=== PATIENT | female | born 1940 | race Caucasian/White ===

== ENCOUNTER 2019-03-07 11:24 | Emergency (ER) | payer MEDICARE ==
[~2019-03-07] VITALS: Ht 162.6 cm; Wt 93.4 kg
--- OUTSIDE RECORDS SUMMARY | ~2019-03-07 | XMS | Encounter Summary ---
Demographics + + + | Address | [address] | | | [place] [address] | + + + | Home Phone | | + + + | Preferred Language | Unknown | + + + | Marital Status | | + + + | Scientology Affiliation | Unknown | + + + | Race | White | + + + | Ethnic Group | Not or | + + + Author + + + | Author | [facility] | + + + | Organization | [facility] | + + + | Address | Unknown | + + + | Phone | Unavailable | + + + Support + + + + + | Name | Relationship | Address | Phone | + + + + + | Geoffrey Castillo | RENAE | [place] | | + + + + + Care Team Providers + +------+ + | Care Health Services Rn Name | Role | Phone | + +------+ + PCP | Unavailable | + +------+ + Encounter Details +--------+ + + + + | Date | Type | Department | Care Team | Description | +--------+ + + + + | 07/27/ | Office | [facility] | Note, Outpatient | Progress Note | | 1997 | Visit-Trans | MEDICINE | Clinic | | | | cribed | | | | +--------+ + + [...] documented as of this encounter Progress Notes Interface, Customer Service Security Officer In - 10/22/2006 1:06 AM PSTCLINIC DATE: 07/27/1998 PLASTIC SURGERY CLINIC SUBJECTIVE: Ms. Castillo returns today for follow-up of her left calf wound. Since her last visit, the wound has decreased in size substantially and appears to be healing very well. All of the areas of undermining have closed completely. The wound is now approximately 6 cm in length and 10-14 mm wide. There is no evidence of infection. She has fairly significant venous insufficiency of this leg with pitting edema. The patient will continue simple wound care of this wound and it may well heal on its own over the next several months. She is eager to try this rather than skin grafting. The patient will be changed to kerasol gel on the wound with overlying gauze and Kerlix wrap and to keep the bandage on her leg at all times. In addition, she will elevate her leg as much as possible. She will follow-up in two months time unless the wound has spontaneously healed, at which time she will cancel her further appointments. Kavon Melton M.D. Land Lease Information Clerk, Plastic and Reconstructive Surgery TOREY/nevin d ocumented in this encounter Plan of Treatment Not on filedocumented as of this encounter Visit Diagnoses Not on filedocumented in this encounter"
--- OUTSIDE RECORDS SUMMARY | ~2019-03-07 | XMS | Encounter Summary ---
Demographics + + + | Address | [address] | | | [place] [address] | + + + | Home Phone | | + + + | Preferred Language | Unknown | + + + | Marital Status | | + + + | Sabianism Affiliation | 1027 | + + + | Race | Unknown | + + + | Ethnic Group | Unknown | + + + Author + + + | Author | [facility] | | | and [place] | + + + | Organization | [facility] | | | [...] Team Providers + +------+ + | Care Leather Tooler Name | Role | Phone | + +------+ + | Jesus Mijares MD | PCP | Unavailable | + +------+ + Reason for Referral Diagnostic/Screening (Routine) +--------+--------+ + + + + | Status | Reason | Specialty | Diagnoses / | Referred By | Referred To | | | | | Procedures | Contact | Contact | +--------+--------+ + + + + | Closed | | Radiology | Diagnoses | | | | | | | | [place], | | | | | | Trochanteric | Nilson Jensen MD | | | | | | bursitis, | [address] | | | | | | right hip | [place] | | | | | | Procedures | [place] | | | | | | [place] | [address] | | | | | | and/or Inj | Phone: | | | | | | Major Joint | [phone] | | | | | | Right | Fax: | | | | | | | [phone] | | +--------+--------+ + + + + Encounter Details +--------+ + + + + | Date | Type | Department | Care Team | Description | +--------+ + + + + | 03/03/ | Orders Only | [facility] | Nilson Chaudhry | Trochanteric | | 2019 | | PHYSIATRY [address] Naida Jensen MD [address] | bursitis, right hip | | | | [place], | [place] | (Primary Dx) | | | | [place] [address] | [address] | | | | | [phone] | | | +--------+ + + + [...] + +---------+ + | Alcohol Use | Drinks/We | oz/Week | Comments | | | ek | | | + + +---------+ + | No [...] | +--------+ + + + + | 06/02/ | Office | Physical Medicine | Capo Bermudez, | | | 2018 | Visit | and Rehabilitation | [address] | | | | | | [address] [place] | | | | | | [place] [address] | | | | | | [phone] | | | | | | | | +--------+ + + + + | 06/02/ | Appointment | Radiology | Capo Bermudez, | | | 2018 | | | JOHN-C [address] | | | | | | [address] [place] | | | | | | [place] [address] | | | | | | [phone] | | | | | | | | | | | | [employer]creational Facilities Motel ManagerJaspal | | +--------+ + + + + documented as of this encounter Results FL Asp and/or Inj Major Joint Right (03/03/2019 14:50 PDT) + + | Specimen | + + | | + + + + -+ | Narrative | Performed At | + + -+ | | [facility] | | 03/03/2019 TROCHANTERIC BURSA INJECTION CLINICAL HISTORY: ICD-10 CODES | | | M70.61, RIGHT TROCHANTERIC BURSITIS Rebecca Castillo presents to the | | | fluoroscopy suite for a fluoroscopically-guided trochanteric bursa | | | injection as part of conservative management for chronic pain and | | | trochanteric bursitis. After informed consent was obtained, the | | | patient laid in the supine position on the fluoroscopy table. The | | | greater trochanter was located under fluoroscopic guidance. The area | | | was prepped and draped in a sterile fashion. Then a 25-gauge 1.5 inch | | | needle was inserted into the region and approximately 3 mL buffered 1% | | | lidocaine was infused. Next a 3.5 inch 22-gauge spinal needle was | | | inserted into the bursa under fluoroscopic guidance. Confirmation into | | | the bursa was obtained with infusion of approximately 1 mL Omnipaque | | | contrast. Then, a combination of 1 mL of 40 mg/mL Kenalog and 4 mL 1% | | | lidocaine was infused. The patient tolerated the procedure well | | | without complications. Pre- and post-procedure blood pressure was | | | stable. The patient was given verbal as well as written followup | | | instructions. The patient reported some improvement in pain symptoms | | | post-procedure. Prior to the start of the procedure, the following | | | were performed or verified, including correct patient identity, | | | correct site/side marked and verified, agreement of the procedure to | | | be done, correct patient positioning and an accurate procedure consent | | | form. Any safety precautions based on clinical history and/or | | | medication use have been addressed. I personally performed the | | | procedure above. Estimated blood loss: MinimalComplications: | | | NoneFindings: As expectedAnesthesia: Local 1% Lidocaine | | |verified, agreement of the procedure to be done, correct patient | | |positioning and an accurate procedure consent form. Any safety precautions | | | | | |based on clinical history and/or medication use have been addressed. | | | | | |I personally performed the procedure above. | | | [...] + | Diagnosis | + + | Trochanteric bursitis, right hip - Primary | + + documented in this encounter"
--- OUTSIDE RECORDS SUMMARY | ~2019-03-07 | XMS | Encounter Summary ---
Demographics + + + | Address | [address] | | | [place] [address] | + + + | Home Phone | | + + + | Preferred Language | Unknown | + + + | Marital Status | | + + + | Adventist Affiliation | Unknown | + + + | Race | White | + + + | Ethnic Group | Not or | + + + Author + + + | Author | [facility] | + + + | Organization | [facility] | + + + | Address [...] Team Providers + +------+ + | Care Senior Mechanical Development Engineer Name | Role | Phone | + +------+ + PCP | Unavailable | + +------+ + Encounter Details +--------+ + + + + | Date | Type | Department | Care Team | Description | +--------+ + + + + | 08/11/ | Office | [facility] | Note, Outpatient | Progress Note | | 2000 | Visit-Trans | MEDICINE | Clinic | [...] as of this encounter Progress Notes Interface, Sign Wirer In - 07/17/2006 3:06 AM PDTCLINIC DATE: 08/11/2001 OTOLARYNGOLOGY CLINIC Rebecca is a 61-year-old woman who is seen because of left-sided conductive hearing loss. She has an air-bone gap of about 30 or 40 dB on that side. She had a previous discussion about possibility of this representing otosclerosis and her fact that she was eligible for an exploration of the ear. We again reviewed all the PAR workup on her. She had no questions. We discussed the approach of the surgery at great length. She is to be done under general anesthesia in the morning. Jayson Mccoy M.D. SHAJI / CHARY [id number] / [id number] / [id number] / [id number] signed by Interface, Sign Wirer In at 07/17/2006 3:06 AM PDTdoc umented in this encounter Plan of Treatment Not on filedocumented as of this encounter Visit Diagnoses Not on filedocumented in this encounter"
--- OUTSIDE RECORDS SUMMARY | ~2019-03-07 | XMS | Clinical Summary ---
Demographics + + + | Address | [address] | | | [place] [address] | + + + | Home Phone | | + + + | Preferred Language | Unknown | + + + | Marital Status | | + + + | Mu-Ism Affiliation | Unknown | + + + | Race | White | + + + | Ethnic Group | Not or | + + + Author + + + | Author | [facility] | + + + | Organization | [facility] | + + + | Address | Unknown | + + + | Phone | Unavailable | + + + Support + + + + + | Name | Relationship | Address | Phone | + + + + + | Geoffrey Castillo | ECON | [place] | | + + + + + Care Team Providers + +------+ + | Care Brick And Block Mason Name | Role | Phone | + +------+ + PP | Unavailable | + +------+ + Source Comments CHAPITO is fully live on both [facility] and [facility] Allergies Not on File Medications Not on file Active Problems Not on file Social History + +-------+ +--------+------+ | Tobacco [...] recent travel history available. | + + Plan of Treatment + + + + + | Health Maintenance | Due Date | Last Done | Comments | + + + + + | Pneumococcal (Adult) | 02/25/ | | | | (1 of 2 - PCV13) | 7 | | | + + + + + | Influenza (Flu) | | | | | vaccination (Season | 9 | | | | Ended) | | | | + + + + + Results Not on filefrom Last 3 Months"
--- OUTSIDE RECORDS SUMMARY | ~2019-03-07 | XMS | Encounter Summary ---
Demographics + + + | Address | [address] | | | [place] [address] | + + + | Home Phone | | + + + | Preferred Language | Unknown | + + + | Marital Status | | + + + | Congregational Affiliation | 1027 | + + + [...] Team Providers + +------+ + | Care Rn Palliative Name | Role | Phone | + +------+ + | Jesus Mijares MD | PCP | Unavailable | + +------+ + Reason for Referral Evaluate & Treat (Routine) + + + + + + + | Status | Reason | Specialty | Diagnoses / | Referred By | Referred To | | | | | Procedures | Contact | Contact | + + + + + + + | Authorized | Specialty | Orthopedic | Diagnoses | [place], | [facility] | | | Services | Surgery | Rotator | GAMALIEL Scanlon | Orthopedic | | | Required | | cuff | [address] | | | | | syndrome of | [address] | [address] | | | | | both | [address] | [place], | | | | | shoulders | [place], | [place] | | | | | Chronic left | [place] [address] | [address] | | | | | shoulder | Phone: | Phone: | | | | | pain | [phone] | [phone] | | | | | | Fax: | Fax: | | | | | | [phone] | [phone] | + + + + + + + Reason for Visit + + + | Reason | Comments | + + + | Follow-up | Same Day Injection: BILATERAL L4/L5 TFESI | + + + Encounter Details +--------+---------+ + + + | Date | Type | Department | Care Team | Description | +--------+---------+ + + + | 03/03/ | Office | [facility] | Capo Bermudez, | Lumbar radiculopathy | | 2019 | Visit | PHYSIATRY [address] | PA-C [address] | (Primary Dx); | | | | [place], | [address] [place] | Rotator cuff | | | | [place] [address] | [place] [address] | syndrome of both | | | | [phone] | [phone] | shoulders; Chronic | | | | | | left shoulder pain; | | | | | | Elevated INR | +--------+---------+ + + + Social History [...] Filed Vital Signs + + + + | Vital Sign | Reading | Time Taken | + + + + | Blood Pressure | 120/79 | 03/03/20191304 PDT | + + + + | Pulse | 108 | 03/03/20191304 PDT | + + + + | Temperature | - | - | + + + + | Respiratory Rate | - | - | + + + + | Oxygen Saturation | - | - | + + + + | Inhaled Oxygen | - | - | | Concentration | | | + + + + | Weight | 72.6 kg (160 lb) | 03/03/20191304 PDT | + + + + | Height | 162.6 cm (5' 4") | 03/03/2019 1305 PDT | + + + + | Body Mass Index | 27.46 | 03/03/2019 1305 PDT | + + + + documented in this encounter Patient Instructions Patient Instructions Capo Bermudez PA-C - 03/03/2019 13:00 PDTReturn in 3 months for repea t injections. Referral to orthopedic surgeon placed today for left/right shoulder pain. Possible Causes of Low Back or Leg Pain BIG: The symptoms in your back or leg may be due to pressure on a nerve. This pressure may be caused by a damaged disk or by abnormal bone growth. Either way, you may feel pain, burni ng, tingling, or numbness. If you have pressure on a nerve that connects to the sciatic nerv e, pain may shoot down your leg. Pressure from the disk Constant wear and tear can weaken a disk over time and cause back pain. The disk can then b e damaged by a sudden movement or injury. If its soft center starts to bulge, the disk may p ress on a nerve. Or the outside of the disk may tear, and the soft center may squeeze throug h and pinch a nerve. Pressure from bone As a disk wears out, the vertebrae right above and below the disk start to touch. This can put pressure on a nerve. Often, abnormal bone (called bone spurs) grows where the vertebrae rub against each other. This can cause the foramen or the spinal canal to narrow (called andrzej nosis) and press against a nerve. Date Last Reviewed: 12/12/201719993171-7782 [employer]. [address] [place] [address], [place] [address]. All [facility] ts reserved. This information is not intended as a substitute for professional medical care. Always follow your healthcare professional's instructions. documented in this encounter Progress Notes Capo Bermudez PA-C - 03/03/2019 1300 PDTFormatting of this note might be different from [facility] original. CHIEF COMPLAINT: Chief Complaint Patient presents with Follow-up Same Day Injection: BILATERAL L4/L5 TFESI HISTORY OF PRESENT ILLNESS: The patient is a 79 y.o. female being seen today in follow-up for complaints of low back pa in, trochanteric bursa injection and right subacromial bursa injection, and same day bilater al L4/5 TFESI. Previously it was recommended that she receive bilateral L4/L5 epidural inje ction for spinal stenosis. She last received this last 11/2018. She reports excellent relief for 3 months. She also reports bilateral shoulder pain. She describes the pain as a constant dull with occasional sharpness depending on movement. Her symptoms worsen with standing and walking and lying on her sides at night. Her symptom s improve with rest, sitting down. She has a hard time standing for long periods in her ki tchen. The patient does describe numbness of the bilateral lower extremities, but reports to have diabetic neuropathy, and does report this improved after the surgery. She does report weakness of the bilateral legs, but reports again this did improve after [facility] surgery. The patient does not report recent falls or trauma. She does not have bowel and bladder dysfunction. She does not have saddle anesthesia. Treatments for these complaints have included 8 weeks of physical therapy after her lumbar fusion. Lumbar [place] L4/L5 [place] [address] Yong Pena in [place], use of hydrocodone 3 x/day and flexeril, [...] updated as appropriate. CURRENT MEDICATIONS: Current Outpatient Medications Medication Sig Dispense Refill acetaminophen (TYLENOL) 500 mg tablet Take 500 mg by mouth every 6 hours as needed for Pain. allopurinol (ZYLOPRIM) 100 mg tablet TAKE ONE TABLET BY MOUTH ONCE DAILY amitriptyline (ELAVIL) 25 mg tablet Take 25 [...] mg tablet Take 25 mg by mouth. magnesium chloride (MAG64) 64 mg EC tablet Take 128 mg by mouth. potassium chloride (KLOR-CON M20) 20 mEq ER tablet Take 20 mEq by mouth. sotalol (BETAPACE) 80 mg tablet Take 80 mg by mouth 2 times daily. torsemide (DEMADEX) 20 mg tablet Take 20 mg by mouth 3 times daily. traZODone (DESYREL) 50 mg tablet Take 100 mg by mouth nightly. warfarin (COUMADIN) 4 MG tablet Take 4 mg by mouth Daily. 4mg daily Saturday, 6 mg rest of the days No current facility-administered medications for this visit. ALLERGIES: Allergies Allergen Reactions Sitagliptin Rash Penicillin V Potassium Sulfa Antibiotics REVIEW OF [...] HEMATOLOGIC/LYMPHATIC: No abnormal bleeding PHYSICAL EXAMINATION: Vitals: 03/03/19 1305 BP: 120/79 Pulse: 108 PainSc: 8 PainLoc: Back INR level today : 1.0 GENERAL: The patient is well developed and [...] has no apparent deficits with short or nursing home memory. She has appropriate fund of [...] facet loading was positive. Strength testing showed 4/5 strength throughout the lower extremities. The patient was unable to heel and toe walk without difficulty. [...] multi-level facet arthritis. ASSESSMENT: 1. Lumbar radiculopathy PLAN: 1. Patient will undergo L4/L5 bilateral epidural injections today as this has worked in past. The patient has had significant conservative care including medications (NSAIDS and narcoti cs), PT (multiple sessions over the years) and respiratory care program director. Unfortunately she continue s to have significant discomfort. It appears to me that the pain is primarily coming from t he central spinal stenosis at L3/L4. I did feel that she would be a good candidate for inte rventional procedures as the last epidural injection greatly helped. 2. INR today was: 1.0 3. Patient will follow up in 3 months for repeat procedure. I encouraged her to complete DE XA scan prior to next appt. . Repeat bilateral L4-5 TFESI ordered to be done in May 2019. 4. Patient was referred to orthopedics for bilateral shoulder eval. Left shoulder xrays ord ered today. I spent 30 minutes in visit with Rebecca Castillo today with the majority of time spent coun selling the patient on her diagnosis, options for her care, and coordinating her care. ELECTRONICALLY SIGNED BY: Capo Bermudez PA-C, 03/03/2019 CC:Jesus Mijares MD 13 :40 PDTdocumented in this encounter Plan of Treatment +--------+ + + + + | Date | Type | Specialty | Care Team | Description | +--------+ + + + + | 06/02/ | Office | Physical Medicine | Capo Bermudez, | | | 2019 | Visit | and Rehabilitation | PA-C [address] | | | | | | [address] [place] | | | | | | [place] [address] | | | | | | [phone] | | | | | | | | +--------+ + + + + | 06/02/ | Appointment | Radiology | Capo Bermudez, | | | 2019 | | | PA-C [address] | | | | | | [address] [place] | | | | | | [place] [address] | | | | | | [phone] | | | | | | | | | | | | [employer], [facility] | | +--------+ + + + + + +--------+ + + | Name | Priori | Associated Diagnoses | Order Schedule | | | ty | | | + +--------+ + + | XR Shoulder Left 2 + Vw | Routin | Chronic left | Expected: | | | e | shoulder pain | 03/03/2019, Expires: | | | | | 03/03/2020 | + +--------+ + + | FL SRINIVAS Lumbar Transforaminal | Routin | Lumbar | Expected: | | | e | radiculopathy | 03/03/2019, Expires: | | | | | 03/03/2020 | + +--------+ + + | POC Fingerstick INR | Routin | Elevated INR | Ordered: 03/03/2019 | | | e | | | + +--------+ + + + +--------+ + + | Name | Priori | Associated Diagnoses | Order Schedule | | | ty | | | + +--------+ + + | * [facility] Orthopedic Surgery - | Routin | Rotator cuff | Ordered: 03/03/2019 | | AMB Referral | e | syndrome of both | | | | | shoulders Chronic | | | | | left shoulder pain | | + +--------+ + + documented as of this encounter Visit Diagnoses + + | Diagnosis | + + | Lumbar radiculopathy - Primary Thoracic or lumbosacral neuritis or radiculitis, | | unspecified | + + | Rotator cuff syndrome of both shoulders | + + | Chronic left shoulder pain Pain in joint, shoulder region | + + | Elevated INR Abnormal coagulation profile | + + documented in this encounter
--- OUTSIDE RECORDS SUMMARY | ~2019-03-07 | XMS | Encounter Summary ---
Demographics + + + | Address | [address] | | | [place] [address] | + + + | Home Phone | | + + + | Preferred Language | Unknown | + + + | Marital Status | | + + + | Jainism Affiliation | 1027 | + + + | Race | Unknown | + + + | Ethnic Group | Unknown | + + + Author + + + | Author | [facility] [employer] | + + + | Organization | [facility] | + + + | Address | [...] | | + + +---------+ + | David Mariano | ECON | Unknown | | + + +---------+ + Care Team Providers + +------+ + | Care Suit Maker Name | Role | Phone | + +------+ + | Jesus Mijares MD | PCP | Unavailable | + +------+ + Encounter Details +--------+ + + + + | Date | Type | Department | Care Team | Description | +--------+ + + + + | 12/08/ | Orders Only | [facility] | [place], | CKD (chronic kidney | | 2019 | | [address] | [place] | disease) stage 3, | | | | [address] | | GFR 30-59 ml/min; | | | | [place] [address] | | Essential | | | | [phone] | | hypertension, | | | | | | benign; | | | | | | Hypomagnesemia; | | | | | | Hypokalemia | +--------+ + + + + Social [...] + + +---------+ + | No | 0 | 0.0 | | | | Standard | | | | | drinks or | | | | | | | | | | equivalen | | | | | t | | | + + +---------+ + + + + | Sex Assigned at | Date Recorded | | | | + + + | Not on file | | + + + as of this encounter Plan of Treatment +--------+ + + + + | Date | Type | Specialty | Care Team | Description | +--------+ + + + + | 03/24/ | Office | Cardiology | Rajendra Fowler, | | | 2019 | Visit | | MD [address] | | | | | | [place], | | | | | | [place] [address] | | | | | | [phone] | | | | | | | | +--------+ + + + + | 06/11/ | Documentati | Cardiology | | | | 2018 | on Only | | | | +--------+ + + + + | 09/01/ | Office | Cardiology | Mary Moe NP | | | 2019 | Visit | | [address] | | | | | | [place] | | | | | | [address] | | | | | | | | +--------+ + + + + | 09/01/ | Documentati | Cardiology | | | | 2019 | on Only | | | | +--------+ + + + + | 09/10/ | Documentati | Cardiology | | | | 2019 | on Only | | | | +--------+ + + + + | 12/10/ | Documentati | Cardiology | | | | 2019 | on Only | | | | +--------+ + + + + as of this encounter Procedures + +--------+ + + + | Procedure Name | Priori | Date/Time | Associated Diagnosis | Comments | | | ty | | | | + +--------+ + + + | PROTEIN / CREATININE | Routin | 12/05/2018 | CKD (chronic | Results for this | | RATIO, URINE | e | 12:30 PM | kidney disease) | procedure are in the | | | | PST | stage 3, GFR 30-59 | results section. | | | | | ml/min Essential | | | | | | hypertension, benign | | | | | | Hypomagnesemia | | | | | | Hypokalemia | | + +--------+ + + + | CBC W/AUTO DIFF | Routin | 12/05/2018 | CKD (chronic | Results for this | | (REFLEX TO MANUAL) | e | 12:30 PM | kidney disease) | procedure are in the | | | | PST | stage 3, GFR 30-59 | results section. | | | | | ml/min Essential | | | | | | hypertension, benign | | | | | | Hypomagnesemia | | | | | | Hypokalemia | | + +--------+ + + + | PTH INTACT NO | Routin | 12/05/2018 | CKD (chronic | Results for this | | CALCIUM | e | 12:30 PM | kidney disease) | procedure are in the | | | | PST | stage 3, GFR 30-59 | results section. | | | | | ml/min Essential | | | | | | hypertension, benign | | | | | | Hypomagnesemia | | | | | | Hypokalemia | | + +--------+ + + + | MAGNESIUM | Routin | 12/05/2018 | CKD (chronic | Results for this | | | e | 12:30 PM | kidney disease) | procedure are in the | | | | PST | stage 3, GFR 30-59 | results section. | | | | | ml/min Essential | | | | | | hypertension, benign | | | | | | Hypomagnesemia | | | | | | Hypokalemia | | + +--------+ + + + | RENAL FUNCTION PANEL | Routin | 12/05/2018 | CKD (chronic | Results for this | | | e | 12:30 PM | kidney disease) | procedure are in the | | | | PST | stage 3, GFR 30-59 | results section. | | | | | ml/min Essential | | | | | | hypertension, benign | | | | | | Hypomagnesemia | | | | | | Hypokalemia | | + +--------+ + + + in this encounter Results Protein / creatinine ratio, urine (12/05/2018 12:30 PM) + +-------+ + + | Component | Value | Ref Range | Performed At | + +-------+ + + | UR | 141.7 | 0 - 150 | [facility] | | PROTEIN/CREATININE | | | LABORATORY | + +-------+ + + + + | Specimen | + + | Urine | + + + + + + + | Performing | Address | City/State/Zipcode | Phone Number | | Organization | | | | + + + + + | [facility] | [address] | [place] [address] | [phone] | | LABORATORY | [address] | | | + + + + + Renal function panel (12/05/2018 12:30 PM) + +---------+ + + | Component | Value | Ref Range | Performed At | + +---------+ + + | GLUCOSE | 117 (A) | 70 - 100 mg/dL | [facility] | | | | | LABORATORY | + +---------+ + + | BUN | 19 | 6 - 23 mg/dL | [facility] | | | | | LABORATORY | + +---------+ + + | CREATININE | 0.87 | 0.70 - 1.18 mg/dL | [facility] | | | | | LABORATORY | + +---------+ + + | PHOSPHORUS | 4.1 | 2.5 - 5.0 mg/dL | [facility] | | | | | LABORATORY | + +---------+ + + | Albumin | 4.0 | 3.5 - 5.0 | [facility] | | | | | LABORATORY | + +---------+ + + | SODIUM | 143 | 132 - 143 mmol/L | [facility] | | | | | LABORATORY | + +---------+ + + | POTASSIUM | 4.2 | 3.6 - 5.1 mmol/L | [facility] | | | | | LABORATORY | + +---------+ + + | CHLORIDE | 98 | 95 - 112 mmol/L | [facility] | | | | | LABORATORY | + +---------+ + + | CO2 | 30 | 19 - 31 mmol/L | [facility] | | | | | LABORATORY | + +---------+ + + | ANION GAP AGAP | 19.2 | 7 - 21 mmol/L | [facility] | | | | | LABORATORY | + +---------+ + + | GFR MDRD Non Af Amer | | | [facility] | | | | | LABORATORY | + +---------+ + + | Phosphorus,Inorganic | | | [facility] | | | | | LABORATORY | + +---------+ + + | BUN/CREAT | 21.8 | 6.0 - 28.6 | [facility] | | | | | LABORATORY | + +---------+ + + | CALCIUM | 9.9 | 8.5 - 10.3 mg/dL | [facility] | | | | | LABORATORY | + +---------+ + + | EGFR | 63 | 60 - 140 mg/dL | [facility] | | | | | LABORATORY | + +---------+ + + + + | Specimen | + + | Blood | + + + + + + + | Performing | Address | City/State/Zipcode | Phone Number | | Organization | | | | + + + + + | [facility] | [address] | [place] [address] | [phone] | | LABORATORY | [address] | | | + + + + + Magnesium (12/05/2018 12:30 PM) + +-------+ + + | Component | Value | Ref Range | Performed At | + +-------+ + + | MAGNESIUM | 1.7 | 1.7 - 2.5 mg/dL | [facility] | | | | | LABORATORY | + +-------+ + + + + | Specimen | + + | Blood | + + + + + + + | Performing | Address | City/State/Zipcode | Phone Number | | Organization | | | | + + + + + | [facility] | [address] | [place] [address] | [phone] | | LABORATORY | [address] | | | + + + + + CBC W/Auto Diff (Reflex to Manual) (12/05/2018 12:30 PM) + + + + + | Component | Value | Ref Range | Performed At | + + + + + | WBC | 8.6 | 4.5 - 11.0 10^3/mL | [facility] | | | | | LABORATORY | + + + + + | RBC | 4.47 | 3.8 - 5.1 10^6/ L | [facility] | | | | | LABORATORY | + + + + + | HGB | 14.2 | 12.0 - 16.0 g/dL | [facility] | | | | | LABORATORY | + + + + + | HCT | 41.8 | 35 - 45 % | [facility] | | | | | LABORATORY | + + + + + | MCV | 93.6 | 81 - 99 fL | [facility] | | | | | LABORATORY | + + + + + | MCH | 32 | 27 - 33 pg | [facility] | | | | | LABORATORY | + + + + + | MCHC | 34 | 30 - 36 g/dL | [facility] | | | | | LABORATORY | + + + + + | PLT | 271 | 140 - 440 K/ L | [facility] | | | | | LABORATORY | + + + + + | RDW SD | 13.2 | 10.5 - 15.0 % | [facility] | | | | | LABORATORY | + + + + + | MPV | | fL | [facility] | | | | | LABORATORY | + + + + + | DIFF TYPE | | | [facility] | | | | | LABORATORY | + + + + + | NEUTROPHILS | 69.3 | 39 - 80 % | [facility] | | | | | LABORATORY | + + + + + | LYMPHOCYTES | 21.0 (A) | 24 - 44 % | [facility] | | | | | LABORATORY | + + + + + | MONOCYTES | 7.7 | 0 - 12 % | [facility] | | | | | LABORATORY | + + + + + | EOSINOPHILS | 1.2 | 0 - 6 % | [facility] | | | | | LABORATORY | + + + + + | BASOPHILS | 0.8 | 0 - 2 % | [facility] | | | | | LABORATORY | + + + + + | NEUTROPHILS ABS | | / L | [facility] | | | | | LABORATORY | + + + + + | LYMPHOCYTES ABS | | / L | [facility] | | | | | LABORATORY | + + + + + | MONOCYTES ABS | | / L | [facility] | | | | | LABORATORY | + + + + + | EOSINOPHILS ABS | | / L | [facility] | | | | | LABORATORY | + + + + + | BASOPHILS ABS | | / L | [facility] | | | | | LABORATORY | + + + + + + + | Specimen | + + | Blood | + + + + + + + | Performing | Address | City/State/Zipcode | Phone Number | | Organization | | | | + + + + + | [facility] | [address] | [place] [address] | [phone] | | LABORATORY | [address] | | | + + + + + PTH intact no calcium (12/05/2018 12:30 PM) + +-------+ + + | Component | Value | Ref Range | Performed At | + +-------+ + + | PTH INTACT NO | 58.35 | 15 - 65 pg/mL | [facility] | | CALCIUM | | | LABORATORY | + +-------+ + + + + | Specimen | + + | Blood | + + + + + + + | Performing | Address | City/State/Zipcode | Phone Number | | Organization | | | | + + + + + | [facility] | [address] | [place] [address] | [phone] | | LABORATORY | [address] | | | + + + + + in this encounter Visit Diagnoses + + | Diagnosis | + + | CKD (chronic kidney disease) stage 3, GFR 30-59 ml/min | + + | Essential hypertension, benign | + + | Hypomagnesemia | + + | Disorders of magnesium metabolism | + + | Hypokalemia | + + | Hypopotassemia | + +"
--- OUTSIDE RECORDS SUMMARY | ~2019-03-07 | XMS | Encounter Summary ---
Demographics + + + | Address | [address] | | | [place] [address] | + + + | Home Phone | | + + + | Preferred Language | Unknown | + + + | Marital Status | | + + + | Zoroastrian Affiliation | Unknown | + + + | Race | White | + + + | Ethnic Group | Not or | + + + Author + + + | Author | [facility] | + + + | Organization | [facility] | + + + | Address | [...] Providers + +------+ + | Care Director Safety Council Name | Role | Phone | + +------+ + PCP | Unavailable | + +------+ + Encounter Details +--------+ + + + + | Date | Type | Department | Care Team | Description | +--------+ + + + + | 07/24/ | Office | [facility] | Note, [...] as of this encounter Progress Notes Interface, Multiskill Operator In - 07/17/2006 3:06 AM PDTCLINIC DATE: 07/24/2001 OTOLARYNGOLOGY CLINIC SUBJECTIVE: Mrs. Castillo is a 61-year-old woman who is being seen because of progressive hearing loss in the left ear. This has been going on for 15 plus years. She has had no hearing loss on the right. She has noted difficulty in groups and noisy situations, and she states that her hearing loss continues to increase. She denies history of any ear discharge. She has had no dizziness or unsteadiness. She did have frequent ear infections in her left ear as a child. She denies any head injury or noise exposure. Family history is negative for hearing loss. She has a low-grade tinnitus which is high frequency in that ear. REVIEW OF SYSTEMS: Relatively positive in that she has had cardiac problems including arrhythmia and a mild heart attack this March 2001. 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 She has had diabetes diagnosed over the last 3 to 4 months. She has had elevated blood pressure. She does have swelling in her legs and ankles as well. She denies any asthma or chest disease. She has had no renal pathology. She denies any neurologic stroke. She has never had hepatitis. MEDICATIONS: Acebutolol 200 mg once a day, spironolactone/hydrochlorothiazide 25/25 once a day, Atacand 32 mg a day, Actos for diabetes 30 mg once a day, Prevacid 30 mg daily, amitriptyline 25 mg daily, Premarin 1.2 mg daily, Lanoxin 0.25 mg Saturday, Saturday, and Saturday and 0.5 mg on Saturday, , Saturday, and Saturday. 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 ALLERGIES TO DRUGS AND MEDICINES: PENICILLIN/RASH. FOOD ALLERGIES: None. POLLEN ALLERGIES: None. HABITS: She takes 1 aspirin a day. Smoking: None. Alcohol: None. Caffeine: None. One-diet coke per day. PHYSICAL EXAMINATION: GENERAL: This is an alert 61-year-old woman in no acute distress. HEENT: Ears: External canals are intact and normal. Tympanic membranes appear intact with good motion. Nose is clear without obstruction. Mouth: She has full dentures. Mucosa appears to be normal. Palatal movement is clear. There is no evidence of any lesions. NECK: No unusual adenopathy. Thyroid is not enlarged. NEUROLOGIC: Cranial nerves 2 through 12 are intact and normal other than hearing on the left. DIAGNOSTIC DATA: Audiogram demonstrated a conductive hearing loss, left ear with an air-bone gap of 30 to 40 dB. Keita lateralizes to the left side, and the bone conduction is greater than air conduction on the left. 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 RECOMMENDATION: The patient is a candidate for exploration of the ear and probable stapedectomy. A PAR and discussion about otosclerosis was done at length. The patient seemed to have gathered good understanding about the procedure, and I had Naga Castro come and talk to her about scheduling surgery. Jayson Mccoy M.D. SHAJI / CHARY [id number] / [id number] / [id number] / [id number] signed by Interface, Multiskill Operator In at 07/17/2006 3:06 AM PDTdocume nted in this encounter Plan of Treatment Not on filedocumented as of this encounter Visit Diagnoses Not on filedocumented in this encounter"
--- OUTSIDE RECORDS SUMMARY | ~2019-03-07 | XMS | Encounter Summary ---
Demographics + + + | Address | [address] | | | [place] [address] | + + + | Home Phone | | + + + | Preferred Language | Unknown | + + + | Marital Status | | + + + | Sikh Affiliation | 1027 | + + + | Race | Unknown | + + + | Ethnic Group | Unknown | + + + Author + + + | Author | [facility] | + + + | Organization | [facility] [employer] | + + + | Address [...] Team Providers + +------+ + | Care Certified Activities Director Name | Role | Phone | [...] GFR 30-59 ml/min; | | | | [place] [address] | | Essential | | | | [phone] | | hypertension, | | | | [...] | | | | | | [place] [address] | | | | | | [phone] | | | | | | | [...] [place] | | | | | | [address] | | | | | | | [...] | + + + + + | [facility] | [address] | [place] [address] | [phone] | | LABORATORY | [address] | | [...] + + + | [facility] | [address] | [place] [address] | [phone] | | LABORATORY | [address] | | [...] + + + | [facility] | [address] | [place] [address] | [phone] | | LABORATORY | [address] | | [...] + + + | [facility] | [address] | [place] [address] | [phone] | | LABORATORY | [address] | | [...] + + + | [facility] | [address] | [place] [address] | [phone] | | LABORATORY | [address] | | [...]
--- OUTSIDE RECORDS SUMMARY | ~2019-03-07 | XMS | Encounter Summary ---
Demographics + + + | Address | [address] | | | [place] [address] | + + + | Home Phone | | + + + | Preferred Language | Unknown | + + + | Marital Status | | + + + | Mormon Affiliation | 1027 | + + + | Race | Unknown | + + + | Ethnic Group | Unknown | + + + Author + + + | Author | [facility] | | | and [place] | + + + | Organization | [facility] | | | [...] Providers + +------+ + | Care Senior Receptionist Name | Role | Phone | + +------+ + | Jesus Mijares MD | PCP | Unavailable | + +------+ + Reason for Visit + + + | Reason | Comments | + + + | Follow-up | Injections | + + + Encounter Details +--------+ + + + + | Date | Type | Department | Care Team | Description | +--------+ + + + + | 02/18/ | [facility] | [facility] [place] | Capo Bermudez, | Follow-up | | 2019 | | PHYSIATRY [address] | PA-C [address] | (Injections) | | | | [place], | [address] [place] | | | | | [place] [address] | [place] [address] | | | | | [phone] | [phone] | | | | | | | [...] 2019 | Visit | and Rehabilitation | [place] | | | | | | [place] | | | | | | [place] [address] | | | | | | [phone] | | | | | | | | +--------+ + + + + | 06/02/ | Appointment | Radiology | Capo Bermudez, | | | 2019 | | | [address] | | | | | | [address] [place] | | | | | | [place] [address] | | | | | | [phone] | | | | | | | | | | | | Occupational Therapy Co Director, [facility] | | +--------+ + + + + + +--------+ + + | Name | Priori | Associated Diagnoses | Order Schedule | | | ty | | | + +--------+ + + | DEXA Bone Density wo Vert Fx | Routin | residential current | Expected: | | Assmt | e | use of systemic | 02/18/2019, Expires: | | | | steroids Hx of | 02/19/2020 | | | | corticosteroid | | | | | therapy | | + +--------+ + + documented as of this encounter Visit Diagnoses + + | Diagnosis | + + | Hx of corticosteroid therapy Personal history of systemic steroid therapy | + + | 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
--- OUTSIDE RECORDS SUMMARY | ~2019-03-07 | XMS | Clinical Summary ---
Demographics + + + | Address | [address] | | | [place] [address] | + + + | Home Phone | | + + + | Preferred Language | Unknown | + + + | Marital Status | | + + + | Congregational Affiliation | Unknown | + + + | Race | White | + + + | Ethnic Group | Not or | + + + Author + + + | Author | [facility] | + + + | Organization | [facility] | + + + [...] Team Providers + +------+ + | Care Pony Ride Operator Name | Role | Phone | + +------+ + PP | Unavailable | + +------+ + Source Comments [facility] is fully live on both [facility] and [facility] Allergies Not on File Medications Not on [...]
--- OUTSIDE RECORDS SUMMARY | ~2019-03-07 | XMS | Encounter Summary ---
Demographics + + + | Address | [address] | | | [place] [address] | + + + | Home Phone | | + + + | Preferred Language | Unknown | + + + | Marital Status | | + + + | Temple Affiliation | 1027 | + + + | Race | Unknown | + + + | Ethnic Group | Unknown | + + + Author + + + | Author | [facility] | + + + | Organization | [facility] | + + + | Address [...] Team Providers + +------+ + | Care Workplace Relations Adviser Name | Role | Phone | + +------+ + | Jesus Mijares MD | PCP | Unavailable | + +------+ + Reason for Visit + + + | Reason | Comments | + + + | Medication Refill | | + + + Encounter Details +--------+--------+ + + + | Date | Type | Department | Care Team | Description | +--------+--------+ + + + | 01/04/ | Refill | [facility] [place] | Rajendra Fowler, | Medication Refill | | 2019 | | Cardiology [place] | [address] | | | | | [address] | [place], | | | | | [place] | [place] [address] | | | | | [address] | [phone] | | | | | [phone] | | | +--------+--------+ + + + Social History + +-------+ [...] Cardiology | Rajendra Fowler, | | | 2018 | Visit | | MD [address] | | | | | | [place] | | | | | | [place] [address] | | | | | | [phone] | | | | | | | | +--------+ + + + + | 06/11/ | Documentati | Cardiology | | | | 2018 | on Only | | | | +--------+ + + + + | 09/01/ | Office | Cardiology | Mary Moe NP | | | 2018 | Visit | | [address] | | | | | | [place] | | | | | | [address] | | | | | | | [...] + + + as of this encounter Visit Diagnoses Not on filein this encounter"
--- OUTSIDE RECORDS SUMMARY | ~2019-03-07 | XMS | Encounter Summary ---
Demographics + + + | Address | [address] | | | [place] [address] | + + + | Home Phone | | + + + | Preferred Language | Unknown | + + + | Marital Status | | + + + | Voodoo Affiliation | 1027 | + + + | Race | Unknown | + + + | Ethnic Group | Unknown | + + + Author + + + | Author | [facility] | | | and [place] | + + + | Organization | [facility] | | | [...] Team Providers + +------+ + | Care [employer] Name | Role | Phone | + [...] | | | | | | | [place], | | | | | | Trochanteric | Nilson Jensen MD | | | | | | bursitis, | [address] | | | | | | right hip | [address] [place] | | | | | | Procedures | [place], [place] | | | | | | [place] | [address] | | | | | | and/or Inj | Phone: | | | | | | Major Joint | [phone] | | | | | | Right | Fax: | | | | | | | [phone] | | +--------+--------+ + + + + [...] | | | | [place] | [address] | | | | | | and/or Inj | Phone: | | | | | | Major Joint | [phone] | | | | | | Right | Fax: | | | | | | | [phone] | | +--------+--------+ + + + + Reason for Visit Diagnostic/Screening (Routine) +--------+--------+ + + + + | Status | Reason | Specialty | Diagnoses / | Referred By | Referred To | | | | | Procedures | Contact | Contact | +--------+--------+ + + + + | Closed | | Radiology | Diagnoses | | | | | | | | [place], | | | | | | Trochanteric | Nilson Jensen MD | | | | | | bursitis, | [address] | | | | | | right hip | [place] | | | | | | Procedures | [place], [place] | | | | | | [place] | [address] | | | | | | and/or Inj | Phone: | | | | | | Major Joint | [phone] | | | | | | Right | Fax: | | | | | | | [phone] | | +--------+--------+ + + + + Encounter Details +--------+ + + + + | Date | Type | Department | Care Team | Description | +--------+ + + + + | 03/03/ | Hospital | [facility] | AidanTanyay, | Lumbar | | 2019 | Encounter | MED [facility] XRAY [address] | PA-C [address] | radiculopathy; | | | | [place] | [address] [place] | Trochanteric | | | | [place] [address] | [place] [address] | bursitis, right hip | | | | [phone] | [phone] | | | | | | | | | | | | Information Systems Coordinator, [facility] | | +--------+ + + + [...] | nightly. | | | 12 | | | tablet | | | [...] solution | mouth. | | | | | + + [...] mg tablet | | | | | | [...] mg | nightly. | | | | | | tablet | | | | | | + + + +---------+ + + | warfarin | Take 4 mg by mouth | | 0 | | | | (COUMADIN) 4 MG | Daily. 4mg daily | | | | | | tablet | Saturday, 6 mg [...] | | | | | [place] [address] | | | | | | [phone] | | | | | | | | +--------+ + + + + | 06/02/ | Appointment | Radiology | Capo Bermudez, | | | 2019 | | | PA-C [address] | | | | | | [address] [place] | | | | | | [place] [address] | | | | | | [phone] | | | | | | | | | | | | Information Systems Coordinator, [facility] | | +--------+ + + + [...] | | INJECTION MAJOR | e | 14:50 PDT | bursitis, right hip | procedure are in the | | JOINT RIGHT | | | | results section. | + +--------+ + + + | [place] EPIDURAL STEROID | Routin | 03/03/2019 | Lumbar | Results for this | | INJECTION LUMBAR | e | 14:50 PDT | radiculopathy | procedure are in the | | TRANSFORAMINAL | | | | results section. | + +--------+ [...] + + [place] SRINIVAS Lumbar Transforaminal (03/03/2019 14:50 PDT) + + | Specimen | + + | | + + + + -+ | Narrative | Performed At | + + -+ | 03/03/2019 | [facility] | | Bilateral Transforaminal Epidural Steroid Injections Diagnosis: Lumbar | | | radiculopathy ICD-10 Code M54.16 Rebecca Castillo presents to the | | [...] mg 10 mg, Other, | | 19 14:59 | | | | | ONCE, Sofie 03/03/19 at 1515, For 1 | | PDT | | | | | dose, [...] 4 mL 4 mL, | | 19 14:57 | | | | | INTRATHECAL, ONCE, 03/03/19 at | | PDT | | | | | 1515, For 1 dose | | | | | | + +-------+ +-------+---+---+ +---+---+ | | | +---+---+ + +-------+ +-------+---+---+ | lidocaine (PF) 1% injection 2 | Given | 03/03/20 | 2 mLs | | | | mL 2 mL, Other, ONCE, Tue | | 19 14:59 | | | | | 03/03/19 at 1515, For 1 dose | | PDT | | | | + +-------+ +-------+---+---+ +---+---+ | | | +---+---+ + +-------+ +-------+---+---+ | lidocaine (PF) 1% injection 2 | Given | 03/03/20 | 2 mLs | | | | mL 2 mL, Intra-articular, ONCE, | | 19 15:02 | | | | | 03/03/19 at 1515, For 1 dose | | PDT | | | | + +-------+ +-------+---+---+ +---+---+ | | | +---+---+ + +-------+ +-------+---+ + | lidocaine buffered 0.9% | Given | 03/03/20 | 6 mLs | | Other | | injection 6 mL 6 mL, | | 19 14:55 | | | (Comment | | Intradermal, ONCE, Sat03/03/19 at | | PDT | | | ) | | 1515, For 1 dose | | | | | | + +-------+ +-------+---+ + +---+---+ | | | +---+---+ + +-------+ +-------+---+---+ | triamcinolone acetonide | Given | 03/03/20 | 80 mg | | | | (KENALOG-40) 40 mg/mL injection | | 19 15:01 | | | | | 80 mg 80 mg, Intra-articular, | | PDT | | | | | ONCE, Sat03/03/19 at 1515, For 1 | | | | | | | dose, Shake well. Not for IV | | | | | | | use., | | | | | | + +-------+ +-------+---+---+ +---+---+ | | | +---+---+ documented in this encounter"
--- OUTSIDE RECORDS SUMMARY | ~2019-03-07 | XMS | Clinical Summary ---
Demographics + + + | Address | [address] | | | [place] [address] | + + + | Home Phone | | + + + | Preferred Language | Unknown | + + + | Marital Status | | + + + | [employer] Affiliation | 1027 | + + + | Race | Unknown | + + + | Ethnic Group | Unknown | + + + Author + + + | Author | [facility] | + + + | Organization | [facility] | + + + | Address [...] Team Providers + +------+ + | Care Veneer Clipper Name | Role | Phone | + +------+ + | Jesus Mijares MD | PP | Unavailable | + +------+ + Allergies + + + + + + | Active Allergy | Reactions | Severity | Noted | Comments | | | | | Date | | + + + + + + | Penicillins | Rash | Medium | 03/28/20 | | | | | | 15 | | + + + + + + | Sitagliptin | Rash | Medium | 10/21/19 | | | | | | 16 | | + + + + + + | Sulfa Antibiotics | Rash | Medium | 03/28/20 | | | | | | 15 | | + + + + + + Current Medications + + +--------+---------+------+------+-------+ | Prescription | Sig. | Disp. | Refills | Star | End | Statu | | | | | | t | Date | s | | | | | | Date | | | + + +--------+---------+------+------+-------+ | amitriptyline | Take 10 mg by mouth | | | | | Activ | | (ELAVIL) 10 MG | nightly. | | | | | e | | tablet | | | | | | | + + +--------+---------+------+------+-------+ | cyclobenzaprine | Take 10 mg by mouth | | | | | Activ | | (FLEXERIL) 10 MG | 3 (three) times | | | | | e | | tablet | daily as needed for | | | | | | | | Muscle spasms. | | | | | | + + +--------+---------+------+------+-------+ | | Take 1 tablet by | | | | | Activ | | HYDROcodone-acetamin | mouth every 4 (four) | | | | | e | | ophen (NORCO) 10-325 | hours as needed for | | | | | | | MG per tablet | Pain. | | | | | | + + +--------+---------+------+------+-------+ | acetaminophen | Take 500 mg by mouth | | | | | Activ | | (TYLENOL) 500 MG | as needed for Pain. | | | | | e | | tablet | | | | | | | + + +--------+---------+------+------+-------+ | baclofen | Take 20 mg by mouth | | | | | Activ | | (LIORESAL) 20 MG | nightly. | | | | | e | | tablet | | | | | | | + + +--------+---------+------+------+-------+ | losartan (COZAAR) | Take 25 mg by mouth | | | | | Activ | | 25 MG tablet | daily. | | | | | e | + + +--------+---------+------+------+-------+ | atorvastatin | Take 20 mg by mouth | | | | | Activ | | (LIPITOR) 20 MG | nightly. | | | | | e | | tablet | | | | | | | + + +--------+---------+------+------+-------+ | digoxin (LANOXIN) | Take 1 tablet by | 90 | 3 | 03/15 | 03/15 | Activ | | 0.125 MG tablet | mouth daily. At | tablet | | 11/02 | 11/02 | e | | | bedtime | | | 18 | 19 | | + + +--------+---------+------+------+-------+ | allopurinol | TAKE ONE TABLET BY | 90 | 3 | 04/13 | | Activ | | (ZYLOPRIM) 100 MG | MOUTH ONCE DAILY | tablet | | 8/20 | | e | | tablet | | | | 18 | | | + + +--------+---------+------+------+-------+ | sotalol (BETAPACE) | Take 1 tablet by | 180 | 3 | / | 04/13 | Activ | | 80 MG tablet | mouth every 12 | tablet | | 8/20 | 8/20 | e | | | (twelve) hours. | | | 18 | 19 | | + + +--------+---------+------+------+-------+ | magnesium chloride | Take 2 tablets by | 180 | 3 | /2 | 08 | Activ | | (MAG64) 64 mg EC | mouth daily. | tablet | | 2/20 | 2/20 | e | | tabletIndications: | | | | 18 | 19 | | | Hypomagnesemia | | | | | | | + + +--------+---------+------+------+-------+ | warfarin | Take 6 mg by mouth. | | | 10/0 | | Activ | | (COUMADIN) 6 MG | | | | 4/20 | | e | | tablet | | | | 18 | | | + + +--------+---------+------+------+-------+ | warfarin | Take 4 mg by mouth | | | | | Activ | | (COUMADIN) 4 MG | twice a week. | | | | | e | | tablet | | | | | | | + + +--------+---------+------+------+-------+ | traZODone | Take 1 tablet by | | | 11/1 | | Activ | | (DESYREL) 100 MG | mouth nightly. | | | 8/20 | | e | | tablet | | | | 18 | | | + + +--------+---------+------+------+-------+ | torsemide | Take 2 tablets by | 120 | 11 | 12/0 | | Activ | | (DEMADEX) 20 MG | mouth 2 (two) times | tablet | | 3/20 | | e | | tabletIndications: | daily. | | | 18 | | | | Edema | | | | | | | + + +--------+---------+------+------+-------+ | potassium chloride | Take 2 tablets by | 30 | 3 | 03/0 | 03/0 | Activ | | SA (K-DUR) 10 MEQ | mouth as needed. | tablet | | 6/20 | 5/20 | e | | tabletIndications: | | | | 19 | 20 | | | Hypokalemia | | | | | | | + + +--------+---------+------+------+-------+ | cloNIDine | Take 1 tablet by | 60 | 11 | 03/2 | | Activ | | (CATAPRES) 0.1 MG | mouth 2 (two) times | tablet | | 5/20 | | e | | tablet | daily. | | | 19 | | | + + +--------+---------+------+------+-------+ Active Problems + + + | Problem | Noted Date | + + + | Chronic diastolic heart failure (HCC) | 09/15/2018 | + + + | CAD (coronary artery disease) | 08/27/2018 | + + + | Hypomagnesemia | 06/04/2018 | + + + | Hypokalemia | 06/04/2018 | + + + | Cardiac pacemaker in situ | 09/03/2017 | + + + + ---------+ | Overview: Sylvia S-53 cm, model [id number], #[id number] lead was | | placed into the right ventricle and screwed intoposition on the | | septum, midway between the apex and outflow tract. Thefinal | | pacing threshold was 1 V at 0.5 msec, with R waves of 5.9 mV and | | theimpedance was 550 ohms. There was no diaphragmatic pacing at | | 10 V. LIAtronic model 5076-45 cm lead was placed into the high | | rightatrium and screwed into position anteriorly. The lead needed | | to berepositioned several times because of elevated thresholds | | in certainlocations. In the final location, the pacing threshold | | was 1.2 V at 0.5msec, and P waves were 1.9 mV with an impedance | | of 360 ohms. The leads were attached to a [employer] Etrinsa 8 | | , model 077062,serial #[id number] pacemaker. FINAL | | SETTINGS FOR THE DEVICEMode for pacing: DDD-CLS with a lower rate | | of 60 and an upper rate of 130beats per minute. Pacing and | | sensing will be bipolar in both chambers. I-OPT is turned on, | | tohopefully encourage intrinsic conduction through the AV node. | | The AV delayis intentionally programmed long for the same reason. | | The outputs will be 3V at 0.4 msec in both chambers. FINAL | | IMPRESSIONGood pacing and sensing thresholds. Appropriate device | | function seen.08/27/2018Normal lead thresholds and battery | | status. Device was adjusted to optimize battery length while | | maintaining adequate safety margins. Apacing 68%, RV pacing 55%. | | 8.4 years battery longevity. 2% burden of AF, fastest V-rate 112 | | bpm, longest episode 15 days. Extended AV delays today in IoPT | | mode to reduce RV pacing percentage | |Normal lead thresholds and battery status. Device was adjusted to optimize battery length w hile maintaining adequate safety margins. | |Apacing 68%, RV pacing 55%. 8.4 years battery longevity. 2% burden of AF, fastest V-rate 11 2 bpm, longest episode 15 days. Extended AV delays today in IoPT mode to reduce RV pacing pe rcentage | + ---------+ +---------+ + | Snoring | 03/20/2017 | +---------+ + + + | Overview: She snores and has daytime hypersomnolence. Feels | | fatigued a lot and takes naps most days. Probably has sleep | | apnea. Symptoms have worsened over the past 3 months, but have | | been present for the last 2 years. Needs a sleep study at some | | time. | + + + + + | Depression | 03/20/2017 | + + + + + | Overview: She has had no fun for quite a while. Does | | beadwork and watches TV.09/03/2017Enjoys making jewelry for her | | friends. | |Enjoys making jewelry for her friends. | + + + + + | Gastroesophageal reflux | 03/20/2017 | + + + + + | Overview: She has symptoms of gastroesophageal reflux. Takes | | Rolaids on a regular basis. | + + + + + | SSS (sick sinus syndrome) | 06/05/2016 | + + + + + | Overview: -- 2 Week Event Recorder (12/20/16): predominantly | | sinus bradycardia (78%), ave HR 52 bpm (max HR 78), with | | paroxysmal atrial fibrillation/flutter with RVR, (overall burden | | 1.93%), and episodes of PSVT, rare PVCs, PACs. The 2 pauses, 4.8 | | seconds duration, only occurred at the time of conversion from | | atrial flutter to sinus rhythm.-- 30 Day Event Recorder (starting | | 04/13/15): paroxysmal atrial fibrillation and atrial flutter, | | present for 76% of the time on with a rapid ventricular response, | | and an average VR of 105 bpm. The 7 reported symptoms did not | | clearly correspond to any notable occurrences in the setting of | | these atrial arrhythmias. NSR 24%.03/12/2017Recent event monitor | | shows evidence of chronotropic incompetence. She needs | | additional negative chronotropic agents to control her rhythm and | | that is impossible to safely prescribe, without a pacemaker.She | | reports symptoms consistent with symptomatic bradycardia | | secondary to sick sinus syndrome. The goals, risks and benefits | | of pacemaker implantation were discussed with the patient and she | | desires to proceed.03/04/2019status post permanent pacemaker | | implantation. Good heart rate histograms are documented given the | | CLS rate response algorithm on her Biotronik pacemaker. | + + + + + | Chronic idiopathic gout of foot | 01/16/2016 | + + + | Bilateral edema of lower extremity | 01/16/2016 | + + + | Chest pain, unspecified | 03/28/2015 | + + + | Bradycardia | 03/28/2015 | + + + | Essential hypertension, benign | 03/28/2015 | + + + | Other and unspecified hyperlipidemia | 03/28/2015 | + + + | Paroxysmal atrial fibrillation (HCC) | | + + + + + | Overview: Paroxysmal, "for most of my adult life", on Dig for | | > 40 years. Was dig toxic 3 years ago. Her INRs have been labile | | (3.2-1.6). The INR was 3.23 weeks ago, on 4 mg per day last | | week, it was 1.6, on 4 mg 6 days per week and 2 mg one day per | | weekRate is somewhat controlled on Acebutolol 200mg TID. | | Sometimes has heart rates of up to 160 bpm. Also has heart rates | | into the 40s and 50s associated with fatigue and decreased | | energy. CVASC- 6 (CHF, HTN, Age 77, DM2, Female). She had been on | | Eliquis, then Pradaxa for cost savings, but is now on warfarin | | due to the cost, followed at the [facility] | | clinic to monitor INR. No signs or symptoms of bleeding. Signs | | and symptoms of bleeding to report were discussed with the | | patient. LVEF is 65-70%. LA diam 4.3.cm. IVSd 1.22. Negative | | stress test in 03/29/15.EK01/08/17Heart rate 44 BPM, QRSD 92, | | QTC 437Marked sinus bradycardia with 1st degree A-V block | | Moderate voltage criteria for LVH, may be normal variant | | Nonspecific ST abnormality Abnormal ECG When compared with ECG of | | 29-MAR-2015 14:05, Criteria for Septal infarct are no longer | | Present Nonspecific T wave abnormality, improved in Lateral | | leads03/12/20171.9% burden on recent event monitor (both atrial | | flutter and atrial fibrillation were documented). After the | | pacemaker implantation, we will start Sotalol 80 mg BID and stop | | Acebutolol. In addition, we will increase her Losartan to 100mg | | nightly after pacemaker. Arrange sleep study to rule out DONAVON. | | Discontinue caffeine (loves hot chocolate). The risks, benefits, | | and rationale for pacemaker were discussed today.% | | burden of AF on her device (both atrial flutter and atrial | | fibrillation). On warfarin with a target INR of 2.0-3.0. No signs | | or symptoms of bleeding. Tolerating sotalol 80 mg twice daily. | | QTC Would not increase at this juncture given her chronic kidney | | disease. Continue digoxin. Her primary care provider and Dr. Fowler | | are closely monitoring her digoxin level. Signs and symptoms of | | digoxin toxicity to report were discussed with the patient today | | and she verbalized understanding.% burden of AF on her | | device (both atrial flutter and atrial fibrillation), rate | | controlled. On warfarin with a target INR of 2.0-3.0. No signs or | | symptoms of bleeding. Tolerating sotalol 80 mg twice daily. QTC | | 454, Would not increase at this juncture given her chronic kidney | | disease. Continue digoxin. Her primary care provider and | | Malcolm are closely monitoring her digoxin level. Signs and symptoms | | of digoxin toxicity to report were discussed with the patient | | today and she verbalized understanding. | + + + +---+ | Diabetes mellitus, type 2 | | + +---+ + + | Overview: was on insulin at one time, stopped after weight | | loss | + + + +---+ | Paroxysmal atrial flutter (HCC) | | + +---+ | Stage 2 chronic kidney disease | | + +---+ | CHF (congestive heart failure) | | + +---+ + + | Overview: Chronic Diastolic Heart Failure, predominantly | | right-sided sxs (edema)08/27/2018Euvolemic on examination today. | |Euvolemic on examination today. | + + Resolved Problems + + + + | Problem | Noted | Resolved | | | Date | Date | + + + + | DM (diabetes mellitus) | 03/28/20 | | | | 15 | 7 | + + + + | Hypertension | | | | | | 6 | + + + + + + | Overview: Essential | + + Encounters +--------+ + + + + | Date | Type | Specialty | Care Team | Description | +--------+ + + + + | 03/04/ | Documentati | | Marilin Garcia | Pacemaker Check (in | | 2019 | on Only | | | office) | +--------+ + + + + | 03/04/ | Office | | Mary Moe NP | Paroxysmal atrial | | 2018 | Visit | | | fibrillation (HCC) | | | | | | (Primary Dx); | | | | | | Encounter for | | | | | | monitoring digoxin | | | | | | therapy; Cardiac | | | | | | pacemaker in situ; | | | | | | SSS (sick sinus | | | | | | syndrome) | +--------+ + + + + | 01/05/ | Refill | | Suzanna De La O, | Medication Refill | | 2018 | | | MA | | +--------+ + + + + | 01/04/ | Refill | | Rajendra Fowler, | Medication Refill | | 2018 | | | MD | | +--------+ + + + + | 12/17/ | Office | | Veto Neri, | Stage 2 chronic | | 2019 | Visit | | WELLNESS SPECIALIST | kidney disease | | | | | | (Primary Dx); | | | | | | Bilateral edema of | | | | | | lower extremity; | | | | | | Essential | | | | | | hypertension, | | | | | | benign; Hypokalemia; | | | | | | Hypomagnesemia | +--------+ + + + + | 12/11/ | Documentati | | | Pacemaker Check | | 2019 | on Only | | | (remote ) | +--------+ + + + + | 12/08/ | Documentati | | Abraham | Carlos Only (12/05/18) | | 2019 | on Only | | ЕЛЕНА Jackson | | +--------+ + + + + | 12/08/ | Orders Only | | Abraham | CKD (chronic kidney | | 2018 | | | ЕЛЕНА Jackson | disease) stage 3, | | | | | | GFR 30-59 ml/min; | | | | | | Essential | | | | | | hypertension, | | | | | | benign; | | | | | | Hypomagnesemia; | | | | | | Hypokalemia | +--------+ + + + + from Last 3 Months Family History + + +------+ + | Medical History | Relation | Name | Comments | + + +------+ + | Hypertension | Brother | | | + + +------+ + | Stroke | Brother | | | + + +------+ + | Cancer | Brother | | | + + +------+ + | Hypertension | Mother | | | + + +------+ + | ADD / ADHD | Son | | | + + +------+ + | Hypertension | Son | | | + + +------+ + | Diabetes type II | Son | | | + + +------+ + | Hypertension | Son | | | + + +------+ + | ADD / ADHD | Son | | | + + +------+ + | Hypertension | Son | | | + + +------+ + + +------+ + + | Relation | Name | Status | Comments | + +------+ + + | Brother | | | | | | | (Age | | | | | 71) | | + +------+ + + | Brother | | | brain tumor | | | | (Age | | | | | 59) | | + +------+ + + | Father | | | Meningitis | | | | (Age | | | | | 28) | | + +------+ + + | Mother | | | "quit eating", failure to thrive | | | | (Age | | | | | 84) | | + +------+ + + | Son | | Alive | | + +------+ + + | Son | | Alive | | + +------+ + + | Son | | Alive | | + +------+ + + Social History + +-------+ +--------+------+ [...] on file | | + + + Last Filed Vital Signs + + + + | Vital Sign | Reading | Time Taken | + + + + | Blood Pressure | 132/70 | 03/04/2019 1:29 PM PDT | + + + + | Pulse | 60 | 03/04/2019 1:29 PM PDT | + + + + | Temperature | 36.2 C (97.1 F) | 06/04/2018 1:23 PM PDT | + + + + | Respiratory Rate | 20 | 09/23/2018 12:58 PM PST | + + + + | Oxygen Saturation | 96% | 03/04/2019 1:29 PM PDT | + + + + | Inhaled Oxygen | - | - | | Concentration | | | + + + + | Weight | 72.8 kg (160 lb 9.6 | 03/04/2019 1:29 PM PDT | | | oz) | | + + + + | Height | 162.6 cm (5' 4") | 03/04/2019 1:29 PM PDT | + + + + | Body Mass Index | 27.57 | 03/04/2019 1:29 PM PDT | + + + + Plan of Treatment +--------+ + + + + | Date | Type | Specialty | Care Team | Description | +--------+ + + + + | 03/24/ | Office | | Rajendra Fowler, | | | 2018 | Visit | | MD [address] | | | | | | [place] | | | | | | [place] [address] | | | | | | [phone] | | | | | | | | +--------+ + + + + | 06/11/ | Documentati | | | | | 2018 | on Only | | | | +--------+ + + + + | 09/01/ | Office | | Mary Moe NP | | | 2018 | Visit | | [address] | | | | | | [place] | | | | | | [address] | | | | | | | | +--------+ + + + + | 09/01/ | Documentati | | | | | 2018 | on Only | | | | +--------+ + + + + | 09/10/ | Documentati | | | | | 2018 | on Only | | | | +--------+ + + + + | 12/10/ | Documentati | | | | | 2019 | on Only | | | | +--------+ + + + + + + + + + | Health Maintenance | Due Date | Last Done | Comments | + + + + + | Diabetic Eye Exam | | | | | | 2 | | | + + + + + | Diabetic Foot Exam | | | | | | 2 | | | + + + + + | Microalbumin | | | | | Screening | 2 | | | + + + + + | Vaccine: | | | | | Dtap/Tdap/Td (1 - | 1 | | | | Tdap) | | | | + + + + + | Vaccine: Zoster (1 | | | | | of 2) | 2 | | | + + + + + | DEXA SCAN SCREENING | | | | | | 7 | | | + + + + + | Vaccine: | | | | | Pneumococcal 65+ | 7 | | | | Low/Medium Risk (1 | | | | | of 2 - PCV13) | | | | + + + + + | Hemoglobin A1c | | 03/12/2017, 11/01/2015, | | | | 7 | 03/29/2015 | | + + + + + | Vaccine: Influenza | | | | | (Season Ended) | 9 | | | + + + + + Implants + +--------+--------+ +--------+--------+--------+ | Implanted | Type | Area | Manufacture | Device | Expira | Model | | | | | r | | tion | / | | | | | | Identi | Date | Serial | | | | | | fier | | / Lot | + +--------+--------+ +--------+--------+--------+ | Rv Lead-03/20/2017Implanted: | Cardia | Heart | BIOTRONIK - | | | | | Qty: 1 on 03/20/2017 by | c | | BIOT | | | /[id number] | | Chuy Wills MD | Rhythm | | | | | 363 / | | | | | | | | | | | Manage | | | | | | | | ment | | | | | | + +--------+--------+ +--------+--------+--------+ | Ra Lead-03/20/2017Implanted: | Cardia | Heart | MEDTRONIC - | | | | | Qty: 1 on 03/20/2017 by | c | | MEDT | | | /[id number] | | Chuy Wills MD | Rhythm | | | | | [id number] | | | | | | | | / | | | Manage | | | | | | | | ment | | | | | | + +--------+--------+ +--------+--------+--------+ | Pacer-03/20/2017Implanted: Qty: | Cardia | Chest | BIOTRONIK - | | | | | 1 on 03/20/2017 by Johann, | jim | Wall | BIOT | | | /[id number] | | MD Chuy | Rhythm | | | | | 654 / | | | | | | | | | | | Manage | | | | | | | | ment | | | | | | + +--------+--------+ +--------+--------+--------+ Procedures + +--------+ + + + | Procedure Name | Priori | Date/Time | Associated Diagnosis | Comments | | | ty | | | | + +--------+ + + + | EKG STANDARD 12 LEAD | Routin | 03/04/2019 | Paroxysmal atrial | Results for this | | | e | 2:03 PM | fibrillation (HCC) | procedure are in the | | | | PDT | Encounter for | results section. | | | | | monitoring digoxin | | | | | | therapy | | + +--------+ + + + from Last 3 Months Results EK STANDARD 12 LEAD (03/04/2019 2:03 PM) + + + + + | Component | Value | Ref Range | Performed At | + + + + + | Ventricular Rate | 60 | BPM | [facility] | + + + + + | Atrial Rate | 357 | BPM | [facility] | + + + + + | P-R Interval | 270 | ms | [facility] | + + + + + | QRS Duration | 92 | ms | [facility] | + + + + + | Q-T Interval | 454 | ms | [facility] | + + + + + | QTC Calculation | 454 | ms | [facility] | | (Bezet) | | | | + + + + + | Calculated R Bonfield | 30 | degrees | [facility] | + + + + + | Calculated T Bonfield | 53 | degrees | [facility] | + + + + + | Diagnosis | Please refer to | | [facility] | | | Providers office visit | | | | | note for Providers | | | | | Interpretation.Confirmed | | | | | by [facility] Read Only, | | | | | [facility] ([id number]), | | | | | editorial assistant Kervin Coker | | | | | ([id number]) on 03/04/2019 | | | | | 2:26:07 PM | | | + + + + + + + + + + | Performing | Address | City/State/Zipcode | Phone Number | | Organization | | | | + + + + + | [facility] | [address] | [place] [address] | | + + + + + from Last 3 Months Insurance + +--------+ +------+-------+ + | Payer | Benefi | Subscriber | Type | Phone | Address | | | t Plan | ID | | | | | | / | | | | | | | Group | | | | | + +--------+ +------+-------+ + | MEDICARE | MEDICA | [id number] | | | [address] | | | RE | | | | [place] [address] | | | IP-OP | | | | | + +--------+ +------+-------+ + | UNITED HEALTHCARE | UNITED | [id number] | | | | | | | | | | | | | HEALTH | | | | | | | CARE - | | | | | | | AARP | | | | | + +--------+ +------+-------+ + + +--------+ +--------+ + + | Guarantor Name | Accoun | Relation to | Date | Phone | Billing Address | | | t Type | Patient | of | | | | | | | | | | + +--------+ +--------+ + + | SHAVONNE ESTEBAN | Person | Self [birth year] Home: | [address] | | | [place] | | 1940 | [phone] [place] | | | [place] | | | [phone] | [phone] | + +--------+ +--------+ + +
--- OUTSIDE RECORDS SUMMARY | ~2019-03-07 | XMS | Encounter Summary ---
Demographics + + + | Address | [address] | | | [place] [address] | + + + | Home Phone | | + + + | Preferred Language | Unknown | + + + | Marital Status | | + + + | Confucianism Affiliation | 1027 | + + + | Race | Unknown | + + + | Ethnic Group | Unknown | + + + Author + + + | Author | [facility] [employer] | + + + | Organization | [facility] | + + + | Address [...] Team Providers + +------+ + | Care Web Development Intern Name | Role | Phone | + [...] + | 01/04/ | Refill | [facility] | Rajendra Fowler, | Medication Refill | | 2019 | | [facility] | [address] | | | | | [address] | [place], | | | | | [place] | [place] [address] | | | | | [address] | [phone] | | | | | [phone] | | | +--------+--------+ + + + [...] | | | | | | [place] [address] | | | | | | [phone] | | | | | | | [...] [place] | | | | | | [address] | | | | | | | [...]
--- OUTSIDE RECORDS SUMMARY | ~2019-03-07 | XMS | Encounter Summary ---
Demographics + + + | Address | [address] | | | [place] [address] | + + + | Home Phone | | + + + | Preferred Language | Unknown | + + + | Marital Status | | + + + | Jew Affiliation | Unknown | + + + | Race | White | + + + | Ethnic Group | Not or | + + + Author + + + | Author | [facility] | + + + | Organization | [facility] | + + + | Address | Unknown | + + + | Phone | Unavailable | + + + Support + + + + + | Name | Relationship | Address | Phone | + + + + + | Geoffrey Castillo | RENAE | [place] | | + + + + + Care Team Providers + +------+ + | Care Engineering Project Manager Name | Role | Phone | + +------+ + PCP | Unavailable | + +------+ + Encounter Details +--------+ + + + + | Date | Type | Department | Care Team | Description | +--------+ + + + + | 06/29/ | Office | [facility] | Note, Outpatient | Progress Note | | 1998 | Visit-Trans | MEDICINE | Clinic | [...] as of this encounter Progress Notes Interface, Teacher Assistant In - 10/24/2006 3:06 AM PST [facility] Account No. PROGRESS RECORD Name Rebecca Castillo Birthdate 1940 Date Probl Time em FORMAT: PROBLEM NUMBER and TITLE: S=Subjective Number O=Objective A=Analysis P=Plans CLINIC DATE: 06/29/1998 PLASTIC SURGERY CLINIC SUBJECTIVE: Mrs. Castillo is a 58-year-old woman who sustained an injury to her left leg from a horse on 05/01/98. She sustained a distal fibular fracture that has been treated by Dr. Mena in [place], [place]. She also developed an 8 x 10 centimeter wound in the medial aspect of the middle third of the left lower leg. This wound has been treated with whirlpool and daily dressing changes consisting of damp gauze since the time of the injury. She reports that the wound has been getting substantially smaller over the last 3-4 weeks and that the skin has been pulling shut. She has had no fevers during this period of time. OBJECTIVE: On examination, she is a pleasant woman who has a 10 x 4 centimeter wound over the mid third of the medial aspect of the left lower leg. The wound is covered completely with healthy-appearing granulation tissue. There is a one-half centimeter tract extending approximately 1 centimeters inferiorly from the wound, another one-half centimeter tract extending approximately one centimeter superior to the wound, and a 1 centimeter wide tract extending two centimeters laterally on the lateral aspect of the wound. Probing of these wounds did not reveal any further extensions. There was no exposed bone within the wound. She has moderate edema of both legs. She has good dorsalis pedis and posterior tibial pulses. The feet are warm and pink and have good capillary refill. PLAN: 1. I had a discussion with Ms. Castillo regarding the various treatment options, including continued dressing care, skin graft, local fasciocutaneous flaps, or free tissue transfer. After our discussion, we came to a consensus that the best plan of action at this point would be continued wound care until the interstices of the wound filled with granulation tissue followed by subsequent skin grafting in a month or so. 2. I advised her that she should stop using hydrogen peroxide directly on the wound and that simple cleansing in the shower was more appropriate. 3. I also do not believe that she requires continued whirlpool therapy. 4. In addition, she stated that she felt quite comfortable doing her own dressing changes, and I think this would be quite reasonable. She will continue to use plain new gauze in the interstices of the wound and damp gauze on the remainder of the wound. 5. She will dress her leg with an MUNDO wrap anytime that she is up and she will attempt to elevate her left leg as much as is possible during the course of the days and evenings. 6. She will return in four weeks for a follow-up visit, or sooner if any problems develop. Kavon Melton M.D. Medicine Tech, Plastic and Reconstructive Surgery TOREY/michael d ocumented in this encounter Plan of Treatment Not on filedocumented as of this encounter Visit Diagnoses Not on filedocumented in this encounter"
--- OUTSIDE RECORDS SUMMARY | ~2019-03-07 | XMS | Encounter Summary ---
Demographics + + + | Address | [address] | | | [place] [address] | + + + | Home Phone | | + + + | Preferred Language | Unknown | + + + | Marital Status | | + + + | Spiritism Affiliation | 1027 | + + + | Race | Unknown | + + + | Ethnic Group | Unknown | + + + Author + + + | Author | [employer] | + + + | Organization | [facility] | + + + | Address | Unknown | + + + | Phone | Unavailable | + + + Support + + +---------+ + | Name | Relationship | Address | Phone | + + +---------+ + | Cruz Mariano | ECON | Unknown | | + + +---------+ + | Carmien Mariano | ECON | Unknown | | + + +---------+ + | David Mariano | ECON | Unknown | | + + +---------+ + Care Team Providers + +------+ + | Care Assurance Engineer Name | Role | Phone | + +------+ + | Jesus Eagle MD | PCP | Unavailable | + +------+ + Reason for Visit + + + | Reason | Comments | + + + | Follow-up | | + + + Encounter Details +--------+---------+ + + + | Date | Type | Department | Care Team | Description | +--------+---------+ + + + | 03/04/ | Office | [facility] | Mary Moe NP | Paroxysmal atrial | | 2019 | Visit | Card[facility] [place] | [address] | fibrillation (HCC) | | | | [address] | [place], [place] | (Primary Dx); | | | | [place], [place] | [address] | Encounter for | | | | [address] | | monitoring digoxin | | | | [phone] | | therapy; Cardiac | | | | | | pacemaker in situ; | | | | | | SSS (sick sinus | | | | | | syndrome) | +--------+---------+ + + + Social History [...] + + + as of this encounter Last Filed Vital [...] PM PDT | + + + + in this encounter Progress Notes Mary Moe NP - 03/04/2019 1:30 PM PDTFormatting of this note may be different from the original. ELECTROPHYSIOLOGY OUTPATIENT FOLLOW UP PATIENT NAME: Rebecca Castillo : 1940: AGE: 79 y.o. Phone- [phone] (home) Date of consultation: 03/04/2019 PRIMARY CARE: [facility] Requesting Physician: Jesus Eagle MD [address] [id number] SUMMARY OF EP RECOMMENDATIONS Continue Sotalol 80mg BID. QTC today 454 Appropriate Device Function- extension of AV delays to minimize RV pacing Follow up with EP in 6 months Patient Active Problem List Diagnosis Date Noted Chronic diastolic heart failure (HCC) 09/15/2018 CAD (coronary artery disease) 08/27/2018 Hypomagnesemia 06/04/2018 Hypokalemia 06/04/2018 Cardiac pacemaker in situ 09/03/2017 Setrox S-53 cm, model 126998, #[id number] lead was placed into the right ventricle and scre wed into position on the septum, midway between the apex and outflow tract. The final pacing threshold was 1 V at 0.5 msec, with R waves of 5.9 mV and the impedance was 550 ohms. There was no diaphragmatic pacing at 10 V. [employer] model 5076-45 cm lead was placed into the high right atrium and screwed into position anteriorly. The lead needed to be repositioned several times because of elevated thresholds in certain locations. In the final location, the pacing threshold was 1.2 V at 0.5 msec, and P waves were 1.9 mV with an impedance of 360 ohms. The leads were attached to a [employer] Etrinsa 8 DR.-T, model 347122, serial #[id number] pacemaker. FINAL SETTINGS FOR THE DEVICE Mode [...] and sensing thresholds. Appropriate device function seen. 08/27/2018 Normal lead thresholds and battery status. Device was adjusted to optimize battery length w hile maintaining adequate safety margins. Apacing 68%, RV pacing 55%. 8.4 years battery longevity. 2% burden of AF, fastest V-rate 11 2 bpm, longest episode 15 days. Extended AV delays today in IoPT mode to reduce RV pacing pe rcentage Snoring 03/20/2017 She snores and has daytime hypersomnolence. Feels fatigued a lot and takes naps most day s. Probably has sleep apnea. Symptoms have worsened over the past 3 months, but have been pr esent for the last 2 years. Needs a sleep study at some time. Depression 03/20/2017 She has had no fun for quite a while. Does beadwork and watches TV. 09/03/2017 Enjoys making jewelry for her friends. Gastroesophageal reflux 03/20/2017 She has symptoms of gastroesophageal reflux. Takes Rolaids on a regular basis. SSS (sick sinus syndrome) 06/05/2016 -- 2 Week Event Recorder (12/20/16): predominantly [...] the patient and she desires to proceed. 03/04/2019 status post permanent pacemaker implantation. Good heart rate histograms are documented giv en the CLS rate response algorithm on her Biotronik pacemaker. Chronic idiopathic gout of foot 01/16/2016 Bilateral edema of lower extremity 01/16/2016 CHF (congestive heart failure) Chronic Diastolic Heart Failure, predominantly right-sided sxs (edema) 08/27/2018 Euvolemic on examination today. Stage 2 chronic kidney disease Paroxysmal atrial flutter (HCC) Paroxysmal atrial fibrillation (HCC) Paroxysmal, "for most of my adult life", on Dig for > 40 years. Was dig toxic 3 years ago . Her INRs have been labile (3.2-1.6). The INR was 3.23 weeks ago, on 4 mg per day last week , it was 1.6, on 4 mg 6 days per week and 2 mg one day per week Rate is somewhat controlled on Acebutolol 200mg TID. Sometimes has heart rates of up to 1 60 bpm. Also has heart rates into the 40s and 50s associated with fatigue and decreased ener gy. CVASC- 6 (CHF, HTN, Age 77, DM2, Female). She had been on Eliquis, then Pradaxa for cost savings, but is now on warfarin due to the cost, followed at the [facility] to monitor INR. No signs or symptoms of bleeding. Signs and symptoms of bleeding to report were discussed with the patient. LVEF is 65-70%. LA diam 4.3.cm. IVSd 1.22. Negative stress test in 03/29/15. EK01/08/17 Heart rate 44 BPM, QRSD 92, QTC 437 Marked sinus bradycardia with 1st degree A-V block Moderate voltage criteria for LVH, may be normal variant Nonspecific ST abnormality Abnormal ECG When compared with ECG of 29-MAR-2015 14:05, Criteria for Septal infarct are no longer Present Nonspecific T wave abnormality, improved in Lateral leads 03/12/2017 1.9% burden on recent event monitor (both atrial flutter and atrial fibrillation were docum ented). After the pacemaker implantation, we will start Sotalol 80 mg BID and stop Acebutolo l. In addition, we will increase her Losartan to 100mg nightly after pacemaker. Arrange slee p study to rule out DONAVON. Discontinue caffeine (loves hot chocolate). The risks, benefits, a nd rationale for pacemaker were discussed today. 08/27/2018 3% burden of AF on her device (both atrial flutter and atrial fibrillation). On warfarin wi th a target INR of 2.0-3.0. No signs or symptoms of bleeding. Tolerating sotalol 80 mg twice daily. QTC Would not increase at this juncture given her chronic kidney disease. Continue d igoxin. Her primary care provider and Dr. Fowler are closely monitoring her digoxin level. Sig ns and symptoms of digoxin toxicity to report were discussed with the patient today and she verbalized understanding. 03/04/2019 2% burden of AF on her device (both atrial flutter and atrial fibrillation), rate controlle d. On warfarin with a target INR of 2.0-3.0. No signs or symptoms of bleeding. Tolerating so talol 80 mg twice daily. QTC 454, Would not increase at this juncture given her chronic kidn ey disease. Continue digoxin. Her primary care provider and Dr. Fowler are closely monitoring her digoxin level. Signs and symptoms of digoxin toxicity to report were discussed with the patient today and she verbalized understanding. Diabetes mellitus, type 2 was on insulin at one time, stopped after weight loss Chest pain, unspecified 03/28/2015 Bradycardia 03/28/2015 Essential hypertension, benign 03/28/2015 Other and unspecified hyperlipidemia 03/28/2015 HISTORY OF PRESENT ILLNESS: This patient presents 03/04/2019 reporting that she has been feeling okay. Making less jewe lry giving tremors in hands. She denies any severe palpitations. She notes that she has had tremendous improvement in her lower extremity edema since she started elevating her legs whe n she takes her water pill in the evenings. She denies any halos in her vision. Her coumadin was recently held as she had an epidural yesterdary. She denies any signs or symptoms of bl eeding. EK03/04/2019 personally reviewed and interpreted reveals AP-VS prolonged AV conduction VR 60, OR 270, QRSD 92, QTC 454 Allergies Allergen Reactions Penicillins Rash Sitagliptin Rash Sulfa Antibiotics Rash Current Medications Current Outpatient Prescriptions: acetaminophen (TYLENOL) 500 MG tablet, Take 500 mg by mouth as needed for Pain., Disp: , Rfl: allopurinol (ZYLOPRIM) 100 MG tablet, TAKE ONE TABLET BY MOUTH ONCE DAILY, Disp: 90 ta blet, Rfl: 3 amitriptyline (ELAVIL) 10 MG tablet, Take 10 mg by mouth nightly., Disp: , Rfl: atorvastatin (LIPITOR) 20 MG tablet, Take 20 mg by mouth nightly., Disp: , Rfl: baclofen (LIORESAL) 20 MG tablet, Take 20 mg by mouth nightly., Disp: , Rfl: cloNIDine (CATAPRES) 0.1 MG tablet, Take 1 tablet by mouth 2 (two) times daily., Disp: 60 tablet, Rfl: 11 cyclobenzaprine (FLEXERIL) 10 MG tablet, Take 10 mg by mouth 3 (three) times daily as needed for Muscle spasms., Disp: , Rfl: digoxin (LANOXIN) 0.125 MG tablet, Take 1 tablet by mouth daily. At bedtime, Disp: 90 tablet, Rfl: 3 HYDROcodone-acetaminophen (NORCO) 10-325 MG per tablet, Take 1 tablet by mouth every 4 (four) hours as needed for Pain., Disp: , Rfl: losartan (COZAAR) 25 MG tablet, Take 25 mg by mouth daily., Disp: , Rfl: magnesium chloride (MAG64) 64 mg EC tablet, Take 2 tablets by mouth daily., Disp: 180 tablet, Rfl: 3 potassium chloride SA (K-DUR) 10 MEQ tablet, Take 2 tablets by mouth as needed., Disp: 30 tablet, Rfl: 3 sotalol (BETAPACE) 80 MG tablet, Take 1 tablet by mouth every 12 (twelve) hours., Disp : 180 tablet, Rfl: 3 torsemide (DEMADEX) 20 MG tablet, Take 2 tablets by mouth 2 (two) times daily., Disp: 120 tablet, Rfl: 11 traZODone (DESYREL) 100 MG tablet, Take 1 tablet by mouth nightly., Disp: , Rfl: warfarin (COUMADIN) 4 MG tablet, Take 4 mg by mouth twice a week., Disp: , Rfl: warfarin (COUMADIN) 6 MG tablet, Take 6 mg by mouth., Disp: , Rfl: The past history, social history, and family history were reviewed and there are no change s of any significance. DATA: Laboratory values which I reviewed 03/04/2019 are as follows: Lab Results Component Value Date WBC 8.6 12/05/2018 RBC 4.47 12/05/2018 HGB 14.2 12/05/2018 HCT 41.8 12/05/2018 PLT 271 12/05/2018 Lab Results Component Value Date NA 143 12/05/2018 K 4.2 12/05/2018 CL 98 12/05/2018 CO2 30 12/05/2018 ANIONGAP 19.2 12/05/2018 GLUF 117 (A) 12/05/2018 BUN 19 12/05/2018 CREATININE 0.87 12/05/2018 BCR 21.8 12/05/2018 CA 9.9 12/05/2018 CA 9.7 03/14/2016 EGFR 63 12/05/2018 Lab Results Component Value Date CHOL 159 03/14/2016 TRIG 117 03/14/2016 LDL 73 03/14/2016 GLUF 117 (A) 12/05/2018 HGBA1C 7.3 (H) 03/12/2017 Lab Results Component Value Date CKTOTAL 48 03/29/2015 TSH 5.20 (H) 03/29/2015 ROS I have personally reviewed and agree with ROS listed by MA attached. All other systems are reviewed and negative except as above. PHYSICAL EXAM: BP 132/70 (BP Location: Left upper arm, Patient Position: Sitting) | Pulse 60 | Ht 1.626 m (5' 4") | Wt 72.8 kg (160 lb 9.6 oz) | SpO2 96% | BMI 27.57 kg/m Physical Exam Constitutional: She is oriented to person, place, and time. She appears well-developed and well-nourished. No distress. HENT: Head: Normocephalic and atraumatic. Eyes: Pupils are equal, round, and reactive to light. Conjunctivae are normal. Neck: Normal range of motion. No JVD present. No thyromegaly present. Cardiovascular: Normal rate, regular rhythm, normal heart sounds and intact distal pulses. Exam reveals no gallop and no friction rub. No murmur heard. Pulmonary/Chest: Effort normal and breath sounds normal. No respiratory distress. Abdominal: Soft. Bowel sounds are normal. She exhibits no distension. There is no tendernes s. Musculoskeletal: She exhibits edema. Neurological: She is alert and oriented to person, place, and time. Skin: Skin is warm and dry. No rash noted. No erythema. Left sided device is well healed. BLE edema 1+, chronic venous stasis changes of BLE Psychiatric: She has a normal mood and affect. Vitals reviewed. Mary Moe NP 03/04/2019 3:35 PM *This report has been prepared using a voice recognition system. The report was reviewed f or accuracy, however, sound-alike word errors, addition and/or deletions may occur. If there is any question about this report please contact me. Brittani Montana MA - 03/04/2019 1:30 PM PDTAncillary MA Note- Electrophysiology Patient ID: Rebecca Castillo is a 79 y.o. female. Review of Systems Constitutional: Negative for chills, fever, malaise/fatigue and weight loss. HENT: Negative for congestion and sore throat. Respiratory: Negative for cough and shortness of breath. Cardiovascular: Positive for leg swelling. Negative for chest pain and palpitations. Gastrointestinal: Negative for abdominal pain and blood [...] feel excessively tired during the day? (NO) in this encounter Plan of Treatment +--------+ + + + + | Date | Type | Specialty | Care Team | Description | +--------+ + + + + | 03/24/ | Office | Cardiology | Rajendra Fowler, | | | 2018 | Visit | | [address] | | | | | | [place], | | | | | | [place] [address] | | | | | | [phone] | | | | | | | [...] [place] | | | | | | [address] | | | | | | | [...] + + + in this encounter Results EKG STANDARD 12 LEAD (03/04/2019 2:03 PM) + [...] QTC Calculation | 454 | ms | [facility] EKG | | (Bezet) | | | | + + + + + | Calculated R [place] | 30 | degrees | [facility] EKG | + + + + + | Calculated T [place] | 53 | degrees | [facility] EKG | + + + + + | Diagnosis | Please refer to | | [facility] EKG | | | Providers office visit | | | | | note for Providers | | | | | Interpretation.Confirmed | | | | | by [facility] [place] Read Only, | | | | | [facility] [place] ([id number]), | | | | | deputy editor in chief Kervin Coker | | | | | ([id number]) on 03/04/2019 | | | | | 2:26:07 PM | | | + + + + + + + + + + | Performing | Address | City/State/Zipcode | Phone Number | | Organization | | | | + + + + + | [facility] | [address] | [place] [address] | | + + + + + in this encounter Visit Diagnoses + + | Diagnosis | + + | Paroxysmal atrial fibrillation (HCC) - Primary | + + | Atrial fibrillation | + + | Encounter for monitoring digoxin therapy | + + | Encounter for therapeutic drug monitoring | + + | Cardiac pacemaker in situ | + + | SSS (sick sinus syndrome) | + + | Sinoatrial node dysfunction | + +
--- OUTSIDE RECORDS SUMMARY | ~2019-03-07 | XMS | Encounter Summary ---
Demographics + + + | Address | [address] | | | [place] [address] | + + + | Home Phone | | + + + | Preferred Language | Unknown | + + + | Marital Status | | + + + | Rastafari Affiliation | 1027 | + + + | Race | Unknown | + + + | Ethnic Group | Unknown | + + + Author + + + | Author | [facility] | + + + | Organization | [facility] | + + + | Address [...] Providers + +------+ + | Care Medical Reception Specialist Name | Role | Phone | + +------+ + | Jesus Eagle MD | PCP | Unavailable | + +------+ + Reason for Visit + + + | Reason | Comments | + + + | Pacemaker Check | remote | + + + Encounter Details +--------+ + + + + | Date | Type | Department | Care Team | Description | +--------+ + + + + | 12/11/ | Documentati | [facility] | | Pacemaker Check | | 2019 | on Only | Card[facility] [place] | | (remote ) | | | | [address] | | | | | | [place], [place] | | | | | | [address] | | | | | | [phone] | | | +--------+ + + + [...] + + + as of this encounter Progress Notes Ignacio Benz - 12/11/2018 8:00 AM PSTFormatting of this note may be different from the o chineduinal. PACEMAKER REMOTE INTERROGATION REPORT Name: Rebecca Chanell Castillo PCP: [facility]LE : 1940 Primary cardiology provider: None Primary electrophysiology provider: Mary Moe Device project management it specialist: X5 [employer] Device type: Dual chamber Battery Longevity: ok 85% RA Pacin% RV Pacin% INTERROGATION RESULTS: Please see the full interrogation report attached Known history of atrial flutter or atrial fibrillation: Yes Current antithrombotic therapy including: warfarin Mode switches: ATAF 4% of day mean rate 76bpm. 19 mode switches a day. Two Atrail Arrhythmi a episodes per day. Since 08/28/2018 duration of longest atrial episode 15 hours 32 minutes no EGM. Longest available EGM is 3 minutes and 28 seconds on 09/03/[address] . . Ventricular high rate episodes: None. Lead function: Lead impedance and threshold value trends have been reviewed and are accepta ble based on most recent evaluation CHF: Congestive heart failure parameters and trends have been reviewed and are stable Follow up: The next scheduled interrogation will be in 90 day in office via remote transmi ssion. Additional comments: None. IMPRESSION: 1. Normal pacemaker function. 2. As noted above . 3. No ventricular high rate episodes were noted. Testing reviewed by: Ignacio Benz Associated attestation - Mary Moe NP - 12/25/2018 12:27 PM PDTAppropriate device funct ion NICOLLE Ceja in this encounter Plan of Treatment +--------+ [...] | | | | | | [place] [address] | | | | | | [phone] | | | | | | | [...] [place] | | | | | | [address] | | | | | | | [...]
--- OUTSIDE RECORDS SUMMARY | ~2019-03-07 | XMS | Encounter Summary ---
Demographics + + + | Address | [address] | | | [place] [address] | + + + | Home Phone [...] Team Providers + +------+ + | Care Traffic Assistant Name | Role | Phone | + +------+ + | Jesus Mijares MD | PCP | Unavailable | + +------+ + Encounter Details +--------+ + + + + | Date | Type | Department | Care Team | Description | +--------+ + + + + | 02/17/ | Orders Only | [facility] | AidanTanyay, | Lumbar radiculopathy | | 2019 | | PHYSIATRY [address] | PA-C [address] | (Primary Dx) | | | | [place], | [address] [place] | | | | | [place] [address] | [place] [address] | | | | | [phone] | [phone] | | | | | | | [...] | and Rehabilitation | [place] [address] | | | | | | [address] [place] | | | | | | [place] [address] | | | | | | [phone] | | | | | | | | +--------+ + + + + | 06/02/ | Appointment | Radiology | [place], | | | 2018 | | | [place] [address] | | | | | | [address] [place] | | | | | | [place] [address] | | | | | | [phone] | | | | | | | | | | | | Painter MaintenanceJaspal | | +--------+ + + + + documented as of this encounter Results FL SRINIVAS Lumbar Transforaminal (03/03/2019 14:50 PDT) [...]
--- OUTSIDE RECORDS SUMMARY | ~2019-03-07 | XMS | Encounter Summary ---
Demographics + + + | Address | [address] | | | [place] [address] | + + + | Home Phone | | + + + | Preferred Language | Unknown | + + + | Marital Status | | + + + | Zoroastrianism Affiliation | Unknown | + + + | Race | White | + + + | Ethnic Group | Not or | + + + Author + + + | Author | [facility] | + + + | Organization | [facility] | + + + | [...] Team Providers + +------+ + | Care Prosecuting Attorney Name | Role | Phone | [...] as of this encounter Progress Notes Interface, Bead Stringer In - 10/22/2006 1:06 AM PSTCLINIC DATE: [...] cancel her further appointments. Kavon Melton M.D. Investment Manager, Plastic and Reconstructive Surgery TOREY/nevin d ocumented in this encounter Plan of Treatment Not on filedocumented as of this encounter Visit Diagnoses Not on filedocumented in this encounter"
--- OUTSIDE RECORDS SUMMARY | ~2019-03-07 | XMS | Encounter Summary ---
Demographics + + + | Address | [address] | | | [place] [address] | + + + | Home Phone [...] Team Providers + +------+ + | Care Apricot Packer Name | Role | Phone | [...] + + | 02/18/ | [facility] | [facility] [place] [facility] Capo Bermudez, | Follow-up | | 2019 | | PHYSIATRY [address] | PA-C [address] | (Injections) | | | | [place], | [address] [place] | | | | | [place] [address] | [place] [address] | | | | | [phone] | [phone] | | | | | | | [...] | | | | | [place] [address] | | | | | | [phone] | | | | | | | | +--------+ + + + + | 06/02/ | Appointment | Radiology | Capo Bermudez, | | | 2019 | | | GAMALIEL [address] | | | | | | [address] [place] | | | | | | [place] [address] | | | | | | [phone] | | | | | | | | | | | | Outside Solar Sales Consultant, [facility] | | +--------+ + + + + + +--------+ + + | Name | Priori | Associated Diagnoses | Order Schedule | | | ty | | | + +--------+ + + | DEXA Bone Density wo Vert Fx | Routin | long-term current | Expected: | | Assmt | [...] systemic steroid therapy | + + | termination clerk current use of systemic steroids Encounter for long-term (current) use of | | steroids | + + documented in this encounter"
--- OUTSIDE RECORDS SUMMARY | ~2019-03-07 | XMS | Encounter Summary ---
Demographics + + + | Address | [address] | | | [place] [address] | + + + | Home Phone | | + + + | Preferred Language | Unknown | + + + | Marital Status | | + + + | Worship Affiliation | 1027 | + + + | Race | Unknown | + + + | Ethnic Group | Unknown | + + + Author + + + | Author | [employer] | + + + | Organization | [facility] | + + + | Address [...] Team Providers + +------+ + | Care Executive Search Consultant Name | Role | Phone | + +------+ + | Jesus Mijares MD | PCP | Unavailable | + +------+ + Reason for Visit + + + | Reason | Comments | + + + | Pacemaker Check | in office | + + + Encounter Details +--------+ + + + + | Date | Type | Department | Care Team | Description | +--------+ + + + + | 03/04/ | Documentati | [facility] | Marilin Garcia | Pacemaker Check (in | | 2019 | on Only | Cardiology [place] | | [facility]) | | | | [address] | | | | | | [facility] [place] | | | | | | [address] | | | | | | [phone] | | | +--------+ + + + [...] | 03/24/ | Office | Cardiology | MalcolmRajendra, | | | 2018 | Visit | | MD [address] | | | | | | [place] | | | | | | [place] [address] | | | | | | [phone] | | | | | | | [...] [place] | | | | | | [address] | | | | | | | [...] + as of this encounter Visit Diagnoses + + | Diagnosis | + + | Paroxysmal atrial fibrillation (HCC) - Primary | + + | Atrial fibrillation | + + | SSS (sick sinus syndrome) | + + | Sinoatrial node dysfunction | + +"
--- OUTSIDE RECORDS SUMMARY | ~2019-03-07 | XMS | Encounter Summary ---
Demographics + + + | Address | [address] | | | [place] [address] | + + + | Home Phone | | + + + | Preferred Language | Unknown | + + + | Marital Status | | + + + | Church Affiliation | 1027 | + + + [...] Team Providers + +------+ + | Care Catering Sales Manager Name | Role | Phone [...] | | | | [place] | [address] | | | | | | and/or Inj | Phone: | | | | | | Major Joint | [phone] | | | | | | Right | Fax: | | | | | | | [phone] | | +--------+--------+ + + + + [...] | | | | [place] | [address] | | | | | | and/or Inj | Phone: | | | | | | Major Joint | [phone] | | | | | | Right | Fax: | | | | | | | [phone] | | +--------+--------+ + + + + [...] | | | | [place] | [address] | | | | | | and/or Inj | Phone: | | | | | | Major Joint | [phone] | | | | | | Right | Fax: | | | | | | | [phone] | | +--------+--------+ + + + + Encounter Details +--------+ + + + + | Date | Type | Department | Care Team | Description | +--------+ + + + + | 03/03/ | Hospital | [facility] | AidanTanyay, | Lumbar | | 2019 | Encounter | MED CTR XRAY [address] | PA-C [address] | radiculopathy; | | | | [place] | [address] [place] | Trochanteric | | | | [place] [address] | [place] [address] | bursitis, right hip | | | | [phone] | [phone] | | | | | | | | | | | | Railroad Engineer, [facility] | | +--------+ + + + [...] | | | | | [place] [address] | | | | | | [phone] | | | | | | | | +--------+ + + + + | 06/02/ | Appointment | Radiology | Capo Bermudez, | | | 2019 | | | PA-C [address] | | | | | | [address] [place] | | | | | | [place] [address] | | | | | | [phone] | | | | | | | | | | | | Railroad Engineer, [facility] | | +--------+ + + + [...]
--- OUTSIDE RECORDS SUMMARY | ~2019-03-07 | XMS | Clinical Summary ---
Demographics + + + | Address | [address] | | | [place] [address] | + + + | Home Phone | | + + + | Preferred Language | Unknown | + + + | Marital Status | | + + + | Buddhism Affiliation | 1027 | + + + | Race | Unknown | + + + | Ethnic Group | Unknown | + + + Author + + + | Author | [employer] | + + + | Organization | [facility] [employer] [facility] | + + + | Address [...] Team Providers + +------+ + | Care Ship Loader Name | Role | Phone | + [...] ---------+ | Overview: Sylvia S-53 cm, model 865865, #[id number] lead was | | placed into the right ventricle and screwed intoposition on the | | septum, midway between the apex and outflow tract. Thefinal | | pacing threshold was 1 V at 0.5 msec, with R waves of 5.9 mV and | | theimpedance was 550 ohms. There was no diaphragmatic pacing at | | 10 V. Statuslytronic model 5076-45 cm lead was placed into [...] ohms. The leads were attached to a [employer] Etrinsa 8 | | , model 708824,serial #[id number] pacemaker. FINAL | | SETTINGS FOR THE [...] due to the cost, followed at the [facility] | | clinic to monitor [...] | | 2019 | Visit | | DIRECTOR OF CASINO | kidney disease | | | | [...] | | | | | | [place] [address] | | | | | | [phone] | | | | | | | [...] [place] | | | | | | [address] | | | | | | | [...] c | | BIOT | | | /[id number] | | Chuy Wills MD | Rhythm [...] | Rhythm | | | | | [address] | | | | | | | | / | | | Manage | | | | | | | | ment | | | | | | + +--------+--------+ +--------+--------+--------+ | Pacer-03/20/2017Implanted: Qty: | Cardia | Chest | BIOTRONIK - | | | | | 1 on 03/20/2017 by Johann, | jim | Wall | BIOT | | | /[id number] | | MD Chuy | Rhythm | [...] + + + + | Calculated R [place] | 30 | degrees | [facility] EKG | + + + + + | Calculated T [place] | 53 | degrees | [facility] EKG | + + + + + | Diagnosis | Please refer to | | [facility] E[facility] | | | Providers office visit | | | | | note for Providers | | | | | Interpretation.Confirmed | | | | | by [facility] [place] Read Only, | | | | | [facility] [place] ([id number]), | | | | | deputy editor in chief Kervin Coker | | | | | ([id number]) on 03/04/2019 | | | | | 2:26:07 PM | | | + + + + + + + + + + | Performing | Address | City/State/Zipcode | Phone Number | | Organization | | | | + + + + + | [facility] | [address] | [place] [address] | | + + + + + [...] +------+-------+ + | MEDICARE | MEDICA | [id number] | | | [address] | | | RE | | | | [place] [address] | | | IP-OP | | | | | + +--------+ +------+-------+ + | UNITED HEALTHCARE | UNITED | [id number] | | | | | | | [...] | Self | [birth year] Home: | [address] | | | [place] | | 1940 | [phone] | [place] | | | [place] | | | [phone] | [address] | + +--------+ +--------+ + +
--- OUTSIDE RECORDS SUMMARY | ~2019-03-07 | XMS | Encounter Summary ---
Demographics + + + | Address | [address] | | | [place] [address] | + + + | Home Phone | | + + + | Preferred Language | Unknown | + + + | Marital Status | | + + + | Samaritan Affiliation | Unknown | + + + | Race | White | + + + | Ethnic Group | Not or | + + + Author + + + | Author | [facility] | + + + | Organization | [facility] | + + + | Address [...] Team Providers + +------+ + | Care Tuberculosis Specialist Name | Role | Phone | [...] as of this encounter Progress Notes Interface, Field Artillery Officer In - 10/24/2006 3:06 AM PST [facility] Account No. PROGRESS RECORD Name Rebecca [...] has been treated by Dr. Mena in [place], [place]. She also developed an 8 x [...] if any problems develop. Kavon Melton M.D. [employer], Plastic and Reconstructive Surgery TOREY/michael d ocumented in this encounter Plan of Treatment Not on filedocumented as of this encounter Visit Diagnoses Not on filedocumented in this encounter"
--- OUTSIDE RECORDS SUMMARY | ~2019-03-07 | XMS | Encounter Summary ---
Demographics + + + | Address | [address] | | | [place] [address] | + + + | Home Phone | | + + + | Preferred Language | Unknown | + + + | Marital Status | | + + + | Nondenominational Affiliation | 1027 | + + + | Race | Unknown | + + + | Ethnic Group | Unknown | + + + Author + + + | Author | [employer] | + + + | Organization | [facility] [employer] | + + + | Address [...] Team Providers + +------+ + | Care Slurry Plant Operator Name | Role | Phone | + +------+ + | Jesus Mijares MD | PCP | Unavailable | + +------+ + Reason for Visit + + + | Reason | Comments | + + + | Labs Only | 12/05/18 | + + + Encounter Details +--------+ + + + + | Date | Type | Department | Care Team | Description | +--------+ + + + + | 12/08/ | Documentati | [facility] | Abraham | Labs Only (12/05/18) | | 2019 | on Only | [facility] [address] | [address] | | | | | [address] | | | | | | [place] [address] | | | | | | [phone] | | | +--------+ + + + [...] | 2018 | Visit | | MD [address] | | | | | | [place] | | | | | | [place] [address] | | | | | | [phone] | | | | | | | | +--------+ + + + + | 06/11/ | Documentati | Cardiology | | | | 2018 | on Only | | | | +--------+ + + + + | 09/01/ | Office | Cardiology | Mary Moe WOMENS HEALTH NURSE PRACTITIONER | | | 2018 | Visit | | [address] | | | | | | [place] | | | | | | [address] | | | | | | | [...] section. | + +--------+ + + + in this encounter Results Uric acid (12/05/2018 12:30 PM) + +-------+ + + | Component | Value | Ref Range | Performed At | + +-------+ + + | URIC ACID | 6.5 | 2.3 - 6.6 | | + +-------+ + + + + | Specimen | + + | Blood | + + in this encounter Visit Diagnoses Not on filein this encounter"
--- OUTSIDE RECORDS SUMMARY | ~2019-03-07 | XMS | Encounter Summary ---
Demographics + + + | Address | [address] | | | [place] [address] | + + + | Home Phone | | + + + | Preferred Language | Unknown | + + + | Marital Status | | + + + | Anabaptism Affiliation | 1027 | + + + | Race | Unknown | + + + | Ethnic Group | Unknown | + + + Author + + + | Author | [employer] | + + + | Organization | [facility] | + + + | Address [...] Team Providers + +------+ + | Care Humidifier Attendant Name | Role | Phone | [...] Description | +--------+--------+ + + + | 01/05/ | Refill | [facility] [place] | Suzanna De La O, | Medication Refill | | 2018 | | Cardiology [place] | [place] | | | | | [address] | | | | | | [place] | | | | | | [address] | | | | | | [phone] | | | +--------+--------+ + + + [...] | | | | | | [place] [address] | | | | | | [phone] | | | | | | | | +--------+ + + + + | 06/11/ | Documentati | Cardiology | | | | 2018 | on Only | | | | +--------+ + + + + | 09/01/ | Office | Cardiology | Mary Moe NP | | | 2018 | Visit | | [address] [place] | | | | | | [place] | | | | | | [address] | | | | | | | [...]
--- OUTSIDE RECORDS SUMMARY | ~2019-03-07 | XMS | Encounter Summary ---
Demographics + + + | Address | [address] | | | [place] [address] | + + + | Home Phone | | + + + | Preferred Language | Unknown | + + + | Marital Status | | + + + | Congregation Affiliation | Unknown | + + + | Race | White | + + + | Ethnic Group | Not or | + + + Author + + + | Author | [facility] | + + + | Organization | [facility] | + + + | Address | Unknown | + + + | Phone | Unavailable | + + + Support + + + + + | Name | Relationship | Address | Phone | + + + + + | Geoffrey Castillo | RENAE | [place] | | + + + + + Care Team Providers + +------+ + | Care Compliance Consultant Name | Role | Phone | [...] as of this encounter Progress Notes Interface, Repair Miller In - 07/17/2006 3:06 AM PDTCLINIC DATE: [...] morning. Jayson Mccoy M.D. SHAJI / CHARY [id number] / [id number] / [id number] / [id number] signed by Interface, Repair Miller In at 07/17/2006 3:06 AM PDTdoc umented in this encounter Plan of Treatment Not on filedocumented as of this encounter Visit Diagnoses Not on filedocumented in this encounter"
--- OUTSIDE RECORDS SUMMARY | ~2019-03-07 | XMS | Encounter Summary ---
Demographics + + + | Address | [address] | | | [place] [address] | + + + | Home Phone | | + + + | Preferred Language | Unknown | + + + | Marital Status | | + + + | Evangelical Affiliation | 1027 | + + + | Race | Unknown | + + + | Ethnic Group | Unknown | + + + Author + + + | Author | [employer] | + + + | Organization | [facility] [employer] [facility] | + + + | Address [...] Team Providers + +------+ + | Care Nurse Practitioner Manager Name | Role | Phone | [...] + | 03/04/ | Office | [facility] [place] | Mary Moe NP | Paroxysmal atrial | | 2019 | Visit | Cardiology [place] | [address] [place] | fibrillation (HCC) | | | | [address] | [place], [place] | (Primary Dx); | | | | [place], [place] | [address] | Encounter for | | | | [address] | | monitoring digoxin | | | | [phone] | | therapy; Cardiac | | | [...] Castillo : 1940: AGE: 79 y.o. Phone- [phone] (home) Date of consultation: 03/04/2019 PRIMARY CARE: JAKE EAGLE Requesting Physician: Jesus Eagle MD [address] [address] SUMMARY OF EP RECOMMENDATIONS Continue Sotalol 80mg BID. QTC today 454 Appropriate Device Function- extension of AV delays to minimize RV pacing Follow up with EP in 6 months Patient Active Problem List Diagnosis Date Noted Chronic diastolic heart failure (HCC) 09/15/2018 CAD (coronary artery disease) 08/27/2018 Hypomagnesemia 06/04/2018 Hypokalemia 06/04/2018 Cardiac pacemaker in situ 09/03/2017 Setrox S-53 cm, model 712456, #[id number] lead was placed into the right ventricle and scre wed into position on the septum, midway between the apex and outflow tract. The final pacing threshold was 1 V at 0.5 msec, with R waves of 5.9 mV and the impedance was 550 ohms. There was no diaphragmatic pacing at 10 V. Metasonic AGtronic model 5076-45 cm lead was placed into the high right atrium and screwed into position anteriorly. The lead needed to be repositioned several times because of elevated thresholds in certain locations. In the final location, the pacing threshold was 1.2 V at 0.5 msec, and P waves were 1.9 mV with an impedance of 360 ohms. The leads were attached to a [employer] Etrinsa 8 DR.-T, model 856616, serial #[id number] pacemaker. FINAL SETTINGS FOR THE DEVICE Mode [...] due to the cost, followed at [facility] clinic to monitor INR. [...] | | | | | | [place] [address] | | | | | | [phone] | | | | | | | [...] [place] | | | | | | [address] | | | | | | | [...] + + + + | Calculated R [place] | 30 | degrees | [facility] EKG | + + + + + | Calculated T [place] | 53 | degrees | [facility] EKG | + + + + + | Diagnosis | Please refer to | | [facility] EKG | | | Providers office visit | | | | | note for Providers | | | | | Interpretation.Confirmed | | | | | by [facility] [place] Read Only, | | | | | [facility] [place] ([id number]), | | | | | continuity editor Kervin Coker | | | | | ([id number]) on 03/04/2019 | | | | | 2:26:07 PM | | | + + + + + + + + + + | Performing | Address | City/State/Zipcode | Phone Number | | Organization | | | | + + + + + | [facility] | [address] | [place] [address] | | + + + + + [...]
--- OUTSIDE RECORDS SUMMARY | ~2019-03-07 | XMS | Encounter Summary ---
Demographics + + + | Address | [address] | | | [place] [address] | + + + | Home Phone | | + + + | Preferred Language | Unknown | + + + | Marital Status | | + + + | Denominational Affiliation | 1027 | + + + | Race | Unknown | + + + | Ethnic Group | Unknown | + + + Author + + + | Author | [employer] | + + + | Organization | [facility] [employer] [facility] | + + + | Address [...] Team Providers + +------+ + | Care Bath Mix Operator Name | Role | Phone | [...] [address] | | | | | | [place] [address] | | | | | | [phone] | | | +--------+ + + + [...] | | | | | | [place] [address] | | | | | | [phone] | | | | | | | | +--------+ + + + + | 06/11/ | Documentati | Cardiology | | | | 2018 | on Only | | | | +--------+ + + + + | 09/01/ | Office | Cardiology | Mary Moe PACKING LINE OPERATOR | | | 2018 | Visit | | [address] | | | | | | [place] | | | | | | [address] | | | | | | | [...]
--- OUTSIDE RECORDS SUMMARY | ~2019-03-07 | XMS | Encounter Summary ---
Demographics + + + | Address | [address] | | | [place] [address] | + + + | Home Phone | | + + + | Preferred Language | Unknown | + + + | Marital Status | | + + + | Faith Affiliation | Unknown | + + + [...] Team Providers + +------+ + | Care Mechanotherapist Name | Role | Phone | + [...] | Transcriptions | + + | Interface, County Ordinary In - 07/17/2006 3:06 AM PDT | | [place] [address] | | [place], [place] [address] | | [facility] RECORDMed Rec No.: | | [id number] Date: 08/12/2001Name: Guerrero Castillo SURGEON: | | Jayson Mccoy M.D.FASHION PHOTOGRAPHER SURGEON: Chrissie Koch | | ToriPREOPERATIVE DIAGNOSIS:Left-sided [...] M.D. Jayson Mccoy M.D.MM/x53D: | | 08/12/2001T: 08/13/[id number]: | |otosclerosis. | | | |SPECIMENS REMOVED: [...] | | | | | | | |[id number] | | | |CC: | + + documented in this encounter Visit Diagnoses Not on filedocumented in this encounter"
--- OUTSIDE RECORDS SUMMARY | ~2019-03-07 | XMS | Encounter Summary ---
Demographics + + + | Address | [address] | | | [place] [address] | + + + | Home Phone | | + + + | Preferred Language | Unknown | + + + | Marital Status | | + + + | Sabianist Affiliation | Unknown | + + + [...] Team Providers + +------+ + | Care Finishing Inspector Name | Role | Phone | [...] as of this encounter Progress Notes Interface, Leak Gang Supervisor In - 05/15/2006 1:04 AM PDTCLINIC DATE: [...] bypass. Indra Ramos M.D. CD / HS [id number] / [id number] / [id number] / cc: Jesus Mijares M.D. [address] [place] [address] Geoffrey Castro M.D. [address] [place], [place] [id number] signed by Interface, Leak Gang Supervisor In at 05/15/2006 1:0 4 AM PDTdocumented in this encounter Plan of Treatment Not on filedocumented as of this encounter Visit Diagnoses Not on filedocumented in this encounter"
--- OUTSIDE RECORDS SUMMARY | ~2019-03-07 | XMS | Clinical Summary ---
Demographics + + + | Address | [address] | | | [place] [address] | + + + | Home Phone [...] Team Providers + +------+ + | Care Automation Manager Name | Role | Phone | [...] + + +---------+------+------+-------+ | amitriptyline | Take 25 mg by mouth | | 0 | 06/14 | | Activ | | (ELAVIL) 25 mg | nightly. | | | 4/20 | | e | | tablet | | | | 12 | | | + + + +---------+------+------+-------+ [...] 0 | | | Activ | | (DESYREL) 50 mg | nightly. | | | | | e | | tablet | | | | | | | + + + +---------+------+------+-------+ | warfarin | Take 4 mg by mouth | | 0 | | | Activ | | (COUMADIN) 4 MG | Daily. 4mg daily | | | | | e | | tablet | Saturday, 6 mg rest | | | | | | | | of the days | | | | | | + [...] + +---------+------+------+-------+ | losartan (COZAAR) | Take 25 mg by mouth. | | 0 | | | Activ | | 25 mg tablet | | | | | | e | + + + +---------+------+------+-------+ | digoxin (LANOXIN) | Take 0.25 mg by | | 0 | | | Activ | | 50 mcg/mL solution | mouth. | | | | | e | + + + +---------+------+------+-------+ | potassium chloride | Take 20 mEq by | | 0 | 08/2 | 08/2 | Activ | | (KLOR-CON M20) 20 | mouth. | | | 2/20 | 2/20 | e | | mEq ER tablet | | | | 18 | 19 | | + + + +---------+------+------+-------+ | magnesium chloride | Take 128 mg by | | 0 | 08/2 | 08/2 | Activ | | (MAG64) 64 mg EC | mouth. | | | 2/20 | 2/20 | e | | tablet | | | | 18 | 19 | | + + + +---------+------+------+-------+ | allopurinol | TAKE ONE TABLET BY | | 0 | 04/13 | | Activ | | (ZYLOPRIM) 100 mg | MOUTH ONCE DAILY | | | 06/02 | | e | | tablet | | | | 18 | | | + + + +---------+------+------+-------+ Active Problems + + + | Problem | Noted Date | + + + | Hx of corticosteroid therapy | 02/18/2019 | + + + | Subacromial bursitis of right shoulder joint | 12/01/2018 | + + + | CHF (congestive heart failure) | 07/31/2018 | + + + + + | Overview: Overview: Chronic Diastolic Heart Failure, | | predominantly right-sided sxs (edema)09/03/2017Volume status | | improved. Euvolemic on examination today. | |09/03/2017 | |Volume status improved. Euvolemic on examination [...] | 09/03/2017 | + + + + + | Overview: Sylvia Rodriguez53 tamara, model 801217, #[id number] lead was | | placed into the right ventricle and screwed intoposition on the | | septum, midway between the apex and outflow tract. Thefinal | | pacing threshold was 1 V at 0.5 msec, with R waves of 5.9 mV and | | theimpedance was 550 ohms. There was no diaphragmatic pacing at | | 10 V. [employer] model 5076-45 cm lead was placed into [...] ohms. The leads were attached to a [employer] Etrinsa 8 | | , model 190933,serial #[id number] pacemaker. FINAL | | SETTINGS FOR THE [...] | | maintaining adequate safety margins. Apacing 78%, RV pacing 28%. | | 7.7 years battery longevity. 3% burden of AF, fastest V-rate 98 | | bpm, longest episode 11 hours and 40 minutes. | |08/27/2018 | |Normal lead thresholds and battery status. Device was adjusted to optimize battery length w hile maintaining adequate safety margins. | |Apacing 78%, RV pacing 28%. 7.7 years battery longevity. 3% burden of AF, fastest V-rate 98 bpm, longest episode 11 hours and 40 minutes. | + + + + + | [...] | 09/11/2016 | + + + | Trochanteric bursitis of right hip | 03/06/2016 | + + + | Chronic kidney disease, stage III (moderate) | 12/06/2015 | + + + | Paroxysmal atrial flutter | 12/06/2015 | + + + | Hypertension | 12/06/2015 | + + + + + | Overview: Overview: | | Essential | + + + + + | [...] | | on [employer] for > 40 years | + + + + + | [...] + + | 03/03/ | Hospital | | Aidan Capo, | Lumbar | | 2019 | Encounter | | PAGordy Catalyst Operator, | radiculopathy; | | | | | [facility] | Trochanteric | | | | | | bursitis, right hip | +--------+ + + + + | 03/03/ | Office | | Capo Bermudez, | Lumbar radiculopathy | | 2018 | Visit | | [place] | (Primary Dx); | | | | | | Rotator cuff | | | | | | syndrome of both | | | | | | shoulders; Chronic | | | | | | left shoulder pain; | | | | | | Elevated INR | +--------+ + + + + | 03/03/ | Orders Only | | Nilson Chaudhry | Trochanteric | | 2019 | | | MD Camila | bursitis, right hip | | | | | | (Primary Dx) | +--------+ + + + + | 02/18/ | Telephone | | Capo Bermudez, | Follow-up | | 2018 | | | PA-C | (Injections) | +--------+ + + + + | 02/17/ | Orders Only | | Capo Bermudez, | Lumbar radiculopathy | | 2018 | | | PA-C | (Primary Dx) | +--------+ + + + + from Last 3 Months Immunizations + + + + | Name | Dates Previously Given | Next Due | + + + + | INFLUENZA PF | 10/03/2013 | | | TRIVALENT(PED/ADOL/A | | | | ANUJA CORREA | | | + + + + | PNEUMOCOCCAL PCV7 | 08/02/2009 | | | (PED) | | | + + + + Family History + + + + + | Medical History | Relation | Name | Comments | + + + + + | High blood pressure | Brother | Kana | | | | | Rogers | | + + + + + | High cholesterol | Brother | Kana | from stroke age 73 | | | | Rogers | | + + + + + | Arthritis | Mother | Ada | Hands | | | | Sparkman | | + + + + + + + +--------+ + | Relation | Name | Status | Comments | + + +--------+ + | Brother | Kana | | | | | Rogers | | | + + +--------+ + | Mother | Ada | | | | | Sparkman | | | + + +--------+ + [...] | Blood Pressure | 120/79 | 03/03/2019 1305 PDT | + + + + | Pulse | 108 | 03/03/2019 1305 PDT | + + + + | Temperature | - | - | + + + + | Respiratory Rate | 18 | 07/31/2018955 PDT | + + + + | Oxygen Saturation | - | - | + + + + | Inhaled Oxygen | - | - | | Concentration | | | + + + + | Weight | 72.6 kg (160 lb) | 03/03/20191304 PDT | + + + + | Height | 162.6 cm (5' 4") | 03/03/20191304 PDT | + + + + | Body Mass Index | 27.46 | 03/03/20191304 PDT | + + + + Plan of Treatment +--------+ + + + + | Date | Type | Specialty | Care Team | Description | +--------+ + + + + | 06/02/ | Office | | Capo Bermudez, | | | 2018 | Visit | | JOHN-Bigg [address] | | | | | | [address] [place] | | | | | | [place] [address] | | | | | | [phone] | | | | | | | | +--------+ + + + + | 06/02/ | Appointment | | Capo Bermudez, | | | 2019 | | | PA-C [address] | | | | | | [address] [place] | | | | | | [place] [address] | | | | | | [phone] | | | | | | | | | | | | Catalyst Operator [facility] | | +--------+ + + + [...] + + | Hemoglobin A1c | | | | | Screening | 0 | | | + + [...] + + + + | Vaccine: Zoster (2 | | 07/07/2011 | | | of 3) | 1 | | | + + + + + | Adult Annual | | | | | Wellness Visit | 5 | | | + + + + + | Vaccine: Influenza | Completed | 07/18/2018, 08/16/2017, | | | | | 08/14/2017, Additional history | | | | | exists | | + + + + + Procedures + +--------+ + + + | [...] + + from Last 3 Months Results [place] Asp and/or Inj Major Joint [...] + + | Performing | Address | City/State[facility] | Phone Number | [...] | radiculopathy ICD-10 Code M54.16 Rebecca Chanell Rajputhn presents to the | | | fluoroscopy [...] +---------+ + + from Last 3 Months Insurance + +--------+ +--------+ +---------+--------+ | Payer | Benefi | Subscriber | Effect | Phone | Address | Type | | | t Plan | ID | kennedi | | | | | | / | | Dates | | | | | | Group | | | | | | + +--------+ +--------+ +---------+--------+ | MEDICARE | MEDICA | [id number] | 02/12/20 | [phone] | | Medica | | | RE | | 07-Pre | 5 | | re | | | PART A | | sent | | | | | | AND B | | | | | | + +--------+ +--------+ +---------+--------+ | AARP | AARP | [id number] | 02/12/20 | [phone] | | Indemn [...] Person | Self | [birth year] | [address] | | | al/Fam | | 1940 | [phone] | [place] | | | margarita | | | 5 (Home) | [address] | + +--------+ +--------+ + + Advance Directives Patient has advance care planning documents on file. For more information, please contact:[facility] [address]
--- OUTSIDE RECORDS SUMMARY | ~2019-03-07 | XMS | Encounter Summary ---
Demographics + + + | Address | [address] | | | [place] [address] | + + + | Home Phone [...] Team Providers + +------+ + | Care Refuse Collector Name | Role | Phone | [...] | | | | [place] Asp | [id number] | | | | | | and/or Inj | Phone: | | | | | | Major Joint | [phone] | | | | | | Right | Fax: | | | | | | | [phone] | | +--------+--------+ + + + + [...] bursitis, right hip | | | | [employer], | [address] [place], [place] | (Primary Dx) | | | | [place] [address] | [address] | | | | | [phone] | | | +--------+ + + + [...] | | | | | | [place] [address] | | | | | | [phone] | | | | | | | | +--------+ + + + + | 06/02/ | Appointment | Radiology | Capo Bermudez, | | | 2018 | | | JOHN-C [address] | | | | | | [address] [place] | | | | | | [place] [address] | | | | | | [phone] | | | | | | | | | | | | Scientist ElectronicsJaspal | | +--------+ + + + + [...]
--- OUTSIDE RECORDS SUMMARY | ~2019-03-07 | XMS | Encounter Summary ---
Demographics + + + | Address | [address] | | | [place] [address] | + + + | Home Phone | | + + + | Preferred Language | Unknown | + + + | Marital Status | | + + + | Episcopalian Affiliation | 1027 | + + + | Race | Unknown | + + + | Ethnic Group | Unknown | + + + Author + + + | Author | [facility] | + + + | Organization | [facility] | + + + | Address [...] Team Providers + +------+ + | Care Birdcage Assembler Name | Role | Phone | + +------+ + | Jesus Mijares MD | PCP | Unavailable | + +------+ + Encounter Details +--------+---------+ + + + | Date | Type | Department | Care Team | Description | +--------+---------+ + + + | 12/17/ | Office | [facility] | Veto Neri, | Stage 2 chronic | | 2019 | Visit | [place] [address] | NON LICENSED NUCLEAR EQUIPMENT OPERATOR [address] | kidney disease | | | | [address] | [address] | (Primary Dx); | | | | [place] [address] | [place] [address] | Bilateral edema of | | | | [phone] | [phone] | lower extremity; | | | | | | Essential | | | | | | hypertension, | | | | | | benign; Hypokalemia; | | | | | | Hypomagnesemia | +--------+---------+ + + + Social History [...] + + + | Blood Pressure | 118/76 | 12/17/2018 1:32 PM PST | + + + + | Pulse | 64 | 12/17/2018 1:32 PM PST | + + + + | Temperature | - | - | + + + + | Respiratory Rate | - | - | + + + + | Oxygen Saturation | - | - | + + + + | Inhaled Oxygen | - | - | | Concentration | | | + + + + | Weight | 73.5 kg (162 lb 1.6 | 12/17/2018 1:32 PM PST | | | oz) | | + + + + | Height | 162.6 cm (5' 4") | 12/17/2018 1:32 PM PST | + + + + | Body Mass Index | 27.82 | 12/17/2018 1:32 PM PST | + + + + in this encounter Instructions Patient Instructions - Veto Neri ARNP - 12/17/2018 1:20 PM PST Medication Changes made at today's visit: None Next LAB WORK should be done in about: 6 Months You do NOT need to fast for this lab work, keep hydrated. Next APPOINTMENT: in about 6 Months Other Instructions: Low Salt Diet Recommended Please have lab work done 1 weeks prior to your appointment. Make sure you are well hydrated prior to going to the lab and are able to give a urine s ample. Call the office with any questions or concerns. If you are taking a proton pump inhibitor, such as Protonix (omeprazole), talk to your [facility] care provider about if you need this medication fci. Call our office or your PCP if you have blood pressure over 150/90 on more than one occa everett, or low blood pressure that is concerning. If you experience diarrhea and /or vomiting for more than 24 hours with no relief please seek medical help immediately. The treatments that are recommended to slow the progression of Chronic Kidney Disease in clude blood sugar control, blood pressure control, healthy body weight (BMI less than 30 kg/ m2), avoid sedentary lifestyle, avoid smoking/ tobacco, avoid NSAIDs, early intervention of worsening nausea, vomiting, no or low appetite and/or frequent diarrhea and avoid IV contras t. I urge that you measure your BP at least daily, twice daily, record it and bring record to every appointment with every healthcare provider you see. Do not drink alcohol. Avoid caffeinated beverages such as soda pop, coffee, espresso drinks, energy drinks. Please bring all of your medications in the pharmacy bottles to every visit so a medicat ion review can be done. Make all healthcare providers aware of the presence of kidney disease and request to adj ust all medications according to level of kidney function and to avoid nephrotoxic medicatio ns if possible, including but not limited to antibiotics. Call us with any questions about m eds. DO NOT TAKE any anti-inflammatory drugs such Ibuprofen, Diclofenac, Motrin, Advil, Marrero xicam, naprosyn (Aleve), Celebrex, decongestants containing pseudoephedrine (such as some fo carolynn of Sudafed or Actifed) or herbal supplements (because of lack of FDA approval) Short term use of acetaminophen (Tylenol) for fever or pain is okay. If in doubt please call our office for verification. Avoid exposure to IV contrast agents (DYE) used in CT scans, MRI's, Fluoroscopy, or in h eart catheterization procedures unless necessary or for a life saving procedure. If you smoke, you must quit. Smoking worsens kidney disease. in this encounter Progress Notes Veto Neri ARNP - 12/17/2018 1:20 PM PSTFormatting of this note may be different f rom the original. Patient Active Problem List Diagnosis Chest pain, unspecified Bradycardia Essential hypertension, benign Other and unspecified hyperlipidemia Paroxysmal atrial fibrillation (HCC) Diabetes mellitus, type 2 Paroxysmal atrial flutter (HCC) CKD (chronic kidney disease) stage 3, GFR 30-59 ml/min CHF (congestive heart failure) Chronic idiopathic gout of foot Bilateral edema of lower extremity SSS (sick sinus syndrome) Snoring Depression Gastroesophageal reflux Cardiac pacemaker in situ Hypomagnesemia Hypokalemia CAD (coronary artery disease) Chronic diastolic heart failure (HCC) Dear Dr Mijares: I saw your patient Ms. Castillo in the office today. As you are familiar with her case, I wi ll not state her past history in detail. Briefly, she is a 78 y.o. female patient with past history as delineated above. she is here to F/U on her CKD & its associated complications. In 10/2015, her sCr & eGFR were 1.59, & 32. The patient has history of hypertension since the , Diabetes Mellitus since the mid . her BG and BP control has been reportedly adequate. she denies any history of prolong ed exposure to NSAIDs or recent exposure to known nephrotoxins. she denies any recurrent nep hrolithiasis or pyelonephritis. she tells me that she's had no history of urinary retention, gross hematuria or dysuria. she has continuous incontinence symptoms; she's had bladder yonathan pension surgeries x2. No symptoms of UTI. she has 1-2 nightly nocturia. No history of pass ing kidney stones. she has no foamy urine either. her baseline Creatinine is TBD. There is n o family history of renal genetic diseases such as PKD. she says that she feels 'good ' today, chronic low appetite and chronic back pains, she get s injections in her back every few months in [place]. Her chronic lower leg edema has im proved, she stopped taking torsemide and potassium supplement for the past couple of weeks. she denies any blurred vision tinnitus, headache, fever, chills, or cough. No nausea, vom iting, abdominal pain, diarrhea, melena, or hematochezia. No chest pain, palpitation, dizzi ness, loss of consciousness, orthopnea, paroxysmal nocturnal dyspnea. Occasionally eats crackers, portuguese food and other high sodium foods at times, she drinks a lot of herbal teas as well. She was on lisinopril 40mg daily in the past, she reports she was taken off that because it did not work. She was started on losartan in July 2016, she stopped this due to increased leg swelling , but restarted it in 2017. The following portions of the patient's history were reviewed and updated as appropriate: a llergies, current medications, past medical history, past social history, past surgical hist ory, family history and problem list. Renal ultrasound done June 07, 2016 showing significant post void bladder volume, 70 mL. Mild uniform increased echogenicity both kidneys consistent with medical renal disease. Othe rwise unremarkable. As in History of Present Illness & in Assessment. All the twelve systems were reviewed and were otherwise negative. Current Outpatient Prescriptions Medication Sig Dispense Refill acetaminophen (TYLENOL) 500 MG tablet Take 500 mg by mouth as needed for Pain. allopurinol (ZYLOPRIM) 100 MG tablet TAKE ONE TABLET BY MOUTH ONCE DAILY 90 tablet 3 amitriptyline (ELAVIL) 25 MG tablet Take 10 mg by mouth nightly. atorvastatin (LIPITOR) 20 MG tablet Take 20 mg by mouth nightly. baclofen (LIORESAL) 10 MG tablet Take 10 mg by mouth nightly. cloNIDine (CATAPRES) 0.1 MG tablet TAKE ONE TABLET BY MOUTH TWICE DAILY 60 tablet 11 cyclobenzaprine (FLEXERIL) 10 MG tablet Take 10 mg by mouth 3 (three) times daily as ne eded for Muscle spasms. digoxin (LANOXIN) 0.125 MG tablet Take 1 tablet by mouth daily. At bedtime 90 tablet 3 HYDROcodone-acetaminophen (NORCO) 10-325 MG per tablet Take 1 tablet by mouth every 4 ( four) hours as needed for Pain. losartan (COZAAR) 25 MG tablet Take 25 mg by mouth daily. magnesium chloride (MAG64) 64 mg EC tablet Take 2 tablets by mouth daily. 180 tablet 3 potassium chloride (K-DUR,KLOR-CON) 20 MEQ tablet Take 1 tablet by mouth daily. 90 tabl et 3 sotalol (BETAPACE) 80 MG tablet Take 1 tablet by mouth every 12 (twelve) hours. 180 tab let 3 torsemide (DEMADEX) 20 MG tablet Take 2 tablets by mouth 2 (two) times daily. 120 table t 11 traZODone (DESYREL) 100 MG tablet Take 1 tablet by mouth nightly. warfarin (COUMADIN) 4 MG tablet Take 4 mg by mouth twice a week. warfarin (COUMADIN) 6 MG tablet Take 6 mg by mouth. No current facility-administered medications for this visit. Physical Exam: BP 118/76 (BP Location: Left upper arm, Patient Position: Sitting) | Pulse 64 | Ht 1.626 m (5' 4") | Wt 73.5 kg (162 lb 1.6 oz) | BMI 27.82 kg/m General appearance: Pleasant, obese, not in acute distress. Uses 4ww. Neck: Supple without tracheal deviation or jugular venous distension. Head and ENT: Head is atraumatic. The oropharynx is without erythema or thrush. Eyes: Anicteric. The extraocular muscle movements are normal. Lungs: Clear to auscultation bilaterally. There are no wheezes. Heart: Regular rate and rhythm without any rub, gallop. Grade 2 systolic murmur all over p recordium, including rad to axilla. Abdominal exam: Soft and nontender with normal bowel sounds. Musculoskeletal: No costovertebral angle tenderness bilaterally. Extremities: Warm to touch with +1 bilat leg edema. There is no cyanosis. Stasis on both lower legs. Large scar on left lower leg. Skin: There are no rashes, petechiae. Neurological: Awake, alert, and oriented to time, place, and person. Normal gross motor po wer. There is no asterixis. Psychiatric: The patient s behavior is normal. Judgment and thought content are normal. Lab Results Component Value Date BUN 19 12/05/2018 CREATININE 0.87 12/05/2018 EGFR 63 12/05/2018 NA 143 12/05/2018 K 4.2 12/05/2018 CL 98 12/05/2018 CO2 30 12/05/2018 CA 9.9 12/05/2018 PHOS 4.1 12/05/2018 MG 1.7 12/05/2018 ALB 4.0 12/05/2018 HGB 14.2 12/05/2018 URICACID 6.5 12/05/2018 WBC 8.6 12/05/2018 HCT 41.8 12/05/2018 LABPROT 141.7 12/05/2018 Assessment: Ms. Castillo is a 78 y.o. female patient with stage IIIA CKD on a background of diabetes & hyp ertension. The most likely pathology here is that of diabetic nephropathy +/- hypertensive n ephrosclerosis/arteriolosclerosis. RENAL FUNCTION: Stable BLOOD PRESSURE: Reports controlled BLOOD SUGAR: Reports it controlled ELECTROLYTES: K and mag improved with supplement ANEMIA: None VITAMIN D: To be checked thru your office PARATHYROID HORMONE: Ok URIC ACID: Improved with Allopurinol PROTEINURIA: Trivial URINALYSIS: No UTI or hematuria VOLUME STATUS: Euvolumic. Discussions/Recommendations: I discussed today with Ms.. Castillo the meaning of her CKD and the interaction of that with h er diabetes & hypertension. I stressed the importance of keeping her BG & BP controlled and avoiding getting dehydrated if we are to have a chance at helping preserve her renal functi on. She showed good understanding. I gave her instructions on how to chart her blood press ure in the appropriate manner at home. She is to call us if they fall outside of the optima l provided range. She will bring her sphygmomanometer for validation once a year. She will strictly abide by a low salt & low purine diet and will avoid all kinds of NSAIDs for analg esia. Also: Continue torsemide 20mg PRN, she knows potassium 20mEq and Mag 64mg when she takes this. She will report back to me her home BP readings in 1 week. At that time, I will decide w hether any change to his vasoactive regimen is warranted. She will continue to F/U with your office regularly. She will have a RFP, Magnesium, CBC, uric acid, Urine total blzwdbd-gc-cyaltiifim ratio before she comes back in [address] Mijares for the opportunity to see this patient in F/U today. Please do not hesitate to call me at any time with questions or concerns. Truly yours, Veto VALVERDE [facility] Plan of Treatment +--------+ + + + + | Date | Type | Specialty | Care Team | Description | +--------+ + + + + | 03/24/ | Office | Cardiology | Rajendra Fowler, | | | 2018 | Visit | | MD [address] | | | | | | [place] | | | | | | [place] [address] | | | | | | [phone] | | | | | | | | +--------+ + + + + | 06/11/ | Documentati | Cardiology | | | | 2018 | on Only | | | | +--------+ + + + + | 09/01/ | Office | Cardiology | Mary Moe PHOTOGRAPHY PROFESSOR | | | 2018 | Visit | | [address] | | | | | | [place] | | | | | | [address] | | | | | | | [...] + | Diagnosis | + + | Stage 2 chronic kidney disease - Primary | + + | Bilateral edema of lower extremity | + + | Edema | + + | Essential hypertension, benign | + + | Hypokalemia | + + | Hypopotassemia | + + | Hypomagnesemia | + + | Disorders of magnesium metabolism | + +
--- OUTSIDE RECORDS SUMMARY | ~2019-03-07 | XMS | Encounter Summary ---
Demographics + + + | Address | [address] | | | [place] [address] | + + + | Home Phone [...] Team Providers + +------+ + | Care Removable Prosthodontist Name | Role | Phone | + [...] | (Primary Dx) | | | | [place], | [address] [place] | | | | | [place] [address] | [place] [address] | | | | | [phone] | [phone] | | | | | | | [...] | | | | | [place] [address] | | | | | | [phone] | | | | | | | | +--------+ + + + + | 06/02/ | Appointment | Radiology | Capo Bermudez, | | | 2018 | | | GAMALIEL [address] | | | | | | [address] [place] | | | | | | [place] [address] | | | | | | [phone] | | | | | | | | | | | | 4Th Grade TeacherJaspal | | +--------+ + + + + [...]
--- OUTSIDE RECORDS SUMMARY | ~2019-03-07 | XMS | Encounter Summary ---
Demographics + + + | Address | [address] | | | [place] [address] | + + + | Home Phone | | + + + | Preferred Language | Unknown | + + + | Marital Status | | + + + | Congregational Affiliation | 1027 | + + + | Race | Unknown | + + + | Ethnic Group | Unknown | + + + Author + + + | Author | [email or web address] | + + + | Organization | [facility] | + + + | Address [...] Team Providers + +------+ + | Care Sheep Clipper Name | Role | Phone | [...] + | 12/11/ | Documentati | [facility] | | Pacemaker Check | | 2019 | on Only | [facility] [place] | | (remote ) | | | | [address] | | | | | | [place], [place] | | | | | | [address] | | | | | | [phone] | | | +--------+ + + + [...] None Primary electrophysiology provider: Mary Moe Device slp teacher: [employer] Device type: Dual chamber Battery Longevity: ok [...] | | | | | | [place] [address] | | | | | | [phone] | | | | | | | [...] [place] | | | | | | [address] | | | | | | | [...]
--- OUTSIDE RECORDS SUMMARY | ~2019-03-07 | XMS | Encounter Summary ---
Demographics + + + | Address | [address] | | | [place] [address] | + + + | Home Phone [...] Team Providers + +------+ + | Care Morphology Teacher Name | Role | Phone | [...] | | both | [address] | [place], | | | | | shoulders | [place], | [place] | | | | | Chronic left | [place] [address] | [address] | | | | | shoulder | Phone: | Phone: | | | | | pain | [phone] | [phone] | | | | | | Fax: | Fax: | | | | | | [phone] | [phone] | + + + + + + + Reason for Visit + + + | Reason | Comments | + + + | Follow-up | Same Day Injection: BILATERAL L4/L5 TFESI | + + + Encounter Details +--------+---------+ + + + | Date | Type | Department | Care Team | Description | +--------+---------+ + + + | 03/03/ | Office | [facility] | Capo Bermudez, | Lumbar radiculopathy | | 2019 | Visit | PHYSIATRY [address] | PA-C [address] | (Primary Dx); | | | | [place], | [address] [place] | 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 Date Last Reviewed: 12/12/201719993669-3882 [employer] [place]. [address] [place] [address], [place] [address]. All [facility] ts reserved. This information is not intended as a substitute for professional medical care. Always follow your healthcare professional's instructions. documented in this encounter Progress Notes Capo Bermudez PA-C - 03/03/2019 1300 PDTFormatting of this note might be different from [facility] original. CHIEF COMPLAINT: Chief Complaint Patient [...] but reports again this did improve after [facility] surgery. The patient does not report recent falls or trauma. She does not have bowel and bladder dysfunction. She does not have saddle anesthesia. Treatments for these complaints have included 8 weeks of physical therapy after her lumbar fusion. Lumbar fusion of L4/L5 [place] [address] Yong Pena in [place], use of hydrocodone 3 x/day and flexeril, [...] (multiple sessions over the years) and care asst. Unfortunately she continue s to have significant [...] | | | | | | [place] [address] | | | | | | [phone] | | | | | | | | +--------+ + + + + | 06/02/ | Appointment | Radiology | Capo Bermudez, | | | 2019 | | | PA-C [address] | | | | | | [address] [place] | | | | | | [place] [address] | | | | | | [phone] | | | | | | | | | | | | [place], [place] | | +--------+ + + + [...] + +--------+ + + | * [facility] Orthopedic Surgery - | Routin | [...]
--- OUTSIDE RECORDS SUMMARY | ~2019-03-07 | XMS | Encounter Summary ---
Demographics + + + | Address | [address] | | | [place] [address] | + + + | Home Phone | | + + + | Preferred Language | Unknown | + + + | Marital Status | | + + + | Anabaptist Affiliation | 1027 | + + + | Race | Unknown | + + + | Ethnic Group | Unknown | + + + Author + + + | Author | [employer] | + + + | Organization | [facility] [employer] | + + + | Address [...] Team Providers + +------+ + | Care Marble Mason Name | Role | Phone | [...] + | 03/04/ | Documentati | [facility] [place] | Marilin Garcia | Pacemaker Check (in | | 2019 | on Only | Cardiology [place] | | [facility]) | | | | [address] | | | | | | [facility] [place] | | | | | | [address] | | | | | | [phone] | | | +--------+ + + + [...] | | | | | | [place] [address] | | | | | | [phone] | | | | | | | [...] [place] | | | | | | [address] | | | | | | | [...]
--- OUTSIDE RECORDS SUMMARY | ~2019-03-07 | XMS | Encounter Summary ---
Demographics + + + | Address | [address] | | | [place] [address] | + + + | Home Phone | | + + + | Preferred Language | Unknown | + + + | Marital Status | | + + + | Yazdanism Affiliation | 1027 | + + + | Race | Unknown | + + + | Ethnic Group | Unknown | + + + Author + + + | Author | [employer] | + + + | Organization | [facility] [employer] | + + + | Address [...] Team Providers + +------+ + | Care Biomedical Engineering Technologist Name | Role | Phone | [...] + | 01/05/ | Refill | [facility] [place] | Suzanna De La O, | Medication Refill | | 2018 | | Cardiology [place] | [place] | | | | | [address] | | | | | | [place] | | | | | | [address] | | | | | | [phone] | | | +--------+--------+ + + + [...] | | | | | | [place] [address] | | | | | | [phone] | | | | | | | [...] [place] | | | | | | [address] | | | | | | | [...]
--- OUTSIDE RECORDS SUMMARY | ~2019-03-07 | XMS | Encounter Summary ---
Demographics + + + | Address | [address] | | | [place] [address] | + + + | Home Phone | | + + + | Preferred Language | Unknown | + + + | Marital Status | | + + + | Amish Affiliation | 1027 | + + + | Race | Unknown | + + + | Ethnic Group | Unknown | + + + Author + + + | Author | [employer] | + + + | Organization | [facility] [employer] [facility] | + + + | Address [...] Providers + +------+ + | Care Steam Tunnel Feeder Name | Role | Phone | + +------+ + | Jesus Mijares MD | PCP | Unavailable | + +------+ + Encounter Details +--------+---------+ + + + | Date | Type | Department | Care Team | Description | +--------+---------+ + + + | 12/17/ | Office | [facility]ph[facility] | Veto Neri, | 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 Call our office or your PCP if [...] in her back every few months in [place]. Her chronic lower leg edema has im proved, she stopped taking torsemide and potassium supplement for the past couple of weeks. she denies any blurred vision tinnitus, headache, fever, chills, or cough. No nausea, vom iting, abdominal pain, diarrhea, melena, or hematochezia. No chest pain, palpitation, dizzi ness, loss of consciousness, orthopnea, paroxysmal nocturnal dyspnea. Occasionally eats crackers, mongolian food and other high sodium foods at [...] RFP, Magnesium, CBC, uric acid, Urine total axxpqfw-fz-orgbunwqhi ratio before she comes back in [address]. [address] Mijares for the opportunity to see this patient in F/U today. Please do not hesitate to call me at any time with questions or concerns. Truly yours, Veto VALVERDE [facility] Nephrologyin this encounter Plan of Treatment [...] | | | | | | [place] [address] | | | | | | [phone] | | | | | | | | +--------+ + + + + | 06/11/ | Documentati | Cardiology | | | | 2018 | on Only | | | | +--------+ + + + + | 09/01/ | Office | Cardiology | Mary Moe SURGERY TECHNICIAN | | | 2018 | Visit | | [address] | | | | | | [place] | | | | | | [address] | | | | | | | [...]
--- OUTSIDE RECORDS SUMMARY | ~2019-03-07 | XMS | Encounter Summary ---
Demographics + + + | Address | [address] | | | [place] [address] | + + + | Home Phone | | + + + | Preferred Language | Unknown | + + + | Marital Status | | + + + | Temple Affiliation | Unknown | + + + [...] Team Providers + +------+ + | Care Bonding Supervisor Name | Role | Phone | [...] | Transcriptions | + + | Interface, Grounds Maintenance Manager In - 07/17/2006 3:06 AM PDT | | [place] [address] | | [place], [place] [address] | | [facility] | | [id number] Date: 08/12/2001Name: Guerrero Castillo SURGEON: | | Jayson Mccoy M.D.GARDEN CENTER MANAGER SURGEON: Chrissie Koch | | ToriPREOPERATIVE DIAGNOSIS:Left-sided [...] regulations and other insuranceguidelines, I certify that aJyson Heath | | Tori Mccoy was present andparticipated throughout the entirety of the | | procedure.Chrissie Koch M.D. Jayson Mccoy M.D.MM/x53D: | | 08/12/2001T: 08/13/[id number]: | |otosclerosis. | | | |SPECIMENS REMOVED: [...] | | | | | | | |[phone] | | | |CC: | + + documented in this encounter Visit Diagnoses Not on filedocumented in this encounter"
--- OUTSIDE RECORDS SUMMARY | ~2019-03-07 | XMS | Encounter Summary ---
Demographics + + + | Address | [address] | | | [place] [address] | + + + | Home Phone | | + + + | Preferred Language | Unknown | + + + | Marital Status | | + + + | Yarsanism Affiliation | Unknown | + + + | Race | White | + + + | Ethnic Group | Not or | + + + Author + + + | Author | [facility] | + + + | Organization | [facility] | + + + | [...] Team Providers + +------+ + | Care Pattern Stamper Name | Role | Phone | + [...] as of this encounter Progress Notes Interface, Chemical Plant Worker In - 07/17/2006 3:06 AM PDTCLINIC DATE: [...] surgery. Jayson Mccoy M.D. SHAJI / CHARY [id number] / [id number] / [id number] / [id number] signed by Interface, Chemical Plant Worker In at 07/17/2006 3:06 AM PDTdocume nted in this encounter Plan of Treatment Not on filedocumented as of this encounter Visit Diagnoses Not on filedocumented in this encounter"
--- OUTSIDE RECORDS SUMMARY | ~2019-03-07 | XMS | Encounter Summary ---
Demographics + + + | Address | [address] | | | [place] [address] | + + + | Home Phone | | + + + | Preferred Language | Unknown | + + + | Marital Status | | + + + | Bahai Affiliation | Unknown | + + + [...] Providers + +------+ + | Care Coffee Machine Technician Name | Role | Phone | [...] as of this encounter Progress Notes Interface, Title Curative Specialist In - 05/15/2006 1:04 AM PDTCLINIC DATE: [...] bypass. Indra Ramos M.D. CD / HS [id number] / [id number] / [id number] / cc: Jesus Mijares M.D. [address] [place] [address] Geoffrey Castro M.D. [address] [place], [place] [id number] signed by Interface, Title Curative Specialist In at 05/15/2006 1:0 4 AM PDTdocumented in this encounter Plan of Treatment Not on filedocumented as of this encounter Visit Diagnoses Not on filedocumented in this encounter"
--- OUTSIDE RECORDS SUMMARY | ~2019-03-07 | XMS | Clinical Summary ---
Demographics + + + | Address | [address] | | | [place] [address] | + + + | Home Phone [...] Team Providers + +------+ + | Care Foam Rubber Molder Name | Role | Phone | [...] + | Overview: Sylvia Rodriguez53 tamara, model 691996, #[id number] lead was | | placed into the right ventricle and screwed intoposition on the | | septum, midway between the apex and outflow tract. Thefinal | | pacing threshold was 1 V at 0.5 msec, with R waves of 5.9 mV and | | theimpedance was 550 ohms. There was no diaphragmatic pacing at | | 10 V. Modavanti.comtronic model 5076-45 cm lead was placed into [...] ohms. The leads were attached to a Yotta280 Etrinsa 8 | | , model 971976,serial #[id number] pacemaker. FINAL | | SETTINGS FOR THE [...] | 2019 | Encounter | | PAGordy Stator Plate Washer, | radiculopathy; | | | | | [...] | Kana | | | | | [place] | | + + + + + | High cholesterol | Brother | Kana | from stroke age 73 | | | | [place] | | + + + + + | Arthritis | Mother | Ada | Hands | | | | [place] | | + + + + + + + +--------+ + | Relation | Name | Status | Comments | + + +--------+ + | Brother | Kana | | | | | [place] | | | + + +--------+ + | Mother | Ada | | | | | [place] | | | + + +--------+ + [...] | | | | | [place] [address] | | | | | | [phone] | | | | | | | | +--------+ + + + + | 06/02/ | Appointment | | Capo Bermudez, | | | 2019 | | | PA-C [address] | | | | | | [address] [place] | | | | | | [place] [address] | | | | | | [phone] | | | | | | | | | | | | Stator Plate Washer [place] | | +--------+ + + + [...] | | t Plan | ID | kenndei | | | | | | / | | Dates | | | | | | Group | | | | | | + +--------+ +--------+ +---------+--------+ | MEDICARE | MEDICA | [id number] | 02/12/20 | [phone] | | Medica | | | RE | | 07-Pre | 5 | | re | | | PART A | | sent | | | | | | AND B | | | | | | + +--------+ +--------+ +---------+--------+ | AARP | AARP | [id number] | 02/12/20 | [phone] | | Indemn [...] Person | Self | [birth year] | [address] | | | al/Fam | | 1940 | [phone] | [place] | | | [place] | | | 5 (Home) | [address] | + +--------+ +--------+ + + Advance Directives Patient has advance care planning documents on file. For more information, please contact:[facility] [place] [address]
[~2019-03-07 11:24] MED LIST: ACEBUTOLOL HCL200 MG; ALLOPURINOL100 MG PO; AMITRIPTYLINE H10 MG PO; AMITRIPTYLINE H25 MG; ATORVASTATIN CA20 MG PO; BACLOFEN10 MG PO; BACLOFEN20 MG PO; CLONIDINE HCL0.1 MG PO; CYCLOBENZAPRINE10 MG; DIGITEK250 MCG; DIGOXIN125 MCG PO; GLIPIZIDE XL5 MG; HYDROCHLOROTH12.5 MG; HYDROCODON-ACE1 EA14; HYDROCODON-ACE1 EAC8 PO; LISINOPRIL40 MG; LOSARTAN POTASS25 MG PO; METFORMIN HCL500 MG; SOTALOL AF80 MG PO; TORSEMIDE20 MG PO; TRAZODONE HCL100 MG PO; TRAZODONE HCL50 MG PO; VYTORIN 10-401 EACH PO; WARFARIN SODIUM4 MG PO
--- OUTSIDE RECORDS SUMMARY | 2019-03-07 11:26 | XMS ---
PreManage Notification: SHAVONNE ESTEBAN Security Software Engineer Events No recent Security Events currently on file CRITERIA MET - PDMP CARE PROVIDERS JONATHAN ROBLES Internal Medicine: Cardiovascular Disease Current GERI PHONE: Unknown Keith has no Care Guidelines for this patient. E.Liliana VISIT COUNT (12 MO.) 1 TOMMY Vigil TOTAL 1 NOTE: Visits indicate total known visits. ED/UCC VISIT TRACKING (12 MO.) 03/07/2019 11:24 TOMMY Velázquez OR TYPE: Emergency COMPLAINT: - BLOOD PRESSURE PROBLEM INPATIENT VISIT TRACKING (12 MO.) No inpatient visits to display in this time frame [id number]
[2019-03-07] MEDS ORDERED: DIGOX125 MCG PO (14:27)
--- NOTE | 2019-03-08 07:35 | EKG ---
[facility] [address] [facility] [place], [place] [address] Signed Atrial-paced rhythm with prolonged AV conduction Minimal voltage criteria for LVH, may be normal variant Possible Anteroseptal infarct , age undetermined Abnormal ECG No previous ECGs available Confirmed by STEPHANI ESPINOZA MD ([id number]) on 03/08/2019 7:35:38 AM Electronically Signed By: STEPHANI ESPINOZA MD 03/08/19 0735 PATIENT NAME: EULALIASHAVONNE [place] Electrocardiogram DATE OF : 44 PHYSICIAN: STEPHANI ESPINOZA MD REPORT #: [id number] REPORT IS CONFIDENTIAL AND NOT TO BE RELEASED WITHOUT AUTHORIZATION
== END 2019-03-07 14:45 | disposition home or self-care (01) ==
LOC: ED 11:24
DX: I48.0 Paroxysmal atrial fibrillation (principal); I10 Essential (primary) hypertension; I25.2 Old myocardial infarction; I11.0 Hypertensive heart disease with heart failure; I50.9 Heart failure, unspecified; Z90.49 Acquired absence of other specified parts of digestive tract; Z90.710 Acquired absence of both cervix and uterus; Z88.0 Allergy status to penicillin; Z88.2 Allergy status to sulfonamides; Z79.01 Long term (current) use of anticoagulants; Z79.899 Other long term (current) drug therapy
CPT/HCPCS: 71045; 80053; 80162; 83880; 84484; 85025; 93005; 93010; 99285-25

== ENCOUNTER 2019-06-23 14:17 | Emergency (ER) | payer MEDICARE ==
[~2019-06-23] VITALS: Ht 162.6 cm; Wt 72.6 kg
[~2019-06-23 14:17] MED LIST changes: +DIGOX125 MCG PO; +WARFARIN SODIUM6 MG PO
--- OUTSIDE RECORDS SUMMARY | 2019-06-23 14:20 | XMS ---
PreManage Notification: SHAVONNE ESTEBAN Security Ct Manager Events No recent Security Events currently on file CRITERIA MET - PDMP CARE PROVIDERS JONATHAN ROBLES Internal Medicine: Cardiovascular Disease Current GERI PHONE: Unknown Keith has no Care Guidelines for this patient. EYamilet VISIT COUNT (12 MO.) 2 TOMMY Vigil TOTAL 2 NOTE: Visits indicate total known visits. ED/UCC VISIT TRACKING (12 MO.) 06/23/2019 14:19 [facility] [place] TYPE: Emergency COMPLAINT: - RIB PAIN, INJ 03/07/2019 11:24 [facility] [place] TYPE: Emergency COMPLAINT: - BLOOD PRESSURE PROBLEM DIAGNOSES: - Chest pain, unspecified - Old myocardial infarction - Essential (primary) hypertension - Hypertensive heart disease with heart failure - Other residential (current) drug therapy - Allergy status to sulfonamides status - Acquired absence of other specified parts of digestive tract - Acquired absence of both cervix and uterus - Heart failure, unspecified - Paroxysmal atrial fibrillation - MCC (current) use of anticoagulants - Allergy status to penicillin INPATIENT VISIT TRACKING (12 MO.) No inpatient visits to display in this time frame [email or web address]
== END 2019-06-23 15:16 | disposition home or self-care (01) ==
LOC: ED 14:17
DX: S20.212A Contusion of left front wall of thorax, initial encounter (principal); I11.0 Hypertensive heart disease with heart failure; I50.9 Heart failure, unspecified; I25.2 Old myocardial infarction; I48.91 Unspecified atrial fibrillation; Z88.0 Allergy status to penicillin; Z88.2 Allergy status to sulfonamides; Z79.01 Long term (current) use of anticoagulants; Z79.899 Other long term (current) drug therapy; W01.198A Fall on same level from slipping, tripping and stumbling with subsequent striking against other object, initial encounter
CPT/HCPCS: 71101; 99283-25

== ENCOUNTER 2019-10-18 13:02 | Observation (INO) | payer MEDICARE ==
[~2019-10-18] VITALS: Ht 162.6 cm; Wt 70.3 kg
--- OUTSIDE RECORDS SUMMARY | ~2019-10-18 | XMS | Encounter Summary ---
Demographics + + + | Address | [address] | | | [place] [address] | + + + | Home Phone | | + + + | Preferred Language | Unknown | + + + | Marital Status | | + + + | Denominational Affiliation | 1027 | + + + | Race | Unknown | + + + | Ethnic Group | Unknown | + + + Author + + + | Author | [facility] | | | and [place] | + + + | Organization | [facility] | | | and [place] | + + + | Address | Unknown | + + + | Phone | Unavailable | + + + Support + + +---------+ + | Name | Relationship | Address | Phone | + + +---------+ + | Cruz Mariano | ECON | Unknown | | + + +---------+ + | Carmine Mariano | ECON | Unknown | | + + +---------+ + Care Team Providers + +------+ + | Care Harvest Worker Name | Role | Phone | + +------+ + | Jesus Mijares MD | PCP | | + +------+ + Reason for Visit + + + | Reason | Comments | + + + | Back Pain | | + + + Encounter Details +--------+---------+ + + + | Date | Type | Department | Care Team | Description | +--------+---------+ + + + | 05/01/ | Office | [facility] | [place], | Chronic bilateral | | 2018 | Visit | PHYSIATRY [address] | [address] | low back pain with | | | | [place], | [address] [place], | sciatica, sciatica | | | | [place] [address] | [place] [address] | laterality | | | | [phone] | [phone] | unspecified (Primary | | | | | | Dx); Adolescent | | | | | | idiopathic scoliosis | | | | | | of lumbar region; | | | | | | Spinal stenosis of | | | | | | lumbar region | | | | | | without neurogenic | | | | | | claudication; | | | | | | Sacroiliitis, not | | | | | | elsewhere classified | | | | | | ([facility]); Trochanteric | | | | | | bursitis of both | | | | | | hips; Complete tear | | | | | | of right rotator | | | | | | cuff | +--------+---------+ + + + Social History + +-------+ +--------+------+ | Tobacco Use | Types | Packs/Day | Years | Date | | | | | Used | | + +-------+ +--------+------+ | Never Smoker | | | | | + +-------+ +--------+------+ + +---+---+---+ | Smokeless Tobacco: | | | | | Never Used | | | | + +---+---+---+ + + +---------+ + | Alcohol Use | Drinks/Week | oz/Week | Comments | + + +---------+ + | No | | | | + + +---------+ + + + + | Sex Assigned at | Date Recorded | | | | + + + | Not on file | | + + + + + + + | Job Start Date | Occupation | Industry | + + + + | Not on file | Not on file | Not on file | + + + + + + + + | Travel History | Travel Start | Travel End | + + + + + + | No recent travel history available. | + + documented as of this encounter Last Filed Vital Signs + + + + + | Vital Sign | Reading | Time Taken | Comments | + + + + + | Blood Pressure | 113/67 | 05/01/2018 10:10 AM | | | | | PDT | | + + + + + | Pulse | 60 | 05/01/2018 10:10 AM | | | | | PDT | | + + + + + | Temperature | - | - | | + + + + + | Respiratory Rate | - | - | | + + + + + | Oxygen Saturation | - | - | | + + + + + | Inhaled Oxygen | - | - | | | Concentration | | | | + + + + + | Weight | 88.5 kg (195 lb) | 05/01/2018 10:10 AM | | | | | PDT | | + + + + + | Height | 162.6 cm (5' 4") | 05/01/2018 10:10 AM | | | | | PDT | | + + + + + | Body Mass Index | 33.47 | 05/01/2018 10:10 AM | | | | | PDT | | + + + + + documented in this encounter Progress Sheryl Lipscomb PA-C - 05/01/2018 10:00 AM PDTFormatting of this note might be differe nt from the original. CHIEF COMPLAINT: Chief Complaint Patient presents with Back Pain HISTORY OF PRESENT ILLNESS: The patient is a 78 y.o. female being seen today in follow-up for complaints of low back pa in. The patient has been seen for this complaint in the past, with initial visit started b tomi Chaudhry. Previously it was recommended that she receive bilateral L4/L5 epidural i njection for spinal stenosis along with a right greater trochanteric bursa injection. She l ast received this last 02/06/2018. She reports this was the worse injection she has received, it did not give her near the amount of relief or duration of relief all the other injection s have given her. She reports 50% relief for only 2 months. 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 This was last done 01/03/2018. She reports only 1 month of relief and is hoping for an other one. She describes the pain as constant dull with occasional sharpness depending on movement. H er symptoms worsen with standing and walking and lying on her sides at night. Her symptoms improve with rest, sitting down. She has a hard time standing for long periods in her kitc hen. The patient does describe numbness of the bilateral lower extremities, but reports to have diabetic neuropathy, and does report this improved after the surgery. She does report weakness of the bilateral legs, but reports again this did improve after th e surgery. The patient does not report recent falls or trauma. She does not have bowel and bladder dysfunction. She does not have saddle anesthesia. Treatments for these complaints have included 8 weeks of physical therapy after her lumbar fusion. Lumbar [place] L4/L5 [place] [address] Yong Pena in [place], use of hydrocodone 3 x/day and flexeril, prior L4/L5 epidural injections, prior SI injections. She has continued right shoulder pain and decreased ROM due to right supraspinatus rupture. She is right handed. She cannot raise her shoulder up to brush her hair, to reach for t hings or eat with a fork due to increased pain. She denied any numbness/tingling/radicular symptoms into the arm. The hydrocodone improved this pain. Patient's medications, allergies, past medical, surgical, social and family histories were reviewed and updated as appropriate. CURRENT MEDICATIONS: Current Outpatient Prescriptions Medication Sig Dispense Refill acetaminophen (TYLENOL) 500 mg tablet Take 500 mg by mouth every 6 hours as needed for Pain. amitriptyline (ELAVIL) 25 mg tablet Take 25 mg by mouth nightly. (Patient taking differ ently: Take by mouth. Patient taking 0.25 mg nightly) atorvaSTATin (LIPITOR) 20 mg tablet Take 20 mg by mouth. baclofen (LIORESAL) 20 mg tablet cloNIDine (CATAPRES) 0.1 mg tablet Take 0.1 mg by mouth 3 times daily. cyclobenzaprine (FLEXERIL) 10 mg tablet Take 10 mg by mouth 3 times daily as needed. digoxin (LANOXIN) 50 mcg/mL solution Take 0.25 mg by mouth. HYDROcodone-acetaminophen (NORCO) 10-325 mg per tablet Take 1 tablet by mouth every 4 h ours as needed. losartan (COZAAR) 25 mg tablet Take 25 mg by mouth. POTASSIUM PO Take 99 mg by mouth. sotalol (BETAPACE) 80 mg tablet Take 80 mg by mouth 2 times daily. torsemide (DEMADEX) 20 mg tablet Take 20 mg by mouth 3 times daily. traZODone (DESYREL) 50 mg tablet Take 100 mg by mouth nightly. warfarin (COUMADIN) 4 MG tablet Take 4 mg by mouth Daily. 4mg daily Saturday and Saturday, 6 mg rest of the days No current facility-administered medications for this visit. ALLERGIES: Allergies Allergen Reactions Penicillin V Potassium Sulfa Antibiotics REVIEW OF SYSTEMS: (in the last 24 hours) GENERALLY: No fever, chills, weight changes. EYES: No vision changes. EARS, NOSE, AND THROAT: No hearing loss or tinnitis,no difficulty swallowing, no hoarseness . NEUROMUSCULAR: Please see the review of systems discussed above in the history of present illness. In addition, the patient has no dizziness, no blackouts, no headaches. CARDIOVASCULAR: No chest pain, no palpitations PULMONARY: No shortness of breath, no cough. GASTROINTESTINAL: No nausea, vomiting or diarrhea GENITOURINARY: No dysuria or hematuria SKIN: No rashes. HEMATOLOGIC/LYMPHATIC: No abnormal bleeding PHYSICAL EXAMINATION: Vitals: 05/01/18 1010 BP: 113/67 Pulse: 60 PainSc: 9 PainLoc: Shoulder GENERAL: The patient is well developed and well nourished. She does not appear uncomfortab le when seated. HEENT: HEAD/FACE: EYES: EARS: NASOPHARNYX: OROPHARNYX: Normocephalic and atraumatic. There are no areas of recent trauma. Normal sclerae without icterus. No drainage or tenderness. Clear without drainage. Clear without erythema. SKIN Limited skin exam shows no significant rashes or lesions. There are scars in the lumb ar region. CHEST: The patient is in no acute respiratory distress with unlabored respirations. HEART: There is lower extremity edema 2+ pitting. ABDOMEN: The patient is obese. NEUROLOGIC: The patient is awake, alert, and oriented to time, place, person. She follows simple and complex commands. Her speech is fluent. She comprehends speech well. She has no apparent deficits with short or assisted memory. She has appropriate fund of knowledge Cranial nerves 2-12 appear grossly intact. Sensory exam does not show diminished sensation to light touch in the lower extremities. REFLEX: RIGHT LEFT PATELLAR 0 1 ACHILLES 0 0 MUSCULOSKELETAL There is no major palpable deformity of the spine. Straight leg raise and slump-sit are negative. Gutierrez's maneuver and impingement testing were negative for any groin pain. There was tenderness to palpation over the bilateral gre ater trochanters and more mild over the sacral sulci. The patient localized the majority of the pain to the L3/L4 region above the fusion with more pain to the bilateral SI joints. L umbar facet loading was positive. Strength testing showed 5/5 strength throughout the lower extremities. The patient was able to heel and toe walk without difficulty. There was no r edness, effusion, warmth or joint line tenderness in the knees or ankles. Range of motion testing of the cervical spine was unremarkable. Spurling sign was negative. RADIOGRAPHIC REVIEW: MRI was reviewed with the patient, the most recent MRI shows lumbar spinal stenosis at the L3/L4 level which is above the level of fusion, she has lumbar scoliosis, multi-level forami nal stenosis and multi-level facet arthritis. ASSESSMENT: 1. Chronic bilateral low back pain with sciatica, sciatica laterality unspecified 2. Adolescent idiopathic scoliosis of lumbar region 3. Spinal stenosis of lumbar region without neurogenic claudication 4. Sacroiliitis, not elsewhere classified (HCC) 5. Trochanteric bursitis of both hips 6. Complete tear of right rotator cuff PLAN: 1. Patient will undergo L4/L5 bilateral epidural injections today. We will call over to Dr Elva Chaudhry and ask if he can use the Celestone instead of the dexamethazone. I told her i f this next injections fails to give her significant relief it most likely is because she saul s worsening DDD of the lumbar spine and worsening spinal stenosis. 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 Unfortunately she continue s to have significant discomfort. It appears to me that the pain is primarily coming from t he central spinal stenosis at L3/L4. I did feel that she would be a good candidate for inte rventional procedures as the last epidural injection greatly helped. I offered bilateral L4 /L5 epidural injections with a bilateral trochanteric bursa injection to be done later. She is on Warfarin and will have to follow anti-coagulation protocol. We discussed with all fo ur locations, less steroid will be used among the four locations. 2. Medications have been reviewed at today's visit with no changes made at this time. 3. The patient will follow up in three months from today for another same day injection. 4. Right shoulder pain - Full thickness tear of right supraspinatus. Subacromial steroid i njection on 01/03/18 with moderate relief but pain has returned. We did perform a right subac romial steroid injection in office today. Description of procedure: After the patient gave consent for the procedure the area for in jection was located by palpation and was marked. The area was then prepped with Betadine sw abs and alcohol. A 25 gauge 1 1/2 inch needle was then inserted into the joint subacromial space. Attempted aspiration showed no fluid in the needle hub. A combination of 1 mL of 40 mg/mL Kenalog and 2 mL each of 0.5% Bupivicaine and 1% Lidocaine was injected. The patient tolerated the procedure well and was instructed to ice the area for 15-20 minut es several times over the next few days and to watch for any signs of infection. ELECTRONICALLY SIGNED BY: Sheryl Alvarado PA-C, 05/01/2018 documented in this encounter Plan of Treatment +--------+ + + + + | Date | Type | Specialty | Care Team | Description | +--------+ + + + + | 11/17/ | Office | Cardiology | Rajendra Fowler, | | | 2019 | Visit | | MD [address] | | | | | | [place], | | | | | | [place] [address] | | | | | | [phone] | | | | | | | | +--------+ + + + + | 12/23/ | Procedure | Cardiology | | | | 2019 | visit | | | | +--------+ + + + + | 03/24/ | Procedure | Cardiology | | | | 2019 | visit | | | | +--------+ + + + + | 06/23/ | Procedure | Cardiology | | | | 2019 | visit | | | | +--------+ + + + + documented as of this encounter Results FL SRINIVAS Lumbar Transforaminal (05/01/2018 12:01 PM PDT) + + | Specimen | + + | | + + + + | Addenda | + + | Addendum by Nilson Chaudhry MD on 06/09/2018 12:21 PM 05/01/2018 Bilateral | | Transforaminal Epidural Steroid Injections Diagnosis: Lumbar radiculopathy | | ICD-10 Code M54.16 Rebecca Castillo presents to the fluoroscopy suite for | | fluoroscopically-guided bilateral L4-L5 transforaminal epidural steroid injections as | | part of conservative management for chronic pain with lumbar radiculopathy and | | degenerative disc disease. After informed consent was obtained, the patient lay in the | | prone position on the fluoroscopy table. The areas were identified under fluoroscopic | | guidance. The areas were prepped and draped in sterile fashion. A 25-gauge, 1.5-inch | | needle was inserted into each region and approximately 3 mL of buffered 1% lidocaine | | was infused. Then, a 22-gauge spinal needle was inserted into the posterior superior | | transforaminal space bilaterally and advanced into the epidural space under | | fluoroscopic guidance. Confirmation into the epidural space was obtained with infusion | | of approximately 1 mL of Omnipaque contrast which showed epidural flow as well as | | nerve sheath flow. Then, a combination of 2 mL of 1% lidocaine and 1.5 mL of 6 mg/mL | | Celestone was infused, divided between the two sides. The patient tolerated the | | procedure well without complications. Pre- and post-procedure blood pressures were | | stable. The patient was given verbal as well as written follow-up instructions. | | Prior to the start of the procedure, the following were performed and/or verified, | | including correct patient identity, correct site/side marked and visible, agreement on | | the procedure to be done, correct patient positioning and an accurate procedure | | consent form. Any safety precautions based on clinical history and/or medication use | | have been addressed. I personally performed the procedure above. 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 (and kyphoscoliosis), | | idiopathic | + + | Spinal stenosis of lumbar region without neurogenic claudication Spinal stenosis, | | lumbar region, without neurogenic claudication | + + | Sacroiliitis, not elsewhere classified (HCC) Sacroiliitis, not elsewhere classified | + + | Trochanteric bursitis of both hips Enthesopathy of hip region | + + | Complete tear of right rotator cuff | + + documented in this encounter Additional Health Concerns + + + + | Infection | Noted Time | Resolved Time | + + + + | Methicillin-resistant Staphylococcus aureus | 03/20/2017 12:00 AM | | | | PDT | | + + + + documented as of this encounter
--- OUTSIDE RECORDS SUMMARY | ~2019-10-18 | XMS | Encounter Summary ---
Demographics + + + | Address | [address] | | | [place] [address] | + + + | Home Phone | | + + + | Preferred Language | Unknown | + + + | Marital Status | | + + + | Adventist Affiliation | 1027 | + + + | Race | Unknown | + + + | Ethnic Group | Unknown | + + + Author + + + | Author | [facility] | | | and [place] | + + + | Organization | [facility] | | | and [place] | + + + | Address | Unknown | + + + | Phone | Unavailable | + + + Support + + +---------+ + | Name | Relationship | Address | Phone | + + +---------+ + | Cruz Conwayins | ECON | Unknown | | + + +---------+ + | Carmine Conwayins | ECON | Unknown | | + + +---------+ + Care Team Providers + +------+ + | Care Cold Mill Inspector Name | Role | Phone | + +------+ + PCP | Unavailable | + +------+ + Encounter Details +--------+ + + + + | Date | Type | Department | Care Team | Description | +--------+ + + + + | 09/13/ | Abstract | [facility] | [facility] | | | 2011 | | Conversion Location | [facility] | | | | | [phone] | | | +--------+ + + + + Social History + +-------+ +--------+------+ | Tobacco Use | Types | Packs/Day | Years | Date | | | | | Used | | + +-------+ +--------+------+ | Never Assessed | | | | | + +-------+ +--------+------+ + + + | Sex Assigned at [...] + + + | Blood Pressure | - | - | | + + + + + | Pulse | - | - | | + [...] + + + + | Weight | 106.6 kg (235 lb) | 02/26/2012 12:00 AM | | | | | PDT | | + + + + + | Height | 142.2 cm (4' 8") | 02/26/2012 12:00 AM | | | | | PDT | | + + + + + | Body Mass Index | 52.69 | 02/26/2012 12:00 AM | | | | | PDT | | + + + + + documented in this encounter Plan of Treatment +--------+ + + + + | Date | Type | Specialty | Care Team | Description | +--------+ + + + + | 11/17/ | Office | Cardiology | Rajendra Fowler, | | | 2020 | Visit | | [address] | | | | | | [place], | | | | | | [place] [address] | | | | | | [phone] | | | | | | | [...] + + documented as of this encounter Visit Diagnoses Not on filedocumented in this encounter
--- OUTSIDE RECORDS SUMMARY | ~2019-10-18 | XMS | Encounter Summary ---
Demographics + + + | Address | [address] | | | [place] [address] | + + + | Home Phone | | + + + | Preferred Language | Unknown | + + + | Marital Status | | + + + | Jew Affiliation | 1027 | + + + | Race | Unknown | + + + | Ethnic Group | Unknown | + + + Author + + + | Author | [facility] | | | and [place] | + + + | Organization | [facility] | | | [...] Team Providers + +------+ + | Care Hooker Operator Name | Role | Phone | + +------+ + | Jesus Mijares MD | PCP | | + +------+ + Encounter Details +--------+ + + + + | Date | Type | Department | Care Team | Description | +--------+ + + + + | 05/05/ | Orders Only | [facility] | Provider, | Chronic diastolic | | 2019 | | SYSTEM GENERIC OP | MD [address] | heart failure (HCC); | | | | CONVERSION [address] | [address] | Essential (primary) | | | | [address] [place], [place] | [place] [address] | hypertension; | | | | [address] | | Localized edema; | | | | [phone] | | Mixed | | | | | | hyperlipidemia; | | | | | | Encounter for | | | | | | therapeutic drug | | | | | | level monitoring; | | | | | | Diastolic congestive | | | | | | heart failure (HCC) | +--------+ + + + + Social [...] + + documented as of this encounter Plan of Treatment +--------+ + + + + | Date | Type | Specialty | Care Team | Description | +--------+ + + + + | 11/17/ | Office | Cardiology | Rajendra Fowler, | | | 2019 | Visit | | MD [address] | | | | | | [place], | | | | | | [place] [address] | | | | | | [phone] | | | | | | | | +--------+ + + + + | 12/23/ | Procedure | Cardiology | | | | 2019 | visit | | | | +--------+ + + + + | 03/24/ | Procedure | Cardiology | | | | 2020 | visit | | | | +--------+ + + + + | 06/23/ | Procedure | Cardiology | | | | 2019 | visit | | | | +--------+ + + + + + +------+--------+ + + | Name | Type | Priori | Associated Diagnoses | Order Schedule | | | | ty | | | + +------+--------+ + + | Basic Metabolic | Lab | Routin | Diastolic | Expected: | | Panel | | e | congestive heart | 09/11/2018, Expires: | | | | | failure (HCC) | 09/11/2019 | + +------+--------+ + + | Comprehensive | Lab | Routin | Chronic diastolic | Expected: | | Metabolic Panel | | e | heart failure (HCC) | 09/15/2018, Expires: | | | | | Essential (primary) | 09/15/2019 | | | | | hypertension | | | | | | Localized edema | | | | | | Mixed hyperlipidemia | | + +------+--------+ + + | Lipid Panel | Lab | Routin | Mixed | Expected: | | | | e | hyperlipidemia | 09/15/2018, Expires: | | | | | | 09/15/2019 | + +------+--------+ + + | Digoxin Level | Lab | Routin | Encounter for | Expected: | | | | e | therapeutic drug | 09/15/2018, Expires: | | | | | level monitoring | 09/15/2019 | + +------+--------+ + + documented as of this encounter Visit Diagnoses + + | Diagnosis | + + | Chronic diastolic heart failure (HCC) Chronic diastolic heart failure | + + | Essential (primary) hypertension Unspecified essential hypertension | + + | Localized edema Edema | + + | Mixed hyperlipidemia | + + | Encounter for therapeutic drug level monitoring Encounter for therapeutic drug | | monitoring | + + | Diastolic congestive heart failure (HCC) Unspecified diastolic heart failure | + + documented in this encounter Additional Health Concerns + + + + | Infection | Noted Time | Resolved Time | + + + + | Methicillin-resistant Staphylococcus aureus | 03/20/2017 12:00 AM | | | | PDT | | + + + + documented as of this encounter"
--- OUTSIDE RECORDS SUMMARY | ~2019-10-18 | XMS | Encounter Summary ---
Demographics + + + | Address | [address] | | | [place] [address] | + + + | Home Phone | | + + + | Preferred Language | Unknown | + + + | Marital Status | | + + + | Hindu Affiliation | 1027 | + + + | Race | Unknown | + + + | Ethnic Group | Unknown | + + + Author + + + | Author | [facility] | | | and [place] | + + + | Organization | [facility] | | | and [place] | + [...] Team Providers + +------+ + | Care Program Strategist Name | Role | Phone | + +------+ + | Jesus Mijares MD | PCP | | + +------+ + Encounter Details +--------+ + + + + | Date | Type | Department | Care Team | Description | +--------+ + + + + | 11/06/ | Hospital | [facility] | Christiano, | Chronic right | | 2018 | Encounter | MED CTR XRAY [address] | [address] Saucedo [address] | shoulder pain | | | | [place] | [facility] [place], | | | | | [place] [address] | [place] [address] | | | | | [phone] | [phone] | | | | | | | [...] + + documented as of this encounter Medications at Time of Discharge + + + +---------+ + + | Medication | Sig | Dispensed | Refills | Start | End Date | | | | | | Date | | + + + +---------+ + + | acetaminophen | Take 500 mg by mouth | | 0 | | | | (TYLENOL) 500 mg | every 6 hours as | | | | | | tablet | needed for Pain. | | | | | + + + +---------+ + + | atorvaSTATin | Take 20 mg by mouth. | | 0 | | | | (LIPITOR) 20 mg | | | | | | | tablet | | | | | | + + + +---------+ + + | baclofen | | | 0 | 11/05/19 | | | (LIORESAL) 20 mg | | | | 18 | | | tablet | | | | | | + + + +---------+ + + | cloNIDine | Take 0.1 mg by mouth | | 0 | | | | (CATAPRES) 0.1 mg | 3 times daily. | | | | | | tablet | | | | | | + + + +---------+ + + | cyclobenzaprine | Take 10 mg by mouth | | 0 | | | | (FLEXERIL) 10 mg | 3 times daily as | | | | | | tablet | needed. | | | | | + + + +---------+ + + | | Take 1 tablet by | | 0 | | | | HYDROcodone-acetamin | mouth every 4 hours | | | | | | ophen (NORCO) 10-325 | as needed. | | | | | | mg per tablet | | | | | | + + + +---------+ + + | sotalol (BETAPACE) | Take 80 mg by mouth | | 0 | | | | 80 mg tablet | 2 times daily. | | | | | + + + +---------+ + + | torsemide | Take 20 mg by mouth | | 0 | | | | (DEMADEX) 20 mg | 3 times daily. | | | | | | tablet | | | | | | + + + +---------+ + + | amitriptyline | Take 25 mg by mouth | | 0 | 06/27/20 | | | (ELAVIL) 25 mg | nightly. | | | 12 | 9 | | tablet | | | | | | + + + +---------+ + + | digoxin (LANOXIN) | Take 0.25 mg by | | 0 | | | | 50 mcg/mL solution | mouth. | | | | 9 | + + + +---------+ + + | losartan (COZAAR) | Take 25 mg by mouth. | | 0 | | | | 25 mg tablet | | | | | 9 | + + + +---------+ + + | POTASSIUM PO | Take 99 mg by mouth. | | 0 | | | | | | | | | 9 | + + + +---------+ + + | traZODone | Take 100 mg by mouth | | 0 | | | | (DESYREL) 50 mg | nightly. | | | | 9 | | tablet | | | | | | + + + +---------+ + + | warfarin | Take 4 mg by mouth | | 0 | | | | (COUMADIN) 4 MG | Daily. 4mg daily | | | | 9 | | tablet | Saturday, 6 mg rest | | | | | | | of the days | | | | | + + + +---------+ + + documented as of this encounter Plan of Treatment +--------+ + + + + | Date | Type | Specialty | Care Team | Description | +--------+ + + + + | 11/17/ | Office | Cardiology | Rajendra Fowler, | | | 2019 | Visit | | MD [address] | | | | | | [place], | | | | | | [place] [address] | | | | | | [phone] | | | | | | | [...] + + documented as of this encounter Procedures + +--------+ + + + | Procedure Name | Priori | Date/Time | Associated Diagnosis | Comments | | | ty | | | | + +--------+ + + + | XR SHOULDER RIGHT 2 | Routin | 11/06/2017 | Chronic right | Results for this | | + VW | e | 12:35 PM | shoulder pain | procedure are in the | | | | PST | | results section. | + +--------+ + + + documented in this encounter Results XR Shoulder Right 2 + Vw (11/06/2017 12:35 PM PST) + + | Specimen | + + | | + + + + + | Narrative | Performed At | + + + | XR SHOULDER RIGHT 2 + VW 11/06/2017 12:35 PM HISTORY: right | [facility] | | shoulder pain, possible OA. COMPARISON: None. FINDINGS: There | | | are no acute osseous findings. Moderate degenerative changes are | | | present of the AC joint. The glenohumeral joint is intact. Bone | | | mineralization is normal. Visualized chest shows no acute findings. | | | Soft tissue structures are unremarkable. 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 Dictated and Signed by: Sj | | | MD Lopez Electronically signed: 11/06/2017 2:14 PM | | + + + + + | Procedure Note | + + | Jeanmarie, Rad Results In - 11/06/2017 2:17 PM PST XR SHOULDER RIGHT 2 + VW 11/06/2017 | | 12:35 PMHISTORY: right shoulder pain, possible OA.COMPARISON: None.FINDINGS:There are no | | acute osseous findings. Moderate degenerative changes are presentof the AC joint. The | | glenohumeral joint is intact. Bone mineralization isnormal. Visualized chest shows no | | acute findings. Soft tissue structures areunremarkable. IMPRESSION -Moderate | | degenerative changes of AC joint.Dictated and Signed by: Sj Marroquin MD Electronically | | signed: 11/06/2017 2:14 PM | |There are no acute osseous findings. Moderate degenerative changes are present | |of the AC joint. The glenohumeral joint is intact. Bone mineralization is | |normal. Visualized chest shows no acute findings. Soft tissue structures are | |unremarkable. | | | |IMPRESSION - | |Moderate degenerative changes of AC joint. | | | |Dictated and Signed by: Sj Marroquin MD | | Electronically signed: 11/06/2017 2:14 PM | + + + +---------+ + + | Performing | Address | City/State/Zipcode | Phone Number | | Organization | | | | + +---------+ + + | [facility] | | | | + +---------+ + + documented in this encounter Visit Diagnoses + + | Diagnosis | + + | Chronic right shoulder pain Pain in joint, shoulder region | + + documented in this encounter Additional Health Concerns + + + + | Infection | Noted Time | Resolved Time | + + + + | Methicillin-resistant Staphylococcus aureus | 03/20/2017 12:00 AM | | | | PDT | | + + + + documented as of this encounter"
--- OUTSIDE RECORDS SUMMARY | ~2019-10-18 | XMS | Encounter Summary ---
Demographics + + + | Address | [address] | | | [place] [address] | + + + | Home Phone | | + + + | Preferred Language | Unknown | + + + | Marital Status | | + + + | Restoration Affiliation | 1027 | + + + | Race | Unknown | + + + | Ethnic Group | Unknown | + + + Author + + + | Author | [facility] | | | and [place] | + + + | Organization | [facility] | | | and [...] Team Providers + +------+ + | Care Corporate Legal Assistant Name | Role | Phone | + +------+ + PCP | Unavailable | + +------+ + Encounter Details +--------+ + + + + | Date | Type | Department | Care Team | Description | +--------+ + + + + | 04/09/ | Hospital | [facility] | Fadi Awad | | | 2011 | Encounter | MED CTR XRAY [address] | [address] | | | | | [place] | [address] [place], [place] | | | | | [place] [address] | [address] | | | | | [phone] | | | | | | [...] | | | | | | [place] [address] | | | | | | [phone] | | | | | | | [...] + +--------+ + + + | XR LUMBAR SPINE 4 + | | 01/21/2012 | | Results for this | | VW | | 1:13 PM | | procedure are in the | | | | PDT | | results section. | + +--------+ + + + documented in this encounter Results XR Lumbar Spine 4 + Vw (01/21/2012 1:13 PM PDT) + + | Specimen | + + | | + + + + + | Narrative | Performed At | + + + | [facility] Diagnostic Imaging Department | [facility] | | [address] [facility] | [facility] | | LUMBAR SPINE CLINICAL | DIAG IMG | | HISTORY: BACK PAIN. FINDINGS: AP, lateral and lateral flexion | | | extension views of the lumbar spine are reviewed. There i s a | | | severe dextro rotatory scoliosis of the lumbar spine centered on L2. | | | There is lateral subluxatio n of L3 on L4 measuring approximately 1 | | | cm. The L1-2 and L2-3 disk interspaces are notably asymmetri c. | | | The scoliotic alignment makes assessment of vertebral alignment on | | | the lateral views more difficult, but there does appear to be | | | anterolisthesis of L4 on L5 measuring just under 1 cm. This does not | | | david nge in flexion or extension. Apparent retrolisthesis of L2 | | | with regard to L3 is thought to be second shelby only to rotation, and | | | it also does not change in flexion and extension. IMPRESSION: 1. | | | DEXTRO ROTATORY SCOLIOSIS CENTERED ON L2 DISCUSSED ABOVE. NO | | | RADIOGRAPHIC DEMONSTRATION OF IN STABILITY. Dictated Date/Time: | | | 01/21/2012 14:51 Transcribed Date/Time: 01/21/2012 15:06 | | | Mechanical Test Technician: SALO <Electronically Signed by Jarad Renae | | | MD Ji> 01/22/12 0713 | | + + + + + | Procedure Note | + + | Jeanmarie, Rad Conversion - 11/20/2013 5:04 PM [facility] | | Diagnostic Imaging Department [address] [place] [address] | | LUMBAR SPINE CLINICAL HISTORY: BACK PAIN. FINDINGS: | | AP, lateral and lateral flexion extension views of the lumbar spine are reviewed. There | | is a severe dextro rotatory scoliosis of the lumbar spine centered on L2. There is | | lateral subluxation of L3 on L4 measuring approximately 1 cm. The L1-2 and L2-3 disk | | interspaces are notably asymmetric. The scoliotic alignment makes assessment of | | vertebral alignment on the lateral views more difficult, but there does appear to be | | anterolisthesis of L4 on L5 measuring just under 1 cm. This does not change in flexion | | or extension. Apparent retrolisthesis of L2 with regard to L3 is thought to be | | secondary only to rotation, and it also does not change in flexion and extension. | | IMPRESSION: 1. 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 NO | | RADIOGRAPHIC DEMONSTRATION OF INSTABILITY. Dictated Date/Time: 01/21/2012 | | 14:51Transcribed Date/Time: 01/21/2012 15:06Transcriptionist: <Electronically | | Signed by Jarad Workman MD> 01/22/12712 | |The scoliotic alignment makes assessment of vertebral alignment on the lateral views more d ifficult, | |but there does appear to be anterolisthesis of L4 on L5 measuring just under 1 cm. This do es not david | |nge in flexion or extension. Apparent retrolisthesis of L2 with regard to L3 is thought to be second | |shelby only to rotation, and it also does not change in flexion and extension. | | | |IMPRESSION: | |1. 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 NO RADIOGRAPHIC DEMONSTRA TION OF IN | |STABILITY. | | | |Dictated Date/Time: 01/21/2012 14:51 | |Transcribed Date/Time: 01/21/2012 15:06 | |Mechanical Test Technician: | |<Electronically Signed by Jarad Workman MD> 01/22/12712 | + + + +---------+ + + | Performing | Address | City/State/Zipcode | Phone Number | | Organization | | | | + +---------+ + + | [facility] | | | | | [place] | | | | + +---------+ + + documented in this encounter Visit Diagnoses Not on filedocumented in this encounter"
--- OUTSIDE RECORDS SUMMARY | ~2019-10-18 | XMS | Encounter Summary ---
Demographics + + + | Address | [address] | | | [place] [address] | + + + | Home Phone | | + + + | Preferred Language | Unknown | + + + | Marital Status | | + + + | Mu-Ism Affiliation | 1027 | + + + | Race | Unknown | + + + | Ethnic Group | Unknown | + + + Author + + + | Author | [facility] | | | and [place] | + + + | Organization | [facility] | | | and [...] Team Providers + +------+ + | Care Director Of Student Life Name | Role | Phone | + +------+ + | Jesus Mijares MD | PCP | | + +------+ + Encounter Details +--------+ + + + + | Date | Type | Department | Care Team | Description | +--------+ + + + + | 03/14/ | Orders Only | [facility] | Conversion | | | 2016 | | NEPRHOLOGY [facility]ERS | Transaction, | | | | | [address] | Provider Unknown | | | | | [address] [place], [place] | [phone] | | | | | [address] | | | | | | [phone] | | | +--------+ + + + + Social History + +-------+ +--------+------+ | Tobacco Use | Types | Packs/Day | Years | Date | | | | | Used | | + +-------+ +--------+------+ | Never Smoker | | | | | + +-------+ +--------+------+ + + +---------+ + | Alcohol Use [...] | | | | | | [place] [address] | | | | | | [phone] | | | | | | | [...] | + +--------+ + + + | EXTERNAL LAB: CBC | Routin | 03/14/2016 | | Results for this | | | e | 9:05 AM | | procedure are in the | | | | PDT | | results section. | + +--------+ + + + | LIPID PANEL | Routin | 03/14/2016 | | Results for this | | | e | 9:05 AM | | procedure are in the | | | | PDT | | results section. | + +--------+ + + + | URINALYSIS, | Routin | 03/14/2016 | | Results for this | | MICROSCOPIC ONLY | e | 9:05 AM | | procedure are in the | | | | PDT | | results section. | + +--------+ + + + | PROTEIN/CREATININE | Routin | 03/14/2016 | | | | RATIO, URINE | e | 9:05 AM | | | | | | PDT | | | + +--------+ + + + | URIC ACID | Routin | 03/14/2016 | | Results for this | | | e | 9:05 AM | | procedure are in the | | | | PDT | | results section. | + +--------+ + + + | AST | Routin | 03/14/2016 | | Results for this | | | e | 9:05 AM | | procedure are in the | | | | PDT | | results section. | + +--------+ + + + | MAGNESIUM | Routin | 03/14/2016 | | Results for this | | | e | 9:05 AM | | procedure are in the | | | | PDT | | results section. | + +--------+ + + + | RENAL FUNCTION PANEL | Routin | 03/14/2016 | | Results for this | | | e | 9:05 AM | | procedure are in the | | | | PDT | | results section. | + +--------+ + + + documented in this encounter Results Protein/Creatinine Ratio, Urine (03/14/2016 9:05 AM PDT) + +-------+ + + + | Component | Value | Ref Range | Performed | Pathologist | | | | | At | Signature | + +-------+ + + + | Protein/Cre | | | EXTERNAL | | | at Ratio | | | LAB | | + +-------+ + + + + + | Specimen | + + | Urine specimen | | (specimen) | + + + +---------+ + + | Performing | Address | City/State/Zipcode | Phone Number | | Organization | | | | + +---------+ + + | EXTERNAL LAB | | | | + +---------+ + + Urinalysis, Microscopic Only (03/14/2016 9:05 AM PDT) + + + + + + | Component | Value | Ref Range | Performed | Pathologist | | | | | At | Signature | + + + + + + | Color | Yellow | | EXTERNAL | | | | | | LAB | | + + + + + + | Clarity | Clear | | EXTERNAL | | | | | | LAB | | + + + + + + | Specific | 1.007 | 1.005 - 1.030 | EXTERNAL | | | [place] | | | LAB | | + + + + + + | Leukocyte | Negative | | EXTERNAL | | | Esterase, | | | LAB | | | Urine | | | | | + + + + + + | Nitrite, | Negative | | EXTERNAL | | | Urine | | | LAB | | + + + + + + | Urobilinoge | Normal | | EXTERNAL | | | n, Urine | | | LAB | | + + + + + + | Protein, | Negative | | EXTERNAL | | | Urine | | | LAB | | + + + + + + | pH, Urine | 7 | 5 - 9 | EXTERNAL | | | | | | LAB | | + + + + + + | Blood, | Negative | | EXTERNAL | | | Urine | | | LAB | | + + + + + + | Ketones | Negative | | EXTERNAL | | | | | | LAB | | + + + + + + | Bilirubin, | Negative | | EXTERNAL | | | Urine | | | LAB | | + + + + + + | Glucose, | Negative | | EXTERNAL | | | Urine | | | LAB | | + + + + + + + + | Specimen | + + | Urine specimen | | (specimen) | + + + +---------+ + + | Performing | Address | City/State/Zipcode | Phone Number | | Organization | | | | + +---------+ + + | EXTERNAL LAB | | | | + +---------+ + + External Lab: CBC (03/14/2016 9:05 AM PDT) + +-------+ + + + | Component | Value | Ref Range | Performed | Pathologist | | | | | At | Signature | + +-------+ + + + | WBC | 10.7 | 4.5 - 11.0 10 | EXTERNAL | | | | | | LAB | | + +-------+ + + + | RED CELL | 5.02 | 3.8 - 5.1 10 | EXTERNAL | | | COUNT | | | LAB | | + +-------+ + + + | Hgb | 15.2 | 12.0 - 16.0 | EXTERNAL | | | | | g/dL | LAB | | + +-------+ + + + | Hematocrit, | 44.8 | 35 - 45 % | EXTERNAL | | | POC | | | LAB | | + +-------+ + + + | MCV | 89.4 | 81 - 99 fL | EXTERNAL | | | | | | LAB | | + +-------+ + + + | MCH | 30 | 27 - 33 pg | EXTERNAL | | | | | | LAB | | + +-------+ + + + | MCHC | 34 | 30 - 36 g/dL | EXTERNAL | | | | | | LAB | | + +-------+ + + + | Platelet | 305 | 140 - 440 K/ L | EXTERNAL | | | Count | | | LAB | | | Plasma | | | | | + +-------+ + + + | RDW-CV | | % | EXTERNAL | | | | | | LAB | | + +-------+ + + + | MPV | | fL | EXTERNAL | | | | | | LAB | | + +-------+ + + + | Differentia | | | EXTERNAL | | | l Type | | | LAB | | + +-------+ + + + | % Segmented | | % | EXTERNAL | | | | | | LAB | | | Neutrophils | | | | | + +-------+ + + + | % | | % | EXTERNAL | | | Lymphocytes | | | LAB | | + +-------+ + + + | % Monocytes | | % | EXTERNAL | | | | | | LAB | | + +-------+ + + + | % | | % | EXTERNAL | | | Eosinophils | | | LAB | | + +-------+ + + + | % Basophils | | % | EXTERNAL | | | | | | LAB | | + +-------+ + + + | Absolute | | / L | EXTERNAL | | | Segmented | | | LAB | | | Neutrophils | | | | | + +-------+ + + + | Absolute | | / L | EXTERNAL | | | Lymphocytes | | | LAB | | + +-------+ + + + | Absolute | | / L | EXTERNAL | | | Monocytes | | | LAB | | + +-------+ + + + | Absolute | | / L | EXTERNAL | | | Eosinophils | | | LAB | | + +-------+ + + + | Absolute | | / L | EXTERNAL | | | Basophils | | | LAB | | + +-------+ + + + + + | Specimen | + + | Blood specimen | | (specimen) | + + + +---------+ + + | Performing | Address | City/State/Zipcode | Phone Number | | Organization | | | | + +---------+ + + | EXTERNAL LAB | | | | + +---------+ + + Uric Acid (03/14/2016 9:05 AM PDT) + +---------+ + + + | Component | Value | Ref Range | Performed | Pathologist | | | | | At | Signature | + +---------+ + + + | Uric Acid | 7.9 (A) | 2.3 - 6.6 | EXTERNAL | | | | | | LAB | | + +---------+ + + + + + | Specimen | + + | Blood specimen | | (specimen) | + + + +---------+ + + | Performing | Address | City/State/Zipcode | Phone Number | | Organization | | | | + +---------+ + + | EXTERNAL LAB | | | | + +---------+ + + AST (03/14/2016 9:05 AM PDT) + +-------+ + + + | Component | Value | Ref Range | Performed | Pathologist | | | | | At | Signature | + +-------+ + + + | AST | 14 | 13 - 39 U/L | EXTERNAL | | | | | | LAB | | + +-------+ + + + + + | Specimen | + + | Blood specimen | | (specimen) | + + + +---------+ + + | Performing | Address | City/State/Zipcode | Phone Number | | Organization | | | | + +---------+ + + | EXTERNAL LAB | | | | + +---------+ + + Magnesium (03/14/2016 9:05 AM PDT) + +-------+ + + + | Component | Value | Ref Range | Performed | Pathologist | | | | | At | Signature | + +-------+ + + + | Magnesium | 1.8 | 1.7 - 2.5 mg/dL | EXTERNAL | | | | | | LAB | | + +-------+ + + + + + | Specimen | + + | Blood specimen | | (specimen) | + + + +---------+ + + | Performing | Address | City/State/Zipcode | Phone Number | | Organization | | | | + +---------+ + + | EXTERNAL LAB | | | | + +---------+ + + Renal Function Panel (03/14/2016 9:05 AM PDT) + +---------+ + + + | Component | Value | Ref Range | Performed | Pathologist | | | | | At | Signature | + +---------+ + + + | Glucose, | 167 (A) | 70 - 100 mg/dL | EXTERNAL | | | Fasting | | | LAB | | + +---------+ + + + | BUN | 31 (A) | 6 - 23 mg/dL | EXTERNAL | | | | | | LAB | | + +---------+ + + + | Creatinine | 1.13 | 0.70 - 1.18 | EXTERNAL | | | | | mg/dL | LAB | | + +---------+ + + + | PHOSPHORUS | 4.0 | 2.5 - 5.0 mg/dL | EXTERNAL | | | | | | LAB | | + +---------+ + + + | Albumin | 4.5 | 3.5 - 5.0 | EXTERNAL | | | | | | LAB | | + +---------+ + + + | Na | 136 | 132 - 143 | EXTERNAL | | | | | mmol/L | LAB | | + +---------+ + + + | K | 3.9 | 3.6 - 5.1 | EXTERNAL | | | | | mmol/L | LAB | | + +---------+ + + + | Cl | 92 (A) | 95 - 112 mmol/L | EXTERNAL | | | | | | LAB | | + +---------+ + + + | CO2 | 32 (A) | 19 - 31 mmol/L | EXTERNAL | | | | | | LAB | | + +---------+ + + + | Anion Gap | 15.9 | 7 - 21 mmol/L | EXTERNAL | | | | | | LAB | | + +---------+ + + + | eGFR if not | | | EXTERNAL | | | | | | LAB | | | [facility] | | | | | + +---------+ + + + | Phosphorus, | | | EXTERNAL | | | Inorganic | | | LAB | | + +---------+ + + + | BUN/Creatin | 27.4 | 6.0 - 28.6 | EXTERNAL | | | ine Ratio | | | LAB | | + +---------+ + + + | Calcium | 9.7 | 8.4 - 10.2 | EXTERNAL | | | | | mg/dL | LAB | | + +---------+ + + + | Estimated | 47 | mg/dL | EXTERNAL | | | GFR | | | LAB | | + +---------+ + + + + + | Specimen | + + | Blood specimen | | (specimen) | + + + +---------+ + + | Performing | Address | City/State/Zipcode | Phone Number | | Organization | | | | + +---------+ + + | EXTERNAL LAB | | | | + +---------+ + + Lipid Panel (03/14/2016 9:05 AM PDT) + +-------+ + + + | Component | Value | Ref Range | Performed | Pathologist | | | | | At | Signature | + +-------+ + + + | Cholesterol | 159 | mg/dL | EXTERNAL | | | | | | LAB | | + +-------+ + + + | Triglycerid | 117 | 30 - 150 mg/dL | EXTERNAL | | | es | | | LAB | | + +-------+ + + + | HDL | 62.2 | mg/dl | EXTERNAL | | | | | | LAB | | + +-------+ + + + | LDL | 73 | mg/dL | EXTERNAL | | | Cholesterol | | | LAB | | | , | | | | | | Calculated, | | | | | | External | | | | | + +-------+ + + + | LDl/HDL | | | EXTERNAL | | | Ratio | | | LAB | | + +-------+ + + + | Chol/HDL | 2.6 | | EXTERNAL | | | Ratio | | | LAB | | + +-------+ + + + | VLDL | 23 | 4 - 40 mg/dL | EXTERNAL | | | | | | LAB | | + +-------+ + + + | Non HDL | 97 | | EXTERNAL | | | Chol. | | | LAB | | | (LDL+VLDL) | | | | | + +-------+ + + + + + | Specimen | + + | Blood specimen | | (specimen) | + + + +---------+ + + | Performing | Address | City/State/Zipcode | Phone Number | | Organization | | | | + +---------+ + + | EXTERNAL LAB | | | | + +---------+ + + documented in this encounter Visit Diagnoses Not on filedocumented in this encounter Additional Health Concerns + + + + | Infection | Noted Time | Resolved Time | + + + + | Methicillin-resistant Staphylococcus aureus | 03/20/2017 12:00 AM | | | | PDT | | + + + + documented as of this encounter"
--- OUTSIDE RECORDS SUMMARY | ~2019-10-18 | XMS | Encounter Summary ---
Demographics + + + | Address | [address] | | | [place] [address] | + + + | Home Phone | | + + + | Preferred Language | Unknown | + + + | Marital Status | | + + + | Gnosticist Affiliation | [id number] | + + + | Race | Unknown | + + + | Ethnic Group | Unknown | + + + Author + + + | Author | [facility] | | | and [place] | + + + | Organization | [facility] | | | [...] Team Providers + +------+ + | Care Unleavened Dough Mixer Name | Role | Phone | + +------+ + | Jesus Mijares MD | PCP | | + +------+ + Encounter Details +--------+ + + + + | Date | Type | Department | Care Team | Description | +--------+ + + + + | 10/02/ | Hospital | [facility] | Yong Pena | S/P lumbar fusion | | 2013 - | Encounter | [facility] | MD [address] | | | | | [address] | [address] | | | 10/14/ | | [place], [place] | [place] [address] | | | 2013 | | [address] | [phone] | | | | | [phone] | | | +--------+ + + + [...] + + documented as of this encounter Discharge Summaries Manasa Ortega ARNP - 10/15/2013 6:48 AM PST Discharge Summaries by Manasa Ortega ARNP at 10/15/13 0648 Author: Manasa Ortega ARNP Service: (none) Author Type: Nurse Practitioner Filed: 10/15/13 0649 Date of Service: 10/15/13 0648 Status: Signed Window Shade Estimator: Manasa Ortega ARNP (Nurse Practitioner) Cosigner: Yong Pena MD at 1015 Neurosurgery Discharge Summary Note Patient: Rebecca Castillo Admission Date: 10/02/2013 1:57 PM Discharge Date: 10/14/2013 11:17 AM Significant Providers: Yong Pena Principal Diagnosis: 1. Draining wound Secondary Diagnoses: Active Ambulatory Problems Diagnosis Date Noted No Active Ambulatory Problems Atrial fibrillation Discharge Medications: Discharge Medication List as of 10/14/2013 10:10 AM START taking these medications Details docusate (AKA COLACE) 250 mg Oral Cap Take 1 Cap by mouth every twelve hours.Disp-80 Cap, R -0, Normal levofloxacin (AKA LEVAQUIN) 500 mg Oral Tab Take 1 Tab by mouth every day.Disp-7 Tab, R-0, Normal polyethylene glycol (AKA MIRALAX) 17 gram Oral PwPk Take 17 g by mouth once every day as ne eded.Disp-24 Packet, R-0, Normal Sennosides 17.2 mg Oral Tab Take 1 Tab by mouth daily at bedtime.Disp-80 Tab, R-0, Normal CONTINUE these medications which have CHANGED Details !! cyclobenzaprine (AKA FLEXERIL) 10 mg Oral Tab Take 1 Tab by mouth three times a day.Disp -80 Tab, R-0, Normal HYDROcodone-acetaminophen (AKA NORCO) 5-325 mg Oral Tab Take 2 Tabs by mouth every six hour s.Disp-90 Tab, R-0, VINCENT, Normal oxyCODONE, Immediate release, (AKA ROXICODONE) 5 mg Oral Tab Take 1-3 Tabs by mouth every t hree hours as needed for Pain (For breakthrough pain only).Disp-90 Tab, R-0, Normal !! - Potential duplicate medications found. Please discuss with provider. CONTINUE these medications which have NOT CHANGED Details !! cyclobenzaprine (AKA FLEXERIL) 10 mg Oral Tab Take 1 Tab by mouth three times a day.Disp -80 Tab, R-0, Normal DIGOXIN (DIGITEK ORAL) Take 0.25 mg by mouth every morning.Historical Med Acebutolol 200 mg Oral Cap Take 200 mg by mouth three times a day.200 mg, TID, Until Discon tinued, Oral, Historical Med amitriptyline (AKA ELAVIL) 25 mg Oral Tab Take 25 mg by mouth daily at bedtime.25 mg, HS, U ntil Discontinued, Oral, Historical Med glimepiride (AKA AMARYL) 4 mg Oral Tab Take 4 mg by mouth twice a day.4 mg, BID, Until Disc ontinued, Oral, Historical Med hydrochlorothiazide (AKA HYDRODIURIL) 12.5 mg Oral Cap Take 12.5 mg by mouth every morning. Historical Med lisinopril (AKA PRINIVIL) 40 mg Oral Tab Take 40 mg by mouth twice a day.Historical Med EZETIMIBE/SIMVASTATIN (VYTORIN 10-40 ORAL) Take by mouth every day in the evening.Historic al Med acetaminophen (AKA TYLENOL) 325 mg Oral Tab Take 650 mg by mouth three times a day as neede d. Pt states takes 3, waits 1 hour then might take 2 more if needed.Historical Med metFORMIN (AKA GLUCOPHAGE) 850 mg Oral Tab Take 850 mg by mouth twice a day.850 mg, BID, Un til Discontinued, Oral, Historical Med insulin glargine 100 unit/mL Soln 10 Units 40 Units by Subcutaneous route every morning.His torical Med Calcium-Cholecalciferol, D3, 250-125 mg-unit Oral Tab Take 2 Tabs by mouth daily at bedtime . Calcium 600mg, Vitamin D 800mgHistorical Med Methylsulfonylmethane (MSM) 1,000 mg Oral Tab Take by mouth every day.DAILY, Until Discont inued, Oral, Historical Med !! - Potential duplicate medications found. Please discuss with provider. Allergies: Allergies Allergen Reactions Penicillins Rash and Swelling This was many decades ago and pt tolerated zosyn w/out probs Morphine Other (Comment) bradycardia Sulfur Other (Comment) Water retention Procedures/Significant Test Results: 10/02/2013 1. Incision and drainage of wound with placement of a wound vacuum. 2. Reexploration of spinal fusion. 10/05/2013 I&D of wound, wound vac, muscles approximated primarily 10/08/2013 Wound vac change 10/13/2013 Wound reconstruction Consults: Plastic Surgery Hospital Course: Ms. Castillo is a 73 year old female who was admitted to [facility] from clinic on for a draining lumbar incision and taken to the OR that evening for lumbar L4-5 re- exploration of fusion with wound vacuum placement. She returned to the OR on 10/05/2013 for a reexploration of the wound and replacement of the wound vac, and underwent one wound vac changes at bedside with wound care. Ms. Castillo returned to the OR on 10/13/2013 for closure of the wound. Her hemovac drain was discontinued the day after wound closure without compli cation. Ms. Castillo worked with PT/OT while inpatient and was cleared for discharge home on . She was discharged with seven days worth of oral antibiotics. She was voiding wit hout difficulty, had several BMs while inpatient, and was tolerating her meals without nause a. Her incision was intact with no drainage or swelling noted. Discharge instructions were covered in detail including the importance of continuing the bowel medications while taking the pain medications, activity restrictions, weight restrictions (nothing greater than 5-10 pounds for one months), showering, but not submerging the incision, and follow-up recommend ations. She had no neurologic deficits at discharge and all questions were addressed prior to her leaving. Diet: Diabetic Activity: As tolerated Instructions/Follow-up: Discharge Instructions 1. Call [facility] office with any questions or concerns at [phone] (RN line ). 2. Sutures should come out post operative day [address] Pena's preference you re turn to his clinic for their removal. Please call [phone] to schedule appointment to amalia stanleye these removed. If your incision is closed with steri-strips, these will come off natura lltomi in 5-7 days. If they remain in place after that time, you may gently remove them. 3. Take medications as directed. See Discharge Medication list for all current medications as some of your medications may have changed while you were hospitalized. 4. If you have a dressing on when you leave the hospital, this can stay in place for 3-7 da ys, unless soiled. After the dressing is removed, you may leave the incision open to air. You may shower with the dressing in place (as the dressing is waterproof). Once the dressin g comes off, please keep the incision as dry as possible. This includes when you are shower ing. Do not submerge incision in water (such as with tub bathing, swimming, hot-tubs etc) f or 4 weeks. 5. Assess your incision daily for signs of infection. If you have any drainage, increasing redness or other signs of infection, call the Nurse line at [phone]. 6. Follow up with your primary care physician as needed or as per next scheduled appointmen t. 7. Follow up at Dr. Pena's office in 6 weeks. Call to schedule appointment at . Imaging studies will be obtained at follow up. 8. For after hours emergencies, contact: soni Wilkerson [phone] robert Daniels [phone] Activity & Medications 1. Your activity will be as tolerated. However, we do recommend you start walking daily to help regain and/or maintain your strength. If activity increases your pain, it is ok to ta ke pain medication 30-45 minutes. Take the pain medication with food if it upsets your stom ach. 2. Time spent sitting/laying down should be limited. While we want you to rest and recover , we do not recommend spending time in your bed beyond sleeping at night. 3. Please do not push, pull, lift, or carry anything more than 10-15 pounds for the first 2 -4 weeks after surgery. You can gradually increase after that time. 4. If you had surgery on your cervical spine, avoid excessive bending or hyperextension of your neck. If your surgery was on the lumbar spine, avoid excessive bending or twisting at the waist. 5. Narcotic pain medications can be constipating. Take the stool softeners as ordered and be sure to eat a high fiber diet and drink plenty of water. It is very important to not str ain while having a bowel movement. Questions and Concerns please call your Physicians Office at: [phone] Preventing Infection As you recover from surgery we want you to heal and recover without added worry or problems . You may have heard of, or know someone, who had surgery and later went back [facility] because of an infection. These infections can occur in your surgical incision (where the d octor cut through your skin). Even though most patients do quite well after surgery, approx imately 2 out 100 patients develop infections after surgery. To help prevent an infection h ere is what YOU need to do: General Hygiene and Care: Wash your hands every time after using the toilet, touching garbage, touching pets and p et supplies or equipment, dirty or soiled laundry, and anything that has been used outdoors. Wear clean loose fitting clothes. Stay away from family and friends who are, or have been, sick. Use fresh, clean towels and washcloths every time you shower or bathe. Use clean sheets. Change them every other day for the first couple of weeks. If you saul ve any drainage from your incision, change your sheets daily. Change your pillow case daily if you have had surgery on your head. Do not use hot-tubs, steam or sauna rooms, or go swimming until cleared by Dr. Pena. Hair dyes and treatments should not be done for 6 weeks after your surgery Care of your Incision: Do not touch, scrub, scratch or pick at your incision. If there is old dried blood or a scab, do not remove it. This will come off on its own. Do not let pets or animals near or touch your incision. Do not put anything on your incision unless your doctor told you to. This includes avoi ding creams, lotions, antibiotics, soap, salve, alcohol or hydrogen peroxide. Look at your incision daily. If you are unable to clearly see your incision have a famil y member or friend look at it. Check for any of the following signs of infection. If you hav e any signs call your doctor. Signs of infection include: Swelling or puffiness on or around the incision. Redness on or around the incision. Incision is coming open. Fluid is leaking from the incision. Any increase in pain from the incision. If you have a fever of 100. 5 degrees or greater. * Please be aware, the neurosurgery clinic will provide pain medications for our postoperat kennedi patients for up to 6 weeks after surgery. If pain medications are required after that t eddie, we will defer further pain management to your primary care provider or provide referral to a specialty pain clinic. We will not provide prescriptions for opioid pain medications prior to surgical intervention. Condition on Discharge: Stable Code Status this admission: FULL CODE Time Spent on Discharge Coordination: greater than 30 minutes: 55 total minutes NICOLLE Gamble 10/15/2013, 06:48 Administrative Data: CPT [id number] than 30 min (Time spent: 55) CC: Jesus Mijares documentpaola romero in this encounter Medications at Time of Discharge + + + +---------+ + + | Medication | Sig | Dispensed | Refills | Start | End Date | | | | | | Date | | + + + +---------+ + + | acebutolol | Take 200 mg by mouth | | 0 | 06/27/20 | | | (SECTRAL) 200 mg | 2 times daily. | | | 12 | 7 | | capsule | | | | | | + + + +---------+ + + | amitriptyline | Take 25 mg by mouth | | 0 | 06/27/20 | | | (ELAVIL) 25 mg | nightly. | | | 12 | 9 | | tablet | | | | | | + + + +---------+ + + | CALCIUM | TABS | | 0 | 06/27/20 | | | CARBONATE-VITAMIN D | | | | 12 | 5 | | PO | | | | | | + + + +---------+ + + | cyclobenzaprine | Take 10 mg by mouth | | 0 | 06/27/20 | | | (FLEXERIL) 10 mg | 3 times daily. | | | 12 | 5 | | tablet | | | | | | + + + +---------+ + + | digoxin (LANOXIN) | Take 250 mcg by | | 0 | 06/27/20 | | | 250 mcg tablet | mouth Daily. | | | 12 | 5 | + + + +---------+ + + | glimepiride | Take 4 mg by mouth 2 | | 0 | 06/27/20 | | | (AMARYL) 4 mg tablet | times daily. | | | 12 | 6 | + + + +---------+ + + | | Take 12.5 mg by | | 0 | 06/27/20 | | | hydrochlorothiazide | mouth Daily. | | | 12 | 6 | | (MICROZIDE) 12.5 MG | | | | | | | capsule | | | | | | + + + +---------+ + + | | Take 10-325 mg by | | 0 | 06/27/20 | | | HYDROcodone-acetamin | mouth 3 times daily | | | 12 | 6 | | ophen (NORCO) 10-325 | as needed. | | | | | | mg per tablet | | | | | | + + + +---------+ + + | Ibuprofen (ADVIL | CAPS as needed | | 0 | 06/27/20 | | | PO) | | | | 12 | 6 | + + + +---------+ + + | insulin glargine | 40 units daily | | 0 | 06/27/20 | | | (LANTUS) 100 | | | | 12 | 5 | | units/mL injection | | | | | | + + + +---------+ + + | lisinopril | Take 40 mg by mouth | | 0 | 06/27/20 | | | (PRINIVIL,ZESTRIL) | Daily. | | | 12 | 6 | | 40 MG tablet | | | | | | + + + +---------+ + + | metFORMIN | Take 850 mg by mouth | | 0 | 06/27/20 | | | (GLUCOPHAGE) 850 mg | 2 times daily. | | | 12 | 5 | | tablet | | | | | | + + + +---------+ + + | | 2 capsules daily | | 0 | 06/27/20 | | | Methylsulfonylmethan | | | | 12 | 5 | | e (MSM) 1000 MG CAPS | | | | | | + + + +---------+ + + documented as of this encounter Progress Notes Priya Minaya RN - 10/14/2013 11:01 AM PST Progress Notes by Priya Minaya RN at 10/14/13 110 Author: Priya Minaya RN Service: (none) Author Type: Registered Nurse Filed: 10/14/131102 Date of Service: 10/14/131100 Status: Signed Window Shade Estimator: Priya Minaya RN (Registered Nurse) [facility] Discharge Note Patient: Rebecca Castillo Date: 10/14/2013 Discharge instructions were given to patient. Learner indicates understanding. Discharge prescriptions were given to the patient. and faxed to [facility] [place] Belongings verified with the patient: Yes - see flowsheet Time of discharge: 1115 Discharge to: home Mode of Transport: wheelchair Accompanied by: Transporter Went over DC instructions including follow up appointments, medications, post op activity a nd precautions, and went over in great detail s/s of infection and hygiene. Priya Minaya RN, 10/14/2013 11:01 AM Paulette Jean RN - 10/14/2013 4:56 AM PST Progress Notes by Paulette Eastman RN at 10/14/13455 Author: Paulette Eastman RN Service: (none) Author Type: Registered Nurse Filed: 10/14/13458 Date of Service: 10/14/13455 Status: Signed Window Shade Estimator: Paulette Eastman RN (Registered Nurse) NSG Shift Summary Patient: Rebecca Castillo Alert and oriented when awake. Lungs clear, amb safely with FWW and SBA. States, "I am fee ling much stronger now." Pain RX effect. Denies neuropathy despite HX in chart. Drsg scant drng, Hemovac patent to compression SX draining 10 cc dark blood. Pt anticipate DC to home this day. Voids QS, last BM 10/14/12. Paulette Eastman RN, 10/14/2013 4:56 AM Priya Shearer RN - 10/13/2013 6:03 PM PST Progress Notes by Priya Minaya RN at 10/13/131802 Author: Priya Minaya RN Service: (none) Author Type: Registered Nurse Filed: 10/13/131805 Date of Service: 10/13/131802 Status: Addendum Window Shade Estimator: Priya Minaya RN (Registered Nurse) Related Notes: Original Note by Priya Minaya RN (Registered Nurse) filed at 10/13/13 18 03 NSG Arrival Note Patient: Rebecca Castillo Arrival time: 1705 From: PACU to room 525. Belongings verified with the patient: Yes - see flowsheet Last VS: Temp: 36.4 C (97.6 F), BP: 135/75 mmHg, Heart Rate: 66, Resp: 16, SpO2: 97 %, O2 Liter Flow (1L or More): 2L/min, Weight: 92.534 kg (204 lb). Admission Wt:92.534 kg (204 lb) Skin intact: No - Wound vac closure - acticote dressing PU Prevention Specialty Bed: In use Time of last pain med: In PACU Lines and drains: PIV, Hemovac drain, Current IV: none at 0 Current nursing problems: Post op observation, neuro checks, pain management Patient orientation: to call light to telephone and television to general hospital information to plan for the day Pt arrived A&Ox4, ABREU, 4/5 in all extremities, c/o 8-9/10 back pain, administered 2mg IV Di luadid and 2 tabs Boylston for longer acting coverage. Pt VSS, ambulating to bathroom with FWW, voided. Hemovac drain intact - gauze dressing around drain site CDI, acticote dressing inta ct with small drainage, blood sugar elevated 172 - did not cover as pt is not eating solid f oods yet, will pass on to night RN. Priya Minaya RN, 10/13/2013 6:03 PM Gerry Alcala - 10/13/2013 3:58 PM PST Progress Notes by Gerry Degroot MD at 10/13/131557 Author: Gerry Degroot MD Service: (none) Author Type: Physician Filed: 10/13/131557 Date of Service: 10/13/131557 Status: Signed Window Shade Estimator: Gerry Degroot MD (Physician) Brief op note Dx_dehiscence Op- Wound reconstruction C&S sent Drain in place Camryn SAVAGE Priya Shearer RN - 10/13/2013 2:17 PM PST Progress Notes by Priya Minaya RN at 10/13/131416 Author: Priya Minaya RN Service: (none) Author Type: Registered Nurse Filed: 10/13/131416 Date of Service: 10/13/131416 Status: Signed Window Shade Estimator: Priya Minaya RN (Registered Nurse) [facility] Progress Note Brief Patient: Rebecca Castillo Pre op check list complete, need consent. Pt down to OR. Priya Minaya RN, 10/13/2013 2:17 PM oTim chicas MD - 10/13/2013 9:29 AM PST Progress Notes by Tim Alvarez MD at 10/13/13928 Author: Tim Alvarez MD Service: (none) Author Type: Physician Filed: 10/13/13929 Date of Service: 10/13/13928 Status: Signed Window Shade Estimator: Tim Alvarez MD (Physician) Infectious Diseases Progress Note Rebecca Castillo 10/13/2013, Hospital Day # 11 Impression: stable from ID view 1. Lumbar wound infection 09/15 with E.coli and proteus after lumbar laminectomy with hardwa re 08-07-13. Wound was superficial at debridement 09/16. Treated with augmentin. F/u culture s neg. 2. Wound dehiscence on admit 10/02 after closure 09/16. Wound cultures neg. Vac on current ly and plans for closure soon 3. DM 4. Obesity 5. Hx afib Recommendations: 1. Unasyn today, then Levaquin tomorrow for 7 days 2. Surveillance culture of the wound at closure today 3. Anticipating surg today and likely home 10/14. 4. Dr. Phillips available prn only if called Oct 14. I will see Oct 15 if here. Current Antibiotics: augmentin Subjective: For closure today Objective: Temp: 36.8 C (98.3 F), BP: 122/54 mmHg, Heart Rate: 62, Resp: 16, SpO2: 96 %, O2 Liter Flow (1L or More): 3L/min, Weight: 92.534 kg (204 lb) General: In NAD Back wound with vac on. No surrounding cellulitis. NT. Skin: Without r satish IV: without inflammation ABD: Soft, Non-tender Ext: 1-2+ edema No tenderness. Mild stasis dermatitis, chronic. Labs: Lab results (within last 13 months/9479hours) 10/12/13 0735 10/02/13 1540 WBC 6.5 < > 6.6 RBC 3.15* < > 3.83 HGB 9.7* < > 12.0 HCT 29.3* < > 35.9 MCV 93 < > 94 MCH 30.8 < > 31.3 MCHC 33.1 < > 33.4 RDW 14.7 < > 14.7 PLT 321 < > 346 | 346 POLYAP -- -- 49 LYMP -- -- 41 MONOP -- -- 7 EOSP -- -- 3 BASP -- -- 1 < > = values in this interval not displayed. Lab results (within last 13 months/rs) 10/12/13 0735 10/06/13 1440 10/03/13 0700 NA 138 137 139 K 4.7 4.3 4.9 CL 103 101 102 TCO2 28 30* 26 BUN 26 24 27 CR 0.75 0.86 1.03* GLUC 106* 149* 151* Lab results (within last 13 months/80hours) 10/02/13 1540 ESR 49* Lab results (within last 13 months/9479hours) 10/02/13 1540 CRP 1.8* Cultures: 10/02 and 10/05 neg. Reviewed. Xray: None new Tim Alvarez MD [phone] anasa Ortega AR POWER PRESS TENDER - 10/13/2013 6:33 AM PST Progress Notes by Manasa Ortega ARNP at 10/13/13632 Author: Manasa Ortega ARNP Service: (none) Author Type: Nurse Practitioner Filed: 10/13/13829 Date of Service: 10/13/13632 Status: Signed Window Shade Estimator: Manasa Ortega ARNP (Nurse Practitioner) Neurosurgery Progress Note ID: Rebecca Castillo; 73 y.o. female Location: [id number]/525E1 Attending Yong Pena MD Hospital Day # 11 PCP Jesus Mijares Procedure: 10/02/2013 1. Incision and drainage of wound with placement of a wound vacuum. 2. Reexploration of spinal fusion. 10/05/2013 I&D of wound, wound vac, muscles approximated primarily 10/08/2013 Wound vac change Subjective Ms. Castillo reports she is feeling ok, disappointed wound vac change did not happen yesterday . Has been NPO since midnight for OR today. Objective VS: Blood pressure 131/66, temperature 36.3 C (97.3 F), resp. rate 16, height 163 cm ( 5' 4.17"), weight 92.534 kg (204 lb), SpO2 96.00%.Temp (24hrs), Av.4 C (97.6 F), Min :36.2 C (97.2 F), Max:36.8 C (98.2 F) Cardiac Rhythm (monitored Pts.): Normal sinus rhythm I/O: Intake/Output Summary (Last 24 hours) at 10/13/13 0633 Last data filed at 10/12/13 1800 Gross per 24 hour Intake 1160 ml Output 0 ml Net 1160 ml General: healthy, alert and in no distress Neuro: Awake, alert and oriented x 3; Cranial nerves II-XII grossly intact; Reflexes symmet rical; Motor intact with BUE and BLE 5/5; Sensation intact to soft touch. Wound: wound vac in place Labs: Lab results (within last 13 months/) 10/12/13 0735 WBC 6.5 HGB 9.7* HCT 29.3* PLT 321 NA 138 K 4.7 CL 103 BUN 26 CR 0.75 GLUC 106* Lab results (within last 13 months/) 10/12/13 1220 INR 1.0 PT 10.2 PTT 27.7 No results found for this basename: DPHTOTAL, in the last 9480 hours Assessment/Plan: 1. S/P incision and drainage of wound with placement of a wound vacuum and reexploration of spinal fusion on 10/02/2013 followed by I&D of wound with wound vac replacement on 10/05/20 13. - Continue wound vac @ 125 mm Hg continuous suction - OR today for wound reclosure with Dr. Degroot - OOB with meals & Ambulate TID - Continue bowel medications - change several to prn - Push IS - 10x hourly while awake - Benadryl prn for itching 2. Pain - Continue scheduled Boylston (2 tabs Q hours) with oxycodone 5-15 mg PO prn for breakthrou gh pain - Limit prn medication use - Muscle relaxors prn 3. DM - Continue home dose of amaryl - Continue SSI insulin with AC & HS coverage 4. Appreciate ID's recommendation for antibiotics - Cultures have no growth as of this am 5. History of a-fib - Please do not hold the digoxin without paging me to discuss. Thanks! 6. Discharge planning - OR closure today with Dr. Degroot; discharge dependent on his recommendations - Will need follow-up in our clinic for suture removal in two weeks NICOLLE Gamble 06:33; 10/13/2013 Alyssa Easton RN - 10/13/2013 4:20 AM PSTFormatting of this note might be different from e original. Progress Notes by Jana Saleh RN at 10/13/13419 Author: Jana Saleh RN Service: (none) Author Type: Registered Nurse Filed: 10/13/13424 Date of Service: 10/13/13419 Status: Signed Window Shade Estimator: Jana Saleh RN (Registered Nurse) NSG Progress Note Brief Patient: Rebecca Castillo Neuro status no change overnight , reports pain well controlled with schedule Boylston and Prn oxycodone . Ambulates to the bathroom voiding without difficulty . Wound vac intact with serosanguinous Drainage in the canister. Will be NPO after 6 am this morning . Will continue to monitor. Jana Saleh RN, 10/13/2013 4:20 AM Fabiana Granados RN - 10/12/2013 6:47 PM PSTFormatting of this note might be different from the origi nal. Progress Notes by Fabiana Cartwright RN at 10/12/137 Author: Fabiana Cartwright RN Service: (none) Author Type: Registered Nurse Filed: 10/12/131858 Date of Service: 10/12/131846 Status: Signed Window Shade Estimator: Fabiana Cartwright RN (Registered Nurse) NS Progress Note Brief Patient: Rebecca Castillo Patient reported feeling itchy all over with no rash noticed over her body except for a sli ght reddish raised area to her left wrist with Benadryl po x 1 given with fair to adequate r elief. Yoli RN (Wound care) from [facility] called back to speak to RN taking care of Patient(Jonathan)to inform RN that she wouldn't be able to change Wound Vac dressing this e vening. NICOLLE Almendarez notified of this situation and discussed with 5E RN that it w ould be okay to leave wound vac dressing as is and will change wound vac in OR tomorrow afte rnoon per . Stable. Continue to monitor and to assess closely. Fabiana Cartwright RN, 10/12/2013 6:48 PM Sebastian Alcala - 10/12/2013 4:36 PM PST Progress Notes by Gerry Degroot MD at 10/12/13 1636 Author: Gerry Degroot MD Service: (none) Author Type: Physician Filed: 10/12/13 1638 Date of Service: 10/12/13 1636 Status: Signed Window Shade Estimator: Gerry Degroot MD (Physician) Plastic Surgery OR tomorrow, 3 PM, Npo after 6 am. Wound looks good on most recent photo from VAC change. Camryn SAVAGE Rajendra Pulido [place] - 10/12/2013 3:22 PM PST . Progress Notes by Rajendra Mcnair at 10/12/13 1522 Author: Rajendra Mcnair Service: (none) Author Type: Filed: 10/12/13 1525 Date of Service: 10/12/13 152 Status: Signed Window Shade Estimator: Rajendra Mcnair () Nurse referral. Visited with the patient and her . She is walking well, and then res ting. They are waiting for an evaluation before going home to [place], [place]. Both is goo d spirits. They told me of their life in [place], her love of animals. They miss their home. I offered emotional support and empathic listening. Will follow if needed. Chaplain Rai Mcnair onversion Tr ansaction, Provider Unknown - 10/12/2013 3:06 PM PSTFormatting of this note might be differ ent from the original. Progress Notes by Jil Xavier RN at 10/12/13 1506 Author: Jil Xavier RN Service: (none) Author Type: Registered Nurse Filed: 10/12/13 1507 Date of Service: 10/12/13 1506 Status: Signed Window Shade Estimator: Jil Xavier RN (Registered Nurse) Message left at wound care office asking when dressing will be changed. Name and phone num sakina of resume writer of this note given on message. onver everett Transaction, Provider Unknown - 10/12/2013 10:45 AM PST Progress Notes by Jil Xavier RN at 10/12/13 1045 Author: Jil Xavier RN Service: (none) Author Type: Registered Nurse Filed: 10/12/13 1050 Date of Service: 10/12/13 1045 Status: Signed Window Shade Estimator: Jil Xavier RN (Registered Nurse) Patient notified RN that there were two areas of swelling and redness on her right wrist. She stated that her wrist band had been "tight" and this had caused itching under the area w here her wrist band had been. Upon assessment, it was noted that there is swelling and redn ess on both sides of the wrist, more so on the lateral side. Patient states there is "burni ng" and intermittent itching on these areas. Ivana Ortega notified. Verbal order to apply warm compresses to right wrist several times a day, and to keep her wrist elevated on pillows. P gloria: Continue to monitor swelling, redness on wrist area. onver everett Transaction, Provider Unknown - 10/12/2013 10:42 AM PST Progress Notes by Jil Xavier RN at 10/12/131041 Author: Jil Xavier RN Service: (none) Author Type: Registered Nurse Filed: 10/12/135 Date of Service: 10/12/131041 Status: Signed Window Shade Estimator: Jil Xavier RN (Registered Nurse) Patient's blood pressure and pulse prior to administration of blood pressure medications wa s 113/55, pulse 53. Ivana Ortega notified of vital signs. Verbal order given to hold blood pres sure medications for now (0900 dosing). Recheck vital signs later this morning and notify Ruben Ortega with results. Tim Mace MD - 10/12/2013 9:25 AM PSTFormatting of this note might be different from the o riginal. Progress Notes by Tim Alvarez MD at 10/12/13924 Author: Tim Alvarez MD Service: (none) Author Type: Physician Filed: 10/12/13925 Date of Service: 10/12/13924 Status: Signed Window Shade Estimator: Tim Alvarez MD (Physician) Infectious Diseases Progress Note Rebecca Lua Jonathan 10/12/2013, Hospital Day # 10 Impression: stable from ID view 1. Lumbar wound infection 09/15 with E.coli and proteus after lumbar laminectomy with hardwa re 08-07-13. Wound was superficial at debridement 09/16. Treated with augmentin. F/u culture s neg. 2. Wound dehiscence on admit 10/02 after closure 09/16. Wound cultures neg. Vac on current ly and plans for closure soon 3. DM 4. Obesity 5. Hx afib Recommendations: 1. continue augmentin today - will change to Unasyn in the am pre-op 2. Anticipating surg Saturday. Current Antibiotics: Subjective: Weekend reviewed. No new events Objective: Temp: 36.2 C (97.2 F), BP: 113/55 mmHg, Heart Rate: 53, Resp: 16, SpO2: 98 %, O2 Liter Flow (1L or More): 3L/min, Weight: 92.534 kg (204 lb) General: In NAD Back wound with vac on. No surrounding cellulitis. NT. Skin: Without r satish IV: without inflammation ABD: Soft, Non-tender Ext: 1-2+ edema No tenderness. Mild stasis dermatitis, chronic. Labs: Lab results (within last 13 months/) 10/12/13 0735 10/02/13 1540 WBC 6.5 < > 6.6 RBC 3.15* < > 3.83 HGB 9.7* < > 12.0 HCT 29.3* < > 35.9 MCV 93 < > 94 MCH 30.8 < > 31.3 MCHC 33.1 < > 33.4 RDW 14.7 < > 14.7 PLT 321 < > 346 | 346 POLYAP -- -- 49 LYMP -- -- 41 MONOP -- -- 7 EOSP -- -- 3 BASP -- -- 1 < > = values in this interval not displayed. Lab results (within last 13 months/) 10/12/13 0735 10/06/13 1440 10/03/13 0700 NA 138 137 139 K 4.7 4.3 4.9 CL 103 101 102 TCO2 28 30* 26 BUN 26 24 27 CR 0.75 0.86 1.03* GLUC 106* 149* 151* Lab results (within last 13 months/) 10/02/13 1540 ESR 49* Lab results (within last months/) 10/02/13 1540 CRP 1.8* Cultures: 10/02 and 10/05 neg. Reviewed. Xray: None new Tim Alvarez MD [phone] 35 min spent FTF, >50% time counseling and reviewing her hospitalization anasa Ortega AR POWER PRESS TENDER - 10/12/2013 6:28 AM PST Progress Notes by Manasa Ortega ARNP at 10/12/13627 Author: Manasa Ortega ARNP Service: (none) Author Type: Nurse Practitioner Filed: 10/12/13 0758 Date of Service: 10/12/13627 Status: Signed Window Shade Estimator: Manasa Ortega ARNP (Nurse Practitioner) Neurosurgery Progress Note ID: Rebecca Castillo; 73 y.o. female Location: 525E/525E1 Attending Yong Pena MD Hospital Day # 10 PCP Jesus Mijares Procedure: 10/02/2013 1. Incision and drainage of wound with placement of a wound vacuum. 2. Reexploration of spinal fusion. 10/05/2013 I&D of wound, wound vac, muscles approximated primarily 10/08/2013 Wound vac change Subjective Ms. Castillo reports she is feeling ok, with good pain control at this time. She is ambulatin g well and voiding without difficulty. Objective VS: Blood pressure 111/51, temperature 36.7 C (98.1 F), resp. rate 16, height 163 cm ( 5' 4.17"), weight 92.534 kg (204 lb), SpO2 97.00%.Temp (24hrs), Av.7 C (98 F), Min:3 6.3 C (97.3 F), Max:36.8 C (98.3 F) Cardiac Rhythm (monitored Pts.): Normal sinus rhythm I/O: Intake/Output Summary (Last 24 hours) at 10/12/13627 Last data filed at 10/11/13 1300 Gross per 24 hour Intake 540 ml Output 0 ml Net 540 ml General: healthy, alert and in no distress Neuro: Awake, alert and oriented x 3; Cranial nerves II-XII grossly intact; Reflexes symmet rical; Motor intact with BUE and BLE 5/5; Sensation intact to soft touch. Wound: wound vac in place Labs: Lab results (within last 13 months/9479hours) 10/06/13 1440 WBC 7.3 HGB 10.7* HCT 32.0* PLT 300 NA 137 K 4.3 CL 101 BUN 24 CR 0.86 GLUC 149* Lab results (within last 13 months/9479hours) 10/02/13 1540 INR 1.0 PT 10.4 PTT 28.2 No results found for this basename: DPHTOTAL, in the last 9480 hours Assessment/Plan: 1. S/P incision and drainage of wound with placement of a wound vacuum and reexploration of spinal fusion on 10/02/2013 followed by I&D of wound with wound vac replacement on 10/05/20 13. - Continue wound vac @ 125 mm Hg continuous suction * Wound vac change at bedside with wound care nurse today (10/12/2013) - incision quite olson perficial and will only need IV prn med for change. - OOB with meals & Ambulate TID - Continue bowel medications - change several to prn - Push IS - 10x hourly while awake - Benadryl prn for itching 2. Pain - Continue scheduled Boylston (2 tabs Q hours) with oxycodone 5-15 mg PO prn for breakthrou gh pain - Limit prn medication use - Muscle relaxors prn 3. DM - Continue home dose of amaryl - Continue SSI insulin with AC & HS coverage 4. Appreciate ID's recommendation for antibiotics - Cultures have no growth as of this am 5. History of a-fib - Please do not hold the digoxin without paging me to discuss. Thanks! 6. Discharge planning - Plan on wound vac change Saturday at bedside with closure next week, possibly Saturday. NICOLLE Gamble 06:28; 10/12/2013 ikerry, Nickolas Perez RN - 10/12/2013 6:19 AM PSTFormatting of this note might be different from the origi nal. Progress Notes by Christine Lyon RN at 10/12/13618 Author: Christine Lyon RN Service: (none) Author Type: Registered Nurse Filed: 10/12/13618 Date of Service: 10/12/13618 Status: Signed Window Shade Estimator: Christine Lyon RN (Registered Nurse) NSLissa Progress Note Brief Patient: Rebecca Castillo Pt neuro status stable overnight. Pain has been well controlled on current medications. W ound vac to continuous suction, very little serosanguinous drainage into canister. She is i ndependent in the room, voiding without difficulty, had a BM yesterday. Wound vac dressing change today and surgery tomorrow. VSS. Will continue to monitor. Christine Lyon RN, 10/12/2013 6:19 AM abiana Cartwright RN - 10/12/2013 12:47 AM PST Progress Notes by Fabiana Cartwright RN at 10/12/1346 Author: Fabiana Cartwright RN Service: (none) Author Type: Registered Nurse Filed: 10/12/13 005 Date of Service: 10/12/1346 Status: Signed Window Shade Estimator: Fabiana Cartwright RN (Registered Nurse) GLENIS Progress Note Brief Patient: Rebecca Castillo Patient reported to RN that her pain level was a 8/10 down to a 3-5/10 at intervals and was medicated for severe pain and discomfort with adequate relief. Wound vac patent with smal l to moderate amount of serous-sanquineous drainage in canister. Voiding qs with loose st ools this evening. Stable. Continue to monitor and to assess closely. Fabiana Cartwright RN, 10/12/2013 12:47 AM onversion Trans action, Provider Unknown - 10/11/2013 3:56 PM PST Progress Notes by Jil Xavier RN at 10/11/13 5184 Author: Jil Xavier RN Service: (none) Author Type: Registered Nurse Filed: 10/11/13 1328 Date of Service: 10/11/13 199 Status: Signed Window Shade Estimator: Jil Xavier RN (Registered Nurse) Patient ambulating in room and hallway independently, using walker. Wound vac patent and i ntact. Pain managed with routine Boylston. Apical pulse at 1400 was 64. Digoxin given per ve rbal order from neuro clinician (see nurse communication section of active orders). Plan: Continue plan of care. Brittani Escalante FNP - 10/11/2013 9:58 AM PST Progress Notes by Brittani Segura ARNP at 10/11/13957 Author: Brittani Segura ARNP Service: (none) Author Type: Nurse Practitioner Filed: 10/11/13 1006 Date of Service: 10/11/13957 Status: Signed Window Shade Estimator: Brittani Segura ARNP (Nurse Practitioner) NSR Progress Note ID: Rebecca Castillo; 73 y.o. female Location: [facility] Attending Yong Pena MD Hospital Day # 9 PCP Jesus Mijares Procedure: 10/02/2013 1. Incision and drainage of wound with placement of a wound vacuum. 2. Reexploration of spinal fusion. 10/05/2013 I&D of wound, wound vac, muscles approximated primarily 10/08/2013 Wound vac change Subjective Patient has no complaints and no overnight events. Pain is well Objective VS: Blood pressure 126/57, temperature 36.3 C (97.3 F), resp. rate 18, height 163 cm ( 5' 4.17"), weight 92.534 kg (204 lb), SpO2 97.00%.Temp (24hrs), Av.7 C (98 F), Min:3 6.3 C (97.3 F), Max:37.2 C (99 F) Cardiac Rhythm (monitored Pts.): Normal sinus rhythm I/O: Intake/Output Summary (Last 24 hours) at 10/11/13957 Last data filed at 10/11/13 0900 Gross per 24 hour Intake 1056 ml Output 0 ml Net 1056 ml General: Patient is awake and in NAD. Neuro: Patient is AO x3, CN II-XII are grossly intact, speech is clear and fluent, sensatio n is intact to light touch and the patient is moving all extremities well. MAE. GODINEZ/LE 5/5 Wound: The incision is clean, dry and intact. Wound vac in place. Labs: Lab results (within last 13 months/9479hours) 10/06/13 1440 WBC 7.3 HGB 10.7* HCT 32.0* PLT 300 NA 137 K 4.3 CL 101 BUN 24 CR 0.86 GLUC 149* Lab results (within last 13 months/9479hours) 10/02/13 1540 INR 1.0 PT 10.4 PTT 28.2 No results found for this basename: DPHTOTAL, in the last 9480 hours Assessment and Plan This is a 73 y.o.f. admitted with continuous drainage from lumbar incision site, now S/P in cisional drainage of wound with placement of a wound vac and reexploration of spinal fusion on 10/02/13, I and D of wound, wound vac and primary approximation of muscles on 10/05/13 an d 10/08/13 wound vac change. 1. S/P incisional drainage of wound with placement of a wound vac and reexploration of spin al fusion on 10/02/13, I and D of wound, wound vac and primary approximation of muscles on 1 12/06/12 and 10/08/13 wound vac change. -PT/OT -OOB TID and PRN -IS -Wound vac change on Saturday, or Saturday 2. Infection -Cultures currently without growth. -ID following and managing. Appreciate assistance! 3. HX of DM and A-fib -Currently controlled with home regimen. 4. Pain -Currently well controlled with current regimen 5. GI Prophylaxis -Continue pepcid 6. DVT Prophylaxis -SCDs and heparin as ordered 7. Bowel regimen 8. Discharge Planning -PT/OT recommendations currently for home. Pending wound vac change Saturday and OR ay -ELOS 3-5 days NICOLLE Sands 10/11/2013 09:58 7AM to 4PM reach me via [employer], 4PM to 7PM reach cross-cover via [employer] [facility] or page [phone] , 7PM to 7AM covered via [employer] Barker Operator/Nsg Fellow ickolas Lyon RN - 10/11/2013 5:45 AM PSTFormatting of this note might be different from the origi nal. Progress Notes by Christine Lyon RN at 10/11/1345 Author: Christine Lyon RN Service: (none) Author Type: Registered Nurse Filed: 10/11/13 0545 Date of Service: 10/11/13544 Status: Signed Window Shade Estimator: Christine Lyon RN (Registered Nurse) NS Progress Note Brief Patient: Rebecca Castillo No neuro changes overnight. Pain is well controlled with current medications. Benadryl gi alethea for itching with good results. She is ambulating independently. Voiding without diffic ulty, continues to have loose BMs, wants to continue to hold stool softeners. Wound vac david nge tomorrow and probable wound closure on Saturday. VSS. Will continue to monitor. Christine Lyon RN, 10/11/2013 5:45 AM abinaa Cartwright RN - 10/11/2013 12:18 AM PST Progress Notes by Fabiana Cartwright RN at 10/11/1317 Author: Fabiana Cartwright RN Service: (none) Author Type: Registered Nurse Filed: 10/11/13 0022 Date of Service: 10/11/1317 Status: Signed Window Shade Estimator: Fabiana Cartwright RN (Registered Nurse) NS Progress Note Brief Patient: Rebecca Castillo Patient reported to RN that her pain level was a 8/10 down to a 5-6/10 at intervals and was medicated for severe pain and discomfort with fair to adequate relief. Wound vac patent e xcept for dressing being reinforced x 2 for possible air leak per RN with good results. S table. Continue to monitor and to assess closely. Fabiana Cartwright RN, 10/11/2013 12:18 AM onversion Trans action, Provider Unknown - 10/10/2013 4:22 PM PST Progress Notes by Jil Xavier RN at 10/10/131621 Author: Jil Xavier RN Service: (none) Author Type: Registered Nurse Filed: 10/10/131623 Date of Service: 10/10/131621 Status: Signed Window Shade Estimator: Jil Xavier RN (Registered Nurse) Wound vac in place. Patient is up in room ambulating with a walker. Noon dose of Boylston he ld to due excess Tylenol administration. Abhishek Segura notified. Prn Tylenol discontinued. Pl an: Offer Oxycodone as ordered until Boylston can be safely administered. Continue plan of ca re. Brittani Escalante FNP - 10/10/2013 9:08 AM PST Progress Notes by Brittani Segura ARNP at 10/10/13907 Author: Brittani Segura ARNP Service: (none) Author Type: Nurse Practitioner Filed: 10/10/1314 Date of Service: 10/10/13907 Status: Signed Window Shade Estimator: Brittani Segura ARNP (Nurse Practitioner) NSR Progress Note ID: Rebecca Castillo; 73 y.o. female [facility] Attending Yong Pena MD Hospital Day # 8 PCP Jesus Mijares Procedure: 10/02/2013 1. Incision and drainage of wound with placement of a wound vacuum. 2. Reexploration of spinal fusion. 10/05/2013 I&D of wound, wound vac, muscles approximated primarily 10/08/2013 Wound vac change Subjective Patient has no complaints and no overnight events. Pain is well controlled with current reg imen. Ambulating with walker. Denies nausea, vomiting, weakness, numbness and tingling. Objective VS: Blood pressure 149/73, temperature 36.6 C (97.9 F), resp. rate 18, height 163 cm ( 5' 4.17"), weight 92.534 kg (204 lb), SpO2 98.00%.Temp (24hrs), Av.6 C (97.8 F), Min :36.4 C (97.5 F), Max:36.6 C (97.9 F) Cardiac Rhythm (monitored Pts.): Normal sinus rhythm I/O: Intake/Output Summary (Last 24 hours) at 10/10/13 0908 Last data filed at 10/09/13 2300 Gross per 24 hour Intake 1800 ml Output 0 ml Net 1800 ml General: Patient is awake and in NAD. Neuro: Patient is AO x3, CN II-XII are grossly intact, speech is clear and fluent, sensatio n is intact to light touch and the patient is moving all extremities well. ABREU. BU/LE 5/. Wound: The incision is clean, dry and intact. Wound vac intact with moderate amounts of ser osangenous drainage. Labs: Lab results (within last 13 months/9480hours) 10/06/13 1440 WBC 7.3 HGB 10.7* HCT 32.0* PLT 300 NA 137 K 4.3 CL 101 BUN 24 CR 0.86 GLUC 149* Lab results (within last 13 months/80hours) 10/02/13 1540 INR 1.0 PT 10.4 PTT 28.2 No results found for this basename: DPHTOTAL, in the last 9480 hours Assessment and Plan This is a 73 y.o.f. admitted with continuous drainage from lumbar incision site, now S/P in cisional drainage of wound with placement of a wound vac and reexploration of spinal fusion on 10/02/13, I and D of wound, wound vac and primary approximation of muscles on 10/05/13 an d 10/08/13 wound vac change. 1. S/P incisional drainage of wound with placement of a wound vac and reexploration of spin al fusion on 10/02/13, I and D of wound, wound vac and primary approximation of muscles on 1 12/06/12 and 10/08/13 wound vac change. -PT/OT -OOB TID and PRN -IS -Wound vac change on Saturday, or Saturday 2. Infection -Cultures currently without growth. -ID following and managing. Appreciate assistance! 3. HX of DM and A-fib -Currently controlled with home regimen. 4. Pain -Currently well controlled with current regimen 5. GI Prophylaxis -Continue pepcid 6. DVT Prophylaxis -SCDs and heparin as ordered 7. Bowel regimen 8. Discharge Planning -PT/OT recommendations currently for home. Pending wound vac change Saturday and OR ay -ELOS 3-5 days NICOLLE Sands 10/10/2013 09:08 7AM to 4PM reach me via [employer], 4PM to 7PM reach cross-cover via [employer] [facility] or page [phone] , 7PM to 7AM covered via [employer] Barker Operator/Nsg Fellow Nickolas Earl RN - 10/10/2013 5:46 AM PSTFormatting of this note might be different from the origi nal. Progress Notes by Christine Lyon RN at 10/10/13545 Author: Christine Lyon RN Service: (none) Author Type: Registered Nurse Filed: 10/10/13546 Date of Service: 10/10/13545 Status: Signed Window Shade Estimator: Christine Lyon RN (Registered Nurse) [place] Progress Note Brief Patient: Rebecca Rajputhn No change in neuro status overnight. Pain has been well controlled on current medications. She is ambulating independently in her room using front wheeled walker. Wound vac in plac e and set to continuous suction, no issues overnight, dressing intact. She continues to hav e loose stools, stool softeners held per pt's request. Plan for dressing change on Saturday a nd surgery to close wound on Saturday. VSS. Will continue to monitor. Christine Lyon RN, 10/10/2013 5:46 AM ary Lou Cherry RN - 7:47 PM PST Progress Notes by Mary Lou Cherry RN at 10/09/131946 Author: Mary Lou Cherry RN Service: (none) Author Type: Registered Nurse Filed: 10/09/13 1950 Date of Service: 10/09/131946 Status: Signed Window Shade Estimator: Mary Lou Cherry RN (Registered Nurse) NSG Progress Note Brief Patient: Rebecca Castillo [id number] Care of pain in the leg (due to struggle to put TEDs on earlier) with tylenol and Right JODI removed. Foot exercise encouraged and observed. Back pain controled with scheduled Boylston t o 12/21. Ambulating independently using a walker. VS stable. Mary Lou Cherry RN, 10/09/2013 7:47 PM Gerry Alcala - 1 12/10/2012 12:33 PM PST Progress Notes by Gerry Degroot MD at 10/09/13 1233 Author: Gerry Degroot MD Service: (none) Author Type: Physician Filed: 10/09/13 1234 Date of Service: 10/09/13 1233 Status: Signed Window Shade Estimator: Gerry Degroot MD (Physician) Plastic Surgery Deep closure looks intact on photo from yesterday's VAC change. Plan-VAC change Saturday, OR Saturday at about 3 pm Camryn SAVAGE Tete Sanchez RN - 10/09/2013 10:37 AM PST Progress Notes by Tete Moreno RN at 10/09/13 1037 Author: Tete Moreno RN Service: (none) Author Type: Registered Nurse Filed: 10/09/13 1510 Date of Service: 10/09/13 1037 Status: Addendum Window Shade Estimator: Tete Moreno, RN (Registered Nurse) Related Notes: Original Note by Tete Moreno, RN (Registered Nurse) filed at 10/09/13 1436 NSG Shift Summary Patient: Rebecca Castillo Pt w/ wound vac at 125mmhg, cdi; requiring s/s insulin @ each meal, edema juanjose LE's and decl raegan teds stating they hurt her legs (larger pair requested from cs & placed at 1500: pt leland l "try them out"), using scd's: foot of bed elevated this am . Digoxin held per protocol for HR this am (LIP(s) notified), HR taken q2h: held all shift; all bowel meds held this am 2nd loose stool yest. Cont to amb ind safely in room. Benadryl for intermittent itching dry sk inw/ relief. Tete Moreno RN, 10/09/2013 10:[address] A RNP - 10/09/2013 7:27 AM PST Progress Notes by Manasa Ortega ARNP at 10/09/13726 Author: Manasa Ortega ARNP Service: (none) Author Type: Nurse Practitioner Filed: 10/09/13 1017 Date of Service: 10/09/13726 Status: Signed Window Shade Estimator: Manasa Ortega ARNP (Nurse Practitioner) Neurosurgery Progress Note ID: Rebecca Castillo; 73 y.o. female Location: [id number] Attending Yong Pena MD Hospital Day # 7 PCP Jesus Mijares Procedure: 10/02/2013 1. Incision and drainage of wound with placement of a wound vacuum. 2. Reexploration of spinal fusion. 10/05/2013 I&D of wound, wound vac, muscles approximated primarily 10/08/2013 Wound vac change Post Operative Day # 7, 4, 1 Subjective Ms. Castillo reports she is feeling good at this point with no increased pain since the wound vac change. Does report some itching around the tape site. Objective VS: Blood pressure 124/49, temperature 36.4 C (97.5 F), resp. rate 18, height 163 cm ( 5' 4.17"), weight 92.534 kg (204 lb), SpO2 100.00%.Temp (24hrs), Av.4 C (97.5 F), Mi n:36.2 C (97.1 F), Max:36.8 C (98.2 F) Cardiac Rhythm (monitored Pts.): Normal sinus rhythm I/O: Intake/Output Summary (Last 24 hours) at 10/09/13726 Last data filed at 10/08/13 2300 Gross per 24 hour Intake 720 ml Output 0 ml Net 720 ml General: healthy, alert and in no distress Neuro: Awake, alert and oriented x 3; Cranial nerves II-XII grossly intact; Reflexes symmet rical; Motor intact with BUE and BLE 5/5; Sensation intact to soft touch. Wound: wound vac change Labs: Lab results (within last 13 months/rs) 10/06/13 1440 WBC 7.3 HGB 10.7* HCT 32.0* PLT 300 NA 137 K 4.3 CL 101 BUN 24 CR 0.86 GLUC 149* Lab results (within last 13 months/) 10/02/13 1540 INR 1.0 PT 10.4 PTT 28.2 No results found for this basename: DPHTOTAL, in the last 9480 hours Assessment/Plan: 1. S/P incision and drainage of wound with placement of a wound vacuum and reexploration of spinal fusion on 10/02/2013 followed by I&D of wound with wound vac replacement on 10/05/20 13. - Continue wound vac @ 125 mm Hg continuous suction * Wound vac change at bedside with wound care nurse Saturday (10/12/2013) - incision quite s uperficial and will only need IV prn med for change. - OOB with meals & Ambulate TID - Continue bowel medications - change several to prn - Push IS - 10x hourly while awake - Benadryl prn for itching 2. Pain - Continue scheduled [place] (2 tabs Q hours) with oxycodone 5-15 mg PO prn for breakthrou gh pain - Limit IV prn medication use - Muscle relaxors prn 3. DM - Continue home dose of amaryl - Continue SSI insulin with AC & HS coverage 4. Appreciate ID's recommendation for antibiotics - Cultures have no growth as of this am 5. History of a-fib - Please do not hold the digoxin without paging me to discuss. Thanks! 6. Discharge planning - Plan on wound vac change Saturday at bedside with closure next week, possibly Saturday. NICOLLE Gamble 07:27; 10/09/2013 ife, Nickolas Perez RN - 10/09/2013 6:06 AM PSTFormatting of this note might be different from the origi nal. Progress Notes by Christine Lyon RN at 10/09/13605 Author: Christine Lyon RN Service: (none) Author Type: Registered Nurse Filed: 10/09/13605 Date of Service: 10/09/13605 Status: Signed Window Shade Estimator: Christine Lyon RN (Registered Nurse) [facility] [place] Progress Note Brief Patient: Rebecca Castillo No change in neuro status overnight. She continues to have baseline chronic peripheral teo ropathy in both feet. Her pain has been well controlled with current medications. Wound va c in place, dressing intact. Stated the area around the dressing was itching this am, reque nitish stephens, paged [facility], awaiting orders. She is ambulating independently in the room usin g four wheeled walker. Voiding without difficulty. She had two loose BMs yesterday, she saul s requested to hold bowel medications for now. VSS. Will continue to monitor. Christine Lyon RN, 10/09/2013 6:06 AM onversion Transactio n, Provider Unknown - 10/08/2013 6:50 PM PST Progress Notes by Todd Vick RN at 10/08/131849 Author: Todd Vick RN Service: (none) Author Type: Registered Nurse Filed: 10/08/131901 Date of Service: 10/08/131849 Status: Addendum Window Shade Estimator: Todd Vick RN (Registered Nurse) Related Notes: Original Note by Todd Vick RN (Registered Nurse) filed at 10/08 [facility] [place] Progress Note Brief Patient: Rebecca Castillo No neuro changes this shift. Ambulating in room independently, tolerates well. Had large lo ose BM this evening, continuing to hold bowel care meds. 3+ edema in lower extremities, elev ated on pillows, SCDs on. Wound vac changed this AM by beef pluck trimmer. Pt tolerated well afte r 2mg IV dilaudid administered. Reports back pain improved afterwards. Pain well controlled on current regimen. Blood sugars range from 128-156, covered with SSI. HR and BP closely mon itored throughout day - Digoxin administered late this AM per verbal order from Erica BOYLE POWER PRESS TENDER d/t low HR - administered when HR over 60. Beta hussein held this AM. Plan for wound vac change again on 10/12. Will cont to monitor. Todd Vick RN, 10/08/2013 6:50 PM Shannon Monroe RN-CWOCN - 10/08/2013 1:26 PM PST Progress Notes by Shannon Escalante RN, CWCN at 10/08/13 1326 Author: Shannon Escalante RN, JORDAN Service: (none) Author Type: Wound/Ostomy Nurse Filed: 10/09/13 0842 Date of Service: 10/08/13 1326 Status: Addendum Window Shade Estimator: Shannon Escalante RN, JORDAN (Wound/Ostomy Nurse) Related Notes: Original Note by Shannon Escalante RN, JORDAN (Wound/Ostomy Nurse) filed at 1 12/09/12 1635 WOUND CARE VAC DRESSING CHANGE: "525E/525E1 Brief history: re admit for lumbar spine wound drainage. She is s/p Exploration of deep spi ne wound and inspection of fusion, deep reconstruction with right and left latissimus dorsi muscle flaps on 10/05/13. Wound care asked to assist changing the VAC sponge.patient is aler t, awake and has moderate pain. Past Medical History Diagnosis Date Coronary artery disease High blood pressure A-fib Type II or unspecified type diabetes mellitus without mention of complication, not stat ed as uncontrolled Generalized osteoarthrosis, unspecified site HTN (hypertension) ```````````` Pertinent labs: Lab results (within last 13 months/9480hours) 10/06/13 1440 HCT 32.0* WBC 7.3 Wound # site Type Wound size In (cm) lxwxd Stge Exudate Amount Color Odor Irina wound Tunnel Wound base Appearance Wound Present On Admit 1 Lumbar spine surgical 10x3x3 Full thick Mild serosang Drain in Canister Very light Rash ? Adhesive related none Red mostly Dull And anemic appearing has Some Black sutures noted And yellow fibrinous material n/a Goal: protect the wound and maintain closed suction. Plan / Treatment: wound was irrigated with saline, irina wound edges prepped. Wound base wa s protected with cuticern mesh non adhesive contact layer then one piece black sponge used t o dress the wound base. Drape applied and suction re turned to -125 mmhg at continuous rate. Wound Related Pain Issues: moderated pre and post VAC dressing change. She gets routine and prn pain med to control discomforts. Patient Education/Notes: above plan. Shannon Escalante RN, CWCN onversion Tra nsaction, Provider Unknown - 10/08/2013 1:19 PM PSTFormatting of this note might be differe nt from the original. Progress Notes by Lucy Ruiz RD at 10/08/13 3049 Author: Lucy Ruiz RD Service: (none) Author Type: Registered Dietitian Filed: 10/08/13 5444 Date of Service: 10/08/131318 Status: Signed Window Shade Estimator: Lucy Ruiz RD (Registered Dietitian) Medical Nutrition Therapy Nutrition Assessment Diet: General BMI: 34.8 PO: 100% GI: +BM 10/06 Labs: Glu 102-227mg/dL Drains: wound vac 300mL output See nutrition flowsheet for complete assessment parameters. 73 yo female continues to show excellent PO intake throughout the day. Has been consuming 1 00% of well balanced, high protein meals, met with patient and at bedside who states she has been eating very well. Continues to receive Boost supplement beverages between meal s which she has been additionally drinking. Offered to send protein powder packets on meal t rays for extra source of protein. Pt and agree. No current nutritional labs to asses s, will request prealbumin. Continue to encourage ongoing strong PO intake throughout the day of nutrient dense, high p rotein meals and snacks. Continue Boost supplements and add protein powder. Will continue to monitor pt with team. See nutrition flowsheet for complete assessment parameters. PLAN 1. Encourage ongoing strong PO intake throughout the day 2. Boost between meals, protein powder on meal trays 3. Order Prealbumin lab 4. Will continue to monitor pt with team Lucy Ruiz RD, 10/08/2013 1:23 PM Tim Mace MD - 10/08/2013 10:15 AM PSTFormatting of this note might be different from the o riginal. Progress Notes by Tim Alvarez MD at 10/08/13 1015 Author: Tim Alvarez MD Service: (none) Author Type: Physician Filed: 10/08/13 1017 Date of Service: 10/08/13 1015 Status: Signed Window Shade Estimator: Tim Alvarez MD (Physician) Infectious Diseases Progress Note Rebecca Castillo 10/08/2013, Hospital Day # 6 Impression: stable from ID view 1. Lumbar wound infection 09/15 with E.coli and proteus after lumbar laminectomy with hardwa re 08-07-13. Wound was superficial at debridement 09/16. Treated with augmentin. F/u culture s neg. 2. Wound dehiscence on admit 10/02 after closure 09/16. Wound cultures neg. Vac on current ly and plans for closure in [address] Degroot. 3. DM 4. Obesity 5. Hx afib Recommendations: 1. will change Unasyn to augmentin today 2. Anticipating surg next Saturday Current Antibiotics: Subjective: Admit/hospitalization reviewed. Came back for suture removal and the distal portion of the wound was open. Reviewed yesterday Objective: Temp: 36.4 C (97.5 F), BP: 116/51 mmHg, Heart Rate: 57, Resp: 16, SpO2: 97 %, O2 Liter Flow (1L or More): 3L/min, Weight: 92.534 kg (204 lb) General: In NAD Back wound with vac on. No surrounding cellulitis. NT. Skin: Without r satish IV: without inflammation ABD: Soft, Non-tender Ext: 1-2+ edema No tenderness. Mild stasis dermatitis, chronic. Labs: Lab results (within last 13 months/9480hours) 10/06/13 1440 10/02/13 1540 WBC 7.3 < > 6.6 RBC 3.44* < > 3.83 HGB 10.7* < > 12.0 HCT 32.0* < > 35.9 MCV 93 < > 94 MCH 31.1 < > 31.3 MCHC 33.4 < > 33.4 RDW 14.3 < > 14.7 PLT 300 < > 346 | 346 POLYAP -- -- 49 LYMP -- -- 41 MONOP -- -- 7 EOSP -- -- 3 BASP -- -- 1 < > = values in this interval not displayed. Lab results (within last 13 months/80hours) 10/06/13 1440 10/03/13 0700 10/02/13 1540 NA 137 139 139 K 4.3 4.9 4.6 CL 101 102 102 TCO2 30* 26 26 BUN 24 27 32* CR 0.86 1.03* 1.00 GLUC 149* 151* 105* Lab results (within last 13 months/80hours) 10/02/13 1540 ESR 49* Lab results (within last 13 months/9479hours) 10/02/13 1540 CRP 1.8* Cultures: 10/02 and 10/05 neg. Reviewed. Xray: None new Tim Alvarez MD [phone] 35 min spent FTF, >50% time counseling and reviewing her hospitalization Gerry Alcala - 10/08/2013 6:55 AM PST Progress Notes by Gerry Degroot MD at 10/08/1355 Author: Gerry Degroot MD Service: (none) Author Type: Physician Filed: 10/08/13 0656 Date of Service: 10/08/13654 Status: Signed Window Shade Estimator: Gerry Degroot MD (Physician) Plastic Surgery VAC change ordered for today. Will ask for 2nd change Saturday, plan surgery end of day Saturday. Camryn SAVAGE Jose Glass RN - 10/08/2013 6:30 AM PSTFormatting of this note might be different from the origi nal. Progress Notes by Jose Kahn RN at 10/08/13629 Author: Jose Kahn RN Service: (none) Author Type: Registered Nurse Filed: 10/08/1354 Date of Service: 10/08/13629 Status: Signed Window Shade Estimator: Jose Kahn RN (Registered Nurse) NS Progress Note Brief Patient: Rebecca Castillo Pt A&Ox4, ABREU, ambulates independently in room. C/o lower back pain that radiates bilateral ly to legs. Adequate relief with prn oxycodone and scheduled norco. Wound vac patent and suc tioning. Pt declined bowel meds as they cause "too many BM's." Pt to have wound vac change w [facility] wound care nurse in AM at bedside. No orders for NPO. Pt NPO since midnight except for P O meds as pt "wants to be safe" in regards to procedure tomorrow. Voids without difficulty. Will continue to monitor. Jose Kahn RN, 10/08/2013 6:[address] ARNP - 10/08/2013 5:22 AM PSTFormatting of this note might be different from the or iginal. Progress Notes by Manasa Ortega ARNP at 10/08/13521 Author: Manasa Ortega ARNP Service: (none) Author Type: Nurse Practitioner Filed: 10/08/1332 Date of Service: 10/08/13521 Status: Signed Window Shade Estimator: Manasa Ortega ARNP (Nurse Practitioner) Neurosurgery Progress Note ID: Rebecca Castillo; 73 y.o. female Location: [id number]/525E1 Attending Yong Pena MD Hospital Day # 6 PCP Jesus Mijares Procedure: 10/02/2013 1. Incision and drainage of wound with placement of a wound vacuum. 2. Reexploration of spinal fusion. 10/05/2013 I&D of wound, wound vac, muscles approximated primarily Post Operative Day # 6, 3 Subjective Ms. Castillo reports she is doing ok, denying any of the low back and leg pain at this time, s tating it resolved when she removed the compression stockings. Ambulating well independently . Understands wound vac will be changed today at bedside. Objective VS: Blood pressure 124/69, temperature 36.3 C (97.4 F), resp. rate 16, height 163 cm ( 5' 4.17"), weight 92.534 kg (204 lb), SpO2 98.00%.Temp (24hrs), Av.6 C (97.8 F), Min :36.1 C (97 F), Max:37 C (98.6 F) Cardiac Rhythm (monitored Pts.): Normal sinus rhythm I/O: Intake/Output Summary (Last 24 hours) at 10/08/13 0522 Last data filed at 10/08/13 0321 Gross per 24 hour Intake 1310 ml Output 300 ml Net 1010 ml General: healthy, alert and in no distress Neuro: Awake, alert and oriented x 3; Cranial nerves II-XII grossly intact; Reflexes symmet rical; Motor intact with BUE and BLE 5/5; Sensation intact to soft touch. Wound: wound vac in place Labs: Lab results (within last 13 months/9479hours) 10/06/13 1440 WBC 7.3 HGB 10.7* HCT 32.0* PLT 300 NA 137 K 4.3 CL 101 BUN 24 CR 0.86 GLUC 149* Lab results (within last 13 months/9479hours) 10/02/13 1540 INR 1.0 PT 10.4 PTT 28.2 No results found for this basename: DPHTOTAL, in the last 9480 hours Assessment/Plan: 1. S/P incision and drainage of wound with placement of a wound vacuum and reexploration of spinal fusion on 10/02/2013 followed by I&D of wound with wound vac replacement on 10/05/20 13. - Continue wound vac @ 125 mm Hg continuous suction * Wound vac change at bedside with wound care nurse today and Saturday (10/12/2013) - incisi on quite superficial and will only need IV prn med for change. - PT/OT while inpatient - OOB with meals & Ambulate TID - Continue bowel medications - Push IS - 10x hourly while awake 2. Pain - Continue scheduled [place] (2 tabs Q hours) with oxycodone 5-15 mg PO prn for breakthrou gh pain - Limit IV prn medication use - Muscle relaxors prn 3. DM - Continue home dose of amaryl - Continue SSI insulin with AC & HS coverage 4. Appreciate ID's recommendation for antibiotics - Cultures have no growth as of this am 5. History of a-fib - Please do not hold the digoxin without paging me to discuss. Thanks! 6. Discharge planning - Plan on wound vac change today and Saturday at bedside with closure next week, possibly Saturday. NICOLLE Gamble 05:22; 10/08/2013 onjaylon n Transaction, Provider Unknown - 10/07/2013 1:11 PM PSTFormatting of this note might be di fferent from the original. Progress Notes by Mario Granados RN at 10/07/13 1311 Author: Mario Granados RN Service: (none) Author Type: Registered Nurse Filed: 10/07/13 1316 Date of Service: 10/07/13 1311 Status: Signed Window Shade Estimator: Mario Granados RN (Registered Nurse) NSG Progress Note Brief Patient: Rebecca Castillo Pt. Called and C/O "Heart flutter". No definite pain per se. C/O light headedness. RAW MATERIAL HANDLER carlos led. EKG shows A-Fib. HR 110's. Wound vac shows occluded. Charge nurse aware. Will try to tr oubleshoot wound vac. Call light within reach, will continue to monitor. Mario Granados RN, 10/07/2013 1:11 PM Brittani Antunez PA - 10/07/2013 11:08 AM PSTFormatting of this note might be different from the o riginal. Progress Notes by Brittani Esparza PA-C at 10/07/13 1108 Author: Brittani Esparza PA-C Service: (none) Author Type: Physician Examination Supervisor Filed: 10/07/13 1110 Date of Service: 10/07/13 1108 Status: Signed Window Shade Estimator: Brittani Esparza PA-C (Physician Examination Supervisor) Neurosurgery Progress Note ID: Rebecca Castillo; 73 y.o. female Location: [id number]/[id number] Attending Yong Pena MD Hospital Day # 5 PCP Jesus Mijares Procedure: 10/02/2013 1. Incision and drainage of wound with placement of a wound vacuum. 2. Reexploration of spinal fusion. 10/05/2013 I&D of wound, wound vac, muscles approximated primarily Post Operative Day # 4, 1 Subjective Patient has no complaints and no overnight events. Objective VS: Blood pressure 106/56, temperature 37 C (98.6 F), resp. rate 16, height 163 cm (5' 4.17"), weight 92.534 kg (204 lb), SpO2 95.00%.Temp (24hrs), Av.7 C (98.1 F), Min:3 6.4 C (97.6 F), Max:37.3 C (99.2 F) Cardiac Rhythm (monitored Pts.): Normal sinus rhythm I/O: Intake/Output Summary (Last 24 hours) at 10/07/13 1108 Last data filed at 10/07/13 0900 Gross per 24 hour Intake 1310 ml Output 0 ml Net 1310 ml General: Patient is awake and in NAD. Neuro: Patient is AO x3, CN II-XII are grossly intact, speech is clear and fluent, sensatio n is intact to light touch and the patient is moving all extremities well. No pronator drif t. Wound: Wound vac intact. Labs: Lab results (within last 13 months/9479hours) 10/06/13 1440 WBC 7.3 HGB 10.7* HCT 32.0* PLT 300 NA 137 K 4.3 CL 101 BUN 24 CR 0.86 GLUC 149* Lab results (within last 13 months/9479hours) 10/02/13 1540 INR 1.0 PT 10.4 PTT 28.2 No results found for this basename: DPHTOTAL, in the last 9480 hours Assessment/Plan: 1. S/P incision and drainage of wound with placement of a wound vacuum and reexploration of spinal fusion on 10/02/2013 followed by I&D of wound with wound vac replacement on 10/05/20 13. - Continue wound vac @ 125 mm Hg continuous suction * Wound vac change at bedside with wound care nurse this 10/08/2013 - incision becky te superficial and will only need IV prn med for change. - PT/OT while inpatient - OOB with meals & Ambulate TID - Continue bowel medications - Push IS - 10x hourly while awake 2. Pain - Continue scheduled [place] (2 tabs Q hours) with oxycodone 5-15 mg PO prn for breakthrough pain - Limit IV prn medication use - Muscle relaxors prn 3. DM - Continue home dose of amaryl - Continue SSI insulin with AC & HS coverage 4. Appreciate ID's recommendation for antibiotics - Cultures have no growth as of this am 5. Discharge planning - Plan on wound vac change tomorrow at bedside with closure next week. Brittani Esparza PA-C 10/07/2013 11:08 7AM to 7PM reach me via [employer], 7PM to 7AM covered via [facility] Barker Operator/Nsg Fellow Lakesha Freeman RN - 10/07/2013 3:19 AM PST Progress Notes by Lakesha Melendez at 10/07/139 Author: Lakesha Melendez Service: (none) Author Type: Registered Nurse Filed: 10/07/13 0548 Date of Service: 10/07/13318 Status: Addendum Window Shade Estimator: Lakesha Melendez (Registered Nurse) Related Notes: Original Note by Lakesha Melendez (Registered Nurse) filed at 10/07/13 053 0 NSG Progress Note Brief Patient: Rebecca Castillo Pt alert and oriented overnight. Complaints of bilateral hip pain shooting into her legs. N o worsening changes to sensation (has chronic peripheral neuropathy) or changes in strength. States the pain started during the day. Relieved with PRN oxycodone, IV dilaudid and a hot pack to the right hip. Declined ice therapy as she states cold causes spasms and worse disco mfort. Wound vac patent and functioning. Bilateral lower extremity edema, 2+. Wearing JODI ho se, legs elevated throughout the night. Able to ambulate independently, at times needs one s taff assistance for help with equipment. Having loose stools, bowel meds held. Will continue to monitor. Lakesha Melendez, 10/07/2013 5:48 AM arish Shepard RN - 10/06/2013 6:36 PM PST Progress Notes by Harish Shepard RN at 10/06/131835 Author: Harish Shepard RN Service: (none) Author Type: Registered Nurse Filed: 10/06/13 184 Date of Service: 10/06/131835 Status: Signed Window Shade Estimator: Harish Shepard RN (Registered Nurse) NSG Shift Summary Patient: Rebecca Castillo Pt is AOx4, ABREU. Dressing is CDI. She is ambulating frequently in her room and the halls to day. Large BM today. She is eating well with no complaints of nausea. She reports being depr essed d/t her ongoing hospitalization: comfort measures provided. Her pain is well controlle d. HR and BP were low this morning, and her acebutolol held per provider. Glucose 228, 163 a nd 207 today. Harish Shepard RN, 10/06/2013 6:36 PM onversion Transacti on, Provider Unknown - 10/06/2013 12:46 PM PSTFormatting of this note might be different fro m the original. Progress Notes by Teddy Cruz at 10/06/13 1246 Author: Teddy Cruz Service: (none) Author Type: Cryptographer Filed: 10/06/13 7205 Date of Service: 10/06/131245 Status: Signed Window Shade Estimator: Teddy Cruz (Cryptographer) Routine Spiritual Care intro. Pt seated on edge of bed, alert and interactive. "I had to spend Thanksgiving in the hospital, now [place]. Maybe I'll be home for New Years," she s aid. She sounds like she is coping well considering. She lives with a daughter and has a s on "[place]," so has good family support. I provided supportive presence. No part icular requests of Spiritual Care. Teddy Cruz at 12:48 on 10/06/2013 oTim chicas MD - 10/06/2013 7:56 AM PSTFormatting of this note might be different from the o riginal. Progress Notes by Tim Alvarez MD at 10/06/13 9207 Author: Tim Alvarez MD Service: (none) Author Type: Physician Filed: 10/06/13 0803 Date of Service: 10/06/13 610 Status: Signed Window Shade Estimator: Tim Alvarez MD (Physician) Infectious Diseases Progress Note Rebecca Castillo 10/06/2013, Hospital Day # 4 Impression: 1. Lumbar wound infection 09/15 with E.coli and proteus after lumbar laminectomy with hardwa re 08-07-13. Wound was superficial at debridement 09/16. Treated with augmentin. F/u culture s neg. 2. Wound dehiscence on admit 10/02 after closure 09/16. Wound cultures neg. Vac on current ly and plans for closure in [address] Degroot. 3. DM 4. Obesity 5. Hx afib Recommendations: 1. Continue Unasyn for now although will change to augmentin soon, likely assuming cultures from 10/05 are neg. Current Antibiotics: Subjective: Admit/hospitalization reviewed. Came back for suture removal and the distal portion of the wound was open Objective: Temp: 36.9 C (98.4 F), BP: 124/69 mmHg, Heart Rate: 51, Resp: 18, SpO2: 97 %, O2 Liter Flow (1L or More): 3L/min, Weight: 92.534 kg (204 lb) General: In NAD Back wound with vac on. No surrounding cellulitis. NT. Skin: Without r satish IV: without inflammation ABD: Soft, Non-tender Ext: 1-2+ edema No tenderness. Mild stasis dermatitis, chronic. Labs: Lab results (within last 13 months/9480hours) 10/03/13 0700 10/02/13 1540 WBC 6.1 6.6 RBC 3.50* 3.83 HGB 10.9* 12.0 HCT 32.8* 35.9 MCV 94 94 MCH 31.1 31.3 MCHC 33.2 33.4 RDW 14.8 14.7 PLT 351 346 | 346 POLYAP -- 49 LYMP -- 41 MONOP -- 7 EOSP -- 3 BASP -- 1 Lab results (within last 13 months/rs) 10/03/13 0700 10/02/13 1540 09/19/13 0557 09/15/13 1559 NA 139 139 -- -- 132* K 4.9 4.6 -- -- 4.9 CL 102 102 -- -- 93* TCO2 26 26 -- -- 27 BUN 27 32* -- -- 48* CR 1.03* 1.00 0.61 < > 1.54* GLUC 151* 105* -- -- 155* < > = values in this interval not displayed. Lab results (within last 13 months/) 10/02/13 1540 ESR 49* Lab results (within last months/) 10/02/13 1540 CRP 1.8* Cultures: 10/02 and 10/05 neg. Reviewed. Xray: None new Tim Alvarez MD [phone] 35 min spent FTF, >50% time counseling and reviewing her hospitalization Gerry Alcala - 10/06/2013 6:34 AM PST Progress Notes by Gerry Degroot MD at 10/06/13 06 Author: Gerry Degroot MD Service: (none) Author Type: Physician Filed: 10/08/1335 Date of Service: 10/06/13633 Status: Signed Window Shade Estimator: Gerry Degroot MD (Physician) Plastic Surgery (delayed entry) Discussed findings and plan. Vac change this week, then Saturday, closure early next week--p robably Saturday. VAC is functioning properly, skin edges less red. Camryn SAVAGE onversion Transacti on, Provider Unknown - 10/06/2013 6:19 AM PSTFormatting of this note might be different fro m the original. Progress Notes by Jia Cortes RN at 10/06/13618 Author: Jia Cortes RN Service: (none) Author Type: Registered Nurse Filed: 10/06/13618 Date of Service: 10/06/13618 Status: Signed Window Shade Estimator: Jia Cortes RN (Registered Nurse) NSG Shift Summary Patient: Rebecca Castillo Alert and oriented x4. Painful, particularly with movement, but tolerable with current pain regimen of Boyl[place] and PRN oxycodone. Ambulating to BR every 2-3 hours with SBA. Minimal drai nage in wound vac overnight, good seal in dressing. Calls appropriately. Will cont to thelmao r. Jia Cortes RN, 10/06/2013 6:19 AM ageManasa ARNP - 10/06/2013 5:34 AM PSTFormatting of this note might be different from th e original. Progress Notes by Manasa Ortega ARNP at 10/06/13 0534 Author: Manasa Ortega ARNP Service: (none) Author Type: Nurse Practitioner Filed: 10/06/13 0739 Date of Service: 10/06/1334 Status: Signed Window Shade Estimator: Manasa Ortega ARNP (Nurse Practitioner) Neurosurgery Progress Note ID: Rebecca Castillo; 73 y.o. female Location: 525E/525E1 Attending Yong Pena MD Hospital Day # 4 PCP Jesus Mijares Procedure: 10/02/2013 1. Incision and drainage of wound with placement of a wound vacuum. 2. Reexploration of spinal fusion. 10/05/2013 I&D of wound, wound vac, muscles approximated primarily Post Operative Day # 4, 1 Subjective Ms. Castillo reports she is doing ok, stating good pain control at this point. Has a poor leann etite and states she is quite depressed with how this has turned out. Trying to remain opti mistic. Objective VS: Blood pressure 124/48, temperature 36.8 C (98.3 F), resp. rate 20, height 163 cm ( 5' 4.17"), weight 92.534 kg (204 lb), SpO2 97.00%.Temp (24hrs), Av.9 C (98.4 F), Min :36.3 C (97.3 F), Max:37.5 C (99.5 F) Cardiac Rhythm (monitored Pts.): Normal sinus rhythm I/O: Intake/Output Summary (Last 24 hours) at 10/06/13 0534 Last data filed at 10/06/13 0524 Gross per 24 hour Intake 2310 ml Output 1425 ml Net 885 ml General: healthy, alert and in no distress Neuro: Awake, alert and oriented x 3; Cranial nerves II-XII grossly intact; Reflexes symmet rical; Motor intact with BUE and BLE 5/5; Sensation intact to soft touch. Wound: wound vac in place Labs: Lab results (within last 13 months/) 10/03/13 0700 WBC 6.1 HGB 10.9* HCT 32.8* PLT 351 NA 139 K 4.9 CL 102 BUN 27 CR 1.03* GLUC 151* Lab results (within last 13 months/) 10/02/13 1540 INR 1.0 PT 10.4 PTT 28.2 No results found for this basename: DPHTOTAL, in the last 9480 hours Assessment/Plan: 1. S/P incision and drainage of wound with placement of a wound vacuum and reexploration of spinal fusion on 10/02/2013 followed by I&D of wound with wound vac replacement on 10/05/20 13. - Continue wound vac @ 125 mm Hg continuous suction * Wound vac change at bedside with wound care nurse this 10/08/2013 - incision qu ite superficial and will only need IV prn med for change. - PT/OT while inpatient - OOB with meals & Ambulate TID - Continue bowel medications - Push IS - 10x hourly while awake 2. Pain - Continue scheduled [place] (2 tabs Q hours) with oxycodone 5-15 mg PO prn for breakthrou gh pain - Limit IV prn medication use - Muscle relaxors prn 3. DM - Continue home dose of amaryl - Continue SSI insulin with AC & HS coverage 4. Appreciate ID's recommendation for antibiotics - Cultures have no growth as of this am 5. Discharge planning - Plan on wound vac change this at bedside with closure next week. Erica OrtegaNICOLLE 05:34; 10/06/2013 Kal Fofana OT - 10/05/2013 3:13 PM PSTFormatting of this note might be different from the andres giiliana. Progress Notes by Lubna Peck OT at 10/05/13 1513 Author: Lubna Peck OT Service: (none) Author Type: Occupational Therapist Filed: 10/05/131520 Date of Service: 10/05/131512 Status: Signed Window Shade Estimator: Lubna Peck OT (Occupational Therapist) OCCUPATIONAL THERAPY INTERVENTIONS/DAILY NOTE Duration of Session Time In: 1350 Time Out: 1420 Precautions: Cleared for OOB: Yes Spinal Surgery Precautions: General spine surgery Patient Comments: i want this to heal up FUNCTIONAL STATUS/INTERVENTIONS Upper Extremity Function: functional, slight tremors Cognitive/Perception: intact ACTIVITIES OF DAILY LIVING LEVEL OF ASSIST COMMENT/INTERVENTION Self Feeding Grooming Bathing Dressing-Upper SBA to don gown over back Dressing-Lower Toileting On/off mod indep indep manage clothing & wiping Functional Transfers Mobility with walker supervision BTB with supv Higher Living Skills ASSESSMENT Pain Assessment during therapy session Patient c/o pain 4/10 Location of pain: incision Progress/Response to Therapy: pt doing well ambulating around room with walker close superv ision, mod independent on/off toilet in room. Tolerated walk out of room into echeverria without r est break. No LOB, steady on feet, UE mild tremors. Returned BTB with supervision, pt has g ood adherence to spine precautions. No skilled OT needs will d/c from therapy, pt encouraged to walk with nursing staff. Barriers to Discharge: medical Discharge recommendations: Home, if possible with wound vac, OPPT PLAN Frequency: Goals met, will discharge from Occupational Therapy Services Plan for Next Visit: Lidia Jama RN - 10/05/2013 12:22 PM PSTFormatting of this note might be different from the andres ginal. Progress Notes by Lidia Campos RN at 10/05/13 1222 Author: Lidia Campos RN Service: (none) Author Type: Registered Nurse Filed: 10/05/13 1225 Date of Service: 10/05/13 1222 Status: Signed Window Shade Estimator: Lidia Campos RN (Registered Nurse) Back to room at 1030. Alert but still sleepy. Denies pain. Back dressing and wound vac inta ct at 125mmhg suction. Small drainage on the tubing only. Iv line needs restarted, iv nurse texted. Needs ivf to continue at 100 cc/hr report given to incoming nurse. Vital signs take n and recorded. Jacike Tran DO - 10/05/2013 9:36 AM PST Progress Notes by Jackie Skaggs DO at 10/05/13 0936 Author: Jackie Skaggs DO Service: (none) Author Type: Physician Filed: 10/05/13 0939 Date of Service: 10/05/1336 Status: Signed Window Shade Estimator: Jackie Skaggs DO (Physician) Neurosurgery Brief Note For: Rebecca Lua Jonathan; 73 y.o. female Location: [facility] PACU POOL ROOM/POOL Attending Yong Pena MD Hospital Day # 3 PCP Jesus Mijares Preop: wound dehiscence Postop: same Surgeon: Zane Assit: Giles Procedure: I&D of wound, wound vac, muscles approximated primarily Cultures from wound sent intra op EBL: minimal Complications : none Jackie Skaggs 09:36; 10/05/2013 Albina Mace MD - 10/05/2013 8:27 AM PSTFormatting of this note might be different from the orig inal. Progress Notes by Tim Alvarez MD at 10/05/13826 Author: Tim Alvarez MD Service: (none) Author Type: Physician Filed: 10/05/1332 Date of Service: 10/05/13826 Status: Signed Window Shade Estimator: Tim Alvarez MD (Physician) Infectious Diseases Progress Note Rebecca Castillo 10/05/2013, Hospital Day # 3 I'm aware she is in the hospital with a wound dehiscence and at exploration Saturday the woun d cultures are neg so far. Likely no superinfection. I read the wound edges are inflamed. I suspect this is contact dermatitis as there was no erythema noted on the admission H+P Discussed with Renetta Ortega on 10/02. Ms. Castillo is currently in the OR and I am unable to see her. Will try later or tomorrow. Please call me prn to discuss. I will change zosyn to Unasyn. Tim Alvarez MD [phone] anasa Ortega AR POWER PRESS TENDER - 10/05/2013 6:35 AM PST Progress Notes by Manasa Ortega ARNP at 10/05/13634 Author: Manasa Ortega ARNP Service: (none) Author Type: Nurse Practitioner Filed: 10/05/13850 Date of Service: 10/05/13634 Status: Signed Window Shade Estimator: Manasa Ortega ARNP (Nurse Practitioner) Neurosurgery Progress Note ID: Rebecca Castillo; 73 y.o. female Location: 525E/525E1 Attending Yong Pena MD Hospital Day # 3 PCP Jesus Mijares Procedure: 1. Incision and drainage of wound with placement of a wound vacuum. 2. Reexploration of spinal fusion. Post Operative Day # 3 Subjective Ms. Castillo reports she is feeling ok, noticing the wound vac more overnight because the syst em was beeping. Pain fairly well controlled at this point. Objective VS: Blood pressure 114/58, temperature 36.7 C (98.1 F), resp. rate 16, height 163 cm ( 5' 4.17"), weight 92.534 kg (204 lb), SpO2 96.00%.Temp (24hrs), Av.8 C (98.2 F), Min :36.7 C (98 F), Max:37 C (98.6 F) Cardiac Rhythm (monitored Pts.): Normal sinus rhythm I/O: Intake/Output Summary (Last 24 hours) at 10/05/13 0635 Last data filed at 10/05/13 0600 Gross per 24 hour Intake 1350 ml Output 0 ml Net 1350 ml General: healthy, alert and in no distress Neuro: Awake, alert and oriented x 3; Cranial nerves II-XII grossly intact; Reflexes symmet rical; Motor intact with BUE and BLE 5/5; Sensation intact to soft touch. Wound: wound vac in place Labs: Lab results (within last 13 months/80hours) 10/03/13 0700 WBC 6.1 HGB 10.9* HCT 32.8* PLT 351 NA 139 K 4.9 CL 102 BUN 27 CR 1.03* GLUC 151* Lab results (within last 13 months/9479hours) 10/02/13 1540 INR 1.0 PT 10.4 PTT 28.2 No results found for this basename: DPHTOTAL, in the last 9480 hours Assessment/Plan: 1. S/P incision and drainage of wound with placement of a wound vacuum and reexploration of spinal fusion. - OR today with Dr. Degroot * NPO since midnight * Chlorhexidine bath completed - PT/OT while inpatient - OOB with meals & Ambulate TID - Continue bowel medications - Push IS - 10x hourly while awake 2. Pain - Continue scheduled [place] (2 tabs Q hours) with oxycodone 5-15 mg PO prn for breakthro ugh pain - Limit IV prn medication use - Muscle relaxors prn 3. DM - Continue home dose of amaryl - Continue SSI insulin with AC & HS coverage 4. Appreciate ID's recommendation for antibiotics - Cultures have no growth as of this am 5. Discharge planning - Dependent on intra-op findings NICOLLE Gamble 06:35; 10/05/2013 Lakesha Shipman RN - 10/05/2013 4:17 AM PSTFormatting of this note might be different from the andres fortino. Progress Notes by Lakesha Melendez at 10/05/13416 Author: Lakesha Melendez Service: (none) Author Type: Registered Nurse Filed: 10/05/1347 Date of Service: 10/05/13416 Status: Signed Window Shade Estimator: Lakesha Melendez (Registered Nurse) NSLissa Progress Note Brief Patient: Rebecca Castillo Pt slept well overnight. Alert and oriented. Wound wac in place, closure vs replacement thi s AM. Canister changed without issue. NPO for procedure. Pain controlled with norco and one dose of IV dilaudid overnight. Able to ambulate with one staff assistance and her walker. Wi ll continue to monitor. Lakesha Melendez, 10/05/2013 6:47 AM onversion Transact ion, Provider Unknown - 10/04/2013 7:58 PM PSTFormatting of this note might be different fr om the original. Progress Notes by Todd Vick RN at 10/04/131957 Author: Todd Vick RN Service: (none) Author Type: Registered Nurse Filed: 10/04/131999 Date of Service: 10/04/131957 Status: Signed Window Shade Estimator: Todd Vick RN (Registered Nurse) [facility] [place] [facility] Progress Note Brief Patient: Rebecca Castillo No neuro changes. Wound vac remains at 125 continuous suction - no issues. Pain well manage d with 2tabs norco, oxycodone administered x1 for breakthrough. Plan to return to OR for wou nd closure tomorrow AM. CHG shower completed this evening. Will cont to monitor. Todd Vick RN, 10/04/2013 7:58 PM Brittani Antunez PA - 10/04/2013 12:12 PM PSTFormatting of this note might be different from the o riginal. Progress Notes by Brittani Esparza PA-C at 10/04/13 1212 Author: Esparza, Brittani D, PA-C Service: (none) Author Type: Physician Examination Supervisor Filed: 10/04/13 121 Date of Service: 10/04/131211 Status: Signed Window Shade Estimator: Brittani Esparza PA-C (Physician Examination Supervisor) Neurosurgery Progress Note ID: Rebecca Castillo; 73 y.o. female [facility] Hospital Day # 2 PCP Jesus Mijares Procedure: 1. Lumbar L4-5 re-exploration of fusion 2. Wound vacuum placement Post Operative Day # two Subjective Patient has no complaints and no overnight events. Objective VS: Blood pressure 103/40, temperature 36.8 C (98.2 F), resp. rate 16, height 163 cm ( 5' 4.17"), weight 92.534 kg (204 lb), SpO2 96.00%.Temp (24hrs), Av.6 C (97.8 F), Min :36.2 C (97.2 F), Max:36.8 C (98.2 F) Cardiac Rhythm (monitored Pts.): Normal sinus rhythm I/O: Intake/Output Summary (Last 24 hours) at 10/04/13 121 Last data filed at 10/04/13 0900 Gross per 24 hour Intake 1300 ml Output 0 ml Net 1300 ml General: Patient is awake and in NAD. Neuro: Patient is AO x3, speech is clear and fluent, sensation is intact to light touch and the patient is moving all extremities well. Wound: wound vac intact Labs: Lab results (within last 13 months/9479hours) 10/03/13 0700 WBC 6.1 HGB 10.9* HCT 32.8* PLT 351 NA 139 K 4.9 CL 102 BUN 27 CR 1.03* GLUC 151* Lab results (within last 13 months/80hours) 10/02/13 1540 INR 1.0 PT 10.4 PTT 28.2 No results found for this basename: DPHTOTAL, in the last 9480 hours Assessment This is a 73 y.o. female status post wound vacuum placement for draining wound, now postope rative day two. Plan 1. Mobilize with physical and occupational therapy. 2. Pain management as ordered 3. Dr. Alvarez of Infectious Disease consulted. Appreciate his recommendations 4. Wound vacuum per wound nurse specifications. 5. Bowel regimen as ordered 6. DVT prophylaxis with SCDs and subcutaneous heparin (held for surgery) 7. Plan for removal/change of wound vacuum and possible closure of wound on Saturday with Dr. Degroot. Brittani Esparza PA-C 10/04/2013 12:13 7AM to 7PM reach me via ePantry Messenger, 7PM to 7AM covered via [facility] Barker Operator/Nsg Fellow Gerry Alcala - 10/04/2013 8:52 AM PST Progress Notes by Gerry Degroot MD at 10/04/1352 Author: Gerry Degroot MD Service: (none) Author Type: Physician Filed: 10/04/13 0854 Date of Service: 10/04/13851 Status: Signed Window Shade Estimator: Gerry Degroot MD (Physician) Plastic Surgery Patient admitted Saturday for I&D of back incision, has VAC Discussed with Dr Young Exam_ skin around VAC looks quite uninflamed. Plan--OR tomorrow, explore wound, probably replace VAC for later closure Camryn SAVAGE Lakesha Freeman RN - 10/04/2013 3:32 AM PST Progress Notes by Lakesha Melendez at 10/04/13 033 Author: Lakesha Melendez Service: (none) Author Type: Registered Nurse Filed: 10/04/13 0617 Date of Service: 10/04/13331 Status: Signed Window Shade Estimator: Lakesha Melendez (Registered Nurse) [facility] Progress Note Brief Patient: Rebecca Castillo Alert and oriented overnight. Wound wac patent, draining without issue. Pain controlled wit h norco and one dose of IV dilaudid overnight. Able to ambulate with one staff assistance an d a walker. Will continue to monitor. Lakesha Melendez, 10/04/2013 6:17 AM onversion Transact ion, Provider Unknown - 10/03/2013 8:07 PM PSTFormatting of this note might be different fr om the original. Progress Notes by Todd Vick RN at 10/03/132006 Author: Todd Vick RN Service: (none) Author Type: Registered Nurse Filed: 10/03/132011 Date of Service: 10/03/132006 Status: Signed Window Shade Estimator: Todd Vick RN (Registered Nurse) NS Progress Note Brief Patient: Rebecca Castillo Pt's wound vac remains at 125 continuous suction with serosanguinous drainage. Ambulating w ith SBA and own 4WW. Pain well managed with current regimen. Spoke to Brittani Esparza PA-C re garding orders for wound vac - states to keep at current rate until wound RN to evaluate. Wi ll cont to monitor. Todd Vick RN, 10/03/2013 8:07 PM Rosie Santiago LICSW - 10/03/2013 5:00 PM PST Progress Notes by Rosie Terrazas LICSW at 10/03/131699 Author: Rosie Terrazas LICSW Service: (none) Author Type: Apartment Rental Clerk Filed: 10/03/131708 Date of Service: 10/03/131699 Status: Signed Window Shade Estimator: Rosie Terrazas LICSW (Apartment Rental Clerk) Case Management Discharge Planning Assessment 17:00; 10/03/2013 Patient Rebecca Castillo is a 73 y.o. female admitted for Post Op Seroma Discussion:DIGITAL MEDIA ANALYST review past and current charts and discussed with healthcare team. Patient engaged and alert. Patient report she and her spouse report they live in [place]. Patient re ports they live on [place] acres with many animals. Patient reports their son is helping w ith the "chores" while she is in the hospital. Patient reports her daughter Debbie has been s taying with them and will continue to do so to provide assistance at discharge. Patient rep orts she receives assistance from family with activities of daily living and uses a 4WW for assistance with ambulation. Patient reports her has been staying in a hotel near [facility] as they brought their cat to [place] with them. Patient is a re-admit, patient reports she was re-admitted due to her "incision draining." Patient reports she has a wound vac. Patient reports she has had [facility] in the past and is agreeable to such s ervices in there are recommended again. Patient reports [facility] requested an order for outpatient PT. Patient reports no other needs/concerns at this time, however remains avail able to provide assistance as needed. Discharge Planning Options Discharge Disposition Options: Home Discharge Support Options: HHC Plan: TBD Resources/Education provided: DIGITAL MEDIA ANALYST introduced role and how to access DIGITAL MEDIA ANALYST/CM during hospital visit. Interventions: Case Mgmt Team Interventions: Chart review/screening;Consult with healthcare team;D/C plann ing initial assessment;[place] of choice offered Diagnosis: Post Op Seroma Co-Morbidity/Complications: Past Medical History Diagnosis Date Coronary artery disease High blood pressure A-fib Type II or unspecified type diabetes mellitus without mention of complication, not stat ed as uncontrolled Generalized osteoarthrosis, unspecified site HTN (hypertension) ```````````` Surgery/Procedures: Procedure(s): I&D SPINE THORACIC/LUMBAR /SACRAL Past Surgical History Procedure Laterality Date Appendectomy Tonsillectomy Hysterectomy Ugi endoscopy stent placement Upper GI endoscopy for acid reflux Other gastroenterology esophageal "wrapping" for GERD Abdomen surgery rina Spine surgery procedure unlisted 07/2013, 09/2013 L4-5 exploration of fusion, wound vac placement 09/15/[address] Pena & L4-5 TLIF 08/[address] Pena Advance Directive Information Advance Directive?: None Advance Directive Offered: AD Booklet refused Is this a readmission?: Yes. Patient information related to previous admission: Why do you think you were readmitted?: "My incision was draining." Did you understand your discharge instructions?: Yes Pre-Admit Baseline : Lives with: spouse Receives help from: self and daughter Current Providers/Agencies: none Prior to admit, the patient was: Living at home with others PCP: Per chart review Jesus Mijares Principle Payors: Per chart review Payor: MEDICARE Plan: MEDICARE PART A AND B Product Type: *No Product type* Primary Contact Information: Extended Emergency Contact Information Primary Emergency Contact: Oniel Castillo Address: [address], [place] [address] [facility] [place] Relation: Spouse Secondary Emergency Contact: Debbie Selby [facility] Relation: Daughter Patient is being followed by Case Management Rosie Terrazas, APRIL, LSWAIC onversion Tra nsaction, Provider Unknown - 10/03/2013 2:25 PM PSTFormatting of this note might be differe nt from the original. Progress Notes by Arturo Roberto RD at 10/03/13 9912 Author: Arturo Roberto RD Service: (none) Author Type: Registered Dietitian Filed: 10/03/131426 Date of Service: 10/03/131424 Status: Signed Window Shade Estimator: Arturo Roberto RD (Registered Dietitian) Medical Nutrition Therapy Discussed case with Track Oiler. Boost oral supplement ordered to be sent daily be tween meals (TID). RD will continue to follow pt with team. Arturo Roberto RD, 10/03/2013 2:27 PM onver everett Transaction, Provider Unknown - 10/03/2013 1:57 PM PST Progress Notes by Juanjo Francisco at 10/03/13 8097 Author: Juanjo Francisco Service: (none) Author Type: Track Oiler Filed: 10/03/13 6902 Date of Service: 10/03/13 6147 Status: Addendum Window Shade Estimator: Juanjo Francisco (Track Oiler) Related Notes: Original Note by Juanjo Francisco (Track Oiler) filed at 3 1406 Medical Nutrition Therapy Admit nursing nutrition screen positive for eating poorly and weight loss prior to admissio n. Diet: general BMI: 34.74 (obese) Pt seen and reports poor appetite/po intake since surgery. Was drinking ensure clear. State s UBW 225 lbs, current weight 204 lbs. States she ate good breakfast today. Pt willing to drink s/b boost between meals . RD to order supplement. Encourage to eat good protein and frequent small meals daily. Monitor po trends for adequacy and weight. Juanjo Francisco at 14:05 on 10/03/2013 Brittani Antunez PA - 10/03/2013 1:42 PM PSTFormatting of this note might be different from the o riginal. Progress Notes by Brittani Esparza PA-C at 10/03/13 1342 Author: Brittani Esparza PA-C Service: (none) Author Type: Physician Examination Supervisor Filed: 10/03/13 1279 Date of Service: 10/03/13 1342 Status: Addendum Window Shade Estimator: Brittani Espraza PA-C (Physician Examination Supervisor) Related Notes: Original Note by Brittani Esparza PA-C (Physician Examination Supervisor) filed at 1352 Neurosurgery Progress Note ID: Rebecca Castillo; 73 y.o. female [facility] Attending Yong Pena MD Hospital Day # 1 PCP Jesus Miajres Procedure: 1. Lumbar L4-5 re-exploration of fusion 2. Wound vacuum placement Post Operative Day # one Subjective Patient has no complaints and no overnight events. Objective VS: Blood pressure 140/61, temperature 36.6 C (97.8 F), resp. rate 16, height 163 cm ( 5' 4.17"), weight 92.534 kg (204 lb), SpO2 97.00%.Temp (24hrs), Av.4 C (97.5 F), Min :35.8 C (96.5 F), Max:36.9 C (98.4 F) Cardiac Rhythm (monitored Pts.): Normal sinus rhythm I/O: Intake/Output Summary (Last 24 hours) at 10/03/13 1343 Last data filed at 10/03/13 0207 Gross per 24 hour Intake 740 ml Output 650 ml Net 90 ml General: Patient is awake and in NAD. Neuro: Patient is AO x3, speech is clear and fluent, sensation is intact to light touch and the patient is moving all extremities well. Wound: wound vac intact Labs: Lab results (within last 13 months/80hours) 10/03/13 0700 WBC 6.1 HGB 10.9* HCT 32.8* PLT 351 NA 139 K 4.9 CL 102 BUN 27 CR 1.03* GLUC 151* Lab results (within last 13 months/80hours) 10/02/13 1540 INR 1.0 PT 10.4 PTT 28.2 No results found for this basename: DPHTOTAL, in the last 9480 hours Assessment This is a 73 y.o. female status post wound vacuum placement for draining wound, now postope rative day one. Plan 1. Mobilize with physical and occupational therapy. 2. Pain management as ordered 3. Dr. Alvarez of Infectious Disease consulted. Appreciate his recommendations 4. Wound vacuum per wound nurse specifications. 5. Bowel regimen as ordered 6. DVT prophylaxis with SCDs and subcutaneous heparin 7. Plan for removal of wound vacuum and closure of wound on Saturday. Brittani Esparza PA-C 10/03/2013 13:43 7AM to 7PM reach me via ePantry Messenger, 7PM to 7AM covered via [facility] Barker Operator/[place] Fellow onversion Transacti on, Provider Unknown - 10/03/2013 1:08 PM PSTFormatting of this note might be different fro m the original. Progress Notes by Priscila Prado PT at 10/03/13 1308 Author: Priscila Prado, PT Service: (none) Author Type: Physical Therapist Filed: 10/03/13 5482 Date of Service: 10/03/13 1058 Status: Signed Window Shade Estimator: Priscila Prado PT (Physical Therapist) PHYSICAL THERAPY MED/SURG EVALUATION Duration of Session Time In: 1145 Time Out: 1215 PATIENT PROFILE Diagnosis: Post Op Seroma Surgery/Procedure: Procedure(s) with comments: I&D SPINE THORACIC/LUMBAR /SACRAL - Lumbar wound re-exploration and wash-out. Possible woun d vac placement (Prone on [place]rick, C-arm avail) Pt ate at 0930 Surgery Date: 10/02/13 Precautions: Cleared for OOB: Yes Spinal Surgery Precautions: General spine surgery SOCIAL HISTORY Living Environment: pt lives with in a one story mobile home with 6-8 steps to ente r, with railing available. will be available to assist if needed. Prior Level of Functioning: Pt was admitted to hospital for similar reason a few weeks ago. Pt was discharged from therapy at mod I level. Pt was able to perform BADL's without assist ance. Pt ambulated with 4WW, household ambulation and able to negotiate stairs with SPC. Current Adaptive Equipment: 4WW, SPC, shower chair Patient Comment: I just want to get this done right. I'm going to have my forth surgery in two months! Patient Goal: to get better EXAMINATION Range of Motion: BUE/BLE AROM grossly WFL Strength: all extremities WFL, move against gravity Sensation: intact to light touch in BLE Skin/Edema: hemosiderin noted distal lower legs, wound vac intact Coordination: NT Balance: static sitting = F Static standing = F Cognition: A and O x 4 FUNCTIONAL STATUS ACTIVITY LEVEL OF ASSIST COMMENT Bed Mobility Mod I Supine <> sit via log rolling Transfers Mod I Sit <> stand with 4WW Gait/Mobility Mod I With 4WW, x 100', gait appeared slow, reciprocal pattern, steady overal l with no LOB Stairs Mod I Ascended/descended 4 steps (limited by IV lines) with unilateral HR and SPC in contralateral UE, non reciprocal pattern, pt demo proper sequencing, no LOB noted Today's Treatment: EVAL + education. Pt able to recall spinal precautions. Pt is cleared to be mod I in room and in hallways (short distances) with 4WW once disconnec jodi from all IV lines (except for wound vac). PT instructing pt to continue with progressive walking program during LOS and instructing pt to stay near room for safety. Pt verbalized u nderstanding. ASSESSMENT Pain Assessment during therapy session No pain noted during the therapy session. Impairments/Functional Limitation: Pt is well known to PT as pt has recently been discharg ed from the hospital, and now readmitted for similar reason due to wound drainage. Functiona lly, pt is at baseline at this time. Main limitation is decreased activity tolerance and end urance. Pt will continue to benefit from progressive walking program during LOS to prevent d econditioning. Will defer nursing to supervise walking program. RN notified and verbalized u nderstanding. Discharge recommendation: anticipate home with PLAN OF CARE Frequency: No treatment indicated, Re-consult if indicated PHYSICAL THERAPY GOAL(S) Plan for next visit: No skilled needs at this time, PT to sign off. PT/HONING MACHINE OPERATOR SEMIAUTOMATIC order assistive devices prn Risks and benefits of treatment reviewed with patient/family and they agree with plan of ca re: Yes onver everett Transaction, Provider Unknown - 10/03/2013 8:48 AM PST Progress Notes by Nimisha Allen OT at 10/03/13847 Author: Nimisha Allen OT Service: (none) Author Type: Occupational Therapist Filed: 10/03/13900 Date of Service: 10/03/13847 Status: Signed Window Shade Estimator: Nimisha Allen OT (Occupational Therapist) OCCUPATIONAL THERAPY EVALUATION Duration of Session Time In: 8:20 Time Out: 8:40 PATIENT PROFILE Diagnosis: Post Op Seroma Surgery/Procedure: Procedure(s) with comments: I&D SPINE THORACIC/LUMBAR /SACRAL - Lumbar wound re-exploration and wash-out. Possible woun d vac placement (Prone on Kendrick, C-arm avail) Pt ate at 0930 Surgery Date: 10/02 Precautions: Cleared for OOB: Yes Spinal Surgery Precautions: General spine surgery SOCIAL HISTORY Living Environment: Patient lives with in home with handicap accessible bathroom. Trenton valentine has been staying with patient to assist since exploration of fusion 09/15/13. Prior Level of Functioning: Patient has had decreased activity tolerance since initial spin e surgery 07/2013. Patient reports being independent with BADLs. Patient is able to make a s imple meal, but assists with most IADLs. Current Adaptive Equipment: 4WW, shower chair, SPC Patient Comment: "I don't want to be here again." Patient Goal: home EXAMINATION Cognitive Function Alertness: alert Behavior: pleasant, cooperative, appropriate Orientation: ox4 Safety Awareness/Problem Solving: intact, aware of precautions Verbal/Motor Response to Commands: follows 1-2 step commands Visual/Perceptual: glasses Upper Extremity Function Range of Motion: WFL Motor Control/Tone: functional against gravity Coordination: BUE tremor, patient reports has been present for 3-4 years. Sensation: intact to LT Edema: surgical bandages, wound vac ACTIVITY RESPONSE Position or Activity Supine BP 119/50 HR 50 Sp02 95 FUNCTIONAL STATUS ACTIVITIES OF DAILY LIVING LEVEL OF ASSIST COMMENT Self Feeding Independent Grooming SBA Standing at sink Bathing SBA Dressing-Upper Mod I Dressing-Lower Mod I Toileting SBA Functional Transfers SBA: sit to stand Higher Living Skills Encouraged patient to perform OOB activity, functional mobility in ro om and halls with assist and BUE conditioning to increase activity tolerance with ADLs. Today's Treatment: Eval ASSESSMENT Pain Assessment during therapy session Patient c/o pain 04/22 Location of pain: surgical site Pain therapy interventions used: deep breathing and relaxation Impairments/Functional Limitation: Patient is currently impaired by pain, impaired activit y tolerance and spinal precautions. Patient is aware of spinal precautions from previous darnell jessika and demonstrates good carryover. Patient will benefit from 1 more OT session to issue a nd educate patient on HEP to increase activity tolerance with ADLs and IADLs. Discharge recommendations: Home With follow up out patient PT when medically appropriate. PLAN OF CARE Interventions: HEP for conditioning Frequency: 1 more treatment OCCUPATIONAL THERAPY GOAL(S) By discharge patient will perform the following: Patient to perform BUE AROM HEP for condi tioning safely and independently in sitting and standing Plan for next visit: BUE HEP in sitting and standing for increased activity tolerance with ADLs OT/POLITICAL CARTOONIST order assistive devices prn Risks and benefits of treatment reviewed with patient/family and they agree with plan of ca re: Yes Jana Easton RN - 10/02/2013 10:55 PM PST Progress Notes by Jana Saleh RN at 10/02/132254 Author: Jana Saleh RN Service: (none) Author Type: Registered Nurse Filed: 10/02/13 7016 Date of Service: 10/02/132254 Status: Signed Window Shade Estimator: Jana Saleh RN (Registered Nurse) NSG Arrival Note Patient: Rebecca Castillo Arrival time: 2240 From: PACU to room 525. Belongings verified with the patient: Yes - see flowsheet Last VS: Temp: 36.1 C (97 F), BP: 157/77 mmHg, Heart Rate: 55, Resp: 10, SpO2: 96 %, O 2 Liter Flow (1L or More): 10 L/min. Admission Wt:None Recorded Skin intact: No - wound vac intact PU Prevention Specialty Bed: In use Time of last pain med: In PACU Lines and drains: PIV, wound vac Current IV: normal saline at 100cc/hr Current nursing problems: Incisional pain Patient orientation: to call light to telephone and television to [facility] information to plan for the day Jana Saleh RN, 10/02/2013 10:55 PM Autumn La RN - 10/02/2013 8:08 PM PST Progress Notes by Autumn Croft RN at 10/02/132007 Author: Autumn Croft RN Service: (none) Author Type: Registered Nurse Filed: 10/02/132008 Date of Service: 10/02/132007 Status: Signed Window Shade Estimator: Autumn Croft RN (Registered Nurse) GLENIS Progress Note Brief Patient: Rebecca Castillo To OR at 1830 in satisfactory condition. IV team unable to start IV after 2 attempts. Consent signed. NPO for surgery. Autumn Croft RN, 10/02/2013 8:08 PM Autumn La RN - 10/02/2013 8:07 PM PST Progress Notes by Autumn Croft RN at 10/02/132006 Author: Autumn Croft RN Service: (none) Author Type: Registered Nurse Filed: 10/02/132007 Date of Service: 10/02/132006 Status: Signed Window Shade Estimator: Autumn Croft RN (Registered Nurse) NSG Admission Note Patient: Rebecca Castillo Admission Time and Date: 141 on 10/02/2013 Patient admitted from: Direct admit from Physician's office to room 525east. Patient orientation: to call light to telephone and television to general hospital information to plan for the day Belongings verified with the patient: Yes - see flowsheet Current nursing problems: Drainage from post surgical wound. Autumn Croft RN, 10/02/2013 8:[address] ARN P - 10/02/2013 5:48 PM PST Progress Notes by Manasa Ortega ARNP at 10/02/131747 Author: Manasa Ortega ARNP Service: (none) Author Type: Nurse Practitioner Filed: 10/02/131748 Date of Service: 10/02/131747 Status: Signed Window Shade Estimator: Manasa Ortega ARNP (Nurse Practitioner) NSG Progress Note Brief Patient: Rebecca Castillo Discussed with Dr. Alvarez and he would like patient started on zosyn. Orders written per ord er set. Erica VALVERDE, 10/02/2013 5:48 PM Yong Allred Jr., MD - 10/02/2013 11:32 AM PST Progress Notes by Yong Pena MD at 10/02/131131 Author: Yong Pena MD Service: (none) Author Type: Physician Filed: 10/02/132031 Date of Service: 10/02/131131 Status: Signed Window Shade Estimator: Yong Pena MD (Physician) Yong Pena Jr, MD| Co-Director of Spine Fellowship| [facility] I had an extensive discussion with the patient and family as well as counseling regarding t he risks, benefits and alternatives of surgical intervention and they understand the situati on and would like to proceed. They underwent informed consent about the procedure we are go ing to do and they understand what is involved. They understands that there are no guarantee s for a successful outcome and that there may complications as well as adverse events. The risks of surgery were mentioned along with the indications for surgery. The risks inclu de, but are not limited to bleeding, wound infection, cranial nerve damage, CSF leak, numbne ss weakness, blindness, stroke, coma, even as well as doing the wrong level. Risks of damage to neighboring structures were discussed. The recovery of this type of surgery was al so mentioned. The patient fully understands that there are inherent risks invovled with neurosurgical pro cedures and spine surgery that there are lots of risks involved with surgery including preo perative risk factors associated with their overall medical condition as well as perioperati ve as well as postoperative risks which include stroke, NC, bleeding, anaphylaxis, infection , misplacement of hardware, wrong level, swallowing difficulty, meningitis, seizure, epileps y, visual loss, stroke, laceration of head or other areas of the body, weakness, paralysis, sensory loss, hearing loss, burn [place], bruises, hoarsness, spinal cord injury, paralysis, d eath, hemopneumothorax, impotence, pneumothorax, retrograde ejaculation, vaginal dryness, he teropic bone formation, bowel injury, injury to the great vessels, heterotopic bone formatio n, hardware failure, device failure, retained surgical instruments or devices and the need f or further surgery. The patient understands we can change some portions of the procedure in order to ensure the best possible outcomes. They understand that there are no guarantees with complex neurosurg ical procedures and that there are risks inolved inherent in the procedure. I also went over the different off label uses of instrumentation (devices, implants and homer dware) as well as biological substances (bone morphogenic proteins, demineralized bone matri x) as well as using extra bone from allograft souces (i.e. cadaver bone) or autograft (iliac crest bone, ribs, or the spine itself). They know we can do more levels or less and change some portions of the procedure in order to ensure the best possible outcomes. They understand that there are no guarantees with the complex neurosurgical procedures that we perform and that there are risks inolved inherent in the procedure from positioning, anesthesia, intraoperative problems to postoperative comp lications. Yong Pena Jr, MD| Co-Director of Spine Fellowship| [facility] [address] [place] [address] [address]| [place] [address] pager [phone] | direct [phone]| fax [phone] | [email or web address] This message is confidential, intended only for the named recipient(s) and may contain info rmation that is privileged or exempt from disclosure under applicable law. If you are not t he intended recipient(s), you are notified that the dissemination, distribution or copying o f this information is strictly prohibited. If you received this message in error, please no tify the sender then delete this message. documented in th is encounter Plan of Treatment +--------+ + + + + | Date | Type | Specialty | Care Team | Description | +--------+ + + + + | 11/17/ | Office | Cardiology | Rajendra Fowler, | | | 2019 | Visit | | MD [address] | | | | | | [place], | | | | | | [place] [address] | | | | | | [phone] | | | | | | | [...] | + +--------+ + + + | CULTURE, AEROBIC + | Routin | 10/13/2013 | | Results for this | | ANAEROBIC | e | 2:30 PM | | procedure are in the | | | | PST | | results section. | + +--------+ + + + | CULTURE, AEROBIC + | ALFRED | 10/05/2013 | | Results for this | | ANAEROBIC | | 8:58 AM | | procedure are in the | | | | PST | | results section. | + +--------+ + + + | CULTURE, AEROBIC + | ALFRED | 10/05/2013 | | Results for this | | ANAEROBIC | | 8:58 AM | | procedure are in the | | | | PST | | results section. | + +--------+ + + + | CULTURE, AEROBIC + | Routin | 10/02/2013 | | Results for this | | GRAM STAIN | e | 8:54 PM | | procedure are in the | | | | PST | | results section. | + +--------+ + + + | CULTURE, AEROBIC + | Routin | 10/02/2013 | | Results for this | | GRAM STAIN | e | 8:54 PM | | procedure are in the | | | | PST | | results section. | + +--------+ + + + | CULTURE, MRSA AND | Routin | 10/02/2013 | | Results for this | | MSSA | e | 3:03 PM | | procedure are in the | | | | PST | | results section. | + +--------+ + + + documented in this encounter Results Culture, Aerobic + Anaerobic (10/13/2013 2:30 PM PST) + + | Specimen | + + | | + + + + + | Narrative | Performed At | + + + | [facility] Gram | EXTERNAL LAB | | Stain No polys, no organisms seen | | | Few cells Final | | | Report No growth in liquid media at | | | 5 days | | + + + + +---------+ + + | Performing | Address | City/State/Zipcode | Phone Number | | Organization | | | | + +---------+ + + | EXTERNAL LAB | | | | + +---------+ + + Culture, Aerobic + Anaerobic (10/05/2013 8:58 AM PST) + + | Specimen | + + | | + + + + + | Narrative | Performed At | + + + | [facility] DEEP BACK WOUND | EXTERNAL LAB | | Gram Stain Occ polys | | | No organisms seen Final | | | Report No growth in liquid media at 5 | | | days | | + + + + +---------+ + + | Performing | Address | City/State/Zipcode | Phone Number | | Organization | | | | + +---------+ + + | EXTERNAL LAB | | | | + +---------+ + + Culture, Aerobic + Anaerobic (10/05/2013 8:58 AM PST) + + | Specimen | + + | | + + + + + | Narrative | Performed At | + + + | [facility]OUND | EXTERNAL LAB | | Gram Stain Occ polys | | | No organisms seen Final | | | Report No growth in liquid media at 5 | | | days | | + + + + +---------+ + + | Performing | Address | City/State/Zipcode | Phone Number | | Organization | | | | + +---------+ + + | EXTERNAL LAB | | | | + +---------+ + + Culture, Aerobic + Gram Stain (10/02/2013 8:54 PM PST) + + | Specimen | + + | | + + + + + | Narrative | Performed At | + + + | [facility] LUM[facility] Gram | EXTERNAL LAB | | Stain No polys, no organisms seen | | | Final Report No growth in liquid | | | media at 5 days | | + + + + +---------+ + + | Performing | Address | City/State/Zipcode | Phone Number | | Organization | | | | + +---------+ + + | EXTERNAL LAB | | | | + +---------+ + + Culture, Aerobic + Gram Stain (10/02/2013 8:54 PM PST) + + | Specimen | + + | | + + + + + | Narrative | Performed At | + + + | [facility] Gram | EXTERNAL LAB | | Stain Rare polys | | | Occ squamous epith cells | | | No organisms seen Final | | | Report No growth in liquid media at 5 | | | days | | + + + + +---------+ + + | Performing | Address | City/State/Zipcode | Phone Number | | Organization | | | | + +---------+ + + | EXTERNAL LAB | | | | + +---------+ + + Culture, MRSA and MSSA (10/02/2013 3:03 PM PST) + + | Specimen | + + | | + + + + + | Narrative | Performed At | + + + | [facility] NASAL Final | EXTERNAL LAB | | Report No Magaly aureus isolated | | + + + + +---------+ + + | Performing | Address | City/State/Zipcode | Phone Number | | Organization | | | | + +---------+ + + | EXTERNAL LAB | | | | + +---------+ + + documented in this encounter Visit Diagnoses + + | Diagnosis | + + | S/P lumbar fusion Arthrodesis status | + + documented in this encounter
--- OUTSIDE RECORDS SUMMARY | ~2019-10-18 | XMS | Encounter Summary ---
Demographics + + + | Address | [address] | | | [place] [address] | + + + | Home Phone | | + + + | Preferred Language | Unknown | + + + | Marital Status | | + + + | Congregation Affiliation | 1027 | + + + | Race | Unknown | + + + | Ethnic Group | Unknown | + + + Author + + + | Author | [facility] | | | and [place] | + + + | Organization | [facility] | | | and [...] Team Providers + +------+ + | Care Swatch Paster Name | Role | Phone | + +------+ + | Jesus Mijares MD | PCP | | + +------+ + Encounter Details +--------+ + + + + | Date | Type | Department | Care Team | Description | +--------+ + + + + | 01/05/ | Hospital | [facility] | Conversion | Spinal stenosis, | | 2013 | Encounter | XRAY [address] | Transaction, | lumbar region, with | | | | [place] | Provider Unknown | neurogenic | | | | [address] | [phone] | claudication | | | | [phone] | | | +--------+ + + + [...] | | 2019 | Visit | | [address] | | | | | | [place], | | | | | | [place] [address] | | | | | | [phone] | | | | | | | [...] + + + | XR LUMBAR SPINE 2 OR | Routin | 01/05/2014 | | Results for this | | 3 VW | e | 10:32 AM | | procedure are in the | | | | PDT | | results section. | + +--------+ + + + documented in this encounter Results XR Lumbar Spine 2 or 3 Vw (01/05/2014 10:32 AM PDT) + + | Specimen | + + | | + + + + + | Impressions | Performed At | + + + | 1. No significant change in lumbar curvature convex right as well | | | as right lateral subluxations at L2-3 and L3-4. Thank you for | | | your referral. Please do not hesitate to contact me if you have | | | any questions regarding this study. Reza Zuniga MD | | | Dictated by: REZA ZUNIGA Dictated: 01/05/2014 11:55 AM Job: | | | [id number] | | + + + + + + | Narrative | Performed At | + + + | 125 EXAM: XR LUMBAR SPINE 2-3 VIEWS HISTORY: L4-5 fusion. | | | COMPARISON: 09/15/2013 FINDINGS: Prominent lumbar curvature | | | convex right with right lateral subluxation L3 on L4 and L2 on L3. | | | Posterior and interbody fusion at L4-5. | | + + + + + | Procedure Note | + + | Roberto Murry Conversion - 03/26/2019 9:15 AM PDT 125 | | | | EXAM: XR LUMBAR SPINE 2-3 VIEWS | | | | HISTORY: L4-5 fusion. | | | | COMPARISON: 09/15/2013 | | | | FINDINGS: Prominent lumbar curvature convex right with right lateral | | subluxation L3 on L4 and L2 on L3. Posterior and interbody fusion at | | L4-5. | | | | IMPRESSION: | | | | 1. No significant change in lumbar curvature convex right as well as | | right lateral subluxations at L2-3 and L3-4. | | | | | | Thank you for your referral. Please do not hesitate to contact me if | | you have any questions regarding this study. | | | | Reza Zuniga MD | | | | Dictated by: REZA ZUNIGA | | Dictated: 01/05/2014 11:55 AM | | Job: [id number] | + + documented in this encounter Visit Diagnoses + + | Diagnosis | + + | Spinal stenosis, lumbar region, with neurogenic claudication | + + documented in this encounter"
--- OUTSIDE RECORDS SUMMARY | ~2019-10-18 | XMS | Encounter Summary ---
Demographics + + + | Address | [address] | | | [place] [address] | + + + | Home Phone | | + + + | Preferred Language | Unknown | + + + | Marital Status | | + + + | Methodist Affiliation | 1027 | + + + | Race | Unknown | + + + | Ethnic Group | Unknown | + + + Author + + + | Author | [facility] | | | and [place] | + + + | Organization | [facility] | | [...] Team Providers + +------+ + | Care Spinner Operator Name | Role | Phone | + +------+ + | Jesus Mijares MD | PCP | | + +------+ + Reason for Visit Service/Procedure (Routine) +--------+--------+ + + + + | Status | Reason | Specialty | Diagnoses / | Referred By | Referred To | | | | | Procedures | Contact | Contact | +--------+--------+ + + + + | Closed | | Radiology | Diagnoses | | [facility] | | | | | | [place], | [address] | | | | | Sacroiliitis | Nilson Jensen MD | [place], | | | | | , not | [address] | [place] | | | | | elsewhere | [place] | [address] | | | | | classified | [place], [place] | Phone: | | | | | ([facility]) | [address] | [phone] | | | | | Procedures | Phone: | Fax: | | | | | [place] INJECT SI | [phone] | [phone] | | | | | JOINT | Fax: | | | | | | ARTHRGRPHY&/ | [phone] | | | | | | ANES/STEROID | | | | | | | W/IMAGE [place] | | | | | | | | | | | | | | TRIAMCINOLON | | | | | | | E ACET INJ | | | | | | | NOS, 10 MG | | | | | | | Bilateral SI | | | | | | | Joint appt | | | | | | | 10-6 | | | +--------+--------+ + + + + Encounter Details +--------+ + + + + | Date | Type | Department | Care Team | Description | +--------+ + + + + | 07/19/ | Hospital | [facility] | [place], | SACROILIITIS; | | 2013 | Encounter | MED CTR XRAY [address] | [place] [address] | SCOLIOSIS , | | | | [address] [place] | [facility], | IDIOPATHIC | | | | [place] [address] | [place] [address] | | | | | [phone] | [phone] | | | | | | | | | | | | Press Pipe InspectorJaspal | | +--------+ + + + + [...] this encounter Last Filed Vital Signs + +---------+ + + | Vital Sign | Reading | Time Taken | Comments | + +---------+ + + | Blood Pressure | 155/82 | 07/19/2014 1:28 PM | | | | | PDT | | + +---------+ + + | Pulse | 65 | 07/19/2014 1:28 PM | | | | | PDT | | + +---------+ + + | Temperature | - | - | | + +---------+ + + | Respiratory Rate | - | - | | + +---------+ + + | Oxygen Saturation | - | - | | + +---------+ + + | Inhaled Oxygen | - | - | | | Concentration | | | | + +---------+ + + | Weight | - | - | | + +---------+ + + | Height | - | - | | + +---------+ + + | Body Mass Index | - | - | | + +---------+ + + documented in this encounter Medications at Time of [...] | | | | | | [place] [address] | | | | | | [phone] | | | | | | | | +--------+ + + + + | 12/23/ | Procedure | Cardiology | | | | 2019 | visit | | | | +--------+ + + + + | 06/11/ | Procedure | Cardiology | | | [...] | + +--------+ + + + | FL SACROILIAC | Routin | 07/19/2014 | SACROILIITIS | Results for this | | INJECTION RIGHT | e | 1:13 PM | SCOLIOSIS , | procedure are in the | | | | PDT | IDIOPATHIC | results section. | + +--------+ + + + | FL SACROILIAC | Routin | 07/19/2014 | SACROILIITIS | Results for this | | INJECTION LEFT | e | 1:13 PM | SCOLIOSIS , | procedure are in the | | | | PDT | IDIOPATHIC | results section. | + +--------+ + + + documented in this encounter Results [place] Sacroiliac Injection Left (07/19/2014 1:13 PM PDT) + + | Specimen | + + | | + + + + + | Narrative | Performed At | + + + | 07/19/2014 Bilateral Sacroiliac Joint Injection Clinical History: | [facility] | | Sacroiliitis ICD-9 720.0 Rebecca Chanell Castillo presents to the | [facility] | | fluoroscopy suite for fluoroscopically guided bilateral sacroiliac [facility] | | joint steroid injections as part of conservative management for | - IMAGING | | chronic pain with sacroiliitis. After informed consent was obtained | | | the patient laid in the prone position on the fluoroscopy table. The | | | bilateral sacroiliac joints were identified under fluoroscopic | | | guidance. The areas were prepped and draped in sterile fashion. A 25 | | | gauge 1-1/2 inch needle was inserted into each region and | | | approximately 3 mL of buffered 1% lidocaine was infused. Then a 22 | | | gauge spinal needle was inserted into the inferior joint spaces | | | under fluoroscopic guidance. Confirmation into the sacroiliac joints | | | obtained with infusion of approximately 1 mL of Omnipaque contrast | | | which showed flow within the joint spaces. Then a combination of 2 | | | mL 1% lidocaine and 2 mL of 40 mg per milliliter Kenalog was | | | infused divided between the two sides. The patient tolerated the | | | procedure well without complications. Pre- and post procedure blood | | | pressures were stable. The patient was given verbal as well as | | | written followup instructions. Prior to the start of the | | | procedure the following were performed and verified including | | | correct patient identity, correct site/side marked and visible, | | | agreement of the procedure to be done, correct patient positioning | | | and an accurate procedure consent form. Any safety precautions based | | | on clinical history and/or medications have been addressed. I | | | personally performed the procedure above. Estimated blood loss: | | | Minimal Complications: None Findings: As expected Anesthesia: | | | Local 1% Lidocaine | | + + + + + | Procedure Note | + + | Nilson Chaudhry MD - 07/19/2014 5:29 PM PDT 07/19/2014ilateral Sacroiliac Joint | | InjectionClinical History: Sacroiliitis ICD-9 720.0Rebecca Castillo presents to the | | fluoroscopy suite for fluoroscopically guided bilateral sacroiliac joint steroid | | injections as part of conservative management for chronic pain with sacroiliitis. After | | informed consent was obtained the patient laid in the prone position on the fluoroscopy | | table. The bilateral sacroiliac joints were identified under fluoroscopic guidance. The | | areas were prepped and draped in sterile fashion. A 25 gauge 1-1/2 inch needle was | | inserted into each region and approximately 3 mL of buffered 1% lidocaine was infused. | | Then a 22 gauge spinal needle was inserted into the inferior joint spaces under | | fluoroscopic guidance. Confirmation into the sacroiliac joints obtained with infusion of | | approximately 1 mL of Omnipaque contrast which showed flow within the joint spaces. | | Then a combination of 2 mL 1% lidocaine and 2 mL of 40 mg per milliliter Kenalog was | | infused divided between the two sides. The patient tolerated the procedure well without | | complications. Pre- and post procedure blood pressures were stable. The patient was | | given verbal as well as written followup instructions. Prior to the start of the | | procedure the following were performed and verified including correct patient identity, | | correct site/side marked and visible, agreement of the procedure to be done, correct | | patient positioning and an accurate procedure consent form. Any safety precautions based | | on clinical history and/or medications have been addressed.I personally performed the | | procedure above.Estimated blood loss: MinimalComplications: NoneFindings: As | | expectedAnesthesia: Local 1% Lidocaine | + + + + + + + | Performing | Address | City/State/Zipcode | Phone Number | | Organization | | | | + + + + + | [facility] | [address] | [place] | [phone] | | [facility] | | [address] | | | - IMAGING | | | | + + + + + [place] Sacroiliac Injection Right (07/19/2014 1:13 PM PDT) + + | Specimen | + + | | + + + + + | Narrative | Performed At | + + + | 07/19/2014 Bilateral Sacroiliac Joint Injection Clinical History: | [facility] | | Sacroiliitis ICD-9 720.0 Rebecca Castillo presents to the | [facility] | | fluoroscopy suite for fluoroscopically guided bilateral sacroiliac [facility] | | joint steroid injections as part of conservative management for | - IMAGING | | chronic pain with sacroiliitis. After informed consent was obtained | | | the patient laid in the prone position on the fluoroscopy table. The | | | bilateral sacroiliac joints were identified under fluoroscopic | | | guidance. The areas were prepped and draped in sterile fashion. A 25 | | | gauge 1-1/2 inch needle was inserted into each region and | | | approximately 3 mL of buffered 1% lidocaine was infused. Then a 22 | | | gauge spinal needle was inserted into the inferior joint spaces | | | under fluoroscopic guidance. Confirmation into the sacroiliac joints | | | obtained with infusion of approximately 1 mL of Omnipaque contrast | | | which showed flow within the joint spaces. Then a combination of 2 | | | mL 1% lidocaine and 2 mL of 40 mg per milliliter Kenalog was | | | infused divided between the two sides. The patient tolerated the | | | procedure well without complications. Pre- and post procedure blood | | | pressures were stable. The patient was given verbal as well as | | | written followup instructions. Prior to the start of the | | | procedure the following were performed and verified including | | | correct patient identity, correct site/side marked and visible, | | | agreement of the procedure to be done, correct patient positioning | | | and an accurate procedure consent form. Any safety precautions based | | | on clinical history and/or medications have been addressed. I | | | personally performed the procedure above. Estimated blood loss: | | | Minimal Complications: None Findings: As expected Anesthesia: | | | Local 1% Lidocaine | | + + + + + | Procedure Note | + + | Nilson Chaudhry MD - 07/19/2014 5:30 PM PDT 07/19/2014ilateral Sacroiliac Joint | | InjectionClinical History: Sacroiliitis ICD-9 720.0Rebecca Castillo presents to the | | fluoroscopy suite for fluoroscopically guided bilateral sacroiliac joint steroid | | injections as part of conservative management for chronic pain with sacroiliitis. After | | informed consent was obtained the patient laid in the prone position on the fluoroscopy | | table. The bilateral sacroiliac joints were identified under fluoroscopic guidance. The | | areas were prepped and draped in sterile fashion. A 25 gauge 1-1/2 inch needle was | | inserted into each region and approximately 3 mL of buffered 1% lidocaine was infused. | | Then a 22 gauge spinal needle was inserted into the inferior joint spaces under | | fluoroscopic guidance. Confirmation into the sacroiliac joints obtained with infusion of | | approximately 1 mL of Omnipaque contrast which showed flow within the joint spaces. | | Then a combination of 2 mL 1% lidocaine and 2 mL of 40 mg per milliliter Kenalog was | | infused divided between the two sides. The patient tolerated the procedure well without | | complications. Pre- and post procedure blood pressures were stable. The patient was | | given verbal as well as written followup instructions. Prior to the start of the | | procedure the following were performed and verified including correct patient identity, | | correct site/side marked and visible, agreement of the procedure to be done, correct | | patient positioning and an accurate procedure consent form. Any safety precautions based | | on clinical history and/or medications have been addressed.I personally performed the | | procedure above.Estimated blood loss: MinimalComplications: NoneFindings: As | | expectedAnesthesia: Local 1% Lidocaine | + + + + + + + | Performing | Address | City/State[facility] | Phone Number | | Organization | | | | + + + + + | [facility] | [address] | [place] | [phone] | | [facility] | | [address] | | | - IMAGING | | | | + + + + + documented in this encounter Visit Diagnoses + + | Diagnosis | + + | SACROILIITIS Sacroiliitis, not elsewhere classified | + + | SCOLIOSIS , IDIOPATHIC Scoliosis (and kyphoscoliosis), idiopathic | + + documented in this encounter Administered Medications + +--------+ +-------+------+------+ | Medication Order | MAR | Action | Dose | Rate | Site | | | Action | Date | | | | + +--------+ +-------+------+------+ | iohexol (OMNIPAQUE 300) 300 | Given | 07/19/20 | 3 mLs | | | | mg/mL injection 3 mL 3 mL, | | 14 1:30 | | | | | INTRATHECAL, ONCE, 07/19/14 at | | PM PDT | | | | | 1330, For 1 dose | | | | | | + +--------+ +-------+------+------+ +---+---+ | | | +---+---+ + +-------+ +-------+---+ + | lidocaine 1% injection 5 mL 5 | Given | 07/19/20 | 5 mLs | | Other | | mL, Intradermal, ONCE, Mon | | 14 1:30 | | | (Comment | | 07/19/14 at 1330, For 1 dose | | PM PDT | | | ) | + +-------+ +-------+---+ + +---+---+ | | | +---+---+ + +-------+ +-------+---+---+ | sodium bicarbonate (NEUT) 4% | Given | 07/19/20 | 2 mLs | | | | injection 2 mL 2 mL, Topical, | | 14 1:30 | | | | | ONCE, 07/19/14 at 1330, For 1 | | PM PDT | | | | | dose | | | | | | + +-------+ +-------+---+---+ +---+---+ | | | +---+---+ + +-------+ +-------+---+---+ | triamcinolone acetonide | Given | 07/19/20 | 40 mg | | | | (KENALOG-40) 40 mg/mL injection | | 14 1:30 | | | | | 40 mg 40 mg, Intra-articular, | | PM PDT | | | | | ONCE, 07/19/14 at 1330, For 1 | | | | | | | dose, Shake well. Not for IV | | | | | | | use., | | | | | | + +-------+ +-------+---+---+ +---+---+ | | | +---+---+ documented in this encounter"
--- OUTSIDE RECORDS SUMMARY | ~2019-10-18 | XMS | Encounter Summary ---
Demographics + + + | Address | [address] | | | [place] [address] | + + + | Home Phone | | + + + | Preferred Language | Unknown | + + + | Marital Status | | + + + | Mu-Ism Affiliation | 1027 | + + + | Race | Unknown | + + + | Ethnic Group | Unknown | + + + Author + + + | Author | [facility] | | | and [place] | + + + | Organization | [facility] | | | and [...] Team Providers + +------+ + | Care Metal Gauge Maker Name | Role | Phone | + +------+ + | Jesus Mijares MD | PCP | | + +------+ + Encounter Details +--------+ + + + + | Date | Type | Department | Care Team | Description | +--------+ + + + + | 12/05/ | Orders Only | [facility] | Veto Neri, | | | 2018 | | NEPHROLOGY [place] | [facility] [address] | | | | [address] | [address] | | | | | [address] [place], [place] | [place], [place] | | | | | [address] | [address] | | | | | [phone] | | | | | | | [...] | | | | | | [place] [address] | | | | | | [phone] | | | | | | | [...] | EXTERNAL LAB: CBC | Routin | 12/05/2018 | | Results for this | | | e | 12:30 PM | | procedure are in the | | | | PST | | results section. | + +--------+ + + + | PROTEIN/CREATININE | Routin | 12/05/2018 | | Results for this | | RATIO, URINE | e | 12:30 PM | | procedure are in the | | | | PST | | results section. | + +--------+ + + + | PARATHYROID HORMONE, | Routin | 12/05/2018 | | Results for this | | INTACT | e | 12:30 PM | | procedure are in the | | | | PST | | results section. | + +--------+ + + + | MAGNESIUM | Routin | 12/05/2018 | | Results for this | | | e | 12:30 PM | | procedure are in the | | | | PST | | results section. | + +--------+ + + + | RENAL FUNCTION PANEL | Routin | 12/05/2018 | | Results for this | | | e | 12:30 PM | | procedure are in the | | | | PST | | results section. | + +--------+ + + + documented in this encounter Results Protein/Creatinine Ratio, Urine (12/05/2018 12:30 PM PST) + +-------+ + + + | Component | Value | Ref Range | Performed | Pathologist | | | | | At | Signature | + +-------+ + + + | Protein/Cre | 141.7 | 0 - 150 | EXTERNAL | | | at Ratio [...] + +---------+ + + External Lab: CBC (12/05/2018 12:30 PM PST) + + + + + + | Component | Value | Ref Range | Performed | Pathologist | | | | | At | Signature | + + + + + + | WBC | 8.6 | 4.5 - 11.0 10 | EXTERNAL | | | | | | LAB | | + + + + + + | RED CELL | 4.47 | 3.8 - 5.1 10 | EXTERNAL | | | COUNT | | | LAB | | + + + + + + | Hgb | 14.2 | 12.0 - 16.0 | EXTERNAL | | | | | g/dL | LAB | | + + + + + + | Hematocrit, | 41.8 | 35 - 45 % | EXTERNAL | | | POC | | | LAB | | + + + + + + | MCV | 93.6 | 81 - 99 fL | EXTERNAL | | | | | | LAB | | + + + + + + | MCH | 32 | 27 - 33 pg | EXTERNAL | | | | | | LAB | | + + + + + + | MCHC | 34 | 30 - 36 g/dL | EXTERNAL | | | | | | LAB | | + + + + + + | Platelet | 271 | 140 - 440 K/ L | EXTERNAL | | | Count | | | LAB | | | Plasma | | | | | + + + + + + | RDW-CV | 13.2 | 10.5 - 15.0 % | EXTERNAL | | | | | | LAB | | + + + + + + | MPV | | fL | EXTERNAL | | | | | | LAB | | + + + + + + | Differentia | | | EXTERNAL | | | l Type | | | LAB | | + + + + + + | % Segmented | 69.3 | 39 - 80 % | EXTERNAL | | | | | | LAB | | | Neutrophils | | | | | + + + + + + | % | 21.0 (A) | 24 - 44 % | EXTERNAL | | | Lymphocytes | | | LAB | | + + + + + + | % Monocytes | 7.7 | 0 - 12 % | EXTERNAL | | | | | | LAB | | + + + + + + | % | 1.2 | 0 - 6 % | EXTERNAL | | | Eosinophils | | | LAB | | + + + + + + | % Basophils | 0.8 | 0 - 2 % | EXTERNAL | | | | | | LAB | | + + + + + + | Absolute | | / L | EXTERNAL | | | Segmented | | | LAB | | | Neutrophils | | | | | + + + + + + | Absolute | | / L | EXTERNAL | | | Lymphocytes | | | LAB | | + + + + + + | Absolute | | / L | EXTERNAL | | | Monocytes | | | LAB | | + + + + + + | Absolute | | / L | EXTERNAL | | | Eosinophils | | | LAB | | + + + + + + | Absolute | | [...] | | | + +---------+ + + Parathyroid Hormone, Intact (12/05/2018 12:30 PM PST) + +-------+ + + + | Component | Value | Ref Range | Performed | Pathologist | | | | | At | Signature | + +-------+ + + + | PTH INTACT | 58.35 | 15 - 65 pg/mL | EXTERNAL | | | | | [...] | | + +---------+ + + Magnesium (12/05/2018 12:30 PM PST) + +-------+ + + + | Component | Value | Ref Range | Performed | Pathologist | | | | | At | Signature | + +-------+ + + + | Magnesium | 1.7 | 1.7 - 2.5 mg/dL | EXTERNAL [...] + +---------+ + + Renal Function Panel (12/05/2018 12:30 PM PST) + +---------+ + + + | Component | Value | Ref Range | Performed | Pathologist | | | | | At | Signature | + +---------+ + + + | Glucose, | 117 (A) | 70 - 100 mg/dL | EXTERNAL | | | Fasting | | | LAB | | + +---------+ + + + | BUN | 19 | 6 - 23 mg/dL | EXTERNAL | | | | | | LAB | | + +---------+ + + + | Creatinine | 0.87 | 0.70 - 1.18 | EXTERNAL | | | | | mg/dL | LAB | | + +---------+ + + + | PHOSPHORUS | 4.1 | 2.5 - 5.0 mg/dL | EXTERNAL | | | | | | LAB | | + +---------+ + + + | Albumin | 4.0 | 3.5 - 5.0 | EXTERNAL | | | | | | LAB | | + +---------+ + + + | Na | 143 | 132 - 143 | EXTERNAL | | | | | mmol/L | LAB | | + +---------+ + + + | K | 4.2 | 3.6 - 5.1 | EXTERNAL | | | | | mmol/L | LAB | | + +---------+ + + + | Cl | 98 | 95 - 112 mmol/L | EXTERNAL | | | | | | LAB | | + +---------+ + + + | CO2 | 30 | 19 - 31 mmol/L | EXTERNAL | | | | | | LAB | | + +---------+ + + + | Anion Gap | 19.2 | 7 - 21 mmol/L | EXTERNAL | | | | | | LAB | | + +---------+ + + + | eGFR if not | | | EXTERNAL | | | | | | LAB | | | [place]RA[place]I | | | | | + +---------+ + + + | Phosphorus, | | | EXTERNAL | | | Inorganic | | | LAB | | + +---------+ + + + | BUN/Creatin | 21.8 | 6.0 - 28.6 | EXTERNAL | | | ine Ratio | | | LAB | | + +---------+ + + + | Calcium | 9.9 | 8.5 - 10.3 | EXTERNAL | | | | | mg/dL | LAB | | + +---------+ + + + | Estimated | 63 | 60 - 140 mg/dL | EXTERNAL | | | GFR [...]
--- OUTSIDE RECORDS SUMMARY | ~2019-10-18 | XMS | Encounter Summary ---
Demographics + + + | Address | [address] | | | [place] [address] | + + + | Home Phone | | + + + | Preferred Language | Unknown | + + + | Marital Status | | + + + | Mormon Affiliation | 1027 | + + + | Race | Unknown | + + + | Ethnic Group | Unknown | + + + Author + + + | Author | [facility] | | | and [place] | + + + | Organization | [facility] | | [...] Team Providers + +------+ + | Care Store Operations Manager Name | Role | Phone | + +------+ + | Jesus Mijares MD | PCP | | + +------+ + Reason for Referral Diagnostic/Screening (Routine) +--------+--------+ + + + + | Status | Reason | Specialty | Diagnoses / | Referred By | Referred To | | | | | Procedures | Contact | Contact | +--------+--------+ + + + + | Closed | | Radiology | Diagnoses | | [facility] | | | | | | [place], | [address] | | | | | Trochanteric | Sheryl, | [place], | | | | | bursitis of | PA-C [address] | [place] | | | | | both hips | [address] | [address] | | | | | Procedures | [place] | Phone: | | | | | [place] Asp Inj | [address] | [phone] | | | | | Major Joint | Phone: | Fax: | | | | | Right CHG | [phone] | [phone] | | | | | FLUOROSCOPIC | Fax: | | | | | | GUIDANCE | [phone] | | | | | | NEEDLE | | | | | | | PLACEMENT | | | | | | | ADD ON AL | | | | | | | ARTHROCENTES | | | | | | | IS | | | | | | | ASPIR&/INJ | | | | | | | MAJOR | | | | | | | JT/MADI W/O | | | | | | | US | | | +--------+--------+ + + + + Reason for Visit + + + | Reason | Comments | + + + | Back Pain | low back pain radiating into bilateral legs | + + + Encounter Details +--------+---------+ + + + | Date | Type | Department | Care Team | Description | +--------+---------+ + + + | 11/06/ | Office | [facility] | [place], | Lumbar radiculopathy | | 2018 | Visit | PHYSIATRY [address] | [place] Saucedo [address] | (Primary Dx); | | | | [place], | [address] [place], | DEGENERATIVE DISC | | | | [place] [address] | [place] [address] | DISEASE, LUMBAR | | | | [phone] | [phone] | SPINE; Spinal | | | | | | stenosis of lumbar | | | | | | region without | | | | | | neurogenic | | | | | | claudication; | | | | | | Trochanteric | | | | | | bursitis of both | | | | | | hips; Sacroiliitis, | | | | | | not elsewhere | | | | | | classified (HCC); | | | | | | Chronic right | | | | | | shoulder pain | +--------+---------+ + + + Social History [...] + + + | Blood Pressure | 92/54 | 11/06/2017 11:27 AM | | | | | PST | | + + + + + | Pulse | 81 | 11/06/2017 11:27 AM | | | | | PST | | + + + + + [...] Weight | 88.5 kg (195 lb) | 11/06/2017 11:27 AM | | | | | PST | | + + + + + | Height | 162.6 cm (5' 4") | 11/06/2017 11:27 AM | | | | | PST | | + + + + + | Body Mass Index | 33.47 | 11/06/2017 11:27 AM | | | | | PST | | + + + + + documented in this encounter Patient Instructions Patient Instructions Sheryl Alvarado PA-C - 11/06/2017 11:20 AM PST1) Right shoulder p ain - get xray before you see Dr. Tejada for the shot 2) epidural injection with Dr. Tejada Follow-up at the hospital thirty minutes before your scheduled procedure to allow for time to check in. You may eat and drink as usual on the day of the procedure. If you are scheduled for an epidural injection do not take any blood thinning medications f or at least 5-7 days prior to your procedure unless you have been instructed by another phys ician not to discontinue blood thinning medications. If you are having a procedure other than an epidural injection (i.e. facet injection, media l branch block, SI joint injection or other joint injection) it is not absolutely necessary to discontinue blood thinning medications but doing so will decrease the risk of bruising or bleeding. If you have had a prior stroke, DVT or PE or if you are taking blood thinning medication be cause you have atrial fibrillation, a prosthetic cardiac valve replacement or heart stenting do not stop taking your blood thinning medications unless you have permission from your car diologist or primary care provider. All other medications should be taken as usual on the day of the procedure. Common blood thinning medications include: Aspirin (a baby aspirin is o.k.) Ibuprofen (Advil or Motrin) Naproxen (Aleve) Nabumetone (Relafen) Clopidogrel (Plavix) Dipyridamole/ASA (Aggrenox) Warfarin (Coumadin) Dabigatran (Pradaxa) Rivaroxaban (Xarelto) There are many others. If you have questions about your medications and whether or not you should stop any medications please contact our office. If you are having an epidural injection or if you take any medication for relaxation/sedati on on the day of the procedure you must provide a mechanic driver to take you home. For all procedur es it is recommended that someone else drive you home. documented in this encounter Progress Notes Sheryl Alvarado PA-C - 11/06/2017 11:20 AM PSTFormatting of this note might be differe nt from the original. CHIEF COMPLAINT: Chief Complaint Patient presents with Back Pain low back pain radiating into bilateral legs HISTORY OF PRESENT ILLNESS: The patient is a 77 y.o. female being seen today in follow-up for complaints of low back pa in. The patient has been seen for this complaint in the past, with initial visit started b y Dr. Chaudhry. Previously it was recommended that she receive bilateral L4/L5 epidural i njection for spinal stenosis along with a right greater trochanteric bursa injection. She l ast received this last 08/05/2017. She reports having had 60% relief for 3 months, her symp toms recently worsened. She describes the pain as constant dull with occasional sharpness depending on movement. H er symptoms worsen with standing and walking and laying on her sides at night. Her symptoms improve with rest, sitting down. She tried making soup and had a hard time standing for l kiera periods in her kitchen. The patient does describe numbness of the [...] in [address] Yong Pena in [place], use of hydrocodone 3 x/day and flexeril, prior L4/L5 epidural injections, prior SI injections. She has a new complaint of right shoulder pain and decreased ROM. She reports beginning of August receiving a flu shot from her PCP. She reports increased right shoulder pain and d ecreased ROM. She is right handed. She cannot raise her shoulder up to brush her hair, to reach for things or eat with a fork due to increased pain. She denied any numbness/tingling /radicular symptoms into the arm. The hydrocodone improved this pain. Patient's medications, allergies, past medical, surgical, social and family histories were reviewed and updated as appropriate. CURRENT MEDICATIONS: Current Outpatient Prescriptions Medication Sig Dispense Refill acetaminophen (TYLENOL) 500 mg tablet Take 500 mg by mouth every 6 hours as needed for Pain. allopurinol (ZYLOPRIM) 100 mg tablet Take 100 mg by mouth Daily. amitriptyline (ELAVIL) 25 mg tablet Take 25 mg by mouth nightly. (Patient taking differ ently: Take 10 mg by mouth nightly.) atorvaSTATin (LIPITOR) 20 mg tablet Take 20 mg by mouth. baclofen (LIORESAL) 20 mg tablet cloNIDine (CATAPRES) 0.1 mg tablet Take 0.1 mg by mouth 3 times daily. cyclobenzaprine (FLEXERIL) 10 mg tablet Take 10 mg by mouth. digoxin (LANOXIN) 50 mcg/mL solution Take 0.25 mg by mouth. HYDROcodone-acetaminophen (NORCO) 10-325 mg per tablet Take 1 tablet by mouth 5 times d aily. losartan (COZAAR) 25 mg tablet Take 25 mg by mouth. sotalol (BETAPACE) 80 mg tablet Take 80 mg by mouth 2 times daily. torsemide (DEMADEX) 20 mg tablet Take 20 mg by mouth 3 times daily. traZODone (DESYREL) 50 mg tablet Take 50 mg by mouth nightly. warfarin (COUMADIN) 4 MG tablet Take 4 mg by mouth Daily. 4mg daily No current facility-administered medications for this visit. [...] HEMATOLOGIC/LYMPHATIC: No abnormal bleeding PHYSICAL EXAMINATION: Vitals: 11/06/17 1127 BP: 92/54 Pulse: 81 PainSc: 7 PainLoc: Back GENERAL: The patient is well developed and [...] edema 2+ pitting. ABDOMEN: The patient is not obese. NEUROLOGIC: The patient is awake, alert, and oriented to time, place, person. She follows simple and complex commands. Her speech is fluent. She comprehends speech well. 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 She has appropriate fund of knowledge [...] spine was unremarkable. Spurling sign was negative. Shoulder examination shows limited ROM of the right shoulder with abduction, internal and e xternal rotation. Impingement testing was Positive. There was tenderness over the right bi cipital groove and right AC joint. Speed's test was Negative. Empty can test was Positive f or pain and weakness on the right. Strength testing, including strength testing of the in fraspinatus, supraspinatus and subscapularis, in bilateral upper extremities showed 5/5 on t he left and 3+/5 strength on the right with weakness to the supraspinatus and subscapularis. RADIOGRAPHIC REVIEW: MRI was reviewed with the patient, the most recent MRI shows lumbar spinal stenosis at the L3/L4 level which is above the level of fusion, she has lumbar scoliosis, multi-level forami nal stenosis and multi-level facet arthritis. ASSESSMENT: 1. Lumbar radiculopathy 2. DEGENERATIVE DISC DISEASE, LUMBAR SPINE 3. Spinal stenosis of lumbar region without neurogenic claudication 4. Trochanteric bursitis of both hips 5. Sacroiliitis, not elsewhere classified (HCC) PLAN: 1. 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 Unfortunately she cont inues to have significant discomfort. It appears to me that the pain is primarily coming fr om the central spinal stenosis at L3/L4. I did feel that she would be a good candidate for interventional procedures as the last epidural injection greatly helped. I offered bilatera l L4/L5 epidural injections with a bilateral trochanteric bursa injection to be done later. She is on Warfarin and will have to follow anti-coagulation protocol. We discussed with polina de la cruz four locations, less steroid will be used among the four locations. 2. Medications have been reviewed at today's visit with no changes made at this time. 3. The patient will follow up in three months from today for another same day injection. 4. Right shoulder pain - decreased ROM, start with plain xray, possible OA, might benefit from subacromial steroid injection or intra-articular steroid injection depending on what xr ay shows, or a right shoulder MRI. ELECTRONICALLY SIGNED BY: Sheryl Alvarado PA-C, 11/06/2017 documented in this encounter Plan of Treatment [...] | | | | | | [place] [id number] | | | | | | [phone] | | | | | | | [...] documented as of this encounter Results [place] Asp Inj Major Joint Right (11/06/2017 1:22 PM PST) + + | Specimen | + + | | + + + + -+ | Narrative | Performed At | + + -+ | 11/06/2017 | [facility] | | Bilateral Transforaminal Epidural Steroid Injections and Right | | | Trochanteric Bursa Injection Diagnosis: Lumbar radiculopathy and | | | Trochanteric Bursitis Rebecca Castillo presents to the fluoroscopy | | | suite for fluoroscopically-guided bilateral L4-L5 transforaminal | | | epidural steroid injections as part of conservative management for | | | chronic pain with lumbar radiculopathy and degenerative disk disease. | | | After informed consent was obtained, the patient lay in the prone | | | position on the fluoroscopy table. The areas were identified under | | | fluoroscopic guidance. The areas were prepped and draped in sterile | | | fashion. A 25-gauge, 1.5-inch needle was inserted into each region and | | | approximately 3 mL of buffered 1% lidocaine was infused. Then, a | | | 22-gauge spinal needle was inserted into the posterior superior | | | transforaminal space bilaterally and advanced into the epidural space | | | under fluoroscopic guidance. Confirmation into the epidural space was | | | obtained with infusion of approximately 1 mL of Omnipaque contrast | | | which showed epidural flow as well as nerve sheath flow. Then, a | | | combination of 2 mL of 1% lidocaine and 1.0 mL of 10 mg/mL | | | dexamethasone was infused, divided between the two sides. A right | | | trochanteric bursa injection was also performed with fluoroscopic | | | guidance. The area for the injection was located by palpation and | | | fluoroscopic guidance then marked over the lateral hip. The area was | | | then sterilized with chlorhexidine scrub before inserting a 1-1/2 | | | inch 27-gauge needle into the region to administer approximately 2 mL | | | of buffered 1% lidocaine for local anesthesia. Then a 22 gauge spinal | | | needle was advanced down to the greater trochanter under fluoroscopic | | | guidance. Next, a small amount of contrast was then infused to | | | insure that there was no vascular uptake. A total volume of 5 mL | | | including 1 mL of triamcinolone ( 40 milligrams per mL) and 4 mL of 1% | | | lidocaine was then infused. The needle was removed and the area was | | | cleaned and bandaged. The patient tolerated the procedures well | | | without complications. Pre- and post-procedure blood pressures were | | | stable. The patient was given verbal as well as written follow-up | | | instructions. Prior to the start of the procedure, the following were | | | performed and/or verified, including correct patient identity, | | | correct site/side marked and visible, agreement on the procedure to be | | | done, correct patient positioning and an accurate procedure consent | | | form. Any safety precautions based on clinical history and/or | | | medication use have been addressed. I personally performed the | | | procedure above. Estimated blood loss: MinimalComplications: | | | NoneFindings: As expectedAnesthesia: Local 1% Lidocaine | | |visible, agreement on the procedure to be done, correct patient | | |positioning and an accurate procedure consent form. Any safety precautions | | |based on clinical history and/or medication use have been addressed. I | | |personally performed the procedure above. | | | | | |Estimated blood loss: Minimal | | |Complications: None | | |Findings: As expected | | |Anesthesia: Local 1% Lidocaine | | + + -+ + +---------+ + + | Performing | Address | City/State/Zipcode | Phone Number | | Organization | | | | + +---------+ + + | [facility] | | | | + +---------+ + + [place] [facility] Lumbar Transforaminal (11/06/2017 1:22 PM PST) + + | Specimen | + + | | + + + + -+ | Narrative | Performed At | + + -+ | 11/06/2017 | [facility] | | Bilateral Transforaminal Epidural Steroid Injections and Right | | | Trochanteric Bursa Injection Diagnosis: Lumbar radiculopathy and | | | Trochanteric Bursitis Rebecca Castillo presents to the fluoroscopy | | | suite for fluoroscopically-guided bilateral L4-L5 transforaminal | | | epidural steroid injections as part of conservative management for | | | chronic pain with lumbar radiculopathy and degenerative disk disease. | | | After informed consent was obtained, the patient lay in the prone | | | position on the fluoroscopy table. The areas were identified under | | | fluoroscopic guidance. The areas were prepped and draped in sterile | | | fashion. A 25-gauge, 1.5-inch needle was inserted into each region and | | | approximately 3 mL of buffered 1% lidocaine was infused. Then, a | | | 22-gauge spinal needle was inserted into the posterior superior | | | transforaminal space bilaterally and advanced into the epidural space | | | under fluoroscopic guidance. Confirmation into the epidural space was | | | obtained with infusion of approximately 1 mL of Omnipaque contrast | | | which showed epidural flow as well as nerve sheath flow. Then, a | | | combination of 2 mL of 1% lidocaine and 1.0 mL of 10 mg/mL | | | dexamethasone was infused, divided between the two sides. A right | | | trochanteric bursa injection was also performed with fluoroscopic | | | guidance. The area for the injection was located by palpation and | | | fluoroscopic guidance then marked over the lateral hip. The area was | | | then sterilized with chlorhexidine scrub before inserting a 1-1/2 | | | inch 27-gauge needle into the region to administer approximately 2 mL | | | of buffered 1% lidocaine for local anesthesia. Then a 22 gauge spinal | | | needle was advanced down to the greater trochanter under fluoroscopic | | | guidance. Next, a small amount of contrast was then infused to | | | insure that there was no vascular uptake. A total volume of 5 mL | | | including 1 mL of triamcinolone ( 40 milligrams per mL) and 4 mL of 1% | | | lidocaine was then infused. The needle was removed and the area was | | | cleaned and bandaged. The patient tolerated the procedures well | | | without complications. Pre- and post-procedure blood pressures were | | | stable. The patient was given verbal as well as written follow-up | | | instructions. Prior to the start of the procedure, the following were | | | performed and/or verified, including correct patient identity, | | | correct site/side marked and visible, agreement on the procedure to be | | | done, correct patient positioning and an accurate procedure consent | | | form. Any safety precautions based on clinical history and/or | | | medication use have been addressed. I personally performed the | | | procedure above. Estimated blood loss: MinimalComplications: | | | NoneFindings: As expectedAnesthesia: Local 1% Lidocaine | | |visible, agreement on the procedure to be done, correct patient | | |positioning and an accurate procedure consent form. Any safety precautions | | |based on clinical history and/or medication use have been addressed. I | | |personally performed the procedure above. | | | | | |Estimated blood loss: Minimal | | |Complications: None | | |Findings: As expected | | |Anesthesia: Local 1% Lidocaine | | + + -+ + +---------+ + + | Performing | Address | City/State/Zipcode | Phone Number | | Organization | | | | + +---------+ + + | [facility] | | | | + +---------+ + + XR Shoulder Right 2 + Vw (11/06/2017 [...] + | Diagnosis | + + | Lumbar radiculopathy - Primary Thoracic or lumbosacral neuritis or radiculitis, | | unspecified | + + | DEGENERATIVE DISC DISEASE, LUMBAR SPINE Degeneration of lumbar or lumbosacral | | intervertebral disc | + + | Spinal stenosis of lumbar region without neurogenic claudication Spinal stenosis, | | lumbar region, without neurogenic claudication | + + | Trochanteric bursitis of both hips Enthesopathy of hip region | + + | Sacroiliitis, not elsewhere classified (HCC) Sacroiliitis, not elsewhere classified | + + | Chronic right shoulder [...]
--- OUTSIDE RECORDS SUMMARY | ~2019-10-18 | XMS | Encounter Summary ---
Demographics + + + | Address | [address] | | | [place] [address] | + + + | Home Phone | | + + + | Preferred Language | Unknown | + + + | Marital Status | | + + + | Sabianism Affiliation | 1027 | + + + | Race | Unknown | + + + | Ethnic Group | Unknown | + + + Author + + + | Author | [facility] | | | and [place] | + + + | Organization | [facility] | | | and [...] Team Providers + +------+ + | Care Site Safety Representative Name | Role | Phone | + [...] | Radiology | Diagnoses | | [address] | | | | | Acute pain | [place], | [address] | | | | | of right | Nilson Jensen MD | [place], | | | | | shoulder | [address] | [place] [address] | | | | | Procedures | [place] | Phone: | | | | | CT | [place], [place] | [phone] | | | | | Arthrogram | [address] | Fax: | | | | | Shoulder | Phone: | [phone] | | | | | Right | [phone] | | | | | | Called 1x | Fax: | | | | | | | [phone] | | +--------+--------+ + + + + Reason for Visit Diagnostic/Screening (Routine) +--------+--------+ + + + + | Status | Reason | Specialty | Diagnoses / | Referred By | Referred To | | | | | Procedures | Contact | Contact | +--------+--------+ + + + + | Closed | | Radiology | Diagnoses | | [address] | | | | | Acute pain | [place], | [place] | | | | | of right | Nilson Jensen MD | [place], | | | | | shoulder | [address] | [place] [address] | | | | | Procedures | [place] | Phone: | | | | | CT | [place], [place] | [phone] | | | | | Arthrogram | [address] | Fax: | | | | | Shoulder | Phone: | [phone] | | | | | Right | [phone] | | | | | | Called 1x | Fax: | | | | | | | [phone] | | +--------+--------+ + + + + Encounter Details +--------+ + + + + | Date | Type | Department | Care Team | Description | +--------+ + + + + | 12/03/ | Hospital | [facility] | Nilson Chaudhry | Acute pain of right | | 2018 | Encounter | [facility] [address] Naida Jensen MD [address] | shoulder | | | | [place], | [place], [place] | | | | | [place] [address] | [address] | | | | | [phone] | | | +--------+ + + + [...] | | | | | | [place], | | | | | | [place] [address] | | | | | | [phone] | | | | | | | [...] | + +--------+ + + + | CT ARTHROGRAM | Routin | 12/03/2017 | Acute pain of | Results for this | | SHOULDER RIGHT | e | 11:33 AM | right shoulder | procedure are in the | | | | PST | | results section. | + +--------+ + + + documented in this encounter Results CT Arthrogram Shoulder Right (12/03/2017 11:33 AM PST) + + | Specimen | + + | | + + + + + | Narrative | Performed At | + + + | TECHNIQUE: After administration of intra-articular contrast, | [facility] | | axial CT imaging was obtained through the right shoulder with coronal | | | and sagittal reformats. CLINICAL INFORMATION: Severe right | | | shoulder pain COMPARISON: Radiographs dated 11/06/2017. | | | FINDINGS: Rotator cuff: There is a full-thickness tear of the | | | supraspinatus tendon measuring 1.4 cm in anterior posterior dimension | | | and 1.2 cm in the transverse dimension with small amount of | | | contrast-enhanced fluid extending into the subacromial space. Mild | | | supraspinatus muscle atrophy. The subscapularis, long head biceps, | | | infraspinatus, and teres minor tendons appear intact. Labrum: No | | | labral tear identified. Bone and joint: No acute fracture, | | | Hill-Sachs, or Bankart lesion identified. Type II acromion is seen | | | with moderate to severe degeneration of the acromioclavicular joint. | | | Moderate inferior bony spurring at the distal clavicle with mass | | | effect on the underlying supraspinatus myotendinous junction. | | | Neurovascular structures:The neurovascular structures have normal | | | course and signal through the shoulder girdle. Other findings: No | | | soft tissue mass identified. Visualized right lung is clear. | | | IMPRESSION - Full-thickness supraspinous tear measuring 1.4 cm. | | | Mild supraspinatus muscle atrophy. 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 Dictated and Signed by: | | | Gutierrez Velásquez MD Electronically signed: 12/04/2017 2:01 PM | | + + + + + | Procedure Note | + + | Jeanmarie, Rad Results In - 12/04/2017 2:05 PM PST | | TECHNIQUE: After administration of intra-articular contrast, axial CT imaging | | was obtained through the right shoulder with coronal and sagittal reformats. | | | | CLINICAL INFORMATION: Severe right shoulder pain | | | | COMPARISON: Radiographs dated 11/06/2017. | | | | FINDINGS: | | Rotator cuff: There is a full-thickness tear of the supraspinatus tendon | | measuring 1.4 cm in anterior posterior dimension and 1.2 cm in the transverse | | dimension with small amount of contrast-enhanced fluid extending into the | | subacromial space. Mild supraspinatus muscle atrophy. The subscapularis, long | | head biceps, infraspinatus, and teres minor tendons appear intact. | | | | Labrum: No labral tear identified. | | | | Bone and joint: No acute fracture, Hill-Sachs, or Bankart lesion identified. | | Type II acromion is seen with moderate to severe degeneration of the | | acromioclavicular joint. Moderate inferior bony spurring at the distal clavicle | | with mass effect on the underlying supraspinatus myotendinous junction. | | | | Neurovascular structures:The neurovascular structures have normal course and | | signal through the shoulder girdle. | | | | Other findings: No soft tissue mass identified. Visualized right lung is clear. | | | | | | IMPRESSION - | | Full-thickness supraspinous tear measuring 1.4 cm. Mild supraspinatus muscle | | atrophy. 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 | | | | Dictated and Signed by: Gutierrez Velásquez MD | | Electronically signed: 12/04/2017 2:01 PM | + + + +---------+ + + | Performing | Address | City/State/Zipcode | Phone Number | | Organization | | | | + +---------+ + + | [facility] | | | | + +---------+ + + documented in this encounter Visit Diagnoses + + | Diagnosis | + + | Acute pain of right shoulder | + + documented in this encounter Additional Health Concerns + + + + | Infection | Noted Time | Resolved Time | + + + + | Methicillin-resistant Staphylococcus aureus | 03/20/2017 12:00 AM | | | | PDT | | + + + + documented as of this encounter"
--- OUTSIDE RECORDS SUMMARY | ~2019-10-18 | XMS | Encounter Summary ---
Demographics + + + | Address | [address] | | | [place] [address] | + + + | Home Phone | | + + + | Preferred Language | Unknown | + + + | Marital Status | | + + + | Synagogue Affiliation | 1027 | + + + | Race | Unknown | + + + | Ethnic Group | Unknown | + + + Author + + + | Author | [facility] | | | and [place] | + + + | Organization | [facility] | | | [...] Team Providers + +------+ + | Care Channel Rebuilder Name | Role | Phone | + +------+ + | Jesus Mijares MD | PCP | | + +------+ + Encounter Details +--------+ + + + + | Date | Type | Department | Care Team | Description | +--------+ + + + + | 01/05/ | Orders Only | [facility] | Ino Wilson MD | | | 2015 | | NEPHROLOGY [place] | [address] [place] | | | | | [address] [place] | [address] [place], [place] | | | | | [address] [place], [place] | [address] | | | | | [address] | | | | | | [phone] | | | +--------+ + + + [...] | | | | | | [place] [address] | | | | | | [phone] | | | | | | | [...] | EXTERNAL LAB: CBC | Routin | 01/06/2016 | | Results for this | | | e | 12:00 AM | | procedure are in the | | | | PDT | | results section. | + +--------+ + + + | URINALYSIS, REFLEX | Routin | 01/06/2016 | | Results for this | | MICROSCOPIC AND/OR | e | 12:00 AM | | procedure are in the | | CULTURE | | PDT | | results section. | + +--------+ + + + | PROTEIN/CREATININE | Routin | 01/06/2016 | | Results for this | | RATIO, URINE | e | 12:00 AM | | procedure are in the | | | | PDT | | results section. | + +--------+ + + + | URIC ACID | Routin | 01/06/2016 | | Results for this | | | e | 12:00 AM | | procedure are in the | | | | PDT | | results section. | + +--------+ + + + | MAGNESIUM | Routin | 01/06/2016 | | Results for this | | | e | 12:00 AM | | procedure are in the | | | | PDT | | results section. | + +--------+ + + + documented in this encounter Results Urinalysis, Reflex Microscopic and/or Culture (01/06/2016 12:00 AM PDT) + + + + + [...] + + + + + + | Spec Grav, | 1.007 | 1.005 - 1.030 | EXTERNAL | | | Fluid | | | LAB | | + [...] + + + + + + | Total | Negative | | EXTERNAL | | | Protein | | | LAB | | + + + + + + | Blood, | Negative | | EXTERNAL | | | Urine | | | LAB | | + + + + + + | Ketones | Negatove | | EXTERNAL | | | | [...] + + | | + + + +---------+ + + | Performing | Address | City/State/Zipcode | Phone Number | | Organization | | | | + +---------+ + + | EXTERNAL LAB | | | | + +---------+ + + Protein/Creatinine Ratio, Urine (01/06/2016 12:00 AM PDT) + +-------+ + + + | Component | Value | Ref Range | Performed | Pathologist | | | | | At | Signature | + +-------+ + + + | Protein/Cre | 100.0 | 0 - 150 | EXTERNAL | [...] + +---------+ + + External Lab: CBC (01/06/2016 12:00 AM PDT) + +-------+ + + + | Component | Value | Ref Range | Performed | Pathologist | | | | | At | Signature | + +-------+ + + + | WBC | 5.5 | 4.5 - 11.0 10 | EXTERNAL | | | | | | LAB | | + +-------+ + + + | RED CELL | 4.34 | 3.8 - 5.1 10 | EXTERNAL | | | COUNT | | | LAB | | + +-------+ + + + | Hgb | 12.8 | 12.0 - 16.0 | EXTERNAL | | | | | g/dL | LAB | | + +-------+ + + + | Hematocrit, | 39.1 | 35 - 45 % | EXTERNAL | | | POC | | | LAB | | + +-------+ + + + | MCV | 90.2 | 81 - 99 fL | EXTERNAL | | | | | | LAB | | + +-------+ + + + | MCH | 29 | 27 - 33 pg | EXTERNAL | | | | | | LAB | | + +-------+ + + + | MCHC | 33 | 30 - 33 g/dL | EXTERNAL | | | | | | LAB | | + +-------+ + + + | Platelet | 240 | 140 - 440 K/ L | EXTERNAL | | | Count | | | LAB | | | Plasma | | | | | + +-------+ + + + | RDW-CV | 13.7 | 10.5 - 15.0 % | EXTERNAL | | | | | | LAB | | + +-------+ + + + | MPV | | fL | EXTERNAL | | | | | | LAB | | + +-------+ + + + | Differentia | Auto | | EXTERNAL | | | l Type | | | LAB | | + +-------+ + + + | % Segmented | 52.7 | 39 - 80 % | EXTERNAL | | | | | | LAB | | | Neutrophils | | | | | + +-------+ + + + | % | 34.2 | 24 - 44 % | EXTERNAL | | | Lymphocytes | | | LAB | | + +-------+ + + + | % Monocytes | 8.4 | 0 - 12 % | EXTERNAL | | | | | | LAB | | + +-------+ + + + | % | 3.4 | 0 - 6 % | EXTERNAL | | | Eosinophils | | | LAB | | + +-------+ + + + | % Basophils | 1.3 | 0 - 2 % | EXTERNAL [...] | + +---------+ + + Uric Acid (01/06/2016 12:00 AM PDT) + + + + + + | Component | Value | Ref Range | Performed | Pathologist | | | | | At | Signature | + + + + + + | Uric Acid | 10.3 (A) | 2.3 - 6.6 | EXTERNAL [...] | | + +---------+ + + Magnesium (01/06/2016 12:00 AM PDT) + +-------+ + + + | Component | Value | Ref Range | Performed | Pathologist | | | | | At | Signature | + +-------+ + + + | Magnesium | 1.9 | 1.7 - 2.5 mg/dL | EXTERNAL [...]
--- OUTSIDE RECORDS SUMMARY | ~2019-10-18 | XMS | Encounter Summary ---
Demographics + + + | Address | [address] | | | [place] [address] | + + + | Home Phone | | + + + | Preferred Language | Unknown | + + + | Marital Status | | + + + | Protestant Affiliation | 1027 | + + + | Race | Unknown | + + + | Ethnic Group | Unknown | + + + Author + + + | Author | [facility] | | | and [place] | + + + | Organization | [facility] | | | and [...] Team Providers + +------+ + | Care Manager Order Name | Role | Phone | + +------+ + | Jesus Mijares MD | PCP | | + +------+ + Reason for Visit + + + | Reason | Comments | + + + | Device Check | Biotronik pacemaker remote device check | | (Remote) | | + + + Encounter Details +--------+ + + + + | Date | Type | Department | Care Team | Description | +--------+ + + + + | 06/11/ | Procedure | [facility] | Rajendra Fowler, | Cardiac pacemaker in | | 2019 | visit | CARDIOLOGY [place] | [address] | situ (Primary Dx); | | | | [address] | [place], | Sick sinus syndrome | | | | [place], [place] | [place] [address] | ([facility]); Chronic | | | | [address] | [phone] | diastolic heart | | | | [phone] | | failure ([facility]); | | | | | | Paroxysmal atrial | | | | | | fibrillation ([facility]) | +--------+ + + + + Social [...] documented as of this encounter Progress Notes Rajendra Fowler MD - 06/11/2019 8:00 AM PDTBattery capacity 80%, normal maker function, a trial and ventricular lead impedance, sensing and capture. Atrial arrhythmias noted with an overall 3% burden, the longest episode was 6.5 hours, average 2 episodes per day. No elect rograms were included to review. 4 :41 PM PDTdocumented in this encounter Plan of Treatment +--------+ [...] | | | | | | [place] [address] | | | | | | [phone] | | | | | | | [...] | + +--------+ + + + | DEVICE | Routin | 06/11/2019 | Cardiac pacemaker | Results for this | | INTERROGATION- | e | 8:00 AM | in situ Sick sinus | procedure are in the | | REMOTE | | PDT | syndrome (HCC) | results section. | | | | | Chronic diastolic | | | | | | heart failure (HCC) | | | | | | Paroxysmal atrial | | | | | | fibrillation (HCC) | | + +--------+ + + + documented in this encounter Results Device Interrogation - Remote (06/11/2019 8:00 AM PDT) + + + | Narrative | Performed At | + + + | Rajendra Perez | [facility] | | MD Malcolm 06/29/2019 16:41PACEMAKER REMOTE INTERROGATION REPORT | | | Name: Rebecca Lua Jonathan PCP: Jesus Mijares MD : | | | 1940MRN: [id number] Primary cardiology provider: Rai Fowler | | | Primary electrophysiology provider: Mary Moe Device supervisor leaf spring repair: | | | Biotronik Device type: Dual chamber Battery Longevity: OK/80% | | | capacity RA Pacin% (but total of AP/VS and AP/STRINGING MACHINE OPERATOR is 81%)RV | | | Pacin% INTERROGATION RESULTS:Please see the full interrogation | | | report attached Known history of atrial flutter or atrial | | | fibrillation: YesCurrent antithrombotic therapy including: warfarin | | | Mode switches: Atrial burden 3%, average of 2 atrial arrhythmia | | | episodes per day. 39 mode switches total. Longest AT episode on | | | 03/17/19 for 1:46:48. Avg V rate 99 bpm . Ventricular high rate | | | episodes: None. Lead function: Lead impedance and threshold value | | | trends have been reviewed and are acceptable based on most recent | | | evaluation CHF: Congestive heart failure parameters and trends have | | | been reviewed and are stable Follow up: The next scheduled | | | interrogation will be in 3 months via remote transmission. Additional | | | comments: None. IMPRESSION:1. Normal pacemaker function.2. See AT | | | events noted above.3. No ventricular high rate episodes were noted. | | | Testing reviewed by: Ingris Rosas RN Pacemaker interrogation reviewed, | | | I agree with the above (report edited). Electronically signed by: | | | Rajendra Fowler MD 06/29/2019 16:41 | | | | | |Mode switches: Atrial burden 3%, average of 2 atrial arrhythmia | | |episodes per day. 39 mode switches total. Longest AT episode on | | |03/17/19 for 1:46:48. Avg V rate 99 bpm . | | | | | |Ventricular high rate episodes: None. | | | | | |Lead function: Lead impedance and threshold value trends have | | |been reviewed and are acceptable based on most recent evaluation | | | | | |CHF: Congestive heart failure parameters and trends have been | | |reviewed and are stable | | | | | |Follow up: The next scheduled interrogation will be in 3 months | | |via remote transmission. | | | | | |Additional comments: None. | | | | | |IMPRESSION: | | |1. Normal pacemaker function. | | |2. See AT events noted above. | | |3. No ventricular high rate episodes were noted. | | | | | |Testing reviewed by: Ingris Rosas RN | | | | | |Pacemaker interrogation reviewed, I agree with the above (report | | |edited). | | | | | |Electronically signed by: Rajendra Fowler MD 06/29/2019 16:41 | | | | | | | | + + + + +---------+ + + | Performing | Address | City/State/Zipcode | Phone Number | | Organization | | | | + +---------+ + + | [facility] | | | | + +---------+ + + documented in this encounter Visit Diagnoses + + | Diagnosis | + + | Cardiac pacemaker in situ - Primary | + + | Sick sinus syndrome (HCC) Sinoatrial node dysfunction | + + | Chronic diastolic heart failure (HCC) Chronic diastolic heart failure | + + | Paroxysmal atrial fibrillation (HCC) Atrial fibrillation | + + documented in this encounter Additional Health Concerns + + + + | Infection | Noted Time | Resolved Time | + + + + | Methicillin-resistant Staphylococcus aureus | 03/20/2017 12:00 AM | | | | PDT | | + + + + documented as of this encounter"
--- OUTSIDE RECORDS SUMMARY | ~2019-10-18 | XMS | Encounter Summary ---
Demographics + + + | Address | [address] | | | [place] [address] | + + + | Home Phone | | + + + | Preferred Language | Unknown | + + + | Marital Status | | + + + | Pentecostal Affiliation | 1027 | + + + | Race | Unknown | + + + | Ethnic Group | Unknown | + + + Author + + + | Author | [facility] | | | and [place] | + + + | Organization | [facility] | | | [...] Team Providers + +------+ + | Care Treasury Associate Name | Role | Phone | + +------+ + | Jesus Mijares MD | PCP | | + +------+ + Encounter Details +--------+ + + + + | Date | Type | Department | Care Team | Description | +--------+ + + + + | 10/29/ | Orders Only | [facility] | Conversion | | | 2016 | | NEPHROLOGY [place] | Transaction, | | | | | [address] | Provider Unknown | | | | | [address] [facility], [place] | | | | | | [address] | (Fax) | | | | | [phone] | | | +--------+ + + + [...] | | | | | | [place] [address] | | | | | | [phone] | | | | | | | [...] | EXTERNAL LAB: CBC | Routin | 10/29/2016 | | Results for this | | | e | 12:30 PM | | procedure are in the | | | | PST | | results section. | + +--------+ + + + | URINALYSIS, | Routin | 10/29/2016 | | Results for this | | MICROSCOPIC ONLY | e | 12:30 PM | | procedure are in the | | | | PST | | results section. | + +--------+ + + + | PROTEIN/CREATININE | Routin | 10/29/2016 | | Results for this | | RATIO, URINE | e | 12:30 PM | | procedure are in the | | | | PST | | results section. | + +--------+ + + + | URIC ACID | Routin | 10/29/2016 | | Results for this | | | e | 12:30 PM | | procedure are in the | | | | PST | | results section. | + +--------+ + + + | PARATHYROID HORMONE, | Routin | 10/29/2016 | | Results for this | | INTACT | e | 12:30 PM | | procedure are in the | | | | PST | | results section. | + +--------+ + + + | RENAL FUNCTION PANEL | Routin | 10/29/2016 | | Results for this | | | e | 12:30 PM | | procedure are in the | | | | PST | | results section. | + +--------+ + + + documented in this encounter Results Protein/Creatinine Ratio, Urine (10/29/2016 12:30 PM PST) + +-------+ + + + | Component | Value | Ref Range | Performed | Pathologist | | | | | At | Signature | + +-------+ + + + | Protein/Cre | 117.6 | 0 - 150 | EXTERNAL | [...] + +---------+ + + Urinalysis, Microscopic Only (10/29/2016 12:30 PM PST) + + + + [...] - 1.030 | EXTERNAL | | | [place] | | | LAB | | + [...] + +---------+ + + External Lab: CBC (10/29/2016 12:30 PM PST) + +-------+ + + + | Component | Value | Ref Range | Performed | Pathologist | | | | | At | Signature | + +-------+ + + + | WBC | 5.3 | 4.5 - 11.0 10 | EXTERNAL | | | | | | LAB | | + +-------+ + + + | RED CELL | 4.53 | 3.8 - 5.1 10 | EXTERNAL | | | COUNT | | | LAB | | + +-------+ + + + | Hgb | 14.1 | 12.0 - 16.0 | EXTERNAL | | | | | g/dL | LAB | | + +-------+ + + + | Hematocrit, | 42.1 | 35 - 45 % | EXTERNAL | | | POC | | | LAB | | + +-------+ + + + | MCV | 92.9 | 81 - 99 fL | EXTERNAL | | | | | | LAB | | + +-------+ + + + | MCH | 31 | 27 - 33 pg | EXTERNAL | | | | | | LAB | | + +-------+ + + + | MCHC | 33 | 30 - 36 g/dL | EXTERNAL | | | | | | LAB | | + +-------+ + + + | Platelet | 292 | 140 - 440 K/ L | EXTERNAL | | | Count | | | LAB | | | Plasma | | | | | + +-------+ + + + | RDW-CV | 13.8 | 10.5 - 15.0 % | EXTERNAL [...] | + +---------+ + + Uric Acid (10/29/2016 12:30 PM PST) + +-------+ + + + | Component | Value | Ref Range | Performed | Pathologist | | | | | At | Signature | + +-------+ + + + | Uric Acid | 5.3 | 2.3 - 6.6 | EXTERNAL | [...] + +---------+ + + Parathyroid Hormone, Intact (10/29/2016 12:30 PM PST) + + + + + + | Component | Value | Ref Range | Performed | Pathologist | | | | | At | Signature | + + + + + + | PTH INTACT | 104.4 (A) | 15 - 65 pg/mL | EXTERNAL [...] + +---------+ + + Renal Function Panel (10/29/2016 12:30 PM PST) + +---------+ + + + | Component | Value | Ref Range | Performed | Pathologist | | | | | At | Signature | + +---------+ + + + | Glucose, | 123 (A) | 70 - 100 mg/dL | EXTERNAL | | | [place] | | | LAB | | + +---------+ + + + | BUN | 13 | 6 - 23 mg/dL | EXTERNAL | | | | | | LAB | | + +---------+ + + + | Creatinine | 0.95 | 0.70 - 1.18 | EXTERNAL | | | | | mg/dL | LAB | | + +---------+ + + + | PHOSPHORUS | | mg/dL | EXTERNAL | | | | | | LAB | | + +---------+ + + + | Albumin | 3.7 | 3.5 - 5.0 | EXTERNAL | | | | | | LAB | | + +---------+ + + + | Na | 140 | 132 - 143 | EXTERNAL | | | | | mmol/L | LAB | | + +---------+ + + + | K | 4.2 | 3.6 - 5.1 | EXTERNAL | | | | | mmol/L | LAB | | + +---------+ + + + | Cl | 99 | 95 - 112 mmol/L | EXTERNAL | | | | | | LAB | | + +---------+ + + + | CO2 | 29 | 19 - 31 mmol/L | EXTERNAL | | | | | | LAB | | + +---------+ + + + | Anion Gap | 16.2 | 7 - 21 mmol/L | EXTERNAL | | | | | | LAB | | + +---------+ + + + | eGFR if not | | | EXTERNAL | | | | | | LAB | | | [facility] | | | | | + +---------+ + + + | Phosphorus, | 3.4 | 2.5 - 5.0 | EXTERNAL | | | Inorganic | | | LAB | | + +---------+ + + + | BUN/Creatin | 13.7 | 6.0 - 28.6 | EXTERNAL | | | ine Ratio | | | LAB | | + +---------+ + + + | Calcium | 9.3 | 8.4 - 10.2 | EXTERNAL | | | | | mg/dL | LAB | | + +---------+ + + + | Estimated | 58 | mg/dL | EXTERNAL | | | [...]
--- OUTSIDE RECORDS SUMMARY | ~2019-10-18 | XMS | Encounter Summary ---
Demographics + + + | Address | [address] | | | [place] [address] | + + + | Home Phone | | + + + | Preferred Language | Unknown | + + + | Marital Status | | + + + | Oriental Orthodox Affiliation | 1027 | + + + | Race | Unknown | + + + | Ethnic Group | Unknown | + + + Author + + + | Author | [facility] | | | and [place] | + + + | Organization | [facility] | | | [...] Team Providers + +------+ + | Care Insulation Power Unit Tender Name | Role | Phone | + +------+ + | Jesus Mijares MD | PCP | | + +------+ + Reason for Visit + + + | Reason | Comments | + + + | Back Pain | low back radiating into right leg with swelling in bilateral feet | + + + Encounter Details +--------+---------+ + + + | Date | Type | Department | Care Team | Description | +--------+---------+ + + + | 09/11/ | Office | [facility] | Christiano, | Lumbar radiculopathy | | 2016 | Visit | PHYSIATRY [address] | [place]AL[place] Sau[address] | (Primary Dx); | | | | [place], | [address] [place], | Trochanteric | | | | [place] [address] | [place] [address] | bursitis of right | | | | [phone] | [phone] | hip; DEGENERATIVE | | | | | | DISC DISEASE, LUMBAR | | | | | | SPINE; Spinal | | | | | | stenosis of lumbar | | | | | | region - L3/L4, | | | | | | adjacent segment | | | | | | disease; | | | | | | Sacroiliitis, not | | | | | | elsewhere classified | | | | | | (HCC) | +--------+---------+ + + + Social History [...] + + + | Blood Pressure | 122/83 | 09/11/2016 11:33 AM | | | | | PST | | + + + + + | Pulse | 89 | 09/11/2016 11:33 AM | | | | | PST [...] Weight | 88.5 kg (195 lb) | 09/11/2016 11:33 AM | | | | | PST | | + + + + + | Height | 162.6 cm (5' 4") | 09/11/2016 11:33 AM | | | | | PST | | + + + + + | Body Mass Index | 33.47 | 09/11/2016 11:33 AM | | | | | PST | | + + + + + documented in this encounter Patient Instructions Patient Instructions Sheryl Alvarado PA-C - 09/11/2016 11:54 AM PST1) Bilateral epidur al injection with right SI joint injection with Dr. Tejada 2) Follow up in [address] Chaudhry for a same day injection documented in this encounter Progress Notes Sheryl Alvarado PA-C - 09/11/2016 11:41 AM PSTFormatting of this note might be differe nt from the original. CHIEF COMPLAINT: Chief Complaint Patient presents with Back Pain low back radiating into right leg with swelling in bilateral feet HISTORY OF PRESENT ILLNESS: The patient is a 76 y.o. female being seen today in follow-up for complaints of low back pa in. The patient has been seen for this complaint in the past, with initial visit started b y Dr. Chaudhry. Previously it was recommended that she receive bilateral L4/L5 epidural i njection for spinal stenosis. She last received this last 06/11/2016 along with a right troc hanteric bursa injection. She reports having had 60% relief for 3 months, her symptoms rece ntly worsened. She continue to have right SI pain/tightness even with the injections. She describes the pain as constant dull with occasional sharpness depending on movement. H er symptoms worsen with standing and walking and laying on the right side. Her symptoms imp rove with rest, sitting down. The patient does describe numbness of the [...] in [address] Yong Pena in [place], use of hydrocodone 3 x/day and flexeril, prior L4/L5 epidural injections, prior SI injections. Patient's medications, allergies, past medical, surgical, social and family histories were reviewed and updated as appropriate. CURRENT MEDICATIONS: Current Outpatient Prescriptions Medication Sig Dispense Refill acebutolol (SECTRAL) 200 mg capsule Take 200 mg by mouth 2 times daily. (Patient taking differently: Take 200 mg by mouth 3 times daily.) acetaminophen (TYLENOL) 500 mg tablet Take 500 mg by mouth every 6 hours as needed for Pain. allopurinol (ZYLOPRIM) 100 mg tablet Take 100 mg by mouth Daily. amitriptyline (ELAVIL) 25 mg tablet Take 25 mg by mouth nightly. (Patient taking differ ently: Take 10 mg by mouth nightly.) cloNIDine (CATAPRES) 0.1 mg tablet Take 0.1 mg by mouth 3 times daily. ezetimibe-simvastatin (VYTORIN) 10-40 MG per tablet Take 1 tablet by mouth nightly. HYDROcodone-acetaminophen (NORCO) 10-325 mg per tablet Take 1 tablet by mouth 5 times d aily. tiZANidine (ZANAFLEX) 4 mg tablet Take 4 mg by mouth every 6 hours as needed. torsemide (DEMADEX) 20 mg tablet Take 20 mg by mouth 3 times daily. traZODone (DESYREL) 50 mg tablet Take 50 mg by mouth nightly. warfarin (COUMADIN) 4 MG tablet Take 4 mg by mouth Daily. 4 mg then 2 mg on ay No current facility-administered medications for this visit. [...] rashes. HEMATOLOGIC/LYMPHATIC: No abnormal bleeding PHYSICAL EXAMINATION: Filed Vitals: 09/11/16 1133 BP: 122/83 Pulse: 89 PainSc: 7 PainLoc: Back GENERAL: The patient [...] has no apparent deficits with short or quality coordinator memory. She has appropriate fund of knowledge [...] negative for any groin pain. There was no tenderness to palpation over the greater tr ochanters or sacral sulci. The patient localized the majority of the pain to the L3/L4 prosper on above the fusion with more pain to the bilateral SI joints. Lumbar facet loading was pos itive. Strength testing showed 5/5 strength throughout the lower extremities. The patient was able to heel and toe walk without difficulty. There was no redness, effusion, warmth or joint line tenderness in the knees or ankles. RADIOGRAPHIC REVIEW: MRI was reviewed with the patient, the most recent MRI shows lumbar spinal stenosis at the L3/L4 level which is above the level of fusion, she has lumbar scoliosis, multi-level forami nal stenosis and multi-level facet arthritis. ASSESSMENT: 1. Lumbar radiculopathy 2. Trochanteric bursitis of right hip 3. DEGENERATIVE DISC DISEASE, LUMBAR SPINE 4. Spinal stenosis of lumbar region - L3/L4, adjacent segment disease 5. Sacroiliitis, not elsewhere classified (HCC) PLAN: 1. The patient has had significant conservative care including medications (NSAIDS and sam cotics), PT (multiple sessions over the years) and career development associate. Unfortunately she cont inues to have significant discomfort. It appears to me that the pain is primarily coming fr om the central spinal stenosis at L3/L4. I did feel that she would be a good candidate for interventional procedures as the last epidural injection greatly helped. I offered bilatera l L4/L5 epidural injections with a right SI joint injectoin to be done later today. She is on Warfarin and has been off for the last 5 days. 2. Medications have been reviewed at today's visit with no changes made at this time. 3. The patient will follow up in three months from today for another same day injection. ELECTRONICALLY SIGNED BY: Sheryl Alvarado PA-C, 09/11/2016 documented in this encounter Plan of Treatment [...] | | | | | | [place] [address] | | | | | | [phone] | | | | | | | | +--------+ + + + + | 12/23/ | Procedure | Cardiology | | | 2019 | visit | [...] this encounter Results FL SRINIVAS Lumbar Transforaminal (09/11/2016 2:08 PM PST) + + | Specimen | + + | | + + + + + | Narrative | Performed At | + + + | 09/11/2016 Bilateral Transforaminal Epidural Steroid Injections | [facility] | | Diagnosis: Lumbar radiculopathy ICD-10 Code M54.16 Rebecca | [facility] | | Chanell Castillo presents to the fluoroscopy suite for [facility] | | fluoroscopically-guided bilateral L4-L5 transforaminal epidural | - IMAGING | | steroid injections as part of conservative management for chronic | | | pain with lumbar radiculopathy and degenerative disk disease. After | | | informed consent was obtained, the patient lay in the prone position | | | on the fluoroscopy table. The areas were identified under | | | fluoroscopic guidance. The areas were prepped and draped in sterile | | | fashion. A 25-gauge, 1.5-inch needle was inserted into each region | | | and approximately 3 mL of buffered 1% lidocaine was infused. Then, a | | | 22-gauge spinal needle was inserted into the posterior superior | | | transforaminal space bilaterally and advanced into the epidural | | | space under fluoroscopic guidance. Confirmation into the epidural | | | space was obtained with infusion of approximately 1 mL of Omnipaque | | | contrast which showed epidural flow as well as nerve sheath flow. | | | Then, a combination of 2 mL of 1% lidocaine and 2 mL of 6 mg/mL | | | Celestone was infused, divided between the two sides. The patient | | | tolerated the procedure well without complications. Pre- and | | | post-procedure blood pressures were stable. The patient was given | | | verbal as well as written follow-up instructions. Prior to the | | | start of the procedure, the following were performed and/or | | | verified, including correct patient identity, correct site/side marked | | | and visible, agreement on the procedure to be done, correct patient | | | positioning and an accurate procedure consent form. Any safety | | | precautions based on clinical history and/or medication use have | | | been addressed. I personally performed the procedure above. | | | Estimated blood loss: Minimal Complications: None Findings: As | | | expected Anesthesia: Local 1% Lidocaine | | + + + + + + + + | Performing | Address | City/State/Zipcode | Phone Number | | Organization | | | | + + + + + | [facility] | [address] | [place], [place] | [phone] | | [facility] | | [address] | | | - IMAGING | | | | + + + + + FL Sacroiliac Injection Right (09/11/2016 2:08 PM PST) + + | Specimen | + + | | + + + + + | Narrative | Performed At | + + + | 09/11/2016 Sacroiliac Joint Injection Clinical History: | [facility] | | Sacroiliitis ICD-10 M46.1 Rebecca Castillo presents to the | [facility] | | fluoroscopy suite for a fluoroscopically guided right sacroiliac [facility] | | joint steroid injection as part of conservative management for | - IMAGING | | chronic pain with sacroiliitis. After informed consent was obtained | | | the patient laid in the prone position on the fluoroscopy table. The | | | right sacroiliac joint was identified under fluoroscopic guidance. | | | The area was prepped and draped in sterile fashion. A 25 gauge 1-1/2 | | | inch needle was inserted into this region and approximately 3 mL of | | | buffered 1% lidocaine was infused. Then a 22 gauge spinal needle | | | was inserted into the inferior joint space under fluoroscopic | | | guidance. Confirmation into the sacroiliac joint was obtained with | | | infusion of approximately 1 mL of Omnipaque contrast which showed | | | flow within the joint space. Then a combination of 1 mL 1% lidocaine | | | and 1 mL of 40 mg per milliliter Kenalog was infused. The patient | | | tolerated the procedure well without complications. Pre- and post | | | procedure blood pressures were stable. The patient was given verbal | | | as well as written followup instructions. Prior to the start of | | | the procedure the following were performed and verified [...] + + | [facility] | [address] | [place] | [phone] | | [facility] | | [address] | | | - IMAGING | | | | + + + + + documented in this encounter Visit Diagnoses + + | Diagnosis | + + | Lumbar radiculopathy - Primary Thoracic or lumbosacral neuritis or radiculitis, | | unspecified | + + | Trochanteric bursitis of right hip Enthesopathy of hip region | + + | DEGENERATIVE DISC DISEASE, LUMBAR SPINE Degeneration of lumbar or lumbosacral | | intervertebral disc | + + | Spinal stenosis of lumbar region - L3/L4, adjacent segment disease Spinal stenosis, | | lumbar region, without neurogenic claudication | + + | Sacroiliitis, not elsewhere classified (HCC) Sacroiliitis, not elsewhere classified | + + documented in this encounter
--- OUTSIDE RECORDS SUMMARY | ~2019-10-18 | XMS | Encounter Summary ---
Demographics + + + | Address | [address] | | | [place] [address] | + + + | Home Phone | | + + + | Preferred Language | Unknown | + + + | Marital Status | | + + + | Anglican Affiliation | 1027 | + + + | Race | Unknown | + + + | Ethnic Group | Unknown | + + + Author + + + | Author | [facility] | | | and [place] | + + + | Organization | [facility] | | | and [...] Team Providers + +------+ + | Care Chief Green Officer Name | Role | Phone | + [...] | | | [place], | [address] | | | | | Trochanteric | Sheryl, | [place], | | | | | bursitis of | PA-C [address] | [place] | | | | | both hips | [address] | [address] | | | | | Procedures | [place] | Phone: | | | | | [place] | [address] | [phone] | | | | | Joint | Phone: | Fax: | | | | | Injection | [phone] | [phone] | | | | | Left | Fax: | | | | | | | [phone] | | +--------+--------+ + + + + Reason for Visit + + + | Reason | Comments | + + + | Back Pain | low back pain radiating into bilateral hips | + + + Encounter Details +--------+---------+ + + + | Date | Type | Department | Care Team | Description | +--------+---------+ + + + | 04/29/ | Office | [facility] | Christiano, | Lumbar radiculopathy | | 2017 | Visit | PHYSIATRY [address] | [place] | (Primary Dx); | | | | [place], | [facility], | Spinal stenosis of | | | | [place] [address] | [place] [address] | lumbar region - | | | | [phone] | [phone] | L3/L4, 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; | | | | | | Spondylolisthesis, | | | | | | unspecified spinal | | | | | | region; Trochanteric | | | | | | bursitis of right | | | | | | hip; Adolescent | | | | | | idiopathic scoliosis | | | | | | of lumbar region; | | | | | | Trochanteric | | | | | | bursitis of both | | | | | | hips | +--------+---------+ + + + Social History [...] + + + | Blood Pressure | 99/65 | 04/29/2017 11:58 AM | | | | | PDT | | + + + + + | Pulse | 73 | 04/29/2017 11:58 AM | | | | | PDT [...] Weight | 88.5 kg (195 lb) | 04/29/2017 11:58 AM | | | | | PDT | | + + + + + | Height | 162.6 cm (5' 4") | 04/29/2017 11:58 AM | | | | | PDT | | + + + + + | Body Mass Index | 33.47 | 04/29/2017 11:58 AM | | | | | PDT | | + + + + + documented in this encounter Patient Instructions Patient Instructions Sheryl Alvarado PA-C - 04/29/2017 11:20 AM PDT1) Epidural steroid injection with bilateral hip injection Follow-up at the hospital thirty minutes before [...] of the procedure you must provide a taxi driver to take you home. For all procedur es it is recommended that someone else drive you home. documented in this encounter Progress Notes Sheryl Alvarado PA-C - 04/29/2017 11:20 AM PDTFormatting of this note might be differe nt from the original. CHIEF COMPLAINT: Chief Complaint Patient presents with Back Pain low back pain radiating into bilateral hips HISTORY OF PRESENT ILLNESS: The patient is [...] injection. She l ast received this last 12/24/2016. She reports having had 60% relief for 3 months, her sympt oms recently worsened. She describes the pain as [...] in [address] Yong [place] in [place], use of hydrocodone 3 x/day and flexeril, [...] 0.1 mg by mouth 3 times daily. digoxin (LANOXIN) 125 mcg tablet Take 125 mcg by mouth nightly. ezetimibe-simvastatin (VYTORIN) 10-40 MG per tablet Take 1 tablet by mouth nightly. HYDROcodone-acetaminophen (NORCO) 10-325 mg per tablet Take 1 tablet by mouth 5 times d aily. sotalol (BETAPACE) 80 mg tablet Take 80 [...] HEMATOLOGIC/LYMPHATIC: No abnormal bleeding PHYSICAL EXAMINATION: Vitals: 04/29/17 1158 BP: 99/65 Pulse: 73 PainSc: 8 PainLoc: Back GENERAL: The patient is well [...] has no apparent deficits with short or intermediate memory. She has appropriate fund of knowledge [...] facet arthritis. ASSESSMENT: 1. Lumbar radiculopathy 2. Spinal stenosis of lumbar region - L3/L4, adjacent segment disease 3. Spondylolisthesis, unspecified spinal region 4. Trochanteric bursitis of right hip 5. Adolescent idiopathic scoliosis of lumbar region 6. Trochanteric bursitis of both hips PLAN: 1. The patient has had significant conservative care including medications (NSAIDS and sam cotics), PT (multiple sessions over the years) and progressive care nurse. Unfortunately she cont inues to have significant [...] injection. ELECTRONICALLY SIGNED BY: Sheryl Alvarado PA-C, 04/29/2017 documented in this encounter Plan of Treatment [...] | | | | | | [place] [address] | | | | | | [phone] | | | | | | | [...] documented as of this encounter Results FL Major Joint Injection Left (04/29/2017 1:37 PM PDT) + + | Specimen | + + | | + + + + ---+ | Narrative | Performed At | + + ---+ | | [facility] | | 04/29/2017 Bilateral Transforaminal Epidural Steroid Injections and | [facility] | | Bilateral Trochanteric Bursa Injections Diagnosis: Lumbar | [facility] | | radiculopathy and Trochanteric Bursitis ICD-10 Codes M54.16 and M70.6 | - IMAGING | | Rebecca Castillo presents to the fluoroscopy suite for | | | fluoroscopically-guided bilateral L4-L5 transforaminal epidural | | | steroid injections as part of conservative management for chronic pain | | | with lumbar radiculopathy and degenerative disk disease. After | | | informed consent was obtained, the patient lay in the prone position | | | on the fluoroscopy table. The areas were identified under fluoroscopic | | | guidance. The areas were prepped and draped in sterile fashion. A | | | 25-gauge, 1.5-inch needle was inserted into each [...] lidocaine and 2 mL of 6 mg/mL Celestone was | | | infused, divided between the two sides. Bilateral trochanteric bursa | | | injections were also performed with fluoroscopic guidance. The area | | | for the left injection was located by palpation and fluoroscopic | | | guidance then marked over the lateral hip. The area was then | | | sterilized with chlorhexidine scrub before inserting a 1-1/2 inch | | | 27-gauge needle into the region to administer approximately 2 mL of | | | buffered 1% lidocaine for local anesthesia. Then a 22 gauge spinal | | | needle was advanced down to the greater trochanter under fluoroscopic | | | guidance. Next, a small amount of contrast was then infused to | | | insure that there was no vascular uptake. A total volume of 4.5 mL | | | including 0.5 mL of triamcinolone ( 40 milligrams per mL) and 4 mL of | | | 1% lidocaine was then infused. The needle was removed and the area was | | | cleaned and bandaged. The entire procedure was then repeated on the | | | right. The patient tolerated the procedures well without | | | complications. Pre- and post-procedure blood pressures were stable. | | | The patient was given verbal as well as written follow-up | | | instructions. Prior to the start of the procedures, the following | | | were performed and/or verified, including correct patient identity, [...] Local 1% Lidocaine | | + + ---+ + + + + + | Performing | Address | City/State/Zipcode | Phone Number | | Organization | | | | + + + + + | [facility] | [address] | [place], [place] | [phone] | | [facility] | | [address] | | | - IMAGING | | | | + + + + + [place] SRINIVAS Lumbar Transforaminal (04/29/2017 1:36 PM PDT) + + | Specimen | + + | | + + + + ---+ | Narrative | Performed At | + + ---+ | 04/29/2017 | [facility] | | Bilateral Transforaminal Epidural Steroid Injections and Bilateral | [facility] | | Trochanteric Bursa Injections Diagnosis: Lumbar radiculopathy and | [facility] | | Trochanteric Bursitis ICD-10 Codes M54.16 and M70.6 Rebecca Lua Jonathan | - IMAGING | | presents to the fluoroscopy suite for fluoroscopically-guided | | | bilateral L4-L5 transforaminal epidural steroid injections as part of | | | conservative management for chronic pain with lumbar radiculopathy and | | | degenerative disk disease. After informed consent was obtained, the | | | patient lay in the prone position on the fluoroscopy table. The areas | | | were identified under fluoroscopic guidance. The areas were prepped | | | and draped in sterile fashion. A 25-gauge, 1.5-inch needle was | | | inserted into each region and approximately 3 mL of buffered 1% | | | lidocaine was infused. Then, a 22-gauge spinal needle was inserted | | | into the posterior superior transforaminal space bilaterally and | | | advanced into the epidural space under fluoroscopic guidance. | | | Confirmation into the epidural space was obtained with infusion of | | | approximately 1 mL of Omnipaque contrast which showed epidural flow as | | | well as nerve sheath flow. Then, a combination of 2 mL of 1% | | | lidocaine and 2 mL of 6 mg/mL Celestone was infused, divided between | | | the two sides. Bilateral trochanteric bursa injections were also | | | performed with fluoroscopic guidance. The area for the left | | | injection was located by palpation and fluoroscopic guidance then | | | marked over the lateral hip. The area was then sterilized with | | | chlorhexidine scrub before inserting a 1-1/2 inch 27-gauge needle into | | | the region to administer approximately 2 mL of buffered 1% lidocaine | | | for local anesthesia. Then a 22 gauge spinal needle was advanced down | | | to the greater trochanter under fluoroscopic guidance. Next, a small | | | amount of contrast was then infused to insure that there was no | | | vascular uptake. A total volume of 4.5 mL including 0.5 mL of | | | triamcinolone ( 40 milligrams per mL) and 4 mL of 1% lidocaine was | | | then infused. The needle was removed and the area was cleaned and | | | bandaged. The entire procedure was then repeated on the right. The | | | patient tolerated the procedures well without complications. Pre- and | | | post-procedure blood pressures were stable. The patient was given | | | verbal as well as written follow-up instructions. Prior to the start | | | of the procedures, the following were performed and/or verified, | | | including correct patient identity, correct site/side marked and | | | visible, agreement on the procedure to be done, correct patient | | | positioning and an accurate procedure consent form. Any safety | | | precautions based on clinical history and/or medication use have been | | | addressed. I personally performed the procedure above. Estimated blood | | | loss: MinimalComplications: NoneFindings: As expectedAnesthesia: | | | Local 1% Lidocaine | | |verified, including correct patient identity, correct site/side marked and | | |visible, agreement on the procedure [...] | |Anesthesia: Local 1% Lidocaine | | | | | | | | + + ---+ + + + + + | Performing | Address | City/State/Zipcode | Phone Number | | Organization | | | | + + + + + | [facility] | [address] | [place] | [phone] | | [facility] | | [address] | | | - IMAGING | | | | + + + + + documented in this encounter Visit Diagnoses + + | Diagnosis | + + | Lumbar radiculopathy - Primary Thoracic or lumbosacral neuritis or radiculitis, | | unspecified | + + | Spinal stenosis of lumbar region - L3/L4, adjacent segment disease Spinal stenosis, | | lumbar region, without neurogenic claudication | + + | Spondylolisthesis, unspecified spinal region | + + | Trochanteric bursitis of right hip Enthesopathy of hip region | + + | Adolescent idiopathic scoliosis of lumbar region Scoliosis (and kyphoscoliosis), | | idiopathic | + + | Trochanteric bursitis of both hips Enthesopathy of hip region | + + documented in this encounter Additional Health Concerns + + + + | Infection | Noted Time | Resolved Time | + + + + | Methicillin-resistant Staphylococcus aureus | 03/20/2017 12:00 AM | | | | PDT | | + + + + documented as of this encounter
--- OUTSIDE RECORDS SUMMARY | ~2019-10-18 | XMS | Encounter Summary ---
Demographics + + + | Address | [address] | | | [place] [address] | + + + | Home Phone | | + + + | Preferred Language | Unknown | + + + | Marital Status | | + + + | Buddhism Affiliation | 1027 | + + + | Race | Unknown | + + + | Ethnic Group | Unknown | + + + Author + + + | Author | [facility] | | | and [place] | + + + | Organization | [facility] | | [...] Team Providers + +------+ + | Care Laborer Landscape Name | Role | Phone | + [...] | | | Christiano, | [address] | | | | | Trochanteric | Sheryl, | [place], | | | | | bursitis of | PA-C [address] | [place] | | | | | right hip | [address] | [address] | | | | | Procedures | [place] | Phone: | | | | | [place] Asp | [address] | [phone] | | | | | and/or Inj | Phone: | Fax: | | | | | Major Joint | [phone] | [phone] | | | | | Right | Fax: | | | | | | | [phone] | | +--------+--------+ + + + + [...] | | | Christiano, | [address] | | | | | Trochanteric | Sheryl, | [place], | | | | | bursitis of | PA-C [address] | [place] | | | | | right hip | [address] | [address] | | | | | Procedures | [place], [place] | Phone: | | | | | [place] Asp | [address] | [phone] | | | | | and/or Inj | Phone: | Fax: | | | | | Major Joint | [phone] | [phone] | | | | | Right | Fax: | | | | | | | [phone] | | +--------+--------+ + + + + Encounter Details +--------+ + + + + | Date | Type | Department | Care Team | Description | +--------+ + + + + | 02/06/ | Hospital | [facility] | Christiano, | Lumbar | | 2018 | Encounter | MED CTR XRAY [address] | GAMALIEL Saucedo [address] | radiculopathy; | | | | [address] [place] | [address] [place], | Spinal stenosis of | | | | [place] [address] | [place] [address] | lumbar region | | | | [phone] | [phone] | without neurogenic | | | | | | claudication; | | | | | 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, [facility] | DEGENERATIVE DISC | | | | | | DISEASE, LUMBAR | | | | | | SPINE; Trochanteric | | | | | | bursitis of right | | | | | | hip | +--------+ + + + + Social [...] +---------+ + + | Blood Pressure | 133/63 | 02/06/2018 1:45 PM | | | | | PDT | | + +---------+ + + | Pulse | - | [...] | | | | | | [place] [address] | | | | | | [phone] | | | | | | | [...] + +--------+ + + + | FL ASPIRATION | Routin | 02/06/2018 | Trochanteric | Results for this | | INJECTION MAJOR | e | 1:15 PM | bursitis of right | procedure are in the | | JOINT RIGHT | | PDT | hip | results section. | + +--------+ + + + | FL EPIDURAL STEROID | Routin | 02/06/2018 | Lumbar | Results for this | | INJECTION LUMBAR | e | 1:15 PM | radiculopathy | procedure are in the | | TRANSFORAMINAL | | PDT | Spinal stenosis of | results section. | | | | | lumbar region | | | | | | without neurogenic | | | | | | claudication | | | | | | DEGENERATIVE DISC | | | | | | DISEASE, LUMBAR | | | | | | SPINE | | + +--------+ + + + documented in this encounter Results FL Asp and/or Inj Major Joint Right (02/06/2018 1:15 PM PDT) + + | Specimen | + + | | + + + + -+ | Narrative | Performed At | + + -+ | | [facility] | | 02/06/2018 Bilateral Transforaminal Epidural Steroid Injections and | | | Right Trochanteric Bursa Injection Diagnosis: Lumbar radiculopathy and [...] | | including 1 mL of triamcinolone (40 milligrams per mL) and 4 mL of [...] + + | Performing | Address | City/State[facility] | Phone Number | | Organization | | | | + +---------+ + + | [facility] | | | | + +---------+ + + [place] SRINIVAS Lumbar Transforaminal (02/06/2018 1:15 PM PDT) + + | Specimen | + + | | + + + + -+ | Narrative | Performed At | + + -+ | | [facility] | | 02/06/2018 Bilateral Transforaminal Epidural Steroid Injections and | | | Right Trochanteric Bursa Injection Diagnosis: Lumbar radiculopathy and | | | Trochanteric Bursitis Rebecca Chanell Castillo presents to the fluoroscopy | | [...] | | including 1 mL of triamcinolone (40 milligrams per mL) and 4 mL of [...] Diagnosis | + + | Lumbar radiculopathy Thoracic or lumbosacral neuritis or radiculitis, unspecified | + + | Spinal stenosis of lumbar region without neurogenic claudication Spinal stenosis, | | lumbar region, without neurogenic claudication | + + | DEGENERATIVE DISC DISEASE, LUMBAR SPINE Degeneration of lumbar or lumbosacral | | intervertebral disc | + + | Trochanteric bursitis of right hip Enthesopathy of hip region | + + documented in this encounter Administered Medications + +--------+ +-------+------+------+ | Medication Order | MAR | Action | Dose | Rate | Site | | | Action | Date | | | | + +--------+ +-------+------+------+ | dexamethasone (PF) 10 mg/mL | Given | 02/07/20 | 10 mg | | | | injection 10 mg 10 mg, Other, | | 18 1:29 | | | | | ONCE, [facility] 02/06/18 at 1345, For 1 | | PM PDT | | | | | dose | | | | | | + +--------+ +-------+------+------+ +---+---+ | | | +---+---+ + +-------+ +-------+---+---+ | iohexol (OMNIPAQUE 300) 300 | Given | 02/07/20 | 4 mLs | | | | mg/mL injection 4 mL 4 mL, | | 18 1:26 | | | | | Other, ONCE, [facility] 02/06/18 at 1345, | | PM PDT | | | | | For 1 dose | | | | | | + +-------+ +-------+---+---+ +---+---+ | | | +---+---+ + +-------+ +-------+---+---+ | lidocaine (PF) 1% injection 2 | Given | 02/07/20 | 2 mLs | | | | mL 2 mL, Other, ONCE, [facility] | | 18 1:30 | | | | | 02/06/18 at 1345, For 1 dose | | PM PDT | | | | + +-------+ +-------+---+---+ +---+---+ | | | +---+---+ + +-------+ +-------+---+---+ | lidocaine (PF) 1% injection 2 | Given | 02/07/20 | 2 mLs | | | | mL 2 mL, Intra-articular, ONCE, | | 18 1:32 | | | | | [facility] 02/06/18 at 1345, For 1 dose | | PM PDT | | | | + +-------+ +-------+---+---+ +---+---+ | | | +---+---+ + +-------+ +-------+---+ + | lidocaine buffered 1.5% | Given | 02/07/20 | 6 mLs | | Other | | injection 6 mL 6 mL, | | 18 1:24 | | | (Comment | | Intradermal, ONCE, [facility] 02/06/18 at | | PM PDT | | | ) | | 1345, For 1 dose | | | | | | + +-------+ +-------+---+ + +---+---+ | | | +---+---+ + +-------+ +-------+---+---+ | triamcinolone acetonide | Given | 02/07/20 | 40 mg | | | | (KENALOG-40) 40 mg/mL injection | | 18 1:32 | | | | | 40 mg 40 mg, Intra-articular, | | PM PDT | | | | | ONCE, [facility] 02/06/18 at 1345, For 1 | | | | | | | dose, Shake well. Not for IV | | | | | | | use., | | | | | | + +-------+ +-------+---+---+ +---+---+ | | | +---+---+ documented in this encounter Additional Health Concerns + + + + | Infection | Noted Time | Resolved Time | + + + + | Methicillin-resistant Staphylococcus aureus | 03/20/2017 12:00 AM | | | | PDT | | + + + + documented as of this encounter"
--- OUTSIDE RECORDS SUMMARY | ~2019-10-18 | XMS | Encounter Summary ---
Demographics + + + | Address | [address] | | | [place] [address] | + + + | Home Phone | | + + + | Preferred Language | Unknown | + + + | Marital Status | | + + + | Uatsdin Affiliation | 1027 | + + + | Race | Unknown | + + + | Ethnic Group | Unknown | + + + Author + + + | Author | [facility] | | | and [place] | + + + | Organization | [facility] | | | and [...] Team Providers + +------+ + | Care Integrated Circuit Ic Layout Designer Name | Role | Phone | + +------+ + | Jesus Mijares MD | PCP | | + +------+ + Reason for Visit + + + | Reason | Comments | + + + | Results, Imaging | DEXA | + + + Encounter Details +--------+ + + + + | Date | Type | Department | Care Team | Description | +--------+ + + + + | 04/27/ | Telephone | [facility] | Capo Bermudez, | Results, Imaging | | 2019 | | PHYSIATRY [address] | PA-C [address] | (DEXA) | | | | [place], | [address] [place] | | | | | [place] [address] | [place] [address] | | | | | [phone] | [phone] | | | | | | | [...] | | 2020 | Visit | | MD [address] | | | | | | [place], | | | | | | [place] [address] | | | | | | [phone] | | | | | | | [...]
--- OUTSIDE RECORDS SUMMARY | ~2019-10-18 | XMS | Encounter Summary ---
Demographics + + + | Address | [address] | | | [place] [address] | + + + | Home Phone | | + + + | Preferred Language | Unknown | + + + | Marital Status | | + + + | Religion Affiliation | 1027 | + + + | Race | Unknown | + + + | Ethnic Group | Unknown | + + + Author + + + | Author | [facility] | | | and [place] | + + + | Organization | [facility] | | | and [...] Team Providers + +------+ + | Care Scientific Manager Name | Role | Phone | + +------+ + | Jesus Mijares MD | PCP | | + +------+ + Encounter Details +--------+ + + + + | Date | Type | Department | Care Team | Description | +--------+ + + + + | 12/02/ | Orders Only | [facility] [place] | Mariana Russo S, | Thoracic or | | 2015 | | PHYSIATRY [address] | [address] | lumbosacral neuritis | | | | [place], | | or radiculitis, | | | | [place] [address] | | unspecified (Primary | | | | [phone] | | Dx) | +--------+ + + + + Social [...] | | | | | | [place] [address] | | | | | | [phone] | | | | | | | [...] this encounter Results [place] SRINIVAS Lumbar Transforaminal (12/09/2014 4:26 PM PST) + + | Specimen | + + | | + + + + + | Narrative | Performed At | + + + | 12/09/2014 Bilateral Transforaminal Epidural Steroid Injections | [facility] | | Diagnosis: Lumbar radiculopathy ICD-9 Code 724.4 Rebecca Lua | [facility] | | Jonathan presents to the fluoroscopy suite for fluoroscopically-guided [facility] | | bilateral L4-L5 transforaminal epidural steroid injections as part | - IMAGING | | of conservative management for chronic pain with lumbar | | | radiculopathy and degenerative disk disease. After informed consent | | | was obtained, the patient lay in the prone position on the | | | fluoroscopy table. The areas were identified under [...] + | [address] | [address] | [place], [place] | [phone] | | [facility] | | [address] | | | - IMAGING | | | | + + + + + documented in this encounter Visit Diagnoses + + | Diagnosis | + + | Thoracic or lumbosacral neuritis or radiculitis, unspecified - Primary | + + documented in this encounter"
--- OUTSIDE RECORDS SUMMARY | ~2019-10-18 | XMS | Encounter Summary ---
Demographics + + + | Address | [address] | | | [place] [address] | + + + | Home Phone | | + + + | Preferred Language | Unknown | + + + | Marital Status | | + + + | Holiness Affiliation | 1027 | + + + | Race | Unknown | + + + | Ethnic Group | Unknown | + + + Author + + + | Author | [facility] | | | and [place] | + + + | Organization | [facility] | | | [...] Team Providers + +------+ + | Care Applications Manager Name | Role | Phone | [...] | Acute pain | [place], | [address] | | | | | of right | Nilson Jensen MD | [place], | | | | | shoulder | [address] | [place] [address] | | | | | Procedures | [address] [place] | Phone: | | | | | CT | [place], [place] | [phone] | | | | | Arthrogram | [address] | Fax: | | | | | Shoulder | Phone: | [phone] | | | | | Right | [phone] | | | | | | Called 1x | Fax: | | | | | | | [phone] | | +--------+--------+ + + + + Reason for Visit + + + | Reason | Comments | + + + | Results, Imaging | | + + + Encounter Details +--------+ + + + + | Date | Type | Department | Care Team | Description | +--------+ + + + + | 11/07/ | Telephone | [facility] | Christiano, | Results, Imaging | | 2017 | | PHYSIATRY [address] | GAMALIEL Saucedo [address] | | | | | [place], | [address] [facility], | | | | | [place] [address] | [place] [address] | | | | | [phone] | [phone] | | | | | | | [...] | | | | | | [place] [address] | | | | | | [phone] | | | | | | | [...] + documented as of this encounter Results CT Arthrogram Shoulder Right [...] + + | Performing | Address | City/State/[facility] | Phone Number | | Organization | | | | + +---------+ + + | [facility] | | | | + +---------+ + + FL Shoulder Inj Right for MRI or CT (12/03/2017 11:16 AM [facility]) + + | Specimen | + + | | + + + + + | Narrative | Performed At | + + + | CLINICAL INFORMATION: Severe right shoulder pain COMPARISON: | [facility] | | 11/06/2017 radiographs. PROCEDURE: Risks of the procedure | | | include pain, infection, bleeding, allergic reaction, and | | | nondiagnostic. An informed written consent was obtained. A final | | | time out was performed. The surface overlying the right | | | glenohumeral joint was sterilely prepped and draped. Under | | | fluoroscopic guidance, the entry site was selected. The area was | | | locally infiltrated with 2 ml of 1% lidocaine. A 22-gauge spinal | | | needle was advanced perpendicular to the fluoroscopic table and into | | | the right glenohumeral joint, confirmed with contrast injection under | | | fluoroscopy. Subsequently, 12 ml of a mixture of 10 mL Omnipaque | | | 240, 5 mL normal saline, and 5 mL 1% lidocaine was injected into the | | | joint. No immediate complication. IMPRESSION - | | | Technically successful right shoulder arthrogram. Refer to | | | subsequent CT arthrogram for detailed findings. Dictated and | | | Signed by: Gutierrez Velásquez MD Electronically signed: 12/03/2017 | | | 11:26 AM | | + + + + + | Procedure Note | + + | Jeanmarie, Rad Results In - 12/03/2017 11:30 AM PST CLINICAL INFORMATION: Severe right | | shoulder painCOMPARISON: 11/06/2017 radiographs.PROCEDURE: Risks of the procedure | | include pain, infection, bleeding, allergicreaction, and nondiagnostic. An informed | | written consent was obtained. A finaltime out was performed.The surface overlying the | | right glenohumeral joint was sterilely prepped anddraped. Under fluoroscopic guidance, | | the entry site was selected. The area waslocally infiltrated with 2 ml of 1% | | lidocaine. A 22-gauge spinal needle wasadvanced perpendicular to the fluoroscopic table | | and into the right glenohumeraljoint, confirmed with contrast injection under | | fluoroscopy. Subsequently, 12 mlof a mixture of 10 mL Omnipaque 240, 5 mL normal | | saline, and 5 mL 1% lidocainewas injected into the joint. No immediate complication. | | IMPRESSION - Technically successful right shoulder arthrogram. Refer tosubsequent CT | | arthrogram for detailed findings.Dictated and Signed by: Gutierrez Velásquez MD | | Electronically signed: 12/03/2017 11:26 AM | |of a mixture of 10 mL Omnipaque 240, 5 mL normal saline, and 5 mL 1% lidocaine | |was injected into the joint. | | | |No immediate complication. | | | | | |IMPRESSION - Technically successful right shoulder arthrogram. Refer to | |subsequent CT arthrogram for detailed findings. | | | |Dictated and Signed by: Gutierrez Velásquez MD | | Electronically signed: 12/03/2017 11:26 AM | + + + +---------+ + + [...]
--- OUTSIDE RECORDS SUMMARY | ~2019-10-18 | XMS | Encounter Summary ---
Demographics + + + | Address | [address] | | | [place] [address] | + + + | Home Phone | | + + + | Preferred Language | Unknown | + + + | Marital Status | | + + + | Tenriism Affiliation | 1027 | + + + | Race | Unknown | + + + | Ethnic Group | Unknown | + + + Author + + + | Author | [facility] | | | and [place] | + + + | Organization | [facility] | | [...] Team Providers + +------+ + | Care Welfare Specialist Name | Role | Phone | + [...] | | | | | | | Christiano, | | | | | | Trochanteric | Sheryl, | | | | | | bursitis of | PA-C [address] | | | | | | both hips | [address] | | | | | | Procedures | [place], [place] | | | | | | [place] Major | [address] | | | | | | Joint | Phone: | | | | | | Injection | [phone] | | | | | | Right | Fax: | | | | | | | [phone] | | +--------+--------+ + + + + Diagnostic/Screening (Routine) +--------+--------+ + + + + | Status | Reason | Specialty | Diagnoses / | Referred By | Referred To | | | | | Procedures | Contact | Contact | +--------+--------+ + + + + | Closed | | Radiology | Diagnoses | | [facility] | | | | | | Christiano, | [address] | | | | | Trochanteric | Sheryl, | [place], | | | | | bursitis of | PA-C [address] | [place] | | | | | both hips | [address] | [address] | | | | | Lumbar | [place], [place] | Phone: | | | | | radiculopath | [address] | [phone] | | | | | y | Phone: | Fax: | | | | | Procedures | [phone] | [phone] | | | | | [place] Major | Fax: | | | | | | Joint | [phone] | | | | | | Injection | | | | | | | Left MA | | | | | | | INJECT | | | | | | | ANES/STEROID | | | | | | | FORAMEN | | | | | | | LUMBAR/SACRA | | | | | | | L W IMG | | | | | | | GUIDE ,1 | | | | | | | LEVEL MA | | | | | | | ARTHROCENTES | | | | | | | IS | | | | | | | ASPIR&/INJ | | | | | | | MAJOR | | | | | | | JT/BURSA W/O | | | | | | | US CHG | | | | | | | FLUOROSCOPIC | | | | | | | GUIDANCE | | | | | | | NEEDLE | | | | | | | PLACEMENT | | | | | | | ADD ON MA | | | | | | | TRIAMCINOLON | | | | | | | E ACET INJ | | | | | | | NOS, 10 MG | | | | | | | appt 08/05- | | | | | | | Bilateral | | | | | | | bursa and | | | | | | | Bilat l4-5 | | | | | | | TFESI | | | +--------+--------+ + + + + Encounter Details +--------+ + + + + | Date | Type | Department | Care Team | Description | +--------+ + + + + | 05/15/ | Orders Only | [facility] [place] | Christiano, | Spinal stenosis of | | 2016 | | PHYSIATRY [address] | GAMALIEL Saucedo [address] | lumbar region - | | | | [place], | [address] [place], | L3/L4, adjacent | | | | [place] [address] | [place] [address] | segment disease | | | | [phone] | [phone] | (Primary Dx); Lumbar | | | | | | radiculopathy; | | | | | | Trochanteric | | | | | | bursitis of both | | | | | | hips | +--------+ + + + + Social [...] | | | | | | [place] [address] | | | | | | [phone] | | | | | | | [...] | +--------+ + + + + + +---------+--------+ + + | Name | Type | Priori | Associated Diagnoses | Order Schedule | | | | ty | | | + +---------+--------+ + + | FL Major Joint | Imaging | Routin | Trochanteric | Expected: | | Injection Left | | e | bursitis of both | 05/15/2017, Expires: | | | | | hips | 05/16/2018 | + +---------+--------+ + + documented as of this encounter Results [place] SRINIVAS Lumbar Transforaminal (08/05/2017 1:03 PM PDT) + + | Specimen | + + | | + + + + ---+ | Narrative | Performed At | + + ---+ | 08/05/2017 | [facility] | | Bilateral Transforaminal Epidural Steroid Injections and Right | [facility] | | Trochanteric Bursa Injection Diagnosis: Lumbar radiculopathy and | [facility] | | Trochanteric Bursitis Rebecca Castillo presents to the fluoroscopy | - IMAGING | | suite for fluoroscopically-guided bilateral L4-L5 [...] expectedAnesthesia: Local 1% Lidocaine | | |verified, including [...] + + | Performing | Address | City/State[facility] | Phone Number | | Organization | | | | + + + + + | [facility] | [address] | [place] | [phone] | | [facility] | | [address] | | | - IMAGING | | | | + + + + + FL Major Joint Injection Right (08/05/2017 1:03 PM PDT) + + | Specimen | + + | | + + + + ---+ | Narrative | Performed At | + + ---+ | | [facility] | | 08/05/2017 Bilateral Transforaminal Epidural Steroid Injections and | [facility] | | Right Trochanteric Bursa Injection Diagnosis: Lumbar radiculopathy and | [facility] | | Trochanteric Bursitis Rebecca Castillo presents to the fluoroscopy | - IMAGING | | suite for fluoroscopically-guided bilateral L4-L5 [...] + + + | [facility] | [address] | [place] | [phone] | | [facility] | | [address] | | | - IMAGING | | | | + + + + + documented in this encounter Visit Diagnoses + + | Diagnosis | + + | Spinal stenosis of lumbar region - L3/L4, adjacent segment disease - Primary Spinal | | stenosis, lumbar region, without neurogenic claudication | + + | Lumbar radiculopathy Thoracic or lumbosacral neuritis or radiculitis, unspecified | + + | Trochanteric bursitis [...]
--- OUTSIDE RECORDS SUMMARY | ~2019-10-18 | XMS | Encounter Summary ---
Demographics + + + | Address | [address] | | | [place] [address] | + + + | Home Phone | | + + + | Preferred Language | Unknown | + + + | Marital Status | | + + + | Muslim Affiliation | 1027 | + + + | Race | Unknown | + + + | Ethnic Group | Unknown | + + + Author + + + | Author | [facility] | | | and [place] | + + + | Organization | [facility] | | | [...] Team Providers + +------+ + | Care Order Booker Name | Role | Phone | + +------+ + | Jesus Mijares MD | PCP | | + +------+ + Encounter Details +--------+ + + + + | Date | Type | Department | Care Team | Description | +--------+ + + + + | 03/12/ | Orders Only | [facility] | Chuy Wills, | | | 2017 | | [address] | [address] | | | | | [facility] [place] | [place], [place] | | | | | [address] | [address] | | | | | [phone] | | | +--------+ + + + [...] DR | | | | | | [place], | | | | | | [place] [address] | | | | | | [phone] | | | | | | | [...] | + +--------+ + + + | PROTIME INR | Routin | 03/12/2017 | | Results for this | | | e | 3:32 PM | | procedure are in the | | | | PDT | | results section. | + +--------+ + + + | MAGNESIUM | Routin | 03/12/2017 | | Results for this | | | e | 3:32 PM | | procedure are in the | | | | PDT | | results section. | + +--------+ + + + | HEMOGLOBIN A1C | Routin | 03/12/2017 | | Results for this | | | e | 3:32 PM | | procedure are in the | | | | PDT | | results section. | + +--------+ + + + | BASIC METABOLIC | Routin | 03/12/2017 | | Results for this | | PANEL | e | 3:32 PM | | procedure are in the | | | | PDT | | results section. | + +--------+ + + + documented in this encounter Results Sandraime INR (03/12/2017 3:32 PM PDT) + + + + + + | Component | Value | Ref Range | Performed | Pathologist | | | | | At | Signature | + + + + + + | INR | 1.7Comment: REFERENCE | | EXTERNAL | | | | RANGE: 0.9 - 1.2 | | LAB | | | | NON-ANTICOAGULATED 2.0 - | | | | | | 3.0 ALL OTHER | | | | | | THERAPEUTIC INDICATIONS | | | | | | 2.5 - 3.5 MECHANICAL | | | | | | HEART VALVES, RECURRENT | | | | | | OR SYSTEMIC EMBOLISM | | | | + + + + + + + + | Specimen | + + | Blood specimen | | (specimen) | + + + +---------+ + + | Performing | Address | City/State/Zipcode | Phone Number | | Organization | | | | + +---------+ + + | EXTERNAL LAB | | | | + +---------+ + + Magnesium (03/12/2017 3:32 PM PDT) + +-------+ + + + | Component | Value | Ref Range | Performed | Pathologist | | | | | At | Signature | + +-------+ + + + | Magnesium | 2.2 | 1.7 - 2.4 mg/dL | EXTERNAL | | | | [...] | | | + +---------+ + + Hemoglobin A1C (03/12/2017 3:32 PM PDT) + + + + + + | Component | Value | Ref Range | Performed | Pathologist | | | | | At | Signature | + + + + + + | Hemoglobin | 7.3 (H)Comment: The | 4.0 - 6.0 % | EXTERNAL | | | A1c | [place] [facility] | | LAB | | | | Association considers a | | | | | | hemoglobin A1c result of | | | | | | <7.0% to be the goal of | | | | | | diabetic therapy. | | | | | | When results are | | | | | | consistently >8.0%, the | | | | | | ADA suggests | | | | | | reevaluation of the | | | | | | treatment regimen. The | | | | | | testing method used is | | | | | | certified traceable to | | | | | | the Diabetes Control and | | | | | | Complications Trial | | | | | | reference method. | | | | + + + + + + | Glycohemogl | 163Comment: The ADA | mg/dL | EXTERNAL | | | obin | considers an eAG result | | LAB | | | (GHb),Total | of LT 154 mg/dL to be | | | | | | the goal of diabetic | | | | | | therapy. Estimated | | | | | | Average Glucose | | | | | | calculated from | | | | | | hemoglobin A1c by use of | | | | | | the ADA recommended | | | | | | formula. | | | | + + + + + + + + | Specimen | + + | Blood specimen | | (specimen) | + + + +---------+ + + | Performing | Address | City/State/Zipcode | Phone Number | | Organization | | | | + +---------+ + + | EXTERNAL LAB | | | | + +---------+ + + Basic Metabolic Panel (03/12/2017 3:32 PM PDT) + + + + + + | Component | Value | Ref Range | Performed | Pathologist | | | | | At | Signature | + + + + + + | Na | 139 | 135 - 145 | EXTERNAL | | | | | mmol/L | LAB | | + + + + + + | K | 3.9 | 3.5 - 4.9 | EXTERNAL | | | | | mmol/L | LAB | | + + + + + + | Cl | 94 (L) | 99 - 109 mmol/L | EXTERNAL | | | | | | LAB | | + + + + + + | CO2 | 35 (H) | 23 - 32 mmol/L | EXTERNAL | | | | | | LAB | | + + + + + + | Anion Gap | 14 | 5 - 20 mmol/L | EXTERNAL | | | | | | LAB | | + + + + + + | Glucose, | 93 | 65 - 99 mg/dL | EXTERNAL | | | Fasting | | | LAB | | + + + + + + | BUN | 23 | 8 - 25 mg/dL | EXTERNAL | | | | | | LAB | | + + + + + + | Creatinine | 1.3 (H) | 0.50 - 1.00 | EXTERNAL | | | | | mg/dL | LAB | | + + + + + + | BUN/Creatin | 18 | | EXTERNAL | | | ine Ratio | | | LAB | | + + + + + + | Calcium | 9.7 | 8.5 - 10.5 | EXTERNAL | | | | | mg/dL | LAB | | + + + + + + | Estimated | 42 (L)Comment: GFR <60: | mL/min/1.73_m2 | EXTERNAL | | | GFR | CHRONIC KIDNEY DISEASE, | | LAB | | | | IF FOUND OVER A 3 MONTH | | | | | | PERIOD. GFR <15: KIDNEY | | | | | | FAILURE. FOR | | | | | | AMERICANS, MULTIPLY THE | | | | | | CALCULATED GFR BY 1.210. | | | | + + + [...]
--- OUTSIDE RECORDS SUMMARY | ~2019-10-18 | XMS | Encounter Summary ---
Demographics + + + | Address | [address] | | | [place] [address] | + + + | Home Phone | | + + + | Preferred Language | Unknown | + + + | Marital Status | | + + + | Gnosticism Affiliation | 1027 | + + + | Race | Unknown | + + + | Ethnic Group | Unknown | + + + Author + + + | Author | [facility] | | | and [place] | + + + | Organization | [facility] | | | and [...] Team Providers + +------+ + | Care Medical Sales Representative Name | Role | Phone | + +------+ + | Jesus Mijares MD | PCP | | + +------+ + Reason for Visit + + + | Reason | Comments | + + + | CHF Management | | + + + Encounter Details +--------+ + + + + | Date | Type | Department | Care Team | Description | +--------+ + + + + | 08/31/ | Telephone | [facility] | GoelJanuary, | CHF Management | | 2019 | | CARDIOLOGY [place] | [address] | | | | | [address] | [address] [place], | | | | | [place], [place] | [place] [address] | | | | | [address] | [phone] | | | | | [phone] | | | +--------+ + + + [...] | | | | | | [place] [address] | | | | | | [phone] | | | | | | | [...]
--- OUTSIDE RECORDS SUMMARY | ~2019-10-18 | XMS | Encounter Summary ---
Demographics + + + | Address | [address] | | | [place] [address] | + + + | Home Phone | | + + + | Preferred Language | Unknown | + + + | Marital Status | | + + + | Worship Affiliation | 1027 | + + + | Race | Unknown | + + + | Ethnic Group | Unknown | + + + Author + + + | Author | [facility] | | | and [place] | + + + | Organization | [facility] | | | [...] Team Providers + +------+ + | Care Amusement Park Worker Name | Role | Phone | + +------+ + | Jesus Mijares MD | PCP | | + +------+ + Encounter Details +--------+ + + + + | Date | Type | Department | Care Team | Description | +--------+ + + + + | 09/03/ | Orders Only | [facility] [place] | Bogdanomeghancz, | Coagulation defect | | 2016 | | PHYSIATRY [address] | [address] | ([facility]) (Primary Dx) | | | | [place], | [address] [place], | | | | | [place] [address] | [place] [address] | | | | | [phone] | [phone] | | | | | | | [...] | | | | | | [place] [address] | | | | | | [phone] | | | | | | | [...] | | + +------+--------+ + + | Protime INR | Lab | Routin | Coagulation defect | 1 Occurrences | | | | e | (HCC) | starting 09/03/2016 | | | | | | until 09/03/2017 | + +------+--------+ + + documented as of this encounter Visit Diagnoses + + | Diagnosis | + + | Coagulation defect (HCC) - Primary Other and unspecified coagulation defects | + + documented in this encounter"
--- OUTSIDE RECORDS SUMMARY | ~2019-10-18 | XMS | Encounter Summary ---
Demographics + + + | Address | [address] | | | [place] [address] | + + + | Home Phone | | + + + | Preferred Language | Unknown | + + + | Marital Status | | + + + | Pentecostalism Affiliation | 1027 | + + + | Race | Unknown | + + + | Ethnic Group | Unknown | + + + Author + + + | Author | [facility] | | | and [place] | + + + | Organization | [facility] | | [...] Team Providers + +------+ + | Care Patient Relations Manager Name | Role | Phone | + +------+ + | Jesus Mijares MD | PCP | | + +------+ + Encounter Details +--------+ + + + + | Date | Type | Department | Care Team | Description | +--------+ + + + + | 09/11/ | Hospital | [facility] | [place], | Sacroiliitis ([facility]) | | 2016 | Encounter | MED CTR XRAY [address] | [address] | (Primary Dx); | | | | [place] | [facility], | Sacroiliitis, not | | | | [place] [address] | [place] [address] | elsewhere classified | | | | [phone] | [phone] | ([facility]); Lumbar | | | | | | radiculopathy; | | | | | Lithographer Helper, [facility] | DEGENERATIVE DISC | | | | | | DISEASE, LUMBAR | | | | | | SPINE; Spinal | | | | | | stenosis of lumbar | | | | | | region - L3/L4, | | | | | | adjacent segment | | | | | | disease | +--------+ + + + + Social [...] +---------+ + + | Blood Pressure | 133/102 | 09/11/2016 2:00 PM | | | | | PST | | + +---------+ + + | Pulse | 140 | 09/11/2016 2:00 PM | | | | | PST | | + +---------+ + + | [...] + + + +---------+ + + | allopurinol | Take 100 mg by mouth | | 0 | | | | (ZYLOPRIM) 100 mg | Daily. | | | | 8 | | tablet | | | | [...] | | 0 | | | | ezetimibe-simvastati | mouth nightly. | | | | 8 | | n (VYTORIN) 10-40 MG | | | | | | | per tablet | | | | | | + + + +---------+ + + | tiZANidine | Take 4 mg by mouth | | 0 | | | | (ZANAFLEX) 4 mg | every 6 hours as | | | | 7 | | tablet | needed. | | [...] 11/17/ | Office | Cardiology | Rajendra Fwoler, | | | 2019 | Visit | | MD [address] | | | | | | [place], | | | | | | [place] [address] | | | | | | [phone] | | | | | | | [...] + | FL SACROILIAC | Routin | 09/11/2016 | Sacroiliitis, not | Results for this | | INJECTION RIGHT | e | 2:08 PM | elsewhere classified | procedure are in the | | | | PST | (HCC) | results section. | + +--------+ + + + | FL EPIDURAL STEROID | Routin | 09/11/2016 | Lumbar | Results for this | | INJECTION LUMBAR | e | 2:08 PM | radiculopathy | procedure are in the | | TRANSFORAMINAL | | PST | DEGENERATIVE DISC | results section. | | | | | DISEASE, LUMBAR | | | | | | SPINE Spinal | | | | | | stenosis of lumbar | | | | | | region - L3/L4, | | | | | | adjacent segment | | | | | | disease | | + +--------+ + + + documented in this encounter Results FL SRINIVAS Lumbar Transforaminal (09/11/2016 2:08 PM PST) + + | Specimen | + + | | + + + + + | Narrative | Performed At | + + + | 09/11/2016 Bilateral Transforaminal Epidural Steroid Injections | [facility] | | Diagnosis: Lumbar radiculopathy ICD-10 Code M54.16 Rebecca | [facility] | | Chanell Castillo presents to the fluoroscopy suite for | [facility] | | fluoroscopically-guided bilateral L4-L5 transforaminal [...] + + | Performing | Address | City/State/[facility] | Phone Number | | Organization | | | | + + + + + | [facility] | [address] | [place], [place] | [phone] | | [facility] | | [address] | | | - IMAGING | | | | + + + + + FL Sacroiliac Injection Right (09/11/2016 2:08 PM PST) + + | Specimen | + + | | + + + + + | Narrative | Performed At | + + + | 09/11/2016 Sacroiliac Joint Injection Clinical History: | [facility] | | Sacroiliitis ICD-10 M46.1 Rebecca Chanell Castillo presents to the | [facility] | | fluoroscopy suite for a fluoroscopically guided right sacroiliac [facility] | | joint steroid injection as [...] [address] | [place] | [phone] | | [facility] | | [address] | | | - IMAGING | | | | + + + + + documented in this encounter Visit Diagnoses + + | Diagnosis | + + | Sacroiliitis (HCC) - Primary Sacroiliitis, not elsewhere classified | + + | Sacroiliitis, not elsewhere classified (HCC) Sacroiliitis, not elsewhere classified | + + | Lumbar radiculopathy Thoracic or lumbosacral neuritis or radiculitis, unspecified | + + | DEGENERATIVE DISC DISEASE, LUMBAR SPINE Degeneration of lumbar or lumbosacral | | intervertebral disc | + + | Spinal stenosis of lumbar region - L3/L4, adjacent segment disease Spinal stenosis, | | lumbar region, without neurogenic claudication | + + documented in this encounter Administered Medications + +--------+ +-------+------+------+ | Medication Order | MAR | Action | Dose | Rate | Site | | | Action | Date | | | | + +--------+ +-------+------+------+ | betamethasone (CELESTONE | Given | 09/11/20 | 12 mg | | | | SOLUSPAN) injection 12 mg 12 mg, | | 16 2:16 | | | | | Other, ONCE, e 09/11/16 at | | PM PST | | | | | 1415, For 1 dose, Shake well. Not | | | | | | | for IV use., | | | | | | + +--------+ +-------+------+------+ +---+---+ | | | +---+---+ + +-------+ +-------+---+---+ | iohexol (OMNIPAQUE 300) 300 | Given | 09/11/20 | 4 mLs | | | | mg/mL injection 4 mL 4 mL, | | 16 2:14 | | | | | Other, ONCE, 09/11/16 at | | PM PST | | | | | 1415, For 1 dose | | | | | | + +-------+ +-------+---+---+ +---+---+ | | | +---+---+ + +-------+ +-------+---+---+ | lidocaine (PF) 1% injection 2 | Given | 09/11/20 | 2 mLs | | | | mL 2 mL, Other, ONCE, Tue | | 16 2:17 | | | | | 09/11/16 at 1415, For 1 dose | | PM PST | | | | + +-------+ +-------+---+---+ +---+---+ | | | +---+---+ + +-------+ +-------+---+---+ | lidocaine 1% injection 2 mL 2 | Given | 09/11/20 | 2 mLs | | | | mL, Other, ONCE, 09/11/16 at | | 16 2:20 | | | | | 1415, For 1 dose | | PM PST | | | | + +-------+ +-------+---+---+ +---+---+ | | | +---+---+ + +-------+ +--------+---+---+ | lidocaine buffered 1% injection | Given | 09/11/20 | 10 mLs | | | | 10 mL 10 mL, Other, ONCE, Tue | | 16 2:12 | | | | | 09/11/16 at 1415, For 1 dose | | PM PST | | | | + +-------+ +--------+---+---+ +---+---+ | | | +---+---+ + +-------+ +-------+---+---+ | triamcinolone acetonide | Given | 09/11/20 | 40 mg | | | | (KENALOG-40) 40 mg/mL injection | | 16 2:20 | | | | | 40 mg 40 mg, Other, ONCE, Tue | | PM PST | | | | | 09/11/16 at 1415, For 1 dose, | | | | | | | Shake well. Not for IV use., | | | | | | + +-------+ +-------+---+---+ +---+---+ | | | +---+---+ documented in this encounter"
--- OUTSIDE RECORDS SUMMARY | ~2019-10-18 | XMS | Encounter Summary ---
Demographics + + + | Address | [address] | | | [place] [address] | + + + | Home Phone | | + + + | Preferred Language | Unknown | + + + | Marital Status | | + + + | Christian Affiliation | 1027 | + + + [...] Team Providers + +------+ + | Care Steam Finisher Name | Role | Phone | + [...] Description | +--------+---------+ + + + | 08/11/ | Office | [facility] | [place], | Spinal stenosis of | | 2014 | Visit | PHYSIATRY [address] | [address] | lumbar region - | | | | [place], | [facility], | L3/L4, adjacent | | | | [place] [address] | [place] [address] | segment disease | | | | [phone] | [phone] | (Primary Dx); | | | | | | Spondylolisthesis; | | | | | | SACROILIITIS; | | | | | | Chronic back pain; | | | | | | DEGENERATIVE DISC | | | | | | DISEASE, LUMBAR | | | | | | SPINE | +--------+---------+ + + + Social History [...] + + + | Blood Pressure | 176/97 | 08/11/2015 10:29 AM | | | | | PDT | | + + + + + | Pulse | 52 | 08/11/2015 10:29 AM | | | | | PDT [...] + + + + | Weight | 94.8 kg (209 lb) | 08/11/2015 10:29 AM | | | | | PDT | | + + + + + | Height | 162.6 cm (5' 4") | 08/11/2015 10:29 AM | | | | | PDT | | + + + + + | Body Mass Index | 35.87 | 08/11/2015 10:29 AM | | | | | PDT | | + + + + + documented in this encounter Patient Instructions Patient Instructions Sheryl Alvarado PA-C - 08/11/2015 10:47 AM PDTForaminal Stenosis/ Radicular Pain: Foraminal stenosis is a narrowing of the spinal foramen, the hole through which passes a s katlin nerve as it exits the spine. It is usually a form of degenerative spine disease which occurs slowly over time with wear and tear of the spinal column. Arthritic changes of the s pine, a herniated discs, soft tissue swelling and bony growth can all impinge on the formal foramen and compress the nerve. Because the narrowing (stenosis) of the foramen pinches a nerve, the primary symptoms relat ed to this disorder is directly related to that nerve which is affected. This obviously vari es depending on which foramina are involved. The pinched nerve can lead to basically two cl asses of symptoms. Symptoms include pain in the distribution of that nerve as well as numbne ss, tingling and or weakness can occur. Steroids are a very strong anti-inflammatory, this helps reduce pain by reducing swelling. Complications of steroids are bleeding, infection, and an increase of blood sugars if you are diabetic. halfway risk can lead to osteoporosis which is why we limited the number of injections to 3 times per year. With an epidural injection, the nerve root that comes out of the spine and travels down your leg is targeted. The procedure is about 20 minutes long . You will lie on your back while x-rays are taken. Once the region is marked, it is numbe d and then injected with steroids. Follow-up at the hospital thirty minutes before [...] of the procedure you must provide a trash collector truck driver to take you home. For all procedur es it is recommended that someone else drive you home. documented in this encounter Progress Notes Sheryl Alvarado PA-C - 08/11/2015 11:11 AM PDTFormatting of this note might be differe nt from the original. CHIEF COMPLAINT: Chief Complaint Patient presents with Back Pain low back pain radiating into bilateral legs HISTORY OF PRESENT ILLNESS: The patient is a 75 y.o. female being seen today in follow-up for complaints of low back pa in. The patient has been seen for this complaint in the past, with initial visit started b tomi Chaudhry. Previously it was recommended that she receive bilateral L4/L5 epidural i njection for spinal stenosis. She last received this in 2014, she reports it helped greatly, unfortunately her pain has returned. She describes the pain as constant dull with occasional sharpness depending on movement. Her symptoms worsen with bending, twisting, sleeping. Her symptoms improve with rest. The patient does describe numbness of the bilateral lower extremities, but reports to have diabetic neuropathy, and does report this improve after the surgery. She does report weakness of the bilateral legs, but reports again this did improve after th e surgery. The patient does not report recent falls or trauma. She does not have bowel and bladder dysfunction. She does not have saddle anesthesia. Treatments for these complaints have included 8 weeks of physical therapy after her lumbar fusion. Lumbar fusion of L4/L5, use of hydrocodone 3x/day and flexeril, prior L4/L5 epidura l injections, prior SI injections. Patient's medications, allergies, past medical, surgical, social and family histories were reviewed and updated as appropriate. CURRENT MEDICATIONS: Current Outpatient Prescriptions Medication Sig Dispense Refill acebutolol (SECTRAL) 200 mg capsule Take 200 mg by mouth 2 times daily. acetaminophen (TYLENOL) 500 mg tablet Take 500 mg by mouth every 6 hours as needed for Pain. amitriptyline (ELAVIL) 25 mg tablet Take 25 mg by mouth nightly. glimepiride (AMARYL) 4 mg tablet Take 4 mg by mouth 2 times daily. hydrochlorothiazide (MICROZIDE) 12.5 MG capsule Take 12.5 mg by mouth Daily. HYDROcodone-acetaminophen (NORCO) 10-325 mg per tablet Take 10-325 mg by mouth 3 times daily as needed. Ibuprofen (ADVIL PO) CAPS as needed lisinopril (PRINIVIL,ZESTRIL) 40 MG tablet Take 40 mg by mouth Daily. tiZANidine (ZANAFLEX) 4 mg tablet Take 4 mg by mouth every 6 hours as needed. No current facility-administered medications for this visit. [...] No abnormal bleeding PHYSICAL EXAMINATION: Filed Vitals: 08/11/15 1029 BP: 176/97 Pulse: 52 PainSc: 9 PainLoc: Back Body mass index is 35.86 kg/(m^2). GENERAL: The patient is well developed and [...] unlabored respirations. HEART: There is lower extremity edema. ABDOMEN: Soft, non-tender, non-distended, and without palpable masses. The patient is not obese. NEUROLOGIC: The patient is awake, alert, and oriented to time, place, person. She follows simple and complex commands. Her speech is fluent. She comprehends speech well. She has no apparent deficits with short or care home memory. She has appropriate fund of knowledge Cranial nerves 2-12 appear grossly intact. Sensory exam does not show diminished sensation to light touch in the lower extremities. REFLEX: RIGHT LEFT PATELLAR 0 0 ACHILLES 0 0 MUSCULOSKELETAL There is no tenderness in the midline of the cervical or thoracic spine. T here is no major palpable deformity of the [...] nal stenosis and multi-level facet arthritis. ASSESSMENT: Encounter Diagnoses Name Primary? Spinal stenosis of lumbar region - L3/L4, adjacent segment disease Yes Spondylolisthesis SACROILIITIS Chronic back pain DEGENERATIVE DISC DISEASE, LUMBAR SPINE PLAN: 1. The patient has had significant conservative care including medications (NSAIDS and sam cotics), PT (multiple sessions over the years) and direct care professional. Unfortunately she cont inues to have significant discomfort. It appears to me that the pain is primarily coming fr om the central spinal stenosis at L3/L4. I did feel that she would be a good candidate for interventional procedures as the last epidural injection greatly helped. I offered bilatera l L4/L5 epidural injections to be done in the near future. 2. Medications have been reviewed at today's visit with no changes made at this time. 3. The patient will follow up 2 weeks after the injection. ELECTRONICALLY SIGNED BY: Sheryl Alvarado PA-C, 08/11/2015 documented in t his encounter Plan of Treatment +--------+ + + + + | Date | Type | Specialty | Care Team | Description | +--------+ + + + + | 11/17/ | Office | Cardiology | Rajendra Fowler, | | | 2019 | Visit | | MD [address] | | | | | | [place], | | | | | | [place] [address] | | | | | | [phone] | | | | | | | | +--------+ + + + + | 12/23/ | Procedure | Cardiology | | | | 2019 | visit | | | | +--------+ + + + + | 03/24/ | Procedure | Cardiology | | | | 2019 | visit | | | | +--------+ + + + + | 06/23/ Procedure | Cardiology | | | | 2020 | visit | | | | +--------+ + + + + documented as of this encounter Results FL SRINIVAS Lumbar Transforaminal (08/31/2015 3:30 PM PST) + + | Specimen | + + | | + + + + + | Narrative | Performed At | + + + | 08/31/2015 Bilateral Transforaminal Epidural Steroid Injections | [facility] | | Diagnosis: Lumbar radiculopathy ICD-10 Code M54.16 Rebecca | [facility] | | Chanell Jonathan presents to the fluoroscopy suite for | [facility] | | fluoroscopically-guided bilateral L4-L5 transforaminal [...] [address] | [place] | [phone] | | [facility] | | [address] | | | - IMAGING | | | | + + + + + documented in this encounter Visit Diagnoses + + | Diagnosis | + + | Spinal stenosis of lumbar region - L3/L4, adjacent segment disease - Primary Spinal | | stenosis, lumbar region, without neurogenic claudication | + + | Spondylolisthesis Congenital spondylolisthesis | + + | SACROILIITIS Sacroiliitis, not elsewhere classified | + + | Chronic back pain Backache, unspecified | + + | DEGENERATIVE DISC DISEASE, LUMBAR SPINE Degeneration of lumbar or lumbosacral | | intervertebral disc | + + documented in this encounter
--- OUTSIDE RECORDS SUMMARY | ~2019-10-18 | XMS | Encounter Summary ---
Demographics + + + | Address | [address] | | | [place] [address] | + + + | Home Phone | | + + + | Preferred Language | Unknown | + + + | Marital Status | | + + + | Druze Affiliation | 1027 | + + + | Race | Unknown | + + + | Ethnic Group | Unknown | + + + Author + + + | Author | [facility] | | | and [place] | + + + | Organization | [facility] | | | [...] Team Providers + +------+ + | Care Bleach Maker Name | Role | Phone | [...] | | | [place], | [address] | | | | | Trochanteric | Sheryl, | [place], | | | | | bursitis of | PA-C [address] | [place] | | | | | right hip | [address] | [address] | | | | | Procedures | [place] | Phone: | | | | | [place] | [address] | [phone] | | | | | and/or Inj | Phone: | Fax: | | | | | Major Joint | [phone] | [phone] | | | | | Right | Fax: | | | | | | | [phone] | | +--------+--------+ + + + + Reason for Visit + + + | Reason | Comments | + + + | Back Pain | low back pain radiating into right leg | + + + Encounter Details +--------+---------+ + + + | Date | Type | Department | Care Team | Description | +--------+---------+ + + + | 02/06/ | Office | [facility] | Christiano, | Lumbar radiculopathy | | 2017 | Visit | PHYSIATRY [address] | GAMALIEL Saucedo [address] | (Primary Dx); | | | | [place], | [facility], | Spinal stenosis of | | | | [place] [address] | [place] [address] | lumbar region | | | | [phone] | [phone] | without neurogenic | | | | | | claudication; | | | | | | DEGENERATIVE DISC | | | | | | DISEASE, LUMBAR | | | | | | SPINE; Trochanteric | | | | | | bursitis of right | | | | | | hip; Complete tear | | | | | [...] + + + | Blood Pressure | 106/67 | 02/06/2018 10:49 AM | | | | | PDT | | + + + + + | Pulse | 77 | 02/06/2018 10:49 AM | | | | | PDT [...] Weight | 88.5 kg (195 lb) | 02/06/2018 10:49 AM | | | | | PDT | | + + + + + | Height | 162.6 cm (5' 4") | 02/06/2018 10:49 AM | | | | | PDT | | + + + + + | Body Mass Index | 33.47 | 02/06/2018 10:49 AM | | | | | PDT | | + + + + + documented in this encounter Patient Instructions Patient Instructions Sheryl Alvarado PA-C - 02/06/2018 10:40 AM PDT Follow up in 4 months Remember to stop warfarin 3 days before procedure Follow-up at the hospital thirty minutes before [...] of the procedure you must provide a line haul truck driver to take you home. For all procedur es it is recommended that someone else drive you home. What is bursitis? A bursa is a fluid-filled sac that helps cushion the muscles, tendons, and bonesaround a joint. When a bursa becomes inflamed, it s called bursitis. Common symptoms of bursitis in clude pain, tenderness, and swelling that limits movement of the joint. What causes bursitis? Bursitis is most often caused by overuse of a joint. The repeated movements irritate the bu rsa and may cause it to swell. When that happens, other surrounding tissuesmay become infl owen orhave less space to move. Bursitis is most common in large joints such as the knee, shoulder, and hip. Nonsurgical treatment involves both rest and exercise. How is bursitis treated? To help reduce pain and swelling, your healthcare provider may recommend one or more of the following: Rest gives the bursa time to heal. This means limiting activities that put stress on the joint. Anti-inflammatory medications help reduce painful swelling. In some cases, this can incl ude injections of cortisone or other steroid medicines into the bursa. Splints and support bandages improve your comfort and allow the bursa to heal. Physical therapy may be used to increase flexibility and strengthen muscles that support the joint. Aspirationremoves extra fluid from the bursa using a needle. This can help your health care provider find out what is causing your bursitis. For example, it might be an infection or overuse. Surgery can be used to remove an inflamed or infectedbursa. This is rarely needed. Date Last Reviewed: 06/24/201519998632-2125 [employer]. [address] [place] [address], [place] [address]. All righ ts reserved. This information is not intended as a substitute for professional medical care. Always follow your healthcare professional's instructions. documented in this encounter Progress Notes Sheryl Alvarado PA-C - 02/06/2018 10:40 AM PDTFormatting of this note might be differe nt from the original. CHIEF COMPLAINT: Chief Complaint Patient presents with Back Pain low back pain radiating into right leg HISTORY OF PRESENT ILLNESS: The patient is [...] injection. She l ast received this last 11/06/2017 She reports having had 60% relief for 3 months, her symptom s recently worsened. She then had a right subacromial shoulder injection 01/03/2018 for a co mplete supraspinatus tear. She reports only 1 month of relief and is hoping for another one . She describes the pain as constant dull [...] in [address] Yong Pena in [place], use of hydrocodone 3 x/day and flexeril, [...] tablet Take 1 tablet by mouth every 6 h ours as needed. losartan (COZAAR) 25 [...] HEMATOLOGIC/LYMPHATIC: No abnormal bleeding PHYSICAL EXAMINATION: Vitals: 02/06/18 1049 BP: 106/67 Pulse: 77 PainSc: 8 PainLoc: Back GENERAL: The patient [...] has no apparent deficits with short or meterman memory. She has appropriate fund of knowledge [...] radiculopathy 2. Spinal stenosis of lumbar region without neurogenic claudication 3. DEGENERATIVE DISC DISEASE, LUMBAR SPINE 4. Trochanteric bursitis of right hip 5. Complete tear of right rotator cuff PLAN: 1. Patient will undergo L4/L5 bilateral epidural injections today. 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 Unfortunately she continue s to have significant [...] with moderate relief but pain has returned. Patient will return for righ t shoulder injection at her next same day injection appointment in approximately 3 months. Karla bustillo does not want surgery due to her comorbid conditions. She has noted mild increased RO M over recent weeks which she attributes to home exercises and stretches. ELECTRONICALLY SIGNED BY: Sheryl Alvarado PA-C, 02/06/2018 documented in this encounter Plan of Treatment [...] | | | | | | [place] [address] | | | | | | [phone] | | | | | | | [...] + | Performing | Address | City/State/[facility] | Phone Number | | [...]
--- OUTSIDE RECORDS SUMMARY | ~2019-10-18 | XMS | Encounter Summary ---
Demographics + + + | Address | [address] | | | [place] [address] | + + + | Home Phone | | + + + | Preferred Language | Unknown | + + + | Marital Status | | + + + | Christian Affiliation | 1027 | + + + | Race | Unknown | + + + | Ethnic Group | Unknown | + + + Author + + + | Author | [facility] | | | and [place] | + + + | Organization | [facility] | | [...] Team Providers + +------+ + | Care Framework Developer Name | Role | Phone | + +------+ + | Jesus Mijares MD | PCP | | + +------+ + Encounter Details +--------+ + + + + | Date | Type | Department | Care Team | Description | +--------+ + + + + | 06/11/ | Hospital | [facility] | [place]aid[place]o, | Bursitis, hip, right | | 2016 | Encounter | MED CTR XRAY [address] | [place]AMAL[address] Saucedo [address] | (Primary Dx); | | | | [place] | [facility], | Spinal stenosis of | | | | [place] [address] | [place] [address] | lumbar region - | | | | [phone] | [phone] | L3/L4, 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; | | | | | [facility], [facility] | Chronic bilateral | | | | | | low back pain with | | | | | | sciatica, sciatica | | | | | | laterality | | | | | | unspecified; | | | | | | Scoliosis of lumbar | | | | | | spine, unspecified | | | | | | scoliosis type; | | | | | | Lumbar | | | | | | [...] +---------+ + + | Blood Pressure | 192/84 | 06/11/2016 3:30 PM | | | | | PDT [...] + + + +---------+ + + | Dabigatran | Take by mouth 2 | | 0 | | | | Etexilate Mesylate | times daily. | | | | 6 | | (PRADAXA PO) | | | | | | + [...] | | | | | | [place] [address] | | | | | | [phone] | | | | | | | [...] + | FL ASPIRATION | Routin | 06/11/2016 | Spinal stenosis of | Results for this | | INJECTION MAJOR | e | 3:18 PM | lumbar region - | procedure are in the | | JOINT RIGHT | | PDT | L3/L4, adjacent | results section. | | | | | segment disease | | | | | | Chronic bilateral | | | | | | low back pain with | | | | | | sciatica, sciatica | | | | | | laterality | | | | | | unspecified | | | | | | Scoliosis of lumbar | | | | | | spine, unspecified | | | | | | scoliosis type | | | | | | Lumbar radiculopathy | | | | | | Trochanteric | | | | | | bursitis of right | | | | | | hip | | + +--------+ + + + | FL EPIDURAL STEROID | Routin | 06/11/2016 | Spinal stenosis of | Results for this | | INJECTION LUMBAR | e | 3:18 PM | lumbar region - | procedure are in the | | TRANSFORAMINAL | | PDT | L3/L4, adjacent | results section. | | | | | segment disease | | | | | | Chronic bilateral | | | | | | low back pain with | | | | | | sciatica, sciatica | | | | | | laterality | | | | | | unspecified | | | | | | Scoliosis of lumbar | | | | | | spine, unspecified | | | | | | scoliosis type | | | | | | Lumbar radiculopathy | | | | | | Trochanteric | | | | | | bursitis of right | | | | | | hip | | + +--------+ + + + documented in this encounter Results FL Major Joint Injection Right (06/11/2016 3:18 PM PDT) + + | Specimen | + + | | + + + + + | Narrative | Performed At | + + + | 06/11/2016 Bilateral Transforaminal Epidural Steroid Injections and | [facility] | | Trochanteric Bursa Injection on Right Diagnosis: Lumbar | [facility] | | radiculopathy and Trochanteric bursitis ICD-10 Codes M54.16 and | [facility] | | M70.61 Rebecca Castillo presents to the fluoroscopy suite for | - IMAGING | | fluoroscopically-guided bilateral L4-L5 transforaminal epidural [...] fluoroscopic guidance. Confirmation into the epidural space | | | was obtained with infusion of approximately 1 [...] also performed with fluoroscopic | | | guidance for chronic pain and trochanteric bursitis. The area for | | | the injection was located by palpation and fluoroscopic guidance then | | | marked over the lateral hip. The area was then sterilized with | | | chlorhexidine scrub before inserting a 1-1/2 inch 27-gauge needle | | | into the region to administer approximately 2 mL of buffered 1% | | | lidocaine for local anesthesia. Then a 22 gauge spinal needle was | | | advanced down to the greater trochanter under [...] The needle was removed and the area | | | was cleaned and bandaged. The patient tolerated the procedures | | | well without complications. Pre- and post-procedure blood pressures | | | were stable. The patient was given verbal as well as written | | | follow-up instructions. Prior to the start of the procedure, | | | the following were performed and/or verified, including correct | | | patient identity, correct site/side marked and visible, agreement on | | | the procedure to be done, correct patient positioning and an accurate | | | procedure consent form. Any safety precautions based on clinical | | | history and/or medication use have been addressed. I personally | | | performed the procedure above. Estimated blood loss: Minimal | | | Complications: None Findings: As expected Anesthesia: Local 1% | | | Lidocaine Reading Physician: Nilson Chaudhry MD | | + + + + + + + + | Performing | Address | City/State/Zipcode | Phone Number | | Organization | | | | + + + + + | [facility] | [address] | [place] | [phone] | | [facility] | | [address] | | | - IMAGING | | | | + + + + + FL SRINIVAS Lumbar Transforaminal (06/11/2016 3:18 PM PDT) + + | Specimen | + + | | + + + + + | Narrative | Performed At | + + + | 06/11/2016 Bilateral Transforaminal Epidural Steroid Injections and | [facility] | | Trochanteric Bursa Injection on Right Diagnosis: Lumbar | [facility] | | radiculopathy and Trochanteric bursitis ICD-10 Codes M54.16 and | [facility] | | M70.61 Rebecca Chanlel Castillo presents to the fluoroscopy suite for | - IMAGING | | fluoroscopically-guided bilateral L4-L5 transforaminal epidural [...] also performed with fluoroscopic | | | guidance for chronic pain and trochanteric bursitis. The area for | | | the injection was located by palpation and fluoroscopic guidance | | | then marked over the lateral hip. The area was then sterilized | | | with chlorhexidine scrub before inserting a 1-1/2 inch 27-gauge | | | needle into the region to administer approximately 2 mL of buffered | | | 1% lidocaine for local anesthesia. Then a 22 gauge spinal needle was | | | advanced down to the greater trochanter under [...] The needle was removed and the area | | | was cleaned and bandaged. The patient tolerated the procedures | | | well without complications. Pre- and post-procedure blood pressures | | | were stable. The patient was given verbal as well as written | | | follow-up instructions. Prior to the start of the procedure, | | | the following were performed and/or verified, including correct | | | patient identity, correct site/side marked and visible, agreement on | | | the procedure to be done, correct patient positioning and an | | | accurate procedure consent form. Any safety precautions based on | | | clinical history and/or medication use have been addressed. I | | | personally performed the procedure above. Estimated blood loss: | | | Minimal Complications: None Findings: As expected Anesthesia: Local | | | 1% Lidocaine | | + + + + + + + + | Performing | Address | City/State[facility] | Phone Number | | Organization | | | | + + + + + | [facility] | [address] | [place] | [phone] | | [facility] | | [address] | | | - IMAGING | | | | + + + + + documented in this encounter Visit Diagnoses + + | Diagnosis | + + | Bursitis, hip, right - Primary | + + | Spinal stenosis of lumbar region - L3/L4, adjacent segment disease Spinal stenosis, | | lumbar region, without neurogenic claudication | + + | Chronic bilateral low back pain with sciatica, sciatica laterality unspecified | + + | Scoliosis of lumbar spine, unspecified scoliosis type | + + | Lumbar radiculopathy Thoracic [...] +-------+------+------+ | betamethasone (CELESTONE | Given | 06/11/20 | 12 mg | | | | SOLUSPAN) injection 12 mg 12 mg, | | 16 3:19 | | | | | Other, ONCE, Sat06/11/16 at | | PM PDT | | | | | 1530, For 1 dose, Shake well. Not | | | | | | | for IV use., Radiology | | | | | | + +--------+ +-------+------+------+ +---+---+ | | | +---+---+ + +-------+ +-------+---+---+ | iohexol (OMNIPAQUE 300) 300 | Given | 06/11/20 | 3 mLs | | | | mg/mL injection 3 mL 3 mL, | | 16 3:17 | | | | | Other, ONCE, Sat06/11/16 at 1530, | | PM PDT | | | | | For 1 dose, Radiology | | | | | | + +-------+ +-------+---+---+ +---+---+ | | | +---+---+ + +-------+ +-------+---+---+ | lidocaine (PF) 1% injection 2 | Given | 06/11/20 | 2 mLs | | | | mL 2 mL, Other, ONCE, Mon | | 16 3:20 | | | | | 06/11/16 at 1530, For 1 dose, | | PM PDT | | | | | Radiology | | | | | | + +-------+ +-------+---+---+ +---+---+ | | | +---+---+ + +-------+ +-------+---+---+ | lidocaine 1% injection 2 mL 2 | Given | 06/11/20 | 2 mLs | | | | mL, Other, ONCE, 06/11/16 at | | 16 3:23 | | | | | 1530, For 1 dose, Radiology | | PM PDT | | | | + +-------+ +-------+---+---+ +---+---+ | | | +---+---+ + +-------+ +-------+---+---+ | lidocaine buffered 1% injection | Given | 06/11/20 | 5 mLs | | | | 5 mL 5 mL, Other, ONCE, Mon | | 16 3:14 | | | | | 06/11/16 at 1530, For 1 dose, | | PM PDT | | | | | Radiology | | | | | | + +-------+ +-------+---+---+ +---+---+ | | | +---+---+ + +-------+ +-------+---+---+ | triamcinolone acetonide | Given | 06/11/20 | 40 mg | | | | (KENALOG-40) 40 mg/mL injection | | 16 3:22 | | | | | 40 mg 40 mg, Other, ONCE, Mon | | PM PDT | | | | | 06/11/16 at 1530, For 1 dose, | | | | | | | Shake well. Not for IV use., | | | | | | | Radiology | | | | | | + +-------+ +-------+---+---+ +---+---+ | | | +---+---+ documented in this encounter"
--- OUTSIDE RECORDS SUMMARY | ~2019-10-18 | XMS | Encounter Summary ---
Demographics + + + | Address | [address] | | | [place] [address] | + + + | Home Phone | | + + + | Preferred Language | Unknown | + + + | Marital Status | | + + + | Confucianist Affiliation | 1027 | + + + [...] Team Providers + +------+ + | Care Carton Forming Machine Operator Name | Role | Phone | + +------+ + | Jesus Mijares MD | PCP | | + +------+ + Encounter Details +--------+ + + + + | Date | Type | Department | Care Team | Description | +--------+ + + + + | 11/20/ | Orders Only | [facility] | Veto Neri, | | | 2017 | | NEPHROLOGY [place] | [facility] [address] | | | | | [address] | [address] | | | | | [address] [place], [place] | [place], [place] | | | | | [address] | [address] | | | | | [phone] | [phone] | | | | | | | [...] | | | | | | [place] [address] | | | | | | [phone] | | | | | | | [...] | EXTERNAL LAB: CBC | Routin | 11/20/2017 | | Results for this | | | e | 12:50 PM | | procedure are in the | | | | PST | | results section. | + +--------+ + + + | URINALYSIS, REFLEX | Routin | 11/20/2017 | | Results for this | | MICROSCOPIC AND/OR | e | 12:50 PM | | procedure are in the | | CULTURE | | PST | | results section. | + +--------+ + + + | PROTEIN/CREATININE | Routin | 11/20/2017 | | Results for this | | RATIO, URINE | e | 12:50 PM | | procedure are in the | | | | PST | | results section. | + +--------+ + + + | URIC ACID | Routin | 11/20/2017 | | Results for this | | | e | 12:50 PM | | procedure are in the | | | | PST | | results section. | + +--------+ + + + | PARATHYROID HORMONE, | Routin | 11/20/2017 | | Results for this | | INTACT | e | 12:50 PM | | procedure are in the | | | | PST | | results section. | + +--------+ + + + | MAGNESIUM | Routin | 11/20/2017 | | Results for this | | | e | 12:50 PM | | procedure are in the | | | | PST | | results section. | + +--------+ + + + | RENAL FUNCTION PANEL | Routin | 11/20/2017 | | Results for this | | | e | 12:50 PM | | procedure are in the | | | | PST | | results section. | + +--------+ + + + documented in this encounter Results Urinalysis, Reflex Microscopic and/or Culture (11/20/2017 12:50 PM PST) + + + + + [...] + + + | Spec Grav, | 1.016 | 1.005 - 1.030 | EXTERNAL | | | Fluid | | | LAB | | + + + + + + | Leukocyte | Comment: 100 | | EXTERNAL | | | Esterase, [...] Performed At | + + + | Casts: Hyaline 2+ WBC's: 30 H Bacteria: 1+ | EXTERNAL LAB | + + + + +---------+ + + | Performing | Address | City/State/Zipcode | Phone Number | | Organization | | | | + +---------+ + + | EXTERNAL LAB | | | | + +---------+ + + Protein/Creatinine Ratio, Urine (11/20/2017 12:50 PM PST) + +-------+ + + + | Component | Value | Ref Range | Performed | Pathologist | | | | | At | Signature | + +-------+ + + + | Protein/Cre | 83.3 | 0 - 150 | EXTERNAL | [...] + +---------+ + + External Lab: CBC (11/20/2017 12:50 PM PST) + +-------+ + + + | Component | Value | Ref Range | Performed | Pathologist | | | | | At | Signature | + +-------+ + + + | WBC | 8.8 | 4.5 - 11.0 10 | EXTERNAL | | | | | | LAB | | + +-------+ + + + | RED CELL | 4.54 | 3.8 - 5.1 10 | EXTERNAL | | | COUNT | | | LAB | | + +-------+ + + + | Hgb | 14.4 | 12 - 16 g/dL | EXTERNAL | | | | | | LAB | | + +-------+ + + + | Hematocrit, | 43.1 | 35 - 45 % | EXTERNAL | | | POC | | | LAB | | + +-------+ + + + | MCV | 94.9 | 81 - 99 fL | EXTERNAL | | | | | | LAB | | + +-------+ + + + | MCH | 32 | 27 - 33 pg | EXTERNAL | | | | | | LAB | | + +-------+ + + + | MCHC | 33 | 30 - 36 g/dL | EXTERNAL | | | | | | LAB | | + +-------+ + + + | Platelet | 280 | 140 - 440 K/ L | EXTERNAL | | | Count | | | LAB | | | Plasma | | | | | + +-------+ + + + | RDW-CV | 13.3 | 10.5 - 15.0 % | EXTERNAL [...] | + +---------+ + + Uric Acid (11/20/2017 12:50 PM PST) + +-------+ + + + | Component | Value | Ref Range | Performed | Pathologist | | | | | At | Signature | + +-------+ + + + | Uric Acid | 6.1 | 2.3 - 6.6 | EXTERNAL | [...] + +---------+ + + Parathyroid Hormone, Intact (11/20/2017 12:50 PM PST) + +-------+ + + + | Component | Value | Ref Range | Performed | Pathologist | | | | | At | Signature | + +-------+ + + + | PTH INTACT | 62.06 | 15 - 65 pg/mL | EXTERNAL [...] | | + +---------+ + + Magnesium (11/20/2017 12:50 PM PST) + +-------+ + + + [...] + +---------+ + + Renal Function Panel (11/20/2017 12:50 PM PST) + +---------+ + + + | Component | Value | Ref Range | Performed | Pathologist | | | | | At | Signature | + +---------+ + + + | Glucose, | 254 (A) | 70 - 100 mg/dL | EXTERNAL | | | Fasting | | | LAB | | + +---------+ + + + | BUN | 21 | 6 - 23 mg/dL | EXTERNAL | | | | | | LAB | | + +---------+ + + + | Creatinine | 1.03 | 0.7 - 1.18 | EXTERNAL | | | [...] +---------+ + + + | Cl | 93 (A) | 95 - 112 mmol/L | EXTERNAL | | | | | | LAB | | + +---------+ + + + | CO2 | 34 (A) | 19 - 31 mmol/L | EXTERNAL | | | | | | LAB | | + +---------+ + + + | Anion Gap | 16.9 | 7 - 21 mmol/L | EXTERNAL | | | | | | LAB | | + +---------+ + + + | eGFR if not | | | EXTERNAL | | | | | | LAB | | | ICELANDIC | | | | | + +---------+ + + + | Phosphorus, | 3.8 | 2.5 - 5.0 | EXTERNAL | | | Inorganic | | | LAB | | + +---------+ + + + | BUN/Creatin | 20.4 | 6.0 - 28.6 | EXTERNAL | | | ine Ratio | | | LAB | | + +---------+ + + + | Calcium | 9.5 | 8.4 - 10.2 | EXTERNAL | | | | | mg/dL | LAB | | + +---------+ + + + | Estimated | 52 (A) | 60 mg/dL | EXTERNAL | | | GFR [...]
--- OUTSIDE RECORDS SUMMARY | ~2019-10-18 | XMS | Encounter Summary ---
Demographics + + + | Address | [address] | | | [place] [address] | + + + | Home Phone | | + + + | Preferred Language | Unknown | + + + | Marital Status | | + + + | Adventist Affiliation | 1027 | + + + | Race | Unknown | + + + | Ethnic Group | Unknown | + + + Author + + + | Author | [facility] | | | and [place] | + + + | Organization | [facility] | | | [...] Team Providers + +------+ + | Care Concrete Mixer Operator Name | Role | Phone | + +------+ + | Jesus Mijares MD | PCP | | + +------+ + Encounter Details +--------+ + + + + | Date | Type | Department | Care Team | Description | +--------+ + + + + | 11/01/ | Orders Only | [facility] | Maryana, | | | 2016 | | CARDIOLOGY [place] | Jesus Miranda MD | | | | | [address] | [address] | | | | | [facility], [place] | [address] [place], [place] | | | | | [address] | [address] | | | | | [phone] | [phone] | | | | | | | [...] | | | | | | [place] [address] | | | | | | [phone] | | | | | | | [...] | EXTERNAL LAB: CBC | Routin | 11/01/2015 | | Results for this | | | e | 11:18 AM | | procedure are in the | | | | PST | | results section. | + +--------+ + + + | LIPID PANEL | Routin | 11/01/2015 | | Results for this | | | e | 11:18 AM | | procedure are in the | | | | PST | | results section. | + +--------+ + + + | AST | Routin | 11/01/2015 | | Results for this | | | e | 11:18 AM | | procedure are in the | | | | PST | | results section. | + +--------+ + + + | HEMOGLOBIN A1C | Routin | 11/01/2015 | | Results for this | | | e | 11:18 AM | | procedure are in the | | | | PST | | results section. | + +--------+ + + + documented in this encounter Results External Lab: ANU (11/01/2015 11:18 AM PST) + +-------+ + + + | Component | Value | Ref Range | Performed | Pathologist | | | | | At | Signature | + +-------+ + + + | WBC | 6.6 | 4.5 - 11.0 10 | EXTERNAL | | | | | | LAB | | + +-------+ + + + | RED CELL | 4.73 | 3.8 - 5.1 10 | EXTERNAL | | | COUNT | | | LAB | | + +-------+ + + + | Hgb | 13.8 | 12.0 - 16.0 | EXTERNAL | | | | | g/dL | LAB | | + +-------+ + + + | Hematocrit, | 42.9 | 35 - 45 % | EXTERNAL | | | POC | | | LAB | | + +-------+ + + + | MCV | 90.7 | 81 - 99 fL | EXTERNAL | | | | | | LAB | | + +-------+ + + + | MCH | 29 | 27 - 33 pg | EXTERNAL | | | | | | LAB | | + +-------+ + + + | MCHC | 32 | 30 - 36 g/dL | EXTERNAL | | | | | | LAB | | + +-------+ + + + | Platelet | 174 | 140 - 440 K/ L | EXTERNAL | | | Count | | | LAB | | | Plasma | | | | | + +-------+ + + + | RDW-CV | 14.4 | 10.5 - 15.0 % | EXTERNAL [...] + + + | % Segmented | 64.9 | 39 - 80 % | EXTERNAL | | | | | | LAB | | | Neutrophils | | | | | + +-------+ + + + | % | 24.4 | 24 - 44 % | EXTERNAL | | | Lymphocytes | | | LAB | | + +-------+ + + + | % Monocytes | 7.9 | 0 - 12 % | EXTERNAL | | | | | | LAB | | + +-------+ + + + | % | 1.6 | 0 - 6 % | EXTERNAL | | | Eosinophils | | | LAB | | + +-------+ + + + | % Basophils | 1.2 | 0 - 2 % | EXTERNAL [...] | | + +---------+ + + AST (11/01/2015 11:18 AM PST) + +-------+ + + + | Component | Value | Ref Range | Performed | Pathologist | | | | | At | Signature | + +-------+ + + + | AST | 20 | 13 - 39 U/L | EXTERNAL [...] | + +---------+ + + Hemoglobin A1C (11/01/2015 11:18 AM PST) + + + + + + | Component | Value | Ref Range | Performed | Pathologist | | | | | At | Signature | + + + + + + | Hemoglobin | 5.9Comment: EST AVG | % | EXTERNAL | | | A1c | GLUCOSE 123 | | LAB | | + + [...] | + +---------+ + + Lipid Panel (11/01/2015 11:18 AM PST) + + + + + + | Component | Value | Ref Range | Performed | Pathologist | | | | | At | Signature | + + + + + + | Cholesterol | 88 | 200 mg/dL | EXTERNAL | | | | | | LAB | | + + + + + + | Triglycerid | 89 | 30 - 150 mg/dL | EXTERNAL | | | es | | | LAB | | + + + + + + | HDL | 36.5 (A) | 40 mg/dl | EXTERNAL | | | | | | LAB | | + + + + + + | LDL | 34 | 100 mg/dL | EXTERNAL | | | Cholesterol | | | LAB | | | , | | | | | | Calculated, | | | | | | External | | | | | + + + + + + | LDl/HDL | | | EXTERNAL | | | Ratio | | | LAB | | + + + + + + | Chol/HDL | 2.4 | 4.44 | EXTERNAL | | | Ratio | | | LAB | | + + + + + + | VLDL | 18 | 4 - 40 mg/dL | EXTERNAL | | | | | | LAB | | + + + + + + | Non HDL | 52 | 130 | EXTERNAL | | | Chol. | | | LAB | | | (LDL+VLDL) | | | | | + + [...]
--- OUTSIDE RECORDS SUMMARY | ~2019-10-18 | XMS | Encounter Summary ---
Demographics + + + | Address | [address] | | | [place] [address] | + + + | Home Phone | | + + + | Preferred Language | Unknown | + + + | Marital Status | | + + + | Sikhism Affiliation | 1027 | + + + | Race | Unknown | + + + | Ethnic Group | Unknown | + + + Author + + + | Author | [facility] | | | and [place] | + + + | Organization | [facility] | | | [...] Team Providers + +------+ + | Care Group Leader Name | Role | Phone | + +------+ + | Jesus Mijares MD | PCP | | + +------+ + Encounter Details +--------+ + + + + | Date | Type | Department | Care Team | Description | +--------+ + + + + | 05/05/ | Orders Only | [facility] | Provider, | Chronic diastolic | | 2019 | | SYSTEM GENERIC OP | MD [address] | heart failure (HCC); | | | | CONVERSION [address] | [address] | Essential (primary) | | | | [address] [place], [place] | [place] [address] | hypertension; | | | | [address] | | Localized edema; | | | | [phone] | | Mixed | | | | [...] | | | | | | [place] [address] | | | | | | [phone] | | | | | | | [...]
--- OUTSIDE RECORDS SUMMARY | ~2019-10-18 | XMS | Encounter Summary ---
Demographics + + + | Address | [address] | | | [place] [address] | + + + | Home Phone | | + + + | Preferred Language | Unknown | + + + | Marital Status | | + + + | Hinduism Affiliation | 1027 | + + + | Race | Unknown | + + + | Ethnic Group | Unknown | + + + Author + + + | Author | [facility] | | | and [place] | + + + | Organization | [facility] | | | and [place] | + + + | Address | Unknown | + + + | Phone | Unavailable | + + + Support + + +---------+ + | Name | Relationship | Address | Phone | + + +---------+ + | Cruz Mariano | ECON | Unknown | | + + +---------+ + | Camrine Mariano | ECON | Unknown | | + + +---------+ + Care Team Providers + +------+ + | Care Compound Finisher Name | Role | Phone | + +------+ + | Jesus Mijares MD | PCP | | + +------+ + Reason for Visit + + + | Reason | Comments | + + + | Back Pain | Low back pain that radiates into both hips and down both legs | + + + Encounter Details +--------+---------+ + + + | Date | Type | Department | Care Team | Description | +--------+---------+ + + + | 12/03/ | Office | [facility] | Nilson Chaudhry | DEGENERATIVE DISC | | 2012 | Visit | PHYSIATRY [address] | MD Camila [address] | DISEASE, LUMBAR | | | | [place], | [place] | SPINE (Primary Dx); | | | | [place] [id number] | [address] | Lumbar | | | | [phone] | | radiculopathy; | | | | | | Spondylolisthesis; | | | | | | Bursitis, hip; | | | | | | DIABETES WITH | | | | | | PERIPHERAL | | | | | | NEUROPATHY | +--------+---------+ + + + Social History [...] + + + | Blood Pressure | 138/80 | 12/03/2012 9:41 AM | | | | | PST | | + + + + + | Pulse | 57 | 12/03/2012 9:41 AM | | | | | PST [...] + + + + | Weight | 102.1 kg (225 lb) | 12/03/2012 9:41 AM | | | | | PST | | + + + + + | Height | 167.6 cm (5' 6") | 12/03/2012 9:41 AM | | | | | PST | | + + + + + | Body Mass Index | 36.32 | 12/03/2012 9:41 AM | | | | | PST | | + + + + + documented in this encounter Patient Instructions Patient Instructions Nilson Chaudhry MD - 12/03/2012 10:04 AM [facility] your scheduled [facility] to allow for time to check in. You may eat and drink as usual on the day of the procedure. Do not take any blood thinning medications for at least 5-7 days prior to your procedure. All other medications should be taken as usual. Common blood thinning medications include: Aspirin (a baby aspirin is o.k.) Ibuprofen (Advil or Motrin) Naproxen (Aleve) Nabumetone (Relafen) Clopidogrel (Plavix) Dipyridamole/ASA (Aggrenox) Warfarin (Coumadin) Dabigatran (Pradaxa) There are many others. If you have questions about your medications please contact our off ice. Please also provide a pickup driver to take you home on the day of the procedure. documented in this encounter Progress Notes Nilson Chaudhry MD - 12/03/2012 9:52 AM PST Subjective: Patient ID: Rebecca Castillo is a 72 y.o. female. Chief Complaint Patient presents with Back Pain Low back pain that radiates into both hips and down both legs HPI The patient is being seen today in follow-up for complaints of low back pain that radia nilda down into both hips and legs. The patient's symptoms began many years ago and has become a chronic issue. She describes her symptoms as intermittently aching, burning, sharp and du ll. Her symptoms have been intermittent/worsening/improving/constant. Her symptoms worsen wi th walking, standing and when doing the dishes. Her symptoms improve with injections. She de scribes numbness in both feet. She describes weakness in the legs. She denies bowel and blad pina dysfunction. She also denies having saddle anesthesia. Treatments for these complaints have included one prior epidural steroid injection, the use of Hydrocodone and Flexeril. Prior injections have included a Bilateral L4-L5 TFESI and Bilateral trochanteric bursa inj ections which were performed by me on 08/06/2012. The patient indicates a 100% pain relief u ntil 6 weeks ago when the pain suddenly returned. The patient's MRI was again reviewed today. Current Outpatient Prescriptions Medication Sig Dispense Refill glimepiride (AMARYL) 4 mg tablet Take 4 mg by mouth 2 times daily. ezetimibe-simvastatin (VYTORIN) 10-40 MG per tablet Take 10-40 mg by mouth Daily. cyclobenzaprine (FLEXERIL) 10 mg tablet Take 10 mg by mouth 3 times daily. digoxin (LANOXIN) 250 mcg tablet 1and 1/2 tablets daily metFORMIN (GLUCOPHAGE) 850 mg tablet Take 850 mg by mouth 2 times daily. acebutolol (SECTRAL) 200 mg capsule Take 200 mg by mouth 2 times daily. amitriptyline (ELAVIL) 25 mg tablet Take 25 mg by mouth nightly. hydrochlorothiazide (MICROZIDE) 12.5 MG capsule Take 12.5 mg by mouth Daily. lisinopril (PRINIVIL,ZESTRIL) 40 MG tablet Take 40 mg by mouth Daily. insulin glargine (LANTUS) 100 units/mL injection 40 units daily HYDROcodone-acetaminophen (NORCO) 10-325 mg per tablet Take 10-325 mg by mouth 3 times daily as needed. CALCIUM CARBONATE-VITAMIN D PO TABS Methylsulfonylmethane (MSM) 1000 MG CAPS 2 capsules daily Ibuprofen (ADVIL PO) CAPS as needed Patient's medications, allergies, past medical, surgical, social and family histories were reviewed and updated as appropriate. Review of Systems No complaints other than those listed above in HPI. Objective: Physical Exam Nursing note and vitals reviewed. Constitutional: She is oriented to person, place, and time. She appears well-developed and well-nourished. HENT: Head: Normocephalic and atraumatic. Neck: No tracheal deviation present. Cardiovascular: Normal rate and regular rhythm. Bilateral lower extremity edema. Pulmonary/Chest: Effort normal and breath sounds normal. No respiratory distress. Lymphadenopathy: She has no cervical adenopathy. Neurological: She is alert and oriented to person, place, and time. She has normal strength . No cranial nerve deficit or sensory deficit. She displays no Babinski's sign on the right side. She displays no Babinski's sign on the left side. Reflex Scores: Patellar reflexes are 1+ on the right side and 1+ on the left side. Achilles reflexes are 0 on the right side and 0 on the left side. Skin: Skin is warm, dry and intact. No abrasion, no bruising, no ecchymosis, no laceration and no rash noted. Psychiatric: She has a normal mood and affect. Her speech is normal and behavior is normal. Thought content normal. Cognition and memory are normal. Musculoskeletal: Straight leg raise and slump-sit are positive bilaterally. Gutierrez's man euver was negative and impingement testing were posotive for hip pain. There was tendernes s to palpation over the greater trochanters and to a lesser extent over the sacral sulci. T he patient localized the majority of the pain to the lower lumbar region and radiating into the lower extremities. Lumbar facet loading was negative. Strength testing showed 5/5 stre ngth throughout the lower extremities. The patient was not asked to heel and toe walk due t o generalized difficulty with walking. There was no redness, effusion, warmth or joint line tenderness in the knees or ankles. The patient stands with a forward flexed posture. Assessment: 1. DEGENERATIVE DISC DISEASE, LUMBAR SPINE 2. Lumbar radiculopathy 3. Spondylolisthesis 4. Bursitis, hip 5. Facet arthritis - lower lumbar facets. 6. DIABETES WITH PERIPHERAL NEUROPATHY Plan: 1. The patient has had good relief with the prior injections and is very interested in rep eating the injections if possible. I did offered to repeat the bilateral L4-L5 TFESI and bi lateral trochanteric bursa injections. 2. The patient does have significant facet arthritis and I considered offering lumbar face t injections, however, she reports that the leg pain is worse than the low back pain and the refore repeating the epidural injections is likely more appropriate. 3. The patient is on several medications for pain including cyclobenzaprine, hydrocodone/a cetaminophen and amitriptyline. She also takes ibuprofen on occasion but has discontinued f or the last 5 days. I did not make anychanges in her medications today. documented in this encounter Plan of Treatment [...] | | | | | | [place] [address] | | | | | | [phone] | | | | | | | [...] + | Diagnosis | + + | DEGENERATIVE DISC DISEASE, LUMBAR SPINE - Primary Degeneration of lumbar or | | lumbosacral intervertebral disc | + + | Lumbar radiculopathy Thoracic or lumbosacral neuritis or radiculitis, unspecified | + + | Spondylolisthesis Congenital spondylolisthesis | + + | Bursitis, hip Enthesopathy of hip region | + + | DIABETES WITH PERIPHERAL NEUROPATHY Type II or unspecified type diabetes mellitus | | with neurological manifestations, not stated as uncontrolled | + + documented in this encounter
--- OUTSIDE RECORDS SUMMARY | ~2019-10-18 | XMS | Encounter Summary ---
Demographics + + + | Address | [address] | | | [place] [address] | + + + | Home Phone | | + + + | Preferred Language | Unknown | + + + | Marital Status | | + + + | Orthodox Affiliation | 1027 | + + [...] Team Providers + +------+ + | Care Extrusion Die Template Maker Name | Role | Phone | [...] | +--------+ + + + + | 12/10/ | Telephone | [facility] [place] | [place], | Results, Imaging | | 2017 | | PHYSIATRY [address] | [address] | | | | | [place] [address], | [facility], | | | | | [place] [address] | [place] [address] | | | | | [phone] | [phone] | | | | | | | [...] [place], | | | | | | [place] [address] | | | | | | [phone] | | | | | | | [...]
--- OUTSIDE RECORDS SUMMARY | ~2019-10-18 | XMS | Encounter Summary ---
Demographics + + + | Address | [address] | | | [place] [address] | + + + | Home Phone | | + + + | Preferred Language | Unknown | + + + | Marital Status | | + + + | Uatsdin Affiliation | 1027 | + + + | Race | Unknown | + + + | Ethnic Group | Unknown | + + + Author + + + | Author | [facility] | | | and [place] | + + + | Organization | [facility] | | [...] Team Providers + +------+ + | Care Pad Extractor Tender Name | Role | Phone | + +------+ + | Jesus Mijares MD | PCP | | + +------+ + Encounter Details +--------+ + + + + | Date | Type | Department | Care Team | Description | +--------+ + + + + | 10/18/ | Orders Only | [facility] | Rajendra Fowler, | | | 2015 | | CARDIOLOGY [place] | [address] | | | | | [address] | [place], | | | | | [facility] [place] | [place] [address] | | | | | [address] | [phone] | | | | | [phone] | | | +--------+ + + + [...] | 11/17/ | Office | Cardiology | Rajendar Fowler, | | | 2019 | Visit | | MD [address] | | | | | | [place], | | | | | | [place] [address] | | | | | | [phone] | | | | | | | [...] + | BASIC METABOLIC | Routin | 10/18/2015 | | Results for this | | PANEL | e | 11:40 AM | | procedure are in the | | | | PST | | results section. | + +--------+ + + + documented in this encounter Results Basic Metabolic Panel (10/18/2015 11:40 AM PST) + + + + + + | Component | Value | Ref Range | Performed | Pathologist | | | | | At | Signature | + + + + + + | Glucose, | 131 (A) | 70 - 100 mg/dL | EXTERNAL | | | Fasting | | | LAB | | + + + + + + | BUN | 23 | 6 - 23 mg/dL | EXTERNAL | | | | | | LAB | | + + + + + + | Creatinine | 1.59 (A) | 0.70 - 1.18 | EXTERNAL | | | | | mg/dL | LAB | | + + + + + + | BUN/Creatin | 14.5 | 6.0 - 28.6 | EXTERNAL | | | ine Ratio | | | LAB | | + + + + + + | Calcium | 9.1 | 8.4 - 10.2 | EXTERNAL | | | | | mg/dL | LAB | | + + + + + + | Na | 137 | 132 - 143 | EXTERNAL | | | | | mmol/L | LAB | | + + + + + + | K | 4.8 | 3.6 - 5.1 | EXTERNAL | | | | | mmol/L | LAB | | + + + + + + | Cl | 98 | 95 - 112 mmol/L | EXTERNAL | | | | | | LAB | | + + + + + + | CO2 | 28 | 19 - 31 mmol/L | EXTERNAL | | | | | | LAB | | + + + + + + | Anion Gap | 15.8 | 7 - 21 mmol/L | EXTERNAL | | | | | | LAB | | + + + + + + | Estimated | 32 (A) | 60 mg/dL | EXTERNAL | [...]
--- OUTSIDE RECORDS SUMMARY | ~2019-10-18 | XMS | Encounter Summary ---
Demographics + + + | Address | [address] | | | [place] [address] | + + + | Home Phone | | + + + | Preferred Language | Unknown | + + + | Marital Status | | + + + | Hoahaoism Affiliation | 1027 | + + + | Race | Unknown | + + + | Ethnic Group | Unknown | + + + Author + + + | Author | [facility] | | | and [place] | + + + | Organization | [facility] | | | [...] Team Providers + +------+ + | Care Cluster Bore Operator Name | Role | Phone | + +------+ + | Jesus Mijares MD | PCP | | + +------+ + Encounter Details +--------+ + + + + | Date | Type | Department | Care Team | Description | +--------+ + + + + | 07/16/ | Orders Only | [facility] | Conversion | | | 2015 | | NEPRHOLOGY DISPUTANTA | Transaction, | | | | | [address] | Provider Unknown | | | | | [address] [place], [place] | [phone] | | | | | [address] | | | | | | [phone] | | | +--------+ + + + [...] | | | | | | [place] [address] | | | | | | [phone] | | | | | | | [...] | EXTERNAL LAB: CBC | Routin | 07/16/2016 | | Results for this | | | e | 10:33 AM | | procedure are in the | | | | PDT | | results section. | + +--------+ + + + | PARATHYROID HORMONE, | Routin | 07/16/2016 | | Results for this | | INTACT | e | 10:33 AM | | procedure are in the | | | | PDT | | results section. | + +--------+ + + + | MAGNESIUM | Routin | 07/16/2016 | | Results for this | | | e | 10:33 AM | | procedure are in the | | | | PDT | | results section. | + +--------+ + + + | RENAL FUNCTION PANEL | Routin | 07/16/2016 | | Results for this | | | e | 10:33 AM | | procedure are in the | | | | PDT | | results section. | + +--------+ + + + documented in this encounter Results External Lab: ANU (07/16/2016 10:33 AM PDT) + +-------+ + + + | Component | Value | Ref Range | Performed | Pathologist | | | | | At | Signature | + +-------+ + + + | WBC | 6.4 | 4.5 - 11.0 10 | EXTERNAL | | | | | | LAB | | + +-------+ + + + | RED CELL | 4.56 | 3.8 - 5.1 10 | EXTERNAL | | | COUNT | | | LAB | | + +-------+ + + + | Hgb | 14.3 | 12.0 - 16.0 | EXTERNAL | | | | | g/dL | LAB | | + +-------+ + + + | Hematocrit, | 41.9 | 35 - 45 % | EXTERNAL | | | POC | | | LAB | | + +-------+ + + + | MCV | 91.8 | 81 - 99 fL | EXTERNAL [...] +-------+ + + + | Platelet | 255 | 140 - 440 K/ L | [...] + +---------+ + + Parathyroid Hormone, Intact (07/16/2016 10:33 AM PDT) + +-------+ + + + | Component | Value | Ref Range | Performed | Pathologist | | | | | At | Signature | + +-------+ + + + | PTH INTACT | 63.24 | 15 - 65 pg/mL | EXTERNAL [...] | | + +---------+ + + Magnesium (07/16/2016 10:33 AM PDT) + +-------+ + + + | Component | Value | Ref Range | Performed | Pathologist | | | | | At | Signature | + +-------+ + + + | Magnesium | 2.2 | 1.7 - 2.5 mg/dL | EXTERNAL [...] + +---------+ + + Renal Function Panel (07/16/2016 10:33 AM PDT) + + + + + + | Component | Value | Ref Range | Performed | Pathologist | | | | | At | Signature | + + + + + + | Glucose, | 82 | 70 - 100 mg/dL | EXTERNAL | | | Fasting | | | LAB | | + + + + + + | BUN | 15 | 6 - 23 mg/dL | EXTERNAL | | | | | | LAB | | + + + + + + | Creatinine | 1.23 (A) | 0.70 - 1.18 | EXTERNAL | | | | | mg/dL | LAB | | + + + + + + | PHOSPHORUS | | mg/dL | EXTERNAL | | | | | | LAB | | + + + + + + | Albumin | 3.5 | 3.5 - 5.0 | EXTERNAL | | | | | | LAB | | + + + + + + | Na | 138 | 132 - 143 | EXTERNAL | | | | | mmol/L | LAB | | + + + + + + | K | 4.1 | 3.6 - 5.1 | EXTERNAL | | | | | mmol/L | LAB | | + + + + + + | Cl | 97 | 95 - 112 mmol/L | EXTERNAL | | | | | | LAB | | + + + + + + | CO2 | 29 | 19 - 31 mmol/L | EXTERNAL | | | | | | LAB | | + + + + + + | Anion Gap | 16.1 | 7 - 21 mmol/L | EXTERNAL | | | | | | LAB | | + + + + + + | eGFR if not | | | EXTERNAL | | | | | | LAB | | | AUSTRIAN | | | | | + + + + + + | Phosphorus, | 3.9 | 2.5 - 5.0 | EXTERNAL | | | Inorganic | | | LAB | | + + + + + + | BUN/Creatin | 12.2 | 6.0 - 28.6 | EXTERNAL | | | ine Ratio | | | LAB | | + + + + + + | Calcium | 9.7 | 8.4 - 10.2 | EXTERNAL | | | | | mg/dL | LAB | | + + + + + + | Estimated | 43 | mg/dL | EXTERNAL | | | [...]
--- OUTSIDE RECORDS SUMMARY | ~2019-10-18 | XMS | Encounter Summary ---
Demographics + + + | Address | [address] | | | [place] [address] | + + + | Home Phone | | + + + | Preferred Language | Unknown | + + + | Marital Status | | + + + | Jehovah'S Witness Affiliation | 1027 | + + + | Race | Unknown | + + + | Ethnic Group | Unknown | + + + Author + + + | Author | [facility] | | | and [place] | + + + | Organization | [facility] | | | [...] Providers + +------+ + | Care Site Promotion Agent Name | Role | Phone | + +------+ + | Jesus Mijares MD | PCP | | + +------+ + Encounter Details +--------+ + + + + | Date | Type | Department | Care Team | Description | +--------+ + + + + | 03/06/ | Hospital | [facility] | Anaidaroldo, | Lumbar radiculopathy | | 2016 | Encounter | MED CTR XRAY [address] | [address] | (Primary Dx); | | | | [place] | [facility], | Spinal stenosis of | | | | [place] [address] | [place] [address] | lumbar region - | | | | [phone] | [phone] | L3/L4, 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; | | | | | [facility] | Chronic bilateral | | | | | | low back pain with | | | | | | bilateral sciatica; | | | | | | Adolescent | | | | | | idiopathic scoliosis | | | | | | of lumbar region; | | | | | | Bursitis, hip, right | +--------+ + + + + Social [...] +---------+ + + | Blood Pressure | 140/75 | 03/06/2016 3:32 PM | | | | | PDT | | + +---------+ + + | Pulse | 86 | 03/06/2016 3:32 PM | | | | | PDT [...] | | | | | | [place] [address] | | | | | | [phone] | | | | | | | [...] + | FL ASPIRATION | Routin | 03/06/2016 | Spinal stenosis of | Results for this | | INJECTION MAJOR | e | 3:59 PM | lumbar region - | procedure are in the | | JOINT RIGHT | | PDT | L3/L4, adjacent | results section. | | | | | segment disease | | | | | | Chronic bilateral | | | | | | low back pain with | | | | | | bilateral sciatica | | | | | | Adolescent | | | | | | idiopathic scoliosis | | | | | | of lumbar region | | + +--------+ + + + | FL EPIDURAL STEROID | Routin | 03/06/2016 | Spinal stenosis of | Results for this | | INJECTION LUMBAR | e | 3:59 PM | lumbar region - | procedure are in the | | TRANSFORAMINAL | | PDT | L3/L4, adjacent | results section. | | | | | segment disease | | | | | | Chronic bilateral | | | | | | low back pain with | | | | | | bilateral sciatica | | | | | | Adolescent | | | | | | idiopathic scoliosis | | | | | | of lumbar region | | + +--------+ + + + documented in this encounter Results FL Major Joint Injection Right (03/06/2016 3:59 PM PDT) + + | Specimen | + + | | + + + + + | Narrative | Performed At | + + + | 03/06/2016 Bilateral Transforaminal Epidural Steroid Injections | [facility] | | and Trochanteric Bursa Injection on Right Diagnosis: Lumbar | [facility] | | radiculopathy and Trochanteric bursitis ICD-10 Codes M54.16 and | [facility] | | M70.61 Rebecca Chanell Castillo presents to the fluoroscopy suite [...] to the start of the procedure, the | | | following were performed and/or verified, including correct patient | | | identity, correct site/side marked and visible, agreement on the | | | procedure to be done, correct patient positioning and an accurate | | | procedure consent form. Any safety precautions based on clinical | | | history and/or medication use have been addressed. I personally | | | performed the procedure above. Estimated blood loss: Minimal | | | Complications: None Findings: As expected Anesthesia: Local 1% | | | Lidocaine | | + + + + + + + + | Performing | Address | City/State/Zipcode | Phone Number | | Organization | | | | + + + + + | [facility] | [address] | [place], [place] | [phone] | | [facility] | | [address] | | | - IMAGING | | | | + + + + + FL SRINIVAS Lumbar Transforaminal (03/06/2016 3:59 PM PDT) + + | Specimen | + + | | + + + + + | Narrative | Performed At | + + + | 03/06/2016 Bilateral Transforaminal Epidural Steroid Injections | [facility] | | and Trochanteric Bursa Injection on Right Diagnosis: Lumbar | [facility] | | radiculopathy and Trochanteric bursitis ICD-10 Codes M54.16 and | [facility] | | M70.61 Rebecca Castillo presents [...] to the start of the procedure, the | | | following were performed and/or verified, including correct patient | | | identity, correct site/side marked and visible, agreement on the | | | procedure to be done, correct patient positioning and an accurate | | | procedure consent form. Any safety precautions based on clinical | | | history and/or medication use have been addressed. I personally | | | performed the procedure above. Estimated blood loss: Minimal | | | Complications: None Findings: As expected Anesthesia: Local 1% | | | Lidocaine | | + + + + + + + + | Performing | Address | City/State/Zipcode | Phone Number | | Organization | | | | + + + + + | [facility] | [address] 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 | | | | | | | Not for IV use., Radiology | | | | | | + +--------+ +-------+------+------+ +---+---+ | | | +---+---+ + +-------+ +-------+---+---+ | iohexol (OMNIPAQUE 300) 300 | Given | 03/06/20 | 2 mLs | | | | mg/mL injection 2 mL 2 mL, | | 16 4:00 | | | | | Other, ONCE PRN, Other, Starting | | PM PDT | | | | | 03/06/16 at 1545, For 1 dose, | | | | | | | Radiology | | | | | | + +-------+ +-------+---+---+ +---+---+ | | | +---+---+ + +-------+ +-------+---+---+ | lidocaine (PF) 1% injection 2 | Given | 03/06/20 | 2 mLs | | | | mL 2 mL, Other, ONCE, Tue | | 16 4:02 | | | | | 03/06/16 at 1615, For 1 dose, | | PM PDT | | | | | Radiology | | | | | | + +-------+ +-------+---+---+ +---+---+ | | | +---+---+ + +-------+ +-------+---+---+ | lidocaine 1% injection 2 mL 2 | Given | 03/06/20 | 2 mLs | | | | mL, Other, ONCE, e 03/06/16 at | | 16 4:15 | | | | | 1615, For 1 dose, Radiology | | PM PDT | | | | + +-------+ +-------+---+---+ +---+---+ | | | +---+---+ + +-------+ +-------+---+ + | lidocaine buffered 1% injection | Given | 03/06/20 | 6 mLs | | Other | | 6 mL 6 mL, Intradermal, ONCE, | | 16 3:55 | | | (Comment | | e 03/06/16 at 1615, For 1 dose, | | PM PDT | | | ) | | Radiology | | | | | | + +-------+ +-------+---+ + +---+---+ | | | +---+---+ + +-------+ +-------+---+---+ | triamcinolone acetonide | Given | 03/06/20 | 40 mg | | | | (KENALOG-40) 40 mg/mL injection | | 16 4:15 | | | | | 40 mg 40 mg, Intra-articular, | | PM PDT | | | | | ONCE, 03/06/16 at 1615, For 1 | | | | | | | dose, Shake well. Not for IV | | | | | | | use., Radiology | | | | | | + +-------+ +-------+---+---+ +---+---+ | | | +---+---+ documented in this encounter"
--- OUTSIDE RECORDS SUMMARY | ~2019-10-18 | XMS | Encounter Summary ---
Demographics + + + | Address | [address] | | | [place] [address] | + + + | Home Phone | | + + + | Preferred Language | Unknown | + + + | Marital Status | | + + + | Judaism Affiliation | 1027 | + + + [...] Team Providers + +------+ + | Care Inhalation Therapy Aides Teacher Name | Role | Phone | + +------+ + | Jesus Mijares MD | PCP | | + +------+ + Encounter Details +--------+ + + + + | Date | Type | Department | Care Team | Description | +--------+ + + + + | 12/03/ | Hospital | [facility] | Nilson Chaudhry | Acute pain of right | | 2018 | Encounter | MED CTR XRAY [address] | [address] | shoulder | | | | [place] | [place], [place] | | | | | [place] [address] | [address] | | | | | [phone] | | | | | | | Rad, [facility] | | +--------+ + + + + [...] | | | | | | [place] [address] | | | | | | | | | | | | (Fax) | | +--------+ + + + + [...] + +--------+ + + + | FL SHOULDER | Routin | 12/03/2017 | Acute pain of | Results for this | | INJECTION RIGHT FOR | e | 11:16 AM | right shoulder | procedure are in the | | MRI OR CT | | PST | | results section. | + +--------+ + + + documented in this encounter Results FL Shoulder Inj Right for MRI or CT (12/03/2017 11:16 AM PST) + + | Specimen | [...] | + +--------+ +-------+------+------+ | iohexol (OMNIPAQUE 240) 240 | Given | 12/03/19 | 5 mLs | | | | mg/mL injection 5 mL 5 mL, | | 18 11:45 | | | | | Intra-articular, ONCE, Tue | | AM PST | | | | | 12/03/17 at 1145, For 1 dose, | | | | | | | Radiology | | | | | | + +--------+ +-------+------+------+ +---+---+ | | | +---+---+ + +-------+ +-------+---+ + | lidocaine 1% injection 5 mL 5 | Given | 12/03/19 | 5 mLs | | Other | | mL, Intradermal, ONCE, Tue | | 18 11:45 | | | (Comment | | 12/03/17 at 1145, For 1 dose | | AM PST | | | ) | + +-------+ +-------+---+ + +---+---+ | | | +---+---+ documented in this encounter Additional Health Concerns + + + + | Infection | Noted Time | Resolved Time | + + + + | Methicillin-resistant Staphylococcus aureus | 03/20/2017 12:00 AM | | | | PDT | | + + + + documented as of this encounter"
--- OUTSIDE RECORDS SUMMARY | ~2019-10-18 | XMS | Encounter Summary ---
Demographics + + + | Address | [address] | | | [place] [address] | + + + | Home Phone | | + + + | Preferred Language | Unknown | + + + | Marital Status | | + + + | Jehovah'S Witness Affiliation | 1027 | + + + | Race | Unknown | + + + | Ethnic Group | Unknown | + + + Author + + + | Author | [facility] | | | and [place] | + + + | Organization | [facility] | | | and [...] Team Providers + +------+ + | Care Road Driver Name | Role | Phone | + [...] W | [address] | ([facility]) (Primary Dx) | | | | [place], | [address] [place], | | | | | [place] [address] | [place] [address] | | | | | [phone] | [phone] | | | | | | | [...] | | | | | | [place] [address] | | | | | | [phone] | | | | | | | [...]
--- OUTSIDE RECORDS SUMMARY | ~2019-10-18 | XMS | Encounter Summary ---
Demographics + + + | Address | [address] | | | [place] [address] | + + + | Home Phone [...] Team Providers + +------+ + | Care Admissions Clerk Name | Role | Phone | + +------+ + | Jesus Mijares MD | PCP | | + +------+ + Encounter Details +--------+ + + + + | Date | Type | Department | Care Team | Description | +--------+ + + + + | 03/20/ | Hospital | [facility] | Conversion | Paroxysmal atrial | | 2017 | Encounter | [facility] | Transaction, | fibrillation ([facility]); | | | | CARE FLOOR [phone] | Provider Unknown | SSS (sick sinus | | | | [address] | [phone] | syndrome) ([facility]); | | | | [place], [place] | | Snoring; | | | | [address] | Chuy Valverde MD | Gastroesophageal | | | | [phone] | [address] | reflux disease, | | | | | [place], [place] | esophagitis presence | | | | | [address] | not specified; | | | | | | Bradycardia | +--------+ + + + + Social [...] + + + | Blood Pressure | 181/83 | 03/20/2017 1:45 PM | | | | | PDT | | + + + + + | Pulse | 69 | 03/20/2017 1:45 PM | | | | | PDT | | + + + + + | Temperature | 36.7 C (98 F) | 03/20/2017 1:45 PM | | | | | PDT | | + + + + + | Respiratory Rate | 16 | 03/20/2017 1:45 PM | | | | | PDT | | + + + + + | Oxygen Saturation | - | - | | + + + + + | Inhaled Oxygen | - | - | | | Concentration | | | | + + + + + | Weight | 89.4 kg (197 lb) | 03/20/2017 1:45 PM | | | | | PDT | | + + + + + | Height | 162.6 cm (5' 4") | 03/20/2017 1:45 PM | | | | | PDT | | + + + + + | Body Mass Index | 33.81 | 03/20/2017 1:45 PM | | | | | PDT | | + + + + + documented in this encounter Medications [...] documented as of this encounter Progress Notes Conversion Transaction, Provider Unknown - 03/20/2017 4:26 PM PDTFormatting of this note m ight be different from the original. Nurse Progress Note by Carley Lee RN at 03/20/171625 Author: Carley Lee RN Service: (none) Author Type: Registered Nurse Filed: 03/20/171626 Date of Service: 03/20/171625 Status: Signed Elastic Attacher Chainstitch: Carley Lee RN (Registered Nurse) Discharge instructions reviewed with pt and her son. All questions answered. IV removed. Pt will discharge home to self care via private vehicle. Carley Lee RN docume nted in this encounter Plan of Treatment +--------+ [...] | | | | | | [place] [id number] | | | | | | [phone] | | | | | | | [...] + +--------+ + + + | XR CHEST 2 VIEWS | Routin | 03/20/2017 | | Results for this | | | e | 2:36 PM | | procedure are in the | | | | PDT | | results section. | + +--------+ + + + | CV EP PROCEDURE | Routin | 03/20/2017 | | Results for this | | | e | 11:44 AM | | procedure are in the | | | | PDT | | results section. | + +--------+ + + + | MRSA NAAT | Timed | 03/20/2017 | | Results for this | | | | 9:16 AM | | procedure are in the | | | | PDT | | results section. | + +--------+ + + + documented in this encounter Results XR Chest 2 Vws (03/20/2017 2:36 PM PDT) + + | Specimen | + + | | + + + + + | Impressions | Performed At | + + + | 1. Satisfactory insertion of dual-lead right heart pacemaker via | | | the left subclavian vein. 2. No visible pneumothorax. 3. | | | Cardiomegaly. 4. Probable chronic bronchitis. Electronically | | | signed by Rojelio Lind MD on 03/20/2017 2:52 PM | | + + + + + + | Narrative | Performed At | + + + | [facility] XR CHEST 2 VIEW FRONTAL AND LATERAL 03/20/2017 2:36 PM | | | History: 77 years. Female. New pacemaker insertion. | | | Follow-up for possible complications. Technique: PA and lateral | | | views of the chest. Comparison: No prior chest radiography at this | | | facility.. Findings: There are dual right heart pacemaker leads, | | | in good position, via the left subclavian vein. Both leads appear | | | continuous. No visible left pneumothorax. There is mild to | | | moderate cardiomegaly. Mild bronchial wall thickening is visualized | | | in the lower lung dye. No lung consolidation or pleural effusion | | | visualized. Osteopenia is mild. No vertebral body compression | | | fracture visualized. | | + + + + --+ | Procedure Note | + --+ | Jeanmarie, Rad Conversion - 05/28/2019 3:27 AM GEN [place] SPOHNXR CHEST 2 VIEW FRONTAL | | AND LATERAL03/20/2017 2:36 PM History: 77 years. Female. New pacemaker insertion. | | Follow-up for possible complications. Technique: PA and lateral views of the | | chest.Comparison: No prior chest radiography at this facility.. Findings: There are | | dual right heart pacemaker leads, in good position, via the left subclavian vein. Both | | leads appear continuous. No visible left pneumothorax. There is mild to moderate | | cardiomegaly. Mild bronchial wall thickening is visualized in the lower lung dye. | | No lung consolidation or pleural effusion visualized. Osteopenia is mild. No vertebral | | body compression fracture visualized. IMPRESSION: 1. Satisfactory insertion of | | dual-lead right heart pacemaker via the left subclavian vein.2. No visible | | pneumothorax.3. Cardiomegaly.4. Probable chronic bronchitis. | | | |Osteopenia is mild. No vertebral body compression fracture visualized. | | | |IMPRESSION: | |1. Satisfactory insertion of dual-lead right heart pacemaker via the left subclavian vein . | |2. No visible pneumothorax. | |3. Cardiomegaly. | |4. Probable chronic bronchitis. | | | | | + --+ CV EP PROCEDURE (03/20/2017 11:44 AM PDT) + + | Specimen | + + | | + + + + + | Narrative | Performed At | + + + | | | | | | | DATE OF SERVICE March 20, 2017 SURGEON Chuy Valverde MD | | | HISTORY This 77-year-old female was referred for a permanent | | | pacemaker by Dr. Fowler because of sinus node dysfunction associated | | | with symptoms of fatigue and exertional dyspnea. She also has | | | paroxysmal atrial fibrillation, with occasional rapid ventricular | | | responses. Pauses of up to 4.8 seconds were seen on a recent event | | | recorder. She also had atrial fibrillation and flutter intermittently | | | with a burden of 2%. It was felt that she needs a permanent | | | pacemaker to enable treatment with antiarrhythmic therapy to | | | hopefully prevent and minimize the atrial fibrillation. She is | | | anticoagulated and her INR was 1.7 today after she held the warfarin | | | for a couple of days despite my instructions not to. DESCRIPTION | | | OF PROCEDURE The patient was brought to the electrophysiology | | | laboratory in the postabsorptive nonsedated state. Sedation was | | | accomplished with 100 mcg intravenous fentanyl. The chest was prepped | | | and draped in the usual sterile fashion and locally anesthetized | | | with 1% xylocaine. The left subclavian vein was accessed twice and 2 | | | guidewires were placed into the vessel. A pacemaker pocket was | | | fashioned using sharp and blunt dissection and electrocautery in the | | | usual manner. A 7-[place] Islander introducer was placed into the subclavian | | | vein and through that, a Setrox S-53 cm, model 100840, #[id number] lead | | | was placed into the right ventricle and screwed into position on the | | | septum, midway between the apex and outflow tract. The final pacing | | | threshold was 1 V at 0.5 msec, with R waves of 5.9 mV and the | | | impedance was 550 ohms. There was no diaphragmatic pacing at 10 V. The | | | lead was anchored with two #1 Ethibond sutures. Another 7-[place] Islander | | | introducer was placed into the subclavian vein and through that, a | | | [employer] model 5076-45 cm lead was placed into the high right atrium | | | and screwed into position anteriorly. The lead needed to be | | | repositioned several times because of elevated thresholds in certain | | | locations. In the final location, the pacing threshold was 1.2 V at | | | 0.5 msec, and P waves were 1.9 mV with an impedance of 360 ohms. The | | | lead was anchored with two #1 Ethibond sutures. There was no | | | diaphragmatic pacing at 10 V. The leads were attached to a [employer] | | | Etrinsa 8 , model 325259, serial #[id number] pacemaker. That | | | device was placed into the pocket and anchored with a #1 Ethibond | | | suture. The pocket was closed with 4 layers, using 2-0 Vicryl for the | | | deep 2 layers, 3-0 Vicryl for the next layer, and 4-0 Monocryl for | | | the superficial layer. A sterile dressing was applied (Dermabond). | | | There were no complications. ESTIMATED BLOOD LOSS 20 mL or less. | | | FINAL SETTINGS FOR THE DEVICE Mode for pacing: DDD-CLS with a | | | lower rate of 60 and an upper rate of 130 beats per minute. Pacing | | | and sensing will be bipolar in both chambers. I-OPT is turned on, to | | | hopefully encourage intrinsic conduction through the AV node. The AV | | | delay is intentionally programmed long for the same reason. The | | | outputs will be 3 V at 0.4 msec in both chambers. FINAL | | | IMPRESSION Good pacing and sensing thresholds. Appropriate device | | | function seen. RECOMMENDATIONS 1. Stop acebutolol and use sotalol | | | 80 mg b.i.d. to help maintain sinus rhythm. That dose may need to be | | | increased depending on her response. 2. Resume warfarin today. | | | Read by CHUY VALVERDE MD 03/20/2017 12:01 P | | + + + + + | Procedure Note | + + | Roberto Murry Conversion - 06/03/2019 3:25 PM PDT | | | | | | DATE OF SERVICE | | March 20, 2017 | | | | SURGEON | | Chuy Valverde MD | | | | HISTORY | | This 77-year-old female was referred for a permanent pacemaker by Dr. Fowler | | because of sinus node dysfunction associated with symptoms of fatigue and | | exertional dyspnea. She also has paroxysmal atrial fibrillation, with | | occasional rapid ventricular responses. Pauses of up to 4.8 seconds were | | seen on a recent event recorder. She also had atrial fibrillation and | | flutter intermittently with a burden of 2%. It was felt that she needs a | | permanent pacemaker to enable treatment with antiarrhythmic therapy to | | hopefully prevent and minimize the atrial fibrillation. She is | | anticoagulated and her INR was 1.7 today after she held the warfarin for a | | couple of days despite my instructions not to. | | | | DESCRIPTION OF PROCEDURE | | The patient was brought to the electrophysiology laboratory in the | | postabsorptive nonsedated state. Sedation was accomplished with 100 mcg | | intravenous fentanyl. The chest was prepped and draped in the usual sterile | | fashion and locally anesthetized with 1% xylocaine. The left subclavian | | vein was accessed twice and 2 guidewires were placed into the vessel. A | | pacemaker pocket was fashioned using sharp and blunt dissection and | | electrocautery in the usual manner. A 7-[place] Islander introducer was placed into | | the subclavian vein and through that, a [address] S-53 cm, model 912540, | | #[id number] lead was placed into the right ventricle and screwed into | | position on the septum, midway between the apex and outflow tract. The | | final pacing threshold was 1 V at 0.5 msec, with R waves of 5.9 mV and the | | impedance was 550 ohms. There was no diaphragmatic pacing at 10 V. The lead | | was anchored with two #1 Ethibond sutures. | | | | Another 7-[place] Islander introducer was placed into the subclavian vein and through | | that, a [employer] model 5076-45 cm lead was placed into the high right | | atrium and screwed into position anteriorly. The lead needed to be | | repositioned several times because of elevated thresholds in certain | | locations. In the final location, the pacing threshold was 1.2 V at 0.5 | | msec, and P waves were 1.9 mV with an impedance of 360 ohms. The lead was | | anchored with two #1 Ethibond sutures. There was no diaphragmatic pacing at | | 10 V. | | The leads were attached to a [employer] Etrinsa 8 , model 273823, | | serial #[id number] pacemaker. That device was placed into the pocket and | | anchored with a #1 Ethibond suture. The pocket was closed with 4 layers, | | using 2-0 Vicryl for the deep 2 layers, 3-0 Vicryl for the next layer, and | | 4-0 Monocryl for the superficial layer. A sterile dressing was applied | | (Dermabond). There were no complications. | | | | ESTIMATED BLOOD LOSS | | 20 mL or less. | | | | FINAL SETTINGS FOR THE DEVICE | | Mode for pacing: DDD-CLS with a lower rate of 60 and an upper rate of 130 | | beats per minute. | | Pacing and sensing will be bipolar in both chambers. I-OPT is turned on, to | | hopefully encourage intrinsic conduction through the AV node. The AV delay | | is intentionally programmed long for the same reason. The outputs will be 3 | | V at 0.4 msec in both chambers. | | | | FINAL IMPRESSION | | Good pacing and sensing thresholds. Appropriate device function seen. | | | | RECOMMENDATIONS | | 1. Stop acebutolol and use sotalol 80 mg b.i.d. to help maintain sinus | | rhythm. That dose may need to be increased depending on her response. | | 2. Resume warfarin today. | | | | Read by CHUY VALVERDE MD 03/20/2017 12:01 P | | | | | + + MRSA NAAT (03/20/2017 9:16 AM PDT) + + | Specimen | + + | | + + + + + | Narrative | Performed At | + + + | [facility](NOSE) MRSA | EXTERNAL LAB | | PCR POSITIVE for MRSA by | | | PCRAbnormal Testing performed at [facility] [place] [place] [address];[place] [address] | | + + + + +---------+ + + | Performing | Address | City/State/Zipcode | Phone Number | | Organization | | | | + +---------+ + + | EXTERNAL LAB | | | | + +---------+ + + documented in this encounter Visit Diagnoses + + | Diagnosis | + + | Paroxysmal atrial fibrillation (HCC) Atrial fibrillation | + + | SSS (sick sinus syndrome) (HCC) Sinoatrial node dysfunction | + + | Snoring Other dyspnea and respiratory abnormality | + + | Gastroesophageal reflux disease, esophagitis presence not specified | + + | Bradycardia Other specified cardiac dysrhythmias | + + documented in this encounter Additional Health Concerns + + + + | Infection | Noted Time | Resolved Time | + + + + | Methicillin-resistant Staphylococcus aureus | 03/20/2017 12:00 AM | | | | PDT | | + + + + documented as of this encounter
--- OUTSIDE RECORDS SUMMARY | ~2019-10-18 | XMS | Encounter Summary ---
Demographics + + + | Address | [address] | | | [place] [address] | + + + | Home Phone | | + + + | Preferred Language | Unknown | + + + | Marital Status | | + + + | Gnosticist Affiliation | 1027 | + + + | Race | Unknown | + + + | Ethnic Group | Unknown | + + + Author + + + | Author | [facility] | | | and [place] | + + + | Organization | [facility] | | | [...] Team Providers + +------+ + | Care Windows Server Architect Name | Role | Phone | + [...] | | | | | Procedures | [place], [place] | | | | | | [place] | [address] | | | | | | and/or Inj | Phone: | | | | | | Major Joint | [phone] | | | | | | Right | Fax: | | | | | | | [phone] | | +--------+--------+ + + + + [...] | | | | | Procedures | [place], [place] | | | | | | [place] | [address] | | | | | | and/or Inj | Phone: | | | | | | Major Joint | [phone] | | | | | | Right | Fax: | | | | | | | [phone] | | +--------+--------+ + + + + Encounter Details +--------+ + + + + | Date | Type | Department | Care Team | Description | +--------+ + + + + | 03/03/ | Hospital | [facility] | Capo Bermudez, | Lumbar | | 2019 | Encounter | MED CTR XRAY [address] | PA-C [address] | radiculopathy; | | | | [place] | [address] [place] | Trochanteric | | | | [place] [address] | [place] [address] | bursitis, right hip | | | | [phone] | [phone] | | | | | | | | | | | | [facility] [employer] | | +--------+ + + + [...] + +---------+ + + | allopurinol | TAKE ONE TABLET BY | | 0 | 04/30/20 | | | (ZYLOPRIM) 100 mg | MOUTH ONCE DAILY | | | 18 | | | [...] + + + +---------+ + + | magnesium chloride | Take 128 mg by | | 0 | 06/04/20 | | | (MAG64) 64 mg EC | mouth. | | | 18 | 9 | | tablet | | | | | | + + + +---------+ + + | potassium chloride | Take 20 mEq by | | 0 | 06/04/20 | | | (KLOR-CON M20) 20 | mouth. | | | 18 | 9 | | mEq ER tablet | | | | | | [...] | | | | | | [place] [address] | | | | | | [phone] | | | | | | | [...] + | FL ASPIRATION | Routin | 03/03/2019 | Trochanteric | Results for this | | INJECTION MAJOR | e | 2:50 PM | bursitis, right hip | procedure are in the | | JOINT RIGHT | | PDT | | results section. | + +--------+ + + + | FL EPIDURAL STEROID | Routin | 03/03/2019 | Lumbar | Results for this | | INJECTION LUMBAR | e | 2:50 PM | radiculopathy | procedure are in the | | TRANSFORAMINAL | | PDT | | results section. | + +--------+ + + + documented in this encounter Results FL Asp and/or Inj Major Joint Right (03/03/2019 2:50 PM PDT) + + | Specimen | [...] +---------+ + + FL SRINIVAS Lumbar Transforaminal (03/03/2019 2:50 PM PDT) + + | Specimen | + + | | + + + + -+ | Narrative | Performed At | + + -+ | 03/03/2019 | [facility] | | Bilateral Transforaminal Epidural Steroid Injections Diagnosis: Lumbar | | | radiculopathy ICD-10 Code M54.16 Rebeccapaola Castillo presents to the | | | fluoroscopy suite for fluoroscopically-guided bilateral L4-L5 | | | transforaminal epidural steroid injections as part of conservative | | | management for chronic pain with lumbar radiculopathy and degenerative | | | disc disease. After informed consent was obtained, the patient lay in | | | the prone position on the fluoroscopy table. The areas were | | | identified under fluoroscopic guidance. The areas were prepped and | | | draped in sterile fashion. A 25-gauge, 1.5-inch needle was inserted | | | into each region and approximately 3 mL of buffered 1% lidocaine was | | | infused. Then, a 22-gauge spinal needle was inserted into the | | | posterior superior transforaminal space bilaterally and advanced into | | | the epidural space under fluoroscopic guidance. Confirmation into the | | | epidural space was obtained with infusion of approximately 1 mL of | | | Omnipaque contrast which showed epidural flow as well as nerve sheath | | | flow. Then, a combination of 2 mL of 1% lidocaine and 1 mL of 10 mg/mL | | | dexamethasone was infused, divided between the two sides. The patient | | | tolerated the procedure well without complications. Pre- and | | | post-procedure blood pressures were stable. The patient was given | | | verbal as well as written follow-up instructions. Prior to the start | | | of the procedure, the following were performed [...] | | Local 1% Lidocaine | | |visible, agreement [...] | | | | | + + -+ + +---------+ [...] radiculitis, unspecified | + + | Trochanteric bursitis, right hip | + + documented in this encounter Administered Medications + +--------+ +-------+------+------+ | Medication Order | MAR | Action | Dose | Rate | Site | | | Action | Date | | | | + +--------+ +-------+------+------+ | dexamethasone (PF) 10 mg/mL | Given | 03/03/20 | 10 mg | | | | injection 10 mg 10 mg, Other, | | 19 2:59 | | | | | ONCE, Tupaola 03/03/19 at 1515, For 1 | | PM PDT | | | | | dose, When ordered IV push: | | | | | | | Dilute to 10-20 mL with NS and | | | | | | | give slowly over 1-2 minutes., | | | | | | + +--------+ +-------+------+------+ +---+---+ | | | +---+---+ + +-------+ +-------+---+---+ | iohexol (OMNIPAQUE 300) 300 | Given | 03/03/20 | 4 mLs | | | | mg/mL injection 4 mL 4 mL, | | 19 2:57 | | | | | INTRATHECAL, ONCE, Stewarte 03/03/19 at | | PM PDT | | | | | 1515, For 1 dose | | | | | | + +-------+ +-------+---+---+ +---+---+ | | | +---+---+ + +-------+ +-------+---+---+ | lidocaine (PF) 1% injection 2 | Given | 03/03/20 | 2 mLs | | | | mL 2 mL, Other, ONCE, Tue | | 19 2:59 | | | | | 03/03/19 at 1515, For 1 dose | | PM PDT | | | | + +-------+ +-------+---+---+ +---+---+ | | | +---+---+ + +-------+ +-------+---+---+ | lidocaine (PF) 1% injection 2 | Given | 03/03/20 | 2 mLs | | | | mL 2 mL, Intra-articular, ONCE, | | 19 3:02 | | | | | 03/03/19 at 1515, For 1 dose | | PM PDT | | | | + +-------+ +-------+---+---+ +---+---+ | | | +---+---+ + +-------+ +-------+---+ + | lidocaine buffered 0.9% | Given | 03/03/20 | 6 mLs | | Other | | injection 6 mL 6 mL, | | 19 2:55 | | | (Comment | | Intradermal, ONCE, 03/03/19 at | | PM PDT | | | ) | | 1515, For 1 dose | | | | | | + +-------+ +-------+---+ + +---+---+ | | | +---+---+ + +-------+ +-------+---+---+ | triamcinolone acetonide | Given | 03/03/20 | 80 mg | | | | (KENALOG-40) 40 mg/mL injection | | 19 3:01 | | | | | 80 mg 80 mg, Intra-articular, | | PM PDT | | | | | ONCE, 03/03/19 at 1515, For 1 | | | | | [...]
--- OUTSIDE RECORDS SUMMARY | ~2019-10-18 | XMS | Encounter Summary ---
Demographics + + + | Address | [address] | | | [place] [address] | + + + | Home Phone | | + + + | Preferred Language | Unknown | + + + | Marital Status | | + + + | Alevism Affiliation | 1027 | + + + | Race | Unknown | + + + | Ethnic Group | Unknown | + + + Author + + + | Author | [facility] | | | and [place] | + + + | Organization | [facility] | | [...] Providers + +------+ + | Care Chief Librarian Extension Department Name | Role | Phone | + +------+ + | Jesus Mijares MD | PCP | | + +------+ + Encounter Details +--------+ + + + + | Date | Type | Department | Care Team | Description | +--------+ + + + + | 05/14/ | Orders Only | [facility] | Veto Neri, | | | 2016 | | NEPHROLOGY [place] | DIRECTOR APPOINTMENT [address] | | | | [address] | [address] | | | | | [address] [place], [place] | [place], [place] | | | | | [address] | [address] | | | | | [phone] | [phone] | | | | | | | [...] | | | | | | [place] [address] | | | | | | [phone] | | | | | | | [...] +--------+ + + + | EXTERNAL LAB: ANU | Routin | 05/14/2017 | | Results for this | | | e | 1:05 PM | | procedure are in the | | | | PDT | | results section. | + +--------+ + + + | URINALYSIS, REFLEX | Routin | 05/14/2017 | | Results for this | | MICROSCOPIC AND/OR | e | 1:05 PM | | procedure are in the | | CULTURE | | PDT | | results section. | + +--------+ + + + | PROTEIN/CREATININE | Routin | 05/14/2017 | | Results for this | | RATIO, URINE | e | 1:05 PM | | procedure are in the | | | | PDT | | results section. | + +--------+ + + + | URIC ACID | Routin | 05/14/2017 | | Results for this | | | e | 1:05 PM | | procedure are in the | | | | PDT | | results section. | + +--------+ + + + | PARATHYROID HORMONE, | Routin | 05/14/2017 | | Results for this | | INTACT | e | 1:05 PM | | procedure are in the | | | | PDT | | results section. | + +--------+ + + + | MAGNESIUM | Routin | 05/14/2017 | | Results for this | | | e | 1:05 PM | | procedure are in the | | | | PDT | | results section. | + +--------+ + + + | RENAL FUNCTION PANEL | Routin | 05/14/2017 | | Results for this | | | e | 1:05 PM | | procedure are in the | | | | PDT | | results section. | + +--------+ + + + documented in this encounter Results Urinalysis, Reflex Microscopic and/or Culture (05/14/2017 1:05 PM PDT) + + + + + + | Component | Value | Ref Range | Performed | Pathologist | | | | | At | Signature | + + + + + + | Color | Anh | | EXTERNAL | | | | | | LAB | | + + + + + + | Clarity | Clear | | EXTERNAL | | | | | | LAB | | + + + + + + | Spec Grav, | 1.020 | 1.005 - 1.030 | EXTERNAL | [...] + + + + | Total | 25 | | EXTERNAL | | | Protein | | | LAB | | + + + + + + | Blood, | Negative | | EXTERNAL | | | Urine | | | LAB | | + + + + + + | Ketones | 5 | | EXTERNAL | | | | [...] + +---------+ + + Protein/Creatinine Ratio, Urine (05/14/2017 1:05 PM PDT) + +-------+ + + + | Component | Value | Ref Range | Performed | Pathologist | | | | | At | Signature | + +-------+ + + + | Protein/Cre | 60.2 | 0 - 150 | EXTERNAL | [...] + +---------+ + + External Lab: CBC (05/14/2017 1:05 PM PDT) + +-------+ + + + | Component | Value | Ref Range | Performed | Pathologist | | | | | At | Signature | + +-------+ + + + | WBC | 7.4 | 4.5 - 11.0 10 | EXTERNAL | | | | | | LAB | | + +-------+ + + + | RED CELL | 4.26 | 3.8 - 5.1 10 | EXTERNAL | | | COUNT | | | LAB | | + +-------+ + + + | Hgb | 13.5 | 12.0 - 16.0 | EXTERNAL | | | | | g/dL | LAB | | + +-------+ + + + | Hematocrit, | 39.0 | 35 - 45 % | EXTERNAL | | | POC | | | LAB | | + +-------+ + + + | MCV | 91.6 | 81 - 99 fL | EXTERNAL | | | | | | LAB | | + +-------+ + + + | MCH | 32 | 27 - 33 pg | EXTERNAL | | | | | | LAB | | + +-------+ + + + | MCHC | 35 | 30 - 36 g/dL | EXTERNAL | | | | | | LAB | | + +-------+ + + + | Platelet | 237 | 140 - 440 K/ L | EXTERNAL | | | Count | | | LAB | | | Plasma | | | | | + +-------+ + + + | RDW-CV | 14.2 | 10.5 - 15.0 % | EXTERNAL [...] | + +---------+ + + Uric Acid (05/14/2017 1:05 PM PDT) + +-------+ + + + | Component | Value | Ref Range | Performed | Pathologist | | | | | At | Signature | + +-------+ + + + | Uric Acid | 6.5 | 2.3 - 6.6 | EXTERNAL | [...] + +---------+ + + Parathyroid Hormone, Intact (05/14/2017 1:05 PM PDT) + + + + + + | Component | Value | Ref Range | Performed | Pathologist | | | | | At | Signature | + + + + + + | PTH INTACT | 102.1 (A) | 15 - 65 pg/mL | [...] | | + +---------+ + + Magnesium (05/14/2017 1:05 PM PDT) + +---------+ + + + | Component | Value | Ref Range | Performed | Pathologist | | | | | At | Signature | + +---------+ + + + | Magnesium | 1.6 (A) | 1.7 - 2.5 mg/dL | EXTERNAL [...] + +---------+ + + Renal Function Panel (05/14/2017 1:05 PM PDT) + + + + + + | Component | Value | Ref Range | Performed | Pathologist | | | | | At | Signature | + + + + + + | Glucose, | 254 (A) | 70 - 100 mg/dL | EXTERNAL | | | Fasting | | | LAB | | + + + + + + | BUN | 32 (A) | 6 - 23 mg/dL | [...] + + + + | Albumin | 3.7 | 3.5 - 5.0 | EXTERNAL | | | | | | LAB | | + + + + + + | Na | 136 | 132 - 143 | EXTERNAL | | | | | mmol/L | LAB | | + + + + + + | K | 4.0 | 3.6 - 5.1 | EXTERNAL | | | | | mmol/L | LAB | | + + + + + + | Cl | 93 (A) | 95 - 112 mmol/L | EXTERNAL | | | | | | LAB | | + + + + + + | CO2 | 30 | 19 - 31 mmol/L | EXTERNAL | | | | | | LAB | | + + + + + + | Anion Gap | 17.0 | 7 - 21 mmol/L | EXTERNAL | | | | | | LAB | | + + + + + + | eGFR if not | | | EXTERNAL | | | | | | LAB | | | BURMESE | | | | | + + + + + + | Phosphorus, | 3.0 | 2.5 - 5.0 | EXTERNAL | | | Inorganic | | | LAB | | + + + + + + | BUN/Creatin | 26.0 | 6.0 - 28.6 | EXTERNAL | | | ine Ratio | | | LAB | | + + + + + + | Calcium | 9.0 | 8.4 - 10.2 | EXTERNAL | | | | | mg/dL | LAB | | + + + + + + | Estimated | 43 (A) | 60 mg/dL | EXTERNAL | [...]
--- OUTSIDE RECORDS SUMMARY | ~2019-10-18 | XMS | Encounter Summary ---
Demographics + + + | Address | [address] | | | [place] [address] | + + + | Home Phone | | + + + | Preferred Language | Unknown | + + + | Marital Status | | + + + | Latter-Day Affiliation | 1027 | + + + [...] + | 12/05/ | Orders Only | [facility] | Conversion | | | 2019 | | NEPHROLOGY [place] | Transaction, | | | | | [address] | Provider Unknown | | | | | [address] [facility] [place] | | | | | | [address] | (Fax) | | | | | [phone] | | | +--------+ + + + [...] | | | | | | [place] [address] | | | | | | [phone] | | | | | | | [...] + | URIC ACID | Routin | 12/05/2018 | | Results for this | | | e | 12:30 PM | | procedure are in the | | | | PST | | results section. | + +--------+ + + + documented in this encounter Results Uric Acid (12/05/2018 12:30 PM PST) + +-------+ + [...]
--- OUTSIDE RECORDS SUMMARY | ~2019-10-18 | XMS | Encounter Summary ---
Demographics + + + | Address | [address] | | | [place] [address] | + + + | Home Phone | | + + + | Preferred Language | Unknown | + + + | Marital Status | | + + + | Methodist Affiliation | 1027 | + + + | Race | Unknown | + + + | Ethnic Group | Unknown | + + + Author + + + | Author | [facility] | | | and [place] | + + + | Organization | [facility] | | [...] Team Providers + +------+ + | Care Rubber Covering Machine Operator Name | Role | Phone | + +------+ + | Jesus Mijares MD | PCP | | + +------+ + Reason for Visit + + + | Reason | Comments | + + + | Shoulder Pain | right shoulder pain | + + + Service/Procedure (Routine) +--------+--------+ + + + + | Status | Reason | Specialty | Diagnoses / | Referred By | Referred To | | | | | Procedures | Contact | Contact | +--------+--------+ + + + + | Closed | | Physical | Diagnoses | | | | | | Medicine and | Shoulder | Christiano, | Christiano, | | | | Rehabilitatio | pain | Sheryl, | GAMALIEL Saucedo | | | | n | Procedures | [address] | | | | [place] [address] | [address] [place], | | | | | [address] | [place], [place] | [place] [address] | | | | | [place] | [address] | Phone: | | | | | ASPIR&/INJ | Phone: | [phone] | | | | | MAJOR | [phone] | Fax: | | | | | NAYE/MADI W/O | Fax: | [phone] | | | | | [place] | [phone] | | | | | | Shoulder | | | | | | | ameyaa | | | | | | | (in-office) | | | +--------+--------+ + + + + Encounter Details +--------+ + + + + | Date | Type | Department | Care Team | Description | +--------+ + + + + | 01/03/ | Procedure | [facility] [place] | Christiano, | Acute pain of right | | 2018 | visit | PHYSIATRY [address] | [place] [address] | shoulder (Primary | | | | [place], | [address] [place], | Dx); Nontraumatic | | | | [place] [address] | [place] [address] | tear of right | | | | [phone] | [phone] | supraspinatus tendon | | | | | | | [...] + + + | Blood Pressure | 92/61 | 01/03/2018 9:18 AM | | | | | PDT | | + + + + + | Pulse | 109 | 01/03/2018 9:18 AM | | | | | PDT [...] Weight | 88.5 kg (195 lb) | 01/03/2018 9:18 AM | | | | | PDT | | + + + + + | Height | 162.6 cm (5' 4") | 01/03/2018 9:18 AM | | | | | PDT | | + + + + + | Body Mass Index | 33.47 | 01/03/2018 9:18 AM | | | | | PDT | | + + + + + documented in this encounter Progress Notes Sheryl Alvarado PA-C - 01/03/2018 9:20 AM PDTPlease see office note from 11/06/2017, chloé iwona has new complaint of right shoulder pain, a shoulder CT scan was done which showed a full thickness supraspinatus tear. Patient is here today to get a subacromial steroid injec tion. Description of procedure: After the patient gave [...] to watch for any signs of infection. Sheryl Alvarado PA-C, 01/03/2018Electronically signed by Sheryl Alvarado PA-C at 12/13 9:57 AM PDTdocumented in this encounter Plan of Treatment [...] | | | | | | [place] [address] | | | | | | [phone] | | | | | | | [...] + | Acute pain of right shoulder - Primary | + + | Nontraumatic tear of right supraspinatus tendon | + + documented in this encounter Additional Health Concerns + + + + | Infection | Noted Time | Resolved Time | + + + + | Methicillin-resistant Staphylococcus aureus | 03/20/2017 12:00 AM | | | | PDT | | + + + + documented as of this encounter
--- OUTSIDE RECORDS SUMMARY | ~2019-10-18 | XMS | Encounter Summary ---
Demographics + + + | Address | [address] | | | [place] [address] | + + + | Home Phone | | + + + | Preferred Language | Unknown | + + + | Marital Status | | + + + | Temple Affiliation | 1027 | + + + | Race | Unknown | + + + | Ethnic Group | Unknown | + + + Author + + + | Author | [facility] | | | and [place] | + + + | Organization | [facility] | | | [...] Team Providers + +------+ + | Care Relief Driller Name | Role | Phone | + [...] [facility] | | | | | Lumbar | [place], | [address] | | | | | radiculopath | Nilson Jensen MD | [place], | | | | | y | [address] | [place] | | | | | Procedures | [place] | [address] | | | | | PA INJECT | [place], [place] | Phone: | | | | | ANES/STEROID | [address] | [phone] | | | | | FORAMEN | Phone: | Fax: | | | | | LUMBAR/SACRA | [phone] | [phone] | | | | | [address] IMG | Fax: | | | | | | GUIDE ,1 | [phone] | | | | | | LEVEL PA | | | | | | | TRIAMCINOLON | | | | | | | E ACET INJ | | | | | | | NOS, 10 MG | | | | | | | Bilat L4-5 | | | | | | | TFESI-appt | | | | | | | 08/31 | | | +--------+--------+ + + + + Encounter Details +--------+ + + + + | Date | Type | Department | Care Team | Description | +--------+ + + + + | 08/31/ | Hospital | [facility] | Christiano, | Lumbar radiculopathy | | 2015 | Encounter | MED CTR XRAY [address] | [address] Saucedo [address] | (Primary Dx); | | | | [address] [place] | [facility], | 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 - | | | | [phone] | [phone] | 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, 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; | | | | | [facility] | Spondylolisthesis; | | | | | | SACROILIITIS; | | | | | | Chronic back pain; | | | | | | DEGENERATIVE DISC | | | | | | DISEASE, LUMBAR | | | | | | SPINE | +--------+ + + + + Social [...] +---------+ + + | Blood Pressure | 145/98 | 08/31/2015 3:00 PM | | | | | PST | | + +---------+ + + | Pulse | 86 | 08/31/2015 3:00 PM | | | | | PST [...] | | | | | | [place] [address] | | | | | | [phone] | | | | | | | [...] | [place] EPIDURAL STEROID | Routin | 08/31/2015 | Spinal stenosis of | Results for this | | INJECTION LUMBAR | e | 3:30 PM | lumbar region - | procedure are in the | | TRANSFORAMINAL | | PST | L3/L4, adjacent | results section. | | | | | segment disease | | | | | | Spondylolisthesis | | | | | | SACROILIITIS | | | | | | Chronic back pain | | | | | | DEGENERATIVE [...] 08/31/2015 Bilateral Transforaminal Epidural Steroid Injections | [facility] | | Diagnosis: Lumbar radiculopathy ICD-10 Code M54.16 Rebecca | [facility] | | Chanell Jonathan presents to the fluoroscopy suite for [facility] | | fluoroscopically-guided bilateral L4-L5 transforaminal epidural [...] [address] | [place] | [phone] | | [facility] | | [address] | | | - IMAGING | | [...] in this encounter Administered Medications + +--------+ +-------+------+ + | Medication Order | MAR | Action | Dose | Rate | Site | | | Action | Date | | | | + +--------+ +-------+------+ + | betamethasone (CELESTONE | Given | 08/31/20 | 12 mg | | Other | | SOLUSPAN) injection 12 mg 12 mg, | | 15 3:32 | | | (Comment | | Intramuscular, ONCE, Wed | | PM PST | | | ) | | 08/31/15 at 1545, For 1 dose, | | | | | | | Shake well. Not for IV use., | | | | | | + +--------+ +-------+------+ + +---+---+ | | | +---+---+ + +-------+ +-------+---+---+ | iohexol (OMNIPAQUE 300) 300 | Given | 08/31/20 | 4 mLs | | | | mg/mL injection 4 mL 4 mL, | | 15 3:31 | | | | | INTRATHECAL, ONCE, 08/31/15 | | PM PST | | | | | at 1545, For 1 dose | | | | | | + +-------+ +-------+---+---+ +---+---+ | | | +---+---+ + +-------+ +------+---+---+ | lidocaine (PF) 1% injection 1 | Given | 08/31/20 | 1 mL | | | | mL 1 mL, EPIDURAL, ONCE, Wed | | 15 3:32 | | | | | 08/31/15 at 1545, For 1 dose | | PM PST | | | | + +-------+ +------+---+---+ +---+---+ | | | +---+---+ + +-------+ +-------+---+ + | lidocaine 1% injection 5 mL 5 | Given | 08/31/20 | 5 mLs | | Other | | mL, Intradermal, ONCE, Wed | | 15 3:45 | | | (Comment | | 08/31/15 at 1545, For 1 dose | | PM PST | | | ) | + +-------+ +-------+---+ + +---+---+ | | | +---+---+ + +-------+ +-------+---+---+ | sodium bicarbonate (NEUT) 4% | Given | 08/31/20 | 2 mLs | | | | injection 2 mL 2 mL, Topical, | | 15 3:26 | | | | | ONCE, 08/31/15 at 1545, For 1 | | PM PST | | | | | dose | | | | | | + +-------+ +-------+---+---+ +---+---+ | | | +---+---+ documented in this encounter"
--- OUTSIDE RECORDS SUMMARY | ~2019-10-18 | XMS | Encounter Summary ---
Demographics + + + | Address | [address] | | | [place] [address] | + + + | Home Phone | | + + + | Preferred Language | Unknown | + + + | Marital Status | | + + + | Confucianism Affiliation | 1027 | + + + | Race | Unknown | + + + | Ethnic Group | Unknown | + + + Author + + + | Author | [facility] | | | and [place] | + + + | Organization | [facility] | | | [...] Team Providers + +------+ + | Care Quarter Section Ironer Name | Role | Phone | + +------+ + | Jesus Mijares MD | PCP | | + +------+ + Encounter Details +--------+---------+ + + + | Date | Type | Department | Care Team | Description | +--------+---------+ + + + | 09/22/ | Office | [facility] | Mary Moe ANP | Paroxysmal atrial | | 2019 | Visit | [facility] | [address] | flutter (HCC) | | | | [address] | [place], [place] | (Primary Dx); PSVT | | | | [place], [place] | [address] | (paroxysmal | | | | [phone] | | supraventricular | | | | [phone] | | tachycardia) ([facility]); | | | | | | Paroxysmal atrial | | | | | | fibrillation (HCC); | | | | | | Hypertension, | | | | | | unspecified type; | | | | | | Congestive heart | | | | | | failure, unspecified | | | | | | HF chronicity, | | | | | | unspecified heart | | | | | | failure type ([facility]); | | | | | | Cardiac pacemaker in | | | | | | situ | +--------+---------+ + + + Social History [...] + + + | Blood Pressure | 130/72 | 09/22/2019 9:49 AM | | | | | PST | | + + + + + | Pulse | 61 | 09/22/2019 9:49 AM | | | | | PST | | + + + + + | Temperature | - | - | | + + + + + | Respiratory Rate | - | - | | + + + + + | Oxygen Saturation | 98% | 09/22/2019 9:49 AM | | | | | PST | | + + + + + | Inhaled Oxygen | - | - | | | Concentration | | | | + + + + + | Weight | 69.7 kg (153 lb 11.2 | 09/22/2019 9:49 AM | | | | oz) | PST | | + + + + + | Height | 162.6 cm (5' 4") | 09/22/2019 9:49 AM | | | | | PST | | + + + + + | Body Mass Index | 26.38 | 09/22/2019 9:49 AM | | | | | PST | | + + + + + documented in this encounter Progress Notes Mary Moe ANP - 09/22/2019 9:30 AM PST ELECTROPHYSIOLOGY OUTPATIENT FOLLOW UP PATIENT NAME: Rebecca Castillo : 1940: AGE: 79 y.o. (home) : PRIMARY CARE: Jesus Mijares MD Requesting Physician: No referring provider defined for this encounter. Plan SUMMARY OF EP RECOMMENDATIONS Continue current device settings, as appropriate device function Continue current medications Return to EP in 2 months or sooner PRN EK09/22/2019 personally reviewed and interpreted reveals AV pacing with prolonged AV con duction HR 60, WA 284, QRSD 96, QTC 440 EP PROBLEMS ADDRESSED AT TODAY'S VISIT Problem List Atrial fibrillation Overview Overview: Paroxysmal, "for most of my adult life", on Digitek for > 40 years 09/22/2019 AF burden has improved to 1%. She is not grossly symptomatic when she goes in to atrial fib rillation. Longest episode 28 minutes. She continues on Sotalol 80mg BID with significantly improved burden, down from 75%. This dosage of Sotalol cannot be increased due to her CKD. R equest labwork from [facility]. Check Digoxin level. Check TSH. Cardiac pacemaker in situ Overview Setrox S-53 cm, model 349572, #[id number] lead was placed into the right ventricle and scre wed into position on the septum, midway between the apex and outflow tract. The final pacing threshold was 1 V at 0.5 msec, with R waves of 5.9 mV and the impedance was 550 ohms. There was no diaphragmatic pacing at 10 V. Medtronic model 5076-45 cm lead was placed into the high right atrium and screwed into position anteriorly. The lead needed to be repositioned several times because of elevated thresholds in certain locations. In the final location, the pacing threshold was 1.2 V at 0.5 msec, and P waves were 1.9 mV with an impedance of 360 ohms. The leads were attached to a [employer] Etrinsa 8 , model 884361, serial #[id number] pacemaker. FINAL SETTINGS FOR THE DEVICE Mode for pacing: DDD-CLS with a lower rate of 60 and an upper rate of 130 beats per minute. Pacing and sensing will be bipolar in both chambers. I-OPT is turned on, to hopefully encourage intrinsic conduction through the AV node. The AV delay is intentionally programmed long for the same reason. The outputs will be 3 V at 0.4 msec in both chambers. FINAL IMPRESSION Good pacing and sensing thresholds. Appropriate device function seen. 09/22/2019 Normal lead thresholds and battery status. Device was adjusted to optimize battery length w hile maintaining adequate safety margins. Apacing 70%, RV pacing 66%. 7.9 years battery long evity. 1% burden of AF, 11 AT/AF events in last month, longest episode 28 minutes. Rate over all is well-controlled. CHF (congestive heart failure) Overview Overview: Chronic Diastolic Heart Failure, predominantly right-sided sxs (edema) 09/22/2019 Volume status improved. Euvolemic on examination today. Hypertension Overview 09/22/2019 SBP improved since increasing Losartan 3 weeks ago. She keeps BP log at home. Paroxysmal atrial flutter COMPREHENSIVE PROBLEM LIST Patient Active Problem List Diagnosis Date Noted Chronic diastolic heart failure (HCC) 06/16/2019 Hx of corticosteroid therapy 02/18/2019 Subacromial bursitis of right shoulder joint 12/01/2018 CHF (congestive heart failure) ([facility]) 07/31/2018 Note Last Updated: 09/22/2019 Overview: Chronic Diastolic Heart Failure, predominantly right-sided sxs (edema) 09/22/2019 Volume status improved. Euvolemic on examination today. Hypokalemia 06/04/2018 Hypomagnesemia 06/04/2018 Rotator cuff tear, right 02/06/2018 Nontraumatic tear of right supraspinatus tendon 01/03/2018 Acute pain of right shoulder 11/12/2017 Cardiac pacemaker in situ 09/03/2017 Note Last Updated: 09/22/2019 Setrox S-53 cm, model 998801, #[id number] lead was placed into the right ventricle and scre wed into position on the septum, midway between the apex and outflow tract. The final pacing threshold was 1 V at 0.5 msec, with R waves of 5.9 mV and the impedance was 550 ohms. There was no diaphragmatic pacing at 10 V. Medtronic model 5076-45 cm lead was placed into the high right atrium and screwed into position anteriorly. The lead needed to be repositioned several times because of elevated thresholds in certain locations. In the final location, the pacing threshold was 1.2 V at 0.5 msec, and P waves were 1.9 mV with an impedance of 360 ohms. The leads were attached to a [employer] Etrinsa 8 , model 022592, serial #[id number] pacemaker. FINAL SETTINGS FOR THE DEVICE Mode for pacing: DDD-CLS with a lower rate of 60 and an upper rate of 130 beats per minute. Pacing and sensing will be bipolar in both chambers. I-OPT is turned on, to hopefully encourage intrinsic conduction through the AV node. The AV delay is intentionally programmed long for the same reason. The outputs will be 3 V at 0.4 msec in both chambers. FINAL IMPRESSION Good pacing and sensing thresholds. Appropriate device function seen. 09/22/2019 Normal lead thresholds and battery status. Device was adjusted to optimize battery length w hile maintaining adequate safety margins. Apacing 70%, RV pacing 66%. 7.9 years battery long evity. 1% burden of AF, 11 AT/AF events in last month, longest episode 28 minutes. Rate over all is well-controlled. Depression 03/20/2017 Note Last Updated: 07/31/2018 Overview: She has had no fun for quite a while. Does beadwork and watches TV. 09/03/2017 Enjoys making jewelry for her friends. Gastroesophageal reflux 03/20/2017 Note Last Updated: 03/03/2019 She has symptoms of gastroesophageal reflux. Takes Rolaids on a regular basis. Sacroiliitis, not elsewhere classified (HCC) 09/11/2016 Sick sinus syndrome (HCC) 06/05/2016 Note Last Updated: 09/01/2019 -- 2 Week Event Recorder (12/20/16): predominantly sinus bradycardia (78%), ave HR 52 bpm ( max HR 78), with paroxysmal atrial fibrillation/flutter with RVR, (overall burden 1.93%), an d episodes of PSVT, rare PVCs, PACs. The 2 pauses, 4.8 seconds duration, only occurred at th e time of conversion from atrial flutter to sinus rhythm. -- 30 Day Event Recorder (starting 04/13/15): paroxysmal atrial fibrillation and atrial flutt er, present for 76% of the time on with a rapid ventricular response, and an average VR of 1 05 bpm. The 7 reported symptoms did not clearly correspond to any notable occurrences in the setting of these atrial arrhythmias. NSR 24%. 03/12/2017 Recent event monitor shows evidence of chronotropic incompetence. She needs additional neg ative chronotropic agents to control her rhythm and that is impossible to safely prescribe, without a pacemaker.She reports symptoms consistent with symptomatic bradycardia secondary t o sick sinus syndrome. The goals, risks and benefits of pacemaker implantation were discusse d with the patient and she desires to proceed. 09/01/2019 status post permanent pacemaker implantation. Good heart rate histograms are documented giv en the CLS rate response algorithm on her Biotronik pacemaker. Trochanteric bursitis of right hip 03/06/2016 Chronic kidney disease, stage III (moderate) ([facility]) 12/06/2015 Paroxysmal atrial flutter ([facility]) 12/06/2015 Hypertension 12/06/2015 Note Last Updated: 09/22/2019 09/22/2019 SBP improved since increasing Losartan 3 weeks ago. She keeps BP log at home. Type 2 diabetes mellitus ([facility]) 12/06/2015 Note Last Updated: 12/06/2015 Overview: was on insulin at one time, stopped after weight loss Atrial fibrillation ([facility]) 12/06/2015 Note Last Updated: 09/22/2019 Overview: Paroxysmal, "for most of my adult life", on Digitek for > 40 years 09/22/2019 AF burden has improved to 1%. She is not grossly symptomatic when she goes in to atrial fib rillation. Longest episode 28 minutes. She continues on Sotalol 80mg BID with significantly improved burden, down from 75%. This dosage of Sotalol cannot be increased due to her CKD. R equest labwork from [facility]. Check Digoxin level. Check TSH. Essential hypertension 03/28/2015 Hyperlipidemia 03/28/2015 Chest pain 03/28/2015 Bradycardia 03/28/2015 Spinal stenosis of lumbar region - L3/L4, adjacent segment disease 08/09/2014 Lumbar scoliosis 08/09/2014 Chronic back pain 06/24/2014 Facet arthritis of lumbar region 03/06/2013 Carpal tunnel syndrome, bilateral 01/26/2013 LUMBAR RADICULOPATHY CAD DEGENERATIVE DISC DISEASE, LUMBAR SPINE 02/26/2012 HISTORY OF PRESENT ILLNESS This patient presents 09/22/2019 Reporting doing well. No chest pain. No shortness of charlene th, PND or orthopnea. No signs or symptoms of bleeding. Compliant with medications. Her katie n issue continues to be issues with back pain. She is unable to get steroid injections any longer as she has been having decreased bone density. These were very helpful for her in th e past. She denies any sensation of sustained tachycardia. She does have palpitations whic h are not overly bothersome to her. She continues to enjoy making jewelry. She recently go t a new Halonate ring Allergies Allergen Reactions Sitagliptin Rash Penicillin V Potassium Sulfa Antibiotics Current Medications Current Outpatient Medications: acetaminophen (TYLENOL) 500 mg tablet, Take 500 mg by mouth every 6 hours as needed fo r Pain., Disp: , Rfl: allopurinol (ZYLOPRIM) 100 mg tablet, TAKE ONE TABLET BY MOUTH ONCE DAILY, Disp: , Rfl : amitriptyline (ELAVIL) 10 mg tablet, Take 10 mg by mouth nightly., Disp: , Rfl: atorvaSTATin (LIPITOR) 20 mg tablet, Take 20 mg by mouth., Disp: , Rfl: baclofen (LIORESAL) 20 mg tablet, , Disp: , Rfl: cephalexin (KEFLEX) 500 mg capsule, Take 500 mg by mouth 4 times daily., Disp: , Rfl: cholecalciferol (CHOLECALCIFEROL) 1,000 units capsule, Take 1,000 Units by mouth Daily ., Disp: , Rfl: cloNIDine (CATAPRES) 0.1 mg tablet, Take 0.1 mg by mouth 3 times daily., Disp: , Rfl: cyclobenzaprine (FLEXERIL) 10 mg tablet, Take 10 mg by mouth 3 times daily as needed., Disp: , Rfl: digoxin (LANOXIN) 125 mcg tablet, Take 125 mg by mouth nightly., Disp: , Rfl: 0 HYDROcodone-acetaminophen (NORCO) 10-325 mg per tablet, Take 1 tablet by mouth every 4 hours as needed., Disp: , Rfl: losartan (COZAAR) 50 mg tablet, Take 1 tablet by mouth Daily., Disp: 90 tablet, Rfl: 3 sotalol (BETAPACE) 80 mg tablet, Take 80 mg by mouth 2 times daily., Disp: , Rfl: torsemide (DEMADEX) 20 mg tablet, Take 20 mg by mouth 3 times daily., Disp: , Rfl: traZODone (DESYREL) 100 mg tablet, Take 100 mg by mouth nightly., Disp: , Rfl: 3 warfarin (COUMADIN) 4 MG tablet, Taking 4 mg tablet on Saturday and Saturday, Disp: , R fl: warfarin (COUMADIN) 6 MG tablet, Take 6 mg by mouth Daily. Patient taking 6 mg tablet on Saturday, Saturday, , and Saturday, Disp: , Rfl: 99 The past history, social history, family history and problem list were reviewed and update d with changes of any significance. DATA Laboratory values which I reviewed 09/22/2019 are as follows: Lab Results Component Value Date WBC 8.6 12/05/2018 RBC 4.47 12/05/2018 HGB 14.2 12/05/2018 Lab Results Component Value Date NA 143 12/05/2018 K 4.2 12/05/2018 CL 98 12/05/2018 CO2 30 12/05/2018 ANIONGAP 19.2 12/05/2018 GLUF 117 (A) 12/05/2018 BUN 19 12/05/2018 BCR 21.8 12/05/2018 EGFR 63 12/05/2018 Lab Results Component Value Date CHOL 159 03/14/2016 TRIG 117 03/14/2016 GLUF 117 (A) 12/05/2018 Lab Results Component Value Date TSH 5.20 (H) 03/29/2015 ROS I have personally reviewed and agree with ROS listed by ЕЛЕНА villarreal. All other systems are reviewed and negative. PHYSICAL EXAM BP 130/72 | Pulse 61 | Ht 1.626 m (5' 4") | Wt 69.7 kg (153 lb 11.2 oz) | SpO2 98% | B OK 26.38 kg/m Physical Exam Constitutional: She is oriented to person, place, and time. She appears well-developed and well-nourished. HENT: Head: Normocephalic and atraumatic. Eyes: Pupils are equal, round, and reactive to light. Neck: No JVD present. No thyromegaly present. Cardiovascular: Normal rate and regular rhythm. No murmur heard. Pulmonary/Chest: Effort normal and breath sounds normal. She has no rales. Abdominal: Soft. Bowel sounds are normal. There is no tenderness. Musculoskeletal: General: No edema. Neurological: She is alert and oriented to person, place, and time. Skin: Skin is warm and dry. Device incision line is well approximated with no e/o infection or complication. Psychiatric: She has a normal mood and affect. Vitals reviewed. SAI Freeman 09/22/2019 11:38 AM *This report has been prepared using a voice recognition system. The report was reviewed f or accuracy, however, sound-alike word errors, addition and/or deletions may occur. If there is any question about this report please contact me. Patient Instructions No notes on file Brittani Ga Medic al [employer] Dr[employer] Press Operator - 09/22/2019 9:30 AM Debbie CHRISTIANSEN Note- Electrophysiology Patient ID: Rebecca Castillo is a 79 y.o. female. Review of Systems Constitutional: Negative for chills, fever, malaise/fatigue and weight loss. HENT: Negative for congestion and sore throat. Respiratory: Negative for cough and shortness of breath. Cardiovascular: Positive for palpitations and leg swelling. Negative for chest pain. Gastrointestinal: Negative for abdominal pain and blood in stool. Genitourinary: Negative for hematuria. Musculoskeletal: Positive for myalgias. Neurological: Negative for dizziness, sensory change and loss of consciousness. Have you ever had a sleep study? (NO) Do you use oxygen? (NO) Do you use CPAP? (NO) Do you snore? (NO) Do you fall asleep for no reason during the day? (NO) Do you stop breathing at night? (NO) Do you feel excessively tired during the day? (NO) Samra browned in this encounter Plan of Treatment +--------+ + + + + | Date | Type | Specialty | Care Team | Description | +--------+ + + + + | 11/17/ | Office | Cardiology | Rajendra Fowler, | | | 2019 | Visit | | [address] | | | | | | [place], | | | | | | [place] [address] | | | | | | [phone] | | | | | | | [...] | + +--------+ + + + | ECG 12 LEAD | Routin | 09/22/2019 | Paroxysmal atrial | Results for this | | | e | 9:47 AM | flutter (HCC) PSVT | procedure are in the | | | | PST | (paroxysmal | results section. | | | | | supraventricular | | | | | | tachycardia) ([facility]) | | | | | | Paroxysmal atrial | | | | | | fibrillation (HCC) | | + +--------+ + + + documented in this encounter Results ECG 12 lead (09/22/2019 9:47 AM PST) + + + + + + | Component | Value | Ref Range | Performed | Pathologist | | | | | At | Signature | + + + + + + | VENTRICULAR | 60 | BPM | [facility] | | | RATE EKG | | | | | + + + + + + | ATRIAL RATE | 60 | BPM | [facility] | | + + + + + + | P-R | 284 | ms | [facility] | | | INTERVAL | | | | | + + + + + + | QRS | 96 | ms | [facility] | | | DURATION | | | | | + + + + + + | Q-T | 440 | ms | [facility] | | | INTERVAL | | | | | + + + + + + | Q-T | 440 | ms | [facility] | | | INTERVAL | | | | | | (CORRECTED) | | | | | + + + + + + | QRS AXIS | 42 | degrees | [facility] | | + + + + + + | T AXIS | 82 | degrees | [facility] | | + + + + + + | INTERPRETAT | Please refer to | | [facility] | | | ION TEXT | Providers office visit | | | | | | note for Providers | | | | | | Interpretation.Confirmed | | | | | | by [facility] [place] Read Only, | | | | | | [facility] Junie ([id number]), | | | | | | editor index Kervin Coker | | | | | | ([id number]) on 09/22/2019 | | | | | | 10:33:52 AM | | | | + + + [...] | | + +---------+ + + | [facility] | | | | + +---------+ + + documented in this encounter Visit Diagnoses + + | Diagnosis | + + | Paroxysmal atrial flutter (HCC) - Primary Atrial flutter | + + | PSVT (paroxysmal supraventricular tachycardia) ([facility]) Paroxysmal supraventricular | | tachycardia | + + | Paroxysmal atrial fibrillation (HCC) Atrial fibrillation | + + | Hypertension, unspecified type | + + | Congestive heart failure, unspecified HF chronicity, unspecified heart failure type | | (HCC) | + + | Cardiac pacemaker in situ | + + documented in this encounter Additional Health Concerns + + + + | Infection | Noted Time | Resolved Time | + + + + | Methicillin-resistant Staphylococcus aureus | 03/20/2017 12:00 AM | | | | PDT | | + + + + documented as of this encounter
--- OUTSIDE RECORDS SUMMARY | ~2019-10-18 | XMS | Encounter Summary ---
Demographics + + + | Address | [address] | | | [place] [address] | + + + | Home Phone | | + + + | Preferred Language | Unknown | + + + | Marital Status | | + + + | Buddhist Affiliation | 1027 | + + + [...] Team Providers + +------+ + | Care Chairman Emeritus Name | Role | Phone | + [...] | Radiology | Diagnoses | | [facility] | | | | | | Sabrinacz, | [address] | | | | | Degenerative | Sheryl, | [place], | | | | | disc | PA-C [address] | [place] | | | | | disease, | [address] | [address] | | | | | lumbar | [place], [place] | Phone: | | | | | Chronic back | [address] | [phone] | | | | | pain | Phone: | Fax: | | | | | Idiopathic | [phone] | [phone] | | | | | scoliosis | Fax: | | | | | | Procedures | [phone] | | | | | | MRI Lumbar | | | | | | | Spine w wo | | | | | | | Contrast | | | | | | | MRI | | | +--------+--------+ + + + + Reason for Visit + + + | Reason | Comments | + + + | Back Pain | mid to low back pain radiating to bilateral legs | + + + Encounter Details +--------+---------+ + + + | Date | Type | Department | Care Team | Description | +--------+---------+ + + + | 06/24/ | Office | [facility] | Sabrinacz, | SACROILIITIS | | 2013 | Visit | PHYSIATRY [address] | GAMALIEL Saucedo [address] | (Primary Dx); | | | | [address] [place], | [facility], | DEGENERATIVE DISC | | | | [place] [address] | [place] [address] | DISEASE, LUMBAR | | | | [phone] | [phone] | SPINE; Chronic back | | | | | | pain; SCOLIOSIS , | | | | | | IDIOPATHIC | +--------+---------+ + + + Social History [...] + + + | Blood Pressure | 134/94 | 06/24/2014 9:56 AM | | | | | PDT | | + + + + + | Pulse | 98 | 06/24/2014 9:56 AM | | | | | PDT [...] + + + + | Weight | 93 kg (205 lb) | 06/24/2014 9:56 AM | | | | | PDT | | + + + + + | Height | 167.6 cm (5' 6") | 06/24/2014 9:56 AM | | | | | PDT | | + + + + + | Body Mass Index | 33.09 | 06/24/2014 9:56 AM | | | | | PDT | | + + + + + documented in this encounter Patient Instructions Patient Instructions Sheryl Alvarado PA-C - 06/24/2014 10:18 AM PDT Follow-up at the hospital thirty minutes before [...] of the procedure you must provide a hole digger truck driver to take you home. For all procedur es it is recommended that someone else drive you home. documented in this encounter Progress Notes Sheryl Alvarado PA-C - 06/24/2014 10:26 AM PDTFormatting of this note might be differe nt from the original. CHIEF COMPLAINT: Chief Complaint Patient presents with Back Pain mid to low back pain radiating to bilateral legs HISTORY OF PRESENT ILLNESS: The patient is a 74 y.o. female being seen today in follow-up for complaints of low back pa in. The patient has been seen for this complaint in the past, with initial visit started b tomi Chaudhry. Previously it was recommended that she receive bilateral SI joint injecti on. She has also received bilateral L4-5 epidural injections and trochanteric bursa injecti on. Since she was last seen 1 year ago, she reports having lumbar fusion of the L4/L5 regio n. This was performed on 08/07/13 in [place] [address] a Dr[address] Yong Pena. She reports that the tr eatment was effective in reducing her symptoms by 50%. She rates her pain is now an 8/10, wh ere before surgery it is a 15/10. She describes the pain as constant dull with occasional sharpness depending on movement. Her symptoms worsen with bending, twisting. Her symptoms improve with rest. The patient [...] of L4/L5, use of hydrocodone 3x/day and flexeril. Patient's medications, allergies, past medical, surgical, social and family histories were reviewed and updated as appropriate. CURRENT MEDICATIONS: Current Outpatient Prescriptions Medication Sig Dispense Refill acebutolol (SECTRAL) 200 mg capsule Take 200 mg by mouth 2 times daily. amitriptyline (ELAVIL) 25 mg tablet Take 25 mg by mouth nightly. CALCIUM CARBONATE-VITAMIN D PO TABS cyclobenzaprine (FLEXERIL) 10 mg tablet Take 10 mg by mouth 3 times daily. digoxin (LANOXIN) 250 mcg tablet Take 250 mcg by mouth Daily. glimepiride (AMARYL) 4 mg tablet Take 4 mg by mouth 2 times daily. hydrochlorothiazide (MICROZIDE) 12.5 MG capsule Take 12.5 mg by mouth Daily. HYDROcodone-acetaminophen (NORCO) 10-325 mg per tablet Take 10-325 mg by mouth 3 times daily as needed. Ibuprofen (ADVIL PO) CAPS as needed insulin glargine (LANTUS) 100 units/mL injection 40 units daily lisinopril (PRINIVIL,ZESTRIL) 40 MG tablet Take 40 mg by mouth Daily. metFORMIN (GLUCOPHAGE) 850 mg tablet Take 850 mg by mouth 2 times daily. Methylsulfonylmethane (MSM) 1000 MG CAPS 2 capsules daily ALLERGIES: Allergies Allergen Reactions Penicillin V Potassium [...] rashes. HEMATOLOGIC/LYMPHATIC: No abnormal bleeding PHYSICAL EXAMINATION: Blood pressure 134/94, pulse 98, height 1.676 m (5' 6"), weight 92.987 kg (205 lb). Body ma ss index is 33.10 kg/(m^2). GENERAL: The patient is well developed and well nourished. She does appear uncomfortable w hen seated. HEENT: HEAD/FACE: EYES: EARS: NASOPHARNYX: OROPHARNYX: [...] has no apparent deficits with short or half-way memory. She has appropriate fund of knowledge [...] There was tenderness to palpation over the right greater trochanters and bilateral sacral sulci. The patient localized the majority of the pain to the L3/L4 region above the fusion with more pain to the bilateral SI joints. Lumbar facet l oading was positive. Strength testing showed 5/5 strength throughout the lower extremities. The patient was able to heel and toe walk without difficulty. There was no redness, effus ion, warmth or joint line tenderness in the knees or ankles. RADIOGRAPHIC REVIEW: There has been no new MRI since before the surgery 1 year ago. ASSESSMENT: Encounter Diagnoses Name Primary? SACROILIITIS Yes DEGENERATIVE DISC DISEASE, LUMBAR SPINE Chronic back pain SCOLIOSIS , IDIOPATHIC PLAN: 1. The patient's symptoms are multi-factorial in nature. She has not had any new imaging since her surgery 1 year ago. I do think we need to get new imaging to better determine our most effective strategy. Once we did new imaging we will determine which injection is best for her. At today's visit I would recommend bilateral SI joint injections as she is signif icantly tender to palpation over the bilateral SI joints. The patient will be put on the sc hedule for an injection and hopefully we'll get the MRI approved and read before this to det ermine the most appropriate level. 2. Medications have been reviewed at today's visit with no changes made at this time. 3. The patient will follow up 2 weeks after the injection. ELECTRONICALLY SIGNED BY: Sheryl Alvarado PA-C, 06/24/2014 SUPERVISING PHYSICIAN: Nilson Chaudhry MD, who was present in the clinic today during this visit. CC: Dr. Mijares documented in t his encounter Plan of [...] [place], | | | | | | [place] [address] | | | | | | [phone] | | | | | | | [...] documented as of this encounter Results [place] Sacroiliac Injection Left (07/19/2014 1:13 PM PDT) + + | Specimen | + + | | + + + + + | Narrative | Performed At | + + + | 07/19/2014 Bilateral Sacroiliac Joint Injection Clinical History: | [facility] | | Sacroiliitis ICD-9 720.0 Rebecca Castillo presents to the | [facility] | | fluoroscopy suite for fluoroscopically guided bilateral sacroiliac [facility] | | joint steroid injections as part [...] | + + + + + | [facility]. | [address] | [place] | [phone] | | [facility] | | [address] | | | - IMAGING | | | | + + + + + FL Sacroiliac Injection Right (07/19/2014 1:13 PM PDT) + + | Specimen | + + | | + + + + + | Narrative | Performed At | + + + | 07/19/2014 Bilateral Sacroiliac Joint Injection Clinical History: | [facility] | | Sacroiliitis ICD-9 720.0 Rebecca Castillo presents to the | [facility] | | fluoroscopy suite for fluoroscopically guided bilateral sacroiliac [facility] | | joint steroid injections as part [...] + | [facility] | [address] | [place] | [phone] | | [facility] | | [address] | | | - IMAGING | | | | + + + + + MRI Lumbar Spine w wo Contrast (07/15/2014 11:32 AM PDT) + + | Specimen | + + | | + + + + + | Narrative | Performed At | + + + | EXAM: MRI LUMBAR SPINE W WO CONTRAST dated 07/15/2014 10:39 AM | [facility] | | HISTORY:chronic low back pain, scoliosis, s/p lumbar fusion | LAB | | COMPARISON: Plain films dated January 21, 2012 and lumbar spine MRI | | | dated November 21, 2011. TECHNIQUE: Multiplanar multisequence MR | | | imaging of the lumbar spine performed prior to and following the | | | uneventful intravenous administration of 10 cc of gadolinium | | | contrast. This is performed on a 1.5Tesla MRI scanner. | | | FINDINGS:There are 5 lumbar-type vertebral bodies. This is either | | | assumed for counting purposes or documented on prior studies. | | | Interval placement of posterior transpedicular screws and vertical | | | rods at L4 and L5. Interbody graft at the intervening disc space. | | | Significant dextroconvex scoliosis. Right lateral listhesis of L2 | | | on L3 and L3 on L4. Left lateral listhesis of L1 on L2. | | | Anterolisthesis of L5 on S1. Stable anterolisthesis of L4 on L5. | | | There are some Modic type I endplate changes at L5-S1 on the right. | | | There are Modic type II endplate changes at L2-L3 and L4-L5. | | | There are several small hemangiomas. There are no compression | | | deformities. There is diffuse disc desiccation. There is diffuse | | | disc narrowing. The conus is seen terminating at the thoracolumbar | | | junction. The visible distal cord is unremarkable. Posterior disc | | | protrusions at T12 and L1 are unchanged and do not significantly | | | narrow the central spinal canal. The following levels are | | | evaluated in the axial plane: L2-3: Broad posterior disc | | | protrusion. Facet arthrosis. Asymmetric disc narrowing on the | | | left. Mild narrowing of the central spinal canal. Mild to | | | moderate encroachment on the left subarticular recess. Moderate left | | | neural foraminal narrowing. This level is mildly progressed. | | | L3-4: Circumferential disc bulge. This includes a broad posterior | | | disc protrusion which extends into the neural foramen. Facet | | | arthrosis bilaterally. Left facet effusion. There is significant | | | encroachment on the left subarticular recess. There is overall | | | moderate to severe narrowing of the central spinal canal. There is | | | moderate left neural foraminal narrowing. There is mild right | | | neural foraminal narrowing. All findings have progressed at this | | | level. L4-5: Postsurgical changes. Patent central spinal canal. | | | Mild residual foraminal narrowing. L5-S1: Anterolisthesis. | | | Uncovering of the disc and disc protrusion. Moderate facet | | | arthrosis bilaterally. The central spinal canal is patent. | | | Moderate to severe right neural foraminal narrowing. The left is | | | patent. The foraminal narrowing on the right has progressed. | | | The visible paravertebral soft tissues are unremarkable and unchanged. | | | Post gadolinium sagittal sequences are acquired. There is motion | | | degradation. No definite areas of abnormal enhancement in the | | | surgical bed. However, this is limited due to hardware artifact and | | | motion. The patient could not tolerate further imaging for the | | | axial sequence. IMPRESSION - Interval postsurgical change | | | with posterior and interbody fusion performed at L4-L5. The central | | | spinal canal and disc spacing at this level is improved. The | | | central spinal canal remains patent. The neural foramen also appear | | | to be patent. Progressive spondylosis above the operative level | | | with new significant central spinal canal, subarticular recess, | | | foraminal narrowing at L3-L4, as detailed above. Mildly | | | progressive spondylosis at L2-L3 and L5-S1, as above. Dictated and | | | Signed by: Mitch Villanueva MD Electronically signed: 07/15/2014 | | | 12:18 PM | | + + + + + | Procedure Note | + + | Roberto Murry Results In - 07/15/2014 12:21 PM PDT EXAM: MRI LUMBAR SPINE W WO CONTRAST | | dated 07/15/2014 10:39 AMHISTORY:chronic low back pain, scoliosis, s/p lumbar | | fusionCOMPARISON: Plain films dated January 21, 2012 and lumbar spine MRI dated , | | 2011.TECHNIQUE: Multiplanar multisequence MR imaging of the lumbar spine performedprior | | to and following the uneventful intravenous administration of 10 cc ofgadolinium | | contrast. This is performed on a 1.5Tesla MRI scanner. FINDINGS:There are 5 lumbar-type | | vertebral bodies. This is either assumed forcounting purposes or documented on prior | | studies. Interval placement of posterior transpedicular screws and vertical rods at | | L4and L5. Interbody graft at the intervening disc space. Significantdextroconvex | | scoliosis. Right lateral listhesis of L2 on L3 and L3 on L4. Leftlateral listhesis of | | L1 on L2. Anterolisthesis of L5 on S1. Stableanterolisthesis of L4 on L5. There are | | some Modic type I endplate changes atL5-S1 on the right. There are Modic type II | | endplate changes at L2-L3 andL4-L5. There are several small hemangiomas. There are no | | compressiondeformities. There is diffuse disc desiccation. There is diffuse | | discnarrowing. The conus is seen terminating at the thoracolumbar junction. Thevisible | | distal cord is unremarkable. Posterior disc protrusions at T12 and L1are unchanged and | | do not significantly narrow the central spinal canal.The following levels are evaluated | | in the axial plane:L2-3: Broad posterior disc protrusion. Facet arthrosis. Asymmetric | | discnarrowing on the left. Mild narrowing of the central spinal canal. Mild | | tomoderate encroachment on the left subarticular recess. Moderate left neuralforaminal | | narrowing. This level is mildly progressed.L3-4: Circumferential disc bulge. This | | includes a broad posterior discprotrusion which extends into the neural foramen. Facet | | arthrosis bilaterally. Left facet effusion. There is significant encroachment on the | | left subarticularrecess. There is overall moderate to severe narrowing of the central | | spinalcanal. There is moderate left neural foraminal narrowing. There is mild | | rightneural foraminal narrowing. All findings have progressed at this level.L4-5: | | Postsurgical changes. Patent central spinal canal. Mild residualforaminal | | narrowing.L5-S1: Anterolisthesis. Uncovering of the disc and disc protrusion. | | Moderatefacet arthrosis bilaterally. The central spinal canal is patent. Moderate | | tosevere right neural foraminal narrowing. The left is patent. The foraminalnarrowing | | on the right has progressed.The visible paravertebral soft tissues are unremarkable and | | unchanged. Postgadolinium sagittal sequences are acquired. There is motion | | degradation. Nodefinite areas of abnormal enhancement in the surgical bed. However, | | this islimited due to hardware artifact and motion. The patient could not | | toleratefurther imaging for the axial sequence.IMPRESSION - Interval postsurgical change | | with posterior and interbody fusion performed atL4-L5. The central spinal canal and | | disc spacing at this level is improved. The central spinal canal remains patent. The | | neural foramen also appear to bepatent.Progressive spondylosis above the operative level | | with new significant centralspinal canal, subarticular recess, foraminal narrowing at | | L3-L4, as detailedabove.Mildly progressive spondylosis at L2-L3 and L5-S1, as | | above.Dictated and Signed by: Mitch Villanueva MD Electronically signed: 07/15/2014 | | 12:18 PM | | | |L5-S1: Anterolisthesis. Uncovering of the disc and disc protrusion. Moderate | |facet arthrosis bilaterally. The central spinal canal is patent. Moderate to | |severe right neural foraminal narrowing. The left is patent. The foraminal | |narrowing on the right has progressed. | | | |The visible paravertebral soft tissues are unremarkable and unchanged. Post | |gadolinium sagittal sequences are acquired. There is motion degradation. No | |definite areas of abnormal enhancement in the surgical bed. However, this is | |limited due to hardware artifact and motion. The patient could not tolerate | |further imaging for the axial sequence. | | | |IMPRESSION - | | | |Interval postsurgical change with posterior and interbody fusion performed at | |L4-L5. The central spinal canal and disc spacing at this level is improved. | |The central spinal canal remains patent. The neural foramen also appear to be | |patent. | | | |Progressive spondylosis above the operative level with new significant central | |spinal canal, subarticular recess, foraminal narrowing at L3-L4, as detailed | |above. | | | |Mildly progressive spondylosis at L2-L3 and L5-S1, as above. | | | |Dictated and Signed by: Mitch Villanueva MD | | Electronically signed: 07/15/2014 12:18 PM | + + + +---------+ + + | Performing | Address | City/State/Zipcode | Phone Number | | Organization | | | | + +---------+ + + | [facility] | | | [phone] | + +---------+ + + | [facility] | | | [phone] | + +---------+ + + documented in this encounter Visit Diagnoses + + | Diagnosis | + + | SACROILIITIS - Primary Sacroiliitis, not elsewhere classified | + + | DEGENERATIVE DISC DISEASE, LUMBAR SPINE Degeneration of lumbar or lumbosacral | | intervertebral disc | + + | Chronic back pain Backache, unspecified | + + | SCOLIOSIS , IDIOPATHIC Scoliosis (and kyphoscoliosis), idiopathic | + + documented in this encounter
--- OUTSIDE RECORDS SUMMARY | ~2019-10-18 | XMS | Encounter Summary ---
Demographics + + + | Address | [address] | | | [place] [address] | + + + | Home Phone | | + + + | Preferred Language | Unknown | + + + | Marital Status | | + + + | Religion Affiliation | 1027 | + + + | Race | Unknown | + + + | Ethnic Group | Unknown | + + + Author + + + | Author | [facility] | | | and [place] | + + + | Organization | [facility] | | | [...] Team Providers + +------+ + | Care Folder Inspector Name | Role | Phone | + +------+ + | Jesus Mijares MD | PCP | | + +------+ + Reason for Visit + + + | Reason | Comments | + + + | Follow-up | Injections | + + + Encounter Details +--------+ + + + + | Date | Type | Department | Care Team | Description | +--------+ + + + + | 02/18/ | Telephone | [facility] | Capo [place]ermudez, | Follow-up | | 2019 | | PHYSIATRY [address] | PA-C [address] | (Injections) | | | | [place], | [address] [place] | | | | | [place] [address] | [place] [address] | | | | | [phone] | [phone] | | | | | | | [...] | | | | | | [place] [address] | | | | | | [phone] | | | | | | | [...] | | + +---------+--------+ + + | DEXA Bone Density wo | Imaging | Routin | alf current | Expected: | | Vert Fx Assmt | | e | use of systemic | 02/18/2019, Expires: | | | | | steroids Hx of | 02/19/2020 | | | | | corticosteroid | | | | | | therapy | | + +---------+--------+ + + documented as of this encounter Visit Diagnoses + + | Diagnosis | + + | Hx of corticosteroid therapy Personal history of systemic steroid therapy | + + | intermission coordinator current use of systemic steroids Encounter for long-term (current) use of | | steroids | + + documented in this encounter Additional Health Concerns + + + + | Infection | Noted Time | Resolved Time | + + + + | Methicillin-resistant Staphylococcus aureus | 03/20/2017 12:00 AM | | | | PDT | | + + + + documented as of this encounter"
--- OUTSIDE RECORDS SUMMARY | ~2019-10-18 | XMS | Encounter Summary ---
Demographics + + + | Address | [address] | | | [place] [address] | + + + | Home Phone | | + + + | Preferred Language | Unknown | + + + | Marital Status | | + + + | Uatsdin Affiliation | 1027 | + + + | Race | Unknown | + + + | Ethnic Group | Unknown | + + + Author + + + | Author | [facility] | | | and [place] | + + + | Organization | [facility] | | | [...] Team Providers + +------+ + | Care Education Managers Name | Role | Phone | + +------+ + | Jesus Mijares MD | PCP | | + +------+ + Encounter Details +--------+ + + + + | Date | Type | Department | Care Team | Description | +--------+ + + + + | 04/28/ | Imaging | [facility] | Provider, | | | 2019 | Exam | [facility] | [address] | | | | | IMAGING | [address] | | | | | [phone] | [place] [address] | | +--------+ + + + + [...] | | | | | | [place] [address] | | | | | | [phone] | | | | | | | [...] | + +--------+ + + + | DEXA BONE DENSITY | Routin | 04/09/2019 | | Results for this | | STUDY [facility]I [facility]ARC[facility] | e | 12:00 AM | | procedure are in the | | ASSESSMENT | | PDT | | results section. | + +--------+ + + + documented in this encounter Results DEXA Bone Density wo Ty Fx Assmt (04/09/2019 12:00 AM PDT) + + | Specimen | + + | | + + + + + | Narrative | Performed At | + + + | External films for comparison only | [facility] | | | | | No results will be in the chart. | | + + + + +---------+ [...]
--- OUTSIDE RECORDS SUMMARY | ~2019-10-18 | XMS | Encounter Summary ---
Demographics + + + | Address | [address] | | | [place] [address] | + + + | Home Phone | | + + + | Preferred Language | Unknown | + + + | Marital Status | | + + + | Spiritism Affiliation | 1027 | + + + [...] Team Providers + +------+ + | Care Public Works Commissioner Name | Role | Phone | + +------+ + | Jesus Mijares MD | PCP | | + +------+ + Reason for Visit + + + | Reason | Comments | + + + | Results, Imaging | Shoulder XR | + + + Encounter Details +--------+ + + + + | Date | Type | Department | Care Team | Description | +--------+ + + + + | 03/30/ | Telephone | [facility] | Capo Bermudez, | Results, Imaging | | 2019 | | PHYSIATRY [address] | PA-C [address] | (Shoulder XR) | | | | [place], | [address] [place] | | | | | [place] [address] | [place] [address] | | | | | [phone] | [phone] | | | | | | | [...] [place], | | | | | | [place] [address] | | | | | | [phone] | | | | | | | [...]
--- OUTSIDE RECORDS SUMMARY | ~2019-10-18 | XMS | Encounter Summary ---
Demographics + + + | Address | [address] | | | [place] [address] | + + + | Home Phone | | + + + | Preferred Language | Unknown | + + + | Marital Status | | + + + | Hindu Affiliation | 1027 | + + + | Race | Unknown | + + + | Ethnic Group | Unknown | + + + Author + + + | Author | [facility] | | | and [place] | + + + | Organization | [facility] | [...] Team Providers + +------+ + | Care Ed Special Education Teacher Name | Role | Phone | + +------+ + | Jesus Mijares MD | PCP | | + +------+ + Encounter Details +--------+---------+ + + + | Date | Type | Department | Care Team | Description | +--------+---------+ + + + | 09/22/ | Office | [facility] EP | Mary Moe ANP | Paroxysmal atrial | | 2019 | Visit | CARDIOLOGY [place] | [address] | flutter (HCC) | | | | [address] | [place], [place] | (Primary Dx); PSVT | | | | [place], [place] | [address] | (paroxysmal | | | | [address] | | supraventricular | | | | [phone] | | tachycardia) ([facility]); | | | | | | Paroxysmal [...] | | | | failure type ([facility]); | | | | | | Cardiac [...] with prolonged AV con duction HR 60, SC 284, QRSD 96, QTC 440 EP PROBLEMS [...] in situ Overview Setrox S-53 cm, model 989241, #[id number] lead was placed into the right ventricle [...] ohms. The leads were attached to a [employer] Etrinsa 8 , model 789863, serial #[id number] pacemaker. FINAL SETTINGS FOR THE DEVICE Mode [...] joint 12/01/2018 CHF (congestive heart failure) ([facility]) 07/31/2018 Note Last Updated: 09/22/2019 Overview: Chronic Diastolic Heart Failure, predominantly right-sided sxs (edema) 09/22/2019 Volume status improved. Euvolemic on examination today. Hypokalemia 06/04/2018 Hypomagnesemia 06/04/2018 Rotator cuff tear, right 02/06/2018 Nontraumatic tear of right supraspinatus tendon 01/03/2018 Acute pain of right shoulder 11/12/2017 Cardiac pacemaker in situ 09/03/2017 Note Last Updated: 09/22/2019 Setrox S-53 cm, model 070666, #[id number] lead was placed into the right ventricle [...] ohms. The leads were attached to a [employer] Etrinsa 8 , model 238986, serial #[id number] pacemaker. FINAL SETTINGS FOR THE DEVICE Mode [...] Chronic kidney disease, stage III (moderate) ([facility]) 12/06/2015 Paroxysmal atrial flutter ([facility]) 12/06/2015 Hypertension 12/06/2015 Note Last Updated: 09/22/2019 09/22/2019 SBP improved since increasing Losartan 3 weeks ago. She keeps BP log at home. Type 2 diabetes mellitus ([facility]) 12/06/2015 Note Last Updated: 12/06/2015 Overview: was on insulin at one time, stopped after weight loss Atrial fibrillation ([facility]) 12/06/2015 Note Last Updated: 09/22/2019 Overview: Paroxysmal, [...] 11.2 oz) | SpO2 98% | B SC 26.38 kg/m Physical Exam Constitutional: She is [...] notes on file Brittani Ga Medic al Crisis Clinician - 09/22/2019 9:30 AM Debbie CHRISTIANSEN Note- [...] | | | | | | [place] [address] | | | | | | [phone] | | | | | | | [...] | | | | | tachycardia) ([facility]) | | | | | | Paroxysmal [...] | | | | | by ICA Dickerson Read Only, | | | | | | ICA Junie ([id number]), | | | | | | editor sound Kervin Coker | | | | | | ([id number]) on 09/22/2019 | | | | | [...] + | PSVT (paroxysmal supraventricular tachycardia) ([facility]) Paroxysmal supraventricular | | tachycardia | + [...]
--- OUTSIDE RECORDS SUMMARY | ~2019-10-18 | XMS | Encounter Summary ---
Demographics + + + | Address | [address] | | | [place] [address] | + + + | Home Phone | | + + + | Preferred Language | Unknown | + + + | Marital Status | | + + + | Islam Affiliation | 1027 | + + + [...] Team Providers + +------+ + | Care Infrastructure Architect Name | Role | Phone | + +------+ + | Jesus Mijares MD | PCP | | + +------+ + Reason for Visit +--------+ + | Reason | Comments | +--------+ + | Other | To see if neurosurgery has been in contact with her and | | | injections while waiting | +--------+ + Encounter Details +--------+ + + + + | Date | Type | Department | Care Team | Description | +--------+ + + + + | 06/19/ | Telephone | [facility] | Nilson Chaudhry | Other (To see if | | 2012 | | PHYSIATRY [address] | [address] | neurosurgery has | | | | [place], | [address] [facility] [place] | been in contact with | | | | [place] [address] | [phone] | her and injections | | | | [phone] | | while waiting) | +--------+ + + + + Social [...] | | | | | | [place] [address] | | | | | | [phone] | | | | | | | [...]
--- OUTSIDE RECORDS SUMMARY | ~2019-10-18 | XMS | Encounter Summary ---
Demographics + + + | Address | [address] | | | [place] [address] | + + + | Home Phone | | + + + | Preferred Language | Unknown | + + + | Marital Status | | + + + | Amish Affiliation | 1027 | + + + | Race | Unknown | + + + | Ethnic Group | Unknown | + + + Author + + + | Author | [facility] | | | and [place] | + + + | Organization | [facility] | | | and [...] Team Providers + +------+ + | Care Features Editor Name | Role | Phone | + [...] | | | [place], | [address] | | | | | Trochanteric | [place], | [place], | | | | | bursitis of | PA-C [address] | [place] | | | | | both hips | [address] | [address] | | | | | Procedures | [place] | Phone: | | | | | [place] | [address] | [phone] | | | | | Major Joint | Phone: | Fax: | | | | | Right CHG | [phone] | [phone] | | | | | FLUOROSCOPIC | Fax: | | | | | | GUIDANCE | [phone] | | | | | | NEEDLE | | | | | | | PLACEMENT | | | | | | | ADD ON PA | | | | | | [...] + + | 11/06/ | Office | [facility] | Christian[place], | Lumbar radiculopathy | | 2018 | Visit | PHYSIATRY [address] | GAMALIEL Saucedo [address] | (Primary Dx); | | | | [place], | [address] [place], | DEGENERATIVE DISC | | | | [place] [address] | [place] [address] | DISEASE, LUMBAR | | | | [phone] | [phone] | SPINE; Spinal | | | | [...] of the procedure you must provide a tow truck driver to take you home. For [...] in [address] Yong Pena in [place], use of hydrocodone 3 x/day and flexeril, [...] has no apparent deficits with short or moth exterminator memory. 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 Unfortunately she cont inues to have significant [...] | | | | | | [place] [address] | | | | | | [phone] | | | | | | | [...]
--- OUTSIDE RECORDS SUMMARY | ~2019-10-18 | XMS | Encounter Summary ---
Demographics + + + | Address | [address] | | | [place] [address] | + + + | Home Phone [...] Team Providers + +------+ + | Care Salt Washer Name | Role | Phone | + +------+ + | Jesus Mijares MD | PCP | | + +------+ + Reason for Visit + + + | Reason | Comments | + + + | Device Check | Alert | | (Remote) | | + + + Encounter Details +--------+ + + + + | Date | Type | Department | Care Team | Description | +--------+ + + + + | 08/27/ | Procedure | [facility] | January, | Cardiac pacemaker in | | 2019 | visit | CARDIOLOGY [place] | NICOLLE [address] | situ (Primary Dx) | | | | [address] | [address] [place], | | | | | [place], [place] | [place] [address] | | | | | [address] | [phone] | | | | | [phone] | | | +--------+ + + + [...] + documented as of this encounter Progress Macey Solomon ARNP - 08/27/2019 9:55 AM PSTI have called the patient, awaiting return stan munoz voicemail asking her to call us to discuss, the number was provided. NICOLLE Acuna documented in this en counter Plan of Treatment +--------+ + + + + | Date | Type | Specialty | Care Team | Description | +--------+ + + + + | 11/17/ | Office | Cardiology | Rajendra Fowler, | | | 2019 | Visit | | MD [address] | | | | | | [place], | | | | | | [place] [address] | | | | | | [phone] | | | | | | | [...] + + | DEVICE | Routin | 08/27/2019 | Cardiac pacemaker | Results for this | | INTERROGATION- | e | 12:00 AM | in situ | procedure are in the | | REMOTE | | PST | | results section. | + +--------+ + + + documented in this encounter Results Device Interrogation - Remote (08/27/2019 12:00 AM PST) + + + | Narrative | Performed At | + + + | Ignacio Benz | [facility] | | Technologist 08/27/2019 9:56 AMAlert Pt had alert on | | | 08/27/19Thoracic impedance trending down. | | |Thoracic impedance trending down. | | + + + + + | Procedure Note | + + | Ignacio Benz, Technologist - 08/27/2019 9:55 AM PST Alert | | Pt had alert on 08/27/19 | | Thoracic impedance trending down. | + + + +---------+ + + | Performing | Address | City/State/Zipcode | Phone Number | | Organization | | | | + +---------+ + + | [facility] | | | | + +---------+ + + documented in this encounter Visit Diagnoses + + | Diagnosis | + + | Cardiac pacemaker in situ - Primary | + + documented in this encounter Additional Health Concerns + + + + | Infection | Noted Time | Resolved Time | + + + + | Methicillin-resistant Staphylococcus aureus | 03/20/2017 12:00 AM | | | | PDT | | + + + + documented as of this encounter"
--- OUTSIDE RECORDS SUMMARY | ~2019-10-18 | XMS | Encounter Summary ---
Demographics + + + | Address | [address] | | | [place] [address] | + + + | Home Phone | | + + + | Preferred Language | Unknown | + + + | Marital Status | | + + + | Mormon Affiliation | Unknown | + + + | Race | White | + + + | Ethnic Group | Not or | + + + Author + + + | Author | [facility] | + + + | Organization | [facility] | + + + | Address | Unknown | + + + | Phone | Unavailable | + + + Support + + + + + | Name | Relationship | Address | Phone | + + + + + | Geoffrey Castillo | RENAE | [place] | | + + + + + Care Team Providers + +------+ + | Care Seaport Planning Manager Name | Role | Phone | [...] as of this encounter Progress Notes Interface, Portrait Consultant In - 10/22/2006 1:06 AM PSTCLINIC DATE: [...] cancel her further appointments. Kavon Melton M.D. Utility Bill Complaints Investigator, Plastic and Reconstructive Surgery TOREY/nevin d ocumented in this encounter Plan of Treatment Not on filedocumented as of this encounter Visit Diagnoses Not on filedocumented in this encounter"
--- OUTSIDE RECORDS SUMMARY | ~2019-10-18 | XMS | Encounter Summary ---
Demographics + + + | Address | [address] | | | [place] [address] | + + + | Home Phone | | + + + | Preferred Language | Unknown | + + + | Marital Status | | + + + | Jain Affiliation | 1027 | + + + | Race | Unknown | + + + | Ethnic Group | Unknown | + + + Author + + + | Author | [facility] | | | and [place] | + + + | Organization | [facility] | | [...] Team Providers + +------+ + | Care Supervisor Grain And Yeast Plants Name | Role | Phone | + +------+ + | Jesus Mijares MD | PCP | | + +------+ + Reason for Visit + + + | Reason | Comments | + + + | Device Check | | | (In-office) | | + + + Encounter Details +--------+ + + + + | Date | Type | Department | Care Team | Description | +--------+ + + + + | 09/22/ | Procedure | [facility] | | Sick sinus syndrome | | 2019 | visit | CARDIOLOGY [place] | | ([facility]) (Primary Dx); | | | | [address] | | Chronic diastolic | | | | [place], [place] | | heart failure ([facility]); | | | | [address] | | Cardiac pacemaker | | | | [phone] | | in situ; Paroxysmal | | | | | | atrial fibrillation | | | | | | ([facility]) | +--------+ + + + [...] | | | | | | [place] [address] | | | | | | [phone] | | | | | | | [...] + +--------+ + + + | DEVICE INTERROGATION | Routin | 09/22/2019 | Chronic diastolic | Results for this | | | e | 9:30 AM | heart failure (HCC) | procedure are in the | | | | PST | Cardiac pacemaker | results section. | | | | | in situ Sick sinus | | | | | | syndrome (HCC) | | | | | | Paroxysmal atrial | | | | | | fibrillation (HCC) | | + +--------+ + + + documented in this encounter Results Device Interrogation (09/22/2019 9:30 AM PST) + + + | Narrative | Performed At | + + + | [facility] | | Technologist Jose 09/22/2019 10:18 AMDevice interrogation | | | done by Mary Moe Any events or changes listed in office note. See | | | device data attached to scheduled encounter for additional details. | | | soloist dancer: Benjamin Garcia, soloist dancer [facility] | | |See device data attached to scheduled encounter for additional | | |details. | | | | | |soloist dancer: Benjamin Garcia, soloist dancer [facility] | | | | | | | | + + + + +---------+ + + | Performing | Address | City/State/Zipcode | Phone Number | | Organization | | | | + +---------+ + + | [facility] | | | | + +---------+ + + documented in this encounter Visit Diagnoses + + | Diagnosis | + + | Sick sinus syndrome (HCC) - Primary Sinoatrial node dysfunction | + + | Chronic diastolic heart failure (HCC) Chronic diastolic heart failure | + + | Cardiac pacemaker in situ | + + | Paroxysmal atrial fibrillation [...]
--- OUTSIDE RECORDS SUMMARY | ~2019-10-18 | XMS | Encounter Summary ---
Demographics + + + | Address | [address] | | | [place] [address] | + + + | Home Phone | | + + + | Preferred Language | Unknown | + + + | Marital Status | | + + + | Baptist Affiliation | 1027 | + + + [...] Team Providers + +------+ + | Care Pilot Teacher Name | Role | Phone | + +------+ + | Jesus Mijares MD | PCP | | + +------+ + Encounter Details +--------+ + + + + | Date | Type | Department | Care Team | Description | +--------+ + + + + | 07/27/ | Hospital | [facility] | Conversion | | | 2013 | Encounter | [facility] | Transaction, | | | | | [address] | Provider Unknown | | | | | [place], [place] | [phone] | | | | | [address] | | | | | | [phone] | Yong Pena Jr., | | | | | | MD [address] | | | | | | [address] [place], [place] | | | | | | [address] | | | | | | | [...] | | | | | | [place] [address] | | | | | | [phone] | | | | | | | [...]
--- OUTSIDE RECORDS SUMMARY | ~2019-10-18 | XMS | Encounter Summary ---
Demographics + + + | Address | [address] | | | [place] [address] | + + + | Home Phone | | + + + | Preferred Language | Unknown | + + + | Marital Status | | + + + | Adventism Affiliation | 1027 | + + + | Race | Unknown | + + + | Ethnic Group | Unknown | + + + Author + + + | Author | [facility] | | | and [place] | + + + | Organization | [facility] | | | [...] Team Providers + +------+ + | Care Underwear Trimmer Name | Role | Phone | + +------+ + | Kishore Doctor | PCP | | + +------+ + Reason for Visit + + + | Reason | Comments | + + + | Back Pain | Low back pain that radiates down into right leg | + + + | Leg Pain | Mostly right leg occasionally left leg also | + + + Encounter Details +--------+---------+ + + + | Date | Type | Department | Care Team | Description | +--------+---------+ + + + | 07/31/ | Office | [facility] | Nilson Chaudhry | Lumbar | | 2011 | Visit | PHYSIATRY [address] | [address] | radiculopathy; | | | | [place], | [place], [place] | DEGENERATIVE DISC | | | | [place] [address] | [address] | DISEASE, LUMBAR | | | | [phone] | | SPINE; SCOLIOSIS , | | | | | | IDIOPATHIC; | | | | | | Spondylolisthesis; | | | | | | Sacroiliitis (HCC); | | | | | | Bursitis, hip; | | | | | | Obesity | +--------+---------+ + + + Social History [...] + + + | Blood Pressure | 158/78 | 07/31/2012 8:04 AM | | | | | PDT | | + + + + + | Pulse | 53 | 07/31/2012 8:04 AM | | | | | PDT [...] Weight | 102.1 kg (225 lb) | 07/31/2012 8:04 AM | | | | | PDT | | + + + + + | Height | 167.6 cm (5' 6") | 07/31/2012 8:04 AM | | | | | PDT | | + + + + + | Body Mass Index | 36.32 | 07/31/2012 8:04 AM | | | | | PDT | | + + + + + documented in this encounter Patient Instructions Patient Instructions Nilson Chaudhry MD - 07/31/2012 9:20 AM PDTFollow-up at the time of the injections. Do not take any blood thinning medications for at least 5 days prior to your procedure. Common blood thinning medications include: Aspirin (a baby aspirin is o.k.) Ibuprofen (Advil or Motrin) Naproxen (Aleve) Nabumetone (Relafen) Clopidogrel (Plavix) Dipyridamole/ASA (Aggrenox) Warfarin (Coumadin) Dabigatran (Pradaxa) There are many others. If you have questions about your medications please contact our off ice. Please also provide a water taxi driver to take you home on the day of the injection. documented in this encounter Progress Notes Nilson Chaudhry MD - 07/31/2012 8:21 AM PDT Subjective: Patient ID: Rebecca Castillo is a 72 y.o. female. HPI The patient is a pleasant female who is being seen today in follow-up for continu ed low back pain with radiating symptoms into the lower extremities, right greater than left . She also has significant pain over the lateral hips as well. She has been found to have lumbar radiculopathy, DDD lumbar spine, spondylolisthesis, trochanteric bursitis, sacroiliit his and severe facet arthritis. She has tried PT and she feels stronger but she still significant pain. She does take Ibup rofen and Hydrocodone/APAP for the pain. The medications do help. She does report numbness in the fingers of the right hand in the toes of both feet, right greater than left. She do es have a history of diabetes. She denies any loss of bowel control or saddle anesthesia. She does report occasional urinary incontinence which sounds more like urinary incontinence. Patient's medications, allergies, past medical, surgical, social and family histories were reviewed and updated as appropriate. Review of Systems Urinary incontinence, diaphoresis, chills, swelling in the legs and ankles and the pain com plaints as above. Objective: Physical Exam Nursing note and vitals reviewed. Constitutional: She is oriented to person, place, and time. She appears well-developed and well-nourished. HENT: Head: Normocephalic and atraumatic. Neck: No tracheal deviation present. Cardiovascular: Normal rate and regular rhythm. Pulmonary/Chest: Effort normal and breath sounds normal. No respiratory distress. Neurological: She is alert and oriented to person, place, and time. She has normal strength . A sensory deficit is present. No cranial nerve deficit. She displays no Babinski's sign on [...] ecchymosis, no laceration and no rash noted. Scars and discoloration consistent with prior cellulitis or venous stasis changes bila teral legs. Psychiatric: She has a normal mood and affect. Her speech is normal and behavior is normal. Thought content normal. Cognition and memory are normal. Musculoskeletal: Straight leg raise and slump-sit are negative. Gutierrez's maneuver and im pingement testing were negative for any groin pain. There was significant tenderness to pa lpation over the greater trochanters and right sacral sulcus. The patient localized the beryl ority of the pain to the low back/buttock region and down the legs. Also over bilateral gre ater trochanters. Lumbar facet loading was negative. She had difficult standing erect and w alked with a forward flexed posture and knees bent. She had a waddling gait. Strength testi showed 5/5 strength throughout the lower extremities with the exception of mild dorsiflex ion weakness and hip abductor weakness bilaterally. The patient was able to heel and toe wal k without difficulty. There was no redness, effusion, warmth or joint line tenderness in th e knees. She did have significant edema in bilateral lower legs.. Assessment: 1. Lumbar radiculopathy 2. DEGENERATIVE DISC DISEASE, LUMBAR SPINE 3. SCOLIOSIS , IDIOPATHIC 4. Spondylolisthesis 5. Sacroiliitis 6. Bursitis, hip 7. Obesity 8. Diabetes with peripheral neuropathy. 9. Parasthesias right upper extremity. Plan: 1. The patient has recently tried extensive physical therapy without much benefit. She is interested in trying interventional procedures and did feel that was appropriate. It is di fficult to the side which areas to target first as she has so many potential areas that coul d be responsible for pain complaints. She wished to target the lateral hip pain and bilater al leg pain and therefore I scheduled her for bilateral trochanteric bursa injections and bi lateral L4-5 transforaminal epidural steroid injections. 2. I did not make any changes in the patient's medications today. She has previously been prescribed hydrocodone and is also taking ibuprofen for her pain. At some points and may n eed to try a different medication options and I would consider a Butrans patch. documented in this encounter Plan of Treatment [...] [place], | | | | | | [place] [address] | | | | | | [phone] | | | | | | | [...] | intervertebral disc | + + | SCOLIOSIS , IDIOPATHIC Scoliosis (and kyphoscoliosis), idiopathic | + + | Spondylolisthesis Congenital spondylolisthesis | + + | Sacroiliitis (HCC) Sacroiliitis, not elsewhere classified | + + | Bursitis, hip Enthesopathy of hip region | + + | Obesity Obesity, unspecified | + + documented in this encounter
--- OUTSIDE RECORDS SUMMARY | ~2019-10-18 | XMS | Encounter Summary ---
Demographics + + + | Address | [address] | | | [place] [address] | + + + | Home Phone | | + + + | Preferred Language | Unknown | + + + | Marital Status | | + + + | Evangelical Affiliation | 1027 | + + + | Race | Unknown | + + + | Ethnic Group | Unknown | + + + Author + + + | Author | [facility] | | | and [place] | + + + | Organization | [facility] | | | [...] Team Providers + +------+ + | Care Starch Dumper Name | Role | Phone | + +------+ + PCP | Unavailable | + +------+ + Encounter Details +--------+ + + + + | Date | Type | Department | Care Team | Description | +--------+ + + + + | 08/ | Hospital | [facility] | Unknown, | | | 1991 | Encounter | MED CTR XRAY [address] | MD Tita | | | | | [place] | | | | | | [place] [address] | (Fax) | | | | | [phone] | | | +--------+ + + + [...] | +--------+ + + + + | 02/04/ | Office | Cardiology | Rajendra Fowler, | | | 2019 | Visit | | MD [address] | | | | | | [place], | | | | | | [place] [address] | | | | | | | [...]
--- OUTSIDE RECORDS SUMMARY | ~2019-10-18 | XMS | Encounter Summary ---
Demographics + + + | Address | [address] | | | [place] [address] | + + + | Home Phone | | + + + | Preferred Language | Unknown | + + + | Marital Status | | + + + | Voodoo Affiliation | 1027 | + + + | Race | Unknown | + + + | Ethnic Group | Unknown | + + + Author + + + | Author | [facility] | | | and [place] | + + + | Organization | [facility] | | [...] Team Providers + +------+ + | Care Graduate Internship Name | Role | Phone | + [...] | | | | [place] | [address] | | | | | | and/or Inj | Phone: | | | | | | Major Joint | [phone] | | | | | | Right | Fax: | | | | | | | [phone] | | +--------+--------+ + + + + Encounter Details +--------+ + + + + | Date | Type | Department | Care Team | Description | +--------+ + + + + | 03/03/ | Orders Only | [facility] | Nilson Chaudhry | Trochanteric | | 2019 | | PHYSIATRY [address] | [address] | bursitis, right hip | | | | [place], | [place] | (Primary Dx) | | | | [place] [address] | [address] | | | | | [phone] | | | +--------+ + + + [...] | | | | | | [place] [address] | | | | | | [phone] | | | | | | | [...]
--- OUTSIDE RECORDS SUMMARY | ~2019-10-18 | XMS | Encounter Summary ---
Demographics + + + | Address | [address] | | | [place] [address] | + + + | Home Phone | | + + + | Preferred Language | Unknown | + + + | Marital Status | | + + + | Adventism Affiliation | 1027 | + + + | Race | Unknown | + + + | Ethnic Group | Unknown | + + + Author + + + | Author | [facility] | | | and [place] | + + + | Organization | [facility] | | | [...] Team Providers + +------+ + | Care Acoustic Sensor Operator Name | Role | Phone | [...] | SR | | | | | [phone] | | | +--------+ + + + [...] | | | | | | [place] [address] | | | | | | [phone] | | | | | | | [...]
--- OUTSIDE RECORDS SUMMARY | ~2019-10-18 | XMS | Encounter Summary ---
Demographics + + + | Address | [address] | | | [place] [address] | + + + | Home Phone | | + + + | Preferred Language | Unknown | + + + | Marital Status | | + + + | Latter-Day Affiliation | 1027 | + + + | Race | Unknown | + + + | Ethnic Group | Unknown | + + + Author + + + | Author | [facility] | | | and [place] | + + + | Organization | [facility] | | [...] Providers + +------+ + | Care Manager Books Name | Role | Phone | + [...] | | | | | Lumbar | Bogdanowicz, | [address] | | | | | radiculopath | Sheryl, | [place], | | | | | y Right hip | PA-C [address] | [place] | | | | | pain | [address] | [address] | | | | | Procedures | [place], [place] | Phone: | | | | | [place] Major | [address] | [phone] | | | | | Joint | Phone: | Fax: | | | | | Injection | [phone] | [phone] | | | | | Right [place] | Fax: | | | | | | INJECT | [phone] | | | | | | ANES/STEROID | | | | | | | FORAMEN | | | | | | | LUMBAR/SACRA | | | | | | | L W IMG | | | | | | | GUIDE ,1 | | | | | | | LEVEL [place] | | | | | | | [...] | | | | | ADD ON [place] | | | | | | | TRIAMCINOLON | | | | | | | E ACET INJ | | | | | | | NOS, 10 MG | | | | | | | Appt 12/24- | | | | | | | Bilateral | | | | | | | L4-5 TFESI & | | | | | | | Rt bursa | | | +--------+--------+ + + + + Reason for Visit + + + | Reason | Comments | + + + | Back Pain | low back pain radiating into bilateral legs | + + + Encounter Details +--------+---------+ + + + | Date | Type | Department | Care Team | Description | +--------+---------+ + + + | 12/12/ | Office | [facility] | Christiano, | Lumbar radiculopathy | | 2016 | Visit | PHYSIATRY [address] | GAMALIEL Saucedo [address] | (Primary Dx); | | | | [address] [place], | CHRISTIAN PHAN, | Spinal stenosis of | | | | [place] [address] | [place] [address] | lumbar region - | | | | [phone] | [phone] | L3/L4, 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; | | | | | | Trochanteric | | | | | | bursitis of right | | | | | | hip | +--------+---------+ + + + Social History [...] + + + | Blood Pressure | 154/84 | 12/12/2016 12:44 PM | | | | | PST | | + + + + + | Pulse | 55 | 12/12/2016 12:44 PM | | | | | PST [...] Weight | 88.5 kg (195 lb) | 12/12/2016 12:44 PM | | | | | PST | | + + + + + | Height | 162.6 cm (5' 4") | 12/12/2016 12:44 PM | | | | | PST | | + + + + + | Body Mass Index | 33.47 | 12/12/2016 12:44 PM | | | | | PST | | + + + + + documented in this encounter Patient Instructions Patient Instructions Sheryl Alvarado PA-C - 12/12/2016 1:07 PM PST1) Bilateral epidur al steroid injection with a right bursa injection Follow-up at the hospital thirty minutes [...] of the procedure you must provide a canal driver to take you home. For all procedur es it is recommended that someone else drive you home. documented in this encounter Progress Notes Sheryl Alvarado PA-C - 12/12/2016 12:43 PM PSTFormatting of this note might be [...] with initial visit started b y Dr. hCaudhry. Previously it was recommended that she receive bilateral L4/L5 epidural i njection for spinal stenosis along with a right SI joint injection. She last received this last 09/11/2016.. She reports having had 60% relief for 3 months, her symptoms recently wor sened. She doesn't think the sacroiliac injection helped as well as the right trochanteric bursa injection she usually receives. She describes the pain as constant dull [...] in [address] Yong Pena in [place], use of hydrocodone 3 x/day and flexeril, [...] No abnormal bleeding PHYSICAL EXAMINATION: Filed Vitals: 12/12/16 1244 BP: 154/84 Pulse: 55 PainSc: 10 - Worst pain ever PainLoc: Back GENERAL: The patient is well [...] has no apparent deficits with short or fdc memory. She has appropriate fund of knowledge [...] region - L3/L4, adjacent segment disease 3. Trochanteric bursitis of right hip PLAN: 1. The patient has had significant conservative care including medications (NSAIDS and sam cotics), PT (multiple sessions over the years) and managed care nurse. Unfortunately she cont inues to have significant discomfort. It appears to me that the pain is primarily coming fr om the central spinal stenosis at L3/L4. I did feel that she would be a good candidate for interventional procedures as the last epidural injection greatly helped. I offered bilatera l L4/L5 epidural injections with a right trochanteric bursa injection to be done later. She is on Warfarin and will have to follow anti-coagulation protocol. 2. Medications have been reviewed at today's visit with no changes made at this time. 3. The patient will follow up in three months from today for another same day injection. ELECTRONICALLY SIGNED BY: Sheryl Alvarado PA-C, 12/12/2016 documented in this encounter Plan of Treatment [...] | | | | | | [place] [address] | | | | | | [phone] | | | | | | | [...] encounter Results [place] Major Joint Injection Right (12/24/2016 3:25 PM PDT) + + | Specimen | + + | | + + + + + | Narrative | Performed At | + + + | 12/24/2016 Bilateral Transforaminal Epidural Steroid Injections | [facility] | | and Right Trochanteric Bursa Injection Diagnosis: Lumbar | [facility] | | radiculopathy and Trochanteric Bursitis ICD-10 Code M54.16 and | [facility] | | M70.61 Rebeccapaola Castillo presents to the fluoroscopy suite for [...] verbal as well as written follow-up instructions. A right | | | trochanteric bursa [...] into the region to administer approximately 2 | | | mL of buffered 1% lidocaine for local anesthesia. Then a 22 gauge | | | spinal needle was advanced down to the greater trochanter under | | | fluoroscopic guidance. Next, a small amount of contrast was then | | | infused to insure that there was no vascular uptake. A total volume | | | of 5 mL including 1 mL of triamcinolone ( 40 milligrams per mL) and | | | 4 mL of 1% lidocaine was then infused. The needle was removed and | | | the area was cleaned and bandaged. Prior to the start of the | | | procedure, the following were performed and/or verified, including | | | correct patient identity, correct site/side marked and visible, | | | agreement on the procedure to be done, correct patient positioning | | | and an accurate procedure consent form. Any safety precautions based | | | on clinical history and/or medication use have been addressed. I | | | personally performed the procedure above. Estimated blood loss: | | | Minimal Complications: None Findings: As expected Anesthesia: Local | | | 1% Lidocaine | | + + + + + + + + | Performing | Address | City[facility]State[facility] | Phone Number | | Organization | | | | + + + + + | [address] | [address] | [place] | [phone] | | [facility] | | [address] | | | - IMAGING | | | | + + + + + FL SRINIVAS Lumbar Transforaminal (12/24/2016 3:25 PM PDT) + + | Specimen | + + | | + + + + + | Narrative | Performed At | + + + | 12/24/2016 Bilateral Transforaminal Epidural Steroid Injections | [facility] | | and Right Trochanteric Bursa Injection Diagnosis: Lumbar | [facility] | | radiculopathy and Trochanteric Bursitis ICD-10 Code M54.16 and | [facility] | | M70.61 Rebecca Castillo presents to [...] verbal as well as written follow-up instructions. A right | | | trochanteric bursa [...] into the region to administer approximately 2 | | | mL of buffered 1% lidocaine for local anesthesia. Then a 22 gauge | | | spinal needle was advanced down to the greater trochanter under | | | fluoroscopic guidance. Next, a small amount of contrast was then | | | infused to insure that there was no vascular uptake. A total volume | | | of 5 mL including 1 mL of triamcinolone ( 40 milligrams per mL) and | | | 4 mL of 1% lidocaine was then infused. The needle was removed and | | | the area was cleaned and bandaged. Prior to the start of the | | | procedure, the following were performed and/or verified, including | | | correct patient identity, correct site/side marked and visible, | | | agreement on the procedure to be done, correct patient positioning | | | and an accurate procedure consent form. Any safety precautions based | | | on clinical history and/or medication use have [...] + | [facility] | [address] | [place] | [phone] | | [facility] | | [address] | | | - IMAGING | | [...]
--- OUTSIDE RECORDS SUMMARY | ~2019-10-18 | XMS | Encounter Summary ---
Demographics + + + | Address | [address] | | | [place] [address] | + + + | Home Phone | | + + + | Preferred Language | Unknown | + + + | Marital Status | | + + + | Protestant Affiliation | 1027 | + + + | Race | Unknown | + + + | Ethnic Group | Unknown | + + + Author + + + | Author | [facility] | | | and [place] | + + + | Organization | [facility] | | | [...] Team Providers + +------+ + | Care Learning Design Specialist Name | Role | Phone | [...] | | | Christiano, | [address] | | | | | Trochanteric | Sheryl, | [place], | | | | | bursitis of | PA-C [address] | [place] | | | | | both hips | [address] | [address] | | | | | Procedures | [place] | Phone: | | | | | [place] Asp Inj | [address] | [phone] | | | | | Major Joint | Phone: | Fax: | | | | | Right CHG | [phone] | [phone] | | | | | FLUOROSCOPIC | Fax: | | | | | | GUIDANCE | [phone] | | | | | | NEEDLE | | | | | | | PLACEMENT | | | | | | | ADD ON MT | | | | | | | ARTHROCENTES | | | | | | | IS | | | | | | | ASPIR&/INJ | | | | | | | MAJOR | | | | | | | JT/FARHATA W/O | | | | | | | US | | | +--------+--------+ + + + + Reason for Visit Service/Procedure (Urgent) +--------+--------+ + + + + | Status | Reason | Specialty | Diagnoses / | Referred By | Referred To | | | | | Procedures | Contact | Contact | +--------+--------+ + + + + | Closed | | Radiology | Diagnoses | | [facility] | | | | | Lumbar | Zierenberg, | [address] | | | | | radiculopath | Nilson T, MD | [place], | | | | | y | [address] | [place] | | | | | Trochanteric | [place] | [address] | | | | | bursitis of | [place], [place] | Phone: | | | | | both hips | [address] | [phone] | | | | | Procedures | Phone: | Fax: | | | | | [place] | [phone] | [phone] | | | | | ARTHROCENTES | Fax: | | | | | | IS | [phone] | | | | | | ASPIR&/INJ [...] | | | | | ADD ON MT | | | | | | | TRIAMCINOLON | | | | | | | E ACET INJ | | | | | | | NOS, 10 MG | | | | | | | MT INJECT | | | | | | | ANES/STEROID | | | | | | | FORAMEN | | | | | | | LUMBAR/SACRA | | | | | | | L W IMG | | | | | | | GUIDE ,1 | | | | | | | LEVEL [place] | | | | | | | TRIAMCINOLON | | | | | | | E ACET INJ | | | | | | | NOS, 10 MG | | | | | | | Appt:TODAY | | | | | | | 11/06 Bilat | | | | | | | bursa and | | | | | | | Bilat L4/5 | | | | | | | TFESI | | | +--------+--------+ + + + + Encounter Details +--------+ + + + + | Date | Type | Department | Care Team | Description | +--------+ + + + + | 11/06/ | Hospital | [facility] | Annikadanowicz, | Lumbar | | 2018 | Encounter | MED CTR XRAY [address] | GAMALIEL Saucedo [address] | radiculopathy; | | | | [address] [place] | [facility], | DEGENERATIVE DISC | | | | [place] [address] | [place] [address] | DISEASE, LUMBAR | | | | [phone] | [phone] | SPINE; Spinal | | | | | | stenosis of lumbar | | | | | [place] | region without | | | | [...] +---------+ + + | Blood Pressure | 137/63 | 11/06/2017 1:53 PM | | | | | PST [...] | | | | | | [place] [address] | | | | | | [phone] | | | | | | | [...] + | FL ASPIRATION | Routin | 11/06/2017 | Trochanteric | Results for this | | INJECTION MAJOR | e | 1:22 PM | bursitis of both | procedure are in the | | JOINT RIGHT | | PST | hips | results section. | + +--------+ + + + | FL EPIDURAL STEROID | Routin | 11/06/2017 | Lumbar | Results for this | | INJECTION LUMBAR | e | 1:22 PM | radiculopathy | procedure are in [...] | | | | claudication | | + +--------+ + + + documented in this encounter Results FL Asp Inj Major [...] + + | Performing | Address | City/State/[facility] | Phone Number | | Organization | [...] dexamethasone (PF) 10 mg/mL | Given | 11/06/19 | 10 mg | | | | injection 10 mg 10 mg, Other, | | 18 1:30 | | | | | ONCE, 11/06/17 at 1345, For 1 | | PM PST | | | | | dose | | | | | | + +--------+ +-------+------+------+ +---+---+ | | | +---+---+ + +-------+ +-------+---+---+ | iohexol (OMNIPAQUE 300) 300 | Given | 11/06/19 | 4 mLs | | | | mg/mL injection 4 mL 4 mL, | | 18 1:25 | | | | | Other, ONCE, 11/06/17 at 1345, | | PM PST | | | | | For 1 dose | | | | | | + +-------+ +-------+---+---+ +---+---+ | | | +---+---+ + +-------+ +-------+---+---+ | lidocaine (PF) 1% injection 2 | Given | 11/06/19 | 2 mLs | | | | mL 2 mL, Other, ONCE, Wed | | 18 1:30 | | | | | 11/06/17 at 1345, For 1 dose | | PM PST | | | | + +-------+ +-------+---+---+ +---+---+ | | | +---+---+ + +-------+ +--------+---+ + | lidocaine buffered 1% injection | Given | 11/06/19 | 10 mLs | | Other | | 10 mL 10 mL, Intradermal, ONCE, | | 18 1:20 | | | (Comment | | 11/06/17 at 1345, For 1 dose | | PM PST | | | ) | + +-------+ +--------+---+ + +---+---+ | | | +---+---+ + +-------+ +-------+---+---+ | triamcinolone acetonide | Given | 11/06/19 | 40 mg | | | | (KENALOG-40) 40 mg/mL injection | | 18 1:35 | | | | | 40 mg 40 mg, Intra-articular, | | PM PST | | | | | ONCE, 11/06/17 at 1345, For 1 | | | [...]
--- OUTSIDE RECORDS SUMMARY | ~2019-10-18 | XMS | Encounter Summary ---
Demographics + + + | Address | [address] | | | [place] [address] | + + + | Home Phone | | + + + | Preferred Language | Unknown | + + + | Marital Status | | + + + | Protestant Affiliation | 1027 | + + + | Race | Unknown | + + + | Ethnic Group | Unknown | + + + Author + + + | Author | [facility] | | | and [place] | + + + | Organization | [facility] | | | [...] Team Providers + +------+ + | Care Television Repair Teacher Name | Role | Phone | [...] | | | Sabrinacz, | [address] | | | | | Degenerative | Sheryl, | [place], | | | | | disc | PA-C [address] | [place] | | | | | disease, | [address] | [address] | | | | | lumbar | [place], [place] | Phone: | | | | | Chronic back | [address] | [phone] | | | | | pain | Phone: | Fax: | | | | | Idiopathic | [phone] | [phone] | | | | | scoliosis | Fax: | | | | | | Procedures | [phone] | | | | | | MRI [...] Mri | | | | | | Anaidmeghancz, | [address] | | | | | Degenerative | Sheryl, | [place], | | | | | disc | PA-C [address] | [place] | | | | | disease, | [address] | [address] | | | | | lumbar | [place], [place] | Phone: | | | | | Chronic back | [address] | [phone] | | | | | pain | Phone: | Fax: | | | | | Idiopathic | [phone] | [phone] | | | | | scoliosis | Fax: | | | | | | Procedures | [phone] | | | | | | MRI [...] | +--------+ + + + + | 07/15/ | Hospital | [facility] | Christiano, | DEGENERATIVE DISC | | 2013 | Encounter | MED CTR MRI [address] | GAMALIEL Saucedo [address] | DISEASE, LUMBAR | | | | [address] [place], | [place], | SPINE; Chronic back | | | | [place] [address] | [place] [address] | pain; SCOLIOSIS , | | | | [phone] | [phone] | IDIOPATHIC | | | | | | | [...] | | | | | | [place] | | | | | | [place] [address] | | | | | | [phone] | | | | | | | [...] | + +--------+ + + + | MRI LUMBAR SPINE W | Routin | 07/15/2014 | DEGENERATIVE DISC | Results for this | | WO CONTRAST | e | 11:32 AM | DISEASE, LUMBAR | procedure are in the | | | | PDT | SPINE Chronic back | results section. | | | | | pain SCOLIOSIS , | | | | | | IDIOPATHIC | | + +--------+ + + + documented in this encounter Results MRI Lumbar Spine w wo Contrast (07/15/2014 [...] + | Jeanmarie, Rad Results In - 07/15/2014 12:21 PM PDT [...] + | MISCELLANEOUS LAB | | | [phone] | + +---------+ + + | MISCELANIOUS LAB | | | [phone] | + +---------+ + + documented in [...] in this encounter Administered Medications + +--------+ +--------+------+------+ | Medication Order | MAR | Action | Dose | Rate | Site | | | Action | Date | | | | + +--------+ +--------+------+------+ | gadobutrol (GADAVIST) injection | Given | 07/15/20 | 10 mLs | | | | 10 mL 10 mL, Intravenous, ONCE | | 14 11:33 | | | | | PRN, Other, Starting [facility] 07/15/14 | | AM PDT | | | | | at 1133, For 1 dose, MRI | | | | | | + +--------+ +--------+------+------+ +---+---+ | | | +---+---+ documented in this encounter"
--- OUTSIDE RECORDS SUMMARY | ~2019-10-18 | XMS | Encounter Summary ---
Demographics + + + | Address | [address] | | | [place] [address] | + + + | Home Phone [...] Providers + +------+ + | Care Patient Account Representative Name | Role | Phone | + +------+ + | Jesus Mijares MD | PCP | | + +------+ + Encounter Details +--------+ + + + + | Date | Type | Department | Care Team | Description | +--------+ + + + + | 02/26/ | Hospital | [facility] | Nilson Chaudhry | | | 2012 | Encounter | MED CTR XRAY [address] | T, [address] | | | | | [place] | [place], [place] | | | | | [place] [address] | [address] | | | | | [phone] | | | +--------+ + + + [...] | | | | | | [place] [address] | | | | | | [phone] | | | | | | | [...] + +--------+ + + + | FL SI JOINT | Routin | 02/26/2013 | | Results for this | | INJECTION | e | 6:18 PM | | procedure are in the | | | | PDT | | results section. | + +--------+ + + + documented in this encounter Results FL SI Joint Injection (02/26/2013 6:18 PM PDT) + + | Specimen | + + | | + + + + + | Narrative | Performed At | + + + | [facility] | [place] | | Department [address] [facility] | [facility] | | [ rep [phone]] [ rep [facility] | | st zip] Signed | - IMAGING | | | | | Patient Name: SHAVONNE CASTILLO Physician: | | | ANNALISA : 1940 Age: 73 Sex: F Unit #: [id number] | | | Exam Date: 02/26/13 Location: [facility] | | | Report #: [id number] Page: | | | %(RAD)RES..mtdd.print.filter("pg") of %(RAD) | | | RES..mtdd.print.filter("tpg") | | | | | | Accession Number: [id number] | | | SACROILIAC JOINT INJECTION, TROCHANTERIC BURSA INJECTION, 02/26/2013 | | | CLINICAL HISTORY: ICD-CODE 720.2 SACROILIITIS, 726.5 | | | TROCHANTERIC BURSITIS. Ms. Shavonne Castillo presents to the | | | fluoroscopy suite for fluoroscopically guided bilateral sacroiliac | | | joint steroid injections as part of conservative management for | | | chronic pain and sacroiliitis; also for bilateral trochanteric bursa | | | injections as part of conservative management for chronic pain and | | | trochanteric bursitis. After informed consent was obtained, the | | | patient lay in the prone position on the fluoroscopy table. The | | | sacroiliac joints are identified under fluoroscopic guidance. Areas | | | were prepped and draped in the usual sterile fashion. A 25-gauge 1.5 | | | inch needle was inserted and approximately 3 mL of buffered 1% | | | lidocaine was infused. Then, a 22-gauge spinal needle was inserted | | | into the joint spaces under fluoroscopic guidance. Confirmation | | | into the sacroiliac joints was obtained with infusion of | | | approximately 1 mL of Isovue contrast which showed flow within the | | | joint spaces. Then, a combination of 1 mL of 1% lidocaine and 1 mL | | | 40 mg/mL Kenalog was infused, divided between the 2 sides. Next, | | | a trochanteric bursa injection was performed. The areas were | | | localized under fluoroscopic guidance. The areas were prepped with | | | chlorhexidine then a 25-gauge 1.5 inch needle was used to | | | administer approximately 2 mL buffered 1% lidocaine for local | | | anesthesia. Then, a 22 -gauge spinal needle was advanced down the | | | periosteum on each side a small amount of Isovue contrast was | | | administered to ensure that there was no vascular uptake. Then, a | | | combination of 1 mL of 40 mg/mL Kenalog and 8 mL of 1% lidocaine was | | | infused, divided between the 2 sides. The patient tolerated to | | | procedures well without complications. Pre- and post-procedure blood | | | pressures were stable. The patient was given verbal as well as | | | written followup instructions. The patient reported some | | | improvement in pain symptoms post-procedure. Prior to the | | | start of the procedure, the following were performed and verified, | | | including correct patient identity, correct site/side marked and | | | visible, agreement of procedure to be done, correct patient | | | positioning and an accurate procedure consent form. Any safety | | | precautions based on clinical history and/or medication use have | | | been addressed. I personally performed the procedure | | | above. Dictated Date/Time: 02/26/2013 18:18 | | | Transcribed Date/Time: 02/26/2013 18:46 Jute Bag Sewer: | | | CARLA <<Signature on File>> | | | Nilson Jensen | | | MD Richa02/27/13 0856 <Electronically signed by Nilson Jensen | | | Richa SAVAGE> Nilson Chaudhry MD 02/26/13 1818 | | | Jute Bag Sewer: Boby Kim02/26/136 | | | | | + + + + + + + + | Performing | Address | City/State/Zipcode | Phone Number | | Organization | | | | + + + + + | [facility] | [address] | [place] | [phone] | | [facility] | | [address] | | | - IMAGING | | | | + + + + + documented in this encounter Visit Diagnoses Not on filedocumented in this encounter
--- OUTSIDE RECORDS SUMMARY | ~2019-10-18 | XMS | Encounter Summary ---
Demographics + + + | Address | [address] | | | [place] [address] | + + + | Home Phone | | + + + | Preferred Language | Unknown | + + + | Marital Status | | + + + | Faith Affiliation | 1027 | + + + | Race | Unknown | + + + | Ethnic Group | Unknown | + + + Author + + + | Author | [facility] | | | and [place] | + + + | Organization | [facility] | | | [...] Team Providers + +------+ + | Care Life Sciences Director Name | Role | Phone | + [...] | Lumbar | Bogdanowicz, | [address] | | | | | radiculopath | Sheryl, | [place], | | | | | y Right hip | PA-C [address] | [place] | | | | | pain | [address] | [address] | | | | | Procedures | [place], [place] | Phone: | | | | | [place] | [address] | [phone] | | | | | Joint | Phone: | Fax: | | | | | Injection | [phone] | [phone] | | | | | Right IN | Fax: | | | | | | INJECT | [phone] | | | | | | ANES/STEROID | | | | | | | FORAMEN | | | | | | | LUMBAR/SACRA | | | | | | | L W IMG | | | | | | | GUIDE ,1 | | | | | | | LEVEL IN | | | | | | | [...] | | | | | ADD ON IN | | | | | | | [...] | (Primary Dx); | | | | [address] [place], | [place], | Spinal stenosis of | | | | [place] [address] | [place] [address] | lumbar region - | | | | [phone] | [phone] | L3/L4, adjacent | | | | [...] of the procedure you must provide a sweeper driver to take you home. For all [...] in [address] Yong Pena in [place], use of hydrocodone 3 x/day and flexeril, [...] PT (multiple sessions over the years) and client care consultant. Unfortunately she cont inues to have significant [...] | | | | | | [place] [address] | | | | | | [phone] | | | | | | | [...] Trochanteric Bursitis ICD-10 Code M54.16 and | [facility] | | M70.61 Rebeccapaola Castillo presents to [...] | + + + + + | [address] | [address] | [place] | [phone] | | [facility] | | [address] | | | - IMAGING | | [...] Right Trochanteric Bursa Injection Diagnosis: Lumbar | [facility] | | radiculopathy and Trochanteric Bursitis ICD-10 Code M54.16 and | [facility] | | M70.61 Rebecca Castillo presents to [...] + | [address] | [address] | [place] | [phone] | | [facility] | | [address] | | | - IMAGING | | [...]
--- OUTSIDE RECORDS SUMMARY | ~2019-10-18 | XMS | Encounter Summary ---
Demographics + + + | Address | [address] | | | [place] [address] | + + + | Home Phone | | + + + | Preferred Language | Unknown | + + + | Marital Status | | + + + | Pentecostalism Affiliation | Unknown | + + + | Race | White | + + + | Ethnic Group | Not or | + + + Author + + + | Author | [facility] | + + + | Organization | [facility] | + + + | Address [...] Team Providers + +------+ + | Care Scoop Operator Name | Role | Phone | [...] as of this encounter Progress Notes Interface, Applications Engineer In - 10/22/2006 1:06 AM PSTCLINIC DATE: [...] cancel her further appointments. Kavon Melton M.D. Patent Paralegal, Plastic and Reconstructive Surgery TOREY/nevin d ocumented in this encounter Plan of Treatment Not on filedocumented as of this encounter Visit Diagnoses Not on filedocumented in this encounter"
--- OUTSIDE RECORDS SUMMARY | ~2019-10-18 | XMS | Encounter Summary ---
Demographics + + + | Address | [address] | | | [place] [address] | + + + | Home Phone [...] Providers + +------+ + | Care Welfare Officer Name | Role | Phone | [...] + + | 09/22/ | Procedure | [facility] | | Sick sinus syndrome | | 2019 | visit | [facility] | | ([facility]) (Primary Dx); | | | | [address] | | Chronic diastolic | | | | [place], [place] | | heart failure ([facility]); | | | | [address] | | Cardiac pacemaker | | | | [phone] | | in situ; Paroxysmal | | | | | | atrial fibrillation | | | | | | ([facility]) | +--------+ + + + [...] | | | | | | [place] [address] | | | | | | [phone] | | | | | | | [...] encounter for additional details. | | | desktop support manager: Benjamin Garcia, desktop support manager [facility] | | |See device data attached to scheduled encounter for additional | | |details. | | | | | |desktop support manager: Benjamin Garcia, desktop support manager [facility] | | | | | | [...]
--- OUTSIDE RECORDS SUMMARY | ~2019-10-18 | XMS | Encounter Summary ---
Demographics + + + | Address | [address] | | | [place] [address] | + + + | Home Phone [...] Team Providers + +------+ + | Care Polishing Machine Operator Name | Role | Phone [...] [facility] | | | | | Thoracic or | [place], | [address] | | | | | lumbosacral | Nilson Jensen MD | [place], | | | | | neuritis or | [address] | [place] | | | | | | ST [place] | [address] | | | | | radiculitis, | [place], [place] | Phone: | | | | | unspecified | [address] | [phone] | | | | | Procedures | Phone: | Fax: | | | | | [place] INJECT | [phone] | [phone] | | | | | ANES/STEROID | Fax: | | | | | | FORAMEN | [phone] | | | | | | LUMBAR/SACRA | | | | | | | L W IMG | | | | | | | GUIDE ,1 | | | | | | | LEVEL [place] | | | | | | | TRIAMCINOLON | | | | | | | E ACET INJ | | | | | | | NOS, 10 MG | | | | | | | Bilat L4-5 | | | | | | | TFESI-appt | | | | | | | 6/8 | | | +--------+--------+ + + + + Encounter Details +--------+ + + + + | Date | Type | Department | Care Team | Description | +--------+ + + + + | 04/28/ | Hospital | [facility] | Bogdanowicz, | Lumbar | | 2015 | Encounter | MED CTR XRAY [address] | [place] Saucedo [address] | radiculopathy; | | | | [place] | [facility], | Spinal stenosis of | | | | [place] [address] | [place] [address] | lumbar region - | | | | [phone] | L3/L4, 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; | | | | | Staple Side LasterJaspal | Chronic back pain; | | | | | | Lumbar scoliosis | +--------+ + + + + Social [...] +---------+ + + | Blood Pressure | 129/87 | 04/28/2015 2:12 PM | | | | | PDT | | + +---------+ + + | Pulse | 133 | 04/28/2015 2:12 PM | | | | | PDT [...] | | 2019 | Visit | | [address] | | | | | | [place] | | | | | | [place] [address] | | | | | | [phone] | | | | | | | [...] | [place] EPIDURAL STEROID | Routin | 04/28/2015 | Lumbar | Results for this | | INJECTION LUMBAR | e | 2:00 PM | radiculopathy | procedure are in the | | TRANSFORAMINAL | | PDT | Spinal stenosis of | results section. | | | | | lumbar region - | | | | | | L3/L4, 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 | | | | | | Chronic back pain | | | | | | Lumbar scoliosis | | + +--------+ + + + documented in this encounter Results FL SRINIVAS Lumbar Transforaminal (04/28/2015 2:00 PM PDT) + + | Specimen | + + | | + + + + + | Narrative | Performed At | + + + | 04/28/2015 Bilateral Transforaminal Epidural Steroid Injections | [facility] | | Diagnosis: Lumbar radiculopathy ICD-9 Code 724.4 Rebecca Lua | [facility] | | Jonathan presents to the fluoroscopy suite for fluoroscopically-guided | [facility]ICAL CENTER | | bilateral L4-L5 transforaminal epidural steroid [...] ST. | [address] | [place], [place] | [phone] | | [facility] | | [address] | | | - IMAGING | | [...] neurogenic claudication | + + | Chronic back pain Backache, unspecified | + + | Lumbar scoliosis Scoliosis (and kyphoscoliosis), idiopathic | + + documented in this encounter Administered Medications + +--------+ +-------+------+------+ | Medication Order | MAR | Action | Dose | Rate | Site | | | Action | Date | | | | + +--------+ +-------+------+------+ | betamethasone (CELESTONE | Given | 04/28/20 | 12 mg | | | | SOLUSPAN) injection 12 mg 12 mg, | | 15 2:05 | | | | | Other, ONCE, Sharon 04/28/15 at | | PM PDT | | | | | 1415, For 1 dose, Shake well. Not | | | | | | | for IV use., | | | | | | + +--------+ +-------+------+------+ +---+---+ | | | +---+---+ + +-------+ +-------+---+---+ | iohexol (OMNIPAQUE 300) 300 | Given | 04/28/20 | 4 mLs | | | | mg/mL injection 4 mL 4 mL, | | 15 2:02 | | | | | INTRATHECAL, ONCE, Sharon 04/28/15 at | | PM PDT | | | | | 1415, For 1 dose | | | | | | + +-------+ +-------+---+---+ +---+---+ | | | +---+---+ + +-------+ +------+---+ + | lidocaine 1% injection 1 mL 1 | Given | 04/28/20 | 1 mL | | Other | | mL, Intradermal, ONCE, Sharon | | 15 1:58 | | | (Comment | | 04/28/15 at 1415, For 1 dose | | PM PDT | | | ) | + +-------+ +------+---+ + +---+---+ | | | +---+---+ + +-------+ +------+---+---+ | sodium bicarbonate (NEUT) 4% | Given | 04/28/20 | 1 mL | | | | injection 1 mL 1 mL, | | 15 1:58 | | | | | Intravenous, ONCE, Sharon 04/28/15 at | | PM PDT | | | | | 1415, For 1 dose, Use for | | | | | | | addition to other parenteral | | | | | | | solutions., | | | | | | + +-------+ +------+---+---+ +---+---+ | | | +---+---+ documented in this encounter"
--- OUTSIDE RECORDS SUMMARY | ~2019-10-18 | XMS | Encounter Summary ---
Demographics + + + | Address | [address] | | | [place] [address] | + + + | Home Phone | | + + + | Preferred Language | Unknown | + + + | Marital Status | | + + + | Sabianist Affiliation | 1027 | + + + [...] Providers + +------+ + | Care Public Finance Specialist Name | Role | Phone | + +------+ + | Jesus Mijares MD | PCP | | + +------+ + Encounter Details +--------+---------+ + + + | Date | Type | Department | Care Team | Description | +--------+---------+ + + + | 09/22/ | Office | [facility] | Mary Moe ANP | Paroxysmal atrial | | 2019 | Visit | CARDIOLOGY [facility] | [address] | flutter (HCC) | | | | [address] | [place], [place] | (Primary Dx); PSVT | | | | [place], [place] | [address] | (paroxysmal | | | | [address] | | supraventricular | | | | [phone] | | tachycardia) ([facility]); | | | | | [...] | | | | failure type ([facility]); | | | | | | Cardiac [...] with prolonged AV con duction HR 60, TX 284, QRSD 96, QTC 440 EP PROBLEMS [...] in situ Overview Setrox S-53 cm, model 782506, #[id number] lead was placed into the right ventricle [...] ohms. The leads were attached to a [employer] [employer] [address] , model 186471, serial #[id number] pacemaker. FINAL SETTINGS FOR THE DEVICE Mode [...] joint 12/01/2018 CHF (congestive heart failure) ([facility]) 07/31/2018 Note Last Updated: 09/22/2019 Overview: Chronic Diastolic Heart Failure, predominantly right-sided sxs (edema) 09/22/2019 Volume status improved. Euvolemic on examination today. Hypokalemia 06/04/2018 Hypomagnesemia 06/04/2018 Rotator cuff tear, right 02/06/2018 Nontraumatic tear of right supraspinatus tendon 01/03/2018 Acute pain of right shoulder 11/12/2017 Cardiac pacemaker in situ 09/03/2017 Note Last Updated: 09/22/2019 Setrox S-53 cm, model 906936, #[id number] lead was placed into the right ventricle [...] ohms. The leads were attached to a [employer] Etrinsa 8 , model 792436, serial #[id number] pacemaker. FINAL SETTINGS FOR THE DEVICE Mode [...] Chronic kidney disease, stage III (moderate) ([facility]) 12/06/2015 Paroxysmal atrial flutter ([facility]) 12/06/2015 Hypertension 12/06/2015 Note Last Updated: 09/22/2019 09/22/2019 SBP improved since increasing Losartan 3 weeks ago. She keeps BP log at home. Type 2 diabetes mellitus ([facility]) 12/06/2015 Note Last Updated: 12/06/2015 Overview: was on insulin at one time, stopped after weight loss Atrial fibrillation ([facility]) 12/06/2015 Note Last Updated: 09/22/2019 Overview: Paroxysmal, [...] 11.2 oz) | SpO2 98% | B TX 26.38 kg/m Physical Exam Constitutional: She is [...] notes on file Brittani Ga Medic al Pipe Organ Technician - 09/22/2019 9:30 AM Debbie CHRISTIANSEN Note- [...] 11/17/ | Office | Cardiology | Rajendra Fowelr, | | | 2019 | Visit | | [address] | | | | | | [place], | | | | | | [place] [address] | | | | | | [phone] | | | | | | | [...] | | | | | tachycardia) ([facility]) | | | | | | Paroxysmal [...] | | | | | by [employer] [place] Read Only, | | | | | | [employer] Junie ([id number]), | | | | | | state editor Kervin Coker | | | | | | ([phone]) on 09/22/2019 | | | | | [...] + | PSVT (paroxysmal supraventricular tachycardia) ([facility]) Paroxysmal supraventricular | | tachycardia | + [...]
--- OUTSIDE RECORDS SUMMARY | ~2019-10-18 | XMS | Encounter Summary ---
Demographics + + + | Address | [address] | | | [place] [address] | + + + | Home Phone | | + + + | Preferred Language | Unknown | + + + | Marital Status | | + + + | Oriental Orthodox Affiliation | 1027 | + + + | Race | Unknown | + + + | Ethnic Group | Unknown | + + + Author + + + | Author | [facility] | | | and [place] | + + + | Organization | [facility] | | | and [...] Team Providers + +------+ + | Care Oyster Culler Name | Role | Phone | + +------+ + | Jesus Mijares MD | PCP | | + +------+ + Reason for Visit Diagnostic/Screening (Routine) +--------+--------+ + + + + | Status | Reason | Specialty | Diagnoses / | Referred By | Referred To | | | | | Procedures | Contact | Contact | +--------+--------+ + + + + | Closed | | Radiology | Diagnoses | | [facility] | | | | | | [place], | [address] | | | | | Trochanteric | Nilson Jensen MD | [place], | | | | | bursitis of | [address] | [place] | | | | | right hip | [place] | [address] | | | | | Procedures | [place], [place] | Phone: | | | | | [place] | [address] | [phone] | | | | | Joint | Phone: | Fax: | | | | | Injection | [phone] | [phone] | | | | | Right | Fax: | | | | | | | [phone] | | +--------+--------+ + + + + Encounter Details +--------+ + + + + | Date | Type | Department | Care Team | Description | +--------+ + + + + | 04/29/ | Hospital | [facility] | Nildanowicz, | Lumbar | | 2017 | Encounter | MED CTR XRAY [address] | [place]AL[place] Saucedo [address] | radiculopathy; | | | | [place] | [address] [place], | Spinal stenosis of | | | | [place] [address] | [place] [address] | lumbar region - | | | | [phone] | [phone] | L3/L4, 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; | | | | | [place] | Spondylolisthesis, | | | | | | unspecified spinal | | | | | | region; Adolescent | | | | | | [...] +---------+ + + | Blood Pressure | 122/57 | 04/29/2017 1:00 PM | | | | | PDT | | + +---------+ + + | Pulse | 79 | 04/29/2017 1:00 PM | | | | | PDT [...] + + | digoxin (LANOXIN) | Take 125 mcg by | | 0 | | | | 125 mcg tablet | mouth nightly. | | | | 8 | + + + +---------+ + + [...] | | | | | | [place] [address] | | | | | | [phone] | | | | | | | [...] | [place] EPIDURAL STEROID | Routin | 04/29/2017 | Lumbar | Results for this | | INJECTION LUMBAR | e | 1:36 PM | radiculopathy | procedure are in the | | TRANSFORAMINAL | | PDT | Spinal stenosis of | results section. | | | | | lumbar region - | | | | | | L3/L4, 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 | | | | | | Spondylolisthesis, | | | | | | unspecified spinal | | | | | | region Adolescent | | | | | | idiopathic scoliosis | | | | | | of lumbar region | | + +--------+ + + + documented in this encounter Results FL SRINIVAS Lumbar Transforaminal (04/29/2017 1:36 PM PDT) + + | Specimen | + + | | + + + + ---+ | Narrative | Performed At | + + ---+ | 04/29/2017 | [facility] | | Bilateral Transforaminal Epidural Steroid Injections and Bilateral | [facility] | | Trochanteric Bursa Injections Diagnosis: Lumbar radiculopathy and | [facility] | | Trochanteric Bursitis ICD-10 Codes M54.16 and M70.6 Rebecca Castillo | - IMAGING | | presents to [...] + + | [facility] | [address] | [place] | [phone] | | [facility] | | [address] | | | - IMAGING | | [...] unspecified spinal region | + + | Adolescent idiopathic [...] +-------+------+------+ | betamethasone (CELESTONE | Given | 04/29/20 | 12 mg | | | | SOLUSPAN) injection 12 mg 12 mg, | | 17 1:50 | | | | | Other, ONCE, 04/29/17 at | | PM PDT | | | | | 1345, For 1 dose, Shake well. Not | | | | | | | for IV use., | | | | | | + +--------+ +-------+------+------+ +---+---+ | | | +---+---+ + +-------+ +-------+---+---+ | iohexol (OMNIPAQUE 300) 300 | Given | 04/29/20 | 4 mLs | | | | mg/mL injection 4 mL 4 mL, | | 17 1:45 | | | | | Other, ONCE, 04/29/17 at 1345, | | PM PDT | | | | | For 1 dose | | | | | | + +-------+ +-------+---+---+ +---+---+ | | | +---+---+ + +-------+ +-------+---+---+ | lidocaine (PF) 1% injection 2 | Given | 04/29/20 | 2 mLs | | | | mL 2 mL, Other, ONCE, Sat | | 17 1:50 | | | | | 04/29/17 at 1345, For 1 dose | | PM PDT | | | | + +-------+ +-------+---+---+ +---+---+ | | | +---+---+ + +-------+ +--------+---+---+ | lidocaine buffered 1% injection | Given | 04/29/20 | 10 mLs | | | | 10 mL 10 mL, Other, ONCE, Mon | | 17 1:38 | | | | | 04/29/17 at 1345, For 1 dose | | PM PDT | | | | + +-------+ +--------+---+---+ +---+---+ | | | +---+---+ documented in this encounter Additional Health Concerns + + + + | Infection | Noted Time | Resolved Time | + + + + | Methicillin-resistant Staphylococcus aureus | 03/20/2017 12:00 AM | | | | PDT | | + + + + documented as of this encounter"
--- OUTSIDE RECORDS SUMMARY | ~2019-10-18 | XMS | Encounter Summary ---
Demographics + + + | Address | [address] | | | [place] [address] | + + + | Home Phone [...] Team Providers + +------+ + | Care Information Strategist Name | Role | Phone | + +------+ + | Jesus Mijares MD | PCP | | + +------+ + Reason for Visit +--------+ + | Reason | Comments | +--------+ + | Other | Neurosurgeon referral and possible injection | +--------+ + Encounter Details +--------+ + + + + | Date | Type | Department | Care Team | Description | +--------+ + + + + | 05/12/ | Telephone | [facility] | Nilson Chaudhry | Other (Neurosurgeon | | 2012 | | ORTHOPEDIC SURGERY | MD Camila [address] | referral and | | | | [address] [place] [address] | [place], [place] | possible injection) | | | | [place], [place] | [address] | | | | | [address] | | | | | | [phone] | | | +--------+ + + + [...] | | | | | | [place] [address] | | | | | | [phone] | | | | | | | [...]
--- OUTSIDE RECORDS SUMMARY | ~2019-10-18 | XMS | Encounter Summary ---
Demographics + + + | Address | [address] | | | [place] [address] | + + + | Home Phone [...] Team Providers + +------+ + | Care Meat Market Manager Name | Role | Phone | + +------+ + | Jesus Mijares MD | PCP | | + +------+ + Encounter Details +--------+ + + + + | Date | Type | Department | Care Team | Description | +--------+ + + + + | 11/20/ | Orders Only | [facility] | Veto Neri, | | | 2017 | | NEPHROLOGY [place] | PARATRANSIT OPERATOR [address] | | | | [address] [place] | [place] [address] | | | | | [address] [place], [place] | [place], [place] | | | | | [address] | [address] | | | | | [phone] | [phone] | | | | | | | [...] | | | | | | [place] [address] | | | | | | [phone] | | | | | | | [...] | | | LAB | | | [facility] | | | | | + +---------+ [...]
--- OUTSIDE RECORDS SUMMARY | ~2019-10-18 | XMS | Encounter Summary ---
Demographics + + + | Address | [address] | | | [place] [address] | + + + | Home Phone [...] Team Providers + +------+ + | Care Log Turner Name | Role | Phone | + +------+ + | Jesus Mijares MD | PCP | | + +------+ + Reason for Visit + + + | Reason | Comments | + + + | Wrist Pain | Right wrist pain | + + + Encounter Details +--------+ + + + + | Date | Type | Department | Care Team | Description | +--------+ + + + + | 01/26/ | Procedure | [facility] [place] | Nilson Chuadhry | Carpal tunnel | | 2012 | visit | PHYSIATRY [address] | TMD [address] | syndrome, bilateral | | | | [place], | [place], [place] | (Primary Dx) | | | | [place] [address] | [address] | | | | | [phone] | | | +--------+ + + + [...] +---------+ + + | Blood Pressure | 101/43 | 01/26/2013 8:17 AM | | | | | PDT | | + +---------+ + + | Pulse | 64 | 01/26/2013 8:17 AM | | | | | PDT [...] +---------+ + + documented in this encounter Progress Notes Nilson Chaudhry MD - 01/26/2013 10:27 AM PDT [facility], Physiatry [address] [place] [address] Test Date: 01/26/2013 Patient Name: Rebecca Castillo : 1940 Physician: Nilson Chaudhry MD MR #: [id number] Sex: Female Referring Physician: Jarad Mitchell MD HISTORY: The patient is a pleasant 72 year-old right-handed female who is being seen today at the request of Dr. Jarad Mitchell for complaints of right hand numbness and tingling. Th e numbness mostly involves the 1st-3rd digits. She notices the numbness most when doing nee dlework. She has noticed the numbness for approximately 1 year. The patient does have a history of diabetes and has some numbness in the feet as well. She denies any history of al cohol abuse or hypothyoidism. She has never been diagnosed with cancer. PHYSICAL EXAM: The patient is alert and appropriate. She is in no apparent discomfort. She localizes the numbness to the 1st-3rd digits bilaterally, right greater than left. She has positive Jana l s sign on the right at the wrist and bilaterally positive Phalen s sign. Reflexes wer e within normal limits in the upper extremities. Strength testing showed no significant foc al weakness. Nerve Conduction Studies Anti Sensory Summary Table Site NR Peak (ms) Norm Peak (ms) P-T Amp (V) Norm P-T Amp Site1 Site2 Delta-P (ms) Dist (cm) Rubin (m/s) Norm Rubin (m/s) Left Radial Anti Sensory (Base 1st Digit) Wrist 2.3 <3.1 28.5 Wrist Base 1st Digit 2.3 0.0 Right Radial Anti Sensory (Base 1st Digit) Wrist 2.5 <3.1 25.4 Wrist Base 1st Digit 2.5 0.0 Motor Summary Table Site NR Onset (ms) Norm Onset (ms) O-P Amp (mV) Norm O-P Amp Site1 Site2 Delta-0 (ms) Dist (cm) Rubin (m/s) Norm Rubin (m/s) Left Median Motor (Abd Poll Brev) Wrist *4.5 <4.2 *1.6 >5 Elbow Wrist 4.1 0.0 >50 Elbow 8.6 0.8 Right Median Motor (Abd Poll Brev) Wrist *5.9 <4.2 *0.5 >5 Elbow Wrist 5.2 0.0 >50 Elbow 11.1 0.7 Left Ulnar Motor (Abd Dig Minimi) Wrist 3.1 <4.2 8.6 >3 B Elbow Wrist 3.0 0.0 >53 B Elbow 6.1 7.7 A Elbow B Elbow 2.3 0.0 >53 A Elbow 8.4 8.6 Right Ulnar Motor (Abd Dig Minimi) Wrist 3.0 <4.2 9.7 >3 B Elbow Wrist 3.7 22.0 59 >53 B Elbow 6.7 9.2 A Elbow B Elbow 1.7 11.0 65 >53 A Elbow 8.4 9.4 Comparison Summary Table Site NR Peak (ms) Norm Peak (ms) P-T Amp (V) Site1 Site2 Delta-P (ms) Norm Delta (ms) Left Median/Ulnar Palm Comparison (Wrist - 8cm) Median Palm *2.5 <2.2 31.6 Median Palm Ulnar Palm *0.7 <0.3 Ulnar Palm 1.8 <2.2 22.2 Right Median/Ulnar Palm Comparison (Wrist - 8cm) Median Palm *3.6 <2.2 11.8 Median Palm Ulnar Palm *1.8 <0.3 Ulnar Palm 1.8 <2.2 27.5 EMG Side Muscle Nerve Root Ins Act Fibs Psw Amp Dur Poly Recrt Int Pat Comment Right Deltoid Axillary C5-6 Nml Nml Nml Nml Nml 0 Nml Nml Right Biceps Musculocut C5-6 Nml Nml Nml Nml Nml 0 Nml Nml Right Triceps Radial C6-7-8 Nml Nml Nml Nml Nml 0 Nml Nml Right PronatorTeres Median C6-7 Nml Nml Nml Nml Nml 0 Nml Nml Right 1stDorInt Ulnar C8-T1 Nml Nml Nml Nml Nml 0 Nml Nml Nerve Conduction Studies Motor Left/Right Comparison Site L Lat (ms) R Lat (ms) L-R Lat (ms) L Amp (mV) R Amp (mV) L-R Amp (%) Site1 Site2 L Ve l (m/s) R Rubin (m/s) L-R Rubin (m/s) Median Motor (Abd Poll Brev) Wrist *4.5 *5.9 *1.4 *1.6 *0.5 *68.8 Elbow Wrist Elbow 8.6 11.1 2.5 0.8 0.7 12.5 Ulnar Motor (Abd Dig Minimi) Wrist 3.1 3.0 0.1 8.6 9.7 11.3 B Elbow Wrist 59 B Elbow 6.1 6.7 0.6 7.7 9.2 16.3 A Elbow B Elbow 65 A Elbow 8.4 8.4 0.0 8.6 9.4 8.5 Anti Sensory Left/Right Comparison Site L Lat (ms) R Lat (ms) L-R Lat (ms) L Amp (V) R Amp (V) L-R Amp (%) Site1 Site2 L Rubin (m/s) R Rubin (m/s) L-R Rubin (m/s) Radial Anti Sensory (Base 1st Digit) Wrist 2.3 2.5 0.2 28.5 25.4 10.9 Wrist Base 1st Digit Comparison Left/Right Comparison Site L Lat (ms) R Lat (ms) L-R Lat (ms) L Amp (V) R Amp (V) L-R Amp (%) Median/Ulnar Palm Comparison (Wrist - 8cm) Median Palm *2.5 *3.6 1.1 31.6 11.8 62.7 Ulnar Palm 1.8 1.8 0.0 22.2 27.5 19.3 NCV FINDINGS: Evaluation of the Left median motor and the Right median motor nerves showed prolonged dist al onset latency and reduced amplitude. The Left median/ulnar (palm) comparison and the Rig ht median/ulnar (palm) comparison nerves showed prolonged distal peak latency (Median Palm) and abnormal peak latency difference (Median Palm-Ulnar Palm). All remaining nerves (as ind icated in the following tables) were within normal limits. EMG FINDINGS: All examined muscles (as indicated in the following table) showed no evidence of electrical instability. 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 This is consistent with a clinical diagnosis of carpal tunnel syndrome. This would be graded as sev ere on the right and moderate to moderately severe on the left. There was no electrodiagnostic evidence of cervical radiculopathy, ulnar neuropathy, brachi al plexopathy or peripheral neuropathy. The patient will follow-up with Dr. Jarad Mitchell to discuss the results of this study and further plan of care. Thank you for allowing me to perform neurodiagnostic testing on your patient. If you have a ny further questions or comments, please do not hesitate to call. Nilson Chaudhry MD Diplomate, [place] [employer] and Rehabilitation. documented in this encounter Plan of Treatment [...] | | | | | | [place] [address] | | | | | | [phone] | | | | | | | [...] + | Diagnosis | + + | Carpal tunnel syndrome, bilateral - Primary Carpal tunnel syndrome | + + documented in this encounter"
--- OUTSIDE RECORDS SUMMARY | ~2019-10-18 | XMS | Encounter Summary ---
Demographics + + + | Address | [address] | | | [place] [address] | + + + | Home Phone | | + + + | Preferred Language | Unknown | + + + | Marital Status | | + + + | Mandaen Affiliation | [id number] | + + + [...] Team Providers + +------+ + | Care Playback Operator Name | Role | Phone | + +------+ + PCP | Unavailable | + +------+ + Encounter Details +--------+ + + + + | Date | Type | Department | Care Team | Description | +--------+ + + + + | 11/21/ | Hospital | [facility] | | | | 2011 | Encounter | MED CTR XRAY [address] | | | | | | [address] | | | | | | [place] [address] | | | | | | [phone] | | | +--------+ + + + [...] [place], | | | | | | [place] [address] | | | | | | [phone] | | | | | | | [...] + + + | MRI LUMBAR SPINE WO | | 11/21/2011 | | Results for this | | CONTRAST | | 7:49 AM | | procedure are in the | | | | PST | | results section. | + +--------+ + + + documented in this encounter Results MRI Lumbar Spine wo Contrast (11/21/2011 7:49 AM PST) + + | Specimen | + + | | + + + + + | Narrative | Performed At | + + + | [facility] | [facility] | | [address], [facility] | [facility] | | MRI LUMBAR SPINE WITHOUT | DIAG IMG | | CONTRAST: 11/21/2011 CLINICAL HISTORY: INCREASING LOW BACK | | | PAIN. COMPARISON: None. TECHNIQUE: Multiplanar, | | | multisequence MR imaging of the lumbar spine without contrast. | | | FINDINGS: There is a dextroconvex scoliotic curvature. Assuming | | | five nonrib bearing lumbar-type tracy tebral bodies, this apex is at | | | L2. There is some lateralization of L3 in relation to L4. | | | Sagittally , there is some very minimal anterolisthesis of L5 on | | | S1. Vertebral bodies are of normal height. Th ere is diffuse disk | | | desiccation. Some asymmetric disk narrowing is present at L1-2 and | | | L2-3. Simila rly there is disk narrowing at L3-4. Relative | | | sparing of L4-5. There is lateral disk narrowing of L 5-S1. | | | Chronic endplate degenerative changes are present at L5-S1. | | | Vertebral bodies are all somewhat patchy in their marrow signal. | | | Most of the patchiness is attributable to endplate changes or focal | | | areas of T1 and T2 hyperintensity which are of low signal on STIR | | | suggesting focal fat or small heman giomas. The conus is | | | terminating at the thoracolumbar junction. The following levels are | | | evaluated in the axial plane: L1-2: Right eccentric disk | | | protrusion mildly narrowing the central canal. Bilateral small facet | | | ef fusions. Mild narrowing of the right. There is moderate to | | | severe narrowing on the left involving t he neural foramen. L2-3: | | | Left eccentric focal disk protrusion. Bilateral facet arthrosis | | | and facet effusions. Modera te left sided neural foraminal | | | narrowing. The right is mildly narrowed. L3-4: | | | Circumferential disk bulge. Moderate facet arthrosis and facet | | | effusions. Ligamentum flavum redundancy. These contribute to | | | mild to moderate central spinal canal narrowing and some encroachme | | | nt on the subarticular recesses. There is mild bilateral neural | | | foraminal narrowing. L4-5: Circumferential disk bulge. | | | Moderate facet arthrosis and facet effusions. Some narrowing of | | | the central spinal canal and subarticular recesses. Mild to moderate | | | right neural foraminal narrowi ng. Mild left. L5-S1: Mild | | | uncovering of the disk. There is a focal right foraminal protrusion | | | which does appear t o contact and somewhat deflect the exiting L5 | | | nerve root. Moderate to severe bilateral facet arthros is. Mild | | | right neural foraminal narrowing. IMPRESSION: 1. 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 CENTRAL SPINAL CANAL IS MOST SIGNIFICANTLY AFFECTED AT | | | THE L3-4 LEVEL, WHERE THERE IS NARROWING DUE TO MULTIPLE FACTORS INCL | | | UDING FACET ARTHROSIS, LIGAMENTUM FLAVUM REDUNDANCY AND DISK DISEASE. | | | 2. FORAMINAL NARROWING APPEARS TO BE MOST SIGNIFICANT ON THE | | | LEFT AT L1-2 AND L2-3. IT IS MOST AFFE CTED ON THE RIGHT AT L4-5. | | | 3. CONTACT AND LIKELY DEFLECTION OF THE EXITING RIGHT L5 NERVE | | | ROOT DUE TO A FOCAL FORAMINAL DISK AK OTRUSION AT L5-S1. Dictated | | | Date/Time: 11/21/2011 11:02 Transcribed Date/Time: 11/21/2011 | | | 11:20 Reviewer Sales: <Electronically Signed by Mitch Jensen | | | MD Kay> 11/21/11 2206 | | + + + + + | Procedure Note | + + | Jeanmarie, Rad Conversion - 11/20/2013 4:42 PM [facility] | | Diagnostic Imaging Department [address] [place] [address] | | MRI LUMBAR SPINE WITHOUT CONTRAST: 11/21/2011 CLINICAL | | HISTORY: INCREASING LOW BACK PAIN. COMPARISON: None. TECHNIQUE: Multiplanar, | | multisequence MR imaging of the lumbar spine without contrast. FINDINGS: There is a | | dextroconvex scoliotic curvature. Assuming five nonrib bearing lumbar-type vertebral | | bodies, this apex is at L2. There is some lateralization of L3 in relation to L4. | | Sagittally, there is some very minimal anterolisthesis of L5 on S1. Vertebral bodies | | are of normal height. There is diffuse disk desiccation. Some asymmetric disk | | narrowing is present at L1-2 and L2-3. Similarly there is disk narrowing at L3-4. | | Relative sparing of L4-5. There is lateral disk narrowing of L5-S1. Chronic endplate | | degenerative changes are present at L5-S1. Vertebral bodies are all somewhat patchy in | | their marrow signal. Most of the patchiness is attributable to endplate changes or | | focal areas of T1 and T2 hyperintensity which are of low signal on STIR suggesting focal | | fat or small hemangiomas. The conus is terminating at the thoracolumbar junction. The | | following levels are evaluated in the axial plane: L1-2: Right eccentric disk | | protrusion mildly narrowing the central canal. Bilateral small facet effusions. Mild | | narrowing of the right. There is moderate to severe narrowing on the left involving the | | neural foramen. L2-3: Left eccentric focal disk protrusion. Bilateral facet | | arthrosis and facet effusions. Moderate left sided neural foraminal narrowing. The | | right is mildly narrowed. L3-4: Circumferential disk bulge. Moderate facet | | arthrosis and facet effusions. Ligamentum flavum redundancy. These contribute to mild | | to moderate central spinal canal narrowing and some encroachment on the subarticular | | recesses. There is mild bilateral neural foraminal narrowing. L4-5: Circumferential | | disk bulge. Moderate facet arthrosis and facet effusions. Some narrowing of the | | central spinal canal and subarticular recesses. Mild to moderate right neural foraminal | | narrowing. Mild left. L5-S1: Mild uncovering of the disk. There is a focal right | | foraminal protrusion which does appear to contact and somewhat deflect the exiting L5 | | nerve root. Moderate to severe bilateral facet arthrosis. Mild right neural foraminal | | narrowing. IMPRESSION: 1. 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 CENTRAL SPINAL CANAL IS MOST SIGNIFICANTLY AFFECTED AT THE L3-4 | | LEVEL, WHERE THERE IS NARROWING DUE TO MULTIPLE FACTORS INCLUDING FACET ARTHROSIS, | | LIGAMENTUM FLAVUM REDUNDANCY AND DISK DISEASE. 2. FORAMINAL NARROWING APPEARS TO BE | | MOST SIGNIFICANT ON THE LEFT AT L1-2 AND L2-3. IT IS MOST AFFECTED ON THE RIGHT AT | | L4-5. 3. CONTACT AND LIKELY DEFLECTION OF THE EXITING RIGHT L5 NERVE ROOT DUE TO A | | FOCAL FORAMINAL DISK PROTRUSION AT L5-S1. Dictated Date/Time: 11/21/2011 | | 11:02Transcribed Date/Time: 11/21/2011 11:20Transcriptionist: <Electronically | | Signed by Mitch Villanueva MD> 11/21/11 2206 | |ng. Mild left. | | | |L5-S1: Mild uncovering of the disk. There is a focal right foraminal protrusion which davis s appear t | |o contact and somewhat deflect the exiting L5 nerve root. Moderate to severe bilateral fac et arthros | |is. Mild right neural foraminal narrowing. | | | |IMPRESSION: | |1. 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 CENTRAL SPINA L CANAL IS | | MOST SIGNIFICANTLY AFFECTED AT THE L3-4 LEVEL, WHERE THERE IS NARROWING DUE TO MULTIPLE FA CTORS INCL | |UDING FACET ARTHROSIS, LIGAMENTUM FLAVUM REDUNDANCY AND DISK DISEASE. | | | |2. FORAMINAL NARROWING APPEARS TO BE MOST SIGNIFICANT ON THE LEFT AT L1-2 AND L2-3. IT IS MOST AFFE | |CTED ON THE RIGHT AT L4-5. | | | |3. CONTACT AND LIKELY DEFLECTION OF THE EXITING RIGHT L5 NERVE ROOT DUE TO A FOCAL FORAMIN AL DISK AK | |OTRUSION AT L5-S1. | | | |Dictated Date/Time: 11/21/2011 11:02 | |Transcribed Date/Time: 11/21/2011 11:20 | |Reviewer Sales: | |<Electronically Signed by Mitch Villanueva MD> 11/21/116 | + + + +---------+ + + | Performing | Address | City/State[facility] | Phone Number | | Organization | | | | + +---------+ + + | [facility] | | | | | [place] | | | | + +---------+ + + documented in this encounter Visit Diagnoses Not on filedocumented in this encounter"
--- OUTSIDE RECORDS SUMMARY | ~2019-10-18 | XMS | Encounter Summary ---
Demographics + + + | Address | [address] | | | [place] [address] | + + + | Home Phone [...] Team Providers + +------+ + | Care Display Fabricator Name | Role | Phone | + [...] | syndrome of | [address] | [facility] | | | | | both | [address] | [place], | | | | | shoulders | [place], | [place] | | | | | Chronic left | [place] [address] | [address] | | | | | shoulder | Phone: | Phone: | | | | | pain | [phone] | [phone] | | | | | | Fax: | Fax: | | | | | | [phone] | [phone] | + + + + + + + Reason for Visit + + + | Reason | Comments | + + + | Follow-up | Same Day Injection: BILATERAL L4/L5 TFESI | + + + Encounter Details +--------+---------+ + + + | Date | Type | Department | Care Team | Description | +--------+---------+ + + + | 03/03/ | Office | 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 Referral to orthopedic surgeon placed today [...] press against a nerve. Date Last Reviewed: 12/12/201719998740-8467 [employer]. [address] [place] [address]. All righ ts reserved. This information is not intended as a substitute for professional medical care. Always follow your healthcare professional's instructions. documented in this encounter Progress Notes Capo Bermudez PA-C - 03/03/2019 1:00 PM PDTFormatting of this note might be different fro m the original. CHIEF COMPLAINT: Chief Complaint Patient [...] standing for long periods in her ki hen. The patient does describe numbness of [...] in [address] Yong Pena in [place], use of hydrocodone 3 x/day and flexeril, [...] has no apparent deficits with short or remote computer terminal operator memory. She has appropriate fund of knowledge [...] injections today as this has worked in e past. The patient has had significant conservative care including medications (NSAIDS and narcoti cs), PT (multiple sessions over the years) and resident care assistant. Unfortunately she continue s to have significant [...] Capo Bermudez PA-C, 03/03/2019 CC:Jesus Mijares MD 1 :40 PM PDTdocumented in this encounter Plan of Treatment +--------+ + + + + | Date | Type | Specialty | Care Team | Description | +--------+ + + + + | 11/17/ | Office | Cardiology | Rajendra Fowler, | | | 2019 | Visit | | MD [address] | | | | | | [place], | | | | | | [place] [address] | | | | | | [phone] | | | | | | | [...] | +--------+ + + + + + + +--------+ + + | Name | Type | Priori | Associated Diagnoses | Order Schedule | | | | ty | | | + + +--------+ + + | FL SRIINVAS Lumbar | Imaging | Routin | Lumbar | Expected: | | Transforaminal | | e | radiculopathy | 03/03/2019, Expires: | | | | | | 03/03/2020 | + + +--------+ + + | POC Fingerstick INR | Point of | Routin | Elevated INR | Ordered: 03/03/2019 | | | Care | e | | | | | Testing | | | | + + +--------+ + + + + +--------+ + + | Name | Type | Priori | Associated Diagnoses | Order Schedule | | | | ty | | | + + +--------+ + + | * [facility] [place] | Outpatient | Routin | Rotator cuff | Ordered: 03/03/2019 | | Orthopedic Surgery - | Referral | e | syndrome of both | | | AMB Referral | | | shoulders Chronic | | | | | | left shoulder pain | | + + +--------+ + + documented as of this encounter Results XR Shoulder Left 2 + Vw (03/30/2019 10:37 AM PDT) + + | Specimen | + + | | + + + + + | Narrative | Performed At | + + + | XR SHOULDER LEFT 2 + VW 03/30/2019 10:37 AM HISTORY: left | [facility] | | shoulder pain. COMPARISON: None. FINDINGS: There are no acute | | | osseous findings. The AC joint demonstrates mild degenerative | | | changes. The glenohumeral joint there is mild degenerative changes. | | | Bone mineralization is normal. Visualized chest shows no acute | | | findings. Soft tissue structures are unremarkable. IMPRESSION - | | | No acute osseous findings. Mild degenerative changes of the | | | acromioclavicular and glenohumeral joints. Dictated and Signed by: | | | Eloy Mack MD Electronically signed: 03/30/2019 12:04 PM | | + + + + + | Procedure Note | + + | Jeanmarie, Rad Results In - 03/30/2019 12:07 PM PDT XR SHOULDER LEFT 2 + VW 03/30/2019 10:37 | | AMHISTORY: left shoulder pain.COMPARISON: None.FINDINGS:There are no acute osseous | | findings. The AC joint demonstrates mild degenerativechanges. The glenohumeral joint | | there is mild degenerative changes. Bonemineralization is normal. Visualized chest shows | | no acute findings. Soft tissuestructures are unremarkable. IMPRESSION -No acute osseous | | findings.Mild degenerative changes of the acromioclavicular and glenohumeral | | joints.Dictated and Signed by: Eloy Mack MD Electronically signed: 03/30/2019 12:04 | | PM | |changes. The glenohumeral joint there is mild degenerative changes. Bone | |mineralization is normal. Visualized chest shows no acute findings. Soft tissue | |structures are unremarkable. | | | |IMPRESSION - | |No acute osseous findings. | | | |Mild degenerative changes of the acromioclavicular and glenohumeral joints. | | | |Dictated and Signed by: Eloy Mack MD | | Electronically signed: 03/30/2019 12:04 PM | + + + +---------+ + [...]
--- OUTSIDE RECORDS SUMMARY | ~2019-10-18 | XMS | Encounter Summary ---
Demographics + + + | Address | [address] | | | [place] [address] | + + + | Home Phone | | + + + | Preferred Language | Unknown | + + + | Marital Status | | + + + | Yazdanism Affiliation | 1027 | + + + [...] Team Providers + +------+ + | Care Hand Almond Blancher Name | Role | Phone | + +------+ + | Jesus Mijares MD | PCP | | + +------+ + Encounter Details +--------+ + + + + | Date | Type | Department | Care Team | Description | +--------+ + + + + | 09/12/ | Orders Only | [facility] | GoelJanuary, | | | 2017 | | CARDIOLOGY MIKEL | [address] | | | | | [address] | [address] [place], | | | | | [place], [place] | [place] [address] | | | | | [address] | [phone] | | | | | [phone] | | | +--------+ + + + [...] | | | | | | [place] [address] | | | | | | [phone] | | | | | | | [...] + | BASIC METABOLIC | Routin | 09/12/2018 | | Results for this | | PANEL | e | 2:30 PM | | procedure are in the | | | | PST | | results section. | + +--------+ + + + documented in this encounter Results Basic Metabolic Panel (09/12/2018 2:30 PM PST) + +---------+ + + + | Component | Value | Ref Range | Performed | Pathologist | | | | | At | Signature | + +---------+ + + + | Glucose, | 126 (A) | 70 - 100 mg/dL | EXTERNAL | | | Fasting | | | LAB | | + +---------+ + + + | BUN | 22 | 6 - 23 mg/dL | EXTERNAL | | | | | | LAB | | + +---------+ + + + | Creatinine | 0.83 | 0.70 - 1.18 | EXTERNAL | | | | | mg/dL | LAB | | + +---------+ + + + | BUN/Creatin | 26.6 | 6.0 - 28.6 | EXTERNAL | | | ine Ratio | | | LAB | | + +---------+ + + + | Calcium | 9.2 | 8.5 - 10.3 | EXTERNAL | | | | | mg/dL | LAB | | + +---------+ + + + | Na | 140 | 132 - 143 | EXTERNAL | | | | | mmol/L | LAB | | + +---------+ + + + | K | 4.0 | 3.6 - 5.1 | EXTERNAL | | | | | mmol/L | LAB | | + +---------+ + + + | Cl | 97 | 95 - 112 mmol/L | EXTERNAL | | | | | | LAB | | + +---------+ + + + | CO2 | 33 (A) | 19 - 31 mmol/L | EXTERNAL | | | | | | LAB | | + +---------+ + + + | Anion Gap | 14.0 | 7 - 21 mmol/L | EXTERNAL | | | | | | LAB | | + +---------+ + + + | Estimated | 67 | mg/dL | EXTERNAL | | | [...]
--- OUTSIDE RECORDS SUMMARY | ~2019-10-18 | XMS | Encounter Summary ---
Demographics + + + | Address | [address] | | | [place] [address] | + + + | Home Phone | | + + + | Preferred Language | Unknown | + + + | Marital Status | | + + + | Mu-Ism Affiliation | 1027 | + + + | Race | Unknown | + + + | Ethnic Group | Unknown | + + + Author + + + | Author | [facility] | | | and [place] | + + + | Organization | [facility] | | | [...] Team Providers + +------+ + | Care Auto Parts Counter Person Name | Role | Phone | + +------+ + PCP | Unavailable | + +------+ + Encounter Details +--------+ + + + + | Date | Type | Department | Care Team | Description | +--------+ + + + + | 08/ | Hospital | [facility] | Unknown, | | | 1991 | Encounter | MED CTR XRAY [address] | MD Tita | | | | | [place] | | | | | | [place] [address] | (Fax) | | | | | [phone] | | | +--------+ + + + [...] | | | | | | [place] [address] | | | | | | | [...]
--- OUTSIDE RECORDS SUMMARY | ~2019-10-18 | XMS | Encounter Summary ---
Demographics + + + | Address | [address] | | | [place] [address] | + + + | Home Phone [...] Team Providers + +------+ + | Care Professor Of Spanish Name | Role | Phone | + +------+ + | Jesus Mijares MD | PCP | | + +------+ + Encounter Details +--------+ + + + + | Date | Type | Department | Care Team | Description | +--------+ + + + + | 10/18/ | Orders Only | [facility] | Rajendra Fowler, | | | 2015 | | CARDIOLOGY [place] | [address] | | | | | [address] | [place], | | | | | [facility] [place] | [place] [address] | | | | | [address] | [phone] | | | | | [phone] | | | +--------+ + + + [...] | 11/17/ | Office | Cardiology | Rajnedra Fowler, | | | 2019 | Visit | | MD [address] | | | | | | [place], | | | | | | [place] [address] | | | | | | [phone] | | | | | | | [...]
--- OUTSIDE RECORDS SUMMARY | ~2019-10-18 | XMS | Encounter Summary ---
Demographics + + + | Address | [address] | | | [place] [address] | + + + | Home Phone [...] Team Providers + +------+ + | Care Pca Name | Role | Phone | + [...] [address] | | | | | [place] | [address] | [address], | | | | | [address] | [place], [place] | [place] [address] | | | | | [place] | [address] | Phone: | | | | | ASPIR&/INJ | Phone: | [phone] | | | | | MAJOR | [phone] | Fax: | | | | | NAYE/MADI W/O | Fax: | [phone] | | | | | [place] | [phone] | | | | | | Shoulder [...] | shoulder (Primary | | | | [place], | [address], | Dx); Nontraumatic | | | | [place] [address] | [place] [address] | tear of right | | | | [phone] | [phone] | supraspinatus tendon | | | | [...] | | | | | | [place] [address] | | | | | | [phone] | | | | | | | [...]
--- OUTSIDE RECORDS SUMMARY | ~2019-10-18 | XMS | Encounter Summary ---
Demographics + + + | Address | [address] | | | [place] [address] | + + + | Home Phone [...] Team Providers + +------+ + | Care Piping Drafter Name | Role | Phone | + +------+ + PCP | Unavailable | + +------+ + Encounter Details +--------+ + + + + | Date | Type | Department | Care Team | Description | +--------+ + + + + | 04/09/ | Hospital | [facility] | Fadi Awad | | | 2011 | Encounter | MED CTR XRAY [address] | F, [address] | | | | | [address] [place] | [address] [place], [place] | | | | | [place] [address] | [address] | | | | | [phone] | [phone] | | | | | | [...] | | | | | | [place] [address] | | | | | | [phone] | | | | | | | [...] Performed At | + + + | [facility] Diagnostic Imaging Department | [facility] | | [address] [facility] | [facility] | | LUMBAR SPINE CLINICAL | DIAG [...] Transcribed Date/Time: 01/21/2012 15:06 | | | Global Security Architect: SALO <Electronically Signed by Jarad Renae | | | MD Ji> 01/22/12 0713 | | + + + + + | Procedure Note | + + | Jeanmarie, Rad Conversion - 11/20/2013 5:04 PM [facility] | | Diagnostic Imaging Department [address] [place] [address] | | LUMBAR SPINE CLINICAL HISTORY: BACK [...] 14:51 | |Transcribed Date/Time: 01/21/2012 15:06 | |Global Security Architect: | |<Electronically Signed by Jarad Workman MD> [...]
--- OUTSIDE RECORDS SUMMARY | ~2019-10-18 | XMS | Encounter Summary ---
Demographics + + + | Address | [address] | | | [place] [address] | + + + | Home Phone | | + + + | Preferred Language | Unknown | + + + | Marital Status | | + + + | Mormon Affiliation | 1027 | + + + | Race | Unknown | + + + | Ethnic Group | Unknown | + + + Author + + + | Author | [facility] | | | and [place] | + + + | Organization | [facility] | | [...] Team Providers + +------+ + | Care Drivers License Examiner Name | Role | Phone | + [...] + + | 05/01/ | Office | [facility] | Christiano, | 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 Yong Pena in [place], use of hydrocodone 3 x/day and flexeril, [...] has no apparent deficits with short or prison memory. She has appropriate fund of knowledge [...] PT (multiple sessions over the years) and primary care provider. Unfortunately she continue s to have significant [...] | | | | | | [place] [address] | | | | | | [phone] | | | | | | | [...]
--- OUTSIDE RECORDS SUMMARY | ~2019-10-18 | XMS | Encounter Summary ---
Demographics + + + | Address | [address] | | | [place] [address] | + + + | Home Phone | | + + + | Preferred Language | Unknown | + + + | Marital Status | | + + + | Scientology Affiliation | 1027 | + + + [...] Providers + +------+ + | Care Rn Labor Delivery Name | Role | Phone | + [...] | Acute pain | [place], | [address] | | | | | of right | Nilson Jensen MD | [place], | | | | | shoulder | [address] | [place] [address] | | | | | Procedures | [place] | Phone: | | | | | CT | [place], [place] | [phone] | | | | | Arthrogram | [address] | Fax: | | | | | Shoulder | Phone: | [phone] | | | | | Right | [phone] | | | | | | Called 1x | Fax: | | | | | | | [phone] | | +--------+--------+ + + + + Reason for Visit + + + | Reason | Comments | + + + | Results, Imaging | | + + + Encounter Details +--------+ + + + + | Date | Type | Department | Care Team | Description | +--------+ + + + + | 11/07/ | Telephone | [facility] | Christiano, | Results, Imaging | | 2017 | | PHYSIATRY [address] | [place]AMALIEL Saucedo [address] | | | | | [place], | [facility] [facility], | | | | | [place] [address] | [place] [address] | | | | | [phone] | [phone] | | | | | | | [...] | | | | | | [place] [address] | | | | | | [phone] | | | | | | | [...] + | Performing | Address | City/State[facility] | Phone Number | | Organization | | | | + +---------+ + + | [facility] | | | | + +---------+ + + [place] Shoulder Inj Right for MRI or CT (12/03/2017 11:16 AM [facility]) + + | Specimen | + + [...]
--- OUTSIDE RECORDS SUMMARY | ~2019-10-18 | XMS | Encounter Summary ---
Demographics + + + | Address | [address] | | | [place] [address] | + + + | Home Phone [...] Team Providers + +------+ + | Care Blood Collector Name | Role | Phone | + [...] Oziel [place] | | | | | [phone] | [place] [address] | | +--------+ + + + + [...] | | | | | | [place] [address] | | | | | | [phone] | | | | | | | [...]
--- OUTSIDE RECORDS SUMMARY | ~2019-10-18 | XMS | Encounter Summary ---
Demographics + + + | Address | [address] | | | [place] [address] | + + + | Home Phone [...] Team Providers + +------+ + | Care Car Worker Helper Name | Role | Phone | + [...] | | | [place], | [address] | | | | | Trochanteric | [place], | [place], | | | | | bursitis of | PA-C [address] | [place] | | | | | both hips | [address] | [address] | | | | | Procedures | [place] | Phone: | | | | | [place] | [address] | [phone] | | | | | Joint | Phone: | Fax: | | | | | Injection | [phone] | [phone] | | | | | Left | Fax: | | | | | | | [phone] | | +--------+--------+ + + + + Reason for Visit + + + | Reason | Comments | + + + | Back Pain | low back pain radiating into bilateral hips | + + + Encounter Details +--------+---------+ + + + | Date | Type | Department | Care Team | Description | +--------+---------+ + + + | 04/29/ | Office | [facility] | Christiano, | Lumbar radiculopathy | | 2017 | Visit | PHYSIATRY [address] | [address]AL[address] Saucedo [address] | (Primary Dx); | | | | [address] [place], | [facility], | Spinal stenosis of | | | | [place] [address] | [place] [address] | lumbar region - | | | | [phone] | [phone] | L3/L4, adjacent | | | | [...] of the procedure you must provide a driver guide to take you home. For all procedur [...] in [address] Yong Pena in [place], use of hydrocodone 3 x/day and [...] has no apparent deficits with short or fci memory. 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 Unfortunately she cont inues to have significant [...] | | | | | | [place] [address] | | | | | | [phone] | | | | | | | [...] At | + + ---+ | | [place] | | 04/29/2017 Bilateral Transforaminal Epidural Steroid Injections and | [facility] | | Bilateral Trochanteric Bursa Injections [...] + | [facility] | [address] | [place], [place] | [phone] | | [facility] | | [address] | | | - IMAGING | | [...] + | [address] | [address] | [place] | [phone] | | [facility] | | [address] | | | - IMAGING | | [...]
--- OUTSIDE RECORDS SUMMARY | ~2019-10-18 | XMS | Encounter Summary ---
Demographics + + + | Address | [address] | | | [place] [address] | + + + | Home Phone | | + + + | Preferred Language | Unknown | + + + | Marital Status | | + + + | Cheondoism Affiliation | 1027 | + + + [...] Team Providers + +------+ + | Care Deputy Director Of Public Works Name | Role | Phone | + +------+ + PCP | Unavailable | + +------+ + Encounter Details +--------+ + + + + | Date | Type | Department | Care Team | Description | +--------+ + + + + | 04/21/ | Hospital | [facility] | | | | 2001 | Encounter | MED CTR XRAY [address] | | | | | | [address] | | | | | | [place] [address] | | | | | | [phone] | | | +--------+ + + + [...] | | | | | | [place] [address] | | | | | | [phone] | | | | | | | [...]
--- OUTSIDE RECORDS SUMMARY | ~2019-10-18 | XMS | Encounter Summary ---
Demographics + + + | Address | [address] | | | [place] [address] | + + + | Home Phone | | + + + | Preferred Language | Unknown | + + + | Marital Status | | + + + | Shinto Affiliation | 1027 | + + + [...] Team Providers + +------+ + | Care Discharge Planner Name | Role | Phone | + [...] Thoracic or | [place], | [address] | | | | | lumbosacral | Nilson Jensen MD | [place], | | | | | neuritis or | [address] | [place] | | | | | | [place] | [address] | | | | | radiculitis, | [place], [place] | Phone: | | | | | unspecified | [address] | [phone] | | | | | Procedures | Phone: | Fax: | | | | | NE INJECT | [phone] | [phone] | | | | | ANES/STEROID | Fax: | | | | | | FORAMEN | [phone] | | | | | | LUMBAR/SACRA | | | | | | | L W IMG | | | | | | | GUIDE ,1 | | | | | | | LEVEL NE | | | | | | | TRIAMCINOLON | | | | | | | E ACET INJ | | | | | | | NOS, 10 MG | | | | | | | Bilateral | | | | | | | L4-L5 | | | | | | | TFESI-APPT | | | | | | | 2/26 | | | +--------+--------+ + + + + Encounter Details +--------+ + + + + | Date | Type | Department | Care Team | Description | +--------+ + + + + | 12/09/ | Hospital | [facility] | Nilson Chaudhry | Bilateral lumbar | | 2014 | Encounter | MED CTR XRAY [address] | TMD [address] | radiculopathy | | | | [place] | [facility] [place], [place] | (Primary Dx); | | | | [place] [address] | [address] | Thoracic or | | | | [phone] | | lumbosacral neuritis | | | | | [employer] | or radiculitis, | | | | | | unspecified | +--------+ + + + + Social [...] +---------+ + + | Blood Pressure | 170/75 | 12/09/2014 4:42 PM | | | | | PST | | + +---------+ + + | Pulse | 55 | 12/09/2014 4:42 PM | | | | | PST [...] + + + +---------+ + + | gabapentin | Take 1 pill at night | 120 | 0 | 08/09/20 | | | (NEURONTIN) 300 mg | x 4 days, then | capsule | | 14 | 5 | | capsule | increase to 2 pills | | | | | | | at night x 4 days, | | | | | | | then increase to 3 | | | | | | | pills at night | | | | | | | thereafter. If you | | | | | | | are tolerating well, | | | | | | | start morning dose: | | | | | | | 1 pill in AM, 3 | | | | | | | pills at night, | | | | | | | after 4 days | | | | | | | increase to 2 pills | | | | | | | in AM, 3 pills at | | | | | | | night x 4 days, then | | | | | | | 3 pills in AM and 3 | | | | | | | pills in PM. Goal | | | | | | | is to get to 300mg | | | | | | | BID. | | | | | + + [...] | | | | | | [place] [address] | | | | | | [phone] | | | | | | | [...] | [place] EPIDURAL STEROID | Routin | 12/09/2014 | Thoracic or | Results for this | | INJECTION LUMBAR | e | 4:26 PM | lumbosacral neuritis | procedure are in the | | TRANSFORAMINAL | | PST | or radiculitis, | results section. | | | | | unspecified | | + +--------+ + + + documented in this encounter Results [place] SRINIVAS Lumbar Transforaminal (12/09/2014 4:26 PM PST) + + | Specimen | + + | | + + + + + | Narrative | Performed At | + + + | 12/09/2014 Bilateral Transforaminal Epidural Steroid Injections | [facility] | | Diagnosis: Lumbar radiculopathy ICD-9 Code 724.4 Rebecca Lua | [facility] | | Jonathan presents to the fluoroscopy suite for fluoroscopically-guided | [facility] | | bilateral L4-L5 transforaminal epidural steroid [...] + + | Performing | Address | City/State/[facility] | Phone Number | | Organization | | | | + + + + + | [facility] | [address] | [place], [place] | [phone] | | [facility] | | [address] | | | - IMAGING | | | | + + + + + documented in this encounter Visit Diagnoses + + | Diagnosis | + + | Bilateral lumbar radiculopathy - Primary | + + | Thoracic or lumbosacral neuritis or radiculitis, unspecified | + + documented in this encounter Administered Medications + +--------+ +-------+------+------+ | Medication Order | MAR | Action | Dose | Rate | Site | | | Action | Date | | | | + +--------+ +-------+------+------+ | betamethasone (CELESTONE | Given | 12/09/19 | 12 mg | | | | SOLUSPAN) injection 12 mg 12 mg, | | 15 4:39 | | | | | Other, ONCE, Sharon 12/09/14 at | | PM PST | | | | | 1645, For 1 dose, Shake well. Not | | | | | | | for IV use., | | | | | | + +--------+ +-------+------+------+ +---+---+ | | | +---+---+ + +-------+ +-------+---+---+ | iohexol (OMNIPAQUE 300) 300 | Given | 12/09/19 | 4 mLs | | | | mg/mL injection 4 mL 4 mL, | | 15 4:36 | | | | | INTRATHECAL, ONCE, Sharon 12/09/14 at | | PM PST | | | | | 1645, For 1 dose | | | | | | + +-------+ +-------+---+---+ +---+---+ | | | +---+---+ + +-------+ +------+---+ + | lidocaine 1% injection 1 mL 1 | Given | 12/09/19 | 1 mL | | Other | | mL, Intradermal, ONCE, Sharon | | 15 4:32 | | | (Comment | | 12/09/14 at 1645, For 1 dose | | PM PST | | | ) | + +-------+ +------+---+ + +---+---+ | | | +---+---+ + +-------+ +------+---+---+ | sodium bicarbonate (NEUT) 4% | Given | 12/09/19 | 1 mL | | | | injection 1 mL 1 mL, | | 15 4:30 | | | | | Intravenous, ONCE, Sharon 12/09/14 at | | PM PST | | | | | 1645, For 1 dose, Use for | | | | | | | addition to other parenteral | | | | | | | solutions., | | | | | | + +-------+ +------+---+---+ +---+---+ | | | +---+---+ documented in this encounter"
--- OUTSIDE RECORDS SUMMARY | ~2019-10-18 | XMS | Encounter Summary ---
Demographics + + + | Address | [address] | | | [place] [address] | + + + | Home Phone | | + + + | Preferred Language | Unknown | + + + | Marital Status | | + + + | Jewish Affiliation | 1027 | + + + [...] Team Providers + +------+ + | Care Lime Kiln Tender Name | Role | Phone | + +------+ + PCP | Unavailable | + +------+ + Encounter Details +--------+ + + + + | Date | Type | Department | Care Team | Description | +--------+ + + + + | 09/07/ | Hospital | [facility] | Unknown, | | | 1991 | Encounter | MED CTR XRAY [address] | MD Tita | | | | | [address] | | | | | | [place] [address] | (Fax) | | | | | [phone] | | | +--------+ + + + [...] | | | | | | [place] [address] | | | | | | | [...]
--- OUTSIDE RECORDS SUMMARY | ~2019-10-18 | XMS | Encounter Summary ---
Demographics + + + | Address | [address] | | | [place] [address] | + + + | Home Phone [...] Team Providers + +------+ + | Care Analog Ic Design Engineer Name | Role | Phone | + +------+ + | Jesus Mijares MD | PCP | | + +------+ + Reason for Visit + + + | Reason | Comments | + + + | Back Pain | Low back pain that radiates down the left leg | + + + Encounter Details +--------+---------+ + + + | Date | Type | Department | Care Team | Description | +--------+---------+ + + + | 02/26/ | Office | [facility] | Nilson Chaudhry | Sacroiliitis (HCC) | | 2012 | Visit | [address]SIATRY [address] | MD Camila [address] | (Primary Dx); Lumbar | | | | [place], | [place], [place] | radiculopathy; | | | | [place] [address] | [address] | Bursitis, hip; | | | | [phone] | | DEGENERATIVE DISC | | | | | | DISEASE, LUMBAR | | | | | | SPINE; | | | | | | Spondylolisthesis; | | | | | | SCOLIOSIS , | | | | | | IDIOPATHIC; DIABETES | | | | | | WITH PERIPHERAL | | | | | | NEUROPATHY; Obesity; | | | | | | Facet arthritis of | | | | | | lumbar region | +--------+---------+ + + + Social History [...] + + + | Blood Pressure | 119/83 | 02/26/2013 11:14 AM | | | | | PDT | | + + + + + | Pulse | 108 | 02/26/2013 11:14 AM | | | | | PDT [...] Weight | 102.1 kg (225 lb) | 02/26/2013 11:14 AM | | | | | PDT | | + + + + + | Height | 167.6 cm (5' 6") | 02/26/2013 11:14 AM | | | | | PDT | | + + + + + | Body Mass Index | 36.32 | 02/26/2013 11:14 AM | | | | | PDT | | + + + + + documented in this encounter Progress Nilson Montanez MD - 02/26/2013 11:22 AM PDT Subjective: Patient ID: Rebecca Castillo is a 73 y.o. female. Chief Complaint Patient presents with Back Pain Low back pain that radiates down the left leg HPI The patient is being seen today in follow-up for complaints of low back pain. She also has bilateral, lateral hip pain and some pain that radiates down the left leg. The worst p ain is described as in the hips and sacroiliac region. The patient has been seen in the [facility] on several occasions for these issues. She has been diagnosed with DDD lumbar, facet arth ritis, lumbar radiculopathy, scoliosis, spondylolisthesis, trochanteric bursitis and sacroil iitis. She has benefited from interventional procedures. The patient's symptoms began wor sening again last Saturday when the "injections wore off". She describes her symptoms as achin g. Her symptoms have been worsening. Her symptoms worsen with walking and standing. Her symptoms improve with injections and medications. She also reports that sitting usually helps. She does report numbness in the feet bilaterally. She has been diagnosed with perip heral neuropathy. She reports generalized weakness in the legs and difficulty with ambulation. She denies bow el and bladder dysfunction. She also denies saddle anesthesia. Treatments for these complaints have included physical therapy, prior injections, the use o f Hydrocodone, Flexeril and Tylenol. Prior injections have included bilateral L4-L5 epidural steroid injections along with bilat eral trochanteric bursa injection which were performed by me on 12/03/2012. She indicates rc ost 3 months relief on the left side, shortly less on the right. Current Outpatient Prescriptions Medication Sig Dispense Refill digoxin (LANOXIN) 250 mcg tablet Take 250 mcg by mouth Daily. glimepiride (AMARYL) 4 mg tablet Take 4 mg by mouth 2 times daily. cyclobenzaprine (FLEXERIL) 10 mg tablet Take 10 mg by mouth 3 times daily. metFORMIN (GLUCOPHAGE) 850 mg tablet Take 850 [...] and updated as appropriate. Review of Systems Objective: Physical Exam Nursing note and vitals [...] has normal strength . A sensory deficit (numbness both feet) is present. No cranial nerve deficit. She displays no Babinski's sign on the right side. She displays no Babinski's sign on the left side. Reflex Scores: Patellar reflexes are 0 on the right side and 0 on the left side. Achilles reflexes are [...] groin pain. There was tenderness to palpation ove r the greater trochanters and sacral sulci bilaterally. The patient localized the majority of the pain to the sacroiliac region and greater trochanters bilaterally. Lumbar facet load ing was difficult to perform as she was unable to get her lumbar spine to neutral. Strength testing showed 5/5 strength throughout the lower extremities. The patient had difficulty w ith heel and toe walking due to strength and balance deficits, also due to pain. There was no redness, effusion, warmth or joint line tenderness in the knees or ankles. Assessment: 1. Sacroiliitis 2. Lumbar radiculopathy 3. Bursitis, hip 4. DEGENERATIVE DISC DISEASE, LUMBAR SPINE 5. Spondylolisthesis 6. Facet arthritis lumbar 7. SCOLIOSIS , IDIOPATHIC 8. DIABETES WITH PERIPHERAL NEUROPATHY 9. Obesity Plan: 1. The patient does have significant degenerative changes in the lumbar spine and has seen Dr. Awad in the past. Reportedly it was felt that she would not survive an extensive becca mbar surgery. 2. The patient has benefited from interventional procedures in the past. Unfortunately gaby guevara has multiple likely pain generators and it will be difficult to treat them all with interv entional procedures. It appears to me that the greatest pain currently is coming from the S I joints and greater trochanteric region. She is interested in receiving injections in thes e areas. I offered bilateral SI joint injections along with bilateral trochanteric bursa i njections which will be performed today. 3. The patient has multiple medications for pain. I did not make any changes in her medic ations today. documented in this encounter Plan of [...] | | | | | | [place] [address] | | | | | | [phone] | | | | | | | [...] or radiculitis, unspecified | + + | Bursitis, hip Enthesopathy of hip region | + + | DEGENERATIVE DISC DISEASE, LUMBAR SPINE Degeneration of lumbar or lumbosacral | | intervertebral disc | + + | Spondylolisthesis Congenital spondylolisthesis | + + | SCOLIOSIS , IDIOPATHIC Scoliosis (and kyphoscoliosis), idiopathic | + + | DIABETES WITH PERIPHERAL NEUROPATHY Type II or unspecified type diabetes mellitus | | with neurological manifestations, not stated as uncontrolled | + + | Obesity Obesity, unspecified | + + | Facet arthritis of lumbar region Lumbosacral spondylosis without myelopathy | + + documented in this encounter
--- OUTSIDE RECORDS SUMMARY | ~2019-10-18 | XMS | Encounter Summary ---
Demographics + + + | Address | [address] | | | [place] [address] | + + + | Home Phone [...] Providers + +------+ + | Care Health Care Administrator Name | Role | Phone | + [...] | | | | | Lumbar | Bhupindererenberg, | [address] | | | | | radiculopath | Nilson Jensen MD | [place], | | | | | y | [address] | [place] | | | | | Procedures | [place] | [address] | | | | | AL INJECT | [place], [place] | Phone: | | | | | ANES/STEROID | [id number] | [phone] | | | | | FORAMEN | Phone: | Fax: | | | | | LUMBAR/SACRA | [phone] | [phone] | | | | | L W IMG | Fax: | | | | | | GUIDE ,1 | [phone] | | | | | | LEVEL [facility] AL | | | | | | | | | | | | | | TRIAMCINOLON | | | | | | | E ACET INJ | | | | | | | NOS APPT | | | | | | | TODAY- Bilat | | | | | | | L4-5 TFESI | | | +--------+--------+ + + + + Encounter Details +--------+ + + + + | Date | Type | Department | Care Team | Description | +--------+ + + + + | 12/06/ | Hospital | [facility] | [place], | Spinal stenosis of | | 2016 | Encounter | MED [facility] XRAY [address] | GAMALIEL Saucedo [address] | lumbar region - | | | | [address] | [facility], | L3/L4, adjacent | | | | [place] [address] | [place] [address] | segment disease; | | | | [phone] | [phone] | Lumbar | | | | | | radiculopathy; | | | | | [facility] | DEGENERATIVE DISC | | | | | | DISEASE, LUMBAR | | | | | | SPINE; Chronic back | | | | | | pain | +--------+ + + + + Social [...] +---------+ + + | Blood Pressure | 137/76 | 12/06/2015 2:57 PM | | | | | PST | | + +---------+ + + | Pulse | 123 | 12/06/2015 2:02 PM | | | | | PST [...] | | | | | | [place] [id number] | | | | | | [phone] | | | | | | | [...] | [place] EPIDURAL STEROID | Routin | 12/06/2015 | Spinal stenosis of | Results for this | | INJECTION LUMBAR | e | 2:50 PM | lumbar region - | procedure are in the | | TRANSFORAMINAL | | PST | L3/L4, adjacent | results section. | | | | | segment disease | | | | | | Lumbar radiculopathy | | | | | | DEGENERATIVE DISC | | | | | | DISEASE, LUMBAR | | | | | | SPINE Chronic back | | | | | | pain | | + +--------+ + + + documented in this encounter Results FL SRINIVAS Lumbar Transforaminal (12/06/2015 2:50 PM PST) + + | Specimen | + + | | + + + + + | Narrative | Performed At | + + + | 12/06/2015 Bilateral Transforaminal Epidural Steroid Injections | [facility] | | Diagnosis: Lumbar radiculopathy ICD-10 Code [...] + + | Performing | Address | City/State[facility] | Phone Number | | Organization | | | | + + + + + | [facility] | [address] | [place] | [phone] | | [facility] | | [address] | | | - IMAGING | | [...] back pain Backache, unspecified | + + documented in this encounter Administered Medications + +--------+ +-------+------+------+ | Medication Order | MAR | Action | Dose | Rate | Site | | | Action | Date | | | | + +--------+ +-------+------+------+ | betamethasone (CELESTONE | Given | 12/06/19 | 12 mg | | | | SOLUSPAN) injection 12 mg 12 mg, | | 16 2:57 | | | | | Other, EVERY 24 HOURS INTERVAL, | | PM PST | | | | | First dose on Sat12/06/15 at | | | | | | | 1500, For 2 doses, Shake well. | | | | | | | Not for IV use., | | | | | | + +--------+ +-------+------+------+ +---+---+ | | | +---+---+ + +-------+ +-------+---+---+ | iohexol (OMNIPAQUE 300) 300 | Given | 12/06/19 | 4 mLs | | | | mg/mL injection 4 mL 4 mL, | | 16 2:55 | | | | | Other, ONCE, 12/06/15 at 1500, | | PM PST | | | | | For 1 dose | | | | | | + +-------+ +-------+---+---+ +---+---+ | | | +---+---+ + +-------+ +-------+---+---+ | lidocaine (PF) 1% injection 2 | Given | 12/06/19 | 2 mLs | | | | mL 2 mL, Other, ONCE, Tue | | 16 2:56 | | | | | 12/06/15 at 1500, For 1 dose | | PM PST | | | | + +-------+ +-------+---+---+ +---+---+ | | | +---+---+ + +-------+ +--------+---+---+ | lidocaine buffered 1% injection | Given | 12/06/19 | 10 mLs | | | | 10 mL 10 mL, Other, ONCE, Tue | | 16 2:51 | | | | | 12/06/15 at 1500, For 1 dose | | PM PST | | | | + +-------+ +--------+---+---+ +---+---+ | | | +---+---+ documented in this encounter"
--- OUTSIDE RECORDS SUMMARY | ~2019-10-18 | XMS | Encounter Summary ---
Demographics + + + | Address | [address] | | | [place] [address] | + + + | Home Phone [...] Team Providers + +------+ + | Care Environmental Technical Officer Name | Role | Phone | + +------+ + | Jesus Eagle MD | PCP | | + +------+ + Encounter Details +--------+ + + + + | Date | Type | Department | Care Team | Description | +--------+ + + + + | 03/28/ | Hospital | [facility] | Deidra, | Acute chest pain; | | 2015 - | Encounter | [facility] | MD [address] | Secondary | | | | CLINICAL DECISION | [address] | hypertension, | | 03/29/ | | [address] | [place] [address] | unspecified; Digoxin | | 2014 | | [place], [place] | [phone] | toxicity, | | | | [address] | | undetermined intent, | | | | [phone] | | subsequent | | | | | | encounter; Chest | | | | | | pain, unspecified | +--------+ + + + + [...] documented as of this encounter Discharge Summaries Anne-Marie Bello MD - 03/29/2015 4:43 PM PDT Discharge Summaries by Anne-Marie Bello MD at 03/29/15 1184 Author: Anne-Marie Bello MD Service: (none) Author Type: Physician Filed: 03/30/15 1422 Date of Service: 03/29/151642 Status: Signed Environmental Health Specialist: Anne-Marie Bello MD (Physician) Related Notes: Original Note by Anne-Marie Bello MD (Physician) filed at 03/29/15 1650 [facility] Service: Hospitalist Physician Discharge Summary Patient ID: Shavonne Esteban 1940 75 y.o. Admit date: 03/28/2015 Discharge date: 03/29/2015 Admitting Physician: Yosef Gay MD Discharge Physician: Anne-Marie Bello MD Consultants: Treatment Team: Admitting Provider: Yosef Gay MD Primary Discharge Diagnoses: Chest pain, unspecified Secondary Discharge Diagnoses: Bradycardia DM (diabetes mellitus) (HCC) Unspecified essential hypertension Other and unspecified hyperlipidemia HPI and Hospital Course: 75-year-old female with history of diabetes, atrial fibrillation, hypertension, hyperlipide katelin, was transferred from [facility] with chest pain. The patient has chest pressu re and her symptoms have been going on for about 5 days. Heart rate is in the 50s and 60s an d she was seen at [facility]. Digoxin level was 3.7 and the patient wa s transferred to [facility]. Her digoxin level was low at [facility] and she had serial cardiac enzymes, which were negative. The patient was in sinus bradycardia and she had elevated blood pressure. Her acebutolol was held and then the patient underwent nuclear stress test, which showed no signs of ischemia. She also had a 2- D echocardiogram, the results of which are pending. The patient also had elevated TSH. I hav e discussed this with the patient. The patient will require outpatient followup. The patient is to follow up echocardiogram results as an outpatient. I have discussed with the patient that she needs outpatient followup with cardiology. When I was discussing this with her, she was noted to be tachycardiac with heart rate less than 120 and she complained of palpitatio ns, so she will be restarted on the acebutolol. Blood sugars have been well-controlled. The patient also had a lipid panel done, which showed normal cholesterol. HDL was low at 27. The patient also had accelerated hypertension, which has resolved. At present, she is hemodynam ically stable and will be discharged home with outpatient followup. The plan has been discus sed in detail with the patient. All questions were answered. All data was reviewed with her. Past Medical History: Past Medical History Diagnosis Date Atrial fibrillation (HCC) Other chronic pain Diabetes mellitus, type 2 (HCC) Hyperlipidemia Hypertension Old myocardial infarction Past Surgical History Procedure Laterality Date Tonsillectomy Cholecystectomy Tumor excision stomach Hiatal hernia repair Discharged Condition: Stable for discharge as stated above. Significant Diagnostic Studies: Nm Myocardial Perfusion Spect (stress And Rest) 03/29/2015 1. Normal Myocardial perfusion no evidence of ischemia or infarction. 2. Left ventricular ejection fraction is calculated at 63%. Discharge Vitals: Filed Vitals: 03/29/15 0701 03/29/15 1118 03/29/15 1529 03/29/15 1634 BP: 161/70 191/81 200/86 154/70 Pulse: 52 55 59 113 Temp: 98.2 F (36.8 C) 98.3 F (36.8 C) 97.9 F (36.6 C) TempSrc: Oral Oral Oral Resp: 18 16 16 Height: Weight: SpO2: 99% 95% 100% Discharge Exam: General: Well nourished. Psych: Alert and oriented x 3. Calm, cooperative. Cardiovascular: Regular rate and rhythm, no murmurs, no thrills. Normal PMI. Respiratory: Clear to auscultation, no wheezing or crackles, breathing non labored. Gastrointestinal: Soft, non-tender, non-distended, positive bowel sounds. No HSM. Musculoskeletal: Bilateral 1+ pedal edema present. No joint swelling. Skin: Warm and dry, no rashes. Neck: No JVD, Trachea midline. Neurological: Non focal. Motor grossly intact. LABS: Recent Labs Lab 03/29/15 0550 03/28/15 2204 WBC 8.18 8.90 RBC 3.90 4.12 HGB 12.2 13.1 HCT 36.7 38.6 MCV 94.1 93.7 MCH 31.3 31.9 MCHC 33.3 34.0 RDW 41.1 41.6 PLT 276 264 MPV 8.1 7.5 DIFFTYPE AUTOMATED AUTOMATED Recent Labs Lab 03/29/15 0550 03/28/15 2204 NA 140 140 K 3.7 3.8 CL 103 103 CO2 32 30 BUN 15 16 CREATININE 0.99 1.10* PROT 6.0* | 6.0* 6.9 BILITOT 1.0 | 1.0 0.9 ALT 11 | 9* 16 AST 13 | 16 16 GLUF 123* 197* Recent Labs Lab 03/29/15 0550 03/29/15 0156 03/28/15 2204 CKTOTAL 48 54 -- TROPONINI <0.020 <0.020 <0.020 CKMBINDEX 1.0 UNABLE TO CALCULATE -- Recent Labs Lab 03/29/15 0550 PHOS 3.4 Recent Labs Lab 03/29/15 0550 MG 1.7 Invalid input(s): ABG Disposition: Home Follow up: Emory Eagle MD [address] [place] [address] [address] [facility] [id number] Schedule an appointment as soon as possible for a visit in 3 days Follow up echocardiogram results outpatient follow-up with cardiology, [facility] [place] [address] [facility] [address] [facility] [address] Schedule an appointment as soon as possible for a visit in 1 week Medication List CHANGE how you take these medications acebutolol 200 MG capsule QTY: 60 capsule Refills: 0 Commonly known as: SECTRAL Take 1 capsule by mouth 2 (two) times daily. What changed: - how much to take - when to take this CONTINUE taking these medications amitriptyline 25 MG tablet Refills: 0 Commonly known as: ELAVIL cyclobenzaprine 10 MG tablet Refills: 0 Commonly known as: FLEXERIL ezetimibe-simvastatin 10-40 MG per tablet Refills: 0 Commonly known as: VYTORIN glimepiride 4 MG tablet Refills: 0 Commonly known as: AMARYL glipiZIDE 5 MG 24 hr tablet Refills: 0 Commonly known as: GLUCOTROL hydrochlorothiazide 12.5 MG tablet Refills: 0 Commonly known as: HYDRODIURIL * HYDROcodone-acetaminophen 7.5-325 MG per tablet Refills: 0 Commonly known as: NORCO * HYDROcodone-acetaminophen 10-325 MG per tablet Refills: 0 Commonly known as: NORCO lisdexamfetamine 40 MG capsule Refills: 0 Commonly known as: VYVANSE lisinopril 40 MG tablet Refills: 0 Commonly known as: ZESTRIL metFORMIN 500 MG tablet Refills: 0 Commonly known as: GLUCOPHAGE * Notice: This list has 2 medication(s) that are the same as other medications prescribed for you. Read the directions carefully, and ask your doctor or other care provider to revie w them with you. STOP taking these medications digoxin 0.125 MG tablet Commonly known as: LANOXIN digoxin 0.25 MG tablet Commonly known as: LANOXIN Where to Get Your Medications Information on where to get these meds is not yet available. Ask your nurse or doctor. - acebutolol 200 MG capsule Anne-Marie Bello MD 03/29/2015 4:43 PM Discharge took minutes, to include final examination, discussion of admission, and prepar ation of prescriptions, instructions for ongoing care, follow up and dictation of summary. This entry has been created using [employer] Speech Recognition software and [employer]. The entry has been reviewed and there may still exist sound alike word errors. documented in th is encounter Medications at Time of Discharge + [...] Progress Notes Conversion Transaction, Provider Unknown - 03/29/2015 5:17 PM PDTFormatting of this note m ight be different from the original. Nurse Progress Note by Kayley Mccarthy RN at 03/29/151716 Author: Kayley Mccarthy RN Service: (none) Author Type: Registered Nurse Filed: 03/29/151717 Date of Service: 03/29/151716 Status: Signed Environmental Health Specialist: Kayley Mccarthy RN (Registered Nurse) Pt discharge instructions given. Opportunity given to ask questions, no questions at this t eddie. Pt denies pain. Pt discharge home/self care; spouse to transport home. Kayley Mccarthy RN onver [place]rett Transaction, Provider Unknown - 03/29/2015 12:57 PM PDT Case Management by Jhoana Campbell RN at 03/29/15 1257 Author: Jhoana Campbell RN Service: (none) Author Type: Registered Nurse Filed: 03/29/15 1259 Date of Service: 03/29/15 1257 Status: Signed Environmental Health Specialist: Jhoana Campbell RN (Registered Nurse) 03/29/15 1251 Discharge Planning Evaluation Admitting Diagnosis Chest Pain Readmission No Living Arrangements Spouse/significant other;Children Support Systems Spouse/significant other;Family members Type of Residence Private residence House type House-1 story Steps to enter 1 Bathrooms on 1st Floor 1-Full Independent with ADL's Yes Independent with Mobility Other (comment) (uses cane in home, has walker and Rascal motorized scooter when out in community.) Home Care Services No Caregiver after Discharge No Mental Status Oriented Power of Stitch Burnisher No;Other (comment) (provided POA and AD forms to patient) Anticipated Discharge Plan Post Acute Care Needs None at this time Plan communicated to patient/family Yes Resources Financial concerns No Transportation issues No Patient/Family concerns No Prescription Plan Yes Name of Pharmacy [place] [place] [facility] Previous home health equipment Yes Equipment Vendor see above Vascular access device No Ostomy/Drains/Appliances No Anticipated Disposition Facility Type Home Medicare Important Message (TANIA) Not applicable Met with: Pt and discussed discharge planning, Pt is a 75 y.o., female who lives with her amalia toddband and children in a private residence in [facility]. At this time she denies any tatiana ncial, safety, DME, support, or transportation needs. Patient's PCP is: EMORY EAGLE Patient's insurance: Medicare, [employer] Care Coverage concerns: no Medication coverage/concerns: no [facility] Bedside Delivery: no Community resources utilized / needed: no Assistance in transportation: no Identification of any specific education / training: no Barriers to Discharge / Alternative housing needed: no Anticipated DCP: home with providing transportation Jhoana Batool Campbell onver [place] Transaction, Provider Unknown - 03/29/2015 2:19 AM PDT Progress Notes by Dora Dotson RPH at 03/29/15218 Author: Dora Dotson RPH Service: (none) Author Type: Pharmacist Filed: 03/29/15218 Date of Service: 03/29/15218 Status: Signed Environmental Health Specialist: Dora Dotson RPH (Pharmacist) Clinical Pharmacy Note: Renal Monitoring Shavonne Esteban 75 y.o. female Height: 162.6 cm Weight: 95.4 kg CREATININE: 1.1 mg/dL ABNORMAL (03/28/152203) Estimated creatinine clearance - 51.1 mL/min Pharmacy dosing for renal function per Dr. Leslie. Currently there are no medications needing to be adjusted. Pharmacy will continue to monito r for changes in medication orders and in renal function and adjust accordingly per protocol . Dora Dotson PharmD 03/29/2015 2:19 AM Skye reyes in this encounter Plan of Treatment +--------+ + + + + | Date | Type | Specialty | Care Team | Description | +--------+ + + + + | 11/17/ | Office | Cardiology | Jonathan Fowler, | | | 2019 | Visit | | MD [address] | | | | | | [place], | | | | | | [place] [address] | | | | | | [phone] | | | | | | | [...] | + +--------+ + + + | POC GLUCOSE | Routin | 03/29/2015 | | Results for this | | | e | 4:18 PM | | procedure are in the | | | | PDT | | results section. | + +--------+ + + + | NM MYOCARDIAL | Routin | 03/29/2015 | | Results for this | | PERFUSION MULT SPECT | e | 3:31 PM | | procedure are in the | | | | PDT | | results section. | + +--------+ + + + | POC GLUCOSE | Routin | 03/29/2015 | | Results for this | | | e | 11:16 AM | | procedure are in the | | | | PDT | | results section. | + +--------+ + + + | POC GLUCOSE | Routin | 03/29/2015 | | Results for this | | | e | 9:37 AM | | procedure are in the | | | | PDT | | results section. | + +--------+ + + + | ECHO COMPLETE | Routin | 03/29/2015 | | Results for this | | | e | 8:10 AM | | procedure are in the | | | | PDT | | results section. | + +--------+ + + + | POC GLUCOSE | Routin | 03/29/2015 | | Results for this | | | e | 6:18 AM | | procedure are in the | | | | PDT | | results section. | + +--------+ + + + | EXTERNAL LAB: CBC | Routin | 03/29/2015 | | Results for this | | | e | 5:50 AM | | procedure are in the | | | | PDT | | results section. | + +--------+ + + + | LIPID PANEL | Routin | 03/29/2015 | | Results for this | | | e | 5:50 AM | | procedure are in the | | | | PDT | | results section. | + +--------+ + + + | TROPONIN I | Routin | 03/29/2015 | | Results for this | | | e | 5:50 AM | | procedure are in the | | | | PDT | | results section. | + +--------+ + + + | CK-MB | Routin | 03/29/2015 | | Results for this | | | e | 5:50 AM | | procedure are in the | | | | PDT | | results section. | + +--------+ + + + | TSH | Routin | 03/29/2015 | | Results for this | | | e | 5:50 AM | | procedure are in the | | | | PDT | | results section. | + +--------+ + + + | PHOSPHORUS | Routin | 03/29/2015 | | Results for this | | | e | 5:50 AM | | procedure are in the | | | | PDT | | results section. | + +--------+ + + + | MAGNESIUM | Routin | 03/29/2015 | | Results for this | | | e | 5:50 AM | | procedure are in the | | | | PDT | | results section. | + +--------+ + + + | HEMOGLOBIN A1C | Routin | 03/29/2015 | | Results for this | | | e | 5:50 AM | | procedure are in the | | | | PDT | | results section. | + +--------+ + + + | CK TOTAL | Routin | 03/29/2015 | | Results for this | | | e | 5:50 AM | | procedure are in the | | | | PDT | | results section. | + +--------+ + + + | HEPATIC FUNCTION | Routin | 03/29/2015 | | Results for this | | PANEL | e | 5:50 AM | | procedure are in the | | | | PDT | | results section. | + +--------+ + + + | COMPREHENSIVE | Routin | 03/29/2015 | | Results for this | | METABOLIC PANEL | e | 5:50 AM | | procedure are in the | | | | PDT | | results section. | + +--------+ + + + | ECG 12 LEAD | Routin | 03/29/2015 | | Results for this | | | e | 5:09 AM | | procedure are in the | | | | PDT | | results section. | + +--------+ + + + | TROPONIN I | Routin | 03/29/2015 | | Results for this | | | e | 1:56 AM | | procedure are in the | | | | PDT | | results section. | + +--------+ + + + | CK-MB | Routin | 03/29/2015 | | Results for this | | | e | 1:56 AM | | procedure are in the | | | | PDT | | results section. | + +--------+ + + + | CK TOTAL | Routin | 03/29/2015 | | Results for this | | | e | 1:56 AM | | procedure are in the | | | | PDT | | results section. | + +--------+ + + + | POC GLUCOSE | Routin | 03/29/2015 | | Results for this | | | e | 1:29 AM | | procedure are in the | | | | PDT | | results section. | + +--------+ + + + | EXTERNAL LAB: CBC | Routin | 03/28/2015 | | Results for this | | | e | 10:04 PM | | procedure are in the | | | | PDT | | results section. | + +--------+ + + + | TROPONIN I | Routin | 03/28/2015 | | Results for this | | | e | 10:04 PM | | procedure are in the | | | | PDT | | results section. | + +--------+ + + + | DIGOXIN LEVEL | Routin | 03/28/2015 | | Results for this | | | e | 10:04 PM | | procedure are in the | | | | PDT | | results section. | + +--------+ + + + | COMPREHENSIVE | Routin | 03/28/2015 | | Results for this | | METABOLIC PANEL | e | 10:04 PM | | procedure are in the | | | | PDT | | results section. | + +--------+ + + + | ECG 12 LEAD | Routin | 03/28/2015 | | Results for this | | | e | 9:51 PM | | procedure are in the | | | | PDT | | results section. | + +--------+ + + + documented in this encounter Results POC Glucose (03/29/2015 4:18 PM PDT) + + + + + + | Component | Value | Ref Range | Performed | Pathologist | | | | | At | Signature | + + + + + + | Glucose, | 173 (H)Comment: Testing | 65 - 99 mg/dL | EXTERNAL | | | Fingerstick | performed at [facility];[address] | | LAB | | | [address];[place], [place] | | | | | | [address] | | | | + + + + + + + + | Specimen | + + | | + + + +---------+ + + | Performing | Address | City/State/Zipcode | Phone Number | | Organization | | | | + +---------+ + + | EXTERNAL LAB | | | | + +---------+ + + NM Myocardial Perfusion Mult SPECT (03/29/2015 3:31 PM PDT) + + | Specimen | + + | | + + + + + | Impressions | Performed At | + + + | 1. Normal Myocardial perfusion no evidence of ischemia or | | | infarction. 2. Left ventricular ejection fraction is calculated at | | | 63%. | | | 3:41 PM | | + + + + + + | Narrative | Performed At | + + + | HISTORY: 75-year-old hypertensive diabetic female with | | | hypercholesterolemia presents with a episode of chest pain shortness | | | of breath and abnormal EKG. TECHNIQUE: A same day, single | | | -isotope protocol was used. Resting protocol: The patient was | | | injected intravenously with 11 mCi of technetium 99M Myoview. Gated | | | SPECT images were acquired in the supine. The patient | | | pharmacologically stressed using a regadenoson protocol. The patient | | | received 0.4 mg of regadenoson intravenously. Stress protocol: | | | The patient was injected intravenously with 41.4 mCi of technetium 99M | | | Myoview. Gated SPECT images were acquired in the prone and supine | | | positions. Resting heart rate perico from 54 beats/min to 60 | | | beats/min which was 40% of the maximum age-predicted heart rate. | | | Chest pain: none Arrhythmias: none ST segment changes: none | | | COMPARISON: None. FINDINGS: All segments of the ventricular | | | myocardium demonstrate normal perfusion. Wall motion is normal in | | | all segments. The following functional data was obtained: | | | End-diastolic volume: 120 mL End-systolic volume: 45 mL Ejection | | | fraction: 63% | | + + + + + | Procedure Note | + + | Roberto Murry Conversion - 05/29/2019 9:09 AM PDT HISTORY:75-year-old hypertensive | | diabetic female with hypercholesterolemia presents with a episode of chest pain | | shortness of breath and abnormal EKG. TECHNIQUE:A same day, single -isotope protocol was | | used.Resting protocol:The patient was injected intravenously with 11 mCi of technetium | | 99M Myoview. Gated SPECT images were acquired in the supine. The patient | | pharmacologically stressed using a regadenoson protocol. The patient received 0.4 mg of | | regadenoson intravenously. Stress protocol:The patient was injected intravenously with | | 41.4 mCi of technetium 99M Myoview. Gated SPECT images were acquired in the prone and | | supine positions. Resting heart rate perico from 54 beats/min to 60 beats/min which was | | 40% of the maximum age-predicted heart rate.Chest pain: noneArrhythmias: noneST segment | | changes: none COMPARISON:None. FINDINGS:All segments of the ventricular myocardium | | demonstrate normal perfusion. Wall motion is normal in all segments. The following | | functional data was obtained:End-diastolic volume: 120 mLEnd-systolic volume: 45 | | mLEjection fraction: 63% IMPRESSION: 1. Normal Myocardial perfusion no evidence of | | ischemia or infarction.2. Left ventricular ejection fraction is calculated at 63%. | | | |ST segment changes: none | | | |COMPARISON: | |None. | | | |FINDINGS: | |All segments of the ventricular myocardium demonstrate normal perfusion. Wall motion is normal in all segments. | | | |The following functional data was obtained: | |End-diastolic volume: 120 mL | |End-systolic volume: 45 mL | |Ejection fraction: 63% | | | |IMPRESSION: | |1. Normal Myocardial perfusion no evidence of ischemia or infarction. | |2. Left ventricular ejection fraction is calculated at 63%. | | | | | + + POC Glucose (03/29/2015 11:16 AM PDT) + + + + + + | Component | Value | Ref Range | Performed | Pathologist | | | | | At | Signature | + + + + + + | Glucose, | 116 (H)Comment: Testing | 65 - 99 mg/dL | EXTERNAL | | | Fingerstick | performed at [facility];[address] | | LAB | | | [address];[place], [place] | | | | | | [address] | | | | + + + + + + + + | Specimen | + + | | + + + +---------+ + + | Performing | Address | City/State/Zipcode | Phone Number | | Organization | | | | + +---------+ + + | EXTERNAL LAB | | | | + +---------+ + + POC Glucose (03/29/2015 9:37 AM PDT) + + + + + + | Component | Value | Ref Range | Performed | Pathologist | | | | | At | Signature | + + + + + + | Glucose, | 113 (H)Comment: Testing | 65 - 99 mg/dL | EXTERNAL | | | Fingerstick | performed at [facility];[address] | | LAB | | | | [address];[place] | | | | | | [address] | | | | + + + + + + + + | Specimen | + + | | + + + +---------+ + + | Performing | Address | City/State/Zipcode | Phone Number | | Organization | | | | + +---------+ + + | EXTERNAL LAB | | | | + +---------+ + + ECHO Complete (03/29/2015 8:10 AM PDT) + + | Specimen | + + | | + + + + + | Impressions | Performed At | + + + | 1. Overall left ventricular systolic function is normal with, an EF | | | between 65 - 70 %. 2. There is mild concentric left ventricular | | | hypertrophy. 3. Restrictive LV diastolic filling pattern, consistent | | | with elevated LA pressure and severe dysfunction (grade III). 4. The | | | right ventricle is moderately enlarged measuring between 3.8 - 4.1 cm, | | | but has normal systolic function. 5. The left atrium is mildly | | | dilated. 6. The right atrium is moderately enlarged. 7. | | | Oqqz-ai-ivdqpvzd mitral regurgitation is present. 8. Moderate | | | tricuspid regurgitation present. 9. There is borderline pulmonary | | | hypertension. The right ventricular systolic pressure (pulmonary | | | artery systolic pressure), as measured by Doppler, is 36.8 mm Hg. | | + + + + + + | Narrative | Performed At | + + + | Patient Name: SHAVONNE ESTEBAN Date of : 1940 | | | Performing Physician: JONATHAN FOWLER MD | | | | | | INDICATIONS Shortness of breath, chest pain | | | CONCLUSIONS 1. Overall left ventricular systolic | | | function is normal with, an EF between 65 - 70 %. 2. There is mild | | | concentric left ventricular hypertrophy. 3. Restrictive LV diastolic | | | filling pattern, consistent with elevated LA pressure and severe | | | dysfunction (grade III). 4. The right ventricle is moderately | | | enlarged measuring between 3.8 - 4.1 cm, but has normal systolic | | | function. 5. The left atrium is mildly dilated. 6. The right atrium | | | is moderately enlarged. 7. Pfui-bk-hvemxrhj mitral regurgitation is | | | present. 8. Moderate tricuspid regurgitation present. 9. There is | | | borderline pulmonary hypertension. The right ventricular systolic | | | pressure (pulmonary artery systolic pressure), as measured by Doppler, | | | is 36.8 mm Hg. FINDINGS -------- ECG rhythm: Resting | | | bradycardia (HR<60bpm). Study: A 2-dimensional transthoracic | | | echocardiogram with m-mode, spectral and color flow Doppler was | | | perfomed. Study: This was a technically adequate study. Left | | | Ventricle: Overall left ventricular systolic function is normal with, | | | an EF between 65 - 70 %. Left Ventricle: The left ventricle cavity | | | size is normal. Left Ventricle: There is mild concentric left | | | ventricular hypertrophy. Left Ventricle: Restrictive LV diastolic | | | filling pattern, consistent with elevated LA pressure and severe | | | dysfunction (grade III). Right Ventricle: The right ventricle is | | | moderately enlarged measuring between 3.8 - 4.1 cm. Right Ventricle: | | | The right ventricular systolic function is normal. Left Atrium: The | | | left atrium is mildly dilated. Right Atrium: The right atrium is | | | moderately enlarged. Aortic Valve: The aortic valve is trileaflet and | | | appears structurally normal. Aortic Valve: Trace amount of aortic | | | regurgitation. Mitral Valve: Normal appearing mitral valve. Mitral | | | Valve: Yjow-bo-cjtjrihm mitral regurgitation is present. Mitral | | | Valve: Mild thickening of the anterior mitral valve leaflet. | | | Tricuspid Valve: The tricuspid valve appears structurally normal. | | | Tricuspid Valve: Moderate tricuspid regurgitation present. Tricuspid | | | Valve: There is borderline pulmonary hypertension. Tricuspid Valve: | | | The right ventricular systolic pressure (pulmonary artery systolic | | | pressure), as measured by Doppler, is 36.8 mm Hg. Pulmonic Valve: The | | | pulmonic valve was not well visualized. Pulmonic Valve: | | | Mild-moderate pulmonic regurgitation. Pericardium: There is a trivial | | | pericardial effusion present. IVC/Hepatic Veins: The inferior vena | | | cava is normal in size and collapses > 50 % with sniff, indicating | | | normal central venous pressures. Mass: No mass visualized Thrombus: | | | No clot visualized Thrombus: No vegetation visualized. Septum: No | | | ASD observed. Septum: No VSD observed. MEASUREMENTS | | | LA Major: 6.03 cm EDV(Teich): 101.95 ml IVSd: | | | 1.22 cm LVIDd: 4.69 cm LVPWd: 1.19 cm LVOT Diam: 2.21 | | | cm %FS: 35.32 % EF(Teich): 64.69 % ESV(Teich): 36.00 ml | | | IVSs: 1.77 cm LVIDs: 3.03 cm LVPWs: 2.07 cm SV(Teich): | | | 65.95 ml RA Major: 6.21 cm RVIDd: 4.08 cm LVEF MOD A2C: | | | 65.87 % SV MOD A2C: 49.06 ml LVEF MOD A4C: 71.79 % SV MOD | | | A4C: 62.40 ml EF Biplane: 69.77 % LVEDV MOD BP: 82.37 ml | | | LVESV MOD BP: 24.89 ml LVEDV MOD A2C: 74.47 ml LVLd A2C: | | | 7.96 cm LVEDV MOD A4C: 86.92 ml LVLd A4C: 7.58 cm LVESV MOD | | | A2C: 25.41 ml LVLs A2C: 6.25 cm LVESV MOD A4C: 24.51 ml | | | LVLs A4C: 6.29 cm LAESV(A-L): 62.51 ml LAESV Index (A-L): | | | 31.25 ml/m2 LAAs A2C: 18.38 cm2 LAESV A-L A2C: 52.98 ml LALs | | | A2C: 5.41 cm LAAs A4C: 21.69 cm2 LAESV A-L A4C: 64.70 ml | | | LALs A4C: 6.17 cm Ao Diam: 3.26 cm AV Cusp: 2.25 cm LA | | | Diam: 4.30 cm LA/Ao: 1.31 %FS: 44.17 % EDV(Teich): | | | 135.56 ml EF(Teich): 74.99 % ESV(Teich): 33.89 ml IVSd: | | | 1.17 cm IVSs: 1.74 cm LVIDd: 5.30 cm LVIDs: 2.96 cm | | | LVPWd: 1.25 cm LVPWs: 2.09 cm SV(Teich): 101.66 ml D-E | | | Excursion: 2.04 cm E-F Blanco: 0.12 m/s IVC diameter: 2.34 | | | cm IVC collapse: 0.39 cm IVC % collapse: 80.99 % AR Dec | | | Blanco: 1.14 m/s2 AR Dec Time: 1303.55 ms AR maxP.90 | | | mmHg AR PHT: 378.03 ms AR Vmax: 1.49 m/s HR: 54.35 BPM AV | | | maxP.35 mmHg AV meanP.15 mmHg AV Vmax: 2.25 m/s | | | AV Vmean: 1.30 m/s AV VTI: 45.07 cm WILLIAM Vmax: 2.30 cm2 WILLIAM | | | (VTI): 2.44 cm2 LVCI Dopp: 2.96 l/minm2 LVCO Dopp: 5.93 | | | l/min HR: 53.85 BPM LVOT maxP.23 mmHg LVOT meanPG: | | | 3.39 mmHg LVSI Dopp: 55.10 ml/m2 LVSV Dopp: 110.20 ml LVOT | | | Vmax: 1.34 m/s LVOT Vmean: 0.84 m/s LVOT VTI: 28.49 cm MR | | | maxP.78 mmHg MR Vmax: 5.23 m/s MV A Rubin: 0.29 m/s MV | | | DecT: 229.92 ms MV E Rubin: 1.17 m/s MV E/A Ratio: 3.95 MV | | | PHT: 69.29 ms MVA By PHT: 3.17 cm2 Septal e': 0.05 m/s | | | Septal E/e': 21.58 Lateral e': 0.08 m/s Lateral E/e': 13.55 | | | P Vein D: 0.83 m/s P Vein S/D Ratio: 0.62 P Vein S: 0.51 | | | m/s PAEDP: 14.68 mmHg PRend P.68 mmHg PRend Vmax: 1.55 | | | m/s HR: 53.02 BPM PV maxP.92 mmHg PV meanP.14 | | | mmHg PV Vmax: 1.10 m/s PV Vmean: 0.67 m/s PV VTI: 28.10 cm | | | RAP: 5 mmHg RVSP: 36.83 mmHg TR maxP.83 mmHg TR | | | Vmax: 2.82 m/s TV A Rubin: 0.47 m/s TV Dec Blanco: 2.03 m/s2 | | | TV Dec Time: 324.24 ms TV E Rubin: 0.66 m/s TV E/A Ratio: | | | 1.38 Court Administrator: Authenticated by: JONATHAN FOWLER MD Report | | | Date/Time: -- [id number] | | + + + + + | Procedure Note | + + | Roberto Murry Conversion - 05/29/2019 9:09 AM PDT Patient Name: Sugey ESTEBAN | | : 1940 Performing Physician: JONATHAN FOWLER, | | MD INDICATIONS S | | hortness of breath, chest pain CONCLUSIONS 1. Overall left ventricular | | systolic function is normal with, an EF between 65 - 70 %.2. There is mild concentric | | left ventricular hypertrophy.3. Restrictive LV diastolic filling pattern, consistent | | with elevated LA pressure and severe dysfunction (grade III).4. The right ventricle is | | moderately enlarged measuring between 3.8 - 4.1 cm, but has normal systolic function.5. | | The left atrium is mildly dilated.6. The right atrium is moderately enlarged.7. | | Wzzr-dn-etprtxwa mitral regurgitation is present.8. Moderate tricuspid regurgitation | | present.9. There is borderline pulmonary hypertension. The right ventricular systolic | | pressure (pulmonary artery systolic pressure), as measured by Doppler, is 36.8 mm Hg. | | FINDINGS--------ECG rhythm: Resting bradycardia (HR<60bpm).Study: A 2-dimensional | | transthoracic echocardiogram with m-mode, spectral and color flow Doppler was | | perfomed.Study: This was a technically adequate study.Left Ventricle: Overall left | | ventricular systolic function is normal with, an EF between 65 - 70 %.Left Ventricle: | | The left ventricle cavity size is normal.Left Ventricle: There is mild concentric left | | ventricular hypertrophy.Left Ventricle: Restrictive LV diastolic filling pattern, | | consistent with elevated LA pressure and severe dysfunction (grade III).Right Ventricle: | | The right ventricle is moderately enlarged measuring between 3.8 - 4.1 cm.Right | | Ventricle: The right ventricular systolic function is normal.Left Atrium: The left | | atrium is mildly dilated.Right Atrium: The right atrium is moderately enlarged.Aortic | | Valve: The aortic valve is trileaflet and appears structurally normal.Aortic Valve: | | Trace amount of aortic regurgitation.Mitral Valve: Normal appearing mitral valve.Mitral | | Valve: Ospw-pm-sicwlbqr mitral regurgitation is present.Mitral Valve: Mild thickening of | | the anterior mitral valve leaflet.Tricuspid Valve: The tricuspid valve appears | | structurally normal.Tricuspid Valve: Moderate tricuspid regurgitation present.Tricuspid | | Valve: There is borderline pulmonary hypertension.Tricuspid Valve: The right ventricular | | systolic pressure (pulmonary artery systolic pressure), as measured by Doppler, is 36.8 | | mm Hg.Pulmonic Valve: The pulmonic valve was not well visualized.Pulmonic Valve: | | Mild-moderate pulmonic regurgitation.Pericardium: There is a trivial pericardial | | effusion present.IVC/Hepatic Veins: The inferior vena cava is normal in size and | | collapses > 50 % with sniff, indicating normal central venous pressures.Mass: No mass | | visualizedThrombus: No clot visualizedThrombus: No vegetation visualized.Septum: No ASD | | observed.Septum: No VSD observed. MEASUREMENTS LA Major: 6.03 | | cmEDV(Teich): 101.95 mlIVSd: 1.22 cmLVIDd: 4.69 cmLVPWd: 1.19 cmLVOT Diam: | | 2.21 cm%FS: 35.32 %EF(Teich): 64.69 %ESV(Teich): 36.00 mlIVSs: 1.77 cmLVIDs: | | 3.03 cmLVPWs: 2.07 cmSV(Teich): 65.95 mlRA Major: 6.21 cmRVIDd: 4.08 cmLVEF MOD | | A2C: 65.87 %SV MOD A2C: 49.06 mlLVEF MOD A4C: 71.79 %SV MOD A4C: 62.40 mlEF | | Biplane: 69.77 %LVEDV MOD BP: 82.37 mlLVESV MOD BP: 24.89 mlLVEDV MOD A2C: 74.47 | | mlLVLd A2C: 7.96 cmLVEDV MOD A4C: 86.92 mlLVLd A4C: 7.58 cmLVESV MOD A2C: 25.41 | | mlLVLs A2C: 6.25 cmLVESV MOD A4C: 24.51 mlLVLs A4C: 6.29 cmLAESV(A-L): 62.51 | | mlLAESV Index (A-L): 31.25 ml/m2LAAs A2C: 18.38 [id number] A-L A2C: 52.98 mlLALs | | A2C: 5.41 cmLAAs A4C: 21.69 [id number] A-L A4C: 64.70 mlLALs A4C: 6.17 cmAo Diam: | | 3.26 cmAV Cusp: 2.25 cmLA Diam: 4.30 cmLA/Ao: 1.31%FS: 44.17 %EDV(Teich): | | 135.56 mlEF(Teich): 74.99 %ESV(Teich): 33.89 mlIVSd: 1.17 cmIVSs: 1.74 cmLVIDd: | | 5.30 cmLVIDs: 2.96 cmLVPWd: 1.25 cmLVPWs: 2.09 cmSV(Teich): 101.66 mlD-E | | Excursion: 2.04 cmE-F Blanco: 0.12 m/sIVC diameter: 2.34 cmIVC collapse: 0.39 | | cmIVC % collapse: 80.99 %AR Dec Blanco: 1.14 m/s2AR Dec Time: 1303.55 msAR maxPG: | | 8.90 mmHgAR PHT: 378.03 msAR Vmax: 1.49 m/sHR: 54.35 BPMAV maxP.35 mmHgAV | | meanP.15 mmHgAV Vmax: 2.25 m/Vikas Vmean: 1.30 m/Vikas VTI: 45.07 cmAVA Vmax: | | 2.30 cm2AVA (VTI): 2.44 [id number] Dopp: 2.96 l/uhop2FMYM Dopp: 5.93 l/minHR: 53.85 | | BPMLVOT maxP.23 mmHgLVOT meanP.39 mmHgLVSI Dopp: 55.10 ml/m2LVSV Dopp: | | 110.20 mlLVOT Vmax: 1.34 m/sLVOT Vmean: 0.84 m/sLVOT VTI: 28.49 cmMR maxPG: | | 109.78 mmHgMR Vmax: 5.23 m/sMV A Rubin: 0.29 m/sMV DecT: 229.92 msMV E Rubin: 1.17 | | m/sMV E/A Ratio: 3.95MV PHT: 69.29 msMVA By PHT: 3.17 mq6Ckdemz e': 0.05 | | m/sSeptal E/e': 21.58Lateral e': 0.08 m/sLateral E/e': 13.55P Vein D: 0.83 m/sP | | Vein S/D Ratio: 0.62P Vein S: 0.51 m/sPAEDP: 14.68 mmHgPRend P.68 mmHgPRend | | Vmax: 1.55 m/sHR: 53.02 BPMPV maxP.92 mmHgPV meanP.14 mmHgPV Vmax: | | 1.10 m/sPV Vmean: 0.67 m/sPV VTI: 28.10 cmRAP: 5 mmHgRVSP: 36.83 mmHgTR maxPG: | | 31.83 mmHgTR Vmax: 2.82 m/sTV A Rubin: 0.47 m/sTV Dec Blanco: 2.03 m/s2TV Dec Time: | | 324.24 msTV E Rubin: 0.66 m/sTV E/A Ratio: 1.38 Court Administrator: ASAuthenticated by: | | JONATHAN FOWLER [facility]PITALeport Date/Time: -- [id number] IMPRESSION: 1. Overall left | | ventricular systolic function is normal with, an EF between 65 - 70 %.2. There is mild | | concentric left ventricular hypertrophy.3. Restrictive LV diastolic filling pattern, | | consistent with elevated LA pressure and severe dysfunction (grade III).4. The right | | ventricle is moderately enlarged measuring between 3.8 - 4.1 cm, but has normal systolic | | function.5. The left atrium is mildly dilated.6. The right atrium is moderately | | enlarged.7. Epym-tu-xtjxlhaf mitral regurgitation is present.8. Moderate tricuspid | | regurgitation present.9. There is borderline pulmonary hypertension. The right | | ventricular systolic pressure (pulmonary artery systolic pressure), as measured by | | Doppler, is 36.8 mm Hg. | |RVIDd: 4.08 cm | |LVEF MOD A2C: 65.87 % | |SV MOD A2C: 49.06 ml | |LVEF MOD A4C: 71.79 % | |SV MOD A4C: 62.40 ml | |EF Biplane: 69.77 % | |LVEDV MOD BP: 82.37 ml | |LVESV MOD BP: 24.89 ml | |LVEDV MOD A2C: 74.47 ml | |LVLd A2C: 7.96 cm | |LVEDV MOD A4C: 86.92 ml | |LVLd A4C: 7.58 cm | |LVESV MOD A2C: 25.41 ml | |LVLs A2C: 6.25 cm | |LVESV MOD A4C: 24.51 ml | |LVLs A4C: 6.29 cm | |LAESV(A-L): 62.51 ml | |LAESV Index (A-L): 31.25 ml/m2 | |LAAs A2C: 18.38 cm2 | |LAESV A-L A2C: 52.98 ml | |LALs A2C: 5.41 cm | |LAAs A4C: 21.69 cm2 | |LAESV A-L A4C: 64.70 ml | |LALs A4C: 6.17 cm | |Ao Diam: 3.26 cm | |AV Cusp: 2.25 cm | |LA Diam: 4.30 cm | |LA/Ao: 1.31 | |%FS: 44.17 % | |EDV(Teich): 135.56 ml | |EF(Teich): 74.99 % | |ESV(Teich): 33.89 ml | |IVSd: 1.17 cm | |IVSs: 1.74 cm | |LVIDd: 5.30 cm | |LVIDs: 2.96 cm | |LVPWd: 1.25 cm | |LVPWs: 2.09 cm | |SV(Teich): 101.66 ml | |D-E Excursion: 2.04 cm | |E-F Blanco: 0.12 m/s | |IVC diameter: 2.34 cm | |IVC collapse: 0.39 cm | |IVC % collapse: 80.99 % | |AR Dec Blanco: 1.14 m/s2 | |AR Dec Time: 1303.55 ms | |AR maxP.90 mmHg | |AR PHT: 378.03 ms | |AR Vmax: 1.49 m/s | |HR: 54.35 BPM | |AV maxP.35 mmHg | |AV meanP.15 mmHg | |AV Vmax: 2.25 m/s | |AV Vmean: 1.30 m/s | |AV VTI: 45.07 cm | |WILLIAM Vmax: 2.30 cm2 | |WILLIAM (VTI): 2.44 cm2 | |LVCI Dopp: 2.96 l/minm2 | |LVCO Dopp: 5.93 l/min | |HR: 53.85 BPM | |LVOT maxP.23 mmHg | |LVOT meanP.39 mmHg | |LVSI Dopp: 55.10 ml/m2 | |LVSV Dopp: 110.20 ml | |LVOT Vmax: 1.34 m/s | |LVOT Vmean: 0.84 m/s | |LVOT VTI: 28.49 cm | |MR maxP.78 mmHg | |MR Vmax: 5.23 m/s | |MV A Rubin: 0.29 m/s | |MV DecT: 229.92 ms | |MV E Rubin: 1.17 m/s | |MV E/A Ratio: 3.95 | |MV PHT: 69.29 ms | |MVA By PHT: 3.17 cm2 | |Septal e': 0.05 m/s | |Septal E/e': 21.58 | |Lateral e': 0.08 m/s | |Lateral E/e': 13.55 | |P Vein D: 0.83 m/s | |P Vein S/D Ratio: 0.62 | |P Vein S: 0.51 m/s | |PAEDP: 14.68 mmHg | |PRend P.68 mmHg | |PRend Vmax: 1.55 m/s | |HR: 53.02 BPM | |PV maxP.92 mmHg | |PV meanP.14 mmHg | |PV Vmax: 1.10 m/s | |PV Vmean: 0.67 m/s | |PV VTI: 28.10 cm | |RAP: 5 mmHg | |RVSP: 36.83 mmHg | |TR maxP.83 mmHg | |TR Vmax: 2.82 m/s | |TV A Rubin: 0.47 m/s | |TV Dec Blanco: 2.03 m/s2 | |TV Dec Time: 324.24 ms | |TV E Rubin: 0.66 m/s | |TV E/A Ratio: 1.38 | | | |Court Administrator: | |Authenticated by: JONATHAN FOWLER MD | |Report Date/Time: -[id number] | | | |IMPRESSION: | |1. Overall left ventricular systolic function is normal with, an EF between 65 - 70 %. | |2. There is mild concentric left ventricular hypertrophy. | |3. Restrictive LV diastolic filling pattern, consistent with elevated LA pressure and sever e dysfunction (grade III). | |4. The right ventricle is moderately enlarged measuring between 3.8 - 4.1 cm, but has manuelito l systolic function. | |5. The left atrium is mildly dilated. | |6. The right atrium is moderately enlarged. | |7. Qkhq-gv-isrpppfu mitral regurgitation is present. | |8. Moderate tricuspid regurgitation present. | |9. There is borderline pulmonary hypertension. The right ventricular systolic pressure (pul monary artery systolic pressure), as measured by Doppler, is 36.8 mm Hg. | + + POC Glucose (03/29/2015 6:18 AM PDT) + + + + + + | Component | Value | Ref Range | Performed | Pathologist | | | | | At | Signature | + + + + + + | Glucose, | 107 (H)Comment: Testing | 65 - 99 mg/dL | EXTERNAL | | | Fingerstick | performed at [facility];[address] | | LAB | | | | [address];[place], [place] | | | | | | [address] | | | | + + + + + + + + | Specimen | + + | | + + + +---------+ + + | Performing | Address | City/State/Zipcode | Phone Number | | Organization | | | | + +---------+ + + | EXTERNAL LAB | | | | + +---------+ + + CK-MB (03/29/2015 5:50 AM PDT) + + + + + -+ | Component | Value | Ref Range | Performed | Pathologist | | | | | At | Signature | + + + + + -+ | CK-MB | 0.5Comment: Testing | 0.5 - 3.6 ng/mL | EXTERNAL | | | | performed at [facility];[address] | | LAB | | | | [address];[place], [place] | | | | | | [address] | | | | + + + + + -+ | CK-MB Index | 1.0Comment: CK INDEX | | EXTERNAL | | | | INTERPRETATION: | | LAB | | | | MMB ng/mL | | | | | | | | | | | |CK INDEX INTERPRETATION: | | | | | | MMB ng/mL | | | | | | | | | | + + + + + -+ + + | Specimen | + + | | + + + +---------+ + + | Performing | Address | City/State/Zipcode | Phone Number | | Organization | | | | + +---------+ + + | EXTERNAL LAB | | | | + +---------+ + + Troponin I (03/29/2015 5:50 AM PDT) + + + + + + | Component | Value | Ref Range | Performed | Pathologist | | | | | At | Signature | + + + + + + | Troponin I, | <0.020Comment: 0.00 to | 0.00 - 0.10 | EXTERNAL | | | Qual | 0.10 CONSISTENT WITH | ng/mL | LAB | | | | NORMAL POPULATION0.11 | | | | | | to 0.60 CONSISTENT | | | | | | WITH INCREASED RISK FOR | | | | | | ADVERSE OUTCOMES> 0.60 | | | | | | CONSISTENT | | | | | | WITH WHO CRITERIA FOR | | | | | | ACUTE VT Testing | | | | | | performed at [facility];[address] | | | | | | [address];[place], [place] | | | | | | [address] | | | | + + + [...] + +---------+ + + External Lab: CBC (03/29/2015 5:50 AM PDT) + + + + + + | Component | Value | Ref Range | Performed | Pathologist | | | | | At | Signature | + + + + + + | WBC | 8.18Comment: Testing | 3.80 - 11.00 | EXTERNAL | | | | performed at [facility], [address] | K/uL | LAB | | | | [address], | | | | | | [place] [address] | | | | + + + + + + | RED CELL | 3.90Comment: Testing | 3.70 - 5.10 | EXTERNAL | | | COUNT | performed at [facility], [address] | M/uL | LAB | | | | [address], | | | | | | [place] [address] | | | | + + + + + + | Hgb | 12.2Comment: Testing | 11.3 - 15.5 | EXTERNAL | | | | performed at [facility], [address] | g/dL | LAB | | | | [address], | | | | | | [place] [address] | | | | + + + + + + | Hematocrit, | 36.7Comment: Testing | 34.0 - 46.0 % | EXTERNAL | | | POC | performed at [facility], [address] | | LAB | | | | [address], | | | | | | [place] [address] | | | | + + + + + + | MCV | 94.1Comment: Testing | 80.0 - 100.0 fl | EXTERNAL | | | | performed at [facility], [address] | | LAB | | | | [address], | | | | | | [place] [address] | | | | + + + + + + | MCH | 31.3Comment: Testing | 27.0 - 34.0 pg | EXTERNAL | | | | performed at [facility], [address] | | LAB | | | | [address], | | | | | | [place] [address] | | | | + + + + + + | MCHC | 33.3Comment: Testing | 32.0 - 35.5 | EXTERNAL | | | | performed at [facility], [address] | g/dL | LAB | | | | [address], | | | | | | [place] [address] | | | | + + + + + + | RDW-CV | 41.1Comment: Testing | 37 - 53 fl | EXTERNAL | | | | performed at [facility], [address] | | LAB | | | | [address], | | | | | | [place] [address] | | | | + + + + + + | Platelet | 276Comment: Testing | 150 - 400 K/uL | EXTERNAL | | | Count | performed at [facility], [address] | | LAB | | | Plasma | [address], | | | | | | [place] [address] | | | | + + + + + + | MPV | 8.1Comment: Testing | fl | EXTERNAL | | | | performed at [facility], [address] | | LAB | | | | [address], | | | | | | [place] [address] | | | | + + + + + + | Differentia | AUTOMATEDComment: | | EXTERNAL | | | l Type | Testing performed at | | LAB | | | | [facility], [address] | | | | | | [place] | | | | | | [address] | | | | + + + + + + | % Segmented | 64.20Comment: Testing | % | EXTERNAL | | | | performed at [facility], [address] | | LAB | | | Neutrophils | [address], | | | | | | [place] [address] | | | | + + + + + + | % | 24.61Comment: Testing | % | EXTERNAL | | | Lymphocytes | performed at [facility], [address] | | LAB | | | | [address], | | | | | | [place] [address] | | | | + + + + + + | % Monocytes | 8.05Comment: Testing | % | EXTERNAL | | | | performed at [facility], [address] | | LAB | | | | [address], | | | | | | [place] [address] | | | | + + + + + + | % | 2.30Comment: Testing | % | EXTERNAL | | | Eosinophils | performed at [facility], [address] | | LAB | | | | [address], | | | | | | [place] [address] | | | | + + + + + + | % Basophils | 0.84Comment: Testing | % | EXTERNAL | | | | performed at [facility], [address] | | LAB | | | | [address], | | | | | | [place] [address] | | | | + + + + + + | Absolute | 5.25Comment: Testing | 1.90 - 7.40 | EXTERNAL | | | Segmented | performed at [facility], [address] | K/uL | LAB | | | Neutrophils | [address], | | | | | | [place] [address] | | | | + + + + + + | Absolute | 2.01Comment: Testing | 1.00 - 3.90 | EXTERNAL | | | Lymphocytes | performed at [facility], [address] | K/uL | LAB | | | | [address], | | | | | | [place] [address] | | | | + + + + + + | Absolute | 0.66Comment: Testing | 0.00 - 0.80 | EXTERNAL | | | Monocytes | performed at [facility], [address] | K/uL | LAB | | | | [address], | | | | | | [place] [address] | | | | + + + + + + | Absolute | 0.19Comment: Testing | 0.00 - 0.50 | EXTERNAL | | | Eosinophils | performed at [facility], [address] | K/uL | LAB | | | | [address], | | | | | | [place] [address] | | | | + + + + + + | Absolute | 0.07Comment: Testing | 0.00 - 0.10 | EXTERNAL | | | Basophils | performed at [facility], [address] | K/uL | LAB | | | | [address], | | | | | | [place] [address] | | | | + + + + + + + + | Specimen | + + | Blood specimen | | (specimen) | + + + +---------+ + + | Performing | Address | City/State/Zipcode | Phone Number | | Organization | | | | + +---------+ + + | EXTERNAL LAB | | | | + +---------+ + + TSH (03/29/2015 5:50 AM PDT) + + + + + + | Component | Value | Ref Range | Performed | Pathologist | | | | | At | Signature | + + + + + + | TSH | 5.20 (H)Comment: Testing | 0.45 - 5.10 | EXTERNAL | | | | performed at [facility], [address] | uIU/mL | LAB | | | | [address], | | | | | | [place] [address] | | | | + + + + + + + + | Specimen | + + | Blood specimen | | (specimen) | + + + +---------+ + + | Performing | Address | City/State/Zipcode | Phone Number | | Organization | | | | + +---------+ + + | EXTERNAL LAB | | | | + +---------+ + + Phosphorus (03/29/2015 5:50 AM PDT) + + + + + + | Component | Value | Ref Range | Performed | Pathologist | | | | | At | Signature | + + + + + + | PHOSPHORUS | 3.4Comment: Testing | 2.3 - 4.8 mg/dL | EXTERNAL | | | | performed at [facility], [address] | | LAB | | | | [address], | | | | | | [place] [address] | | | | + + + + + + + + | Specimen | + + | Blood specimen | | (specimen) | + + + +---------+ + + | Performing | Address | City/State/Zipcode | Phone Number | | Organization | | | | + +---------+ + + | EXTERNAL LAB | | | | + +---------+ + + Magnesium (03/29/2015 5:50 AM PDT) + + + + + + | Component | Value | Ref Range | Performed | Pathologist | | | | | At | Signature | + + + + + + | Magnesium | 1.7Comment: Testing | 1.7 - 2.4 mg/dL | EXTERNAL | | | | performed at [facility], [address] | | LAB | | | | [address], | | | | | | [place] [address] | | | | + + + + + + + + | Specimen | + + | Blood specimen | | (specimen) | + + + +---------+ + + | Performing | Address | City/State/Zipcode | Phone Number | | Organization | | | | + +---------+ + + | EXTERNAL LAB | | | | + +---------+ + + Hemoglobin A1C (03/29/2015 5:50 AM PDT) + + + + + + | Component | Value | Ref Range | Performed | Pathologist | | | | | At | Signature | + + + + + + | Hemoglobin | 6.2 (H)Comment: The | 4.0 - 6.0 % | EXTERNAL | | | A1c | [facility] | | LAB | | | [...] | | | | | | reference method.Testing | | | | | | performed at [facility], [address] | | [address] | | [address], | | | | | | [place] [address] | | | | + + + + + + | Glycohemogl | 131Comment: The ADA | mg/dL | EXTERNAL | [...] recommended | | | | | | formula.Testing | | | | | | performed at [facility], [address] | | | | | | [facility], | | | | | | [place] [address] | | | | + + + + + + + + | Specimen | + + | Blood specimen | | (specimen) | + + + +---------+ + + | Performing | Address | City/State/Zipcode | Phone Number | | Organization | | | | + +---------+ + + | EXTERNAL LAB | | | | + +---------+ + + CK Total (03/29/2015 5:50 AM PDT) + + + + + + | Component | Value | Ref Range | Performed | Pathologist | | | | | At | Signature | + + + + + + | CK, Total | 48Comment: Testing | 30 - 240 U/L | EXTERNAL | | | | performed at [facility];[address] | LAB | | | [address];[place], [place] | | | | | | [address] | | | | + + + + + + + + | Specimen | + + | Blood specimen | | (specimen) | + + + +---------+ + + | Performing | Address | City/State/Zipcode | Phone Number | | Organization | | | | + +---------+ + + | EXTERNAL LAB | | | | + +---------+ + + Hepatic Function Panel (03/29/2015 5:50 AM PDT) + + + + + + | Component | Value | Ref Range | Performed | Pathologist | | | | | At | Signature | + + + + + + | Protein, | 6.0 (L)Comment: Testing | 6.3 - 8.2 g/dL | EXTERNAL | | | Total | performed at [facility], [address] | | LAB | | | | [address], | | | | | | [place] [address] | | | | + + + + + + | Albumin | 3.7Comment: Testing | 3.3 - 4.8 g/dL | EXTERNAL | | | | performed at [facility], [address] | | LAB | | | | [address], | | | | | | [place] [address] | | | | + + + + + + | Bilirubin | 1.0Comment: Testing | 0.1 - 1.5 mg/dL | EXTERNAL | | | Total | performed at [facility], [address] | | LAB | | | | [address], | | | | | | [place] [address] | | | | + + + + + + | Bilirubin | 0.2Comment: Testing | 0.0 - 0.3 mg/dL | EXTERNAL | | | Direct | performed at [facility], [address] | | LAB | | | | [address], | | | | | | [place] [address] | | | | + + + + + + | ALP, | 66Comment: Testing | 35 - 115 U/L | EXTERNAL | | | External | performed at [facility], [address] | | LAB | | | | [address], | | | | | | [place] [address] | | | | + + + + + + | AST | 16Comment: Testing | 10 - 45 U/L | EXTERNAL | | | | performed at [facility], [address] | | LAB | | | | [address], | | | | | | [place] [address] | | | | + + + + + + | ALT | 9 (L)Comment: Testing | 10 - 65 U/L | EXTERNAL | | | | performed at [facility], [address] | | LAB | | | | [address], | | | | | | [place] [address] | | | | + + + + + + + + | Specimen | + + | Blood specimen | | (specimen) | + + + +---------+ + + | Performing | Address | City/State/Zipcode | Phone Number | | Organization | | | | + +---------+ + + | EXTERNAL LAB | | | | + +---------+ + + Lipid Panel (03/29/2015 5:50 AM PDT) + + + + + + | Component | Value | Ref Range | Performed | Pathologist | | | | | At | Signature | + + + + + + | Cholesterol | 88Comment: Testing | mg/dL | EXTERNAL | | | | performed at [facility], [address] | | LAB | | | | [address], | | | | | | [place] [address] | | | | + + + + + + | Triglycerid | 142Comment: Testing | mg/dL | EXTERNAL | | | es | performed at [facility], [address] | | LAB | | | | [address], | | | | | | [place] [address] | | | | + + + + + + | HDL | 27 (L)Comment: Testing | mg/dL | EXTERNAL | | | | performed at [facility], [address] | | LAB | | | | [address], | | | | | | [place] [address] | | | | + + + + + + | LDL | 33Comment: Testing | mg/dL | EXTERNAL | | | Cholesterol | performed at [facility], [address] | | LAB | | | , | [address], | | | | | Calculated, | [place] [address] | | | | | External | [...] | | | + +---------+ + + Comprehensive Metabolic Panel (03/29/2015 5:50 AM PDT) + + + + + + | Component | Value | Ref Range | Performed | Pathologist | | | | | At | Signature | + + + + + + | Na | 140Comment: Testing | 135 - 143 | EXTERNAL | | | | performed at [facility], [address] | mmol/L | LAB | | | | [address], | | | | | | [place] [address] | | | | + + + + + + | K | 3.7Comment: Testing | 3.5 - 4.9 | EXTERNAL | | | | performed at [facility], [address] | mmol/L | LAB | | | | [address], | | | | | | [place] [address] | | | | + + + + + + | Cl | 103Comment: Testing | 99 - 109 mmol/L | EXTERNAL | | | | performed at [facility], [address] | | LAB | | | | [address], | | | | | | [place] [address] | | | | + + + + + + | CO2 | 32Comment: Testing | 23 - 32 mmol/L | EXTERNAL | | | | performed at [facility], [address] | | LAB | | | | [address], | | | | | | [place] [address] | | | | + + + + + + | Anion Gap | 9Comment: Testing | 5 - 20 mmol/L | EXTERNAL | | | | performed at [facility], [address] | | LAB | | | | [address], | | | | | | [place] [address] | | | | + + + + + + | Glucose, | 123 (H)Comment: Testing | 65 - 99 mg/dL | EXTERNAL | | | Fasting | performed at [facility], [address] | | LAB | | | | [address], | | | | | | [place] [address] | | | | + + + + + + | BUN | 15Comment: Testing | 8 - 25 mg/dL | EXTERNAL | | | | performed at [facility], [address] | | LAB | | | | [address], | | | | | | [place] [address] | | | | + + + + + + | Creatinine | 0.99Comment: Testing | 0.50 - 1.00 | EXTERNAL | | | | performed at [facility], [address] | mg/dL | LAB | | | | [address], | | | | | | [place] [address] | | | | + + + + + + | BUN/Creatin | 15Comment: Testing | | EXTERNAL | | | ine Ratio | performed at [facility], [address] | | LAB | | | | [address], | | | | | | [place] [address] | | | | + + + + + + | Calcium | 9.4Comment: Testing | 8.5 - 10.5 | EXTERNAL | | | | performed at [facility], [address] | mg/dL | LAB | | | | [address], | | | | | | [place] [address] | | | | + + + + + + | Protein, | 6.0 (L)Comment: Testing | 6.3 - 8.2 g/dL | EXTERNAL | | | Total | performed at [facility], [address] | | LAB | | | | [address], | | | | | | [place] [address] | | | | + + + + + + | Albumin | 3.7Comment: Testing | 3.3 - 4.8 g/dL | EXTERNAL | | | | performed at [facility], [address] | | LAB | | | | [address], | | | | | | [place] [address] | | | | + + + + + + | Globulin | 2.3Comment: Testing | 1.3 - 4.9 g/dL | EXTERNAL | | | | performed at [facility], [address] | | LAB | | | [address], | | | | | | [place] [address] | | | | + + + + + + | A/G Ratio | 1.6Comment: Testing | 1.0 - 2.4 | EXTERNAL | | | | performed at [facility], [address] | | LAB | | | | [address], | | | | | | [place] [address] | | | | + + + + + + | Bilirubin | 1.0Comment: Testing | 0.1 - 1.5 mg/dL | EXTERNAL | | | Total | performed at [facility], [address] | | LAB | | | | [address], | | | | | | [place] [address] | | | | + + + + + + | ALP, | 66Comment: Testing | 35 - 115 U/L | EXTERNAL | | | External | performed at [facility], [address] | | LAB | | | | [address], | | | | | | [place] [address] | | | | + + + + + + | AST | 13Comment: Testing | 10 - 45 U/L | EXTERNAL | | | | performed at [facility], [address] | | LAB | | | | [address], | | | | | | [place] [address] | | | | + + + + + + | ALT | 11Comment: Testing | 10 - 65 U/L | EXTERNAL | | | | performed at [facility], [address] | | LAB | | | | [facility], | | | | | | [place] [address] | | | | + + + + + + | Estimated | 58 (L)Comment: GFR <60: | mL/min/1.73m2 | EXTERNAL | | | GFR | CHRONIC KIDNEY DISEASE, | | LAB | | | | IF FOUND OVER A 3 MONTH | | | | | | PERIOD.GFR <15: KIDNEY | | | | | | FAILURE.FOR | | | | | | AMERICANS, MULTIPLY THE | | | | | | CALCULATED GFR BY | | | | | | 1.210.Testing performed | | | | | | at [facility], [address] | | | | | | [facility], | | | | | | [place] [address] | | | | + + + + + + + + | Specimen | + + | Blood specimen | | (specimen) | + + + +---------+ + + | Performing | Address | City/State/Zipcode | Phone Number | | Organization | | | | + +---------+ + + | EXTERNAL LAB | | | | + +---------+ + + ECG 12 lead (03/29/2015 5:09 AM PDT) + + + + + + | Component | Value | Ref Range | Performed | Pathologist | | | | | At | Signature | + + + + + + | DIAGNOSIS: | Sinus bradycardia with | | EXTERNAL | | | | 1st degree A-V | | LAB | | | | blockProminent U | | | | | | wavesOtherwise normal | | | | | | ECGWhen compared with | | | | | | ECG of 28-MAR-2015 | | | | | | 21:51,No significant | | | | | | change was | | | | | | foundConfirmed by Malcolm, | | | | | | Jonathan ([id number]) on | | | | | | 03/29/2015 8:46:09 PM | | | | + + + + + + + + | Specimen | + + | | + + + + + | Narrative | Performed At | + + + | Historically converted procedure from [facility] | EXTERNAL LAB | + + + + +---------+ + + | Performing | Address | City/State/Zipcode | Phone Number | | Organization | | | | + +---------+ + + | EXTERNAL LAB | | | | + +---------+ + + CK-MB (03/29/2015 1:56 AM PDT) + + + + + + | Component | Value | Ref Range | Performed | Pathologist | | | | | At | Signature | + + + + + + | CK-MB | <0.5 (L)Comment: Testing | 0.5 - 3.6 ng/mL | EXTERNAL | | | | performed at [facility] | | LAB | | | | [address];[place], [place] | | | | | | [address] | | | | + + + + + + | CK-MB Index | UNABLE TO | | EXTERNAL | | | | CALCULATEComment: | | LAB | | | | Testing performed at | | | | | | [facility];[address] [facility] | | | | | | [address];[place] [address] | | | | + + + + + + + + | Specimen | + + | | + + + +---------+ + + | Performing | Address | City/State/Zipcode | Phone Number | | Organization | | | | + +---------+ + + | EXTERNAL LAB | | | | + +---------+ + + Troponin I (03/29/2015 1:56 AM PDT) + + + + + + | Component | Value | Ref Range | Performed | Pathologist | | | | | At | Signature | + + + + + + | Troponin I, | <0.020Comment: 0.00 to | 0.00 - 0.10 | EXTERNAL | | | Qual | 0.10 CONSISTENT WITH | ng/mL | LAB | | | | NORMAL POPULATION0.11 | | | | | | to 0.60 CONSISTENT | | | | | | WITH INCREASED RISK FOR | | | | | | ADVERSE OUTCOMES> 0.60 | | | | | | CONSISTENT | | | | | | WITH WHO CRITERIA FOR | | | | | | ACUTE VT Testing | | | | | | performed at [facility] | | | | | | [facility];[place], [place] | | | | | | [address] | | | | + + + + + + + + | Specimen | + + | Blood specimen | | (specimen) | + + + +---------+ + + | Performing | Address | City/State/Zipcode | Phone Number | | Organization | | | | + +---------+ + + | EXTERNAL LAB | | | | + +---------+ + + CK Total (03/29/2015 1:56 AM PDT) + + + + + + | Component | Value | Ref Range | Performed | Pathologist | | | | | At | Signature | + + + + + + | CK, Total | 54Comment: Testing | 30 - 240 U/L | EXTERNAL | | | | performed at [facility];[address] | | LAB | | | | [address];[place] | | | | | | [address] | | | | + + + + + + + + | Specimen | + + | Blood specimen | | (specimen) | + + + +---------+ + + | Performing | Address | City/State/Zipcode | Phone Number | | Organization | | | | + +---------+ + + | EXTERNAL LAB | | | | + +---------+ + + POC Glucose (03/29/2015 1:29 AM PDT) + + + + + + | Component | Value | Ref Range | Performed | Pathologist | | | | | At | Signature | + + + + + + | Glucose, | 191 (H)Comment: Testing | 65 - 99 mg/dL | EXTERNAL | | | Fingerstick | performed at [facility];[address] | | LAB | | | | [address];[place], [place] | | | | | | [address] | | | | + + + + + + + + | Specimen | + + | | + + + +---------+ + + | Performing | Address | City/State/Zipcode | Phone Number | | Organization | | | | + +---------+ + + | EXTERNAL LAB | | | | + +---------+ + + Troponin I (03/28/2015 10:04 PM PDT) + + + + + + | Component | Value | Ref Range | Performed | Pathologist | | | | | At | Signature | + + + + + + | Troponin I, | <0.020Comment: 0.00 to | 0.00 - 0.10 | EXTERNAL | | | Qual | 0.10 CONSISTENT WITH | ng/mL | LAB | | | | NORMAL POPULATION0.11 | | | | | | to 0.60 CONSISTENT | | | | | | WITH INCREASED RISK FOR | | | | | | ADVERSE OUTCOMES> 0.60 | | | | | | CONSISTENT | | | | | | WITH WHO CRITERIA FOR | | | | | | ACUTE [place] Testing | | | | | | performed at [facility];[address] | | | | | | [facility];[place], [place] | | | | | | [address] | | | | + + + + + + + + | Specimen | + + | | + + + +---------+ + + | Performing | Address | City/State/Zipcode | Phone Number | | Organization | | | | + +---------+ + + | EXTERNAL LAB | | | | + +---------+ + + External Lab: CBC (03/28/2015 10:04 PM PDT) + + + + + + | Component | Value | Ref Range | Performed | Pathologist | | | | | At | Signature | + + + + + + | WBC | 8.90Comment: Testing | 3.80 - 11.00 | EXTERNAL | | | | performed at [facility];[address] | K/uL | LAB | | | | [address];[place] | | | | | | [address] | | | | + + + + + + | RED CELL | 4.12Comment: Testing | 3.70 - 5.10 | EXTERNAL | | | COUNT | performed at [facility];[address] | M/uL | LAB | | | | [address];[place] | | | | | | [address] | | | | + + + + + + | Hgb | 13.1Comment: Testing | 11.3 - 15.5 | EXTERNAL | | | | performed at [facility];[address] | g/dL | LAB | | | | [address];[place] | | | | | | [address] | | | | + + + + + + | Hematocrit, | 38.6Comment: Testing | 34.0 - 46.0 % | EXTERNAL | | | POC | performed at [facility];[address] | | LAB | | | | [address];[place] | | | | | | [address] | | | | + + + + + + | MCV | 93.7Comment: Testing | 80.0 - 100.0 fl | EXTERNAL | | | | performed at [facility];[address] | | LAB | | | | [address];[place] | | | | | | [address] | | | | + + + + + + | MCH | 31.9Comment: Testing | 27.0 - 34.0 pg | EXTERNAL | | | | performed at [facility];[address] | | LAB | | | | [address];[place] | | | | | | [address] | | | | + + + + + + | MCHC | 34.0Comment: Testing | 32.0 - 35.5 | EXTERNAL | | | | performed at [facility];[address] | g/dL | LAB | | | | [address];[place] | | | | | | [address] | | | | + + + + + + | RDW-CV | 41.6Comment: Testing | 37 - 53 fl | EXTERNAL | | | | performed at [facility];[address] | | LAB | | | | [address];[place] | | | | | | [address] | | | | + + + + + + | Platelet | 264Comment: Testing | 150 - 400 K/uL | EXTERNAL | | | Count | performed at [facility];[address] | | LAB | | | Plasma | [address];[place] | | | | | | [address] | | | | + + + + + + | MPV | 7.5Comment: Testing | fl | EXTERNAL | | | | performed at [facility];[address] | | LAB | | | | [address];[place] | | | | | | [address] | | | | + + + + + + | Differentia | AUTOMATEDComment: | | EXTERNAL | | | l Type | Testing performed at | | LAB | | | | [facility];[address];[place] [address] | | | | + + + + + + | % Segmented | 64.94Comment: Testing | % | EXTERNAL | | | | performed at [facility];[address] | | LAB | | | Neutrophils | [address];[place] | | | | | | [address] | | | | + + + + + + | % | 24.79Comment: Testing | % | EXTERNAL | | | Lymphocytes | performed at [facility];[address] | | LAB | | | | [address];[place] | | | | | | [address] | | | | + + + + + + | % Monocytes | 7.10Comment: Testing | % | EXTERNAL | | | | performed at [facility];[address] | | LAB | | | | [address];[place] | | | | | | [address] | | | | + + + + + + | % | 2.09Comment: Testing | % | EXTERNAL | | | Eosinophils | performed at [facility];[address] | | LAB | | | | [address];[place] | | | | | | [address] | | | | + + + + + + | % Basophils | 1.08Comment: Testing | % | EXTERNAL | | | | performed at [facility];[address] | | LAB | | | | [address];[place] | | | | | | [address] | | | | + + + + + + | Absolute | 5.78Comment: Testing | 1.90 - 7.40 | EXTERNAL | | | Segmented | performed at [facility];[address] | K/uL | LAB | | | Neutrophils | [address];[place] | | | | | | [address] | | | | + + + + + + | Absolute | 2.21Comment: Testing | 1.00 - 3.90 | EXTERNAL | | | Lymphocytes | performed at [facility];[address] | K/uL | LAB | | | | [address];[place] | | | | | | [address] | | | | + + + + + + | Absolute | 0.63Comment: Testing | 0.00 - 0.80 | EXTERNAL | | | Monocytes | performed at [facility];[address] | K/uL | LAB | | | | [address];[place] | | | | | | [address] | | | | + + + + + + | Absolute | 0.19Comment: Testing | 0.00 - 0.50 | EXTERNAL | | | Eosinophils | performed at [facility];[address] | K/uL | LAB | | | | [address];[place] | | | | | | [address] | | | | + + + + + + | Absolute | 0.10Comment: Testing | 0.00 - 0.10 | EXTERNAL | | | Basophils | performed at [facility];[address] | K/uL | LAB | | | | [address];[place] | | | | | | [address] | | | | + + + + + + + + | Specimen | + + | Blood specimen | | (specimen) | + + + +---------+ + + | Performing | Address | City/State/Zipcode | Phone Number | | Organization | | | | + +---------+ + + | EXTERNAL LAB | | | | + +---------+ + + Digoxin Level (03/28/2015 10:04 PM PDT) + + + + + + | Component | Value | Ref Range | Performed | Pathologist | | | | | At | Signature | + + + + + + | Date of | UNKNOWNComment: Testing | | EXTERNAL | | | Last Dose | performed at [facility];[address] | | LAB | | | [address];[place] | | | | | | [address] | | | | + + + + + + | Time of | UNKNOWNComment: Testing | | EXTERNAL | | | Last Dose | performed at [facility];[address] | | LAB | | | | [address];[place] | | | | | | [address] | | | | + + + + + + | Digoxin | 0.3 (L)Comment: Testing | 0.90 - 2.00 | EXTERNAL | | | level | performed at [facility];[address] | ng/mL | LAB | | | | [address];[place] | | | | | | [address] | | | | + + + + + + + + | Specimen | + + | Blood specimen | | (specimen) | + + + +---------+ + + | Performing | Address | City/State/Zipcode | Phone Number | | Organization | | | | + +---------+ + + | EXTERNAL LAB | | | | + +---------+ + + Comprehensive Metabolic Panel (03/28/2015 10:04 PM PDT) + + + + + + | Component | Value | Ref Range | Performed | Pathologist | | | | | At | Signature | + + + + + + | Na | 140Comment: Testing | 135 - 143 | EXTERNAL | | | | performed at [facility];[address] | mmol/L | LAB | | | | [address];[place], [place] | | | | | | [address] | | | | + + + + + + | K | 3.8Comment: Testing | 3.5 - 4.9 | EXTERNAL | | | | performed at [facility];[address] | mmol/L | LAB | | | | [address];[place] | | | | | | [address] | | | | + + + + + + | Cl | 103Comment: Testing | 99 - 109 mmol/L | EXTERNAL | | | | performed at [facility];[address] | | LAB | | | | [address];[place] | | | | | | [address] | | | | + + + + + + | CO2 | 30Comment: Testing | 23 - 32 mmol/L | EXTERNAL | | | | performed at [facility];[address] | | LAB | | | | [address];[place] | | | | | | [address] | | | | + + + + + + | Anion Gap | 11Comment: Testing | 5 - 20 mmol/L | EXTERNAL | | | | performed at [facility];[address] | | LAB | | | | [address];[place] | | | | | | [address] | | | | + + + + + + | Glucose, | 197 (H)Comment: Testing | 65 - 99 mg/dL | EXTERNAL | | | Fasting | performed at [facility];[address] | | LAB | | | | [address];[place] | | | | | | [address] | | | | + + + + + + | BUN | 16Comment: Testing | 8 - 25 mg/dL | EXTERNAL | | | | performed at [facility];[address] | | LAB | | | | [address];[place] | | | | | | [address] | | | | + + + + + + | Creatinine | 1.10 (H)Comment: Testing | 0.50 - 1.00 | EXTERNAL | | | | performed at [facility];[address] | mg/dL | LAB | | | | [address];[place] | | | | | | [address] | | | | + + + + + + | BUN/Creatin | 14Comment: Testing | | EXTERNAL | | | ine Ratio | performed at [facility];[address] | | LAB | | | | [address];[place] | | | | | | [address] | | | | + + + + + + | Calcium | 9.1Comment: Testing | 8.5 - 10.5 | EXTERNAL | | | | performed at [facility];[address] | mg/dL | LAB | | | | [address];[place] | | | | | | [address] | | | | + + + + + + | Protein, | 6.9Comment: Testing | 6.3 - 8.2 g/dL | EXTERNAL | | | Total | performed at [facility];[address] | | LAB | | | | [address];[place] | | | | | | [address] | | | | + + + + + + | Albumin | 3.7Comment: Testing | 3.3 - 4.8 g/dL | EXTERNAL | | | | performed at [facility];[address] | | LAB | | | | [address];[place] | | | | | | [address] | | | | + + + + + + | Globulin | 3.1Comment: Testing | 1.3 - 4.9 g/dL | EXTERNAL | | | | performed at [facility];[address] | | LAB | | | | [address];[place] | | | | | | [address] | | | | + + + + + + | A/G Ratio | 1.2Comment: Testing | 1.0 - 2.4 | EXTERNAL | | | | performed at [facility];[address] | | LAB | | | | [address];[place] | | | | | | [address] | | | | + + + + + + | Bilirubin | 0.9Comment: Testing | 0.1 - 1.5 mg/dL | EXTERNAL | | | Total | performed at [facility];[address] | | LAB | | | | [address];[place] | | | | | | [address] | | | | + + + + + + | ALP, | 88Comment: Testing | 35 - 115 U/L | EXTERNAL | | | External | performed at [facility];[address] | | LAB | | | | [address];[place] | | | | | | [address] | | | | + + + + + + | AST | 16Comment: Testing | 10 - 45 U/L | EXTERNAL | | | | performed at [facility];[address] | | LAB | | | | [address];[place] | | | | | | [address] | | | | + + + + + + | ALT | 16Comment: Testing | 10 - 65 U/L | EXTERNAL | | | | performed at [facility];[address] | | LAB | | | | [address];[place] | | | | | | [address] | | | | + + + + + + | Estimated | 52 (L)Comment: GFR <60: | mL/min/1.73m2 | EXTERNAL | | | GFR | CHRONIC KIDNEY DISEASE, | | LAB | | | | IF FOUND OVER A 3 MONTH | | | | | | PERIOD.GFR <15: KIDNEY | | | | | | FAILURE.FOR | | | | | | AMERICANS, MULTIPLY THE | | | | | | CALCULATED GFR BY | | | | | | 1.210.Testing performed | | | | | | at [facility];[address] [place] [address] | | | | | | [facility];[place] [address] | | | | + + + + + + + + | Specimen | + + | Blood specimen | | (specimen) | + + + +---------+ + + | Performing | Address | City/State/Zipcode | Phone Number | | Organization | | | | + +---------+ + + | EXTERNAL LAB | | | | + +---------+ + + ECG 12 lead (03/28/2015 9:51 PM PDT) + + + + + + | Component | Value | Ref Range | Performed | Pathologist | | | | | At | Signature | + + + + + + | DIAGNOSIS: | Sinus bradycardia with | | EXTERNAL | | | | 1st degree A-V | | LAB | | | | blockOtherwise normal | | | | | | ECGNo previous ECGs | | | | | | availableThis ECG | | | | | | contains Unconfirmed | | | | | | Interpretation | | | | | | Statements. See ED | | | | | | Record for Physician | | | | | | Interpretation. | | | | | | Confirmed by MUSE READ | | | | | | ONLY, -COMPUTER ([id number]), | | | | | | school photograph editor Flora Francisco | | | | | | (25) on 03/29/2015 | | | | | | 1:03:13 AM | | | | + + + + + + + + | Specimen | + + | | + + + + + | Narrative | Performed At | + + + | Historically converted procedure from [facility] | EXTERNAL LAB | + + + + +---------+ + + | Performing | Address | City/State/Zipcode | Phone Number | | Organization | | | | + +---------+ + + | EXTERNAL LAB | | | | + +---------+ + + documented in this encounter Visit Diagnoses + + | Diagnosis | + + | Acute chest pain Chest pain, unspecified | + + | Secondary hypertension, unspecified | + + | Digoxin toxicity, undetermined intent, subsequent encounter | + + | Chest pain, unspecified | + + documented in this encounter"
--- OUTSIDE RECORDS SUMMARY | ~2019-10-18 | XMS | Encounter Summary ---
Demographics + + + | Address | [address] | | | [place] [address] | + + + | Home Phone [...] Team Providers + +------+ + | Care Denture Model Maker Name | Role | Phone | + +------+ + | Jesus Mijares MD | PCP | | + +------+ + Reason for Visit + + + | Reason | Comments | + + + | Appointment | | + + + Encounter Details +--------+ + + + + | Date | Type | Department | Care Team | Description | +--------+ + + + + | 02/03/ | Telephone | [facility] | Nilson Chaudhry | Appointment | | 2012 | | [address]RY [address] | | | | | [place], | [address] [place], [place] | | | | | [place] [address] | [address] | | | | | [phone] | | | +--------+ + + + [...] | | | | | | [place] [address] | | | | | | [phone] | | | | | | | [...]
--- OUTSIDE RECORDS SUMMARY | ~2019-10-18 | XMS | Encounter Summary ---
Demographics + + + | Address | [address] | | | [place] [address] | + + + | Home Phone | | + + + | Preferred Language | Unknown | + + + | Marital Status | | + + + | Rastafarian Affiliation | 1027 | + + + [...] Providers + +------+ + | Care Information Technology Specialist Name | Role | Phone | + +------+ + | Jesus Mijares MD | PCP | | + +------+ + Encounter Details +--------+ + + + + | Date | Type | Department | Care Team | Description | +--------+ + + + + | 04/27/ | Documentati | [facility] | Capo Bermudez, | | | 2019 | on | PHYSIATRY [address] | PA-C [address] | | | | | [place], | [address] [place] | | | | | [place] [address] | [place] [address] | | | | | [phone] | [phone] | | | | | | | [...] documented as of this encounter Progress Notes Capo Bermudez PA-C - 04/27/2019 9:30 AM PDTAfter reviewing DEXA scan from 04/09/19 it appe ars the patient has severe osteoporosis with a T score of -3.9 in the lumbar spine and -3.2 in right femoral neck. This puts her at major fracture risk of 27.8% and hip fx risk of 12.8%. Patient has had 5 major steroid injections in the past 12 months. Looking forward, she may have 1 injection every 6 months. Capo Bermudez PA-C, 04/27/19 documented in this en counter Plan of [...] | | | | | | [place] [id number] | | | | | | [phone] | | | | | | | [...]
--- OUTSIDE RECORDS SUMMARY | ~2019-10-18 | XMS | Encounter Summary ---
Demographics + + + | Address | [address] | | | [place] [address] | + + + | Home Phone | | + + + | Preferred Language | Unknown | + + + | Marital Status | | + + + | Restorationism Affiliation | 1027 | + + + | Race | Unknown | + + + | Ethnic Group | Unknown | + + + Author + + + | Author | [facility] | | | and [place] | + + + | Organization | [facility] | | [...] Team Providers + +------+ + | Care Trade Manager Name | Role | Phone | + +------+ + | Jesus Mijares MD | PCP | | + +------+ + Encounter Details +--------+ + + + + | Date | Type | Department | Care Team | Description | +--------+ + + + + | 05/14/ | Orders Only | [facility] | Veto Neri, | | | 2016 | | NEPHROLOGY [place] | PRACTICING MD ANESTHESIOLOGIST [address] | | | | [address] | [address] | | | | | [address] [place], [place] | [place], [place] | | | | | [address] | [address] | | | | | [phone] | [phone] | | | | | | | [...] | | | | | | [place] [address] | | | | | | [phone] | | | | | | | [...] | | | LAB | | | [place] | | | | | + + [...]
--- OUTSIDE RECORDS SUMMARY | ~2019-10-18 | XMS | Encounter Summary ---
Demographics + + + | Address | [address] | | | [place] [address] | + + + | Home Phone [...] Team Providers + +------+ + | Care Cnc Set Up Operator Name | Role | Phone | [...] | Lumbar | Bogdanowicz, | [address] | | | | | radiculopath | Sheryl, | [place], | | | | | y Right hip | PA-C [address] | [place] | | | | | pain | [address] | [address] | | | | | Procedures | [place], [place] | Phone: | | | | | [place] | [address] | [phone] | | | | | Joint | Phone: | Fax: | | | | | Injection | [phone] | [phone] | | | | | Right SC | Fax: | | | | | | INJECT | [phone] | | | | | | ANES/STEROID | | | | | | | FORAMEN | | | | | | | LUMBAR/SACRA | | | | | | | L W IMG | | | | | | | GUIDE ,1 | | | | | | | LEVEL SC | | | | | | | [...] | | | | | ADD ON SC | | | | | | | [...] | | | | | Lumbar | Christiano, | [address] | | | | | radiculopath | Sheryl, | [place], | | | | | y Right hip | PA-C [address] | [place] | | | | | pain | [address] | [address] | | | | | Procedures | [place] | Phone: | | | | | [place] | [address] | [phone] | | | | | Joint | Phone: | Fax: | | | | | Injection | [phone] | [phone] | | | | | Right SC | Fax: | | | | | | INJECT | [phone] | | | | | | ANES/STEROID | | | | | | | FORAMEN | | | | | | | LUMBAR/SACRA | | | | | | | L W IMG | | | | | | | GUIDE ,1 | | | | | | | LEVEL SC | | | | | | | [...] | | | | | ADD ON SC | | | | | | | [...] | +--------+ + + + + | 12/24/ | Hospital | [facility] | Christiano, | Bursitis, hip, right | | 2017 | Encounter | MED CTR XRAY [address] | GAMALIEL Saucedo [address] | (Primary Dx); | | | | [address] [place] | [address] [place], | Lumbar | | | | [place] [address] | [place] [address] | radiculopathy; | | | | [phone] | [phone] | Spinal stenosis of | | | | | | lumbar region - | | | | | [employer], [facility] | L3/L4, adjacent | | | | [...] +---------+ + + | Blood Pressure | 173/74 | 12/24/2016 3:51 PM | | | | | PDT | | + +---------+ + + | Pulse | 55 | 12/24/2016 3:51 PM | | | | | PDT [...] | | | | | | [place] [address] | | | | | | [phone] | | | | | | | [...] + | [place] ASPIRATION | Routin | 12/24/2016 | Trochanteric | Results for this | | INJECTION MAJOR | e | 3:25 PM | bursitis of right | procedure are in the | | JOINT RIGHT | | PDT | hip | results section. | + +--------+ + + + | [place] EPIDURAL STEROID | Routin | 12/24/2016 | Lumbar | Results for this | | INJECTION LUMBAR | e | 3:25 PM | radiculopathy | procedure are in the | | TRANSFORAMINAL | | PDT | Spinal stenosis of | results section. | | | | | lumbar region - | | | | | | L3/L4, 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 | | + +--------+ + + + documented in this encounter Results [place] Joint Injection Right (12/24/2016 3:25 PM PDT) + + | Specimen | + + | | + + + + + | Narrative | Performed At | + + + | 12/24/2016 B[facility] Ster[facility] In[facility] | [facility] | | and Right Trochanteric Bursa Injection Diagnosis: Lumbar | [facility] | | radiculopathy and Trochanteric Bursitis ICD-10 Code M54.16 and | [facility] | | M70.61 Rebecca Castillo presents [...] + + | Performing | Address | City[facility] | Phone Number | | Organization | | | | + + + + + | [facility] | [address] | [place] | [phone] | | [facility] | | [address] | | | - IMAGING | | [...] Trochanteric Bursa Injection Diagnosis: Lumbar | [facility] | | radiculopathy and Trochanteric Bursitis ICD-10 Code M54.16 and [facility] | | M70.61 Rebecca Castillo presents [...] | + + + + + | [facility] | [address] | [place], [place] | [phone] | | [facility] | | [address] | | | - IMAGING | | | | + + + + + documented in this encounter Visit Diagnoses + + | Diagnosis | + + | Bursitis, hip, right - Primary | + + | Lumbar radiculopathy Thoracic [...] +-------+------+------+ | betamethasone (CELESTONE | Given | 12/25/19 | 12 mg | | | | SOLUSPAN) injection 12 mg 12 mg, | | 17 3:40 | | | | | Other, ONCE, 12/24/16 at | | PM PDT | | | | | 1545, For 1 dose, Shake well. Not | | | | | | | for IV use., | | | | | | + +--------+ +-------+------+------+ +---+---+ | | | +---+---+ + +-------+ +-------+---+---+ | iohexol (OMNIPAQUE 300) 300 | Given | 12/25/19 | 4 mLs | | | | mg/mL injection 4 mL 4 mL, | | 17 3:35 | | | | | Other, ONCE, 12/24/16 at 1545, | | PM PDT | | | | | For 1 dose | | | | | | + +-------+ +-------+---+---+ +---+---+ | | | +---+---+ + +-------+ +-------+---+---+ | lidocaine (PF) 1% injection 2 | Given | 12/25/19 | 2 mLs | | | | mL 2 mL, Other, ONCE, Mon | | 17 3:40 | | | | | 12/24/16 at 1545, For 1 dose | | PM PDT | | | | + +-------+ +-------+---+---+ +---+---+ | | | +---+---+ + +-------+ +-------+---+---+ | lidocaine 1% injection 2 mL 2 | Given | 12/25/19 | 2 mLs | | | | mL, Other, ONCE, 12/24/16 at | | 17 3:50 | | | | | 1545, For 1 dose | | PM PDT | | | | + +-------+ +-------+---+---+ +---+---+ | | | +---+---+ + +-------+ +--------+---+---+ | lidocaine buffered 1% injection | Given | 12/25/19 | 10 mLs | | | | 10 mL 10 mL, Other, ONCE, Mon | | 17 3:30 | | | | | 12/24/16 at 1545, For 1 dose | | PM PDT | | | | + +-------+ +--------+---+---+ +---+---+ | | | +---+---+ + +-------+ +-------+---+---+ | lidocaine buffered 1% injection | Given | 12/25/19 | 5 mLs | | | | 5 mL 5 mL, Other, ONCE, Mon | | 17 3:45 | | | | | 12/24/16 at 1545, For 1 dose | | PM PDT | | | | + +-------+ +-------+---+---+ +---+---+ | | | +---+---+ + +-------+ +-------+---+---+ | triamcinolone acetonide | Given | 12/25/19 | 40 mg | | | | (KENALOG-40) 40 mg/mL injection | | 17 3:50 | | | | | 40 mg 40 mg, Intra-articular, | | PM PDT | | | | | ONCE, 12/24/16 at 1545, For 1 | | | | | | | dose, Shake well. Not for IV | | | | | | | use., | | | | | | + +-------+ +-------+---+---+ +---+---+ | | | +---+---+ documented in this encounter"
--- OUTSIDE RECORDS SUMMARY | ~2019-10-18 | XMS | Encounter Summary ---
Demographics + + + | Address | [address] | | | [place] [address] | + + + | Home Phone | | + + + | Preferred Language | Unknown | + + + | Marital Status | | + + + | Restorationist Affiliation | 1027 | + + + [...] Team Providers + +------+ + | Care Buffing Machine Operator Semiautomatic Name | Role | Phone | + [...] | | | [place], | [address] | | | | | Trochanteric | Nilson Jensen MD | [place], | | | | | bursitis of | [address] | [place] | | | | | right hip | [place] | [address] | | | | | Procedures | [place], [place] | Phone: | | | | | [place] | [address] | [phone] | | | | | Joint | Phone: | Fax: | | | | | Injection | [phone] | [phone] | | | | | Right | Fax: | | | | | | | [phone] | | +--------+--------+ + + + + Encounter Details +--------+ + + + + | Date | Type | Department | Care Team | Description | +--------+ + + + + | 04/29/ | Orders Only | [facility] [place] | Nilson Chaudhry | Trochanteric | | 2017 | | PHYSIATRY [address] | TMD [address] | bursitis of right | | | | [place], | [place], [place] | hip (Primary Dx) | | | | [place] [address] | [address] | | | | | [phone] | | | +--------+ + + + [...] | | | | | | [place] [address] | | | | | | [phone] | | | | | | | [...] encounter Results [place] Joint Injection Right (04/29/2017 1:37 PM PDT) + + | Specimen | + + | | + + + + ---+ | Narrative | Performed At | + + ---+ | | [facility] | | 04/29/2017 Bilateral Transforaminal Epidural Steroid Injections and | [facility] | | Bilateral Trochanteric Bursa Injections Diagnosis: Lumbar | [facility] | | radiculopathy and Trochanteric Bursitis ICD-10 [...] + | [facility] | [address] | [place] | [phone] | | [facility] | | [address] | | | - IMAGING | | | | + + + + + documented in this encounter Visit Diagnoses + + | Diagnosis | + + | Trochanteric bursitis of right hip - Primary Enthesopathy of hip region | + + documented in this encounter Additional Health Concerns + + + + | Infection | Noted Time | Resolved Time | + + + + | Methicillin-resistant Staphylococcus aureus | 03/20/2017 12:00 AM | | | | PDT | | + + + + documented as of this encounter"
--- OUTSIDE RECORDS SUMMARY | ~2019-10-18 | XMS | Encounter Summary ---
Demographics + + + | Address | [address] | | | [place] [address] | + + + | Home Phone [...] Team Providers + +------+ + | Care Development Executive Name | Role | Phone | + [...] + + | 08/27/ | Procedure | [facility] | January, | Cardiac pacemaker in | | 2019 | visit | [facility] [place] | [address] | situ (Primary Dx) | | | | [address] | [address] [place], | | | | | [place], [place] | [place] [address] | | | | | [address] | [phone] | | | | | [phone] | | | +--------+ + + + [...] | | | | | | [place] [address] | | | | | | [phone] | | | | | | | [...]
--- OUTSIDE RECORDS SUMMARY | ~2019-10-18 | XMS | Encounter Summary ---
Demographics + + + | Address | [address] | | | [place] [address] | + + + | Home Phone | | + + + | Preferred Language | Unknown | + + + | Marital Status | | + + + | Evangelical Affiliation | 1027 | + + + | Race | Unknown | + + + | Ethnic Group | Unknown | + + + Author + + + | Author | [facility] | | | and [place] | + + + | Organization | [facility] | | | and [...] Team Providers + +------+ + | Care Chemist Name | Role | Phone | + [...] Procedure | [facility] [place] | Nilson Chaudhry | Carpal tunnel | | 2012 | visit | PHYSIATRY [address] | TMD [address] | syndrome, bilateral | | | | [place], | [place], [place] | (Primary Dx) | | | | [place] [address] | [address] | | | | | [phone] | | | +--------+ + + + [...] Chaudhry MD - 01/26/2013 10:27 AM PDT [facility] Mus[facility], Sports [facility] Spine, Physiatry [address] [place] [address] Test Date: 01/26/2013 Patient Name: Rebecca Castillo : 1940 Physician: Nilson Chaudhry MD MR #: [id number] Sex: Female Referring Physician: Jarad Mitchell MD [...] hesitate to call. Nilson Chaudhry MD Diplomate, [place] [employer] and Rehabilitation. documented [...] | | | | | | [place] [address] | | | | | | [phone] | | | | | | | [...]
--- OUTSIDE RECORDS SUMMARY | ~2019-10-18 | XMS | Encounter Summary ---
Demographics + + + | Address | [address] | | | [place] [address] | + + + | Home Phone [...] + + | Author | [facility] | | | and [place] | + + + | Organization | [facility] | | | [...] Team Providers + +------+ + | Care Fisher Name | Role | Phone | + +------+ + | Jesus Mijares MD | PCP | | + +------+ + Reason for Visit + + + | Reason | Comments | + + + | Follow-up | 3 months | + + + Encounter Details +--------+---------+ + + + | Date | Type | Department | Care Team | Description | +--------+---------+ + + + | 07/14/ | Office | [facility] | Rajendra Fowler, | Sick sinus syndrome | | 2019 | Visit | CARDIOLOGY [place] | MD Neal [address] | ([facility]) (Primary Dx); | | | | [address] | [place], | Cardiac pacemaker in | | | | [address] | [place] [address] | situ; Chronic | | | | [place], [place] | [phone] | diastolic heart | | | | [address] | | failure ([facility]); | | | | [phone] | | Paroxysmal atrial | | | | | | fibrillation ([facility]); | | | | | | Paroxysmal atrial | | | | | | flutter ([facility]); PSVT | | | | | | (paroxysmal | | | | | | supraventricular | | | | | | tachycardia) ([facility]); | | | | | | Mixed | | | | | | hyperlipidemia; | | | | | | Essential | | | | | | hypertension; Pedal | | | | | | edema | +--------+---------+ + + + Social History [...] + + + | Blood Pressure | 122/74 | 07/14/2019 2:45 PM | | | | | PDT | | + + + + + | Pulse | 78 | 07/14/2019 2:45 PM | | | | | PDT | | + + + + + | Temperature | - | - | | + + + + + | Respiratory Rate | - | - | | + + + + + | Oxygen Saturation | 94% | 07/14/2019 2:45 PM | | | | | PDT | | + + + + + | Inhaled Oxygen | - | - | | | Concentration | | | | + + + + + | Weight | 69.9 kg (154 lb 3.2 | 07/14/2019 2:45 PM | | | | oz) | PDT | | + + + + + | Height | 162.6 cm (5' 4") | 07/14/2019 2:45 PM | | | | | PDT | | + + + + + | Body Mass Index | 26.47 | 07/14/2019 2:45 PM | | | | | PDT | | + + + + + documented in this encounter Progress Notes Rajendra Fowler MD - 07/14/2019 2:30 PM PDTFormatting of this note might be different fro m the original. Subjective: Patient ID: Rebecca Castillo is a 79 y.o. female. Patient's medications, allergies, past medical, surgical, social and family histories were obtained and reviewed as appropriate. HPI Mrs. Castillo returned to the office for a follow-up visit for her paroxysmal atrial fibrillat ion/flutter, SSS, pedal edema due to chronic diastolic dysfunction and labile hypertension. Her home BP readings range from 121/72 to 190/105, with several DBP readings > 100 mm Hg, a nd most readings are elevated, with HR 59 - 115. I increased her Losartan dose to 50 mg yadi ly. She is on warfarin due to the cost of the newer oral anticoagulants, followed at the [facility] to monitor her INR for paroxysmal atrial fibrillation and atrial flutter, which she noted today, but it seems to have settled down and she appears to be in sinus rhythm or paced on examination at this time. She was seen in the [facility] ER 06/23/19 after an accidental trip and fall in her garden, due to uneven ground, which showed fractures of the ninth and 10th left ribs. The pain has almost completely subsided now. Her (Biotronik) pacemaker check 06/11/19 showed battery capacity 80%, 81% atrial pacing, 51% ventricular pacing, with an atrial fibrillation burden of 3%, which is not unusual for her. Her rate control appears to be adequate. Her BP is very labile, as noted above. She will continue to be followed in our pacemaker clinic, which will allow me to track her atrial arr hythmias. ROS CONSTITUTIONAL: History of morbid obesity. She has lost 10 lbs in the last year, nearly 110 lb weight loss since 2003, denies recent fever, chills, night sweats NEUROLOGIC: No history of CVA, TIA, has a remote h/o migraines, denies seizures, 1 episode of Syncope around 09/27, cause unknown, did not seek medical attention. No numbness, tinglin g, paresthesias, c/o dizziness, lightheadedness when she bends over. She notes her "balance is off", needs a cane or walker to ambulate. EYES: No amaurosis, diplopia, recent visual changes, had surgery for a right cataract, no h /o glaucoma ENT: bilateral hearing loss, left ear complete, right "75%" loss, tinnitus, epistaxis, occa sional dysphagia (meat especially) since hiatal hernia surgery ENDOCRINE: Type II Diabetes mellitus. Hyperuricemia. No history of thyroid disorders or oth er endocrine problems. No excessive hunger, thirst. PULMONARY: No dyspnea, orthopnea, Paroxysmal Nocturnal Dyspnea. No history of asthma, emphy sema. Denies significant snoring, daytime somnolence. Sleep is refreshing. CARDIOVASCULAR: --- Spuriously history of an old MT diagnosed by EKG in 2002, with a subseq uent normal coronary angiogram, and no evidence of myocardial infarction on her nuclear stre ss test 03/29/15. History of Paroxysmal Atrial fibrillation. Digoxin toxicity 03/29/15. Essent ial hypertension. Hyperlipidemia. Intermittent episodes of noncardiac "stabbing" chest pain. She has occasional palpitations. No history of heart murmur, rheumatic fever. She has sever e Pedal edema due to chronic Diastolic Heart Failure, no claudication symptoms. -- Pacemaker Implantation (03/20/17): Biotronik Etrinsa 8 , model 170713,[id number]; RV Lead - Setrox S-53 cm, model 436845, s#[id number] (in the RV septum, fpc between the ape x and RVOT); RA Lead - Medtronic model 5076-45 -- 2 Week Event Recorder (12/20/16): predominantly sinus bradycardia, ave HR 52 bpm,, with pa roxysmal atrial fibrillation/flutter with RVR, (overall burden 1.93%), and episodes of PSVT, rare PVCs, PACs. The 2 pauses, 4.8 seconds duration, only occurred at the time of conversio n from atrial flutter to sinus rhythm. -- 30 Day Event Recorder (starting 04/13/15): paroxysmal atrial fibrillation and atrial flutt er, present for 76% of the time on with a rapid ventricular response, and an average VR of 1 05 bpm. The 7 reported symptoms did not clearly correspond to any notable occurrences in the setting of these atrial arrhythmias. NSR 24%. -- Echo (03/29/15): EF 65-70%, mild concentric LVH, grade 3 diastolic dysfunction. The right ventricle is mildly enlarged, with normal function. Mild LAE, moderate DEVANTE. Mild-moderate M R, moderate TR. Borderline pulmonary hypertension, RVSP = 36.8 -- Lexiscan Myoview stress test (03/29/15): Normal perfusion, EF 63% -- Lipid panel (09/19/18 - on atorvastatin 20 mg): TC-132, LDL-61, HDL-31, TG-203, normal LF Ts // (09/11/17 - on atorvastatin 20 mg): TC-130, LDL-53, HDL-39, TG-139 // (11/01/15 ): TC-88, LDL-34, HDL-36.5, TG-89 GASTROINTESTINAL: No recent abdominal pain, nausea, vomiting or diarrhea. Denies PUD, melen a, hematochezia, hepatitis. GENITOURINARY: Stage III chronic kidney disease. No dysuria, hematuria, urinary urgency, he sitancy. HEMATOLOGY/ONCOLOGY: No blood dyscrasias, no h/o DVT, PE. Mild easy bruisability, without b leeding. No history of anemia, transfusions. No history of cancer. MUSCULOSKELETAL: No myalgias, complains of right shoulder pain, worse with elevation, no ot her significant arthralgias. Degenerative lumbar disc disease. Right knee has torn ligaments . She has Osteoporosis. No history of rheumatologic or autoimmune diseases. CUTANEOUS: No rashes, pruritus, lesions. PSYCHIATRIC: Reactive depression from her 's , no anxiety or other psychiatric problems. Past Medical History: Diagnosis Date Carpal tunnel syndrome, bilateral 01/26/2013 CHF (congestive heart failure) ([facility]) 07/31/2018 Chronic back pain 06/24/2014 Chronic kidney disease 11/2015 Stage 3 Depression 03/20/2017 Diabetes mellitus ([facility]) Facet arthritis of lumbar region 03/06/2013 GERD (gastroesophageal reflux disease) Hyperlipidemia 03/28/2015 Hypertension Irregular heartbeat Lumbar scoliosis 08/09/2014 Migraine headache Myocardial infarction ([facility]) Neuropathy Nontraumatic tear of right supraspinatus tendon 01/03/2018 Sacroiliitis, not elsewhere classified ([facility]) 09/11/2016 Trochanteric bursitis of right hip 03/06/2016 Ulcer Past Surgical History: Procedure Laterality Date APPENDECTOMY BREAST SURGERY 1961 Benign tumor CHOLECYSTECTOMY COLONOSCOPY 2001 ? EAR SURGERY 2001 EYE SURGERY 2013 Cateract removed HYSTERECTOMY 1996 SPINE SURGERY 2013 fusion TONSILLECTOMY TUMOR REMOVAL stomach tumor removed Family History Problem Relation Age of Onset Arthritis Mother Hands High blood pressure Brother High cholesterol Brother from stroke age 73 Social History Socioeconomic History Marital status: Spouse name: Not on file Number of children: Not on file Years of education: Not on file Highest education level: Not on file Social Needs Financial resource strain: Not on file Food insecurity - worry: Not on file Food insecurity - inability: Not on file Transportation needs - medical: Not on file Transportation needs - non-medical: Not on file Occupational History Not on file Tobacco Use Smoking status: Never Smoker Smokeless tobacco: Never Used Substance and Sexual Activity Alcohol use: No Drug use: No Sexual activity: Never Other Topics Concern Not on file Social History Narrative Not on file Allergies Allergen Reactions Sitagliptin Rash Penicillin V Potassium Not Noted Sulfa Antibiotics Not Noted Intolerance No active intolerances/contraindications Current Outpatient Medications Medication Sig Dispense Refill acetaminophen (TYLENOL) 500 mg tablet Take 500 mg by mouth every 6 hours as needed for Pain. allopurinol (ZYLOPRIM) 100 mg tablet TAKE ONE TABLET BY MOUTH ONCE DAILY amitriptyline (ELAVIL) 10 mg tablet Take 10 mg by mouth nightly. atorvaSTATin (LIPITOR) 20 mg tablet Take 20 mg by mouth. baclofen (LIORESAL) 20 mg tablet cephalexin (KEFLEX) 500 mg capsule Take 500 mg by mouth 4 times daily. cholecalciferol (CHOLECALCIFEROL) 1,000 units capsule Take 1,000 Units by mouth Daily. cloNIDine (CATAPRES) 0.1 mg tablet Take 0.1 mg by mouth 3 times daily. cyclobenzaprine (FLEXERIL) 10 mg tablet Take 10 mg by mouth 3 times daily as needed. digoxin (LANOXIN) 125 mcg tablet Take 125 mg by mouth nightly. 0 digoxin (LANOXIN) 50 mcg/mL solution Take 0.25 [...] by mouth 3 times daily. traZODone (DESYREL) 100 mg tablet Take 100 mg by mouth nightly. 3 warfarin (COUMADIN) 4 MG tablet TAKE 1 TABLET BY MOUTH ONCE DAILY OR DIRECTED BY [facility] warfarin (COUMADIN) 6 MG tablet Take 6 mg by mouth Daily. 99 No current facility-administered medications for this visit. Objective: BP 122/74 | Pulse 78 | Ht 1.626 m (5' 4") | Wt 69.9 kg (154 lb 3.2 oz) | SpO2 94% | BM I 26.47 kg/m PHYSICAL EXAM GENERAL: Moderately obese elderly woman. Well developed, well nourished, in no distress. Ap pears approximately stated age. HEENT: Normocephalic, atraumatic. EYES: Well-healed right iridectomy. PERRL, sclerae anicteric, no xanthelsasmas MOUTH: Oral mucosae moist, dentition adequate, no lesions noted NECK: No JVD, lymphadenopathy, thyromegaly, bruits. Carotid pulses are 2+ bilaterally LUNGS: Clear bilaterally, with no rales, rhonchi or wheezing noted, respirations unlabored HEART: Left-sided pacemaker incision is healing, within normal pocket. Nondisplaced PMI, m ildly bradycardic rate, regular rhythm, S1, S2 normal. No murmurs, rubs or gallops noted. ABDOMEN: Soft, nontender, no organomegaly, masses or bruits. Bowel sounds are normal in all 4 quadrants. The abdominal aortic pulsation is not palpable. EXTREMITIES: 2+ pitting edema to just below the knees bilaterally, left > right. A large li near scar is present in the left lower leg, medial area from prior injury. Radial pulses 2+ bilaterally. Femoral pulses are 2+ bilaterally without bruits. DP and PT pulses are 2+ bilat erally. SKIN: Warm and dry, capillary refill is normal, no lesions. There is marked pretibial venou s stasis pigmentation. MUSCULOSKELETAL: kyphosis, dextroscoliosis, walks with difficulty, hunched over her rolling walker, due to back pain. NEUROLOGIC: Awake, alert and oriented x 3. No focal motor deficits. Head and jaw, bilateral arm tremors. PSYCHIATRIC: Appropriate, affect appears flat Assessment: Rebecca was seen today for follow-up. Diagnoses and all orders for this visit: Sick sinus syndrome (HCC) Cardiac pacemaker in situ Chronic diastolic heart failure (HCC) Paroxysmal atrial fibrillation (HCC) Paroxysmal atrial flutter (HCC) PSVT (paroxysmal supraventricular tachycardia) (HCC) Mixed hyperlipidemia Essential hypertension Pedal edema Plan: Increase losartan to 50 mg daily, follow-up in approximately 3 months documented in this encounter Plan of Treatment +--------+ + + + + | Date | Type | Specialty | Care Team | Description | +--------+ + + + + | 11/17/ | Office | Cardiology | Rajendra Fowler, | | | 2019 | Visit | | MD [address] | | | | | | [place], | | | | | | [place] [address] | | | | | | [phone] | | | | | | | [...] Sinoatrial node dysfunction | + + | Cardiac pacemaker in situ | + + | Chronic diastolic heart failure (HCC) Chronic diastolic heart failure | + + | Paroxysmal atrial fibrillation ([facility]) Atrial fibrillation | + + | Paroxysmal atrial flutter ([facility]) Atrial flutter | + + | PSVT (paroxysmal supraventricular tachycardia) ([facility]) Paroxysmal supraventricular | | tachycardia | + + | Mixed hyperlipidemia | + + | Essential hypertension Unspecified essential hypertension | + + | Pedal edema Edema | + + documented in this encounter Additional Health Concerns + + + + | Infection | Noted Time | Resolved Time | + + + + | Methicillin-resistant Staphylococcus aureus | 03/20/2017 12:00 AM | | | | PDT | | + + + + documented as of this encounter
--- OUTSIDE RECORDS SUMMARY | ~2019-10-18 | XMS | Encounter Summary ---
Demographics + + + | Address | [address] | | | [place] [address] | + + + | Home Phone [...] Providers + +------+ + | Care Road Oiling Truck Driver Name | Role | Phone | + +------+ + | Jesus Mijares MD | PCP | | + +------+ + Encounter Details +--------+ + + + + | Date | Type | Department | Care Team | Description | +--------+ + + + + | 09/12/ | Orders Only | [facility] | Goel[place], | | | 2017 | | CARDIOLOGY [place] | [address] | | | | | [address] | [address] [place], | | | | | [place], [place] | [place] [address] | | | | | [address] | [phone] | | | | | [phone] | | | +--------+ + + + [...] | | | | | | [place] [address] | | | | | | [phone] | | | | | | | [...]
--- OUTSIDE RECORDS SUMMARY | ~2019-10-18 | XMS | Encounter Summary ---
Demographics + + + | Address | [address] | | | [place] [address] | + + + | Home Phone | | + + + | Preferred Language | Unknown | + + + | Marital Status | | + + + | Rastafari Affiliation | 1027 | + + + | Race | Unknown | + + + | Ethnic Group | Unknown | + + + Author + + + | Author | [facility] | | | and [place] | + + + | Organization | [facility] | | | and [...] Team Providers + +------+ + | Care Rv Repair Technician Name | Role | Phone | + [...] 2015 | | PHYSIATRY [address] | [employer] [address] | lumbosacral neuritis | | | | [place], | | or radiculitis, | | | | [place] [address] | | unspecified (Primary | | | | [phone] | | Dx) | +--------+ + + [...] | | | | | | [place] [address] | | | | | | [phone] | | | | | | | [...] presents to the fluoroscopy suite for fluoroscopically-guided [facility] | | bilateral L4-L5 transforaminal [...] + | [address] | [address] | [place], [place] | [phone] | | [facility] | | [address] | | | - IMAGING | | | | + + + + + documented in this encounter Visit Diagnoses + + | Diagnosis | + + | Thoracic or lumbosacral neuritis or radiculitis, unspecified - Primary | + + documented in this encounter"
--- OUTSIDE RECORDS SUMMARY | ~2019-10-18 | XMS | Encounter Summary ---
Demographics + + + | Address | [address] | | | [place] [address] | + + + | Home Phone [...] Team Providers + +------+ + | Care Track Grinder Operator Name | Role | Phone | [...] + + | 09/11/ | Office | [facility] | [place], | Lumbar radiculopathy | | 2016 | Visit | PHYSIATRY [address] | [place] [address] | (Primary Dx); | | | | [place], | [address] [place], | Trochanteric | | | | [place] [address] | [place] [address] | bursitis of right | | | | [phone] | [phone] | hip; DEGENERATIVE | | | | [...] in [address] Yong Pena in [place], use of hydrocodone 3 x/day and flexeril, [...] has no apparent deficits with short or terminal operator memory. 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 Unfortunately she cont inues to have significant [...] | | | | | | [place] [address] | | | | | | [phone] | | | | | | | [...] Castillo presents to the fluoroscopy suite for [facility] | | fluoroscopically-guided bilateral L4-L5 transforaminal epidural [...] ST. | [address] | [place], [place] | [phone] | | [facility] | | [address] | | | - IMAGING | | [...] M46.1 Rebecca Castillo presents to the | [facility] | | fluoroscopy suite for a fluoroscopically guided right sacroiliac [facility] | | joint steroid injection as part [...] [address] | [place] | [phone] | | [facility] | | [address] | | | - IMAGING | | [...]
--- OUTSIDE RECORDS SUMMARY | ~2019-10-18 | XMS | Encounter Summary ---
Demographics + + + | Address | [address] | | | [place] [address] | + + + | Home Phone | | + + + | Preferred Language | Unknown | + + + | Marital Status | | + + + | Jew Affiliation | 1027 | + + + | Race | Unknown | + + + | Ethnic Group | Unknown | + + + Author + + + | Author | [facility] | | | and [place] | + + + | Organization | [facility] | | [...] Team Providers + +------+ + | Care Plating Machine Operator Name | Role | Phone | + +------+ + | Jesus Mijares MD | PCP | | + +------+ + Encounter Details +--------+ + + + + | Date | Type | Department | Care Team | Description | +--------+ + + + + | 01/05/ | Orders Only | [facility] | Ino Wilson MD | | | 2015 | | NEPHROLOGY [place] | [address] [place] | | | | | [address] [place] | [address] [place], [place] | | | | | [address] [place], [place] | [address] | | | | | [address] | | | | | | [phone] | | | +--------+ + + + [...] | | | | | | [place] [address] | | | | | | [phone] | | | | | | | [...]
--- OUTSIDE RECORDS SUMMARY | ~2019-10-18 | XMS | Encounter Summary ---
Demographics + + + | Address | [address] | | | [place] [address] | + + + | Home Phone | | + + + | Preferred Language | Unknown | + + + | Marital Status | | + + + | Anabaptism Affiliation | 1027 | + + + [...] Team Providers + +------+ + | Care Cheese Packer Name | Role | Phone | + +------+ + | Jesus Mijaers MD | PCP | | + +------+ [...] | Lumbar | Bogdan[place], | [address] | | | | | radiculopath | [place], | [place], | | | | | y Right hip | PA-C [address] | [place] | | | | | pain | [address] | [address] | | | | | Procedures | [place], [place] | Phone: | | | | | [place] | [address] | [phone] | | | | | Joint | Phone: | Fax: | | | | | Injection | [phone] | [phone] | | | | | Right LA | Fax: | | | | | | INJECT | [phone] | | | | | | ANES/STEROID | | | | | | | FORAMEN | | | | | | | LUMBAR/SACRA | | | | | | | L W IMG | | | | | | | GUIDE ,1 | | | | | | | LEVEL LA | | | | | | | [...] | | | | | ADD ON LA | | | | | | | [...] | Lumbar | [place], | [address] | | | | | radiculopath | [place], | [place], | | | | | y Right hip | PA-C [address] | [place] | | | | | pain | [address] | [address] | | | | | Procedures | [place] | Phone: | | | | | [place] | [address] | [phone] | | | | | Joint | Phone: | Fax: | | | | | Injection | [phone] | [phone] | | | | | Right LA | Fax: | | | | | | INJECT | [phone] | | | | | | ANES/STEROID | | | | | | | FORAMEN | | | | | | | LUMBAR/SACRA | | | | | | | L W IMG | | | | | | | GUIDE ,1 | | | | | | | LEVEL LA | | | | | | | [...] | | | | | ADD ON LA | | | | | | | [...] + + | 12/24/ | Hospital | [facility] | [place], | Bursitis, hip, right | | 2017 | Encounter | MED CTR XRAY [address] | [place] [address] | (Primary Dx); | | | | [address] [place] | [address] [place], | Lumbar | | | | [place] [address] | [place] [address] | radiculopathy; | | | | [phone] | [phone] | Spinal stenosis of | | | | | | lumbar region - | | | | | [employer] Making [employer] [facility] | L3/L4, adjacent | | | [...] | | | | | | [place] [address] | | | | | | [phone] | | | | | | | [...] 12/24/2016 Bilateral Transfor[facility]inal Epidural Ster[facility] Injections | [facility] | | and Right Trochanteric Bursa Injection Diagnosis: Lumbar | [facility] | | radiculopathy and Trochanteric Bursitis ICD-10 Code M54.16 and | [facility] | | M70.61 Rebecca Castillo presents [...] + + | Performing | Address | City/State[facility] | Phone Number | | Organization | | | | + + + + + | [address] | [address] | [place] | [phone] | | [facility] | | [address] | | | - IMAGING | | [...] and Trochanteric Bursitis ICD-10 Code M54.16 and [facility] | | M70.61 Rebecca Castillo presents to [...] ST. | [address] | [place], [place] | [phone] | | [facility] | | [address] | | | - IMAGING | | [...]
--- OUTSIDE RECORDS SUMMARY | ~2019-10-18 | XMS | Encounter Summary ---
Demographics + + + | Address | [address] | | | [place] [address] | + + + | Home Phone [...] Providers + +------+ + | Care Manager Icu Name | Role | Phone | + +------+ + | Jesus Mijares MD | PCP | | + +------+ + Reason for Visit + + + | Reason | Comments | + + + | New Patient | | + + + | Shoulder Pain | Bilateral | + + + Evaluate & Treat (Routine) + + + [...] | | | | | both | [address] | [place], | | | | | shoulders | [place], | [place] | | | | | Chronic left | [place] [address] | [address] | | | | | shoulder | Phone: | Phone: | | | | | pain | [phone] | [phone] | | | | | | Fax: | Fax: | | | | | | [phone] | [phone] | + + + + + + + Encounter Details +--------+---------+ + + + | Date | Type | Department | Care Team | Description | +--------+---------+ + + + | 03/30/ | Office | [facility] | Capo Bermudez, | Impingement syndrome | | 2019 | Visit | ORTHOPEDIC SURGERY | PA-Bigg [address] | of left shoulder | | | | [address] [facility] | [address] | (Primary Dx) | | | | [place], [place] | [place] [address] | | | | | [address] | [phone] | | | | | [phone] | | | | | | | Rancho Aldrich | | | | | | MD [address] | | | | | | [facility] | | | | | | [place] [address] | | | | | | [phone] | | | | | | | | +--------+---------+ + + + Social History [...] Weight | 72.6 kg (160 lb) | 03/30/2019 10:17 AM | | | | | PDT | | + + + + + | Height | 162.6 cm (5' 4") | 03/30/2019 10:17 AM | | | | | PDT | | + + + + + | Body Mass Index | 27.46 | 03/30/2019 10:17 AM | | | | | PDT | | + + + + + documented in this encounter Patient Instructions Patient Instructions Rancho Aldrihc MD - 03/30/2019 10:00 AM PDT Nonsurgical Treatment Options for Shoulder Impingement Rest is logan to healing your shoulder. If an activity hurts, don t do it. Otherwise, you m ay prevent healing and increase pain. Your shoulder needs active rest. This means avoiding o verhead movements and activities that cause pain. But don't stop using your shoulder complet daxa. This can cause it to stiffen or freeze. In addition to rest, impingement can be t reated a number of ways. Your healthcare provider can help you find which of these is best f or you. A physical therapist can also help you with exercises specific for your condition. Listed below are several treatment options that may be considered: Ice Ice reduces inflammation and relieves pain. Apply an ice pack for about 15 minutes, 3 times a day. A pillow placed under your arm may help make you more comfortable. To make an ice pa ck, put ice cubes in a plastic bag that seals at the top. Wrap the bag in a clean, thin towe l or cloth. Never put ice or an ice pack directly on the skin. Heat Heat may soothe aching muscles, but it won t reduce inflammation. Use a heating pad or ta ke a warm shower or bath. Do this for 15 minutes at a time. Don't use heat when pain is constant. Heat is best when used for warming up before an activ ity. You can also switch between ice and heat. Medicine To relieve pain and inflammation, try lliu-qzu-xdbshan pain relievers, such as acetaminophe n or ibuprofen.Or, your healthcare provider may prescribe medicines. Ask how and when to t travis your medicine. Be sure to follow all instructions you re given. Electrical stimulation Electrical stimulation can help reduce pain and swelling. Your healthcare provider attaches small pads to your shoulder. A mild electric current then flows into your shoulder. You may feel tingling. Butyou should not feelpain. Ultrasound Ultrasound can help reduce pain. First a slick gel or medicated cream is applied to your sh oulder. Then your healthcare provider places a small device over the area. The device uses s ound waves to loosen shoulder tightness. This treatmentshould bepain-free. Injection therapy Injection therapy may be used to help diagnose your problem. It may also be used to reduce pain and inflammation.The injection typically includes 2 medicines. One is an anesthetic t o numb the shoulder. The other negin steroid, such as cortisone,to help reduce painful swe lling. It can take from a few hours to a couple of days before the injection helps. Talk wit h yourhealthcare providerabout the possible risks and benefits of this therapy. Date Last Reviewed: 02/11/201819999959-8342 [employer]. [address] [place] [address], [place] [address]. All righ ts reserved. This information is not intended as a substitute for professional medical care. Always follow your healthcare professional's instructions. documented in this encounter Progress Notes Rancho Aldrich MD - 03/30/2019 10:00 AM PDTFormatting of this note might be dif ferent from the original. [facility] HISTORY AND PHYSICAL EXAMINATION Pt. Name/Age/: Rebecca Castillo 79 y.o. 1940 Primary Care Physician: Jesus Mijares Chief Complaint/Reason for Visit: New Patient and Shoulder Pain (Bilateral) History of Present Illness: The patient is a pleasant 79 y.o. female who presents with bilateral shoulder pain. She ac tually states that her right shoulder is doing pretty well and she just had an injection on March 032018. Her left shoulder is bothering her quite a bit at this time. Her left shou lder is been hurting for the last 3 months. She localizes the pain to the lateral side of h er shoulder and states that goes down her arm but not to the level of the elbow. Lifting we ights and reaching and raising her arm above her head makes her pain worse. Anti-inflammato long, laying down, and relaxing make her pain better. She has had good luck with steroid in jections on the right shoulder and has had about 4 of them over time. Her pain is a 3 out o f 10 right now and an 8 out of 10 at its worst on the left shoulder. Her pain has been the same. She is unable to do her normal daily activities due to this pain. She does not use t obacco products.. Past Medical History: Past Medical History: Diagnosis Date Carpal tunnel syndrome, bilateral 01/26/2013 CHF (congestive heart failure) ([facility]) 07/31/2018 Chronic back pain 06/24/2014 Chronic kidney disease 11/2015 Stage 3 Depression 03/20/2017 Diabetes mellitus ([facility]) Facet arthritis of lumbar region 03/06/2013 GERD (gastroesophageal reflux disease) Hyperlipidemia 03/28/2015 Hypertension Irregular heartbeat Lumbar scoliosis 08/09/2014 Migraine headache Myocardial infarction ([facility]) Neuropathy Nontraumatic tear of right supraspinatus tendon 01/03/2018 Sacroiliitis, not elsewhere classified ([facility]) 09/11/2016 Trochanteric bursitis of right hip 03/06/2016 Ulcer Past Surgical History: Procedure Laterality Date APPENDECTOMY BREAST SURGERY 1961 Benign tumor CHOLECYSTECTOMY COLONOSCOPY 2001 ? EAR SURGERY 2001 EYE SURGERY 2014 Cateract removed HYSTERECTOMY 1996 SPINE SURGERY 2013 fusion TONSILLECTOMY TUMOR REMOVAL stomach tumor removed Allergies: Allergies Allergen Reactions Sitagliptin Rash Penicillin V Potassium Sulfa Antibiotics Current Medications: Current Outpatient Medications Medication Sig Dispense Refill [...] mg by mouth nightly. 3 warfarin (COUMADIN) 6 MG tablet Take 6 mg by mouth Daily. 99 No current facility-administered medications for this visit. Family History: Family History Problem Relation Age of Onset Arthritis Mother Hands High blood pressure Brother High cholesterol Brother from stroke age 73 Social History: Social History Socioeconomic History Marital status: Spouse [...] file Social History Narrative Not on file Review of Systems All of these are negative unless otherwise marked Eyes: [] Double vision [x] Glasses/contacts [] Failing vision Respiratory: [] Asthma/Wheezing [] Pneumonia [] Night sweats [] Shortness of breath [] Chronic cough [] Coughing up blood [] Exposure to tuberculosis Cardiovascular: [x] Heart Problems [x] Hypertension [x] Heart murmur [x] Palpitations [] Rheumatic fever [] Phlebitis [] Chest pain [x] Ankle swelling [x] Leg cramps [x] Ra cing heart [x] Skipping beats [] Blood clots Urinary Tract: [] Painful urination [] Kidney Stones [x] Any urine leakage [] Weak urine stream [x] Night urination [] Urine infections [] Bedwetting [] Blood in urine Ear/Nose/Throat: [] Frequent Colds [] Sinus Disease [] Nose obstruction [] Sneezing Spells [] Change in taste [x] Artificial teeth [x] Ears ringing [] Ear pain [x] Hearing lo ss [x] Teeth problems [] Hoarseness [] Neck swelling [x] Sore throat [x] Congestion [] Nosebleeds [] Nasal allergies Gastrointestinal: [] Abdominal pain [] Heartburn [] Blood from rectum [] Colitis [] Gallbladder problems [x] Troub le swallowing [] Bloated stomach [] Change in stools [] Vomiting blood [] Nausea [x] Hemorrhoids [] Jaundice [] Hepatitis [] Diarrhea [x] Constipation [] Diverticulitis Musculoskeletal: [x] Physical handicaps [x] Back or shoulder pain []Rheumatoid disease [x] Osteoarthritis [x] Joint pain [x] Joint swelling [x]Gout [x] Leg cramps at night Skin: [] Skin rashes [] Itching/Burning [x] Skin bruises easi ly [] Artificial tanning [] Skin cancer [x] Hair loss [x] Changes in moles Psychiatric: [] Depression [] Suicidal thoughts [x] Sleep pattern changes [x] Appetite changes [] Recent counseling [] Nervousness/anxiety [] Physical violence [] Marital problems Neurological: [] Headaches [] Seizures [] Stroke/TIA [] Faintness [x] Tremors [] Numbness [] Dizziness [x] Changes in handwriting [] Memory loss [x] Shooting pains Endocrine: [] Thyroid [] Diabetes Systemic: [x]Weight loss/gain (over 10 lbs) []Fever/chills [x]Fatigue [x] Sleeping Difficulties [] Speech change [] Voice change Admission Weight: Weight: 72.6 kg (160 lb) BMI: Body mass index is 27.46 kg/m. Physical Examination: Ht 1.626 m (5' 4") | Wt 72.6 kg (160 lb) | BMI 27.46 kg/m General: Alert, oriented, no acute distress HEENT: Normocephalic, atraumatic Cardiovascular: Regular rate and rhythm Respiratory: Breathing normally at a regular rate Ortho Exam Left Shoulder Exam Right Left Forward Flexion 140 140 Abduction 110 110 External Rotation 30 30 Internal rotation T10 T8 Tender to Palpation: subacromial joint, biceps tendon External Rotation Strength 5/5 Internal Rotation Strength 5/5 Hawkin's Negative Neer's Positive Dillon's Positive Radial pulse 2+. Sensation intact to light touch in the first dorsal webspace, and the pads of the small and index fingers. Able to flex and extend the thumb at the interphalangeal glenn int, make an "ok" sign, adduct and abduct the fingers, and oppose the thumb to the small fin erick. Diagnostic Studies: Imaging 4 views of the left shoulder obtained today demonstrate no fractures or dislocations. Ther e is mild glenohumeral osteoarthrosis with an inferior humeral head osteophyte. The humeral head is centered on the glenoid. There is no os acromiale Labs- No results found for: NA, K, CL, CO2, ANIONGAP, GLU, BUN, CREA, GFRNONAA, CALCIUM, ALBUMIN, BILITOT, TOTALPROTEIN, AST, ALT, ALKPHOS, WBC, HGB, HCT, MCV, LABPLAT, PLT, ESR, CRP, LIPAS E, AMYLASE, PT, INR Assessment and Plan: 1. Impingement syndrome of left shoulder triamcinolone acetonide (KENALOG-40) 40 mg/mL inj ection 40 mg The patient is a pleasant 79 y.o. female who presents with left shoulder impingement and bi ceps tendinitis. Treatment options were discussed with the patient including non-operative t reatment modalities. Considering the nature of the patient's condition, decision was made to proceed with a left subacromial injection. She has had good responses from these the right side in the past. I do not think that most of her pain is coming from the arthritis she saul s inside her joint. She appears to localize it further laterally and her symptoms seem more consistent with impingement. She does have a known rotator cuff tear on the right which wa s diagnosed using a CT arthrogram. I see no strong evidence for rotator cuff today on exami nation or on imaging but it is certainly possible that she has one. I would still start con servatively and go from there.. Risks, benefits and alternatives to injection were discussed with the patient. All of the p atient's questions were answered regarding the procedure. Consent was obtained. The patient agreed to undergo an injection of the Left subacromial space. The area was prepared sterilel y using Betadine. A cold spray was used to numb the skin. 5 mLs of 1% lidocaine and 40 mg of kenalog were injected in the standard fashion. This was well tolerated by the patient. Follow-up: Return if symptoms worsen or fail to improve. with no x-ray Portions of this report were transcribed using voice recognition software. Every effort wa s made to ensure accuracy; however, inadvertent computerized automotive finance manager errors may be pre sent. I appreciate the opportunity to help with the management of this patient. Rancho Aldrich MD documented in this encounter Plan of Treatment [...] | | | | | | [place] [address] | | | | | | [phone] | | | | | | | [...] + | Diagnosis | + + | Impingement syndrome of left shoulder - Primary Other affections of shoulder region, | | not elsewhere classified | + + documented in this encounter Administered Medications + +--------+ +-------+------+ + | Medication Order | MAR | Action | Dose | Rate | Site | | | Action | Date | | | | + +--------+ +-------+------+ + | triamcinolone acetonide | Given | 03/30/20 | 40 mg | | Shoulder | | (KENALOG-40) 40 mg/mL injection | | 19 11:01 | | | -Left | | 40 mg 40 mg, Intra-articular, | | AM PDT | | | | | ONCE, 03/30/19 at 1245, For 1 | | | | | | | dose, Shake well. Not for IV | | | | | | | use., | | | | | | + +--------+ +-------+------+ + +---+---+ | | | +---+---+ documented in this encounter Additional Health Concerns + + + + | Infection | Noted Time | Resolved Time | + + + + | Methicillin-resistant Staphylococcus aureus | 03/20/2017 12:00 AM | | | | PDT | | + + + + documented as of this encounter
--- OUTSIDE RECORDS SUMMARY | ~2019-10-18 | XMS | Encounter Summary ---
Demographics + + + | Address | [address] | | | [place] [address] | + + + | Home Phone | | + + + | Preferred Language | Unknown | + + + | Marital Status | | + + + | Tenriism Affiliation | 1027 | + + + | Race | Unknown | + + + | Ethnic Group | Unknown | + + + Author + + + | Author | [facility] | | | and [place] | + + + | Organization | [facility] | | | [...] Team Providers + +------+ + | Care Middle Stitcher Name | Role | Phone | + [...] Unknown | neurogenic | | | | [address] | [phone] | claudication | | | | [phone] | | | +--------+ + + + [...] | | | | | | [place] [address] | | | | | | [phone] | | | | | | | [...] 01/05/2014 11:55 AM Job: | | | [id number] | | + + + + + [...] Dictated: 01/05/2014 11:55 AM | | Job: [id number] | + + documented in this encounter Visit Diagnoses + + | Diagnosis | + + | Spinal stenosis, lumbar region, with neurogenic claudication | + + documented in this encounter"
--- OUTSIDE RECORDS SUMMARY | ~2019-10-18 | XMS | Encounter Summary ---
Demographics + + + | Address | [address] | | | [place] [address] | + + + | Home Phone [...] Providers + +------+ + | Care Manager Pharmaceutical Name | Role | Phone | + +------+ + | Jesus Mijares MD | PCP | | + +------+ + Encounter Details +--------+ + + + + | Date | Type | Department | Care Team | Description | +--------+ + + + + | 07/27/ | Hospital | [facility] | Conversion | | | 2013 | Encounter | [facility] | Transaction, | | | | | [address] | Provider Unknown | | | | | [place], [place] | [phone] | | | | | [address] | | | | | | [phone] | Yong Pena Jr., | | | | | | MD [address] | | | | | | [address] [place], [place] | | | | | | [address] | | | | | | | [...] | | | | | | [place] [address] | | | | | | [phone] | | | | | | | [...]
--- OUTSIDE RECORDS SUMMARY | ~2019-10-18 | XMS | Encounter Summary ---
Demographics + + + | Address | [address] | | | [place] [address] | + + + | Home Phone | | + + + | Preferred Language | Unknown | + + + | Marital Status | | + + + | Confucianist Affiliation | 1027 | + + + | Race | Unknown | + + + | Ethnic Group | Unknown | + + + Author + + + | Author | [facility] | | | and [place] | + + + | Organization | [facility] | | | and [...] Team Providers + +------+ + | Care Help Desk Consultant Name | Role | Phone | + [...] Thoracic or | [place], | [address] | | | | | lumbosacral | Nilson Jensen MD | [place], | | | | | neuritis or | [address] | [place] | | | | | | [address] [place] | [address] | | | | | radiculitis, | [place], [place] | Phone: | | | | | unspecified | [address] | [phone] | | | | | Procedures | Phone: | Fax: | | | | | HI INJECT | [phone] | [phone] | | | | | ANES/STEROID | Fax: | | | | | | FORAMEN | [phone] | | | | | | LUMBAR/SACRA | | | | | | | L W IMG | | | | | | | GUIDE ,1 | | | | | | | LEVEL HI | | | | | | | [...] + + | 04/28/ | Hospital | [facility] | Bogdanowicz, | Lumbar | | 2015 | Encounter | MED CTR XRAY [address] | [address] | radiculopathy; | | | | [address] [place] | [facility], | Spinal stenosis of | | | | [place] [address] | [place] [address] | lumbar region - | | | | [phone] | L3/L4, 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; | | | | | 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 | [address] | [place], [place] | [phone] | | [facility] | | [address] | | | - IMAGING | | [...]
--- OUTSIDE RECORDS SUMMARY | ~2019-10-18 | XMS | Encounter Summary ---
Demographics + + + | Address | [address] | | | [place] [address] | + + + | Home Phone [...] Providers + +------+ + | Care Store Sales Manager Name | Role | Phone | + +------+ + | Jesus Mijares MD | PCP | | + +------+ + Encounter Details +--------+ + + + + | Date | Type | Department | Care Team | Description | +--------+ + + + + | 01/05/ | Orders Only | [facility] | Ino Wilson MD | | | 2015 | | NEPHROLOGY [place] | [address] [place] | | | | | [address] [place] | [address] [place], [place] | | | | | [address] [place], [place] | [address] | | | | | [address] | | | | | | [phone] | | | +--------+ + + + [...] | | | | | | [place] [address] | | | | | | [phone] | | | | | | | [...] + | BASIC METABOLIC | Routin | 01/06/2016 | | Results for this | | PANEL | e | 12:00 AM | | procedure are in the | | | | PDT | | results section. | + +--------+ + + + documented in this encounter Results Basic Metabolic Panel (01/06/2016 12:00 AM PDT) + + + + + + | Component | Value | Ref Range | Performed | Pathologist | | | | | At | Signature | + + + + + + | Glucose, | 84 | 70 - 100 mg/dL | EXTERNAL | | | Fasting | | | LAB | | + + + + + + | BUN | 26 (A) | 6 - 23 mg/dL | EXTERNAL | | | | | | LAB | | + + + + + + | Creatinine | 1.29 (A) | 0.70 - 1.18 | EXTERNAL | | | | | mg/dL | LAB | | + + + + + + | BUN/Creatin | 20.2 | 6.0 - 28.6 | EXTERNAL | [...] + + + + | K | 4.2 | 3.6 - 5.1 | EXTERNAL | | | | | mmol/L | LAB | | + + + + + + | Cl | 97 | 95 - 112 mmol/L | EXTERNAL | | | | | | LAB | | + + + + + + | CO2 | 32 (A) | 19 - 31 mmol/L | EXTERNAL | | | | | | LAB | | + + + + + + | Anion Gap | 13.2 | 7 - 21 mmol/L | EXTERNAL | | | | | | LAB | | + + + + + + | Estimated | 41 (A) | 60 - 140 mg/dL | EXTERNAL [...]
--- OUTSIDE RECORDS SUMMARY | ~2019-10-18 | XMS | Encounter Summary ---
Demographics + + + | Address | [address] | | | [place] [address] | + + + | Home Phone [...] Team Providers + +------+ + | Care Wrister Name | Role | Phone | + +------+ + | Jesus Mijares MD | PCP | | + +------+ + Encounter Details +--------+ + + + + | Date | Type | Department | Care Team | Description | +--------+ + + + + | 11/06/ | Hospital | [facility] | Christian[place], | Chronic right | | 2018 | Encounter | MED CTR XRAY [address] | [address] | shoulder pain | | | | [place] | [place], | | | | | [place] [address] | [place] [address] | | | | | [phone] | [phone] | | | | | | | [...] [place], | | | | | | [place] [address] | | | | | | [phone] | | | | | | | [...]
--- OUTSIDE RECORDS SUMMARY | ~2019-10-18 | XMS | Encounter Summary ---
Demographics + + + | Address | [address] | | | [place] [address] | + + + | Home Phone [...] Team Providers + +------+ + | Care Basin Operator Name | Role | Phone | + +------+ + | Jesus Mijares MD | PCP | | + +------+ + Encounter Details +--------+ + + + + | Date | Type | Department | Care Team | Description | +--------+ + + + + | 11/01/ | Orders Only | [facility] | [place], | | | 2016 | | CARDIOLOGY [place] | Jesus Miranda MD | | | | | [address] | [address] | | | | | [facility] [place] | [address] [place], [place] | | | | | [address] | [address] | | | | | [phone] | [phone] | | | | | | | [...] | | | | | | [place] [address] | | | | | | [phone] | | | | | | | [...]
--- OUTSIDE RECORDS SUMMARY | ~2019-10-18 | XMS | Encounter Summary ---
Demographics + + + | Address | [address] | | | [place] [address] | + + + | Home Phone | | + + + | Preferred Language | Unknown | + + + | Marital Status | | + + + | Christianity Affiliation | 1027 | + + + | Race | Unknown | + + + | Ethnic Group | Unknown | + + + Author + + + | Author | [facility] | | | and [place] | + + + | Organization | [facility] | | | [...] Team Providers + +------+ + | Care Last Greaser Name | Role | Phone | + +------+ + | Jesus Mijares MD | PCP | | + +------+ + Reason for Visit + + + | Reason | Comments | + + + | Back Pain | low back into bilateral legs | + + + Encounter Details +--------+---------+ + + + | Date | Type | Department | Care Team | Description | +--------+---------+ + + + | 06/11/ | Office | [facility] | [place], | Spinal stenosis of | | 2015 | Visit | PHYSIATRY [address] | GAMALIEL Saucedo [address] | lumbar region - | | | | [place], | [address] [place], | L3/L4, adjacent | | | | [place] [address] | [place] [address] | segment disease | | | | [phone] | [phone] | (Primary Dx); | | | | | | Chronic [...] + + + | Blood Pressure | 148/87 | 06/11/2016 1:37 PM | | | | | PDT | | + + + + + | Pulse | 57 | 06/11/2016 1:37 PM | | | | | PDT [...] Weight | 88.5 kg (195 lb) | 06/11/2016 1:37 PM | | | | | PDT | | + + + + + | Height | 162.6 cm (5' 4") | 06/11/2016 1:37 PM | | | | | PDT | | + + + + + | Body Mass Index | 33.47 | 06/11/2016 1:37 PM | | | | | PDT | | + + + + + documented in this encounter Patient Instructions Patient Instructions Sheryl Alvarado PA-C - 06/11/2016 1:35 PM PDT1) Epidural injecti on with Dr. Tejada along with a right bursa injection Follow-up at [...] of the procedure you must provide a residential recycle driver to take you home. For all procedur es it is recommended that someone else drive you home. documented in this encounter Progress Notes Sheryl Alvarado PA-C - 06/11/2016 1:39 PM PDTFormatting of this note might be differe nt from the original. CHIEF COMPLAINT: Chief Complaint Patient presents with Back Pain low back into bilateral legs HISTORY OF PRESENT ILLNESS: [...] spinal stenosis. She last received this last 03/06/2016 along with a right troc hanteric bursa injection. She reports having had 100% relief for 3 months, her symptoms rec ently worsened in the last 5 days. She describes the pain as constant dull [...] in [address] Yong Pena in [place], use of hydrocodone 3 x/day and flexeril, [...] tablet Take 25 mg by mouth nightly. cloNIDine (CATAPRES) 0.1 mg tablet Take 0.1 mg by mouth 2 times daily. Dabigatran Etexilate Mesylate (PRADAXA PO) Take by mouth 2 times daily. ezetimibe-simvastatin (VYTORIN) 10-40 MG per tablet Take 1 tablet by mouth nightly. HYDROcodone-acetaminophen (NORCO) 10-325 mg per tablet Take 10-325 mg by mouth 3 times daily as needed. (Patient taking differently: Take 10-325 mg by mouth every 4 hours as neede d.) tiZANidine (ZANAFLEX) 4 mg tablet Take 4 mg by mouth every 6 hours as needed. torsemide (DEMADEX) 20 mg tablet Take 20 mg by mouth 3 times daily. traZODone (DESYREL) 50 mg tablet Take 50 mg by mouth nightly. No current facility-administered medications for this visit. [...] No abnormal bleeding PHYSICAL EXAMINATION: Filed Vitals: 06/11/16 1337 BP: 148/87 Pulse: 57 PainSc: 7 PainLoc: Back GENERAL: The patient [...] has no apparent deficits with short or skilled nursing memory. She has appropriate fund of knowledge [...] stenosis and multi-level facet arthritis. ASSESSMENT: 1. Spinal stenosis of lumbar region - L3/L4, adjacent segment disease 2. Chronic bilateral low back pain with sciatica, sciatica laterality unspecified 3. Scoliosis of lumbar spine, unspecified scoliosis type 4. Lumbar radiculopathy 5. Trochanteric bursitis of right hip PLAN: 1. The patient has had significant conservative care including medications (NSAIDS and sam cotics), PT (multiple sessions over the years) and auto care center manager. Unfortunately she cont inues to have significant discomfort. It appears to me that the pain is primarily coming fr om the central spinal stenosis at L3/L4. I did feel that she would be a good candidate for interventional procedures as the last epidural injection greatly helped. I offered bilatera l L4/L5 epidural injections to be done later today. She is on Pradaxa and has been off for 4 days now. 2. Medications have been reviewed at today's visit with no changes made at this time. 3. The patient will follow up in three months from today for another same day injection. ELECTRONICALLY SIGNED BY: Sheryl Alvarado PA-C, 06/11/2016 documented in this encounter Plan of Treatment [...] [place], | | | | | | [place] [address] | | | | | | [phone] | | | | | | | [...] Bursa Injection on Right Diagnosis: Lumbar | [facility] | | radiculopathy and Trochanteric bursitis ICD-10 Codes M54.16 and | [facility] | | M70.61 Rebecca Castillo [...] [address] | [address] | [place] | [phone] | | [facility] | | [address] | | | - IMAGING | | [...] Injection on Right Diagnosis: Lumbar | [facility] | | radiculopathy and Trochanteric bursitis ICD-10 Codes M54.16 and | [facility] | | M70.61 Rebecca Castillo [...] [address] | [place] | [phone] | | [facility] | | [address] | | | - IMAGING | | [...]
--- OUTSIDE RECORDS SUMMARY | ~2019-10-18 | XMS | Encounter Summary ---
Demographics + + + | Address | [address] | | | [place] [address] | + + + | Home Phone | | + + + | Preferred Language | Unknown | + + + | Marital Status | | + + + | Baptism Affiliation | 1027 | + + + [...] Team Providers + +------+ + | Care Negotiator Sales Name | Role | Phone | + [...] + | 02/18/ | Telephone | [facility] | Capo Bermudez, | Follow-up | | 2019 | | PHYSIATRY [address] | PA-C [address] | (Injections) | | | | Ericson Sc[place], | [address] [place] | | | | | [place] [address] | [place] [address] | | | | | [phone] | [phone] | | | | | | | [...] | | | | | | [place] [address] | | | | | | [phone] | | | | | | | [...] Density wo | Imaging | Routin | assisted current | Expected: | | Vert Fx [...] systemic steroid therapy | + + | 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
--- OUTSIDE RECORDS SUMMARY | ~2019-10-18 | XMS | Encounter Summary ---
Demographics + + + | Address | [address] | | | [place] [address] | + + + | Home Phone | | + + + | Preferred Language | Unknown | + + + | Marital Status | | + + + | Anabaptist Affiliation | 1027 | + + + [...] Team Providers + +------+ + | Care Recreation Therapy Aide Name | Role | Phone | + +------+ + | Jesus Mijares MD | PCP | | + +------+ + Encounter Details +--------+ + + + + | Date | Type | Department | Care Team | Description | +--------+ + + + + | 02/17/ | Orders Only | [facility] | Capo Bermudez, | Lumbar radiculopathy | | 2019 | | PHYSIATRY [address] | PA-C [address] | (Primary Dx) | | | | [place], | [address] [place] | | | | | [place] [address] | [place] [address] | | | | | [phone] | [phone] | | | | | | | [...] | | | | | | [place] [address] | | | | | | [phone] | | | | | | | [...] this encounter Results [place] SRINIVAS Lumbar Transforaminal (03/03/2019 2:50 PM [...] radiculitis, | | unspecified | + + documented in this encounter Additional Health Concerns + + + + | Infection | Noted Time | Resolved Time | + + + + | Methicillin-resistant Staphylococcus aureus | 03/20/2017 12:00 AM | | | | PDT | | + + + + documented as of this encounter"
--- OUTSIDE RECORDS SUMMARY | ~2019-10-18 | XMS | Encounter Summary ---
Demographics + + + | Address | [address] | | | [place] [address] | + + + | Home Phone [...] Team Providers + +------+ + | Care Planning Analyst Name | Role | Phone | + [...] | Lumbar | [place], | [address] | | | | | radiculopath | Nilson Jensen MD | [place], | | | | | y | [address] | [place] | | | | | Procedures | [place] | [address] | | | | | [place] INJECT | [place], [place] | Phone: | | | | | ANES/STEROID | [address] | [phone] | | | | | FORAMEN | Phone: | Fax: | | | | | LUMBAR/SACRA | [phone] | [phone] | | | | | L [address] IMG | Fax: | | | | | | GUIDE ,1 | [phone] | | | | | | LEVEL SC | | | | | | | TRIAMCINOLON | | | | | | | E ACET INJ | | | | | | | NOS, 10 MG | | | | | | | Bilateral | | | | | | | L4-L5 TFESI | | | +--------+--------+ + + + + Encounter Details +--------+ + + + + | Date | Type | Department | Care Team | Description | +--------+ + + + + | 12/01/ | Hospital | [facility] | Bogdanowicz, | Lumbar | | 2019 | Encounter | MED CTR XRAY [address] | GAMALIEL Saucedo [address] | radiculopathy; | | | | [place] | [facility], | Spinal stenosis of | | | | [place] [address] | [place] [address] | lumbar region | | | | [phone] | [phone] | without neurogenic | | | | | | claudication; | | | | | [facility] | DEGENERATIVE DISC | | | | | | DISEASE, LUMBAR | | | | | | SPINE; Chronic | | | | | | bilateral low back | | | | | | pain with sciatica, | | | | | | sciatica laterality | | | | | | [...] +---------+ + + | Blood Pressure | 136/68 | 12/01/2018 4:07 PM | | | | | PST | | + +---------+ + + | Pulse | 86 | 12/01/2018 4:07 PM | | | | | PST [...] | | | | | | [place] [address] | | | | | | [phone] | | | | | | | [...] | [place] EPIDURAL STEROID | Routin | 12/01/2018 | Lumbar | Results for this | | INJECTION LUMBAR | e | 4:06 PM | radiculopathy | procedure are in the | | TRANSFORAMINAL | | PST | Spinal stenosis of | results section. | | | | | lumbar region | | | | | | without neurogenic | | | | | | claudication | | | | | | DEGENERATIVE DISC | | | | | | DISEASE, LUMBAR | | | | | | SPINE Chronic | | | | | | bilateral low back | | | | | | pain with sciatica, | | | | | | sciatica laterality | | | | | | unspecified | | + +--------+ + + + documented in this encounter Results [place] SRINIVAS Lumbar Transforaminal (12/01/2018 4:06 PM PST) + + | Specimen | + + | | + + + + -+ | Narrative | Performed At | + + -+ | 12/01/2018 | [facility] | | Bilateral Transforaminal Epidural Steroid Injections Diagnosis: Lumbar | | | radiculopathy ICD-10 Code M54.16 Rebecca Chanell Castillo presents to the | | | [...] of 1% lidocaine and 1.5 mL of 10 | | | mg/mL dexamethasone was infused, divided between the two sides. The | | | patient tolerated the procedure well without complications. Pre- [...] intervertebral disc | + + | Chronic bilateral low back pain with sciatica, sciatica laterality unspecified | + + documented in this encounter Administered Medications + +--------+ +-------+------+------+ | Medication Order | MAR | Action | Dose | Rate | Site | | | Action | Date | | | | + +--------+ +-------+------+------+ | dexamethasone (PF) 10 mg/mL | Given | 12/01/19 | 15 mg | | | | injection 15 mg 15 mg, Other, | | 19 4:20 | | | | | ONCE, 12/01/18 at 1615, For 1 | | PM PST | | | | | dose, When ordered IV push: | | | | | | | Dilute to 10-20 mL with NS and | | | | | | | give slowly over 1-2 minutes., | | | | | | + +--------+ +-------+------+------+ +---+---+ | | | +---+---+ + +-------+ +-------+---+---+ | iohexol (OMNIPAQUE 300) 300 | Given | 12/01/19 | 4 mLs | | | | mg/mL injection 4 mL 4 mL, | | 19 4:15 | | | | | Other, ONCE, 12/01/18 at 1615, | | PM PST | | | | | For 1 dose | | | | | | + +-------+ +-------+---+---+ +---+---+ | | | +---+---+ + +-------+ +-------+---+---+ | lidocaine (PF) 1% injection 2 | Given | 12/01/19 | 2 mLs | | | | mL 2 mL, Other, ONCE, Mon | | 19 4:20 | | | | | 12/01/18 at 1615, For 1 dose, | | PM PST | | | | | EPIDURAL, | | | | | | + +-------+ +-------+---+---+ +---+---+ | | | +---+---+ + +-------+ +-------+---+ + | lidocaine buffered 0.9% | Given | 12/01/19 | 6 mLs | | Other | | injection 6 mL 6 mL, | | 19 4:10 | | | (Comment | | Intradermal, ONCE, 12/01/18 at | | PM PST | | | ) | | 1615, For 1 dose | | | | [...]
--- OUTSIDE RECORDS SUMMARY | ~2019-10-18 | XMS | Encounter Summary ---
Demographics + + + | Address | [address] | | | [place] [address] | + + + | Home Phone | | + + + | Preferred Language | Unknown | + + + | Marital Status | | + + + | Mormon Affiliation | 1027 | + + + | Race | Unknown | + + + | Ethnic Group | Unknown | + + + Author + + + | Author | [facility] | | | and [place] | + + + | Organization | [facility] | | | [...] Providers + +------+ + | Care Manager Of Operations Name | Role | Phone | + [...] | | | [place], | [address] | | | | | Trochanteric | Nilson Jensen MD | [place], | | | | | bursitis of | [address] | [place] | | | | | right hip | [place] | [address] | | | | | Procedures | [place], [place] | Phone: | | | | | [place] | [address] | [phone] | | | | | Joint | Phone: | Fax: | | | | | Injection | [phone] | [phone] | | | | | Right | Fax: | | | | | | | [phone] | | +--------+--------+ + + + + Encounter Details +--------+ + + + + | Date | Type | Department | Care Team | Description | +--------+ + + + + | 04/29/ | Hospital | [facility] | Nildanowicz, | Lumbar | | 2017 | Encounter | MED CTR XRAY [address] | GAMALIEL Saucedo [address] | radiculopathy; | | | | [place] | [address] [place], | Spinal stenosis of | | | | [place] [address] | [place] [address] | lumbar region - | | | | [phone] | [phone] | L3/L4, 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; | | | | | [place], [place] | Spondylolisthesis, | | | | [...] | | | | | | [place] [address] | | | | | | [phone] | | | | | | | [...] [address] | [place] | [phone] | | [facility] | | [address] | | | - IMAGING | | [...]
--- OUTSIDE RECORDS SUMMARY | ~2019-10-18 | XMS | Encounter Summary ---
Demographics + + + | Address | [address] | | | [place] [address] | + + + | Home Phone [...] Team Providers + +------+ + | Care Sales And Service Consultant Name | Role | Phone | + +------+ + | Jesus Mijares MD | PCP | | + +------+ + Reason for Visit + + + | Reason | Comments | + + + | Back Pain | | + + + | Shoulder Pain | Right shoulder | + + + | Hip Pain | Right hip | + + + Encounter Details +--------+---------+ + + + | Date | Type | Department | Care Team | Description | +--------+---------+ + + + | 12/01/ | Office | [facility] | Capo Bermudez, | Lumbar radiculopathy | | 2019 | Visit | PHYSIATRY [address] | PA-C [address] | (Primary Dx); | | | | [place], | [address] [place] | Trochanteric | | | | [place] [address] | [place] [address] | bursitis of right | | | | [phone] | [phone] | hip; Subacromial | | | | | | bursitis of right | | | | | | shoulder joint | +--------+---------+ + + + Social History [...] + + + | Blood Pressure | 117/70 | 12/01/2018 2:08 PM | | | | | PST | | + + + + + | Pulse | 71 | 12/01/2018 2:08 PM | | | | | PST [...] Weight | 72.6 kg (160 lb) | 12/01/2018 2:08 PM | | | | | PST | | + + + + + | Height | 162.6 cm (5' 4") | 12/01/2018 2:08 PM | | | | | PST | | + + + + + | Body Mass Index | 27.46 | 12/01/2018 2:08 PM | | | | | PST | | + + + + + documented in this encounter Patient Instructions Patient Instructions Capo Bermudez PA-C - 12/01/2018 2:10 PM PST- Ice the area as needed 20 minutes per hour. Multiple times as needed over the next few days. - Watch for signs of infection (redness around injection site, swelling, fever) - No strenuous activity for 24-48 hours after the procedure. - Please call the office with questions or concerns. Possible Causes of Low Back or Leg Pain The symptoms in your back or leg may be due to pressure on a nerve. This pressure may be ca used by a damaged disk or by abnormal bone growth. Either way, you may feel pain, burning, t ingling, or numbness. If you have pressure on a nerve that connects to the sciatic nerve, pa in may shoot down your leg. Pressure from [...] press against a nerve. Date Last Reviewed: 12/12/201719990888-7151 [employer]. [address] [place] [address]. All righ ts reserved. This information is not intended as a substitute for professional medical care. Always follow your healthcare professional's instructions. documented in this encounter Progress Notes Capo Bermudez PA-C - 12/01/2018 2:20 PM PSTFormatting of this note might be different fro m the original. CHIEF COMPLAINT: Chief Complaint Patient presents with Back Pain Shoulder Pain Right shoulder Hip Pain Right hip HISTORY OF PRESENT ILLNESS: The patient is a 78 y.o. female being seen today in follow-up for complaints of low back pa in, trochanteric bursa injection and right subacromial bursa injection, and same day bilater al L4/5 TFESI. The patient has been seen for this complaint in the past, with initial visi t started by Dr. Chaudhry. Previously it was recommended that she receive bilateral L4/L5 epidural injection for spinal stenosis along with in office right greater trochanteric burs a injection and right subacromial bursa injections (1/2 doses). She last received this last 07/31/2018. She reports excellent relief for 3 months. She describes the pain as constant dull [...] in [address] Yong Pena in [place], use of hydrocodone 3 x/day and flexeril, [...] ER tablet Take 20 mEq by mouth. POTASSIUM PO Take 99 mg [...] Saturday, 6 mg rest of the days warfarin (COUMADIN) 6 MG tablet No current facility-administered medications for this visit. [...] rashes. HEMATOLOGIC/LYMPHATIC: No abnormal bleeding PHYSICAL EXAMINATION: There were no vitals filed for this visit. GENERAL: The patient is well developed and [...] no apparent deficits with short or intermediate accountant memory. She has appropriate fund of knowledge [...] 2. Trochanteric bursitis of right hip 3. Subacromial bursitis of right shoulder joint PLAN: 1. Patient will undergo L4/L5 bilateral epidural injections today as this has worked in e past. The patient has had significant conservative care including medications (NSAIDS and narcoti cs), PT (multiple sessions over the years) and career professional. Unfortunately she continue s to have significant discomfort. It appears to me that the pain is primarily coming from t he central spinal stenosis at L3/L4. I did feel that she would be a good candidate for inte rventional procedures as the last epidural injection greatly helped. 2. Medications have been reviewed at today's visit with no changes made at this time. 3. The patient will follow up in three months from today for another same day injection. 4. Right shoulder pain - subacromial steroid injection with 1/2 steroid - Full thickness t ear of right supraspinatus. We did perform a right subacromial steroid injection in office t josseline. Description of procedure: After the patient gave [...] hub. A combination of 1 mL of 20 mg/mL Kenalog (1/2 steroid) and 2 mL each of 0.5% Bupivicaine and 1% Lidocaine was injected. 5. Right trochanteric bursa injection with 1/2 steroid Description of procedure: After reviewing the relative risks and benefits the patient conse nted to the procedure. The patient was laid in a lateral decubitus position. The most tender area was palpated th en marked over the lateral hip. The area was then sterilized with Betadine swabs and alcoho l and cooled with an ethyl chloride spray before inserting a 1-1/2 inch 27-gauge needle into the region to administer approximately 2 mL of 1% lidocaine for local anesthesia. Then a 22 gauge spinal needle was advanced down to the greater trochanter. Once bone was encountered the needle was slightly retracted before injecting a total volume of 5 mL including 1/2 mL o f triamcinolone ( 20 milligrams per mL) and 2 mL each of 1% lidocaine and 0.5% bupivicaine. The needle was then removed and the area was cleaned and bandaged. The patient tolerated the procedure well. There were no complications. The patient was instructed to ice the area fo r 15-20 minutes several times over the next few days and to watch for any signs of infection . The patient tolerated the procedure well and was instructed to ice the area for 15-20 minut es several times over the next few days and to watch for any signs of infection. ELECTRONICALLY SIGNED BY: Capo Bermudez PA-C, 12/01/2018 documented in this encounter Plan of Treatment [...] | | | | | | [place] [address] | | | | | | [phone] | | | | | | | [...] of hip region | + + | Subacromial bursitis of right shoulder joint | + + documented in this encounter Administered Medications + + + +-------+------+ + | Medication Order | MAR | Action | Dose | Rate | Site | | | Action | Date | | | | + + + +-------+------+ + | lidocaine 1% injection 2 mL 2 | Given by | 12/01/19 | 2 mLs | | Other | | mL, Other, ONCE, 12/01/18 at | Other | 19 2:18 | | | (Comment | | 1445, For 1 dose | | PM PST | | | ) | + + + +-------+------+ + +---+---+ | | | +---+---+ + +-------+ +-------+---+ + | ropivacaine (NAROPIN) 5 mg/mL | Given | 12/01/19 | 2 mLs | | Other | | (0.5%) injection 2 mL 2 mL, | | 19 2:36 | | | (Comment | | Other, ONCE, 12/01/18 at 1445, | | PM PST | | | ) | | For 1 dose | | | | | | + +-------+ +-------+---+ + +---+---+ | | | +---+---+ + + + +-------+---+ + | triamcinolone acetonide | Given by | 12/01/19 | 40 mg | | Other | | (KENALOG-40) 40 mg/mL injection | Other | 19 2:36 | | | (Comment | | 40 mg 40 mg, Other, ONCE, Mon | | PM PST | | | ) | | 12/01/18 at 1445, For 1 dose, | | | | | | | Shake well. Not for IV use., | | | | | | + + + +-------+---+ + +---+---+ | | | +---+---+ documented in this encounter Additional Health Concerns + + + + | Infection | Noted Time | Resolved Time | + + + + | Methicillin-resistant Staphylococcus aureus | 03/20/2017 12:00 AM | | | | PDT | | + + + + documented as of this encounter
--- OUTSIDE RECORDS SUMMARY | ~2019-10-18 | XMS | Encounter Summary ---
Demographics + + + | Address | [address] | | | [place] [address] | + + + | Home Phone | | + + + | Preferred Language | Unknown | + + + | Marital Status | | + + + | Samaritan Affiliation | Unknown | + + + | Race | White | + + + | Ethnic Group | Not or | + + + Author + + + | Organization | Unknown | + + + | Address | Unknown | + + + | Phone | Unavailable | + + + Support + + + + + | Name | Relationship | Address | Phone | + + + + + | Geoffrey Castillo | RENAE | [place] | | + + + + + Care Team Providers + +------+ + | Care Employment And Claims Aide Name | Role | Phone | + +------+ + PCP | Unavailable | + +------+ + Encounter Details +--------+ + + + + | Date | Type | Department | Care Team | Description | +--------+ + + + + | 08/12/ | Procedure - | | Record, Operation | Operative Report | | 2000 | | | | | | | Transcribed | | | | +--------+ + + [...] as of this encounter Plan of Treatment Not on filedocumented as of this encounter Procedures + +--------+ + + + | Procedure Name | Priori | Date/Time | Associated Diagnosis | Comments | | | ty | | | | + +--------+ + + + | OPERATION RECORD | | 08/12/2001 | | Results for this | | | | | | procedure are in the | | | | | | results section. | + +--------+ + + + documented in this encounter Results OPERATION RECORD (08/12/2001) + + | Transcriptions | + + | Interface, Public Relations Assistant In - 07/17/2006 3:06 AM PDT | | [place] [address] | | [place], [place] [address] | | [facility]ORDMed Rec No.: | | [id number] Date: 08/12/2001Name: Guerrero Castillo SURGEON: | | Jayson Mccoy M.D.SAMPLE MOUNTER SURGEON: Chrissie Koch | | ToriPREOPERATIVE DIAGNOSIS:Left-sided otosclerosis.POSTOPERATIVE DIAGNOSIS:Left-sided | | otosclerosis.OPERATIONS PERFORMED:Left stapedotomy.ANESTHESIA:General.FINDINGS:1. Fixed | | stapes footplate, otherwise normal ossicular chain.2. Healthy middle ear space.3. 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 | | She wasbrought to the operating room. After the induction of general anesthesiaby | | the anesthesia service, the left ear was squared off and injected withapproximately | | 4.5 cc of 1% lidocaine with 1:1000 epinephrine. The patientwas then prepped and draped | | in sterile fashion. The operating microscopewas then brought into the field, and a | | stapedotomy short tympanomeatal flapwas elevated. With the middle ear exposed, | | the chorda tympani wasidentified and preserved. A House curet was used to take down | | enough boneto visualize the stapedius tendon, the posterior and anterior nona of | | thestapes. The middle ear was suctioned free of blood and debris. The argonlaser was | | placed at a setting of 1.25. The stapedius was taken down withthe laser at a setting | | of 1.25 without difficulty. The laser setting wasthen changed to 1.0, and the | | posterior nona of the stapes was taken down.A short right-angle needle was used to | | fracture the stapes over onto thepromontory without difficulty. Stapes footplate was | | easily visualized, andthe waqar was made with the argon laser at a setting of 1.0. | | Of note,while making the waqar, there was fracture line vertically through | | thestapes footplate, and the posterior aspect of it was noted to be mobile.The | | waqar was made, and the trephine was opened. The #4.5 Huston wasplaced without | | difficulty. The stapes footplate was sitting in the ovalwindow, and the piston was | | crimped onto the long process of the incus. Thetympanomeatal flap was then redraped | | with good approximation. Gelfoam wasplaced over the incision line, and the distal | | canal and external auditorycanal was filled with Bactroban ointment. A cotton ball and | | Band-Aid wereplaced, and the patient was turned over to anesthesia to be awakened | | fromanesthesia. She was taken to the postanesthesia care unit for recovery.There | | were no complications.ATTENDING PHYSICIAN ATTESTATION:Pursuant to federal Medicare | | billing regulations and other insuranceguidelines, I certify that Jayson Heath | | Tori Mccoy was present andparticipated throughout the entirety of the | | procedure.Chrissie Koch M.D. Jayson Mccoy M.D.MM/x53D: | | 08/12/2001T: 08/13/[id number]: | |otosclerosis. | | | |SPECIMENS REMOVED: | |Not dictated. | | | |PROCEDURE: | |The patient was identified in the preoperative holding area. She was | |brought to the operating room. After the induction of general anesthesia | |by the anesthesia service, the left ear was squared off and injected with | |approximately 4.5 cc of 1% lidocaine with 1:1000 epinephrine. The patient | |was then prepped and draped in sterile fashion. The operating microscope | |was then brought into the field, and a stapedotomy short tympanomeatal flap | |was elevated. With the middle ear exposed, the chorda tympani was | |identified and preserved. A House curet was used to take down enough bone | |to visualize the stapedius tendon, the posterior and anterior nona of the | |stapes. The middle ear was suctioned free of blood and debris. The argon | |laser was placed at a setting of 1.25. The stapedius was taken down with | |the laser at a setting of 1.25 without difficulty. The laser setting was | |then changed to 1.0, and the posterior nona of the stapes was taken down. | |A short right-angle needle was used to fracture the stapes over onto the | |promontory without difficulty. Stapes footplate was easily visualized, and | |the waqar was made with the argon laser at a setting of 1.0. Of note, | |while making the waqar, there was fracture line vertically through the | |stapes footplate, and the posterior aspect of it was noted to be mobile. | |The waqar was made, and the trephine was opened. The #4.5 Huston was | |placed without difficulty. The stapes footplate was sitting in the oval | |window, and the piston was crimped onto the long process of the incus. The | |tympanomeatal flap was then redraped with good approximation. Gelfoam was | |placed over the incision line, and the distal canal and external auditory | |canal was filled with Bactroban ointment. A cotton ball and Band-Aid were | |placed, and the patient was turned over to anesthesia to be awakened from | |anesthesia. She was taken to the postanesthesia care unit for recovery. | |There were no complications. | | | |ATTENDING PHYSICIAN ATTESTATION: | |Pursuant to federal Medicare billing regulations and other insurance | |guidelines, I certify that Jayson Mccoy M.D. was present and | |participated throughout the entirety of the procedure. | | | | | | | |Chrissie Koch M.D. Jayson Mccoy M.D. | | | |MM/x53 | | | | | | | | | |[id number] | | | |CC: | + + documented in this encounter Visit Diagnoses Not on filedocumented in this encounter"
--- OUTSIDE RECORDS SUMMARY | ~2019-10-18 | XMS | Encounter Summary ---
Demographics + + + | Address | [address] | | | [place] [address] | + + + | Home Phone | | + + + | Preferred Language | Unknown | + + + | Marital Status | | + + + | Nondenominational Affiliation | 1027 | + + + | Race | Unknown | + + + | Ethnic Group | Unknown | + + + Author + + + | Author | [facility] | | | and [place] | + + + | Organization | [facility] | | | [...] Team Providers + +------+ + | Care Hog Counter Name | Role | Phone | + [...] + + | 09/22/ | Procedure | [facility] | | Sick sinus syndrome | | 2019 | visit | [facility] [place] | | ([facility]) (Primary Dx); | | | | [address] | | Chronic diastolic | | | | [place], [place] | | heart failure ([facility]); | | | | [address] | | Cardiac pacemaker | | | | [phone] | | in situ; Paroxysmal | | | | | | atrial fibrillation | | | | | | ([facility]) | +--------+ + + + + Social [...] | | | | | | [place] [address] | | | | | | [phone] | | | | | | | [...] encounter for additional details. | | | central supply nurse: Benjamin Garcia, central supply nurse [facility] | | |See device data attached to scheduled encounter for additional | | |details. | | | | | |central supply nurse: Benjamin Garcia, central supply nurse [facility] | | | | | | [...]
--- OUTSIDE RECORDS SUMMARY | ~2019-10-18 | XMS | Encounter Summary ---
Demographics + + + | Address | [address] | | | [place] [address] | + + + | Home Phone | | + + + | Preferred Language | Unknown | + + + | Marital Status | | + + + | Orthodoxy Affiliation | 1027 | + + + [...] Team Providers + +------+ + | Care Production Checker Name | Role | Phone | + +------+ + | Jesus Mijares MD | PCP | | + +------+ + Encounter Details +--------+---------+ + + + | Date | Type | Department | Care Team | Description | +--------+---------+ + + + | 06/21/ | E-Visit | [facility] | [place], | RE: Non-Urgent | | 2017 | | PHYSIATRY [address] | [place] [address] | Medical Question | | | | [place], | [address] [place], | | | | | [place] [address] | [place] [address] | | | | | [phone] | [phone] | | | | | | | [...] | | | | | | [place] [address] | | | | | | [phone] | | | | | | | [...] this encounter Results [place] SRINIVAS Lumbar Transforaminal (07/31/2018 11:16 AM PDT) + + | Specimen | + + | | + + + + -+ | Narrative | Performed At | + + -+ | 07/31/2018 | [facility] | | Bilateral Transforaminal Epidural Steroid Injections Diagnosis: Lumbar | | | radiculopathy ICD-10 Code M54.16 Rebecca Castillo presents to the | | | fluoroscopy suite for fluoroscopically-guided bilateral L5-S1 | | | transforaminal epidural steroid injections [...] mL of 6 mg/mL | | | betamethasone was infused, divided between the two sides. [...]
--- OUTSIDE RECORDS SUMMARY | ~2019-10-18 | XMS | Encounter Summary ---
Demographics + + + | Address | [address] | | | [place] [address] | + + + | Home Phone [...] Team Providers + +------+ + | Care Cloth Worker Name | Role | Phone | + +------+ + PCP | Unavailable | + +------+ + Encounter Details +--------+ + + + + | Date | Type | Department | Care Team | Description | +--------+ + + + + | 11/21/ | Hospital | [facility] | | | | 2011 | Encounter | MED CTR XRAY [address] | | | | | | [address] | | | | | | [place] [address] | | | | | | [phone] | | | +--------+ + + + [...] [place], | | | | | | [place] [address] | | | | | | [phone] | | | | | | | [...] Performed At | + + + | [facility] Diagnostic Imaging Department | [facility] | | [address], [facility] | [facility] | | MRI LUMBAR SPINE WITHOUT [...] ROOT DUE TO A FOCAL FORAMINAL DISK OR OTRUSION AT L5-S1. Dictated | | | Date/Time: 11/21/2011 11:02 Transcribed Date/Time: 11/21/2011 | | | 11:20 Center Manager: <Electronically Signed by Mitch Jensen | | | MD Kay> 11/21/11 2206 | | + + + + + | Procedure Note | + + | Jeanmarie, Rad Conversion - 11/20/2013 4:42 PM [facility] | | Diagnostic Imaging Department [address] [place] [address] | | MRI LUMBAR SPINE WITHOUT CONTRAST: [...] DUE TO A FOCAL FORAMIN AL DISK OR | |OTRUSION AT L5-S1. | | | |Dictated Date/Time: 11/21/2011 11:02 | |Transcribed Date/Time: 11/21/2011 11:20 | |Center Manager: | |<Electronically Signed by Mitch Villanueva MD> 11/21/116 | + + + +---------+ + + | Performing | Address | City/State[facility] | Phone Number | | Organization | | | | + +---------+ + + | [facility] | | | | | [place] | | | | + +---------+ + + documented in this encounter Visit Diagnoses Not on filedocumented in this encounter"
--- OUTSIDE RECORDS SUMMARY | ~2019-10-18 | XMS | Encounter Summary ---
Demographics + + + | Address | [address] | | | [place] [address] | + + + | Home Phone | | + + + | Preferred Language | Unknown | + + + | Marital Status | | + + + | Presybeterian Affiliation | 1027 | + + + [...] Team Providers + +------+ + | Care Core Filer Name | Role | Phone | + +------+ + | Jesus Mijares MD | PCP | | + +------+ + Encounter Details +--------+ + + + + | Date | Type | Department | Care Team | Description | +--------+ + + + + | 09/15/ | Hospital | [facility] | Conversion | S/P lumbar fusion | | 2012 | Encounter | XRAY [address] | Transaction, | | | | | [place] | Provider Unknown | | | | | [address] | [phone] | | | | | [phone] | | | +--------+ + + + [...] | | | | | | [place] [address] | | | | | | [phone] | | | | | | | [...] LUMBAR SPINE 2 OR | Routin | 09/15/2013 | | Results for this | | 3 VW | e | 10:40 AM | | procedure are in the | | | | PST | | results section. 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 [facility] Dictated by: ALOK PENN | | | Dictated: 09/15/2013 10:44 AM Job: [id number] | | + + + + + + | Narrative | Performed At | + + + | LUMBAR SPINE RADIOGRAPHY XR LUMBAR SPINE 2-3 VIEWS DATE: | | | 09/15/2013. HISTORY: Status post lumbar fusion. COMPARISONS: | | | None. FINDINGS: Alignment: Rightward curvature of the lumbar | | | spine of 34 degrees, apex at L2. Bones: Status post posterior ricardo | | | and pedicle screw fixation at the L4-5 level. Disks/Facets: Disc | | | space narrowing at L1-2, L2-3, L3-4 and L4-5. Facet hypertrophy at | | | L5-S1. Status post laminectomy at L4. Surgical clips within the L4-5 | | | disc space. Other: The sacrum and visualized pelvis are | | | unremarkable. | | + + + + + | Procedure Note | + + | Jeanmarie, Roberto Conversion - 03/27/2019 1:28 PM PDT LUMBAR SPINE RADIOGRAPHY | | XR LUMBAR SPINE 2-3 VIEWS | | | | DATE: 09/15/2013. | | | | HISTORY: Status post lumbar fusion. | | | | COMPARISONS: None. | | | | FINDINGS: | | Alignment: Rightward curvature of the lumbar spine of 34 degrees, | | apex at L2. | | | | Bones: Status post posterior ricardo and pedicle screw fixation at the | | L4-5 level. | | | | Disks/Facets: Disc space narrowing at L1-2, L2-3, L3-4 and L4-5. | | Facet hypertrophy at L5-S1. Status post laminectomy at L4. Surgical | | clips within the L4-5 disc space. | | | | Other: The sacrum and visualized pelvis are unremarkable. 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 | | | | [facility] | | | | Dictated by: ALOK PENN | | Dictated: 09/15/2013 10:44 AM | | Job: [id number] | + + documented in this encounter Visit Diagnoses + + | Diagnosis | + + | S/P lumbar fusion Arthrodesis status | + + documented in this encounter"
--- OUTSIDE RECORDS SUMMARY | ~2019-10-18 | XMS | Encounter Summary ---
Demographics + + + | Address | [address] | | | [place] [address] | + + + | Home Phone | | + + + | Preferred Language | Unknown | + + + | Marital Status | | + + + | Islam Affiliation | 1027 | + + + | Race | Unknown | + + + | Ethnic Group | Unknown | + + + Author + + + | Author | [facility] | | | and [place] | + + + | Organization | [facility] | | | [...] Team Providers + +------+ + | Care Boomboat Operator Name | Role | Phone | [...] | | | [place], | [address] | | | | | Trochanteric | Nilson Jensen MD | [place], | | | | | bursitis of | [address] | [place] | | | | | right hip | [place] | [address] | | | | | Procedures | [place], [place] | Phone: | | | | | [place] | [address] | [phone] | | | | | Joint | Phone: | Fax: | | | | | Injection | [phone] | [phone] | | | | | Right | Fax: | | | | | | | [phone] | | +--------+--------+ + + + + Encounter Details +--------+ + + + + | Date | Type | Department | Care Team | Description | +--------+ + + + + | 04/29/ | Hospital | [facility] | Nildanowicz, | Lumbar | | 2017 | Encounter | MED CTR XRAY [address] | [address] | radiculopathy; | | | | [address] [place] | [address] [place], | Spinal stenosis of | | | | [place] [address] | [place] [address] | lumbar region - | | | | [phone] | [phone] | 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 | [place] | [phone] | | [facility] | | [address] | | | - IMAGING | | [...]
--- OUTSIDE RECORDS SUMMARY | ~2019-10-18 | XMS | Encounter Summary ---
Demographics + + + | Address | [address] | | | [place] [address] | + + + | Home Phone [...] Team Providers + +------+ + | Care Surface Mount Technology Operator Name | Role | Phone | [...] Xray | | | | | | [place], | [address] | | | | | Trochanteric | Nilson Jensen MD | [place], | | | | | bursitis of | [address] | [place] | | | | | right hip | [place] | [address] | | | | | Procedures | [place], [place] | Phone: | | | | | [place] | [address] | [phone] | | | | | Joint | Phone: | Fax: | | | | | Injection | [phone] | [phone] | | | | | Right | Fax: | | | | | | | [phone] | | +--------+--------+ + + + + Diagnostic/Screening (Routine) +--------+--------+ + + + + | Status | Reason | Specialty | Diagnoses / | Referred By | Referred To | | | | | Procedures | Contact | Contact | +--------+--------+ + + + + | Closed | | Radiology | Diagnoses | | [facility] | | | | | | Bogdanowicz, | [address] | | | | | Trochanteric | Sheryl, | [place], | | | | | bursitis of | PA-C [address] | [place] | | | | | both hips | [address] | [address] | | | | | Procedures | [place], [place] | Phone: | | | | | [place] | [address] | [phone] | | | | | Joint | Phone: | Fax: | | | | | Injection | [phone] | [phone] | | | | | Left | Fax: | | | | | | | [phone] | | +--------+--------+ + + + + [...] Xray | | | | | | Bogdanowicz, | [address] | | | | | Trochanteric | [place]yl, | [place], | | | | | bursitis of | PA-C [address] | [place] | | | | | both hips | [address] | [address] | | | | | Procedures | [place], [place] | Phone: | | | | | [place] | [address] | [phone] | | | | | Joint | Phone: | Fax: | | | | | Injection | [phone] | [phone] | | | | | Left | Fax: | | | | | | | [phone] | | +--------+--------+ + + + + Encounter Details +--------+ + + + + | Date | Type | Department | Care Team | Description | +--------+ + + + + | 04/29/ | Hospital | [facility] | Sabrinacz, | Trochanteric | | 2017 | Encounter | MED CTR XRAY [address] | [address] | bursitis of both | | | | [address] [place] | [address] [place], | hips; Trochanteric | | | | [place] [address] | [place] [address] | bursitis of right | | | | [phone] | [phone] | hip | | | | | | | | | | | [address] | | +--------+ + + + + [...] +---------+ + + | Blood Pressure | 133/62 | 04/29/2017 2:03 PM | | | | | PDT | | + +---------+ + + | Pulse | 80 | 04/29/2017 2:03 PM | | | | | PDT [...] mcg by | | 0 | | 01/24/201 | | 125 mcg tablet | mouth [...] | | | | | | [place] [address] | | | | | | [phone] | | | | | | | [...] + | [place] ASPIRATION | Routin | 04/29/2017 | Trochanteric | Results for this | | INJECTION MAJOR | e | 1:37 PM | bursitis of right | procedure are in the | | JOINT RIGHT | | PDT | hip | results section. | + +--------+ + + + | [place] ASPIRATION | Routin | 04/29/2017 | Trochanteric | Results for this | | INJECTION MAJOR | e | 1:37 PM | bursitis of both | procedure are in the | | JOINT LEFT | | PDT | hips | results section. | + [...] Injections and | [facility] | | Bilateral Trochanteric Bursa Injections Diagnosis: [...] + | [facility] | [address] | [place] | [phone] | | [facility] | | [address] | | | - IMAGING | | | | + + + + + [place] Major Joint Injection Left (04/29/2017 1:37 PM PDT) + + | Specimen | + + | | + + + + ---+ | Narrative | Performed At | + + ---+ | | [facility] | | 04/29/2017 Bilateral Transforaminal Epidural Steroid Injections and | [facility] | | Bilateral Trochanteric Bursa Injections Diagnosis: Lumbar | RENATA Thomas | | radiculopathy and Trochanteric Bursitis [...] + | [facility] | [address] | [place] | [phone] | | [facility] | | [address] | | | - IMAGING | | | | + + + + + documented in this encounter Visit Diagnoses + + | Diagnosis | + + | Trochanteric bursitis of both hips Enthesopathy of hip region | + + | Trochanteric bursitis [...] 4 mL 4 mL, | | 17 1:58 | | | | | Other, ONCE, 04/29/17 at 1400, | | PM PDT | | | | | For 1 dose | | | | | | + +--------+ +-------+------+------+ +---+---+ | | | +---+---+ + +-------+ +-------+---+---+ | lidocaine (PF) 1% injection 2 | Given | 04/29/20 | 2 mLs | | | | mL 2 mL, Other, ONCE, Sat | | 17 2:00 | | | | | 04/29/17 at 1400, For 1 dose | | PM PDT | | | | + +-------+ +-------+---+---+ +---+---+ | | | +---+---+ + +-------+ +--------+---+---+ | lidocaine buffered 1% injection | Given | 04/29/20 | 10 mLs | | | | 10 mL 10 mL, Other, ONCE, Mon | | 17 1:55 | | | | | 04/29/17 at 1400, For 1 dose | | PM PDT | | | | + +-------+ +--------+---+---+ +---+---+ | | | +---+---+ + +-------+ +-------+---+---+ | triamcinolone acetonide | Given | 04/29/20 | 40 mg | | | | (KENALOG-40) 40 mg/mL injection | | 17 2:00 | | | | | 80 mg 80 mg, Other, ONCE, Mon | | PM PDT | | | | | 04/29/17 at 1400, For 1 dose | | | | [...]
--- OUTSIDE RECORDS SUMMARY | ~2019-10-18 | XMS | Encounter Summary ---
Demographics + + + | Address | [address] | | | [place] [address] | + + + | Home Phone [...] Team Providers + +------+ + | Care Technical Sales Support Specialist Name | Role | Phone | [...] | Lumbar | [place], | [address] | | | | | radiculopath | Nilson Jensen MD | [place], | | | | | y | [address] | [place] | | | | | Procedures | [place] | [address] | | | | | [place] INJECT | [place], [place] | Phone: | | | | | ANES/STEROID | [address] | [phone] | | | | | FORAMEN | Phone: | Fax: | | | | | LUMBAR/SACRA | [phone] | [phone] | | | | | L W IMG | Fax: | | | | | | GUIDE ,1 | [phone] | | | | | | LEVEL ND | | | | | | | TRIAMCINOLON | | | | | | | E ACET INJ | | | | | | | NOS, 10 MG | | | | | | | Same day | | | | | | | 07/31/2018 | | | | | | | Bilateral | | | | | | | L5-L5 TFESI | | | +--------+--------+ + + + + Encounter Details +--------+ + + + + | Date | Type | Department | Care Team | Description | +--------+ + + + + | 07/31/ | Hospital | [facility] | [place], | Lumbar radiculopathy | | 2018 | Encounter | [facility] [address] | GAMALIEL Saucedo [address] | | | | | [address] [place] | [facility], | | | | | [place] [address] | [place] [address] | | | | | [phone] | [phone] | | | | | | | | | | | | Visual Manager, [facility] | | +--------+ + + + [...] +---------+ + + | Blood Pressure | 131/73 | 07/31/2018 11:00 AM | | | | | PDT | | + +---------+ + + | Pulse | 69 | 07/31/2018 11:00 AM | | | | | PDT [...] ONE TABLET BY | | 0 | 07/18/20 | | | (ZYLOPRIM) 100 mg | [...] | 0 | 06/04/20 | | | (RADHA-PAYAM M20) 20 | mouth. | | | [...] + +---------+ + + | warfarin | | | 0 | 07/17/20 | | | (COUMADIN) 6 MG | | | | 18 | 9 | [...] | | | | | | [place] [id number] | | | | | | [phone] | | | | | | | [...] | [place] EPIDURAL STEROID | Routin | 07/31/2018 | Lumbar | Results for this | | INJECTION LUMBAR | e | 11:16 AM | radiculopathy | procedure are in the [...] in this encounter Administered Medications + +--------+ +------+------+------+ | Medication Order | MAR | Action | Dose | Rate | Site | | | Action | Date | | | | + +--------+ +------+------+------+ | betamethasone (CELESTONE | Given | 07/31/20 | 9 mg | | | | SOLUSPAN) injection 9 mg 9 mg, | | 18 11:32 | | | | | Intra-articular, ONCE, Sharon | | AM PDT | | | | | 07/31/18 at 1130, For 1 dose, | | | | | | | Shake well. Not for IV use., | | | | | | + +--------+ +------+------+------+ +---+---+ | | | +---+---+ + +-------+ +-------+---+---+ | iohexol (OMNIPAQUE 300) 300 | Given | 07/31/20 | 4 mLs | | | | mg/mL injection 4 mL 4 mL, | | 18 11:29 | | | | | Other, ONCE, Sharon 07/31/18 at | | AM PDT | | | | | 1130, For 1 dose | | | | | | + +-------+ +-------+---+---+ +---+---+ | | | +---+---+ + +-------+ +-------+---+---+ | lidocaine (PF) 1% injection 2 | Given | 20 | 2 mLs | | | | mL 2 mL, Other, ONCE, Sharon | | 18 11:32 | | | | | 18 at 1130, For 1 dose | | AM PDT | | | | + +-------+ +-------+---+---+ +---+---+ | | | +---+---+ + +-------+ +-------+---+ + | lidocaine buffered 1.3% | Given | 07/31/20 | 6 mLs | | Other | | injection 6 mL 6 mL, | | 18 11:27 | | | (Comment | | Intradermal, ONCE, Sharon 07/31/18 | | AM PDT | | | ) | | at 1130, For 1 dose | | | | [...]
--- OUTSIDE RECORDS SUMMARY | ~2019-10-18 | XMS | Encounter Summary ---
Demographics + + + | Address | [address] | | | [place] [address] | + + + | Home Phone [...] Team Providers + +------+ + | Care Agent Telegrapher Name | Role | Phone | + [...] Provider Unknown | | | | | [address] | [phone] | | | | | [phone] | | | +--------+ + + + [...] | | | | | | [place] [address] | | | | | | [phone] | | | | | | | [...] | | Dictated: 09/15/2013 10:44 AM Job: [id number] | | + + + + + [...] Dictated: 09/15/2013 10:44 AM | | Job: [id number] | + + documented in this encounter Visit Diagnoses + + | Diagnosis | + + | S/P lumbar fusion Arthrodesis status | + + documented in this encounter"
--- OUTSIDE RECORDS SUMMARY | ~2019-10-18 | XMS | Encounter Summary ---
Demographics + + + | Address | [address] | | | [place] [address] | + + + | Home Phone | | + + + | Preferred Language | Unknown | + + + | Marital Status | | + + + | Moravian Affiliation | [id number] | + + + [...] Team Providers + +------+ + | Care Neon Light Installer Name | Role | Phone | + +------+ + | Jesus Eagle MD | PCP | | + +------+ + Encounter Details +--------+ + + + + | Date | Type | Department | Care Team | Description | +--------+ + + + + | 03/28/ | Hospital | [facility] | Deidra, | Acute chest pain; | | 2015 - | Encounter | [facility] | MD [address] | Secondary | | | | CLINICAL DECISION | [address] | hypertension, | | 03/29/ | | [address] | [place] [address] | unspecified; Digoxin | | 2014 | | [place], [place] | [phone] | toxicity, | | | | [id number] | | undetermined intent, | | | | [phone] | | subsequent | | | | [...] Summaries by Anne-Marie Bello MD at 03/29/15 4987 Author: Anne-Marie Bello MD Service: (none) Author Type: Physician Filed: 03/30/15 1422 Date of Service: 03/29/151642 Status: Signed Stage Settings Painter: Anne-Marie Bello MD (Physician) Related Notes: Original Note by Anne-Marie Bello MD (Physician) filed at 03/29/15 1650 [facility] Service: Hospitalist Physician Discharge Summary Patient ID: [...] fibrillation, hypertension, hyperlipide katelin, was transferred from [facility] with chest pain. The patient has chest pressu re and her symptoms have been going on for about 5 days. Heart rate is in the 50s and 60s an d she was seen at [facility]. Digoxin level was 3.7 and the patient wa s transferred to [facility]. Her digoxin level was low at [facility] and she had serial cardiac enzymes, [...] Disposition: Home Follow up: Emory Eagle MD [address] [place] [address] [address] [facility] [address] Schedule an appointment as soon as possible for a visit in 3 days Follow up echocardiogram results outpatient follow-up with cardiology, [facility] [place] [address] [facility] 115 [facility] [address] Schedule an appointment as soon as possible [...] summary. This entry has been created using [employer] Speech Recognition software and REach. The entry has been reviewed and there [...] 03/29/151717 Date of Service: 03/29/151716 Status: Signed Stage Settings Painter: Kayley Mccarthy RN (Registered Nurse) Pt discharge [...] Date of Service: 03/29/15 1257 Status: Signed Stage Settings Painter: Jhoana Campbell RN (Registered Nurse) 03/29/15 1258 Discharge Planning Evaluation Admitting Diagnosis Chest Pain [...] Discharge No Mental Status Oriented Power of Charger Operator No;Other (comment) (provided POA and AD forms to patient) Anticipated Discharge Plan Post Acute Care Needs None at this time Plan communicated to patient/family Yes Resources Financial concerns No Transportation issues No Patient/Family concerns No Prescription Plan Yes Name of Pharmacy [place], [place] and [facility] Previous home health equipment Yes Equipment Vendor see above Vascular access device No Ostomy/Drains/Appliances No Anticipated Disposition Facility Type Home Medicare Important Message (TANIA) Not applicable Met with: Pt and discussed discharge planning, Pt is a 75 y.o., female who lives with her amalia toddband and children in a private residence in [facility]. At this time she denies any tatiana ncial, safety, DME, support, or transportation needs. Patient's PCP is: EMORY EAGLE Patient's insurance: Medicare, [employer] Coverage concerns: no Medication coverage/concerns: no [...] 03/29/15218 Date of Service: 03/29/15218 Status: Signed Stage Settings Painter: Dora Dotson RPH (Pharmacist) Clinical Pharmacy Note: [...] | | | | | | [place] [address] | | | | | | [phone] | | | | | | | [...] | | | Fingerstick | performed at [facility];[address] | | LAB | | | [address];[place], [place] | | | | | | [address] | | | | + + + [...] | | | Fingerstick | performed at [facility];[address] | | LAB | | | [address];[place], [place] | | | | | | [address] | | | | + + + [...] | | | Fingerstick | performed at [facility];[address] | | LAB | | | | [address];[place] | | | | | | [address] | | | | + + + [...] is moderately enlarged. 7. | | | Ympc-ew-jwqwquml mitral regurgitation is present. 8. Moderate | [...] | | | is moderately enlarged. 7. Czai-ih-gtbairdd mitral regurgitation is | | | present. [...] mitral valve. Mitral | | | Valve: Gzsl-ya-qdijezpq mitral regurgitation is present. Mitral | | [...] | | | Excursion: 2.04 cm E-F Hampton: 0.12 m/s IVC diameter: 2.34 | | | cm IVC collapse: 0.39 cm IVC % collapse: 80.99 % AR Dec | | | Hampton: 1.14 m/s2 AR Dec Time: 1303.55 ms [...] TV A Rubin: 0.47 m/s TV Dec [place]: 2.03 m/s2 | | | TV Dec Time: 324.24 ms TV E Rubin: 0.66 m/s TV E/A Ratio: | | | 1.38 Sausage Tier: Authenticated by: JONATHAN FOWLER MD Report | | | Date/Time: -- [id number] | | + + + + + [...] right atrium is moderately enlarged.7. | | Etpo-hy-zjndfagt mitral regurgitation is present.8. Moderate tricuspid regurgitation [...] Normal appearing mitral valve.Mitral | | Valve: Ovgz-ts-dqzqjjkh mitral regurgitation is present.Mitral Valve: Mild thickening [...] mlLAESV Index (A-L): 31.25 ml/m2LAAs A2C: 18.38 [id number] A-L A2C: 52.98 mlLALs | | A2C: 5.41 cmLAAs A4C: 21.69 [id number] A-L A4C: 64.70 mlLALs A4C: 6.17 cmAo Diam: | | 3.26 cmAV Cusp: 2.25 cmLA Diam: 4.30 cmLA/Ao: 1.31%FS: 44.17 %EDV(Teich): | | 135.56 mlEF(Teich): 74.99 %ESV(Teich): 33.89 mlIVSd: 1.17 cmIVSs: 1.74 cmLVIDd: | | 5.30 cmLVIDs: 2.96 cmLVPWd: 1.25 cmLVPWs: 2.09 cmSV(Teich): 101.66 mlD-E | | Excursion: 2.04 cmE-F Hampton: 0.12 m/sIVC diameter: 2.34 cmIVC collapse: 0.39 | | cmIVC % collapse: 80.99 %AR Dec Hampton: 1.14 m/s2AR Dec Time: 1303.55 msAR maxPG: | | 8.90 mmHgAR PHT: 378.03 msAR Vmax: 1.49 m/sHR: 54.35 BPMAV maxP.35 mmHgAV | | meanP.15 mmHgAV Vmax: 2.25 m/Vikas Vmean: 1.30 m/Vikas VTI: 45.07 cmAVA Vmax: | | 2.30 cm2AVA (VTI): 2.44 hb5WZXR Dopp: 2.96 l/cfnt5UTZO Dopp: 5.93 l/minHR: 53.85 | | BPMLVOT maxP.23 mmHgLVOT meanP.39 mmHgLVSI Dopp: 55.10 ml/m2LVSV Dopp: | | 110.20 mlLVOT Vmax: 1.34 m/sLVOT Vmean: 0.84 m/sLVOT VTI: 28.49 cmMR maxPG: | | 109.78 mmHgMR Vmax: 5.23 m/sMV A Rubin: 0.29 m/sMV DecT: 229.92 msMV E Rubin: 1.17 | | m/sMV E/A Ratio: 3.95MV PHT: 69.29 msMVA By PHT: 3.17 mv9Couetl e': 0.05 | | m/sSeptal E/e': 21.58Lateral [...] 2.82 m/sTV A Rubin: 0.47 m/sTV Dec Hampton: 2.03 m/s2TV Dec Time: | | 324.24 msTV E Rubin: 0.66 m/sTV E/A Ratio: 1.38 Sausage Tier: ASAuthenticated by: | | JONATHAN FOWLER [facility] MEDICAL CENTEReport Date/Time: -- [id number] IMPRESSION: 1. Overall left | | ventricular [...] right atrium is moderately | | enlarged.7. Uvju-zo-nwurbxdc mitral regurgitation is present.8. Moderate tricuspid | [...] | |D-E Excursion: 2.04 cm | |E-F Hampton: 0.12 m/s | |IVC diameter: 2.34 cm | |IVC collapse: 0.39 cm | |IVC % collapse: 80.99 % | |AR Dec Hampton: 1.14 m/s2 | |AR Dec Time: 1303.55 [...] A Rubin: 0.47 m/s | |TV Dec Hampton: 2.03 m/s2 | |TV Dec Time: 324.24 ms | |TV E Rubin: 0.66 m/s | |TV E/A Ratio: 1.38 | | | |Sausage Tier: | |Authenticated by: JONATHAN FOWLER MD | |Report Date/Time: -[id number] | | | |IMPRESSION: | |1. Overall [...] right atrium is moderately enlarged. | |7. Pplt-ud-aryqonaj mitral regurgitation is present. | |8. Moderate [...] | | | Fingerstick | performed at [facility];[address] | | LAB | | | | [address];[place], [place] | | | | | | [address] | | | | + + + [...] EXTERNAL | | | | performed at [facility];[address] | | LAB | | | | [address];[place], [place] | | | | | | [address] | | | | + + + [...] | | | | | | ACUTE AR Testing | | | | | | performed at [facility];[address] | | | | | | [address];[place], [place] | | | | | | [address] | | | | + + + [...] | | | | | [place] [address] | | | | + + + + + + | RED CELL | 3.90Comment: Testing | 3.70 - 5.10 | EXTERNAL | | | COUNT | performed at [facility], [address] | M/uL | LAB | | | | [address], | | | | | | [place] [address] | | | | + + + + + + | Hgb | 12.2Comment: Testing | 11.3 - 15.5 | EXTERNAL | | | | performed at [facility], [address] | g/dL | LAB | | | | [address], | | | | | | [place] [address] | | | | + + + + + + | Hematocrit, | 36.7Comment: Testing | 34.0 - 46.0 % | EXTERNAL | | | POC | performed at [facility], [address] | | LAB | | | | [address], | | | | | | [place] [address] | | | | + + + + + + | MCV | 94.1Comment: Testing | 80.0 - 100.0 fl | EXTERNAL | | | | performed at [facility], [address] | | LAB | | | | [address], | | | | | | [place] [address] | | | | + + + + + + | MCH | 31.3Comment: Testing | 27.0 - 34.0 pg | EXTERNAL | | | | performed at [facility], [address] | | LAB | | | | [address], | | | | | | [place] [address] | | | | + + + + + + | MCHC | 33.3Comment: Testing | 32.0 - 35.5 | EXTERNAL | | | | performed at [facility], [address] | g/dL | LAB | | | | [address], | | | | | | [place] [address] | | | | + + + + + + | RDW-CV | 41.1Comment: Testing | 37 - 53 fl | EXTERNAL | | | | performed at [facility], [address] | | LAB | | | | [address], | | | | | | [place] [address] | | | | + + + + + + | Platelet | 276Comment: Testing | 150 - 400 K/uL | EXTERNAL | | | Count | performed at [facility], [address] | | LAB | | | Plasma | [address], | | | | | | [place] [address] | | | | + + + + + + | MPV | 8.1Comment: Testing | fl | EXTERNAL | | | | performed at [facility], [address] | | LAB | | | | [address], | | | | | | [place] [address] | | | | + + + + + + | Differentia | AUTOMATEDComment: | | EXTERNAL | | | l Type | Testing performed at | | LAB | | | | [facility], [address] | | | | | | [place] | | | | | | [address] | | | | + + + + + + | % Segmented | 64.20Comment: Testing | % | EXTERNAL | | | | performed at [facility], [address] | | LAB | | | Neutrophils | [address], | | | | | | [place] [address] | | | | + + + + + + | % | 24.61Comment: Testing | % | EXTERNAL | | | Lymphocytes | performed at [facility], [address] | | LAB | | | | [address], | | | | | | [place] [address] | | | | + + + + + + | % Monocytes | 8.05Comment: Testing | % | EXTERNAL | | | | performed at [facility], [address] | | LAB | | | | [address], | | | | | | [place] [address] | | | | + + + + + + | % | 2.30Comment: Testing | % | EXTERNAL | | | Eosinophils | performed at [facility], [address] | | LAB | | | | [address], | | | | | | [place] [address] | | | | + + + + + + | % Basophils | 0.84Comment: Testing | % | EXTERNAL | | | | performed at [facility], [address] | | LAB | | | | [address], | | | | | | [place] [address] | | | | + + + + + + | Absolute | 5.25Comment: Testing | 1.90 - 7.40 | EXTERNAL | | | Segmented | performed at [facility], [address] | K/uL | LAB | | | Neutrophils | [address], | | | | | | [place] [address] | | | | + + + + + + | Absolute | 2.01Comment: Testing | 1.00 - 3.90 | EXTERNAL | | | Lymphocytes | performed at [facility], [address] | K/uL | LAB | | | | [address], | | | | | | [place] [address] | | | | + + + + + + | Absolute | 0.66Comment: Testing | 0.00 - 0.80 | EXTERNAL | | | Monocytes | performed at [facility], [address] | K/uL | LAB | | | | [address], | | | | | | [place] [address] | | | | + + + + + + | Absolute | 0.19Comment: Testing | 0.00 - 0.50 | EXTERNAL | | | Eosinophils | performed at [facility], [address] | K/uL | LAB | | | | [address], | | | | | | [place] [address] | | | | + + + + + + | Absolute | 0.07Comment: Testing | 0.00 - 0.10 | EXTERNAL | | | Basophils | performed at [facility], [address] | K/uL | LAB | | | | [address], | | | | | | [place] [address] | | | | + + [...] EXTERNAL | | | | performed at [facility], [address] | uIU/mL | LAB | | | | [address], | | | | | | [place] [address] | | | | + + + [...] | | | | | [place] [address] | | | | + + + [...] EXTERNAL | | | | performed at [facility], [address] | | LAB | | | | [address], | | | | | | [place] [address] | | | | + + + [...] | EXTERNAL | | | A1c | [facility] | | LAB | | | [...] | | | | | performed at [facility], [address] | | | | | [address], | | | | | | [place] [address] | | | | + + + [...] | | | | | performed at [facility], [address] | | | | | | [facility], | | | | | | [place] [address] | | | | + + + [...] EXTERNAL | | | | performed at [facility];[address] | | LAB | | | [address];[place], [place] | | | | | | [address] | | | | + + + [...] | | | Total | performed at [facility], [address] | | LAB | | | | [address], | | | | | | [place] [address] | | | | + + + + + + | Albumin | 3.7Comment: Testing | 3.3 - 4.8 g/dL | EXTERNAL | | | | performed at [facility], [address] | | LAB | | | | [address], | | | | | | [place] [address] | | | | + + + + + + | Bilirubin | 1.0Comment: Testing | 0.1 - 1.5 mg/dL | EXTERNAL | | | Total | performed at [facility], [address] | | LAB | | | | [address], | | | | | | [place] [address] | | | | + + + + + + | Bilirubin | 0.2Comment: Testing | 0.0 - 0.3 mg/dL | EXTERNAL | | | Direct | performed at [facility], [address] | | LAB | | | | [address], | | | | | | [place] [address] | | | | + + + + + + | ALP, | 66Comment: Testing | 35 - 115 U/L | EXTERNAL | | | External | performed at [facility], [address] | | LAB | | | | [address], | | | | | | [place] [address] | | | | + + + + + + | AST | 16Comment: Testing | 10 - 45 U/L | EXTERNAL | | | | performed at [facility], [address] | | LAB | | | | [address], | | | | | | [place] [address] | | | | + + + + + + | ALT | 9 (L)Comment: Testing | 10 - 65 U/L | EXTERNAL | | | | performed at [facility], [address] | | LAB | | | | [address], | | | | | | [place] [address] | | | | + + + [...] EXTERNAL | | | | performed at [facility], [address] | | LAB | | | | [address], | | | | | | [place] [address] | | | | + + + + + + | Triglycerid | 142Comment: Testing | mg/dL | EXTERNAL | | | es | performed at [facility], [address] | | LAB | | | | [address], | | | | | | [place] [address] | | | | + + + + + + | HDL | 27 (L)Comment: Testing | mg/dL | EXTERNAL | | | | performed at [facility], [address] | | LAB | | | | [address], | | | | | | [place] [address] | | | | + + + + + + | LDL | 33Comment: Testing | mg/dL | EXTERNAL | | | Cholesterol | performed at [facility], [address] | | LAB | | | , | [address], | | | | | Calculated, | [place] [address] | | | | | External | [...] | | | | | [place] [address] | | | | + + + + + + | K | 3.7Comment: Testing | 3.5 - 4.9 | EXTERNAL | | | | performed at [facility], [address] | mmol/L | LAB | | | | [address], | | | | | | [place] [address] | | | | + + + + + + | Cl | 103Comment: Testing | 99 - 109 mmol/L | EXTERNAL | | | | performed at [facility], [address] | | LAB | | | | [address], | | | | | | [place] [address] | | | | + + + + + + | CO2 | 32Comment: Testing | 23 - 32 mmol/L | EXTERNAL | | | | performed at [facility], [address] | | LAB | | | | [address], | | | | | | [place] [address] | | | | + + + + + + | Anion Gap | 9Comment: Testing | 5 - 20 mmol/L | EXTERNAL | | | | performed at [facility], [address] | | LAB | | | | [address], | | | | | | [place] [address] | | | | + + + + + + | Glucose, | 123 (H)Comment: Testing | 65 - 99 mg/dL | EXTERNAL | | | Fasting | performed at [facility], [address] | | LAB | | | | [address], | | | | | | [place] [address] | | | | + + + + + + | BUN | 15Comment: Testing | 8 - 25 mg/dL | EXTERNAL | | | | performed at [facility], [address] | | LAB | | | | [address], | | | | | | [place] [address] | | | | + + + + + + | Creatinine | 0.99Comment: Testing | 0.50 - 1.00 | EXTERNAL | | | | performed at [facility], [address] | mg/dL | LAB | | | | [address], | | | | | | [place] [address] | | | | + + + + + + | BUN/Creatin | 15Comment: Testing | | EXTERNAL | | | ine Ratio | performed at [facility], [address] | | LAB | | | | [address], | | | | | | [place] [address] | | | | + + + + + + | Calcium | 9.4Comment: Testing | 8.5 - 10.5 | EXTERNAL | | | | performed at [facility], [address] | mg/dL | LAB | | | | [address], | | | | | | [place] [address] | | | | + + + + + + | Protein, | 6.0 (L)Comment: Testing | 6.3 - 8.2 g/dL | EXTERNAL | | | Total | performed at [facility], [address] | | LAB | | | | [address], | | | | | | [place] [address] | | | | + + + + + + | Albumin | 3.7Comment: Testing | 3.3 - 4.8 g/dL | EXTERNAL | | | | performed at [facility], [address] | | LAB | | | | [address], | | | | | | [place] [address] | | | | + + + + + + | Globulin | 2.3Comment: Testing | 1.3 - 4.9 g/dL | EXTERNAL | | | | performed at [facility], [address] | | LAB | | | | [address], | | | | | | [place] [address] | | | | + + + + + + | A/G Ratio | 1.6Comment: Testing | 1.0 - 2.4 | EXTERNAL | | | | performed at [facility], [address] | | LAB | | | | [address], | | | | | | [place] [address] | | | | + + + + + + | Bilirubin | 1.0Comment: Testing | 0.1 - 1.5 mg/dL | EXTERNAL | | | Total | performed at [facility], [address] | | LAB | | | | [address], | | | | | | [place] [address] | | | | + + + + + + | ALP, | 66Comment: Testing | 35 - 115 U/L | EXTERNAL | | | External | performed at [facility], [address] | | LAB | | | | [address], | | | | | | [place] [address] | | | | + + + + + + | AST | 13Comment: Testing | 10 - 45 U/L | EXTERNAL | | | | performed at [facility], [address] | | LAB | | | | [address], | | | | | | [place] [address] | | | | + + + + + + | ALT | 11Comment: Testing | 10 - 65 U/L | EXTERNAL | | | | performed at [facility], [address] | | LAB | | | | [facility], | | | | | | [place] [address] | | | | + + + [...] | | | | | | at [facility], [address] | | | | | | [facility], | | | | | | [place] [address] | | | | + + + [...] + + | Historically converted procedure from [facility] | EXTERNAL LAB | + + + [...] EXTERNAL | | | | performed at [facility] | | LAB | | | | [address];[place], [place] | | | | | | [address] | | | | + + + + + + | CK-MB Index | UNABLE TO | | EXTERNAL | | | | CALCULATEComment: | | LAB | | | | Testing performed at | | | | | | [facility];[address] | | | | | | [address];[place] [address] | | | | + + + [...] | | | | | | ACUTE AR Testing | | | | | | performed at [facility] | | | | | | [facility];[place], [place] | | | | | | [address] | | | | + + + [...] EXTERNAL | | | | performed at [facility];[address] | | LAB | | | | [address];[place] | | | | | | [address] | | | | + + + [...] | | | Fingerstick | performed at [facility];[address] | | LAB | | | | [address];[place], [place] | | | | | | [address] | | | | + + + [...] | | | | | | ACUTE AR Testing | | | | | | performed at [facility];[address] | | | | | | [facility];[place], [place] | | | | | | [address] | | | | + + + [...] EXTERNAL | | | | performed at [facility];[address] | K/uL | LAB | | | | [address];[place] | | | | | | [address] | | | | + + + + + + | RED CELL | 4.12Comment: Testing | 3.70 - 5.10 | EXTERNAL | | | COUNT | performed at [facility];[address] | M/uL | LAB | | | | [address];[place] | | | | | | [address] | | | | + + + + + + | Hgb | 13.1Comment: Testing | 11.3 - 15.5 | EXTERNAL | | | | performed at [facility];[address] | g/dL | LAB | | | | [address];[place] | | | | | | [address] | | | | + + + + + + | Hematocrit, | 38.6Comment: Testing | 34.0 - 46.0 % | EXTERNAL | | | POC | performed at [facility];[address] | | LAB | | | | [address];[place] | | | | | | [address] | | | | + + + + + + | MCV | 93.7Comment: Testing | 80.0 - 100.0 fl | EXTERNAL | | | | performed at [facility];[address] | | LAB | | | | [address];[place] | | | | | | [address] | | | | + + + + + + | MCH | 31.9Comment: Testing | 27.0 - 34.0 pg | EXTERNAL | | | | performed at [facility];[address] | | LAB | | | | [address];[place] | | | | | | [address] | | | | + + + + + + | MCHC | 34.0Comment: Testing | 32.0 - 35.5 | EXTERNAL | | | | performed at [facility];[address] | g/dL | LAB | | | | [address];[place] | | | | | | [address] | | | | + + + + + + | RDW-CV | 41.6Comment: Testing | 37 - 53 fl | EXTERNAL | | | | performed at [facility];[address] | | LAB | | | | [address];[place] | | | | | | [address] | | | | + + + + + + | Platelet | 264Comment: Testing | 150 - 400 K/uL | EXTERNAL | | | Count | performed at [facility];[address] | | LAB | | | Plasma | [address];[place] | | | | | | [address] | | | | + + + + + + | MPV | 7.5Comment: Testing | fl | EXTERNAL | | | | performed at [facility];[address] | | LAB | | | | [address];[place] | | | | | | [address] | | | | + + + + + + | Differentia | AUTOMATEDComment: | | EXTERNAL | | | l Type | Testing performed at | | LAB | | | | [facility];[address];[place] [address] | | | | + + + + + + | % Segmented | 64.94Comment: Testing | % | EXTERNAL | | | | performed at [facility];[address] | | LAB | | | Neutrophils | [address];[place] | | | | | | [address] | | | | + + + + + + | % | 24.79Comment: Testing | % | EXTERNAL | | | Lymphocytes | performed at [facility];[address] | | LAB | | | | [address];[place] | | | | | | [address] | | | | + + + + + + | % Monocytes | 7.10Comment: Testing | % | EXTERNAL | | | | performed at [facility];[address] | | LAB | | | | [address];[place] | | | | | | [address] | | | | + + + + + + | % | 2.09Comment: Testing | % | EXTERNAL | | | Eosinophils | performed at [facility];[address] | | LAB | | | | [address];[place] | | | | | | [address] | | | | + + + + + + | % Basophils | 1.08Comment: Testing | % | EXTERNAL | | | | performed at [facility];[address] | | LAB | | | | [address];[place] | | | | | | [address] | | | | + + + + + + | Absolute | 5.78Comment: Testing | 1.90 - 7.40 | EXTERNAL | | | Segmented | performed at [facility];[address] | K/uL | LAB | | | Neutrophils | [address];[place] | | | | | | [address] | | | | + + + + + + | Absolute | 2.21Comment: Testing | 1.00 - 3.90 | EXTERNAL | | | Lymphocytes | performed at [facility];[address] | K[address]uL | LAB | | | | [address];[place] | | | | | | [address] | | | | + + + + + + | Absolute | 0.63Comment: Testing | 0.00 - 0.80 | EXTERNAL | | | Monocytes | performed at [facility] [place];888 | K/uL | LAB | | | | [address];[place] | | | | | | [address] | | | | + + + + + + | Absolute | 0.19Comment: Testing | 0.00 - 0.50 | EXTERNAL | | | Eosinophils | performed at [facility] [place];888 | K/uL | LAB | | | | [address];[place] | | | | | | [address] | | | | + + + + + + | Absolute | 0.10Comment: Testing | 0.00 - 0.10 | EXTERNAL | | | Basophils | performed at [facility] [place];888 | K/uL | LAB | | | | [address];[place] | | | | | | [address] | | | | + + + [...] | | Last Dose | performed at [facility] [place];[address] | | LAB | | | | [address];[place] | | | | | | [address] | | | | + + + + + + | Time of | UNKNOWNComment: Testing | | EXTERNAL | | | Last Dose | performed at [facility] [place];[address] | | LAB | | | | [address];[place] | | | | | | [address] | | | | + + + + + + | Digoxin | 0.3 (L)Comment: Testing | 0.90 - 2.00 | EXTERNAL | | | level | performed at [facility] [place];888 | ng/mL | LAB | | | | [address];[place] | | | | | | [address] | | | | + + + [...] EXTERNAL | | | | performed at [facility] [place];888 | mmol/L | LAB | | | | [address];[place], [place] | | | | | | [address] | | | | + + + + + + | K | 3.8Comment: Testing | 3.5 - 4.9 | EXTERNAL | | | | performed at [facility] [place];888 | mmol/L | LAB | | | | [address];[place] | | | | | | [address] | | | | + + + + + + | Cl | 103Comment: Testing | 99 - 109 mmol/L | EXTERNAL | | | | performed at [facility] [place];[address] | | LAB | | | | [address];[place] | | | | | | [address] | | | | + + + + + + | CO2 | 30Comment: Testing | 23 - 32 mmol/L | EXTERNAL | | | | performed at [facility] [place];[address] | | LAB | | | | [address];[place] | | | | | | [address] | | | | + + + + + + | Anion Gap | 11Comment: Testing | 5 - 20 mmol/L | EXTERNAL | | | | performed at [facility];[address] | | LAB | | | | [address];[place] | | | | | | [address] | | | | + + + + + + | Glucose, | 197 (H)Comment: Testing | 65 - 99 mg/dL | EXTERNAL | | | Fasting | performed at [facility];[address] | | LAB | | | | [address];[place] | | | | | | [address] | | | | + + + + + + | BUN | 16Comment: Testing | 8 - 25 mg/dL | EXTERNAL | | | | performed at [facility];[address] | | LAB | | | | [address];[place] | | | | | | [address] | | | | + + + + + + | Creatinine | 1.10 (H)Comment: Testing | 0.50 - 1.00 | EXTERNAL | | | | performed at [facility];888 | mg/dL | LAB | | | | [address];[place] | | | | | | [address] | | | | + + + + + + | BUN/Creatin | 14Comment: Testing | | EXTERNAL | | | ine Ratio | performed at [facility];888 | | LAB | | | | [address];[place] | | | | | | [address] | | | | + + + + + + | Calcium | 9.1Comment: Testing | 8.5 - 10.5 | EXTERNAL | | | | performed at [facility];888 | mg/dL | LAB | | | | [address];[place] | | | | | | [address] | | | | + + + + + + | Protein, | 6.9Comment: Testing | 6.3 - 8.2 g/dL | EXTERNAL | | | Total | performed at [facility];888 | | LAB | | | | [address];[place] | | | | | | [address] | | | | + + + + + + | Albumin | 3.7Comment: Testing | 3.3 - 4.8 g/dL | EXTERNAL | | | | performed at [facility];[address] | | LAB | | | | [address];[place] | | | | | | [address] | | | | + + + + + + | Globulin | 3.1Comment: Testing | 1.3 - 4.9 g/dL | EXTERNAL | | | | performed at [facility];[address] | | LAB | | | | [address];[place] | | | | | | [address] | | | | + + + + + + | A/G Ratio | 1.2Comment: Testing | 1.0 - 2.4 | EXTERNAL | | | | performed at [facility];[address] | | LAB | | | | [address];[place] | | | | | | [address] | | | | + + + + + + | Bilirubin | 0.9Comment: Testing | 0.1 - 1.5 mg/dL | EXTERNAL | | | Total | performed at [facility];[address] | | LAB | | | | [address];[place] | | | | | | [address] | | | | + + + + + + | ALP, | 88Comment: Testing | 35 - 115 U/L | EXTERNAL | | | External | performed at [facility];[address] | | LAB | | | | [address];[place] | | | | | | [address] | | | | + + + + + + | AST | 16Comment: Testing | 10 - 45 U/L | EXTERNAL | | | | performed at [facility];[address] | | LAB | | | | [address];[place] | | | | | | [address] | | | | + + + + + + | ALT | 16Comment: Testing | 10 - 65 U/L | EXTERNAL | | | | performed at [facility];[address] | | LAB | | | | [address];[place] | | | | | | [address] | | | | + + + [...] | | | | | | at [facility];[address] [place] [address] | | | | | | [facility];[place] [address] | | | | + + + [...] (500), | | | | | | editor managing newspaper Flora Francisco | | | | | | (25) on 03/29/2015 | | | | | | 1:03:13 AM | | | | + + + + + + + + | Specimen | + + | | + + + + + | Narrative | Performed At | + + + | Historically converted procedure from [facility] Epic environment | EXTERNAL LAB | + [...]
--- OUTSIDE RECORDS SUMMARY | ~2019-10-18 | XMS | Encounter Summary ---
Demographics + + + | Address | [address] | | | [place] [address] | + + + | Home Phone [...] Team Providers + +------+ + | Care Theoretical Physics Teacher Name | Role | Phone | + +------+ + PCP | Unavailable | + +------+ + Encounter Details +--------+ + + + + | Date | Type | Department | Care Team | Description | +--------+ + + + + | 09/07/ | Hospital | [facility] | Unknown, | | | 1991 | Encounter | MED CTR XRAY [address] | MD Tita | | | | | [place] [address] | | | | | | [place] [address] | (Fax) | | | | | [phone] | | | +--------+ + + + [...] | | | | | | [place] [address] | | | | | | | [...]
--- OUTSIDE RECORDS SUMMARY | ~2019-10-18 | XMS | Encounter Summary ---
Demographics + + + | Address | [address] | | | [place] [address] | + + + | Home Phone [...] Team Providers + +------+ + | Care Mobile Battery Technician Name | Role | Phone | + +------+ + | Jesus Mijares MD | PCP | | + +------+ + Encounter Details +--------+ + + + + | Date | Type | Department | Care Team | Description | +--------+ + + + + | 03/06/ | Hospital | [facility] | Anaidaroldo, | Lumbar radiculopathy | | 2016 | Encounter | MED CTR XRAY [address] | [address] | (Primary Dx); | | | | [place] | [facility], | Spinal stenosis of | | | | [place] [address] | [place] [address] | lumbar region - | | | | [phone] | [phone] | 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 | [address] | [place], [place] | [phone] | | [facility] | | [address] | | | - IMAGING | | | | + + + + + [place] SRINIVAS Lumbar Transforaminal (03/06/2016 3:59 PM PDT) + + | Specimen | + + | | + + + + + | Narrative | Performed At | + + + | 03/06/2016 Bilateral Transforaminal Epidural Steroid Injections | [facility] | | and Trochanteric Bursa Injection on Right Diagnosis: Lumbar | [facility] | | radiculopathy and Trochanteric bursitis ICD-10 Codes M54.16 and | [facility] | | M70.61 Rebecca Castillo presents to [...] ST. | [address] | [place], [place] | [phone] | | [facility] | | [address] | | | - IMAGING | | [...]
--- OUTSIDE RECORDS SUMMARY | ~2019-10-18 | XMS | Encounter Summary ---
Demographics + + + | Address | [address] | | | [place] [address] | + + + | Home Phone | | + + + | Preferred Language | Unknown | + + + | Marital Status | | + + + | Mormonism Affiliation | Unknown | + + + | Race | White | + + + | Ethnic Group | Not or | + + + Author + + + | Author | [facility] | + + + | Organization | [facility] | + + + | Address [...] Team Providers + +------+ + | Care Vice President Of Finance Name | Role | Phone | + [...] as of this encounter Progress Notes Interface, Finished Cigar Maker In - 10/24/2006 3:06 AM PST [facility] Account No. PROGRESS RECORD Name Rebecca aCstillo Birthdate 1940 Date Probl Time em FORMAT: PROBLEM NUMBER and TITLE: S=Subjective Number O=Objective A=Analysis P=Plans CLINIC DATE: 06/29/1998 PLASTIC SURGERY CLINIC SUBJECTIVE: Mrs. Castillo is a 58-year-old woman who sustained an injury to her left leg from a horse on 05/01/98. She sustained a distal fibular fracture that has been treated by Dr. Mena in [place], [place]. She also developed an 8 x [...] if any problems develop. Kavon Melton M.D. [facility] Plastic [facility] Reconstructive Surgery TOREY/michael d ocumented in this encounter Plan of Treatment Not on filedocumented as of this encounter Visit Diagnoses Not on filedocumented in this encounter"
--- OUTSIDE RECORDS SUMMARY | ~2019-10-18 | XMS | Encounter Summary ---
Demographics + + + | Address | [address] | | | [place] [address] | + + + | Home Phone [...] Team Providers + +------+ + | Care General Manager Food Name | Role | Phone | + +------+ + | Jesus Mijares MD | PCP | | + +------+ + Encounter Details +--------+ + + + + | Date | Type | Department | Care Team | Description | +--------+ + + + + | 12/05/ | Orders Only | [facility] | Conversion | | | 2019 | | NEPHROLOGY ELEAZAR | Transaction, | | | | | [address] | Provider Unknown | | | | | [address] [facility] [place] | | | | | | [address] | (Fax) | | | | | [phone] | | | +--------+ + + + [...] | | | | | | [place] [address] | | | | | | [phone] | | | | | | | [...]
--- OUTSIDE RECORDS SUMMARY | ~2019-10-18 | XMS | Encounter Summary ---
Demographics + + + | Address | [address] | | | [place] [address] | + + + | Home Phone [...] Team Providers + +------+ + | Care Technology Auditor Name | Role | Phone | + [...] Thoracic or | [place], | [address] | | | | | lumbosacral | Nilson Jensen MD | [place], | | | | | neuritis or | [address] | [place] | | | | | | ST [place] | [address] | | | | | radiculitis, | [place], [place] | Phone: | | | | | unspecified | [address] | [phone] | | | | | Procedures | Phone: | Fax: | | | | | [place] INJECT | [phone] | [phone] | | | | | ANES/STEROID | Fax: | | | | | | FORAMEN | [phone] | | | | | | LUMBAR/SACRA | | | | | | | L W IMG | | | | | | | GUIDE ,1 | | | | | | | [place]EL [place] | | | | | | | [...] + + | 04/28/ | Hospital | [facility] | Bogdanowicz, | Lumbar | | 2015 | Encounter | MED CTR XRAY [address] | [address] | radiculopathy; | | | | [address] [place] | [facility], | Spinal stenosis of | | | | [place] [address] | [place] [address] | lumbar region - | | | | [phone] | [phone] | 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 | [address] | [place], [place] | [phone] | | [facility] | | [address] | | | - IMAGING | | [...]
--- OUTSIDE RECORDS SUMMARY | ~2019-10-18 | XMS | Encounter Summary ---
Demographics + + + | Address | [address] | | | [place] [address] | + + + | Home Phone [...] Team Providers + +------+ + | Care Community Pharmacist Name | Role | Phone | + +------+ + | Jesus Mijares MD | PCP | | + +------+ + Reason for Visit + + + | Reason | Comments | + + + | Follow-up | post bilateral L4-L5 TFESI on 04/29/17 | + + + Encounter Details +--------+ + + + + | Date | Type | Department | Care Team | Description | +--------+ + + + + | 07/09/ | Telephone | [facility] | Christiano, | Follow-up (post | | 2017 | | PHYSIATRY [address] | [address] | bilateral L4-L5 | | | | [place], | [facility] [place], | TFESI on 04/29/17) | | | | [place] [address] | [place] [address] | | | | | [phone] | | | | | | | [...] [place], | | | | | | [place] [address] | | | | | | [phone] | | | | | | | [...]
--- OUTSIDE RECORDS SUMMARY | ~2019-10-18 | XMS | Encounter Summary ---
Demographics + + + | Address | [address] | | | [place] [address] | + + + | Home Phone | | + + + | Preferred Language | Unknown | + + + | Marital Status | | + + + | Sabianism Affiliation | 1027 | + + + | Race | Unknown | + + + | Ethnic Group | Unknown | + + + Author + + + | Author | [facility] | | | and [place] | + + + | Organization | [facility] | | [...] Team Providers + +------+ + | Care Human Geography Instructor Name | Role | Phone | + [...] + + | 07/09/ | Telephone | [facility] | Christiano, | Follow-up (post | | 2017 | | PHYSIATRY [address] | [address] | bilateral L4-L5 | | | | [place], | [place], | TFESI on 04/29/17) | | | | [place] [address] | [place] [address] | | | | | [phone] | [phone] | | | | | | | [...] [place], | | | | | | [place] [address] | | | | | | [phone] | | | | | | | [...]
--- OUTSIDE RECORDS SUMMARY | ~2019-10-18 | XMS | Encounter Summary ---
Demographics + + + | Address | [address] | | | [place] [address] | + + + | Home Phone | | + + + | Preferred Language | Unknown | + + + | Marital Status | | + + + | Cheondoism Affiliation | 1027 | + + + | Race | Unknown | + + + | Ethnic Group | Unknown | + + + Author + + + | Author | [facility] | | | and [place] | + + + | Organization | [facility] | | | and [place] | + + + | Address | Unknown | + + + | Phone | Unavailable | + + + Support + + +---------+ + | Name | Relationship | Address | Phone | + + +---------+ + | Cruz Mariano | ECON | Unknown | | + + +---------+ + | Carmine Mraiano | ECON | Unknown | | + + +---------+ + Care Team Providers + +------+ + | Care Community Outreach Manager Name | Role | Phone | + +------+ + | Jesus Mijares MD | PCP | | + +------+ + Encounter Details +--------+ + + + + | Date | Type | Department | Care Team | Description | +--------+ + + + + | 05/30/ | Orders Only | [facility] | Conversion | | | 2018 | | NEPHROLOGY ELEAZAR | Transaction, | | | | | [address] | Provider Unknown | | | | | [address] [place], [place] | | | | | | [address] | (Fax) | | | | | [phone] | | | +--------+ + + + [...] | | | | | | [place] [address] | | | | | | [phone] | | | | | | | [...] | EXTERNAL LAB: CBC | Routin | 06/03/2018 | | Results for this | | | e | 2:45 PM | | procedure are in the | | | | PDT | | results section. | + +--------+ + + + | PROTEIN/CREATININE | Routin | 05/30/2018 | | Results for this | | RATIO, URINE | e | 12:15 PM | | procedure are in the | | | | PDT | | results section. | + +--------+ + + + | URIC ACID | Routin | 05/30/2018 | | Results for this | | | e | 12:15 PM | | procedure are in the | | | | PDT | | results section. | + +--------+ + + + | PARATHYROID HORMONE, | Routin | 05/30/2018 | | Results for this | | INTACT | e | 12:15 PM | | procedure are in the | | | | PDT | | results section. | + +--------+ + + + | MAGNESIUM | Routin | 05/30/2018 | | Results for this | | | e | 12:15 PM | | procedure are in the | | | | PDT | | results section. | + +--------+ + + + | RENAL FUNCTION PANEL | Routin | 05/30/2018 | | Results for this | | | e | 12:15 PM | | procedure are in the | | | | PDT | | results section. | + +--------+ + + + documented in this encounter Results External Lab: CBC (06/03/2018 2:45 PM PDT) + +-------+ + + + | Component | Value | Ref Range | Performed | Pathologist | | | | | At | Signature | + +-------+ + + + | WBC | 6.8 | 4.5 - 11.0 10 | EXTERNAL | | | | | | LAB | | + +-------+ + + + | RED CELL | 4.23 | 3.8 - 5.1 10 | EXTERNAL | | | COUNT | | | LAB | | + +-------+ + + + | Hgb | 13.6 | 12 - 16 g/dL | EXTERNAL | | | | | | LAB | | + +-------+ + + + | Hematocrit, | 39.4 | 35 - 45 % | EXTERNAL | | | POC | | | LAB | | + +-------+ + + + | MCV | 93.2 | 81 - 99 fL | EXTERNAL [...] +-------+ + + + | Platelet | 254 | 140 - 440 K/ L | EXTERNAL | | | Count | | | LAB | | | Plasma | | | | | + +-------+ + + + | RDW-CV | 13.5 | 10.5 - 15.0 % | EXTERNAL [...] + +---------+ + + Protein/Creatinine Ratio, Urine (05/30/2018 12:15 PM PDT) + +-------+ + + + | Component | Value | Ref Range | Performed | Pathologist | | | | | At | Signature | + +-------+ + + + | Protein/Cre | 87 | 0 - 150 | EXTERNAL | [...] | + +---------+ + + Uric Acid (05/30/2018 12:15 PM PDT) + +-------+ + + + | Component | Value | Ref Range | Performed | Pathologist | | | | | At | Signature | + +-------+ + + + | Uric Acid | 5.9 | 2.3 - 6.6 | EXTERNAL | [...] + +---------+ + + Parathyroid Hormone, Intact (05/30/2018 12:15 PM PDT) + + + + + + | Component | Value | Ref Range | Performed | Pathologist | | | | | At | Signature | + + + + + + | PTH INTACT | 84.72 (A) | 15 - 65 pg/mL | [...] | | + +---------+ + + Magnesium (05/30/2018 12:15 PM PDT) + +---------+ + + + | Component | Value | Ref Range | Performed | Pathologist | | | | | At | Signature | + +---------+ + + + | Magnesium | 1.5 (A) | 1.7 - 2.5 mg/dL | [...] + +---------+ + + Renal Function Panel (05/30/2018 12:15 PM PDT) + +---------+ + + + | Component | Value | Ref Range | Performed | Pathologist | | | | | At | Signature | + +---------+ + + + | Glucose, | 155 (A) | 70 - 100 mg/dL | EXTERNAL | | | Fasting | | | LAB | | + +---------+ + + + | BUN | 17 | 6 - 23 mg/dL | EXTERNAL | | | | | | LAB | | + +---------+ + + + | Creatinine | 0.9 | 0.7 - 1.18 | EXTERNAL | | | | | mg/dL | LAB | | + +---------+ + + + | PHOSPHORUS | 2.8 | 2.5 - 5.0 mg/dL | EXTERNAL [...] +---------+ + + + | K | 3.5 (A) | 3.6 - 5.1 | EXTERNAL | | | | | mmol/L | LAB | | + +---------+ + + + | Cl | 96 | 95 - 112 mmol/L | EXTERNAL | | | | | | LAB | | + +---------+ + + + | CO2 | 35 (A) | 19 - 31 mmol/L | EXTERNAL | | | | | | LAB | | + +---------+ + + + | Anion Gap | 12.5 | 7 - 21 mmol/L | EXTERNAL | | | | | | LAB | | + +---------+ + + + | eGFR if not | | | EXTERNAL | | | | | | LAB | | | SWISS | | | | | + +---------+ + + + | Phosphorus, | | | EXTERNAL | | | Inorganic | | | LAB | | + +---------+ + + + | BUN/Creatin | 18.9 | 6.0 - 28.6 | EXTERNAL | | | ine Ratio | | | LAB | | + +---------+ + + + | Calcium | 9.0 | 8.5 - 10.3 | EXTERNAL | | | | | mg/dL | LAB | | + +---------+ + + + | Estimated | 61 | mg/dL | EXTERNAL | | | [...]
--- OUTSIDE RECORDS SUMMARY | ~2019-10-18 | XMS | Clinical Summary ---
Demographics + + + | Address | [address] | | | [place] [address] | + + + | Home Phone | | + + + | Preferred Language | Unknown | + + + | Marital Status | | + + + | Yarsani Affiliation | [phone] | + + + [...] Providers + +------+ + | Care Hand Bander Name | Role | Phone | + +------+ + | Jesus Mijares MD | PCP | | + +------+ + Allergies + + + + + + | Active Allergy | Reactions | Severity | Noted | Comments | | | | | Date | | + + + + + + | Penicillin V | | | | | | Potassium | | | | | + + + + + + | Sitagliptin | Rash | Medium | 10/21/19 | | | | | | 16 | | + + + + + + | Sulfa Antibiotics | | | | | + + + + + + Medications + + + +---------+------+------+-------+ | Medication | Sig | Dispensed | Refills | Star | End | Statu | | | | | | t | Date | s | | | | | | Date | | | + + + +---------+------+------+-------+ | acetaminophen | Take 500 mg by mouth | | 0 | | | Activ | | (TYLENOL) 500 mg | every 6 hours as | | | | | e | | tablet | needed for Pain. | | | | | | + + + +---------+------+------+-------+ | cloNIDine | Take 0.1 mg by mouth | | 0 | | | Activ | | (CATAPRES) 0.1 mg | 3 times daily. | | | | | e | | tablet | | | | | | | + + + +---------+------+------+-------+ | torsemide | Take 20 mg by mouth | | 0 | | | Activ | | (DEMADEX) 20 mg | 3 times daily. | | | | | e | | tablet | | | | | | | + + + +---------+------+------+-------+ | | Take 1 tablet by | | 0 | | | Activ | | HYDROcodone-acetamin | mouth every 4 hours | | | | | e | | ophen (NORCO) 10-325 | as needed. | | | | | | | mg per tablet | | | | | | | + + + +---------+------+------+-------+ | sotalol (BETAPACE) | Take 80 mg by mouth | | 0 | | | Activ | | 80 mg tablet | 2 times daily. | | | | | e | + + + +---------+------+------+-------+ | atorvaSTATin | Take 20 mg by mouth. | | 0 | | | Activ | | (LIPITOR) 20 mg | | | | | | e | | tablet | | | | | | | + + + +---------+------+------+-------+ | cyclobenzaprine | Take 10 mg by mouth | | 0 | | | Activ | | (FLEXERIL) 10 mg | 3 times daily as | | | | | e | | tablet | needed. | | | | | | + + + +---------+------+------+-------+ | baclofen | | | 0 | 01/2 | | Activ | | (LIORESAL) 20 mg | | | | 3/20 | | e | | tablet | | | | 18 | | | + + + +---------+------+------+-------+ | allopurinol | TAKE ONE TABLET BY | | 0 | 07/1 | | Activ | | (ZYLOPRIM) 100 mg | MOUTH ONCE DAILY | | | 820 | | e | | tablet | | | | 18 | | | + + + +---------+------+------+-------+ | cephalexin | Take 500 mg by mouth | | 0 | 06/1 | | Activ | | (KEFLEX) 500 mg | 4 times daily. | | | 1/20 | | e | | capsule | | | | 19 | | | + + + +---------+------+------+-------+ | cholecalciferol | Take 1,000 Units by | | 0 | | | Activ | | (CHOLECALCIFEROL) | mouth Daily. | | | | | e | | 1,000 units capsule | | | | | | | + + + +---------+------+------+-------+ | digoxin (LANOXIN) | Take 125 mg by mouth | | 0 | 05/2 | | Activ | | 125 mcg tablet | nightly. | | | 20 | | e | | | | | | 19 | | | + + + +---------+------+------+-------+ | amitriptyline | Take 10 mg by mouth | | 0 | | | Activ | | (ELAVIL) 10 mg | nightly. | | | | | e | | tablet | | | | | | | + + + +---------+------+------+-------+ | traZODone | Take 100 mg by mouth | | 3 | 06 | | Activ | | (DESYREL) 100 mg | nightly. | | | 20 | | e | | tablet | | | | 19 | | | + + + +---------+------+------+-------+ | warfarin | Take 6 mg by mouth | | 99 | 06/0 | | Activ | | (COUMADIN) 6 MG | Daily. Patient | | | 20 | | e | | tablet | taking 6 mg tablet | | | 19 | | | | | on Saturday, | | | | | | | | Saturday, , | | | | | | | | and Saturday | | | | | | + + + +---------+------+------+-------+ | warfarin | Taking 4 mg tablet | | 0 | 03/15 | | Activ | | (COUMADIN) 4 MG | on Saturday and | | | 0/ | | e | | tablet | Saturday | | | 19 | | | + + + +---------+------+------+-------+ | losartan (COZAAR) | Take 1 tablet by | 90 | 3 | 10/0 | | Activ | | 50 mg tablet | mouth Daily. | tablet | | 11/02 | | e | | | | | | 19 | | | + + + +---------+------+------+-------+ | digoxin (LANOXIN) | Take 0.25 mg by | | 0 | | 12/1 | Disco | | 50 mcg/mL solution | mouth. | | | | 0/20 | ntinu | | | | | | | 19 | ed | | | | | | | | (Ana Luisa | | | | | | | | ent | | | | | | | | Not | | | | | | | | Takin | | | | | | | | g) | + + + +---------+------+------+-------+ Active Problems + + + | Problem | Noted Date | + + + | Chronic diastolic heart failure | 06/16/2019 | + + + | Hx of corticosteroid therapy | 02/18/2019 | + + + | Subacromial bursitis of right shoulder joint | 12/01/2018 | + + + | CHF (congestive heart failure) | 07/31/2018 | + + + + + | Overview: Overview: Chronic Diastolic Heart Failure, | | predominantly right-sided sxs (edema)09/22/2019Volume status | | improved. Euvolemic on examination today. | |Volume status improved. Euvolemic on examination today. | + + + + + | Hypokalemia | 06/04/2018 | + + + | Hypomagnesemia | 06/04/2018 | + + + | Rotator cuff tear, right | 02/06/2018 | + + + | Nontraumatic tear of right supraspinatus tendon | 01/03/2018 | + + + | Acute pain of right shoulder | 11/12/2017 | + + + | Cardiac pacemaker in situ | 09/03/2017 | + + + + ---------+ | Overview: Sylvia S-53 cm, model 153110, #[id number] lead was | | placed into the right ventricle and screwed intoposition on the | | septum, midway between the apex and outflow tract. Thefinal | | pacing threshold was 1 V at 0.5 msec, with R waves of 5.9 mV and | | theimpedance was 550 ohms. There was no diaphragmatic pacing at | | 10 V. Moximed model 5076-45 cm lead was placed into [...] ohms. The leads were attached to a [employer] Etrinsa 8 | | , model 511086,serial #[id number] pacemaker. FINAL | | SETTINGS FOR THE [...] sensing thresholds. Appropriate device | | function seen.09/22/2019Normal lead thresholds and battery | | status. Device was adjusted to optimize battery length while | | maintaining adequate safety margins. Apacing 70%, RV pacing 66%. | | 7.9 years battery longevity. 1% burden of AF, 11 AT/AF events in | | last month, longest episode 28 minutes. Rate overall is | | well-controlled. | |of AF, 11 AT/AF events in last month, longest episode 28 minutes. Rate overall is well-cont rolled. | + ---------+ + + + | Depression | 03/20/2017 | + + + + + | Overview: Overview: She has had no fun for quite a while. | | Does beadwork and watches TV.09/03/2017Enjoys making jewelry for | | her friends. | |09/03/2017 | |Enjoys making jewelry for her friends. | + + + + + | Gastroesophageal reflux | 03/20/2017 | + + + + + | Overview: She has symptoms of gastroesophageal reflux. Takes | | Rolaids on a regular basis. | + + + + + | Sacroiliitis, not elsewhere classified | 09/11/2016 | + + + | Sick sinus syndrome | 06/05/2016 | + + + + [...] patient and she | | desires to proceed.09/01/2019status post permanent pacemaker | | implantation. Good heart rate histograms are documented given the | | CLS rate response algorithm on her Biotronik pacemaker. | + + + + + | Trochanteric bursitis of right hip | 03/06/2016 | + + + | Chronic kidney disease, stage III (moderate) | 12/06/2015 | + + + | Paroxysmal atrial flutter | 12/06/2015 | + + + | Hypertension | 12/06/2015 | + + + + + | Overview: 09/22/2019SBP improved since increasing Losartan 3 | | weeks ago. She keeps BP log at home. | + + + + + | Type 2 diabetes mellitus | 12/06/2015 | + + + + + | Overview: Overview: | | was on insulin at one time, stopped after weight loss | + + + + + | Atrial fibrillation | 12/06/2015 | + + + + + | Overview: Overview: Paroxysmal, "for most of my adult life", | | on Digitek for > 40 years09/22/2019AF burden has improved to 1%. | | She is not grossly symptomatic when she goes in to atrial | | fibrillation. Longest episode 28 minutes. She continues on | | Sotalol 80mg BID with significantly improved burden, down from | | 75%. This dosage of Sotalol cannot be increased due to her CKD. | | Request labwork from [facility]. Check Digoxin level. Check TSH. | + + + + + | Essential hypertension | 03/28/2015 | + + + | Hyperlipidemia | 03/28/2015 | + + + | Chest pain | 03/28/2015 | + + + | Bradycardia | 03/28/2015 | + + + | Spinal stenosis of lumbar region - L3/L4, adjacent segment | 08/09/2014 | | disease | | + + + | Lumbar scoliosis | 08/09/2014 | + + + | Chronic back pain | 06/24/2014 | + + + | Facet arthritis of lumbar region | 03/06/2013 | + + + | Carpal tunnel syndrome, bilateral | 01/26/2013 | + + + | DEGENERATIVE DISC DISEASE, LUMBAR SPINE | 02/26/2012 | + + + | LUMBAR RADICULOPATHY | | + + + | CAD | | + + + Resolved Problems + + + + | Problem | Noted | Resolved | | | Date | Date | + + + + | Diabetes mellitus | 03/28/20 | | | | 15 | 8 | + + + + | SACROILIITIS | | | | | | 8 | + + + + | Bursitis, hip | | | | | | 8 | + + + + | Obesity | | | | | | 8 | + + + + | BACK PAIN, LUMBAR | | | | | | 8 | + + + + | SCOLIOSIS , IDIOPATHIC | | | | | | 8 | + + + + | DIABETES WITH PERIPHERAL NEUROPATHY | | | | | | 8 | + + + + | Spondylolisthesis | | | | | | 8 | + + + + Encounters +--------+ + + + + | Date | Type | Specialty | Care Team | Description | +--------+ + + + + | 09/22/ | Office | Cardiology | Mary Moe, SAI | Paroxysmal atrial | | 2019 | Visit | | | flutter ([facility]) | | | | | | (Primary Dx); PSVT | | | | | | (paroxysmal | | | | | | supraventricular | | | | | | tachycardia) ([facility]); | | | | | | Paroxysmal atrial | | | | | | fibrillation ([facility]); | | | | | | Hypertension, | | | | | | unspecified type; | | | | | | Congestive heart | | | | | | failure, unspecified | | | | | | HF chronicity, | | | | | | unspecified heart | | | | | | failure type ([facility]); | | | | | | Cardiac pacemaker in | | | | | | situ | +--------+ + + + + | 09/22/ | Procedure | Cardiology | | Sick sinus syndrome | | 2019 | visit | | | ([facility]) (Primary Dx); | | | | | | Chronic diastolic | | | | | | heart failure ([facility]); | | | | | | Cardiac pacemaker | | | | | | in situ; Paroxysmal | | | | | | atrial fibrillation | | | | | | ([facility]) | +--------+ + + + + | 09/02/ | Office | Physical Medicine | Balbir Beckford PA-C | Chronic bilateral | | 2019 | Visit | and Rehabilitation | | low back pain with | | | | | | sciatica, sciatica | | | | | | laterality | | | | | | unspecified (Primary | | | | | | Dx); Current use of | | | | | | snf | | | | | | anticoagulation; | | | | | | Adolescent | | | | | | idiopathic scoliosis | | | | | | of lumbar region; | | | | | | Lumbar | | | | | | radiculopathy; Right | | | | | | knee pain, | | | | | | unspecified | | | | | | chronicity; | | | | | | Paroxysmal atrial | | | | | | fibrillation ([facility]); | | | | | | Age-related | | | | | | osteoporosis without | | | | | | current | | | | | | pathological | | | | | | fracture | +--------+ + + + + | 09/01/ | Procedure | Cardiology | | Cardiac pacemaker in | | 2019 | visit | | | situ (Primary Dx) | +--------+ + + + + | 09/01/ | Office | Cardiology | Mary Moe ANP | Paroxysmal atrial | | 2018 | Visit | | | flutter ([facility]) | | | | | | (Primary Dx); PSVT | | | | | | (paroxysmal | | | | | | supraventricular | | | | | | tachycardia) ([facility]); | | | | | | Cardiac pacemaker in | | | | | | situ; Congestive | | | | | | heart failure, | | | | | | unspecified HF | | | | | | chronicity, | | | | | | unspecified heart | | | | | | failure type ([facility]); | | | | | | Paroxysmal atrial | | | | | | fibrillation ([facility]); | | | | | | Hypertension, | | | | | | unspecified type; | | | | | | Sick sinus syndrome | | | | | | ([facility]) | +--------+ + + + + | 08/31/ | Telephone | Cardiology | Macey Goel | CHF Management | | 2018 | | | TETRYL BLENDER OPERATOR | | +--------+ + + + + | 08/27/ | Procedure | Cardiology | Goeljanuary, | Cardiac pacemaker in | | 2019 | visit | | TETRYL BLENDER OPERATOR | situ (Primary Dx) | +--------+ + + + + from Last 3 Months Immunizations + + + + | Name | Administration Dates | Next Due | + + + + | INFLUENZA PF | 10/03/2013 | | | TRIVALENT(PED/ADOL/A | | | | DULT), PSKT | | | + + + + | PNEUMOCOCCAL PCV7 | 08/02/2009 | | | (PED) | | | + + + + Family History + + + + + | Medical History | Relation | Name | Comments | + + + + + | High blood pressure | Brother | Kana | | | | | [place] | | + + + + + | High cholesterol | Brotheddie | Kana | from stroke age 73 | | | | [place] | | + + + + + | Arthritis | Mother | Ada | Hands | | | | [place] | | + + + + + + + +--------+ + | Relation | Name | Status | Comments | + + +--------+ + | Brother | Kana | | | | | [place] | | | + + +--------+ + | Mother | Ada | | | | | [place] | | | + + +--------+ + Social History + +-------+ +--------+------+ | [...] recent travel history available. | + + Last Filed Vital Signs + [...] | 36.2 C (97.1 F) | 06/04/2018 1:31 PM | | | | | PDT | | + + + + + | Respiratory Rate | 20 | 09/23/2018 1:01 PM | | | | | PST [...] | | + + + + + Plan of Treatment [...] | | | | | | [place] [address] | | | | | | [phone] | | | | | | | [...] | | | Dtap/Tdap/Td (1 - | 3 | | | | Tdap) | | | | + + + + + | Diabetic Eye Exam | 05/15/196 | | | | | 0 | | | + + + + + | Diabetic Foot Exam | | | | | | 0 | | | + + + + + | Vaccine: Zoster (1 | | | | | of 2) | 2 | | | + + + + + | Breast Cancer | | | | | Screening | 7 | | | + + + + + | Vaccine: | | | | | Pneumococcal 65+ (1 | 7 | | | | of 2 - PCV13) | | | | + + + + + | Adult Annual | | | | | Wellness Visit | 5 | | | + + + + + | Hemoglobin A1c | | 03/12/2017, 11/01/2015, | | | Screening | 7 | 03/29/2015 | | + + + + + | Vaccine: Influenza | Completed | 07/17/2019, 10/03/2013 | | + + + + + Implants + +--------+------+ +--------+--------+--------+ | Implanted | Type | Area | Manufacture | Device | Shelf | Model | | | | | r | | Expira | / | | | | | | Identi | tion | Serial | | | | | | fier | Date | / Lot | + +--------+------+ +--------+--------+--------+ | Hemostat Floseal Needle Free | Generi | | MCGRATH | | | [id number] | | 10ml - [id number]: | c | | BIOSCIENCE | | | 2 / | | Qty: 1 on 08/07/2013 | | | - BAXB | | | /[id number] | | | | | | | | 630 | + +--------+------+ +--------+--------+--------+ | Screw Edda Polyaxial 6.5x40mm | Implan | | JENNIFER | | | [id number] | | - [id number]: Qty: 3 | t | | MEDICAL - | | | 40 / / | | on 08/07/2013 | Ortho | | STRY | | | | + +--------+------+ +--------+--------+--------+ | Screw Edda Polyaxial 7.5x40mm | Implan | | JENNIFER | | | [id number] | | - [id number]: Qty: 1 | t | | MEDICAL - | | | 40 / / | | on 08/07/2013 | Ortho | | STRY | | | | + +--------+------+ +--------+--------+--------+ | Alia Nut Edda 04.5mm - | Implan | | JENNIFER | | | [id number] | | [id number]: Qty: 4 on | t | | MEDICAL - | | | 00 / / | | 08/07/2013 | Ortho | | STRY | | | | + +--------+------+ +--------+--------+--------+ | Yvonne Pritchett 0d 11mm | Implan | | JENNIFER | | | [id number] | | 10x33 - [id number]: | t | | MEDICAL - | | | 00 / / | | Qty: 1 on 08/07/2013 | Ortho | | STRY | | | | + +--------+------+ +--------+--------+--------+ | Yong Edda 3 Prebent Ti 4.5x40mm | Implan | | JENNIFER | | | [id number] | | - [id number]: Qty: 1 | t | | MEDICAL - | | | 040 / | | on 08/07/2013 | Ortho | | STRY | | | / | + +--------+------+ +--------+--------+--------+ | Yong Edda 3 Precut Ti 4.5x45mm | Implan | | JENNIFER | | | [id number] | | - [id number]: Qty: 1 | t | | MEDICAL - | | | 045 / | | on 08/07/2013 | Ortho | | STRY | | | / | + +--------+------+ +--------+--------+--------+ Procedures + +--------+ + + + | Procedure Name | Priori | Date/Time | Associated Diagnosis | Comments | | | ty | | | | + +--------+ + + + | ECG 12 LEAD | Routin | 09/22/2019 | Paroxysmal atrial | Results for this | | | e | 9:47 AM | flutter ([facility]) PSVT | procedure are in the | | | | PST | (paroxysmal | results section. | | | | | supraventricular | | | | | | tachycardia) ([facility]) | | | | | | Paroxysmal atrial | | | | | | fibrillation ([facility]) | | + +--------+ + + + [...] | + +--------+ + + + | POCT FINGERSTICK INR | Routin | 09/02/2019 | Current use of | Results for this | | | e | 2:35 PM | medical terminologist | procedure are in the | | | | PST | anticoagulation | results section. | + +--------+ + + + | DEVICE INTERROGATION | Routin | 09/01/2019 | Cardiac pacemaker | Results for this | | | e | 1:45 PM | in situ | procedure are in the | | | | PST | | results section. | + +--------+ + + + | ECG 12 LEAD | Routin | 09/01/2019 | Paroxysmal atrial | Results for this | | | e | 1:40 PM | flutter ([facility]) PSVT | procedure are in the | | | | PST | (paroxysmal | results section. | | | | | supraventricular | | | | | | tachycardia) ([facility]) | | + +--------+ + + + | DEVICE | Routin | 08/27/2019 | Cardiac pacemaker | Results for this | | INTERROGATION- | e | 12:00 AM | in situ | procedure are in the | | REMOTE | | PST | | results section. | + +--------+ + + + from Last 3 Months Results ECG 12 lead (09/22/2019 9:47 AM PST)Only the most recent of 2 results within the time luís od is included. + + + + + + | [...] INTERPRETAT | Please refer to | | REGMT MUSE | | | ION TEXT | Providers office visit | | | | | | note for Providers | | | | | | Interpretation.Confirmed | | | | | | by [facility] Read Only, | | | | | | [facility] ([id number]), | | | | | | assistant family teacher Kervin Coker | | | | | | ([id number]) on 09/22/2019 | | | | | [...] | | | + +---------+ + + Device Interrogation (09/22/2019 9:30 AM PST)Only the most recent of 2 results within the time period is included. + + + | Narrative | Performed At | + + + | Lambert Renae | [facility] | | Jose Technologist 09/22/2019 10:18 AMDevice interrogation | | | done by Mary Moe Any events or changes listed in office note. See | | | device data attached to scheduled encounter for additional details. | | | compliance engineer products: Benjamin Garcia, compliance engineer products [facility] | | |See device data attached to scheduled encounter for additional | | |details. | | | | | |compliance engineer products: Benjamin Garcia, compliance engineer products [facility] | | | | | | | | + + + + +---------+ + + | Performing | Address | City/State/Zipcode | Phone Number | | Organization | | | | + +---------+ + + | [facility] | | | | + +---------+ + + POC Fingerstick INR (09/02/2019 2:35 PM PST) + +---------+ + + + | Component | Value | Ref Range | Performed | Pathologist | | | | | At | Signature | + +---------+ + + + | INR, POC | 3.9 (A) | 0.9 - 1.2 | [facility] | | | | | [facility] | | | | | | [facility] | | | | | | [facility] | | + +---------+ + + + | Instrument | | | [facility] | | | ID | | | [facility] | | | | | | [facility] | | | | | | LAB[facility]ATORY | | + +---------+ + + + + + | Specimen | + + | Blood | + + + + + + + | Performing | Address | City/State/Zipcode | Phone Number | | Organization | | | | + + + + + | [facility] | [address] | [place] [address] | [phone] | | [facility] | | | | | LABORATORY | | | | + + + + + Device Interrogation - Remote (08/27/2019 12:00 AM PST) + + + | Narrative | Performed At | + + + | Ignacio Benz | [facility] | | Technologist 08/27/2019 9:56 AMAlert Pt had alert on | | | 08/27/19Thoracic impedance trending down. | | |Thoracic impedance trending down. | | + + + + + | Procedure Note | + + | Ignacio Benz Technologist - 08/27/2019 9:55 AM PST Alert | | Pt had alert on 08/27/19 | | Thoracic impedance trending down. | + + + +---------+ + + | Performing | Address | City/State/Zipcode | Phone Number | | Organization | | | | + +---------+ + + | [facility] | | | | + +---------+ + + from Last 3 Months Additional Health Concerns + + + + | Infection | Noted Time | Resolved Time | + + + + | Methicillin-resistant Staphylococcus aureus | 03/20/2017 12:00 AM | | | | PDT | | + + + + Insurance + +--------+ +--------+ +---------+--------+ | Payer | Benefi | Subscriber | Effect | Phone | Address | Type | | | t Plan | ID | kennedi | | | | | | / | | Dates | | | | | | Group | | | | | | + +--------+ +--------+ +---------+--------+ | MEDICARE | MEDICA | [id number] | 02/12/20 | [phone] | | Medica | | | RE | | 07-Pre | 5 | | re | | | PART A | | sent | | | | | | AND B | | | | | | + +--------+ +--------+ +---------+--------+ | AARP | AARP | [id number] | 02/12/20 | [phone] | | Indemn | | | MDCR | | 07-Pre | 0 | | ity | | | SUPPL | | sent | | | | + +--------+ +--------+ +---------+--------+ | MEDICARE | MEDICA | [id number] | 02/12/20 | [phone] | | Medica | | | RE | | 07-Pre | 5 | | re | | | PART A | | sent | | | | | | AND B | | | | | | + +--------+ +--------+ +---------+--------+ | AARP | AARP | [id number] | 10/14/19 | [phone] | | Indemn | | | MDCR | | 19-Pre | 0 | | ity | | | SUPPL | | sent | | | | + +--------+ +--------+ +---------+--------+ + +--------+ +--------+ + + | Guarantor Name | Accoun | Relation to | Date | Phone | Billing Address | | | t Type | Patient | of | | | | | | | | | | + +--------+ +--------+ + + | Rebecca Castillo | Person | Self [birth year] | [address] | | | al/Fam | | 1940 | [phone] | [place], [place] | | | margarita | | | 5 (Home) | [phone] | + +--------+ +--------+ + + | Rebecca Castillo Ada | Person | Self [birth year] | [address] | | | al/Fam | | 1940 | [phone] | [place], [place] | | | margarita | | | 5 (Home) | [address] | + +--------+ +--------+ + + Advance Directives + + + + + | Type | Date Recorded | Patient | Explanation | | | | Histotechnician | | + + + + + | Power of | | | | | Heater Operator Helper | | | | + + + + + | Advance | 12/01/2018 3:06 | | | | Directive | PM | | | + + + + +
--- OUTSIDE RECORDS SUMMARY | ~2019-10-18 | XMS | Encounter Summary ---
Demographics + + + | Address | [address] | | | [place] [address] | + + + | Home Phone | | + + + | Preferred Language | Unknown | + + + | Marital Status | | + + + | Mosque Affiliation | [phone] | + + + [...] Team Providers + +------+ + | Care Founder President And Ceo Name | Role | Phone | + +------+ + | Jesus Mijares MD | PCP | | + +------+ + Reason for Visit + + + | Reason | Comments | + + + | Follow-up | | + + + Encounter Details +--------+---------+ + + + | Date | Type | Department | Care Team | Description | +--------+---------+ + + + | 09/01/ | Office | [facility] EP | Mary Moe ANP | Paroxysmal atrial | | 2019 | Visit | CARDIOLOGY IMLER | [address] | flutter ([facility]) | | | | [address] | [place], [place] | (Primary Dx); PSVT | | | | [place], [place] | [address] | (paroxysmal | | | | [address] | | supraventricular | | | | [phone] | | tachycardia) ([facility]); | | | | | | Cardiac pacemaker in | | | | | | situ; Congestive | | | | | | heart failure, | | | | | | unspecified HF | | | | | | chronicity, | | | | | | unspecified heart | | | | | | failure type ([facility]); | | | | | | Paroxysmal atrial | | | | | | fibrillation ([facility]); | | | | | | Hypertension, | | | | | | unspecified type; | | | | | | Sick sinus syndrome | | | | | | (HCC) [...] + + + | Blood Pressure | 128/60 | 09/01/2019 1:42 PM | | | | | PST | | + + + + + | Pulse | 62 | 09/01/2019 1:42 PM | | | | | PST | | + + + + + | Temperature | - | - | | + + + + + | Respiratory Rate | - | - | | + + + + + | Oxygen Saturation | 98% | 09/01/2019 1:42 PM | | | | | PST | | + + + + + | Inhaled Oxygen | - | - | | | Concentration | | | | + + + + + | Weight | 69.3 kg (152 lb 12.8 | 09/01/2019 1:42 PM | | | | oz) | PST | | + + + + + | Height | 162.6 cm (5' 4") | 09/01/2019 1:42 PM | | | | | PST | | + + + + + | Body Mass Index | 26.23 | 09/01/2019 1:42 PM | | | | | PST | | + + + + + documented in this encounter Progress Notes Mary Moe ANP - 09/01/2019 1:45 PM PST ELECTROPHYSIOLOGY OUTPATIENT FOLLOW UP PATIENT NAME: Rebecca Castillo : 1940: AGE: 79 y.o. (home) : PRIMARY CARE: Jesus Mijares MD Requesting Physician: No referring provider defined for this encounter. Plan SUMMARY OF EP RECOMMENDATIONS Continue current device settings, as appropriate device function. Atrial autocapture disabl ed and set to manual output today. Atrial sensitivity lowered to 0.5 to prevent atrial under sensing. Due for labs and ordered today Return to EP in 2 weeks or sooner PRN EK09/01/2019 personally reviewed and interpreted reveals AV Pacing with prolonged AV con duction HR 60, IL 288, QRSD 96, QTC 432 EP PROBLEMS ADDRESSED AT TODAY'S VISIT Problem List Atrial fibrillation Overview Overview: Paroxysmal, "for most of my adult life", on Digitek for > 40 years 09/01/2019 AF burden has improved to 4%. She is not grossly symptomatic when she goes in to atrial fib rillation. She continues on Sotalol 80mg BID with significantly improved burden, down from 7 5%. This dosage os Sotalol probably cannot be increased due to her CKD. Check labwork. Check Digoxin level. Check TSH. Cardiac pacemaker in situ Overview Setrox S-53 cm, model 262708, #[id number] lead was placed into the right ventricle [...] ohms. The leads were attached to a [employer] Etrinsa 8 , model 004345, serial #[id number] pacemaker. FINAL SETTINGS FOR THE DEVICE Mode [...] and sensing thresholds. Appropriate device function seen. 09/01/2019 Normal lead thresholds and battery status. Device was adjusted to optimize battery length w hile maintaining adequate safety margins. Apacing 73%, RV pacing 49%. 7.9 years battery long evity. 4% burden of AF, longest episode 11 hours and 59 minutes. Rate overall is well-contro lled. CHF (congestive heart failure) Overview Overview: Chronic Diastolic Heart Failure, predominantly right-sided sxs (edema) 09/01/2019 Volume status improved. Euvolemic on examination today. Hypertension Overview 09/01/2019 SBP improved since increasing Losartan one week ago. She keeps BP log at home. Paroxysmal atrial flutter Sick sinus syndrome Overview -- 2 Week Event Recorder (12/20/16): predominantly [...] rate response algorithm on her Biotronik pacemaker. COMPREHENSIVE PROBLEM LIST Patient Active Problem List Diagnosis Date Noted Chronic diastolic heart failure (HCC) 06/16/2019 Hx of corticosteroid therapy 02/18/2019 Subacromial bursitis of right shoulder joint 12/01/2018 CHF (congestive heart failure) (HCC) 07/31/2018 Note Last Updated: 09/01/2019 Overview: Chronic Diastolic Heart Failure, predominantly right-sided sxs (edema) 09/01/2019 Volume status improved. Euvolemic on examination today. Hypokalemia 06/04/2018 Hypomagnesemia 06/04/2018 Rotator cuff tear, right 02/06/2018 Nontraumatic tear of right supraspinatus tendon 01/03/2018 Acute pain of right shoulder 11/12/2017 Cardiac pacemaker in situ 09/03/2017 Note Last Updated: 09/01/2019 Setrox S-53 cm, model 831567, #[id number] lead was placed into the right ventricle [...] ohms. The leads were attached to a [employer] Etrinsa 8 , model 170080, serial #[id number] pacemaker. FINAL SETTINGS FOR THE DEVICE Mode [...] and sensing thresholds. Appropriate device function seen. 09/01/2019 Normal lead thresholds and battery status. Device was adjusted to optimize battery length w hile maintaining adequate safety margins. Apacing 73%, RV pacing 49%. 7.9 years battery long evity. 4% burden of AF, longest episode 11 hours and 59 minutes. Rate overall is well-contro lled. Depression 03/20/2017 Note Last Updated: 07/31/2018 Overview: She has had no fun for quite a while. Does beadwork and watches TV. 09/03/2017 Enjoys making jewelry for her friends. Gastroesophageal reflux 03/20/2017 Note Last Updated: 03/03/2019 She has symptoms of gastroesophageal reflux. Takes Rolaids on a regular basis. Sacroiliitis, not elsewhere classified (HCC) 09/11/2016 Sick sinus syndrome ([facility]) 06/05/2016 Note Last Updated: 09/01/2019 -- 2 [...] rate histograms are documented giv en the [facility] rate response algorithm on her Biotronik pacemaker. Trochanteric bursitis of right hip 03/06/2016 Chronic kidney disease, stage III (moderate) ([facility]) 12/06/2015 Paroxysmal atrial flutter ([facility]) 12/06/2015 Hypertension 12/06/2015 Note Last Updated: 09/01/2019 09/01/2019 SBP improved since increasing Losartan one week ago. She keeps BP log at home. Type 2 diabetes mellitus (HCC) 12/06/2015 Note Last Updated: 12/06/2015 Overview: was on insulin at one time, stopped after weight loss Atrial fibrillation (HCC) 12/06/2015 Note Last Updated: 09/01/2019 Overview: Paroxysmal, "for most of my adult life", on Digitek for > 40 years 09/01/2019 AF burden has improved to 4%. She is not grossly symptomatic when she goes in to atrial fib rillation. She continues on Sotalol 80mg BID with significantly improved burden, down from 7 5%. This dosage os Sotalol probably cannot be increased due to her CKD. Check labwork. Check Digoxin level. Check TSH. Essential hypertension 03/28/2015 Hyperlipidemia 03/28/2015 Chest pain 03/28/2015 Bradycardia 03/28/2015 Spinal stenosis of lumbar region - L3/L4, adjacent segment disease 08/09/2014 Lumbar scoliosis 08/09/2014 Chronic back pain 06/24/2014 Facet arthritis of lumbar region 03/06/2013 Carpal tunnel syndrome, bilateral 01/26/2013 LUMBAR RADICULOPATHY CAD DEGENERATIVE DISC DISEASE, LUMBAR SPINE 02/26/2012 HISTORY OF PRESENT ILLNESS This patient presents 09/01/2019 Reporting doing well. No chest pain. No shortness of charlene th, PND or orthopnea. No signs or symptoms of bleeding. Compliant with medications. Rare pal pitations, self-terminated, not bothersome to her. INR is managed by CC at [facility] and most recently was 2.1 on 07/29/2019 Allergies Allergen Reactions Sitagliptin Rash Penicillin V [...] by mouth nightly., Disp: , Rfl: 0 digoxin (LANOXIN) 50 mcg/mL solution, Take 0.25 mg by mouth., Disp: , Rfl: HYDROcodone-acetaminophen (NORCO) 10-325 mg per tablet, Take [...] Rfl: 3 warfarin (COUMADIN) 4 MG tablet, TAKE 1 TABLET BY MOUTH ONCE DAILY OR DIRECTED BY [facility], Disp: , Rfl: warfarin (COUMADIN) 6 MG tablet, Take 6 mg by mouth Daily., Disp: , Rfl: 99 The past history, social history, family history and problem list were reviewed and update d with changes of any significance. DATA Laboratory values which I reviewed 09/01/2019 are as follows: Lab Results Component Value [...] TRIG 117 03/14/2016 GLUF 117 (A) 12/05/2018 No results found for: BNP, TSH, CRP ROS I have personally reviewed and agree with ROS listed by ЕЛЕНА attached. All other systems are reviewed and negative. PHYSICAL EXAM BP 128/60 | Pulse 62 | Ht 1.626 m (5' 4") | Wt 69.3 kg (152 lb 12.8 oz) | SpO2 98% | B AR 26.23 kg/m Physical Exam Constitutional: She is oriented [...] normal. There is no tenderness. Musculoskeletal: General: Edema (1+ ankle edema BLE) present. Neurological: She is alert and oriented to person, place, and time. Skin: Skin is warm and dry. Device incision line is well approximated with no e/o infection or complication. Psychiatric: She has a normal mood and affect. Vitals reviewed. SAI Freeman 09/01/2019 2:38 PM *This report has been prepared using a voice recognition system. The report was reviewed f or accuracy, however, sound-alike word errors, addition and/or deletions may occur. If there is any question about this report please contact me. Patient Instructions No notes on file Brittani Ga Medic al Health Technician Hearing - 09/01/2019 1:45 PM Debbie CHRISTIANSEN Note- Electrophysiology Patient ID: Rebecca Castillo is a 79 y.o. female. Review of Systems Constitutional: Negative for chills, fever, malaise/fatigue and weight loss. HENT: Negative for congestion and sore throat. Respiratory: Negative for cough and shortness of breath. Cardiovascular: Positive for palpitations. Negative for chest pain and leg swelling. Gastrointestinal: Negative for abdominal pain and blood in stool. Genitourinary: Negative for hematuria. Musculoskeletal: Negative for myalgias. Neurological: Negative for dizziness, sensory change and loss of consciousness. Have you ever had a sleep study? (NO) Do you use oxygen? (NO) Do you use CPAP? (NO) Do you snore? (NO) Do you fall asleep for no reason during the day? (NO) Do you stop breathing at night? (NO) Do you feel excessively tired during the day? (NO) Samra cheatham in this encounter Plan of Treatment +--------+ [...] | | | | | | [place] [address] | | | | | | [phone] | | | | | | | [...] | | | | | | tachycardia) ([facility]) | | + +--------+ + + + documented in this encounter Results ECG 12 lead (09/01/2019 1:40 PM PST) + + + + + [...] + + + + | P-R | 288 | ms | [facility] | | | INTERVAL | | | | | + + + + + + | QRS | 96 | ms | [facility] | | | DURATION | | | | | + + + + + + | Q-T | 432 | ms | [facility] | | | INTERVAL | | | | | + + + + + + | Q-T | 432 | ms | [facility] | | | INTERVAL | | | | | | (CORRECTED) | | | | | + + + + + + | QRS AXIS | 12 | degrees | [facility] | | + + + + + + | T AXIS | 79 | degrees | [facility] | | + + + + + + | INTERPRETAT | Please refer to | | [facility] | | | ION TEXT | Providers office visit | | | | | | note for Providers | | | | | | Interpretation.Confirmed | | | | | | by [facility] [place] Read Only, | | | | | | [facility] Junie ([id number]), | | | | | | continuity editor Kervin Coker | | | | | | ([id number]) on 09/01/2019 | | | | | | 1:55:41 PM | | | | + + [...] + + | PSVT (paroxysmal supraventricular tachycardia) ([facility]) Paroxysmal supraventricular | | tachycardia | + + | Cardiac pacemaker in situ | + + | Congestive heart failure, unspecified HF chronicity, unspecified heart failure type | | (HCC) | + + | Paroxysmal atrial fibrillation ([facility]) Atrial fibrillation | + + | Hypertension, unspecified type | + + | Sick sinus syndrome (HCC) Sinoatrial node dysfunction | + + documented in this encounter Additional Health Concerns + + + + | Infection | Noted Time | Resolved Time | + + + + | Methicillin-resistant Staphylococcus aureus | 03/20/2017 12:00 AM | | | | PDT | | + + + + documented as of this encounter
--- OUTSIDE RECORDS SUMMARY | ~2019-10-18 | XMS | Encounter Summary ---
Demographics + + + | Address | [address] | | | [place] [address] | + + + | Home Phone [...] | Author | [facility] | [...] Team Providers + +------+ + | Care Chart Collector Name | Role | Phone | [...] + + | 12/03/ | Office | [facility] | Nilson Chaudhry | DEGENERATIVE DISC | | 2012 | Visit | PHYSIATRY [address] | MD Camila [address] | DISEASE, LUMBAR | | | | [place], | [place], [place] | SPINE (Primary Dx); | | | | [place] [address] | [address] | Lumbar | | | | [phone] | | radiculopathy; | | | | [...] - 12/03/2012 10:04 AM PST[facility] your scheduled [facility] to [...] our off ice. Please also provide a regional owner operator truck driver to take you home on the [...] | | | | | | [place] [address] | | | | | | [phone] | | | | | | | [...]
--- OUTSIDE RECORDS SUMMARY | ~2019-10-18 | XMS | Encounter Summary ---
Demographics + + + | Address | [address] | | | [place] [address] | + + + | Home Phone [...] + | Author | [facility] | | | and [place] | + + + | Organization | [facility] | | | [...] Providers + +------+ + | Care Supervisor Filter Assembly Name | Role | Phone | + +------+ + | Jesus Mijares MD | PCP | | + +------+ + Encounter Details +--------+ + + + + | Date | Type | Department | Care Team | Description | +--------+ + + + + | 09/12/ | Orders Only | [facility] | GoelJanuary, | | | 2017 | | CARDIOLOGY MIKEL | [address] | | | | | [address] | [address], | | | | | [place], [place] | [place] [address] | | | | | [address] | [phone] | | | | | [phone] | | | +--------+ + + + [...] | | | | | | [place] [address] | | | | | | [phone] | | | | | | | [...]
--- OUTSIDE RECORDS SUMMARY | ~2019-10-18 | XMS | Encounter Summary ---
Demographics + + + | Address | [address] | | | [place] [address] | + + + | Home Phone | | + + + | Preferred Language | Unknown | + + + | Marital Status | | + + + | Yazidism Affiliation | [id number] | + + + [...] Team Providers + +------+ + | Care First Assistant Name | Role | Phone | + +------+ + | Jesus Mijares MD | PCP | | + +------+ + Encounter Details +--------+ + + + + | Date | Type | Department | Care Team | Description | +--------+ + + + + | 10/02/ | Hospital | [facility] | Yong Pena | S/P lumbar fusion | | 2013 - | Encounter | [facility] | MD [address] | | | | | [address] | [address] | | | 10/14/ | | [place], [place] | [place] [address] | | | 2013 | | [address] | [phone] | | | | | [phone] | | | +--------+ + + + [...] Date of Service: 10/15/13 0648 Status: Signed Sealing Machine Operator: Manasa Ortega ARNP (Nurse Practitioner) Cosigner: Yong [...] year old female who was admitted to [facility] from clinic on for a draining [...] As tolerated Instructions/Follow-up: Discharge Instructions 1. Call [facility] office with any questions or concerns at [phone] (RN line ). 2. Sutures should come out post operative day [address] Pena's preference you re turn to his clinic for their removal. Please call [phone] to schedule appointment to amalia stanleye these [...] of infection, call the Nurse line at [phone]. 6. Follow up with your primary care physician as needed or as per next scheduled appointmen t. 7. Follow up at Dr. Pena's office in 6 weeks. Call to schedule appointment at [phone]. Imaging studies will be obtained at follow up. 8. For after hours emergencies, contact: soni Wilkerson [phone] robert Daniels [phone] Activity & Medications 1. Your activity will [...] Concerns please call your Physicians Office at: [phone] Preventing Infection As you recover from surgery we want you to heal and recover without added worry or problems . You may have heard of, or know someone, who had surgery and later went back to the [facility] because of an infection. These infections can [...] NICOLLE Gamble 10/15/2013, 06:48 Administrative Data: CPT [id number] than 30 min (Time spent: 55) CC: [...] 10/14/131102 Date of Service: 10/14/131100 Status: Signed Sealing Machine Operator: Priya Minaya RN (Registered Nurse) [facility] [place] Patient: Rebecca Castillo Date: 10/14/2013 Discharge instructions were given to patient. Learner indicates understanding. Discharge prescriptions were given to the patient. and faxed to [facility] in [place] Belongings verified with the patient: Yes [...] 10/14/13458 Date of Service: 10/14/13455 Status: Signed Sealing Machine Operator: Paulette Eastman RN (Registered Nurse) NSG Shift [...] 10/13/131805 Date of Service: 10/13/131802 Status: Addendum Sealing Machine Operator: Priya Minaya RN (Registered Nurse) Related Notes: [...] 2mg IV Di luadid and 2 tabs [place] for longer acting coverage. Pt VSS, ambulating [...] 10/13/131557 Date of Service: 10/13/131557 Status: Signed Sealing Machine Operator: Gerry Degroot MD (Physician) Brief op note Dx_dehiscence Op- Wound reconstruction C&S sent Drain in place Camryn SAVAGE Priya Shearer RN - 10/13/2013 2:17 PM PST Progress Notes by Priya Minaya RN at 10/13/131416 Author: Priya Minaya RN Service: (none) Author Type: Registered Nurse Filed: 10/13/131416 Date of Service: 10/13/131416 Status: Signed Sealing Machine Operator: Priya Minaya RN (Registered Nurse) [facility] [place] Note Brief Patient: Rebecca Castillo Pre op check list complete, need consent. Pt down to OR. Priya Minaya RN, 10/13/2013 2:17 PM oTim chicas MD - 10/13/2013 9:29 AM PST Progress Notes by iTm Alvarez MD at 10/13/13928 Author: Tim Alvarez MD Service: (none) Author Type: Physician Filed: 10/13/13929 Date of Service: 10/13/13928 Status: Signed Sealing Machine Operator: Tim Alvarez MD (Physician) Infectious Diseases Progress [...] Reviewed. Xray: None new Tim Alvarez MD [phone] anasa Ortega AR POWER BARKER OPERATOR - 10/13/2013 6:33 AM PST Progress Notes by Manasa Ortega ARNP at 10/13/13632 Author: Manasa Ortega ARNP Service: (none) Author Type: Nurse Practitioner Filed: 10/13/13829 Date of Service: 10/13/13632 Status: Signed Sealing Machine Operator: Manasa Ortega ARNP (Nurse Practitioner) Neurosurgery Progress [...] for itching 2. Pain - Continue scheduled [place] (2 tabs Q hours) with oxycodone 5-15 [...] 10/13/13424 Date of Service: 10/13/13419 Status: Signed Sealing Machine Operator: Jana Saleh RN (Registered Nurse) NSG Progress Note Brief Patient: Rebecca Castillo Neuro status no change overnight , reports pain well controlled with schedule [place] and Prn oxycodone . Ambulates to the [...] 10/12/131858 Date of Service: 10/12/131846 Status: Signed Sealing Machine Operator: Fabiana Cartwright RN (Registered Nurse) NS Progress Note Brief Patient: Rebecca Castillo Patient reported feeling itchy all over with no rash noticed over her body except for a sli ght reddish raised area to her left wrist with Benadryl po x 1 given with fair to adequate r elief. Yoli RN (Wound care) from [facility] called back to speak to RN taking [...] Date of Service: 10/12/13 1636 Status: Signed Sealing Machine Operator: Gerry Degroot MD (Physician) Plastic Surgery OR tomorrow, 3 PM, Npo after 6 am. Wound looks good on most recent photo from [facility] change. Camryn SAVAGE Rajendra Pulido [place] - 10/12/2013 3:22 PM PST . Progress Notes by Rajendra Mcnair at 10/12/13 1522 Author: Rajendra Mcnair Service: (none) Author Type: Filed: 10/12/13 1525 Date of Service: 10/12/13 152 Status: Signed Sealing Machine Operator: Rajendra Mcnair () Nurse referral. Visited with the patient and her . She is walking well, and then res ting. They are waiting for an evaluation before going home to [place], [place]. Both is goo d spirits. They told me of their life in [place], her love of animals. They miss their [...] Date of Service: 10/12/13 1506 Status: Signed Sealing Machine Operator: Jil Xavier RN (Registered Nurse) Message left at wound care office asking when dressing will be changed. Name and phone num sakina of freelance copywriter of this note given on message. onver everett Transaction, Provider Unknown - 10/12/2013 10:45 AM PST Progress Notes by Jil Xavier RN at 10/12/13 1045 Author: Jil Xavier RN Service: (none) Author Type: Registered Nurse Filed: 10/12/13 1050 Date of Service: 10/12/13 1045 Status: Signed Sealing Machine Operator: Jil Xavier RN (Registered Nurse) Patient notified [...] 10/12/135 Date of Service: 10/12/131041 Status: Signed Sealing Machine Operator: Jil Xavier RN (Registered Nurse) Patient's blood [...] Tim Alvarez MD at 10/12/13924 Author: Tim Alvaerz MD Service: (none) Author Type: Physician Filed: 10/12/13925 Date of Service: 10/12/13924 Status: Signed Sealing Machine Operator: Tim Alvarez MD (Physician) Infectious Diseases Progress [...] Reviewed. Xray: None new Tim Alvarez MD [phone] 35 min spent FTF, >50% time counseling and reviewing her hospitalization anasa Ortega AR POWER BARKER OPERATOR - 10/12/2013 6:28 AM PST Progress Notes by Manasa Ortega ARNP at 10/12/13627 Author: Manasa Ortega ARNP Service: (none) Author Type: Nurse Practitioner Filed: 10/12/13 0758 Date of Service: 10/12/13627 Status: Signed Sealing Machine Operator: Manasa Ortega ARNP (Nurse Practitioner) Neurosurgery Progress [...] for itching 2. Pain - Continue scheduled [place] (2 tabs Q hours) with oxycodone 5-15 [...] 10/12/13618 Date of Service: 10/12/13618 Status: Signed Sealing Machine Operator: Christine Lyon RN (Registered Nurse) NSLissa Progress [...] 005 Date of Service: 10/12/1346 Status: Signed Sealing Machine Operator: Fabiana Cartwright RN (Registered Nurse) [facility] Progress [...] Notes by Jil Xavier RN at 10/11/13 7597 Author: Jil Xavier RN Service: (none) Author Type: Registered Nurse Filed: 10/11/13 0051 Date of Service: 10/11/13 498 Status: Signed Sealing Machine Operator: Jil Xavier RN (Registered Nurse) Patient ambulating in room and hallway independently, using walker. Wound vac patent and i ntact. Pain managed with routine Pitts[place]. Apical pulse at 1400 was 64. Digoxin given per ve rbal order from neuro clinician (see nurse communication section of active orders). Plan: Continue plan of care. Brittani Escalante FNP - 10/11/2013 9:58 AM PST Progress Notes by Brittani Segura ARNP at 10/11/13957 Author: Brittani Segura ARNP Service: (none) Author Type: Nurse Practitioner Filed: 10/11/13 1006 Date of Service: 10/11/13957 Status: Signed Sealing Machine Operator: Brittani Segura ARNP (Nurse Practitioner) NSR Progress Note ID: Rebecca Castillo; 73 y.o. female Location: [facility] Attending Yong Pena MD Hospital [...] 09:58 7AM to 4PM reach me via [email or web address], 4PM to 7PM reach cross-cover via [email or web address] [facility] or page [phone] , 7PM to 7AM covered via [facility] Cloth Spreader Screen Printing/Nsg Fellow ickolas Lyon RN - 10/11/2013 5:45 AM PSTFormatting of this note might be different from the origi nal. Progress Notes by Christine Lyon RN at 10/11/1345 Author: Christine Lyon RN Service: (none) Author Type: Registered Nurse Filed: 10/11/13 0545 Date of Service: 10/11/13544 Status: Signed Sealing Machine Operator: Christine Lyon RN (Registered Nurse) NS Progress [...] monitor. Christine Lyon RN, 10/11/2013 5:45 AM abiana Cartwright RN - 10/11/2013 12:18 AM PST Progress Notes by Fabiana Cartwright RN at 10/11/1317 Author: Fabiana Cartwright RN Service: (none) Author Type: Registered Nurse Filed: 10/11/13 0022 Date of Service: 10/11/1317 Status: Signed Sealing Machine Operator: Fabiana Cartwright RN (Registered Nurse) NS Progress [...] 10/10/131623 Date of Service: 10/10/131621 Status: Signed Sealing Machine Operator: Jil Xavier RN (Registered Nurse) Wound vac in place. Patient is up in room ambulating with a walker. Noon dose of Pittsboro he ld to due excess Tylenol administration. Abhishek Segura notified. Prn Tylenol discontinued. Pl an: Offer Oxycodone as ordered until Pittsboro can be safely administered. Continue plan of ca re. Brittani Escalante FNP - 10/10/2013 9:08 AM PST Progress Notes by Brittani Segura ARNP at 10/10/13907 Author: Brittani Segura ARNP Service: (none) Author Type: Nurse Practitioner Filed: 10/10/1314 Date of Service: 10/10/13907 Status: Signed Sealing Machine Operator: Brittani Segura ARNP (Nurse Practitioner) NSR Progress Note ID: Rebecca Castillo; 73 y.o. female [facility] Attending Yong Pena MD Hospital [...] 09:08 7AM to 4PM reach me via [email or web address], 4PM to 7PM reach cross-cover via [email or web address] [facility] or page [phone] , 7PM to 7AM covered via [employer] Spreader Screen Printing/Nsg Fellow Nickolas Earl RN - 10/10/2013 5:46 AM PSTFormatting of this note might be different from the origi nal. Progress Notes by Christine Lyon RN at 10/10/13545 Author: Christine Lyon RN Service: (none) Author Type: Registered Nurse Filed: 10/10/13546 Date of Service: 10/10/13545 Status: Signed Sealing Machine Operator: Christine Lyon RN (Registered Nurse) [place] Progress [...] 1950 Date of Service: 10/09/131946 Status: Signed Sealing Machine Operator: Mary Lou Cherry RN (Registered Nurse) NSG Progress Note Brief Patient: Rebecca Castillo [phone] Care of pain in the leg (due to struggle to put TEDs on earlier) with tylenol and Right JODI removed. Foot exercise encouraged and observed. Back pain controled with scheduled Pittsboro t o 12/21. Ambulating independently using a walker. VS stable. Mary Lou Cherry RN, 10/09/2013 7:47 PM Gerry Alcala - 1 12/10/2012 12:33 PM PST Progress Notes by Gerry Degroot MD at 10/09/13 1233 Author: Gerry Degroot MD Service: (none) Author Type: Physician Filed: 10/09/13 1234 Date of Service: 10/09/13 1233 Status: Signed Sealing Machine Operator: Gerry Degroot MD (Physician) Plastic Surgery Deep [...] Date of Service: 10/09/13 1037 Status: Addendum Sealing Machine Operator: Tete Moreno, RN (Registered Nurse) Related Notes: [...] 1017 Date of Service: 10/09/13726 Status: Signed Sealing Machine Operator: Manasa Ortega ARNP (Nurse Practitioner) Neurosurgery Progress [...] for itching 2. Pain - Continue scheduled [place] (2 tabs Q hours) with oxycodone 5-15 [...] 10/09/13605 Date of Service: 10/09/13605 Status: Signed Sealing Machine Operator: Christine Lyon RN (Registered Nurse) [facility] [place] Note Brief Patient: [...] 10/08/131901 Date of Service: 10/08/131849 Status: Addendum Sealing Machine Operator: Todd Vick RN (Registered Nurse) Related Notes: Original Note by Todd Vick RN (Registered Nurse) filed at 10/08 [facility] [place] Note Brief Patient: Rebecca Castillo No neuro changes this shift. Ambulating in room independently, tolerates well. Had large lo ose BM this evening, continuing to hold bowel care meds. 3+ edema in lower extremities, elev ated on pillows, SCDs on. Wound vac changed this AM by media director. Pt tolerated well afte r 2mg IV dilaudid administered. Reports back pain improved afterwards. Pain well controlled on current regimen. Blood sugars range from 128-156, covered with SSI. HR and BP closely mon itored throughout day - Digoxin administered late this AM per verbal order from Erica BOYLE POWER BARKER OPERATOR d/t low HR - administered when HR [...] Date of Service: 10/08/13 1326 Status: Addendum Sealing Machine Operator: Shannon Escalante RN, JORDAN (Wound/Ostomy Nurse) Related Notes: Original Note by Shannon Escalante RN, OJRDAN (Wound/Ostomy Nurse) filed at 1 12/09/12 1635 [...] Notes by Lucy Ruiz RD at 10/08/13 0933 Author: Lucy Ruiz RD Service: (none) Author Type: Registered Dietitian Filed: 10/08/13 5363 Date of Service: 10/08/131318 Status: Signed Sealing Machine Operator: Lucy Ruiz RD (Registered Dietitian) Medical Nutrition [...] Date of Service: 10/08/13 1015 Status: Signed Sealing Machine Operator: Tim Alvarez MD (Physician) Infectious Diseases Progress [...] Reviewed. Xray: None new Tim Alvarez MD [phone] 35 min spent FTF, >50% time counseling and reviewing her hospitalization Gerry Alcala - 10/08/2013 6:55 AM PST Progress Notes by Gerry Degroot MD at 10/08/1355 Author: Gerry Degroot MD Service: (none) Author Type: Physician Filed: 10/08/13 0656 Date of Service: 10/08/13654 Status: Signed Sealing Machine Operator: Gerry Degroot MD (Physician) Plastic Surgery VAC [...] 10/08/1354 Date of Service: 10/08/13629 Status: Signed Sealing Machine Operator: Jose Kahn RN (Registered Nurse) NS Progress Note Brief Patient: Rebecca Castillo Pt A&Ox4, ABREU, ambulates independently in room. C/o lower back pain that radiates bilateral ly to legs. Adequate relief with prn oxycodone and scheduled norco. Wound vac patent and suc tioning. Pt declined bowel meds as they cause "too many BM's." Pt to have wound vac change w [facility] wound care nurse in AM at bedside. [...] 10/08/1332 Date of Service: 10/08/13521 Status: Signed Sealing Machine Operator: Manasa Ortega ARNP (Nurse Practitioner) Neurosurgery Progress [...] while awake 2. Pain - Continue scheduled [place] (2 tabs Q hours) with oxycodone 5-15 [...] Date of Service: 10/07/13 1311 Status: Signed Sealing Machine Operator: Mario Granados RN (Registered Nurse) NSG Progress Note Brief Patient: Rebecca Castillo Pt. Called and C/O "Heart flutter". No definite pain per se. C/O light headedness. JET WIPER carlos led. EKG shows A-Fib. HR 110's. [...] Esparza PA-C Service: (none) Author Type: Physician Buckle Inspector Filed: 10/07/13 1110 Date of Service: 10/07/13 1108 Status: Signed Sealing Machine Operator: Brittani Esparza PA-C (Physician Buckle Inspector) Neurosurgery Progress Note ID: Rebecca Castillo; 73 [...] while awake 2. Pain - Continue scheduled [place] (2 tabs Q hours) with oxycodone 5-15 [...] 11:08 7AM to 7PM reach me via [email or web address], 7PM to 7AM covered via [facility] Cloth Spreader Screen Printing/Nsg Fellow Lakesha Freeman RN - 10/07/2013 3:19 AM PST Progress Notes by Lakesha Melendez at 10/07/139 Author: Lakesha Melendez Service: (none) Author Type: Registered Nurse Filed: 10/07/13 0548 Date of Service: 10/07/13318 Status: Addendum Sealing Machine Operator: Lakesha Melendez (Registered Nurse) Related Notes: Original [...] 184 Date of Service: 10/06/131835 Status: Signed Sealing Machine Operator: Harish Shepard RN (Registered Nurse) NSG Shift [...] Author: Teddy Cruz Service: (none) Author Type: Manager Federal Filed: 10/06/13 6910 Date of Service: 10/06/131245 Status: Signed Sealing Machine Operator: Teddy Cruz (Manager Federal) Routine Spiritual Care intro. Pt seated on [...] Notes by Tim Alvarez MD at 10/06/13 0923 Author: Tim Alvarez MD Service: (none) Author Type: Physician Filed: 10/06/13 0803 Date of Service: 10/06/13 208 Status: Signed Sealing Machine Operator: Tim Alvarez MD (Physician) Infectious Diseases Progress [...] Reviewed. Xray: None new Tim Alvarez MD [phone] 35 min spent FTF, >50% time counseling and reviewing her hospitalization Gerry Alcala - 10/06/2013 6:34 AM PST Progress Notes by Gerry Degroot MD at 10/06/13 06 Author: Gerry Degroot MD Service: (none) Author Type: Physician Filed: 10/08/1335 Date of Service: 10/06/13633 Status: Signed Sealing Machine Operator: Gerry Degroot MD (Physician) Plastic Surgery (delayed [...] 10/06/13618 Date of Service: 10/06/13618 Status: Signed Sealing Machine Operator: Jia Cortes RN (Registered Nurse) NSG Shift Summary Patient: Rebecca Castillo Alert and oriented x4. Painful, particularly with movement, but tolerable with current pain regimen of [place] and PRN oxycodone. Ambulating to BR every [...] 0739 Date of Service: 10/06/1334 Status: Signed Sealing Machine Operator: Manasa Ortega ARNP (Nurse Practitioner) Neurosurgery Progress [...] while awake 2. Pain - Continue scheduled [place] (2 tabs Q hours) with oxycodone 5-15 [...] 10/05/131520 Date of Service: 10/05/131512 Status: Signed Sealing Machine Operator: Lubna Peck OT (Occupational Therapist) OCCUPATIONAL THERAPY [...] Date of Service: 10/05/13 1222 Status: Signed Sealing Machine Operator: Lidia Campos RN (Registered Nurse) Back to room at 1030. Alert but still sleepy. Denies pain. Back dressing and wound vac inta ct at 125mmhg suction. Small drainage on the tubing only. Iv line needs restarted, iv nurse texted. Needs ivf to continue at 100 cc/hr report given to incoming nurse. Vital signs take n and recorded. Jackie Tran DO - 10/05/2013 9:36 AM PST Progress Notes by Jackie Skaggs DO at 10/05/13 0936 Author: Jackie Skaggs DO Service: (none) Author Type: Physician Filed: 10/05/13 0939 Date of Service: 10/05/1336 Status: Signed Sealing Machine Operator: Jackie Skaggs DO (Physician) Neurosurgery Brief Note For: Rebecca Lua Jonathan; 73 y.o. female Location: [facility] PACU POOL ROOM/POOL Attending Yong Pena [...] 10/05/1332 Date of Service: 10/05/13826 Status: Signed Sealing Machine Operator: Tim Alvarez MD (Physician) Infectious Diseases Progress [...] change zosyn to Unasyn. Tim Alvarez MD [phone] anasa Ortega AR POWER BARKER OPERATOR - 10/05/2013 6:35 AM PST Progress Notes by Manasa Ortega ARNP at 10/05/13634 Author: Manasa Ortega ARNP Service: (none) Author Type: Nurse Practitioner Filed: 10/05/13850 Date of Service: 10/05/13634 Status: Signed Sealing Machine Operator: Manasa Ortega ARNP (Nurse Practitioner) Neurosurgery Progress [...] while awake 2. Pain - Continue scheduled [place] (2 tabs Q hours) with oxycodone 5-15 [...] 10/05/1347 Date of Service: 10/05/13416 Status: Signed Sealing Machine Operator: Lakesha Melendez (Registered Nurse) NSLissa Progress Note [...] 10/04/131999 Date of Service: 10/04/131957 Status: Signed Sealing Machine Operator: Todd Vick RN (Registered Nurse) [facility] [place] Note Brief Patient: [...] D, PA-C Service: (none) Author Type: Physician Buckle Inspector Filed: 10/04/13 121 Date of Service: 10/04/131211 Status: Signed Sealing Machine Operator: Brittani Esparza PA-C (Physician Buckle Inspector) Neurosurgery Progress Note ID: Rebecca Castillo; 73 y.o. female [facility] Hospital [...] 12:13 7AM to 7PM reach me via [employer], 7PM to 7AM covered via [facility] Cloth Spreader Screen Printing/Nsg Fellow Gerry Alcala - 10/04/2013 8:52 AM PST Progress Notes by Gerry Degroot MD at 10/04/1352 Author: Gerry Degroot MD Service: (none) Author Type: Physician Filed: 10/04/13 0854 Date of Service: 10/04/13851 Status: Signed Sealing Machine Operator: Gerry Degroot MD (Physician) Plastic Surgery Patient [...] 0617 Date of Service: 10/04/13331 Status: Signed Sealing Machine Operator: Lakesha Melendez (Registered Nurse) [place] Progress Note [...] 10/03/132011 Date of Service: 10/03/132006 Status: Signed Sealing Machine Operator: Todd Vick RN (Registered Nurse) NS Progress [...] Rosie Terrazas LICSW Service: (none) Author Type: Plant Reliability Engineer Filed: 10/03/131708 Date of Service: 10/03/131699 Status: Signed Sealing Machine Operator: Rosie Terrazas LICSW (Plant Reliability Engineer) Case Management Discharge Planning Assessment 17:00; 10/03/2013 Patient Rebecca Castillo is a 73 y.o. female admitted for Post Op Seroma Discussion:NEWSPAPER CARRIERS SUPERVISOR review past and current charts and discussed with healthcare team. Patient engaged and alert. Patient report she and her spouse report they live in [place]. Patient re ports they live on multiple [...] has been staying in a hotel near [facility] as they brought their cat to [place] with them. Patient is a re-admit, patient [...] Support Options: HHC Plan: TBD Resources/Education provided: NEWSPAPER CARRIERS SUPERVISOR introduced role and how to access NEWSPAPER CARRIERS SUPERVISOR/CM during hospital visit. Interventions: Case Mgmt Team Interventions: Chart review/screening;Consult with healthcare team;D/C plann ing initial assessment;Chelsea of choice offered Diagnosis: Post Op Seroma [...] Information Primary Emergency Contact: Oniel Castillo Address: [address] [place], [place] [address] [facility] [place] Relation: Spouse Secondary Emergency Contact: Debbie Selby [facility] [place] Relation: Daughter Patient is being followed by Case Management Rosie Terrazas, APRIL, LSWAIC onversion Tra nsaction, Provider Unknown - 10/03/2013 2:25 PM PSTFormatting of this note might be differe nt from the original. Progress Notes by Arturo Roberto RD at 10/03/13 7709 Author: Arturo Roberto RD Service: (none) Author Type: Registered Dietitian Filed: 10/03/131426 Date of Service: 10/03/131424 Status: Signed Sealing Machine Operator: Arturo Roberto RD (Registered Dietitian) Medical Nutrition Therapy Discussed case with [employer]. Boost oral supplement ordered to be sent daily be tween meals (TID). RD will continue to follow pt with team. Arturo Roberto RD, 10/03/2013 2:27 PM onver everett Transaction, Provider Unknown - 10/03/2013 1:57 PM PST Progress Notes by Juanjo Francisco at 10/03/13 2137 Author: Juanjo Francisco Service: (none) Author Type: [employer] Filed: 10/03/13 4237 Date of Service: 10/03/13 6687 Status: Addendum Sealing Machine Operator: Juanjo Francisco ([employer]) Related Notes: Original Note by Juanjo Francisco ([employer]) filed at 3 1406 Medical Nutrition Therapy [...] Esparza PA-C Service: (none) Author Type: Physician Buckle Inspector Filed: 10/03/13 5069 Date of Service: 10/03/13 1342 Status: Addendum Sealing Machine Operator: Brittani Esparza PA-C (Physician Buckle Inspector) Related Notes: Original Note by Brittani Esparza PA-C (Physician Buckle Inspector) filed at 1352 Neurosurgery Progress Note ID: Rebecca Castillo; 73 y.o. female [facility] Attending Yong Pena MD Hospital Day # 1 PCP Jesus Mijares Procedure: 1. Lumbar L4-5 [...] 13:43 7AM to 7PM reach me via [employer], 7PM to 7AM covered via [facility] Cloth Spreader Screen Printing/[place] Fellow onversion Transacti on, Provider Unknown - 10/03/2013 1:08 PM PSTFormatting of this note might be different fro m the original. Progress Notes by Priscila Prado PT at 10/03/13 1308 Author: Priscila Prado, PT Service: (none) Author Type: Physical Therapist Filed: 10/03/13 5751 Date of Service: 10/03/13 5908 Status: Signed Sealing Machine Operator: Priscila Prado PT (Physical Therapist) PHYSICAL THERAPY [...] at this time, PT to sign off. PT/PLANER TAILER order assistive devices prn Risks and benefits of treatment reviewed with patient/family and they agree with plan of ca re: Yes onver everett Transaction, Provider Unknown - 10/03/2013 8:48 AM PST Progress Notes by Nimisha Allen OT at 10/03/13847 Author: Nimisha Allen OT Service: (none) Author Type: Occupational Therapist Filed: 10/03/13900 Date of Service: 10/03/13847 Status: Signed Sealing Machine Operator: Nimisha Allen OT (Occupational Therapist) OCCUPATIONAL THERAPY [...] standing for increased activity tolerance with ADLs OT/LITHOPLATE MAKER order assistive devices prn Risks and benefits of treatment reviewed with patient/family and they agree with plan of ca re: Yes Jana Easton RN - 10/02/2013 10:55 PM PST Progress Notes by Jana Saleh RN at 10/02/132254 Author: Jana Saleh RN Service: (none) Author Type: Registered Nurse Filed: 10/02/13 7013 Date of Service: 10/02/132254 Status: Signed Sealing Machine Operator: Jana Saleh RN (Registered Nurse) NSG Arrival [...] call light to telephone and television to [facility] information to plan for the day Jnaa Saleh RN, 10/02/2013 10:55 PM Autumn La RN - 10/02/2013 8:08 PM PST Progress Notes by Autumn Croft RN at 10/02/132007 Author: Autumn Croft RN Service: (none) Author Type: Registered Nurse Filed: 10/02/132008 Date of Service: 10/02/132007 Status: Signed Sealing Machine Operator: Autumn Croft RN (Registered Nurse) GLENIS Progress [...] 10/02/132007 Date of Service: 10/02/132006 Status: Signed Sealing Machine Operator: Autumn Croft RN (Registered Nurse) NSG Admission [...] 10/02/131748 Date of Service: 10/02/131747 Status: Signed Sealing Machine Operator: Manasa Ortega ARNP (Nurse Practitioner) NSG Progress [...] 10/02/132031 Date of Service: 10/02/131131 Status: Signed Sealing Machine Operator: Yong Pena MD (Physician) Yong Pena Jr, MD| Co-Director of Spine Fellowship| [facility] I had an extensive discussion [...] well as postoperative risks which include stroke, PR, bleeding, anaphylaxis, infection , misplacement of hardware, [...] Pena Jr, MD| Co-Director of Spine Fellowship| [facility] [address] [place] [address] [address]| Jose Alberto Daniels [address] pager | direct [phone]| fax [phone] | [email or web address] This message is confidential, intended only for [...] | | | | | | [place] [address] | | | | | | [phone] | | | | | | | [...]
--- OUTSIDE RECORDS SUMMARY | ~2019-10-18 | XMS | Encounter Summary ---
Demographics + + + | Address | [address] | | | [place] [address] | + + + | Home Phone [...] Team Providers + +------+ + | Care President College [employer] Name | Role | Phone | + [...] + + | 07/31/ | Office | [facility] | Nilson Chaudhry | Lumbar | | 2011 | Visit | PHYSIATRY [address] | [address], [address] | radiculopathy; | | | | [place], | [place], [place] | DEGENERATIVE DISC | | | | [place] [address] | [address] | DISEASE, LUMBAR | | | | [phone] | | SPINE; SCOLIOSIS , | | [...] our off ice. Please also provide a wheelchair van driver to take you home on the [...] [place], | | | | | | [place] [address] | | | | | | [phone] | | | | | | | [...]
--- OUTSIDE RECORDS SUMMARY | ~2019-10-18 | XMS | Encounter Summary ---
Demographics + + + | Address | [address] | | | [place] [address] | + + + | Home Phone | | + + + | Preferred Language | Unknown | + + + | Marital Status | | + + + | Episcopal Affiliation | 1027 | + + + [...] Team Providers + +------+ + | Care Furnace Helper Name | Role | Phone | [...] | Lumbar | Bogdanowicz, | [address] | | | | | radiculopath | Sheryl, | [place], | | | | | y Right hip | PA-C [address] | [place] | | | | | pain | [address] | [address] | | | | | Procedures | [place], [place] | Phone: | | | | | [place] | [address] | [phone] | | | | | Joint | Phone: | Fax: | | | | | Injection | [phone] | [phone] | | | | | Right [place] | Fax: | | | | | | INJECT | [phone] | | | | | | ANES/STEROID [...] | Lumbar | Christiano, | [address] | | | | | radiculopath | Sheryl, | [place], | | | | | y Right hip | PA-C [address] | [place] | | | | | pain | [address] | [address] | | | | | Procedures | [place] | Phone: | | | | | [place] | [address] | [phone] | | | | | Joint | Phone: | Fax: | | | | | Injection | [phone] | [phone] | | | | | Right [place] | Fax: | | | | | | INJECT | [phone] | | | | | | ANES/STEROID [...] + + | 12/24/ | Hospital | [facility] | Christiano, | Bursitis, hip, right | | 2017 | Encounter | MED CTR XRAY [address] | GAMALIEL Saucedo [address] | (Primary Dx); | | | | [place] | [address] [place], | Lumbar | | | | [place] [address] | [place] [address] | radiculopathy; | | | | [phone] | [phone] | Spinal stenosis of | | | | | | lumbar region - | | | | | [employer] | L3/L4, adjacent | | | [...] | | | | | | [place] [address] | | | | | | [phone] | | | | | | | [...] 12/24/2016 Bilateral Transforaminal Epidural Steroid Injections | [facility] | | and Right Trochanteric Bursa Injection Diagnosis: Lumbar | [facility] | | radiculopathy and Trochanteric Bursitis ICD-10 Code M54.16 and | [facility] | | M70.61 Rebecca Castillo presents [...] + + | Performing | Address | City/State[facility] | Phone Number | | Organization | | | | + + + + + | [address] | [address] | [place] | [phone] | | [facility] | | [address] | | | - IMAGING | | [...] and Trochanteric Bursitis ICD-10 Code M54.16 and [facility] | | M70.61 Rebecca Castillo presents to [...] ST. | [address] | [place], [place] | [phone] | | [facility] | | [address] | | | - IMAGING | | [...]
--- OUTSIDE RECORDS SUMMARY | ~2019-10-18 | XMS | Encounter Summary ---
Demographics + + + | Address | [address] | | | [place] [address] | + + + | Home Phone | | + + + | Preferred Language | Unknown | + + + | Marital Status | | + + + | Amish Affiliation | Unknown | + + + | Race | White | + + + | Ethnic Group | Not or | + + + Author + + + | Author | [facility] | + + + | Organization | [facility] | + + + | Address | Unknown | + + + | Phone | Unavailable | + + + Support + + + + + | Name | Relationship | Address | Phone | + + + + + | Geoffrey Castillo | RENAE | [place] | | + + + + + Care Team Providers + +------+ + | Care Chute Puller Name | Role | Phone | + [...] as of this encounter Progress Notes Interface, National Sales In - 10/24/2006 3:06 AM PST [facility] Account No. PROGRESS RECORD Name Rebecca Castillo Birthdate 1940 Date Probl Time em FORMAT: PROBLEM NUMBER and TITLE: S=Subjective Number O=Objective A=Analysis P=Plans CLINIC DATE: 06/29/1998 PLASTIC SURGERY CLINIC SUBJECTIVE: Mrs. Castillo is a 58-year-old woman who sustained an injury to her left leg from a horse on 05/01/98. She sustained a distal fibular fracture that has been treated by Dr. Mena in [place], [place]. She also developed an 8 x [...] if any problems develop. Kavon Melton M.D. Aviation Safety Inspector, Plastic and Reconstructive Surgery TOREY/michael d ocumented in this encounter Plan of Treatment Not on filedocumented as of this encounter Visit Diagnoses Not on filedocumented in this encounter"
--- OUTSIDE RECORDS SUMMARY | ~2019-10-18 | XMS | Clinical Summary ---
Demographics + + + | Address | [address] | | | [place] [address] | + + + | Home Phone | | + + + | Preferred Language | Unknown | + + + | Marital Status | | + + + | Confucianism Affiliation | 1027 | + + + | Race | Unknown | + + + | Ethnic Group | Unknown | + + + Author + + + | Author | [employer] (Historical as of | | | 05-30-19) | + + + | Organization | [facility] [employer] (Historical as of | | | 05-30-19) | + + + | Address | [...] Team Providers + +------+ + | Care Men'S Furnishings Salesperson Name | Role | Phone | + [...] 19 | | | + + +--------+---------+------+------+-------+ | digoxin (LANOXIN) | TAKE 1 TABLET BY | 90 | 3 | 07/0 | | Activ | | 0.125 MG tablet | MOUTH ONCE DAILY AT | tablet | | 7/20 | | e | | | BEDTIME | | | 19 | | | + + +--------+---------+------+------+-------+ | allopurinol | TAKE 1 TABLET BY | 90 | 3 | 07/2 | | Activ | | (ZYLOPRIM) 100 MG | MOUTH ONCE DAILY | tablet | | 5/20 | | e | | tablet | | | | 19 | | | + + +--------+---------+------+------+-------+ | sotalol (BETAPACE) | TAKE 1 TABLET BY | 180 | 3 | 07/3 | | Activ | | 80 MG tablet | MOUTH EVERY 12 HOURS | tablet | | 0/20 | | e | | | | [...] ---------+ | Overview: Sylvia S-53 cm, model 269511, #[id number] lead was | | placed into the right ventricle and screwed intoposition on the | | septum, midway between the apex and outflow tract. Thefinal | | pacing threshold was 1 V at 0.5 msec, with R waves of 5.9 mV and | | theimpedance was 550 ohms. There was no diaphragmatic pacing at | | 10 V. [employer] model 5076-45 cm lead was placed into [...] ohms. The leads were attached to a [employer] 8 | | , model 264730,serial #[id number] pacemaker. FINAL | | SETTINGS FOR THE [...] due to the cost, followed at the [facility] | | clinic to monitor [...] | and rationale for pacemaker were discussed today.08/27/20183% | | burden of AF on her [...] patient today | | and she verbalized understanding.03/04/20192% burden of AF on her | | [...] + | Overview: Essential | + + Family History + + +------+ + | [...] + + + | Blood Pressure | 90/68 | 03/24/2019 2:29 PM PDT | + + + + | Pulse | 112 | 03/24/2019 2:29 PM PDT | + + + + | Temperature | 36.2 C (97.1 F) | 06/04/2018 1:23 PM PDT | + + + + | Respiratory Rate | 20 | 09/23/2018 12:58 PM PST | + + + + | Oxygen Saturation | 91% | 03/24/2019 2:29 PM PDT | + + + + | Inhaled Oxygen | - | - | | Concentration | | | + + + + | Weight | 69.7 kg (153 lb 9.6 | 03/24/2019 2:29 PM PDT | | | oz) | | + + + + | Height | 162.6 cm (5' 4") | 03/24/2019 2:29 PM PDT | + + + + | Body Mass Index | 26.37 | 03/24/2019 2:29 PM PDT | + + + + Plan of Treatment +--------+ + + + + | Date | Type | Specialty | Care Team | Description | +--------+ + + + + | 12/10/ | Documentati | | | | | 2020 | on Only | | | | [...] Vaccine: Influenza | | | | | (#1) | 9 | | | + + [...] c | | BIOT | | | /[id number] | | Chuy Wills MD | Rhythm [...] | Rhythm | | | | | [address] | | | | | | | | / | | | Manage | | | | | | | | ment | | | | | | + +--------+--------+ +--------+--------+--------+ | Pacer-03/20/2017Implanted: Qty: | Cardia | Chest | BIOTRONIK - | | | | | 1 on 03/20/2017 by Johann, | c | Wall | BIOT | | | /[id number] | | MD Chuy | Rhythm | | | | | 654 / | | | | | | | | | | | Manage | | | | | | | | ment | | | | | | + +--------+--------+ +--------+--------+--------+ Results Not on filefrom Last 3 Months Insurance + +--------+ +------+-------+ + | Payer | Benefi | Subscriber | Type | Phone | Address | | | t Plan | ID | | | | | | / | | | | | | | Group | | | | | + +--------+ +------+-------+ + | MEDICARE | MEDICA | [id number] | | | [address] | | | RE | | | | [place] [address] | | | IP-OP | | | | | + +--------+ +------+-------+ + | [facility] | [place] | [id number] | | | | | | | [...] | + +--------+ +--------+ + + | REBECCA CASTILLO | Person | Self [birth year] | Home: | [address] | | | al/[place]us | | 1940 | [phone] [place] | | | margarita | | | [phone] | [address] | + +--------+ +--------+ + +
--- OUTSIDE RECORDS SUMMARY | ~2019-10-18 | XMS | Encounter Summary ---
Demographics + + + | Address | [address] | | | [place] [address] | + + + | Home Phone [...] Team Providers + +------+ + | Care Forge Operator Name | Role | Phone | [...] | Lumbar | Tavonberg, | [address] | | | | | radiculopath | Nilson Jensen MD | [place], | | | | | y | [address] | [place] | | | | | Procedures | [place] | [address] | | | | | [place] INJECT | [place], [place] | Phone: | | | | | ANES/STEROID | [address] | [phone] | | | | | FORAMEN | Phone: | Fax: | | | | | LUMBAR/SACRA | [phone] | [phone] | | | | | [address] IM[address] | Fax: | | | | | | GUIDE ,1 | [phone] | | | | | | [place]EVEL [place] | | | | | | | [...] + + | 12/01/ | Hospital | [facility] | Bogdanowicz, | Lumbar | | 2019 | Encounter | MED CTR XRAY [address] | GAMALIEL Saucedo [address] | radiculopathy; | | | | [place] | [facility], | Spinal stenosis of | | | | [place] [address] | [place] [address] | lumbar region | | | | [phone] | without neurogenic | | | | | | claudication; | | | | | Redevelopment [facility] | DEGENERATIVE DISC | | | | [...] | | | | | | [place] [address] | | | | | | [phone] | | | | | | | [...]
--- OUTSIDE RECORDS SUMMARY | ~2019-10-18 | XMS | Encounter Summary ---
Demographics + + + | Address | [address] | | | [place] [address] | + + + | Home Phone | | + + + | Preferred Language | Unknown | + + + | Marital Status | | + + + | Christianity Affiliation | 1027 | + + + | Race | Unknown | + + + | Ethnic Group | Unknown | + + + Author + + + | Author | [facility] | | | and [place] | + + + | Organization | [facility] | | [...] Team Providers + +------+ + | Care Adjunct Faculty For Medical Terminology Name | Role | Phone | + +------+ + | Jesus Mijares MD | PCP | | + +------+ + Reason for Visit + + + | Reason | Comments | + + + | Device Check | Routine | | (In-office) | | + + + Encounter Details +--------+ + + + + | Date | Type | Department | Care Team | Description | +--------+ + + + + | 09/01/ | Procedure | [facility] | | Cardiac pacemaker in | | 2019 | visit | [facility] [place] | | situ (Primary Dx) | | | | [address] | | | | | | [place], [place] | | | | | | [address] | | | | | | [phone] | | | +--------+ + + + [...] | | | | | | [place] [address] | | | | | | [phone] | | | | | | | [...] documented in this encounter Results Device Interrogation (09/01/2019 1:45 PM PST) + + + | Narrative | Performed At | + + + | Ignacio Benz, | [facility] | | Technologist 09/01/2019 2:29 PMDevice interrogation done by | | | Mary Moe Any events or changes listed in office note. See device data | | | attached to scheduled encounter for additional details. biblical studies professor: | | | Ignacio R | | |See device data attached to scheduled encounter for additional | | |details. | | | | | |biblical studies professor: Ignacio R | | | | | + + [...]
--- OUTSIDE RECORDS SUMMARY | ~2019-10-18 | XMS | Encounter Summary ---
Demographics + + + | Address | [address] | | | [place] [address] | + + + | Home Phone | | + + + | Preferred Language | Unknown | + + + | Marital Status | | + + + | Protestant Affiliation | 1027 | + + + | Race | Unknown | + + + | Ethnic Group | Unknown | + + + Author + + + | Author | [facility] | | | and [place] | + + + | Organization | [facility] | | [...] Providers + +------+ + | Care Medical Technician Name | Role | Phone | + +------+ + | Jesus Mijares MD | PCP | | + +------+ + Encounter Details +--------+ + + + + | Date | Type | Department | Care Team | Description | +--------+ + + + + | 03/11/ | Orders Only | [facility] | Rajendra Fowler, | | | 2017 | | CARDIOLOGY [place] | [address] | | | | | [address] | [place], | | | | | [place] | [place] [address] | | | | | [address] | [phone] | | | | | [phone] | | | +--------+ + + + [...] | | | | | | [place] [address] | | | | | | [phone] | | | | | | | [...] + | DIGOXIN LEVEL | Routin | 03/11/2018 | | Results for this | | | e | 1:21 PM | | procedure are in the | | | | PDT | | results section. | + +--------+ + + + documented in this encounter Results Digoxin Level (03/11/2018 1:21 PM PDT) + + + + + + | Component | Value | Ref Range | Performed | Pathologist | | | | | At | Signature | + + + + + + | Digoxin | 0.93Comment: Last Dose | 0.8 - 2.0 | EXTERNAL | | | level | 15 Hrs | | LAB | | + + [...]
--- OUTSIDE RECORDS SUMMARY | ~2019-10-18 | XMS | Encounter Summary ---
Demographics + + + | Address | [address] | | | [place] [address] | + + + | Home Phone | | + + + | Preferred Language | Unknown | + + + | Marital Status | | + + + | Roman Catholic Affiliation | 1027 | + + + [...] Providers + +------+ + | Care Medical Imaging Technologist Name | Role | Phone | + +------+ + | Jesus Mijares MD | PCP | | + +------+ + Encounter Details +--------+ + + + + | Date | Type | Department | Care Team | Description | +--------+ + + + + | 06/12/ | Orders Only | [facility] | Veto Neri, | | | 2017 | | NEPRHOLOGY [place] | [employer]ER [address] | | | | | [address] | [facility] | | | | | [address] [place], [place] | [place] | | | | | [address] | [address] | | | | | [phone] | [phone] | | | | | | | [...] | | | | | | [place] [address] | | | | | | [phone] | | | | | | | [...] + | BASIC METABOLIC | Routin | 06/12/2018 | | Results for this | | PANEL | e | 12:00 AM | | procedure are in the | | | | PDT | | results section. | + +--------+ + + + documented in this encounter Results Basic Metabolic Panel (06/12/2018 12:00 AM PDT) + +---------+ + + + | Component | Value | Ref Range | Performed | Pathologist | | | | | At | Signature | + +---------+ + + + | Glucose, | 137 (A) | 70 - 100 mg/dL | EXTERNAL | | | Fasting | | | LAB | | + +---------+ + + + | BUN | 23 | 6 - 23 mg/dL | EXTERNAL | | | | | | LAB | | + +---------+ + + + | Creatinine | 0.97 | 0.70 - 1.18 | EXTERNAL | | | | | mg/dL | LAB | | + +---------+ + + + | BUN/Creatin | 23.7 | 6.0 - 28.6 | EXTERNAL | | | ine Ratio | | | LAB | | + +---------+ + + + | Calcium | 9.7 | 8.5 - 10.3 | EXTERNAL | | | | | mg/dL | LAB | | + +---------+ + + + | Na | 140 | 132 - 143 | EXTERNAL | | | | | mmol/L | LAB | | + +---------+ + + + | K | 4.5 | 3.6 - 5.1 | EXTERNAL | | | | | mmol/L | LAB | | + +---------+ + + + | Cl | 93 (A) | 95 - 112 mmol/L | EXTERNAL | | | | | | LAB | | + +---------+ + + + | CO2 | 36 (A) | 19 - 31 mmol/L | EXTERNAL | | | | | | LAB | | + +---------+ + + + | Anion Gap | 15.5 | 7 - 21 mmol/L | EXTERNAL | | | | | | LAB | | + +---------+ + + + | Estimated | 56 | mg/dL | EXTERNAL | | | [...]
--- OUTSIDE RECORDS SUMMARY | ~2019-10-18 | XMS | Encounter Summary ---
Demographics + + + | Address | [address] | | | [place] [address] | + + + | Home Phone | | + + + | Preferred Language | Unknown | + + + | Marital Status | | + + + | Hinduism Affiliation | Unknown | + + + | Race | White | + + + | Ethnic Group | Not or | + + + Author + + + | Author | [facility] | + + + | Organization | [facility] | + + + | Address [...] Team Providers + +------+ + | Care Time Recorder Name | Role | Phone | + [...] as of this encounter Progress Notes Interface, Pediatric Dental Hygienist In - 10/22/2006 1:06 AM PSTCLINIC DATE: [...] cancel her further appointments. Kavon Melton M.D. Air Brake Rigger, Plastic and Reconstructive Surgery TOREY/nevin d ocumented in this encounter Plan of Treatment Not on filedocumented as of this encounter Visit Diagnoses Not on filedocumented in this encounter"
--- OUTSIDE RECORDS SUMMARY | ~2019-10-18 | XMS | Encounter Summary ---
Demographics + + + | Address | [address] | | | [place] [address] | + + + | Home Phone | | + + + | Preferred Language | Unknown | + + + | Marital Status | | + + + | Anglican Affiliation | 1027 | + + + | Race | Unknown | + + + | Ethnic Group | Unknown | + + + Author + + + | Author | [facility] | | | and [place] | + + + | Organization | [facility] | | | [...] Team Providers + +------+ + | Care Finance Attorney Name | Role | Phone | + +------+ + PCP | Unavailable | + +------+ + Encounter Details +--------+ + + + + | Date | Type | Department | Care Team | Description | +--------+ + + + + | 11/05/ | Hospital | [facility] | | | | 2002 | Encounter | MED CTR GENERIC OP | | | | | | CONV DEPT [address] | | | | | | [place], | | | | | | [place] [address] | | | | | | [phone] | | | +--------+ + + + [...] | | | | | | [place] [address] | | | | | | [phone] | | | | | | | [...]
--- OUTSIDE RECORDS SUMMARY | ~2019-10-18 | XMS | Encounter Summary ---
Demographics + + + | Address | [address] | | | [place] [address] | + + + | Home Phone | | + + + | Preferred Language | Unknown | + + + | Marital Status | | + + + | Scientology Affiliation | 1027 | + + + | Race | Unknown | + + + | Ethnic Group | Unknown | + + + Author + + + | Author | [facility] | | | and [place] | + + + | Organization | [facility] | | [...] Team Providers + +------+ + | Care Visual Educator Name | Role | Phone | + +------+ + PCP | Unavailable | + +------+ + Encounter Details +--------+ + + + + | Date | Type | Department | Care Team | Description | +--------+ + + + + | 09/07/ | Hospital | [facility] | Unknown, | | | 1991 | Encounter | MED CTR XRAY [address] | MD Tita | | | | | [place] | | | | | | [place] [address] | (Fax) | | | | | [phone] | | | +--------+ + + + [...] | | | | | | [place] [address] | | | | | | | [...]
--- OUTSIDE RECORDS SUMMARY | ~2019-10-18 | XMS | Encounter Summary ---
Demographics + + + | Address | [address] | | | [place] [address] | + + + | Home Phone | | + + + | Preferred Language | Unknown | + + + | Marital Status | | + + + | Catholic Affiliation | 1027 | + + [...] Team Providers + +------+ + | Care Sports Physiotherapist Name | Role | Phone | + [...] + + | 02/26/ | Office | [facility] | Nilson Chaudhry | Sacroiliitis (HCC) | | 2012 | Visit | PHYSIATRY [address] | MD Camila [address] | (Primary Dx); Lumbar | | | | [place], | [place], [place] | radiculopathy; | | | | [place] [address] | [address] | Bursitis, hip; | | | | [phone] | | DEGENERATIVE DISC | | | [...] The patient has been seen in the [facility] on several occasions for these issues. She [...] | | | | | | [place] [address] | | | | | | [phone] | | | | | | | [...]
--- OUTSIDE RECORDS SUMMARY | ~2019-10-18 | XMS | Encounter Summary ---
Demographics + + + | Address | [address] | | | [place] [address] | + + + | Home Phone [...] Providers + +------+ + | Care Manager Ui Name | Role | Phone | + [...] + + | 09/01/ | Procedure | [facility] | | Cardiac pacemaker in | | 2019 | visit | [facility] [place] | | situ (Primary Dx) | | | | [address] | | | | | | [place], [place] | | | | | | [address] | | | | | | [phone] | | | +--------+ + + + [...] | | | | | | [place] [address] | | | | | | [phone] | | | | | | | [...] attached to scheduled encounter for additional details. follow up manager: | | | Ignacio R | | |See device data attached to scheduled encounter for additional | | |details. | | | | | |follow up manager: Ignacio R | | | | | [...]
--- OUTSIDE RECORDS SUMMARY | ~2019-10-18 | XMS | Encounter Summary ---
Demographics + + + | Address | [address] | | | [place] [address] | + + + | Home Phone [...] Providers + +------+ + | Care Senior Environmental Technician Name | Role | Phone | [...] | neurosurgery has | | | | [place], | [facility] | been in contact with | | | | [place] [address] | [phone] | her and injections | | | | [phone] | | while waiting) | +--------+ + [...] | | | | | | [place] [address] | | | | | | [phone] | | | | | | | [...]
--- OUTSIDE RECORDS SUMMARY | ~2019-10-18 | XMS | Encounter Summary ---
Demographics + + + | Address | [address] | | | [place] [address] | + + + | Home Phone [...] Team Providers + +------+ + | Care Coffee Grower Name | Role | Phone | + +------+ + PCP | Unavailable | + +------+ + Encounter Details +--------+ + + + + | Date | Type | Department | Care Team | Description | +--------+ + + + + | 11/21/ | Hospital | [facility] | | | | 2011 | Encounter | MED CTR XRAY [address] | | | | | | [address] | | | | | | [place] [address] | | | | | | [phone] | | | +--------+ + + + [...] [place], | | | | | | [place] [address] | | | | | | [phone] | | | | | | | [...] Performed At | + + + | [facility] | [facility] | | [address], 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 Dictated | | | Date/Time: 11/21/2011 11:02 Transcribed Date/Time: 11/21/2011 | | | 11:20 Oracle Specialist: <Electronically Signed by Mitch Jensen | | | MD Kay> 11/21/11 2206 | | + + + + + | Procedure Note | + + | Jeanmarie, Rad Conversion - 11/20/2013 4:42 PM [facility] | | Diagnostic Imaging Department [address] [place] [address] | | MRI LUMBAR SPINE WITHOUT CONTRAST: [...] DUE TO A FOCAL FORAMIN AL DISK MI | |OTRUSION AT L5-S1. | | | |Dictated Date/Time: 11/21/2011 11:02 | |Transcribed Date/Time: 11/21/2011 11:20 | |Oracle Specialist: | |<Electronically Signed by Mitch Villanueva MD> 11/21/116 | + + + +---------+ + + | Performing | Address | City/State[facility] | Phone Number | | Organization | | | | + +---------+ + + | [facility] | | | | | EMILEE STEWART | | | | + +---------+ + + documented in this encounter Visit Diagnoses Not on filedocumented in this encounter"
--- OUTSIDE RECORDS SUMMARY | ~2019-10-18 | XMS | Encounter Summary ---
Demographics + + + | Address | [address] | | | [place] [address] | + + + | Home Phone | | + + + | Preferred Language | Unknown | + + + | Marital Status | | + + + | Lutheran Affiliation | 1027 | + + + [...] Team Providers + +------+ + | Care Fire Loss Prevention Engineer Name | Role | Phone | [...] + + | 12/10/ | Telephone | [facility] [place] | Christiano, | Results, Imaging | | 2017 | | [address]RY [address] | [address]AL[address]EL Saucedo [address] | | | | | [place], | [facility], | | | | | [place] [address] | [place] [address] | | | | | [phone] | | | | | | | [...] [place], | | | | | | [place] [address] | | | | | | [phone] | | | | | | | [...]
--- OUTSIDE RECORDS SUMMARY | ~2019-10-18 | XMS | Encounter Summary ---
Demographics + + + | Address | [address] | | | [place] [address] | + + + | Home Phone | | + + + | Preferred Language | Unknown | + + + | Marital Status | | + + + | Taoist Affiliation | 1027 | + + + [...] Team Providers + +------+ + | Care Train Brake Operator Name | Role | Phone | + +------+ + | Jesus Mijares MD | PCP | | + +------+ + Encounter Details +--------+ + + + + | Date | Type | Department | Care Team | Description | +--------+ + + + + | 03/30/ | Hospital | [facility] | Capo Bermudez, | Chronic left | | 2019 | Encounter | MED CTR SUE XRAY | PA-C [address] | shoulder pain | | | | [address] [place] | [address] [place] | | | | | [place], [place] | [place] [address] | | | | | [address] | [phone] | | | | | [phone] | | | +--------+ + + + [...] +---------+ + + | amitriptyline | Take 10 mg by mouth | | 0 | | | | (ELAVIL) 10 mg | nightly. [...] + + + +---------+ + + | cephalexin | Take 500 mg by mouth | | 0 | 03/24/20 | | | (KEFLEX) 500 mg | 4 times daily. | | | 19 | | | capsule | | | | | | + + + +---------+ + + | cholecalciferol | Take 1,000 Units by | | 0 | | | | (CHOLECALCIFEROL) | mouth Daily. | | | | | | 1,000 units capsule | | [...] + | digoxin (LANOXIN) | Take 125 mg by mouth | | 0 | 03/07/20 | | | 125 mcg tablet | nightly. | | | 19 | | + + + +---------+ + [...] mg by mouth | | 3 | 03/24/20 | | | (DESYREL) 100 mg | nightly. | | | 19 | | | tablet | | | | | | + + + +---------+ + + | warfarin | Take 6 mg by mouth | | 99 | 03/18/20 | | | (COUMADIN) 6 MG | Daily. Patient | | | 19 | | | tablet | taking 6 mg tablet | | | | | | | on Saturday, | | | | | | | Saturday, , | | | | | | | and Saturday | | | | | + + [...] | 0 | 06/04/20 | | | (ELVIAOR-CON M20) 20 | mouth. | | | [...] | | | | | | [place] [address] | | | | | | [phone] | | | | | | | [...] | + +--------+ + + + | IMAGING REPORT - | | 04/09/2019 | | Results for this | | EXTERNAL SCAN | | 12:00 AM | | procedure are in the | | | | PDT | | results section. | + +--------+ + + + | IMAGING REPORT - | | 04/09/2019 | | Results for this | | EXTERNAL SCAN | | 12:00 AM | | procedure are in the | | | | PDT | | results section. | + +--------+ + + + | XR SHOULDER LEFT 2 + | Routin | 03/30/2019 | Chronic left | Results for this | | VW | e | 10:37 AM | shoulder pain | procedure are in the | | | | PDT | | results section. | + +--------+ + + + documented in this encounter Results IMAGING REPORT - EXTERNAL SCAN (04/09/2019 12:00 AM PDT) + + + | Narrative | Performed At | + + + | Ordered by an | | | unspecified provider. | | + + + IMAGING REPORT - EXTERNAL SCAN (04/09/2019 12:00 AM PDT) + + + | Narrative | Performed At | + + + | Ordered by an | | | unspecified provider. | | + + + XR Shoulder Left 2 + Vw (03/30/2019 [...] | Diagnosis | + + | Chronic left shoulder [...]
--- OUTSIDE RECORDS SUMMARY | ~2019-10-18 | XMS | Encounter Summary ---
Demographics + + + | Address | [address] | | | [place] [address] | + + + | Home Phone [...] Team Providers + +------+ + | Care Sox Analyst Name | Role | Phone | [...] + | 02/03/ | Telephone | [facility] | Nilson Chaudhry | Appointment | | 2012 | | [address] | [address] | | | | | [place], | [place], [place] | | | | | [place] [address] | [address] | | | | | [phone] | | | +--------+ + + + [...] | | | | | | [place] [address] | | | | | | [phone] | | | | | | | [...]
--- OUTSIDE RECORDS SUMMARY | ~2019-10-18 | XMS | Encounter Summary ---
Demographics + + + | Address | [address] | | | [place] [address] | + + + | Home Phone | | + + + | Preferred Language | Unknown | + + + | Marital Status | | + + + | Adventist Affiliation | 1027 | + + + | Race | Unknown | + + + | Ethnic Group | Unknown | + + + Author + + + | Author | [facility] | | | and [place] | + + + | Organization | [facility] | | [...] Team Providers + +------+ + | Care Shipping Hand Name | Role | Phone | + +------+ + | Jesus Mijares MD | PCP | | + +------+ + Encounter Details +--------+ + + + + | Date | Type | Department | Care Team | Description | +--------+ + + + + | 11/01/ | Orders Only | [facility] | Maryana, | | | 2016 | | CARDIOLOGY [place] | Jesus Miranda MD | | | | | [address] | [address] | | | | | [facility] [place] | [address] [place], [place] | | | | | [address] | [address] | | | | | [phone] | [phone] | | | | | | | [...] | | | | | | [place] [address] | | | | | | [phone] | | | | | | | [...]
--- OUTSIDE RECORDS SUMMARY | ~2019-10-18 | XMS | Encounter Summary ---
Demographics + + + | Address | [address] | | | [place] [address] | + + + | Home Phone [...] Team Providers + +------+ + | Care Immigration Specialist Name | Role | Phone | + +------+ + | Jesus Mijares MD | PCP | | + +------+ + Encounter Details +--------+ + + + + | Date | Type | Department | Care Team | Description | +--------+ + + + + | 07/17/ | Orders Only | [facility] | Conversion | | | 2015 | | NEPHROLOGY [place] | Transaction, | | | | | [address] | Provider Unknown | | | | | [address] [facility] [place] | | | | | | [address] | (Fax) | | | | | [phone] | | | +--------+ + + + [...] | | | | | | [place] [address] | | | | | | [phone] | | | | | | | [...] + + | URINALYSIS, | Routin | 07/17/2016 | | Results for this | | MICROSCOPIC ONLY | e | 2:20 PM | | procedure are in the | | | | PDT | | results section. | + +--------+ + + + documented in this encounter Results Urinalysis, Microscopic Only (07/17/2016 2:20 PM PDT) + + + + + [...] + + + + | Specific | 1.006 | 1.005 - 1.030 | EXTERNAL | | | [place] | | | LAB | | + + + + + + | Leukocyte | Comment: 25 | | EXTERNAL | | | Esterase, [...]
--- OUTSIDE RECORDS SUMMARY | ~2019-10-18 | XMS | Encounter Summary ---
Demographics + + + | Address | [address] | | | [place] [address] | + + + | Home Phone | | + + + | Preferred Language | Unknown | + + + | Marital Status | | + + + | Christian Affiliation | 1027 | + + + | Race | Unknown | + + + | Ethnic Group | Unknown | + + + Author + + + | Author | [facility] | | | and [place] | + + + | Organization | [facility] | | [...] Team Providers + +------+ + | Care Dielectric Testing Machine Operator Name | Role | Phone | + +------+ + | Jesus Mijares MD | PCP | | + +------+ + Reason for Visit + + + | Reason | Comments | + + + | Back Pain | low back pain radiating down bilateral hips and legs | + + + Encounter Details +--------+---------+ + + + | Date | Type | Department | Care Team | Description | +--------+---------+ + + + | 02/24/ | Office | [facility] | Christiano, | Lumbar radiculopathy | | 2015 | Visit | [address] | [address] | (Primary Dx); | | | | [place], | [place], | Spinal stenosis of | | | | [place] [address] | [place] [address] | lumbar region - | | | | [phone] | [phone] | L3/L4, 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; | | | | | | Chronic back pain; | | | | | | Lumbar scoliosis | +--------+---------+ + + + Social History [...] + + + | Blood Pressure | 138/68 | 02/24/2015 11:05 AM | | | | | PDT | | + + + + + | Pulse | 50 | 02/24/2015 11:05 AM | | | | | PDT [...] Weight | 93 kg (205 lb) | 02/24/2015 11:05 AM | | | | | PDT | | + + + + + | Height | 162.6 cm (5' 4") | 02/24/2015 11:05 AM | | | | | PDT | | + + + + + | Body Mass Index | 35.19 | 02/24/2015 11:05 AM | | | | | PDT | | + + + + + documented in this encounter Patient Instructions Patient Instructions Sheryl Alvarado PA-C - 02/24/2015 11:26 AM PDT Follow-up at the hospital thirty [...] of the procedure you must provide a driver's license reviewing officer to take you home. For all procedur es it is recommended that someone else drive you home. documented in this encounter Progress Notes Sheryl Alvarado PA-C - 02/24/2015 11:50 AM PDTFormatting of this note might be differe nt from the original. CHIEF COMPLAINT: Chief Complaint Patient presents with Back Pain low back pain radiating down bilateral hips and legs HISTORY OF PRESENT ILLNESS: The patient is a 74 y.o. female being seen today in follow-up for complaints of low back pa in. The patient has been seen for this complaint in the past, with initial visit started b tomi Chaudhry. Previously it was recommended that she receive bilateral L4/L5 epidural i njection for spinal stenosis. She last received this in November of 2014, she reports it he lped greatly, unfortunately her pain has returned. She [...] (MSM) 1000 MG CAPS 2 capsules daily No current facility-administered medications for this [...] No abnormal bleeding PHYSICAL EXAMINATION: Filed Vitals: 02/24/15 1105 BP: 138/68 Pulse: 50 PainSc: 10 - Worst pain ever PainLoc: Back Body mass index is 35.17 kg/(m^2). GENERAL: The patient is well developed [...] has no apparent deficits with short or penitentiary memory. She has appropriate fund of knowledge [...] facet arthritis. ASSESSMENT: Encounter Diagnoses Name Primary? Lumbar radiculopathy Yes Spinal stenosis of lumbar region - L3/L4, adjacent segment disease Chronic back pain Lumbar scoliosis PLAN: 1. The patient has had significant conservative care including medications (NSAIDS and sam cotics), PT (multiple sessions over the years) and patient care representative. Unfortunately she cont inues to have significant [...] injection. ELECTRONICALLY SIGNED BY: Sheryl Alvarado PA-C, 02/24/2015 SUPERVISING PHYSICIAN: Nilson Chaudhry MD, who was [...] [place], | | | | | | [place] [address] | | | | | | [phone] | | | | | | | [...] ICD-9 Code 724.4 Rebecca Lua | [facility] | | Jonathan presents to the fluoroscopy suite for fluoroscopically-guided [facility] | | bilateral L4-L5 transforaminal epidural steroid [...] | + + + + + | [facility] | [address] | [place], [place] | [phone] | | [facility] | | [address] | | | - IMAGING | | [...]
--- OUTSIDE RECORDS SUMMARY | ~2019-10-18 | XMS | Encounter Summary ---
Demographics + + + | Address | [address] | | | [place] [address] | + + + | Home Phone [...] Team Providers + +------+ + | Care Project Executive Name | Role | Phone | [...] Provider Unknown | | | | | [address] | [phone] | | | | | [phone] | | | +--------+ + + + [...] | | | | | | [place] [address] | | | | | | [phone] | | | | | | | [...] | | Dictated: 09/15/2013 10:44 AM Job: [id number] | | + + + + + [...] Dictated: 09/15/2013 10:44 AM | | Job: [id number] | + + documented in this encounter Visit Diagnoses + + | Diagnosis | + + | S/P lumbar fusion Arthrodesis status | + + documented in this encounter"
--- OUTSIDE RECORDS SUMMARY | ~2019-10-18 | XMS | Encounter Summary ---
Demographics + + + | Address | [address] | | | [place] [address] | + + + | Home Phone | | + + + | Preferred Language | Unknown | + + + | Marital Status | | + + + | Mandaeism Affiliation | 1027 | + + + [...] Team Providers + +------+ + | Care Die Maker Name | Role | Phone | [...] + + | 07/31/ | Office | [facility] | Christiano, | Lumbar radiculopathy | | 2018 | Visit | [address] | [address] | (Primary Dx); | | | | [place], | [facility], | Spinal stenosis of | | | | [place] [address] | [place] [address] | lumbar region | | | | [phone] | [phone] | without neurogenic | | | | | | claudication; | | | | | | Trochanteric | | | | | | bursitis of right | | | | | | hip; Acute pain of | | | | | | right shoulder; | | | | | | DEGENERATIVE DISC | | | | | | DISEASE, LUMBAR | | | | | | SPINE; Chronic | | | | | | bilateral low back | | | | | | pain with sciatica, | | | | | | sciatica laterality | | | | | | unspecified | +--------+---------+ + + + Social History [...] + + + | Blood Pressure | 121/75 | 07/31/2018 9:56 AM | | | | | PDT | | + + + + + | Pulse | 83 | 07/31/2018 9:56 AM | | | | | PDT | | + + + + + | Temperature | - | - | | + + + + + | Respiratory Rate | 18 | 07/31/2018 9:56 AM | | | | | PDT | | + + + + + | Oxygen Saturation | - | - | | + + + + + | Inhaled Oxygen | - | - | | | Concentration | | | | + + + + + | Weight | 88.5 kg (195 lb) | 07/31/2018 9:56 AM | | | | | PDT | | + + + + + | Height | 162.6 cm (5' 4") | 07/31/2018 9:56 AM | | | | | PDT | | + + + + + | Body Mass Index | 33.47 | 07/31/2018 9:56 AM | | | | | PDT | | + + + + + documented in this encounter Patient Instructions Patient Instructions Sheryl Alvarado PA-C - 07/31/2018 10:00 AM PDT1) Back injection w meena Chaudhry 2) Right shoulder and right hip injection with 1/2 steroid in each Follow-up at the hospital thirty minutes before [...] of the procedure you must provide a fence post driver to take you home. For all procedur es it is recommended that someone else drive you home. documented in this encounter Progress Notes Sheryl Alvarado PA-C - 07/31/2018 10:00 AM PDTFormatting of this note might be differe nt from the original. CHIEF COMPLAINT: Chief Complaint Patient presents with Follow-up HISTORY OF PRESENT ILLNESS: The patient is [...] injection. She l ast received this last 05/01/2018. She reports excellent relief for 1 months. Unfortunately she did not receive the right trochanteric bursa injection, and she is hoping for this. 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 This was last done 05/01/2018. She reports only 1 month of relief [...] in [address] Yong Pena in [place], use of hydrocodone 3 x/day and flexeril, [...] HEMATOLOGIC/LYMPHATIC: No abnormal bleeding PHYSICAL EXAMINATION: Vitals: 07/31/18 0956 BP: 121/75 Pulse: 83 Resp: 18 PainSc: 8 PainLoc: Back GENERAL: The patient [...] has no apparent deficits with short or correction memory. She has appropriate fund of knowledge [...] of lumbar region without neurogenic claudication 3. Trochanteric bursitis of right hip 4. Acute pain of right shoulder 5. DEGENERATIVE DISC DISEASE, LUMBAR SPINE 6. Chronic bilateral low back pain with sciatica, sciatica laterality unspecified PLAN: 1. Patient will undergo L4/L5 bilateral epidural injections today as this has worked in e past. The patient has had significant conservative care including medications (NSAIDS and narcoti cs), PT (multiple sessions over the years) and housekeeper child care. Unfortunately she continue s to have significant [...] infection. ELECTRONICALLY SIGNED BY: Sheryl Alvarado PA-C, 07/31/2018 documented in this encounter Plan of Treatment [...] | | | | | | [place] [address] | | | | | | [phone] | | | | | | | [...] of hip region | + + | Acute pain of right shoulder | + + | DEGENERATIVE DISC DISEASE, [...]
--- OUTSIDE RECORDS SUMMARY | ~2019-10-18 | XMS | Encounter Summary ---
Demographics + + + | Address | [address] | | | [place] [address] | + + + | Home Phone | | + + + | Preferred Language | Unknown | + + + | Marital Status | | + + + | Baptism Affiliation | 1027 | + + + | Race | Unknown | + + + | Ethnic Group | Unknown | + + + Author + + + | Author | [facility] | | | and [place] | + + + | Organization | [facility] | | | [...] Team Providers + +------+ + | Care Search Marketing Coordinator Name | Role | Phone | + [...] | | | [place], | [address] | | | | | Degenerative | Sheryl, | [place], | | | | | disc | PA-C [address] | [place] | | | | | disease, | [address] | [address] | | | | | lumbar | [place], [place] | Phone: | | | | | Chronic back | [address] | [phone] | | | | | pain | Phone: | Fax: | | | | | Idiopathic | [phone] | [phone] | | | | | scoliosis | Fax: | | | | | | Procedures | [phone] | | | | | | MRI [...] | | | Anaidmeghancz, | [address] | | | | | Degenerative | Sheryl, | [place], | | | | | disc | PA-C [address] | [place] | | | | | disease, | [address] | [address] | | | | | lumbar | [place], [place] | Phone: | | | | | Chronic back | [address] | [phone] | | | | | pain | Phone: | Fax: | | | | | Idiopathic | [phone] | [phone] | | | | | scoliosis | Fax: | | | | | | Procedures | [phone] | | | | | | MRI [...] + + | 07/15/ | Hospital | [facility] | Christiano, | DEGENERATIVE DISC | | 2013 | Encounter | MED CTR MRI [address] | GAMLA[address] Saucedo [address] | DISEASE, LUMBAR | | | | [address] [place], | [place], | SPINE; Chronic back | | | | [place] [address] | [place] [address] | pain; SCOLIOSIS , | | | | [phone] | [phone] | IDIOPATHIC | | | | | [...] | | | | | | [place] [address] | | | | | | [phone] | | | | | | | [...] + | MISCELLANEOUS LAB | | | [phone] | + +---------+ + + | MISCELANIOUS LAB | | | [phone] | + +---------+ + + documented in [...] | | | | PRN, Other, Starting [facility] 07/15/14 | | AM PDT | | | | | at 1133, For 1 dose, MRI | | | | | | + +--------+ +--------+------+------+ +---+---+ | | | +---+---+ documented in this encounter"
--- OUTSIDE RECORDS SUMMARY | ~2019-10-18 | XMS | Encounter Summary ---
Demographics + + + | Address | [address] | | | [place] [address] | + + + | Home Phone | | + + + | Preferred Language | Unknown | + + + | Marital Status | | + + + | Jainism Affiliation | 1027 | + + + | Race | Unknown | + + + | Ethnic Group | Unknown | + + + Author + + + | Author | [facility] | | | and [place] | + + + | Organization | [facility] | [...] Team Providers + +------+ + | Care After School Tutor Name | Role | Phone | + +------+ + | Jesus Mijares MD | PCP | | + +------+ + Reason for Visit + + + | Reason | Comments | + + + | Follow-up | post injection | + + + Encounter Details +--------+---------+ + + + | Date | Type | Department | Care Team | Description | +--------+---------+ + + + | 08/09/ | Office | [facility] | [place], | Lumbar radiculopathy | | 2013 | Visit | PHYSIATRY [address] | [address] Saucedo [address] | (Primary Dx); | | | | [place], | [facility], | Spinal stenosis of | | | | [place] [address] | [place] [address] | lumbar region - | | | | [phone] | [phone] | L3/L4, 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; | | | | | | DEGENERATIVE DISC | | | | | | DISEASE, LUMBAR | | | | | | SPINE; SCOLIOSIS , | | | | | | IDIOPATHIC; BACK | | | | | | PAIN, LUMBAR; | | | | | | Chronic back pain; | | | | | | Facet arthritis of | | | | | | lumbar region; | | | | | [...] + + + | Blood Pressure | 123/83 | 08/09/2014 10:29 AM | | | | | PDT | | + + + + + | Pulse | 96 | 08/09/2014 10:29 AM | | | | | PDT | | + + + + + | Temperature | - | - | | + + + + + | Respiratory Rate | 18 | 08/09/2014 10:29 AM | | | | | PDT | | + + + + + | Oxygen Saturation | - | - | | + + + + + | Inhaled Oxygen | - | - | | | Concentration | | | | + + + + + | Weight | 93 kg (205 lb) | 08/09/2014 10:29 AM | | | | | PDT | | + + + + + | Height | 162.6 cm (5' 4") | 08/09/2014 10:29 AM | | | | | PDT | | + + + + + | Body Mass Index | 35.19 | 08/09/2014 10:29 AM | | | | | PDT | | + + + + + documented in this encounter Patient Instructions Patient Instructions Sheryl Alvarado PA-C - 08/09/2014 10:55 AM PDT Follow-up at the hospital thirty [...] the procedure you must provide a trash truck driver to take you home. For all procedur es it is recommended that someone else drive you home. documented in this encounter Progress Notes Sheryl Alvarado PA-C - 08/09/2014 10:30 AM PDTFormatting of this note might be differe nt from the original. CHIEF COMPLAINT: Chief Complaint Patient presents with Follow-up post injection HISTORY OF PRESENT ILLNESS: The patient is a 74 y.o. female being seen today in follow-up for complaints of low back pa in. The patient has been seen for this complaint in the past, with initial visit started b tomi Chaudhry. Previously it was recommended that she receive bilateral SI joint injecti on. This was performed 07/19/2014. She reports no improvement with this injection. He is al so here to review lumbar MRI results. She had a lumbar fusion performed 1 year ago and repo rts 50% improvement with this injection. She reports constant dull aching and occasional sh quang pains to the low back depending on movement. Her symptoms worsen with bending, twisting. Her symptoms improve with rest. The patient does describe numbness of the bilateral lower extremities, but reports to have diabetic neuropathy, and does report this improve after the surgery. She also reports occa sional radiation of pain down the right greater than left leg following the L5 dermatome. She does report weakness of the bilateral legs, but reports again this did improve after th e surgery. The patient does not report recent falls or trauma. She does not have bowel and bladder dysfunction. She does not have saddle anesthesia. Treatments for these complaints have included 8 weeks of physical therapy after her lumbar fusion. Lumbar fusion of L4/L5 performed by Dr. Yong Pena in [place], use of hydrocodone 3x/day and flexeril. Patient's [...] No abnormal bleeding PHYSICAL EXAMINATION: Filed Vitals: 08/09/14 1029 BP: 123/83 Pulse: 96 Resp: 18 PainSc: 7 PainLoc: Back Body mass index is 35.17 kg/(m^2). GENERAL: The patient is well developed and well nourished. She does appear uncomfortable w hen seated, she is leaning forward in the chair. HEENT: HEAD/FACE: EYES: EARS: NASOPHARNYX: OROPHARNYX: Normocephalic and atraumatic. There are no areas of recent trauma. Normal sclerae without icterus. No drainage or tenderness. Clear without drainage. Clear without erythema. SKIN Limited skin exam shows no significant rashes or lesions. There are scars in the lumb ar region, well healed vertical incision. CHEST: The patient is in no acute [...] has no apparent deficits with short or long-term memory. She has appropriate fund of knowledge [...] spine. Straight leg raise and slump-sit are slightly positive on the right. Gutierrez's maneuver an d impingement testing were negative for any groin pain. There was tenderness to palpation over the bilateral greater trochanters and bilateral sacral sulci. The patient localized th e majority of the pain to the L3/L4 region above the fusion with more pain to the bilateral SI joints. Lumbar facet loading was hard to access as the patient could barely stand up str aight. Strength testing showed 5/5 strength throughout the [...] forami nal stenosis and multi-level facet arthritis. L2-3: Broad posterior disc protrusion. Facet arthrosis. Asymmetric disc narrowing on the left. Mild narrowing of the central spinal canal. Mild to moderate encroachment on the left subarticular recess. Moderate left neural foraminal narrowing. This level is mildly progressed. L3-4: Circumferential disc bulge. This includes a broad posterior disc protrusion which extends into the neural foramen. Facet arthrosis bilaterally. Left facet effusion. There is significant encroachment on the left subarticular recess. There is overall moderate to severe narrowing of the central spinal canal. There is moderate left neural foraminal narrowing. There is mild right neural foraminal narrowing. All findings have progressed at this level. L4-5: Postsurgical changes. Patent central spinal canal. Mild residual foraminal narrowing. L5-S1: Anterolisthesis. Uncovering of the disc and disc protrusion. Moderate facet arthrosis bilaterally. The central spinal canal is patent. Moderate to severe right neural foraminal narrowing. The left is patent. The foraminal narrowing on the right has progressed. ASSESSMENT: 1. Lumbar radiculopathy 2. Spinal stenosis of lumbar region - L3/L4, adjacent segment disease 3. DEGENERATIVE DISC DISEASE, LUMBAR SPINE 4. SCOLIOSIS , IDIOPATHIC 5. BACK PAIN, LUMBAR 6. Spondylolisthesis 7. Chronic back pain 8. Facet arthritis of lumbar region PLAN: 1. The patient's symptoms are multi-factorial in nature. After reviewing the MRI with the patient and her we discussed treatment options. The spinal stenosis at the level a erma the fusion is severe. The patient doesn't want surgery as last year she had a hard joy e recovering from it. She would like to try epidural injection targeting the spinal stenosi s. She continues to be tender over the bilateral SI joints, but the SI joint injection did not improve her symptoms. I agree with her, that we should try targeting the spinal stenosi s as it is severe. I have ordered a bilateral L4/L5 TFESI to be performed in the near futur e. She will follow up 2 weeks after the injection with Dr. Chaudhry. She does have sympt oms consistent with a right L5 radiculopathy, however she states this is intermittent, this may be something to address later on as her MRI does show significant foraminal stenosis and an epidural injection may be of benefit later on. However, we will have to be wary of the number of steroid injections to give her. 2. Medications have been reviewed at today's visit. She denies trying a neuropathic pain medicine and after discussion she would like to try Gabapentin. I have ordered it to be sta rted on a low dose and gradually increase to 300mg BID. If it's working, we can always incr ease as tolerated. ELECTRONICALLY SIGNED BY: Sheryl Alvarado PA-C 08/09/2014 SUPERVISING PHYSICIAN: Nilson Chaudhry MD, who was present in the clinic today during this visit. CC: Dr. Mijares documented in t his encounter Plan of Treatment +--------+ + + + + | Date | Type | Specialty | Care Team | Description | +--------+ + + + + | 11/17/ | Office | Cardiology | Raejndra Fowler, | | | 2019 | Visit | | MD [address] | | | | | | [place], | | | | | | [place] [address] | | | | | | [phone] | | | | | | | [...] this encounter Results FL SRINIVAS Lumbar Transforaminal (08/19/2014 2:37 PM PST) + + | Specimen | + + | | + + + + + | Narrative | Performed At | + + + | 08/19/2014 Bilateral Transforaminal Epidural Steroid Injections | [facility] | | Diagnosis: Lumbar radiculopathy ICD-9 Code 724.4 Rebecca Lua | [facility] | | Jonathan presents to the fluoroscopy suite for fluoroscopically-guided [facility] | | bilateral L4-L5 transforaminal [...] + + | Nilson Chaudhry MD - 08/20/2014 12:09 PM PST 08/19/2014ilateral Transforaminal | | Epidural Steroid InjectionsDiagnosis: Lumbar radiculopathyICD-9 Code 724.4Marie [facility] | | Jonathan presents to the fluoroscopy suite for fluoroscopically-guided bilateral L4-L5 | | transforaminal epidural steroid injections as part of conservative management for | | chronic pain with lumbar radiculopathy and degenerative disk disease. After informed | | consent was obtained, the patient lay in the prone position on the fluoroscopy table. | | The areas were identified under fluoroscopic guidance. The areas were prepped and draped | | in sterile fashion. A 25-gauge, 1.5-inch needle was inserted into each region and | | approximately 3 mL of buffered 1% lidocaine was infused. Then, a 22-gauge spinal needle | | was inserted into the posterior superior transforaminal space bilaterally and advanced | | into the epidural space under fluoroscopic guidance. Confirmation into the epidural | | space was obtained with infusion of approximately 1 mL of Omnipaque contrast which | | showed epidural flow as well as nerve sheath flow. Then, a combination of 2 mL of 1% | | lidocaine and 2 mL of 6 mg/mL Celestone was infused, divided between the two sides. The | | patient tolerated the procedure well without complications. Pre- and post-procedure | | blood pressures were stable. The patient was given verbal as well as written follow-up | | instructions. Prior to the start of the procedure, the following were performed and/or | | verified, including correct patient identity, correct site/side marked and visible, | | agreement on the procedure to be done, correct patient positioning and an accurate | | procedure consent form. Any safety precautions based on clinical history and/or | | medication use have been addressed. I personally performed the procedure above.Estimated | | blood loss: MinimalComplications: NoneFindings: As expectedAnesthesia: Local 1% | | Lidocaine | + + + + + + + | Performing | Address | City/State/Zipcode | Phone Number | | Organization | | | | + + + + + | [facility] | [address] | [place] | [phone] | | [facility] | | [address] | | | - IMAGING | | [...] (and kyphoscoliosis), idiopathic | + + | BACK PAIN, LUMBAR Lumbago | + + | Chronic back pain Backache, unspecified | + + | Facet arthritis of lumbar region Lumbosacral spondylosis without myelopathy | + + | Lumbar scoliosis Scoliosis (and kyphoscoliosis), idiopathic | + + documented in this encounter
--- OUTSIDE RECORDS SUMMARY | ~2019-10-18 | XMS | Encounter Summary ---
Demographics + + + | Address | [address] | | | [place] [address] | + + + | Home Phone | | + + + | Preferred Language | Unknown | + + + | Marital Status | | + + + | Buddhism Affiliation | 1027 | + + + | Race | Unknown | + + + | Ethnic Group | Unknown | + + + Author + + + | Author | [facility] | | | and [place] | + + + | Organization | [facility] | | [...] Team Providers + +------+ + | Care Safety Associate Name | Role | Phone | + +------+ + | Jesus Mijares MD | PCP | | + +------+ + Encounter Details +--------+ + + + + | Date | Type | Department | Care Team | Description | +--------+ + + + + | 03/14/ | Orders Only | [facility] | Conversion | | | 2016 | | NEPRHOLOGY [place] | Transaction, | | | | | [address] | Provider Unknown | | | | | [address] [place], [place] | [phone] | | | | | [address] | | | | | | [phone] | | | +--------+ + + + [...] | | | | | | [place] [address] | | | | | | [phone] | | | | | | | [...] + | PARATHYROID HORMONE, | Routin | 03/14/2016 | | Results for this | | INTACT AND CALCIUM | e | 12:00 AM | | procedure are in the | | | | PDT | | results section. | + +--------+ + + + documented in this encounter Results Parathyroid Hormone, Intact and Calcium (03/14/2016 12:00 AM PDT) + + + + + + | Component | Value | Ref Range | Performed | Pathologist | | | | | At | Signature | + + + + + + | PTH Intact | 76.40 (A) | 15 - 65 | EXTERNAL | | | | | [...]
--- OUTSIDE RECORDS SUMMARY | ~2019-10-18 | XMS | Encounter Summary ---
Demographics + + + | Address | [address] | | | [place] [address] | + + + | Home Phone [...] Providers + +------+ + | Care Senior Support Analyst Name | Role | Phone | [...] + | 02/03/ | Telephone | [facility] | Nilson Chaudhry | Appointment | | 2012 | | PHYSIATRY [address] | [address] | | | | | [place], | [place], [place] | | | | | [place] [address] | [address] | | | | | [phone] | | | +--------+ + + + [...] | | | | | | [place] [address] | | | | | | [phone] | | | | | | | [...]
--- OUTSIDE RECORDS SUMMARY | ~2019-10-18 | XMS | Encounter Summary ---
Demographics + + + | Address | [address] | | | [place] [address] | + + + | Home Phone | | + + + | Preferred Language | Unknown | + + + | Marital Status | | + + + | Advent Affiliation | 1027 | + + + | Race | Unknown | + + + | Ethnic Group | Unknown | + + + Author + + + | Author | [facility] | | | and [place] | + + + | Organization | [facility] | | | and [place] | + [...] Team Providers + +------+ + | Care Juice Packaging Machines Setter Name | Role | Phone | + +------+ + | Jesus Mijares MD | PCP | | + +------+ + Reason for Visit +--------+ + | Reason | Comments | +--------+ + | Other | Referral to Dr. mouna moore | +--------+ + Encounter Details +--------+ + + + + | Date | Type | Department | Care Team | Description | +--------+ + + + + | 06/09/ | Telephone | [facility] | Nilson Chaudhry | Other (Referral to | | 2012 | | PHYSIATRY [address] | [address] | Dr. mouna moore) | | | | [place], | [place], [place] | | | | | [place] [address] | [address] | | | | | [phone] | | | +--------+ + + + [...] | | | | | | [place] [address] | | | | | | [phone] | | | | | | | [...]
--- OUTSIDE RECORDS SUMMARY | ~2019-10-18 | XMS | Encounter Summary ---
Demographics + + + | Address | [address] | | | [place] [address] | + + + | Home Phone [...] Team Providers + +------+ + | Care College Director Name | Role | Phone | + +------+ + | Jesus Mijares MD | PCP | | + +------+ + Encounter Details +--------+ + + + + | Date | Type | Department | Care Team | Description | +--------+ + + + + | 10/29/ | Orders Only | [facility] | Conversion | | | 2016 | | NEPHROLOGY [place] | Transaction, | | | | | [address] | Provider Unknown | | | | | [address] [facility] [place] | | | | | | [address] | (Fax) | | | | | [phone] | | | +--------+ + + + [...] | | | | | | [place] [address] | | | | | | [phone] | | | | | | | [...] - 1.030 | EXTERNAL | | | [place] | | | LAB | | + [...] | | | LAB | | | [place] | | | | | + +---------+ [...]
--- OUTSIDE RECORDS SUMMARY | ~2019-10-18 | XMS | Encounter Summary ---
Demographics + + + | Address | [address] | | | [place] [address] | + + + | Home Phone | | + + + | Preferred Language | Unknown | + + + | Marital Status | | + + + | Oriental Orthodox Affiliation | Unknown | + + + [...] Team Providers + +------+ + | Care Appeals Writer Name | Role | Phone | + +------+ + PCP | Unavailable | + +------+ + Encounter Details +--------+ + + + + | Date | Type | Department | Care Team | Description | +--------+ + + + + | 08/24/ | Office | | Note, Outpatient | Progress Note | | 2002 | Visit-Trans | | Clinic | | | | cribed [...] as of this encounter Progress Notes Interface, Gripper Machine Operator In - 05/15/2006 1:04 AM PDTCLINIC DATE: 08/24/2002 SUBJECTIVE: Ms. Jonathan is a 62-year-old lady who is 5 feet 6 inches tall and weighs 280 pounds with a BMI of 45.2. She is inquiring about bariatric procedure. She has the comorbidities of hypertension, diabetes, and gastroesophageal reflux disease. She has tried numerous diets including Weight Watchers and Thin Thin. She was able to loose about 50 pounds on each of these diets but gained her weight back. She has a family history of obesity. Her mother and her brother as well as her 3 sons are all obese. PAST MEDICAL HISTORY: See HIP. Her gastroesophageal reflux is severe with her waking up and coughing at night. As I mentioned, she does have hypertension and type 2 diabetes. PREVIOUS OPERATIONS: Appendectomy in 1951, tonsils in 1961, hysterectomy in 1983, gallbladder removed in 2001, and a hernia repair in 2000. MEDICATIONS: Spironolactone, hydrochlorothiazide 25/25, albuterol 200 mg a day, Actos 30 mg per day, Premarin 1.25 mg, amitriptyline 25 mg, and Lanoxin 0.25 mg 4 days a week and 0.5 mg 3 days a week. She also takes Prevacid and metoclopramide. She takes the digoxin for supraventricular tachycardia. REVIEW OF SYSTEMS: Noncontributory. Specifically, she has no change of bowel habits and no bloody stool. She does have some nausea and vomiting probably related to the GERD that occurs nightly. She has no complications with diabetes. She has no change in cough or breathing. PHYSICAL EXAMINATION GENERAL: An obese woman, pleasant and in no acute distress. VITAL SIGNS: Blood pressure today 136/84, pulse 80 and regular, and respirations 16. HEENT: Normal. NECK: Supple. LUNGS: Clear to auscultation and percussion. HEART: Regular rhythm. No murmurs, and no gallops. ABDOMEN: Midline incision. Truncal obesity. Bowel sounds normal. Liver palpable at 5 cm below the subcostal margin. EXTREMITIES: She has 2+ pitting bilateral edema. She has a hematoma over right anterior tibia and a healed skin ulcer anterior tibia. Peripheral pulses are good. IMPRESSION AND PLAN: This woman is morbidly obese with a BMI of 45.2 and many of the morbidities are comorbidities of her obesity such as type 2 diabetes; gastroesophageal reflux disease, pretty severe; and hypertension. I think she is a good candidate although a moderate risk for surgery. I will attempt to get authorization from her insurance company and plan to do a laparoscopic gastric bypass. Indra Ramos M.D. CD / HS [id number] / [id number] / [id number] / cc: Jesus Mijares M.D. [address] [place] [address] Geoffrey Castro M.D. [address] [place], [place] [address]Kiltolhzewddcs signed by Interface, Gripper Machine Operator In at 05/15/2006 1:0 4 AM PDTdocumented in this encounter Plan of Treatment Not on filedocumented as of this encounter Visit Diagnoses Not on filedocumented in this encounter"
--- OUTSIDE RECORDS SUMMARY | ~2019-10-18 | XMS | Encounter Summary ---
Demographics + + + | Address | [address] | | | [place] [address] | + + + | Home Phone [...] Providers + +------+ + | Care Car Shagger Name | Role | Phone | + +------+ + | Jesus Mijares MD | PCP | | + +------+ + Encounter Details +--------+ + + + + | Date | Type | Department | Care Team | Description | +--------+ + + + + | 10/18/ | Orders Only | [facility] | Rajendra Fowler, | | | 2015 | | CARDIOLOGY [place] | [address] | | | | | [address] | [place], | | | | | [facility] | [place] [address] | | | | | [address] | [phone] | | | | | [phone] | | | +--------+ + + + [...] | | | | | | [place] [address] | | | | | | [phone] | | | | | | | [...]
--- OUTSIDE RECORDS SUMMARY | ~2019-10-18 | XMS | Encounter Summary ---
Demographics + + + | Address | [address] | | | [place] [address] | + + + | Home Phone [...] Team Providers + +------+ + | Care Heavy Rail Train Operator Name | Role | Phone | + +------+ + | Jesus Mijares MD | PCP | | + +------+ + Encounter Details +--------+ + + + + | Date | Type | Department | Care Team | Description | +--------+ + + + + | 03/14/ | Orders Only | [facility] | Conversion | | | 2016 | | NEPRHOLOGY [place] | Transaction, | | | | | [address] | Provider Unknown | | | | | [address] [place], [place] | [phone] | | | | | [address] | | | | | | [phone] | | | +--------+ + + + [...] | | | | | | [place] [address] | | | | | | [phone] | | | | | | | [...]
--- OUTSIDE RECORDS SUMMARY | ~2019-10-18 | XMS | Encounter Summary ---
Demographics + + + | Address | [address] | | | [place] [address] | + + + | Home Phone [...] Providers + +------+ + | Care Hand Pattern Marker Name | Role | Phone | + [...] + + | 05/12/ | Telephone | [facility] | Nilson Chaudhry | Other (Neurosurgeon | | 2012 | | ORTHOPEDIC SURGERY | MD Camila [address] | referral and | | | | [address] [place] [address] | [place], [place] | possible injection) | | | | [place], [place] | [address] | | | | | [address] | | | | | | [phone] | | | +--------+ + + + [...] | | | | | | [place] [address] | | | | | | [phone] | | | | | | | [...]
--- OUTSIDE RECORDS SUMMARY | ~2019-10-18 | XMS | Encounter Summary ---
Demographics + + + | Address | [address] | | | [place] [address] | + + + | Home Phone [...] Team Providers + +------+ + | Care Android Framework Developer Name | Role | Phone [...] | Lumbar | [place], | [address] | | | | | radiculopath | Nilson Jensen MD | [place], | | | | | y | [address] | [place] | | | | | Procedures | [place] | [address] | | | | | [place] INJECT | [place], [place] | Phone: | | | | | ANES/STEROID | [address] | [phone] | | | | | FORAMEN | Phone: | Fax: | | | | | LUMBAR/SACRA | [phone] | [phone] | | | | | [address] | Fax: | | | | | | GUIDE ,[address] | [phone] | | | | | | [place] | | | | | | | [...] + | 12/01/ | Hospital | [facility] | Bogdanowicz, | Lumbar | | 2019 | Encounter | MED CTR XRAY [address] | [address] | radiculopathy; | | | | [address] [place] | [facility], | Spinal stenosis of | | | | [place] [address] | [place] [address] | lumbar region | | | | [phone] | [phone] | without neurogenic | | | | | | claudication; | | | | | [address] [facility] | DEGENERATIVE DISC | | [...] | | | | | | [place] [address] | | | | | | [phone] | | | | | | | [...]
--- OUTSIDE RECORDS SUMMARY | ~2019-10-18 | XMS | Encounter Summary ---
Demographics + + + | Address | [address] | | | [place] [address] | + + + | Home Phone | | + + + | Preferred Language | Unknown | + + + | Marital Status | | + + + | Taoism Affiliation | 1027 | + + + [...] Team Providers + +------+ + | Care Bathing Suit Maker Name | Role | Phone [...] Unknown | | | | | [address] [facility] [place] | | | | | | [address] | (Fax) | | | | | [phone] | | | +--------+ + + + [...] | | | | | | [place] [address] | | | | | | [phone] | | | | | | | [...] - 1.030 | EXTERNAL | | | [place] | | | LAB | | + [...]
--- OUTSIDE RECORDS SUMMARY | ~2019-10-18 | XMS | Encounter Summary ---
Demographics + + + | Address | [address] | | | [place] [address] | + + + | Home Phone | | + + + | Preferred Language | Unknown | + + + | Marital Status | | + + + | Buddhism Affiliation | 1027 | + + + | Race | Unknown | + + + | Ethnic Group | Unknown | + + + Author + + + | Author | [facility] | | | and [place] | + + + | Organization | [facility] | | [...] Team Providers + +------+ + | Care Door Assembler Name | Role | Phone | + [...] | | | Christiano, | [address] | | | | | Trochanteric | [place], | [place], | | | | | bursitis of | PA-C [address] | [place] | | | | | both hips | [address] | [address] | | | | | Procedures | [place] | Phone: | | | | | [place] | [address] | [phone] | | | | | Joint | Phone: | Fax: | | | | | Injection | [phone] | [phone] | | | | | Left | Fax: | | | | | | | [phone] | | +--------+--------+ + + + + Reason for Visit + + + | Reason | Comments | + + + | Back Pain | low back pain radiating into bilateral hips | + + + Encounter Details +--------+---------+ + + + | Date | Type | Department | Care Team | Description | +--------+---------+ + + + | 04/29/ | Office | [facility] | Christiano, | Lumbar radiculopathy | | 2017 | Visit | PHYSIATRY [address] | GAMALIEL Saucedo [address] | (Primary Dx); | | | | [place], | [facility], | Spinal stenosis [place] | | | | [place] [address] | [place] [address] | lumbar region - | | | | [phone] | [phone] | L3/L4, adjacent | | | | [...] of the procedure you must provide a fire truck driver to take you home. For [...] in [address] 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 Unfortunately she cont inues to have [...] | | | | | | [place] [address] | | | | | | [phone] | | | | | | | [...] At | + + ---+ | | [facility] | | 04/29/2017 Bilateral Transforaminal Epidural Steroid Injections and | [facility] | | Bilateral Trochanteric Bursa [...] + | [facility] | [address] | [place], [place] | [phone] | | [facility] | | [address] | | | - IMAGING | | [...] + | [address] | [address] | [place] | [phone] | | [facility] | | [address] | | | - IMAGING | | [...]
--- OUTSIDE RECORDS SUMMARY | ~2019-10-18 | XMS | Encounter Summary ---
Demographics + + + | Address | [address] | | | [place] [address] | + + + | Home Phone | | + + + | Preferred Language | Unknown | + + + | Marital Status | | + + + | Zoroastrian Affiliation | 1027 | + + + [...] Team Providers + +------+ + | Care Calciminer Name | Role | Phone | + +------+ + | Jesus Mijares MD | PCP | | + +------+ + Encounter Details +--------+ + + + + | Date | Type | Department | Care Team | Description | +--------+ + + + + | 01/05/ | Orders Only | [facility] | Ino Wilson MD | | | 2015 | | NEPHROLOGY [place] | [address] [place] | | | | | [address] [place] | [address] [place], [place] | | | | | [address] [place], [place] | [address] | | | | | [address] | | | | | | [phone] | | | +--------+ + + + [...] | | | | | | [place] [address] | | | | | | [phone] | | | | | | | [...]
--- OUTSIDE RECORDS SUMMARY | ~2019-10-18 | XMS | Encounter Summary ---
Demographics + + + | Address | [address] | | | [place] [address] | + + + | Home Phone [...] Team Providers + +------+ + | Care Edi Programmer Name | Role | Phone | + [...] | Lumbar | Bogdanowicz, | [address] | | | | | radiculopath | [place], | [place], | | | | | y Right hip | PA-C [address] | [place] | | | | | pain | [address] | [address] | | | | | Procedures | [place], [place] | Phone: | | | | | [place] | [address] | [phone] | | | | | Joint | Phone: | Fax: | | | | | Injection | [phone] | [phone] | | | | | Right [place] | Fax: | | | | | | INJECT | [phone] | | | | | | ANES/STEROID | | | | | | | FORAMEN | | | | | | | LUMBAR/SACRA | | | | | | | L W IMG | | | | | | | GUIDE ,1 | | | | | | | LEVEL NM | | | | | | | [...] | | | | | ADD ON NM | | | | | | | [...] | (Primary Dx); | | | | [address] [place], | [facility], | Spinal stenosis [place] | | | | [place] [address] | [place] [address] | lumbar region - | | | | [phone] | [phone] | L3/L4, adjacent | | | | [...] of the procedure you must provide a refrigerated company driver to take you home. For all [...] in [address] 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 Unfortunately she cont inues to have significant [...] | | | | | | [place] [address] | | | | | | [phone] | | | | | | | [...] Trochanteric Bursitis ICD-10 Code M54.16 and | [facility] | | M70.61 Rebeccapaola Castillo presents to [...] | + + + + + | [facility] | [address] | [place] | [phone] | | [facility] | | [address] | | | - IMAGING | | [...] Trochanteric Bursa Injection Diagnosis: Lumbar | [facility] | | radiculopathy and Trochanteric Bursitis ICD-10 Code M54.16 and | [facility] | | M70.61 Rebecca Castillo presents [...] + | [address] [facility] | [address] | [place] | [phone] | | [facility] | | [address] | | | - IMAGING | | [...]
--- OUTSIDE RECORDS SUMMARY | ~2019-10-18 | XMS | Encounter Summary ---
Demographics + + + | Address | [address] | | | [place] [address] | + + + | Home Phone | | + + + | Preferred Language | Unknown | + + + | Marital Status | | + + + | Scientologist Affiliation | 1027 | + + + [...] Team Providers + +------+ + | Care Zinc Miner Name | Role | Phone | + [...] | | both | [address] | [place], | | | | | shoulders | [place], | [place] | | | | | Chronic left | [place] [address] | [address] | | | | | shoulder | Phone: | Phone: | | | | | pain | [phone] | [phone] | | | | | | Fax: | Fax: | | | | | | [phone] | [phone] | + + + + + + + Encounter Details +--------+---------+ + + + | Date | Type | Department | Care Team | Description | +--------+---------+ + + + | 03/30/ | Office | [facility] | Capo Bermudez, | Impingement syndrome | | 2019 | Visit | ORTHOPEDIC SURGERY | PA-Bigg [address] | of left shoulder | | | | [address] [facility] | [address] | (Primary Dx) | | | | [place], [place] | [place] [address] | | | | | [address] | [phone] | | | | | [phone] | | | | | | | Rancho Aldrich | | | | | | MD [address] | | | | | | [facility] | | | | | | [place] [address] | | | | | | [phone] | | | | | | | [...] this encounter Patient Instructions Patient Instructions Rancho Aldrich MD - 03/30/2019 10:00 AM PDT Nonsurgical [...] Medicine To relieve pain and inflammation, try dqup-xzn-tptqsjd pain relievers, such as acetaminophe n or [...] benefits of this therapy. Date Last Reviewed: 02/11/201819994642-4198 [employer]. [address] [place] [address], [place] [address]. All righ ts reserved. This information is not intended as a substitute for professional medical care. Always follow your healthcare professional's instructions. documented in this encounter Progress Notes Rancho Aldrich MD - 03/30/2019 10:00 AM PDTFormatting of this note might be dif ferent from the original. [facility] HISTORY AND PHYSICAL EXAMINATION Pt. 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 CHF (congestive heart failure) ([facility]) 07/31/2018 Chronic back pain 06/24/2014 Chronic kidney disease 11/2015 Stage 3 Depression 03/20/2017 Diabetes mellitus ([facility]) Facet arthritis of lumbar region 03/06/2013 GERD (gastroesophageal reflux disease) Hyperlipidemia 03/28/2015 Hypertension Irregular heartbeat Lumbar scoliosis 08/09/2014 Migraine headache Myocardial infarction ([facility]) Neuropathy Nontraumatic tear of right supraspinatus tendon 01/03/2018 Sacroiliitis, not elsewhere classified ([facility]) 09/11/2016 Trochanteric bursitis of right hip 03/06/2016 [...] made to ensure accuracy; however, inadvertent computerized terminal make up operator errors may be pre sent. I appreciate [...] | | | | | | [place] [address] | | | | | | [phone] | | | | | | | [...]
--- OUTSIDE RECORDS SUMMARY | ~2019-10-18 | XMS | Encounter Summary ---
Demographics + + + | Address | [address] | | | [place] [address] | + + + | Home Phone | | + + + | Preferred Language | Unknown | + + + | Marital Status | | + + + | Shinto Affiliation | 1027 | + + + | Race | Unknown | + + + | Ethnic Group | Unknown | + + + Author + + + | Author | [facility] | | | and [place] | + + + | Organization | [facility] | | | [...] Team Providers + +------+ + | Care Asset Protection Professional Name | Role | Phone | + [...] + + | 06/11/ | Procedure | [facility] | Rajendra Fowler, | Cardiac pacemaker in | | 2019 | visit | CARDIOLOGY [place] | [address] | situ (Primary Dx); | | | | [address] | [place], | Sick sinus syndrome | | | | [place], [place] | [place] [address] | ([facility]); Chronic | | | | [address] | [phone] | diastolic heart | | | | [phone] | | failure ([facility]); | | | | | | Paroxysmal atrial | | | | | | fibrillation ([facility]) | +--------+ + + + [...] | | | | | | [place] [address] | | | | | | [phone] | | | | | | | [...] Mijares MD : | | | 1940MRN: [id number] Primary cardiology provider: Rai Fowler | | | Primary electrophysiology provider: Mary Moe Device drying oven tender: | | | Biotronik Device type: Dual chamber Battery Longevity: OK/80% | | | capacity RA Pacin% (but total of AP/VS and AP/SOCIOLOGY INSTRUCTOR is 81%)RV | | | Pacin% INTERROGATION [...]
--- OUTSIDE RECORDS SUMMARY | ~2019-10-18 | XMS | Encounter Summary ---
Demographics + + + | Address | [address] | | | [place] [address] | + + + | Home Phone | | + + + | Preferred Language | Unknown | + + + | Marital Status | | + + + | Pentecostalism Affiliation | 1027 | + + + | Race | Unknown | + + + | Ethnic Group | Unknown | + + + Author + + + | Author | [facility] | | | and [place] | + + + | Organization | [facility] | | [...] Team Providers + +------+ + | Care Byproducts Supervisor Name | Role | Phone | + +------+ + | Jesus Mijares MD | PCP | | + +------+ + Encounter Details +--------+ + + + + | Date | Type | Department | Care Team | Description | +--------+ + + + + | 12/05/ | Orders Only | [facility] | Veto Neri, | | | 2018 | | NEPHROLOGY [place] | TRIMMER OPERATOR THREE KNIFE [address] | | | | | [address] [place] | [address] | | | | | [address] [place], [place] | [place], [place] | | | | | [address] | [address] | | | | | [phone] | [phone] | | | | | | | [...] | | | | | | [place] [address] | | | | | | [phone] | | | | | | | [...] | | | LAB | | | [facility]O [facility] | | | | | + +---------+ [...]
--- OUTSIDE RECORDS SUMMARY | ~2019-10-18 | XMS | Encounter Summary ---
Demographics + + + | Address | [address] | | | [place] [address] | + + + | Home Phone [...] | + + +---------+ + | Cruz Marinao | ECON | Unknown | | + + +---------+ + | Carmine Mariano | ECON | Unknown | | + + +---------+ + Care Team Providers + +------+ + | Care Learning Coach Name | Role | Phone | + +------+ + PCP | Unavailable | + +------+ + Encounter Details +--------+ + + + + | Date | Type | Department | Care Team | Description | +--------+ + + + + | 04/21/ | Hospital | [facility] | | | | 2001 | Encounter | MED CTR XRAY [address] | | | | | | [address] | | | | | | [place] [address] | | | | | | [phone] | | | +--------+ + + + [...] [place], | | | | | | [place] [address] | | | | | | [phone] | | | | | | | [...]
--- OUTSIDE RECORDS SUMMARY | ~2019-10-18 | XMS | Clinical Summary ---
Demographics + + + | Address | [address] | | | [place] [address] | + + + | Home Phone | | + + + | Preferred Language | Unknown | + + + | Marital Status | | + + + | Protestant Affiliation | 1027 | + + + | Race | Unknown | + + + | Ethnic Group | Unknown | + + + Author + + + | Author | [employer] [facility] (Historical as of | | | 05-30-19) | + + + | Organization | [facility] (Historical as of | | | 05-30-19) [...] Team Providers + +------+ + | Care Rehabilitation Liaison Name | Role | Phone | + [...] ---------+ | Overview: Sylvia S-53 cm, model 699364, #[id number] lead was | | placed into the right ventricle and screwed intoposition on the | | septum, midway between the apex and outflow tract. Thefinal | | pacing threshold was 1 V at 0.5 msec, with R waves of 5.9 mV and | | theimpedance was 550 ohms. There was no diaphragmatic pacing at | | 10 V. Nautilus Solar Energytronic model 5076-45 cm lead was placed into [...] ohms. The leads were attached to a Sidelines EtrinKentaura 8 | | , model 922436,serial #[id number] pacemaker. FINAL | | SETTINGS FOR THE [...] due to the cost, followed at the [facility] | | clinic to monitor INR. [...] c | | BIOT | | | /16982 | | Chuy Wills MD | Rhythm [...] | Rhythm | | | | | [address] | | | | | | | | / | | | Manage | | | | | | | | ment | | | | | | + +--------+--------+ +--------+--------+--------+ | Pacer-03/20/2017Implanted: Qty: | Cardia | Chest | BIOTRONIK - | | | | | 1 on 03/20/2017 by Johann, | c | Wall | BIOT | | | /[id number] | | MD Chuy | Rhythm | [...] +------+-------+ + | MEDICARE | MEDICA | [id number] | | | [address] | | | RE | | | | [place] [address] | | | IP-OP | | | | | + +--------+ +------+-------+ + | [facility] | [place] | [id number] | | | | | | | [...] | Self | [birth year] | Home: | [address] | | | al/Gus | | 1940 | [phone] [place] | | | margarita | | | [address] | [address] | + +--------+ +--------+ + +
--- OUTSIDE RECORDS SUMMARY | ~2019-10-18 | XMS | Encounter Summary ---
Demographics + + + | Address | [address] | | | [place] [address] | + + + | Home Phone [...] Providers + +------+ + | Care Executive Sous Chef Name | Role | Phone | + [...] | SR | | | | | [phone] | | | +--------+ + + + [...] | | | | | | [place] [address] | | | | | | [phone] | | | | | | | [...]
--- OUTSIDE RECORDS SUMMARY | ~2019-10-18 | XMS | Encounter Summary ---
Demographics + + + | Address | [address] | | | [place] [address] | + + + | Home Phone | | + + + | Preferred Language | Unknown | + + + | Marital Status | | + + + | Bahai Affiliation | 1027 | + + + | Race | Unknown | + + + | Ethnic Group | Unknown | + + + Author + + + | Author | [facility] | | | and [place] | + + + | Organization | [facility] | | | [...] Team Providers + +------+ + | Care Recruitment Intern Name | Role | Phone | [...] | Lumbar | T[place], | [address] | | | | | radiculopath | Nilson Jensen MD | [place], | | | | | y | [address] | [place] | | | | | Procedures | [place] | [address] | | | | | [place] INJECT | [place], [place] | Phone: | | | | | ANES/STEROID | [address] | [phone] | | | | | FORAMEN | Phone: | Fax: | | | | | LUMBAR/SACRA | [phone] | [phone] | | | | | L W IMG | Fax: | | | | | | GUIDE ,1 | [phone] | | | | | | LEVEL [...] + + | 08/31/ | Hospital | [facility] | Christiano, | Lumbar radiculopathy | | 2015 | Encounter | MED CTR XRAY [address] | [address]ALI[address] Sauced[address] | (Primary Dx); | | | | [place] | [facility], | Spinal stenosis of | | | | [place] [address] | [place] [address] | lumbar region - | | | | [phone] | [phone] | L3/L4, 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; | | | | | Tech Intern [facility] | Spondylolisthesis; | | | | [...] | | | | | | [place] [address] | | | | | | [phone] | | | | | | | [...] Jonathan presents to the fluoroscopy suite for [facility] | | fluoroscopically-guided bilateral L4-L5 [...] [address] | [place] | [phone] | | [facility] | | [address] | | | - IMAGING | | [...]
--- OUTSIDE RECORDS SUMMARY | ~2019-10-18 | XMS | Encounter Summary ---
Demographics + + + | Address | [address] | | | [place] [address] | + + + | Home Phone [...] [facility] | | | and [place] | + [...] Team Providers + +------+ + | Care Operator Assistant I Cementing Name | Role | Phone | + [...] + + | 08/11/ | Office | [facility] | [place], | Spinal stenosis of | | 2014 | Visit | PHYSIATRY [address] | [address] Sauced[address] | lumbar region - | | | | [place], | [facility], | L3/L4, adjacent | | | | [place] [address] | [place] [address] | segment disease | | | | [phone] | [phone] | (Primary Dx); | | | | [...] of blood sugars if you are diabetic. snf risk can lead to osteoporosis which is [...] of the procedure you must provide a auto driver to take you home. For all [...] has no apparent deficits with short or senior care memory. 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 Unfortunately she cont inues to have [...] | | | | | | [place] [address] | | | | | | [phone] | | | | | | | [...] presents to the fluoroscopy suite for | [facility] | | fluoroscopically-guided bilateral L4-L5 transforaminal [...] [address] | [place] | [phone] | | [facility] | | [address] | | | - IMAGING | | [...]
--- OUTSIDE RECORDS SUMMARY | ~2019-10-18 | XMS | Encounter Summary ---
Demographics + + + | Address | [address] | | | [place] [address] | + + + | Home Phone | | + + + | Preferred Language | Unknown | + + + | Marital Status | | + + + | Jain Affiliation | 1027 | + + + | Race | Unknown | + + + | Ethnic Group | Unknown | + + + Author + + + | Author | [facility] | | | and [place] | + + + | Organization | [facility] | | | [...] + +------+ + | Care Professor Of Oceanography Name | Role | Phone | + +------+ + | Jesus Mijares MD | PCP | | + +------+ + Encounter Details +--------+ + + + + | Date | Type | Department | Care Team | Description | +--------+ + + + + | 05/30/ | Orders Only | [facility] | Conversion | | | 2018 | | NEPHROLOGY [place] | Transaction, | | | | | [address] | Provider Unknown | | | | | [address] [place], [place] | | | | | | [address] | (Fax) | | | | | [phone] | | | +--------+ + + + [...] | | | | | | [place] [address] | | | | | | [phone] | | | | | | | [...] | | | LAB | | | [place] | | | | | + +---------+ [...]
--- OUTSIDE RECORDS SUMMARY | ~2019-10-18 | XMS | Encounter Summary ---
Demographics + + + | Address | [address] | | | [place] [address] | + + + | Home Phone [...] Team Providers + +------+ + | Care Shot Hole Shooter Name | Role | Phone | + +------+ + | Jesus Mijares MD | PCP | | + +------+ + Encounter Details +--------+ + + + + | Date | Type | Department | Care Team | Description | +--------+ + + + + | 03/20/ | Hospital | [facility] | Conversion | Paroxysmal atrial | | 2017 | Encounter | [facility] | Transaction, | fibrillation ([facility]); | | | | CARE FLOOR [address] | Provider Unknown | SSS (sick sinus | | | | [address] | [phone] | syndrome) ([facility]); | | | | [place], [place] | | Snoring; | | | | [address] | Chuy Valverde MD | Gastroesophageal | | | | [phone] | [address] | reflux disease, | | | | | [place], [place] | esophagitis presence | | | | | [address] | not specified; | | | | [...] 03/20/171626 Date of Service: 03/20/171625 Status: Signed Mechanical Maintenance Foreman: Carley Lee RN (Registered Nurse) Discharge instructions [...] | | | | | | [place] [address] | | | | | | [phone] | | | | | | | [...] the | | | usual manner. A 7-Ukrainian introducer was placed into the subclavian | | | vein and through that, a Setrox S-53 cm, model 978134, #[id number] lead | | | was placed into [...] anchored with two #1 Ethibond sutures. Another 7-Ukrainian | | | introducer was placed into the subclavian vein and through that, a | | | TVA Medicaltronic model 5076-45 cm lead was placed into [...] | | | Etrinsa 8 , model 330621, serial #[id number] pacemaker. That | | | device was [...] | electrocautery in the usual manner. A 7-Ukrainian introducer was placed into | | the subclavian vein and through that, a Loom S-53 cm, model 202595, | | #[id number] lead was placed into the right ventricle [...] Ethibond sutures. | | | | Another 7-Ukrainian introducer was placed into the subclavian vein and through | | that, a BizArk model 5076-45 cm lead was placed into [...] | The leads were attached to a Cadence BancorproniSmalldeals Etrinsa 8 , model 490554, | | serial #[id number] pacemaker. That device was placed into the [...] | | | PCRAbnormal Testing performed at [facility] [place];[address] [place] [address];[place] [address] | | + + + + +---------+ [...]
--- OUTSIDE RECORDS SUMMARY | ~2019-10-18 | XMS | Encounter Summary ---
Demographics + + + | Address | [address] | | | [place] [address] | + + + | Home Phone | | + + + | Preferred Language | Unknown | + + + | Marital Status | | + + + | Gnosticist Affiliation | 1027 | + + + | Race | Unknown | + + + | Ethnic Group | Unknown | + + + Author + + + | Author | [facility] | | | and [place] | + + + | Organization | [facility] | | [...] Team Providers + +------+ + | Care Oil Pipeline Dispatcher Name | Role | Phone | + [...] + + | 06/11/ | Office | [facility] | [place], | Spinal stenosis of | | 2015 | Visit | PHYSIATRY [address] | [address] Sauced[address] | lumbar region - | | | | [place], | [address] [place], | L3/L4, adjacent | | | | [place] [address] | [place] [address] | segment disease | | | | [phone] | [phone] | (Primary Dx); | | | | [...] of the procedure you must provide a electric train driver to take you home. For all [...] [place] [address] Yong Pena in [place], use of hydrocodone 3 x/day and flexeril, [...] has no apparent deficits with short or custodial memory. 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 Unfortunately she cont inues to have significant [...] [place], | | | | | | [place] [address] | | | | | | [phone] | | | | | | | [...] Bursa Injection on Right Diagnosis: Lumbar | [facility] | | radiculopathy and Trochanteric bursitis ICD-10 Codes M54.16 and | [facility] | | M70.61 Rebecca Castillo presents [...] [address] | [place] | [phone] | | [facility] | | [address] | | | - IMAGING | | [...] Bursa Injection on Right Diagnosis: Lumbar | [facility] | | radiculopathy and Trochanteric bursitis ICD-10 Codes M54.16 and | [facility] | | M70.61 Rebecca Castillo presents [...] [address] | [place] | [phone] | | [facility] | | [address] | | | - IMAGING | | [...]
--- OUTSIDE RECORDS SUMMARY | ~2019-10-18 | XMS | Encounter Summary ---
Demographics + + + | Address | [address] | | | [place] [address] | + + + | Home Phone | | + + + | Preferred Language | Unknown | + + + | Marital Status | | + + + | Caodaism Affiliation | [id number] | + + + [...] Team Providers + +------+ + | Care Licensed Physical Therapist Name | Role | Phone | + +------+ + | Jesus Mijares MD | PCP | | + +------+ + Reason for Visit + + + | Reason | Comments | + + + | Medication Question | | + + + Encounter Details +--------+ + + + + | Date | Type | Department | Care Team | Description | +--------+ + + + + | 12/24/ | Telephone | [facility] | [place], | Medication Question | | 2017 | | PHYSIATRY [address] | [address] | | | | | [place], | [facility], | | | | | [place] [address] | [place] [address] | | | | | [phone] | [phone] | | | | | | | [...] [place], | | | | | | [place] [address] | | | | | | [phone] | | | | | | | [...]
--- OUTSIDE RECORDS SUMMARY | ~2019-10-18 | XMS | Encounter Summary ---
Demographics + + + | Address | [address] | | | [place] [address] | + + + | Home Phone [...] Team Providers + +------+ + | Care Landscape Gardener Name | Role | Phone | + +------+ + | Jesus Mijares MD | PCP | | + +------+ + Encounter Details +--------+ + + + + | Date | Type | Department | Care Team | Description | +--------+ + + + + | 06/11/ | Hospital | [facility] | [place], | Bursitis, hip, right | | 2016 | Encounter | [facility] [address] | [address] | (Primary Dx); | | | | [place] | [facility], | Spinal stenosis of | | | | [place] [address] | [place] [address] | lumbar region - | | | | [phone] | [phone] | 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 | [address] | [address] | [phone] | | [facility] | | [address] | | | - IMAGING | | [...] Injection on Right Diagnosis: Lumbar | [facility] | | radiculopathy and Trochanteric bursitis ICD-10 Codes M54.16 and | [facility] | | M70.61 Rebecca Chanell Castillo [...] + + | Performing | Address | City/State[facility] | Phone Number | | Organization | | | | + + + + + | [facility] | [address] | [place] | [phone] | | [facility] | | [address] | | | - IMAGING | | [...]
--- OUTSIDE RECORDS SUMMARY | ~2019-10-18 | XMS | Encounter Summary ---
Demographics + + + | Address | [address] | | | [place] [address] | + + + | Home Phone [...] Team Providers + +------+ + | Care Jira Developer Name | Role | Phone | + +------+ + | Jesus Mijares MD | PCP | | + +------+ + Encounter Details +--------+ + + + + | Date | Type | Department | Care Team | Description | +--------+ + + + + | 08/07/ | Hospital | [facility] | Yong Pena | | | 2012 - | Encounter | [facility] | MD [address] | | | | | [address] | [address] | | | 08/10/ | | [place], [place] | [place] [address] | | | 2012 | | [address] | [phone] | | | | | [phone] | | | +--------+ + + + [...] documented as of this encounter Discharge Summaries Renetta Ortega NP - 08/10/2013 12:53 PM PDT Discharge Summaries by Manasa Ortega ARNP at 08/10/13 9771 Author: Manasa Ortega ARNP Service: (none) Author Type: Nurse Practitioner Filed: 08/10/13 2714 Date of Service: 08/10/131252 Status: Signed Hand Endband Cutter: Manasa Ortega ARNP (Nurse Practitioner) Cosigner: Yong Pena MD at 0842 Neurosurgery Discharge Summary Note Patient: Rebecca Castillo Admission Date: 08/07/2013 5:10 AM Discharge Date: 08/10/2013 10:05 AM Significant Providers: Yong Pena Principal Diagnosis: 1. L4-5 stenosis 2. L4-5 spondylolisthesis Secondary Diagnoses: Active Ambulatory Problems Diagnosis Date Noted No Active Ambulatory Problems Discharge Medications: Discharge Medication List as of 08/10/2013 6:37 AM START taking these medications Details docusate (AKA COLACE) 250 mg Oral Cap Take 1 Cap by mouth twice a day.Disp-80 Cap, R-0, No rmal HYDROcodone-acetaminophen (AKA NORCO) 5-325 mg Oral Tab Take 2 Tabs by mouth every six shiavm rs.Disp-90 Tab, R-0, Normal oxyCODONE, Immediate release, (AKA ROXICODONE) 5 mg Oral Tab Take 1-3 Tabs by mouth every three hours as needed for Pain (For breakthrough pain only).Disp-90 Tab, R-0, Normal polyethylene glycol (AKA MIRALAX) 17 gram Oral PwPk Take 17 g by mouth every day.Disp-24 P acket, R-0, Normal Sennosides 17.2 mg Oral Tab Take 1 Tab by mouth daily at bedtime.Disp-80 Tab, R-0, Normal CONTINUE these medications which have CHANGED Details !! cyclobenzaprine (AKA FLEXERIL) 10 mg Oral Tab Take 1 Tab by mouth three times a day.Dis p-80 Tab, R-0, Normal !! - Potential duplicate medications found. Please discuss with provider. CONTINUE these medications which have NOT CHANGED Details DIGOXIN (DIGITEK ORAL) Take 0.25 mg by mouth every morning.Historical Med metFORMIN (AKA GLUCOPHAGE) 850 mg Oral Tab Take 850 mg by mouth twice a day.850 mg, BID, U ntil Discontinued, Oral, Historical Med Acebutolol 200 mg Oral Cap Take 200 mg by mouth three times a day.200 mg, TID, Until Disco ntinued, Oral, Historical Med amitriptyline (AKA ELAVIL) 25 mg Oral Tab Take 25 mg by mouth daily at bedtime.25 mg, HS, Until Discontinued, Oral, Historical Med glimepiride (AKA AMARYL) 4 mg Oral Tab Take 4 mg by mouth twice a day.4 mg, BID, Until Dis continued, Oral, Historical Med hydrochlorothiazide (AKA HYDRODIURIL) 12.5 mg Oral Cap Take 12.5 mg by mouth every morning .Historical Med !! cyclobenzaprine (AKA FLEXERIL) 10 mg Oral Tab Take 20 mg by mouth daily at bedtime.Hist orical Med lisinopril (AKA PRINIVIL) 40 mg Oral Tab Take 40 mg by mouth twice a day.Historical Med insulin glargine 100 unit/mL Soln 10 Units 40 Units by Subcutaneous route every morning.Hi storical Med EZETIMIBE/SIMVASTATIN (VYTORIN 10-40 ORAL) Take by mouth every day in the evening.Histori carlos Med Calcium-Cholecalciferol, D3, 250-125 mg-unit Oral Tab Take 2 Tabs by mouth daily at bedtim e. Calcium 600mg, Vitamin D 800mgHistorical Med acetaminophen (AKA TYLENOL) 325 mg Oral Tab Take 325 mg by mouth as needed.325 mg, PRN, Un til Discontinued, Oral, Historical Med Methylsulfonylmethane (MSM) 1,000 mg Oral Tab Take by mouth every day.DAILY, Until Discon tinued, Oral, Historical Med !! - Potential duplicate medications found. Please discuss with provider. STOP taking these medications HYDROcodone-acetaminophen (AKA NORCO) 10-325 mg Oral Tab Comments: Reason for Stopping: Allergies: Allergies Allergen Reactions Penicillins Rash and Swelling Sulfur Other (Comment) Water retention Procedures/Significant Test Results: 08/07/2013 1. L4-5 fusion 2. L4-5 posterior segmental instrumentation 3. L4, L5 laminectomy with lateral recess decompression 4. L4-5 interbody fusion 5. L4-5 interbody cage Consults: none Hospital Course: Ms. Castillo is a 73 year old female who presented to [facility] on 08/07/2013 for a L4-5 interbody fusion with cage placement, L4-5 posterior fusion with segmental instrumentat ion, and L4, L5 laminectomy with lateral recess decompression. Post-operatively, the patien conchis was transferred to for continued monitoring. She did well overnight with pain initiall y managed with a SURVEYOR CHAIN HELPER, but was weaned to an oral pain regimen with good control by discharge. Her hemovac drain was discontinued on POD 1 without complication. Ms. Castillo worked with P T/OT while inpatient and was cleared for discharge home on POD 3. She was voiding without d ifficulty, had a BM while inpatient, and was tolerating her meals without nausea. Her incis ion was intact with no drainage or swelling noted. Discharge instructions were covered in d etail including the importance of continuing the bowel medications while taking the pain med ications, activity restrictions, weight restrictions (nothing greater than 5-10 pounds for o ne months), showering, but not submerging the incision, and follow-up recommendations. She had no neurologic deficits at discharge and all questions were addressed prior to her leavin g. Diet: Regular Activity: As tolerated Instructions/Follow-up: Discharge Instructions 1. Call [facility] office with any questions or concerns at [phone] (RN line ). 2. Sutures should come out post operative day [address] Pena's preference you re turn to his clinic for their removal. Please call [phone] to schedule appointment to h ave these removed. If your incision is closed with steri-strips, [facility]. If they remain in [...] of infection, call the Nurse line at [phone]. 6. Follow up with your primary care physician as needed or as per next scheduled appointmen t. 7. Follow up at Dr. Pena's office in 6 weeks. Call to schedule appointment at [phone]. Imaging studies will be obtained at follow up. 8. For after hours emergencies, contact: soni Wilkerson [phone] robert Daniels [phone] Activity & Medications 1. Your activity will [...] Concerns please call your Physicians Office at: [phone] Preventing Infection As you recover from surgery we want you to heal and recover without added worry or problems . You may have heard of, or know someone, who had surgery and later went back to the [facility] because of an infection. These infections can [...] greater than 30 minutes: 55 total minutes Erica OrtegaNICOLLE 08/10/2013, 12:53 Administrative Data: CPT [id number]-avtszle than 30 min (Time spent: 55) CC: Jesus Mijares documente heather in this encounter Medications at Time of [...] Progress Notes Conversion Transaction, Provider Unknown - 08/10/2013 8:54 AM PDTFormatting of this note m ight be different from the original. Progress Notes by Priscila Prado PT at 08/10/13853 Author: Priscila Prado PT Service: (none) Author Type: Physical Therapist Filed: 08/10/1358 Date of Service: 08/10/13853 Status: Signed Hand Endband Cutter: Priscila Prado PT (Physical Therapist) PHYSICAL THERAPY INTERVENTION/DAILY NOTE: MED/SURG Duration of Session Time In: 824 Time Out: 0850 Precautions: Cleared for OOB: Yes Fall Spinal Surgery Precautions: General spine surgery Patient Comments: Yes, we will take rest breaks on the way home. FUNCTIONAL STATUS/INTERVENTIONS ACTIVITY LEVEL OF ASSIST COMMENT/INTERVENTION Bed Mobility Min A Mod A Supine --> sit Sit --> supine, assistance with elevating BLE Transfers SBA Sit <> stand, extra time needed Gait/Mobility SBA With FWW, x 60', slow zhou, extra time needed Stairs ROM/Therapeutic Exercise: PT provided spinal education handout, reviewed precautions and sa fety at home; provided instructions for managing car ride home. Pt and verbalized un derstanding. ASSESSMENT Pain Assessment during therapy session Location of pain: 10 pre activity, 10 post ambulation, Progress/Response to Therapy: Pt requiring extra time to complete functional tasks 2' to pa in. Poor strength in LE, currently relies heavily on BUE for assistance. Pt would continue t o benefit from use of FWW for postural support, balance and pain management when performing standing tasks to ensure safety. Barriers to Discharge: impaired strength, impaired endurance, pain Discharge recommendations: Home with , HHPT PLAN Frequency: Treat 5 times per week Plan for Next Visit: progressive gait, TE's, TA's, stairs Lakesha Melvin RN - 08/10/2013 6:49 AM PDT Progress Notes by Lakesha Melendez at 08/10/13648 Author: Lakesha Melendez Service: (none) Author Type: Registered Nurse Filed: 08/10/1351 Date of Service: 08/10/13648 Status: Signed Hand Endband Cutter: Lakesha Melendez (Registered Nurse) NSG Progress Note Brief Patient: Rebecca Castillo Discharge orders received. Scripts faxed to outpatient [facility] pharmacy to be p icked up after pharmacy opens at 0900. Hard copies given to pt's . Discharge instruct ions given and reviewed with pt and her . No questions at this time. Lakesha Melendez, 08/10/2013 6:49 AM Renetta Marks NP - 08/10/2013 4:50 AM PDT Progress Notes by Manasa Ortega ARNP at 08/10/13449 Author: Manasa Ortega ARNP Service: (none) Author Type: Nurse Practitioner Filed: 08/10/13 0816 Date of Service: 08/10/13449 Status: Signed Hand Endband Cutter: Manasa Ortega ARNP (Nurse Practitioner) Neurosurgery Progress Note ID: Rebecca Castillo; 73 y.o. female Location: [id number] Attending Yong Pena MD Hospital Day # 3 PCP Jesus Mijares Procedure: 1. L4-5 posterolateral fusion. 2. L4-5 posterior segmental instrumentation with the Jennifer Edda instrumentation system. 3. L4-5 laminectomy with lateral recess decompression. 4. L4-5 interbody fusion. 5. L4-5 interbody cage. Post Operative Day # 3 Subjective Ms. Castillo reports good pain control, stating she is feeling quite good at this time. Denie s any difficulty with voiding or ambulation. Eating well without nausea/vomiting. Objective VS: Blood pressure 119/52, temperature 37.6 C (99.6 F), resp. rate 18, height 162.6 cm (5' 4"), weight 104.327 kg (230 lb), SpO2 95.00%.Temp (24hrs), Av.1 C (98.7 F), Min :36.4 C (97.5 F), Max:37.7 C (99.8 F) I/O: Intake/Output Summary (Last 24 hours) at 08/10/13 0450 Last data filed at 08/10/13 0000 Gross per 24 hour Intake 1070 ml Output 30 ml Net 1040 ml General: healthy, alert and in no distress Neuro: Awake, alert and oriented x 3; Cranial nerves II-XII grossly intact; Reflexes symmet rical; Motor intact with BUE and BLE 5/5; Sensation intact to soft touch. Wound: clean and dry, sutures / scotty in place, dressing in place Labs: Lab results (within last 13 months/9480 hours) Basename 08/08/13 1220 WBC 10.9* HGB 11.8 HGBPOC -- HCT 34.0 HCTPOC -- PLT 251 NA 135 NAPOC -- K 4.4 KPOC -- CL 99 CLPOC -- HCO3 -- [id number] -- BUN 16 BUNPOC -- CR 0.97 GLUC 227* GLUCPOC -- No results found for this basename: INR,PT,PTT in the last 9480 hoursNo results found for t his basename: DPHTOTAL in the last 9480 hours Assessment/Plan: 1. S/P L4-5 posterolateral fusion, L4-5 posterior segmental instrumentation with the [employer] Edda instrumentation system, L4-5 laminectomy with lateral recess decompression, L4-5 inter body fusion, and L4-5 interbody cage. - Dressing changed - PT/OT while inpatient - OOB with meals & Ambulate TID - Continue bowel medications - Push IS - 10x hourly while awake 2. Pain - Continue current oral regimen with scheduled [place] and oxycodone for breakthrough 3. DVT prophylaxis - Continue SQ heparin while inpatient 4. Discharge planning - DC home this am - Ok for sutures to be removed by PCP - Follow-up in six weeks NICOLLE Gamble 04:50; 08/10/2013 Lakesha Shipman RN - 08/10/2013 3:38 AM PDTFormatting of this note might be different from the andres fortino. Progress Notes by Lakesha Melendez at 08/10/13337 Author: Lakesha Melendez Service: (none) Author Type: Registered Nurse Filed: 08/10/13 0537 Date of Service: 08/10/13337 Status: Signed Hand Endband Cutter: Lakesha Melendez (Registered Nurse) [facility] Progress Note Brief Patient: Rebecca Castillo Alert and oriented overnight. Continues to have baseline upper extremity tremor and chronic peripheral neuropathy to bilateral lower extremities. Per pt the tremor began 6 months ago spontaneously, her PCP is aware. Tremor is worse during stressful times or times of pain. Am bulating with one staff assistance and her four wheel walker from home. Pain controlled with scheduled norco and intermittent oxycodone in between doses. Will continue to monitor. Pt's last home dose of acebutolol was administered at HS. Pt has a refill at her home in [place]. After discharge (plan to be discharged today) she is not sure if she will be driving h ome or staying somewhere closer in the area. Either way she will need at least one dose to f juanjod at the [facility] if possible. Will endorse to day shift RN. Lakesha Melendez, 08/10/2013 5:37 AM Mary Gambino RN - 08/09/2013 6:07 PM PDT Progress Notes by Mary Stiles RN at 08/09/131806 Author: Mary Stiles RN Service: (none) Author Type: Registered Nurse Filed: 08/09/13 1950 Date of Service: 08/09/131806 Status: Signed Hand Endband Cutter: Mary Stiles RN (Registered Nurse) [facility] Progress Note Brief Patient: Rebecca Castillo Pt got OOB without calling for assistance; reinforced importance of calling, pt has poor sa fety awareness about this, bed alarm placed. Hemovac drain came apart when pt ambulated to B R without assistance; provider aware, betadine swabbed line, wrapped in gauze, removed by pr ovider. Pain 4-6/10, oxycodone given for breakthrough pain, up to 8/10 with mobility - needs reinforcement of spinal precautions. Pt up in chair for meals and ambulated in hallway with 1PA and FWW. Will continue to monitor. Mary Stiles RN, 08/09/2013 6:07 PM cRosie Isaac LICSW - 08/09/2013 12:32 PM PDT Progress Notes by Rosie Terrazas LICSW at 08/09/13 1232 Author: Rosie Terrazas LICSW Service: (none) Author Type: Convertible Power Shovel Operator Filed: 08/09/13 1320 Date of Service: 08/09/13 1232 Status: Signed Hand Endband Cutter: Rosie Terrazas LICSW (Convertible Power Shovel Operator) Case Management Discharge Planning Assessment 12:32; 08/09/2013 Patient Rebecca Castillo is a 73 y.o. female admitted for Acquired spondylolisthesis [738.4] (Acquired spondylolisthesis ) Discussion: SPECIAL EDUCATION PARAPROFESSIONAL reviewed current and historical charts. SPECIAL EDUCATION PARAPROFESSIONAL met with patient and patient's spouse Bill at bedside. Patient alert and engaged, sitting up in bedside chair. Patient r eports she and her spouse reside in [place], reports daughter and grandchild also live in the home. Patient reports at discharge the plan is to return to [place]. Patient reports prior to admission received assistance from family with activities of daily living. Patient repor ts she uses a 4WW. Patient's reports he has been staying at the [facility] and is waiting to hear if there will be room for him to continue to stay. Discussed option of staying in patient's room. Patient reports the RN has discussed this with them. Patient's spouse reports he would prefer his own room has he uses a CPAP at night and does several neb ulizer treatments throughout the day. Patient reports no other needs/concerns at this time however understands SPECIAL EDUCATION PARAPROFESSIONAL remains available as needed. Discharge Planning Options Home Plan: TBD: Likely Home Resources/Education provided: SPECIAL EDUCATION PARAPROFESSIONAL introduced role and how to access SPECIAL EDUCATION PARAPROFESSIONAL/CM during hospital visit. Interventions: Case Mgmt Team Interventions: Care coordination;Chart review/screening;[facility]ult [facility] are team;D/C planning initial assessment Diagnosis: Acquired spondylolisthesis [738.4] (Acquired spondylolisthesis ) Co-Morbidity/Complications: Past Medical History Diagnosis Date Coronary artery disease High blood pressure A-fib Type II or unspecified type diabetes mellitus without mention of complication, not stat ed as uncontrolled Generalized osteoarthrosis, unspecified site Surgery/Procedures: Procedure(s): FUSION SPINE LUMBAR POSTERIOR Past Surgical History Procedure Date Appendectomy Tonsillectomy Hysterectomy Ugi endoscopy stent placement Upper GI endoscopy for acid reflux Other gastroenterology esophageal "wrapping" for GERD Abdomen surgery rina Advance Directive Information Advance Directive?: None Advance Directive Offered: AD Booklet refused Is this a readmission?: No Pre-Admit Baseline : Lives with: spouse, daughter and grandchild Receives help from: family Current Providers/Agencies: none Vision Impairment: Corrects with Glasses or Contacts Hearing Impairment: Moderate but no adjunct used Prior to admit, the patient was: Living at home with others Mobility prior to admit: Modified Independent DME and/or supplies at residence BIOINFORMATICIST: Cane or walker (comment) (4WW) PCP: Confirmed with patient/manufacturer's representative Jesus Mijares Principle Payors: Confirmed with patient/manufacturer's representative Payor: MEDICARE Plan: MEDICARE PART A AND B Product Type: *No Product type* Primary Contact Information: Extended Emergency Contact Information Primary Emergency Contact: Oniel Castillo Address: [address] [place] [address] [place] Relation: Spouse Secondary Emergency Contact: Selby,[facility] [place] Relation: Daughter Patient is being followed by Case Management APRIL Edouard, LSWAIC de Nya Kwan ARNP - 08/09/2013 11:05 AM PDTFormatting of this note might be different from th e original. Progress Notes by Nya Gauthier ARNP at 08/09/131104 Author: Nya Gauthier ARNP Service: (none) Author Type: Nurse Practitioner Filed: 08/09/13 1112 Date of Service: 08/09/131104 Status: Signed Hand Endband Cutter: Nya Gauthier ARNP (Nurse Practitioner) NSR Progress Note ID: Rebecca Castillo; 73 y.o. female [facility] Attending Yong Pena MD Hospital Day # 2 PCP Jesus Mijares Procedure: 1. L4-5 fusion 2. L4-5 posterior segmental instrumentation 3. L4, L5 laminectomy with lateral recess decompression 4. L4-5 interbody fusion 5. L4-5 interbody cage Post Operative Day # 2 Subjective Ms. Castillo has no complaints and no overnight events. Bilateral lower extremity pain improve d post operatively. Adequate pain control. Voiding well. BM today. Eating 3 meals. Spec ifically denies shortness of breath, chest pain, abdominal pain, pain or weakness in extremi ties. Drain tubing broke apart this am. Objective VS: Blood pressure 126/59, temperature 36.4 C (97.5 F), resp. rate 18, height 162.6 cm (5' 4"), weight 104.327 kg (230 lb), SpO2 97.00%.Temp (24hrs), Av.1 C (98.8 F), Min :36.4 C (97.5 F), Max:37.9 C (100.2 F) I/O: Intake/Output Summary (Last 24 hours) at 08/09/13 110 Last data filed at 08/09/13 1041 Gross per 24 hour Intake 1380 ml Output 65 ml Net 1315 ml General/Constitutional: Patient is awake and in NAD. Tremors at baseline. Neuro: Patient is AO x3. CN II-XI are grossly intact. Sensation is intact to light touch in BLE. Strength is 5/5 in all 4 extremities throughout. Skin/Wound: Skin is without erythema and is intact. The incision is clean, dry and intact. Acticoat CDI, drain tubing broken. Labs: Lab results (within last 13 months/9480 hours) Basename 08/08/13 1220 WBC 10.9* HGB 11.8 HGBPOC -- HCT 34.0 HCTPOC -- PLT 251 NA 135 NAPOC -- K 4.4 KPOC -- CL 99 CLPOC -- HCO3 -- [id number] -- BUN 16 BUNPOC -- CR 0.97 GLUC 227* GLUCPOC -- No results found for this basename: INR,PT,PTT in the last 9480 hoursNo results found for t his basename: DPHTOTAL in the last 9480 hours Studies: Assessment/Plan 1. The patient is status post L4-L5 fusion and decompression, now postop day 2. They are st able and progressing. PT/OT, OOB with meals, ambulate TID DVT Prophylaxis: heparin sq, SCDs Bowel care: docusate and senna, suppository prn Pain management: weaned off SURVEYOR CHAIN HELPER. Scheduled [place]. Oxycodone and Flexeril PRN 2. Drain with 35/24hours. Removed without complication. 3. Labs stable. 4. DM: Diabetic diet Resume 1/2 dose of glargine today and full dose tomorrow. Resume glimepiride today and metformin as an outpatient. Cont SSI. 5. Disposition: home tomorrow after further progress with therapies. NICOLLE Hernandez 08/09/2013 11:05 7AM to 7PM reach me via [employer] 7PM to 7AM covered via [facility] Gasket Inspector/Nsg Fellow Lakesha Shipman RN - 08/09/2013 4:01 AM PDTFormatting of this note might be different from the andres ginal. Progress Notes by Lakesha Melendez at 08/09/13400 Author: Lakesha Melendez Service: (none) Author Type: Registered Nurse Filed: 08/09/13 0551 Date of Service: 08/09/13400 Status: Signed Hand Endband Cutter: Lakesha Melendez (Registered Nurse) [facility] Progress Note Brief Patient: Rebecca Castillo Pt alert and oriented overnight. Continues to have baseline tremor, most noticeably to bila teral upper extremities. Also continues to have chronic peripheral neuropathy in bilateral l ower extremities r/t diabetes. Pain controlled with scheduled norco and intermittent PRN oxy codone. Ambulating with one staff assistance and her walker from home. Will continue to [facility]. Lakesha Melendez, 08/09/2013 5:51 AM Mary Gambino RN - 08/08/2013 4:48 PM PDT Progress Notes by Mary Stiles RN at 08/08/131647 Author: Mary Stiles RN Service: (none) Author Type: Registered Nurse Filed: 08/08/131928 Date of Service: 08/08/131647 Status: Signed Hand Endband Cutter: Mary Stiles RN (Registered Nurse) [facility] Progress Note Brief Patient: Rebecca Castillo Pt neuro stable this shift; continued baseline tremors in hands and transient numbness/ting ling in BLE. IV infiltration of vanco, infusion stopped, LINE PRODUCER notified, wydase administered , ice packs every six hours. Site red, swelling improved, no pain per pt. Pt c/o 8/10 pain w ith movement; controlled with available pain medications, 2-6/10 upon reassessment. Tmax 100 .2F this shift, encouraged deep breathing and use of IS. Ambulating to BRP and in room with 1PA and FWW. Elevated blood sugars, lantus added, pt waiting for dinner. Reinforced necessit y to call for assistance due to safety precautions with pt and at bedside. Will cont inue to monitor. Mary Stiles RN, 08/08/2013 4:48 PM de Batool Villanueva ARNP - 08/08/2013 11:37 AM PDTFormatting of this note might be different from the orig inal. Progress Notes by Nya Gauthier ARNP at 08/08/13 113 Author: Nya Gauthier ARNP Service: (none) Author Type: Nurse Practitioner Filed: 08/08/13 5557 Date of Service: 08/08/131136 Status: Addendum Hand Endband Cutter: Nya Gauthier ARNP (Nurse Practitioner) Related Notes: Original Note by Nya Gauthier ARNP (Nurse Practitioner) filed at 08/08 1504 NSR Progress Note ID: Rebecca Castillo; 73 y.o. female [facility] Attending Yong Pena MD Hospital Day # 1 PCP Jesus Mijares Procedure: 1. L4-5 fusion 2. L4-5 posterior segmental instrumentation 3. L4, L5 laminectomy with lateral recess decompression 4. L4-5 interbody fusion 5. L4-5 interbody cage Post Operative Day # 1 Subjective Ms. Castillo reports bilateral lower extremity pain improved post operatively. Up in chair an d working with therapies this morning. Moderate pain control - weaned off SURVEYOR CHAIN HELPER. Specificall y denies shortness of breath, chest pain, some abdominal pain because she "needs to have a b owel movement". Objective VS: Blood pressure 137/67, temperature 37.2 C (98.9 F), resp. rate 18, height 162.6 cm (5' 4"), weight 104.327 kg (230 lb), SpO2 96.00%.Temp (24hrs), Av.7 C (98.1 F), Min :36.4 C (97.5 F), Max:37.2 C (98.9 F) I/O: Intake/Output Summary (Last 24 hours) at 08/08/13 113 Last data filed at 08/08/13 0916 Gross per 24 hour Intake 2240 ml Output 1600 ml Net 640 ml General/Constitutional: Patient is awake and in NAD. Tremors at baseline. Neuro: Patient is AO x3. CN II-XI are grossly intact. Sensation is intact to light touch in BLE. Strength is 5/5 in all 4 extremities throughout. Skin/Wound: Skin is without erythema and is intact. The incision is clean, dry and intact. Acticoat and hemovac drain in place. Labs: Lab results (within last 13 months/9480 hours) Basename 08/07/13 1935 WBC -- HGB -- HGBPOC -- HCT -- HCTPOC -- PLT -- NA -- NAPOC -- K -- KPOC -- CL -- CLPOC -- HCO3 -- XUT3OEW -- BUN -- BUNPOC -- CR 1.07* GLUC -- GLUCPOC -- No results found for this basename: INR,PT,PTT in the last 9480 hoursNo results found for t his basename: DPHTOTAL in the last 9480 hours Studies: Assessment/Plan 1. The patient is status post L4-L5 fusion and decompression, now postop day 1. They are st able and progressing. PT/OT, OOB with meals, ambulate TID DVT Prophylaxis: heparin sq to start at 1400, SCDs Bowel care: docusate and senna Yung out, monitor PVRs Pain management: weaned off SURVEYOR CHAIN HELPER. Scheduled [place]. Oxycodone and Flexeril PRN 2. Drain with 150cc overnight. Remove tomorrow. 3. Check labs: BMP, CBC 4. DM: Diabetic diet Hold glargine and oral hypoglycemics. Well controlled on SSI 5. Disposition: ELOS 2-3d NICOLLE Hernandez 08/08/2013 11:37 7AM to 7PM reach me via [employer] 7PM to 7AM covered via [facility] Gasket Inspector/Nsg Fellow Patient (Rebecca Castillo) meets inpatient level of care because I expect the patient to be in the hospital, including time spent in outpatient setting, for 2-3 midnights. I certify an order Admit to Inpatient has been entered. Patient will be treated for the diagnosis of Acquired spondylolisthesis [738.4] (Acquired s pondylolisthesis ). Patient will need IV fluids, IV antibiotics, IV pain medications and lumbar fusion surgery. I anticipate the patient to be discharged to home. Services provided in accordance of section 42 [place]R. 412.3. onversio n Transaction, Provider Unknown - 08/08/2013 10:17 AM PDTFormatting of this note might be di fferent from the original. Progress Notes by Alyson Coto OT at 08/08/13 1017 Author: Alyson Coto OT Service: (none) Author Type: Occupational Therapist Filed: 08/08/13 1032 Date of Service: 08/08/13 1017 Status: Signed Hand Endband Cutter: Alyson Coto OT (Occupational Therapist) OCCUPATIONAL THERAPY EVALUATION Duration of Session Time In:944 Time Out: 102 PATIENT PROFILE Diagnosis: Acquired spondylolisthesis [738.4] (Acquired spondylolisthesis ) Surgery/Procedure: Procedure(s) with comments: FUSION SPINE LUMBAR POSTERIOR - 28338/[id number]/[id number]/81634 L4-5 POSTERIOR FUSION W/ JENNIFER XI A 4.5mm & AVS Unilif PEEK Cage, (Prone on WENDY, SSEP/MEP/EMG MONITORING, C-ARM) Surgery Date: 08/07 Precautions: Cleared for OOB: Yes Spinal Surgery Precautions: General spine surgery SOCIAL HISTORY Living Environment: Lives in [facility] in house [place] with 2 steps to enter with h usband , daughter and grandson who are all available to assist as needed Prior Level of Functioning: pt with Modified [place] in own self care but unable to do do housework, furniture walked in house used 4WW outside and in community Current Adaptive Equipment: cane, 4WW, shower chair , handicap toilet Patient Comment:I always have a tremor but I am more shaky after the surgery Patient Goal: go home EXAMINATION Cognitive Function Alertness: awake Behavior: pleasant and cooperative,painful Orientation: intact Safety Awareness/Problem Solving: appears adequate Verbal/Motor Response to Commands: appears adequate Visual/Perceptual: glasses Upper Extremity Function Range of Motion: functional Motor Control/Tone: functional Coordination: impaired due to increased tremor in UE Sensation: intact Edema: ACTIVITY RESPONSE Position or Activity following toielting BP HR Sp02 RA 95% FUNCTIONAL STATUS ACTIVITIES OF DAILY LIVING LEVEL OF ASSIST COMMENT Self Feeding Minimal Assist For set up and tremor able to feed self but poor quality Grooming Minimal Assist Standing at sink to wash dentures, tremor in hands needing assist with details, limited standing tolerance at sink Bathing Has walk in shower with shower chair Dressing Bed mobility Minimal Assist Moderate Assist Supine to sit takes cue and time for log rolling Sit to supine assist with positioning and assist with LE back on to bed Toileting Minimal Assist Ambulated bed to toilet with FWW and CGA and assist with IV lines , BSC over toilet sit to stand with SBA able to complete pericare ,has high toilet at home Functional Transfers Minimal Assist Moves slow Higher Living Skills Reviewed all precautions, positioning and better breathing Today's Treatment: Evaluation, toileting and grooming at sink ASSESSMENT Pain Assessment during therapy session Patient c/o pain initially 4 following activity 6 Location of pain: incisional Pain therapy interventions used: Nursing staff notified, deep breathing and relaxation and repositioning and elevation Impairments/Functional Limitation: Patient presents with decreased ADL and functional mobi lity skills due to sternal precautions and post-op deconditioning. Pt has history of UE trem or reports it has increased following surgery. It is difficulty to perform fine motor task a s brushing teeth and self feeding. Pt moving slow. Patient will benefit from 1:1 skilled OT to maximize functional independence. Discharge recommendations:home with family support once able to tolerate more activity, has a long ride home PLAN OF CARE Interventions: ADL's, precautions Frequency: Treat 5 times per week OCCUPATIONAL THERAPY GOAL(S) By discharge patient will perform the following: SELF-FEEDING: Complete independence GROOMING: Modified independence UPPER BODY DRESSING: Modified independence LOWER BODY DRESSING: Minimal assistance BATHING: Supervision TOILETING: Modified independence Plan for next visit: OOB self care and precautions instructions OT/CHASE order assistive devices prn Risks and benefits of treatment reviewed with patient/family and they agree with plan of ca re: Yes Natacha Dexter RN - 08/08/2013 7:56 AM PDT Progress Notes by Natacha Bob RN at 08/08/13755 Author: Natacha Bob RN Service: (none) Author Type: Registered Nurse Filed: 08/08/13 9403 Date of Service: 10/26/13 0756 Status: Signed Hand Endband Cutter: Natacha Bob RN (Registered Nurse) Problem: PAIN - ADULT Goal: Verbalizes/displays adequate comfort level or baseline comfort level Outcome: PROGRESSING EXPECTED Off SURVEYOR CHAIN HELPER Dilaudidn, used total of 1.4 mg. Adequate pain relief with scheduled [place] and PRN oxycodone. Problem: NEUROSENSORY - ADULT Goal: Achieves stable or improved neurological status Outcome: PROGRESSING EXPECTED No neuro changes noted. With baseline tremors to both hands Problem: SKIN/TISSUE INTEGRITY - ADULT Goal: Incision(s), wounds(s) or drain site(s) healing without S/S of infection Outcome: PROGRESSING EXPECTED Acticoat dressing to back intact. Hemovac with 60 cc bloody drainage,Afebrile. onversion Transac tion, Provider Unknown - 08/07/2013 7:38 PM PDTFormatting of this note might be different f rom the original. Progress Notes by Parviz Plata RN at 08/07/131937 Author: Parviz Plata RN Service: (none) Author Type: Registered Nurse Filed: 08/07/131950 Date of Service: 08/07/131937 Status: Signed Hand Endband Cutter: Parviz Plata RN (Registered Nurse) NSG Arrival Note Patient: Rebecca Castillo Arrival time: 1350 From: PACU to room 505E. Belongings verified with the patient: Last VS: Temp: 36.5 C (97.7 F), BP: 139/81 mmHg, Heart Rate: 56 , Resp: 16 , SpO2: 97 %, O2 Liter Flow (1L or More): 2L/min, Weight: 104.327 kg (230 lb). Admission Wt:104.327 kg (230 lb) Skin intact: No - lumbar surgical incision with silver impregnated dressing PU Prevention Specialty Bed: In use Time of last pain med: Lines and drains: pivx2-right and left hand, hemovac drain, yung catheter Current IV: normal saline at tko Current nursing problems: Post op(L4-5 fusion, laminectomy) Patient orientation: to call light to telephone and television to general hospital information to plan for the day -"Bill" at bedside. A/OX4. Moving all extremities well, denies any sensory deficits. Rates back pain at 3/10 a t this time- instructed on use of SURVEYOR CHAIN HELPER(Dilaudid). Taking sips and chips. Denies nausea. Parviz Plata RN, 08/07/2013 7:38 PM onver [place] Transaction, Provider Unknown - 08/07/2013 5:35 PM PDT Progress Notes by Priscila Prado PT at 08/07/131734 Author: Priscila Prado PT Service: (none) Author Type: Physical Therapist Filed: 08/07/131742 Date of Service: 08/07/131734 Status: Signed Hand Endband Cutter: Priscila Prado PT (Physical Therapist) PHYSICAL THERAPY MED/SURG EVALUATION Duration of Session Time In: 1700 Time Out: 1730 PATIENT PROFILE Diagnosis: Acquired spondylolisthesis [738.4] (Acquired spondylolisthesis ) Surgery/Procedure: Procedure(s) with comments: FUSION SPINE LUMBAR POSTERIOR - [id number]/[id number]/41728 L4-5 POSTERIOR FUSION W/ JENNIFER XI A 4.5mm & AVS Unilif PEEK Cage, (Prone on WENDY, SSEP/MEP/EMG MONITORING, C-ARM) Surgery Date: 08/07/13 Precautions: Cleared for OOB: Yes Fall Spinal Surgery Precautions: General spine surgery SOCIAL HISTORY Living Environment: pt lives with , daughter and grandson in a one story house with 2 steps to enter, railing available. will be available to assist if needed. Prior Level of Functioning: pt was mod I with all BADL's, was using SPC for ambulation shor t distance, and FWW for long distances. Pt utilizes a shopping cart for support when grocery shopping. Current Adaptive Equipment: SPC, FWW Patient Comment: I don't know if I want to do this right now. Patient Goal: to eat and rest EXAMINATION Range of Motion: BUE/BLE AROM grossly WFL Strength: B hip flexion/knee extension at least 3/5, no resistance applied 2' to pain; DF/P F 3+/5 Sensation: intact to light touch in BLE Skin/Edema: incision covered by bandage, hemovac intact Coordination: NT Balance: static sitting = F Cognition: A and O x 4 ACTIVITY RESPONSE Position or Activity Supine sitting BP 147/73 129/83 HR 56 60 Sp02 Pt reporting "wooziness" upon sitting FUNCTIONAL STATUS ACTIVITY LEVEL OF ASSIST COMMENT Bed Mobility Max A Supine --> sit, pt asking for assistance to pull self up, unable to perf orm log rolling Transfers Dangled at bedside x 5 minutes, pt then requesting to lie back down 2' to pain a nd fatigue Gait/Mobility Did not perform Stairs Today's Treatment: EVAL, PT provided education on spinal precautions, Pt verbalized unders tanding. ASSESSMENT Pain Assessment during therapy session Location of pain: 02/20 - pt indep with use of SURVEYOR CHAIN HELPER. Impairments/Functional Limitation: Post op day #0. Pt with poor tolerance to upright, limi jodi mobility at this time 2' to pain and fatigue. Will continue to assess. Discharge recommendation: anticipate home with family, may need HHPT - will continue to ass ess PLAN OF CARE Intervention: Assistive Device, Balance Re-education, Bed Mobility, Energy Conservation/Pac ing, Gait, Home Exercise Program, Neuromuscular Re-education, Patient/Caregiver Training, Tr brittanie, Therapeutic Exercise Frequency: Treat 5 times per week PHYSICAL THERAPY GOAL(S) By discharge patient will perform the following: BED MOBILITY: Supervision FUNCTIONAL TRANSFERS: Supervision using front wheel walker GAIT: 300 feet with Supervision using front wheel walker STAIRS: 4, using 1 railing(s) with Minimal assistance without assistive device Plan for next visit: Assess gait, standing balance PT/BIOINFORMATICIST order assistive devices prn Risks and benefits of treatment reviewed with patient/family and they agree with plan of ca re: Yes docume nted in this encounter Plan of [...] | | | | | | [place] [address] | | | | | | [phone] | | | | | | | [...] | + +--------+ + + + | ARIA Pride ARM | Routin | 08/07/2013 | | Results for this | | | e | 11:54 AM | | procedure are in the | | | | PDT | | results section. | + +--------+ + + + documented in this encounter Results ARIA Brownlee (08/07/2013 11:54 AM PDT) + + | Specimen | + + | | + + + + + | Narrative | Performed At | + + + | Fluoroscopy guidance was provided as requested by the physician and | | | any images obtained were for reference only. | | + + + + + | Procedure Note | + + | Roberto Murry - 03/27/2019 1:28 PM PDT Fluoroscopy guidance was provided as | | requested by the physician and anyimages obtained were for reference only. | | | + + documented in this encounter Visit Diagnoses Not on filedocumented in this encounter
--- OUTSIDE RECORDS SUMMARY | ~2019-10-18 | XMS | Encounter Summary ---
Demographics + + + | Address | [address] | | | [place] [address] | + + + | Home Phone [...] Providers + +------+ + | Care Manager Cost Name | Role | Phone | + [...] + | 02/18/ | Telephone | [facility] | Capo Bermudez, | Follow-up | | 2019 | | PHYSIATRY [address] | PA-C [address] | (Injections) | | | | [place], | [address] [place] | | | | | [place] [address] | [place] [address] | | | | | [phone] | [phone] | | | | | | | [...] | | | | | | [place] [address] | | | | | | [phone] | | | | | | | [...] Density wo | Imaging | Routin | [facility] current | Expected: | | Vert Fx [...] systemic steroid therapy | + + | 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
--- OUTSIDE RECORDS SUMMARY | ~2019-10-18 | XMS | Encounter Summary ---
Demographics + + + | Address | [address] | | | [place] [address] | + + + | Home Phone [...] Providers + +------+ + | Care Rubber Gasket Inspector Trimmer Name | Role | Phone | + +------+ + | Jesus Mijares MD | PCP | | + +------+ + Encounter Details +--------+ + + + + | Date | Type | Department | Care Team | Description | +--------+ + + + + | 12/05/ | Orders Only | [facility] | Conversion | | | 2019 | | NEPHROLOGY ELEAZAR | Transaction, | | | | | [address] | Provider Unknown | | | | | [address] [facility] [place] | | | | | | [address] | (Fax) | | | | | [phone] | | | +--------+ + + + [...] | | | | | | [place] [address] | | | | | | [phone] | | | | | | | [...]
--- OUTSIDE RECORDS SUMMARY | ~2019-10-18 | XMS | Encounter Summary ---
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 For all [...] in [address] Yong Pena in [place], use of hydrocodone 3 x/day and flexeril, [...] has no apparent deficits with short or fpc memory. 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 Unfortunately she continue s to have significant [...] [place], | | | | | | [place] [address] | | | | | | [phone] | | | | | | | [...]
--- OUTSIDE RECORDS SUMMARY | ~2019-10-18 | XMS | Encounter Summary ---
Demographics + + + | Address | [address] | | | [place] [address] | + + + | Home Phone [...] Team Providers + +------+ + | Care Video System Repairer Name | Role | Phone | + +------+ + | Jesus Mijares MD | PCP | | + +------+ + Encounter Details +--------+ + + + + | Date | Type | Department | Care Team | Description | +--------+ + + + + | 02/26/ | Hospital | [facility] | Nilson Chaudhry | | | 2012 | Encounter | MED CTR XRAY [address] | T, [address] | | | | | [place] | [place], [place] | | | | | [place] [address] | [address] | | | | | [phone] | | | +--------+ + + + [...] | | | | | | [place] [address] | | | | | | [phone] | | | | | | | [...] Performed At | + + + | [facility] | [place] | | Department [address] [facility] | [facility] | | [ rep [address]] [ rep [facility] | | st zip] Signed | - IMAGING | | | | | Patient Name: SHAVONNE CASTILLO Physician: | | | ANNALISA : 1940 Age: 73 Sex: F Unit #: [id number] | | | Exam Date: 02/26/13 Location: [facility] | | | Report #: [id number] Page: | | | %(RAD)RES..mtdd.print.filter("pg") of %(RAD) | | | RES..mtdd.print.filter("tpg") | | | | | | Accession Number: [id number] | | | SACROILIAC JOINT INJECTION, TROCHANTERIC [...] | | | Transcribed Date/Time: 02/26/2013 18:46 Fusion Analyst: | | | CARLA <<Signature on File>> | | | Nilson Jensen | | | MD Richa02/27/13 0856 <Electronically signed by Nilson Jensen | | | [place]AGE> Nilson Chaudhry MD 02/26/13 1818 | | | Fusion Analyst: Boby Kim02/26/136 | | | | | + + + + + + + + | Performing | Address | City/State/Zipcode | Phone Number | | Organization | | | | + + + + + | [facility] | [address] | [place] | [phone] | | [facility] | | [address] | | | - IMAGING | | | | + + + + + documented in this encounter Visit Diagnoses Not on filedocumented in this encounter
--- OUTSIDE RECORDS SUMMARY | ~2019-10-18 | XMS | Encounter Summary ---
Demographics + + + | Address | [address] | | | [place] [address] | + + + | Home Phone | | + + + | Preferred Language | Unknown | + + + | Marital Status | | + + + | Pentecostal Affiliation | 1027 | + + + | Race | Unknown | + + + | Ethnic Group | Unknown | + + + Author + + + | Author | [facility] | | | and [place] | + + + | Organization | [facility] | | | [...] Providers + +------+ + | Care Rn Telehealth Name | Role | Phone | + [...] | neurosurgery has | | | | [place], | [address] | been in contact with | | | | [place] [address] | [phone] | her and injections | | | | [phone] | | while waiting) | +--------+ + [...] | | | | | | [place] [address] | | | | | | [phone] | | | | | | | [...]
--- OUTSIDE RECORDS SUMMARY | ~2019-10-18 | XMS | Encounter Summary ---
Demographics + + + | Address | [address] | | | [place] [address] | + + + | Home Phone | | + + + | Preferred Language | Unknown | + + + | Marital Status | | + + + | Synagogue Affiliation | 1027 | + + + | Race | Unknown | + + + | Ethnic Group | Unknown | + + + Author + + + | Author | [facility] | | | and [place] | + + + | Organization | [facility] | | | [...] Providers + +------+ + | Care Environmental Educator Name | Role | Phone | [...] | | | | [place] | [address] | | | | | | and/or Inj | Phone: | | | | | | Major Joint | [phone] | | | | | | Right | Fax: | | | | | | | [phone] | | +--------+--------+ + + + + [...] | | | | [place] | [address] | | | | | | and/or Inj | Phone: | | | | | | Major Joint | [phone] | | | | | | Right | Fax: | | | | | | | [phone] | | +--------+--------+ + + + + Encounter Details +--------+ + + + + | Date | Type | Department | Care Team | Description | +--------+ + + + + | 03/03/ | Hospital | [facility] | Capo Bermudez, | Lumbar | | 2019 | Encounter | MED CTR XRAY [address] | PA-C [address] | radiculopathy; | | | | [place] | [address] [place] | Trochanteric | | | | [place] [address] | [place] [address] | bursitis, right hip | | | | [phone] | [phone] | | | | | | | | | | | | Chief Dispatcher Service, [facility] | | +--------+ + + + [...] DR | | | | | | [place], | | | | | | [place] [address] | | | | | | [phone] | | | | | | | [...]
--- OUTSIDE RECORDS SUMMARY | ~2019-10-18 | XMS | Encounter Summary ---
Demographics + + + | Address | [address] | | | [place] [address] | + + + | Home Phone | | + + + | Preferred Language | Unknown | + + + | Marital Status | | + + + | Christian Affiliation | 1027 | + + + | Race | Unknown | + + + | Ethnic Group | Unknown | + + + Author + + + | Author | [facility] | | | and [place] | + + + | Organization | [facility] | | | [...] Team Providers + +------+ + | Care Liquified Natural Gas Specialist Name | Role | Phone | + +------+ + | Jesus Mijares MD | PCP | | + +------+ + Encounter Details +--------+ + + + + | Date | Type | Department | Care Team | Description | +--------+ + + + + | 03/30/ | Hospital | [facility] | Capo Bermudez, | Chronic left | | 2019 | Encounter | MED CTR SUE XRAY | PA-C [address] | shoulder pain | | | | [address] [place] | [address] [place] | | | | | [place], [place] | [place] [address] | | | | | [address] | [phone] | | | | | [phone] | | | +--------+ + + + [...] | | | | | | [place] [address] | | | | | | [phone] | | | | | | | [...]
--- OUTSIDE RECORDS SUMMARY | ~2019-10-18 | XMS | Encounter Summary ---
Demographics + + + | Address | [address] | | | [place] [address] | + + + | Home Phone [...] | Author | [facility] | | | and [place] | + + + | Organization | [facility] | | [...] Providers + +------+ + | Care Cloth Printing Inspector Name | Role | Phone | [...] | Acute pain | [place], | [address] | | | | | of right | Nilson Jensen MD | [place], | | | | | shoulder | [address] | [place] [address] | | | | | Procedures | [address] [place] | Phone: | | | | | CT | [place] | [phone] | | | | | Arthrogram | [address] | Fax: | | | | | Shoulder | Phone: | [phone] | | | | | Right | [phone] | | | | | | Called 1x | Fax: | | | | | | | [phone] | | +--------+--------+ + + + + [...] | Acute pain | [place], | [address] | | | | | of right | Nilson Jensen MD | [place], | | | | | shoulder | [address] | [place] [address] | | | | | Procedures | [address] [place] | Phone: | | | | | CT | [place] | [phone] | | | | | Arthrogram | [address] | Fax: | | | | | Shoulder | Phone: | [phone] | | | | | Right | [phone] | | | | | | Called 1x | Fax: | | | | | | | [phone] | | +--------+--------+ + + + + Encounter Details +--------+ + + + + | Date | Type | Department | Care Team | Description | +--------+ + + + + | 12/03/ | Hospital | [facility] | Nilson Chaudhry | Acute pain of right | | 2018 | Encounter | MED CTR [address] Naida Jensen MD [address] | shoulder | | | | [place], | [place] | | | | | [place] [address] | [address] | | | | | [phone] | | | +--------+ + + + [...] | | | | | | [place] [address] | | | | | | [phone] | | | | | | | [...]
--- OUTSIDE RECORDS SUMMARY | ~2019-10-18 | XMS | Encounter Summary ---
Demographics + + + | Address | [address] | | | [place] [address] | + + + | Home Phone | | + + + | Preferred Language | Unknown | + + + | Marital Status | | + + + | Jain Affiliation | 1027 | + + + | Race | Unknown | + + + | Ethnic Group | Unknown | + + + Author + + + | Author | [facility] | | | and [place] | + + + | Organization | [facility] | | [...] Team Providers + +------+ + | Care Call Center Operator Name | Role | Phone | + +------+ + | Jesus Mijares MD | PCP | | + +------+ + Reason for Visit + + + | Reason | Comments | + + + | Follow-up, Office | Same Day Injection | | Visit | | + + + Follow Up (Routine) + +--------+ + + + + | Status | Reason | Specialty | Diagnoses / | Referred By | Referred To | | | | | Procedures | Contact | Contact | + +--------+ + + + + | Authorized | | Physical | Diagnoses | Maryana, | Richa, | | | | Medicine and | Lumbar | Jesus | Nilson Jensen MD | | | | Rehabilitatio | radiculopath | MD [address] | [address] | | | | n | y Z Same | [address] | [facility] | | | | | Day | [address] | [place], [place] | | | | | Injection/Po | [place], | [address] Phone: | | | | | ssible INR | [place] | [phone] | | | | | Check | [phone] | Fax: | | | | | Procedures | Phone: | [phone] | | | | | Follow up | [phone] | | | | | | DOS 11/ | Fax: | | | | | | / | [phone] | | + +--------+ + + + + Encounter Details +--------+---------+ + + + | Date | Type | Department | Care Team | Description | +--------+---------+ + + + | 09/02/ | Office | [facility] | Balbir Beckford PA-C | Chronic bilateral | | 2019 | Visit | PHYSIATRY [address] | [address] | low back pain with | | | | [place], | [place] | sciatica, sciatica | | | | [place] [address] | [address] | laterality | | | | [phone] | | unspecified (Primary | | | | | | Dx); Current use of | | | | | | exterminator | | | | | | anticoagulation; [...] (HCC); | | | | | | Age-related | | | | | | osteoporosis without | | | | | | current | | | | | | pathological | | | | | | fracture | +--------+---------+ + + + Social History [...] + + + | Blood Pressure | 117/74 | 09/02/2019 12:54 PM | | | | | PST | | + + + + + | Pulse | 60 | 09/02/2019 12:54 PM | | | | | PST [...] + + + + | Weight | 68.9 kg (152 lb) | 09/02/2019 12:54 PM | | | | | PST | | + + + + + | Height | 162.6 cm (5' 4") | 09/02/2019 12:54 PM | | | | | PST | | + + + + + | Body Mass Index | 26.09 | 09/02/2019 12:54 PM | | | | | PST | | + + + + + documented in this encounter Patient Instructions Patient Instructions Balbir Beckford PA-C - 09/02/2019 1:00 PM PST1)Patient will reschedule in the future after she has been released by student life coordinator (from anticoagulation and A. Fib) and PCP (for osteoporosis) documented in this encounter Progress Notes Balbir Beckford PA-C - 09/02/2019 1:00 PM PST Balbir Beckford PA-C [address] [facility] [address] [place], [place] [id number] FAX: CHIEF COMPLAINT: Chief Complaint Patient presents with Follow-up, Office Visit Same Day Injection HISTORY OF PRESENT ILLNESS: Rebecca Castillo is a 79 y.o. female being seen today for follow up for same day appointment for Chronic low back pain. Previously patient had Bilateral L4-L5 Transforaminal Epidural s teroid injectios performed by Dr. Chaudhry on 03/03/2019. The patient reports over excelle nt relief for a 3 months. Patient reports symptoms of low back pain returned and have worse patel over the past few months. She describes the pain as a constant [...] dysfunction. She does not have saddle anesthesia. Patient is currently on Warfarin treatment for Atrial Fibrillation. Patient's medications, allergies, past medical, surgical, social [...] 4 h ours as needed. losartan (COZAAR) 50 mg tablet Take 1 tablet by mouth Daily. 90 tablet 3 sotalol (BETAPACE) 80 mg tablet Take 80 mg by mouth 2 times daily. torsemide (DEMADEX) 20 mg tablet Take 20 mg by mouth 3 times daily. traZODone (DESYREL) 100 mg tablet Take 100 mg by mouth nightly. 3 warfarin (COUMADIN) 4 MG tablet Taking 4 mg tablet on Saturday and Saturday warfarin (COUMADIN) 6 MG tablet Take 6 mg by mouth Daily. Patient taking 6 mg tablet on Saturday, Saturday, , and Saturday 99 No current facility-administered medications for this visit. ALLERGIES: Allergies Allergen Reactions Sitagliptin Rash Penicillin V Potassium Sulfa Antibiotics REVIEW OF SYSTEMS: GENERALLY: No fever, chills, no night sweats, no fatigue, no weight loss, no weight gain. EYES: No vision changes. EARS, NOSE, AND THROAT: No hearing loss, no ear pain, no nosebleeds, no toothache, no gum p roblems, no significant snoring or sleep apnea, no seasonal allergies, no difficulty swallow ing, no hoarseness. NEUROMUSCULAR: Please see the review of systems discussed above in the history of present illness. In addition, the patient has no dizziness, no blackouts, no headaches. PSYCHIATRIC: No depression, no difficulty sleeping, no anxiety, no memory loss. CARDIOVASCULAR: No chest pain, no palpitations, no swollen ankles. PULMONARY: No shortness of breath, no cough. GASTROINTESTINAL: No poor appetite, no diarrhea, no nausea or vomiting, no bowel incontine nce, no hemorrhoids, no constipation, no abdominal pain. GENITOURINARY: No urinary difficulty and no incontinence. SKIN: No rashes. HEMATOLOGIC/LYMPHATIC: No enlarged lymph nodes or swollen glands. ENDOCRINE: No diabetes, no thyroid disease, no osteopenia or osteoporosis, no breast drain age. RHEUMATOLOGIC: No osteoarthritis, no rheumatoid arthritis. PHYSICAL EXAMINATION: Blood pressure 117/74, pulse 60, height 1.626 m (5' 4"), weight 68.9 kg (152 lb). Body mass index is 26.09 kg/m. GENERAL: The patient is well developed and well nourished. She does appear uncomfortable w hen seated. HEENT: Normocephalic and atraumatic. Normal sclerae without icterus. NECK (ANTERIOR): There is no apparent cervical lymphadenopathy or thyromegaly. PULMONARY: The patient is in no acute respiratory distress with unlabored respirations. CARDIOVASCULAR: Regular rate and rhythm. There is lower extremity edema. POCT: INR: 3.9 today. ABDOMEN: Non-distended. SKIN: Limited skin exam shows no significant rashes or lesions. NEUROLOGIC: The patient is awake, alert, and oriented. She follows simple and complex commands. Her speech is fluent. She comprehends speech well. She has no apparent deficits with short or exterminator memory. The cranial nerves appear grossly intact. MUSCULOSKELETAL : Patient complains of Right knee pain during visit. Right knee has noticea ble swelling compared to Left knee. patient complained of pain on posterior gastrocnemius ar eas. Skin temperature of bilateral legs is equal on exam. No masses or cords palpated, but it was difficult to determine with edema of bilateral lower extremities. RADIOGRAPHIC REVIEW: The patient's imaging was reviewed in detail with the patient today during the visit. Dexa Scan results from 04/09/2019: Osteoporosis: AP Spine T-Score: -3.9 and DualFemur T-Score: -3.3 ASSESSMENT: 1. Chronic bilateral low back pain with sciatica, sciatica laterality unspecified 2. Current use of exterminator anticoagulation POC Fingerstick INR 3. Adolescent idiopathic scoliosis of lumbar region 4. Lumbar radiculopathy 5. Right knee pain, unspecified chronicity 6. Paroxysmal atrial fibrillation (HCC) PLAN: 1)Today I have discussed my clinical impression with Rebecca Lua Jonathan. Shared decision richelle ayala between Rebecca Castillo and I was used during today's encounter. We discussed the patient 's differential diagnosis, description of symptoms, physical exam, imaging and treatment lilly n that suggest diagnosis at this time. 2) I counseled patient on treatment options which included conservative self management tory ayala OTC NSAIDs/Ice and heat packs, physical therapy, prescription medications, epidural stero id injection, as well as possible surgical intervention. 3) Imaging: As descibed above in radiology review. 4) The patient has had significant conservative care including medications (NSAIDS and narc otics), PT (multiple sessions over the years) and care transport nurse. Unfortunately Rebecca Castillo continues to have significant discomfort. It appears to me that the pain is primaril y coming from Lumbar spine and Right knee region. 5) Patient will follow up student life coordinator and PCP for A.Fib and Osteoporosis. 6) Patient will return to our clinic once she has been released to do so by PCP and Cardiol ogist. I spent 20 minutes in visit with Rebecca Chanell Castillo today with the majority of time spent coun selling the patient on her diagnosis, options for her care, and coordinating her care. ELECTRONICALLY SIGNED BY: Balbir Beckford PA-C, 09/02/2019 2:47 PM documented in this enc ounter Plan of Treatment +--------+ + + + + | Date | Type | Specialty | Care Team | Description | +--------+ + + + + | 11/17/ | Office | Cardiology | Rajendra Fowler, | | | 2019 | Visit | | MD [address] | | | | | | [place], | | | | | | [place] [address] | | | | | | [phone] | | | | | | | [...] | | e | 2:35 PM | exterminator | procedure are in the | | | | PST | anticoagulation | results section. | + +--------+ + + + documented in this encounter Results POC Fingerstick INR (09/02/2019 2:35 PM PST) + +---------+ + + + | Component | Value | Ref Range | Performed | Pathologist | | | | | At | Signature | + +---------+ + + + | INR, POC | 3.9 (A) | 0.9 - 1.2 | [facility] | | | | | | [facility] | | | | | | [facility] | | | | | | LABORATORY | | + +---------+ + + + | Instrument | | | [facility] | | | ID | | | [facility] | | | | | | [facility] | | | | | | LABORATORY | | + +---------+ + + + + + | Specimen | + + | Blood | + + + + + + + | Performing | Address | City/State/Zipcode | Phone Number | | Organization | | | | + + + + + | [facility] [address] | [address] | [place] [address] | [phone] | | [facility] | | | | | LABORATORY | | | | + + + + + documented in this encounter Visit Diagnoses + + | Diagnosis | + + | Chronic bilateral low back pain with sciatica, sciatica laterality unspecified - | | Primary | + + | Current use of exterminator anticoagulation Encounter for long-term (current) use of | | anticoagulants | + + | 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
--- OUTSIDE RECORDS SUMMARY | ~2019-10-18 | XMS | Encounter Summary ---
Demographics + + + | Address | [address] | | | [place] [address] | + + + | Home Phone [...] Team Providers + +------+ + | Care Transcriptionist Name | Role | Phone | + [...] | | | [place], | [address] | | | | | Trochanteric | Nilson Jensen MD | [place], | | | | | bursitis of | [address] | [place] | | | | | right hip | [place] | [address] | | | | | Procedures | [place], [place] | Phone: | | | | | [place] | [address] | [phone] | | | | | Joint | Phone: | Fax: | | | | | Injection | [phone] | [phone] | | | | | Right | Fax: | | | | | | | [phone] | | +--------+--------+ + + + + [...] bursitis of right | | | | [address] [place], | [place], [place] | hip (Primary Dx) | | | | [place] [address] | [address] | | | | | [phone] | | | +--------+ + + + [...] | | | | | | [place] [address] | | | | | | [phone] | | | | | | | [...] [address] | [place] | [phone] | | [facility] | | [address] | | | - IMAGING | | [...]
--- OUTSIDE RECORDS SUMMARY | ~2019-10-18 | XMS | Encounter Summary ---
Demographics + + + | Address | [address] | | | [place] [address] | + + + | Home Phone | | + + + | Preferred Language | Unknown | + + + | Marital Status | | + + + | Episcopalian Affiliation | 1027 | + + + | Race | Unknown | + + + | Ethnic Group | Unknown | + + + Author + + + | Author | [facility] | | | and [place] | + + + | Organization | [facility] | | | [...] Team Providers + +------+ + | Care Breakfast Attendant Name | Role | Phone | + [...] [address] | | | | | [place], | [place] [facility], | | | | | [place] [address] | [place] [address] | | | | | [phone] | [phone] | | | | | | | [...] [place], | | | | | | [place] [address] | | | | | | [phone] | | | | | | | [...]
--- OUTSIDE RECORDS SUMMARY | ~2019-10-18 | XMS | Encounter Summary ---
Demographics + + + | Address | [address] | | | [place] [address] | + + + | Home Phone | | + + + | Preferred Language | Unknown | + + + | Marital Status | | + + + | Orthodoxy Affiliation | 1027 | + + + | Race | Unknown | + + + | Ethnic Group | Unknown | + + + Author + + + | Author | [facility] | | | and [place] | + + + | Organization | [facility] | | [...] Team Providers + +------+ + | Care Dental Assistant Medical Assistant Name | Role | Phone | [...] + + | 03/30/ | Telephone | [facility] | Capo Bermudez, | Results, Imaging | | 2019 | | PHYSIATRY [address] | PA-C [address] | (Shoulder XR) | | | | [place], | [address] [place] | | | | | [place] [address] | [place] [address] | | | | | [phone] | [phone] | | | | | | | [...] [place], | | | | | | [place] [address] | | | | | | [phone] | | | | | | | [...]
--- OUTSIDE RECORDS SUMMARY | ~2019-10-18 | XMS | Encounter Summary ---
Demographics + + + | Address | [address] | | | [place] [address] | + + + | Home Phone [...] Team Providers + +------+ + | Care Outbound Sales Professional Name | Role | Phone | [...] Thoracic or | [place], | [address] | | | | | lumbosacral | Nilson Jensen MD | [place], | | | | | neuritis or | [address] | [place] | | | | | | [place] | [address] | | | | | radiculitis, | [place], [place] | Phone: | | | | | unspecified | [address] | [phone] | | | | | Procedures | Phone: | Fax: | | | | | [place] INJECT | [phone] | [phone] | | | | | ANES/STEROID | Fax: | | | | | | FORAM[place] | [phone] | | | | | | LUMBAR/SACRA | | | | | | | L W IMG | | | | | | | GUIDE ,1 | | | | | | | LEVEL [place] | | | | | | | TRIAMCINOLON | | | | | | | E ACET INJ | | | | | | | NOS, 10 MG | | | | | | | Bilateral | | | | | | | L4/L5 TFESI | | | +--------+--------+ + + + + Encounter Details +--------+ + + + + | Date | Type | Department | Care Team | Description | +--------+ + + + + | 08/19/ | Hospital | [facility] | Christiano, | Lumbar | | 2013 | Encounter | MED CTR XRAY [address] | [place] [address] | radiculopathy; | | | | [place] | [facility], | Spinal stenosis of | | | | [place] [address] | [place] [address] | lumbar region - | | | | [phone] | 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, 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 | | | | | Voice InstructorJaspal | | +--------+ + + + + [...] +---------+ + + | Blood Pressure | 135/80 | 08/19/2014 2:57 PM | | | | | PST | | + +---------+ + + | Pulse | 95 | 08/19/2014 2:57 PM | | | | | [...] | | | | | | [place] [address] | | | | | | [phone] | | | | | | | [...] | [place] EPIDURAL STEROID | Routin | 08/19/2014 | Lumbar | Results for this | | INJECTION LUMBAR | e | 2:37 PM | radiculopathy | procedure are in [...] Diagnosis: Lumbar radiculopathy ICD-9 Code 724.4 Rebecca Chanell | [facility] | | Jonathan presents to the fluoroscopy suite for fluoroscopically-guided [facility] | | bilateral L4-L5 transforaminal epidural [...] | Epidural Steroid InjectionsDiagnosis: Lumbar radiculopathyICD-9 Code 724.Lori Lua | | Jonathan presents to the fluoroscopy [...] ST. | [address] | [place], [place] | [phone] | | [facility] | | [address] | | | - IMAGING | | [...] + | betamethasone (CELESTONE | Given | 08/19/20 | 12 mg | | Other | | SOLUSPAN) injection 12 mg 12 mg, | | 14 3:00 | | | (Comment | | Intramuscular, EVERY 24 HOURS | | PM PST | | | ) | | INTERVAL, First dose on Sat | | | | | | | 08/19/14 at 1500, For 2 doses, | | | | | | | Shake well. Not for IV use., | | | | | | + +--------+ +-------+------+ + +---+---+ | | | +---+---+ + +-------+ +-------+---+---+ | iohexol (OMNIPAQUE 300) 300 | Given | 08/19/20 | 4 mLs | | | | mg/mL injection 4 mL 4 mL, | | 14 3:00 | | | | | INTRATHECAL, ONCE, Sharon 08/19/14 at | | PM PST | | | | | 1500, For 1 dose | | | | | | + +-------+ +-------+---+---+ +---+---+ | | | +---+---+ + +-------+ +-------+---+ + | lidocaine 1% injection 5 mL 5 | Given | 08/19/20 | 5 mLs | | Other | | mL, Intradermal, ONCE, Sharon | | 14 3:00 | | | (Comment | | 08/19/14 at 1500, For 1 dose | | PM PST | | | ) | + +-------+ +-------+---+ + +---+---+ | | | +---+---+ + +-------+ +-------+---+---+ | sodium bicarbonate (NEUT) 4% | Given | 08/19/20 | 2 mLs | | | | injection 2 mL 2 mL, Topical, | | 14 3:00 | | | | | ONCE, [facility] 08/19/14 at 1500, For 1 | | PM PST | | | | | dose | | | | | | + +-------+ +-------+---+---+ +---+---+ | | | +---+---+ documented in this encounter"
--- OUTSIDE RECORDS SUMMARY | ~2019-10-18 | XMS | Encounter Summary ---
Demographics + + + | Address | [address] | | | [place] [address] | + + + | Home Phone [...] Team Providers + +------+ + | Care Wine Master Name | Role | Phone | + +------+ + | Jesus Mijares MD | PCP | | + +------+ + Encounter Details +--------+ + + + + | Date | Type | Department | Care Team | Description | +--------+ + + + + | 04/25/ | Orders Only | [facility] | Rajendra Fowler, | | | 2016 | | CARDIOLOGY [place] | [address] | | | | | [address] | [place], | | | | | [facility] [place] | [place] [address] | | | | | [address] | [phone] | | | | | [phone] | | | +--------+ + + + [...] | | | | | | [place] [address] | | | | | | [phone] | | | | | | | [...] + | DIGOXIN LEVEL | Routin | 04/25/2017 | | Results for this | | | e | 12:50 PM | | procedure are in the | | | | PDT | | results section. | + +--------+ + + + documented in this encounter Results Digoxin Level (04/25/2017 12:50 PM PDT) + + + + + + | Component | Value | Ref Range | Performed | Pathologist | | | | | At | Signature | + + + + + + | Digoxin | 0.74 (A)Comment: Last | 0.8 - 2.0 ng/mL | EXTERNAL | | | level | dose 16 hours | | LAB | | + + [...]
--- OUTSIDE RECORDS SUMMARY | ~2019-10-18 | XMS | Encounter Summary ---
Demographics + + + | Address | [address] | | | [place] [address] | + + + | Home Phone | | + + + | Preferred Language | Unknown | + + + | Marital Status | | + + + | Church Affiliation | 1027 | + + + | Race | Unknown | + + + | Ethnic Group | Unknown | + + + Author + + + | Author | [facility] | | | and [place] | + + + | Organization | [facility] | | | [...] Team Providers + +------+ + | Care Conveyor Tender Name | Role | Phone | + +------+ + | Jesus Mijares MD | PCP | | + +------+ + Encounter Details +--------+ + + + + | Date | Type | Department | Care Team | Description | +--------+ + + + + | 01/05/ | Orders Only | [facility] | Ino Wilson MD | | | 2015 | | NEPHROLOGY [place] | [address] [place] | | | | | [address] [place] | [address] [place], [place] | | | | | [address] [place], [place] | [address] | | | | | [address] | | | | | | [phone] | | | +--------+ + + + [...] | | | | | | [place] [address] | | | | | | [phone] | | | | | | | [...]
--- OUTSIDE RECORDS SUMMARY | ~2019-10-18 | XMS | Encounter Summary ---
Demographics + + + | Address | [address] | | | [place] [address] | + + + | Home Phone [...] Team Providers + +------+ + | Care Realtime Court Reporter Name | Role | Phone | + +------+ + | Jesus Mijares MD | PCP | | + +------+ + Encounter Details +--------+ + + + + | Date | Type | Department | Care Team | Description | +--------+ + + + + | 09/15/ | Hospital | [facility] | Yong Pena | S/P lumbar fusion | | 2012 - | Encounter | SOFIA CASTROLSY | MD [address] | | | | | [address] | [address] | | | 09/22/ | | [place], [place] | [place] [address] | | | 2012 | | [address] | [phone] | | | | | [phone] | | | +--------+ + + + [...] encounter Discharge Summaries Manasa Ortega ARNP - 09/22/2013 1:20 PM PST Discharge Summaries by Manasa Ortega ARNP at 09/22/13 1320 Author: Manasa Ortega ARNP Service: (none) Author Type: Nurse Practitioner Filed: 09/22/13 2542 Date of Service: 09/22/13 1320 Status: Signed Treating Plant Supervisor: Manasa Ortega ARNP (Nurse Practitioner) Cosigner: Yong Pena MD at 0228 Neurosurgery Discharge Summary Note Patient: Rebecca Castillo Admission Date: 09/15/2013 4:19 PM Discharge Date: 09/22/2013 2:00 PM Significant Providers: Yong Pena Principal Diagnosis: 1. Superficial wound infection. 2. Draining wound. Secondary Diagnoses: Active Ambulatory Problems Diagnosis Date Noted No Active Ambulatory Problems Hypoglycemia Discharge Medications: Discharge Medication List as of 09/22/2013 12:41 PM START taking these medications Details !! docusate (AKA COLACE) 250 mg Oral Cap Take 1 Cap by mouth twice a day.Disp-80 Cap, R-0, Normal !! Sennosides 17.2 mg Oral Tab Take 1 Tab by mouth daily at bedtime.Disp-80 Tab, R-0, Arelis l amoxicillin-pot clavulanate (AKA AUGMENTIN) 875-125 mg Oral Tab Take 1 Tab by mouth every t welve hours.Disp-14 Tab, R-0, Normal !! oxyCODONE, Immediate release, (AKA ROXICODONE) 5 mg Oral Tab Take 1-3 Tabs by mouth ever y three hours as needed for Pain (For breakthrough pain only).Disp-90 Tab, R-0, Normal !! - Potential duplicate medications found. Please discuss with provider. CONTINUE these medications which have CHANGED Details HYDROcodone-acetaminophen (AKA NORCO) 5-325 mg Oral Tab Take 1-2 Tabs by mouth every six ho urs as needed for Pain.Disp-90 Tab, R-0, VINCENT, Normal CONTINUE these medications which have NOT CHANGED Details !! oxyCODONE, Immediate release, (AKA ROXICODONE) 5 mg Oral Tab Take 1-3 Tabs by mouth ever y three hours as needed for Pain (For breakthrough pain only).Disp-120 Tab, R-0, Normal !! Sennosides 17.2 mg Oral Tab Take 1 Tab by mouth daily at bedtime.Disp-80 Tab, R-0, Arelis l cyclobenzaprine (AKA FLEXERIL) 10 mg Oral Tab Take 1 Tab by mouth three times a day.Disp-80 Tab, R-0, Normal DIGOXIN (DIGITEK ORAL) Take 0.25 mg by mouth every morning.Historical Med metFORMIN (AKA GLUCOPHAGE) 850 mg Oral Tab Take 850 mg by mouth twice a day.850 mg, BID, Un til Discontinued, Oral, Historical Med Acebutolol 200 mg [...] by Subcutaneous route every morning.His torical Med EZETIMIBE/SIMVASTATIN (VYTORIN 10-40 ORAL) Take by mouth every day in the evening.Historic al Med acetaminophen (AKA TYLENOL) 325 mg Oral Tab Take 650 mg by mouth three times a day as neede d. Pt states takes 3, waits 1 hour then might take 2 more if needed.Historical Med !! docusate (AKA COLACE) 250 mg Oral Cap Take 1 Cap by mouth twice a day.Disp-80 Cap, R-0, Normal polyethylene glycol (AKA MIRALAX) 17 gram Oral PwPk Take 17 g by mouth every day.Disp-24 Pa cket, R-0, Normal Calcium-Cholecalciferol, D3, 250-125 mg-unit Oral Tab Take [...] Other (Comment) Water retention Procedures/Significant Test Results: 09/16/2013 1. Exploration of spinal fusion. 2. Placement of a wound vacuum. Consults: Infectious Disease Plastic Surgery Hospital Course: Ms. Castillo is a 73 year old female who presented to [facility] on 09/15/2013 from [facility] for a superficial wound infection S/P lumbar fusion six weeks prior. She was taken to the OR on 09/16/2013 for exploration of the spinal fusion and placement of a wound vacuum. P ost-operatively, the patient was transferred to for continued monitoring. She did well o vernight with pain initially managed with a GROUP PROGRAM MANAGER, but was weaned to an oral pain regimen with good control by discharge. Her wound vacuum was managed at 125 mm Hg continuous suction ch anged on 09/18/2013 at bedside and closed in the OR by Dr. Degroot on 09/21/2013. Ms. Castillo worked with PT/OT while inpatient and was cleared for discharge home on POD 6. She was disc harged on oral antibiotics antibiotics for one additional week. She was voiding without dif ficulty, had several BMs while inpatient, and was tolerating her meals without nausea. Her incision was intact with no drainage or swelling noted. Discharge instructions were covered in detail including the importance of continuing the bowel medications while taking the mauri n medications, activity restrictions, weight restrictions (nothing greater than 5-10 pounds for one months), showering, but not submerging the incision, and follow-up recommendations. She had no neurologic deficits at discharge and all questions were addressed prior to her l eaving. Diet: Diabetic Activity: As tolerated Instructions/Follow-up: Discharge Instructions 1. Call [facility] Neuroscience office with any questions or concerns at [phone] (RN line ). 2. Sutures should come out post operative day [address] Pena's preference you re turn to his clinic for their removal. Please call [phone] to schedule appointment to h ave these removed. If your incision is closed with steri-strips, these will come off natura ll in 5-7 days. If they remain in [...] of infection, call the Nurse line at [phone]. 6. Follow up with your primary care physician as needed or as per next scheduled appointmen t. 7. Follow up at Dr. Pena's office in 6 weeks. Call to schedule appointment at . Imaging studies will be obtained at follow up. 8. For after hours emergencies, contact: soni Wilkerson [phone] robert Daniels [phone] Activity & Medications 1. Your activity will [...] Concerns please call your Physicians Office at: [phone] Preventing Infection As you recover from surgery we want you to heal and recover without added worry or problems . You may have heard of, or know someone, who had surgery and later went back to the [facility] because of an infection. These [...] on Discharge Coordination: greater than 30 minutes: 50 total minutes NICOLLE Gamble 09/22/2013, 13:20 Administrative Data: CPT [id number] than 30 min (Time spent: 50) CC: Jesus Mijares documentpaola romero in this [...] documented as of this encounter Progress Notes Patrica Amado RN - 09/22/2013 11:28 AM PST Progress Notes by Patrica Amado RN at 09/22/131127 Author: Patrica Amado RN Service: (none) Author Type: Registered Nurse Filed: 09/22/13 9327 Date of Service: 09/22/131127 Status: Signed Treating Plant Supervisor: Patrica Amado RN (Registered Nurse) NSG Shift Summary Patient: Rebecca Castillo Pt alert and oriented x 4. Drain DC'd this am. Moderate serosanguineous drainage to dressin g, not at drain site, dressing reinforced. Pain managed with either 15mg oxycodone (break th rough) or 2 tab norco. PICC line DC'd following am abx dosing. Baseline tremors to bilateral UE and head. Digoxin held this am. Apical pulse = 50 bpm. Working toward DC Patrica Amado RN, 09/22/2013 11:28 AM Mary Burden RN - 09/22/2013 6:41 AM PST Progress Notes by Mary Stiles RN at 09/22/13640 Author: Mary Stiles RN Service: (none) Author Type: Registered Nurse Filed: 09/22/13641 Date of Service: 09/22/13640 Status: Signed Treating Plant Supervisor: Mary Stiles RN (Registered Nurse) NS Progress Note Brief Patient: Rebecca Castillo Assumed care at 2300. No neuro changes this shift. Pt c/o 8/10 back pain with movement; con trolled with available pain meds, tolerable to pt upon reassessment. Pt taking adequate flui ds, but reported "not feeling hungry" upon returning from surgery, HS chemstick 91. No measu rable output in hemovac this AM. Ambulating in room with FWW and SBA. Voiding adequate amoun ts. Pt calls appropriately for assistance. Will continue to monitor. Mary Stiles RN, 09/22/2013 6:[address] AR ELECTRIC LOCOMOTIVE FIRER/FIREMAN - 09/22/2013 6:32 AM PST Progress Notes by Manasa Ortega ARNP at 09/22/1332 Author: Manasa Ortega ARNP Service: (none) Author Type: Nurse Practitioner Filed: 09/22/13 0824 Date of Service: 09/22/13 0632 Status: Signed Treating Plant Supervisor: Manasa Ortega ARNP (Nurse Practitioner) Neurosurgery Progress Note ID: Rebecca Castillo; 73 y.o. female Location: [id number]/545E1 Attending Yong Pena MD Hospital Day # 7 PCP Jesus Mijares Procedure: 09/16/2013 1. Exploration of spinal fusion. 2. Placement of a wound vacuum. 09/18/2013 1. Wound vacuum change. 09/21/2013 1. Wound reconstruction Post Operative Day # 6, 4, 1 Subjective Ms. Castillo reports feeling good, thankful to get rid of the wound vac. Denies any nausea/vo miting, and ambulating well since surgery. Objective VS: Blood pressure 118/54, temperature 36.4 C (97.5 F), resp. rate 16, height 163.2 cm (5' 4.25"), weight 92.534 kg (204 lb), SpO2 93.00%.Temp (24hrs), Av.5 C (97.7 F), M in:36 C (96.8 F), Max:37.4 C (99.4 F) Cardiac Rhythm (monitored Pts.): Sinus bradycardia I/O: Intake/Output Summary (Last 24 hours) at 09/22/13 0632 Last data filed at 09/22/13 0558 Gross per 24 hour Intake 2340 ml Output 720 ml Net 1620 ml General: healthy, alert and in no distress Neuro: Awake, alert and oriented x 3; Cranial nerves II-XII grossly intact; Reflexes symmet rical; Motor intact with BUE and BLE 5/5; Sensation intact to soft touch. Wound: dressing saturated at low border and rolled up, sutures in place, hemovac in place w ith no output Labs: Lab results (within last 13 months/9480hours) 09/19/13 0557 09/15/13 1559 WBC -- -- 9.0 HGB -- -- 13.4 HCT 32.9* < > 40.0 PLT -- -- 415* | 415* NA -- -- 132* K -- -- 4.9 CL -- -- 93* BUN -- -- 48* CR 0.61 < > 1.54* GLUC -- -- 155* < > = values in this interval not displayed. Lab results (within last 13 months/9480hours) 09/15/13 1559 INR 1.0 PT 10.9 PTT 29.6 No results found for this basename: DPHTOTAL, in the last 9480 hours Assessment/Plan: 1. S/P exploration of spinal fusion, placement of a wound vacuum on 09/16/2013, wound vacuum change on 09/18/2013, followed by wound reconstruction on 09/21/2013 - No output in hemovac drain; discontinued without complication; dressing changed * Would like Dr. Degroot to look at incision and clear patient for discharge prior to her leaving - PT/OT - OOB with meals & Ambulate TID - Continue bowel medications - Push IS - 10x hourly while awake 2. Pain - Minimal at this point; oral pain regimen only 3. Diabetes - Continue home dose of metformin and home dose of lantus - Continue SSI with tight management 4. DVT prophylaxis - Hold heparin - SCDs while in bed 5. GI prophylaxis - Continue protonix 40 mg PO daily 6. Discharge planning - DC home with home health RN if incision is seen and cleared by Dr. Degroot - Antibiotics written per Dr. Alvarez's specification - DC PICC line after morning antibiotic prior to patient leaving NICOLLE Gamble 06:32; 09/22/2013 Lavinia Duffy RN - 09/21/2013 11:13 PM PST Progress Notes by Fabiana Cartwright RN at 09/21/132312 Author: Fabiana Cartwright RN Service: (none) Author Type: Registered Nurse Filed: 09/21/132315 Date of Service: 09/21/132312 Status: Signed Treating Plant Supervisor: Fabiana Cartwright RN (Registered Nurse) NS Arrival Note Patient: Rebecca Castillo Arrival time: 2300. From: PACU to room 545. Belongings verified with the patient: Yes - see flowsheet Last VS: Temp: 36.2 C (97.2 F), BP: 162/82 mmHg, Heart Rate: 57, Resp: 15, SpO2: 98 %, O2 Liter Flow (1L or More): 4 L/min, Weight: 92.534 kg (204 lb). Admission Wt:92.534 kg (20 4 lb) Skin intact: Yes PU Prevention Specialty Bed: In use Time of last pain med: In Pacu. Lines and drains: CRYSTAL Picc line(2)Lume No IVF infusing. Current nursing problems: Post-op Issues. Patient orientation: to call light to telephone and television to [facility] information to plan for the day Fabiana Cartwright RN, 09/21/2013 11:13 PM Fabiana Granados RN - 09/21/2013 7:58 PM PSTFormatting of this note might be different from the origina l. Progress Notes by Fabiana Cartwright RN at 09/21/131957 Author: Fabiana Cartwright RN Service: (none) Author Type: Registered Nurse Filed: 09/21/132003 Date of Service: 09/21/131957 Status: Signed Treating Plant Supervisor: Fabiana Cartwright RN (Registered Nurse) NS Progress Note Brief Patient: Rebecca Castillo Patient to OR via her bed at approximately 1950 and denies any severe pain or discomfort. Stable. No complaints or special problems noticed. Fabiana Cartwright RN, 09/21/2013 7:58 PM Fabiana Granados RN - 09/21/2013 6:44 PM PSTFormatting of this note might be different from the origina l. Progress Notes by Fabiana Cartwright RN at 09/21/131843 Author: Fabiana Cartwright RN Service: (none) Author Type: Registered Nurse Filed: 09/21/131854 Date of Service: 09/21/131843 Status: Addendum Treating Plant Supervisor: Fabiana Cartwright RN (Registered Nurse) Related Notes: Original Note by Fabiana Cartwright RN (Registered Nurse) filed at 09/21 [facility] Progress Note Brief Patient: Rebecca Castillo Patient remains NPO for surgical procedure this evening for Dr. Degroot for wound vac elisa rossana/closure when Patient reported to RN that she felt quite shaky and didn't feel well and a sked to have her blood sugar checked and it was at 56 with NICOLLE Almendarez notified and she received Dextrose 25 ml (12.5 gm) x 1 and had her blood sugar checked again approximatel y 30 minutes after Dextrose given with Chemstick was 175 with ANGEL AlmendarezP notified a gain. Medicated for incisional pain and discomfort x 1 with adequate relief. Stable. Aw aiting to go to OR this evening. Continue to monitor and to assess closely. Fabiana Cartwright RN, 09/21/2013 6:44 PM oTim MD - 09/21/2013 6:08 PM PST Progress Notes by Tim Alvarez MD at 09/21/131807 Author: Tim Alvarez MD Service: (none) Author Type: Physician Filed: 09/21/131812 Date of Service: 09/21/131807 Status: Signed Treating Plant Supervisor: Tim Alvarez MD (Physician) Infectious Diseases Progress Note Rebecca Castillo 09/21/2013, Hospital Day # 6 Impression: 1. 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 Not toxic. Does not probe deeply and was superficial at debridement 09/16. Tolerating antibiotics. Has pro teus and E.coli. Ceftriaxone should be adequate 2. DM 3. Obesity 4. Hx afib Recommendations: 1. Ceftriaxone alone through discharge then Augmentin 875mg po bid for 7 more days beginnin g the evening of discharge . 2. Contact isolation discontinued by me remotely over the weekend Current Antibiotics: vanco and ceftriaxone Subjective: Stable Vac on. Feels good. For wound closure this evening. Possible home tomorrow. soft stool Objective: Temp: 36.2 C (97.2 F), BP: 151/82 mmHg, Heart Rate: 63, Resp: 16, SpO2: 99 %, O2 Liter Flow (1L or More): 2L/min, Weight: 92.534 kg (204 lb) General: In NAD Skin: Without rash IV: right PICC without inflammation Ext: No edema or tenderness VAC on the back wound. Lungs clear. CVS RRR abd NT Labs: Lab results (within last /) 09/19/13 0557 09/15/13 1559 WBC -- -- 9.0 RBC -- -- 4.33 HGB -- -- 13.4 HCT 32.9* < > 40.0 MCV -- -- 92 MCH -- -- 30.9 MCHC -- -- 33.5 RDW -- -- 13.2 PLT -- -- 415* | 415* POLYAP -- -- 63 LYMP -- -- 29 MONOP -- -- 6 EOSP -- -- 2 BASP -- -- 0 < > = values in this interval not displayed. Lab results (within last ) 09/19/13 0557 09/18/13 0700 09/17/13 0700 09/15/13 1559 08/08/13 1220 08/07/13 1935 NA -- -- -- -- 132* 135 -- K -- -- -- -- 4.9 4.4 -- CL -- -- -- -- 93* 99 -- TCO2 -- -- -- -- 27 28 -- BUN -- -- -- -- 48* 16 -- CR 0.61 0.66 0.77 < > 1.54* 0.97 1.07* GLUC -- -- -- -- 155* 227* -- < > = values in this interval not displayed. Lab results (within last ) 09/15/13 1559 ESR 39 Lab results (within last ) 09/15/13 1559 CRP 2.9* Cultures: 09/15 wound: enterococcus and GNR growth as of this am. GPC and GNR on the stain. Operative cultures with E.coli and proteus - both pansensitive Xray: None new Tim Alvarez MD [phone] onversion Transacti on, Provider Unknown - 09/21/2013 5:02 PM PSTFormatting of this note might be different fro m the original. Progress Notes by Mario Granados, RN at 09/21/13 170 Author: Mario Granados RN Service: (none) Author Type: Registered Nurse Filed: 09/21/13 171 Date of Service: 09/21/13 170 Status: Signed Treating Plant Supervisor: Mario Granados RN (Registered Nurse) NS Progress Note Brief Patient: Rebecca Castillo Pt has been NPO since after breakfast for a scheduled surgery this afternoon. A&Ox4, moves all extremities. No infection noted. Ambulating using a FWW. Pain controlled with Camilla. Wo und Vac incact, Dressing CDI. BM this morning. Call light within reach, will continue to mon itor. Mario Granados RN, 09/21/2013 5:03 PM acobs on, APRIL Mclain - 09/21/2013 3:12 PM PSTFormatting of this note might be different from th e original. Progress Notes by Erica Abdul MSW at 09/21/13 1512 Author: Erica Abdul MSW Service: (none) Author Type: Net Programmer Filed: 09/21/13 1521 Date of Service: 09/21/13 1512 Status: Signed Treating Plant Supervisor: Erica Abdul MSW (Net Programmer) Case Management Progress Note 09/21/2013 15:13 Patient Rebecca Castillo is a 73 y.o. female s/p exploration of spinal fusion and placement of wound vacuum. Anticipated D/C Plan: Home with HH Current Clinical Needs: Wound vac (@ 125 mm Hg) closure scheduled for today, diabetes stacy blanco, PT/OT, discharge planning Discussion: Per SENIOR SQL SERVER DATABASE DEVELOPER, pt will be ready to discharge home tomorrow 09/22/13. JD EDWARDS CONSULTANT met with p t and at bedside to discuss HH RN. Pt and verbalize agreement. HOT METAL MIXER OPERATOR HELPER sent refe rral, [facility] accepted pt for admission. JD EDWARDS CONSULTANT provided information to pt, who verbalizes appreciation. Case Management Interventions: Case Mgmt Team Interventions: Chart review/screening;Consul t with healthcare team;D/C planning [place] of Choice: [facility] [place] of Choice offered: Yes Medicare Important Message given: Date Medicare IM provided: 09/21/13 Time Medicare IM provided: 1506 APRIL Peterson onversio n Transaction, Provider Unknown - 09/21/2013 11:15 AM PSTFormatting of this note might be di fferent from the original. Progress Notes by Reymundo Pagan at 09/21/131114 Author: Reymundo Pagan Service: (none) Author Type: Svp Research And Strategic Analysis Filed: 09/21/13 1453 Date of Service: 09/21/131114 Status: Addendum Treating Plant Supervisor: Reymundo Pagan (Svp Research And Strategic Analysis) Related Notes: Original Note by Reymundo Pagan (Svp Research And Strategic Analysis) filed at 06/26 1447 Case Management Referral Note 09/21/2013 11:16 Patient Rebecca Castillo is a 73 y.o. female Type of Referral: Home Health Date referral sent: 09/21/2013 Estimated DC Date: TBD Patient's preferences: TBD Number of referrals sent: 1 Accepting Referral Responses as of 09/21/2013 Agency/Facility Name & Contact information: [facility] [phone], fax [phone] ----- Willing to ac cept patient Reymundo Joneseye Manasa Marks ARNP - 09/21/2013 6:34 AM PSTFormatting of this note might be different from th e original. Progress Notes by Manasa Ortega ARNP at 09/21/1334 Author: Manasa Ortega ARNP Service: (none) Author Type: Nurse Practitioner Filed: 09/21/13 0741 Date of Service: 09/21/13633 Status: Addendum Treating Plant Supervisor: Manasa Ortega ARNP (Nurse Practitioner) Related Notes: Original Note by Manasa Ortega ARNP (Nurse Practitioner) filed at 06/26 0740 Neurosurgery Progress Note ID: Rebecca Castillo; 73 y.o. female Location: 545E/545E1 Attending oYng Pena MD Hospital Day # 6 PCP Jesus Mijares Procedure: 09/16/2013 1. Exploration of spinal fusion. 2. Placement of a wound vacuum. 09/18/2013 1. Wound vacuum change. Post Operative Day # 5 Subjective Ms. Castillo reports she is feeling quite well with no pain at this point. Eager to get rid o f the wound vac and understands she will not go to the OR until this evening. Breakfast ord ered and NPO after 9 am. Objective VS: Blood pressure 128/60, temperature 36.6 C (97.9 F), resp. rate 18, height 163.2 cm (5' 4.25"), weight 92.534 kg (204 lb), SpO2 97.00%.Temp (24hrs), Av.4 C (97.6 F), M in:36.1 C (97 F), Max:36.7 C (98.1 F) Cardiac Rhythm (monitored Pts.): Normal sinus rhythm I/O: Intake/Output Summary (Last 24 hours) at 09/21/13 0634 Last data filed at 09/21/13 0600 Gross per 24 hour Intake 600 ml Output 775 ml Net -175 ml General: healthy, alert and in no distress Neuro: Awake, alert and oriented x 3; Cranial nerves II-XII grossly intact; Reflexes symmet rical; Motor intact with BUE and BLE 5/5; Sensation intact to soft touch. Wound: wound vac in place Labs: Lab results (within last 13 months/9480hours) 09/19/13 0557 09/15/13 1559 WBC -- -- 9.0 HGB -- -- 13.4 HCT 32.9* < > 40.0 PLT -- -- 415* | 415* NA -- -- 132* K -- -- 4.9 CL -- -- 93* BUN -- -- 48* CR 0.61 < > 1.54* GLUC -- -- 155* < > = values in this interval not displayed. Lab results (within last 13 months/9480hours) 09/15/13 1559 INR 1.0 PT 10.9 PTT 29.6 No results found for this basename: DPHTOTAL, in the last 9480 hours Assessment/Plan: 1. S/P exploration of spinal fusion and placement of a wound vacuum. - Continue wound vac @ 125 mm Hg * Closure by Dr. Degroot today - evening surgery - ok to eat breakfast * * NPO after 0900 am - IV fluids after that time for hydration - Appreciate Dr. Alvarez following with ID recommendations - PT/OT while inpatient - OOB with meals & Ambulate TID - Continue bowel medications - Push IS - 10x hourly while awake 2. Pain - Minimal at this point; oral pain regimen only 3. Diabetes - Continue home dose of metformin and home dose of lantus (ok to give 1/2 dose lantus th is am (eating breakfast) but hold metformin) - Continue SSI with tight management 4. DVT prophylaxis - Hold heparin - SCDs while in bed 5. GI prophylaxis - Continue protonix 40 mg PO daily 6. Discharge planning - Likely DC home Saturday with home health nursing to assist with wound management marlon patel good wound closure. NICOLLE Gamble 06:34; 09/21/2013 Catrachito Nichols RN - 09/20/2013 10:39 PM PSTFormatting of this note might be different from the apolinar roy Progress Notes by Mary Lou Cherry RN at 09/20/132238 Author: Mary Lou Cherry RN Service: (none) Author Type: Registered Nurse Filed: 09/20/13 7909 Date of Service: 09/20/132238 Status: Addendum Treating Plant Supervisor: Mary Lou Cherry RN (Registered Nurse) Related Notes: Original Note by Mary Lou Cherry RN (Registered Nurse) filed at 09/20/13 224 0 Problem: SKIN/TISSUE INTEGRITY - ADULT Goal: Incision(s), wounds(s) or drain site(s) healing without S/S of infection Outcome: PROGRESSING EXPECTED Wound vac site dressing CDI. Minimal serosanguinous drainage in tubing. Problem: PAIN - ADULT Goal: Verbalizes/displays adequate comfort level or baseline comfort level Outcome: PROGRESSING EXPECTED Took Oxycodone, tylenol and Camilla during this shift for back pain. Pain 1-2 and pt ambulat ing without difficulty in [address] way and in the room. Problem: INFECTION - ADULT Goal: Absence of infection during hospitalization Outcome: PROGRESSING EXPECTED Isolation dc'd by Dr.Jin rich. Problem: SAFETY ADULT - FALL Goal: Free from fall injury Outcome: PROGRESSING EXPECTED Ambulating using a walker+SBA, gait steady. BM x2 today. Stool loose according to pt. Bowel meds held. Chx wipes given tonight for a wound closure tomorrow afternoon. No schedule yet at this time. NPO Saturday as ordered. onversion Transaction, Provider Unknown - 09/20/2013 3:26 PM PSTFormatting of this note might be different from t he original. Progress Notes by Nimisha Allen OT at 09/20/13 1526 Author: Nimisha Allen OT Service: (none) Author Type: Occupational Therapist Filed: 09/20/13 1534 Date of Service: 09/20/13 1526 Status: Signed Treating Plant Supervisor: Nimisha Allen OT (Occupational Therapist) OCCUPATIONAL THERAPY INTERVENTIONS/DAILY NOTE Duration of Session Time In: 13:40 Time Out: 14:10 Precautions: Cleared for OOB: Yes Spinal Surgery Precautions: General spine surgery Patient Comments: "I'm feeling pretty good." FUNCTIONAL STATUS/INTERVENTIONS Upper Extremity Function: WFL Cognitive/Perception: alert, oriented, pleasant, ACTIVITIES OF DAILY LIVING LEVEL OF ASSIST COMMENT/INTERVENTION Self Feeding Independent Grooming Mod I Tends to use BUEs for support on sink or SBOS. Patient given verbal reminde rs to not bend with grooming. Bathing NT Dressing-Upper Mod I Robe Dressing-Lower Mod I Socks Toileting Mod I Able to perform hygiene, utilizes grab bar Functional Transfers Mod I Patient moves cautiously and aware of spinal precautions Higher Living Skills Reviewed BUE conditioning to increase activity tolerance and encourag ed continued OOB activity and mobility to increase strength and activity tolerance with ADLs . ASSESSMENT Pain Assessment during therapy session Patient c/o pain didn't rate, minimal Location of pain: surgical site Pain therapy interventions used: pain well controlled at this time Progress/Response to Therapy: Patient demonstrates good safety awareness and carryover of s katlin precautions with ADLs and functional transfers. Patient/spouse report no concerns for home as they have appropriate AE and support available from daughter. Patient encouraged to continue OOB activity with BUE conditioning and functional mobility with 4WW to increase str ength and activity tolerance with ADLs and transfers. No further skilled occupational therap y needs at this time. Barriers to Discharge: medical Discharge recommendations: Home with assist from family PLAN Frequency: Goals met, will d/c from occupational therapy, re-consult if indicated onver everett Transaction, Provider Unknown - 09/20/2013 11:19 AM PST Progress Notes by Priscila Prado PT at 09/20/13 1119 Author: Priscila Prado PT Service: (none) Author Type: Physical Therapist Filed: 09/20/13 1152 Date of Service: 09/20/13 111 Status: Signed Treating Plant Supervisor: Priscila Prado PT (Physical Therapist) PHYSICAL THERAPY INTERVENTION/DAILY NOTE: MED/SURG Duration of Session Time In: 1005 Time Out: 1030 Precautions: Cleared for OOB: Yes Spinal Surgery Precautions: General spine surgery wound vac Patient Comments: I don't have a problem going to the bathroom myself, I've been doing it. FUNCTIONAL STATUS/INTERVENTIONS ACTIVITY LEVEL OF ASSIST COMMENT/INTERVENTION Bed Mobility Transfers Mod I Sit <> stand with 4WW, extra time needed PT observed toilet transfer with 4WW, mod I Gait/Mobility Mod I With 4WW, x 150', gait appeared slow, though steady, no LOB noted, dist ance limited 2' to pain Stairs supervision Ascended/descended 6 steps with unilateral HR and SPC in contralateral U E, pt able to demo proper technique, non reciprocal pattern. Pt verbalized no questions/conc erns re: stair negotiation. ROM/Therapeutic Exercise: PT instructing pt to continue with progressive walking program du ring LOS. Pt verbalized understanding. Pt indep with wound vac management, knows to call for assistance with IV line. ASSESSMENT Pain Assessment during therapy session Location of pain: pt reporting minimal pain during session. Progress/Response to Therapy: progressing well, demo fair mobility, no physical support nee ded. Attentive . Both pt and verbalizing no questions/concerns re: mobility a nd discharge planning. Will sign off at this time and defer to nursing staff to supervise pr ogressive walking program. RN aware. Barriers to Discharge: medical Discharge recommendations: Home with PLAN Frequency: Goals met, will discharge from Physical Therapy Services, Re-consult if indicat ed Plan for Next Visit: PT to sign off, no skilled needs. onver everett Transaction, Provider Unknown - 09/20/2013 11:06 AM PST Progress Notes by Nimisha Allen OT at 09/20/131105 Author: Nimisha Allen OT Service: (none) Author Type: Occupational Therapist Filed: 09/20/131106 Date of Service: 09/20/131105 Status: Signed Treating Plant Supervisor: Nimisha Allen OT (Occupational Therapist) Attempted to see patient for OT intervention. Patient declines at this time reporting that she just returned to bed and is having slightly increased pain. Will follow up later today. Gerry Craig R - 09/20/2013 9:49 AM PSTFormatting of this note might be different from the o riginal. Progress Notes by Gerry Degroot MD at 09/20/1349 Author: Gerry Degroot MD Service: (none) Author Type: Physician Filed: 09/20/1351 Date of Service: 09/20/13948 Status: Signed Treating Plant Supervisor: Gerry Degroot MD (Physician) Plastic Surgery Continues to do well, awaiting wound reconstruction. OR tomorrow, about 5 pm pending progress of schedule. HCT is 33, NPO orders written. Wound progressing well on VAC Camryn SAVAGE onversion Transacti on, Provider Unknown - 09/20/2013 6:11 AM PSTFormatting of this note might be different fro m the original. Progress Notes by Brittney Richardson RN at 09/20/13610 Author: Brittney Richardson RN Service: (none) Author Type: Registered Nurse Filed: 09/20/13612 Date of Service: 09/20/13610 Status: Signed Treating Plant Supervisor: Brittney Richardson RN (Registered Nurse) Rebecca Castillo Post-traumatic seroma [729.91] Seroma complicating a procedure [998.13] Disruption of external operation (surgical) wound [998.32]I&D and wound vac placement Shift events: Assumed care of patient at midnoc-uneventful night Vital Signs: Blood pressure 152/70, temperature 36.6 C (97.9 F), resp. rate 16, height 163.2 cm (5' 4.25"), weight 92.534 kg (204 lb), SpO2 96.00%. Neuro: Alert and oriented. Cardiac: Denies chest pain. S1S2. No edema Resp: Denies SOB. LCTA GI: General diet. No nausea/vomiting : VODING Skin: WOUND vac TO LOWER back IV access: PICC salin locked Mobility: SBA-to bathroom Plan: Pain management, IV ABO, mobilization Brittney Richardson at 06:11 on 09/20/2013 anasa Ortega ARNP - 09/20/2013 6:04 AM PSTFormatting of this note might be different from th e original. Progress Notes by Manasa Ortega ARNP at 09/20/13603 Author: Manasa Ortega ARNP Service: (none) Author Type: Nurse Practitioner Filed: 09/20/13 1040 Date of Service: 09/20/13603 Status: Signed Treating Plant Supervisor: Manasa Ortega ARNP (Nurse Practitioner) Neurosurgery Progress Note ID: Rebecca Castillo; 73 y.[facility]. [facility] Attending Yong Pena MD Hospital Day # 5 PCP Jesus Mijares Procedure: 09/16/2013 1. Exploration of spinal fusion. 2. Placement of a wound vacuum. 09/18/2013 1. Wound vacuum change. Post Operative Day # 4 Subjective Ms. Castillo reports excellent pain control stating she feels better and better each day. Den ies any nausea/vomiting, difficulty voiding, or with ambulation. Understands she can eat br eakfast in the am and NPO after 9 am for wound closure with Dr. Degroot tomorrow evening. Objective VS: Blood pressure 152/70, temperature 36.6 C (97.9 F), resp. rate 16, height 163.2 cm (5' 4.25"), weight 92.534 kg (204 lb), SpO2 96.00%.Temp (24hrs), Av.7 C (98.1 F), M in:36.6 C (97.8 F), Max:36.9 C (98.5 F) Cardiac Rhythm (monitored Pts.): Normal sinus rhythm I/O: Intake/Output Summary (Last 24 hours) at 09/20/13 0604 Last data filed at 09/19/13 2300 Gross per 24 hour Intake 550 ml Output 300 ml Net 250 ml General: healthy, alert and in no distress Neuro: Awake, alert and oriented x 3; Cranial nerves II-XII grossly intact; Reflexes symmet rical; Motor intact with BUE and BLE 5/5; Sensation intact to soft touch. Wound: wound vacuum in place Labs: Lab results (within last 13 months/) 09/19/13 0557 09/15/13 1559 WBC -- -- 9.0 HGB -- -- 13.4 HCT 32.9* < > 40.0 PLT -- -- 415* | 415* NA -- -- 132* K -- -- 4.9 CL -- -- 93* BUN -- -- 48* CR 0.61 < > 1.54* GLUC -- -- 155* < > = values in this interval not displayed. Lab results (within last 13 months/) 09/15/13 1559 INR 1.0 PT 10.9 PTT 29.6 No results found for this basename: DPHTOTAL, in the last 9480 hours Assessment/Plan: 1. S/P exploration of spinal fusion and placement of a wound vacuum. - Continue wound vac @ 125 mm Hg * Closure by Dr. Degroot on Saturday - evening surgery - ok to eat breakfast * * NPO after 0900 am tomorrow - IV fluids after that time for isolation - Appreciate Dr. lAvarez following with ID recommendations - isolation likely to be discont inued per Dr. Alvarez's note - PT/OT - OOB with meals & Ambulate TID - Continue bowel medications - Push IS - 10x hourly while awake 2. Pain - Minimal at this point; oral pain regimen only 3. Diabetes - Continue home dose of metformin and home dose of lantus (ok to give lantus in the am ( eating) but hold metformin) - Continue SSI with tight management 4. DVT prophylaxis - Continue SQ heparin this am - hold after this evening dose for tomorrow's wound closur e - SCDs while in bed 5. GI prophylaxis - Continue protonix 40 mg PO daily 6. Discharge planning - Likely DC home Saturday with home health nursing to assist with wound management mireya ayala good wound closure. NICOLLE Gamble 06:04; 09/20/2013 onversio n Transaction, Provider Unknown - 09/19/2013 3:00 PM PSTFormatting of this note might be di fferent from the original. Progress Notes by Andres Sarabia, RN at 09/19/13 1500 Author: Andres Sarabia, RN Service: (none) Author Type: Registered Nurse Filed: 09/19/13 5579 Date of Service: 09/19/13 1500 Status: Signed Treating Plant Supervisor: Andres Sarabia, RN (Registered Nurse) Pain control with norco and oxycodone for breakthru pain. Two loose stools. Monitor. Awaiting ok for Isolation to be discontinued. Vanco discontinued per Dr. Alvarez. Calls for assist to BRP with vacutainer on battery. Gerry Craig - 09/19/2013 10:15 AM PSTFormatting of this note might be different from the o riginal. Progress Notes by Gerry Degroot MD at 09/19/13 1015 Author: Gerry Degroot MD Service: (none) Author Type: Physician Filed: 09/19/13 1018 Date of Service: 09/19/131014 Status: Signed Treating Plant Supervisor: Gerry Degroot MD (Physician) Plastic Surgery Skin edges around the VAC uninflamed Reviewed photos from VAC change yesterday--looks clean, ready for closure Saturday late after noon. May have early breakfast, then NPO after 9 am Antibiotics being changed per Dr Alvarez, isolation to cease. HCT is 33. Camryn SAVAGE onversion Transacti on, Provider Unknown - 09/19/2013 9:57 AM PSTFormatting of this note might be different fro m the original. Progress Notes by Nimisha Allen OT at 09/19/13 09 Author: Nimisha Allen OT Service: (none) Author Type: Occupational Therapist Filed: 09/19/13 1004 Date of Service: 09/19/13956 Status: Signed Treating Plant Supervisor: Nimisha Allen OT (Occupational Therapist) OCCUPATIONAL THERAPY INTERVENTIONS/DAILY NOTE Duration of Session Time In: 8:10 Time Out: 8:50 Precautions: Cleared for OOB: Yes Spinal Surgery Precautions: General spine surgery Patient Comments: "I'm doing pretty good today." FUNCTIONAL STATUS/INTERVENTIONS Upper Extremity Function: WFL, BUE AROM conditioning in standing to increase activity nigel ance with ADLs. Cognitive/Perception: alert, oriented, pleasant ACTIVITIES OF DAILY LIVING LEVEL OF ASSIST COMMENT/INTERVENTION Self Feeding Independent Grooming Stand by assist Standing at sink for hand hygiene Bathing NT Dressing-Upper Nt Dressing-Lower Mod I For socks seated at EOB Toileting Stand by assist Utilizes grab bar for transfer, verbal cues required to carryove r spinal precautions with hygiene Functional Transfers Stand by assist: sit to stand Higher Living Skills Patient guided through BUE conditioning to increase activity toleranc e with ADLs. ASSESSMENT Pain Assessment during therapy session Patient c/o pain 5/10 Location of pain: surgical site Pain therapy interventions used: Repositioning, deep breathing, RN aware Progress/Response to Therapy: Patient tolerated standing for 5 min x2 with BUE conditioning . Patient reported feeling dizzy and returned to sitting EOB. BP was 152/70. Patient require s minimal verbal cues with toileting for carryover of spinal precautions, otherwise good car ryover and able to verbalize 3/3 precautions. Patient continues to have impaired activity to lerance, but is motivated to participate in therapy. Barriers to Discharge: pain, spinal precautions, impaired activity tolerance Discharge recommendations: Anticipate home with assist from family PLAN Frequency: Treat 5 times per week Plan for Next Visit: progress OOB activity, carryover of spinal precautions, pacing Manasa Marks ARNP - 09/19/2013 6:26 AM PSTFormatting of this note might be different from th e original. Progress Notes by Manasa Ortega ARNP at 09/19/13625 Author: Manasa Ortega ARNP Service: (none) Author Type: Nurse Practitioner Filed: 09/19/13816 Date of Service: 09/19/13625 Status: Signed Treating Plant Supervisor: Manasa Ortega ARNP (Nurse Practitioner) Neurosurgery Progress Note ID: Rebecca Castillo; 73 y.o. female [facility] Attending Yong Pena MD Hospital Day # 4 PCP Jesus Mijares Procedure: 09/16/2013 1. Exploration of spinal fusion. 2. Placement of a wound vacuum. 09/18/2013 1. Wound vacuum change. Post Operative Day # 3 Subjective Ms. Castillo reports she is feeling ok, denying any significant pain. Does state she needs to go to the bathroom. Tolerated the wound vacuum change and PICC line placement yesterday wi thout difficulty. Objective VS: Blood pressure 133/60, temperature 36.7 C (98 F), resp. rate 18, height 163.2 cm ( 5' 4.25"), weight 92.534 kg (204 lb), SpO2 96.00%.Temp (24hrs), Av.3 C (97.3 F), Min :36.1 C (96.9 F), Max:36.7 C (98 F) Cardiac Rhythm (monitored Pts.): Normal sinus rhythm I/O: Intake/Output Summary (Last 24 hours) at 09/19/13 0626 Last data filed at 09/19/13 0000 Gross per 24 hour Intake 1220 ml Output 10 ml Net 1210 ml General: healthy, alert and in no distress Neuro: Awake, alert and oriented x 3; Cranial nerves II-XII grossly intact; Reflexes symmet rical; Motor intact with BUE and BLE 5/5; Sensation intact to soft touch. Wound: clean and dry, wound vacuum in place Labs: Lab results (within last 13 months/9480 hours) Basename 09/18/13 0700 09/15/13 1559 WBC -- 9.0 HGB -- 13.4 HGBPOC -- -- HCT 32.2* -- HCTPOC -- -- PLT -- 415*|415* NA -- 132* NAPOC -- -- K -- 4.9 KPOC -- -- CL -- 93* CLPOC -- -- HCO3 -- -- NLT9FUO -- -- BUN -- 48* BUNPOC -- -- CR 0.66 -- GLUC -- 155* GLUCPOC -- -- Lab results (within last 13 months/9480 hours) Basename 09/15/13 1559 INR 1.0 PT 10.9 PTT 29.6 No results found for this basename: DPHTOTAL in the last 9480 hours Assessment/Plan: 1. S/P exploration of spinal fusion and placement of a wound vacuum. - Continue wound vac @ 125 mm Hg * Closure by Dr. Degroot on Saturday - evening surgery - ok to eat breakfast * - Appreciate Dr. Alvarez following with ID recommendations - PT/OT - OOB with meals & Ambulate TID - Continue bowel medications - Push IS - 10x hourly while awake 2. Pain - Minimal at this point; oral pain regimen only 3. Diabetes - Continue home dose of metformin and home dose of lantus - Continue SSI with tight management 4. DVT prophylaxis - Continue SQ heparin this am - SCDs while in bed 5. GI prophylaxis - Continue protonix 40 mg PO daily 6. Discharge planning - Likely DC home the day after closure next week - Continue antibiotics per NICOLLE Huang 06:26; 09/19/2013 onversio n Transaction, Provider Unknown - 09/19/2013 4:43 AM PSTFormatting of this note might be di fferent from the original. Progress Notes by Ana Cardozo RN at 09/19/13442 Author: Ana Cardozo RN Service: (none) Author Type: Registered Nurse Filed: 09/19/13513 Date of Service: 09/19/13442 Status: Signed Treating Plant Supervisor: Ana Cardozo RN (Registered Nurse) NS Progress Note Brief Patient: Rebecca Castillo VSS, neuro unchanged this shift. Mild weakness of BLE, chronic peripheral neuropathy. Incis ional pain well controlled with Camilla. Wound vac with bloody-serosang drainage, dressing C/D /I. Ambulating in room with 1PA and FWW, gait steady. Voiding without difficulty. Calling ap propriately for assistance. Will continue to monitor. Ana Cardozo RN, 09/19/2013 5:14 AM Tavon Posada RN - 09/18/2013 9:07 PM PSTFormatting of this note might be different from t amy original. Progress Notes by Lion Rizzo RN at 09/18/132106 Author: Lion Rizzo RN Service: (none) Author Type: Registered Nurse Filed: 09/18/132106 Date of Service: 09/18/132106 Status: Signed Treating Plant Supervisor: Lion Rizzo RN (Registered Nurse) Problem: CARDIOVASCULAR - ADULT Goal: Absence of cardiac dysrhythmias or at baseline Outcome: PROGRESSING EXPECTED Heart rate up to 140-150, cardiac medications where held due to low heart rate, given digox in and acebutolol, HR down to 70-80, regular rhythm, vitals are stable, updated incoming RN. Sondra Durán RN - 09/18/2013 9:05 PM PSTFormatting of this note might be different from the origina l. Progress Notes by Lion Rizzo RN at 09/18/132104 Author: Lion Rizzo RN Service: (none) Author Type: Registered Nurse Filed: 09/18/132104 Date of Service: 09/18/132104 Status: Signed Treating Plant Supervisor: Lion Rizzo RN (Registered Nurse) Problem: PAIN - ADULT Goal: Verbalizes/displays adequate comfort level or baseline comfort level Outcome: PROGRESSING EXPECTED Pain adequately controlled with oxycodone and norco, lowest pain level at 3/10, patient up to bathroom, able to reposition self or dangle at bedside, ambulate with four wheeled walker . Problem: DISCHARGE PLANNING Goal: Discharge to home or other facility with appropriate resources Outcome: PROGRESSING EXPECTED PICC placed and verified, planned surgical closure next week. ntonio, Tim Heredia MD - 09/18/2013 6:17 PM PST Progress Notes by Tim Alvarez MD at 09/18/131816 Author: Tim Alvarez MD Service: (none) Author Type: Physician Filed: 09/18/131821 Date of Service: 09/18/131816 Status: Signed Treating Plant Supervisor: Tim Alvarez MD (Physician) Infectious Diseases Progress Note Rebecca Lua Jonathan 09/18/2013, Hospital Day # 3 Impression: 1. 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 Not toxic. Does not probe deeply and was superficial at debridement 09/16. Tolerating antibiotics. Has GPC and GNR. Antibiotics should be adequate 2. DM 3. Obesity 4. Hx afib Recommendations: 1. Ceftriaxone and vanco pending cultures - I will change antibiotics in the am based on e culture results. It will likely not be required to treat the enterococcus as it was in e superficial culture only and in small amount. 2. Will likely stop Contact isolation tomorrow 3. PICC for iv access in the hospital, not halfway iv antibiotics. Wound closure on Sat day 4. Dr. Solano is available to cover prn Sat and Sun only if called. Please call if new ID issues arise. I will see Saturday. Current Antibiotics: vanco and ceftriaxone Subjective: Stable Got PICC Vac on. Feels good. Objective: Temp: 36.2 C (97.2 F), BP: 130/80 mmHg, Heart Rate: 71 , Resp: 18 , SpO2: 9 8 %, O2 Liter Flow (1L or More): 2L/min, Weight: 92.534 kg (204 lb) General: In NAD Skin: Without rash IV: right PICC without inflammation Ext: No edema or tenderness VAC on the back wound. Lungs clear. CVS RRR abd NT Labs: Lab results (within last 13 months/9480 hours) Basename 09/18/13 0700 09/15/13 1559 WBC -- 9.0 RBC -- 4.33 HGB -- 13.4 HCT 32.2* -- MCV -- 92 MCH -- 30.9 MCHC -- 33.5 RDW -- 13.2 PLT -- 415*|415* POLYAP -- 63 POLYMP -- -- BNDSP -- -- LYMP -- 29 MONOP -- 6 EOSP -- 2 BASP -- 0 METAP -- -- MYELP -- -- PROMP -- -- BLASP -- -- NRBC -- -- OTH -- -- OTHP -- -- TXG -- -- BSTIP -- -- SPHR -- -- TRGC -- -- POIK -- -- POLY -- -- RMKD -- -- Lab results (within last 13 months/9480 hours) Basename 09/18/13 0700 09/17/13 0700 09/16/13 0925 09/15/13 1559 08/08/13 1220 NA -- -- -- 132* 135 K -- -- -- 4.9 4.4 CL -- -- -- 93* 99 TCO2 -- -- -- 27 28 BUN -- -- -- 48* 16 CR 0.66 0.77 0.92 -- -- GLUC -- -- -- 155* 227* Lab results (within last 13 months/9480 hours) Basename 09/15/13 1559 ESR 39 Lab results (within last 13 months/9480 hours) Basename 09/15/13 1559 CRP 2.9* Cultures: 12/3 wound: enterococcus and GNR growth as of this am. GPC and GNR on the stain. Operative cultures with GNR only. sensi pending Xray: None new Tim Alvarez MD [phone] onversion Transacti on, Provider Unknown - 09/18/2013 2:49 PM PSTFormatting of this note might be different fro m the original. Progress Notes by Nimisha Allen OT at 09/18/13 1449 Author: Nimisha Allen OT Service: (none) Author Type: Occupational Therapist Filed: 09/18/13 2034 Date of Service: 09/18/131448 Status: Signed Treating Plant Supervisor: Nimisha Allen OT (Occupational Therapist) Attempted to see patient for occupational therapy on this date. Patient refused 2/2 eating lunch and plans to have PICC line placed soon after. Will follow up tomorrow. onver evertet Transaction, Provider Unknown - 09/18/2013 2:27 PM PST Progress Notes by Arturo Roberto RD at 09/18/13 1427 Author: Arturo Roberto RD Service: (none) Author Type: Registered Dietitian Filed: 09/18/13 1526 Date of Service: 09/18/131426 Status: Signed Treating Plant Supervisor: Arturo Roberto RD (Registered Dietitian) Medical Nutrition Therapy 73 year old female with hx of lumbar surgery in July, now admitted with lumbar wound inf ection, POD #1 exploration and debridement, +wound vac. Nutrition consult received for asse ssment d/t wound infection. Visited pt at bedside this afternoon while pt was eating lunch. 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 Reviewed high protein foods (pt was knowledgeable about and able to l ist off recommended foods) and discussed increased needs r/t wound healing. Pt had been dri nking both Ensure and Boost at home and was agreeable receiving Boost Glucose Control BID to help increase protein intake for wound healing. Diet Order: Diabetic PO intake: 100% of meals GI: last BM 08/16 BMI: 34.7 indicating obesity See nutrition flowsheet for complete assessment parameters. Nutrition Diagnosis: Increased protein needs related to recent surgery as evidenced by woun d infection. Nutrition Intervention: 1. Reviewed high protein foods and increased needs d/t wound infection. 2. Sending Boost Glucose Control oral supplement BID as agreed upon with pt. Nutrition Monitoring & Evaluation: adequacy of PO intake, weight. RD to continue to follow with team. Arturo Roberto, RD, 09/18/2013 3:24 PM Phone [phone] Pager [phone] for weekdays (7:30 am - 4:00 pm) Pager [phone] for weekends (7:00 am - 3:30 pm) hannon Escalante RN-CWOCN - 09/18/2013 1:57 PM PST Progress Notes by Shannon Escalante RN, JORDAN at 09/18/13 5440 Author: Shannon Escalante RN, CWCN Service: (none) Author Type: Wound/Ostomy Nurse Filed: 09/18/13 1408 Date of Service: 09/18/13 7849 Status: Signed Treating Plant Supervisor: Shannon Escalante RN, CWCN (Wound/Ostomy Nurse) WOUND CARE EVAL "[id number] Brief history: patient's is s/p exploration and debridement of lumbar spine fusion on . Wound care was asked to assist in changing the VAC dressing. Patient is not acute distress is waiting to have a clean dressing put in her wound. Past Medical History Diagnosis Date Coronary artery disease High blood pressure A-fib Type II or unspecified type diabetes mellitus without mention of complication, not stat ed as uncontrolled Generalized osteoarthrosis, unspecified site HTN (hypertension) ```````````` Pertinent labs: Lab results (within last 13 months/9480 hours) Basename 09/18/13 0700 09/15/13 1559 ALB -- -- PREAL -- -- TPROT -- -- ALB -- -- HCT 32.2* -- WBC -- 9.0 Wound # site Type Wound size In (cm) lxwxd Stge Exudate Amount Color Odor Irina wound Tunnel Wound base Appearance Wound Present On Admit 1 Lumbar spine Superficial Wound infection 11x2x2 Full thick Small serosang No odor Attached clean none Red tissue With some white Pale fibrinous slough material noted n/a Goal: continue to keep the closed circuit NPWT system to help remove debris and help granul ate the wound. Plan / Treatment: She had her PRN pain med around the VAC change time. Wound was irrigated with saline then irina wound edges were Prepped for better suction seal, one piece granufoam used to address the wound base then olson ction re started at - 125 mmhg at continuous rate after the transparent drape applied. Pleas e continue to encourage protein intake for tissue repair. Base line nutritional lab value no t in chart, may need to establish a base line profile. Wound Related Pain Issues: she tolerated the VAC sponge change. Pain prn per JORDI smith Patient Education/Notes: need to keep wound protected explained. Shannon Escalante RN, CWCN Manasa Lane ARNP - 09/18/2013 6:34 AM PSTFormatting of this note might be different from the origin al. Progress Notes by Manasa Ortega ARNP at 09/18/13633 Author: Manasa Ortega ARNP Service: (none) Author Type: Nurse Practitioner Filed: 09/18/13 0816 Date of Service: 09/18/13633 Status: Signed Treating Plant Supervisor: Manasa Ortega ARNP (Nurse Practitioner) Neurosurgery Progress Note ID: Rebecca Castillo; 73 y.o. female Location: [id number]/[id number] Attending Yong Pena MD Hospital Day # 3 PCP Jesus Mijares Procedure: 1. Exploration of spinal fusion. 2. Placement of a wound vacuum. Post Operative Day # 2 Subjective Ms. Castillo reports she is doing better with improving pain control. She does feel like a pi n cushion from the IV sticks but notes the PICC line will help with that. Wound vac to be c hanged today at bedside and understands the procedure. Objective VS: Blood pressure 153/70, temperature 36.6 C (97.8 F), resp. rate 18, height 163.2 cm (5' 4.25"), weight 92.534 kg (204 lb), SpO2 95.00%.Temp (24hrs), Av.6 C (97.9 F), M in:36.3 C (97.3 F), Max:36.9 C (98.4 F) Cardiac Rhythm (monitored Pts.): Normal sinus rhythm I/O: Intake/Output Summary (Last 24 hours) at 09/18/13 0634 Last data filed at 09/17/13 1500 Gross per 24 hour Intake 860 ml Output 0 ml Net 860 ml General: healthy, alert and in no distress Neuro: Awake, alert and oriented x 3; Cranial nerves II-XII grossly intact; Reflexes symmet rical; Motor intact with BUE and BLE 5/5; Sensation intact to soft touch. Wound: wound vacuum in place Labs: Lab results (within last 13 months/9480 hours) Basename 09/17/13 0700 09/15/13 1559 WBC -- 9.0 HGB -- 13.4 HGBPOC -- -- HCT 32.6* -- HCTPOC -- -- PLT -- 415*|415* NA -- 132* NAPOC -- -- K -- 4.9 KPOC -- -- CL -- 93* CLPOC -- -- HCO3 -- -- [id number] -- -- BUN -- 48* BUNPOC -- -- CR 0.77 -- GLUC -- 155* GLUCPOC -- -- Lab results (within last 13 months/9480 hours) Basename 09/15/13 1559 INR 1.0 PT 10.9 PTT 29.6 No results found for this basename: DPHTOTAL in the last 9480 hours Assessment/Plan: 1. S/P exploration of spinal fusion and placement of a wound vacuum. - Continue wound vac @ [address] on changing todayat bedside by wound care nurse - superficial and should only need m inimal IV sedation - IV morphine is ordered for a prn basis. * Closure by Dr. Degroot on Saturday * - Appreciate Dr. Alvarez following with ID recommendations - PT/OT - OOB with meals & Ambulate TID - Continue bowel medications - Push IS - 10x hourly while awake 2. Pain - Minimal at this point; oral pain regimen only 3. Diabetes - Restart home dose of metformin today - Continue home dose of lantus - Continue SSI with tight management 4. DVT prophylaxis - Hold SQ heparin this am - SCDs while in bed 5. GI prophylaxis - Continue protonix 40 mg PO daily 6. Discharge planning - Likely DC home the day after closure next week - Continue antibiotics per Dr. Antonio Ortega SENIOR SQL SERVER DATABASE DEVELOPER 06:34; 09/18/2013 onversio n Transaction, Provider Unknown - 09/17/2013 5:12 PM PSTFormatting of this note might be di fferent from the original. Progress Notes by Priscila Prado PT at 09/17/131711 Author: Priscila Prado PT Service: (none) Author Type: Physical Therapist Filed: 09/17/131718 Date of Service: 09/17/131711 Status: Signed Treating Plant Supervisor: Priscila Prado PT (Physical Therapist) PHYSICAL THERAPY MED/SURG RE-EVALUATION Duration of Session Time In: 1600 Time Out: 1630 PATIENT PROFILE Diagnosis: Post-traumatic seroma [729.91] (Post-traumatic seroma ) Seroma complicating a procedure [998.13] Surgery/Procedure: Procedure(s) with comments: I&D SPINE THORACIC/LUMBAR /SACRAL - 36659 L4-5 SPINAL FUSION EXPLORATION; No Removal of Taye dware (C-ARM Avail, PRONE on WENDY, WOUND VAC, ORTHOPEDIC PLUSE LAVAGE, 3 - 3 LITER BAGS) Surgery Date: 09/16/13 Precautions: Cleared for OOB: Yes Spinal Surgery Precautions: General spine surgery wound vac SOCIAL HISTORY Living Environment: Patient lives with in [place], [place] ([facility] available to provid e assistance 06/05) in single level home with 6-8 stairs to enter with single raling to enter . Walk in shower with shower chair. Prior Level of Functioning: Modified independent ambulating with 4WW. Current Adaptive Equipment: 4WW, shower chair. Patient Comment: Oh, I feel much better after they get all that infection out. Patient Goal: to get better and go home EXAMINATION Range of Motion: BUE/BLE AROM grossly WFL Strength: all extremities WFL, move against gravity Sensation: intact to light touch in BLE Skin/Edema: wound vac intact6 Coordination: NT Balance: static sitting = F Static standing = F Cognition: A and O x 4 Tremors noted, pt reporting this is her baseline. FUNCTIONAL STATUS ACTIVITY LEVEL OF ASSIST COMMENT Bed Mobility SBA Supine <> sit via log rolling, extra time needed Transfers SBA Sit <> stand with 4WW Gait/Mobility CGA - SBA With FWW, x 100', gait appear slow, however, overall steady, with n o LOB Stairs Pt declining with stair training, feels that she is not ready. Deferred to next ses [place]. Today's Treatment: RE-eval post wound debridement. PT reviewed spinal precautions, pt able to verbalize 3/3 precautions. ASSESSMENT Pain Assessment during therapy session Location of pain: pt reporting mininal pain. Impairments/Functional Limitation: Mobility appeared to be similar to baseline, prior to wo und debridement, and pt does demo improved activity tolerance and less painful. Extra time n eeded with all tasks as this time, likely 2' to fear of onset of pain. Anticipate pt will co ntinue to progress with recovery and frequent mobilization. Discharge recommendation: anticipate home with PLAN OF CARE Intervention: Balance Re-education, Bed Mobility, Gait, Home Exercise Program, Patient/tire groover Training, Transfers, Therapeutic Exercise Frequency: treat 1-2 more times to ensure safety PHYSICAL THERAPY GOAL(S) By discharge patient will perform the following: BED MOBILITY: Modified independence FUNCTIONAL TRANSFERS: Modified independence using 4 wheel walker GAIT: 150 feet with Supervision using 4 wheel walker STAIRS: 8, using 1 railing(s) with CGA using single point cane and unilateral HR Plan for next visit: Progressive gait, stairs and family training PT/FINANCIAL ANALYSIS ADVISOR order assistive devices prn Risks and benefits of treatment reviewed with patient/family and they agree with plan of ca re: Yes Nya Salter [facility] - 09/17/2013 4:14 PM PSTFormatting of this note might be different from the or iginal. Progress Notes by Nya Bean RPh at 09/17/13 1614 Author: Nya Bean RPh Service: (none) Author Type: Pharmacist Filed: 09/17/13 1616 Date of Service: 09/17/13 1614 Status: Signed Treating Plant Supervisor: Nya Bean RPh (Pharmacist) Vancomycin dosing per Pharmacy: Trough level today before 4th dose=21.9. Held 1300 dose. Vancomcyin decreased to 1.25Gm iv q12h to start at 2100. Next level to be drawn 09/19 0800. Nya Bean RPH, 09/17/2013 4:16 PM Shannon Lew RN-C WOCN - 09/17/2013 1:15 PM PST Progress Notes by Shannon Escalante RN, JORDAN at 09/17/13 1315 Author: Shannon Escalante RN, CWCN Service: (none) Author Type: Wound/Ostomy Nurse Filed: 09/17/13 1316 Date of Service: 09/17/13 1315 Status: Signed Treating Plant Supervisor: Shannon Escalante RN, CWCN (Wound/Ostomy Nurse) Wound Care - request to see patient for VAC dressing change noted. Her wound VAC is functio cady well with out leaks at present time. onversion Tra nsaction, Provider Unknown - 09/17/2013 11:52 AM PSTFormatting of this note might be differe nt from the original. Progress Notes by Nimisha Allen OT at 09/17/13 1152 Author: Nimisha Allen OT Service: (none) Author Type: Occupational Therapist Filed: 09/17/13 1204 Date of Service: 09/17/13 1152 Status: Signed Treating Plant Supervisor: Nimisha Allen OT (Occupational Therapist) OCCUPATIONAL THERAPY RE-EVALUATION Duration of Session Time In: 11:25 Time Out: 11:50 PATIENT PROFILE Diagnosis: Post-traumatic seroma [729.91] (Post-traumatic seroma ) Seroma complicating a procedure [998.13] Surgery/Procedure: Procedure(s) with comments: I&D SPINE THORACIC/LUMBAR /SACRAL - 12234 L4-5 SPINAL FUSION EXPLORATION; No Removal of Taye dware (C-ARM Avail, PRONE on WENDY, WOUND VAC, ORTHOPEDIC PLUSE LAVAGE, 3 - 3 LITER BAGS) Surgery Date: 09/16/13 Precautions: Cleared for OOB: Yes Contact Spinal Surgery Precautions: General spine surgery Patient Comment: "I'm a little shaky, but I just had surgery yesterday." Patient Goal: home when medically stable EXAMINATION Cognitive Function: Alert, oriented, pleasant, appropriate, follows multi step commands Upper Extremity Function WFL for strength and ROM, continues to have tremors in BUEs L more than R. ACTIVITY RESPONSE Position or Activity Supine after activity BP 154/70 HR Sp02 FUNCTIONAL STATUS ACTIVITIES OF DAILY LIVING LEVEL OF ASSIST COMMENT Self Feeding Independent Cup to mouth Grooming CGA Standing at sink for hand hygiene Bathing NT Dressing-Upper Minimal assist To Don robe Dressing-Lower Stand by assist Seated with LE on bed with good carryover of spinal precaut ions for socks Toileting CGA Utilizes grab bar Functional Transfers CGA: sit to stand Stand by assist: supine to sit Increased time Higher Living Skills Educated patient on pacing and building activity tolerance for OOB ac tivity, ADLs, and home mobility. Patient CGA with RW for mobility in room and echeverria with limi jodi activity tolerance 2/2 pain and fatigue Today's Treatment: Eval, Therapeutic Activities: Patient tolerated about 7-[address] anding and with mobility using 4WW and CGA to build activity tolerance with standing ADLs an d home mobility. Discussed LB dressing techniques with carryover of spinal precautions. ASSESSMENT Pain Assessment during therapy session Patient c/o pain 2/10 Location of pain: surgical site Pain therapy interventions used: deep breathing and relaxation and repositioning and elevat ion Impairments/Functional Limitation: Patient is currently limited by pain, spinal precaution s, impaired activity tolerance, BUE tremors, and overall decreased functional independence w ith ADLs and transfers. Patient will benefit from skilled occupational therapy to increase f unctional independence and safety. Discharge recommendations: Home with HHOT/PT PLAN OF CARE Interventions: ADL's, Energy Conservation/Pacing, Home Safety Assessment, Functional Transf ers, Patient/Caregiver Training Frequency: Treat 5 times per week OCCUPATIONAL THERAPY GOAL(S) By discharge patient will perform the following: GROOMING: Modified independence DRESSING: Modified independence BATHING: Supervision TOILETING: Modified independence TRANSFERS: -- Toilet: Modified independence Plan for next visit: Progress OOB activity tolerance with grooming and ADLs OT/CHASE order assistive devices prn Risks and benefits of treatment reviewed with patient/family and they agree with plan of ca re: Yes Tavon Posada RN - 09/17/2013 11:26 AM PSTFormatting of this note might be different from t he original. Progress Notes by Lion Rizzo RN at 09/17/131125 Author: Lion Rizzo RN Service: (none) Author Type: Registered Nurse Filed: 09/17/131125 Date of Service: 09/17/131125 Status: Signed Treating Plant Supervisor: Lion Rizzo RN (Registered Nurse) Problem: SKIN/TISSUE INTEGRITY - ADULT Goal: Incision(s), wounds(s) or drain site(s) healing without S/S of infection Outcome: PROGRESSING EXPECTED Wound vac functioning, green light on, continuous suction at 125 mmhg. Problem: PAIN - ADULT Goal: Verbalizes/displays adequate comfort level or baseline comfort level Outcome: PROGRESSING EXPECTED Pain adequately controlled with oral analgesics. Problem: INFECTION - ADULT Goal: Absence of infection during hospitalization Outcome: PROGRESSING EXPECTED Deep wound culture shows no growth to date, FIRST ASSISTANT recommends PICC while on vancomycin IV, w ill inform ID physician tomorrow, new IV placed. onversion Trans action, Provider Unknown - 09/17/2013 11:18 AM PST Progress Notes by Zoë Valencia at 09/17/131117 Author: Zoë Valencia Service: (none) Author Type: International Affairs Vice President Filed: 09/17/13 1129 Date of Service: 09/17/131117 Status: Signed Treating Plant Supervisor: Zoë Valencia (International Affairs Vice President) Medical Nutrition Therapy BMI: 34.74, obese Positive nutrition admit screen for eating poorly and weight loss prior to admission. Fine appetite per patient. Patient's eating 100% of food served. Has had weight loss of 1 5-20 lbs over last month due to lumbar surgery last Jul 2013. Offered oral nutrition supple ments to increase nutrition and she wants to order her own supplements as needed. Encourage and monitor PO intake. Encourage small frequent meals and snacks. Continue to monitor progress and follow per protocol. See nutrition flowsheet for complete assessment parameters. Zoë Valencia at 11:29 on 09/17/2013 onver [place] Transaction, Provider Unknown - 09/17/2013 10:49 AM PST Progress Notes by Kelly Hanson RN at 09/17/13 1040 Author: Kelly Hanson RN Service: (none) Author Type: Staple Processing Machine Operator Filed: 09/17/13 1104 Date of Service: 09/17/13 1043 Status: Signed Treating Plant Supervisor: Kelly Hanson RN (Staple Processing Machine Operator) Case Management Discharge Planning Assessment 10:50; 09/17/2013 Patient Rebecca Castillo is a 73 y.o. female Discussion: Reviewed chart and discussed patient in multidisciplinary rounds. I met with Mr radha Castillo to introduce myself and the role of case management. Mrs Castillo lives in [facility] with her and adult daughter who are both helpful and supportiv. Her home is on e level and has [address]. She is 6 weeks out from a spinal fusion and presents here for an infection in the surgical site. Prior to her July surgery, she was independent in her ADL's but she was not doing her own driving, relying instead on her family for transpor tation. She has a cane and a walker at home which she uses mostly when she is out of the [facility]. She has safety accommodations in the bathroom, including a handicap toilet and a shower seat. She also uses a Rascal power chair which she has had for the past year. Presently, she is on IV antibiotics and has a wound vac. She is anticipating a PICC to be placed today, th e wound vac removed on Saturday, and a tentative DC date of Sep 23. Her is staying here in the [facility] [place]. Her will be her transportation upon discharge. Discharge Planning Options Discharge Disposition Options: Home;SNF;To be determined Discharge Support Options: HHC;To be determined Plan: Home with family Resources/Education provided: None at this time Interventions: Case Mgmt Team Interventions: Care coordination;Chart review/screening;D/C planning initial assessment Diagnosis: Post-traumatic seroma [729.91] (Post-traumatic seroma ) Seroma complicating a procedure [998.13] Co-Morbidity/Complications: Past Medical History Diagnosis Date Coronary artery disease High blood pressure A-fib Type II or unspecified type diabetes mellitus without mention of complication, not stat ed as uncontrolled Generalized osteoarthrosis, unspecified site HTN (hypertension) ```````````` Surgery/Procedures: Procedure(s): I&D SPINE THORACIC/LUMBAR /SACRAL Past Surgical History Procedure Date Appendectomy Tonsillectomy Hysterectomy Ugi endoscopy stent placement Upper GI endoscopy for acid reflux Other gastroenterology esophageal "wrapping" for GERD Abdomen surgery rina Advance Directive Information Advance Directive?: None Advance Directive Offered: AD Booklet refused Is this a readmission?: No Pre-Admit Baseline : Lives with: family Receives help from: family and friends Current Providers/Agencies: not at this time Prior to admit, the patient was: Living at home with others Mobility prior to admit: Modified Independent DME and/or supplies at residence FINANCIAL ANALYSIS ADVISOR: Cane or walker (comment);Bedside commode/shower chair (comment) PCP: Per chart review Jesus Mijares Principle Payors: Per chart review Payor: MEDICARE Plan: MEDICARE PART A AND B Product Type: *No Product type* Primary Contact Information: Extended Emergency Contact Information Primary Emergency Contact: Oniel Castillo Address: [address] [address] [facility] [place] Relation: Spouse Secondary Emergency Contact: Debbie Selby [facility] [place] Relation: Daughter Chart reviewed and Case Management to follow and assist with discharge planning and inpatie nt management as needed Nazia Hanson, RN, BSN Nurse Film Numberer [facility] Pager [phone] oTim chicas MD - 09/17/2013 10:05 AM PSTFormatting of this note might be different from the o riginal. Progress Notes by Tim Alvarez MD at 09/17/13 1005 Author: Tim Alvarez MD Service: (none) Author Type: Physician Filed: 09/17/13 2933 Date of Service: 09/17/13 1005 Status: Signed Treating Plant Supervisor: Tim Alvarez MD (Physician) Infectious Diseases Progress Note Rebecca Castillo 09/17/2013, Hospital Day # 2 Impression: 1. 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 Not toxic. Does not probe deeply and was superficial at debridement 09/16. Tolerating antibiotics. Has GPC and GNR. Antibiotics should be adequate 2. DM 3. Obesity 4. Hx afib Recommendations: 1. Ceftriaxone and vanco pending cultures 2. Contact isolation until cultures back (Hospital policy) 3. she will need a PICC for iv access in the hospital, not termite control servicer iv antibiotics. Wound closure on Saturday 4. If loses iv access overnight, will hold on more vanco until a PICC in and give 1gm ceftr iaxone in the am instead of 2gm iv Current Antibiotics: vanco and ceftriaxone Subjective: Stable after surg yesterday. Vac on. Feels good. Objective: Temp: 36.3 C (97.3 F), BP: 128/52 mmHg, Heart Rate: 60 , Resp: 18 , SpO2: 9 3 %, O2 Liter Flow (1L or More): 2L/min, Weight: 92.534 kg (204 lb) General: In NAD Skin: Without rash IV: without inflammation Ext: No edema or tendern ess VAC on the back wound. Lungs clear. CVS RRR abd NT Labs: Lab results (within last 13 months/9480 hours) Basename 09/17/13 0700 09/15/13 1559 WBC -- 9.0 RBC -- 4.33 HGB -- 13.4 HCT 32.6* -- MCV -- 92 MCH -- 30.9 MCHC -- 33.5 RDW -- 13.2 PLT -- 415*|415* POLYAP -- 63 POLYMP -- -- BNDSP -- -- LYMP -- 29 MONOP -- 6 EOSP -- 2 BASP -- 0 METAP -- -- MYELP -- -- PROMP -- -- BLASP -- -- NRBC -- -- OTH -- -- OTHP -- -- TXG -- -- BSTIP -- -- SPHR -- -- TRGC -- -- POIK -- -- POLY -- -- RMKD -- -- Lab results (within last 13 months/9480 hours) Basename 09/17/13 0700 09/16/13 0925 09/15/13 1559 08/08/13 1220 NA -- -- 132* 135 K -- -- 4.9 4.4 CL -- -- 93* 99 TCO2 -- -- 27 28 BUN -- -- 48* 16 CR 0.77 0.92 1.54* -- GLUC -- -- 155* 227* Lab results (within last 13 months/9480 hours) Basename 09/15/13 1559 ESR 39 Lab results (within last 13 months/9480 hours) Basename 09/15/13 1559 CRP 2.9* Cultures: 09/15 wound: Coliform and GNR growth as of this am. GPC and GNR on the stain Xray: None new Tim Alvarez MD [phone] age, TAMAR Berry ELECTRIC LOCOMOTIVE FIRER/FIREMAN - 09/17/2013 6:45 AM PST Progress Notes by Manasa Ortega ARNP at 09/17/1362 Author: Manasa Ortega ARNP Service: (none) Author Type: Nurse Practitioner Filed: 09/17/13 1102 Date of Service: 09/17/13644 Status: Addendum Treating Plant Supervisor: Manasa Ortega ARNP (Nurse Practitioner) Related Notes: Original Note by Manasa Ortega ARNP (Nurse Practitioner) filed at 02/23 1100 Neurosurgery Progress Note ID: Rebecca Castillo; 73 y.o. female Location: [id number] Attending Yong Pena MD Hospital Day # 2 PCP Jesus Mijares Procedure: 1. Exploration of spinal fusion. 2. Placement of a wound vacuum. Post Operative Day # 2 Subjective Ms. Castillo reports she is feeling much better since the surgery noting the hip and back pain are both improved. She has been up walking and denies any difficulty with ambulation. Objective VS: Blood pressure 140/72, temperature 36.6 C (97.8 F), resp. rate 18, height 163.2 cm (5' 4.25"), weight 92.534 kg (204 lb), SpO2 97.00%.Temp (24hrs), Av.4 C (97.6 F), M in:36.1 C (96.9 F), Max:36.8 C (98.2 F) Cardiac Rhythm (monitored Pts.): Normal sinus rhythm I/O: Intake/Output Summary (Last 24 hours) at 09/17/13 0645 Last data filed at 09/17/13 0600 Gross per 24 hour Intake 3300 ml Output 1100 ml Net 2200 ml General: healthy, alert and in no distress Neuro: Awake, alert and oriented x 3; Cranial nerves II-XII grossly intact; Reflexes symmet rical; Motor intact with BUE and BLE 5/5; Sensation intact to soft touch. Wound: wound vac in place Labs: Lab results (within last 13 months/9480 hours) Basename 09/16/13 0925 09/15/13 1559 WBC -- 9.0 HGB -- 13.4 HGBPOC -- -- HCT -- 40.0 HCTPOC -- -- PLT -- 415*|415* NA -- 132* NAPOC -- -- K -- 4.9 KPOC -- -- CL -- 93* CLPOC -- -- HCO3 -- -- [id number] -- -- BUN -- 48* BUNPOC -- -- CR 0.92 -- GLUC -- 155* GLUCPOC -- -- Lab results (within last 13 months/9480 hours) Basename 09/15/13 1559 INR 1.0 PT 10.9 PTT 29.6 No results found for this basename: DPHTOTAL in the last 9480 hours Assessment/Plan: 1. S/P exploration of spinal fusion and placement of a wound vacuum. - Continue wound vac @ [address] on changing tomorrow at bedside by wound care nurse - superficial and should only ne ed minimal IV sedation * Change Saturday and closure by Dr. Degroot on Saturday * - Appreciate Dr. Alvarez following with ID recommendations - PT/OT - OOB with meals & Ambulate TID - Continue bowel medications - Push IS - 10x hourly while awake 2. Pain - DC GROUP PROGRAM MANAGER - Oral pain regimen only 3. MARTIN (resolved) - Likely related to dehydration and significantly improved with gentle fluids 4. Diabetes - Hold metformin today - resume tomorrow - Restart lantus - Continue SSI with tight management 5. DVT prophylaxis - Start SQ heparin today at 1400 - SCDs while in bed 6. GI prophylaxis - Continue protonix 40 mg PO daily 7. Discharge planning - Likely DC home the day after closure next week - Continue antibiotics per Dr. Antonio Ortega [facility] 06:45; 09/17/2013 Brittani Harp RN - 09/17/2013 4:23 AM PSTFormatting of this note might be different from the or iginal. Progress Notes by Brittani Mckeon RN at 09/17/13422 Author: Brittani Mckeon RN Service: (none) Author Type: Registered Nurse Filed: 09/17/13 0529 Date of Service: 09/17/13422 Status: Signed Treating Plant Supervisor: Brittani Mckeon RN (Registered Nurse) [facility] Progress Note Brief Patient: Rebecca Lua Jonathan BLE 5/5. Wound vac continuous suction at 125 mmhg, bloody drainage. Output 50 ml over NOC shift. OOB with 1 PA and 4 wheeled walker. Incisional pain 6/10 when ambulating. Transit ioned to oral pain meds. Dilaudid GROUP PROGRAM MANAGER weaned at 0500. Used 5.6 mg overnight. Voiding witho ut difficulty, PVR 89 and 44. Brittani Mckeon RN, 09/17/2013 5:27 AM Tim Fernandez M D - 09/16/2013 9:13 PM PST Progress Notes by Tim Alvarez MD at 09/16/132112 Author: Tim Alvarez MD Service: (none) Author Type: Physician Filed: 09/16/132115 Date of Service: 09/16/132112 Status: Signed Treating Plant Supervisor: Tim Alvarez MD (Physician) Infectious Diseases Progress Note Rebecca Lua Jonathan 09/16/2013, Hospital Day # 1 Patient seen at about 10:30 this am Impression: 1. 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 Not toxic. Does not probe deeply. Might not involve hardware. Tolerating antibiotics 2. DM 3. Obesity 4. Hx afib Recommendations: 1. Ceftriaxone and vanco pending cultures 2. Contact isolation until cultures back (Hospital policy) 3. If this goes to bone or hardware, she will likely need a PICC and iv antibiotics. Surg today Current Antibiotics: vanco and ceftriaxone Subjective: Stable overnight. For afternoon surgery Objective: Temp: 36.8 C (98.2 F), BP: 137/68 mmHg, Heart Rate: 60 , Resp: 16 , SpO2: 1 00 %, O2 Liter Flow (1L or More): 3L/min, Weight: 92.534 kg (204 lb) General: In NAD Skin: Without rash IV: without inflammation Ext: No edema or tendern ess Labs: Lab results (within last 13 months/9480 hours) Basename 09/15/13 1559 WBC 9.0 RBC 4.33 HGB 13.4 HCT 40.0 MCV 92 MCH 30.9 MCHC 33.5 RDW 13.2 PLT 415*|415* POLYAP 63 POLYMP -- BNDSP -- LYMP 29 MONOP 6 EOSP 2 BASP 0 METAP -- MYELP -- PROMP -- BLASP -- NRBC -- OTH -- OTHP -- TXG -- BSTIP -- SPHR -- TRGC -- POIK -- POLY -- RMKD -- Lab results (within last 13 months/9480 hours) Basename 09/16/13 0925 09/15/13 1559 08/08/13 1220 NA -- 132* 135 K -- 4.9 4.4 CL -- 93* 99 TCO2 -- 27 28 BUN -- 48* 16 CR 0.92 1.54* 0.97 GLUC -- 155* 227* Lab results (within last 13 months/9480 hours) Basename 09/15/13 1559 ESR 39 Lab results (within last 13 months/9480 hours) Basename 09/15/13 1559 CRP 2.9* Cultures: PP growth as of this am. GPC and GNR on the stain Xray: None new Tim Alvarez MD [phone] hMarizol martinez RN - 09/16/2013 5:15 PM PST Progress Notes by Marizol Munson RN at 09/16/131714 Author: Marizol Munson RN Service: (none) Author Type: Registered Nurse Filed: 09/16/131956 Date of Service: 09/16/131714 Status: Signed Treating Plant Supervisor: Marizol Munson RN (Registered Nurse) [facility] Arrival Note Patient: Rebecca Castillo Arrival time: 1714 From: PACU to room 545. Belongings verified with the patient: Yes - see flowsheet Last VS: Temp: 36.8 C (98.2 F), BP: 137/68 mmHg, Heart Rate: 60 , Resp: 16 , SpO2: 100 %, O2 Liter Flow (1L or More): 3L/min, Weight: 92.534 kg (204 lb). Admission Wt:92.534 kg ( 204 lb) Skin intact: Yes PU Prevention Specialty Bed: In use Time of last pain med: PACU. Started on GROUP PROGRAM MANAGER Lines and drains: Wound vac Current IV: normal saline at 100cc/hr Current nursing problems: Mobility, pain control, postop care Patient orientation: to call light to telephone and television to general hospital information to plan for the day [facility] centralized monitoring initiated Marizol Munson RN, 09/16/2013 7:55 PM Kathleen Jean MS W - 09/16/2013 3:56 PM PST Progress Notes by Kathleen Eastman MSW at 09/16/13 6246 Author: Kathleen Eastman MSW Service: (none) Author Type: Net Programmer Filed: 09/16/13 5732 Date of Service: 09/16/13 1556 Status: Signed Treating Plant Supervisor: Kathleen Eastman MSW (Net Programmer) Case Management Discharge Planning Assessment 15:56; 09/16/2013 Patient Rebecca Castillo is a 73 y.o. female who lives in [facility], [place] who is admitted for spinal fusion exploration. Discussion: APRIL consulted with multidisciplinary team during patient rounds and conducted a chart review to complete this initial discharge planning assessment. Discharge Planning Options Discharge Disposition Options: Home;SNF;To be determined Discharge Support Options: HHC;To be determined Plan: Pt to discharge home with HHC and spouse to assist versus SNF versus to be determined after post-operative evaluation Resources/Education provided: N/A Interventions: Case Mgmt Team Interventions: Care coordination;Chart review/screening;Consult with [facility] are team;D/C planning initial assessment Diagnosis: Post-traumatic seroma [729.91] (Post-traumatic seroma ) Seroma complicating a procedure [998.13] Co-Morbidity/Complications: Past Medical History Diagnosis Date Coronary artery disease High blood pressure A-fib Type II or unspecified type diabetes mellitus without mention of complication, not stat ed as uncontrolled Generalized osteoarthrosis, unspecified site Surgery/Procedures: Procedure(s): I&D SPINE THORACIC/LUMBAR /SACRAL Past Surgical History Procedure Date Appendectomy Tonsillectomy Hysterectomy Ugi endoscopy stent placement Upper GI endoscopy for acid reflux Other gastroenterology esophageal "wrapping" for GERD Abdomen surgery rina Advance Directive Information Advance Directive?: None Advance Directive Offered: AD Booklet refused Is this a readmission?: No Pre-Admit Baseline : Lives with: spouse Receives help from: spouse Current Providers/Agencies: Medicare A & B, [facility] Prior to admit, the patient was: Living at home with others Mobility prior to admit: Modified Independent DME and/or supplies at residence FINANCIAL ANALYSIS ADVISOR: Cane or walker (comment);Bedside commode/shower chair (comment) PCP: Per chart review Jesus Mijares Principle Payors: Per chart review Payor: MEDICARE Plan: MEDICARE PART A AND B Product Type: *No Product type* Primary Contact Information: Extended Emergency Contact Information Primary Emergency Contact: Oniel Castillo Address: [address] [place] [address] [facility] Relation: Spouse Secondary Emergency Contact: Debbie Selby [facility] Relation: Daughter Patient is being followed by Case Management APRIL Arias onversion Transa ction, Provider Unknown - 09/16/2013 10:42 AM PST Progress Notes by Nimisha Allen OT at 09/16/13 1042 Author: Nimisha Allen OT Service: (none) Author Type: Occupational Therapist Filed: 09/16/13 1147 Date of Service: 09/16/13 104 Status: Signed Treating Plant Supervisor: Nimisha Allen OT (Occupational Therapist) OCCUPATIONAL THERAPY EVALUATION Duration of Session Time In: 10:05 Time Out: 10:30 PATIENT PROFILE Diagnosis: Post-traumatic seroma [729.91] (Post-traumatic seroma ) Seroma complicating a procedure [998.13] Surgery/Procedure: Procedure(s) with comments: I&D SPINE THORACIC/LUMBAR /SACRAL - 44837 L4-5 SPINAL FUSION EXPLORATION; No Removal of Taye dware (C-ARM Avail, PRONE on WENDY, WOUND VAC, ORTHOPEDIC PLUSE LAVAGE, 3 - 3 LITER BAGS) Surgery Date: 08/07/13, surgery scheduled for later today for debridement and exploration Precautions: Cleared for OOB: Yes Contact Spinal Surgery Precautions: General spine surgery SOCIAL HISTORY Living Environment: Patient lives with in [place], [place] in single level home with 6 -8 stairs to enter. Patient reports that she has a walk in shower and will be availa ble for assistance with d/c home. Prior Level of Functioning: Mod I-utilized 4WW for mobility. Patient reports she was I with ADLs, used shower chair with bathing. Current Adaptive Equipment: 4WW, shower chair Patient Comment: "I just hope I don't have to go through this again." Patient Goal: home EXAMINATION Cognitive Function Alertness: alert Behavior: pleasant, appropriate, cooperative Orientation: ox 4 Safety Awareness/Problem Solving: intact, aware of precautions and functional carryover Verbal/Motor Response to Commands: follows 1-2 step commands Visual/Perceptual: glasses Upper Extremity Function Range of Motion: WFL Motor Control/Tone: WFL Coordination: FMC impaired 2/2 intention tremor greater in L than R Sensation: intact to LT Edema: incision covered FUNCTIONAL STATUS ACTIVITIES OF DAILY LIVING LEVEL OF ASSIST COMMENT Self Feeding Independent Grooming SBA Standing at sink for hand hygiene Bathing NT Dressing-Upper NT Dressing-Lower SBA Increased time and effort, jonah sitting, socks Toileting NT Functional Transfers SBA: sit to stand Higher Living Skills Reviewed spinal precautions and energy conservation with patient and spouse. Patient verbalizes good carryover. Educated patient on energy conservation and build ing activity tolerance with OOB activity and mobility post op. Today's Treatment: Eval ASSESSMENT Pain Assessment during therapy session Patient c/o pain 4/10 Location of pain: low back Pain therapy interventions used: deep breathing and relaxation and repositioning and elevat ion Impairments/Functional Limitation: Patient evaluated for independence with ADLs and functi onal transfers pre surgery. Patient demonstrates good understanding of spinal precautions wi th ADLs and is SBA with standing ADLs and functional transfers. Patient will re-evaluation f unctional independence post op. Discharge recommendations: Will need to re-evaluation post op PLAN OF CARE Interventions: ADL's, Energy Conservation/Pacing, Home Safety Assessment, Functional Transf ers, Patient/Caregiver Training Frequency: Treat 5 times per week OCCUPATIONAL THERAPY GOAL(S) By discharge patient will perform the following: GROOMING: Modified independence DRESSING: Modified independence BATHING: Supervision TOILETING: Supervision TRANSFERS: -- Toilet: Modified independence Plan for next visit: Re-evaluate function, progress self care for OT POC OT/CHASE order assistive devices prn Risks and benefits of treatment reviewed with patient/family and they agree with plan of ca re: Yes ya Bean RP - 09/16/2013 8:32 AM PSTFormatting of this note might be different from the or iginal. Progress Notes by Nya Bean RPh at 09/16/13831 Author: Nya Bean RPh Service: (none) Author Type: Pharmacist Filed: 09/16/13 1152 Date of Service: 09/16/13831 Status: Addendum Treating Plant Supervisor: Nya Bean RPh (Pharmacist) Related Notes: Original Note by Nya Bean RPh (Pharmacist) filed at 09/16/13840 Vancomycin dosing per Pharmacy: 73yo pt with post-op lumbar wound infection. Vancomycin trough goal=15-20. Wt=93 kg, SCr=1.54, CrCl=approximately 38ml/min Vancomycin 1750mg x 1 loading dose given 1900 09/15, then 1.5Gm iv q24h ordered (16mg/kg) Will check level before 3rd dose. Nya Bean RPH, 09/16/2013 8:37 AM Renal function has improved. SCr this am=0.92, CrCl=62ml/min Will increase vancomycin to 1.5Gm iv q12h. Will check level before 4th dose. Nya Bean RPH, 09/16/2013 11:52 AM anasa Ortega ARN P - 09/16/2013 6:42 AM PST Progress Notes by Manasa Ortega ARNP at 09/16/13641 Author: Manasa Ortega ARNP Service: (none) Author Type: Nurse Practitioner Filed: 09/16/13813 Date of Service: 09/16/13641 Status: Signed Treating Plant Supervisor: Manasa Ortega ARNP (Nurse Practitioner) Neurosurgery Progress Note ID: Rebecca Castillo; 73 y.[facility]. female [facility] Attending Yong Pena MD Hospital Day # 1 PCP Jesus Mijares Ms. Castillo reports she is quite tired, but otherwise feels ok. Denies significant pain but has not been very mobile. Confirms NPO since midnight. Objective VS: Blood pressure 122/55, temperature 36.1 C (97 F), resp. rate 18, height 163.2 cm ( 5' 4.25"), weight 92.534 kg (204 lb), SpO2 96.00%.Temp (24hrs), Av.3 C (97.3 F), Min :36.1 C (97 F), Max:36.4 C (97.6 F) I/O: Intake/Output Summary (Last 24 hours) at 09/16/13 0642 Last data filed at 09/16/13 0117 Gross per 24 hour Intake 750 ml Output 750 ml Net 0 ml General: healthy, alert and in no distress Neuro: Awake, alert and oriented x 3; Cranial nerves II-XII grossly intact; Reflexes symmet rical; Motor intact with BUE and BLE 5/5; Sensation intact to soft touch. Wound: incision with acticoat in place Labs: Lab results (within last 13 months/9480 hours) Basename 09/15/13 1559 WBC 9.0 HGB 13.4 HGBPOC -- HCT 40.0 HCTPOC -- PLT 415*|415* NA 132* NAPOC -- K 4.9 KPOC -- CL 93* CLPOC -- HCO3 -- PJY2WGY -- BUN 48* BUNPOC -- CR 1.54* GLUC 155* GLUCPOC -- Lab results (within last 13 months/9480 hours) Basename 09/15/13 1559 INR 1.0 PT 10.9 PTT 29.6 No results found for this basename: DPHTOTAL in the last 9480 hours Assessment/Plan: Ms. Castillo is a 73 year old female S/P L4-5 posterolateral fusion, L4-5 posterior segmental instrumentation with the [place] instrumentation system, L4-5 laminectomy with lateral r ecess decompression, L4-5 interbody fusion, and L4-5 interbody cage on 08/07/2013 presenting with one week of drainage from the incision. 1. Post-operative wound dehiscence/drainage - OR today for reexploration of lumbar fusion - NPO since midnight - Appreciate Dr. Alvarez following for ID; recommendations noted 2. Pain - Continue IV pain medications at this time while NPO 3. Diabetes - Hold lantus this am - Continues SSI 4. Discharge planning - Dependent on intra-operative findings and post-operative course NICOLLE Gamble 06:42; 09/16/2013 Patient (Rebecca Castillo) meets inpatient level of care because I expect the patient to be in the hospital, including time spent in outpatient setting, for 2 midnights. I certify an order Admit to Inpatient has been entered. Patient will be treated for the diagnosis of Post-traumatic seroma [729.91] (Post-traumatic seroma ) Seroma complicating a procedure [998.13]. Patient will need IV fluids, IV antibiotics and IV pain medications. I anticipate the patient to be discharged to home. Services provided in accordance of section 42 [place] 412.3. onversio n Transaction, Provider Unknown - 09/16/2013 6:05 AM PSTFormatting of this note might be di fferent from the original. Progress Notes by Jia Cortes RN at 09/16/13 06 Author: Jia Cortes RN Service: (none) Author Type: Registered Nurse Filed: 09/16/13604 Date of Service: 09/16/13604 Status: Signed Treating Plant Supervisor: Jia Cortes RN (Registered Nurse) NSG Shift Summary Patient: Rebecca Castillo Back incision is covered with acticoat, drainage noted on lower portion. Ambulated to [facility] th SBA. Adequate pain control with 2tabs Camilla. NPO since MN. Supportive at bedside. Will cont to monitor. Jia Cortes RN, 09/16/2013 6:05 AM onver [place] Transaction, Provider Unknown - 09/15/2013 11:36 PM PST Progress Notes by Parviz Plata RN at 09/15/13 1893 Author: Parviz Plata RN Service: (none) Author Type: Registered Nurse Filed: 09/15/13 2343 Date of Service: 09/15/13 2336 Status: Signed Treating Plant Supervisor: Parviz Plata RN (Registered Nurse) [facility] Admission Note Patient: Rebecca Castillo Admission Time and Date: 1700 on 09/15/2013 Patient admitted from: clinic to room 545E. Patient orientation: to call light to telephone and television to general hospital information to plan for the day -"Bill" at bedside Belongings verified with the patient: Current nursing problems: Pain, red and swollen lumbar surgical incision--s/p lumbar surge ry 08/07/2013. ID consult-Dr. Alvarez in to see patient. Plan: surgery tomorrow- for debribm ent and exploration . Instructed to be NPO past midnight. Parviz Plata RN, 09/15/2013 11:36 PM oTim chicas MD - 09/15/2013 5:18 PM PSTFormatting of this note might be different from the o riginal. Progress Notes by Tim Alvarez MD at 09/15/13 1718 Author: Tim Alvarez MD Service: (none) Author Type: Physician Filed: 09/15/13 172 Date of Service: 09/15/131717 Status: Signed Treating Plant Supervisor: Tim Alvarez MD (Physician) Infectious Diseases Consultation - Rebecca Lua [facility] day #1 see full dictated note Impression: 1. 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 Not toxic. 2. DM 3. Obesity 4. Hx afib Recommendations: 1. Baseline ESR/CRP 2. Add ceftriaxone pending culture 3. I took a wound culture from the lower wound that would admit the head of a sterile swab 4. Contact isolation until cultures back (Hospital policy) 5. Continue iv vanco - goal trough 15-20 6. Agree with plans for surgical debridement and exploration tomorrow. 7. If this goes to bone or hardware, she will likely need a PICC and iv antibiotics Thank you, will follow. Tim Alvarez MD [phone] documented in this e ncounter Plan of Treatment +--------+ + + + + | Date | Type | Specialty | Care Team | Description | +--------+ + + + + | 11/17/ | Office | Cardiology | Rajendra Fowler, | | | 2019 | Visit | | MD [address] | | | | | | [place], | | | | | | [place] [address] | | | | | | [phone] | | | | | | | [...] | CULTURE, AEROBIC + | Routin | 09/21/2013 | | Results for this | | GRAM STAIN | e | 9:23 PM | | procedure are in the | | | | PST | | results section. | + +--------+ + + + | CULTURE, AEROBIC + | Routin | 09/21/2013 | | Results for this | | GRAM STAIN | e | 9:13 PM | | procedure are in the | | | | PST | | results section. | + +--------+ + + + | XR CHEST 1 VIEW | Routin | 09/18/2013 | | Results for this | | | e | 5:36 PM | | procedure are in the | | | | PST | | results section. | + +--------+ + + + | CULTURE, AEROBIC + | Routin | 09/16/2013 | | Results for this | | GRAM STAIN | e | 3:15 PM | | procedure are in the | | | | PST | | results section. | + +--------+ + + + | CULTURE, AEROBIC + | Routin | 09/16/2013 | | Results for this | | GRAM STAIN | e | 3:15 PM | | procedure are in the | | | | PST | | results section. | + +--------+ + + + | CULTURE, AEROBIC + | Routin | 09/16/2013 | | Results for this | | GRAM STAIN | e | 3:02 PM | | procedure are in the | | | | PST | | results section. | + +--------+ + + + | CULTURE, AEROBIC + | Routin | 09/16/2013 | | Results for this | | GRAM STAIN | e | 3:02 PM | | procedure are in the | | | | PST | | results section. | + +--------+ + + + | XR CHEST 1 VIEW | Routin | 09/15/2013 | | Results for this | | | e | 5:46 PM | | procedure are in the | | | | PST | | results section. | + +--------+ + + + | CULTURE, MRSA AND | Routin | 09/15/2013 | | Results for this | | MSSA | e | 5:00 PM | | procedure are in the | | | | PST | | results section. | + +--------+ + + + | CULTURE, AEROBIC + | Routin | 09/15/2013 | | Results for this | | GRAM STAIN | e | 5:00 PM | | procedure are in the | | | | PST | | results section. | + +--------+ + + + documented in this encounter Results Culture, Aerobic + Gram Stain (09/21/2013 9:23 PM PST) + + | Specimen | + + | | + + + + + | Narrative | Performed At | + + + | [facility] BACK WOUND BONE | EXTERNAL LAB | | Gram Stain [...] + + Culture, Aerobic + Gram Stain (09/21/2013 9:13 PM PST) + + | Specimen | + + | | + + + + + | Narrative | Performed At | + + + | [facility] BACK WOUND SURGICAL | EXTERNAL LAB | | INCISION Gram Stain Few cells | | | Few polys | | | No organisms seen [...] | | + +---------+ + + XR Chest 1 Vw (09/18/2013 5:36 PM PST) + + | Specimen | + + | | + + + + + | Impressions | Performed At | + + + | Normal chest radiography. [facility] Dictated by: ESTRELLA Miranda | | | SALUD Dictated: 09/18/2013 6:38 PM Job: [id number] | | + + + + + + | Narrative | Performed At | + + + | CHEST RADIOGRAPHY XR CHEST 1 VIEW DATE: 09/18/2013. HISTORY: | | | PICC line placement COMPARISONS: 09/15/2013. FINDINGS: | | | Volume: Normal. Lungs/Pleura: No nodules, consolidation, or edema. | | | No effusion or pneumothorax. Normal pulmonary vasculature. | | | Mediastinum: No adenopathy or cardiac enlargement. Bones: | | | Unremarkable. Other: Interval placement of a right PICC line with | | | the tip at the cavoatrial junction. | | + + + + + | Procedure Note | + + | Jeanmarie, Rad Conversion - 03/27/2019 1:28 PM PDT CHEST RADIOGRAPHY | | XR CHEST 1 VIEW | | | | DATE: 09/18/2013. | | | | HISTORY: PICC line placement | | | | COMPARISONS: 09/15/2013. | | | | FINDINGS: | | Volume: Normal. | | | | Lungs/Pleura: No nodules, consolidation, or edema. No effusion or | | pneumothorax. Normal pulmonary vasculature. | | | | Mediastinum: No adenopathy or cardiac enlargement. | | | | Bones: Unremarkable. | | | | Other: Interval placement of a right PICC line with the tip at the | | cavoatrial junction. | | | | IMPRESSION: | | Normal chest radiography. | | | | [facility] | | | | Dictated by: ESTRELLA BRANNON | | Dictated: 09/18/2013 6:38 PM | | Job: [id number] | + + Culture, Aerobic + Gram Stain (09/16/2013 3:15 PM PST) + + | Specimen | + + | | + + + + + | Narrative | Performed At | + + + | S[facility] DEEP WOUND Gram | EXTERNAL LAB | | Stain Occ cells | | | Rare polys | | | No organisms seen Quantity | | | Rare Culture | | | Escherichia coliGrowth Organism Remark | | | For sensitivities see [id number] Quantity | | | Rare Culture | | | Proteus mirabilisGrowth Organism Remark | | | For sensitivities see [id number] | | + + + + +---------+ + + | Performing | Address | City/State/Zipcode | Phone Number | | Organization | | | | + +---------+ + + | EXTERNAL LAB | | | | + +---------+ + + Culture, Aerobic + Gram Stain (09/16/2013 3:15 PM PST) + + | Specimen | + + | | + + + + + | Narrative | Performed At | + + + | S[facility] DEEP WOUND Gram | EXTERNAL LAB | | Stain Few cells | | | Occ polys | | | No organisms seen Quantity | | | Rare Culture | | | Escherichia coliGrowth Organism Remark | | | For sensitivities see [id number] Quantity | | | Rare Culture | | | Proteus mirabilisGrowth Organism Remark | | | For sensitivities see [id number] | | + + + + +---------+ + + | Performing | Address | City/State/Zipcode | Phone Number | | Organization | | | | + +---------+ + + | EXTERNAL LAB | | | | + +---------+ + + Culture, Aerobic + Gram Stain (09/16/2013 3:02 PM PST) + + | Specimen | + + | | + + + + + | Narrative | Performed At | + + + | S[facility] SUPERFICIL WOUND | EXTERNAL LAB | | Gram Stain Few polys | | | No organisms seen Quantity | | | Rare Final | | | Identification Escherichia coliGrowth Organism | | | Remark Levofloxacin susceptibility may be | | | predicted from | | | Ciprofloxacin, based on local resistance | | | patterns. For confirmation of Levofloxacin | | | susceptibility, | | | please contact Microbiology at | | | . Suscepibility for - ESCHERICHIA | | | COLI amikacin <=2 Sensitive | | | ampicillin <=2 Sensitive | | | ampicillin-sulbactam <=2 Sensitive cefazolin | | | Sensitive cefepime | | | <=1 Sensitive ceftazidime | | | <=1 Sensitive ceftriaxone | | | <=1 Sensitive ciprofloxacin | | | <=0.25 Sensitive gentamicin | | | <=1 Sensitive meropenem | | | <=0.25 Sensitive piperacillin-tazobactam <=4 | | | Sensitive tobramycin <=1 | | | Sensitive trimethoprim-sulfamethoxazole <=20 Sensitive PARKER | | | values are in ug/mL R=Resistant, I=Intermediate, S=Sensitive | | + + + + +---------+ + + | Performing | Address | City/State/Zipcode | Phone Number | | Organization | | | | + +---------+ + + | EXTERNAL LAB | | | | + +---------+ + + Culture, Aerobic + Gram Stain (09/16/2013 3:02 PM PST) + + | Specimen | + + | | + + + + + | Narrative | Performed At | + + + | SOURCE SUPERFICIAL WOUND | EXTERNAL LAB | | Gram Stain Few cells | | | Few polys | | | No organisms seen Quantity | | | Few Final Identification | | | Escherichia coliGrowth Organism Remark | | | Levofloxacin susceptibility may be predicted from | | | Ciprofloxacin, | | | based on local resistance | | | patterns. For confirmation of Levofloxacin | | | susceptibility, please contact | | | Microbiology at | | | . Quantity Few | | | Final Identification Proteus | | | mirabilisGrowth Organism Remark | | | Levofloxacin susceptibility may be predicted from | | | Ciprofloxacin, based on local | | | resistance | | | patterns. For confirmation of Levofloxacin | | | susceptibility, please contact | | | Microbiology at | | | . Suscepibility for - ESCHERICHIA COLI amikacin | | | <=2 Sensitive ampicillin | | | <=2 Sensitive ampicillin-sulbactam | | | <=2 Sensitive cefepime | | | <=1 Sensitive ceftazidime | | | <=1 Sensitive ceftriaxone <=1 | | | Sensitive ciprofloxacin <=0.25 | | | Sensitive gentamicin <=1 | | | Sensitive meropenem <=0.25 | | | Sensitive piperacillin-tazobactam <=4 Sensitive | | | tobramycin <=1 Sensitive | | | trimethoprim-sulfamethoxazole <=20 Sensitive PARKER values are | | | in ug/mL R=Resistant, I=Intermediate, S=Sensitive Suscepibility | | | for - PROTEUS MIRABILIS amikacin <=2 | | | Sensitive ampicillin <=2 | | | Sensitive ampicillin-sulbactam <=2 | | | Sensitive cefepime <=1 | | | Sensitive ceftazidime <=1 | | | Sensitive ceftriaxone <=1 | | | Sensitive ciprofloxacin <=0.25 Sensitive | | | gentamicin <=1 Sensitive | | | meropenem 0.5 Sensitive | | | piperacillin-tazobactam <=4 Sensitive tobramycin | | | <=1 Sensitive | | | trimethoprim-sulfamethoxazole <=20 Sensitive PARKER values are | | | in ug/mL R=Resistant, I=Intermediate, S=Sensitive | | + + + + +---------+ + + | Performing | Address | City/State/Zipcode | Phone Number | | Organization | | | | + +---------+ + + | EXTERNAL LAB | | | | + +---------+ + + XR Chest 1 Vw (09/15/2013 5:46 PM PST) + + | Specimen | + + | | + + + + + | Impressions | Performed At | + + + | Normal chest radiography. [facility] Dictated by: DANYELLE Montenegro | Naida MAGANA Dictated: 09/15/2013 7:04 PM Job: [id number] | | + + + + + + | Narrative | Performed At | + + + | CHEST RADIOGRAPHY XR CHEST 1 VIEW DATE: 09/15/2013. HISTORY: | | | Preop for neurosurgery. COMPARISONS: None. FINDINGS: Volume: | | | Normal. Lungs/Pleura: No nodules, consolidation, or edema. No | | | effusion or pneumothorax. Normal pulmonary vasculature. | | | Mediastinum: No adenopathy or cardiac enlargement. Bones: | | | Unremarkable. Other: None. | | + + + + + | Procedure Note | + + | Roberto Murry Conversion - 03/27/2019 1:28 PM PDT CHEST RADIOGRAPHY | | XR CHEST 1 VIEW | | | | DATE: 09/15/2013. | | | | HISTORY: Preop for neurosurgery. | | | | COMPARISONS: None. | | | | FINDINGS: | | Volume: Normal. | | | | Lungs/Pleura: No nodules, consolidation, or edema. No effusion or | | pneumothorax. Normal pulmonary vasculature. | | | | Mediastinum: No adenopathy or cardiac enlargement. | | | | Bones: Unremarkable. | | | | Other: None. | | | | IMPRESSION: | | Normal chest radiography. | | | | [facility] | | | | Dictated by: DANYELLE MAGANA | | Dictated: 09/15/2013 7:04 PM | | Job: [id number] | + + Culture, MRSA and MSSA (09/15/2013 5:00 PM PST) + + | Specimen | + + | | + + + + + | Narrative | Performed At | + + + | SOURCE NASAL Final | EXTERNAL LAB | | Report No Staph aureus isolated | | | No MRSA isolated | | + + + + +---------+ + + | Performing | Address | City/State/Zipcode | Phone Number | | Organization | | | | + +---------+ + + | EXTERNAL LAB | | | | + +---------+ + + Culture, Aerobic + Gram Stain (09/15/2013 5:00 PM PST) + + | Specimen | + + | | + + + + + | Narrative | Performed At | + + + | SOURCE INCISION,LUMBAR | EXTERNAL LAB | | Gram Stain Many cells | | | Mod polys | | | Few neg rods | | | Few pos cocci Quantity | | | Few Final Identification | | | Proteus mirabilisGrowth Organism Remark | | | Levofloxacin susceptibility may be predicted from | | | Ciprofloxacin, based | | | on local resistance | | | patterns. For confirmation of Levofloxacin | | | susceptibility, please contact | | | Microbiology at | | | . Quantity Few | | | Final Identification Escherichia | | | coliGrowth Organism Remark Levofloxacin | | | susceptibility may be predicted from | | | Ciprofloxacin, based on local resistance | | | patterns. For | | | confirmation of Levofloxacin | | | susceptibility, please contact Microbiology at | | | . Quantity | | | Rare Final | | | Identification Enterococcus faecalisGrowth | | | Comment | | | Results of (S) or (R) to | | | the reported | | | aminoglycoside (*) indicates the synergistic | | | activity of that aminoglycoside when used | | | with | | | penicillin/ampicillin. | | | | | | This is a mixed culture of potential pathogens. | | | Review of the organisms isolated | | | does not help | | | identify any specific isolate as more | | | significant. Complete workup has not been | | | performed. The value of | | | such information for | | | directing therapy against mixed infections | | | containing this many potential pathogens | | | is questionable. | | | If superficial contamination is | | | suspected, then recollection is recommended. | | | Please consult | | | Microbiology if clinical | | | considerations warrant further processing of this | | | | | | Specimen will be held five | | | days. Suscepibility for - PROTEUS MIRABILIS amikacin | | | <=2 Sensitive ampicillin | | | 4 Sensitive ampicillin-sulbactam | | | <=2 Sensitive cefepime | | | <=1 Sensitive ceftazidime 2 | | | Sensitive ceftriaxone <=1 | | | Sensitive ciprofloxacin <=0.25 | | | Sensitive gentamicin <=1 | | | Sensitive meropenem 1 | | | Sensitive piperacillin-tazobactam <=4 Sensitive | | | tobramycin <=1 Sensitive | | | trimethoprim-sulfamethoxazole <=20 Sensitive PARKER values are | | | in ug/mL R=Resistant, I=Intermediate, S=Sensitive Suscepibility | | | for - ESCHERICHIA COLI amikacin <=2 | | | Sensitive ampicillin <=2 | | | Sensitive ampicillin-sulbactam <=2 | | | Sensitive cefepime <=1 | | | Sensitive ceftazidime <=1 | | | Sensitive ceftriaxone <=1 | | | Sensitive ciprofloxacin <=0.25 Sensitive | | | gentamicin <=1 Sensitive | | | meropenem <=0.25 Sensitive | | | piperacillin-tazobactam <=4 Sensitive tobramycin | | | <=1 Sensitive | | | trimethoprim-sulfamethoxazole <=20 Sensitive PARKER values are | | | in ug/mL R=Resistant, I=Intermediate, S=Sensitive Suscepibility | | | for - ENTEROCOCCUS FAECALIS penicillin 4 | | | Sensitive vancomycin 2 | | | Sensitive Genta* | | | Sensitive Strep* | | | Sensitive PARKER values are in ug/mL R=Resistant, I=Intermediate, | | | S=Sensitive | | + + + + +---------+ [...]
--- OUTSIDE RECORDS SUMMARY | ~2019-10-18 | XMS | Encounter Summary ---
Demographics + + + | Address | [address] | | | [place] [address] | + + + | Home Phone [...] Team Providers + +------+ + | Care Plant General Manager Name | Role | Phone | + +------+ + | Jesus Mijares MD | PCP | | + +------+ + Encounter Details +--------+ + + + + | Date | Type | Department | Care Team | Description | +--------+ + + + + | 03/06/ | Hospital | [facility] | Anaidaroldo, | Lumbar radiculopathy | | 2016 | Encounter | MED CTR XRAY [address] | [address]AL[address] | (Primary Dx); | | | | [place] | [facility], | 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 | [address] | [place], [place] | [phone] | | [facility] | | [address] | | | - IMAGING | | | | + + + + + [place] SRINIVAS Lumbar Transforaminal (03/06/2016 3:59 PM PDT) + + | Specimen | + + | | + + + + + | Narrative | Performed At | + + + | 03/06/2016 Bilateral Transforaminal Epidural Steroid Injections | [facility] | | and Trochanteric Bursa Injection on Right Diagnosis: Lumbar | [facility] | | radiculopathy and Trochanteric bursitis ICD-10 Codes M54.16 and | [facility] | | M70.61 Rebecca Castillo presents [...] + + | [facility] | [address] | [place], [place] | [phone] | | [facility] | | [address] | | | - IMAGING | | [...]
--- OUTSIDE RECORDS SUMMARY | ~2019-10-18 | XMS | Encounter Summary ---
Demographics + + + | Address | [address] | | | [place] [address] | + + + | Home Phone [...] Team Providers + +------+ + | Care Shoe Designer Name | Role | Phone | [...] | Medical Question | | | | [place], | [address] [place], | | | | | [place] [address] | [place] [address] | | | | | [phone] | [phone] | | | | | | | [...] | | | | | | [place] [address] | | | | | | [phone] | | | | | | | [...]
--- OUTSIDE RECORDS SUMMARY | ~2019-10-18 | XMS | Encounter Summary ---
Demographics + + + | Address | [address] | | | [place] [address] | + + + | Home Phone [...] Team Providers + +------+ + | Care Mortgage Counselor Name | Role | Phone | + +------+ + | Jesus Mijares MD | PCP | | + +------+ + Encounter Details +--------+ + + + + | Date | Type | Department | Care Team | Description | +--------+ + + + + | 01/05/ | Orders Only | [facility] | Ino Wilson MD | | | 2015 | | NEPHROLOGY [place] | [address] [place] | | | | | [address] [place] | [address] [place], [place] | | | | | [address] [place], [place] | [address] | | | | | [address] | | | | | | [phone] | | | +--------+ + + + [...] | | | | | | [place] [address] | | | | | | [phone] | | | | | | | [...]
--- OUTSIDE RECORDS SUMMARY | ~2019-10-18 | XMS | Encounter Summary ---
Demographics + + + | Address | [address] | | | [place] [address] | + + + | Home Phone | | + + + | Preferred Language | Unknown | + + + | Marital Status | | + + + | Quaker Affiliation | 1027 | + + + [...] Team Providers + +------+ + | Care Ruffling Machine Operator Name | Role | Phone [...] | | | [place], | [address] | | | | | Trochanteric | [place], | [place], | | | | | bursitis of | PA-C [address] | [place] | | | | | both hips | [address] | [address] | | | | | Procedures | [place] | Phone: | | | | | [place] | [address] | [phone] | | | | | Major Joint | Phone: | Fax: | | | | | Right CHG | [phone] | [phone] | | | | | FLUOROSCOPIC | Fax: | | | | | | GUIDANCE | [phone] | | | | | | NEEDLE | | | | | | | PLACEMENT | | | | | | | ADD ON RI | | | | | | | [...] + + | 11/06/ | Office | [facility] | Christiano, | Lumbar radiculopathy | | 2018 | Visit | PHYSIATRY [address] | [address] | (Primary Dx); | | | | [place], | [address] [place], | 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 For all [...] in [address] Yong Pena in [place], use of hydrocodone 3 x/day and flexeril, [...] has no apparent deficits with short or termite control servicer memory. 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 Unfortunately she cont inues to have significant [...] | | | | | | [place] [address] | | | | | | [phone] | | | | | | | [...]
--- OUTSIDE RECORDS SUMMARY | ~2019-10-18 | XMS | Encounter Summary ---
Demographics + + + | Address | [address] | | | [place] [address] | + + + | Home Phone [...] Team Providers + +------+ + | Care Associate Pathologist Name | Role | Phone | + [...] + + | 05/12/ | Telephone | [facility] | Nilson Chaudhry | Other (Neurosurgeon | | 2012 | | ORTHOPEDIC SURGERY | MD Camila [address] | referral and | | | | [address] [place] [address] | [place], [place] | possible injection) | | | | [place], [place] | [address] | | | | | [address] | | | | | | [phone] | | | +--------+ + + + [...] | | | | | | [place] [address] | | | | | | [phone] | | | | | | | [...]
--- OUTSIDE RECORDS SUMMARY | ~2019-10-18 | XMS | Encounter Summary ---
Demographics + + + | Address | [address] | | | [place] [address] | + + + | Home Phone | | + + + | Preferred Language | Unknown | + + + | Marital Status | | + + + | Religion Affiliation | 1027 | + + + | Race | Unknown | + + + | Ethnic Group | Unknown | + + + Author + + + | Author | [facility] | | | and [place] | + + + | Organization | [facility] | | [...] Team Providers + +------+ + | Care Counselor Dormitory Name | Role | Phone | + +------+ + | Jesus Mijares MD | PCP | | + +------+ + Encounter Details +--------+ + + + + | Date | Type | Department | Care Team | Description | +--------+ + + + + | 09/11/ | Hospital | [facility] | Christiano, | Sacroiliitis ([facility]) | | 2016 | Encounter | MED CTR XRAY [address] | [address] | (Primary Dx); | | | | [place] | [facility], | Sacroiliitis, not | | | | [place] [address] | [place] [address] | elsewhere classified | | | | [phone] | [phone] | ([facility]); Lumbar | | | | | | radiculopathy; | | | | | Perpetual Inventory Clerk, [facility] | DEGENERATIVE DISC | | | [...] | | | | | | [place] [address] | | | | | | [phone] | | | | | | | [...] Lumbar radiculopathy ICD-10 Code M54.16 Rebecca | [facility] | | Chanell Castillo presents to the fluoroscopy suite for | [facility] | | fluoroscopically-guided bilateral L4-L5 transforaminal [...] + + | Performing | Address | City/State[facility] | Phone Number | | Organization | | | | + + + + + | [facility] | [address] | [place], [place] | [phone] | | [facility] | | [address] | | | - IMAGING | | [...] Rebecca Chanell Castillo presents to the | [facility] | | fluoroscopy suite for a fluoroscopically guided right sacroiliac [facility] | | joint steroid injection as [...] [address] | [place] | [phone] | | [facility] | | [address] | | | - IMAGING | | [...]
--- OUTSIDE RECORDS SUMMARY | ~2019-10-18 | XMS | Encounter Summary ---
Demographics + + + | Address | [address] | | | [place] [address] | + + + | Home Phone [...] Team Providers + +------+ + | Care Finish Sander Name | Role | Phone | + [...] | | | [place], | [address] | | | | | Sacroiliitis | Nilson Jensen MD | [place], | | | | | , not | [address] | [place] | | | | | elsewhere | [place] | [address] | | | | | classified | [place], [place] | Phone: | | | | | ([facility]) | [address] | [phone] | | | | | Procedures | Phone: | Fax: | | | | | [place] INJECT SI | [phone] | [phone] | | | | | JOINT | Fax: | | | | | | ARTHRGRPHY&/ | [phone] | | | | | | ANES/STEROID | | | | | | | W/IMAGE [place] | | | | | | [...] + + | 07/19/ | Hospital | [facility] | Christiano, | SACROILIITIS; | | 2013 | Encounter | MED CTR XRAY [address] | [address] | SCOLIOSIS , | | | | [place] | [facility], | IDIOPATHIC | | | | [place] [address] | [place] [address] | | | | | [phone] | [phone] | | | | | | | | | | | | Refrigeration InsulatorJaspal | | +--------+ + + + + [...] | | | | | | [place] [address] | | | | | | [phone] | | | | | | | [...] Rebecca Chanell Castillo presents to the | [facility] | | fluoroscopy suite for fluoroscopically guided bilateral sacroiliac [facility] | | joint steroid injections [...] [address] | [place] | [phone] | | [facility] | | [address] | | | - IMAGING | | [...] 720.0 Rebecca Castillo presents to the | [facility] | | fluoroscopy suite for fluoroscopically guided bilateral sacroiliac [facility] | | joint steroid injections [...] + + | Performing | Address | City/State/[facility] | Phone Number | | Organization | | | | + + + + + | [facility] | [address] | [place] | [phone] | | [facility] | | [address] | | | - IMAGING | | [...]
--- OUTSIDE RECORDS SUMMARY | ~2019-10-18 | XMS | Encounter Summary ---
Demographics + + + | Address | [address] | | | [place] [address] | + + + | Home Phone [...] Team Providers + +------+ + | Care Lag Screwer Name | Role | Phone | + +------+ + | Jesus Mijares MD | PCP | | + +------+ + Encounter Details +--------+ + + + + | Date | Type | Department | Care Team | Description | +--------+ + + + + | 10/02/ | Hospital | [facility] | Yong Pena | S/P lumbar fusion | | 2013 - | Encounter | SOFIA TEMPLETON EPLSY | MD [address] | | | | | [address] | [address] | | | 10/14/ | | [place], [place] | [place] [address] | | | 2013 | | [address] | [phone] | | | | | [phone] | | | +--------+ + + + [...] Date of Service: 10/15/13 0648 Status: Signed Cleaner: Manasa Ortega ARNP (Nurse Practitioner) Cosigner: Yong [...] year old female who was admitted to [facility] from clinic on for a draining [...] As tolerated Instructions/Follow-up: Discharge Instructions 1. Call [facility] office with any questions or concerns at [phone] (RN line ). 2. Sutures should come out post operative day [address] Pena's preference you re turn to his clinic for their removal. Please call [phone] to schedule appointment to amalia stanleye these [...] of infection, call the Nurse line at [phone]. 6. Follow up with your primary care physician as needed or as per next scheduled appointmen t. 7. Follow up at Dr. Pena's office in 6 weeks. Call to schedule appointment at [phone]. Imaging studies will be obtained at follow up. 8. For after hours emergencies, contact: soni Wilkerson [phone] robert Daniels [phone] Activity & Medications 1. Your activity will [...] Concerns please call your Physicians Office at: [phone] Preventing Infection As you recover from surgery we want you to heal and recover without added worry or problems . You may have heard of, or know someone, who had surgery and later went back to [facility] because of an infection. These infections [...] NICOLLE Gamble 10/15/2013, 06:48 Administrative Data: CPT [id number] than 30 min (Time spent: 55) CC: [...] 10/14/131102 Date of Service: 10/14/131100 Status: Signed Cleaner: Priya Minaya RN (Registered Nurse) [facility] Discharge Note Patient: Rebecca Castillo Date: 10/14/2013 Discharge instructions were given to patient. Learner indicates understanding. Discharge prescriptions were given to the patient. and faxed to [facility] in [place] Belongings verified with the patient: Yes [...] 10/14/13458 Date of Service: 10/14/13455 Status: Signed Cleaner: Paulette Eastman RN (Registered Nurse) NSG Shift [...] 10/13/131805 Date of Service: 10/13/131802 Status: Addendum Cleaner: Priya Minaya RN (Registered Nurse) Related Notes: [...] 2mg IV Di luadid and 2 tabs Fairbank for longer acting coverage. Pt VSS, ambulating [...] 10/13/131557 Date of Service: 10/13/131557 Status: Signed Cleaner: Gerry Degroot MD (Physician) Brief op note Dx_dehiscence Op- Wound reconstruction C&S sent Drain in place Camryn SAVAGE Priya Shearer RN - 10/13/2013 2:17 PM PST Progress Notes by Priya Minaya RN at 10/13/131416 Author: Priya Minaya RN Service: (none) Author Type: Registered Nurse Filed: 10/13/131416 Date of Service: 10/13/131416 Status: Signed Cleaner: Priya Minaya RN (Registered Nurse) [facility] Progress Note Brief Patient: Rebecca Castillo Pre op check list complete, need consent. Pt down to OR. Priya Minaya RN, 10/13/2013 2:17 PM oTim chicas MD - 10/13/2013 9:29 AM PST Progress Notes by Tim Alvarez MD at 10/13/13928 Author: Tim Alvarez MD Service: (none) Author Type: Physician Filed: 10/13/13929 Date of Service: 10/13/13928 Status: Signed Cleaner: Tim Alvarez MD (Physician) Infectious Diseases Progress [...] Reviewed. Xray: None new Tim Alvarez MD [phone] anasa Ortega AR AUTOMATIC SILK SCREEN PRINTER - 10/13/2013 6:33 AM PST Progress Notes by Manasa Ortega ARNP at 10/13/13632 Author: Manasa Ortega ARNP Service: (none) Author Type: Nurse Practitioner Filed: 10/13/13829 Date of Service: 10/13/13632 Status: Signed Cleaner: Manasa Ortega ARNP (Nurse Practitioner) Neurosurgery Progress Note ID: Rebecca Castillo; 73 y.o. female Location: 525E/525E1 Attending Yong Pena MD Hospital Day # 11 PCP Jesus Mjiares Procedure: 10/02/2013 1. Incision and drainage of [...] for itching 2. Pain - Continue scheduled Fairbank (2 tabs Q hours) with oxycodone 5-15 [...] 10/13/13424 Date of Service: 10/13/13419 Status: Signed Cleaner: Jana Saleh RN (Registered Nurse) NSG Progress Note Brief Patient: Rebecca Castillo Neuro status no change overnight , reports pain well controlled with schedule Fairbank and Prn oxycodone . Ambulates to the [...] 10/12/131858 Date of Service: 10/12/131846 Status: Signed Cleaner: Fabiana Cartwright RN (Registered Nurse) NS Progress Note Brief Patient: Rebecca Castillo Patient reported feeling itchy all over with no rash noticed over her body except for a sli ght reddish raised area to her left wrist with Benadryl po x 1 given with fair to adequate r elief. Yoli RN (Wound care) from [facility] called back to speak to RN taking [...] Date of Service: 10/12/13 1636 Status: Signed Cleaner: Gerry Degroot MD (Physician) Plastic Surgery OR tomorrow, 3 PM, Npo after 6 am. Wound looks good on most recent photo from VAC change. Camryn SAVAGE Rajendra Pulido [place] - 10/12/2013 3:22 PM PST . Progress Notes by Rajendra Mcnair at 10/12/13 1522 Author: Rajendra Mcnair Service: (none) Author Type: Filed: 10/12/13 1525 Date of Service: 10/12/13 152 Status: Signed Cleaner: Rajendra Mcnair () Nurse referral. Visited with the patient and her . She is walking well, and then res ting. They are waiting for an evaluation before going home to [place], [place]. Both is goo d spirits. They told me of their life in [place], her love of animals. They miss their [...] Date of Service: 10/12/13 1506 Status: Signed Cleaner: Jil Xavier RN (Registered Nurse) Message left at wound care office asking when dressing will be changed. Name and phone num sakina of check writer of this note given on message. onver everett Transaction, Provider Unknown - 10/12/2013 10:45 AM PST Progress Notes by Jil Xavier RN at 10/12/13 1045 Author: Jil Xavier RN Service: (none) Author Type: Registered Nurse Filed: 10/12/13 1050 Date of Service: 10/12/13 1045 Status: Signed Cleaner: Jil Xavier RN (Registered Nurse) Patient notified [...] 10/12/135 Date of Service: 10/12/131041 Status: Signed Cleaner: Jil Xavier RN (Registered Nurse) Patient's blood [...] 10/12/13925 Date of Service: 10/12/13924 Status: Signed Cleaner: Tim Alvarez MD (Physician) Infectious Diseases Progress [...] Reviewed. Xray: None new Tim Alvarez MD [phone] 35 min spent FTF, >50% time counseling and reviewing her hospitalization anasa Ortega AR AUTOMATIC SILK SCREEN PRINTER - 10/12/2013 6:28 AM PST Progress Notes by Manasa Ortega ARNP at 10/12/13627 Author: Manasa Ortega ARNP Service: (none) Author Type: Nurse Practitioner Filed: 10/12/13 0758 Date of Service: 10/12/13627 Status: Signed Cleaner: Manasa Ortega ARNP (Nurse Practitioner) Neurosurgery Progress [...] for itching 2. Pain - Continue scheduled Fairbank (2 tabs Q hours) with oxycodone 5-15 [...] 10/12/13618 Date of Service: 10/12/13618 Status: Signed Cleaner: Christine Lyon RN (Registered Nurse) NSLissa Progress [...] 005 Date of Service: 10/12/1346 Status: Signed Cleaner: Fabiana Cartwright RN (Registered Nurse) GLENIS Progress [...] Notes by Jil Xavier RN at 10/11/13 6752 Author: Jil Xavier RN Service: (none) Author Type: Registered Nurse Filed: 10/11/13 8275 Date of Service: 10/11/13 583 Status: Signed Cleaner: Jil Xavier RN (Registered Nurse) Patient ambulating in room and hallway independently, using walker. Wound vac patent and i ntact. Pain managed with routine Fairbank. Apical pulse at 1400 was 64. Digoxin given per ve rbal order from neuro clinician (see nurse communication section of active orders). Plan: Continue plan of care. Brittani Escalante FNP - 10/11/2013 9:58 AM PST Progress Notes by Brittani Segura ARNP at 10/11/13957 Author: Brittani Segura ARNP Service: (none) Author Type: Nurse Practitioner Filed: 10/11/13 1006 Date of Service: 10/11/13957 Status: Signed Cleaner: Brittani Segura ARNP (Nurse Practitioner) NSR Progress Note ID: Rebecca Castillo; 73 y.o. female Location: [facility] Attending Yong Pena MD Hospital [...] 09:58 7AM to 4PM reach me via [employer], 4PM to 7PM reach cross-cover via [employer] [facility] or page [phone] , 7PM to 7AM covered via [employer] Instructor/Nsg Fellow ickolas Lyon RN - 10/11/2013 5:45 AM PSTFormatting of this note might be different from the origi nal. Progress Notes by Christine Lyon RN at 10/11/1345 Author: Christine Lyon RN Service: (none) Author Type: Registered Nurse Filed: 10/11/13 0545 Date of Service: 10/11/13544 Status: Signed Cleaner: Christine Lyon RN (Registered Nurse) NS Progress [...] 0022 Date of Service: 10/11/1317 Status: Signed Cleaner: Fabiana Cartwright RN (Registered Nurse) NS Progress [...] 10/10/131623 Date of Service: 10/10/131621 Status: Signed Cleaner: Jil Xavier RN (Registered Nurse) Wound vac in place. Patient is up in room ambulating with a walker. Noon dose of Fairbank he ld to due excess Tylenol administration. Abhishek Segura notified. Prn Tylenol discontinued. Pl an: Offer Oxycodone as ordered until Fairbank can be safely administered. Continue plan of ca re. Brittani Escalante FNP - 10/10/2013 9:08 AM PST Progress Notes by Brittani Segura ARNP at 10/10/13907 Author: Brittani Segura ARNP Service: (none) Author Type: Nurse Practitioner Filed: 10/10/1314 Date of Service: 10/10/13907 Status: Signed Cleaner: Brittani Segura ARNP (Nurse Practitioner) NSR Progress Note ID: Rebecca Castillo; 73 y.o. female [facility] Attending Yong Pena MD Hospital [...] 09:08 7AM to 4PM reach me via [employer], 4PM to 7PM reach cross-cover via [employer] [facility] or page [phone] , 7PM to 7AM covered via [employer] Instructor/Nsg Fellow Nickolas Earl RN - 10/10/2013 5:46 AM PSTFormatting of this note might be different from the origi nal. Progress Notes by Christine Lyon RN at 10/10/13545 Author: Christine Lyon RN Service: (none) Author Type: Registered Nurse Filed: 10/10/13546 Date of Service: 10/10/13545 Status: Signed Cleaner: Christine Lyon RN (Registered Nurse) [facility]UM[facility] Progress [...] Saturday. VSS. Will continue to monitor. Christine Loyn RN, 10/10/2013 5:46 AM ary Lou Cherry RN - 7:47 PM PST Progress Notes by Mary Lou Cherry RN at 10/09/131946 Author: Mary Lou Cherry RN Service: (none) Author Type: Registered Nurse Filed: 10/09/13 1950 Date of Service: 10/09/131946 Status: Signed Cleaner: Mary Lou Cherry RN (Registered Nurse) NSG Progress Note Brief Patient: Rebecca Castillo [phone] Care of pain in the leg (due to struggle to put TEDs on earlier) with tylenol and Right JODI removed. Foot exercise encouraged and observed. Back pain controled with scheduled Fairbank t o 12/21. Ambulating independently using a walker. VS stable. Mary Lou Cherry RN, 10/09/2013 7:47 PM Gerry Alcala - 1 12/10/2012 12:33 PM PST Progress Notes by Gerry Degroot MD at 10/09/13 1233 Author: Gerry Degroot MD Service: (none) Author Type: Physician Filed: 10/09/13 1234 Date of Service: 10/09/13 1233 Status: Signed Cleaner: eGrry Degroot MD (Physician) Plastic Surgery Deep closure looks intact on photo from yesterday's VAC change. Plan-VAC change Saturday, OR Saturday at about 3 pm Camryn SAVAGE Tete Sanchez RN - 10/09/2013 10:37 AM PST Progress Notes by Tete Moreno RN at 10/09/13 1037 Author: Tete Moreno RN Service: (none) Author Type: Registered Nurse Filed: 10/09/13 1510 Date of Service: 10/09/13 1037 Status: Addendum Cleaner: Tete Moreno, RN (Registered Nurse) Related Notes: [...] 1017 Date of Service: 10/09/13726 Status: Signed Cleaner: Manasa Ortega ARNP (Nurse Practitioner) Neurosurgery Progress [...] for itching 2. Pain - Continue scheduled Fairbank (2 tabs Q hours) with oxycodone 5-15 [...] 10/09/13605 Date of Service: 10/09/13605 Status: Signed Cleaner: Christine Lyon RN (Registered Nurse) [facility] Progress Note Brief Patient: Rebecca Castillo No [...] 10/08/131901 Date of Service: 10/08/131849 Status: Addendum Cleaner: Todd Vick RN (Registered Nurse) Related Notes: Original Note by Todd Vick RN (Registered Nurse) filed at 10/08 [facility] Progress Note Brief Patient: Rebecca Castillo No neuro changes this shift. Ambulating in room independently, tolerates well. Had large lo ose BM this evening, continuing to hold bowel care meds. 3+ edema in lower extremities, elev ated on pillows, SCDs on. Wound vac changed this AM by squad boss. Pt tolerated well afte r 2mg IV dilaudid administered. Reports back pain improved afterwards. Pain well controlled on current regimen. Blood sugars range from 128-156, covered with SSI. HR and BP closely mon itored throughout day - Digoxin administered late this AM per verbal order from Erica BOYLE AUTOMATIC SILK SCREEN PRINTER d/t low HR - administered when HR [...] Date of Service: 10/08/13 1326 Status: Addendum Cleaner: Shannon Escalante RN, JORDAN (Wound/Ostomy Nurse) Related [...] Notes by Lucy Ruiz RD at 10/08/13 7756 Author: Lucy Ruiz RD Service: (none) Author Type: Registered Dietitian Filed: 10/08/13 6442 Date of Service: 10/08/131318 Status: Signed Cleaner: Lucy Ruiz RD (Registered Dietitian) Medical Nutrition [...] Date of Service: 10/08/13 1015 Status: Signed Cleaner: Tim Alvarez MD (Physician) Infectious Diseases Progress [...] Reviewed. Xray: None new Tim Alvarez MD [phone] 35 min spent FTF, >50% time counseling and reviewing her hospitalization Gerry Alcala - 10/08/2013 6:55 AM PST Progress Notes by Gerry Degroot MD at 10/08/1355 Author: Gerry Degroot MD Service: (none) Author Type: Physician Filed: 10/08/13 0656 Date of Service: 10/08/13654 Status: Signed Cleaner: Gerry Degroot MD (Physician) Plastic Surgery VAC [...] 10/08/1354 Date of Service: 10/08/13629 Status: Signed Cleaner: Jose Kahn RN (Registered Nurse) NS Progress Note Brief Patient: Rebecca Castilol Pt A&Ox4, ABREU, ambulates independently in room. C/o lower back pain that radiates bilateral ly to legs. Adequate relief with prn oxycodone and scheduled norco. Wound vac patent and suc tioning. Pt declined bowel meds as they cause "too many BM's." Pt to have wound vac change w [facility] wound care nurse in AM at bedside. [...] 10/08/1332 Date of Service: 10/08/13521 Status: Signed Cleaner: Manasa Ortega ARNP (Nurse Practitioner) Neurosurgery Progress [...] while awake 2. Pain - Continue scheduled Fairbank (2 tabs Q hours) with oxycodone 5-15 [...] Date of Service: 10/07/13 1311 Status: Signed Cleaner: Mario Granados RN (Registered Nurse) NSG Progress Note Brief Patient: Rebecca Castillo Pt. Called and C/O "Heart flutter". No definite pain per se. C/O light headedness. EYEDOTTER carlos led. EKG shows A-Fib. HR 110's. [...] Esparza PA-C Service: (none) Author Type: Physician First Cook Filed: 10/07/13 1110 Date of Service: 10/07/13 1108 Status: Signed Cleaner: Brittani Esparza PA-C (Physician First Cook) Neurosurgery Progress Note ID: Rebecca Castillo; 73 [...] while awake 2. Pain - Continue scheduled Fairbank (2 tabs Q hours) with oxycodone 5-15 [...] 11:08 7AM to 7PM reach me via [employer], 7PM to 7AM covered via [facility] Ceramics Instructor/Nsg Fellow Lakesha Freeman RN - 10/07/2013 3:19 AM PST Progress Notes by Lakesha Melendez at 10/07/139 Author: Lakesha Melendez Service: (none) Author Type: Registered Nurse Filed: 10/07/13 0548 Date of Service: 10/07/13318 Status: Addendum Cleaner: Lakesha Melendez (Registered Nurse) Related Notes: Original [...] 184 Date of Service: 10/06/131835 Status: Signed Cleaner: Harish Shepard RN (Registered Nurse) NSG Shift [...] Author: Teddy Cruz Service: (none) Author Type: Attorney Recruiter Filed: 10/06/13 7439 Date of Service: 10/06/131245 Status: Signed Cleaner: Teddy Cruz (Attorney Recruiter) Routine Spiritual Care intro. Pt seated on [...] Notes by Tim Alvarez MD at 10/06/13 3968 Author: Tim Alvarez MD Service: (none) Author Type: Physician Filed: 10/06/13 0803 Date of Service: 10/06/13 261 Status: Signed Cleaner: Tim Alvarez MD (Physician) Infectious Diseases Progress [...] Reviewed. Xray: None new Tim Alvarez MD [phone] 35 min spent FTF, >50% time counseling and reviewing her hospitalization Gerry Alcala - 10/06/2013 6:34 AM PST Progress Notes by Gerry Degroot MD at 10/06/13 06 Author: Gerry Degroot MD Service: (none) Author Type: Physician Filed: 10/08/1335 Date of Service: 10/06/13633 Status: Signed Cleaner: Gerry Degroot MD (Physician) Plastic Surgery (delayed [...] 10/06/13618 Date of Service: 10/06/13618 Status: Signed Cleaner: Jia Cortes RN (Registered Nurse) NSG Shift Summary Patient: Rebecca Castillo Alert and oriented x4. Painful, particularly with movement, but tolerable with current pain regimen of Fairbank and PRN oxycodone. Ambulating to BR every [...] 0739 Date of Service: 10/06/1334 Status: Signed Cleaner: Manasa Ortega ARNP (Nurse Practitioner) Neurosurgery Progress [...] while awake 2. Pain - Continue scheduled Fairbank (2 tabs Q hours) with oxycodone 5-15 [...] 10/05/131520 Date of Service: 10/05/131512 Status: Signed Cleaner: Lubna Peck OT (Occupational Therapist) OCCUPATIONAL THERAPY [...] Date of Service: 10/05/13 1222 Status: Signed Cleaner: Lidia Campos RN (Registered Nurse) Back to [...] 0939 Date of Service: 10/05/1336 Status: Signed Cleaner: Jackie Skaggs DO (Physician) Neurosurgery Brief Note For: Rebecca Lua Jonathan; 73 y.o. female Location: [facility] PACU POOL ROOM/POOL Attending Yong Pena [...] 10/05/1332 Date of Service: 10/05/13826 Status: Signed Cleaner: Tim Alvarez MD (Physician) Infectious Diseases Progress [...] change zosyn to Unasyn. Tim Alvarez MD [phone] anasa Ortega AR AUTOMATIC SILK SCREEN PRINTER - 10/05/2013 6:35 AM PST Progress Notes by Manasa Ortega ARNP at 10/05/13634 Author: Manasa Ortega ARNP Service: (none) Author Type: Nurse Practitioner Filed: 10/05/13850 Date of Service: 10/05/13634 Status: Signed Cleaner: Manasa Ortega ARNP (Nurse Practitioner) Neurosurgery Progress Note ID: Rebecca Castillo; 73 y.o. female Location: 525E/525E1 Attending Yong Pena MD Hospital Day # 3 PCP Jesus Mijarse Procedure: 1. Incision and drainage of wound [...] while awake 2. Pain - Continue scheduled Fairbank (2 tabs Q hours) with oxycodone 5-15 [...] 10/05/1347 Date of Service: 10/05/13416 Status: Signed Cleaner: Lakesha Melendez (Registered Nurse) NSLissa Progress Note [...] 10/04/131999 Date of Service: 10/04/131957 Status: Signed Cleaner: Todd Vick RN (Registered Nurse) [facility] Progress Note Brief Patient: Rebecca Castillo No [...] D, PA-C Service: (none) Author Type: Physician First Cook Filed: 10/04/13 121 Date of Service: 10/04/131211 Status: Signed Cleaner: Brittani Esparza PA-C (Physician First Cook) Neurosurgery Progress Note ID: Rebecca Castillo; 73 y.o. female [facility] Hospital Day [...] 12:13 7AM to 7PM reach me via [employer] Messenger, 7PM to 7AM covered via [facility] Ceramics Instructor/Nsg Fellow Gerry Alcala - 10/04/2013 8:52 AM PST Progress Notes by Gerry Degroot MD at 10/04/1352 Author: Gerry Degroot MD Service: (none) Author Type: Physician Filed: 10/04/13 0854 Date of Service: 10/04/13851 Status: Signed Cleaner: Gerry Degroot MD (Physician) Plastic Surgery Patient [...] 0617 Date of Service: 10/04/13331 Status: Signed Cleaner: Lakesha Melendez (Registered Nurse) [facility] Progress Note [...] 10/03/132011 Date of Service: 10/03/132006 Status: Signed Cleaner: Todd Vick RN (Registered Nurse) NS Progress [...] Rosie Terrazas LICSW Service: (none) Author Type: Technical Sales Manager Filed: 10/03/131708 Date of Service: 10/03/131699 Status: Signed Cleaner: Rosie Terrazas LICSW (Technical Sales Manager) Case Management Discharge Planning Assessment 17:00; 10/03/2013 Patient Rebecca Castillo is a 73 y.o. female admitted for Post Op Seroma Discussion:MACHINE LACER review past and current charts and discussed with healthcare team. Patient engaged and alert. Patient report she and her spouse report they live in [place]. Patient re ports they live on [place] acres with many animals. Patient reports their son is helping w ith the "chores" while she is in the hospital. Patient reports her daughter Debibe has been s taying with them and will continue to do so to provide assistance at discharge. Patient rep orts she receives assistance from family with activities of daily living and uses a 4WW for assistance with ambulation. Patient reports her has been staying in a hotel near [facility] as they brought their cat to [place] with them. Patient is a re-admit, patient [...] Support Options: HHC Plan: TBD Resources/Education provided: MACHINE LACER introduced role and how to access MACHINE LACER/CM during hospital visit. Interventions: Case Mgmt Team Interventions: Chart review/screening;Consult with healthcare team;D/C plann ing initial assessment;[place] of choice offered Diagnosis: Post Op Seroma [...] Information Primary Emergency Contact: Oniel Castillo Address: [address] [place], [place] [address] [facility] Mobile Relation: Spouse Secondary Emergency Contact: Debbie Selby [facility] Mobile Relation: Daughter Patient is being followed by Case Management Rosie Terrazas, APRIL, LSWAIC onversion Tra nsaction, Provider Unknown - 10/03/2013 2:25 PM PSTFormatting of this note might be differe nt from the original. Progress Notes by Arturo Roberto RD at 10/03/13 7759 Author: Arturo Roberto RD Service: (none) Author Type: Registered Dietitian Filed: 10/03/131426 Date of Service: 10/03/131424 Status: Signed Cleaner: Arturo Roberto RD (Registered Dietitian) Medical Nutrition Therapy Discussed case with Salvage Laborer. Boost oral supplement ordered to be sent daily be tween meals (TID). RD will continue to follow pt with team. Arturo Roberto RD, 10/03/2013 2:27 PM onver everett Transaction, Provider Unknown - 10/03/2013 1:57 PM PST Progress Notes by Juanjo Francisco at 10/03/13 8545 Author: Juanjo Francisco Service: (none) Author Type: Salvage Laborer Filed: 10/03/13 3698 Date of Service: 10/03/13 3857 Status: Addendum Cleaner: Juanjo Francisco (Salvage Laborer) Related Notes: Original Note by Juanjo Francisco (Salvage Laborer) filed at 3 1406 Medical Nutrition Therapy [...] Esparza PA-C Service: (none) Author Type: Physician First Cook Filed: 10/03/13 2873 Date of Service: 10/03/13 1342 Status: Addendum Cleaner: Brittani Esparza PA-C (Physician First Cook) Related Notes: Original Note by Brittani Esparza PA-C (Physician First Cook) filed at 1352 Neurosurgery Progress Note ID: Rebecca Castillo; 73 y.o. female [facility] Attending Yong Pena MD Hospital [...] 13:43 7AM to 7PM reach me via [employer] Messenger, 7PM to 7AM covered via [facility] Ceramics Instructor/[place] Fellow onversion Transacti on, Provider Unknown - 10/03/2013 1:08 PM PSTFormatting of this note might be different fro m the original. Progress Notes by Priscila Prado PT at 10/03/13 1308 Author: Priscila Prado, PT Service: (none) Author Type: Physical Therapist Filed: 10/03/13 9655 Date of Service: 10/03/13 8648 Status: Signed Cleaner: Priscila Prado PT (Physical Therapist) PHYSICAL THERAPY [...] at this time, PT to sign off. PT/SOIL TECHNOLOGIST order assistive devices prn Risks and benefits of treatment reviewed with patient/family and they agree with plan of ca re: Yes onver everett Transaction, Provider Unknown - 10/03/2013 8:48 AM PST Progress Notes by Nimisha Allen OT at 10/03/13847 Author: Nimisha Allen OT Service: (none) Author Type: Occupational Therapist Filed: 10/03/13900 Date of Service: 10/03/13847 Status: Signed Cleaner: Nimisha Allen OT (Occupational Therapist) OCCUPATIONAL THERAPY [...] standing for increased activity tolerance with ADLs OT/ASPHALT ROLLER OPERATOR order assistive devices prn Risks and benefits of treatment reviewed with patient/family and they agree with plan of ca re: Yes Jana Easton RN - 10/02/2013 10:55 PM PST Progress Notes by Jana Saleh RN at 10/02/132254 Author: Jana Saleh RN Service: (none) Author Type: Registered Nurse Filed: 10/02/13 1303 Date of Service: 10/02/132254 Status: Signed Cleaner: Jana Saleh RN (Registered Nurse) NSG Arrival [...] call light to telephone and television to [facility] information to plan for the day Jana Saleh RN, 10/02/2013 10:55 PM Autumn La RN - 10/02/2013 8:08 PM PST Progress Notes by Autumn Croft RN at 10/02/132007 Author: Autumn Croft RN Service: (none) Author Type: Registered Nurse Filed: 10/02/132008 Date of Service: 10/02/132007 Status: Signed Cleaner: Autumn Croft RN (Registered Nurse) GLENIS Progress [...] 10/02/132007 Date of Service: 10/02/132006 Status: Signed Cleaner: Autumn Croft RN (Registered Nurse) NSG Admission [...] 10/02/131748 Date of Service: 10/02/131747 Status: Signed Cleaner: Manasa Ortega ARNP (Nurse Practitioner) NSG Progress [...] 10/02/132031 Date of Service: 10/02/131131 Status: Signed Cleaner: Yong Pena MD (Physician) Yong Pena Jr, MD| Co-Director of Spine Fellowship| [facility] I had an extensive discussion [...] well as postoperative risks which include stroke, OH, bleeding, anaphylaxis, infection , misplacement of hardware, [...] Pena Jr, MD| Co-Director of Spine Fellowship| [facility] [address] [place] [address] [address]| Jose Alberto Daniels [address] pager | direct [phone]| fax [phone] | [email or web address] This message is confidential, intended only for [...] | | | | | | [place] [address] | | | | | | [phone] | | | | | | | [...]
--- OUTSIDE RECORDS SUMMARY | ~2019-10-18 | XMS | Encounter Summary ---
Demographics + + + | Address | [address] | | | [place] [address] | + + + | Home Phone [...] Team Providers + +------+ + | Care Street Light Servicer Name | Role | Phone | + +------+ + | Jesus Mijares MD | PCP | | + +------+ + Encounter Details +--------+ + + + + | Date | Type | Department | Care Team | Description | +--------+ + + + + | 07/27/ | Hospital | [facility] | Conversion | | | 2013 | Encounter | [facility] | Transaction, | | | | | [address] | Provider Unknown | | | | | [place], [place] | [phone] | | | | | [address] | | | | | | [phone] | Yong Pena Jr., | | | | | | MD [address] | | | | | | [address] [place], [place] | | | | | | [address] | | | | | | | [...] | | | | | | [place] [address] | | | | | | [phone] | | | | | | | [...]
--- OUTSIDE RECORDS SUMMARY | ~2019-10-18 | XMS | Encounter Summary ---
Demographics + + + | Address | [address] | | | [place] [address] | + + + | Home Phone [...] | Author | [facility] | | | and [place] | + + + | Organization | [facility] [...] Team Providers + +------+ + | Care Electrode Cleaning Machine Operator Name | Role | Phone [...] | Acute pain | [place], | [address] | | | | | of right | Nilson Jensen MD | [place], | | | | | shoulder | [address] | [place] [address] | | | | | Procedures | [address] [place] | Phone: | | | | | CT | [place], [place] | [phone] | | | | | Arthrogram | [address] | Fax: | | | | | Shoulder | Phone: | [phone] | | | | | Right | [phone] | | | | | | Called 1x | Fax: | | | | | | | [phone] | | +--------+--------+ + + + + Reason for Visit + + + | Reason | Comments | + + + | Results, Imaging | | + + + Encounter Details +--------+ + + + + | Date | Type | Department | Care Team | Description | +--------+ + + + + | 11/07/ | Telephone | [facility] | Christian[place], | Results, Imaging | | 2017 | | PHYSIATRY [address] | [address] | | | | | [place], | [facility], | | | | | [place] [address] | [place] [address] | | | | | [phone] | [phone] | | | | | | | [...] | | | | | | [place] [address] | | | | | | [phone] | | | | | | | [...] + + | Performing | Address | City/State[facility] | Phone Number | | Organization | | | | + +---------+ + + | [facility] | | | | + +---------+ + + [place] Shoulder Inj Right for MRI or CT (12/03/2017 11:16 AM [facility]) + + | Specimen | + + [...]
--- OUTSIDE RECORDS SUMMARY | ~2019-10-18 | XMS | Encounter Summary ---
Demographics + + + | Address | [address] | | | [place] [address] | + + + | Home Phone | | + + + | Preferred Language | Unknown | + + + | Marital Status | | + + + | Islam Affiliation | 1027 | + + + | Race | Unknown | + + + | Ethnic Group | Unknown | + + + Author + + + | Author | [facility] | | | and [place] | + + + | Organization | [facility] | | | [...] Team Providers + +------+ + | Care Tarp Repairer Name | Role | Phone | [...] + + | 08/09/ | Office | [facility] | Christiano, | Lumbar radiculopathy | | 2013 | Visit | PHYSIATRY [address] | [address] | (Primary Dx); | | | | [place], | [facility], | Spinal stenosis of | | | | [place] [address] | [place] [address] | lumbar region - | | | | [phone] | [phone] | L3/L4, adjacent | | | | [...] L4/L5 performed by Dr. Yong Pena in [place], use of hydrocodone 3x/day and flexeril. Patient's [...] has no apparent deficits with short or group home memory. She has appropriate fund of [...] | | | | | | [place] [address] | | | | | | [phone] | | | | | | | [...] ICD-9 Code 724.4 Rebecca Lua | [facility] | | Jonathan presents to the fluoroscopy suite for fluoroscopically-guided [facility] | | bilateral L4-L5 transforaminal epidural [...] [address] | [place] | [phone] | | [facility] | | [address] | | | - IMAGING | | [...]
--- OUTSIDE RECORDS SUMMARY | ~2019-10-18 | XMS | Encounter Summary ---
Demographics + + + | Address | [address] | | | [place] [address] | + + + | Home Phone | | + + + | Preferred Language | Unknown | + + + | Marital Status | | + + + | Presybeterian Affiliation | 1027 | + + + | Race | Unknown | + + + | Ethnic Group | Unknown | + + + Author + + + | Author | [facility] | | | and [place] | + + + | Organization | [facility] | | | [...] Team Providers + +------+ + | Care Feltmaker Name | Role | Phone | + [...] | | | [place], | [address] | | | | | Trochanteric | [place]yl, | [place], | | | | | bursitis of | PA-C [address] | [place] | | | | | right hip | [address] | [address] | | | | | Procedures | [place] | Phone: | | | | | [place] | [address] | [phone] | | | | | and/or Inj | Phone: | Fax: | | | | | Major Joint | [phone] | [phone] | | | | | Right | Fax: | | | | | | | [phone] | | +--------+--------+ + + + + Reason for Visit + + + | Reason | Comments | + + + | Back Pain | low back pain radiating into right leg | + + + Encounter Details +--------+---------+ + + + | Date | Type | Department | Care Team | Description | +--------+---------+ + + + | 02/06/ | Office | [facility] | Christiano, | Lumbar radiculopathy | | 2017 | Visit | PHYSIATRY [address] | [address] | (Primary Dx); | | | | [place], | [place] [facility], | Spinal stenosis [place] | | | | [place] [address] | [place] [address] | lumbar region | | | | [phone] | [phone] | without neurogenic | | | | [...] of the procedure you must provide a water taxi driver to take you home. For [...] This is rarely needed. Date Last Reviewed: 06/24/201519991292-2554 [employer] [place] [address], [place] [address]. All righ ts reserved. This information is [...] in [address] Yong Pena in [place], use of hydrocodone 3 x/day and flexeril, [...] has no apparent deficits with short or intermodal owner operator truck driver memory. She has appropriate fund of knowledge [...] PT (multiple sessions over the years) and medical care manager. Unfortunately she continue s to have significant [...] | | | | | | [place] [address] | | | | | | [phone] | | | | | | | [...] + + | Performing | Address | City/State/[facility] | Phone Number | | Organization [...]
--- OUTSIDE RECORDS SUMMARY | ~2019-10-18 | XMS | Encounter Summary ---
Demographics + + + | Address | [address] | | | [place] [address] | + + + | Home Phone [...] Team Providers + +------+ + | Care Optometrist Name | Role | Phone | + +------+ + | Jesus Mijares MD | PCP | | + +------+ + Encounter Details +--------+ + + + + | Date | Type | Department | Care Team | Description | +--------+ + + + + | 10/29/ | Orders Only | [facility] | Conversion | | | 2016 | | NEPHROLOGY ELEAZAR | Transaction, | | | | | [address] | Provider Unknown | | | | | [address] [facility] [place] | | | | | | [address] | (Fax) | | | | | [phone] | | | +--------+ + + + [...] | | | | | | [place] [address] | | | | | | [phone] | | | | | | | [...] - 1.030 | EXTERNAL | | | [place] | | | LAB | | + [...] | | | LAB | | | [facility] | | | | | + +---------+ [...]
--- OUTSIDE RECORDS SUMMARY | ~2019-10-18 | XMS | Encounter Summary ---
Demographics + + + | Address | [address] | | | [place] [address] | + + + | Home Phone [...] Providers + +------+ + | Care Mobile Disc Jockey Name | Role | Phone | + +------+ + | Jesus Mijares MD | PCP | | + +------+ + Encounter Details +--------+ + + + + | Date | Type | Department | Care Team | Description | +--------+ + + + + | 08/07/ | Hospital | [facility] | Yong Pena | | | 2012 - | Encounter | [facility] | MD [address] | | | | | [address] | [address] | | | 08/10/ | | [place], [place] | [place] [address] | | | 2012 | | [address] | [phone] | | | | | [phone] | | | +--------+ + + + [...] Summaries by Manasa Ortega ARNP at 08/10/13 6772 Author: Manasa Ortega ARNP Service: (none) Author Type: Nurse Practitioner Filed: 08/10/13 9166 Date of Service: 08/10/131252 Status: Signed Electroplater Automatic: Manasa Ortega ARNP (Nurse Practitioner) Cosigner: Yong [...] Take 2 Tabs by mouth every six shivam rs.Disp-90 Tab, R-0, Normal oxyCODONE, Immediate release, [...] 73 year old female who presented to [facility] on 08/07/2013 for a L4-5 interbody fusion with cage placement, L4-5 posterior fusion with segmental instrumentat ion, and L4, L5 laminectomy with lateral recess decompression. Post-operatively, the patien conchis was transferred to for continued monitoring. She did well overnight with pain initiall y managed with a EXPEDITIONARY FIGHTING VEHICLE CREWMAN, but was weaned to an oral pain [...] As tolerated Instructions/Follow-up: Discharge Instructions 1. Call [facility] office with any questions or concerns at [phone] (RN line ). 2. Sutures should come out post operative day [address] Pena's preference you re turn to his clinic for their removal. Please call [phone] to schedule appointment to h ave these removed. If your incision is closed with steri-strips, these [facility] in 5-7 days. If they remain in [...] of infection, call the Nurse line at [phone]. 6. Follow up with your primary care physician as needed or as per next scheduled appointmen t. 7. Follow up at Dr. Pena's office in 6 weeks. Call to schedule appointment at . Imaging studies will be obtained at follow up. 8. For after hours emergencies, contact: soni Wilkerson [phone] robert Daniels [phone] Activity & Medications 1. Your activity will [...] Concerns please call your Physicians Office at: [phone] Preventing Infection As you recover from surgery we want you to heal and recover without added worry or problems . You may have heard of, or know someone, who had surgery and later went back to the [facility] because of an infection. These infections can [...] Erica OrtegaNICOLLE 08/10/2013, 12:53 Administrative Data: CPT [id number] than 30 min (Time spent: 55) CC: [...] 08/10/1358 Date of Service: 08/10/13853 Status: Signed Electroplater Automatic: Priscila Prado PT (Physical Therapist) PHYSICAL THERAPY [...] 08/10/1351 Date of Service: 08/10/13648 Status: Signed Electroplater Automatic: Lakesha Melendez (Registered Nurse) NSG Progress Note Brief Patient: Rebecca Castillo Discharge orders received. Scripts faxed to outpatient [facility] pharmacy to be p icked up after [...] 0816 Date of Service: 08/10/13449 Status: Signed Electroplater Automatic: Manasa Ortega ARNP (Nurse Practitioner) Neurosurgery Progress [...] -- CL 99 CLPOC -- HCO3 -- NIJ3UKY -- BUN 16 BUNPOC -- CR 0.97 GLUC 227* GLUCPOC -- No results found for this basename: INR,PT,PTT in the last 9480 hoursNo results found for t his basename: DPHTOTAL in the last 9480 hours Assessment/Plan: 1. S/P L4-5 posterolateral fusion, L4-5 posterior segmental instrumentation with the [employer] r Edda instrumentation system, L4-5 laminectomy with lateral recess decompression, L4-5 inter body fusion, and L4-5 interbody cage. - Dressing changed - PT/OT while inpatient - OOB with meals & Ambulate TID - Continue bowel medications - Push IS - 10x hourly while awake 2. Pain - Continue current oral regimen with scheduled [place] and oxycodone for breakthrough 3. DVT prophylaxis [...] 0537 Date of Service: 08/10/13337 Status: Signed Electroplater Automatic: Lakesha Melendez (Registered Nurse) [facility] Progress Note Brief Patient: Rebecca Castillo Alert [...] one dose to f juanjod at the [facility] if possible. Will endorse to day shift RN. Lakesha Melendez, 08/10/2013 5:37 AM Mary Gambino RN - 08/09/2013 6:07 PM PDT Progress Notes by Mary Stiles RN at 08/09/131806 Author: Mary Stiles RN Service: (none) Author Type: Registered Nurse Filed: 08/09/13 1950 Date of Service: 08/09/131806 Status: Signed Electroplater Automatic: Mary Stiles RN (Registered Nurse) [facility] Progress Note Brief Patient: Rebecca Castillo Pt [...] Rosie Terrazas LICSW Service: (none) Author Type: Police Pilot Filed: 08/09/13 1320 Date of Service: 08/09/13 1232 Status: Signed Electroplater Automatic: Rosie Terrazas LICSW (Police Pilot) Case Management Discharge Planning Assessment 12:32; 08/09/2013 Patient Rebecca Castillo is a 73 y.o. female admitted for Acquired spondylolisthesis [738.4] (Acquired spondylolisthesis ) Discussion: IMPROVEMENT NURSE reviewed current and historical charts. IMPROVEMENT NURSE met with patient and patient's spouse Bill at bedside. Patient alert and engaged, sitting up in bedside chair. Patient r eports she and her spouse reside in [place], reports daughter and grandchild also live in the home. Patient reports at discharge the plan is to return to [place]. Patient reports prior to admission received assistance from family with activities of daily living. Patient repor ts she uses a 4WW. Patient's reports he has been staying at the [facility] and is waiting to hear if [...] other needs/concerns at this time however understands IMPROVEMENT NURSE remains available as needed. Discharge Planning Options Home Plan: TBD: Likely Home Resources/Education provided: IMPROVEMENT NURSE introduced role and how to access IMPROVEMENT NURSE/CM during hospital visit. Interventions: Case Mgmt Team Interventions: Care coordination;Chart review/screening;Consult with [facility] are team;D/C planning initial assessment Diagnosis: Acquired [...] Modified Independent DME and/or supplies at residence LINING CLOSER: Cane or walker (comment) (4WW) PCP: Confirmed with patient/communications representative Jesus Mijares Principle Payors: Confirmed with patient/communications representative Payor: MEDICARE Plan: MEDICARE PART A AND B Product Type: *No Product type* Primary Contact Information: Extended Emergency Contact Information Primary Emergency Contact: Oniel Castillo Address: [address] [place] [address] [place] Relation: Spouse Secondary Emergency Contact: Selby,[facility] Mobile Relation: Daughter Patient is being followed by Case Management APRIL Edouard, LSWAIC de Nya Kwan ARNP - 08/09/2013 11:05 AM PDTFormatting of this note might be different from th e original. Progress Notes by Nya Gauthier ARNP at 08/09/131104 Author: Nya Gauthier ARNP Service: (none) Author Type: Nurse Practitioner Filed: 08/09/13 1112 Date of Service: 08/09/131104 Status: Signed Electroplater Automatic: Nya Gauthier ARNP (Nurse Practitioner) NSR Progress Note ID: Rebecca Castillo; 73 y.o. female [facility] Yong Pena MD Hospital Day # [...] -- CL 99 CLPOC -- HCO3 -- [id number] -- BUN 16 BUNPOC -- CR 0.97 [...] senna, suppository prn Pain management: weaned off EXPEDITIONARY FIGHTING VEHICLE CREWMAN. Scheduled [place]. Oxycodone and Flexeril PRN 2. Drain with 35/24hours. Removed without complication. 3. Labs stable. 4. DM: Diabetic diet Resume 1/2 dose of glargine today and full dose tomorrow. Resume glimepiride today and metformin as an outpatient. Cont SSI. 5. Disposition: home tomorrow after further progress with therapies. NICOLLE Hernandez 08/09/2013 11:05 7AM to 7PM reach me via [employer] Messenger 7PM to 7AM covered via [facility] Credit And Collections Analyst/Nsg Fellow Lakesha Shipman RN - 08/09/2013 4:01 AM PDTFormatting of this note might be different from the andres ginal. Progress Notes by Lakesha Melendez at 08/09/13400 Author: Lakesha Melendez Service: (none) Author Type: Registered Nurse Filed: 08/09/13 0551 Date of Service: 08/09/13400 Status: Signed Electroplater Automatic: Lakesha Melendez (Registered Nurse) [place] Progress Note [...] her walker from home. Will continue to [facility]. Lakesha Melendez, 08/09/2013 5:51 AM Mary Gambino RN - 08/08/2013 4:48 PM PDT Progress Notes by Mary Stiles RN at 08/08/131647 Author: Mary Stiles RN Service: (none) Author Type: Registered Nurse Filed: 08/08/131928 Date of Service: 08/08/131647 Status: Signed Electroplater Automatic: Mary Stiles RN (Registered Nurse) [facility] Progress Note Brief Patient: Rebecca Castillo Pt neuro stable this shift; continued baseline tremors in hands and transient numbness/ting ling in BLE. IV infiltration of vanco, infusion stopped, COMPUTER REPAIR TECHNICIAN notified, wydase administered , ice packs every [...] (none) Author Type: Nurse Practitioner Filed: 08/08/13 9957 Date of Service: 08/08/131136 Status: Addendum Electroplater Automatic: Nya Gauthier ARNP (Nurse Practitioner) Related Notes: Original Note by Nya Gauthier ARNP (Nurse Practitioner) filed at 08/08 1504 NSR Progress Note ID: Rebecca Castillo; 73 y.o. female [facility] Attending Yong Pena MD Hospital Day # [...] morning. Moderate pain control - weaned off EXPEDITIONARY FIGHTING VEHICLE CREWMAN. Specificall y denies shortness of breath, chest [...] -- CL -- CLPOC -- HCO3 -- FEL9YEP -- BUN -- BUNPOC -- CR 1.07* [...] out, monitor PVRs Pain management: weaned off EXPEDITIONARY FIGHTING VEHICLE CREWMAN. Scheduled [place]. Oxycodone and Flexeril PRN 2. Drain with 150cc overnight. Remove tomorrow. 3. Check labs: BMP, CBC 4. DM: Diabetic diet Hold glargine and oral hypoglycemics. Well controlled on SSI 5. Disposition: ELOS 2-3d NICOLLE Hernandez 08/08/2013 11:37 7AM to 7PM reach me via [employer] 7PM to 7AM covered via [facility] Credit And Collections Analyst/Nsg Fellow Patient (Rebecca Castillo) meets inpatient level [...] Date of Service: 08/08/13 1017 Status: Signed Electroplater Automatic: Alyson Coto OT (Occupational Therapist) OCCUPATIONAL THERAPY EVALUATION Duration of Session Time In:944 Time Out: 102 PATIENT PROFILE Diagnosis: Acquired spondylolisthesis [738.4] (Acquired spondylolisthesis ) Surgery/Procedure: Procedure(s) with comments: FUSION SPINE LUMBAR POSTERIOR - 70192/16098/83994/86466 L4-5 POSTERIOR FUSION W/ JENNIFER XI A 4.5mm & AVS Unilif PEEK Cage, (Prone on WENDY, SSEP/MEP/EMG MONITORING, C-ARM) Surgery Date: 08/07 Precautions: Cleared for OOB: Yes Spinal Surgery Precautions: General spine surgery SOCIAL HISTORY Living Environment: Lives in [facility] in house [place] with 2 steps to enter with h usband , daughter and grandson who are all available to assist as needed Prior Level of Functioning: pt with Modified Cooper in own self care but unable to [...] (none) Author Type: Registered Nurse Filed: 08/08/13 6628 Date of Service: 10/26/13 0756 Status: Signed Electroplater Automatic: Natacha Bob RN (Registered Nurse) Problem: PAIN - ADULT Goal: Verbalizes/displays adequate comfort level or baseline comfort level Outcome: PROGRESSING EXPECTED Off EXPEDITIONARY FIGHTING VEHICLE CREWMAN Dilaudidn, used total of 1.4 mg. Adequate pain relief with scheduled [place] and PRN oxycodone. Problem: NEUROSENSORY - ADULT [...] 08/07/131950 Date of Service: 08/07/131937 Status: Signed Electroplater Automatic: Parviz Plata RN (Registered Nurse) NSG Arrival [...] t this time- instructed on use of EXPEDITIONARY FIGHTING VEHICLE CREWMAN(Dilaudid). Taking sips and chips. Denies nausea. Parviz Plata RN, 08/07/2013 7:38 PM [facility] Transaction, Provider Unknown - 08/07/2013 5:35 PM PDT Progress Notes by Priscila Prado PT at 08/07/131734 Author: Priscila Prado PT Service: (none) Author Type: Physical Therapist Filed: 08/07/131742 Date of Service: 08/07/131734 Status: Signed Electroplater Automatic: Priscila rPado PT (Physical Therapist) PHYSICAL THERAPY MED/SURG EVALUATION Duration of Session Time In: 1700 Time Out: 1730 PATIENT PROFILE Diagnosis: Acquired spondylolisthesis [738.4] (Acquired spondylolisthesis ) Surgery/Procedure: Procedure(s) with comments: FUSION SPINE LUMBAR POSTERIOR - 24936/93683/13614/12644 L4-5 POSTERIOR FUSION W/ JENNIFER XI A [...] 02/20 - pt indep with use of EXPEDITIONARY FIGHTING VEHICLE CREWMAN. Impairments/Functional Limitation: Post op day #0. Pt [...] for next visit: Assess gait, standing balance PT/LINING CLOSER order assistive devices prn Risks and benefits [...] | | | | | | [place] [address] | | | | | | [phone] | | | | | | | [...]
--- OUTSIDE RECORDS SUMMARY | ~2019-10-18 | XMS | Encounter Summary ---
Demographics + + + | Address | [address] | | | [place] [address] | + + + | Home Phone | | + + + | Preferred Language | Unknown | + + + | Marital Status | | + + + | Rastafari Affiliation | 1027 | + + + | Race | Unknown | + + + | Ethnic Group | Unknown | + + + Author + + + | Author | [facility] | | | and [place] | + + + | Organization | [facility] | [...] Team Providers + +------+ + | Care Box Toe Maker Name | Role | Phone | + +------+ + | Jesus Mijares MD | PCP | | + +------+ + Encounter Details +--------+ + + + + | Date | Type | Department | Care Team | Description | +--------+ + + + + | 05/30/ | Orders Only | [facility] | Conversion | | | 2018 | | NEPHROLOGY ELEAZAR | Transaction, | | | | | [address] | Provider Unknown | | | | | [address] [place], [place] | | | | | | [address] | (Fax) | | | | | [phone] | | | +--------+ + + + [...] | | | | | | [place] [address] | | | | | | [phone] | | | | | | | [...] | | | LAB | | | [facility] | | | | | + +---------+ [...]
--- OUTSIDE RECORDS SUMMARY | ~2019-10-18 | XMS | Encounter Summary ---
Demographics + + + | Address | [address] | | | [place] [address] | + + + | Home Phone | | + + + | Preferred Language | Unknown | + + + | Marital Status | | + + + | Samaritan Affiliation | 1027 | + + + [...] Team Providers + +------+ + | Care Undercollar Maker Name | Role | Phone | [...] | | | Christiano, | [address] | | | | | Trochanteric | Sheryl, | [place], | | | | | bursitis of | PA-C [address] | [place] | | | | | right hip | [address] | [address] | | | | | Procedures | [place] | Phone: | | | | | [place] | [address] | [phone] | | | | | and/or Inj | Phone: | Fax: | | | | | Major Joint | [phone] | [phone] | | | | | Right | Fax: | | | | | | | [phone] | | +--------+--------+ + + + + [...] | | | Christiano, | [address] | | | | | Trochanteric | Sheryl, | [place], | | | | | bursitis of | PA-C [address] | [place] | | | | | right hip | [address] | [address] | | | | | Procedures | [place], [place] | Phone: | | | | | [place] | [address] | [phone] | | | | | and/or Inj | Phone: | Fax: | | | | | Major Joint | [phone] | [phone] | | | | | Right | Fax: | | | | | | | [phone] | | +--------+--------+ + + + + Encounter Details +--------+ + + + + | Date | Type | Department | Care Team | Description | +--------+ + + + + | 02/06/ | Hospital | [facility] | Christiano, | Lumbar | | 2018 | Encounter | MED CTR XRAY [address] | GAMALIEL Saucedo [address] | radiculopathy; | | | | [place] | [address], | 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 | | | | [phone] | [phone] | without neurogenic | | | | | | claudication; | | | | | Classifier Tender, [facility] | DEGENERATIVE DISC | | | [...] | | | | | | [place] [address] | | | | | | [phone] | | | | | | | [...] 1:29 | | | | | ONCE, [facility] 02/06/18 at 1345, For 1 | [...] | | | | | Other, ONCE, [facility] 02/06/18 at 1345, | | PM PDT | | | | | For 1 dose | | | | | | + +-------+ +-------+---+---+ +---+---+ | | | +---+---+ + +-------+ +-------+---+---+ | lidocaine (PF) 1% injection 2 | Given | 02/07/20 | 2 mLs | | | | mL 2 mL, Other, ONCE, [facility] | | 18 1:30 | | [...] 18 1:32 | | | | | [facility] 02/06/18 at 1345, For 1 dose | | PM PDT | | | | + +-------+ +-------+---+---+ +---+---+ | | | +---+---+ + +-------+ +-------+---+ + | lidocaine buffered 1.5% | Given | 02/07/20 | 6 mLs | | Other | | injection 6 mL 6 mL, | | 18 1:24 | | | (Comment | | Intradermal, ONCE, [facility] 02/06/18 at | | PM PDT [...] PDT | | | | | ONCE, [facility] 02/06/18 at 1345, For 1 | [...]
--- OUTSIDE RECORDS SUMMARY | ~2019-10-18 | XMS | Encounter Summary ---
Demographics + + + | Address | [address] | | | [place] [address] | + + + | Home Phone [...] Team Providers + +------+ + | Care Developer Programmer Analyst Name | Role | Phone | [...] + + | 04/27/ | Telephone | [facility] | Capo Bermudez, | Results, Imaging | | 2019 | | PHYSIATRY [address] | PA-C [address] | (DEXA) | | | | [facility], | [address] [place] | | | | | [place] [address] | [place] [address] | | | | | [phone] | [phone] | | | | | | | [...] | | | | | | [place] [address] | | | | | | [phone] | | | | | | | [...]
--- OUTSIDE RECORDS SUMMARY | ~2019-10-18 | XMS | Encounter Summary ---
Demographics + + + | Address | [address] | | | [place] [address] | + + + | Home Phone | | + + + | Preferred Language | Unknown | + + + | Marital Status | | + + + | Spiritism Affiliation | 1027 | + + + | Race | Unknown | + + + | Ethnic Group | Unknown | + + + Author + + + | Author | [facility] | | | and [place] | + + + | Organization | [facility] | | [...] Providers + +------+ + | Care Associate [employer] Name | Role | Phone | + [...] | | | | | Procedures | [place], [place] | | | | | | [place] | [address] | | | | | | Joint | Phone: | | | | | | Injection | [phone] | | | | | | Right | Fax: | | | | | | | [phone] | | +--------+--------+ + + + + [...] | | | Christiano, | [address] | | | | | Trochanteric | Sheryl, | [place], | | | | | bursitis of | PA-C [address] | [place] | | | | | both hips | [address] | [address] | | | | | Lumbar | [place], [place] | Phone: | | | | | radiculopath | [address] | [phone] | | | | | y | Phone: | Fax: | | | | | Procedures | [phone] | [phone] | | | | | [place] Major | Fax: | | | | | | Joint | [phone] | | | | | | Injection | | | | | | | Left [place] | | | | | | [...] | | | | | ADD ON [place] | | | | | | [...] lumbar region - | | | | [place], | [address] [place], | L3/L4, 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 | [address] | [phone] | | [facility] | | [address] | | | - IMAGING | | [...] [address] | [address] Cam | [phone] | | [facility] | | [address] | | | - IMAGING | | [...]
--- OUTSIDE RECORDS SUMMARY | ~2019-10-18 | XMS | Encounter Summary ---
Demographics + + + | Address | [address] | | | [place] [address] | + + + | Home Phone | | + + + | Preferred Language | Unknown | + + + | Marital Status | | + + + | Mandaeism Affiliation | 1027 | + + + | Race | Unknown | + + + | Ethnic Group | Unknown | + + + Author + + + | Author | [facility] | | | and [place] | + + + | Organization | [facility] | [...] Team Providers + +------+ + | Care Marketing Effectiveness Manager Name | Role | Phone | [...] + + | 09/01/ | Procedure | [facility] | | Cardiac pacemaker in | | 2019 | visit | [facility] | | situ (Primary Dx) | | | | [address] | | | | | | [place], [place] | | | | | | [address] | | | | | | [phone] | | | +--------+ + + + [...] | | | | | | [place] [address] | | | | | | [phone] | | | | | | | [...] attached to scheduled encounter for additional details. lands resource manager: | | | Ignacio R | | |See device data attached to scheduled encounter for additional | | |details. | | | | | |lands resource manager: Ignacio R | | | | [...]
--- OUTSIDE RECORDS SUMMARY | ~2019-10-18 | XMS | Encounter Summary ---
Demographics + + + | Address | [address] | | | [place] [address] | + + + | Home Phone | | + + + | Preferred Language | Unknown | + + + | Marital Status | | + + + | Zoroastrianism Affiliation | 1027 | + + + [...] Team Providers + +------+ + | Care Air Compressor Engineer Name | Role | Phone | [...] | | | | | Procedures | [place], [place] | | | | | | [place] | [address] | | | | | | Joint | Phone: | | | | | | Injection | [phone] | | | | | | Right | Fax: | | | | | | | [phone] | | +--------+--------+ + + + + [...] | | | Christiano, | [address] | | | | | Trochanteric | [place]yl, | [place], | | | | | bursitis of | PA-C [address] | [place] | | | | | both hips | [address] | [address] | | | | | Lumbar | [place], [place] | Phone: | | | | | radiculopath | [address] | [phone] | | | | | y | Phone: | Fax: | | | | | Procedures | [phone] | [phone] | | | | | [place] Major | Fax: | | | | | | Joint | [phone] | | | | | | Injection | | | | | | | Left [place] | | | | | | [...] | | | | | ADD ON [place] | | | | | | [...] lumbar region - | | | | [address], | [address] [place], | L3/L4, adjacent | | | | [place] [address] | [place] [address] | segment disease | | | | [phone] | [phone] | (Primary Dx); Lumbar | | | [...] | | | | | | [place] [address] | | | | | | [phone] | | | | | | | [...] Transforaminal Epidural Steroid Injections and Right | [facility] | | Trochanteric Bursa Injection Diagnosis: [...] + + | Performing | Address | City/State[facility] | Phone Number | | Organization | | | | + + + + + | [facility] | [address] | [address] | [phone] | | [facility] | | [address] | | | - IMAGING | | [...] [address] | [address] | [phone] | | [facility] | | [address] | | | - IMAGING | | [...]
--- OUTSIDE RECORDS SUMMARY | ~2019-10-18 | XMS | Encounter Summary ---
Demographics + + + | Address | [address] | | | [place] [address] | + + + | Home Phone [...] + | Author | [facility] | | | and [place] | + + + | Organization | [facility] | | | and [...] Team Providers + +------+ + | Care Floor Worker Transfer [place] Name | Role | Phone | + +------+ + | Jesus Eagle MD | PCP | | + +------+ + Encounter Details +--------+ + + + + | Date | Type | Department | Care Team | Description | +--------+ + + + + | 03/28/ | Hospital | [facility] | Deidra, | Acute chest pain; | | 2015 - | Encounter | MEDICAL CENTER | MD [address] | Secondary | | | | CLINICAL DECISION | [address] | hypertension, | | 03/29/ | | [address] | [place] [address] | unspecified; Digoxin | | 2014 | | [place], [place] | [phone] | toxicity, | | | | [id number] | | undetermined intent, | | | | [phone] | | subsequent | | | | [...] as of this encounter Discharge Summaries Anne-Marie eBllo MD - 03/29/2015 4:43 PM PDT Discharge Summaries by Anne-Marie Bello MD at 03/29/15 2705 Author: Anne-Marie Bello MD Service: (none) Author Type: Physician Filed: 03/30/15 1422 Date of Service: 03/29/151642 Status: Signed Veterinary Poultry Inspector: Anne-Marie Bello MD (Physician) Related Notes: Original Note by Anne-Marie Bello MD (Physician) filed at 03/29/15 1650 [facility] Service: Hospitalist Physician Discharge Summary Patient [...] fibrillation, hypertension, hyperlipide katelin, was transferred from [facility] with chest pain. The patient has chest pressu re and her symptoms have been going on for about 5 days. Heart rate is in the 50s and 60s an d she was seen at [facility]. Digoxin level was 3.7 and the patient wa s transferred to [facility]. Her digoxin level was low at [facility] and she had serial cardiac enzymes, which [...] Disposition: Home Follow up: Emory Eagle MD [address] [place] [address] [address] [facility] [address] Schedule an appointment as soon as possible for a visit in 3 days Follow up echocardiogram results outpatient follow-up with cardiology, [facility] [place] [address] [facility] [address] [facility] [address] Schedule an appointment as soon as possible [...] summary. This entry has been created using ViewRay Speech Recognition software and [employer]. The entry has been reviewed and there [...] 03/29/151717 Date of Service: 03/29/151716 Status: Signed Veterinary Poultry Inspector: Kayley Mccarthy RN (Registered Nurse) Pt discharge [...] Date of Service: 03/29/15 1257 Status: Signed Veterinary Poultry Inspector: Jhoana Campbell RN (Registered Nurse) 03/29/15 1259 Discharge Planning Evaluation Admitting Diagnosis Chest Pain [...] Discharge No Mental Status Oriented Power of Clin Tech No;Other (comment) (provided POA and AD forms to patient) Anticipated Discharge Plan Post Acute Care Needs None at this time Plan communicated to patient/family Yes Resources Financial concerns No Transportation issues No Patient/Family concerns No Prescription Plan Yes Name of Pharmacy [place] [place] [facility] Previous home health equipment Yes Equipment Vendor see above Vascular access device No Ostomy/Drains/Appliances No Anticipated Disposition Facility Type Home Medicare Important Message (TANIA) Not applicable Met with: Pt and discussed discharge planning, Pt is a 75 y.o., female who lives with her amalia toddband and children in a private residence in [facility]. At this time she denies any tatiana ncial, safety, DME, support, or transportation needs. Patient's PCP is: EMORY EAGLE Patient's insurance: Medicare, [employer] Care Coverage concerns: no Medication coverage/concerns: no [...] 03/29/15218 Date of Service: 03/29/15218 Status: Signed Veterinary Poultry Inspector: Dora Dotson RPH (Pharmacist) Clinical Pharmacy Note: [...] | | | | | | [place] [address] | | | | | | [phone] | | | | | | | [...] | | | Fingerstick | performed at [facility];[address] | | LAB | | | [address];[place], [place] | | | | | | [address] | | | | + + + [...] | | | Fingerstick | performed at [facility];[address] | | LAB | | | [address];[place], [place] | | | | | | [address] | | | | + + + [...] | | | Fingerstick | performed at [facility];[address] | | LAB | | | | [address];[place] | | | | | | [address] | | | | + + + [...] is moderately enlarged. 7. | | | Rlzl-ou-hgrhbpdw mitral regurgitation is present. 8. Moderate | [...] | | | is moderately enlarged. 7. Voij-nb-fpboeffk mitral regurgitation is | | | present. [...] mitral valve. Mitral | | | Valve: Xmqd-cd-yhdrcsgi mitral regurgitation is present. Mitral | | [...] | | | Excursion: 2.04 cm E-F Fergus: 0.12 m/s IVC diameter: 2.34 | | | cm IVC collapse: 0.39 cm IVC % collapse: 80.99 % AR Dec | | | Fergus: 1.14 m/s2 AR Dec Time: 1303.55 ms [...] TV A Rubin: 0.47 m/s TV Dec Fergus: 2.03 m/s2 | | | TV Dec Time: 324.24 ms TV E Rubin: 0.66 m/s TV E/A Ratio: | | | 1.38 Commodity Industry Analyst: Authenticated by: JONATHAN FOWLER MD Report | | | Date/Time: -- [id number]:34:23 | | + + + + + [...] right atrium is moderately enlarged.7. | | Qkxh-us-mbbxvhzj mitral regurgitation is present.8. Moderate tricuspid regurgitation [...] Normal appearing mitral valve.Mitral | | Valve: Cgqq-xc-pnqmegyr mitral regurgitation is present.Mitral Valve: Mild thickening [...] mlLAESV Index (A-L): 31.25 ml/m2LAAs A2C: 18.38 [id number] A-L A2C: 52.98 mlLALs | | A2C: 5.41 cmLAAs A4C: 21.69 [id number] A-L A4C: 64.70 mlLALs A4C: 6.17 cmAo Diam: | | 3.26 cmAV Cusp: 2.25 cmLA Diam: 4.30 cmLA/Ao: 1.31%FS: 44.17 %EDV(Teich): | | 135.56 mlEF(Teich): 74.99 %ESV(Teich): 33.89 mlIVSd: 1.17 cmIVSs: 1.74 cmLVIDd: | | 5.30 cmLVIDs: 2.96 cmLVPWd: 1.25 cmLVPWs: 2.09 cmSV(Teich): 101.66 mlD-E | | Excursion: 2.04 cmE-F Fergus: 0.12 m/sIVC diameter: 2.34 cmIVC collapse: 0.39 | | cmIVC % collapse: 80.99 %AR Dec Fergus: 1.14 m/s2AR Dec Time: 1303.55 msAR maxPG: | | 8.90 mmHgAR PHT: 378.03 msAR Vmax: 1.49 m/sHR: 54.35 BPMAV maxP.35 mmHgAV | | meanP.15 mmHgAV Vmax: 2.25 m/Vikas Vmean: 1.30 m/Vikas VTI: 45.07 cmAVA Vmax: | | 2.30 cm2AVA (VTI): 2.44 mb6KOHL Dopp: 2.96 l/ccdc6JFLC Dopp: 5.93 l/minHR: 53.85 | | BPMLVOT maxP.23 mmHgLVOT meanP.39 mmHgLVSI Dopp: 55.10 ml/m2LVSV Dopp: | | 110.20 mlLVOT Vmax: 1.34 m/sLVOT Vmean: 0.84 m/sLVOT VTI: 28.49 cmMR maxPG: | | 109.78 mmHgMR Vmax: 5.23 m/sMV A Rubin: 0.29 m/sMV DecT: 229.92 msMV E Rubin: 1.17 | | m/sMV E/A Ratio: 3.95MV PHT: 69.29 msMVA By PHT: 3.17 pb7Bttedd e': 0.05 | | m/sSeptal E/e': 21.58Lateral [...] 2.82 m/sTV A Rubin: 0.47 m/sTV Dec Fergus: 2.03 m/s2TV Dec Time: | | 324.24 msTV E Rubin: 0.66 m/sTV E/A Ratio: 1.38 Commodity Industry Analyst: ASAuthenticated by: | | JONATHAN FOWLER [facility]OSPITALeport Date/Time: -- [id number]:34:23 IMPRESSION: 1. Overall left | | ventricular [...] right atrium is moderately | | enlarged.7. Odwa-zv-csxbovdr mitral regurgitation is present.8. Moderate tricuspid | [...] | |D-E Excursion: 2.04 cm | |E-F Fergus: 0.12 m/s | |IVC diameter: 2.34 cm | |IVC collapse: 0.39 cm | |IVC % collapse: 80.99 % | |AR Dec Fergus: 1.14 m/s2 | |AR Dec Time: 1303.55 [...] A Rubin: 0.47 m/s | |TV Dec Fergus: 2.03 m/s2 | |TV Dec Time: 324.24 ms | |TV E Rubin: 0.66 m/s | |TV E/A Ratio: 1.38 | | | |Commodity Industry Analyst: | |Authenticated by: JONATHAN FOWLER MD | |Report Date/Time: -[id number]:34:23 | | | |IMPRESSION: | |1. Overall [...] right atrium is moderately enlarged. | |7. Dmug-vj-lrvmdrme mitral regurgitation is present. | |8. Moderate [...] | | | Fingerstick | performed at [facility];[address] | | LAB | | | | [address];[place], [place] | | | | | | [address] | | | | + + + [...] EXTERNAL | | | | performed at [facility];[address] | | LAB | | | | [address];[place], [place] | | | | | | [address] | | | | + + + [...] | | | | | | ACUTE [place] Testing | | | | | | performed at [facility];[address] | | | | | | [address];[place], [place] | | | | | | [address] | | | | + + + [...] | | | | | [place] [address] | | | | + + + + + + | RED CELL | 3.90Comment: Testing | 3.70 - 5.10 | EXTERNAL | | | COUNT | performed at [facility], [address] | M/uL | LAB | | | | [address], | | | | | | [place] [address] | | | | + + + + + + | Hgb | 12.2Comment: Testing | 11.3 - 15.5 | EXTERNAL | | | | performed at [facility], [address] | g/dL | LAB | | | | [address], | | | | | | [place] [address] | | | | + + + + + + | Hematocrit, | 36.7Comment: Testing | 34.0 - 46.0 % | EXTERNAL | | | POC | performed at [facility], [address] | | LAB | | | | [address], | | | | | | [place] [address] | | | | + + + + + + | MCV | 94.1Comment: Testing | 80.0 - 100.0 fl | EXTERNAL | | | | performed at [facility], [address] | | LAB | | | | [address], | | | | | | [place] [address] | | | | + + + + + + | MCH | 31.3Comment: Testing | 27.0 - 34.0 pg | EXTERNAL | | | | performed at [facility], [address] | | LAB | | | | [address], | | | | | | [place] [address] | | | | + + + + + + | MCHC | 33.3Comment: Testing | 32.0 - 35.5 | EXTERNAL | | | | performed at [facility], [address] | g/dL | LAB | | | | [address], | | | | | | [place] [address] | | | | + + + + + + | RDW-CV | 41.1Comment: Testing | 37 - 53 fl | EXTERNAL | | | | performed at [facility], [address] | | LAB | | | | [address], | | | | | | [place] [address] | | | | + + + + + + | Platelet | 276Comment: Testing | 150 - 400 K/uL | EXTERNAL | | | Count | performed at [facility], [address] | | LAB | | | Plasma | [address], | | | | | | [place] [address] | | | | + + + + + + | MPV | 8.1Comment: Testing | fl | EXTERNAL | | | | performed at [facility], [address] | | LAB | | | | [address], | | | | | | [place] [address] | | | | + + + + + + | Differentia | AUTOMATEDComment: | | EXTERNAL | | | l Type | Testing performed at | | LAB | | | | [facility], [address] | | | | | | [place] | | | | | | [address] | | | | + + + + + + | % Segmented | 64.20Comment: Testing | % | EXTERNAL | | | | performed at [facility], [address] | | LAB | | | Neutrophils | [address], | | | | | | [place] [address] | | | | + + + + + + | % | 24.61Comment: Testing | % | EXTERNAL | | | Lymphocytes | performed at [facility], [address] | | LAB | | | | [address], | | | | | | [place] [address] | | | | + + + + + + | % Monocytes | 8.05Comment: Testing | % | EXTERNAL | | | | performed at [facility], [address] | | LAB | | | | [address], | | | | | | [place] [address] | | | | + + + + + + | % | 2.30Comment: Testing | % | EXTERNAL | | | Eosinophils | performed at [facility], [address] | | LAB | | | | [address], | | | | | | [place] [address] | | | | + + + + + + | % Basophils | 0.84Comment: Testing | % | EXTERNAL | | | | performed at [facility], [address] | | LAB | | | | [address], | | | | | | [place] [address] | | | | + + + + + + | Absolute | 5.25Comment: Testing | 1.90 - 7.40 | EXTERNAL | | | Segmented | performed at [facility], [address] | K/uL | LAB | | | Neutrophils | [address], | | | | | | [place] [address] | | | | + + + + + + | Absolute | 2.01Comment: Testing | 1.00 - 3.90 | EXTERNAL | | | Lymphocytes | performed at [facility], [address] | K/uL | LAB | | | | [address], | | | | | | [place] [address] | | | | + + + + + + | Absolute | 0.66Comment: Testing | 0.00 - 0.80 | EXTERNAL | | | Monocytes | performed at [facility], [address] | K/uL | LAB | | | | [address], | | | | | | [place] [address] | | | | + + + + + + | Absolute | 0.19Comment: Testing | 0.00 - 0.50 | EXTERNAL | | | Eosinophils | performed at [facility], [address] | K/uL | LAB | | | | [address], | | | | | | [place] [address] | | | | + + + + + + | Absolute | 0.07Comment: Testing | 0.00 - 0.10 | EXTERNAL | | | Basophils | performed at [facility], [address] | K/uL | LAB | | | | [address], | | | | | | [place] [address] | | | | + + + [...] EXTERNAL | | | | performed at [facility], [address] | uIU/mL | LAB | | | | [address], | | | | | | [place] [address] | | | | + + + [...] | | | | | [place] [address] | | | | + + + [...] EXTERNAL | | | | performed at [facility], [address] | | LAB | | | | [address], | | | | | | [place] [address] | | | | + + + [...] | EXTERNAL | | | A1c | [place] [facility] | | LAB | | | [...] | | | | | performed at [facility], [address] | | | | | | [address], | | | | | | [place] [address] | | | | + + + [...] | | | | | performed at [facility], [address] | | | | | | [facility], | | | | | | [place] [address] | | | | + + + [...] EXTERNAL | | | | performed at [facility];[address] | | LAB | | | [address];[place], [place] | | | | | | [address] | | | | + + + [...] | | | Total | performed at [facility], [address] | | LAB | | | | [address], | | | | | | [place] [address] | | | | + + + + + + | Albumin | 3.7Comment: Testing | 3.3 - 4.8 g/dL | EXTERNAL | | | | performed at [facility], [address] | | LAB | | | | [address], | | | | | | [place] [address] | | | | + + + + + + | Bilirubin | 1.0Comment: Testing | 0.1 - 1.5 mg/dL | EXTERNAL | | | Total | performed at [facility], [address] | | LAB | | | | [address], | | | | | | [place] [address] | | | | + + + + + + | Bilirubin | 0.2Comment: Testing | 0.0 - 0.3 mg/dL | EXTERNAL | | | Direct | performed at [facility], [address] | | LAB | | | | [address], | | | | | | [place] [address] | | | | + + + + + + | ALP, | 66Comment: Testing | 35 - 115 U/L | EXTERNAL | | | External | performed at [facility], [address] | | LAB | | | | [address], | | | | | | [place] [address] | | | | + + + + + + | AST | 16Comment: Testing | 10 - 45 U/L | EXTERNAL | | | | performed at [facility], [address] | | LAB | | | | [address], | | | | | | [place] [address] | | | | + + + + + + | ALT | 9 (L)Comment: Testing | 10 - 65 U/L | EXTERNAL | | | | performed at [facility], [address] | | LAB | | | | [address], | | | | | | [place] [address] | | | | + + + [...] EXTERNAL | | | | performed at [facility], [address] | | LAB | | | | [address], | | | | | | [place] [address] | | | | + + + + + + | Triglycerid | 142Comment: Testing | mg/dL | EXTERNAL | | | es | performed at [facility], [address] | | LAB | | | | [address], | | | | | | [place] [address] | | | | + + + + + + | HDL | 27 (L)Comment: Testing | mg/dL | EXTERNAL | | | | performed at [facility], [address] | | LAB | | | | [address], | | | | | | [place] [address] | | | | + + + + + + | LDL | 33Comment: Testing | mg/dL | EXTERNAL | | | Cholesterol | performed at [facility], [address] | | LAB | | | , | [address], | | | | | Calculated, | [place] [address] | | | | | External | [...] | | | | | [place] [address] | | | | + + + + + + | K | 3.7Comment: Testing | 3.5 - 4.9 | EXTERNAL | | | | performed at [facility], [address] | mmol/L | LAB | | | | [address], | | | | | | [place] [address] | | | | + + + + + + | Cl | 103Comment: Testing | 99 - 109 mmol/L | EXTERNAL | | | | performed at [facility], [address] | | LAB | | | | [address], | | | | | | [place] [address] | | | | + + + + + + | CO2 | 32Comment: Testing | 23 - 32 mmol/L | EXTERNAL | | | | performed at [facility], [address] | | LAB | | | | [address], | | | | | | [place] [address] | | | | + + + + + + | Anion Gap | 9Comment: Testing | 5 - 20 mmol/L | EXTERNAL | | | | performed at [facility], [address] | | LAB | | | | [address], | | | | | | [place] [address] | | | | + + + + + + | Glucose, | 123 (H)Comment: Testing | 65 - 99 mg/dL | EXTERNAL | | | Fasting | performed at [facility], [address] | | LAB | | | | [address], | | | | | | [place] [address] | | | | + + + + + + | BUN | 15Comment: Testing | 8 - 25 mg/dL | EXTERNAL | | | | performed at [facility], [address] | | LAB | | | | [address], | | | | | | [place] [address] | | | | + + + + + + | Creatinine | 0.99Comment: Testing | 0.50 - 1.00 | EXTERNAL | | | | performed at [facility], [address] | mg/dL | LAB | | | | [address], | | | | | | [place] [address] | | | | + + + + + + | BUN/Creatin | 15Comment: Testing | | EXTERNAL | | | ine Ratio | performed at [facility], [address] | | LAB | | | | [address], | | | | | | [place] [address] | | | | + + + + + + | Calcium | 9.4Comment: Testing | 8.5 - 10.5 | EXTERNAL | | | | performed at [facility], [address] | mg/dL | LAB | | | | [address], | | | | | | [place] [address] | | | | + + + + + + | Protein, | 6.0 (L)Comment: Testing | 6.3 - 8.2 g/dL | EXTERNAL | | | Total | performed at [facility], [address] | | LAB | | | | [address], | | | | | | [place] [address] | | | | + + + + + + | Albumin | 3.7Comment: Testing | 3.3 - 4.8 g/dL | EXTERNAL | | | | performed at [facility], [address] | | LAB | | | | [address], | | | | | | [place] [address] | | | | + + + + + + | Globulin | 2.3Comment: Testing | 1.3 - 4.9 g/dL | EXTERNAL | | | | performed at [facility], [address] | | LAB | | | | [address], | | | | | | [place] [address] | | | | + + + + + + | A/G Ratio | 1.6Comment: Testing | 1.0 - 2.4 | EXTERNAL | | | | performed at [facility], [address] | | LAB | | | | [address], | | | | | | [place] [address] | | | | + + + + + + | Bilirubin | 1.0Comment: Testing | 0.1 - 1.5 mg/dL | EXTERNAL | | | Total | performed at [facility], [address] | | LAB | | | | [address], | | | | | | [place] [address] | | | | + + + + + + | ALP, | 66Comment: Testing | 35 - 115 U/L | EXTERNAL | | | External | performed at [facility], [address] | | LAB | | | | [address], | | | | | | [place] [address] | | | | + + + + + + | AST | 13Comment: Testing | 10 - 45 U/L | EXTERNAL | | | | performed at [facility], [address] | | LAB | | | | [address], | | | | | | [place] [address] | | | | + + + + + + | ALT | 11Comment: Testing | 10 - 65 U/L | EXTERNAL | | | | performed at [facility], [address] | | LAB | | | | [facility], | | | | | | [place] [address] | | | | + + + [...] | | | | | | at [facility], [address] | | | | | | [facility], | | | | | | [place] [address] | | | | + + + [...] + + | Historically converted procedure from [facility] | EXTERNAL LAB | + + + [...] EXTERNAL | | | | performed at [facility] | | LAB | | | | [address];[place], [place] | | | | | | [address] | | | | + + + + + + | CK-MB Index | UNABLE TO | | EXTERNAL | | | | CALCULATEComment: | | LAB | | | | Testing performed at | | | | | | [facility];[address] [facility] | | | | | | [address]vd;[place] [address] | | | | + + + [...] | | | | | | ACUTE [place] Testing | | | | | | performed at [facility] | | | | | | [facility];[place], [place] | | | | | | [address] | | | | + + + [...] EXTERNAL | | | | performed at [facility];[address] | | LAB | | | | [address];[place] | | | | | | [address] | | | | + + + [...] | | | Fingerstick | performed at [facility];[address] | | LAB | | | | [address];[place], [place] | | | | | | [address] | | | | + + + [...] | | | | | | ACUTE [place] Testing | | | | | | performed at [facility];[address] | | | | | | [facility];[place], [place] | | | | | | [address] | | | | + + + [...] EXTERNAL | | | | performed at [facility];[address] | K[address]uL | LAB | | | | [address];[place] | | | | | | [address] | | | | + + + + + + | RED CELL | 4.12Comment: Testing | 3.70 - 5.10 | EXTERNAL | | | COUNT | performed at [facility];[address] | M/uL | LAB | | | | [address];[place] | | | | | | [address] | | | | + + + + + + | Hgb | 13.1Comment: Testing | 11.3 - 15.5 | EXTERNAL | | | | performed at [facility];[address] | g/dL | LAB | | | | [address];[place] | | | | | | [address] | | | | + + + + + + | Hematocrit, | 38.6Comment: Testing | 34.0 - 46.0 % | EXTERNAL | | | POC | performed at [facility];[address] | | LAB | | | | [address];[place] | | | | | | [address] | | | | + + + + + + | MCV | 93.7Comment: Testing | 80.0 - 100.0 fl | EXTERNAL | | | | performed at [facility];[address] | | LAB | | | | [address];[place] | | | | | | [address] | | | | + + + + + + | MCH | 31.9Comment: Testing | 27.0 - 34.0 pg | EXTERNAL | | | | performed at [facility];[address] | | LAB | | | | [address];[place] | | | | | | [address] | | | | + + + + + + | MCHC | 34.0Comment: Testing | 32.0 - 35.5 | EXTERNAL | | | | performed at [facility];[address] | g/dL | LAB | | | | [address];[place] | | | | | | [address] | | | | + + + + + + | RDW-CV | 41.6Comment: Testing | 37 - 53 fl | EXTERNAL | | | | performed at [facility];[address] | | LAB | | | | [address];[place] | | | | | | [address] | | | | + + + + + + | Platelet | 264Comment: Testing | 150 - 400 K/uL | EXTERNAL | | | Count | performed at [facility];[address] | | LAB | | | Plasma | [address];[place] | | | | | | [address] | | | | + + + + + + | MPV | 7.5Comment: Testing | fl | EXTERNAL | | | | performed at [facility];[address] | | LAB | | | | [address];[place] | | | | | | [address] | | | | + + + + + + | Differentia | AUTOMATEDComment: | | EXTERNAL | | | l Type | Testing performed at | | LAB | | | | [place];[address];[place] [address] | | | | + + + + + + | % Segmented | 64.94Comment: Testing | % | EXTERNAL | | | | performed at [facility];[address] | | LAB | | | Neutrophils | [address];[place] | | | | | | [address] | | | | + + + + + + | % | 24.79Comment: Testing | % | EXTERNAL | | | Lymphocytes | performed at [facility];[address] | | LAB | | | | [address];[place] | | | | | | [address] | | | | + + + + + + | % Monocytes | 7.10Comment: Testing | % | EXTERNAL | | | | performed at [facility];[address] | | LAB | | | | [address];[place] | | | | | | [address] | | | | + + + + + + | % | 2.09Comment: Testing | % | EXTERNAL | | | Eosinophils | performed at [facility] [place];[address] | | LAB | | | | [address];[place] | | | | | | [address] | | | | + + + + + + | % Basophils | 1.08Comment: Testing | % | EXTERNAL | | | | performed at [facility] [place];[address] | | LAB | | | | [address];[place] | | | | | | [address] | | | | + + + + + + | Absolute | 5.78Comment: Testing | 1.90 - 7.40 | EXTERNAL | | | Segmented | performed at [facility] [place];[address] | K/uL | LAB | | | Neutrophils | [address];[place] | | | | | | [address] | | | | + + + + + + | Absolute | 2.21Comment: Testing | 1.00 - 3.90 | EXTERNAL | | | Lymphocytes | performed at [facility] [place];[address] | K[address] | LAB | | | | [address];[place] | | | | | | [address] | | | | + + + + + + | Absolute | 0.63Comment: Testing | 0.00 - 0.80 | EXTERNAL | | | Monocytes | performed at [facility] [place];[address] | K/uL | LAB | | | | [address];[place] | | | | | | [address] | | | | + + + + + + | Absolute | 0.19Comment: Testing | 0.00 - 0.50 | EXTERNAL | | | Eosinophils | performed at [facility] [place];[address] | K/uL | LAB | | | | [address];[place] | | | | | | [address] | | | | + + + + + + | Absolute | 0.10Comment: Testing | 0.00 - 0.10 | EXTERNAL | | | Basophils | performed at [facility] [place];[address] | K/uL | LAB | | | | [address];[place] | | | | | | [address] | | | | + + + [...] | | Last Dose | performed at [facility] [place];[address] | | LAB | | | | [address];[place] | | | | | | [address] | | | | + + + + + + | Time of | UNKNOWNComment: Testing | | EXTERNAL | | | Last Dose | performed at [facility];888 | | LAB | | | | [address];[place] | | | | | | [address] | | | | + + + + + + | Digoxin | 0.3 (L)Comment: Testing | 0.90 - 2.00 | EXTERNAL | | | level | performed at [facility];888 | ng/mL | LAB | | | | [address];[place] | | | | | | [address] | | | | + + + [...] EXTERNAL | | | | performed at [facility];888 | mmol/L | LAB | | | | [address];[place], [place] | | | | | | [address] | | | | + + + + + + | K | 3.8Comment: Testing | 3.5 - 4.9 | EXTERNAL | | | | performed at [facility];888 | mmol/L | LAB | | | | [address];[place] | | | | | | [address] | | | | + + + + + + | Cl | 103Comment: Testing | 99 - 109 mmol/L | EXTERNAL | | | | performed at [facility];888 | | LAB | | | | [address];[place] | | | | | | [address] | | | | + + + + + + | CO2 | 30Comment: Testing | 23 - 32 mmol/L | EXTERNAL | | | | performed at [facility];888 | | LAB | | | | [address];[place] | | | | | | [address] | | | | + + + + + + | Anion Gap | 11Comment: Testing | 5 - 20 mmol/L | EXTERNAL | | | | performed at [facility];888 | | LAB | | | | [address];[place] | | | | | | [address] | | | | + + + + + + | Glucose, | 197 (H)Comment: Testing | 65 - 99 mg/dL | EXTERNAL | | | Fasting | performed at [facility];888 | | LAB | | | | [address];[place] | | | | | | [address] | | | | + + + + + + | BUN | 16Comment: Testing | 8 - 25 mg/dL | EXTERNAL | | | | performed at [facility];888 | | LAB | | | | [address];[place] | | | | | | [address] | | | | + + + + + + | Creatinine | 1.10 (H)Comment: Testing | 0.50 - 1.00 | EXTERNAL | | | | performed at [facility];888 | mg/dL | LAB | | | | [address];[place] | | | | | | [address] | | | | + + + + + + | BUN/Creatin | 14Comment: Testing | | EXTERNAL | | | ine Ratio | performed at [facility];888 | | LAB | | | | [address];[place] | | | | | | [address] | | | | + + + + + + | Calcium | 9.1Comment: Testing | 8.5 - 10.5 | EXTERNAL | | | | performed at [facility];888 | mg/dL | LAB | | | | [address];[place] | | | | | | [address] | | | | + + + + + + | Protein, | 6.9Comment: Testing | 6.3 - 8.2 g/dL | EXTERNAL | | | Total | performed at [facility];888 | | LAB | | | | [address];[place] | | | | | | [address] | | | | + + + + + + | Albumin | 3.7Comment: Testing | 3.3 - 4.8 g/dL | EXTERNAL | | | | performed at [facility];888 | | LAB | | | | [address];[place] | | | | | | [address] | | | | + + + + + + | Globulin | 3.1Comment: Testing | 1.3 - 4.9 g/dL | EXTERNAL | | | | performed at [facility];888 | | LAB | | | | [address];[place] | | | | | | [address] | | | | + + + + + + | A/G Ratio | 1.2Comment: Testing | 1.0 - 2.4 | EXTERNAL | | | | performed at [facility];888 | | LAB | | | | [address];[place] | | | | | | [address] | | | | + + + + + + | Bilirubin | 0.9Comment: Testing | 0.1 - 1.5 mg/dL | EXTERNAL | | | Total | performed at [facility];888 | | LAB | | | | [address];[place] | | | | | | [address] | | | | + + + + + + | ALP, | 88Comment: Testing | 35 - 115 U/L | EXTERNAL | | | External | performed at [facility];888 | | LAB | | | | [address];[place] | | | | | | [address] | | | | + + + + + + | AST | 16Comment: Testing | 10 - 45 U/L | EXTERNAL | | | | performed at [facility];888 | | LAB | | | | [address];[place] | | | | | | [address] | | | | + + + + + + | ALT | 16Comment: Testing | 10 - 65 U/L | EXTERNAL | | | | performed at [facility];888 | | LAB | | | | [address];[place] | | | | | | [address] | | | | + + + [...] | | | | | | at [facility];[address] [place] [address] | | | | | | [facility];[place] [address] | | | | + + + [...] (500), | | | | | | senior technical editor Flora Francisco | | | | | | (25) on 03/29/2015 | | | | | | 1:03:13 AM | | | | + + + + + + + + | Specimen | + + | | + + + + + | Narrative | Performed At | + + + | Historically converted procedure from [facility] Epic environment | EXTERNAL LAB | + [...]
--- OUTSIDE RECORDS SUMMARY | ~2019-10-18 | XMS | Encounter Summary ---
Demographics + + + | Address | [address] | | | [place] [address] | + + + | Home Phone [...] Team Providers + +------+ + | Care Dragline Operator Name | Role | Phone | [...] + + | 07/31/ | Office | [facility] | [place], | Lumbar radiculopathy | | 2018 | Visit | [address]SIATRY [address] | [address] | (Primary Dx); | | | | [place], | [place] [facility], | Spinal stenosis [place] | | | | [place] [address] | [place] [address] | lumbar region | | | | [phone] | [phone] | without neurogenic | | | | [...] of the procedure you must provide a waste collection driver to take you home. For all [...] in [address] 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 Unfortunately she continue s to have significant [...] | | | | | | [place] [address] | | | | | | [phone] | | | | | | | [...]
--- OUTSIDE RECORDS SUMMARY | ~2019-10-18 | XMS | Clinical Summary ---
Demographics + + + | Address | [address] | | | [place] [address] | + + + | Home Phone | | + + + | Preferred Language | Unknown | + + + | Marital Status | | + + + | Yazidi Affiliation | 1027 | + + + [...] Team Providers + +------+ + | Care Greeting Card Writer Name | Role | Phone | [...] ---------+ | Overview: Sylvia S-53 cm, model 674786, #[id number] lead was | | placed into the right ventricle and screwed intoposition on the | | septum, midway between the apex and outflow tract. Thefinal | | pacing threshold was 1 V at 0.5 msec, with R waves of 5.9 mV and | | theimpedance was 550 ohms. There was no diaphragmatic pacing at | | 10 V. [employer] model 5076-45 cm lead was placed into [...] ohms. The leads were attached to a [employer] Etrinsa 8 | | , model 168366,serial #[id number] pacemaker. FINAL | | SETTINGS FOR THE [...] 2019 | Visit | | | flutter ([facility]) | | | | | | (Primary Dx); PSVT | | | | | | (paroxysmal | | | | | | supraventricular | | | | | | tachycardia) ([facility]); | | | | | | Paroxysmal atrial | | | | | | fibrillation ([facility]); | | | | | | Hypertension, | | | | | | unspecified type; | | | | | | Congestive heart | | | | | | failure, unspecified | | | | | | HF chronicity, | | | | | | unspecified heart | | | | | | failure type ([facility]); | | | | | | Cardiac pacemaker in | | | | | | situ | +--------+ + + + + | 09/22/ | Procedure | Cardiology | | Sick sinus syndrome | | 2019 | visit | | | ([facility]) (Primary Dx); | | | | | | Chronic diastolic | | | | | | heart failure ([facility]); | | | | | | Cardiac pacemaker | | | | | | in situ; Paroxysmal | | | | | | atrial fibrillation | | | | | | ([facility]) | +--------+ + + + + | [...] of | | | | | | senior living | | | | | | anticoagulation; [...] | | | | fibrillation ([facility]); | | | | | | Age-related [...] 2018 | Visit | | | flutter ([facility]) | | | | | | (Primary Dx); PSVT | | | | | | (paroxysmal | | | | | | supraventricular | | | | | | tachycardia) ([facility]); | | | | | | Cardiac pacemaker in | | | | | | situ; Congestive | | | | | | heart failure, | | | | | | unspecified HF | | | | | | chronicity, | | | | | | unspecified heart | | | | | | failure type ([facility]); | | | | | | Paroxysmal atrial | | | | | | fibrillation ([facility]); | | | | | | Hypertension, | | | | | | unspecified type; | | | | | | Sick sinus syndrome | | | | | | ([facility]) | +--------+ + + + + | 08/31/ | Telephone | Cardiology | Macey Goel | CHF Management | | 2018 | | | NITROGLYCERIN NITRATOR OPERATOR BATCH | | +--------+ + + + + | 08/27/ | Procedure | Cardiology | Goeljanuary, | Cardiac pacemaker in | | 2019 | visit | | NITROGLYCERIN NITRATOR OPERATOR BATCH | situ (Primary Dx) | +--------+ + [...] | Kana | | | | | [place] | | + + + + + | High cholesterol | Brotheddie | Kana | from stroke age 75 | | | | [place] | | + + + + + | Arthritis | Mother | Ada | Hands | | | | [place] | | + + + + + + + +--------+ + | Relation | Name | Status | Comments | + + +--------+ + | Brother | Kana | | | | | [place] | | | + + +--------+ + | Mother | Ada | | | | | [place] | | | + + +--------+ + [...] | | | | | | [place] [address] | | | | | | [phone] | | | | | | | [...] Generi | | MCGRATH | | | [id number] | | 10ml - [id number]: | c | | BIOSCIENCE | | | 2 / | | Qty: 1 on 08/07/2013 | | | - BAXB | | | /[id number] | | | | | | | | 630 | + +--------+------+ +--------+--------+--------+ | Screw Edda Polyaxial 6.5x40mm | Implan | | JENNIFER | | | [id number] | | - [id number]: Qty: 3 | t | | MEDICAL - | | | 40 / / | | on 08/07/2013 | Ortho | | STRY | | | | + +--------+------+ +--------+--------+--------+ | Screw Edda Polyaxial 7.5x40mm | Implan | | JENNIFER | | | [id number] | | - [id number]: Qty: 1 | t | | MEDICAL - | | | 40 / / | | on 08/07/2013 | Ortho | | STRY | | | | + +--------+------+ +--------+--------+--------+ | Alia Nut Edda 04.5mm - | Implan | | JENNIFER | | | [id number] | | [id number]: Qty: 4 on | t | | MEDICAL - | | | 00 / / | | 08/07/2013 | Ortho | | STRY | | | | + +--------+------+ +--------+--------+--------+ | Yvonne Pritchett 0d 11mm | Implan | | JENNIFER | | | [id number] | | 10x33 - [id number]: | t | | MEDICAL - | | | 00 / / | | Qty: 1 on 08/07/2013 | Ortho | | STRY | | | | + +--------+------+ +--------+--------+--------+ | Yong Edda 3 Prebent Ti 4.5x40mm | Implan | | JENNIFER | | | [id number] | | - [id number]: Qty: 1 | t | | MEDICAL - | | | 040 / | | on 08/07/2013 | Ortho | | STRY | | | / | + +--------+------+ +--------+--------+--------+ | Yong Edda 3 Precut Ti 4.5x45mm | Implan | | JENNIFER | | | [id number] | | - [id number]: Qty: 1 | t | | MEDICAL [...] | e | 9:47 AM | flutter ([facility]) PSVT | procedure are in the | | | | PST | (paroxysmal | results section. | | | | | supraventricular | | | | | | tachycardia) ([facility]) | | | | | | Paroxysmal atrial | | | | | | fibrillation ([facility]) | | + +--------+ + + + [...] | e | 2:35 PM | exterminator helper termite | procedure are in the | | [...] | | | | | | tachycardia) ([facility]) | | + +--------+ + + + [...] | | | | | by [facility] [place] Read Only, | | | | | | [employer] Leonard (483), | | | | | | purchasing expeditor Kervin Coker | | | | | | (502) on 09/22/2019 | | | | | [...] + + + | Lambert Renae | RIGOBRETO | | Jose Technologist 09/22/2019 10:18 AMDevice interrogation | | | done by Mary Moe Any events or changes listed in office note. See | | | device data attached to scheduled encounter for additional details. | | | brim pouncer: Benjamin Garcia, brim pouncer [facility] | | |See device data attached to scheduled encounter for additional | | |details. | | | | | |brim pouncer: Benjamin Garcia, brim pouncer [facility] | | | | | | [...] | + + + + + | [facility] | [address] | [place] [address] | [phone] | | GELY MACE | | | [...] Procedure Note | + + | Ignacio Bnez Technologist - 08/27/2019 9:55 AM PST Alert [...] +--------+ +---------+--------+ | MEDICARE | MEDICA | [id number] | 02/12/20 | [phone] | | Medica | | | RE | | 07-Pre | 5 | | re | | | PART A | | sent | | | | | | AND B | | | | | | + +--------+ +--------+ +---------+--------+ | AARP | AARP | [id number] | 02/12/20 | [phone] | | Indemn | | | MDCR | | 07-Pre | 0 | | ity | | | SUPPL | | sent | | | | + +--------+ +--------+ +---------+--------+ | MEDICARE | MEDICA | [id number] | 02/12/20 | [phone] | | Medica | | | RE | | 07-Pre | 5 | | re | | | PART A | | sent | | | | | | AND B | | | | | | + +--------+ +--------+ +---------+--------+ | AARP | AARP | [id number] | 10/14/19 | [phone] | | Indemn [...] Person | Self | [birth year] | [address] | | | al/Fam | | 1940 | [phone] | [place], [place] | | | marg[place]ita | | | 5 (Home) | [address] | + +--------+ +--------+ + + | Rebecca Castillo Ada | Person | Self | [birth year] | | [address] | | | al/Fam | | 1940 | [phone] | [place], [place] | | | marg[place]ita | | | 5 (Home) | [address] | + +--------+ +--------+ + + Advance Directives + + + + + | Type | Date Recorded | Patient | Explanation | | | | Extension Associate | | + + + + + | Power of | | | | | Boat Pilot | | | | + + + + + | Advance | 12/01/2018 3:06 | | | | Directive | PM | | | + + + + +
--- OUTSIDE RECORDS SUMMARY | ~2019-10-18 | XMS | Encounter Summary ---
Demographics + + + | Address | [address] | | | [place] [address] | + + + | Home Phone [...] Team Providers + +------+ + | Care Hospice Art Therapist Name | Role | Phone | + +------+ + | Jesus iMjares MD | PCP | | + +------+ [...] | (Primary Dx) | | | | [place], | [address] [place] | | | | | [place] [address] | [place] [address] | | | | | [phone] | [phone] | | | | | | | [...] | | | | | | [place] [address] | | | | | | [phone] | | | | | | | [...]
--- OUTSIDE RECORDS SUMMARY | ~2019-10-18 | XMS | Encounter Summary ---
Demographics + + + | Address | [address] | | | [place] [address] | + + + | Home Phone [...] Team Providers + +------+ + | Care Analyst Food And Beverage Name | Role | Phone | + +------+ + | Jesus Mijares MD | PCP | | + +------+ + Encounter Details +--------+ + + + + | Date | Type | Department | Care Team | Description | +--------+ + + + + | 05/05/ | Orders Only | [facility] | Provider, | Chronic diastolic | | 2019 | | SYSTEM GENERIC OP | MD [address] | heart failure (HCC); | | | | CONVERSION [address] | [address] | Essential (primary) | | | | [address] [place], [place] | [place] [address] | hypertension; | | | | [address] | | Localized edema; | | | | [phone] | | Mixed | | | | [...] | | | | | | [place] [address] | | | | | | [phone] | | | | | | | [...]
--- OUTSIDE RECORDS SUMMARY | ~2019-10-18 | XMS | Encounter Summary ---
Demographics + + + | Address | [address] | | | [place] [address] | + + + | Home Phone [...] Team Providers + +------+ + | Care Cardiac Nurse Specialist Name | Role | Phone | [...] Thoracic or | [place], | [address] | | | | | lumbosacral | Nilson Jensen MD | [place], | | | | | neuritis or | [address] | [place] | | | | | | ST [place] | [address] | | | | | radiculitis, | [place], [place] | Phone: | | | | | unspecified | [address] | [phone] | | | | | Procedures | Phone: | Fax: | | | | | [place] INJECT | [phone] | [phone] | | | | | ANES/STEROID | Fax: | | | | | | FORAMEN | [phone] | | | | | | LUMBAR/SACRA | | | | | | | L W IMG | | | | | | | GUIDE ,1 | | | | | | | LEVEL DE | | | | | | | [...] + + | 08/19/ | Hospital | [facility] | [place], | Lumbar | | 2013 | Encounter | MED CTR XRAY [address] | [address]o [address] | radiculopathy; | | | | [place] | [facility], | Spinal stenosis of | | | | [place] [address] | [place] [address] | lumbar region - | | | | [phone] | [phone] | 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 | [address] | [place], [place] | [phone] | | [facility] | | [address] | | | - IMAGING | | [...] 3:00 | | | | | ONCE, [facility] 08/19/14 at 1500, For 1 | | PM PST | | | | | dose | | | | | | + +-------+ +-------+---+---+ +---+---+ | | | +---+---+ documented in this encounter"
--- OUTSIDE RECORDS SUMMARY | ~2019-10-18 | XMS | Encounter Summary ---
Demographics + + + | Address | [address] | | | [place] [address] | + + + | Home Phone [...] Providers + +------+ + | Care Leather Splitter Name | Role | Phone | + [...] + + | 12/10/ | Telephone | [facility] [place] | [place], | Results, Imaging | | 2017 | | PHYSIATRY [address] | [address] | | | | | [place], | [facility], | | | | | [place] [address] | [place] [address] | | | | | [phone] | [phone] | | | | | | | [...] 11/17/ | Office | Cardiology | Rajendra oFwler, | | | 2020 | Visit | | MD [address] | | | | | | [place], | | | | | | [place] [address] | | | | | | [phone] | | | | | | | [...]
--- OUTSIDE RECORDS SUMMARY | ~2019-10-18 | XMS | Encounter Summary ---
Demographics + + + | Address | [address] | | | [place] [address] | + + + | Home Phone [...] Team Providers + +------+ + | Care Toppiece Chopper Name | Role | Phone | + [...] + + | 07/14/ | Office | [facility] | Rajendra Fowler, | Sick sinus syndrome | | 2019 | Visit | CARDIOLOGY [place] | MD [address] | ([facility]) (Primary Dx); | | | | [address] | [place], | Cardiac pacemaker in | | | | [address] | [place] [address] | situ; Chronic | | | | [place], [place] | [phone] | diastolic heart | | | | [address] | | failure ([facility]); | | | | [phone] | | Paroxysmal atrial | | | | | | fibrillation ([facility]); | | | | | | Paroxysmal atrial | | | | | | flutter ([facility]); PSVT | | | | | | (paroxysmal | | | | | | supraventricular | | | | | | tachycardia) ([facility]); | | | | | [...] the newer oral anticoagulants, followed at the [facility] to monitor her INR for paroxysmal atrial fibrillation and atrial flutter, which she noted today, but it seems to have settled down and she appears to be in sinus rhythm or paced on examination at this time. She was seen in the [facility] ER 06/23/19 after an accidental [...] CARDIOVASCULAR: --- Spuriously history of an old AR diagnosed by EKG in 2002, with a [...] Implantation (03/20/17): [employer] Etrinsa 8 , model 989159,s#[id number]; RV Lead - Setrox S-53 cm, model 708835, s#[id number] (in the RV septum, long term between the ape x and RVOT); RA [...] syndrome, bilateral 01/26/2013 CHF (congestive heart failure) ([facility]) 07/31/2018 Chronic back pain 06/24/2014 Chronic kidney disease 11/2015 Stage 3 Depression 03/20/2017 Diabetes mellitus ([facility]) Facet arthritis of lumbar region 03/06/2013 GERD (gastroesophageal reflux disease) Hyperlipidemia 03/28/2015 Hypertension Irregular heartbeat Lumbar scoliosis 08/09/2014 Migraine headache Myocardial infarction ([facility]) Neuropathy Nontraumatic tear of right supraspinatus tendon 01/03/2018 Sacroiliitis, not elsewhere classified ([facility]) 09/11/2016 Trochanteric bursitis of right [...] BY MOUTH ONCE DAILY OR DIRECTED BY [facility] warfarin (COUMADIN) 6 MG tablet Take 6 [...] | | | | | | [place] [address] | | | | | | [phone] | | | | | | | [...] | + + | Paroxysmal atrial fibrillation ([facility]) Atrial fibrillation | + + | Paroxysmal atrial flutter ([facility]) Atrial flutter | + + | PSVT (paroxysmal supraventricular tachycardia) ([facility]) Paroxysmal supraventricular | | tachycardia [...]
--- OUTSIDE RECORDS SUMMARY | ~2019-10-18 | XMS | Encounter Summary ---
Demographics + + + | Address | [address] | | | [place] [address] | + + + | Home Phone [...] Team Providers + +------+ + | Care Quill Buncher And Sorter Name | Role | Phone | + +------+ + | Jesus Mijares MD | PCP | | + +------+ + Encounter Details +--------+ + + + + | Date | Type | Department | Care Team | Description | +--------+ + + + + | 09/11/ | Hospital | [facility] | [place], | Sacroiliitis ([facility]) | | 2016 | Encounter | MED CTR XRAY [address] | [address] | (Primary Dx); | | | | [place] | [facility], | Sacroiliitis, not | | | | [place] [address] | [place] [address] | elsewhere classified | | | | [phone] | [phone] | ([facility]); Lumbar | | | | | | radiculopathy; | | | | | Food General Manager, [facility] | DEGENERATIVE DISC | | | [...] | | | | | | [place] [address] | | | | | | [phone] | | | | | | | [...] Lumbar radiculopathy ICD-10 Code M54.16 Rebecca | [facility] | | Chanell Castillo presents to the fluoroscopy suite for | [facility] | | fluoroscopically-guided bilateral L4-L5 transforaminal epidural [...] + + | Performing | Address | City/State[facility] | Phone Number | | Organization | | | | + + + + + | [address] | [address] | [place], [place] | [phone] | | [facility] | | [address] | | | - IMAGING | | [...] Rebecca Chanell Castillo presents to the | [facility] | | fluoroscopy suite for a fluoroscopically guided right sacroiliac [facility] | | joint steroid injection as [...] [address] | [place] | [phone] | | [facility] | | [address] | | | - IMAGING | | [...]
--- OUTSIDE RECORDS SUMMARY | ~2019-10-18 | XMS | Encounter Summary ---
Demographics + + + | Address | [address] | | | [place] [address] | + + + | Home Phone [...] Team Providers + +------+ + | Care Hub Cutter Name | Role | Phone | + [...] | Lumbar | [place], | [address] | | | | | radiculopath | Nilson Jensen MD | [place], | | | | | y | [address] | [place] | | | | | Procedures | ST [place] | [address] | | | | | [place] INJECT | [place], [place] | Phone: | | | | | ANES/STEROID | [address] | [phone] | | | | | FORAMEN | Phone: | Fax: | | | | | LUMBAR/SACRA | [phone] | [phone] | | | | | L W IMG | Fax: | | | | | | GUIDE ,1 | [phone] | | | | | | LEVEL [place] | | | | | | | [...] + + | 07/31/ | Hospital | [facility] | [place], | Lumbar radiculopathy | | 2018 | Encounter | MED [facility] XRAY [address] | GAMALIEL Saucedo [address] | | | | | Supply [place] | [facility], | | | | | [place] [address] | [place] [address] | | | | | [phone] | [phone] | | | | | | | | | | | | [employer] | | +--------+ + + + [...] [place] | | | | | | [place], | | | | | | [place] [address] | | | | | | [phone] | | | | | | | [...]
--- OUTSIDE RECORDS SUMMARY | ~2019-10-18 | XMS | Encounter Summary ---
Demographics + + + | Address | [address] | | | [place] [address] | + + + | Home Phone [...] Providers + +------+ + | Care Community Support Specialist Name | Role | Phone [...] | syndrome of | [address] | [facility] | | | | | both | [address] | [place], | | | | | shoulders | [place], | [place] | | | | | Chronic left | [place] [address] | [address] | | | | | shoulder | Phone: | Phone: | | | | | pain | [phone] | [phone] | | | | | | Fax: | Fax: | | | | | | [phone] | [phone] | + + + + + + + Reason for Visit + + + | Reason | Comments | + + + | Follow-up | Same Day Injection: BILATERAL L4/L5 TFESI | + + + Encounter Details +--------+---------+ + + + | Date | Type | Department | Care Team | Description | +--------+---------+ + + + | 03/03/ | Office | [facility] | Capo Bermudez, | Lumbar radiculopathy | | 2019 | Visit | PHYSIATRY [address] | PA-C [address] | (Primary Dx); | | | | [place], | [address] [place] | Rotator cuff | | | | [place] [address] | [place]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 Date Last Reviewed: 12/12/201719994077-5437 The [employer]. [address] [place] [address]. All righ ts reserved. This information is [...] in [address] Yong Pena in [place], use of hydrocodone 3 x/day and flexeril, [...] no apparent deficits with short or termite helper memory. She has appropriate fund of knowledge [...] sessions over the years) and direct care specialist. Unfortunately she continue s to have significant [...] | | | | | | [place] [address] | | | | | | [phone] | | | | | | | [...] + + +--------+ + + | [place] SRINIVAS Lumbar | Imaging | Routin | Lumbar [...]
--- OUTSIDE RECORDS SUMMARY | ~2019-10-18 | XMS | Encounter Summary ---
Demographics + + + | Address | [address] | | | [place] [address] | + + + | Home Phone [...] Team Providers + +------+ + | Care Jewelry Dipper Name | Role | Phone | + [...] + + | 09/01/ | Office | [facility] | Mary Moe ANP | Paroxysmal atrial | | 2019 | Visit | CARDIOLOGY [place] | [address] | flutter ([facility]) | | | | [address] | [place], [place] | (Primary Dx); PSVT | | | | [place], [place] | [address] | (paroxysmal | | | | [address] | | supraventricular | | | | [phone] | | tachycardia) ([facility]); | | | | | | Cardiac pacemaker in | | | | | | situ; Congestive | | | | | | heart failure, | | | | | | unspecified HF | | | | | | chronicity, | | | | | | unspecified heart | | | | | | failure type ([facility]); | | | | [...] with prolonged AV con duction HR 60, LA 288, QRSD 96, QTC 432 EP PROBLEMS [...] in situ Overview Setrox S-53 cm, model 203170, #[id number] lead was placed into the right ventricle [...] ohms. The leads were attached to a [employer] Etrinsa 8 , model 136815, serial #[id number] pacemaker. FINAL SETTINGS FOR THE DEVICE Mode [...] Last Updated: 09/01/2019 Setrox S-53 cm, model 389475, #[id number] lead was placed into the right ventricle [...] ohms. The leads were attached to a [employer] Etrinsa 8 , model 586558, serial #[id number] pacemaker. FINAL SETTINGS FOR THE DEVICE Mode [...] elsewhere classified (HCC) 09/11/2016 Sick sinus syndrome ([facility]) 06/05/2016 Note Last Updated: 09/01/2019 -- 2 [...] rate histograms are documented giv en the [facility] rate response algorithm on her Biotronik pacemaker. Trochanteric bursitis of right hip 03/06/2016 Chronic kidney disease, stage III (moderate) ([facility]) 12/06/2015 Paroxysmal atrial flutter ([facility]) 12/06/2015 Hypertension 12/06/2015 Note Last Updated: 09/01/2019 [...] her. INR is managed by [facility] at [facility] and most recently was 2.1 on [...] ONCE DAILY OR DIRECTED BY Bigg [facility], Disp: , Rfl: warfarin (COUMADIN) 6 MG [...] 12.8 oz) | SpO2 98% | B MS 26.23 kg/m Physical Exam Constitutional: She is [...] notes on file Brittani [facility] Medic al Hosiery Bagger - 09/01/2019 1:45 PM Debbie CHRISTIANSEN Note- [...] | | | | | | [place] [address] | | | | | | [phone] | | | | | | | [...] | | | | tachycardia) ([facility]) | | + +--------+ + [...] | | | | | by [facility] [place] Read Only, | | | | | | [facility] Junie ([id number]), | | | | | | art editor Kervin Coker | | | | | | ([id number]) on 09/01/2019 | | | | | [...] CENTER) Atrial fibrillation | + + | Hypertension, [...]
--- OUTSIDE RECORDS SUMMARY | ~2019-10-18 | XMS | Encounter Summary ---
Demographics + + + | Address | [address] | | | [place] [address] | + + + | Home Phone [...] | | both | [address] | [place], | | | | | shoulders | [place], | [place] | | | | | Chronic left | [place] [address] | [address] | | | | | shoulder | Phone: | Phone: | | | | | pain | [phone] | [phone] | | | | | | Fax: | Fax: | | | | | | [phone] | [phone] | + + + + + + + Encounter Details +--------+---------+ + + + | Date | Type | Department | Care Team | Description | +--------+---------+ + + + | 03/30/ | Office | [facility] | Capo Bermudez, | Impingement syndrome | | 2019 | Visit | ORTHOPEDIC SURGERY | PA-Bigg [address] | of left shoulder | | | | [address] [facility] | [address] | (Primary Dx) | | | | [place], [place] | [place] [address] | | | | | [address] | [phone] | | | | | [phone] | | | | | | | Rancho Aldrich | | | | | | MD [address] | | | | | | [facility] | | | | | | [place] [address] | | | | | | [phone] | | | | | | | [...] Medicine To relieve pain and inflammation, try [id number] pain relievers, such as acetaminophe n or [...] benefits of this therapy. Date Last Reviewed: 02/11/201819993931-1610 [employer]. [address] [place] [address], [place] [address]. All righ ts reserved. This information is not intended as a substitute for professional medical care. Always follow your healthcare professional's instructions. documented in this encounter Progress Notes Rancho Aldrich MD - 03/30/2019 10:00 AM PDTFormatting of this note might be dif ferent from the original. [facility] HISTORY AND PHYSICAL EXAMINATION Pt. 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 CHF (congestive heart failure) ([facility]) 07/31/2018 Chronic back pain 06/24/2014 Chronic kidney disease 11/2015 Stage 3 Depression 03/20/2017 Diabetes mellitus ([facility]) Facet arthritis of lumbar region 03/06/2013 GERD (gastroesophageal reflux disease) Hyperlipidemia 03/28/2015 Hypertension Irregular heartbeat Lumbar scoliosis 08/09/2014 Migraine headache Myocardial infarction ([facility]) Neuropathy Nontraumatic tear of right supraspinatus tendon 01/03/2018 Sacroiliitis, not elsewhere classified ([facility]) 09/11/2016 Trochanteric bursitis of right [...] made to ensure accuracy; however, inadvertent computerized diamond wheel molder errors may be pre sent. I appreciate [...] | | | | | | [place] [address] | | | | | | [phone] | | | | | | | [...]
--- OUTSIDE RECORDS SUMMARY | ~2019-10-18 | XMS | Encounter Summary ---
Demographics + + + | Address | [address] | | | [place] [address] | + + + | Home Phone [...] Team Providers + +------+ + | Care Excelsior Cutter Name | Role | Phone | [...] | | | Sabrinacz, | [address] | | | | | Degenerative | Sheryl, | [place], | | | | | disc | PA-C [address] | [place] | | | | | disease, | [address] | [address] | | | | | lumbar | [place], [place] | Phone: | | | | | Chronic back | [address] | [phone] | | | | | pain | Phone: | Fax: | | | | | Idiopathic | [phone] | [phone] | | | | | scoliosis | Fax: | | | | | | Procedures | [phone] | | | | | | MRI [...] | | | Anaidmeghancz, | [address] | | | | | Degenerative | Sheryl, | [place], | | | | | disc | PA-C [address] | [place] | | | | | disease, | [address] | [address] | | | | | lumbar | [place], [place] | Phone: | | | | | Chronic back | [address] | [phone] | | | | | pain | Phone: | Fax: | | | | | Idiopathic | [phone] | [phone] | | | | | scoliosis | Fax: | | | | | | Procedures | [phone] | | | | | | MRI [...] + + | 07/15/ | Hospital | [facility] | Christiano, | DEGENERATIVE DISC | | 2013 | Encounter | MED CTR MRI [address] | GAMALIEL Saucedo [address] | DISEASE, LUMBAR | | | | [address] [place], | [place]RI[place], | SPINE; Chronic back | | | | [place] [address] | [place] [address] | pain; SCOLIOSIS , | | | | [phone] | [phone] | IDIOPATHIC | | | | | [...] | | | | | | [place] [address] | | | | | | [phone] | | | | | | | [...] + | MISCELLANEOUS LAB | | | [phone] | + +---------+ + + | MISCELANIOUS LAB | | | [phone] | + +---------+ + + documented in [...] | | | | PRN, Other, Starting [facility] 07/15/14 | | AM PDT | | | | | at 1133, For 1 dose, MRI | | | | | | + +--------+ +--------+------+------+ +---+---+ | | | +---+---+ documented in this encounter"
--- OUTSIDE RECORDS SUMMARY | ~2019-10-18 | XMS | Encounter Summary ---
Demographics + + + | Address | [address] | | | [place] [address] | + + + | Home Phone [...] Providers + +------+ + | Care Compliance Testing Analyst Name | Role | Phone | [...] + + | 09/11/ | Office | [facility] | Christiano, | Lumbar radiculopathy | | 2016 | Visit | PHYSIATRY [address] | GAMALIEL Saucedo [address] | (Primary Dx); | | | | [place], | [address] [place], | Trochanteric | | | | [place] [address] | [place] [address] | bursitis of right | | | | [phone] | [phone] | hip; DEGENERATIVE | | | | [...] in [address] Yong Pena in [place], use of hydrocodone 3 x/day and flexeril, [...] has no apparent deficits with short or superintendent terminal memory. She has appropriate fund of knowledge [...] PT (multiple sessions over the years) and home care manager rn. Unfortunately she cont inues to have significant [...] [place], | | | | | | [place]G [address] | | | | | | [phone] | | | | | | | [...] Castillo presents to the fluoroscopy suite for [facility] | | fluoroscopically-guided bilateral [...] ST. | [address] | [place], [place] | [phone] | | [facility] | | [address] | | | - IMAGING | | [...] M46.1 Rebecca Castillo presents to the | [facility] | | fluoroscopy suite for a fluoroscopically guided right sacroiliac [facility] | | joint steroid injection as [...] [address] | [place] | [phone] | | [facility] | | [address] | | | - IMAGING | | [...]
--- OUTSIDE RECORDS SUMMARY | ~2019-10-18 | XMS | Encounter Summary ---
Demographics + + + | Address | [address] | | | [place] [address] | + + + | Home Phone | | + + + | Preferred Language | Unknown | + + + | Marital Status | | + + + | Jewish Affiliation | 1027 | + + + | Race | Unknown | + + + | Ethnic Group | Unknown | + + + Author + + + | Author | [facility] | | | and [place] | + + + | Organization | [facility] | | | [...] Team Providers + +------+ + | Care Blindstitch Lapel Padder Name | Role | Phone | + [...] Oziel DILLARD | | | | | [phone] | [place] [address] | | +--------+ + + + + [...] | | | | | | [place] [address] | | | | | | [phone] | | | | | | | [...]
--- OUTSIDE RECORDS SUMMARY | ~2019-10-18 | XMS | Clinical Summary ---
Demographics + + + | Address | [address] | | | [place] [address] | + + + | Home Phone [...] Team Providers + +------+ + | Care Customer Service Specialist Name | Role | Phone | [...] ---------+ | Overview: Sylvia S-53 cm, model 116620, #[id number] lead was | | placed into the right ventricle and screwed intoposition on the | | septum, midway between the apex and outflow tract. Thefinal | | pacing threshold was 1 V at 0.5 msec, with R waves of 5.9 mV and | | theimpedance was 550 ohms. There was no diaphragmatic pacing at | | 10 V. Pricefalls model 5076-45 cm lead was placed into [...] ohms. The leads were attached to a [employer] Etrinsa 8 | | , model 564786,serial #[id number] pacemaker. FINAL | | SETTINGS FOR THE [...] 2019 | Visit | | | flutter ([facility]) | | | | | | (Primary Dx); PSVT | | | | | | (paroxysmal | | | | | | supraventricular | | | | | | tachycardia) ([facility]); | | | | | | Paroxysmal atrial | | | | | | fibrillation ([facility]); | | | | | | Hypertension, | | | | | | unspecified type; | | | | | | Congestive heart | | | | | | failure, unspecified | | | | | | HF chronicity, | | | | | | unspecified heart | | | | | | failure type ([facility]); | | | | | | Cardiac pacemaker in | | | | | | situ | +--------+ + + + + | 09/22/ | Procedure | Cardiology | | Sick sinus syndrome | | 2019 | visit | | | ([facility]) (Primary Dx); | | | | | | Chronic diastolic | | | | | | heart failure ([facility]); | | | | | | Cardiac pacemaker | | | | | | in situ; Paroxysmal | | | | | | atrial fibrillation | | | | | | ([facility]) | +--------+ + + + + [...] of | | | | | | [facility] | | | | | | anticoagulation; [...] | | | | | | fibrillation ([facility]); | | | | | | [...] 2018 | Visit | | | flutter ([facility]) | | | | | | (Primary Dx); PSVT | | | | | | (paroxysmal | | | | | | supraventricular | | | | | | tachycardia) ([facility]); | | | | | | Cardiac pacemaker in | | | | | | situ; Congestive | | | | | | heart failure, | | | | | | unspecified HF | | | | | | chronicity, | | | | | | unspecified heart | | | | | | failure type ([facility]); | | | | | | Paroxysmal atrial | | | | | | fibrillation ([facility]); | | | | | | Hypertension, | | | | | | unspecified type; | | | | | | Sick sinus syndrome | | | | | | ([facility]) | +--------+ + + + + | 08/31/ | Telephone | Cardiology | Macey Goel | CHF Management | | 2018 | | | LINE SERVER | | +--------+ + + + + | 08/27/ | Procedure | Cardiology | Goeljanuary, | Cardiac pacemaker in | | 2019 | visit | | LINE SERVER | situ (Primary Dx) | +--------+ + [...] | [place]ana | | | | | [place] | | + + + + + | High cholesterol | Brotheddie | Kana | from stroke age 75 | | | | [place] | | + + + + + | Arthritis | Mother | Ada | Hands | | | | [place] | | + + + + + + + +--------+ + | Relation | Name | Status | Comments | + + +--------+ + | Brother | Kana | | | | | [place] | | | + + +--------+ + | Mother | Ada | | | | | [place] | | | + + +--------+ + [...] | | | | | | [place] [address] | | | | | | [phone] | | | | | | | [...] Generi | | MCGRATH | | | [id number] | | 10ml - [id number]: | c | | BIOSCIENCE | | | 2 / | | Qty: 1 on 08/07/2013 | | | - BAXB | | | /[id number] | | | | | | | | 630 | + +--------+------+ +--------+--------+--------+ | Screw Edda Polyaxial 6.5x40mm | Implan | | JENNIFER | | | [id number] | | - [id number]: Qty: 3 | t | | MEDICAL - | | | 40 / / | | on 08/07/2013 | Ortho | | STRY | | | | + +--------+------+ +--------+--------+--------+ | Screw Edda Polyaxial 7.5x40mm | Implan | | JENNIFER | | | [id number] | | - [id number]: Qty: 1 | t | | MEDICAL - | | | 40 / / | | on 08/07/2013 | Ortho | | STRY | | | | + +--------+------+ +--------+--------+--------+ | Alia Nut Edda 04.5mm - | Implan | | JENNIFER | | | [id number] | | [id number]: Qty: 4 on | t | | MEDICAL - | | | 00 / / | | 08/07/2013 | Ortho | | STRY | | | | + +--------+------+ +--------+--------+--------+ | Yvonne Pritchett 0d 11mm | Implan | | JENNIFER | | | [id number] | | 10x33 - [id number]: | t | | MEDICAL - | | | 00 / / | | Qty: 1 on 08/07/2013 | Ortho | | STRY | | | | + +--------+------+ +--------+--------+--------+ | Yong Edda 3 Prebent Ti 4.5x40mm | Implan | | JENNIFER | | | [id number] | | - [id number]: Qty: 1 | t | | MEDICAL - | | | 040 / | | on 08/07/2013 | Ortho | | STRY | | | / | + +--------+------+ +--------+--------+--------+ | Yong Edda 3 Precut Ti 4.5x45mm | Implan | | JENNIFER | | | [id number] | | - [id number]: Qty: 1 | t | | MEDICAL [...] | e | 9:47 AM | flutter ([facility]) PSVT | procedure are in the | | | | PST | (paroxysmal | results section. | | | | | supraventricular | | | | | | tachycardia) ([facility]) | | | | | | Paroxysmal atrial | | | | | | fibrillation ([facility]) | | + +--------+ + + [...] | | e | 2:35 PM | terminal computer operator | procedure are in the | | [...] | | | | | tachycardia) ([facility]) | | + +--------+ + + [...] | | | | | by [facility] [place] Read Only, | | | | | | [facility] Leonard (478), | | | | | | newspaper managing editor Kervin Coker | | | | | | (778) on 09/22/2019 | | | | | [...] encounter for additional details. | | | filer finish: Benjamin Garcia, filer finish [facility] | | |See device data attached to scheduled encounter for additional | | |details. | | | | | |filer finish: Benjamin Garcia, filer finish [facility] | | | | | | [...] | + + + + + | [facility] | [address] | [place] [address] | [phone] | | GELY MACE | | | [...] +--------+ +---------+--------+ | MEDICARE | MEDICA | [id number] | 02/12/20 | [phone] | | Medica | | | RE | | 07-Pre | 5 | | re | | | PART A | | sent | | | | | | AND B | | | | | | + +--------+ +--------+ +---------+--------+ | AARP | AARP | [id number] | 02/12/20 | [phone] | | Indemn | | | MDCR | | 07-Pre | 0 | | ity | | | SUPPL | | sent | | | | + +--------+ +--------+ +---------+--------+ | MEDICARE | MEDICA | [id number] | 02/12/20 | [phone] | | Medica | | | RE | | 07-Pre | 5 | | re | | | PART A | | sent | | | | | | AND B | | | | | | + +--------+ +--------+ +---------+--------+ | AARP | AARP | [id number] | 10/14/19 | [phone] | | Indemn [...] Person | Self [birth year] | [address] | | | al/Fam | | 1940 | [phone] | [place], [place] | | | margarita | | | 5 (Home) | [address] | + +--------+ +--------+ + + | Rebecca Castillo Ada | Person | Self | [birth year] | | [address] | | | al/Fam | | 1940 | [phone] | [place], [place] | | | marg[place]ita | | | 5 (Home) | [address] | + +--------+ +--------+ + + Advance Directives + + + + + | Type | Date Recorded | Patient | Explanation | | | | Manager Of Case Management | | + + + + + | Power of | | | | | Rn Transfer | | | | + + + + + | Advance | 12/01/2018 3:06 | | | | Directive | PM | | | + + + + +
--- OUTSIDE RECORDS SUMMARY | ~2019-10-18 | XMS | Encounter Summary ---
Demographics + + + | Address | [address] | | | [place] [address] | + + + | Home Phone | | + + + | Preferred Language | Unknown | + + + | Marital Status | | + + + | Yarsanism Affiliation | 1027 | + + + [...] Team Providers + +------+ + | Care Sheltered Workshop Executive Director Name | Role | Phone | + +------+ + | Jesus Mijares MD | PCP | | + +------+ + Encounter Details +--------+ + + + + | Date | Type | Department | Care Team | Description | +--------+ + + + + | 12/03/ | Hospital | [facility] | Nilson Chaudhry | Acute pain of right | | 2018 | Encounter | MED CTR XRAY [address] | [address] | shoulder | | | | [place] | [address] [place], [place] | | | | | [place] [address] | [address] | | | | | [phone] | | | | | | | [...] | | | | | | [place] [address] | | | | | | | [...]
--- OUTSIDE RECORDS SUMMARY | ~2019-10-18 | XMS | Encounter Summary ---
Demographics + + + | Address | [address] | | | [place] [address] | + + + | Home Phone [...] Team Providers + +------+ + | Care Building Stonecutter Name | Role | Phone | + +------+ + | Jesus Mijares MD | PCP | | + +------+ + Encounter Details +--------+ + + + + | Date | Type | Department | Care Team | Description | +--------+ + + + + | 12/03/ | Hospital | [facility] | Nilson Chaudhry | Acute pain of right | | 2018 | Encounter | MED CTR XRAY [address] | [address] | shoulder | | | | [place] | [address] [place], [place] | | | | | [place] [address] | [address] | | | | | [phone] | | | | | | | [...] | | | | | | [place] [address] | | | | | | | [...]
--- OUTSIDE RECORDS SUMMARY | ~2019-10-18 | XMS | Encounter Summary ---
Demographics + + + | Address | [address] | | | [place] [address] | + + + | Home Phone [...] Team Providers + +------+ + | Care Motorcycle Builder Name | Role | Phone | + [...] Unknown | neurogenic | | | | [address] | [phone] | claudication | | | | [phone] | | | +--------+ + + + [...] | | | | | | [place] [address] | | | | | | [phone] | | | | | | | [...] 01/05/2014 11:55 AM Job: | | | [id number] | | + + + + + [...] Dictated: 01/05/2014 11:55 AM | | Job: [id number] | + + documented in this encounter Visit Diagnoses + + | Diagnosis | + + | Spinal stenosis, lumbar region, with neurogenic claudication | + + documented in this encounter"
--- OUTSIDE RECORDS SUMMARY | ~2019-10-18 | XMS | Encounter Summary ---
Demographics + + + | Address | [address] | | | [place] [address] | + + + | Home Phone [...] Team Providers + +------+ + | Care Validation Scientist Name | Role | Phone | + [...] Leonard Nice | | | | | [facility] | [place], [place] | | | | | [address] | [address] | | | | | [phone] | | | +--------+ + + + [...] | | | | | | [place] [address] | | | | | | [phone] | | | | | | | [...] | EXTERNAL | | | A1c | [facility] | | LAB | | | [...]
--- OUTSIDE RECORDS SUMMARY | ~2019-10-18 | XMS | Encounter Summary ---
Demographics + + + | Address | [address] | | | [place] [address] | + + + | Home Phone | | + + + | Preferred Language | Unknown | + + + | Marital Status | | + + + | Synagogue Affiliation | Unknown | + + + | Race | White | + + + | Ethnic Group | Not or | + + + Author + + + | Author | [facility] | + + + | Organization | [facility] | + + + | Address | Unknown | + + + | Phone | Unavailable | + + + Support + + + + + | Name | Relationship | Address | Phone | + + + + + | Geoffrey Castillo | RENAE | [place] | | + + + + + Care Team Providers + +------+ + | Care Elementary School Tutor Name | Role | Phone [...] as of this encounter Progress Notes Interface, Licensed Veterinary Technician In - 07/17/2006 3:06 AM PDTCLINIC DATE: [...] surgery. Jayson Mccoy M.D. SHAJI / CHARY [id number] / [id number] / [id number] / [id number] signed by Interface, Licensed Veterinary Technician In at 07/17/2006 3:06 AM PDTdocume nted in this encounter Plan of Treatment Not on filedocumented as of this encounter Visit Diagnoses Not on filedocumented in this encounter"
--- OUTSIDE RECORDS SUMMARY | ~2019-10-18 | XMS | Encounter Summary ---
Demographics + + + | Address | [address] | | | [place] [address] | + + + | Home Phone | | + + + | Preferred Language | Unknown | + + + | Marital Status | | + + + | Caodaism Affiliation | 1027 | + + + | Race | Unknown | + + + | Ethnic Group | Unknown | + + + Author + + + | Author | [facility] | | | and [place] | + + + | Organization | [facility] | | | and [place] | + + + | Address | Unknown | + + + | Phone | Unavailable | + + + Support + + +---------+ + | Name | Relationship | Address | Phone | + + +---------+ + | Cruz Mariano | ECON | Unknown | | + + +---------+ + | Carmine Marinao | ECON | Unknown | | + + +---------+ + Care Team Providers + +------+ + | Care Nursing Services Manager Name | Role | Phone | [...] + + | 07/31/ | Office | [facility] | Nilson Chaudhry | Lumbar | | 2011 | Visit | [address]SIATRY [address] | T, [address] | radiculopathy; | | | | [place], | [place], [place] | DEGENERATIVE DISC | | | | [place] [address] | [address] | DISEASE, LUMBAR | | | | [phone] | | SPINE; SCOLIOSIS , | | [...] our off ice. Please also provide a funeral limousine driver to take you home on the [...] | | | | | | [place] [address] | | | | | | [phone] | | | | | | | [...]
--- OUTSIDE RECORDS SUMMARY | ~2019-10-18 | XMS | Encounter Summary ---
Demographics + + + | Address | [address] | | | [place] [address] | + + + | Home Phone [...] Team Providers + +------+ + | Care Electrostatic Powder Coating Technician Name | Role | Phone | [...] Thoracic or | [place], | [address] | | | | | lumbosacral | Nilson Jensen MD | [place], | | | | | neuritis or | [address] | [place] | | | | | | [place] | [address] | | | | | radiculitis, | [place], [place] | Phone: | | | | | unspecified | [address] | [phone] | | | | | Procedures | Phone: | Fax: | | | | | [place] INJECT | [phone] | [phone] | | | | | ANES/STEROID | Fax: | | | | | | [place] | [phone] | | | | | | LUMBAR/SACRA [...] + + | 12/09/ | Hospital | [facility] | Nilson Chaudhry | Bilateral lumbar | | 2014 | Encounter | MED CTR XRAY [address] | TMD [address] | radiculopathy | | | | [place] | [facility] [place], [place] | (Primary Dx); | | | | [place] [address] | [address] | Thoracic or | | | | [phone] | | lumbosacral neuritis | | | | | [employer], [facility] | or radiculitis, | | | [...] | | | | | | [place] [address] | | | | | | [phone] | | | | | | | [...] radiculopathy ICD-9 Code 724.4 Rebecca Lua | [facility] | | Jonathan presents to the fluoroscopy suite for fluoroscopically-guided | [facility] | | bilateral L4-L5 transforaminal epidural steroid [...] | + + + + + | [facility] | [address] | [place], [place] | [phone] | | [facility] | | [address] | | | - IMAGING | | [...]
--- OUTSIDE RECORDS SUMMARY | ~2019-10-18 | XMS | Encounter Summary ---
Demographics + + + | Address | [address] | | | [place] [address] | + + + | Home Phone [...] Team Providers + +------+ + | Care Planner Internship Name | Role | Phone | [...] + + | 02/24/ | Office | [facility] | Christiano, | Lumbar radiculopathy | | 2015 | Visit | [address]YSIATRY [address] | [address] | (Primary Dx); | | | | [place], | [facility], | Spinal stenosis of | | | | [place] [address] | [place] [address] | lumbar region - | | | | [phone] | [phone] | L3/L4, adjacent | | | | [...] of the procedure you must provide a warehouse delivery driver to take you home. For all [...] PT (multiple sessions over the years) and ocular care aide. Unfortunately she cont inues to have significant [...] Sheryl Alvarado PA-C, 02/24/2015 SUPERVISING PHYSICIAN: Nilson hCaudhry MD, who was present in the clinic [...] | | | | | | [place] [address] | | | | | | [phone] | | | | | | | [...] radiculopathy ICD-9 Code 724.4 Rebecca Lua | [facility] | | Jonathan presents to the fluoroscopy suite for fluoroscopically-guided [facility] | | bilateral L4-L5 transforaminal epidural [...] | + + + + + | [facility] | [address] | [place], [place] | [phone] | | [facility] | | [address] | | | - IMAGING | | [...]
--- OUTSIDE RECORDS SUMMARY | ~2019-10-18 | XMS | Clinical Summary ---
Demographics + + + | Address | [address] | | | [place] [address] | + + + | Home Phone | | + + + | Preferred Language | Unknown | + + + | Marital Status | | + + + | Sabianist Affiliation | Unknown | + + + | Race | White | + + + | Ethnic Group | Not or | + + + Author + + + | Author | [facility] | + + + | Organization | [facility] | + + + [...] Team Providers + +------+ + | Care Lumber Press Operator Name | Role | Phone | + +------+ + PCP | Unavailable | + +------+ + Source Comments [facility] is fully live on both [facility] and [facility] Allergies Not on File Medications [...] | + + Last Filed Vital Signs Not on file Plan of Treatment + + + + + | Health Maintenance | Due Date | Last Done | Comments | + + + + + | Pneumococcal | /15/200 | | | | vaccination (1 of 2 | 7 | | | | - PCV13) | | | | + + + + + | Influenza (Flu) | | | | | vaccination (#1) | 9 | | | + + + + + Results Not on filefrom Last 3 Months"
--- OUTSIDE RECORDS SUMMARY | ~2019-10-18 | XMS | Encounter Summary ---
Demographics + + + | Address | [address] | | | [place] [address] | + + + | Home Phone [...] Team Providers + +------+ + | Care Plan Examiner Name | Role | Phone | [...] + + | 08/31/ | Telephone | [facility] | GoelJanuary, | CHF Management | | 2019 | | [facility] [place] | [place] [address] | | | | | [address] | [address] [place], | | | | | [place], [place] | [place] [address] | | | | | [address] | [phone] | | | | | [phone] | | | +--------+ + + + [...] | | | | | | [place] [address] | | | | | | [phone] | | | | | | | [...]
--- OUTSIDE RECORDS SUMMARY | ~2019-10-18 | XMS | Encounter Summary ---
Demographics + + + | Address | [address] | | | [place] [address] | + + + | Home Phone [...] Team Providers + +------+ + | Care Film Technician Name | Role | Phone | [...] | | | [place], | [address] | | | | | Trochanteric | Nilson Jensen MD | [place], | | | | | bursitis of | [address] | [place] | | | | | right hip | [place] | [address] | | | | | Procedures | [place], [place] | Phone: | | | | | [place] | [address] | [phone] | | | | | Joint | Phone: | Fax: | | | | | Injection | [phone] | [phone] | | | | | Right | Fax: | | | | | | | [phone] | | +--------+--------+ + + + + [...] bursitis of right | | | | [place], | [place] | hip (Primary Dx) | | | | [place] [address] | [address] | | | | | [phone] | | | +--------+ + + + [...] | | | | | | [place] [address] | | | | | | [phone] | | | | | | | [...] [address] | [place] | [phone] | | [facility] | | [address] | | | - IMAGING | | [...]
--- OUTSIDE RECORDS SUMMARY | ~2019-10-18 | XMS | Encounter Summary ---
Demographics + + + | Address | [address] | | | [place] [address] | + + + | Home Phone [...] Team Providers + +------+ + | Care Patent Searcher Name | Role | Phone | + [...] + + | 08/11/ | Office | [facility] | [place], | Spinal stenosis of | | 2014 | Visit | PHYSIATRY [address] | [address] | lumbar region - | | | | [place], | [facility], | L3/L4, adjacent | | | | [place] [address] | [place] [address] | segment disease | | | | [phone] | [phone] | (Primary Dx); | | | | [...] of blood sugars if you are diabetic. intermediate risk can lead to osteoporosis which is [...] of the procedure you must provide a special needs bus driver to take you home. 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 Unfortunately she cont inues to have significant [...] | | | | | | [place] [address] | | | | | | [phone] | | | | | | | [...] presents to the fluoroscopy suite for | [facility] | | fluoroscopically-guided bilateral L4-L5 [...] [address] | [place] | [phone] | | [facility] | | [address] | | | - IMAGING | | [...]
--- OUTSIDE RECORDS SUMMARY | ~2019-10-18 | XMS | Encounter Summary ---
Demographics + + + | Address | [address] | | | [place] [address] | + + + | Home Phone [...] Team Providers + +------+ + | Care Branch Specialist Name | Role | Phone | [...] | Lumbar | [place], | [address] | | | | | radiculopath | Nilson Jensen MD | [place], | | | | | y | [address] | [place] | | | | | Procedures | [place] | [address] | | | | | [place] INJECT | [place], [place] | Phone: | | | | | ANES/STEROID | [address] | [phone] | | | | | [place]AM[place] | Phone: | Fax: | | | | | LUMBAR/SACRA | [phone] | [phone] | | | | | L W IMG | Fax: | | | | | | GUIDE ,1 | [phone] | | | | | | LEVEL [place] | | | | | | | [...] + + | 08/31/ | Hospital | [facility] | Christiano, | Lumbar radiculopathy | | 2015 | Encounter | MED CTR XRAY [address] | [address] | (Primary Dx); | | | | [place] | [facility], | Spinal stenosis of | | | | [place] [address] | [place] [address] | lumbar region - | | | | [phone] | [phone] | L3/L4, 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; | | | | | Clinical Exercise Physiologist [facility] | Spondylolisthesis; | | | | | [...] | | | | | | [place] [address] | | | | | | [phone] | | | | | | | [...] Jonathan presents to the fluoroscopy suite for [facility] | | fluoroscopically-guided bilateral L4-L5 transforaminal [...] [address] | [place] | [phone] | | [facility] | | [address] | | | - IMAGING | | [...]
--- OUTSIDE RECORDS SUMMARY | ~2019-10-18 | XMS | Encounter Summary ---
Demographics + + + | Address | [address] | | | [place] [address] | + + + | Home Phone [...] Team Providers + +------+ + | Care Tray Checker Name | Role | Phone | [...] | (Primary Dx) | | | | [place], | [address] [place] | | | | | [place] [address] | [place] [address] | | | | | [phone] | | | | | | | [...] | | | | | | [place] [address] | | | | | | [phone] | | | | | | | [...]
--- OUTSIDE RECORDS SUMMARY | ~2019-10-18 | XMS | Encounter Summary ---
Demographics + + + | Address | [address] | | | [place] [address] | + + + | Home Phone | | + + + | Preferred Language | Unknown | + + + | Marital Status | | + + + | Mormonism Affiliation | 1027 | + + + [...] Team Providers + +------+ + | Care Strategy Intern Name | Role | Phone | + +------+ + | Jesus Mijares MD | PCP | | + +------+ + Reason for Visit + + + | Reason | Comments | + + + | Back Pain | low right sided back pain radiating into right leg | + + + Encounter Details +--------+---------+ + + + | Date | Type | Department | Care Team | Description | +--------+---------+ + + + | 12/06/ | Office | [facility] | Christiano, | Spinal stenosis of | | 2016 | Visit | PHYSIATRY [address] | [address] | lumbar region - | | | | [place], | [facility], | L3/L4, adjacent | | | | [place] [address] | [place] [address] | segment disease | | | | [phone] | [phone] | (Primary Dx); Lumbar | | | | | | radiculopathy; | | | | | | DEGENERATIVE DISC | | | | | | DISEASE, LUMBAR | | | | | | SPINE; Chronic back | | | | | | pain | +--------+---------+ + + + Social [...] + + + | Blood Pressure | 142/92 | 12/06/2015 1:11 PM | | | | | PST | | + + + + + | Pulse | 94 | 12/06/2015 1:11 PM | | | | | PST [...] + + + + | Weight | 98.9 kg (218 lb) | 12/06/2015 1:11 PM | | | | | PST | | + + + + + | Height | 162.6 cm (5' 4") | 12/06/2015 1:11 PM | | | | | PST | | + + + + + | Body Mass Index | 37.42 | 12/06/2015 1:11 PM | | | | | PST | | + + + + + documented in this encounter Patient Instructions Patient Instructions Sheryl Alvarado PA-C - 12/06/2015 1:12 PM PST Follow-up at the hospital thirty minutes before [...] of the procedure you must provide a p d driver to take you home. For all procedur es it is recommended that someone else drive you home. documented in this encounter Progress Notes Sheryl Alvarado PA-C - 12/06/2015 1:12 PM PSTFormatting of this note might be differe nt from the original. CHIEF COMPLAINT: Chief Complaint Patient presents with Back Pain low right sided back pain radiating into right leg HISTORY [...] spinal stenosis. She last received this last 08/31/2015, she reports having saul d 100% relief for the first months, 75% relief for the second month and now her pain has com pletely returned after three months. She is hoping for another steroid injection. She describes the pain as constant dull [...] lumbar fusion. Lumbar fusion of L4/L5 [place] [address] Yong Pena in [place], use of hydrocodone 3 x/day and flexeril, [...] No abnormal bleeding PHYSICAL EXAMINATION: Filed Vitals: 12/06/15 1311 PainSc: 7 PainLoc: Back GENERAL: The patient [...] no apparent deficits with short or termite inspector memory. She has appropriate fund of knowledge [...] region - L3/L4, adjacent segment disease 2. Lumbar radiculopathy 3. DEGENERATIVE DISC DISEASE, LUMBAR SPINE 4. Chronic back pain PLAN: 1. The patient has had significant conservative care including medications (NSAIDS and sam cotics), PT (multiple sessions over the years) and care management associate. Unfortunately she cont inues to have [...] will follow up in three months from today. ELECTRONICALLY SIGNED BY: Sheryl Alvarado PA-C, 12/06/2015 documented in t his encounter Plan of [...] | | | | | | [place] [address] | | | | | | [phone] | | | | | | | [...] 12/06/2015 Bilateral Transforaminal Epidural Steroid Injections | [facility] | | Diagnosis: Lumbar radiculopathy ICD-10 Code M54.16 Rebecca | [facility] | | Chanell Castillo presents to the fluoroscopy suite for [facility] | | fluoroscopically-guided bilateral L4-L5 transforaminal [...] | + + + + + | [facility] | [address] | [place] | [phone] | | [facility] | | [address] | | | - IMAGING | | [...]
--- OUTSIDE RECORDS SUMMARY | ~2019-10-18 | XMS | Encounter Summary ---
Demographics + + + | Address | [address] | | | [place] [address] | + + + | Home Phone [...] Team Providers + +------+ + | Care Exchange Clerk Name | Role | Phone | + +------+ + | Jesus Mijares MD | PCP | | + +------+ + Reason for Visit Service/Procedure (Urgent) +--------+--------+ [...] | Lumbar | [place], | [address] | | | | | radiculopath | Nilson Jensen MD | [place], | | | | | y | [address] | [place] | | | | | Procedures | [place] | [address] | | | | | [place] INJECT | [place], [place] | Phone: | | | | | ANES/STEROID | [address] | [phone] | | | | | [place] | Phone: | Fax: | | | | | LUMBAR/SACRA | [phone] | [phone] | | | | | [address] IMG | Fax: | | | | | | GUIDE ,1 | [phone] | | | | | | LEVEL [place] | | | | | | | TRIAMCINOLON | | | | | | | E ACET INJ | | | | | | | NOS, 10 MG | | | | | | | Same day | | | | | | | 05/01/2018 | | | | | | | Bilateral | | | | | | | L5-L5 TFESI | | | +--------+--------+ + + + + Encounter Details +--------+ + + + + | Date | Type | Department | Care Team | Description | +--------+ + + + + | 05/01/ | Hospital | [facility] | Annikalisaluis, | Chronic bilateral | | 2018 | Encounter | MED CTR XRAY [address] | [address] | low back pain with | | | | [place] | [facility], | sciatica, sciatica | | | | [place] [address] | [place] [address] | laterality | | | | [phone] | [phone] | unspecified; | | | | | | Adolescent | | | | | Order Processing Manager, [facility] | idiopathic scoliosis | | | | [...] classified | | | | | | ([facility]); Trochanteric | | | | [...] +---------+ + + | Blood Pressure | 137/64 | 05/01/2018 12:03 PM | | | | | PDT [...] | | | | | | [place] [address] | | | | | | [phone] | | | | | | | [...] | [place] EPIDURAL STEROID | Routin | 05/01/2018 | Chronic bilateral | Results for this | | INJECTION LUMBAR | e | 12:01 PM | low back pain with | procedure are in the | | TRANSFORAMINAL | | PDT | sciatica, sciatica | results section. | | | | | laterality | | | | | | unspecified | | | | | | Adolescent | | | | | | idiopathic scoliosis | | | | | | of lumbar region | | | | | | Spinal stenosis of | | | | | | lumbar region | | | | | | without neurogenic | | | | | | claudication | | | | | | Sacroiliitis, not | | | | | | elsewhere classified | | | | | | ([facility]) Trochanteric | | | | | | bursitis of both | | | | | | hips | | + +--------+ + + + [...] sciatica laterality unspecified | + + | Adolescent idiopathic scoliosis [...] +-------+------+------+ | betamethasone (CELESTONE | Given | 05/01/20 | 12 mg | | | | SOLUSPAN) injection 12 mg 12 mg, | | 18 11:44 | | | | | Intra-articular, EVERY 24 HOURS | | AM PDT | | | | | INTERVAL, First dose on Sharon | | | | | | | 05/01/18 at 1145, For 2 doses, | | | | | | | Shake well. Not for IV use., | | | | | | + +--------+ +-------+------+------+ +---+---+ | | | +---+---+ + +-------+ +-------+---+---+ | iohexol (OMNIPAQUE 300) 300 | Given | 05/01/20 | 4 mLs | | | | mg/mL injection 4 mL 4 mL, | | 18 11:42 | | | | | Other, ONCE, Sharon 05/01/18 at 1145, | | AM PDT | | | | | For 1 dose | | | | | | + +-------+ +-------+---+---+ +---+---+ | | | +---+---+ + +-------+ +-------+---+---+ | lidocaine (PF) 1% injection 2 | Given | 05/01/20 | 2 mLs | | | | mL 2 mL, Other, ONCE, Sharon | | 18 11:44 | | | | | 05/01/18 at 1145, For 1 dose, | | AM PDT | | | | | EPIDURAL, | | | | | | + +-------+ +-------+---+---+ +---+---+ | | | +---+---+ + +-------+ +-------+---+---+ | lidocaine buffered 1.3% | Given | 05/01/20 | 6 mLs | | | | injection 6 mL 6 mL, Other, | | 18 11:40 | | | | | ONCE, [facility] 05/01/18 at 1145, For 1 | | AM PDT | | | | | dose, INTRADERMAL, | | | | | | + [...]
--- OUTSIDE RECORDS SUMMARY | ~2019-10-18 | XMS | Encounter Summary ---
Demographics + + + | Address | [address] | | | [place] [address] | + + + | Home Phone [...] Team Providers + +------+ + | Care Managed Care Specialist Name | Role | Phone | [...] | Lumbar | [place], | [address] | | | | | radiculopath | Nilson Jensen MD | [place], | | | | | y | [address] | [place] | | | | | Procedures | [place] | [address] | | | | | [place] INJECT | [place], [place] | Phone: | | | | | ANES/STEROID | [address] | [phone] | | | | | FORAMEN | Phone: | Fax: | | | | | LUMBAR/SACRA | [phone] | [phone] | | | | | [address] IMG | Fax: | | | | | | GUIDE ,1 | [phone] | | | | | | LEVEL [place] | | | | | | | [...] + + | 07/31/ | Hospital | [facility] | Christiano, | Lumbar radiculopathy | | 2018 | Encounter | MED CTR XRAY [address] | [address] | | | | | [place] | [facility], | | | | | [place] [address] | [place] [address] | | | | | [phone] | | | | | | | | | | | | Regulatory Affairs Portfolio Leader, [facility] | | +--------+ + + + [...] | | | | | | [place] [address] | | | | | | [phone] | | | | | | | [...]
--- OUTSIDE RECORDS SUMMARY | ~2019-10-18 | XMS | Encounter Summary ---
Demographics + + + | Address | [address] | | | [place] [address] | + + + | Home Phone [...] Team Providers + +------+ + | Care Scutcher Tender Name | Role | Phone | [...] | syndrome, bilateral | | | | [place], | [place], [place] | (Primary Dx) | | | | [place] [address] | [address] | | | | | [phone] | | | +--------+ + + + [...] Chaudhry MD - 01/26/2013 10:27 AM PDT [facility] Mus[facility], Sports and Spine, Physiatry [address] [place] [address] Test Date: 01/26/2013 Patient Name: Rebecca Castillo : 1940 Physician: Nilson Chaudhry MD MR #: [id number] Sex: Female Referring Physician: Jarad Mitchell MD [...] hesitate to call. Nilson Chaudhry MD Diplomate, [place] [employer] of Physical Medicine and Rehabilitation. documented [...] | | | | | | [place] [address] | | | | | | [phone] | | | | | | | [...]
--- OUTSIDE RECORDS SUMMARY | ~2019-10-18 | XMS | Encounter Summary ---
Demographics + + + | Address | [address] | | | [place] [address] | + + + | Home Phone | | + + + | Preferred Language | Unknown | + + + | Marital Status | | + + + | Scientologist Affiliation | 1027 | + + + | Race | Unknown | + + + | Ethnic Group | Unknown | + + + Author + + + | Author | [facility] | | | and [place] | + + + | Organization | [facility] | | [...] Providers + +------+ + | Care Meat Boner Name | Role | Phone | + +------+ + | Jesus Mijares MD | PCP | | + +------+ + Encounter Details +--------+ + + + + | Date | Type | Department | Care Team | Description | +--------+ + + + + | 02/26/ | Hospital | [facility] | Nilson Chaudhry | | | 2012 | Encounter | MED CTR XRAY [address] | T, [address] | | | | | [place] | [place], [place] | | | | | [place] [address] | [address] | | | | | [phone] | | | +--------+ + + + [...] | | | | | | [place] [address] | | | | | | [phone] | | | | | | | [...] Performed At | + + + | [facility] | [place] | | Department [address] [facility] | [facility] | | [ rep [address]] [ rep [facility] | | st zip] Signed | - IMAGING | | | | | Patient Name: SHAVONNE CASTILLO Physician: | | | ANNALISA : 1940 Age: 73 Sex: F Unit #: [id number] | | | Exam Date: 02/26/13 Location: [facility] | | | Report #: [id number] Page: | | | %(RAD)RES..mtdd.print.filter("pg") of %(RAD) | | | RES..mtdd.print.filter("tpg") | | | | | | Accession Number: [id number] | | | SACROILIAC JOINT INJECTION, TROCHANTERIC [...] | | | Transcribed Date/Time: 02/26/2013 18:46 Seat Cover Installer: | | | CARLA <<Signature on File>> | | | Nilson Jensen | | | MD Richa02/27/13 0856 <Electronically signed by Nilson Jensen | | | [place]> Nilson Chaudhry MD 02/26/13 1818 | | | Seat Cover Installer: Boby Kim02/26/136 | | | | | + + + + + + + + | Performing | Address | City/State/Zipcode | Phone Number | | Organization | | | | + + + + + | [facility] [address] | [address] | [place] | [phone] | | [facility] | | [address] | | | - IMAGING | | | | + + + + + documented in this encounter Visit Diagnoses Not on filedocumented in this encounter
--- OUTSIDE RECORDS SUMMARY | ~2019-10-18 | XMS | Encounter Summary ---
Demographics + + + | Address | [address] | | | [place] [address] | + + + | Home Phone [...] Team Providers + +------+ + | Care Body And Fender Mechanic Name | Role | Phone | + [...] + + | 08/31/ | Telephone | [facility] | GoelJanuary, | CHF Management | | 2019 | | [facility] [place] | [address] | | | | | [address] | [address] [place], | | | | | [place], [place] | [place] [address] | | | | | [address] | [phone] | | | | | [phone] | | | +--------+ + + + [...] | | | | | | [place] [address] | | | | | | [phone] | | | | | | | [...]
--- OUTSIDE RECORDS SUMMARY | ~2019-10-18 | XMS | Encounter Summary ---
Demographics + + + | Address | [address] | | | [place] [address] | + + + | Home Phone [...] Team Providers + +------+ + | Care Computer Numerical Control Machinist Name | Role | Phone | + [...] Leonard Nice | | | | | [facility] | [place], [place] | | | | | [address] | [address] | | | | | [phone] | | | +--------+ + + + [...] | | | | | | [place] [id number] | | | | | | [phone] | | | | | | | [...] | EXTERNAL | | | A1c | [facility] | | LAB | | | [...]
--- OUTSIDE RECORDS SUMMARY | ~2019-10-18 | XMS | Encounter Summary ---
Demographics + + + | Address | [address] | | | [place] [address] | + + + | Home Phone [...] Team Providers + +------+ + | Care Hot Box Operator Name | Role | Phone | [...] [address] | | | | | [place], | [address] [place] | | | | | [place] [address] | [place] [address] | | | | | [phone] | [phone] | | | | | | | [...] | | | | | | [place] [address] | | | | | | [phone] | | | | | | | [...]
--- OUTSIDE RECORDS SUMMARY | ~2019-10-18 | XMS | Encounter Summary ---
Demographics + + + | Address | [address] | | | [place] [address] | + + + | Home Phone [...] Team Providers + +------+ + | Care Customs Collector Name | Role | Phone | [...] + + | 06/09/ | Telephone | [facility] | Nilson Chaudhry | Other (Referral to | | 2012 | | PHYSIATRY [address] | T, [address] | Dr. mouna moore) | | | | [place], | [place], [place] | | | | | [place] [address] | [address] | | | | | [phone] | | | +--------+ + + + [...] | | | | | | [place] [address] | | | | | | [phone] | | | | | | | [...]
--- OUTSIDE RECORDS SUMMARY | ~2019-10-18 | XMS | Encounter Summary ---
Demographics + + + | Address | [address] | | | [place] [address] | + + + | Home Phone [...] Team Providers + +------+ + | Care Electronic News Gathering Camera Person Name | Role | Phone | [...] W | GAMALIEL Saucedo [address] | ([facility]) (Primary Dx) | | | | [place], | [address] [place], | | | | | [place] [address] | [place] [address] | | | | | [phone] | [phone] | | | | | | | [...] | | | | | | [place] [address] | | | | | | [phone] | | | | | | | [...]
--- OUTSIDE RECORDS SUMMARY | ~2019-10-18 | XMS | Encounter Summary ---
Demographics + + + | Address | [address] | | | [place] [address] | + + + | Home Phone [...] Team Providers + +------+ + | Care Content Producer Name | Role | Phone | + [...] | | | [place], | [address] | | | | | Trochanteric | Nilson Jensen MD | [place], | | | | | bursitis of | [address] | [place] | | | | | right hip | [place] | [address] | | | | | Procedures | [place], [place] | Phone: | | | | | [place] | [address] | [phone] | | | | | Joint | Phone: | Fax: | | | | | Injection | [phone] | [phone] | | | | | Right | Fax: | | | | | | | [phone] | | +--------+--------+ + + + + [...] | | | Bogdanowicz, | [address] | | | | | Trochanteric | Sheryl, | [place], | | | | | bursitis of | PA-C [address] | [place] | | | | | both hips | [address] | [address] | | | | | Procedures | [place], [place] | Phone: | | | | | [place] | [address] | [phone] | | | | | Joint | Phone: | Fax: | | | | | Injection | [phone] | [phone] | | | | | Left | Fax: | | | | | | | [phone] | | +--------+--------+ + + + + [...] | | | Bogdanowicz, | [address] | | | | | Trochanteric | Sheryl, | [place], | | | | | bursitis of | PA-C [address] | [place] | | | | | both hips | [address] | [address] | | | | | Procedures | [place], [place] | Phone: | | | | | [place] | [address] | [phone] | | | | | Joint | Phone: | Fax: | | | | | Injection | [phone] | [phone] | | | | | Left | Fax: | | | | | | | [phone] | | +--------+--------+ + + + + Encounter Details +--------+ + + + + | Date | Type | Department | Care Team | Description | +--------+ + + + + | 04/29/ | Hospital | [facility] | Sabrinacz, | Trochanteric | | 2017 | Encounter | MED CTR XRAY [address] | GAMALIEL Saucedo [address] | bursitis of both | | | | [address] [place] | [address] [place], | hips; Trochanteric | | | | [place] [address] | [place] [address] | bursitis of right | | | | [phone] | [phone] | hip | | | | | [...] | | | | | | [place] [address] | | | | | | [phone] | | | | | | | [...] | [address] | [place] | [phone] | | [facility] | | [address] | | | - IMAGING | | | | + + + + + [place] Major Joint Injection Left (04/29/2017 1:37 PM PDT) + + | Specimen | + + | | + + + + ---+ | Narrative | Performed At | + + ---+ | | [facility] | | 04/29/2017 Bilateral Transforaminal Epidural Steroid Injections and | [facility] | | Bilateral Trochanteric [...] [address] | [place] | [phone] | | [facility] | | [address] | | | - IMAGING | | [...]
--- OUTSIDE RECORDS SUMMARY | ~2019-10-18 | XMS | Encounter Summary ---
Demographics + + + | Address | [address] | | | [place] [address] | + + + | Home Phone [...] Team Providers + +------+ + | Care Board Certified Behavioral Analyst Name | Role | Phone | + +------+ + PCP | Unavailable | + +------+ + Encounter Details +--------+ + + + + | Date | Type | Department | Care Team | Description | +--------+ + + + + | 04/21/ | Hospital | [facility] | | | | 2001 | Encounter | MED CTR XRAY [address] | | | | | | [address] | | | | | | [place] [address] | | | | | | [phone] | | | +--------+ + + + [...] [place], | | | | | | [place] [address] | | | | | | [phone] | | | | | | | [...]
--- OUTSIDE RECORDS SUMMARY | ~2019-10-18 | XMS | Encounter Summary ---
Demographics + + + | Address | [address] | | | [place] [address] | + + + | Home Phone [...] Providers + +------+ + | Care Plant Operator Helper Name | Role | Phone | [...] [address] | | | | | [place], | [address] [facility], | | | | | [place] [address] | [place] [address] | | | | | [phone] | [phone] | | | | | | | [...] [place], | | | | | | [place] [address] | | | | | | [phone] | | | | | | | [...]
--- OUTSIDE RECORDS SUMMARY | ~2019-10-18 | XMS | Encounter Summary ---
Demographics + + + | Address | [address] | | | [place] [address] | + + + | Home Phone [...] + + | Author | [facility] | | | and [place] | + + + | Organization | [facility] [...] Providers + +------+ + | Care Licensed Surveyor Name | Role | Phone | + +------+ + | Jesus Mijares MD | PCP | | + +------+ + Encounter Details +--------+ + + + + | Date | Type | Department | Care Team | Description | +--------+ + + + + | 06/12/ | Orders Only | [facility] | Veto Neri, | | | 2017 | | NEPRHOLOGY [place] | SUPERVISOR TOY PARTS FORMER [address] | | | | | [address] | [facility] | | | | | [address] [place], [place] | [place] | | | | | [address] | [address] | | | | | [phone] | [phone] | | | | | | | [...] | | | | | | [place] [address] | | | | | | [phone] | | | | | | | [...]
--- OUTSIDE RECORDS SUMMARY | ~2019-10-18 | XMS | Encounter Summary ---
Demographics + + + | Address | [address] | | | [place] [address] | + + + | Home Phone [...] Team Providers + +------+ + | Care Radio Board Operator Name | Role | Phone | + +------+ + | Jesus Mijares MD | PCP | | + +------+ + Encounter Details +--------+ + + + + | Date | Type | Department | Care Team | Description | +--------+ + + + + | 07/16/ | Orders Only | [facility] | Conversion | | | 2015 | | NEPRHOLOGY [place] | Transaction, | | | | | [address] | Provider Unknown | | | | | [address] [place], [place] | [phone] | | | | | [address] | | | | | | [phone] | | | +--------+ + + + [...] | | | | | | [place] [address] | | | | | | [phone] | | | | | | | [...] | | | LAB | | | [facility] | | | | | + + [...]
--- OUTSIDE RECORDS SUMMARY | ~2019-10-18 | XMS | Encounter Summary ---
Demographics + + + | Address | [address] | | | [place] [address] | + + + | Home Phone | | + + + | Preferred Language | Unknown | + + + | Marital Status | | + + + | Latter-Day Affiliation | 1027 | + + + | Race | Unknown | + + + | Ethnic Group | Unknown | + + + Author + + + | Author | [facility] | | | and [place] | + + + | Organization | [facility] | | | [...] Team Providers + +------+ + | Care Bottom Saw Operator Name | Role | Phone | + +------+ + | Jesus Mijares MD | PCP | | + +------+ + Reason for Visit + + + | Reason | Comments | + + + | Back Pain | low back pain with cramping in R>L legs | + + + Encounter Details +--------+---------+ + + + | Date | Type | Department | Care Team | Description | +--------+---------+ + + + | 03/06/ | Office | [facility] | Christiano, | Spinal stenosis of | | 2015 | Visit | PHYSIATRY [address] | GAMALIEL Saucedo [address] | lumbar region - | | | | [place], | [address] [facility], | L3/L4, adjacent | | | | [place] [address] | [place] [address] | segment disease | | | | [phone] | [phone] | (Primary Dx); | | | | [...] + + + | Blood Pressure | 116/76 | 03/06/2016 1:38 PM | | | | | PDT | | + + + + + | Pulse | 88 | 03/06/2016 1:38 PM | | | | | PDT [...] Weight | 88.5 kg (195 lb) | 03/06/2016 1:38 PM | | | | | PDT | | + + + + + | Height | 162.6 cm (5' 4") | 03/06/2016 1:38 PM | | | | | PDT | | + + + + + | Body Mass Index | 33.47 | 03/06/2016 1:38 PM | | | | | PDT | | + + + + + documented in this encounter Patient Instructions Patient Instructions Sheryl Alvarado PA-C - 03/06/2016 2:02 PM PDT Follow-up at the hospital thirty minutes [...] the procedure you must provide a driver supervisor to take you home. For all procedur es it is recommended that someone else drive you home. documented in this encounter Progress Notes Sheryl Alvarado PA-C - 03/06/2016 1:40 PM PDTFormatting of this note might be differe nt from the original. CHIEF COMPLAINT: Chief Complaint Patient presents with Back Pain low back pain with cramping in R>L legs HISTORY OF PRESENT ILLNESS: The patient is a 76 y.o. female being seen today in follow-up for complaints of low back pa in. The patient has been seen for this complaint in the past, with initial visit started b tomi Chaudhry. Previously it was recommended that she receive bilateral L4/L5 epidural i njection for spinal stenosis. She last received this last 12/06/2015, she reports having had 100% relief for the first months, 75% relief for the second month and now her pain has comp letely returned after three months. She is hoping [...] in [address] Yong Pena in [place], use of hydrocodone 3 x/day and flexeril, [...] 0.1 mg by mouth 2 times daily. glimepiride (AMARYL) 4 mg tablet Take 4 [...] mg tablet Take 20 mg by mouth Daily. No current facility-administered medications for this visit. [...] No abnormal bleeding PHYSICAL EXAMINATION: Filed Vitals: 03/06/16 1338 PainSc: 8 PainLoc: Back GENERAL: The patient [...] 2. Chronic bilateral low back pain with bilateral sciatica 3. Adolescent idiopathic scoliosis of lumbar region PLAN: 1. The patient has had significant conservative care including medications (NSAIDS and sam cotics), PT (multiple sessions over the years) and healthcare customer service. Unfortunately she cont inues to have significant [...] today. ELECTRONICALLY SIGNED BY: Sheryl Alvarado PA-C, 03/06/2016 documented in this encounter Plan of Treatment +--------+ + + + + | Date | Type | Specialty | Care Team | Description | +--------+ + + + + | 11/17/ | Office | Cardiology | Rajendra Fowler, | | | 2019 | Visit | | MD [address] | | | | | | [place], | | | | | | [place] [address] | | | | | | [phone] | | | | | | | [...] Injection on Right Diagnosis: Lumbar | [facility] | | radiculopathy and Trochanteric bursitis ICD-10 Codes M54.16 and | [facility] | | M70.61 Rebecca Castillo presents to [...] + + | Performing | Address | City/State/[facility] | Phone Number | | Organization | | | | + + + + + | [address] | [address] | [place] | [phone] | | [facility] | | [address] | | | - IMAGING | | | | + + + + + [place] SRINIV[place] Lumbar Transforaminal (03/06/2016 3:59 PM PDT) + + | Specimen | + + | | + + + + + | Narrative | Performed At | + + + | 03/06/2016 Bilateral Transforaminal Epidural Steroid Injections | [facility] | | and Trochanteric Bursa Injection on Right Diagnosis: Lumbar | [facility] | | radiculopathy and Trochanteric bursitis ICD-10 Codes M54.16 and | [facility] | | M70.61 Rebecca Castillo presents to [...] + | [facility] | [address] | [place], [place] | [phone] | | [facility] | | [address] | | | - IMAGING | | [...]
--- OUTSIDE RECORDS SUMMARY | ~2019-10-18 | XMS | Encounter Summary ---
Demographics + + + | Address | [address] | | | [place] [address] | + + + | Home Phone [...] | + + +---------+ + | Cruz Mraiano | ECON | Unknown | | + + +---------+ + | Carmine Mariano | ECON | Unknown | | + + +---------+ + Care Team Providers + +------+ + | Care Stacker Driver Name | Role | Phone | [...] Z Same | [address] | [facility] | | | | | Day | [address] | [place], [place] | | | | | Injection/Po | [place], | [address] Phone: | | | | | ssible INR | [place] | [phone] | | | | | Check | [address] | Fax: | | | | | Procedures | Phone: | [phone] | | | | | Follow up | [phone] | | | | | | DOS 11/ | Fax: | | | | | | / | [phone] | | + +--------+ + + + + Encounter Details +--------+---------+ + + + | Date | Type | Department | Care Team | Description | +--------+---------+ + + + | 09/02/ | Office | [facility] | Balbir Beckford PA-C | Chronic bilateral | | 2019 | Visit | PHYSIATRY [address] | [address] | low back pain with | | | | [place], | [place] | sciatica, sciatica | | | | [place] [address] | [address] | laterality | | | | [phone] | | unspecified (Primary | | | | | | Dx); Current use of | | | | | | local company intermodal truck driver | | | | | | anticoagulation; [...] future after she has been released by tank setter helper (from anticoagulation and A. Fib) and PCP (for osteoporosis) documented in this encounter Progress Notes Balbir Beckford PA-C - 09/02/2019 1:00 PM PST Balbir Beckford PA-C [address] [facility], [address] [place], [place] [address] FAX: CHIEF COMPLAINT: Chief Complaint Patient presents [...] has no apparent deficits with short or local company intermodal truck driver memory. The cranial nerves appear grossly intact. [...] sciatica laterality unspecified 2. Current use of local company intermodal truck driver anticoagulation POC Fingerstick INR 3. Adolescent idiopathic [...] sessions over the years) and resident care supervisor. Unfortunately Rebecca Castillo continues to have significant discomfort. It appears to me that the pain is primaril y coming from Lumbar spine and Right knee region. 5) Patient will follow up tank setter helper and PCP for A.Fib and Osteoporosis. 6) [...] | | | | | | [place] [address] | | | | | | [phone] | | | | | | | [...] | | e | 2:35 PM | local company intermodal truck driver | procedure are in the | | [...] | | | | | | [facility] | | [...] + + | [facility] [address] | [address] [facility] [address] | [place] [address] | [phone] | | [facility] | | | | | LABORATORY | | | | + + + + + documented in this encounter Visit Diagnoses + + | Diagnosis | + + | Chronic bilateral low back pain with sciatica, sciatica laterality unspecified - | | Primary | + + | Current use of local company intermodal truck driver anticoagulation Encounter for long-term (current) use of [...]
--- OUTSIDE RECORDS SUMMARY | ~2019-10-18 | XMS | Encounter Summary ---
Demographics + + + | Address | [address] | | | [place] [address] | + + + | Home Phone [...] Team Providers + +------+ + | Care Territory Representative Name | Role | Phone | [...] + | 12/03/ | Office | [facility] | Nilson Chaudhry | DEGENERATIVE DISC | | 2012 | Visit | PHYSIATRY [address] | MD Camila [address] | DISEASE, LUMBAR | | | | [place], | ST [place], [place] | SPINE (Primary Dx); | | | | [place] [address] | [address] | Lumbar | | | | [phone] | | radiculopathy; | | | | [...] - 12/03/2012 10:04 AM [facility] your scheduled procedure to [...] our off ice. Please also provide a catering truck driver to take you home on [...] | | | | | | [place] [address] | | | | | | [phone] | | | | | | | [...]
--- OUTSIDE RECORDS SUMMARY | ~2019-10-18 | XMS | Encounter Summary ---
Demographics + + + | Address | [address] | | | [place] [address] | + + + | Home Phone | | + + + | Preferred Language | Unknown | + + + | Marital Status | | + + + | Baptism Affiliation | 1027 | + + + | Race | Unknown | + + + | Ethnic Group | Unknown | + + + Author + + + | Author | [facility] | | | and [place] | + + + | Organization | [facility] | | | [...] Team Providers + +------+ + | Care Trailer Body Assembler Name | Role | Phone | [...] + + | 02/24/ | Office | [facility] | Christiano, | Lumbar radiculopathy | | 2015 | Visit | PHYSIATRY [address] | GAMALIEL Saucedo [address] | (Primary Dx); | | | | [place], | [place] [facility], | Spinal stenosis of | | | | [place] [address] | [place] [address] | lumbar region - | | | | [phone] | [phone] | L3/L4, adjacent | | | | [...] of the procedure you must provide a pile driver to take you home. For all [...] sessions over the years) and home care aide. Unfortunately she cont inues to [...] [place], | | | | | | [place] [address] | | | | | | [phone] | | | | | | | [...] radiculopathy ICD-9 Code 724.4 Rebecca Lua | [facility] | | Jonathan presents to the fluoroscopy suite for fluoroscopically-guided [facility] | | bilateral L4-L5 transforaminal epidural steroid [...] | + + + + + | [facility] | [address] | [place], [place] | [phone] | | [facility] | | [address] | | | - IMAGING | | [...]
--- OUTSIDE RECORDS SUMMARY | ~2019-10-18 | XMS | Encounter Summary ---
Demographics + + + | Address | [address] | | | [place] [address] | + + + | Home Phone | | + + + | Preferred Language | Unknown | + + + | Marital Status | | + + + | Latter Day Affiliation | 1027 | + + + | Race | Unknown | + + + | Ethnic Group | Unknown | + + + Author + + + | Author | [facility] | | | and [place] | + + + | Organization | [facility] | | [...] Team Providers + +------+ + | Care Wheat And Oats Flake Miller Name | Role | Phone | + [...] | | | [place], | [address] | | | | | Degenerative | Sheryl, | [place], | | | | | disc | PA-C [address] | [place] | | | | | disease, | [address] | [address] | | | | | lumbar | [place], [place] | Phone: | | | | | Chronic back | [address] | [phone] | | | | | pain | Phone: | Fax: | | | | | Idiopathic | [phone] | [phone] | | | | | scoliosis | Fax: | | | | | | Procedures | [phone] | | | | | | MRI [...] + + | 06/24/ | Office | [facility] | Sabrinacz, | SACROILIITIS | | 2013 | Visit | PHYSIATRY [address] | GAMALIEL Saucedo [address] | (Primary Dx); | | | | [address] [place], | [facility], | DEGENERATIVE DISC | | | | [place] [address] | [place] [address] | DISEASE, LUMBAR | | | | [phone] | [phone] | SPINE; Chronic back | | | [...] of the procedure you must provide a cmv driver to take you home. For all [...] n. This was performed on 08/07/13 in [place] by a Dr. Yong Pena. She reports [...] has no apparent deficits with short or longterm memory. She has appropriate fund of knowledge [...] [place], | | | | | | [place] [address] | | | | | | [phone] | | | | | | | [...] 720.0 Rebecca Castillo presents to the | [facility] | | fluoroscopy suite for fluoroscopically guided bilateral sacroiliac [facility] | | joint steroid injections as [...] | + + + + + | [facility]. | [address] | [place] | [phone] | | [facility] | | [address] | | | - IMAGING | | [...] 720.0 Rebecca Castillo presents to the | [facility] | | fluoroscopy suite for fluoroscopically guided bilateral sacroiliac [facility] | | joint steroid injections as [...] + | [facility] | [address] | [place] | [phone] | | [facility] | | [address] | | | - IMAGING | | [...] + | MISCELLANEOUS LAB | | | [phone] | + +---------+ + + | MISCELANIOUS LAB | | | [phone] | + +---------+ + + documented in [...]
--- OUTSIDE RECORDS SUMMARY | ~2019-10-18 | XMS | Encounter Summary ---
Demographics + + + | Address | [address] | | | [place] [address] | + + + | Home Phone [...] Team Providers + +------+ + | Care Solder Technician Name | Role | Phone | [...] | | | | [place] | [address] | | | | | | and/or Inj | Phone: | | | | | | Major Joint | [phone] | | | | | | Right | Fax: | | | | | | | [phone] | | +--------+--------+ + + + + [...] bursitis, right hip | | | | [facility], | [place], [place] | (Primary Dx) | | | | [place] [address] | [address] | | | | | [phone] | | | +--------+ + + + [...] | | | | | | [place] [address] | | | | | | [phone] | | | | | | | [...]
--- OUTSIDE RECORDS SUMMARY | ~2019-10-18 | XMS | Encounter Summary ---
Demographics + + + | Address | [address] | | | [place] [address] | + + + | Home Phone [...] Team Providers + +------+ + | Care Manufacturing Quality Inspector Name | Role | Phone | + +------+ + PCP | Unavailable | + +------+ + Encounter Details +--------+ + + + + | Date | Type | Department | Care Team | Description | +--------+ + + + + | 11/05/ | Hospital | [facility] | | | | 2002 | Encounter | MED CTR GENERIC OP | | | | | | CONV DEPT [address] | | | | | | [place], | | | | | | [place] [address] | | | | | | [phone] | | | +--------+ + + + [...] | | | | | | [place] [address] | | | | | | [phone] | | | | | | | [...]
--- OUTSIDE RECORDS SUMMARY | ~2019-10-18 | XMS | Encounter Summary ---
Demographics + + + | Address | [address] | | | [place] [address] | + + + | Home Phone [...] Providers + +------+ + | Care Senior Datastage Developer Name | Role | Phone | + +------+ + PCP | Unavailable | + +------+ + Encounter Details +--------+ + + + + | Date | Type | Department | Care Team | Description | +--------+ + + + + | 11/05/ | Hospital | [facility] | | | | 2002 | Encounter | MED CTR GENERIC OP | | | | | | CONV DEPT [address] | | | | | | [place], | | | | | | [place] [address] | | | | | | [phone] | | | +--------+ + + + [...] | | | | | | [place] [address] | | | | | | [phone] | | | | | | | [...]
--- OUTSIDE RECORDS SUMMARY | ~2019-10-18 | XMS | Encounter Summary ---
Demographics + + + | Address | [address] | | | [place] [address] | + + + | Home Phone [...] Team Providers + +------+ + | Care Government Relations Manager Name | Role | Phone | + +------+ + PCP | Unavailable | + +------+ + Encounter Details +--------+ + + + + | Date | Type | Department | Care Team | Description | +--------+ + + + + | 04/09/ | Hospital | [facility] | Fadi Awad | | | 2011 | Encounter | MED CTR XRAY [address] | F, [address] | | | | | [place] | [place], [place] | | | | | [place] [address] | [address] | | | | | [phone] | [phone] | | | | | | | [...] | | | | | | [place] [address] | | | | | | [phone] | | | | | | | [...] Performed At | + + + | [facility] | [facility] | | [address] [facility] | [facility] | | LUMBAR SPINE CLINICAL | DIAG [...] Transcribed Date/Time: 01/21/2012 15:06 | | | Network Control Supervisor: SALO <Electronically Signed by Jarad Renae | | | MD Ji> 01/22/12 0713 | | + + + + + | Procedure Note | + + | Jeanmarie, Rad Conversion - 11/20/2013 5:04 PM [facility] | | Diagnostic Imaging Department [address] [place] [address] | | LUMBAR SPINE CLINICAL HISTORY: BACK [...] 14:51 | |Transcribed Date/Time: 01/21/2012 15:06 | |Network Control Supervisor: | |<Electronically Signed by Jarad Workman MD> [...]
--- OUTSIDE RECORDS SUMMARY | ~2019-10-18 | XMS | Encounter Summary ---
Demographics + + + | Address | [address] | | | [place] [address] | + + + | Home Phone [...] Organization | [facility] [place] [...] Team Providers + +------+ + | Care Advertising Assistant Name | Role | Phone | [...] Z Same | [address] | [facility] | | | | | Day | [address] | [place], [place] | | | | | Injection/Po | [place], | [address] Phone: | | | | | ssible INR | [place] | [phone] | | | | | Check | [phone] | Fax: | | | | | Procedures | Phone: | [phone] | | | | | Follow up | [phone] | | | | | | DOS 11/ | Fax: | | | | | | / | [phone] | | + +--------+ + + + + Encounter Details +--------+---------+ + + + | Date | Type | Department | Care Team | Description | +--------+---------+ + + + | 09/02/ | Office | [facility] | Balbir Beckford PA-C | Chronic bilateral | | 2019 | Visit | PHYSIATRY [address] | [address] | low back pain with | | | | [place], | [place] | sciatica, sciatica | | | | [place] [address] | [address] | laterality | | | | [phone] | | unspecified (Primary | | | | | | Dx); Current use of | | | | | | terminal operations manager | | | | | | anticoagulation; [...] future after she has been released by reel blade bender furnace tender (from anticoagulation and A. Fib) and PCP (for osteoporosis) documented in this encounter Progress Notes Balbir Beckford PA-C - 09/02/2019 1:00 PM PST Balbir Beckford PA-C [address] [facility], [address] [place], [place] [address] FAX: CHIEF COMPLAINT: Chief Complaint Patient presents [...] no apparent deficits with short or terminal operations manager memory. The cranial nerves appear grossly intact. [...] sciatica laterality unspecified 2. Current use of terminal operations manager anticoagulation POC Fingerstick INR 3. Adolescent idiopathic [...] PT (multiple sessions over the years) and medicare nurse. Unfortunately Rebecca Castillo continues to have significant discomfort. It appears to me that the pain is primaril y coming from Lumbar spine and Right knee region. 5) Patient will follow up reel blade bender furnace tender and PCP for A.Fib and Osteoporosis. 6) Patient will return to our clinic once she has been released to do so by PCP and Cardiol ogist. I spent 20 minutes in visit with Rebecca Chanell Castillo today with the majority of time spent coun selling the patient on her diagnosis, options for her care, and coordinating her care. ELECTRONICALLY SIGNED BY: aBlbir Beckford PA-C, 09/02/2019 2:47 PM documented in [...] | | | | | | [place] [address] | | | | | | [phone] | | | | | | | [...] | e | 2:35 PM | terminal operations manager | procedure are in the | | [...] + + | [address] | [address] [facility] [address] | [place] [address] | [phone] | | [facility] | | | | | LABORATORY | | | | + + + + + documented in this encounter Visit Diagnoses + + | Diagnosis | + + | Chronic bilateral low back pain with sciatica, sciatica laterality unspecified - | | Primary | + + | Current use of terminal operations manager anticoagulation Encounter for long-term (current) use of [...]
--- OUTSIDE RECORDS SUMMARY | ~2019-10-18 | XMS | Encounter Summary ---
Demographics + + + | Address | [address] | | | [place] [address] | + + + | Home Phone [...] Team Providers + +------+ + | Care Marine Electronics Technician Name | Role | Phone | [...] + + | 06/11/ | Office | [facility] | [place], | Spinal stenosis of | | 2015 | Visit | PHYSIATRY [address] | [address] | lumbar region - | | | | [place], | [address] [facility], | L3/L4, adjacent | | | | [place] [address] | [place] [address] | segment disease | | | | [phone] | [phone] | (Primary Dx); | | | | [...] of the procedure you must provide a locomotive driver to take you home. For all [...] in [address] [place]ong [place] in [place], use of hydrocodone 3 x/day and flexeril, [...] has no apparent deficits with short or mcc memory. She has appropriate fund of knowledge [...] PT (multiple sessions over the years) and assisted living care manager. Unfortunately she cont inues to have [...] | | | | | | [place] [address] | | | | | | [phone] | | | | | | | [...] Bursa Injection on Right Diagnosis: Lumbar | [facility] | | radiculopathy and Trochanteric bursitis ICD-10 Codes M54.16 and | [facility] | | M70.61 Rebecca Castillo presents [...] [address] | [place] | [phone] | | [facility] | | [address] | | | - IMAGING | | [...] Bursa Injection on Right Diagnosis: Lumbar | [facility] | | radiculopathy and Trochanteric bursitis ICD-10 Codes M54.16 and | [facility] | | M70.61 Rebecca Castillo presents [...] [address] | [place] | [phone] | | [facility] | | [address] | | | - IMAGING | | [...]
--- OUTSIDE RECORDS SUMMARY | ~2019-10-18 | XMS | Encounter Summary ---
Demographics + + + | Address | [address] | | | [place] [address] | + + + | Home Phone | | + + + | Preferred Language | Unknown | + + + | Marital Status | | + + + | Yazidi Affiliation | 1027 | + + + | Race | Unknown | + + + | Ethnic Group | Unknown | + + + Author + + + | Author | [facility] | | | and [place] | + + + | Organization | [facility] | | [...] Team Providers + +------+ + | Care Bicycle Ii Assembler Name | Role | Phone | [...] [address] | | | | | [place], | [address] [place] | | | | | [place] [address] | [place] [address] | | | | | [phone] | [phone] | | | | | | | [...] | | | | | | [place] [address] | | | | | | [phone] | | | | | | | [...]
--- OUTSIDE RECORDS SUMMARY | ~2019-10-18 | XMS | Encounter Summary ---
Demographics + + + | Address | [address] | | | [place] [address] | + + + | Home Phone [...] Team Providers + +------+ + | Care Shore Hand Dredge Or Barge Name | Role | Phone | + [...] | Lumbar | Bhupindererenberg, | [address] | | | | | radiculopath | Nilson Jensen MD | [place], | | | | | y | [address] | [place] | | | | | Procedures | [place] | [address] | | | | | AR INJECT | [place], [place] | Phone: | | | | | ANES/STEROID | [address] | [phone] | | | | | FORAMEN | Phone: | Fax: | | | | | LUMBAR/SACRA | [phone] | [phone] | | | | | L W IMG | Fax: | | | | | | GUIDE ,1 | [phone] | | | | | | LEVEL HC AR | | | | | | | [...] + + | 12/06/ | Hospital | [facility] | [place], | Spinal stenosis of | | 2016 | Encounter | MED CTR XRAY [address] | [address] | lumbar region - | | | | [place] | [facility], | L3/L4, adjacent | | | | [place] [address] | [place] [address] | segment disease; | | | | [phone] | [phone] | Lumbar | | | | | | radiculopathy; | | | | | Ghost WriterJaspal | DEGENERATIVE DISC | | | | [...] | | | | | | [place] [address] | | | | | | [phone] | | | | | | | [...] 12/06/2015 Bilateral Transforaminal Epidural Steroid Injections | [facility] | | Diagnosis: Lumbar radiculopathy ICD-10 Code M54.16 Rebecca | [facility] | | Chanell Castillo presents to the fluoroscopy suite for [facility] | | fluoroscopically-guided bilateral L4-L5 transforaminal [...] | + + + + + | [address] | [address] | [place] | [phone] | | [facility] | | [address] | | | - IMAGING | | [...]
--- OUTSIDE RECORDS SUMMARY | ~2019-10-18 | XMS | Encounter Summary ---
Demographics + + + | Address | [address] | | | [place] [address] | + + + | Home Phone [...] Team Providers + +------+ + | Care Pmo Consultant Name | Role | Phone | + +------+ + | Jesus Mijares MD | PCP | | + +------+ + Encounter Details +--------+ + + + + | Date | Type | Department | Care Team | Description | +--------+ + + + + | 05/14/ | Orders Only | [facility] | Conversion | | | 2017 | | NEPHROLOGY ELEAZAR | Transaction, | | | | | [address] | Provider Unknown | | | | | [address] [facility] [place] | | | | | | [address] | (Fax) | | | | | [phone] | | | +--------+ + + + [...] | | | | | | [place] [address] | | | | | | [phone] | | | | | | | [...] + +--------+ + + + | CULTURE, URINE | Routin | 05/14/2017 | | Results for this | | | e | 1:05 PM | | procedure are in the | | | | PDT | | results section. | + +--------+ + + + documented in this encounter Results Culture, Urine (05/14/2017 1:05 PM PDT) + + | Specimen | + + | Urine specimen | | (specimen) | + + + + + | Narrative | Performed At | + + + | Specimen Description Urine CULTURE | EXTERNAL LAB | | Probable Contaminants, suggest | | | recollection. REPORT STATUS Final | | | | | + + [...]
--- OUTSIDE RECORDS SUMMARY | ~2019-10-18 | XMS | Encounter Summary ---
Demographics + + + | Address | [address] | | | [place] [address] | + + + | Home Phone | | + + + | Preferred Language | Unknown | + + + | Marital Status | | + + + | Protestant Affiliation | 1027 | + + + | Race | Unknown | + + + | Ethnic Group | Unknown | + + + Author + + + | Author | [facility] | | | and [place] | + + + | Organization | [facility] | | | [...] Team Providers + +------+ + | Care Aquatics Specialist Name | Role | Phone | [...] + + | 12/06/ | Office | [facility] | [place], | Spinal stenosis of | | 2016 | Visit | PHYSIATRY [address] | [address] | lumbar region - | | | | [place], | [facility], | L3/L4, adjacent | | | | [place] [address] | [place] [address] | segment disease | | | | [phone] | [phone] | (Primary Dx); Lumbar | | | [...] of the procedure you must provide a river driver to take you home. For all [...] in [address] 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 She has appropriate fund of knowledge [...] PT (multiple sessions over the years) and health care marketing manager. Unfortunately she cont inues to have [...] | | | | | | [place] [address] | | | | | | [phone] | | | | | | | [...] Castillo presents to the fluoroscopy suite for [facility] | | fluoroscopically-guided bilateral L4-L5 [...] | + + + + + | [address] | [address] | [place] | [phone] | | [facility] | | [address] | | | - IMAGING | | [...]
--- OUTSIDE RECORDS SUMMARY | ~2019-10-18 | XMS | Encounter Summary ---
Demographics + + + | Address | [address] | | | [place] [address] | + + + | Home Phone [...] Team Providers + +------+ + | Care Maple Sugar Maker Name | Role | Phone | [...] | Lumbar | Bhupindererenberg, | [address] | | | | | radiculopath | Nilson Jensen MD | [place], | | | | | y | [address] | [place] | | | | | Procedures | [place] | [address] | | | | | IN INJECT | [place], [place] | Phone: | | | | | ANES/STEROID | [address] | [phone] | | | | | FORAMEN | Phone: | Fax: | | | | | LUMBAR/SACRA | [phone] | [phone] | | | | | L W IMG | Fax: | | | | | | GUIDE ,1 | [phone] | | | | | | LEVEL HC IN | | | | | | [...] + + | 12/06/ | Hospital | [facility] | [place], | Spinal stenosis of | | 2016 | Encounter | MED CTR XRAY [address] | [address] | lumbar region - | | | | [place] | [facility], | L3/L4, adjacent | | | | [place] [address] | [place] [address] | segment disease; | | | | [phone] | [phone] | Lumbar | | | | | | radiculopathy; | | | | | Desk AttendantJaspal | DEGENERATIVE DISC | | | | [...] | | | | | | [place] [address] | | | | | | [phone] | | | | | | | [...] 12/06/2015 Bilateral Transforaminal Epidural Steroid Injections | [facility] | | Diagnosis: Lumbar radiculopathy ICD-10 Code M54.16 Rebecca | [facility] | | Chanell Castillo presents to the fluoroscopy suite for [facility] | | fluoroscopically-guided bilateral L4-L5 transforaminal epidural [...] + + | Performing | Address | City[facility] | Phone Number | | Organization | | | | + + + + + | [address] | [address] | [place] | [phone] | | [facility] | | [address] | | | - IMAGING | | [...]
--- OUTSIDE RECORDS SUMMARY | ~2019-10-18 | XMS | Encounter Summary ---
Demographics + + + | Address | [address] | | | [place] [address] | + + + | Home Phone [...] Team Providers + +------+ + | Care Healthcare Facility Administrator Name | Role | Phone | [...] + + | 06/11/ | Procedure | [facility] | Rajendra Fowler, | Cardiac pacemaker in | | 2019 | visit | [facility] [place] | [address] | situ (Primary Dx); | | | | [address] | [place], | Sick sinus syndrome | | | | [place], [place] | [place] [address] | ([facility]); Chronic | | | | [address] | [phone] | diastolic heart | | | | [phone] | | failure ([facility]); | | | | | | Paroxysmal atrial | | | | | | fibrillation ([facility]) | +--------+ + + + [...] | | | | | | [place] [address] | | | | | | [phone] | | | | | | | [...] Mijares MD : | | | 1940MRN: [id number] Primary cardiology provider: Rai Fowler | | | Primary electrophysiology provider: Mary Moe Device consumer insights specialist: | | | Biotronik Device type: Dual chamber Battery Longevity: OK/80% | | | capacity RA Pacin% (but total of AP/VS and AP/NEURODIAGNOSTIC TECHNOLOGIST is 81%)RV | | | Pacin% INTERROGATION [...]
--- OUTSIDE RECORDS SUMMARY | ~2019-10-18 | XMS | Encounter Summary ---
Demographics + + + | Address | [address] | | | [place] [address] | + + + | Home Phone | | + + + | Preferred Language | Unknown | + + + | Marital Status | | + + + | Evangelical Affiliation | Unknown | + + + [...] Team Providers + +------+ + | Care Quantitative Developer Name | Role | Phone | [...] as of this encounter Progress Notes Interface, Crown Pouncer In - 05/15/2006 1:04 AM PDTCLINIC DATE: [...] bypass. Indra Ramos M.D. CD / HS [id number] / [id number] / [id number] / cc: Jesus Mijares M.D. [address] [place] [address] Geoffrey Castro M.D. [address] [place], [place] [id number] signed by Interface, Crown Pouncer In at 05/15/2006 1:0 4 AM PDTdocumented in this encounter Plan of Treatment Not on filedocumented as of this encounter Visit Diagnoses Not on filedocumented in this encounter"
--- OUTSIDE RECORDS SUMMARY | ~2019-10-18 | XMS | Encounter Summary ---
Demographics + + + | Address | [address] | | | [place] [address] | + + + | Home Phone | | + + + | Preferred Language | Unknown | + + + | Marital Status | | + + + | Mandaeism Affiliation | 1027 | + + + | Race | Unknown | + + + | Ethnic Group | Unknown | + + + Author + + + | Author | [facility] | | | and [place] | + + + | Organization | [facility] | | [...] Team Providers + +------+ + | Care Material Flow Analyst Name | Role | Phone | [...] | | | | | Procedures | [place], [place] | | | | | | [place] | [address] | | | | | | Joint | Phone: | | | | | | Injection | [phone] | | | | | | Right | Fax: | | | | | | | [phone] | | +--------+--------+ + + + + [...] | | | [place], | [address] | | | | | Trochanteric | [place], | [place], | | | | | bursitis of | PA-C [address] | [place] | | | | | both hips | [address] | [address] | | | | | Lumbar | [place], [place] | Phone: | | | | | radiculopath | [address] | [phone] | | | | | y | Phone: | Fax: | | | | | Procedures | [phone] | [phone] | | | | | [place] | Fax: | | | | | | Joint | [phone] | | | | | | Injection | | | | | | | Left HI | | | | | | [...] | | | | | ADD ON HI | | | | | | [...] | | | | both hips | [address] | | | | | | Procedures | [place] | | | | | | [place] | [address] | | | | | | Joint | Phone: | | | | | | Injection | [phone] | | | | | | Right | Fax: | | | | | | | [phone] | | +--------+--------+ + + + + Encounter Details +--------+ + + + + | Date | Type | Department | Care Team | Description | +--------+ + + + + | 08/05/ | Hospital | [facility] | Christiano, | Trochanteric | | 2017 | Encounter | MED CTR XRAY [address] | [address] | bursitis of both | | | | [address] | [facility], | hips; Spinal | | | | [place] [address] | [place] [address] | stenosis of lumbar | | | | [phone] | [phone] | region - L3/L4, | | | | | | adjacent segment | | | | | Fingernail FormerJaspal | disease; Lumbar | | | | | | radiculopathy | +--------+ + + + + Social [...] +---------+ + + | Blood Pressure | 123/69 | 08/05/2017 1:00 PM | | | | | [...] | | | | | | [place] [address] | | | | | | [phone] | | | | | | | [...] | Imaging | Routin | Trochanteric | 1 Occurrences | | Injection Left | | e | bursitis of both | starting 08/05/2017 | | | | | hips | until 08/05/2017 | + +---------+--------+ + + documented as of this encounter Procedures + +--------+ + + + | Procedure Name | Priori | Date/Time | Associated Diagnosis | Comments | | | ty | | | | + +--------+ + + + | [place] ASPIRATION | Routin | 08/05/2017 | Trochanteric | Results for this | | INJECTION MAJOR | e | 1:03 PM | bursitis of both | procedure are in the | | JOINT RIGHT | | PDT | hips | results section. | + +--------+ + + + | [place] EPIDURAL STEROID | Routin | 08/05/2017 | Spinal stenosis of | Results for this | | INJECTION LUMBAR | e | 1:03 PM | lumbar region - | procedure are in the | | TRANSFORAMINAL | | PDT | L3/L4, adjacent | results section. | | | | | segment disease | | | | | | Lumbar radiculopathy | | + +--------+ + + + documented in this encounter Results [place] SRINIVAS Lumbar Transforaminal (08/05/2017 1:03 PM PDT) + + | Specimen | + + | | + + + + ---+ | Narrative | Performed At | + + ---+ | 08/05/2017 | [facility] | | Bilateral Transforaminal Epidural Steroid Injections and Right | [facility] | | Trochanteric Bursa Injection Diagnosis: Lumbar [...] [facility] | [address] | [place] | [phone] | | [facility] | | [address] | | | - IMAGING | | [...] [address] | [place] | [phone] | | [facility] | | [address] | | | - IMAGING | | | | + + + + + documented in this encounter Visit Diagnoses + + | Diagnosis | + + | Trochanteric bursitis of both hips Enthesopathy of hip region | + + | Spinal stenosis of [...] dexamethasone (PF) 10 mg/mL | Given | 08/05/20 | 15 mg | | | | injection 15 mg 15 mg, Other, | | 17 1:15 | | | | | ONCE, 08/05/17 at 1330, For 1 | | PM PDT | | | | | dose | | | | | | + +--------+ +-------+------+------+ +---+---+ | | | +---+---+ + +-------+ +-------+---+---+ | iohexol (OMNIPAQUE 300) 300 | Given | 08/05/20 | 4 mLs | | | | mg/mL injection 4 mL 4 mL, | | 17 1:10 | | | | | Other, ONCE, 08/05/17 at | | PM PDT | | | | | 1330, For 1 dose | | | | | | + +-------+ +-------+---+---+ +---+---+ | | | +---+---+ + +-------+ +-------+---+---+ | lidocaine (PF) 1% injection 2 | Given | 08/05/20 | 2 mLs | | | | mL 2 mL, Other, ONCE, Mon | | 17 1:15 | | | | | 08/05/17 at 1330, For 1 dose | | PM PDT | | | | + +-------+ +-------+---+---+ +---+---+ | | | +---+---+ + +-------+ +-------+---+---+ | lidocaine (PF) 1% injection 2 | Given | 08/05/20 | 2 mLs | | | | mL 2 mL, Other, ONCE, Mon | | 17 1:25 | | | | | 08/05/17 at 1330, For 1 dose | | PM PDT | | | | + +-------+ +-------+---+---+ +---+---+ | | | +---+---+ + +-------+ +--------+---+---+ | lidocaine buffered 1% injection | Given | 08/05/20 | 10 mLs | | | | 10 mL 10 mL, Other, ONCE, Mon | | 17 1:05 | | | | | 08/05/17 at 1330, For 1 dose | | PM PDT | | | | + +-------+ +--------+---+---+ +---+---+ | | | +---+---+ + +-------+ +-------+---+---+ | lidocaine buffered 1% injection | Given | 08/05/20 | 5 mLs | | | | 5 mL 5 mL, Other, ONCE, Mon | | 17 1:20 | | | | | 08/05/17 at 1330, For 1 dose | | PM PDT | | | | + +-------+ +-------+---+---+ +---+---+ | | | +---+---+ + +-------+ +-------+---+---+ | triamcinolone acetonide | Given | 08/05/20 | 40 mg | | | | (KENALOG-40) 40 mg/mL injection | | 17 1:25 | | | | | 40 mg 40 mg, Other, ONCE, Mon | | PM PDT | | | | | 08/05/17 at 1330, For 1 dose, | | | | [...]
--- OUTSIDE RECORDS SUMMARY | ~2019-10-18 | XMS | Encounter Summary ---
Demographics + + + | Address | [address] | | | [place] [address] | + + + | Home Phone | | + + + | Preferred Language | Unknown | + + + | Marital Status | | + + + | Cheondoism Affiliation | 1027 | + + + | Race | Unknown | + + + | Ethnic Group | Unknown | + + + Author + + + | Author | [facility] | | | and [place] | + + + | Organization | [facility] | | | [...] Providers + +------+ + | Care Web Specialist Name | Role | Phone | [...] + + | 04/27/ | Telephone | [facility] | Capo Bermudez, | Results, Imaging | | 2019 | | PHYSIATRY [address] | PA-C [address] | (DEXA) | | | | [place], | [address] [place] | | | | | [place] [address] | [place] [address] | | | | | [phone] | [phone] | | | | | | | [...] | | | | | | [place] [address] | | | | | | [phone] | | | | | | | [...]
--- OUTSIDE RECORDS SUMMARY | ~2019-10-18 | XMS | Encounter Summary ---
Demographics + + + | Address | [address] | | | [place] [address] | + + + | Home Phone [...] + +------+ + | Care Director Of Product Marketing Name | Role | Phone | + [...] + + | 03/30/ | Telephone | [facility] | Capo Bermudez, | Results, Imaging | | 2019 | | PHYSIATRY [address] | PA-C [address] | (Shoulder XR) | | | | [place], | [address] [place] | | | | | [place] [address] | [place] [address] | | | | | [phone] | [phone] | | | | | | | [...] | | | | | | [place] [address] | | | | | | [phone] | | | | | | | [...]
--- OUTSIDE RECORDS SUMMARY | ~2019-10-18 | XMS | Encounter Summary ---
Demographics + + + | Address | [address] | | | [place] [address] | + + + | Home Phone | | + + + | Preferred Language | Unknown | + + + | Marital Status | | + + + | Hinduism Affiliation | Unknown | + + + | Race | White | + + + | Ethnic Group | Not or | + + + Author + + + | Author | [facility] | + + + | Organization | [facility] | + + + | Address [...] Team Providers + +------+ + | Care Shear Tender Name | Role | Phone | [...] as of this encounter Progress Notes Interface, Security And Compliance Analyst In - 10/24/2006 3:06 AM PST [facility] Account No. PROGRESS RECORD Name Rebecca [...] has been treated by Dr. Mena in [place], [place]. She also developed an 8 x [...] if any problems develop. Kavon Melton M.D. Landscaping Manager, Plastic and Reconstructive Surgery TOREY/michael d ocumented in this encounter Plan of Treatment Not on filedocumented as of this encounter Visit Diagnoses Not on filedocumented in this encounter"
--- OUTSIDE RECORDS SUMMARY | ~2019-10-18 | XMS | Encounter Summary ---
Demographics + + + | Address | [address] | | | [place] [address] | + + + | Home Phone [...] Providers + +------+ + | Care Supervisor Rolling Room Name | Role | Phone | + +------+ + | Jesus Mijares MD | PCP | | + +------+ + Encounter Details +--------+ + + + + | Date | Type | Department | Care Team | Description | +--------+ + + + + | 03/14/ | Orders Only | [facility] | Conversion | | | 2016 | | NEPRHOLOGY [place] | Transaction, | | | | | [address] | Provider Unknown | | | | | [address] [place], [place] | [phone] | | | | | [address] | | | | | | [phone] | | | +--------+ + + + [...] | | | | | | [place] [address] | | | | | | [phone] | | | | | | | [...] - 1.030 | EXTERNAL | | | May | | | LAB | | + [...] | | | LAB | | | [place] | | | | | + +---------+ [...]
--- OUTSIDE RECORDS SUMMARY | ~2019-10-18 | XMS | Encounter Summary ---
Demographics + + + | Address | [address] | | | [place] [address] | + + + | Home Phone [...] Team Providers + +------+ + | Care Data Technician Name | Role | Phone | + +------+ + | Jesus Mijares MD | PCP | | + +------+ + Encounter Details +--------+ + + + + | Date | Type | Department | Care Team | Description | +--------+ + + + + | 05/14/ | Orders Only | [facility] | Veto Neri, | | | 2016 | | NEPHROLOGY [place] | SKIVER BLOCKERS [address] | | | | | [address] | [address] | | | | | [address] [place], [place] | [place], [place] | | | | | [address] | [address] | | | | | [phone] | [phone] | | | | | | | [...] | | | | | | [place] [address] | | | | | | [phone] | | | | | | | [...] | | | LAB | | | [place] | | | | | + + [...]
--- OUTSIDE RECORDS SUMMARY | ~2019-10-18 | XMS | Encounter Summary ---
Demographics + + + | Address | [address] | | | [place] [address] | + + + | Home Phone | | + + + | Preferred Language | Unknown | + + + | Marital Status | | + + + | Temple Affiliation | 1027 | + + + | Race | Unknown | + + + | Ethnic Group | Unknown | + + + Author + + + | Author | [facility] | | | and [place] | + + + | Organization | [facility] | | [...] Providers + +------+ + | Care Associate Justice Name | Role | Phone | + [...] | | | Christiano, | [address] | | | | | Trochanteric | Sheryl, | [place], | | | | | bursitis of | PA-C [address] | [place] | | | | | right hip | [address] | [address] | | | | | Procedures | [place] | Phone: | | | | | [place] | [address] | [phone] | | | | | and/or Inj | Phone: | Fax: | | | | | Major Joint | [phone] | [phone] | | | | | Right | Fax: | | | | | | | [phone] | | +--------+--------+ + + + + [...] | | | Christiano, | [address] | | | | | Trochanteric | Sheryl, | [place], | | | | | bursitis of | PA-C [address] | [place] | | | | | right hip | [address] | [address] | | | | | Procedures | [place], [place] | Phone: | | | | | [place] | [address] | [phone] | | | | | and/or Inj | Phone: | Fax: | | | | | Major Joint | [phone] | [phone] | | | | | Right | Fax: | | | | | | | [phone] | | +--------+--------+ + + + + Encounter Details +--------+ + + + + | Date | Type | Department | Care Team | Description | +--------+ + + + + | 02/06/ | Hospital | [facility] | Christiano, | Lumbar | | 2018 | Encounter | MED CTR XRAY [address] | GAMALIEL Saucedo [address] | radiculopathy; | | | | [address] [place] | [address] [place], | Spinal stenosis of | | | | [place] [address] | [place] [address] | lumbar region | | | | [phone] | [phone] | without neurogenic | | | | | | claudication; | | | | | Inspectors And Regulatory Officers, [facility] | DEGENERATIVE DISC | | [...] | | | | | | [place] [address] | | | | | | [phone] | | | | | | | [...] + + | Performing | Address | City/State[facility] | Phone Number | | [...] 1:29 | | | | | ONCE, [facility] 02/06/18 at 1345, For 1 | [...] | | | | | Other, ONCE, [facility] 02/06/18 at 1345, | | PM PDT | | | | | For 1 dose | | | | | | + +-------+ +-------+---+---+ +---+---+ | | | +---+---+ + +-------+ +-------+---+---+ | lidocaine (PF) 1% injection 2 | Given | 02/07/20 | 2 mLs | | | | mL 2 mL, Other, ONCE, [facility] | | 18 1:30 | | [...] 18 1:32 | | | | | [facility] 02/06/18 at 1345, For 1 dose | | PM PDT | | | | + +-------+ +-------+---+---+ +---+---+ | | | +---+---+ + +-------+ +-------+---+ + | lidocaine buffered 1.5% | Given | 02/07/20 | 6 mLs | | Other | | injection 6 mL 6 mL, | | 18 1:24 | | | (Comment | | Intradermal, ONCE, [facility] 02/06/18 at | | PM PDT [...] PDT | | | | | ONCE, [facility] 02/06/18 at 1345, For 1 | [...]
--- OUTSIDE RECORDS SUMMARY | ~2019-10-18 | XMS | Encounter Summary ---
Demographics + + + | Address | [address] | | | [place] [address] | + + + | Home Phone [...] Team Providers + +------+ + | Care Gunstock Repairer Name | Role | Phone | + +------+ + | Jesus Mijares MD | PCP | | + +------+ + Encounter Details +--------+ + + + + | Date | Type | Department | Care Team | Description | +--------+ + + + + | 06/11/ | Hospital | [facility] | Anaidaroldo, | Bursitis, hip, right | | 2016 | Encounter | MED CTR XRAY [address] | [address]ALI[address] Saucedo [address] | (Primary Dx); | | | | [place] | [facility], | Spinal stenosis of | | | | [place] [address] | [place] [address] | lumbar region - | | | | [phone] | [phone] | L3/L4, 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; | | | | | Stock Receiver, [facility] | Chronic bilateral | | | [...] | | | | | | [place] [address] | | | | | | [phone] | | | | | | | [...] Trochanteric bursitis ICD-10 Codes M54.16 and | [facility] | | M70.61 Rebecca Castillo [...] | + + + + + | [address] | [address] | [place] | [phone] | | [facility] | | [address] | | | - IMAGING | | [...] Bursa Injection on Right Diagnosis: Lumbar | [facility] | | radiculopathy and Trochanteric bursitis ICD-10 Codes M54.16 and | [facility] | | M70.61 Rebecca Chanell Castillo presents [...] + + | Performing | Address | City/State/[facility] | Phone Number | | Organization | | | | + + + + + | [facility] | [address] | [place] | [phone] | | [facility] | | [address] | | | - IMAGING | | [...]
--- OUTSIDE RECORDS SUMMARY | ~2019-10-18 | XMS | Encounter Summary ---
Demographics + + + | Address | [address] | | | [place] [address] | + + + | Home Phone | | + + + | Preferred Language | Unknown | + + + | Marital Status | | + + + | Restoration Affiliation | Unknown | + + + | Race | White | + + + | Ethnic Group | Not or | + + + Author + + + | Author | [facility] | + + + | Organization | [facility] | + + + | Address | Unknown | + + + | Phone | Unavailable | + + + Support + + + + + | Name | Relationship | Address | Phone | + + + + + | Geoffrey Castillo | RENAE | [place] | | + + + + + Care Team Providers + +------+ + | Care Meter/Relay Craftsman Name | Role | Phone | + [...] as of this encounter Progress Notes Interface, Buying Agent In - 07/17/2006 3:06 AM PDTCLINIC DATE: [...] surgery. Jayson Mccoy M.D. SHAJI / CHARY [id number] / [id number] / [id number] / [id number] signed by Interface, Buying Agent In at 07/17/2006 3:06 AM PDTdocume nted in this encounter Plan of Treatment Not on filedocumented as of this encounter Visit Diagnoses Not on filedocumented in this encounter"
--- OUTSIDE RECORDS SUMMARY | ~2019-10-18 | XMS | Encounter Summary ---
Demographics + + + | Address | [address] | | | [place] [address] | + + + | Home Phone | | + + + | Preferred Language | Unknown | + + + | Marital Status | | + + + | Latter Day Affiliation | Unknown | + + + [...] Team Providers + +------+ + | Care Burn Center Nurse Name | Role | Phone | + [...] as of this encounter Progress Notes Interface, Retail Interior Designer In - 05/15/2006 1:04 AM PDTCLINIC DATE: [...] bypass. Indra Ramos M.D. CD / HS [id number] / [id number] / [id number] / cc: Jesus Mijares M.D. [address] [place] [address] Geoffrey Castro M.D. [address] [place], [place] [id number] signed by Interface, Retail Interior Designer In at 05/15/2006 1:0 4 AM PDTdocumented in this encounter Plan of Treatment Not on filedocumented as of this encounter Visit Diagnoses Not on filedocumented in this encounter"
--- OUTSIDE RECORDS SUMMARY | ~2019-10-18 | XMS | Encounter Summary ---
Demographics + + + | Address | [address] | | | [place] [address] | + + + | Home Phone [...] Team Providers + +------+ + | Care Electron Beam Welder Setter Name | Role | Phone | [...] + + | 08/27/ | Procedure | [facility] | January, | Cardiac pacemaker in | | 2019 | visit | CARDIOLOGY [place] | [address] | situ (Primary Dx) | | | | [address] | [address] [place], | | | | | [place], [place] | [place] [address] | | | | | [address] | [phone] | | | | | [phone] | | | +--------+ + + + [...] | | | | | | [place] [address] | | | | | | [phone] | | | | | | | [...]
--- OUTSIDE RECORDS SUMMARY | ~2019-10-18 | XMS | Encounter Summary ---
Demographics + + + | Address | [address] | | | [place] [address] | + + + | Home Phone [...] Providers + +------+ + | Care Hot Plate Press Operator Name | Role | Phone | + +------+ + | Jesus Mijares MD | PCP | | + +------+ + Encounter Details +--------+ + + + + | Date | Type | Department | Care Team | Description | +--------+ + + + + | 06/12/ | Orders Only | [facility] | Veto Neri, | | | 2017 | | NEPRHOLOGY [place] | JAVA SQL DEVELOPER [address] | | | | | [address] | [facility] | | | | | [address] [place], [place] | [place] | | | | | [address] | [address] | | | | | [phone] | [phone] | | | | | | | [...] | | | | | | [place] [address] | | | | | | [phone] | | | | | | | [...]
--- OUTSIDE RECORDS SUMMARY | ~2019-10-18 | XMS | Encounter Summary ---
Demographics + + + | Address | [address] | | | [place] [address] | + + + | Home Phone [...] Providers + +------+ + | Care Search Advertising Strategist Name | Role | Phone | [...] | | | Christiano, | [address] | | | | | Trochanteric | Sheryl, | [place], | | | | | bursitis of | PA-C [address] | [place] | | | | | right hip | [address] | [address] | | | | | Procedures | [place] | Phone: | | | | | [place] | [address] | [phone] | | | | | and/or Inj | Phone: | Fax: | | | | | Major Joint | [phone] | [phone] | | | | | Right | Fax: | | | | | | | [phone] | | +--------+--------+ + + + + Reason for Visit + + + | Reason | Comments | + + + | Back Pain | low back pain radiating into right leg | + + + Encounter Details +--------+---------+ + + + | Date | Type | Department | Care Team | Description | +--------+---------+ + + + | 02/06/ | Office | [facility] | Christiano, | Lumbar radiculopathy | | 2017 | Visit | PHYSIATRY [address] | [address]AL[address] Saucedo [address] | (Primary Dx); | | | | [place], | [facility], | Spinal stenosis [place] | | | | [place] [address] | [place] [address] | lumbar region | | | | [phone] | without neurogenic | | | | [...] of the procedure you must provide a hi lo driver to take you home. For all [...] This is rarely needed. Date Last Reviewed: 06/24/201519995981-0811 [employer]. [address] [place] [address], [place] [address]. All righ ts reserved. This information is [...] in [address] Yong Pena in [place], use of hydrocodone 3 x/day and flexeril, [...] no apparent deficits with short or intermodal dispatcher memory. 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 Unfortunately she continue s to have [...] | | | | | | [place] [address] | | | | | | [phone] | | | | | | | [...] + + | Performing | Address | City/State/[facility] | Phone Number | | [...] and | | | Trochanteric Bursitis Rebecca Castlilo presents to the fluoroscopy | | | [...]
--- OUTSIDE RECORDS SUMMARY | ~2019-10-18 | XMS | Encounter Summary ---
Demographics + + + | Address | [address] | | | [place] [address] | + + + | Home Phone [...] Team Providers + +------+ + | Care Rheologist Name | Role | Phone | + [...] | Lumbar | [place], | [address] | | | | | radiculopath | Nilson Jensen MD | [place], | | | | | y | [address] | [place] | | | | | Procedures | [place] | [address] | | | | | [place] INJECT | [place], [place] | Phone: | | | | | ANES/STEROID | [address] | [phone] | | | | | FORAMEN | Phone: | Fax: | | | | | LUMBAR/SACRA | [phone] | [phone] | | | | | [address] IMG | Fax: | | | | | | GUIDE ,1 | [phone] | | | | | | LEVEL CA | | | | | | | [...] + + | 05/01/ | Hospital | [facility] | Annikalisaluis, | Chronic bilateral | | 2018 | Encounter | MED CTR XRAY [address] | G[address]AL[address] Saucedo [address] | low back pain with | | | | [place] | [facility], | sciatica, sciatica | | | | [place] [address] | [place] [address] | laterality | | | | [phone] | unspecified; | | | | | | 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
--- OUTSIDE RECORDS SUMMARY | ~2019-10-18 | XMS | Encounter Summary ---
Demographics + + + | Address | [address] | | | [place] [address] | + + + | Home Phone [...] Team Providers + +------+ + | Care Concession Cashier Name | Role | Phone | + +------+ + | Jesus Mijares MD | PCP | | + +------+ + Encounter Details +--------+ + + + + | Date | Type | Department | Care Team | Description | +--------+ + + + + | 12/05/ | Orders Only | [facility] | Veto Neri, | | | 2018 | | NEPHROLOGY [place] | GILL BOX FIXER [address] | | | | | [address] | [address] | | | | | [address] [place], [place] | [place], [place] | | | | | [address] | [address] | | | | | [phone] | [phone] | | | | | | | [...] | | | | | | [place] [address] | | | | | | [phone] | | | | | | | [...] | | | LAB | | | [facility] | | | | | + +---------+ [...]
--- OUTSIDE RECORDS SUMMARY | ~2019-10-18 | XMS | Encounter Summary ---
Demographics + + + | Address | [address] | | | [place] [address] | + + + | Home Phone [...] Providers + +------+ + | Care Medical Records Supervisor Name | Role | Phone | [...] + + | 06/09/ | Telephone | [facility] | Nilson Chaudhry | Other (Referral to | | 2012 | | PHYSIATRY [address] | T, [address] | Dr. mouna moore) | | | | [place], | [place], [place] | | | | | [place] [address] | [address] | | | | | [phone] | | | +--------+ + + + [...] | | | | | | [place] [address] | | | | | | [phone] | | | | | | | [...]
--- OUTSIDE RECORDS SUMMARY | ~2019-10-18 | XMS | Encounter Summary ---
Demographics + + + | Address | [address] | | | [place] [address] | + + + | Home Phone [...] Providers + +------+ + | Care Supervisor Component Assembler Name | Role | Phone | + +------+ + | Jesus Mijares MD | PCP | | + +------+ + Reason for Visit + + + | Reason | Comments | + + + | Back Pain | Post injection follow up | + + + Encounter Details +--------+---------+ + + + | Date | Type | Department | Care Team | Description | +--------+---------+ + + + | 09/07/ | Office | [facility] | Nilson Chaudhry | Chronic back pain | | 2013 | Visit | PHYSIATRY [address] | [address] | (Primary Dx); | | | | [place], | [place], [place] | DEGENERATIVE DISC | | | | [place] [address] | [address] | DISEASE, LUMBAR | | | | [phone] | | SPINE; Spinal | | | | | | stenosis of lumbar | | | | | | region - L3/L4, | | | | | | adjacent segment | | | | | | disease; Lumbar | | | | | | radiculopathy; | | | | | | Lumbar scoliosis; | | | | | | Facet arthritis of | | | | | | lumbar region; | | | | | | DIABETES WITH | | | | | | PERIPHERAL | | | | | | NEUROPATHY; Obesity; | | | | | | SACROILIITIS | +--------+---------+ + + + Social History [...] + + + | Blood Pressure | 134/74 | 09/07/2014 11:08 AM | | | | | PST | | + + + + + | Pulse | 62 | 09/07/2014 11:08 AM | | | | | PST [...] Weight | 93 kg (205 lb) | 09/07/2014 11:08 AM | | | | | PST | | + + + + + | Height | 162.6 cm (5' 4") | 09/07/2014 11:08 AM | | | | | PST | | + + + + + | Body Mass Index | 35.19 | 09/07/2014 11:08 AM | | | | | PST | | + + + + + documented in this encounter Progress Nilson Montanez MD - 09/07/2014 11:08 AM PST CHIEF COMPLAINT: Chief Complaint Patient presents with Back Pain Post injection follow up HISTORY OF PRESENT ILLNESS: The patient is a 74 y.o. female being seen today in follow-up for complaints of low back pa in. The patient has been seen for this complaint in the past. The patient had a recent bi lateral L4-L5 epidural steroid injection which was performed by me on 08/19/2014. The patient notes a lot of improvement from this injection until just a few nights ago when she had a f all. The patient still notes at least 50% improvement today. She previously received bilater al SI joint injections. This was performed by me on 07/19/2014. She reports no improvement with the SI joint injections. He is also here to review lumbar MRI results. She had a lumba r fusion performed 1 year ago and reports 50% improvement with this injection. She reports constant dull aching and occasional sharp pains to the low back depending on [...] L4/L5 performed by Dr. Yong Pena in [place], use of hydrocodone 3x/day and flexeril. Patient's [...] tablet Take 250 mcg by mouth Daily. gabapentin (NEURONTIN) 300 mg capsule Take 1 pill at night x 4 days, then increase to 2 pills at night x 4 days, then increase to 3 pills at night thereafter. If you are tolerati ng well, start morning dose: 1 pill in AM, 3 pills at night, after 4 days increase to 2 pill s in AM, 3 pills at night x 4 days, then 3 pills in AM and 3 pills in PM. Goal is to get to 300mg BID. 120 capsule 0 glimepiride (AMARYL) 4 mg tablet Take 4 [...] No abnormal bleeding PHYSICAL EXAMINATION: Filed Vitals: 09/07/14 1108 BP: 134/74 Pulse: 62 PainSc: 6 Body mass index is 35.17 kg/(m^2). GENERAL: [...] and without palpable masses. The patient is obes e. NEUROLOGIC: The patient is awake, alert, and oriented to time, place, person. She follows simple and complex commands. Her speech is fluent. She comprehends speech well. She has no apparent deficits with short or exterminator termite memory. She has appropriate fund of knowledge Cranial nerves 2-12 appear grossly intact. Sensory exam does not show diminished sensation to light touch in the lower extremities. REFLEX: RIGHT LEFT PATELLAR 0 trace ACHILLES 0 0 MUSCULOSKELETAL There is no [...] e majority of the pain to the posterior pelvis near the SI joints on the right. Lumbar face t loading was hard to access as the patient could barely stand up straight. Strength testin g showed 5/5 strength throughout the lower extremities. The patient was able to heel and to e walk without difficulty. There was no redness, effusion, warmth or joint line tenderness in the knees or ankles. RADIOGRAPHIC REVIEW: MRI was reviewed with the patient, the most recent MRI shows lumbar spinal stenosis at the L3/L4 level which is above the level of fusion, she has lumbar scoliosis, multi-level forami nal stenosis and multi-level facet arthritis. ASSESSMENT: 1. Chronic back pain 2. DEGENERATIVE DISC DISEASE, LUMBAR SPINE 3. Spinal stenosis of lumbar region - L3/L4, adjacent segment disease 4. Lumbar radiculopathy 5. Lumbar scoliosis 6. Facet arthritis of lumbar region 7. DIABETES WITH PERIPHERAL NEUROPATHY 8. Obesity 9. SACROILIITIS PLAN: 1. The patient is doing well as of now. I would not offer any additional injections at thi s time. She was advised to call our office when the pain flares back up at which time we ca n discuss potentially repeat the epidural injections. 2. I did not make any changes in her medications today. She has medications available fo r pain already. 3. The patient does understand the potential side effects of chronic corticosteroids and w e will try to keep the injections to a minimum. ELECTRONICALLY EDITED AND SIGNED BY: Nilson Chaudhry MD Scribed by: Mariana Russo MA for Dr. Nilson Chaudhry on 09/07/2014 documented in this encounter Plan of Treatment [...] | | | | | | [place] [address] | | | | | | [phone] | | | | | | | | +--------+ + + + + | 12/23/ | Procedure | Cardiology | | | | 2019 | visit | | | | +--------+ + + + + | 03/24/ | Procedure | Cardiology | | | | 2019 | visit | | | | +--------+ + + + + | /10/ | Procedure | Cardiology | | | | 2020 | visit | | | | +--------+ + + + + documented as of this encounter Visit Diagnoses + + | Diagnosis | + + | Chronic back pain - Primary Backache, unspecified | + + | DEGENERATIVE DISC DISEASE, LUMBAR SPINE Degeneration of lumbar or lumbosacral | | intervertebral disc | + + | Spinal stenosis of lumbar region - L3/L4, adjacent segment disease Spinal stenosis, | | lumbar region, without neurogenic claudication | + + | Lumbar radiculopathy Thoracic or lumbosacral neuritis or radiculitis, unspecified | + + | Lumbar scoliosis Scoliosis (and kyphoscoliosis), idiopathic | + + | Facet arthritis of lumbar region Lumbosacral spondylosis without myelopathy | + + | DIABETES WITH PERIPHERAL NEUROPATHY Type II or unspecified type diabetes mellitus | | with neurological manifestations, not stated as uncontrolled | + + | Obesity Obesity, unspecified | + + | SACROILIITIS Sacroiliitis, not elsewhere classified | + + documented in this encounter
--- OUTSIDE RECORDS SUMMARY | ~2019-10-18 | XMS | Encounter Summary ---
Demographics + + + | Address | [address] | | | [place] [address] | + + + | Home Phone [...] Team Providers + +------+ + | Care Tank Setter Helper Name | Role | Phone | [...] | | | [place], | [address] | | | | | Trochanteric | Nilson Jensen MD | [place], | | | | | bursitis of | [address] | [place] | | | | | right hip | [place] | [address] | | | | | Procedures | [place], [place] | Phone: | | | | | [place] | [address] | [phone] | | | | | Joint | Phone: | Fax: | | | | | Injection | [phone] | [phone] | | | | | Right | Fax: | | | | | | | [phone] | | +--------+--------+ + + + + [...] | | | Bogdanowicz, | [address] | | | | | Trochanteric | Sheryl, | [place], | | | | | bursitis of | PA-C [address] | [place] | | | | | both hips | [address] | [address] | | | | | Procedures | [place], [place] | Phone: | | | | | [place] | [address] | [phone] | | | | | Joint | Phone: | Fax: | | | | | Injection | [phone] | [phone] | | | | | Left | Fax: | | | | | | | [phone] | | +--------+--------+ + + + + [...] | | | Bogdanowicz, | [address] | | | | | Trochanteric | Sheryl, | [place], | | | | | bursitis of | PA-C [address] | [place] | | | | | both hips | [address] | [address] | | | | | Procedures | [place], [place] | Phone: | | | | | [place] | [address] | [phone] | | | | | Joint | Phone: | Fax: | | | | | Injection | [phone] | [phone] | | | | | Left | Fax: | | | | | | | [phone] | | +--------+--------+ + + + + Encounter Details +--------+ + + + + | Date | Type | Department | Care Team | Description | +--------+ + + + + | 04/29/ | Hospital | [facility] | Sabrinacz, | Trochanteric | | 2017 | Encounter | MED CTR XRAY [address] | GAMAL[address]EL Saucedo [address] | bursitis of both | | | | [place] | [address] [place], | hips; Trochanteric | | | | [place] [address] | [place] [address] | bursitis of right | | | | [phone] | [phone] | hip | | | | | [...] | | | | | | [place] [address] | | | | | | [phone] | | | | | | | [...] | [address] | [place] | [phone] | | [facility] | | [address] | | | - IMAGING | | | | + + + + + [place] Major Joint Injection Left (04/29/2017 1:37 PM PDT) + + | Specimen | + + | | + + + + ---+ | Narrative | Performed At | + + ---+ | | [facility] | | 04/29/2017 Bilateral Transforaminal Epidural Steroid Injections and | [facility] | | Bilateral Trochanteric Bursa Injections Diagnosis: [...] [address] | [address] | [phone] | | [facility] | | [address] | | | - IMAGING | | [...]
--- OUTSIDE RECORDS SUMMARY | ~2019-10-18 | XMS | Encounter Summary ---
Demographics + + + | Address | [address] | | | [place] [address] | + + + | Home Phone [...] Team Providers + +------+ + | Care Internal Sales Name | Role | Phone | [...] Thoracic or | [place], | [address] | | | | | lumbosacral | Nilson Jensen MD | [place], | | | | | neuritis or | [address] | [place] | | | | | | [address] [place] | [address] | | | | | radiculitis, | [place], [place] | Phone: | | | | | unspecified | [address] | [phone] | | | | | Procedures | Phone: | Fax: | | | | | [place] INJECT | [phone] | [phone] | | | | | ANES/STEROID | Fax: | | | | | | FORAMEN | [phone] | | | | | | LUMBAR/SACRA [...] + + | 08/19/ | Hospital | [facility] | [place], | Lumbar | | 2013 | Encounter | MED CTR XRAY [address] | GAMALIEL Saucedo [address] | radiculopathy; | | | | [address] [place] | [facility], | Spinal stenosis of | | | | [place] [address] | [place] [address] | lumbar region - | | | | [phone] | [phone] | L3/L4, 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 | | | | | [employer] 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 | [address] | [place], [place] | [phone] | | [facility] | | [address] | | | - IMAGING | | [...] 3:00 | | | | | ONCE, [facility] 08/19/14 at 1500, For 1 | | PM PST | | | | | dose | | | | | | + +-------+ +-------+---+---+ +---+---+ | | | +---+---+ documented in this encounter"
--- OUTSIDE RECORDS SUMMARY | ~2019-10-18 | XMS | Encounter Summary ---
Demographics + + + | Address | [address] | | | [place] [address] | + + + | Home Phone | | + + + | Preferred Language | Unknown | + + + | Marital Status | | + + + | Scientologist Affiliation | 1027 | + + + | Race | Unknown | + + + | Ethnic Group | Unknown | + + + Author + + + | Author | [facility] | | | and [place] | + + + | Organization | [facility] | | [...] Providers + +------+ + | Care Furnace Keeper Name | Role | Phone | + +------+ + | Jesus Mijares MD | PCP | | + +------+ + Encounter Details +--------+ + + + + | Date | Type | Department | Care Team | Description | +--------+ + + + + | 03/14/ | Orders Only | [facility] | Conversion | | | 2016 | | NEPRHOLOGY [place] | Transaction, | | | | | [address] | Provider Unknown | | | | | [address] [place], [place] | [phone] | | | | | [address] | | | | | | [phone] | | | +--------+ + + + [...] | | | | | | [place] [address] | | | | | | [phone] | | | | | | | [...] - 1.030 | EXTERNAL | | | [place] | | | LAB | | + [...] | | | LAB | | | [facility] | | | | | + +---------+ [...]
--- OUTSIDE RECORDS SUMMARY | ~2019-10-18 | XMS | Encounter Summary ---
Demographics + + + | Address | [address] | | | [place] [address] | + + + | Home Phone [...] Team Providers + +------+ + | Care Comparator Operator Name | Role | Phone | [...] | Medical Question | | | | [place], | [address] [place], | | | | | [place] [address] | [place] [address] | | | | | [phone] | [phone] | | | | | | | [...] | | | | | | [place] [address] | | | | | | [phone] | | | | | | | [...]
--- OUTSIDE RECORDS SUMMARY | ~2019-10-18 | XMS | Encounter Summary ---
Demographics + + + | Address | [address] | | | [place] [address] | + + + | Home Phone [...] Team Providers + +------+ + | Care Bailer Tenders Supervisor Name | Role | Phone | + +------+ + | Jesus Mijares MD | PCP | | + +------+ + Encounter Details +--------+ + + + + | Date | Type | Department | Care Team | Description | +--------+ + + + + | 08/07/ | Hospital | [facility] | Yong Pena | | | 2012 - | Encounter | SOFIA [place]STROLSY | MD [address] | | | | | [address] | [address] | | | 08/10/ | | [place], [place] | [place] [address] | | | 2012 | | [address] | [phone] | | | | | [phone] | | | +--------+ + + + [...] Summaries by Manasa Ortega ARNP at 08/10/13 8899 Author: Manasa Ortega ARNP Service: (none) Author Type: Nurse Practitioner Filed: 08/10/13 7541 Date of Service: 08/10/131252 Status: Signed Reports Analysis Manager: Manasa Ortega ARNP (Nurse Practitioner) Cosigner: Yong [...] 73 year old female who presented to [facility] on 08/07/2013 for a L4-5 interbody fusion with cage placement, L4-5 posterior fusion with segmental instrumentat ion, and L4, L5 laminectomy with lateral recess decompression. Post-operatively, the patien conchis was transferred to for continued monitoring. She did well overnight with pain initiall y managed with a CONSULTING NURSE, but was weaned to an oral pain [...] As tolerated Instructions/Follow-up: Discharge Instructions 1. Call [facility] office with any questions or concerns at [phone] (RN line ). 2. Sutures should come out post operative day [address] Pena's preference you re turn to his clinic for their removal. Please call [phone] to schedule appointment to h ave these removed. If your incision is closed with steri-strips, [facility]. If they remain [...] of infection, call the Nurse line at [phone]. 6. Follow up with your primary care physician as needed or as per next scheduled appointmen t. 7. Follow up at Dr. Pena's office in 6 weeks. Call to schedule appointment at . Imaging studies will be obtained at follow up. 8. For after hours emergencies, contact: soni Wilkerson [phone] robert Daniels [phone] Activity & Medications 1. Your activity will [...] Concerns please call your Physicians Office at: [phone] Preventing Infection As you recover from surgery we want you to heal and recover without added worry or problems . You may have heard of, or know someone, who had [facility] and [facility]. These infections [...] Erica OrtegaNICOLLE 08/10/2013, 12:53 Administrative Data: CPT [id number]-vijsbft than 30 min (Time spent: 55) CC: [...] 08/10/1358 Date of Service: 08/10/13853 Status: Signed Reports Analysis Manager: Priscila Praod PT (Physical Therapist) PHYSICAL THERAPY INTERVENTION/DAILY NOTE: [...] 08/10/1351 Date of Service: 08/10/13648 Status: Signed Reports Analysis Manager: Lakesha Melendez (Registered Nurse) NSG Progress Note Brief Patient: Rebecca Castillo Discharge orders received. Scripts faxed to outpatient [facility] pharmacy to be p icked [...] 0816 Date of Service: 08/10/13449 Status: Signed Reports Analysis Manager: Manasa Ortega ARNP (Nurse Practitioner) Neurosurgery Progress [...] -- CL 99 CLPOC -- HCO3 -- [id number] -- BUN 16 BUNPOC -- CR 0.97 GLUC 227* GLUCPOC -- No results found for this basename: INR,PT,PTT in the last 9480 hoursNo results found for t his basename: DPHTOTAL in the last 9480 hours Assessment/Plan: 1. S/P L4-5 posterolateral fusion, L4-5 posterior segmental instrumentation with the [employer] r Edda instrumentation system, L4-5 laminectomy with lateral recess decompression, L4-5 inter body fusion, and L4-5 interbody cage. - Dressing changed - PT/OT while inpatient - OOB with meals & Ambulate TID - Continue bowel medications - Push IS - 10x hourly while awake 2. Pain - Continue current oral regimen with scheduled Leigh and oxycodone for breakthrough 3. DVT prophylaxis [...] 0537 Date of Service: 08/10/13337 Status: Signed Reports Analysis Manager: Lakesha Melendez (Registered Nurse) [facility] Progress Note Brief Patient: Rebecca Castillo Alert [...] one dose to f juanjod at the [facility] if possible. Will endorse to day shift RN. Lakesha Melendez, 08/10/2013 5:37 AM Mary Gambino RN - 08/09/2013 6:07 PM PDT Progress Notes by Mary Stiles RN at 08/09/131806 Author: Mary Stiles RN Service: (none) Author Type: Registered Nurse Filed: 08/09/13 1950 Date of Service: 08/09/131806 Status: Signed Reports Analysis Manager: Mary Stiles RN (Registered Nurse) [facility] Progress Note Brief Patient: Rebecca Castillo Pt [...] Rosie Terrazas LICSW Service: (none) Author Type: Acquisition Manager Filed: 08/09/13 1320 Date of Service: 08/09/13 1232 Status: Signed Reports Analysis Manager: Rosie Terrazas LICSW (Acquisition Manager) Case Management Discharge Planning Assessment 12:32; 08/09/2013 Patient Rebecca Castillo is a 73 y.o. female admitted for Acquired spondylolisthesis [738.4] (Acquired spondylolisthesis ) Discussion: DESIGN INTERN reviewed current and historical charts. DESIGN INTERN met with patient and patient's spouse Bill at bedside. Patient alert and engaged, sitting up in bedside chair. Patient r eports she and her spouse reside in [place], reports daughter and grandchild also live in the home. Patient reports at discharge the plan is to return to [place]. Patient reports prior to admission received assistance from family with activities of daily living. Patient repor ts she uses a 4WW. Patient's reports he has been staying at the [facility] and is waiting to hear if [...] other needs/concerns at this time however understands DESIGN INTERN remains available as needed. Discharge Planning Options Home Plan: TBD: Likely Home Resources/Education provided: DESIGN INTERN introduced role and how to access DESIGN INTERN/CM during hospital visit. Interventions: Case Mgmt Team Interventions: Care coordination;Chart review/screening;Consult with [facility] are team;D/C planning initial assessment Diagnosis: [...] Modified Independent DME and/or supplies at residence COSTUME TECHNICIAN: Cane or walker (comment) (4WW) PCP: Confirmed with patient/commissary representative Jesus Mijares Principle Payors: Confirmed with patient/commissary representative Payor: MEDICARE Plan: MEDICARE PART A AND B Product Type: *No Product type* Primary Contact Information: Extended Emergency Contact Information Primary Emergency Contact: Oniel Castillo Address: [address] [place] [address] [place] Relation: Spouse Secondary Emergency Contact: Selby,[facility] Mobile Relation: Daughter Patient is being followed by Case Management APRIL Edouard, LSWAIC de Nya Kwan ARNP - 08/09/2013 11:05 AM PDTFormatting of this note might be different from th e original. Progress Notes by Nya Gauthier ARNP at 08/09/131104 Author: Nya Gauthier ARNP Service: (none) Author Type: Nurse Practitioner Filed: 08/09/13 1112 Date of Service: 08/09/131104 Status: Signed Reports Analysis Manager: Nya Gauthier ARNP (Nurse Practitioner) NSR Progress Note ID: Rebecca Castillo; 73 y.o. female [facility] Yong Pena MD Hospital Day # [...] -- CL 99 CLPOC -- HCO3 -- [id number] -- BUN 16 BUNPOC -- CR 0.97 [...] senna, suppository prn Pain management: weaned off CONSULTING NURSE. Scheduled Leigh. Oxycodone and Flexeril PRN 2. Drain with 35/24hours. Removed without complication. 3. Labs stable. 4. DM: Diabetic diet Resume 1/2 dose of glargine today and full dose tomorrow. Resume glimepiride today and metformin as an outpatient. Cont SSI. 5. Disposition: home tomorrow after further progress with therapies. NICOLLE Hernandez 08/09/2013 11:05 7AM to 7PM reach me via [employer] 7PM to 7AM covered via [facility] Textile Cutting Machine Operator/Nsg Fellow Lakesha Shipman RN - 08/09/2013 4:01 AM PDTFormatting of this note might be different from the andres ginal. Progress Notes by Lakesha Melendez at 08/09/13400 Author: Lakesha Melendez Service: (none) Author Type: Registered Nurse Filed: 08/09/13 0551 Date of Service: 08/09/13400 Status: Signed Reports Analysis Manager: Lakesha Melendez (Registered Nurse) [facility] Progress Note [...] her walker from home. Will continue to [facility]. Lakesha Melendez, 08/09/2013 5:51 AM Mary Gambino RN - 08/08/2013 4:48 PM PDT Progress Notes by Mary Stiles RN at 08/08/131647 Author: Mary Stiles RN Service: (none) Author Type: Registered Nurse Filed: 08/08/131928 Date of Service: 08/08/131647 Status: Signed Reports Analysis Manager: Mary Stiles RN (Registered Nurse) [facility] Progress Note Brief Patient: Rebecca Castillo Pt neuro stable this shift; continued baseline tremors in hands and transient numbness/ting ling in BLE. IV infiltration of vanco, infusion stopped, ASPHALT DISTRIBUTOR TENDER notified, wydase administered , ice packs every [...] the orig inal. Progress Notes by Nya Gauhtier ARNP at 08/08/13 113 Author: Nya Gauthier ARNP Service: (none) Author Type: Nurse Practitioner Filed: 08/08/13 2148 Date of Service: 08/08/131136 Status: Addendum Reports Analysis Manager: Nya Gauthier ARNP (Nurse Practitioner) Related Notes: Original Note by Nya Gauthier ARNP (Nurse Practitioner) filed at 08/08 1504 NSR Progress Note ID: Rebecca Castillo; 73 y.o. female [facility]ending Yong Pena MD Hospital Day # [...] morning. Moderate pain control - weaned off CONSULTING NURSE. Specificall y denies shortness of breath, chest [...] -- CL -- CLPOC -- HCO3 -- [id number] -- BUN -- BUNPOC -- CR 1.07* [...] out, monitor PVRs Pain management: weaned off CONSULTING NURSE. Scheduled Leigh. Oxycodone and Flexeril PRN 2. Drain with 150cc overnight. Remove tomorrow. 3. Check labs: BMP, CBC 4. DM: Diabetic diet Hold glargine and oral hypoglycemics. Well controlled on SSI 5. Disposition: ELOS 2-3d NICOLLE Hernandez 08/08/2013 11:37 7AM to 7PM reach me via [employer] 7PM to 7AM covered via [facility] Textile Cutting Machine Operator/Nsg Fellow Patient (Rebecca Castillo) meets inpatient level [...] Date of Service: 08/08/13 1017 Status: Signed Reports Analysis Manager: Alyson Coto OT (Occupational Therapist) OCCUPATIONAL THERAPY EVALUATION Duration of Session Time In:944 Time Out: 102 PATIENT PROFILE Diagnosis: Acquired spondylolisthesis [738.4] (Acquired spondylolisthesis ) Surgery/Procedure: Procedure(s) with comments: FUSION SPINE LUMBAR POSTERIOR - 47153/66555/61030/81545 L4-5 POSTERIOR FUSION W/ JENNIFER XI A 4.5mm & AVS Unilif PEEK Cage, (Prone on WENDY, SSEP/MEP/EMG MONITORING, C-ARM) Surgery Date: 08/07 Precautions: Cleared for OOB: Yes Spinal Surgery Precautions: General spine surgery SOCIAL HISTORY Living Environment: Lives in [facility] in [place] with 2 steps to enter with h usband , daughter and grandson who are all available to assist as needed Prior Level of Functioning: pt with Modified [place] in own self care but unable to [...] (none) Author Type: Registered Nurse Filed: 08/08/13 6440 Date of Service: 10/26/13 0756 Status: Signed Reports Analysis Manager: Natacha Bob RN (Registered Nurse) Problem: PAIN - ADULT Goal: Verbalizes/displays adequate comfort level or baseline comfort level Outcome: PROGRESSING EXPECTED Off CONSULTING NURSE Dilaudidn, used total of 1.4 mg. Adequate pain relief with scheduled Leigh and PRN oxycodone. Problem: NEUROSENSORY - ADULT [...] 08/07/131950 Date of Service: 08/07/131937 Status: Signed Reports Analysis Manager: Parviz Plata RN (Registered Nurse) NSG Arrival [...] t this time- instructed on use of CONSULTING NURSE(Dilaudid). Taking sips and chips. Denies nausea. Parviz Plata RN, 08/07/2013 7:38 PM [facility]ver [place] Transaction, Provider Unknown - 08/07/2013 5:35 PM PDT Progress Notes by Priscila Prado PT at 08/07/131734 Author: Priscila Prado PT Service: (none) Author Type: Physical Therapist Filed: 08/07/131742 Date of Service: 08/07/131734 Status: Signed Reports Analysis Manager: Priscila Prado PT (Physical Therapist) PHYSICAL THERAPY MED/SURG EVALUATION Duration of Session Time In: 1700 Time Out: 1730 PATIENT PROFILE Diagnosis: Acquired spondylolisthesis [738.4] (Acquired spondylolisthesis ) Surgery/Procedure: Procedure(s) with comments: FUSION SPINE LUMBAR POSTERIOR - 59979/64065/16815/90168 L4-5 POSTERIOR FUSION W/ JENNIFER XI A [...] 02/20 - pt indep with use of CONSULTING NURSE. Impairments/Functional Limitation: Post op day #0. Pt [...] for next visit: Assess gait, standing balance PT/COSTUME TECHNICIAN order assistive devices prn Risks and benefits [...] | | | | | | [place] [address] | | | | | | [phone] | | | | | | | [...]
--- OUTSIDE RECORDS SUMMARY | ~2019-10-18 | XMS | Encounter Summary ---
Demographics + + + | Address | [address] | | | [place] [address] | + + + | Home Phone [...] Team Providers + +------+ + | Care Locator Specialist Name | Role | Phone | + +------+ + | Jesus Mijares MD | PCP | | + +------+ + Encounter Details +--------+ + + + + | Date | Type | Department | Care Team | Description | +--------+ + + + + | 09/15/ | Hospital | [facility] | Yong Pena | S/P lumbar fusion | | 2012 - | Encounter | SOFIA CASTROLSY | MD [address] | | | | | [address] | [address] | | | 09/22/ | | [place], [place] | [place] [address] | | | 2012 | | [address] | [phone] | | | | | [phone] | | | +--------+ + + + [...] (none) Author Type: Nurse Practitioner Filed: 09/22/13 3213 Date of Service: 09/22/13 1320 Status: Signed Brim Cutter: Manasa Ortega ARNP (Nurse Practitioner) Cosigner: Yong Pena MD at 8018 Neurosurgery Discharge Summary Note Patient: Rebecca Castillo [...] 73 year old female who presented to [facility] on 09/15/2013 from [facility] for a superficial wound infection S/P lumbar fusion six weeks prior. She was taken to the OR on 09/16/2013 for exploration of the spinal fusion and placement of a wound vacuum. P ost-operatively, the patient was transferred to for continued monitoring. She did well o vernight with pain initially managed with a CLEAT BLANKER, but was weaned to an oral pain [...] As tolerated Instructions/Follow-up: Discharge Instructions 1. Call [facility] Neuroscience office with any questions or concerns at [phone] (RN line ). 2. Sutures should come out post operative day [address] Pena's preference you re turn to his clinic for their removal. Please call [phone] to schedule appointment to h ave these [...] of infection, call the Nurse line at [phone]. 6. Follow up with your primary care physician as needed or as per next scheduled appointmen t. 7. Follow up at Dr. Pena's office in 6 weeks. Call to schedule appointment at . Imaging studies will be obtained at follow up. 8. For after hours emergencies, contact: soni Wilkerson [phone] robert Daniels [phone] Activity & Medications 1. Your activity will [...] Concerns please call your Physicians Office at: [phone] Preventing Infection As you recover from surgery we want you to heal and recover without added worry or problems . You may have heard of, or know someone, who had surgery and later went back to the [facility] because of an infection. These infections [...] NICOLLE Gamble 09/22/2013, 13:20 Administrative Data: CPT [id number] than 30 min (Time spent: 50) CC: Jesus Mijares Electronically signed by Jeanmarie, Water Resources Business Segment Leader Conversion at 04/12/2019 9:59 PM PDTdocumentpaola romero in this encounter Medications at Time [...] (none) Author Type: Registered Nurse Filed: 09/22/13 1105 Date of Service: 09/22/131127 Status: Signed Brim Cutter: Patrica Amado RN (Registered Nurse) NSG Shift [...] 09/22/13641 Date of Service: 09/22/13640 Status: Signed Brim Cutter: Mary Stiles RN (Registered Nurse) NS Progress [...] RN, 09/22/2013 6:[address] AR ROLL BUCKER - 09/22/2013 6:32 AM PST Progress Notes by Manasa Ortega ARNP at 09/22/1332 Author: Manasa Ortega ARNP Service: (none) Author Type: Nurse Practitioner Filed: 09/22/13 0824 Date of Service: 09/22/13 0632 Status: Signed Brim Cutter: Manasa Ortega ARNP (Nurse Practitioner) Neurosurgery [...] 09/21/132315 Date of Service: 09/21/132312 Status: Signed Brim Cutter: Fabiana Cartwright RN (Registered Nurse) NS Arrival [...] call light to telephone and television to [facility] information to plan for the day Fabiana Cartwright RN, 09/21/2013 11:13 PM Fabiana Granados RN - 09/21/2013 7:58 PM PSTFormatting of this note might be different from the origina l. Progress Notes by Fabiana Cartwright RN at 09/21/131957 Author: Fabiana Cartwright RN Service: (none) Author Type: Registered Nurse Filed: 09/21/132003 Date of Service: 09/21/131957 Status: Signed Brim Cutter: Fabiana Cartwright RN (Registered Nurse) NS Progress [...] 09/21/131854 Date of Service: 09/21/131843 Status: Addendum Brim Cutter: Fabiana Cartwright RN (Registered Nurse) Related Notes: Original Note by Fabiana Cartwright RN (Registered Nurse) filed at 09/21 [facility] Progress Note Brief Patient: Rebecca Castillo Patient [...] 09/21/131812 Date of Service: 09/21/131807 Status: Signed Brim Cutter: Tim Alvarez MD (Physician) Infectious Diseases Progress [...] pansensitive Xray: None new Tim Alvarez MD [phone] onversion Transacti on, Provider Unknown - 09/21/2013 5:02 PM PSTFormatting of this note might be different fro m the original. Progress Notes by Mario Granados, RN at 09/21/13 170 Author: Mario Granados RN Service: (none) Author Type: Registered Nurse Filed: 09/21/13 171 Date of Service: 09/21/13 170 Status: Signed Brim Cutter: Mario Granados RN (Registered Nurse) NS Progress Note Brief Patient: Rebecca Castillo Pt has been NPO since after breakfast for a scheduled surgery this afternoon. A&Ox4, moves all extremities. No infection noted. Ambulating using a FWW. Pain controlled with [place]. Wo und Vac incact, Dressing CDI. BM this morning. Call light within reach, will continue to mon itor. Mario Granados RN, 09/21/2013 5:03 PM acobs on, APRIL Mclain - 09/21/2013 3:12 PM PSTFormatting of this note might be different from th e original. Progress Notes by Erica Abdul MSW at 09/21/13 1512 Author: Erica Abdul MSW Service: (none) Author Type: Raw Finish Mill Operator Filed: 09/21/13 1521 Date of Service: 09/21/13 1512 Status: Signed Brim Cutter: Erica Abdul MSW (Raw Finish Mill Operator) Case Management Progress Note 09/21/2013 15:13 Patient Rebecca Castillo is a 73 y.o. female s/p exploration of spinal fusion and placement of wound vacuum. Anticipated D/C Plan: Home with HH Current Clinical Needs: Wound vac (@ 125 mm Hg) closure scheduled for today, diabetes stacy blanco, PT/OT, discharge planning Discussion: Per VENEER PRESS OPERATOR, pt will be ready to discharge home tomorrow 09/22/13. CONSTRUCTION TRENCH DIGGER met with p t and at bedside to discuss HH RN. Pt and verbalize agreement. KITCHEN WORKER sent refe rral, [facility] accepted pt for admission. CONSTRUCTION TRENCH DIGGER provided information to pt, who verbalizes appreciation. Case Management Interventions: Case Mgmt Team Interventions: Chart review/screening;Consul t with healthcare team;D/C planning [facility] Turner of Choice offered: Yes Medicare Important Message given: Date Medicare IM provided: 09/21/13 Time Medicare IM provided: 1506 APRIL Peterson Electronically signed by Jeanmarie, Water Resources Business Segment Leader Conversion at 04/12/2019 9:42 PM PDTConversio n Transaction, Provider Unknown - 09/21/2013 11:15 AM PSTFormatting of this note might be di fferent from the original. Progress Notes by Reymundo Pagan at 09/21/131114 Author: Reymundo Pagan Service: (none) Author Type: Precision Assembly Inspector Filed: 09/21/13 1453 Date of Service: 09/21/131114 Status: Addendum Brim Cutter: Reymundo Pagan (Precision Assembly Inspector) Related Notes: Original Note by Reymundo Pagan (Precision Assembly Inspector) filed at 06/26 1447 Case Management Referral Note 09/21/2013 11:16 Patient Rebecca Castillo is a 73 y.o. female Type of Referral: Home Health Date referral sent: 09/21/2013 Estimated DC Date: TBD Patient's preferences: TBD Number of referrals sent: 1 Accepting Referral Responses as of 09/21/2013 Agency/Facility Name & Contact information: [facility] [phone], fax [phone] ----- Willing to ac cept patient Reymundo Joneseye Manasa Marks ARNP - 09/21/2013 6:34 AM PSTFormatting of this note might be different from th e original. Progress Notes by Manasa Ortega ARNP at 09/21/1334 Author: Manasa Ortega ARNP Service: (none) Author Type: Nurse Practitioner Filed: 09/21/13 0741 Date of Service: 09/21/13633 Status: Addendum Brim Cutter: Manasa Ortega ARNP (Nurse Practitioner) Related Notes: [...] (none) Author Type: Registered Nurse Filed: 09/20/13 2073 Date of Service: 09/20/132238 Status: Addendum Brim Cutter: Mary Lou Cherry RN (Registered Nurse) Related [...] Outcome: PROGRESSING EXPECTED Took Oxycodone, tylenol and Maple [place] during this shift for back pain. Pain [...] Date of Service: 09/20/13 1526 Status: Signed Brim Cutter: Nimisha Allen OT (Occupational Therapist) OCCUPATIONAL THERAPY [...] Date of Service: 09/20/13 111 Status: Signed Brim Cutter: Priscila Prado PT (Physical Therapist) PHYSICAL [...] 09/20/131106 Date of Service: 09/20/131105 Status: Signed Brim Cutter: Nimisha Allen OT (Occupational Therapist) Attempted to [...] 09/20/1351 Date of Service: 09/20/13948 Status: Signed Brim Cutter: Gerry Degroot MD (Physician) Plastic Surgery Continues [...] 09/20/13612 Date of Service: 09/20/13610 Status: Signed Brim Cutter: Brittney Richardson RN (Registered Nurse) Rebecca Castillo [...] 1040 Date of Service: 09/20/13603 Status: Signed Brim Cutter: Manasa Ortega ARNP (Nurse Practitioner) Neurosurgery Progress Note ID: Rebecca Castillo; 73 y.o. female [facility] Attending Yong Pena MD [...] that time for isolation - Appreciate Dr. Alvarez following with ID recommendations - isolation likely [...] (none) Author Type: Registered Nurse Filed: 09/19/13 6039 Date of Service: 09/19/13 1500 Status: Signed Brim Cutter: Andres Sarabia, RN (Registered Nurse) Pain control [...] 1018 Date of Service: 09/19/131014 Status: Signed Brim Cutter: Gerry Degroot MD (Physician) Plastic Surgery Skin [...] 1004 Date of Service: 09/19/13956 Status: Signed Brim Cutter: Nimisha Allen OT (Occupational Therapist) OCCUPATIONAL THERAPY [...] 09/19/13816 Date of Service: 09/19/13625 Status: Signed Brim Cutter: Manasa Ortega ARNP (Nurse Practitioner) Neurosurgery Progress Note ID: Rebecca Castillo; 73 y.o. female [facility] Attending Yong Pena MD [...] 93* CLPOC -- -- HCO3 -- -- [id number] -- -- BUN -- 48* BUNPOC -- [...] Continue antibiotics per NICOLLE Huang 06:26; 09/19/2013 Electronically signed by Jeanmarie, Water Resources Business Segment Leader Conversion at 04/12/2019 9:05 PM PDTConversio n Transaction, Provider Unknown - 09/19/2013 4:43 AM PSTFormatting of this note might be di fferent from the original. Progress Notes by Ana Cardozo RN at 09/19/13442 Author: Ana Cardozo RN Service: (none) Author Type: Registered Nurse Filed: 09/19/13513 Date of Service: 09/19/13442 Status: Signed Brim Cutter: Ana Cardozo RN (Registered Nurse) NS Progress Note Brief Patient: Rebecca Castillo VSS, neuro unchanged this shift. Mild weakness of BLE, chronic peripheral neuropathy. Incis ional pain well controlled with [place]. Wound vac with bloody-serosang drainage, dressing C/D [...] 09/18/132106 Date of Service: 09/18/132106 Status: Signed Brim Cutter: Lion Rizzo RN (Registered Nurse) Problem: CARDIOVASCULAR [...] 09/18/132104 Date of Service: 09/18/132104 Status: Signed Brim Cutter: Loin Rizzo RN (Registered Nurse) Problem: PAIN - [...] 09/18/131821 Date of Service: 09/18/131816 Status: Signed Brim Cutter: Tim Alvarez MD (Physician) Infectious Diseases Progress [...] for iv access in the hospital, not fdc iv antibiotics. Wound closure on Sat day [...] pending Xray: None new Tim Alvarez MD [phone] onversion Transacti on, Provider Unknown - 09/18/2013 2:49 PM PSTFormatting of this note might be different fro m the original. Progress Notes by Nimisha Allen OT at 09/18/13 1449 Author: Nimisha Allen OT Service: (none) Author Type: Occupational Therapist Filed: 09/18/13 2156 Date of Service: 09/18/131448 Status: Signed Brim Cutter: Nimisha Allen OT (Occupational Therapist) Attempted to see patient for occupational therapy on this date. Patient refused 2/2 eating lunch and plans to have PICC line placed soon after. Will follow up tomorrow. onver everett Transaction, Provider Unknown - 09/18/2013 2:27 PM PST Progress Notes by Arturo Roberto RD at 09/18/13 1427 Author: Arturo Roberto RD Service: (none) Author Type: Registered Dietitian Filed: 09/18/13 1526 Date of Service: 09/18/131426 Status: Signed Brim Cutter: Arturo Roberto RD (Registered Dietitian) Medical Nutrition [...] weig ht loss over last 2 weeks ore puncher d/t decreased appetite that pt associated with [...] Arturo Roberto, RD, 09/18/2013 3:24 PM Phone [phone] Pager [phone] for weekdays (7:30 am - 4:00 pm) Pager [phone] for weekends (7:00 am - 3:30 pm) hannon Escalante RN-CWOCN - 09/18/2013 1:57 PM PST Progress Notes by Shannon Escalante RN, JORDAN at 09/18/13 9469 Author: Shannon Escalante RN, CWCN Service: (none) Author Type: Wound/Ostomy Nurse Filed: 09/18/13 1408 Date of Service: 09/18/13 3051 Status: Signed Brim Cutter: Shannon Escalante RN, CWCN (Wound/Ostomy Nurse) WOUND [...] 0816 Date of Service: 09/18/13633 Status: Signed Brim Cutter: Manasa Ortega ARNP (Nurse Practitioner) Neurosurgery [...] 93* CLPOC -- -- HCO3 -- -- [id number] -- -- BUN -- 48* BUNPOC -- [...] - Continue antibiotics per Dr. Antonio Ortega VENEER PRESS OPERATOR 06:34; 09/18/2013 Electronically signed by Jeanmarie, Water Resources Business Segment Leader Conversion at 04/12/2019 8:31 PM PDTConversio n Transaction, Provider Unknown - 09/17/2013 5:12 PM PSTFormatting of this note might be di fferent from the original. Progress Notes by Prisclia Prado PT at 09/17/131711 Author: Priscila Prado PT Service: (none) Author Type: Physical Therapist Filed: 09/17/131718 Date of Service: 09/17/131711 Status: Signed Brim Cutter: Priscila Prado PT (Physical Therapist) PHYSICAL THERAPY MED/SURG RE-EVALUATION Duration of Session Time In: 1600 Time Out: 1630 PATIENT PROFILE Diagnosis: Post-traumatic seroma [729.91] (Post-traumatic seroma ) Seroma complicating a procedure [998.13] Surgery/Procedure: Procedure(s) with comments: I&D SPINE THORACIC/LUMBAR /SACRAL - 85703 L4-5 SPINAL FUSION EXPLORATION; No Removal of Taye dware (C-ARM Avail, PRONE on WENDY, WOUND VAC, ORTHOPEDIC PLUSE LAVAGE, 3 - 3 LITER BAGS) Surgery Date: 09/16/13 Precautions: Cleared for OOB: Yes Spinal Surgery Precautions: General spine surgery wound vac SOCIAL HISTORY Living Environment: Patient lives with in [place], [place] ([facility] available to provid e [...] Re-education, Bed Mobility, Gait, Home Exercise Program, Patient/outsole flexer Training, Transfers, Therapeutic Exercise Frequency: treat 1-2 [...] visit: Progressive gait, stairs and family training PT/RACKING MACHINE OPERATOR order assistive devices prn Risks and benefits of treatment reviewed with patient/family and they agree with plan of ca re: Yes Nya Salter [facility] - 09/17/2013 4:14 PM PSTFormatting of this note might be different from the or iginal. Progress Notes by Nya Bean RPh at 09/17/13 1614 Author: Nya Bean RPh Service: (none) Author Type: Pharmacist Filed: 09/17/13 1616 Date of Service: 09/17/13 1614 Status: Signed Brim Cutter: Nya Bean RPh (Pharmacist) Vancomycin dosing per [...] Date of Service: 09/17/13 1315 Status: Signed Brim Cutter: Shannon Escalante RN, CWCN (Wound/Ostomy Nurse) Wound [...] Date of Service: 09/17/13 1152 Status: Signed Brim Cutter: Nimisha Allen OT (Occupational Therapist) OCCUPATIONAL THERAPY RE-EVALUATION Duration of Session Time In: 11:25 Time Out: 11:50 PATIENT PROFILE Diagnosis: Post-traumatic seroma [729.91] (Post-traumatic seroma ) Seroma complicating a procedure [998.13] Surgery/Procedure: Procedure(s) with comments: I&D SPINE THORACIC/LUMBAR /SACRAL - 15712 L4-5 SPINAL FUSION EXPLORATION; No Removal of [...] 09/17/131125 Date of Service: 09/17/131125 Status: Signed Brim Cutter: Lion Rizzo RN (Registered Nurse) Problem: SKIN/TISSUE [...] wound culture shows no growth to date, CHIP MACHINE OPERATOR recommends PICC while on vancomycin IV, w ill inform ID physician tomorrow, new IV placed. onversion Trans action, Provider Unknown - 09/17/2013 11:18 AM PST Progress Notes by Zoë Valencia at 09/17/131117 Author: Zoë Valencia Service: (none) Author Type: Student Outreach Coordinator Filed: 09/17/13 1129 Date of Service: 09/17/131117 Status: Signed Brim Cutter: Zoë Valencia (Student Outreach Coordinator) Medical Nutrition Therapy BMI: 34.74, obese Positive [...] Notes by Kelly Hanson RN at 09/17/13 1041 Author: Kelly Hanson RN Service: (none) Author Type: Quarryman Filed: 09/17/13 1103 Date of Service: 09/17/13 1047 Status: Signed Brim Cutter: Kelly Hanson RN (Quarryman) Case Management Discharge Planning Assessment 10:50; 09/17/2013 Patient Rebecca Castillo is a 73 y.o. female Discussion: Reviewed chart and discussed patient in multidisciplinary rounds. I met with Mr radha Castillo to introduce myself and the role of case management. Mrs Castillo lives in [facility] with her and adult daughter who [...] mostly when she is out of the [facility] [place] [place]. She has safety accommodations in the bathroom, [...] 23. Her is staying here in the [facility]. Her will be her transportation upon discharge. [...] Modified Independent DME and/or supplies at residence RACKING MACHINE OPERATOR: Cane or walker (comment);Bedside commode/shower chair (comment) PCP: Per chart review Jesus Mijares Principle Payors: Per chart review Payor: MEDICARE Plan: MEDICARE PART A AND B Product Type: *No Product type* Primary Contact Information: Extended Emergency Contact Information Primary Emergency Contact: Oniel Castillo Address: [address] [address] [facility] [place] Relation: Spouse Secondary Emergency Contact: Debbie Selby [facility] [employer] Relation: Daughter Chart reviewed and Case Management to follow and assist with discharge planning and inpatie nt management as needed Nazia Hanson, RN, BSN Nurse Land Appraiser [facility] Pager [phone] oTim chicas MD - 09/17/2013 10:05 AM PSTFormatting of this note might be different from the o riginal. Progress Notes by Tim Alvarez MD at 09/17/13 1005 Author: Tim Alvarez MD Service: (none) Author Type: Physician Filed: 09/17/13 3491 Date of Service: 09/17/13 1005 Status: Signed Brim Cutter: Tim Alvarez MD (Physician) Infectious Diseases Progress [...] for iv access in the hospital, not meterman iv antibiotics. Wound closure on Saturday 4. [...] stain Xray: None new Tim Alvarez MD [phone] age, TAMAR Berry ROLL BUCKER - 09/17/2013 6:45 AM PST Progress Notes by Manasa Ortega ARNP at 09/17/1375 Author: Manasa Ortega ARNP Service: (none) Author Type: Nurse Practitioner Filed: 09/17/13 1100 Date of Service: 09/17/13644 Status: Addendum Brim Cutter: Manasa Ortega ARNP (Nurse Practitioner) Related Notes: [...] 93* CLPOC -- -- HCO3 -- -- AXO0FUL -- -- BUN -- 48* BUNPOC -- [...] hourly while awake 2. Pain - DC CLEAT BLANKER - Oral pain regimen only 3. MARTIN [...] - Continue antibiotics per Dr. Antonio Ortega [facility] 06:45; 09/17/2013 Brittani Harp RN - 09/17/2013 4:23 AM PSTFormatting of this note might be different from the or iginal. Progress Notes by Brittani Mckeon RN at 09/17/13422 Author: Brittani Mckeon RN Service: (none) Author Type: Registered Nurse Filed: 09/17/13 0529 Date of Service: 09/17/13422 Status: Signed Brim Cutter: Brittani Mckeon RN (Registered Nurse) [facility] Progress Note Brief Patient: Rebecca Lua Jonathan BLE 5/5. Wound vac continuous suction at 125 mmhg, bloody drainage. Output 50 ml over NOC shift. OOB with 1 PA and 4 wheeled walker. Incisional pain 6/10 when ambulating. Transit ioned to oral pain meds. Dilaudid CLEAT BLANKER weaned at 0500. Used 5.6 mg overnight. Voiding witho ut difficulty, PVR 89 and 44. Brittani Mckeon RN, 09/17/2013 5:27 AM Tim Fernandez M D - 09/16/2013 9:13 PM PST Progress Notes by Tim Alvarez MD at 09/16/132112 Author: Tim Alvarez MD Service: (none) Author Type: Physician Filed: 09/16/132115 Date of Service: 09/16/132112 Status: Signed Brim Cutter: Tim Alvarez MD (Physician) Infectious Diseases Progress Note Rebecca uLa Jonathan 09/16/2013, Hospital Day # 1 Patient [...] stain Xray: None new Tim Alvarez MD [phone] hMarizol martinez RN - 09/16/2013 5:15 PM PST Progress Notes by Marizol Munson RN at 09/16/131714 Author: Marizol Munson RN Service: (none) Author Type: Registered Nurse Filed: 09/16/131956 Date of Service: 09/16/131714 Status: Signed Brim Cutter: Marizol Munson RN (Registered Nurse) [facility] Arrival Note Patient: Rebecca Castillo Arrival time: [...] of last pain med: PACU. Started on CLEAT BLANKER Lines and drains: Wound vac Current IV: normal saline at 100cc/hr Current nursing problems: Mobility, pain control, postop care Patient orientation: to call light to telephone and television to general hospital information to plan for the day [facility] centralized monitoring initiated Marizol Munson RN, 09/16/2013 7:55 PM Kathleen Jean MS W - 09/16/2013 3:56 PM PST Progress Notes by Kathleen Eastman MSW at 09/16/13 3766 Author: Kathleen Eastman MSW Service: (none) Author Type: Raw Finish Mill Operator Filed: 09/16/13 7433 Date of Service: 09/16/13 1556 Status: Signed Brim Cutter: Kathleen Eastman MSW (Raw Finish Mill Operator) Case Management Discharge Planning Assessment 15:56; 09/16/2013 Patient Rebecca Castillo is a 73 y.o. female who lives in [facility] who is admitted for spinal fusion [...] Mgmt Team Interventions: Care coordination;Chart review/screening;Consult with [facility] are team;D/C planning initial assessment Diagnosis: Post-traumatic [...] spouse Current Providers/Agencies: Medicare A & B, [facility] Prior to admit, the patient was: Living at home with others Mobility prior to admit: Modified Independent DME and/or supplies at residence RACKING MACHINE OPERATOR: Cane or walker (comment);Bedside commode/shower chair (comment) PCP: Per chart review Jesus Mijares Principle Payors: Per chart review Payor: MEDICARE Plan: MEDICARE PART A AND B Product Type: *No Product type* Primary Contact Information: Extended Emergency Contact Information Primary Emergency Contact: Oniel Castillo Address: [address] [place] [address] [facility] [employer] Relation: Spouse Secondary Emergency Contact: Debbie Selby [facility] [employer] Relation: Daughter Patient is being followed by Case Management APRIL Arias onversion Transa ction, Provider Unknown - 09/16/2013 10:42 AM PST Progress Notes by Nimisha Allen OT at 09/16/13 1042 Author: Nimisha Allen OT Service: (none) Author Type: Occupational Therapist Filed: 09/16/13 1147 Date of Service: 09/16/13 104 Status: Signed Brim Cutter: Nimisha Allen OT (Occupational Therapist) OCCUPATIONAL THERAPY EVALUATION Duration of Session Time In: 10:05 Time Out: 10:30 PATIENT PROFILE Diagnosis: Post-traumatic seroma [729.91] (Post-traumatic seroma ) Seroma complicating a procedure [998.13] Surgery/Procedure: Procedure(s) with comments: I&D SPINE THORACIC/LUMBAR /SACRAL - 14230 L4-5 SPINAL FUSION EXPLORATION; No Removal of Taye dware (C-ARM Avail, PRONE on WENDY, WOUND VAC, ORTHOPEDIC PLUSE LAVAGE, 3 - 3 LITER BAGS) Surgery Date: 08/07/13, surgery scheduled for later today for debridement and exploration Precautions: Cleared for OOB: Yes Contact Spinal Surgery Precautions: General spine surgery SOCIAL HISTORY Living Environment: Patient lives with in [place], [place] in single level home with 6 [...] 1152 Date of Service: 09/16/13831 Status: Addendum Brim Cutter: Nya Bean RPh (Pharmacist) Related Notes: Original [...] 09/16/13813 Date of Service: 09/16/13641 Status: Signed Brim Cutter: Manasa Ortega ARNP (Nurse Practitioner) Neurosurgery Progress Note ID: Rebecca Castillo; 73 y.o. female [place] [facility] Att[facility] Yong Pena MD [...] -- CL 93* CLPOC -- HCO3 -- [id number] -- BUN 48* BUNPOC -- CR 1.54* GLUC 155* GLUCPOC -- Lab results (within last 13 months/9480 hours) Basename 09/15/13 1559 INR 1.0 PT 10.9 PTT 29.6 No results found for this basename: DPHTOTAL in the last 9480 hours Assessment/Plan: Ms. Castillo is a 73 year old female S/P L4-5 posterolateral fusion, L4-5 posterior segmental instrumentation with the NextFit instrumentation system, L4-5 laminectomy with lateral r [...] 09/16/13604 Date of Service: 09/16/13604 Status: Signed Brim Cutter: Jia Cortes RN (Registered Nurse) NSG Shift Summary Patient: Rebecca Castillo Back incision is covered with acticoat, drainage noted on lower portion. Ambulated to [facility] th SBA. Adequate pain control with 2tabs [place]. NPO since MN. Supportive at bedside. Will cont to monitor. Jia Cortes RN, 09/16/2013 6:05 AM onver [place] Transaction, Provider Unknown - 09/15/2013 11:36 PM PST Progress Notes by Parviz Plata RN at 09/15/13 5415 Author: Parviz Plata RN Service: (none) Author Type: Registered Nurse Filed: 09/15/13 2343 Date of Service: 09/15/13 2336 Status: Signed Brim Cutter: Parviz Plata RN (Registered Nurse) [facility] Admission Note Patient: Rebecca Castillo Admission Time [...] 172 Date of Service: 09/15/131717 Status: Signed Brim Cutter: Tim Alvarez MD (Physician) Infectious Diseases Consultation - Rebecca Lua [facility] day #1 see full dictated note Impression: [...] Thank you, will follow. Tim Alvarez MD [phone] documented in this e ncounter Plan of [...] | | | | | | [place] [address] | | | | | | [phone] | | | | | | | [...] | SALUD Dictated: 09/18/2013 6:38 PM Job: [id number] | | + + + + + [...] Dictated: 09/18/2013 6:38 PM | | Job: [id number] | + + Culture, Aerobic + Gram [...] Remark | | | For sensitivities see [id number] Quantity | | | Rare Culture | | | Proteus mirabilisGrowth Organism Remark | | | For sensitivities see [id number] | | + + + + +---------+ [...] Remark | | | For sensitivities see [id number] Quantity | | | Rare Culture | | | Proteus mirabilisGrowth Organism Remark | | | For sensitivities see [id number] | | + + + + +---------+ [...] Naida MAGANA Dictated: 09/15/2013 7:04 PM Job: [id number] | | + + + + + [...] Dictated: 09/15/2013 7:04 PM | | Job: [id number] | + + Culture, MRSA and MSSA [...]
--- OUTSIDE RECORDS SUMMARY | ~2019-10-18 | XMS | Encounter Summary ---
Demographics + + + | Address | [address] | | | [place] [address] | + + + | Home Phone [...] Team Providers + +------+ + | Care Principal Consultant Name | Role | Phone | [...] | | | | [place] | [address] | | | | | | and/or Inj | Phone: | | | | | | Major Joint | [phone] | | | | | | Right | Fax: | | | | | | | [phone] | | +--------+--------+ + + + + [...] | | | | [place] | [address] | | | | | | and/or Inj | Phone: | | | | | | Major Joint | [phone] | | | | | | Right | Fax: | | | | | | | [phone] | | +--------+--------+ + + + + Encounter Details +--------+ + + + + | Date | Type | Department | Care Team | Description | +--------+ + + + + | 03/03/ | Hospital | [facility] | Capo Bermudez, | Lumbar | | 2019 | Encounter | MED CTR XRAY [address] | PA-C [address] | radiculopathy; | | | | [place] | [address] [place] | Trochanteric | | | | [place] [address] | [place] [address] | bursitis, right hip | | | | [phone] | [phone] | | | | | | | | | | | | [place], [facility] | | +--------+ + + + [...] | | | | | | [place] [address] | | | | | | [phone] | | | | | | | [...]
--- OUTSIDE RECORDS SUMMARY | ~2019-10-18 | XMS | Clinical Summary ---
Demographics + + + | Address | [address] | | | [place] [address] | + + + | Home Phone | | + + + | Preferred Language | Unknown | + + + | Marital Status | | + + + | Anglican Affiliation | Unknown | + + + | Race | White | + + + | Ethnic Group | Not or | + + + Author + + + | Author | [facility] | + + + | Organization | [facility] | + + + [...] Providers + +------+ + | Care Cloth Drier Name | Role | Phone | + +------+ + PCP | Unavailable | + +------+ + Source Comments [facility] is fully live on both [facility] Ambulatory and [facility] InPatient.[facility] Allergies Not on File Medications [...]
--- OUTSIDE RECORDS SUMMARY | ~2019-10-18 | XMS | Encounter Summary ---
Demographics + + + | Address | [address] | | | [place] [address] | + + + | Home Phone [...] Team Providers + +------+ + | Care Foundation Relations Manager Name | Role | Phone [...] | | | [place], | [address] | | | | | Sacroiliitis | Nilson Jensen MD | [place], | | | | | , not | [address] | [place] | | | | | elsewhere | [place] | [address] | | | | | classified | [place], [place] | Phone: | | | | | ([facility]) | [address] | [phone] | | | | | Procedures | Phone: | Fax: | | | | | [place] INJECT SI | [phone] | [phone] | | | | | JOINT | Fax: | | | | | | ARTHRGRPHY&/ | [phone] | | | | | | ANES/STEROID | | | | | | | W/IMAGE [place] | | | | | | [...] + + | 07/19/ | Hospital | [facility] | Christiano, | SACROILIITIS; | | 2013 | Encounter | MED CTR XRAY [address] | GAMALIEL Saucedo [address] | SCOLIOSIS , | | | | [place] | [facility], | IDIOPATHIC | | | | [place] [address] | [place] [address] | | | | | [phone] | [phone] | | | | | | | | | | | | Sales And Marketing EngineerJaspal | | +--------+ + + + + [...] | | | | | | [place] [address] | | | | | | [phone] | | | | | | | [...] Rebecca Chanell Castillo presents to the | [facility] | | fluoroscopy suite for fluoroscopically guided bilateral sacroiliac [facility] | | joint steroid injections [...] [address] | [place] | [phone] | | [facility] | | [address] | | | - IMAGING | | [...] 720.0 Rebecca Castillo presents to the | [facility] | | fluoroscopy suite for fluoroscopically guided bilateral sacroiliac [facility] | | joint steroid injections [...] [address] | REG Cam | [phone] | | [facility] | | [address] | | | - IMAGING | | [...]
--- OUTSIDE RECORDS SUMMARY | ~2019-10-18 | XMS | Encounter Summary ---
Demographics + + + | Address | [address] | | | [place] [address] | + + + | Home Phone [...] Team Providers + +------+ + | Care Assembler Musical Equipment Name | Role | Phone | + +------+ + | Jesus Mijares MD | PCP | | + +------+ + Encounter Details +--------+ + + + + | Date | Type | Department | Care Team | Description | +--------+ + + + + | 05/14/ | Orders Only | [facility] | Conversion | | | 2017 | | NEPHROLOGY ELE[place] | Transaction, | | | | | [address] | Provider Unknown | | | | | [address] [facility] [place] | | | | | | [address] | (Fax) | | | | | [phone] | | | +--------+ + + + [...] | | | | | | [place] [address] | | | | | | [phone] | | | | | | | [...]
--- OUTSIDE RECORDS SUMMARY | ~2019-10-18 | XMS | Encounter Summary ---
Demographics + + + | Address | [address] | | | [place] [address] | + + + | Home Phone | | + + + | Preferred Language | Unknown | + + + | Marital Status | | + + + | Mormon Affiliation | 1027 | + + + | Race | Unknown | + + + | Ethnic Group | Unknown | + + + Author + + + | Author | [facility] | | | and [place] | + + + | Organization | [facility] | | | [...] Team Providers + +------+ + | Care Lan Administrator Name | Role | Phone | + +------+ + | Jesus Mijares MD | PCP | | + +------+ + Encounter Details +--------+ + + + + | Date | Type | Department | Care Team | Description | +--------+ + + + + | 11/20/ | Orders Only | [facility] | Veto Neri, | | | 2017 | | NEPHROLOGY [place] | BRADLEY LINEBACKER CREWMEMBER [address] | | | | | [address] | [address] | | | | | [address] [place], [place] | [place], [place] | | | | | [address] | [address] | | | | | [phone] | [phone] | | | | | | | [...] | | | | | | [place] [address] | | | | | | [phone] | | | | | | | [...] | | | LAB | | | [place] | | | | | + +---------+ [...]
--- OUTSIDE RECORDS SUMMARY | ~2019-10-18 | XMS | Encounter Summary ---
Demographics + + + | Address | [address] | | | [place] [address] | + + + | Home Phone | | + + + | Preferred Language | Unknown | + + + | Marital Status | | + + + | Jain Affiliation | 1027 | + + + | Race | Unknown | + + + | Ethnic Group | Unknown | + + + Author + + + | Author | [facility] | | | and [place] | + + + | Organization | [facility] | | | [...] Team Providers + +------+ + | Care Cableway Operator Name | Role | Phone | [...] Xray | | | | | | hCristiano, | [address] | | | | | Trochanteric | Sheryl, | [place], | | | | | bursitis of | PA-C [address] | [place] | | | | | both hips | [address] | [address] | | | | | Procedures | [place] | Phone: | | | | | [place] Asp Inj | [address] | [phone] | | | | | Major Joint | Phone: | Fax: | | | | | Right CHG | [phone] | [phone] | | | | | FLUOROSCOPIC | Fax: | | | | | | GUIDANCE | [phone] | | | | | | NEEDLE | | | | | | | PLACEMENT | | | | | | | ADD ON MI | | | | | | | [...] | Lumbar | Z[place], | [address] | | | | | radiculopath | Nilson T, MD | [place], | | | | | y | [address] | [place] | | | | | Trochanteric | [place] | [address] | | | | | bursitis of | [place] | Phone: | | | | | both hips | [address] | [phone] | | | | | Procedures | Phone: | Fax: | | | | | [place] | [phone] | [phone] | | | | | ARTHROCENTES | Fax: | | | | | | IS | [phone] | | | | | | ASPIR&/INJ [...] | | | | | ADD ON MI | | | | | | | TRIAMCINOLON | | | | | | | E ACET INJ | | | | | | | NOS, 10 MG | | | | | | | [place] INJECT | | | | | | | ANES/STEROID | | | | | | | FORAMEN | | | | | | | LUMBAR/SACRA | | | | | | | L W IMG | | | | | | | GUIDE ,1 | | | | | | | LEVEL [place] | | | | | | | [...] + + | 11/06/ | Hospital | [facility] | Annikadanowicz, | Lumbar | | 2018 | Encounter | MED CTR XRAY [address] | GAMALIEL Saucedo [address] | radiculopathy; | | | | [place] | [facility], | DEGENERATIVE DISC | | | | [place] [address] | [place] [address] | DISEASE, LUMBAR | | | | [phone] | [phone] | SPINE; Spinal | | | | | | stenosis of lumbar | | | | | [place], [place] | region without | | | [...] | | | | | | [place] [address] | | | | | | [phone] | | | | | | | [...] + | Performing | Address | City/State/[facility] | Phone Number | | Organization | [...]
--- OUTSIDE RECORDS SUMMARY | ~2019-10-18 | XMS | Encounter Summary ---
Demographics + + + | Address | [address] | | | [place] [address] | + + + | Home Phone [...] Team Providers + +------+ + | Care Entry Level Project Engineer Name | Role | Phone | + +------+ + PCP | Unavailable | + +------+ + Encounter Details +--------+ + + + + | Date | Type | Department | Care Team | Description | +--------+ + + + + | 08/ | Hospital | [facility] | Unknown, | | | 1991 | Encounter | MED CTR XRAY [address] | MD Tita | | | | | [place] | | | | | | [place] [address] | (Fax) | | | | | [phone] | | | +--------+ + + + [...] | | | | | | [place] [address] | | | | | | | [...]
--- OUTSIDE RECORDS SUMMARY | ~2019-10-18 | XMS | Encounter Summary ---
Demographics + + + | Address | [address] | | | [place] [address] | + + + | Home Phone [...] Team Providers + +------+ + | Care Personal Injury Specialist Name | Role | Phone | + +------+ + | Jesus Mijares MD | PCP | | + +------+ + Encounter Details +--------+ + + + + | Date | Type | Department | Care Team | Description | +--------+ + + + + | 03/11/ | Orders Only | [facility] | Rajendra Fowler, | | | 2017 | | CARDIOLOGY MIKEL | [address] | | | | | [address] | [place], | | | | | [place] | [place] [address] | | | | | [address] | [phone] | | | | | [phone] | | | +--------+ + + + [...] | | | | | | [place] [address] | | | | | | [phone] | | | | | | | [...]
--- OUTSIDE RECORDS SUMMARY | ~2019-10-18 | XMS | Encounter Summary ---
Demographics + + + | Address | [address] | | | [place] [address] | + + + | Home Phone | | + + + | Preferred Language | Unknown | + + + | Marital Status | | + + + | Uatsdin Affiliation | 1027 | + + + | Race | Unknown | + + + | Ethnic Group | Unknown | + + + Author + + + | Author | [facility] | | | and [place] | + + + | Organization | [facility] | | | and [...] Team Providers + +------+ + | Care Candle Wicker Name | Role | Phone | + +------+ + | Jesus Mijares MD | PCP | | + +------+ + Encounter Details +--------+ + + + + | Date | Type | Department | Care Team | Description | +--------+ + + + + | 07/17/ | Orders Only | [facility] | Conversion | | | 2015 | | NEPHROLOGY ELEAZAR | Transaction, | | | | | [address] | Provider Unknown | | | | | [address] [facility] [place] [place] | | | | | | [address] | (Fax) | | | | | [phone] | | | +--------+ + + + [...] | | | | | | [place] [address] | | | | | | [phone] | | | | | | | [...] - 1.030 | EXTERNAL | | | [place] | | | LAB | | + [...]
--- OUTSIDE RECORDS SUMMARY | ~2019-10-18 | XMS | Encounter Summary ---
Demographics + + + | Address | [address] | | | [place] [address] | + + + | Home Phone [...] Team Providers + +------+ + | Care Decker Operator Name | Role | Phone | [...] | | | Sabrinacz, | [address] | | | | | Degenerative | Sheryl, | [place], | | | | | disc | PA-C [address] | [place] | | | | | disease, | [address] | [address] | | | | | lumbar | [place], [place] | Phone: | | | | | Chronic back | [address] | [phone] | | | | | pain | Phone: | Fax: | | | | | Idiopathic | [phone] | [phone] | | | | | scoliosis | Fax: | | | | | | Procedures | [phone] | | | | | | MRI [...] + + | 06/24/ | Office | [facility] | Sabrinacz, | SACROILIITIS | | 2013 | Visit | PHYSIATRY [address] | [address] Saucedo [address] | (Primary Dx); | | | | [address] [place], | [facility], | DEGENERATIVE DIS[place] | | | | [place] [address] | [place] [address] | DISEASE, LUMBAR | | | | [phone] | [phone] | SPINE; Chronic back | | | [...] of the procedure you must provide a bicycle taxi driver to take you home. For [...] n. This was performed on 08/07/13 in [place] by a Dr. Yong Pena. She reports [...] | | | | | | [place] [address] | | | | | | [phone] | | | | | | | [...] 720.0 Rebecca Castillo presents to the | [facility] | | fluoroscopy suite for fluoroscopically guided bilateral sacroiliac [facility] | | joint steroid injections as part [...] | + + + + + | [facility]. | [address] | [place] | [phone] | | [facility] | | [address] | | | - IMAGING | | [...] 720.0 Rebecca Castillo presents to the | [facility] | | fluoroscopy suite for fluoroscopically guided bilateral sacroiliac [facility] | | joint steroid injections as part [...] + | [facility] | [address] | REG Cam | [phone] | | [facility] | | [address] | | | - IMAGING | | [...] + | MISCELLANEOUS LAB | | | [phone] | + +---------+ + + | MISCELANIOUS LAB | | | [phone] | + +---------+ + + documented in [...]
--- OUTSIDE RECORDS SUMMARY | ~2019-10-18 | XMS | Encounter Summary ---
Demographics + + + | Address | [address] | | | [place] [address] | + + + | Home Phone [...] Providers + +------+ + | Care Mobile Web Application Developer Name | Role | Phone | + +------+ + | Jesus Mijares MD | PCP | | + +------+ + Encounter Details +--------+ + + + + | Date | Type | Department | Care Team | Description | +--------+ + + + + | 04/25/ | Orders Only | [facility] | Rajendra Fowler, | | | 2016 | | CARDIOLOGY MIKEL | [address] | | | | | [address] | [place], | | | | | [facility] [place] | [place] [address] | | | | | [address] | [phone] | | | | | [phone] | | | +--------+ + + + [...] | | | | | | [place] [address] | | | | | | [phone] | | | | | | | [...]
--- OUTSIDE RECORDS SUMMARY | ~2019-10-18 | XMS | Encounter Summary ---
Demographics + + + | Address | [address] | | | [place] [address] | + + + | Home Phone [...] Team Providers + +------+ + | Care Windshield Repair Technician Name | Role | Phone [...] | | | | | Procedures | [place], [place] | | | | | | [place] | [address] | | | | | | Joint | Phone: | | | | | | Injection | [phone] | | | | | | Right | Fax: | | | | | | | [phone] | | +--------+--------+ + + + + [...] | | | Christiano, | [address] | | | | | Trochanteric | Sheryl, | [place], | | | | | bursitis of | PA-C [address] | [place] | | | | | both hips | [address] | [address] | | | | | Lumbar | [place], [place] | Phone: | | | | | radiculopath | [address] | [phone] | | | | | y | Phone: | Fax: | | | | | Procedures | [phone] | [phone] | | | | | [place] Major | Fax: | | | | | | Joint | [phone] | | | | | | Injection | | | | | | | Left [place] | | | | | | [...] | | Procedures | [place] | | | | | | [place] Major | [address] | | | | | | Joint | Phone: | | | | | | Injection | [phone] | | | | | | Right | Fax: | | | | | | | [phone] | | +--------+--------+ + + + + Encounter Details +--------+ + + + + | Date | Type | Department | Care Team | Description | +--------+ + + + + | 08/05/ | Hospital | [facility] | Christiano, | Trochanteric | | 2017 | Encounter | MED CTR XRAY [address] | GAMALIEL Saucedo [address] | bursitis of both | | | | [place] | [facility], | hips; Spinal | | | | [place] [address] | [place] [address] | stenosis of lumbar | | | | [phone] | [phone] | region - L3/L4, | | | | | | adjacent segment | | | | | Veterinary Meat InspectorJaspal | disease; Lumbar | | | | [...] | | | | | | [place] [address] | | | | | | [phone] | | | | | | | [...] Transforaminal Epidural Steroid Injections and Right | [facility] | | Trochanteric Bursa Injection Diagnosis: [...] [address] | [place] | [phone] | | [facility] | | [address] | | | - IMAGING | | [...] [address] | REG Cam | [phone] | | [facility] | | [address] | | | - IMAGING | | [...]
--- OUTSIDE RECORDS SUMMARY | ~2019-10-18 | XMS | Encounter Summary ---
Demographics + + + | Address | [address] | | | [place] [address] | + + + | Home Phone [...] Team Providers + +------+ + | Care Shower Attendant Name | Role | Phone | [...] | | | | [place] | [address] | | | | | | and/or Inj | Phone: | | | | | | Major Joint | [phone] | | | | | | Right | Fax: | | | | | | | [phone] | | +--------+--------+ + + + + [...] bursitis, right hip | | | | [place], | [place] | (Primary Dx) | | | | [place] [address] | [address] | | | | | [phone] | | | +--------+ + + + [...] | | | | | | [place] [address] | | | | | | [phone] | | | | | | | [...]
--- OUTSIDE RECORDS SUMMARY | ~2019-10-18 | XMS | Encounter Summary ---
Demographics + + + | Address | [address] | | | [place] [address] | + + + | Home Phone [...] Team Providers + +------+ + | Care Reinforced Concrete Inspector Name | Role | Phone | [...] + + | 02/26/ | Office | [facility] | Nilson Chaudhry | Sacroiliitis (HCC) | | 2012 | Visit | PHYSIATRY [address] | MD Camila [address] | (Primary Dx); Lumbar | | | | [place], | [place], [place] | radiculopathy; | | | | [place] [address] | [address] | Bursitis, hip; | | | | [phone] | | DEGENERATIVE DISC | | | [...] The [place] [facility] [place] [facility] for these issues. She [...] | | | | | | [place] [address] | | | | | | [phone] | | | | | | | [...]
--- OUTSIDE RECORDS SUMMARY | ~2019-10-18 | XMS | Encounter Summary ---
Demographics + + + | Address | [address] | | | [place] [address] | + + + | Home Phone [...] Providers + +------+ + | Care Order Entry Administrator Name | Role | Phone | + +------+ + | Jesus Mijares MD | PCP | | + +------+ + Encounter Details +--------+ + + + + | Date | Type | Department | Care Team | Description | +--------+ + + + + | 09/15/ | Hospital | [facility] | Yong Pena | S/P lumbar fusion | | 2012 - | Encounter | SOFIA CASTROLSY | MD [address] | | | | | [address] | [address] | | | 09/22/ | | [place], [place] | [place] [address] | | | 2012 | | [address] | [phone] | | | | | [phone] | | | +--------+ + + + [...] (none) Author Type: Nurse Practitioner Filed: 09/22/13 4229 Date of Service: 09/22/13 1320 Status: Signed Manager Primary: Manasa Ortega ARNP (Nurse Practitioner) Cosigner: Yong Pena MD at 8138 Neurosurgery Discharge Summary Note Patient: Rebecca Castillo [...] year old female who presented to [facility] on 09/15/2013 from [facility] for a superficial wound infection S/P lumbar fusion six weeks prior. She was taken to the OR on 09/16/2013 for exploration of the spinal fusion and placement of a wound vacuum. P ost-operatively, the patient was transferred to for continued monitoring. She did well o vernight with pain initially managed with a MARZIPAN MOLDER, but was weaned to an oral pain [...] As tolerated Instructions/Follow-up: Discharge Instructions 1. Call [facility] Neuroscience office with any questions or concerns at [phone] (RN line ). 2. Sutures should come out post operative day [address] Pena's preference you re turn to his clinic for their removal. Please call [phone] to schedule appointment to h ave these [...] of infection, call the Nurse line at [phone]. 6. Follow up with your primary care physician as needed or as per next scheduled appointmen t. 7. Follow up at Dr. Pena's office in 6 weeks. Call to schedule appointment at . Imaging studies will be obtained at follow up. 8. For after hours emergencies, contact: soni Wilkerson [phone] robert Daniels [phone] Activity & Medications 1. Your activity will [...] Concerns please call your Physicians Office at: [phone] Preventing Infection As you recover from surgery we want you to heal and recover without added worry or problems . You may have heard of, or know someone, who had surgery and later went back to the [facility] because of an infection. These infections can [...] NICOLLE Gamble 09/22/2013, 13:20 Administrative Data: CPT [id number] than 30 min (Time spent: 50) CC: Jesus Mijares documentpaola roemro in this encounter Medications at Time of [...] (none) Author Type: Registered Nurse Filed: 09/22/13 2017 Date of Service: 09/22/131127 Status: Signed Manager Primary: Patrica Amado RN (Registered Nurse) NSG Shift [...] 09/22/13641 Date of Service: 09/22/13640 Status: Signed Manager Primary: Mary Stiles RN (Registered Nurse) NS Progress [...] RN, 09/22/2013 6:[address] AR MARKETING PROGRAMS MANAGER - 09/22/2013 6:32 AM PST Progress Notes by Manasa Ortega ARNP at 09/22/1332 Author: Manasa Ortega ARNP Service: (none) Author Type: Nurse Practitioner Filed: 09/22/13 0824 Date of Service: 09/22/13 0632 Status: Signed Manager Primary: Manasa Ortega ARNP (Nurse Practitioner) Neurosurgery Progress [...] 09/21/132315 Date of Service: 09/21/132312 Status: Signed Manager Primary: Fabiana Cartwright RN (Registered Nurse) NS Arrival [...] call light to telephone and television to [facility] information to plan for the day Fabiana Cartwright RN, 09/21/2013 11:13 PM Fabiana Granados RN - 09/21/2013 7:58 PM PSTFormatting of this note might be different from the origina l. Progress Notes by Fabiana Cartwright RN at 09/21/131957 Author: Fabiana Cartwright RN Service: (none) Author Type: Registered Nurse Filed: 09/21/132003 Date of Service: 09/21/131957 Status: Signed Manager Primary: Fabiana Cartwright RN (Registered Nurse) NS Progress [...] 09/21/131854 Date of Service: 09/21/131843 Status: Addendum Manager Primary: Fabiana Cartwright RN (Registered Nurse) Related Notes: Original Note by Fabiana Cartwright RN (Registered Nurse) filed at 09/21 [facility] [place] [place] Progress Note Brief Patient: Rebecca Castillo Patient [...] 09/21/131812 Date of Service: 09/21/131807 Status: Signed Manager Primary: iTm Alvarez MD (Physician) Infectious Diseases Progress Note [...] pansensitive Xray: None new Tim Alvarez MD [phone] onversion Transacti on, Provider Unknown - 09/21/2013 5:02 PM PSTFormatting of this note might be different fro m the original. Progress Notes by Mario Granados, RN at 09/21/13 170 Author: Mario Granados RN Service: (none) Author Type: Registered Nurse Filed: 09/21/13 171 Date of Service: 09/21/13 170 Status: Signed Manager Primary: Mario Granados RN (Registered Nurse) NS Progress Note Brief Patient: Rebecca Castillo Pt has been NPO since after breakfast for a scheduled surgery this afternoon. A&Ox4, moves all extremities. No infection noted. Ambulating using a FWW. Pain controlled with [place]. Wo und Vac incact, Dressing CDI. BM this morning. Call light within reach, will continue to mon itor. Mario Granados RN, 09/21/2013 5:03 PM acobs on, APRIL Mclain - 09/21/2013 3:12 PM PSTFormatting of this note might be different from th e original. Progress Notes by Erica Abdul MSW at 09/21/13 1512 Author: Erica Abdul MSW Service: (none) Author Type: Enchilada Maker Filed: 09/21/13 1521 Date of Service: 09/21/13 1512 Status: Signed Manager Primary: Erica Abdul MSW (Enchilada Maker) Case Management Progress Note 09/21/2013 15:13 Patient Rebecca Castillo is a 73 y.o. female s/p exploration of spinal fusion and placement of wound vacuum. Anticipated D/C Plan: Home with HH Current Clinical Needs: Wound vac (@ 125 mm Hg) closure scheduled for today, diabetes stacy blanco, PT/OT, discharge planning Discussion: Per [facility], pt will be ready to discharge home tomorrow 09/22/13. CATHETERIZATION LABORATORY TECHNICIAN met with p t and at bedside to discuss HH RN. Pt and verbalize agreement. COURT MESSENGER sent refe rral, [facility] accepted pt for admission. CATHETERIZATION LABORATORY TECHNICIAN provided information to pt, who verbalizes appreciation. Case Management Interventions: Case Mgmt Team Interventions: Chart review/screening;Consul t with healthcare team;D/C planning [place]: [facility] [place] offered: Yes Medicare Important Message given: Date Medicare IM provided: 09/21/13 Time Medicare IM provided: 1506 APRIL Peterson onversio n Transaction, Provider Unknown - 09/21/2013 11:15 AM PSTFormatting of this note might be di fferent from the original. Progress Notes by Reymundo Pagan at 09/21/131114 Author: Reymundo Pagan Service: (none) Author Type: Property Assessment Monitor Filed: 09/21/13 1453 Date of Service: 09/21/131114 Status: Addendum Manager Primary: Reymundo Pagan (Property Assessment Monitor) Related Notes: Original Note by Reymundo Pagan (Property Assessment Monitor) filed at 06/26 1447 Case Management Referral Note 09/21/2013 11:16 Patient Rebecca Castillo is a 73 y.o. female Type of Referral: Home Health Date referral sent: 09/21/2013 Estimated DC Date: TBD Patient's preferences: TBD Number of referrals sent: 1 Accepting Referral Responses as of 09/21/2013 Agency/Facility Name & Contact information: [facility] [phone], fax [phone] ----- Willing to ac cept patient Reymundo Joneseye Manasa Marks ARNP - 09/21/2013 6:34 AM PSTFormatting of this note might be different from th e original. Progress Notes by Manasa Ortega ARNP at 09/21/1334 Author: Manasa Ortega ARNP Service: (none) Author Type: Nurse Practitioner Filed: 09/21/13 0741 Date of Service: 09/21/13633 Status: Addendum Manager Primary: Manasa Ortega ARNP (Nurse Practitioner) Related Notes: [...] (none) Author Type: Registered Nurse Filed: 09/20/13 7001 Date of Service: 09/20/132238 Status: Addendum Manager Primary: Mary Lou Cherry RN (Registered Nurse) Related [...] Outcome: PROGRESSING EXPECTED Took Oxycodone, tylenol and [place] during this shift for back pain. Pain [...] Date of Service: 09/20/13 1526 Status: Signed Manager Primary: Nimisha Allen OT (Occupational Therapist) OCCUPATIONAL THERAPY [...] Date of Service: 09/20/13 111 Status: Signed Manager Primary: Priscila Prado PT (Physical Therapist) PHYSICAL THERAPY [...] 09/20/131106 Date of Service: 09/20/131105 Status: Signed Manager Primary: Nimisha Allen OT (Occupational Therapist) Attempted to [...] 09/20/1351 Date of Service: 09/20/13948 Status: Signed Manager Primary: Gerry Degroot MD (Physician) Plastic Surgery Continues [...] by Brittney Richardson RN at 09/20/13610 Author: rBittney Richardson RN Service: (none) Author Type: Registered Nurse Filed: 09/20/13612 Date of Service: 09/20/13610 Status: Signed Manager Primary: Brittney Richardson RN (Registered Nurse) Rebecca Castillo [...] 1040 Date of Service: 09/20/13603 Status: Signed Manager Primary: Manasa Ortega ARNP (Nurse Practitioner) Neurosurgery Progress Note ID: Rebecca Castillo; 73 y.o. female [facility] Attending Yong Pena MD Hospital Day # [...] (none) Author Type: Registered Nurse Filed: 09/19/13 9751 Date of Service: 09/19/13 1500 Status: Signed Manager Primary: Andres Sarabia, RN (Registered Nurse) Pain control [...] 1018 Date of Service: 09/19/131014 Status: Signed Manager Primary: Gerry Degroot MD (Physician) Plastic Surgery Skin [...] 1004 Date of Service: 09/19/13956 Status: Signed Manager Primary: Nimisha Allen OT (Occupational Therapist) OCCUPATIONAL THERAPY [...] 09/19/13816 Date of Service: 09/19/13625 Status: Signed Manager Primary: Manasa Ortega ARNP (Nurse Practitioner) Neurosurgery Progress Note ID: Rebecca Castillo; 73 y.o. female [facility] Att[facility] Yong Pena MD Hospital Day # [...] 93* CLPOC -- -- HCO3 -- -- [id number] -- -- BUN -- 48* BUNPOC -- [...] 09/19/13513 Date of Service: 09/19/13442 Status: Signed Manager Primary: Ana Cardozo RN (Registered Nurse) NS Progress Note Brief Patient: Rebecca Castillo VSS, neuro unchanged this shift. Mild weakness of BLE, chronic peripheral neuropathy. Incis ional pain well controlled with [place]. Wound vac with bloody-serosang drainage, dressing C/D [...] 09/18/132106 Date of Service: 09/18/132106 Status: Signed Manager Primary: Lion Rizzo RN (Registered Nurse) Problem: CARDIOVASCULAR [...] 09/18/132104 Date of Service: 09/18/132104 Status: Signed Manager Primary: Lion Rizzo RN (Registered Nurse) Problem: PAIN [...] 09/18/131821 Date of Service: 09/18/131816 Status: Signed Manager Primary: Tim Alvarez MD (Physician) Infectious Diseases Progress [...] for iv access in the hospital, not custodial iv antibiotics. Wound closure on Sat day [...] pending Xray: None new Tim Alvarez MD [phone] onversion Transacti on, Provider Unknown - 09/18/2013 2:49 PM PSTFormatting of this note might be different fro m the original. 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 that pt associated with [...] Arturo Roberto, RD, 09/18/2013 3:24 PM Phone [phone] Pager [phone] for weekdays (7:30 am - 4:00 pm) Pager [phone] for weekends (7:00 am - 3:30 pm) hannon Escalante RN-CWOCN - 09/18/2013 1:57 PM PST Progress Notes by Shannon Escalante RN, JORDAN at 09/18/13 1317 Author: Shannon Escalante RN, CWCN Service: (none) Author Type: Wound/Ostomy Nurse Filed: 09/18/13 1408 Date of Service: 09/18/13 7486 Status: Signed Manager Primary: Shannon Escalante RN, CWCN (Wound/Ostomy Nurse) WOUND [...] 0816 Date of Service: 09/18/13633 Status: Signed Manager Primary: Manasa Ortega ARNP (Nurse Practitioner) Neurosurgery Progress [...] 93* CLPOC -- -- HCO3 -- -- [id number] -- -- BUN -- 48* BUNPOC -- [...] - Continue antibiotics per Dr. Antonio Ortega [facility] 06:34; 09/18/2013 onversio n Transaction, Provider Unknown - 09/17/2013 5:12 PM PSTFormatting of this note might be di fferent from the original. Progress Notes by Priscila Prado PT at 09/17/131711 Author: Priscila Prado PT Service: (none) Author Type: Physical Therapist Filed: 09/17/131718 Date of Service: 09/17/131711 Status: Signed Manager Primary: Priscila Prado PT (Physical Therapist) PHYSICAL THERAPY MED/SURG RE-EVALUATION Duration of Session Time In: 1600 Time Out: 1630 PATIENT PROFILE Diagnosis: Post-traumatic seroma [729.91] (Post-traumatic seroma ) Seroma complicating a procedure [998.13] Surgery/Procedure: Procedure(s) with comments: I&D SPINE THORACIC/LUMBAR /SACRAL - 35554 L4-5 SPINAL FUSION EXPLORATION; No Removal of Taye dware (C-ARM Avail, PRONE on WENDY, WOUND VAC, ORTHOPEDIC PLUSE LAVAGE, 3 - 3 LITER BAGS) Surgery Date: 09/16/13 Precautions: Cleared for OOB: Yes Spinal Surgery Precautions: General spine surgery wound vac SOCIAL HISTORY Living Environment: Patient lives with in [place], [place] [facility] to provid [facility] assistance [facility]/05) [...] Re-education, Bed Mobility, Gait, Home Exercise Program, Patient/weekend caregiver Training, Transfers, Therapeutic Exercise Frequency: treat 1-2 [...] visit: Progressive gait, stairs and family training PT/FRUIT SPRAYER order assistive devices prn Risks and benefits of treatment reviewed with patient/family and they agree with plan of ca re: Yes Nya Salter [facility] - 09/17/2013 4:14 PM PSTFormatting of this note might be different from the or iginal. Progress Notes by Nya Bean RPh at 09/17/13 1614 Author: Nya Bean RPh Service: (none) Author Type: Pharmacist Filed: 09/17/13 1616 Date of Service: 09/17/13 1614 Status: Signed Manager Primary: Nya Bean RPh (Pharmacist) Vancomycin dosing per [...] Date of Service: 09/17/13 1315 Status: Signed Manager Primary: Shannon Escalante RN, CWCN (Wound/Ostomy Nurse) Wound [...] Date of Service: 09/17/13 1152 Status: Signed Manager Primary: Nimisha Allen OT (Occupational Therapist) OCCUPATIONAL THERAPY RE-EVALUATION Duration of Session Time In: 11:25 Time Out: 11:50 PATIENT PROFILE Diagnosis: Post-traumatic seroma [729.91] (Post-traumatic seroma ) Seroma complicating a procedure [998.13] Surgery/Procedure: Procedure(s) with comments: I&D SPINE THORACIC/LUMBAR /SACRAL - 18070 L4-5 SPINAL FUSION EXPLORATION; No Removal of [...] 09/17/131125 Date of Service: 09/17/131125 Status: Signed Manager Primary: Lion Rizzo RN (Registered Nurse) Problem: SKIN/TISSUE [...] wound culture shows no growth to date, FRUIT BAR MAKER recommends PICC while on vancomycin IV, w ill inform ID physician tomorrow, new IV placed. onversion Trans action, Provider Unknown - 09/17/2013 11:18 AM PST Progress Notes by Zoë Valencia at 09/17/131117 Author: Zoë Valencia Service: (none) Author Type: Jumpbasting Facing Baster Filed: 09/17/13 1129 Date of Service: 09/17/131117 Status: Signed Manager Primary: Zoë Valenica (Jumpbasting Facing Baster) Medical Nutrition Therapy BMI: 34.74, obese Positive [...] Notes by Kelly Hanson RN at 09/17/13 1044 Author: Kelly Hanson RN Service: (none) Author Type: Quilting Supervisor Filed: 09/17/13 1104 Date of Service: 09/17/13 104 Status: Signed Manager Primary: Kelly Hanson RN (Quilting Supervisor) Case Management Discharge Planning Assessment 10:50; 09/17/2013 Patient Rebecca Castillo is a 73 y.o. female Discussion: Reviewed chart and discussed patient in multidisciplinary rounds. I met with Mr radha Castillo to introduce myself and the role of case management. Mrs Castillo lives in [facility] with her and adult daughter who [...] mostly when [place] [facility] She has safety accommodations in the bathroom, [...] 23. Her is staying here in the [facility] [place]. Her will be her transportation upon discharge. [...] Modified Independent DME and/or supplies at residence FRUIT SPRAYER: Cane or walker (comment);Bedside commode/shower chair (comment) PCP: Per chart review Jesus Mijares Principle Payors: Per chart review Payor: MEDICARE Plan: MEDICARE PART A AND B Product Type: *No Product type* Primary Contact Information: Extended Emergency Contact Information Primary Emergency Contact: Oniel Castillo Address: [address] [address] [facility] [place] Relation: Spouse Secondary Emergency Contact: Debbie Selby [facility] [employer] Relation: Daughter Chart reviewed and Case Management to follow and assist with discharge planning and inpatie nt management as needed Nazia Hanson, RN, BSN Nurse Sight Effects Specialist [facility] Pager [phone] oTim chicas MD - 09/17/2013 10:05 AM PSTFormatting of this note might be different from the o riginal. Progress Notes by Tim Alvarez MD at 09/17/13 1005 Author: Tim Alvarez MD Service: (none) Author Type: Physician Filed: 09/17/13 2339 Date of Service: 09/17/13 1005 Status: Signed Manager Primary: Tim Alvarez MD (Physician) Infectious Diseases Progress [...] stain Xray: None new Tim Alvarez MD [phone] age, TAMAR Berry MARKETING PROGRAMS MANAGER - 09/17/2013 6:45 AM PST Progress Notes by Manasa Ortega ARNP at 09/17/1324 Author: Manasa Ortega ARNP Service: (none) Author Type: Nurse Practitioner Filed: 09/17/13 1103 Date of Service: 09/17/13644 Status: Addendum Manager Primary: Manasa Ortega ARNP (Nurse Practitioner) Related Notes: [...] 93* CLPOC -- -- HCO3 -- -- [id number] -- -- BUN -- 48* BUNPOC -- [...] hourly while awake 2. Pain - DC MARZIPAN MOLDER - Oral pain regimen only 3. MARTIN [...] - Continue antibiotics per Dr. Antonio Ortega [facility] 06:45; 09/17/2013 Brittani Harp RN - 09/17/2013 4:23 AM PSTFormatting of this note might be different from the or iginal. Progress Notes by Brittani Mckeon RN at 09/17/13422 Author: Brittani Mckeon RN Service: (none) Author Type: Registered Nurse Filed: 09/17/13 0529 Date of Service: 09/17/13422 Status: Signed Manager Primary: Brittani Mckeon RN (Registered Nurse) [facility] [place] [place] Progress Note Brief Patient: Rebecca Lua Jonathan BLE 5/5. Wound vac continuous suction at 125 mmhg, bloody drainage. Output 50 ml over NOC shift. OOB with 1 PA and 4 wheeled walker. Incisional pain 6/10 when ambulating. Transit ioned to oral pain meds. Dilaudid MARZIPAN MOLDER weaned at 0500. Used 5.6 mg overnight. Voiding witho ut difficulty, PVR 89 and 44. Brittani Mckeon RN, 09/17/2013 5:27 AM Tim Fernandez M D - 09/16/2013 9:13 PM PST Progress Notes by Tim Alvarez MD at 09/16/132112 Author: Tim Alvarez MD Service: (none) Author Type: Physician Filed: 09/16/132115 Date of Service: 09/16/132112 Status: Signed Manager Primary: Tim Alvarez MD (Physician) Infectious Diseases Progress [...] stain Xray: None new Tim Alvarez MD [phone] hMarizol martinez RN - 09/16/2013 5:15 PM PST Progress Notes by Marizol Munson RN at 09/16/131714 Author: Marizol Munson RN Service: (none) Author Type: Registered Nurse Filed: 09/16/131956 Date of Service: 09/16/131714 Status: Signed Manager Primary: Marizol Munson RN (Registered Nurse) [facility] [place] [place] Arrival Note Patient: Rebecca Castillo Arrival time: [...] of last pain med: PACU. Started on MARZIPAN MOLDER Lines and drains: Wound vac Current IV: normal saline at 100cc/hr Current nursing problems: Mobility, pain control, postop care Patient orientation: to call light to telephone and television to general hospital information to plan for the day [facility] centralized monitoring initiated Marizol Munson RN, 09/16/2013 7:55 PM Kathleen Jean MS W - 09/16/2013 3:56 PM PST Progress Notes by Kathleen Eastman MSW at 09/16/13 4216 Author: Kathleen Eastman MSW Service: (none) Author Type: Enchilada Maker Filed: 09/16/13 0412 Date of Service: 09/16/13 1556 Status: Signed Manager Primary: Kathleen Eastman MSW (Enchilada Maker) Case Management Discharge Planning Assessment 15:56; 09/16/2013 Patient Rebecca Castillo is a 73 y.o. female who lives in [facility] who is admitted for spinal [...] Mgmt Team Interventions: Care coordination;Chart review/screening;Consult with [facility] are team;D/C planning initial assessment [...] spouse Current Providers/Agencies: Medicare A & B, [facility] Prior to admit, the patient was: Living at home with others Mobility prior to admit: Modified Independent DME and/or supplies at residence FRUIT SPRAYER: Cane or walker (comment);Bedside commode/shower chair (comment) PCP: Per chart review Jesus Mijares Principle Payors: Per chart review Payor: MEDICARE Plan: MEDICARE PART A AND B Product Type: *No Product type* Primary Contact Information: Extended Emergency Contact Information Primary Emergency Contact: Oniel Castillo Address: [address] [place] [address] [facility] Mobile Relation: Spouse Secondary Emergency Contact: Debbie Selby [facility] Relation: Daughter Patient is being followed by Case Management APRIL Arias onversion Transa ction, Provider Unknown - 09/16/2013 10:42 AM PST Progress Notes by Nimisha Allen OT at 09/16/13 1042 Author: Nimisha Allen OT Service: (none) Author Type: Occupational Therapist Filed: 09/16/13 1147 Date of Service: 09/16/13 104 Status: Signed Manager Primary: Nimisha Allen OT (Occupational Therapist) OCCUPATIONAL THERAPY EVALUATION Duration of Session Time In: 10:05 Time Out: 10:30 PATIENT PROFILE Diagnosis: Post-traumatic seroma [729.91] (Post-traumatic seroma ) Seroma complicating a procedure [998.13] Surgery/Procedure: Procedure(s) with comments: I&D SPINE THORACIC/LUMBAR /SACRAL - 16509 L4-5 SPINAL FUSION EXPLORATION; No Removal of Taye dware (C-ARM Avail, PRONE on WENDY, WOUND VAC, ORTHOPEDIC PLUSE LAVAGE, 3 - 3 LITER BAGS) Surgery Date: 08/07/13, surgery scheduled for later today for debridement and exploration Precautions: Cleared for OOB: Yes Contact Spinal Surgery Precautions: General spine surgery SOCIAL HISTORY Living Environment: Patient lives with in [place], [place] in single level home with 6 [...] 1152 Date of Service: 09/16/13831 Status: Addendum Manager Primary: Nya Bean RPh (Pharmacist) Related Notes: Original [...] 09/16/13813 Date of Service: 09/16/13641 Status: Signed Manager Primary: Manasa Ortega ARNP (Nurse Practitioner) Neurosurgery Progress Note ID: Rebecca Castillo; 73 y.o. female [facility] Att[facility] Yong Pena MD Hospital Day # [...] -- CL 93* CLPOC -- HCO3 -- [id number] -- BUN 48* BUNPOC -- CR 1.54* GLUC 155* GLUCPOC -- Lab results (within last 13 months/9480 hours) Basename 09/15/13 1559 INR 1.0 PT 10.9 PTT 29.6 No results found for this basename: DPHTOTAL in the last 9480 hours Assessment/Plan: Ms. Castillo is a 73 year old female S/P L4-5 posterolateral fusion, L4-5 posterior segmental instrumentation with the [employer] instrumentation system, L4-5 laminectomy with lateral r [...] 09/16/13604 Date of Service: 09/16/13604 Status: Signed Manager Primary: Jia Cortes RN (Registered Nurse) NSG Shift Summary Patient: Rebecca Castillo Back incision is covered with acticoat, drainage noted on lower portion. Ambulated to [facility] th SBA. Adequate pain control with 2tabs [place]. NPO since MN. Supportive at bedside. Will cont to monitor. Jia Cortes RN, 09/16/2013 6:05 AM onver [place]rett Transaction, Provider Unknown - 09/15/2013 11:36 PM PST Progress Notes by Parviz Plata RN at 09/15/13 3028 Author: Parviz Plata RN Service: (none) Author Type: Registered Nurse Filed: 09/15/13 2343 Date of Service: 09/15/13 2336 Status: Signed Manager Primary: Parviz Plata RN (Registered Nurse) [facility] [place], [place] Admission Note Patient: Rebecca Castillo Admission Time [...] 172 Date of Service: 09/15/131717 Status: Signed Manager Primary: Tim Alvarez MD (Physician) Infectious Diseases Consultation - Rebecca Lua [facility] day #1 see full dictated note [...] Thank you, will follow. Tim Alvarez MD [phone] documented in this e ncounter Plan of Treatment +--------+ + + + + | Date | Type | Specialty | Care Team | Description | +--------+ + + + + | 11/17/ | Office | Cardiology | Rajendra Fowler, | | | 2019 | Visit | | MD [address] | | | | | | [place], | | | | | | [place] [address] | | | | | | [phone] | | | | | | | [...] | SALUD Dictated: 09/18/2013 6:38 PM Job: [id number] | | + + + + + [...] Dictated: 09/18/2013 6:38 PM | | Job: [id number] | + + Culture, Aerobic + Gram [...] Remark | | | For sensitivities see [id number] Quantity | | | Rare Culture | | | Proteus mirabilisGrowth Organism Remark | | | For sensitivities see [id number] | | + + + + +---------+ [...] Remark | | | For sensitivities see [id number] Quantity | | | Rare Culture | | | Proteus mirabilisGrowth Organism Remark | | | For sensitivities see [id number] | | + + + + +---------+ [...] Naida MAGANA Dictated: 09/15/2013 7:04 PM Job: [id number] | | + + + + + [...] Dictated: 09/15/2013 7:04 PM | | Job: [id number] | + + Culture, MRSA and MSSA [...]
--- OUTSIDE RECORDS SUMMARY | ~2019-10-18 | XMS | Encounter Summary ---
Demographics + + + | Address | [address] | | | [place] [address] | + + + | Home Phone [...] Team Providers + +------+ + | Care Assistant Public Defender Name | Role | Phone | + +------+ + | Jesus Mijares MD | PCP | | + +------+ + Encounter Details +--------+ + + + + | Date | Type | Department | Care Team | Description | +--------+ + + + + | 11/06/ | Hospital | [facility] | Christiano, | Chronic right | | 2018 | Encounter | MED CTR XRAY [address] | GAMALIEL Saucedo [address] | shoulder pain | | | | [place] | CHRISTIAN HUGHES, | | | | | [place] [address] | [place] [address] | | | | | [phone] | [phone] | | | | | | | [...] | | | | | | [place] [address] | | | | | | [phone] | | | | | | | [...]
--- OUTSIDE RECORDS SUMMARY | ~2019-10-18 | XMS | Encounter Summary ---
Demographics + + + | Address | [address] | | | [place] [address] | + + + | Home Phone | | + + + | Preferred Language | Unknown | + + + | Marital Status | | + + + | Religion Affiliation | 1027 | + + + | Race | Unknown | + + + | Ethnic Group | Unknown | + + + Author + + + | Author | [facility] | | | and [place] | + + + | Organization | [facility] | | | [...] Team Providers + +------+ + | Care Color Strainer Name | Role | Phone | + [...] + + | 09/01/ | Office | [facility] | Mary Moe ANP | Paroxysmal atrial | | 2019 | Visit | [facility] [place] | [address] | flutter ([facility]) | | | | [address] | [place], [place] | (Primary Dx); PSVT | | | | [place], [place] | [address] | (paroxysmal | | | | [address] | | supraventricular | | | | [phone] | | tachycardia) ([facility]); | | | | | | Cardiac pacemaker in | | | | | | situ; Congestive | | | | | | heart failure, | | | | | | unspecified HF | | | | | | chronicity, | | | | | | unspecified heart | | | | | | failure type ([facility]); | | | | | | Paroxysmal atrial | | | | | | fibrillation ([facility]); | | | | [...] with prolonged AV con duction HR 60, DC 288, QRSD 96, QTC 432 EP PROBLEMS [...] in situ Overview Setrox S-53 cm, model 315951, #[id number] lead was placed into the right ventricle [...] ohms. The leads were attached to a [employer] Etrinsa 8 , model 553749, serial #[id number] pacemaker. FINAL SETTINGS FOR THE DEVICE Mode [...] Last Updated: 09/01/2019 Setrox S-53 cm, model 529917, #[id number] lead was placed into the right ventricle [...] ohms. The leads were attached to a [employer] Etrinsa 8 , model 619827, serial #[id number] pacemaker. FINAL SETTINGS FOR THE DEVICE Mode [...] elsewhere classified (HCC) 09/11/2016 Sick sinus syndrome ([facility]) 06/05/2016 Note Last Updated: 09/01/2019 [...] rate histograms are documented giv en the [facility] rate response algorithm on her Biotronik pacemaker. Trochanteric bursitis of right hip 03/06/2016 Chronic kidney disease, stage III (moderate) ([facility]) 12/06/2015 Paroxysmal atrial flutter ([facility]) 12/06/2015 Hypertension 12/06/2015 Note [...] her. INR is managed by [facility] at [facility] and most recently was 2.1 on 07/29/2019 [...] ONCE DAILY OR DIRECTED BY Bigg [facility], Disp: , Rfl: warfarin (COUMADIN) 6 MG [...] 12.8 oz) | SpO2 98% | B NV 26.23 kg/m Physical Exam Constitutional: She is [...] notes on file Brittani Ga Medic al Circus Artist - 09/01/2019 1:45 PM Debbie CHRISTIANSEN Note- [...] | | | | | | [place] [address] | | | | | | [phone] | | | | | | | [...] | | | | | tachycardia) ([facility]) | | + +--------+ + [...] | | | | | by [facility] [place] Read Only, | | | | | | [employer] Junie ([id number]), | | | | | | commercial production editor Kervin Coker | | | | | | ([phone]) on 09/01/2019 | | | | | [...] + | PSVT (paroxysmal supraventricular tachycardia) ([facility]) Paroxysmal supraventricular | | tachycardia | + + | Cardiac pacemaker in situ | + + | Congestive heart failure, unspecified HF chronicity, unspecified heart failure type | | (HCC) | + + | Paroxysmal atrial fibrillation ([facility]) Atrial fibrillation | + + [...]
--- OUTSIDE RECORDS SUMMARY | ~2019-10-18 | XMS | Encounter Summary ---
Demographics + + + | Address | [address] | | | [place] [address] | + + + | Home Phone [...] Team Providers + +------+ + | Care Wave Guide Assembler Name | Role | Phone | [...] | Transcriptions | + + | Interface, Revenue Specialist In - 07/17/2006 3:06 AM PDT | | [place] [address] | | [place], [place] [address] | | [facility] Center[facility] RECORDMed Rec No.: | | [id number] Date: 08/12/2001Name: Guerrero Castillo SURGEON: | | Jayson Mccoy M.D.QUALITY ASSURANCE CLERK SURGEON: Chrissie Koch | | ToriPREOPERATIVE DIAGNOSIS:Left-sided [...] M.D. Jayson Mccoy M.D.MM/x53D: | | 08/12/2001T: 08/13/[id number]: | |otosclerosis. | | | |SPECIMENS REMOVED: [...] | | | | | | | |[id number] | | | |CC: | + + documented in this encounter Visit Diagnoses Not on filedocumented in this encounter"
--- OUTSIDE RECORDS SUMMARY | ~2019-10-18 | XMS | Encounter Summary ---
Demographics + + + | Address | [address] | | | [place] [address] | + + + | Home Phone [...] Providers + +------+ + | Care Assembler Small Products Name | Role | Phone | + [...] | | | | | Procedures | [place], [place] | | | | | | [place] | [address] | | | | | | Joint | Phone: | | | | | | Injection | [phone] | | | | | | Right | Fax: | | | | | | | [phone] | | +--------+--------+ + + + + [...] | | | [place], | [address] | | | | | Trochanteric | [place], | [place], | | | | | bursitis of | PA-C [address] | [place] | | | | | both hips | [address] | [address] | | | | | Lumbar | [place], [place] | Phone: | | | | | radiculopath | [address] | [phone] | | | | | y | Phone: | Fax: | | | | | Procedures | [phone] | [phone] | | | | | [place] | Fax: | | | | | | Joint | [phone] | | | | | | Injection | | | | | | | Left AR | | | | | | | INJECT | | | | | | | ANES/STEROID | | | | | | | FORAMEN | | | | | | | LUMBAR/SACRA | | | | | | | L W IMG | | | | | | | GUIDE ,1 | | | | | | | LEVEL AR | | | | | | [...] | | | | | ADD ON AR | | | | | | [...] | | | | [place] | [address] | | | | | | Joint | Phone: | | | | | | Injection | [phone] | | | | | | Right | Fax: | | | | | | | [phone] | | +--------+--------+ + + + + Encounter Details +--------+ + + + + | Date | Type | Department | Care Team | Description | +--------+ + + + + | 08/05/ | Hospital | [facility] | Christiano, | Trochanteric | | 2017 | Encounter | MED CTR XRAY [address] | GAMALIEL Saucedo [address] | bursitis of both | | | | [place] | [facility], | hips; Spinal | | | | [place] [address] | [place] [address]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 | [place] | [phone] | | [facility] | | [address] | | | - IMAGING | | [...] [address] | [place] | [phone] | | [facility] | | [address] | | | - IMAGING | | [...]
--- OUTSIDE RECORDS SUMMARY | ~2019-10-18 | XMS | Encounter Summary ---
Demographics + + + | Address | [address] | | | [place] [address] | + + + | Home Phone [...] Team Providers + +------+ + | Care Molding Manager Name | Role | Phone | [...] | | | [place], | [address] | | | | | Trochanteric | [place], | [place], | | | | | bursitis of | PA-C [address] | [place] | | | | | both hips | [address] | [address] | | | | | Procedures | [place] | Phone: | | | | | [place] | [address] | [phone] | | | | | Major Joint | Phone: | Fax: | | | | | Right CHG | [phone] | [phone] | | | | | FLUOROSCOPIC | Fax: | | | | | | GUIDANCE | [phone] | | | | | | NEEDLE [...] | Lumbar | [place], | [address] | | | | | radiculopath | Nilson T, MD | [place], | | | | | y | [address] | [place] | | | | | Trochanteric | [place] | [address] | | | | | bursitis of | [place], [place] | Phone: | | | | | both hips | [address] | [phone] | | | | | Procedures | Phone: | Fax: | | | | | [place] | [phone] | [phone] | | | | | ARTHROCENTES | Fax: | | | | | | IS | [phone] | | | | | | ASPIR&/INJ [...] | | | | | | | [place] INJECT | | | | | | [...] + + | 11/06/ | Hospital | [facility] | Annikadanowicz, | Lumbar | | 2018 | Encounter | MED CTR XRAY [address] | G[address] Saucedo [address] | radiculopathy; | | | | [place] | [facility], | 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
--- OUTSIDE RECORDS SUMMARY | ~2019-10-18 | XMS | Encounter Summary ---
Demographics + + + | Address | [address] | | | [place] [address] | + + + | Home Phone [...] Team Providers + +------+ + | Care Back Order Clerk Name | Role | Phone | [...] | Lumbar | [place], | [address] | | | | | radiculopath | Nilson Jensen MD | [place], | | | | | y | [address] | [place] | | | | | Procedures | [place] | [address] | | | | | AR INJECT | [place], [place] | Phone: | | | | | ANES/STEROID | [address] | [phone] | | | | | FORAMEN | Phone: | Fax: | | | | | LUMBAR/SACRA | [phone] | [phone] | | | | | L W IMG | Fax: | | | | | | GUIDE ,1 | [phone] | | | | | | LEVEL [...] + | 05/01/ | Hospital | 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
--- OUTSIDE RECORDS SUMMARY | ~2019-10-18 | XMS | Encounter Summary ---
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 Yong Pena in [place], use of hydrocodone 3x/day and flexeril. Patient's [...] has no apparent deficits with short or tank terminal gauger memory. She has appropriate fund of knowledge [...] | | | | | | [place] [address] | | | | | | [phone] | | | | | | | [...]
--- OUTSIDE RECORDS SUMMARY | ~2019-10-18 | XMS | Encounter Summary ---
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 Yong Pena in [place], use of hydrocodone 3x/day and flexeril. Patient's [...] | | | | | | [place] [address] | | | | | | [phone] | | | | | | | [...]
--- OUTSIDE RECORDS SUMMARY | ~2019-10-18 | XMS | Encounter Summary ---
Demographics + + + | Address | [address] | | | [place] [address] | + + + | Home Phone [...] Team Providers + +------+ + | Care Software Quality Test Engineer Name | Role | Phone | + +------+ + | Jesus Mijares MD | PCP | | + +------+ + Encounter Details +--------+ + + + + | Date | Type | Department | Care Team | Description | +--------+ + + + + | 03/11/ | Orders Only | [facility] | Rajendra Fowler, | | | 2017 | | CARDIOLOGY [place] | [address] | | | | | [address] | [place], | | | | | [place] | [place] [address] | | | | | [address] | [phone] | | | | | [phone] | | | +--------+ + + + [...] | | | | | | [place] [address] | | | | | | [phone] | | | | | | | [...]
--- OUTSIDE RECORDS SUMMARY | ~2019-10-18 | XMS | Encounter Summary ---
Demographics + + + | Address | [address] | | | [place] [address] | + + + | Home Phone | | + + + | Preferred Language | Unknown | + + + | Marital Status | | + + + | Nondenominational Affiliation | Unknown | + + + | Race | White | + + + | Ethnic Group | Not or | + + + Author + + + | Author | [facility] | + + + | Organization | [facility] | + + + | Address [...] Team Providers + +------+ + | Care Hookman Name | Role | Phone | + [...] as of this encounter Progress Notes Interface, Back End Web Developer In - 07/17/2006 3:06 AM PDTCLINIC DATE: [...] morning. Jayson Mccoy M.D. SHAJI / CHARY [id number] / [id number] / [id number] / [id number] signed by Interface, Back End Web Developer In at 07/17/2006 3:06 AM PDTdoc umented in this encounter Plan of Treatment Not on filedocumented as of this encounter Visit Diagnoses Not on filedocumented in this encounter"
--- OUTSIDE RECORDS SUMMARY | ~2019-10-18 | XMS | Encounter Summary ---
Demographics + + + | Address | [address] | | | [place] [address] | + + + | Home Phone [...] Team Providers + +------+ + | Care Professional Housing Consultant Name | Role | Phone | [...] Thoracic or | [place], | [address] | | | | | lumbosacral | Nilson Jensen MD | [place], | | | | | neuritis or | [address] | [place] | | | | | | [place] | [address] | | | | | radiculitis, | [place], [place] | Phone: | | | | | unspecified | [address] | [phone] | | | | | Procedures | Phone: | Fax: | | | | | [place] INJECT | [phone] | [phone] | | | | | ANES/STEROID | Fax: | | | | | | FORAMEN | [phone] | | | | | | LUMBAR/SACRA | | | | | | | L W IMG | | | | | | | GUIDE ,1 | | | | | | | LEVEL AL | | | | | | [...] + + | 12/09/ | Hospital | [facility] | Nilson Chaudhry | Bilateral lumbar | | 2014 | Encounter | MED CTR XRAY [address] | TMD [address] | radiculopathy | | | | [place] | [facility] [place] | (Primary Dx); | | | | [place] [address] | [address] | Thoracic or | | | | [phone] | | lumbosacral neuritis | | | | | Clinical Asst, [facility] | or radiculitis, | | | [...] | | | | | | [place] [address] | | | | | | [phone] | | | | | | | [...] radiculopathy ICD-9 Code 724.4 Rebecca Lua | [facility] | | Jonathan presents to the fluoroscopy suite for fluoroscopically-guided | [facility] | | bilateral L4-L5 transforaminal epidural [...] + + + + + | [facility] | [address] | [place], [place] | [phone] | | [facility] | | [address] | | | - IMAGING | | [...]
--- OUTSIDE RECORDS SUMMARY | ~2019-10-18 | XMS | Encounter Summary ---
Demographics + + + | Address | [address] | | | [place] [address] | + + + | Home Phone | | + + + | Preferred Language | Unknown | + + + | Marital Status | | + + + | Voodoo Affiliation | Unknown | + + + | Race | White | + + + | Ethnic Group | Not or | + + + Author + + + | Author | [facility] | + + + | Organization | [facility] | + + + | [...] Providers + +------+ + | Care Director Records Management Name | Role | Phone | + [...] as of this encounter Progress Notes Interface, Hcc Coders In - 07/17/2006 3:06 AM PDTCLINIC DATE: [...] surgery. Jayson Mccoy M.D. SHAJI / CHARY [id number] / [id number] / [id number] / [id number] signed by Interface, Hcc Coders In at 07/17/2006 3:06 AM PDTdocume nted in this encounter Plan of Treatment Not on filedocumented as of this encounter Visit Diagnoses Not on filedocumented in this encounter"
--- OUTSIDE RECORDS SUMMARY | ~2019-10-18 | XMS | Encounter Summary ---
Demographics + + + | Address | [address] | | | [place] [address] | + + + | Home Phone [...] Team Providers + +------+ + | Care Apartment Maintenance Technician Name | Role | Phone | + +------+ + | Jesus Mijares MD | PCP | | + +------+ + Encounter Details +--------+ + + + + | Date | Type | Department | Care Team | Description | +--------+ + + + + | 05/14/ | Orders Only | [facility] | Conversion | | | 2017 | | NEPHROLOGY [place] | Transaction, | | | | | [address] | Provider Unknown | | | | | [address] [facility] [place] | | | | | | [address] | (Fax) | | | | | [phone] | | | +--------+ + + + [...] | | | | | | [place] [address] | | | | | | [phone] | | | | | | | [...]
--- OUTSIDE RECORDS SUMMARY | ~2019-10-18 | XMS | Encounter Summary ---
Demographics + + + | Address | [address] | | | [place] [address] | + + + | Home Phone | | + + + | Preferred Language | Unknown | + + + | Marital Status | | + + + | Hinduism Affiliation | Unknown | + + + | Race | White | + + + | Ethnic Group | Not or | + + + Author + + + | Author | [facility] | + + + | Organization | [facility] | + + + | [...] Team Providers + +------+ + | Care Sweep Molder Name | Role | Phone | + [...] as of this encounter Progress Notes Interface, Candy Spreader In - 07/17/2006 3:06 AM PDTCLINIC DATE: [...] morning. Jayson Mccoy M.D. SHAJI / CHARY [id number] / [id number] / [id number] / [id number] signed by Interface, Candy Spreader In at 07/17/2006 3:06 AM PDTdoc umented in this encounter Plan of Treatment Not on filedocumented as of this encounter Visit Diagnoses Not on filedocumented in this encounter"
--- OUTSIDE RECORDS SUMMARY | ~2019-10-18 | XMS | Encounter Summary ---
Demographics + + + | Address | [address] | | | [place] [address] | + + + | Home Phone [...] Team Providers + +------+ + | Care Dross Skimmer Name | Role | Phone | + [...] + + | 12/01/ | Office | [facility] | Capo Bermudez, | Lumbar radiculopathy | | 2019 | Visit | PHYSIATRY [address] | PA-C [address] | (Primary Dx); | | | | [place], | [address] [place] | Trochanteric | | | | [place] [address] | [place] [address] | bursitis of right | | | | [phone] | [phone] | hip; Subacromial | | | | [...] press against a nerve. Date Last Reviewed: 12/12/201719999751-2787 [employer]. [address] [place] [address]. All righ ts reserved. This information is [...] in [address] Yong Pena in [place], use of hydrocodone 3 x/day and flexeril, [...] has no apparent deficits with short or eating disorder specialist memory. She has appropriate fund of knowledge [...] PT (multiple sessions over the years) and med care manager. Unfortunately she continue s to [...] | | | | | | [place] [address] | | | | | | [phone] | | | | | | | [...]
--- OUTSIDE RECORDS SUMMARY | ~2019-10-18 | XMS | Encounter Summary ---
Demographics + + + | Address | [address] | | | [place] [address] | + + + | Home Phone [...] Team Providers + +------+ + | Care Horologist Name | Role | Phone | + +------+ + | Jesus Mijares MD | PCP | | + +------+ + Encounter Details +--------+ + + + + | Date | Type | Department | Care Team | Description | +--------+ + + + + | 03/30/ | Hospital | [facility] | Capo Bermudez, | Chronic left | | 2019 | Encounter | MED CTR SUE XRAY | PA-C [address] | shoulder pain | | | | [address] [place] | [address] [place] | | | | | [place], [place] | [place] [address] | | | | | [address] | [phone] | | | | | [phone] | | | +--------+ + + + [...] | | | | | | [place] [address] | | | | | | [phone] | | | | | | | [...]
--- OUTSIDE RECORDS SUMMARY | ~2019-10-18 | XMS | Encounter Summary ---
Demographics + + + | Address | [address] | | | [place] [address] | + + + | Home Phone [...] Providers + +------+ + | Care Customer Engineering Specialist Name | Role | Phone | + +------+ + | Jesus Mijares MD | PCP | | + +------+ + Encounter Details +--------+ + + + + | Date | Type | Department | Care Team | Description | +--------+ + + + + | 07/16/ | Orders Only | [facility] | Conversion | | | 2015 | | NEPRHOLOGY [place] | Transaction, | | | | | [address] | Provider Unknown | | | | | [address] [place], [place] | [phone] | | | | | [address] | | | | | | [phone] | | | +--------+ + + + [...] | | | | | | [place] [address] | | | | | | [phone] | | | | | | | [...] | | | LAB | | | [place] | | | | | + + [...]
--- OUTSIDE RECORDS SUMMARY | ~2019-10-18 | XMS | Encounter Summary ---
Demographics + + + | Address | [address] | | | [place] [address] | + + + | Home Phone [...] Team Providers + +------+ + | Care Property Economist Name | Role | Phone | + +------+ + | Jesus Mijraes MD | PCP | | + +------+ + Encounter Details +--------+ + + + + | Date | Type | Department | Care Team | Description | +--------+ + + + + | 03/20/ | Hospital | [facility] | Conversion | Paroxysmal atrial | | 2017 | Encounter | [facility] | Transaction, | fibrillation ([facility]); | | | | CARE FLOOR [address] | Provider Unknown | SSS (sick sinus | | | | [address] | [phone] | syndrome) ([facility]); | | | | [place], [place] | | Snoring; | | | | [address] | Chuy Valverde MD | Gastroesophageal | | | | [phone] | [address] | reflux disease, | | | | | [place], [place] | esophagitis presence | | | | | [address] | not specified; | | | | [...] 03/20/171626 Date of Service: 03/20/171625 Status: Signed Pipeline Dispatch Operator: Carley Lee RN (Registered Nurse) Discharge instructions [...] | | | | | | [place] [address] | | | | | | [phone] | | | | | | | [...] the | | | usual manner. A 7-Cymro introducer was placed into the subclavian | | | vein and through that, a Setrox S-53 cm, model 816665, #[id number] lead | | | was placed into [...] anchored with two #1 Ethibond sutures. Another 7-Cymro | | | introducer was placed into the subclavian vein and through that, a | | | eCommHubtronic model 5076-45 cm lead was placed into [...] | | | Etrinsa 8 , model 241502, serial #[id number] pacemaker. That | | | device was [...] | electrocautery in the usual manner. A 7-Cymro introducer was placed into | | the subclavian vein and through that, a [employer] S-53 cm, model 963245, | | #[id number] lead was placed into the right ventricle [...] Ethibond sutures. | | | | Another 7-Cymro introducer was placed into the subclavian vein and through | | that, a Focus IP model 5076-45 cm lead was placed into [...] | The leads were attached to a Imonomy InteractiveroniInsign[employer] Health Etrinsa 8 , model 211501, | | serial #[id number] pacemaker. That device was placed into the [...] | | | PCRAbnormal Testing performed at [facility] [place] [address];[place] [address] | | + + + + +---------+ [...]
--- OUTSIDE RECORDS SUMMARY | ~2019-10-18 | XMS | Encounter Summary ---
Demographics + + + | Address | [address] | | | [place] [address] | + + + | Home Phone [...] Team Providers + +------+ + | Care Dictating Machine Mechanic Name | Role | Phone | [...] + + | 12/01/ | Office | [facility] | Capo Bermudez, | Lumbar radiculopathy | | 2019 | Visit | [address]SIATRY [address] | PA-C [address] | (Primary Dx); | | | | [place], | [address] | Trochanteric | | | | [place] [address] | [place] [address] | bursitis of right | | | | [phone] | [phone] | hip; Subacromial | | | | [...] press against a nerve. Date Last Reviewed: 12/12/201719999828-1595 The [email or web address]. [address] [place] [address]. All righ ts reserved. This information is [...] in [address] Yong Pena in [place], use of hydrocodone 3 x/day and flexeril, [...] has no apparent deficits with short or keno terminal operator memory. She has appropriate fund [...] sessions over the years) and ocular care technician. Unfortunately she continue s to have significant [...] | | | | | | [place] [address] | | | | | | [phone] | | | | | | | [...]
--- OUTSIDE RECORDS SUMMARY | ~2019-10-18 | XMS | Encounter Summary ---
Demographics + + + | Address | [address] | | | [place] [address] | + + + | Home Phone | | + + + | Preferred Language | Unknown | + + + | Marital Status | | + + + | Anglican Affiliation | 1027 | + + + | Race | Unknown | + + + | Ethnic Group | Unknown | + + + Author + + + | Author | [facility] | | | and [place] | + + + | Organization | [facility] | | [...] Providers + +------+ + | Care Medical Collections Specialist Name | Role | Phone | [...] + + | 03/06/ | Office | [facility] | Christiano, | Spinal stenosis of | | 2015 | Visit | [address]YSIATRY [address] | [address] | lumbar region - | | | | [place], | [facility], | L3/L4, adjacent | | | | [place] [address] | [place] [address] | segment disease | | | | [phone] | [phone] | (Primary Dx); | | | | [...] of the procedure you must provide a local owner operator truck driver to take you home. For [...] in [address] Yong Pena in [place], use of hydrocodone 3 x/day and flexeril, [...] has no apparent deficits with short or mcfp memory. 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 Unfortunately she cont inues to have [...] | | | | | [place], | | | | | | [place] [address] | | | | | | [phone] | | | | | | | [...] Bursa Injection on Right Diagnosis: Lumbar | [facility] | | radiculopathy and Trochanteric bursitis ICD-10 Codes M54.16 and | [facility] | | M70.61 Rebecca Castillo presents to [...] + + | Performing | Address | City/State/[facility] | Phone Number | | Organization | | | | + + + + + | [address] | [address] | [place] | [phone] | | [facility] | | [address] | | | - IMAGING | | [...] and | [facility] | | M70.61 Rebecca Castillo presents to [...] + | [facility] [facility] | [address] [place] [address] | [place], [place] | [phone] | | [facility] | | [address] | | | - IMAGING | | [...]
--- OUTSIDE RECORDS SUMMARY | ~2019-10-18 | XMS | Encounter Summary ---
Demographics + + + | Address | [address] | | | [place] [address] | + + + | Home Phone [...] Team Providers + +------+ + | Care Mannequin Maker Name | Role | Phone | [...] + + | 05/01/ | Office | [facility] | [place], | Chronic bilateral | | 2018 | Visit | [address]YSIATRY [address] | [address] Sauced[address] | low back pain with | | | | [place], | [address] [place], | sciatica, sciatica | | | | [place] [address] | [place] [address] | laterality | | | | [phone] | [phone] | unspecified (Primary | | | | [...] | | | | | ([facility]); Trochanteric | | | | | [...] fusion of L4/L5 in [address] Ynog Pena in [place], use of hydrocodone 3 x/day and flexeril, [...] PT (multiple sessions over the years) and nursing care partner. Unfortunately she continue s to have significant [...] | | | | | | [place] [address] | | | | | | [phone] | | | | | | | [...]
--- OUTSIDE RECORDS SUMMARY | ~2019-10-18 | XMS | Encounter Summary ---
Demographics + + + | Address | [address] | | | [place] [address] | + + + | Home Phone [...] + + + | Author | [facility] | + + + | Organization | [facility] | + + + | Address [...] Team Providers + +------+ + | Care Motor Mechanic Name | Role | Phone | [...] as of this encounter Progress Notes Interface, Footwear Sales Representative In - 07/17/2006 3:06 AM PDTCLINIC DATE: [...] morning. Jayson Mccoy M.D. SHAJI / CHARY [id number] / [id number] / [id number] / [id number] signed by Interface, Footwear Sales Representative In at 07/17/2006 3:06 AM PDTdoc umented in this encounter Plan of Treatment Not on filedocumented as of this encounter Visit Diagnoses Not on filedocumented in this encounter"
--- OUTSIDE RECORDS SUMMARY | ~2019-10-18 | XMS | Encounter Summary ---
Demographics + + + | Address | [address] | | | [place] [address] | + + + | Home Phone | | + + + | Preferred Language | Unknown | + + + | Marital Status | | + + + | Cheondoism Affiliation | 1027 | + + + | Race | Unknown | + + + | Ethnic Group | Unknown | + + + Author + + + | Author | [facility] | | | and [place] | + + + | Organization | [facility] | | | [...] Team Providers + +------+ + | Care Process Tank Tender Name | Role | Phone | [...] + + | 07/09/ | Telephone | [facility] | [place], | Follow-up (post | | 2017 | | [address]SIATRY [address] | [address] | bilateral L4-L5 | | | | [place], | [place], | TFESI on 04/29/17) | | | | [place] [address] | [place] [address] | | | | | [phone] | [phone] | | | | | | | [...] [place], | | | | | | [place] [address] | | | | | | [phone] | | | | | | | [...]
--- OUTSIDE RECORDS SUMMARY | ~2019-10-18 | XMS | Encounter Summary ---
Demographics + + + | Address | [address] | | | [place] [address] | + + + | Home Phone | | + + + | Preferred Language | Unknown | + + + | Marital Status | | + + + | Jehovah'S Witness Affiliation | Unknown | + + + [...] Team Providers + +------+ + | Care Weatherization Operations Manager Name | Role | Phone [...] | Transcriptions | + + | Interface, Certified Lactation Counselor In - 07/17/2006 3:06 AM PDT | | [place] [address] | | [place], [place] [address] | | [facility] Center[facility] RECORDMed Rec No.: | | [id number] Date: 08/12/2001Name: Guerrero Castillo SURGEON: | | Jayson Mccoy M.D.STREET OPENINGS INSPECTOR SURGEON: Chrissie Koch | | ToriPREOPERATIVE DIAGNOSIS:Left-sided [...] M.D. Jayson Mccoy M.D.MM/x53D: | | 08/12/2001T: 08/13/[id number]: | |otosclerosis. | | | |SPECIMENS REMOVED: [...] | | | | | | | |[id number] | | | |CC: | + + documented in this encounter Visit Diagnoses Not on filedocumented in this encounter"
--- OUTSIDE RECORDS SUMMARY | ~2019-10-18 | XMS | Encounter Summary ---
Demographics + + + | Address | [address] | | | [place] [address] | + + + | Home Phone [...] Team Providers + +------+ + | Care Business Mail Entry Clerk Name | Role | Phone | [...] + + | 07/14/ | Office | [facility] | Rajendra Fowler, | Sick sinus syndrome | | 2019 | Visit | CARDIOLOGY [place] | MD [address] | ([facility]) (Primary Dx); | | | | [address] | [place], | Cardiac pacemaker in | | | | [address] | [place] [address] | situ; Chronic | | | | [place], [place] | [phone] | diastolic heart | | | | [address] | | failure ([facility]); | | | | [phone] | | Paroxysmal atrial | | | | | | fibrillation ([facility]); | | | | | | Paroxysmal atrial | | | | | | flutter ([facility]); PSVT | | | | | | (paroxysmal | | | | | | supraventricular | | | | | | tachycardia) ([facility]); | | | | | [...] the newer oral anticoagulants, followed at the [facility] to monitor her INR for paroxysmal atrial fibrillation and atrial flutter, which she noted today, but it seems to have settled down and she appears to be in sinus rhythm or paced on examination at this time. 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 by EKG in 2002, with a [...] Implantation (03/20/17): [employer] Etrinsa 8 , model 722203,[id number]; RV Lead - Setrox S-53 cm, model 442760, s#[id number] (in the RV septum, [facility] between the ape x and RVOT); RA [...] syndrome, bilateral 01/26/2013 CHF (congestive heart failure) ([facility]) 07/31/2018 Chronic back pain 06/24/2014 Chronic kidney disease 11/2015 Stage 3 Depression 03/20/2017 Diabetes mellitus ([facility]) Facet arthritis of lumbar region 03/06/2013 GERD (gastroesophageal reflux disease) Hyperlipidemia 03/28/2015 Hypertension Irregular heartbeat Lumbar scoliosis 08/09/2014 Migraine headache Myocardial infarction ([facility]) Neuropathy Nontraumatic tear of right supraspinatus tendon 01/03/2018 Sacroiliitis, not elsewhere classified ([facility]) 09/11/2016 Trochanteric bursitis of right [...] BY MOUTH ONCE DAILY OR DIRECTED BY [facility] warfarin (COUMADIN) 6 MG tablet Take 6 [...] | | | | | | [place] [address] | | | | | | [phone] | | | | | | | [...] | + + | Paroxysmal atrial fibrillation ([facility]) Atrial fibrillation | + + | Paroxysmal atrial flutter ([facility]) Atrial flutter | + + | PSVT (paroxysmal supraventricular tachycardia) ([facility]) Paroxysmal supraventricular | | tachycardia [...]
--- OUTSIDE RECORDS SUMMARY | ~2019-10-18 | XMS | Encounter Summary ---
Demographics + + + | Address | [address] | | | [place] [address] | + + + | Home Phone [...] Team Providers + +------+ + | Care Crane Hoist Or Lift Operator Name | Role | Phone | + +------+ + | Jesus Mijares MD | PCP | | + +------+ + Encounter Details +--------+ + + + + | Date | Type | Department | Care Team | Description | +--------+ + + + + | 04/25/ | Orders Only | [facility] | Rajendra Fowler, | | | 2016 | | CARDIOLOGY [place] | [address] | | | | | [address] | [place], | | | | | [address] [facility] [address] | [place] [address] | | | | | [address] | [phone] | | | | | [phone] | | | +--------+ + + + [...] | | | | | | [place] [address] | | | | | | [phone] | | | | | | | [...]
--- OUTSIDE RECORDS SUMMARY | ~2019-10-18 | XMS | Clinical Summary ---
Demographics + + + | Address | [address] | | | [place] [address] | + + + | Home Phone | | + + + | Preferred Language | Unknown | + + + | Marital Status | | + + + | Worship Affiliation | Unknown | + + + | Race | White | + + + | Ethnic Group | Not or | + + + Author + + + | Author | [facility] | + + + | Organization | [facility] | + + [...] Team Providers + +------+ + | Care Switchboard Clerk Name | Role | Phone | + +------+ + PCP | Unavailable | + +------+ + Source Comments [facility] is fully live on both [facility] and [facility] Allergies Not on File Medications Not [...]
--- OUTSIDE RECORDS SUMMARY | ~2019-10-18 | XMS | Encounter Summary ---
Demographics + + + | Address | [address] | | | [place] [address] | + + + | Home Phone [...] Providers + +------+ + | Care Furnace Repairer Name | Role | Phone | [...] | syndrome of | [address] | [facility] | | | | | both | [address] | [place], | | | | | shoulders | [place], | [place] | | | | | Chronic left | [place] [address] | [address] | | | | | shoulder | Phone: | Phone: | | | | | pain | [phone] | [phone] | | | | | | Fax: | Fax: | | | | | | [phone] | [phone] | + + + + + + + Reason for Visit + + + | Reason | Comments | + + + | Follow-up | Same Day Injection: BILATERAL L4/L5 TFESI | + + + Encounter Details +--------+---------+ + + + | Date | Type | Department | Care Team | Description | +--------+---------+ + + + | 03/03/ | Office | [facility] | Capo Bermudez, | Lumbar radiculopathy | | 2019 | Visit | [address]SIATRY [address] | PA-C [address] | (Primary Dx); | | | | [place], | [address] [place] | 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 Date Last Reviewed: 12/12/201719992502-3145 [employer]. [address] [place] [address]. All righ ts reserved. This information is [...] in [address] Yong Pena in [place], use of hydrocodone 3 x/day and flexeril, [...] no apparent deficits with short or termite renewal inspector memory. She has appropriate fund of [...] PT (multiple sessions over the years) and memory care program resident. Unfortunately she continue s to have significant [...] | | | | | | [place] [address] | | | | | | [phone] | | | | | | | [...]
--- OUTSIDE RECORDS SUMMARY | ~2019-10-18 | XMS | Encounter Summary ---
Demographics + + + | Address | [address] | | | [place] [address] | + + + | Home Phone [...] Providers + +------+ + | Care Engineering Research Manager Name | Role | Phone | + +------+ + | Jesus Mijares MD | PCP | | + +------+ + Encounter Details +--------+ + + + + | Date | Type | Department | Care Team | Description | +--------+ + + + + | 03/14/ | Orders Only | [facility] | Conversion | | | 2016 | | NEPRHOLOGY [place] | Transaction, | | | | | [address] | Provider Unknown | | | | | [address] [place], [place] | [phone] | | | | | [address] | | | | | | [phone] | | | +--------+ + + + [...] | | | | | | [place] [address] | | | | | | [phone] | | | | | | | [...]
--- OUTSIDE RECORDS SUMMARY | ~2019-10-18 | XMS | Encounter Summary ---
Demographics + + + | Address | [address] | | | [place] [address] | + + + | Home Phone [...] Providers + +------+ + | Care Director Athletic Name | Role | Phone | + [...] | Acute pain | [place], | [address] | | | | | of right | Nilson Jensen MD | [place], | | | | | shoulder | [address] | [place] [address] | | | | | Procedures | [place] | Phone: | | | | | CT | [place], [place] | [phone] | | | | | Arthrogram | [address] | Fax: | | | | | Shoulder | Phone: | [phone] | | | | | Right | [phone] | | | | | | Called 1x | Fax: | | | | | | | [phone] | | +--------+--------+ + + + + [...] | Acute pain | [place], | [address] | | | | | of right | Nilson Jensen MD | [place], | | | | | shoulder | [address] | [place] [address] | | | | | Procedures | [address] [place] | Phone: | | | | | CT | [place], [place] | [phone] | | | | | Arthrogram | [address] | Fax: | | | | | Shoulder | Phone: | [phone] | | | | | Right | [phone] | | | | | | Called 1x | Fax: | | | | | | | [phone] | | +--------+--------+ + + + + Encounter Details +--------+ + + + + | Date | Type | Department | Care Team | Description | +--------+ + + + + | 12/03/ | Hospital | [facility] | Nilson Chaudhry | Acute pain of right | | 2018 | Encounter | [facility] [address] Jensen MD [address] | shoulder | | | | [place], | [place], [place] | | | | | [place] [address] | [address] | | | | | [phone] | | | +--------+ + + + [...] | | | | | | [place] [address] | | | | | | [phone] | | | | | | | [...]
--- OUTSIDE RECORDS SUMMARY | ~2019-10-18 | XMS | Encounter Summary ---
Demographics + + + | Address | [address] | | | [place] [address] | + + + | Home Phone [...] Team Providers + +------+ + | Care Choir Director Name | Role | Phone | [...] + + | 08/09/ | Office | [facility] | Christiano, | Lumbar radiculopathy | | 2013 | Visit | [address]SIATRY [address] | [address] | (Primary Dx); | | | | [place], | [place] [facility], | Spinal stenosis [place] | | | | [place] [address] | [place] [address] | lumbar region - | | | | [phone] | [phone] | L3/L4, adjacent | | | | [...] the procedure you must provide a driver material handler to take you home. For all procedur [...] L4/L5 performed [address] Dr. Yong Pena in [place], use of hydrocodone 3x/day and flexeril. Patient's [...] no apparent deficits with short or senior living memory. She has appropriate fund of knowledge [...] | | | | | | [place] [address] | | | | | | [phone] | | | | | | | [...] radiculopathy ICD-9 Code 724.4 Rebecca Lua | [facility] | | Jonathan presents to the fluoroscopy suite for fluoroscopically-guided [facility] | | bilateral L4-L5 transforaminal epidural [...] [address] | [place] | [phone] | | [facility] | | [address] | | | - IMAGING | | [...]
--- OUTSIDE RECORDS SUMMARY | ~2019-10-18 | XMS | Encounter Summary ---
Demographics + + + | Address | [address] | | | [place] [address] | + + + | Home Phone | | + + + | Preferred Language | Unknown | + + + | Marital Status | | + + + | Mandaeism Affiliation | 1027 | + + + | Race | Unknown | + + + | Ethnic Group | Unknown | + + + Author + + + | Author | [facility] | | | and [place] | + + + | Organization | [facility] | | | [...] Team Providers + +------+ + | Care Editor In Chief Name | Role | Phone | + [...] 2015 | | PHYSIATRY [address] | CLINICAL RESEARCH ASSISTANT | lumbosacral neuritis | | | | [place], | | or radiculitis, | | | | [place] [address] | | unspecified (Primary | | | | [phone] | | Dx) | +--------+ + + [...] | | | | | | [place] [address] | | | | | | [phone] | | | | | | | [...] to the fluoroscopy suite for fluoroscopically-guided [facility] | | bilateral L4-L5 transforaminal epidural [...] + | [address] | [address] | [place], [place] | [phone] | | [facility] | | [address] | | | - IMAGING | | | | + + + + + documented in this encounter Visit Diagnoses + + | Diagnosis | + + | Thoracic or lumbosacral neuritis or radiculitis, unspecified - Primary | + + documented in this encounter"
--- OUTSIDE RECORDS SUMMARY | ~2019-10-18 | XMS | Encounter Summary ---
Demographics + + + | Address | [address] | | | [place] [address] | + + + | Home Phone [...] Team Providers + +------+ + | Care Roll Finisher Name | Role | Phone | [...] + + | 03/06/ | Office | [facility] | Christiano, | Spinal stenosis of | | 2015 | Visit | [address]YSIATRY [address] | [address] | lumbar region - | | | | [place], | [facility], | L3/L4, adjacent | | | | [place] [address] | [place] [address] | segment disease | | | | [phone] | [phone] | (Primary Dx); | | | | [...] of the procedure you must provide a class c truck driver to take you home. For [...] in [address] Yong Pena in [place], use of hydrocodone 3 x/day and flexeril, [...] PT (multiple sessions over the years) and hospice care transitions coordinator. Unfortunately she cont inues to have significant [...] | | | | | [place], | | | | | | [place] [address] | | | | | | [phone] | | | | | | | [...] Bursa Injection on Right Diagnosis: Lumbar | [facility] | | radiculopathy and Trochanteric bursitis ICD-10 Codes M54.16 and | [facility] | | M70.61 Rebecca Castillo [...] + | Performing | Address | City/State[facility] | Phone Number | | Organization | | | | + + + + + | [address] | [address] | [place] | [phone] | | [facility] | | [address] | | | - IMAGING | | [...] Trochanteric bursitis ICD-10 Codes M54.16 and | [facility] | | M70.61 Rebecca Castillo [...] + | [facility] [facility] | [address] | [place], [place] | [phone] | | [facility] | | [address] | | | - IMAGING | | [...]
--- OUTSIDE RECORDS SUMMARY | ~2019-10-18 | XMS | Encounter Summary ---
Demographics + + + | Address | [address] | | | [place] [address] | + + + | Home Phone [...] Providers + +------+ + | Care Order Dispatcher Chief Name | Role | Phone | [...] + + | 12/06/ | Office | [facility] | [place], | Spinal stenosis of | | 2016 | Visit | PHYSIATRY [address] | GAMALIEL Saucedo [address] | lumbar region - | | | | [place], | [facility], | L3/L4, adjacent | | | | [place] [address] | [place] [address] | segment disease | | | | [phone] | [phone] | (Primary Dx); Lumbar | | | [...] of the procedure you must provide a wheelchair driver to take you home. For all [...] in [address] Yong Pena in [place], use of hydrocodone 3 x/day and flexeril, [...] has no apparent deficits with short or buttermilk drier operator memory. She has appropriate fund of [...] sessions over the years) and resident care associate. Unfortunately she cont inues to have [...] | | | | | | [place] [id number] | | | | | | [phone] | | | | | | | [...] Castillo presents to the fluoroscopy suite for [facility] | | fluoroscopically-guided bilateral L4-L5 transforaminal [...] + + + + + | [address] | [address] | [address] | [phone] | | [facility] | | [address] | | | - IMAGING | | [...]
--- OUTSIDE RECORDS SUMMARY | ~2019-10-18 | XMS | Encounter Summary ---
Demographics + + + | Address | [address] | | | [place] [address] | + + + | Home Phone [...] Team Providers + +------+ + | Care Top Lift Trimmer Name | Role | Phone | [...] [address] | | | | | [place] | [address] | [address], | | | | | [place] | [place], [place] | [place] [address] | | | | | [place] | [address] | Phone: | | | | | ASPIR&/INJ | Phone: | [phone] | | | | | MAJOR | [phone] | Fax: | | | | | NAYE/MADI W/O | Fax: | [phone] | | | | | [place] | [phone] | | | | | | Shoulder [...] | shoulder (Primary | | | | [place], | [address], | Dx); Nontraumatic | | | | [place] [address] | [place] [id number] | tear of right | | | | [phone] | [phone] | supraspinatus tendon | | | | [...] | | | | | | [place] [id number] | | | | | | [phone] | | | | | | | [...]
--- OUTSIDE RECORDS SUMMARY | ~2019-10-18 | XMS | Clinical Summary ---
Demographics + + + | Address | [address] | | | [place] [address] | + + + | Home Phone | | + + + | Preferred Language | Unknown | + + + | Marital Status | | + + + | Mosque Affiliation | 1027 | + + + | Race | Unknown | + + + | Ethnic Group | Unknown | + + + Author + + + | Author | [facility] (Historical as of | | | 05-30-19) | + + + | Organization | [facility] (Historical as of | | | 05-30-19) [...] Team Providers + +------+ + | Care Emergency Telecommunications Dispatcher Name | Role | Phone | [...] ---------+ | Overview: Sylvia S-53 cm, model 289377, #[id number] lead was | | placed into the right ventricle and screwed intoposition on the | | septum, midway between the apex and outflow tract. Thefinal | | pacing threshold was 1 V at 0.5 msec, with R waves of 5.9 mV and | | theimpedance was 550 ohms. There was no diaphragmatic pacing at | | 10 V. Geos [employer] model 5076-45 cm lead was placed into [...] ohms. The leads were attached to a [employer] Alaris EtrinTourvia.me 8 | | , model 431187,serial #[id number] pacemaker. FINAL | | SETTINGS FOR THE [...] due to the cost, followed at the [facility] | | clinic to monitor [...] c | | BIOT | | | /[id number] | | Chuy Wills MD | Rhythm [...] | Rhythm | | | | | [address] | | | | | | | | / | | | Manage | | | | | | | | ment | | | | | | + +--------+--------+ +--------+--------+--------+ | Pacer-03/20/2017Implanted: Qty: | Cardia | Chest | BIOTRONIK - | | | | | 1 on 03/20/2017 by Johann, | c | Wall | BIOT | | | /[id number] | | MD Chuy | Rhythm | [...] +------+-------+ + | MEDICARE | MEDICA | [id number] | | | [address] | | | RE | | | | [place] [address] | | | IP-OP | | | | | + +--------+ +------+-------+ + | [facility] | [employer] | [phone] | | | | | | | [...] | Self | [birth year] | Home: | [address] | | | al/Gus | | 1940 | [phone] | [place] | | | margarita | | | [phone] | [address] | + +--------+ +--------+ + +
[~2019-10-18 13:02] MED LIST changes: +LOSARTAN POTASS50 MG PO
--- OUTSIDE RECORDS SUMMARY | 2019-10-18 13:04 | XMS ---
PreManage Notification: SHAVONNE ESTEBAN Security Custodian Supervisor Events No recent Security Events currently on file CRITERIA MET - LEVY CARE PROVIDERS JONATHAN ROBLES Internal Medicine: Cardiovascular Disease Current GERI PHONE: [facility]ilt Miranda PHONE: [phone] Keith has no Care Guidelines for this patient. Madeleine VISIT COUNT (12 MO.) Anjel Vigil TOTAL 3 NOTE: Visits indicate total known visits. ED/UCC VISIT TRACKING (12 MO.) 10/18/2019 13:03 [facility] [place] TYPE: Emergency COMPLAINT: - KNEE PAIN 06/23/2019 14:19 [facility] [place] TYPE: Emergency COMPLAINT: - RIB PAIN, INJURY DIAGNOSES: - FDC (current) use of anticoagulants - Contusion of left front wall of thorax, initial encounter - Hypertensive heart disease with heart failure - Pleurodynia - Allergy status to penicillin - Other remote computer terminal operator (current) drug therapy - Heart failure, unspecified - Old myocardial infarction - Fall same lev from slip/trip w strike agnst oth object, init - Unspecified atrial fibrillation - Allergy status to sulfonamides status 03/07/2019 11:[address] [facility] [place] TYPE: Emergency COMPLAINT: - BLOOD PRESSURE PROBLEM DIAGNOSES: - Chest pain, unspecified - Old myocardial infarction - Essential (primary) hypertension - Hypertensive heart disease with heart failure - Other remote computer terminal operator (current) drug therapy - Allergy status to sulfonamides status - Acquired absence of other specified parts of digestive tract - Acquired absence of both cervix and uterus - Heart failure, unspecified - Paroxysmal atrial fibrillation - termite exterminator (current) use of anticoagulants - Allergy status to penicillin INPATIENT VISIT TRACKING (12 MO.) No inpatient visits to display in this time frame [email or web address]
--- NOTE | 2019-10-18 18:00 | NUR ---
PT ARRIVED TO FLOOR VIA STRETCHER. 2P SLIDE TO BED. REPORTS PAIN 10/10 TO RIGHT KNEE. REFUSING ICE PACK D/T "SPASMS". VITALS TAKEN AND STABLE. ORIENTED TO ROOM. DINNER ORDERED. CALL LIGHT IN REACH.
--- NOTE | 2019-10-18 19:30 | NUR ---
REPORT RECEIVED FROM DAY SHIFT RN. PT SITTING UP IN BED ALERT AND ORIENTED, EATING A TURKEY SANDWICH. RLE ELEVATED. PT DENIES QUESTIONS OR CONCERNS AT THIS TIME. CALL LIGHT IN REACH.
--- NOTE | 2019-10-18 21:30 | NUR ---
ASSESSMENT COMPLETE. PM MEDS GIVEN WITHOUT DIFFICULTY. PT ALERT AND ORIENTED X4. RIGHT KNEE ELEVATED ON PILLOW, EDEMATOUS AND TENDER TO TOUCH. PT STATES PAIN IN RIGHT KNEE IS AN 8/10. BLE EDEMA NOTED. PT WITH TREMORS OF THE HEAD AND UPPER EXTREMITIES. PT UP TO BSC WITH TWO PERSON ASSIST AND FWW, MAX ASSIST. ROSALINE CARE DONE BY STAFF. GAIT UNSTEADY AND WEAK. PT BACK TO BED, SAMMIE FAIR. RLE ELEVATED ON PILLOW. PT REORIENTED TO CALL LIGHT. NO FURTHER NEEDS AT THIS TIME. CALL LIGHT IN REACH.
--- NOTE | 2019-10-18 22:06 | NUR ---
PRIMARY RN SHERIE AND THIS ROUTER OPERATOR RADIAL HELPED PATIENT USE THE BEDSIDE COMMODE. PATIENT IS BACK IN BED. RIGHT LEG ELEVATED. CALL LIGHT IN REACH.
--- NOTE | 2019-10-19 00:03 | NUR ---
PT RESTING IN BED WITH EYES CLOSED, NAD. CALL LIGHT IN REACH.
--- NOTE | 2019-10-19 01:45 | NUR ---
DROP WIRE STRINGER TYRON AND THIS REFRIGERATION LEAD ASSISTED PATIENT USE THE BEDSIDE COMMODE USING WALKER AND GAIT BELT. PATIENT IS BACK IN BED. CALL LIGHT IN REACH. R LEG ELEVATED.
--- NOTE | 2019-10-19 02:07 | NUR ---
MEDICATED WITH PRN FOR 8/10 RIGHT KNEE PAIN. PT IN BED WITH RLE ELEVATED, STATES PAIN INCREASED AFTER USING BSC. NO OTHER REQUESTS AT THIS TIME. CALL LIGHT IN REACH.
--- NOTE | 2019-10-19 04:46 | NUR ---
PT UP TO BSC WITH 2PA AND FWW. ROSALINE CARE DONE. PT BACK TO BED, SAMMIE WELL. GAIT AND STRENGTH IMPROVED. PT STATES SHE IS FEELING STRONGER WELL.
--- NOTE | 2019-10-19 05:12 | NUR ---
PT RESTED WELL. ALERT AND ORIENTED, USES CALL LIGHT APPROPRIATELY. BSC WITH FWW AND 2PA. PAIN FAIRLY WELL CONTROLLED WITH TWO TABS OXYCODONE. RLE ELEVATED. STRENGTH AND GAIT MUCH IMPROVED THROUGH OUT THE NIGHT. VOIDING QS.
--- NOTE | 2019-10-19 05:50 | NUR ---
CALL LIGHT ANSWERED. PT UP TO BSC WITH 2 SBA AND FWW. ROSAILNE CARE DONE. BACK TO BED, SAMMIE WELL. GAIT AND STRENGTH MUCH IMPROVED. LAB IN ROOM.
--- NOTE | 2019-10-19 07:17 | NUR ---
RECIEVED BEDSIDE REPORT FROM JORDI REHMAN. PT IS AWAKE AND ALERT IN BED. COMPLAINING OF PAIN IN RIGHT KNEE, KNEE APPEARS TO BE SWOLLEN. LARGE AREA OF ESCHAR ON LEFT POTTS WITH MILD REDNESS AND WARMTH.
--- NOTE | 2019-10-19 09:01 | NUR ---
ASSISTED PT OFF THE COMODE. PT IS UNSTEADY ON HER FEET, NEEDS WALKER AND ASSISTANCE. PT TOOK PILLS WHOLE, ONE AT A TIME. SHE STATED ONE SENNA "GOT STUCK" IN HER THROAT, BUT WAS ABLE TO CLEAR IT.
--- NOTE | 2019-10-19 09:20 | NUR ---
SPOKE WITH PATIENT IN ROOM. PATIENT LIVES WITH ADULT SON WHO HELPS HER AT HOME. HE CAN HELP WITH ALL HOUSE NEEDS, HE DRIVES HER (SHE DOESN'T DRIVE), PREPARE MEALS, HELP WITH MOBILITY. SHE STATES SHE DOES NOT HAVE HIM HELP HER IN THE BATHROOM OR DRESS HER. SHE DOESN'T WANT HIM TO HELP WITH THIS. SHE HAS A WALKER AT HOME AND USES A CANE. SHE STATES SHE IS GOING TO SEE ABOUT BORROWING A WHEELCHAIR FROM A FRIEND. DISCUSSED SHE CAN BORROW ONE FROM [facility]. SUGGESTED SHE ALSO LOOK INTO BORROWING A TOILET RISER OR FRAME WITH HANDLES. CONTACT INFO GIVEN. SHE STATES SHE IS PLANNING TO DISCHARGE HOME. SHE UNDERSTANDS THAT PT/OT ARE GOING TO WORK WITH HER TODAY. SHE IS NOT SURE ABOUT THE STEPS INTO THE HOME. SHE THINKS SHE IS ABLE TO STAND BETTER TODAY SO COULD GET INTO THE HOME WITH HELP. WE DISCUSSED THAT THERE ARE OPTIONS TO GET HER INTO THE HOME SUCH BORROWING OR RENTING A RAMP, OR USING A LIFT ASSIST FROM THE EMS SYSTEM. EXPLAINED IF SHE NEEDS FURTHER THERAPY SHE COULD GET HOME HEALTH TO COME IN WITH ORDERS FROM HERE AND PCP. SHE STATES SHE WAS HOPING TO GO HOME TODAY BUT HER SON HAS AP[facility] TODAY AND ISN'T SURE IF HE CAN GET EQUIPMENT BEFORE DISCHARGE. DISCUSSED THAT THE DOCTOR HASN'T DECIDED SHE WILL BE DICHARGED TODAY YET EITHER. AGREED WE WOULD WAIT UNTIL THERAPY AND HER ORTHO CONSULT TO SEE WHAT IS NEEDED. QUESTIONS ANSWERED. WILL CONTINUE TO FOLLOW.
[2019-10-19] MEDS ORDERED: WARFARIN SODIUM4 MG PO (09:28)
--- NOTE | 2019-10-19 10:25 | NUR ---
PATIENT IN BED, RN IN ROOM. CALL LIGHT IN REACH. NO FURTHER NEEDS AT THIS TIME.
--- NOTE | 2019-10-19 11:17 | NUR ---
PT UP TO BEDSIDE COMODE. HEAVY ONE PERSON STAND PIVOT TO BSC. BACK IN BED AT THIS TIME.
[2019-10-19] MEDS ORDERED: HAIR, SKIN & N1 EACH PO (12:13)
[2019-10-19] MEDS ORDERED: VITAMIN D32000 UNI1 PO (12:13)
[2019-10-19] MEDS ORDERED: PREVACID 24HR15 MG PO (12:15)
--- NOTE | 2019-10-19 12:17 | NUR ---
Med Rec completed
--- NOTE | 2019-10-19 13:16 | NUR ---
PT HAS BEEN UP TO THE BSC SEVERAL TIMES, VOIDING 200ML EACH TIME. REQUESTED PAIN MEDS FOR 9/10 RIGHT KNEE PAIN. APPLIED ASPERCREAM AND GAVE 10MG OXY PER ORDER.
--- NOTE | 2019-10-19 13:43 | NUR ---
PATIENT SITTING UP IN BED. FRESH WATER GIVEN. CALL LIGHT IN REACH. NO FURTHER NEEDS AT THIS TIME.
--- NOTE | 2019-10-19 16:12 | NUR ---
PT IS READING IN BED. DECLINED MULTIPLE ATTEMPTS TO HAVE HER SIT IN THE CHAIR. FREQUENCY OF VOIDING HAS SLOWED DOWN. PT STATES HER KNEE IS LESS SWOLLEN THAN IT WAS THIS MORNING.
--- NOTE | 2019-10-19 18:06 | NUR ---
PATIENT UP TO BSC AND BACK TO BED, 1PA FWW. CALL LIGHT IN REACH. NO FURTHER NEEDS AT THIS TIME.
--- NOTE | 2019-10-19 18:17 | NUR ---
PT REPORTS RIGHT KNEE PAIN IS "GETTING BETTER", SWELLING HAS DECREASED. 1PA WITH FWW TO BSC. PT/OT. DIAURESING WELL, EDEMA IS LESS SEVERE. STABLE ESCHAR ON POTTS, DRAINAGE RESOLVED. PAIN CONTROLLED WITH PRN OXY AND SCHEDULED TYLENOL. ORTHO CONSULT FOR 10/20.
--- NOTE | 2019-10-19 19:19 | NUR ---
REPORT RECEIVED FROM DAY SHIFT RN. PT LYING IN BED, ALERT AND ORIENTED. NO QUESTIONS OR CONCERNS AT THIS TIME. CALL LIGHT IN REACH.
--- NOTE | 2019-10-19 21:10 | NUR ---
EVENING ASSESSMENT COMPLETE. EVENING MEDS GIVEN WITHOUT ISSUE. PT CONTINUING TO REFUSE SCHEDULED STOOL SOFTENERS. STATES IT IS NOT ABNORMAL FOR HER TO GO 3-4 DAYS WITHOUT A BM. BOWEL TONES ACTIVE. BLE ELEVATED ON PILLOWS. PRN GIVEN FOR 6/10 RIGHT KNEE AND BACK PAIN. NO FURTHER NEEDS AT THIS TIME. CALL LIGHT IN REACH.
--- NOTE | 2019-10-19 22:32 | NUR ---
CALL LIGHT ANSWERED. PT UP TO BSC WITH 2PA AND FWW. SLOW MOVING, GAIT STEADY. BACK TO BED, SAMMIE WELL.
--- NOTE | 2019-10-19 22:34 | NUR ---
PRIMARY RN SHERIE AND THIS MOLD CHECKER HELPED PATIENT USE THE BEDSIDE COMMODE AND BACK TO BED. CALL LIGHT IN REACH. ROOM LIGHTS OFF.
--- NOTE | 2019-10-19 23:50 | NUR ---
ANSWERED CALL LIGHT. PRIMARY RN SHERIE AND THIS HIGH SCHOOL COMPUTER SCIENCE TEACHER HELP PATIENT USE THE COMMODE. PATIENT IS BACK IN BED. CALL LIGHT IN REACH.
--- NOTE | 2019-10-20 01:46 | NUR ---
CALL LIGHT ANSWERED. PT UP TO BSC WITH SBA. BACK TO BED, SAMMIE WELL. PRN ORAL AND TOPICAL GIVEN FOR 6/10 RIGHT KNEE PAIN. CALL LIGHT IN REACH.
--- NOTE | 2019-10-20 05:05 | NUR ---
PT UP TO BSC WITH 1PA AND FWW, PT SLOW MOVING BUT STEADY GAIT. ASSISTED WITH ROSALINE-CARE. BACK TO BED, SAMMIE WELL. PRN GIVEN FOR C/O MUSCLE/BACK PAIN. ASSESSMENT UNCHANGED. ICE AND ELEVATION TO RLE. CALL LIGHT IN REACH.
--- NOTE | 2019-10-20 05:34 | NUR ---
PT SLEPT WELL. ALERT AND ORIENTED, USES CALL LIGHT. 1 PA WITH FWW. SLOW MOVING BUT STEADY GAIT. BSC, VOIDING QS. BLE ELEVATED ON PILLOWS, SWELLING IMPROVED. SCHEDULED TYLENOL AND PRN OXY FOR PAIN. ORTHO CONSULT 10/20.
--- NOTE | 2019-10-20 08:09 | NUR ---
BEDSIDE REPORT RECEIVED FROM SHERIE BACON. WHITE BOARD UPDATED. PATIENT ASLEEP AT THIS TIME. 0805: PATIENT COMPLAINS OF SPASMS IN RIGHT KNEE. VSS. PATIENT ALERT AND AWAKE NOW.
--- NOTE | 2019-10-20 08:27 | NUR ---
PT WANTS TO GO HOME TODAY, BUT REQUIRES CLOSE STANDBY-1 PERSON ASSIST UP TO COMMODE. PAINFUL RIGHT KNEE D/T SPASMS. SCHEDULED MEDS WITH 5MG OXYCODONE PROVIDED.
--- NOTE | 2019-10-20 08:44 | NUR ---
PT REFUSED STOOL SOFTENERS. C/O SPASMS IN RIGHT KNEE. DIDNT TOLERATE LYING IN BED WITH PILLOW UNDER KNEE. SITTING AT EDGE OF BED EATING BREAKFAST NOW.
--- NOTE | 2019-10-20 09:10 | NUR ---
PATIENT IN BED RESTING. CALL LIGHT IN REACH. NO FURTHER NEEDS AT THIS TIME.
--- NOTE | 2019-10-20 10:23 | NUR ---
PT SLEEPING AT THIS TIME. UNABLE TO GET VERBAL ANSWER OF IMPROVEMENT IN PAIN CONTROL. WILL ALLOW REST AT THIS TIME.
--- NOTE | 2019-10-20 11:00 | NUR ---
In and spoke with Rebecca. She states knee is better, but remains very painful. Would like a FWW and does not want Home Health. She would like to go to OP for water therapy, as she has done this in the past for back pain. Let her know I would discuss with Dr. Woo. Spoke with and she will write an Rx for FWW. She requests I call Dr. Mijares for OP order for PT.
--- NOTE | 2019-10-20 12:03 | NUR ---
CALL LIGHT ANSWERED. PATIENT USING THE BATHROOM. PATIENT BACKS TO BED. SETS UP TABLE FOR LUNCH. PATIENT HAD SOME BLOOD IN HER BM. RN NOTIFIED. CALL LIGHT WITHIN REACH. NO OTHER NEEDS AT THIS TIME
--- NOTE | 2019-10-20 12:36 | NUR ---
Call and spoke with Dr. Nelson office. He is out on medial leave. They will speak with the Dr. lindquist and request he write orders for OP PT and then call me back today.
--- NOTE | 2019-10-20 13:59 | NUR ---
PATIENT UP TO BATHROOM AND BACK TO BED, 1PA FWW. SON IN ROOM. CALL LIGHT IN REACH. NO FURTHER NEEDS AT THIS TIME. RN IN ROOM.
--- NOTE | 2019-10-20 15:13 | NUR ---
FU call to [facility]. They received RX and are delivering walker to pts room.
--- NOTE | 2019-10-21 11:22 | CONS ---
[facility] [address], [place] [address] Signed DATE OF CONSULTATION: REQUESTING PHYSICIAN: Devang Henao MD HISTORY OF PRESENT ILLNESS: Rebecca Castillo is a 79-year-old white female with a lot of chronic pain issues. She tells me she routinely got epidural steroid injections every couple months until she said she was told she could not have anymore. Current pain issues of the right knee. There is no history of trauma, simply has medial joint line pain. PHYSICAL EXAMINATION: On examination, the right knee is moderately swollen. There is no warmth. There is no induration. Gentle range of motion is uncomfortable. There was a little valgus pseudolaxity with really no other findings. DIAGNOSTIC DATA: She had x-rays taken, which show significant degenerative arthritis with fairly severe osteopenia. ASSESSMENT AND PLAN: I have discussed the treatment options with her and Dr. Woo happened to be present at the same time. We discussed the fact that her best options would probably be either injection therapy and/or an oral medication. Since she was noted to be passing blood in her stool today, Dr. Woo thought that none of the oral anti-arthritis medicines would be appropriate. We therefore discussed potential risks and complications associated with steroid injection therapy. As she has had numerous previous steroid injections in her back, she said she was comfortable proceeding. PROCEDURE: After again reviewing the procedure with her, the knee was prepped. We injected her through the standard anteromedial arthroscopic portal with 8 mL of 1% xylocaine and 2 mL of Kenalog 40. She tolerated the injection well and had no complications. Thank you for asking me to see her. Geoffrey Dumas MD WFB/JENNIFERL /[id number] Electronically Signed By: GEOFFREY DUMAS MD 10/21/19 1122 PATIENT NAME: REBECCA CASTILLO CONSULTATION DATE OF : 44 REPORT #: [id number] PHYSICIAN: GEOFFREY DUMAS MD PCP: BRIDGETTE EAGLE MD REPORT IS CONFIDENTIAL AND NOT TO BE RELEASED WITHOUT AUTHORIZATION [address] [place], [place] [address] Signed Copies: ~ Electronically Signed By: GEOFFREY DUMAS MD 10/21/19 1122 PATIENT NAME: REBECCA CASTILLO CONSULTATION DATE OF : 44 REPORT #: [id number] PHYSICIAN: GEOFFREY DUMAS MD PCP: BRIDGETTE EAGLE MD REPORT IS CONFIDENTIAL AND NOT TO BE RELEASED WITHOUT AUTHORIZATION
--- NOTE | 2019-10-22 09:57 | NUR ---
CALLED PT AT [phone], NO ANSWER, MESSAGE LEFT.
--- NOTE | 2019-10-22 10:04 | NUR ---
PT RETURNED CALL, STATED SHE IS DOING REALLY GOOD AT HOME, SHE SAYS SHE DID NOT RECIEVE ANY NEW MEDICATION ORDERS AND THAT SHE IS NOT HAVING ANY PROBLEMS TAKING HER MEDICATIONS SHE IS SUPPOSE TO. SHE STATES SHE HAS AN APPT WITH A DOCTOR TOMORROW IN [place] AND HER SON IS TAKING HER TO THAT APPT. STATES HER MEDS AND SIDE EFFECTS WERE DISCUSSED WITH HER AND SHE STATES UNDERSTANDING OF THESE. ALSO COMMENTS THAT THE CARE SHE HAD HERE WAS EXCELLENT
== END 2019-10-20 16:20 | disposition home or self-care (01) ==
LOC: ED 13:02 → MS 13:04
PROVIDERS: ADMIT Student in an Organized Health Care Education/Training Program
PROC: 3E0U33Z Introduction of Anti-inflammatory into Joints, Percutaneous Approach (ICD-10-PCS; principal; 2019-10-20)
PROC: 3E0U3BZ Introduction of Anesthetic Agent into Joints, Percutaneous Approach (ICD-10-PCS; 2019-10-20)
DX: M25.561 Pain in right knee (principal); L53.9 Erythematous condition, unspecified; D72.829 Elevated white blood cell count, unspecified; M19.90 Unspecified osteoarthritis, unspecified site; M81.0 Age-related osteoporosis without current pathological fracture; I25.2 Old myocardial infarction; I11.0 Hypertensive heart disease with heart failure; I50.9 Heart failure, unspecified; I48.0 Paroxysmal atrial fibrillation; F39 Unspecified mood [affective] disorder; M10.9 Gout, unspecified; G89.4 Chronic pain syndrome; Z95.0 Presence of cardiac pacemaker; Z88.0 Allergy status to penicillin; Z88.2 Allergy status to sulfonamides; Z79.899 Other long term (current) drug therapy; Z79.01 Long term (current) use of anticoagulants; Z79.891 Long term (current) use of opiate analgesic
CPT/HCPCS: 36415; 73560; 80048; 80053; 83880; 84550; 85025; 85379; 85610; 85651; 86140; 97110; 97116; 97163; 97165; 99284-25; G0378

== ENCOUNTER 2021-12-31 18:59 | Emergency (ER) | payer MEDICARE ==
[~2021-12-31] VITALS: Ht 162.6 cm; Wt 68.9 kg
[~2021-12-31 18:59] MED LIST changes: +ALENDRONATE SOD10 MG PO; +HAIR, SKIN & N1 EACH PO; +MIRTAZAPINE15 M1 PO; +PREVACID 24HR15 MG PO; +PROLIA60 MG/1 ML SUB-Q; +VITAMIN D32000 UNI1 PO
--- OUTSIDE RECORDS SUMMARY | 2021-12-31 19:02 | XMS ---
PreManage Notification: SHAVONNE ESTEBAN Security Business Performance Advisor Events No recent Security Events currently on file CRITERIA MET - LEVY CARE PROVIDERS JONATHAN ROBLES Internal Medicine: Cardiovascular Disease Current PHONE: [phone] [facility]-Xochilt Miranda PHONE: [phone] Keith has no Care Guidelines for this patient. Madeleine VISIT COUNT (12 MO.) 1 TOMMY Vigil TOTAL 1 NOTE: Visits indicate total known visits. ED/UCC VISIT TRACKING (12 MO.) 12/31/2021 19:00 TOMMY Velázquez [place] TYPE: Emergency COMPLAINT: - WEAKNESS, COUGHING BLOOD INPATIENT VISIT TRACKING (12 MO.) No inpatient visits to display in this time frame [email or web address]
[2021-12-31] MEDS ORDERED: PROMETH-CODEIN 65 ML PO (23:31)
[2021-12-31] MEDS ORDERED: LEVOFLOXACIN500 MG PO (23:31)
[2021-12-31] MEDS ORDERED: VENTOLIN HFA18 GM INH (23:31)
== END 2022-01-01 00:08 | disposition home or self-care (01) ==
LOC: ED 18:59
DX: J18.9 Pneumonia, unspecified organism (principal); I11.0 Hypertensive heart disease with heart failure; I50.9 Heart failure, unspecified; I48.91 Unspecified atrial fibrillation; I25.2 Old myocardial infarction; Z88.5 Allergy status to narcotic agent; Z88.0 Allergy status to penicillin; Z88.2 Allergy status to sulfonamides; Z79.899 Other long term (current) drug therapy; Z79.01 Long term (current) use of anticoagulants; Z20.822 Contact with and (suspected) exposure to COVID-19
CPT/HCPCS: 36415; 71045; 80048; 81001; 85025; 96374; 99283-25; C9803; J1885; J7040; U0003

== ENCOUNTER 2022-08-21 07:56 | Day surgery (SDC) | payer MEDICARE ==
[~2022-08-21] VITALS: Ht 162.6 cm; Wt 68.1 kg
[~2022-08-21 07:56] MED LIST changes: +CYCLOBENZAPRINE10 MG PO; +LEVOFLOXACIN500 MG PO; +LOSARTAN POTAS100 MG PO; +PROMETH-CODEIN 65 ML PO; +VENTOLIN HFA18 GM INH
--- NOTE | 2022-08-21 10:36 | NUR ---
08/21/22 1036 Renetta Gill 1021 PT ARRIVED IN PACU SLEEPY. 1030 DENTURES AND GLASSES RETURNED TO PT. C/O SORE L SHOULDER. NO REDNESS OR SWELLING NOTED. WILL CONTINUE TO MONITOR.
--- NOTE | 2022-08-22 17:36 | OR ---
[facility] [address], [place] [address] Signed DATE OF OPERATION: 08/21/2022 SURGEON: Reza Martinez MD PREOPERATIVE DIAGNOSES: 1. Profound weight loss with esophageal dysphagia. 2. Chronic anticoagulation related to the atrial dysrhythmia. POSTOPERATIVE DIAGNOSES: 1. 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 2. 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 3. Antral gastritis. PROCEDURES: 1. Esophagogastroduodenoscopy. 2. Esophageal dilation with [place] [employer] CRE balloon dilator, 60-Mozambican (20 mm) at 3.5 atms. ANESTHESIA: Propofol infusion, Jose Elias Perez CRNA INDICATIONS: This 82-year-old white woman is a patient of Dr. Soto in [place], [place]. She is referred with dysphagia for consideration of upper endoscopy. She has numerous medical comorbidities including use of anticoagulant, warfarin for atrial fibrillation as well as known pacemaker/defibrillator device. She has had dysphagia for a number of years ago, it is worsening in recent times. Only soft foods can be tolerated. She notes that things "hang up" in the throat and the epigastrium. She notably underwent Sebastien fundoplication by Dr. Jaxson Dumont in [place], [place] in 2002. I have reviewed his operative report. 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 Geoffrey Castro a number of years ago. She is admitted at this time to undergo upper endoscopy and other indicated procedures depending on clinical findings. The risks of bleeding, infection, perforation, and so forth were reviewed with, her she understands and wished to proceed. FINDINGS: Proximal cervical esophageal stricture was noted at 15 cm from the incisors. It was significant enough that even a small size upper endoscope could not pass through it. On that basis, dilation was undertaken with a [employer] balloon dilator allowing for passage of the endoscope ultimately to further evaluate the esophagus, stomach, and Electronically Signed By: REZA MARTINEZ MD 08/22/22 1736 PATIENT NAME: SHAVONNE ESTEBAN OPERATIVE REPORT DATE OF : 44 REPORT #: [id number] PHYSICIAN: REZA MARTINEZ MD PCP: AMANDEEP SOTO MD REPORT IS CONFIDENTIAL AND NOT TO BE RELEASED WITHOUT AUTHORIZATION [facility] [address], [place] [address] Signed duodenum. There was definitely failure of the Sebastien fundoplication from the past with a dysmorphic GE junction. It was somewhat a dysmorphic antrum I suspect related to prior benign tumor resection in that area. The duodenum was normal. Dilation of esophageal stricture allowed for passage of the scope without problem and was accomplished without complication to 3.5 psi using a 20 mm 60-Mozambican balloon dilator device. DESCRIPTION OF PROCEDURE: The patient was brought to the surgical endoscopy suite, placed in the lateral decubitus position. She was given intravenous sedation with full cardiopulmonary monitoring by the canvas goods maker. A magnet to deactivate the defibrillator had been applied to the pacemaker device. A bite block was placed. An Olympus video upper endoscope was passed into the hypopharynx. The vocal cords appeared normal. Scope was advanced into the proximal esophagus, which was quickly met with some resistance noting a concentric benign-appearing esophageal stricture. Despite its generally open appearance, the scope was simply not passed beyond this. Biopsies were taken from the stricture and the scope were withdrawn. A smaller diameter Olympus upper endoscope was then obtained with the impression that this would be easily passed, it certainly did not. On that basis, a [employer] balloon dilator was passed down the operating channel of the scope, positioned across the stricture and dilated using the manometric device. Dilation followed manufacture's instructions. Initial dilation was at 3 atms, fully opening the balloon in appearance. This would generally correspond to a dilation size of 18 mm. It was expanded a bit more to approximately 3.5 psi and left inflated for a short time, deflated withdrawn. The upper endoscope was then reintroduced, which easily passed through the area of dilation. The area of dilation showed fracturing of the mucosa, but no perforation or anything of that sort. The scope was then easily passed down the entire esophagus to the distal esophagus, where there was chronic inflammatory change, but no stricture in that area. Passage to the stomach showed a fair amount of bile. This was suctioned free. Rugal folds appeared normal. The antrum was chronically inflamed, it was biopsied. The scope was then passed through the pylorus with some difficulty, and although there was no stricture, I suspect it was distorted, related to prior distant antral resection for benign neoplasm by Dr. Castro in the past. The scope was passed into the duodenum, which was normal. Scope was then withdrawn. Biopsies taken of the antrum for both DAVID and pathologic testing. Scope was withdrawn. Retroflexed view was undertaken showing a dysmorphic flap valve consistent with failed Sebastien fundoplication. Again, there was no evidence of actual stricture. The scope was withdrawn. A biopsy was then taken at the distal esophageal mucosa, subsequently mid esophageal mucosa to assess for eosinophilic esophagitis, however, unlikely that might be at this point. The scope was carefully withdrawn through the upper esophagus, which showed the area of dilation with mucosal fracturing as expected from dilation, but no sign of perforation or impediment to scope passage. There was no Electronically Signed By: REZA MARTINEZ MD 08/22/22 1736 PATIENT NAME: SHAVONNE ESTEBAN OPERATIVE REPORT DATE OF : 44 REPORT #: [id number] PHYSICIAN: REZA MARTINEZ MD PCP: AMANDEEP SOTO MD REPORT IS CONFIDENTIAL AND NOT TO BE RELEASED WITHOUT AUTHORIZATION [facility] [address] [place] [address] Signed evidence of bleeding. The scope was withdrawn, removed. The patient was taken to the recovery room in good condition. CONCLUDING DIAGNOSIS: Severe proximal esophageal stricture at 15 cm, status post esophageal dilation 20 mm at 3.58 atms balloon dilator ([employer]). PLAN: She will be given PPI medication. We would not advise to restart the Coumadin in full force for two days. She should maintain a soft diet for now. We will see her back in a few weeks and assess her clinical swallowing at that point. I am confident that she will need dilation again and it will likely would be beneficial. Biopsies have been taken of the stricture and it does not appear clinically malignant, but that would be a consideration to review as well. MD NANCY Tuttle/ERAN /[id number] cc: Dr. Soto [facility] Copies: ~ Electronically Signed By: REZA MARTINEZ MD 08/22/22 1736 PATIENT NAME: SHAVONNE ESTEBAN OPERATIVE REPORT DATE OF : 44 REPORT #: [id number] PHYSICIAN: REZA MARTINEZ MD PCP: AMANDEEP SOTO MD REPORT IS CONFIDENTIAL AND NOT TO BE RELEASED WITHOUT AUTHORIZATION
--- NOTE | 2022-08-23 16:09 | PATH ---
[facility] [address] [facility] [place], [place] [address] Signed SPECIMEN(S): A PROXIMAL ESOPHAGEAL AT 16 CM SPECIMEN(S): B ANTRUM BIOPSY SPECIMEN(S): C LOWER ESOPHAGEAL BIOPSY SPECIMEN(S): D MIDDLE ESOPHAGEAL BIOPSY SPECIMEN SOURCE: A. PROXIMAL ESOPHAGEAL AT 16 CM B. ANTRUM BIOPSY C. LOWER ESOPHAGEAL BIOPSY D. MIDDLE ESOPHAGEAL BIOPSY CLINICAL HISTORY: Dysphagia. Post: Proximal esophageal stricture; hiatal hernia FINAL PATHOLOGIC DIAGNOSIS: A. Proximal esophageal biopsy at 16 cm: - Benign esophageal mucosa with superficial acute epithelial inflammation (esophagitis). - A PAS with diastase stain is negative for fungal organisms. B. Antrum biopsy: - Benign gastric-type mucosa with focal mild chronic inflammation. - Negative for Helicobacter organisms on routine HE stained sections. - Focal slight hyperplastic gastric-type mucosa. C. Lower esophageal biopsy: - Esophageal mucosa with reactive features and focal chronic inflammation. - Negative for increased epithelial eosinophils. - Focal epithelial erosion. D. Middle esophageal biopsy: - Benign esophageal mucosa with focal slight reactive features. - Negative for increased epithelial eosinophils. JVR:cox monett:C2NR MICROSCOPIC EXAMINATION: Histologic sections of all submitted blocks are examined by light microscopy. These findings, together with the gross examination, support the pathologic diagnosis. A PAS with diastase stain is performed with appropriate control on block (A1) and is negative for fungal organisms. JVR:sm GROSS DESCRIPTION: PATIENT NAME: EULALIASHAVONNE ADA PATHOLOGY DATE OF : 44 REPORT #: [id number] PHYSICIAN: JAMES MOELLER PCP: AMANDEEP SOTO MD REPORT IS CONFIDENTIAL AND NOT TO BE RELEASED WITHOUT AUTHORIZATION [facility] [address] [place], [place] [address] Signed Four specimens are received in four containers, labeled "MS." A. The specimen, labeled "proximal esophageal at 16 cm," is received in formalin and consists of one kulkarni soft tissue fragment that measures 0.5 cm in greatest dimension. The specimen is entirely submitted in cassette (A1). B. The specimen, labeled "antrum biopsy," is received in formalin and consists of one kulkarni soft tissue fragment that measures 0.4 cm in greatest dimension. The specimen is entirely submitted in cassette (B1). C. The specimen, labeled "lower esophageal biopsy," is received in formalin and consists of two kulkarni soft tissue fragments that measure 0.4 to 0.6 cm in greatest dimension. The specimen is entirely submitted in cassette (C1). D. The specimen, labeled "middle esophageal biopsy," is received in formalin and consists of four kulkarni soft tissue fragments that measure 0.1 to 0.7 cm in greatest dimension. The specimen is entirely submitted in cassette (D1). HH (under the direct supervision of a pathologist) The Gross Description was prepared using a voice recognition system. The report was reviewed for accuracy; however, sound-alike word errors, addition and/or deletions may occur. If there is any question about this report, please contact Client Services. PERFORMING LABORATORY: The technical component was performed by [facility], [address] [place] [id number] (CLIA# [id number]). Professional interpretation was performed by [facility] - [facility], [address] [place] [id number] (CLIA#: [id number]). Diagnostician: Andrade Mitchell MD Pathologist Electronically Signed 08/23/2022 Copies: ~ PATIENT NAME: EULALIASHAVONNE JAMES PATHOLOGY DATE OF : 44 REPORT #: [id number] PHYSICIAN: JAMES PATHOLOGY PCP: AMANDEEP SOTO MD REPORT IS CONFIDENTIAL AND NOT TO BE RELEASED WITHOUT AUTHORIZATION
== END 2022-08-21 11:25 | disposition home or self-care (01) ==
LOC: OPS 07:56 → DS 07:56 → OPS 09:30 → DS 10:00 → OPS 11:25
PROVIDERS: ATTEND Surgery
PROC: 0DB58ZX Excision of Esophagus, Via Natural or Artificial Opening Endoscopic, Diagnostic (ICD-10-PCS; 2022-08-21)
PROC: 0D758ZZ Dilation of Esophagus, Via Natural or Artificial Opening Endoscopic (ICD-10-PCS; principal; 2022-08-21 09:30)
DX: K22.2 Esophageal obstruction (principal); K29.50 Unspecified chronic gastritis without bleeding; K21.00 Gastro-esophageal reflux disease with esophagitis, without bleeding; K22.89 Other specified disease of esophagus; I48.91 Unspecified atrial fibrillation; I10 Essential (primary) hypertension; Z79.01 Long term (current) use of anticoagulants; Z95.810 Presence of automatic (implantable) cardiac defibrillator; Z88.2 Allergy status to sulfonamides; Z88.5 Allergy status to narcotic agent; Z90.711 Acquired absence of uterus with remaining cervical stump; Z98.890 Other specified postprocedural states; Z88.0 Allergy status to penicillin
CPT/HCPCS: C1726; J7121

== ENCOUNTER 2023-08-09 13:14 | Emergency (ER) | payer MEDICARE ==
[~2023-08-09] VITALS: Ht 162.6 cm; Wt 59.0 kg
[~2023-08-09 13:14] MED LIST changes: +CALTRATE 600 +1 EAC3 PO; +TORSEMIDE100 MG PO
--- OUTSIDE RECORDS SUMMARY | 2023-08-09 13:17 | XMS ---
PreManage Notification: SHAVONNE ESTEBAN Security Bailer Tenders Supervisor Events No recent Security Events currently on file CRITERIA MET - [facility] BRIDGETTE Miranda PHONE: [phone] JONATHAN ROBLES Internal Medicine: Cardiovascular Disease Current PHONE: [phone] Keith has no Care Guidelines for this patient. Madeleine VISIT COUNT (12 MO.) Adán Vigil TOTAL 1 NOTE: Visits indicate total known visits. ED/UCC VISIT TRACKING (12 MO.) 08/09/2023 13:15 TOMMY Velázquez OR TYPE: Emergency COMPLAINT: - MEDICATION REFILL INPATIENT VISIT TRACKING (12 MO.) No inpatient visits to display in this time frame [id number]
[2023-08-09 17:20] VITALS: BP 119/71
== END 2023-08-09 17:20 | disposition home or self-care (01) ==
LOC: ED 13:14
DX: Z76.0 Encounter for issue of repeat prescription (principal); I25.2 Old myocardial infarction; I11.0 Hypertensive heart disease with heart failure; I50.9 Heart failure, unspecified; I48.91 Unspecified atrial fibrillation; Z88.0 Allergy status to penicillin; Z88.2 Allergy status to sulfonamides; Z88.5 Allergy status to narcotic agent; Z79.899 Other long term (current) drug therapy; Z79.01 Long term (current) use of anticoagulants
CPT/HCPCS: 99281

== ENCOUNTER 2024-07-14 14:23 | Inpatient (IN) | payer MEDICARE ==
[~2024-07-14] VITALS: Ht 162.6 cm; Wt 65.2 kg
[~2024-07-14 14:23] MED LIST changes: -CLONIDINE HCL0.1 MG PO; -DIGOXIN125 MCG PO; +ELIQUIS2.5 MG PO; +K-TAB ER20 MEQ PO; +LANOXIN125 MCG PO; +LEVETIRACETAM500 MG PO
--- OUTSIDE RECORDS SUMMARY | 2024-07-14 14:29 | XMS ---
PreManage Notification: SHAVONNE ESTEBAN Security Inseamer Events No recent Security Events currently on file CRITERIA MET - Group Notification - [facility] - 2 Visits in 30 Days [facility]Xochilt Miranda PHONE: [phone] JONATHAN ROBLES Internal Medicine: Cardiovascular Disease Current PHONE: [phone] Keith has no Care Guidelines for this patient. EYamilet VISIT COUNT (12 MO.) [address] [place] [address] TOTAL 4 NOTE: Visits indicate total known visits. ED/UCC VISIT TRACKING (12 MO.) 07/14/2024 14:23 TOMMY Vel[facility]quez OR TYPE: Emergency COMPLAINT: - WEAKNESS 07/03/2024 16:00 TOMMY Velázquez OR TYPE: Emergency COMPLAINT: - NAUSA/VOMITING DIAGNOSES: - Allergy status to narcotic agent - Allergy status to penicillin - Allergy status to sulfonamides - Constipation, unspecified - Heart failure, unspecified - Hypertensive heart disease with heart failure - intermediate accountant (current) use of anticoagulants - Old myocardial infarction - Other long term care phlebotomist (current) drug therapy - Pneumonia, unspecified organism - Unspecified atrial fibrillation 12/12/2023 16:56 TOMMY Velázquez OR TYPE: Emergency COMPLAINT: - POSS STROKE DIAGNOSES: - Allergy status to narcotic agent - Allergy status to penicillin - Allergy status to sulfonamides - Coagulation defect, unspecified - Dysphasia - Heart failure, unspecified - Hypertensive heart disease with heart failure - intermediate accountant (current) use of anticoagulants - Other long term care phlebotomist (current) drug therapy - Slurred speech - Unspecified atrial fibrillation - Unspecified convulsions 08/09/2023 13:15 TOMMY Vel[facility]quez OR TYPE: Emergency COMPLAINT: - MEDICATION REFILL DIAGNOSES: - Allergy status to narcotic agent - Allergy status to penicillin - Allergy status to sulfonamides - Encounter for issue of repeat prescription - Heart failure, unspecified - Hypertensive heart disease with heart failure - custodial (current) use of anticoagulants - Old myocardial infarction - Other jail (current) drug therapy - Unspecified atrial fibrillation INPATIENT VISIT TRACKING (12 MO.) 07/04/2024 01:01 [facility] OR TYPE: General Medicine DIAGNOSES: - Dysphagia, unspecified - Esophageal obstruction - PNA R middle lobe bronch obstruction 12/13/2023 03:27 Danny Villaseñoruel David OR TYPE: Medical Surgical DIAGNOSES: - Traumatic subdural hemorrhage with loss of consciousness status unknown, initial encounter [id number]
[2024-07-14 14:59] LABS: BASOPHILS 1.1 % (0-2); EOSINOPHILS 1.9 % (0-6); HEMATOCRIT 32.2 % (35.0-50.0); HEMOGLOBIN 10.5 g/dL (12.0-18.0); LYMPHOCYTES 16.9 % (24-44); MCH 32.4 (27-36); MCHC 32.7 g/dl (30-36); MCV 98.8 fl (81-99); MONOCYTES 5.6 % (0-12); NEUTROPHILS 74.5 % (39-80); RBC 3.26 M/ul (4.3-5.7); RDW 15.1 (10.5-15.0)
[2024-07-14] MEDS ORDERED: SODIUM CHLORIDE 0.9% 500 ML IV ONE (15:00)
[2024-07-14 15:07] LABS: ALBUMIN 1.3 g/dL (3.4-5.0); ALBUMIN/GLOBULIN RATIO 0.32 (1.1-2.4); ANION GAP 11.1 (7-21); BILIRUBIN, TOTAL 0.3 ng/dL (0.2-1.0); BUN/CREATININE RATIO 17.64 (6.0-28.6); CALCIUM 8.7 mg/dL (8.5-10.1); CREATININE, SERUM 1.02 mg/dL (0.55-1.02); MAGNESIUM 1.7 mg/dL (1.8-2.4); POTASSIUM 5.1 mmol/L (3.5-5.1); PROTEIN, TOTAL 5.4 g/dL (6.4-8.2)
[2024-07-14 15:10] LABS: BILIRUBIN, URINE NEGATIVE (negative); BLOOD/HGB, URINE NEGATIVE (Negative); KETONE, URINE NEGATIVE (Negative); LEUK ESTERASE, URINE NEGATIVE (negative); NITRITE, URINE NEGATIVE (negative); PH, URINE 5.5 (5-7)
[2024-07-14 15:17] LABS: PLATELET COUNT 559 K/uL (140-440)
[2024-07-14 16:24] LABS: INFLUENZA B NAA NEGATIVE (NEGATIVE); RESPIRATORY SYNCYTIAL VIR NAA NEGATIVE (NEGATIVE)
[2024-07-14] MEDS ORDERED: SODIUM CHLORIDE 0.9% 500 ML IV PRN (16:30)
[2024-07-14] MEDS ORDERED: levoFLOXacin 500 MG/100 ML BAG IV ONE (16:45)
[2024-07-14] MEDS ORDERED: bisacodyL 10 MG SUPP PR PRN (17:00)
[2024-07-14] MEDS ORDERED: LACTATED RINGER'S 1,000 ML IV SCH (17:00)
[2024-07-14] MEDS ORDERED: ACETAMINOPHEN 500 MG TAB PO PRN (17:00)
[2024-07-14] MEDS ORDERED: ENOXAPARIN SODIUM 40 MG/0.4 ML SYR SUB-Q SCH (17:04)
[2024-07-14 17:20] LABS: DIGOXIN 1.5 ng/dL (0.9-2.0); MAGNESIUM 1.8 mg/dL (1.8-2.4)
[2024-07-14] MEDS ORDERED: HYDROCODON-ACE1 EAC8 PO (17:20)
[2024-07-14] MEDS ORDERED: MAG-OXIDE400 MG PO (17:23)
[2024-07-14 17:29] LABS: BASE EXCESS, BLOOD GAS 5.9 mmol/L (-2-2); HCO3, BLOOD GAS 30.2 mmol/L (22-26); O2 SATURATION, BLOOD GAS 95.4 % (95.0-100.0); PCO2, BLOOD GAS 40.5 mmHg (35-45); PH, BLOOD GAS 7.48 (7.35-7.45); PO2, BLOOD GAS 66 mmHg (80-100); TOTAL CO2, BLOOD GAS 31.4
[2024-07-14 17:30] LABS: OXYGEN RECEIVED, BLOOD GAS RA
[2024-07-14 17:31] LABS: AMPHETAMINES, URINE NEGATIVE (NEGATIVE); BARBITURATES, URINE NEGATIVE (NEGATIVE); BENZODIAZEPINE, URINE NEGATIVE (NEGATIVE); BUPRENORPHINE, URINE NEGATIVE (NEGATIVE); CANNABINOID, URINE NEGATIVE (NEGATIVE); COCAINE, URINE NEGATIVE (NEGATIVE); ECSTASY, URINE NEGATIVE (NEGATIVE); FENTANYL, URINE NEGATIVE (NEGATIVE); METHADONE, URINE NEGATIVE (NEGATIVE); OPIATES, URINE POSITIVE (NEGATIVE); OXYCODONE, URINE NEGATIVE (NEGATIVE); PHENCYCLIDINE, URINE NEGATIVE (NEGATIVE)
--- NOTE | 2024-07-14 18:44 | NUR ---
PT ARRIVED TO THE MEDICAL FLOOR. PT ALERT TO SELF AND PLACE. PT REPORTS CHRONIC PAIN IN LEFT KNEE. ADMIN TYLENOL 500MG PO AT THIS TIME. IV SITE PATENT.
--- NOTE | 2024-07-14 18:49 | NUR ---
VANESSA FROM DR. DUKE TO ORDER A C-DIFF AND WOUND CONSULT FOR PRESSURE AREA/WOUND TO COCCYX.
[2024-07-14 18:55] VITALS: BP 142/62
--- NOTE | 2024-07-14 19:21 | NUR ---
REPORT RECIEVED FROM DAY SHIFT RN. PATIENT RESTING IN BED WITH EYES CLOSED. RESPIRATIONS EVEN AND UNLABORED. CALL LIGHT IN REACH.
--- NOTE | 2024-07-14 19:44 | NUR ---
dr booker called and asked about location of bruising, per charge report and photos in chart-bruising and reddness to coccyx/tailbone area. primary rn elo placed order for repeat lactic for now-dr booker made aware and okay'd order. per md booker-he is reviewing chart and home meds. float carri monk in pt room with lab to attempt lab draw.
[2024-07-14] MEDS ORDERED: HYDROCODONE/APAP 10/325 1 TAB PO PRN (20:15)
--- NOTE | 2024-07-14 20:37 | NUR ---
in room with jhonatan christina to redraw yellow tubes x3 per request of narciso in lab. lab drawn with new iv placement by jhonatan monk and tubed to lab. pt tolerated well.
[2024-07-14 20:40] VITALS: BP 130/59
[2024-07-14 20:41] VITALS: BP 130/59
[2024-07-14 20:45] VITALS: BP 130/59
--- NOTE | 2024-07-14 20:58 | NUR ---
VS OBTAINED AND RECORDED. SCHEDULED MEDICATIONS ADMINISTERED. PATIENT REPORTS "30/07" BLE PAIN. PRN PAIN MEDICATION ADMINISTERED PER PATIENT REQUEST. NO FURTHER NEEDS AT THIS TIME. BED ALARM ON FOR SAFETY. PATIENT EDUCATED TO ROOM AND CALL LIGHT. CALL LIGHT IN REACH.
[2024-07-14] MEDS ORDERED: MELATONIN 3 MG TAB PO PRN (21:00)
[2024-07-14] MEDS ORDERED: DIGOXIN 125 MCG TAB PO SCH (21:00)
[2024-07-14] MEDS ORDERED: ATORVASTATIN 20 MG TAB PO SCH (21:00)
[2024-07-14] MEDS ORDERED: MIRTAZAPINE 15 MG TAB PO SCH (21:00)
[2024-07-14 21:07] VITALS: BP 130/59
[2024-07-14] MEDS ORDERED: CYCLOBENZAPRINE HCL 10 MG TAB PO SCH (21:33)
--- NOTE | 2024-07-14 21:34 | NUR ---
CALL PLACED TO MD REGARDING PATIENTS LACTIC ACID LAB VALUE. NO NEW ORDERS.
--- NOTE | 2024-07-14 21:45 | NUR ---
ASSESSMENT COMPLETE. PATIENT HAS 3 NON BLANCHABLE WOUNDS ON LOWER BACK AND SOME SCATTERED REDNESS. PICTURES ON CHART. PATIENT BILAT SHINS MARISOL WITH 2+ PITTING EDEMA PRESENT. BUE HAVE SCATTERED BRUISING NOTED WITH A SCAB ON RIGHT ELBOW. PATIENT REPORTS PAIN IN BLE WHICH IS CHRONIC FROM HER ARTHRITIS. PATIENT DENIES FURTHER NEEDS AT THIS TIME. BED ALARM ON FOR SAFETY. CALL LIGHT IN REACH. 2 WARM BLANKETS PROVIDED.
--- NOTE | 2024-07-14 23:41 | NUR ---
PATIENT RESTING IN BED ON BACK WITH EYES CLOSED. RESPIRATIONS EVEN AND UNLABORED. CALL LIGHT IN REACH.
[2024-07-15] VITALS (8 sets, daily range): BP systolic 108–132; BP diastolic 51–61
--- NOTE | 2024-07-15 00:54 | NUR ---
PATIENT REPORTS "30/07" PAIN IN BLE. PRN PAIN MEDICATION ADMINISTERED. VS AND I&Os OBTAINED AND RECORDED. PATIENT DENIES NO FURTHER NEEDS. BED ALARM ON FOR SAFETY. CALL LIGHT IN REACH.
--- NOTE | 2024-07-15 02:37 | NUR ---
PATIENT RESTING IN BED ON BACK WITH EYES CLOSED. RESPIRATIONS EVEN AND UNLABORED. CALL LIGHT IN REACH.
--- NOTE | 2024-07-15 04:25 | NUR ---
PATIENT RESTING IN BED ON BACK WITH EYES CLOSED. RESPIRATIONS EVEN AND UNLABORED. CALL LIGHT IN REACH.
--- NOTE | 2024-07-15 05:13 | NUR ---
VS AND I&Os OBTAINED AND RECORDED. NEW PUREWICK PLACED AFTER ROSALINE CARE PROVIDED. PATIENT REPOSTIONED IN BED WITH PILLOW UNDER RIGHT SIDE AND 2 PILLOWS UNDER BLE TO ELEVATE HEELS OFF THE BED. PATIENT STATES "THAT FEELS BETTER". WARM BLANKETS, ICE WATER, AND ENSURE PROVIDED PER PATIENT REQUEST. PATIENT REPORTS PAIN. PRN PAIN MEDICATION ADMINISTERED PER PATIENT REQUEST. NO FURTHER NEEDS. BED ALARM ON FOR SAFETY. CALL LIGHT IN REACH.
[2024-07-15 05:52] LABS: BASOPHILS 1.1 % (0-2); EOSINOPHILS 2.7 % (0-6); HEMATOCRIT 30.1 % (35.0-50.0); HEMOGLOBIN 10.1 g/dL (12.0-18.0); LYMPHOCYTES 23.3 % (24-44); MCH 32.9 (27-36); MCHC 33.7 g/dl (30-36); MCV 97.5 fl (81-99); MONOCYTES 7.8 % (0-12); NEUTROPHILS 65.1 % (39-80); PLATELET COUNT 563 K/uL (140-440); RBC 3.09 M/ul (4.3-5.7); RDW 15.1 (10.5-15.0)
[2024-07-15 06:07] LABS: ALBUMIN 1.4 g/dL (3.4-5.0); ALBUMIN/GLOBULIN RATIO 0.36 (1.1-2.4); ANION GAP 8.5 (7-21); BILIRUBIN, TOTAL 0.3 ng/dL (0.2-1.0); BUN/CREATININE RATIO 22.5 (6.0-28.6); CALCIUM 8.4 mg/dL (8.5-10.1); CREATININE, SERUM 0.8 mg/dL (0.55-1.02); MAGNESIUM 1.4 mg/dL (1.8-2.4); POTASSIUM 4.5 mmol/L (3.5-5.1); PROTEIN, TOTAL 5.3 g/dL (6.4-8.2)
[2024-07-15] MEDS ORDERED: APIXABAN 2.5 MG TAB PO SCH (09:00)
[2024-07-15] MEDS ORDERED: allopurinoL 100 MG TAB PO SCH (09:00)
[2024-07-15] MEDS ORDERED: LOSARTAN POTASSIUM 25 MG TAB PO SCH (09:00)
[2024-07-15] MEDS ORDERED: TORSEMIDE 20 MG TAB PO SCH (09:00)
[2024-07-15] MEDS ORDERED: SOTALOL HCL 80 MG TAB PO SCH ×3 (09:00→11:15)
--- NOTE | 2024-07-15 10:10 | NUR ---
VANESSA from Dr. Laurent to order xray in for left ankle/tib/fib. Order placed at this time.
--- NOTE | 2024-07-15 10:27 | NUR ---
PATIENT ALERT AND ORIENTED, SLOW TO ANSWER QUESTIONS, BUT ANSWERS APPROPRIATELY. STATES SHE LIVES IN [place] WITH SON. DEMOGRAPHICS VERIFIED. STATES SONSHEREE, ASSISTS TO CARE FOR HER AT BASELINE. SHE HAS A WALKER, CANE, SHOWER CHAIR, NO OTHER DME. STATES SHE DOES NOT DRIVE. SONSHEREE, ASSISTS HER WITH TRANSPORTATION WHEN NEEDED. DENIES FINANCIAL NEEDS. HAD A FALL LAST SATURDAY. NOW HAVING LEFT LEG PAIN. DIFFICULTY GETTING UP AND CARING FOR SELF RECENTLY, POOR APPETITE WELL. PT RECOMMENDING A SNF. SNF CARE DISCUSSED WITH PATIENT. STATES SHE IS WILLING TO GO TO A SNF AT [place]. PREFERS TO STAY CLOSE TO HOME. PATIENT CHOICE LETTER PROVIDED. PRIMARY FACILITY SHE WOULD LIKE IS [facility]. STATES SHE CAN THINK OF NO OTHER NEEDS AT THIS TIME. INFORMED STAFF WILL RETURN TO KEEP HER UPDATED THROUGHOUT PROCESS OF PLACEMENT. PT, PRIMARY NURSE AND CHARGE NURSE NOTIFIED PATIENT IS AGREEABLE TO SNF AT THIS TIME.
--- NOTE | 2024-07-15 10:28 | NUR ---
PT NOT AVAILABLE FOR VISIT. PROVIDED PRAYER.
--- NOTE | 2024-07-15 10:30 | NUR ---
ADMIN NORCO ONE TAB 10/325MG PO FOR REPORTS OF 7/10 BACK AND LEFT LEG PAIN.
--- NOTE | 2024-07-15 10:34 | NUR ---
UR CLINICAL REVIEW: 2MN PAL- MEETS INPT MEDICARE INPT 07/14/24 @ 1705 ORDER MATCHES REG NO AUTH REQUIRED PER MEDICARE RULES PLAN TO DC TO SNF WHEN STABLE.
--- NOTE | 2024-07-15 11:00 | NUR ---
Waffle air mattress placed for pressure relief.
--- NOTE | 2024-07-15 11:13 | NUR ---
SNF REFERRAL FAXED TO [facility].
[2024-07-15] MEDS ORDERED: POTASSIUM CHLO10 MEQ PO (11:20)
[2024-07-15] MEDS ORDERED: PHARMACY RENAL DOSE ADJUSTMENT 1 DOSE MISC PO SCH (12:00)
--- NOTE | 2024-07-15 12:11 | NUR ---
SPOKE WITH SUE AT [facility]. THEY ARE ABLE TO ACCEPT PATIENT ON SATURDAY FOR SNF IF SHE IS MEDICALLY STABLE.
[2024-07-15] MEDS ORDERED: MAGNESIUM SULFATE 2 GM/50 ML BAG IV ONE (14:00)
[2024-07-15] MEDS ORDERED: SOTALOL80 MG PO (14:24)
--- NOTE | 2024-07-15 14:48 | NUR ---
Patient awake, alert and oriented x3, no acute distress. Patient reports 7/10 left hip pain. Admin one tab [place] 10/325mg po at this time with a snack. Patient's IV remains patent. Urine is clear light yellow color. Patient has good po intake. No current needs. Patient repositioned, close to RN station.
--- NOTE | 2024-07-15 17:43 | EKG ---
[facility] [address] [facility] [place] [address] Signed Atrial-paced rhythm with prolonged AV conduction Low voltage QRS Nonspecific T wave abnormality Abnormal ECG When compared with ECG of 03-JUL-2024 16:40, Electronic atrial pacemaker has replaced Atrial fibrillation Non-specific change in ST segment in Anterior leads T wave inversion no longer evident in Anterior leads QT has shortened Confirmed by Jose Duke MD ([id number]) on 07/15/2024 5:43:32 PM Electronically Signed By: JOSE DUKE DO 07/15/24 1743 PATIENT NAME: SHAVONNE ESTEBAN Electrocardiogram DATE OF : 44 PHYSICIAN: JOSE DUKE DO REPORT #: [id number] REPORT IS CONFIDENTIAL AND NOT TO BE RELEASED WITHOUT AUTHORIZATION
--- NOTE | 2024-07-15 19:23 | NUR ---
REPORT RECIEVED FROM DAY SHIFT RN. PATIENT RESTING IN BED ON BACK WITH EYES CLOSED. RESPIRATIONS EVEN AND UNLABORED. CALL LIGHT IN REACH.
--- NOTE | 2024-07-15 20:48 | NUR ---
VS AND I&Os OBTAINED AND RECORDED. SCHEDULED MEDICATION ADMINISTERED. PRN PAIN MEDICATIOIN ADMINISTERED PER PATIENT REQUEST. PATIENT DENIES FURTHER NEEDS. CALL LIGHT IN [facility].
--- NOTE | 2024-07-15 21:41 | NUR ---
PATIENT INCONTINENT OF STOOL. NEW NUNU, SLIDE SHEET, BREIF, AND PUREWICK PLACED AFTER ROSALINE CARE AND BED BATH PROVIDED. 2 WARM BLANKETS PROVIDED. PATIENT STATES "I FEEL SO MUCH BETTER". 2 WARM BLANKETS PROVIDED. BED ALARM ON FOR SAFETY. BLE ELAVATED ON PILLOW. ASSESSMENT COMPLETE. BOTH IVs FLUSH WNL. FRESH ICE WATER PROVIDED. ENSURE PROVIDED PER PATIENT REQUEST. NO FURTHER NEEDS AT THIS TIME. CALL LIGHT IN REACH.
--- NOTE | 2024-07-15 23:15 | NUR ---
PATIENT RESTING IN BED ON BACK WITH EYES CLOSED. RESPIRATIONS EVEN AND UNLABORED. CALL LIGHT IN REACH.
[2024-07-16] VITALS (8 sets, daily range): BP systolic 100–118; BP diastolic 44–60
--- NOTE | 2024-07-16 00:25 | NUR ---
PATIENT RESTING IN BED WITH EYES CLOSED. RESPIRATIONS EVEN AND UNLABORED. CALL LIGHT IN REACH.
--- NOTE | 2024-07-16 02:14 | NUR ---
PATIENT RESTING IN BED ON BACK WITH EYES CLOSED. RESPIRATIONS EVEN AND UNLABORED. CALL LIGHT IN REACH.
--- NOTE | 2024-07-16 04:04 | NUR ---
PATIENT RESTING IN BED WITH EYES CLOSED. RESPIRATIONS EVEN AND UNLABORED. CALL LIGHT IN REACH.
[2024-07-16 05:46] LABS: ANION GAP 5.5 (7-21); BUN/CREATININE RATIO 22.07 (6.0-28.6); CALCIUM 8.2 mg/dL (8.5-10.1); CREATININE, SERUM 0.77 mg/dL (0.55-1.02); MAGNESIUM 1.5 mg/dL (1.8-2.4); POTASSIUM 4.5 mmol/L (3.5-5.1)
--- NOTE | 2024-07-16 05:49 | NUR ---
VS AND I&Os OBTAINED AND RECORDED. PRN PAIN MEDICATION ADMINSITERED PER PATIENT REQUEST. PATIENT BREIF SOILED WITH URINE. NEW BRIEF AND PUREWICK PLACED AFTER ROSALINE CARE PROVIDED. BARRIER CREAM APPLIED. PATIENT DENIES FURTHER NEEDS AT THIS TIME. CALL LIGHT IN REACH.
--- NOTE | 2024-07-16 06:10 | NUR ---
PATIENT STATED "I DIDN'T EAT MUCH FOR DINNER LAST NIGHT BECAUSE IT WAS HARD TO BITE INTO SOME OF THE FOOD WITH MY DENTURES". PATIENT THEN STATED "I WOULD PREFER SOFT FOOD". THIS RN ADDED A SECONDARY DIET FOR SOFT FOOD.
--- NOTE | 2024-07-16 07:40 | NUR ---
RECEIVED REPORT FROM NIGHT RN, PT RESTING IN BED WITH EYES CLOSED. CALL LIGHT WITHIN REACH, BED ALARM ACTIVATED. ALL PT CARE NEEDS MET AT THIS TIME.
[2024-07-16] MEDS ORDERED: MAGNESIUM SULFATE 2 GM/50 ML BAG IV ONE (08:15)
[2024-07-16] MEDS ORDERED: CLONIDINE HCL0.1 MG PO (08:37)
--- NOTE | 2024-07-16 08:37 | NUR ---
MED REC COMPLETE
[2024-07-16] MEDS ORDERED: TORSEMIDE 20 MG TAB PO SCH (09:00)
--- NOTE | 2024-07-16 09:30 | NUR ---
PT GOING TO WORK WITH PT THIS MORNING. IV MG STARTED AND INFUSING. PT TOLERATED ORAL MEDS WITHOUT ANY ISSUES SWALLOWING. TOLERATED SOFT BREAKFAST WITHOUT ANY ISSUES. CALL LIGHT WITHIN REACH. ALL PT CARE NEEDS MET AT THIS TIME.
[2024-07-16] MEDS ORDERED: VANCOMYCIN PER PHARMACY PROTOCOL IV SCH (10:02)
[2024-07-16] MEDS ORDERED: DAPTOmycin 500 MG/10 ML VIAL IV SCH (10:30)
--- NOTE | 2024-07-16 10:39 | NUR ---
CALLED SON, SHEREE, DISCUSSED PLAN FOR DC. STATES HE WILL COME TO HOSPITAL TO SPEAK WITH PATIENT. HE WAS CONCERNED PATIENT WOULD BE PLACED IN [place] INDEFINITELY, INFORMED HIM SHE IS GOING TO SKILLED NEEDS. THIS INCLUDES PT/OT TO STRENGTHEN AND RETURN HOME SAFELY. STATES "WHATEVER MOM WANTS."
--- NOTE | 2024-07-16 11:09 | NUR ---
PT NOT AVAIALBLE FOR VISIT. PROVIDED PRAYER.
--- NOTE | 2024-07-16 11:10 | NUR ---
PT WAS UP IN CHAIR, REQUESTING TO GO BACK TO BED. ASSISTED RECOVERY ADVOCATE WITH JOSE TO GET PATIENT BACK TO BED. TOLERATING GETTING BACK WITH JOSE WELL. BOOTS LEFT IN PLACE, BLE ELEVATED ON PILLOWS. IV MG CONTINUES TO INFUSE. ALL PT CARE NEEDS MET AT THIS TIME.
--- NOTE | 2024-07-16 11:14 | NUR ---
PT CALLED WANTED TO GO BACK TO BED NURSE CAME IN TO HELP ME. PT GOT BACK TO BED AND I DID ROSALINE CARE AND CHANGED ROLAND @1100. CALL LIGHT IS WITHIN REACH PT DIDNT NEED ANYTHING ELSE.
--- NOTE | 2024-07-16 11:37 | NUR ---
IV MAG COMPLETED. IV DAPTO GIVEN ORDERED. SALINE LOCKED X2 AT THIS TIME, IV SITES WORK WELL. PT REQUESTING ANOTHER WARM BLANKET WHICH WAS PROVIDED. CALL LIGHT WITHIN REACH, ALL PT CARE NEEDS MET, BED ALARM IN PLACE FOR SAFETY. ALL PT CARE NEEDS MET AT THIS TIME.
--- NOTE | 2024-07-16 12:51 | NUR ---
WHEELCHAIR VAN SCHEDULED FOR 1200 TOMORROW. SUE AT [facility] NOTIFIED. PATIENT NOTIFIED.
--- NOTE | 2024-07-16 16:33 | NUR ---
PT SON CALLED ABOUT GETTING REFILLS FOR HER HOME MEDICATIONS, SPECIFICALLY THE ALLOPURINOL ON DISCHARGE TOMORROW, HE CALLED PCP OFFICE AND THEY ARE REQUIRING HER TO BE SEEN. SON WAS VERY RUDE/CONDESCENDING ON THE PHONE TOWARDS ME, MD AWARE. HE IS AWARE OF REFILLS NEEDED ON DISCHARGE AND AGREES TO GIVE AT LEAST A 30 DAY SUPPLY. WILL PASS THIS INFORMATION ON TO NIGHT RN/CASE MGMT FOR DISCHARGE TOMORROW.
--- NOTE | 2024-07-16 16:36 | NUR ---
PT RESTING IN BED WITH EYES CLOSED, CALL LIGHT WITHIN REACH AT THIS TIME. NO PT CARE NEEDS CURRENTLY.
--- NOTE | 2024-07-16 16:45 | NUR ---
ATTEMPTED TO GET PATIENT UP FOR DINNER, HER SON WAS VISITING AT LUNCH AND SHE REFUSED. THIS EVENING SHE IS C/O OF PAIN TO BLE, REFUSING TO GET UP TO CHAIR BUT WANTS TO EAT DINNER IN BED. PT ENCOURAGED MULTIPLE TIMES TO GET UP OUT OF BED FOR MOBILITY BUT REFUSED.
[2024-07-16 17:32] LABS: IRON BINDING CAPACITY TOTAL 139 ug/dL (240-450); IRON,SERUM OR PLASMA 20 ug/dL (28-170); TRANSFERRIN SATURATION 14 %sat (20-50)
--- NOTE | 2024-07-16 19:25 | NUR ---
REPORT RECEIVED FROM LUH BACON. pt RESTING IN THE BED. pt DENIES ANY NEEDS AT THIS TIME. BOARD UPDATED. CALL LIGHT WITHIN REACH.
[2024-07-16 20:57] LABS: FERRITIN 573 ng/mL (11-328)
--- NOTE | 2024-07-16 21:03 | NUR ---
DIETARY AIDE OBTAINED VITALS AND OUTPUT. NO NEW INTAKE AT THIS TIME. PUREWICK CANNISTER EMPTIED. PT STATES THAT SHE IS READY FOR HER MEDS. RN NOTIFED. PT STATES NO FURHTER NEEDS FROM THIS DIETARY AIDE. CALL LIGHT WITHIN REACH.
--- NOTE | 2024-07-16 21:20 | NUR ---
ASSESSMENT AND VITAL SIGNS DONE. pt REQUEST YOGURT. MEDICATIONS ADMINISTERED, SEE MAR. pt C/O 01/21 PAIN. PRN PAIN MEDICATION ADMINISTERED, SEE MAR. pt DENIES ANY OTHER NEEDS AT THIS TIME. PURE WICK IN PLACE. CALL LIGHT WITHIN REACH. WATER REFRESHED. CALL LIGHT WITHIN REACH.
--- NOTE | 2024-07-16 23:15 | NUR ---
pt RESTING IN THE BED WITH EYES CLOSED. RR EVEN AND UNLABORED. CALL LIGHT WITHIN REACH.
--- NOTE | 2024-07-17 00:50 | NUR ---
pt RESTING IN THE BED WITH EYES CLOSED. RR EVEN AND UNLABORED. CALL LIGHT WITHIN REACH.
--- NOTE | 2024-07-17 03:01 | NUR ---
CALL LIGHT ANSWERED, PRN PAIN MEDICATION GIVEN FOR REPOTED 10/10 PAIN IN BLE-SEE EMAR. BED ALARM RESUMED AND CALL LIGHT IN REACH AFTER REPOSITIONING pt.
[2024-07-17 05:26] LABS: BASOPHILS 1.4 % (0-2); EOSINOPHILS 1.9 % (0-6); HEMATOCRIT 28.7 % (35.0-50.0); HEMOGLOBIN 9.8 g/dL (12.0-18.0); LYMPHOCYTES 27.1 % (24-44); MCH 33.4 (27-36); MCHC 34.3 g/dl (30-36); MCV 97.3 fl (81-99); MONOCYTES 8.7 % (0-12); NEUTROPHILS 60.9 % (39-80); PLATELET COUNT 563 K/uL (140-440); RBC 2.95 M/ul (4.3-5.7); RDW 15.1 (10.5-15.0)
[2024-07-17 05:33] LABS: ANION GAP 3.5 (7-21); BUN/CREATININE RATIO 20.51 (6.0-28.6); CALCIUM 8.6 mg/dL (8.5-10.1); CREATININE, SERUM 0.78 mg/dL (0.55-1.02); MAGNESIUM 1.7 mg/dL (1.8-2.4); POTASSIUM 4.5 mmol/L (3.5-5.1)
[2024-07-17 06:18] VITALS: BP 109/52
--- NOTE | 2024-07-17 06:19 | NUR ---
SENIOR WINDOWS SYSTEMS ADMINISTRATOR OBTAINED VITALS AND I&O. PT STATES NO NEEDS AT THIS TIME. CALL LIGHT WITHIN REACH.
--- NOTE | 2024-07-17 06:23 | NUR ---
NOTIFIED OF pts CRITICAL LAB VALUE. NO NEW ORDERS AT THIS TIME.
--- NOTE | 2024-07-17 07:18 | NUR ---
REPORT RECEIVED FROM RN PLASTIC SURGERY JORDI COTA. PATIENT IS LYING IN BED WITH EYES CLOSED AND RESPIRATIONS ARE EVEN AND UNLABORED. CALL LIGHT AND PERSONAL BELONGINGS ARE WITHIN REACH.
[2024-07-17] MEDS ORDERED: MAGNESIUM SULFATE 2 GM/50 ML BAG IV ONE (08:30)
--- NOTE | 2024-07-17 08:30 | NUR ---
PATIENT IS SITTING UPRIGHT IN BED AND EATING BREAKFAST AFTER THE PATIENTS PUREWICK GOT CHANGED. PATIENT REQUESTING PAIN MEDICATION AT THIS TIME. PATIENT STATED NO FURTHER NEEDS. CALL LIGHT AND PERSONAL BELONGINGS ARE WITHIN REACH.
--- NOTE | 2024-07-17 08:36 | NUR ---
PATIENT IN BED AT THIS TIME. 2 CNAS WENT INTO ROOM TO CHANGE PUREWICK AND BRIEF. CNAS CHANGED PUREWICK AND BRIEF AT 0830. DULL COAT MILL OPERATOR ALSO EMPTIED PUREWICK CANNISTER. PATIENT ASKED FOR PAIN MEDICATION, RN NOTIFIED. CALL LIGHT WITHIN REACH, NO FURTHER NEEDS AT THIS TIME.
[2024-07-17] MEDS ORDERED: DOXYCYCLINE HYCLATE 100 MG CAP PO SCH (09:00)
[2024-07-17] MEDS ORDERED: SOTALOL HCL 80 MG TAB PO SCH (09:00)
--- NOTE | 2024-07-17 09:09 | NUR ---
SPOKE TO PATIENT ABOUT THE DC PLAN. THE PATIENT WILL BE GOING TO [place] TODAY. THE PLAN IS TO USE THE [facility] FOR TRANSPORT.
[2024-07-17 09:35] VITALS: BP 106/45
[2024-07-17 09:39] VITALS: BP 106/45
[2024-07-17 09:47] VITALS: BP 106/45
--- NOTE | 2024-07-17 10:25 | NUR ---
0900 MEDICATIONS ADMINISTERED PER THE EMAR. PATIENT IS ALERT AND ORIENTED TIMES FOUR. PATIENT IS ON ROOM AIR. LUNG SOUNDS ARE CLEAR IN THE UPPER LOBES AND DIMINISHED IN THE BASES BILATERALLY. CARDIAC WITH RHYTHM PACED. PACEMAKER NOTED ON THE LEFT SIDE OF THE PATIENTS CHEST. RADIAL AND PEDAL PULSES ARE STRONG BILATERALLY. CAPILLARY REFILL IN THE UPPER AND LOWER EXTREMITIES IS LESS THAN 3 SECONDS BILATERALLY. PATIENT IS ON A 2 GRAM SODIUM DIET WITH SOFT TEXTURES. PATIENT HAS DENTURES. BOWEL TONES ARE ACTIVE IN ALL FOUR QUADRANTS. PATIENT WITH LARGE LOOSE STOOL AT THIS TIME. PUREWICK AND BRIEF CHANGED. ROSALINE CARE COMPLETE. BLE GENERALIZED EDEMA NOTED. IV IN THE RAC FLUSHED WITH 10 ML NORMAL SALINE AND IS SALINE LOCKED. IV DRESSING IS CLEAN, DRY, AND INTACT. IV IN THE LAC WITH MAGNESIUM SULFATE INFUSION RUNNING. IV FLUSHED WITH 10 ML NORAL SALINE. IV DRESSING IS CLEAN, DRY, AND INTACT. PATIENT IS POSITIONED ON THEIR RIGHT SIDE WITH 2 PILLOWS TUCKED TO PROVIDE SUPPORT. SKIN ASSESSMENT COMPLETE WITH JORDI CAVAZOS. SKIN WITH REDDENDED AREA ON THE BACK AND COCCYX THAT IS BLANCHABLE. SCATTERED BRUISING ON THE UPPER EXTREMITIES NOTED. SCAB TO THE RIGHT ARM THAT IS INTACT. PATIENT STATED NO FURTHER NEEDS AT THIS TIME. CALL LIGHT AND PERSONAL BELONGINGS ARE WITHIN REACH.
--- NOTE | 2024-07-17 11:41 | NUR ---
REPORT GIVEN TO SERGEY AT [place]. SERGEY WITH NO FURTHER QUESTIONS OR CONCERNS AT THIS TIME. CALL ENDED.
--- NOTE | 2024-07-17 11:45 | NUR ---
PT NOT AVAILABLE FOR VISIT. PROVIDED PRAYER.
== END 2024-07-17 13:05 | DRG 641 ==
LOC: ED 14:23 → MS 17:13
PROVIDERS: Emergency Medicine; ADMIT Student in an Organized Health Care Education/Training Program; ATTEND Student in an Organized Health Care Education/Training Program
DX: R62.7 Adult failure to thrive (principal); E87.3 Alkalosis; E87.1 Hypo-osmolality and hyponatremia; I48.20 Chronic atrial fibrillation, unspecified; R64 Cachexia; E87.20 Acidosis, unspecified; R53.1 Weakness; I25.10 Atherosclerotic heart disease of native coronary artery without angina pectoris; M54.50 Low back pain, unspecified; G89.29 Other chronic pain; I11.0 Hypertensive heart disease with heart failure; I50.9 Heart failure, unspecified; D69.6 Thrombocytopenia, unspecified; E86.0 Dehydration; D72.829 Elevated white blood cell count, unspecified; D64.9 Anemia, unspecified; M25.572 Pain in left ankle and joints of left foot; D75.839 Thrombocytosis, unspecified; L89.159 Pressure ulcer of sacral region, unspecified stage; E78.5 Hyperlipidemia, unspecified; M10.9 Gout, unspecified; M62.838 Other muscle spasm; I10 Essential (primary) hypertension; Z95.5 Presence of coronary angioplasty implant and graft; I25.2 Old myocardial infarction; Z98.890 Other specified postprocedural states; Z86.73 Personal history of transient ischemic attack (TIA), and cerebral infarction without residual deficits; Z90.89 Acquired absence of other organs; Z88.0 Allergy status to penicillin; Z88.2 Allergy status to sulfonamides; Z88.5 Allergy status to narcotic agent; Z90.710 Acquired absence of both cervix and uterus; Z79.01 Long term (current) use of anticoagulants
CPT/HCPCS: 36415; 36600; 51702; 71045; 73590; 73600; 80048; 80053; 80162; 80307; 81003; 82553; 82607; 82728; 82746; 82803; 83550; 83605; 83735; 84484; 85025; 85045; 85060; 86140; 87040; 87502; 93005; 93010; 97163; 97167; 97530; 99285-25; A9270; J0878; J1650; J1956; J3475; J7040; J7121; U0002

== ENCOUNTER 2024-10-17 17:39 | Inpatient (IN) | payer MEDICARE ==
[~2024-10-17] VITALS: Ht 162.6 cm; Wt 49.9 kg
[~2024-10-17 17:39] MED LIST changes: +CLONIDINE HCL0.1 MG PO; +MAG-OXIDE400 MG PO; +POTASSIUM CHLO10 MEQ PO; +SOTALOL80 MG PO
--- OUTSIDE RECORDS SUMMARY | 2024-10-17 17:45 | XMS ---
PreManage Notification: SHAVONNE ESTEBAN Security Director Speech Language Events No recent Security Events currently on file CRITERIA MET - Group Notification [facility]-Xochilt Miranda PHONE: [phone] DONOVAN MARTINEZ Nurse Practitioner: Family Current PHONE: [phone] TRAN MCPHERSON Physician Assistant Xochilt ADDISON PHONE: [phone] JONATHAN ROBLES Internal Medicine: Cardiovascular Disease Current PHONE: [phone] DANYELLE SOMMER Nurse Practitioner: Adult Health [facility] DORIS PHONE: [phone] Keith has no Care Guidelines for this patient. Madeleine VISIT COUNT (12 MO.) [address] [facility] TOTAL 4 NOTE: Visits indicate total known visits. ED/UCC VISIT TRACKING (12 MO.) 10/17/2024 17:39 [facility] [place] TYPE: Emergency COMPLAINT: - FAILURE TO THRIVE 07/14/2024 14:23 [facility] [place] TYPE: Emergency COMPLAINT: - WEAKNESS 07/03/2024 16:00 [facility] [place] TYPE: Emergency COMPLAINT: - NAUSA/VOMITING DIAGNOSES: - Allergy status to narcotic agent - Allergy status to penicillin - Allergy status to sulfonamides - Constipation, unspecified - Heart failure, unspecified - Hypertensive heart disease with heart failure - snf (current) use of anticoagulants - Old myocardial infarction - Other supervisor pastry (current) drug therapy - Pneumonia, unspecified organism - Unspecified atrial fibrillation 12/12/2023 16:56 [facility] [place] TYPE: Emergency COMPLAINT: - POSS STROKE DIAGNOSES: - Allergy status to narcotic agent - Allergy status to penicillin - Allergy status to sulfonamides - Coagulation defect, unspecified - Dysphasia - Heart failure, unspecified - Hypertensive heart disease with heart failure - glazier stained glass (current) use of anticoagulants - Other long-term (current) drug therapy - Slurred speech - Unspecified atrial fibrillation - Unspecified convulsions INPATIENT VISIT TRACKING (12 MO.) 07/14/2024 17:[address] [facility] [place] TYPE: Medical Surgical COMPLAINT: - WEAKNESS/ FAILURE TO THRIVE DIAGNOSES: - Acidosis, unspecified - Acidosis, unspecified - Acquired absence of both cervix and uterus - Acquired absence of both cervix and uterus - Acquired absence of other organs - Acquired absence of other organs - Adult failure to thrive - Adult failure to thrive - Alkalosis - Alkalosis - Allergy status to narcotic agent - Allergy status to narcotic agent - Allergy status to penicillin - Allergy status to penicillin - Allergy status to sulfonamides - Allergy status to sulfonamides - Anemia, unspecified - Anemia, unspecified - 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 - 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 - Cachexia - Cachexia - Chronic atrial fibrillation, unspecified - Chronic atrial fibrillation, unspecified - Dehydration - Dehydration - Elevated white blood cell count, unspecified - Elevated white blood cell count, unspecified - Essential (primary) hypertension - Essential (primary) hypertension - Gout, unspecified - Gout, unspecified - Heart failure, unspecified - Heart failure, unspecified - Hyperlipidemia, unspecified - Hyperlipidemia, unspecified - Hypertensive heart disease with heart failure - Hypertensive heart disease with heart failure - Hypo-osmolality and hyponatremia - Hypo-osmolality and hyponatremia - glazier stained glass (current) use of anticoagulants - glazier stained glass (current) use of anticoagulants - Low back pain, unspecified - Low back pain, unspecified - Old myocardial infarction - Old myocardial infarction - Other chronic pain - Other chronic pain - Other muscle spasm - Other muscle spasm - Other specified postprocedural states - Other specified postprocedural states - Pain in left ankle and joints of left foot - Pain in left ankle and joints of left foot - Personal history of transient ischemic attack (TIA), and cerebral infarction without residual deficits - Personal history of transient ischemic attack (TIA), and cerebral infarction without residual deficits - Presence of coronary angioplasty implant and graft - Presence of coronary angioplasty implant and graft - Pressure ulcer of sacral region, unspecified stage - Pressure ulcer of sacral region, unspecified stage - Thrombocytopenia, unspecified - Thrombocytopenia, unspecified - Thrombocytosis, unspecified - Thrombocytosis, unspecified - Weakness 07/04/2024 01:01 [facility] [place] TYPE: General Medicine DIAGNOSES: - Dysphagia, unspecified - Esophageal obstruction - PNA R middle lobe bronch obstruction 12/13/2023 03:27 [facility] [place] TYPE: Medical Surgical DIAGNOSES: - Traumatic subdural hemorrhage with loss of consciousness status unknown, initial encounter [email or web address]
[2024-10-17] MEDS ORDERED: SODIUM CHLORIDE 0.9% 1,000 ML IV ONE (18:15)
[2024-10-17 19:08] LABS: BASOPHILS 0.2 % (0-2); EOSINOPHILS 0.4 % (0-6); HEMATOCRIT 33.1 % (35.0-50.0); HEMOGLOBIN 11.8 g/dL (12.0-18.0); MCH 32.4 (27-36); MCHC 35.8 g/dl (30-36); MCV 90.6 fl (81-99); MONOCYTES 5.8 % (0-12); NEUTROPHILS 81.6 % (39-80); PLATELET COUNT 290 K/uL (140-440); RBC 3.65 M/ul (4.3-5.7); RDW 17.5 (10.5-15.0)
[2024-10-17 19:24] LABS: MAGNESIUM 1.8 mg/dL (1.8-2.4)
[2024-10-17 19:26] LABS: DIGOXIN 1.3 ng/dL (0.9-2.0)
[2024-10-17 19:27] LABS: ALBUMIN 2.2 g/dL (3.4-5.0); ALBUMIN/GLOBULIN RATIO 0.49 (1.1-2.4); ANION GAP 9.5 (7-21); BILIRUBIN, TOTAL 0.9 ng/dL (0.2-1.0); BUN/CREATININE RATIO 58.1 (6.0-28.6); CALCIUM 10.5 mg/dL (8.5-10.1); CREATININE, SERUM 0.74 mg/dL (0.55-1.02); POTASSIUM 3.5 mmol/L (3.5-5.1); PROTEIN, TOTAL 6.7 g/dL (6.4-8.2)
[2024-10-17] MEDS ORDERED: HYDROCODONE/ACETA 5/325 TAB PO ONE (20:45)
[2024-10-17] MEDS ORDERED: SOTALOL HCL 80 MG TAB PO SCH (21:00)
[2024-10-17] MEDS ORDERED: APIXABAN 2.5 MG TAB PO SCH (21:00)
--- NOTE | 2024-10-17 21:06 | NUR ---
BEDSIDE REPORT RECEIVED FROM LAMIN Luciano, ED RN. pt AWAKE AND RESTING IN BED, ON RA. RR EVEN AND UNLABORED, NO DISTRESS NOTED. VARIOUS OPEN SORES AND WOUNDS NOTED-PHOTOS ALREADY OBTAINED BY ED STAFF PRIOR TO THIS RN'S ARRIVAL AND PLACED IN CHART. SORES MARKETING FORECASTER, FOUL ODOR. pt ARRIVED TO MS FLOOR AT 2116, TRANSFERRED VIA TRANSFER SHEET WITH X2PA, pt FEARFUL OF FALLING AND NEEDS COAXING/CUEING TO ASSIST WITH TRANSFER. BED ALARM ON FOR SAFETY. pt [place], BUT RECOGNIZES PRIMARY RN KENDRICK UPON ARRIVAL TO FLOOR. BEDSIDE REPORT PROVIDED TO PRIMARY RN KENDRICK, PRIMARY RN TO TAKE OVER pt CARE. CALL LIGHT IN REACH.
[2024-10-17 21:29] VITALS: BP 140/69
[2024-10-17] MEDS ORDERED: HYDROCODONE/ACETA 5/325 TAB PO PRN (21:30)
[2024-10-17] MEDS ORDERED: DEXTROSE 5% - NACL 0.45% 1,000 ML IV SCH (21:30)
[2024-10-17] MEDS ORDERED: ACETAMINOPHEN 325 MG TAB PO PRN (21:30)
[2024-10-17] MEDS ORDERED: ondansetron HCL 4 MG/2 ML VIAL IV PRN (21:30)
--- NOTE | 2024-10-17 21:52 | NUR ---
2117: PT ADMITTED TO ROOM 120 FROM ER VIA STRETCHER, ALERT AND ORIENTED. WEAK. 2PA AND SLIDING SHEET TO TRANSFER. HOB ELEVATED, MULTIPLE BRUISING AND SCRATCHES ARMS AND LEGS, OPEN WEEPY AREAS WITH SS DRANAGE BUTTOCKS AREA. ATTEND SIN PLACE, INCONTINENT OF UIRN, SKIN CARE. ORIENTED TO ROOM.
--- NOTE | 2024-10-17 22:34 | NUR ---
7 open wound in buttocks covered with allevyn, areas in different degrees of healing, and ss drainage in 5/6 wounds. bruising arms and L top of foot. very stiff LE, required several cues when turned, was incontinent of urine, skinc are done, red periarea done, was incontinent of soft brown bm , skin care done, clean attends in place and purewick applied. procedure explained, stated understanding, Pt stated that she is on a soft diet at home, will notify kitches. Bedside swallow evaluation done, no problems, tolerated well, meds given with puding, reminded to do chin tucks, stated understanding, tokk several verbal cues, no cough, tolerated well, slow to swallow. hob elevated. Bed alrms on for safety. IVF infusing w/o problems, oriented to room and procedures, stated understanding
--- NOTE | 2024-10-17 23:50 | NUR ---
AWAKENS EASILY, ON ROOM AIR, HOB ELEVATED, IVF INFUSING, INFILTRATION NOTED, IVF STOPPED, WILL RESTART, PROCEDURE EXPLAINED STATED UNDERSTANDING. REPOSITION UPPER BODY BY SELF. LE ELEVATED . BED ALARMS IN PLACE, DENIES C/O PAIN
[2024-10-18] VITALS (10 sets, daily range): BP systolic 95–129; BP diastolic 50–71
--- NOTE | 2024-10-18 02:35 | NUR ---
tried 2x to restart iv w/o success. Dr Maria notified via phone, new orders to hold and try again in am. encourage po fluids, and observe for aspiration. Pt alert and oriented, cooperative, has been able to tolerate fluids well, ate pudin w/o problems. turned and repostioned
--- NOTE | 2024-10-18 03:43 | NUR ---
Turned and respositoned, tolerated well. on room air, pure wick in place. still unable to restart IV, Dr Maria was notified earlier and orders to hold restarting IV site for now. Pt LE still very stiff, elevated with pillows, edema to LFA previous infiltrated IV site edematous.
--- NOTE | 2024-10-18 05:35 | NUR ---
AWAKENS EASILY. COOPERATIVE WITH LAB DRAWNS AND TURNING. ON ROOM AIR, PURE WICK IN PLACE DRAINING CLOUDY DARK COLORED URINE. ATTENS IN PLACE, MULTIPLE BRUISING AND SCABBED OVER AREAS OVER ARMS AND LEG HEALING, MULTIPLE ALLEVYNS TO BUTTOCKS AREA IN PLACE. TURNED. TOLERATING SIPS OF CLEAR FLUIDS. PLEASNT, ALERT AND ORIENTED. STILL UNABLE TO RESTART IV SITE
--- NOTE | 2024-10-18 07:11 | NUR ---
VERBAL REPORT RECEIVED FROM JORDI MARKS. PT AWAKE IN BED, REQUESTS KAMERON [facility]ERS CNA, INTO ASSIST.
[2024-10-18 08:22] LABS: BASOPHILS 0.9 % (0-2); EOSINOPHILS 0.7 % (0-6); HEMATOCRIT 30.2 % (35.0-50.0); LYMPHOCYTES 10.4 % (24-44); MCH 30.2 (27-36); MCHC 33.2 g/dl (30-36); MCV 91.1 fl (81-99); MONOCYTES 3.9 % (0-12); NEUTROPHILS 84.1 % (39-80); PLATELET COUNT 309 K/uL (140-440); RBC 3.31 M/ul (4.3-5.7); RDW 17.9 (10.5-15.0)
[2024-10-18 08:32] LABS: ANION GAP 10.1 (7-21); BUN/CREATININE RATIO 55.93 (6.0-28.6); CALCIUM 9.5 mg/dL (8.5-10.1); CREATININE, SERUM 0.59 mg/dL (0.55-1.02); MAGNESIUM 1.6 mg/dL (1.8-2.4); POTASSIUM 3.1 mmol/L (3.5-5.1)
[2024-10-18] MEDS ORDERED: LOSARTAN POTASSIUM 25 MG TAB PO SCH (09:00)
[2024-10-18] MEDS ORDERED: DIGOXIN 125 MCG TAB PO SCH ×2 (09:00→21:00)
[2024-10-18] MEDS ORDERED: MAGNESIUM SULFATE 2 GM/50 ML BAG IV SCH (09:15)
[2024-10-18] MEDS ORDERED: POTASSIUM CHLORIDE 10 MEQ TABCR PO ONE ×3 (09:15→20:15)
[2024-10-18] MEDS ORDERED: POTASSIUM PHOSPHATE 30 MMOL in DEXTROSE 5% 500 ML IV ONE (10:30)
--- NOTE | 2024-10-18 10:45 | NUR ---
DR. PAIGE NOTIFIED THAT LOSARTAN WAS HELD THIS AM FOR SBP LESS THAN 110 AND SBP DROP GREATER THAN 20 POINTS FROM RECENT BLOOD PRESSURES.
[2024-10-18] MEDS ORDERED: ACETAMINOPHEN 325 MG TAB PO PRN (11:00)
[2024-10-18] MEDS ORDERED: ondansetron HCL 4 MG/2 ML VIAL IV PRN (11:00)
[2024-10-18] MEDS ORDERED: PHARMACY RENAL DOSE ADJUSTMENT 1 DOSE MISC PO SCH (12:00)
[2024-10-18] MEDS ORDERED: OXYCODONE HCL 5 MG TAB PO PRN (13:00)
[2024-10-18] MEDS ORDERED: TORSEMIDE20 MG PO (14:23)
--- NOTE | 2024-10-18 16:53 | NUR ---
WOUND CARE CONSULTED FOR MULTIPLE PRESSURE INJURIES ON POSTERIOR ASPECT. HISTORY OF PRESENT ILLNESS: PT IS AN 84 YEAR OLD FEMALE ADMITTED ON 10/17/24 FOR FAILURE TO THRIVE, DECUDITUS ULCERS, GENERALIZED WEAKNESS AND ELECTROLYTE ABNORMALITIES. PT WAS DISCHARGED FROM A [facility] STAY JULY 17, 2024 TO [facility], SACRAL PRESSURE INJURIES DOCUMENTED TO BE PRESENT AT THE TIME OF DISCHARGE TO SNF. PAST MEDICAL HISTORY: HTN, CAD, S/P PCI, CONGESTIVE HEART FAILURE, A-FIB ON APIXABAN, HX OF SUBDURAL HEMATOMA WITH RESULTANT SEIZURE DISORDER, CHRONIC BACK PAIN, DECUBITUS ULCERS AND GOUT. HISTORY COLLECTED FROM CHART. ALLERGIES: PENICILLINS, SULFA, OXYCODONE MEGHAN SCORE: 11 SINCE RETURNING HOME FROM [facility] PT REPORTS SHE HAS HAD DIFFICULTY REPOSITIONING HER SELF IN BED, DOES NOT SIT UP IN BED OR CHAIR AND DOES NOT GET UP AND STAND. REPORTS HER SON ASSISTS HER AT HOME. PT AND OT ORDERED. PT CURRENTLY BED BOUND. UPON ASSESSMENT NOTED PRESSURE INJURIES X3 ON LEFT SACRUM, RIGHT SACRUM AND MID-SACRUM. WOUND ASSESSMENT: RIGHT SACRUM, ETIOLOGY PRESSURE INJURY. CLASSIFICATION: STAGE 3, PRESSURE INJURY SIZE: 1 CM X 2.6 CM X 0.1 CM WOUND BASE: 50% PINK MOIST NON-GRANULAR TISSUE, 50% ADHERENT YELLOW SLOUGH. EDGES: OPEN EXUDATE: Serous , SCANT ROSALINE WOUND SKIN: INTACT PINK MOIST WARM. PERIWOUND SKIN BLANCHABLE. WOUND ASSESSMENT: MID-SACRUM, ETIOLOGY PRESSURE INJURY. CLASSIFICATION: STAGE 3, PRESSURE INJURY SIZE: 3 CM X 1.2 CM X 0.1 CM WOUND BASE: 70% PINK MOIST NON-GRANULAR TISSUE, 30% ADHERENT YELLOW SLOUGH. EDGES: OPEN EXUDATE: Serous , SCANT ROSALINE WOUND SKIN: DENUDEMENT PINK MOIST WARM. PERIWOUND SKIN BLANCHABLE. SCATTERED AREAS OF PARTIAL TO FULL-THICKNESS SKIN BREAKDOWN NOTED IN PERIWOUND SKIN. WOUND ASSESSMENT: RIGHT SACRUM, ETIOLOGY PRESSURE INJURY. CLASSIFICATION: STAGE 4, PRESSURE INJURY SIZE: 5 CM X 3.5 CM X 2 CM WOUND BASE: 100% UNSTABLE ESCHAR. NON-VIABLE, SOFT LOOSE ESCHAR REMOVED VIA CONSERVATIVE SHARP DEBRIDEMENT, REVEALS WOUND DEPTH WITH MOIST WOUND BASE 30% PINK GRANULAR TISSUE, 70% LOOSELY ADHERENT YELLOW SLOUGH. EDGES: INDISTINCT EXUDATE: Serosanguineous YELLOW LIQUIFIED SLOUGH, MODERATE AMOUNT. ROSALINE WOUND SKIN: INTACT PINK DRY WARM. PERIWOUND SKIN BLANCHABLE. PICTURE OBTAINED, SEE PAPER CHART. WOUNDS OVER LEFT, RIGHT AND MID-SACRUM CLEANSED WITH VASE AND VASE ALLOWED TO SOAK. ESCHAR REMOVED FROM LEFT SACRAL WOUND AT THE MARGIN OF NON-VIABLE TISSUE TO VIABLE TISSUE. #11 BLADE USE. NO BLEEDING. WOUND CLEANSED WITH VASE. WOUNDS PATTED DRY. MEDIHONEY APPLIED TO WOUND BASE OF RIGHT AND MID-SACRAL WOUNDS. GAUZE IMPREGNATED WITH MEDIHONEY AND PLACED IN LEFT SACRAL WOUND BED. DRESSINGS SECURED THIS ADHERENT SILICONE FACE FOAM DRESSINGS X3. PT TOLERATED WELL IN LEFT SIDE LAYING POSITION. TREATMENT RECOMMENDATIONS RIGHT, LEFT AND MID-SACRUM WOUNDS CLEANSE WOUNDS WITH VASE WOUND CLEANSER AND PAT DRY. PLACE MEDIHONEY ON WOUND BASE OF RIGHT AND MID-SACRAL WOUNDS. IMPREGNATE GAUZE WITH MEDIHONEY AND FILL WOUND BASE OF LEFT SACRAL WOUND. COVER WOUNDS WITH ADHERENT FOAM DRESSINGS. CHANGE DRESSINGS THREE TIMES WEEKLY ON MONDAYS, SATURDAY AND FRIDAYS AND NEEDED WHEN LOOSE OR SOILED. RECOMMEND VERSA CARE P500 OR CITADEL C200 BED SURFACE. USE WAFFLE STATIC OVERLAY UNTIL BED SURFACE IS AVAILABLE. RECOMMEND NUTRITIONAL CONSULT FOR LOW WEIGHT AND CACHETIC APPEARANCE. GOALS: HEAL. DECREASE SKIN CONTACT WITH MOISTURE, URINE AND STOOL. WOUND CARE SIGNING OFF. PLEASE RE-CONSULT FOR ANY NEW CONCERNS.
--- NOTE | 2024-10-18 17:00 | NUR ---
WOUND CONSULT COMPLETE. PERICARE PROVIDED. NEW BREIF DONNED. NEW PUREWICK PLACED. PT ASSISTED TO SEMI-FOWLERS POSITION. PT EATS DINNER. NO REQUESTS AT THIS TIME.
[2024-10-18 18:14] LABS: ANION GAP 9.3 (7-21); BUN/CREATININE RATIO 39.18 (6.0-28.6); CREATININE, SERUM 0.74 mg/dL (0.55-1.02); POTASSIUM 3.3 mmol/L (3.5-5.1)
--- NOTE | 2024-10-18 19:10 | NUR ---
CITADEL C200 ALTERNATING PRESSURE BED SURFACE ARRIVES. PT TRANSFERRED TO [facility] VIA DRAW SHEET.
--- NOTE | 2024-10-18 19:50 | NUR ---
AWAKE, WAS C/O DISCOMFORT WHEN TURNED. DENIES ONECE SHE IS REPOSITONED IN BED. ON ROOM AIR. PURE WICK IN PLACE.
[2024-10-18] MEDS ORDERED: SOTALOL HCL 80 MG TAB PO SCH (21:00)
[2024-10-18] MEDS ORDERED: APIXABAN 2.5 MG TAB PO SCH (21:00)
[2024-10-18] MEDS ORDERED: MIRTAZAPINE 15 MG TAB PO SCH (21:00)
--- NOTE | 2024-10-18 21:45 | NUR ---
pt awake, alert and oriented, on room air, lungs clear bilat, IS at bedside. c/o back an dleg pain, repositioned and Oxycodone 5mg po given. received med and K po with puding. tolerated well, aspiration precautions in place, reminded to tuck chin with all po intake, several cues given. semireceptive. SL SANGEETHA patent. Dressing to buttocks CDI. pure wick in place, draining cloudy dark yellow urine colored. edema to ankles nad feet, bruised areas over arms legs and left foot, no changes. peeling soles no changes, declined lotion. Turned and repositoned Pt on Alternative Pressure Surface C-2000 bed. Reasoning for bed explained to pt as she feels "its going to make my pain and my sores worse" semireceptive. continues to reinforce teaching.
[2024-10-19] VITALS (8 sets, daily range): BP systolic 105–142; BP diastolic 51–79
--- NOTE | 2024-10-19 00:38 | NUR ---
RESTING, EYES CLOSED, NO SS/X DISTRESS ON C2000 BED.
--- NOTE | 2024-10-19 02:13 | NUR ---
AWAKE, PULLING AT LINE, QUIET, NO S/SX DISTRESS, PURE WICK IN PLACE.
--- NOTE | 2024-10-19 03:40 | NUR ---
PT WAS INCONTINENT OF SOFT BM, SKIN CARE DONE, CLEAN ATTENDS BARRIER CREAM, RED ROSALINE AND GLUTEAL AREA. PURE WICK REPLACED. DRESSINGS TO BUTTOCKS INTACT. PROCEDURES EXPLAINED. REQUIRED SEVERAL CUES. TURNED AND REPOSITIONED. HOB ELEVATED. EDEMA TO LE NO CHANGES. MEDICATED WITH OXYCODONE 5MG PO C/O 10/10 BACK AND LEGS PAIN, TOLERATING LIQUIDS WELL, NO COUGH. ALERT ANDORIENTED
[2024-10-19 05:27] LABS: BASOPHILS 0.1 % (0-2); EOSINOPHILS 1.7 % (0-6); HEMOGLOBIN 10.4 g/dL (12.0-18.0); LYMPHOCYTES 16.5 % (24-44); MCH 30.6 (27-36); MCHC 33.5 g/dl (30-36); MCV 91.4 fl (81-99); MONOCYTES 5.7 % (0-12); PLATELET COUNT 330 K/uL (140-440); RBC 3.39 M/ul (4.3-5.7); RDW 17.8 (10.5-15.0)
--- NOTE | 2024-10-19 05:31 | NUR ---
AWAKE, PULLED IV OUT, AND DECLINED TO HAVE IT RESTARTED . "I DO NOT NEED IT ANYMORE, I DONT HAVE THE BIG BAG GOING'. ASKED SEVERAL TIMES, WILL NOTIFY MD IN AM. NO C/O PAIN. PURE WICK IN PLACE AM
[2024-10-19 05:43] LABS: BUN/CREATININE RATIO 42.3 (6.0-28.6); CREATININE, SERUM 0.52 mg/dL (0.55-1.02); MAGNESIUM 1.9 mg/dL (1.8-2.4); PHOSPHORUS, INORGANIC 1.9 mg/dL (2.5-4.9)
--- NOTE | 2024-10-19 07:17 | NUR ---
VERBAL REPORT RECEIVED FROM JORDI MARKS. PT RESTS IN BED AWAKE, NO REQUESTS AT THIS TIME.
[2024-10-19] MEDS ORDERED: SODIUM PHOSPHATE 30 MMOL in DEXTROSE 5% 250 ML IV ONE (08:15)
[2024-10-19] MEDS ORDERED: allopurinoL 100 MG TAB PO SCH (09:00)
--- NOTE | 2024-10-19 10:00 | NUR ---
Spoke with Rebecca. She states she lives in a house with 7 steps. Her son lives with her. Per pt she is unable to provide care for herself. She states he son does not assist her with bathroom or showering. Pt has [facility] for wound care, PT/OT, and a bathaid. Pt also states her son does not assist her with food. She is essentially wc bound and cannot get into the shower. Pt is agreeable to speak with DHS, Aging and Disability. I will contact them later from her room so she can begin an assessment to check if she is eligible for salvage determiner medicaid.
--- NOTE | 2024-10-19 10:44 | NUR ---
UR CLINICAL REVIEW: 2 MN FOR [facility]ERSAL[facility]-MEETS INPT CRITERIA FOR WOUND MANAGEMENT GRG MEDICARE INPT 10/19/23 @ 0921 ORDER MATCHES REG NO AUTH REQUIRED PER MEDICARE GUIDELINES DISCHARGE PENDING FURTHER CASE MANAGEMENT EVAL FOR PLACEMENT
--- NOTE | 2024-10-19 12:45 | NUR ---
PT BACK TO BED PER REQUESTS. PT TRANSFERRED WITH USE OF SUE JONAS. PT PASSES BM IN BRIEF. PERICARE PROVIDED, NEW BRIEF AND PUREWICK PLACED. PT RESTS BED, CALL LIGHT IN REACH. STATES SHE DOES NOT WANT TO EAT LUNCH AT THIS TIME, REQUESTS TO REST. PT TOLERATES ACTIVITY FAIR, HAS ANXIETY WITH MOVEMENT.
--- NOTE | 2024-10-19 13:08 | NUR ---
PATIENT BACK TO BED FROM CHAIR, 3PA SERASTEDY AND GAITBELT USED. PATIENT HAD INCONT BM. ROSALINE CARE DONE. NEW ATTENDS IN PLACE. NEW PUREWICK PLACED. VITALS AND I&O'S DONE AND CHARTED. CALL LIGHT IN REACH. NO FURTHER NEEDS AT THIS TIME.
--- NOTE | 2024-10-19 13:58 | NUR ---
PT INDICATED DESIRE FOR ATTENTION. UPON ENTERING ROOM, PT ASKED TO BE RESPOSITION. RELAYED THIS REQUEST TO NURSING STAFF AND INFORMED PT. PT EXPRESSED GRATITUDE. NURSING STAFF INDICATED INTENT TO CHECK ON PT.
--- NOTE | 2024-10-19 14:00 | NUR ---
Called and spoke with Valentine from [facility]. Updated to concerns by ER and RN pt is not receiving appropriate care at home. .
--- NOTE | 2024-10-19 14:30 | NUR ---
Assisted pt to call and speak with Yamilka at [facility] and start eval for skilled nursing medicaid.
--- NOTE | 2024-10-19 15:41 | NUR ---
SPOKE WITH SHEREE, SON. HE CALLED AND STATES [facility] COM[facility] IN 3 DAYS A WEEK. PT/OT/ BATH AIDE/NURSE TO EVALUATE HER NEEDS. SHEREE STATES SHE HAS A PUREWICK SYSTEM AT HOME HE PAYS FOR OUT OF POCKET. HE STATES HE HAS BEEN CARING FOR PATIENT FOR 10 YEARS. STATES PATIENT DOES NOT ALWAYS USE HER PUREWICK, HE HAS TO CONVICE HER TO USE IT FREQUENTLY SO HER WOUNDS CAN HEAL.
--- NOTE | 2024-10-19 16:00 | NUR ---
Received a call from Yamilka at [facility]. She spoke with Rebecca and then called her son. She was told by the son they do not need help in the home as [facility] is assisting pt. They will call [facility] after she discharges from the hospital if help is needed. We discussed the pt story does not agree with what the son is stating about the amount of care provided. I let her know [facility] has called to give me an update on this pt x 2 and I have missed both calls. I attempted to return the call and they are in a meeting. I will call her tomorrow after I speak with HH to see how they feel care is being provided for this pt.
--- NOTE | 2024-10-19 16:06 | NUR ---
PT IS AWAKE IN BED. REQUIRES RE-ORIENTED TO PLACE. SITS UP IN BED, CALL LIGHT IN REACH. NO REQUESTS AT THIS TIME. WATER AND ENSURE IN REACH. WARM BLANKET PROVIDED.
--- NOTE | 2024-10-19 16:25 | NUR ---
Received a call from the son asking staff work with pt to use her purewic as he bought one "out of pocket" and pt has trouble getting it in place. I will notify staff the son would like them to work with pt on using the purewic.
--- NOTE | 2024-10-19 16:31 | NUR ---
medications reconciled
[2024-10-19 18:26] LABS: ANION GAP 9.7 (7-21); BUN/CREATININE RATIO 42.1 (6.0-28.6); CREATININE, SERUM 0.57 mg/dL (0.55-1.02); PHOSPHORUS, INORGANIC 4.3 mg/dL (2.5-4.9); POTASSIUM 3.7 mmol/L (3.5-5.1)
[2024-10-19 18:35] LABS: BILIRUBIN, URINE NEGATIVE (negative); BLOOD/HGB, URINE MODERATE (Negative); KETONE, URINE NEGATIVE (Negative); LEUK ESTERASE, URINE MODERATE (negative); NITRITE, URINE NEGATIVE (negative); PH, URINE 5.5 (5-7)
--- NOTE | 2024-10-19 18:36 | NUR ---
PT IS CONFUSED, CONTINUES TO NEED RE-ORIENTATION TO PLACE AND TIME. NOTED URINE IS CLOUDY IN PUREWICK CANISTER. MOST RECENT TEMP 99.5. DR. PAIGE NOTIFIED, NEW ORDER FOR UA RECEIVED. PT STRAIGHT CATHED VIA STERILE TECHNIQUE WITH 16 FR, SAMPLE SENT TO LAB. PT PASSED BM, PERICARE PROVIDED, NEW BRIEF DONNED. NEW PUREWICK PLACED. BED LOCKED, RAILS UP X4. CALL LIGHT IN REACH.
[2024-10-19 18:47] LABS: WHITE BLOOD CELLS, URINE >50 /HPF (0-5)
[2024-10-19 18:48] LABS: BACTERIA, URINE 1+ /hpf (negative); CASTS, URINE NONE SEEN \\lpf; COLLECTION TYPE, URINE CLEAN CATCH; CRYSTALS, URINE NONE SEEN (0-1+); EPITHELIAL CELLS, URINE NONE SEEN /lpf (0-1+); REFLEX CULTURE, URINE Yes (No)
[2024-10-19] MEDS ORDERED: CEFTRIAXONE/SODIUM CHLORIDE 1 GM/100 ML PIGGYBACK IV SCH (19:15)
[2024-10-19] MEDS ORDERED: SODIUM CHLORIDE 0.9% 500 ML IV SCH (19:15)
[2024-10-20] VITALS (10 sets, daily range): BP systolic 93–136; BP diastolic 49–64
--- NOTE | 2024-10-20 01:08 | NUR ---
WWAKE, STARING INTO SPACE AT TIMES, ALERT AND ORIENTED AND MILDY CONFUSED AT TIMES. NO C/O PAIN. SL PATENT. PURE WICK INPLCE. LE ELEVATED, CALM QUIET
--- NOTE | 2024-10-20 02:30 | NUR ---
awake, talking to self, answers appropriately, moved self from L side to R side. pillows were placed to lay head on R side, threw off bed, and quietly laying head on rail. pure widior in plac
--- NOTE | 2024-10-20 05:13 | NUR ---
Pure wick in place, changed, draining cloudy light tea colored urine. was incontinent of soft brown bm. skin care done. Much improvedgluteal and vaginal area noted, barrier cream applied. Allevyns to buttocks in place. SL L AC still in place, pt had taken off gauze applied earlier to safeguard againts accidentl pulling of iv by pt. All cares explained. unknown degree of understanding. Turned and repositioned in bed. took sips of fluids, tolerated well. Pt on C-2000 alternative pressuresurfacing bed. edema to LE no changes from earlier.
[2024-10-20 06:01] LABS: BASOPHILS 0.2 % (0-2); EOSINOPHILS 1.6 % (0-6); HEMOGLOBIN 10.2 g/dL (12.0-18.0); LYMPHOCYTES 18.7 % (24-44); MCHC 34.1 g/dl (30-36); MCV 91.1 fl (81-99); MONOCYTES 8.8 % (0-12); NEUTROPHILS 70.7 % (39-80); PLATELET COUNT 346 K/uL (140-440); RDW 18.2 (10.5-15.0)
[2024-10-20 06:14] LABS: ANION GAP 9.4 (7-21); BUN/CREATININE RATIO 42.85 (6.0-28.6); CALCIUM 8.8 mg/dL (8.5-10.1); CREATININE, SERUM 0.49 mg/dL (0.55-1.02); MAGNESIUM 1.8 mg/dL (1.8-2.4); PHOSPHORUS, INORGANIC 2.9 mg/dL (2.5-4.9); POTASSIUM 3.4 mmol/L (3.5-5.1)
--- NOTE | 2024-10-20 07:12 | NUR ---
VERBAL REPORT RECEIVED FROM JORDI MARKS. PT RESTS IN BED WITH EYES CLOSED, RESP EVEN AND UNLABORED.
[2024-10-20] MEDS ORDERED: POTASSIUM CHLORIDE 10 MEQ TABCR PO ONE (08:15)
--- NOTE | 2024-10-20 08:32 | NUR ---
PATIENT IN BED AT THIS TIME. DAIRY TECHNOLOGIST WENT INTO PATIENTS ROOM FOR HOURLY ROUNDS. CALL LIGHT WITHIN REACH, NO FURTHER NEEDS AT THIS TIME.
[2024-10-20] MEDS ORDERED: POTASSIUM CHLORIDE 10 MEQ TABCR ONE (10:36)
--- NOTE | 2024-10-20 11:06 | NUR ---
Attempted to see Marie. JACOBS in room speaking with pt as well as Renetta Garcia.
--- NOTE | 2024-10-20 11:30 | NUR ---
Spoke with Unique from [facility]. Updated I received a call from [facility]. They discussed this pt in their AM meeting and do not feel pt is safe at home. They feel pt is a heavy care pt and the son is discabled. They do not feel is can provide the care required by this pt. They are discussing discharging this pt. If they agree to stay in, the son will be required to sign a contract. The nurse is
--- NOTE | 2024-10-20 13:00 | NUR ---
I spoke with Rebecca and updated the , nurse, floor nurse feel she would benefit from returning to a SNF for wound care and therapy. Pt agrees to return. She is unsure if she wants to return to [facility]. I let her know I can send her to any SNF she would like to go, if they have a bed open. She agrees to [facility] or [facility]. Pt has 42 days for SNF stay left. I will send the chart. I will update her son.
--- NOTE | 2024-10-20 13:40 | NUR ---
Called and left a message for pts son requesting a return call.
--- NOTE | 2024-10-20 14:00 | NUR ---
Received a call from Yamilka at [facility]. She was notified by [facility] of pts need and will attempt to call Rebecca and complete the financial eval. Per Yamilka, the son will not assist with the financial eval and the pt will need to be able to provide the information. I let her know there have been several jewish visitors. I will ask the pt if they can assist her.
--- NOTE | 2024-10-20 15:00 | NUR ---
Received a call back from the son. He is again requesting staff teach his mother how to place the Purewic for incontinence. I let him know she is not capable of doing this alone. It is the DrElva and staffs feeling she needs to return to a SNF for 42 days for wound care. He again is stating he can provide the care. I then let him know [facility] is discussing discharging mom as they do not feel she has adequate care as she has so many needs and is unable to assist herself. He begins stating he will just take her home. I let him know I spoke with his mom and she has agreed to go to a SNF. I work for her so I will need to follow her wishes. He requests to be transferred to his moms room. I let him know she is not capable of reaching the phone. I can transfer to the nurses station and they can assist him.
--- NOTE | 2024-10-20 15:39 | NUR ---
PT PASSES SMALL BM IN EF. PERICARE PROVIDED. NEW BRIEF DONNED, NEW PUREWICK PLACED. DRESSINGS TO LEFT, RIGHT AND MID-SACRAL WOUNDS CHANGED. OLD DRESSINGS REMOVED. MODERATE AMOUNT OF BROWN DRAINAGE NOTED FROM LEFT SACRAL WOUND. WOUNDS CLEANSED WITH VASE AND PATTED DRY. CAVILON SKIN PREP APPLIED TO PERIWOUND SKIN AND ALLOWED TO DRY. MEDIHONEY APPLIED TO RIGHT SACRAL AND MID-SACRAL WOUND BASES. RIGHT SACRAL WOUND FILLED WITH MEDIHONEY IMPREGNATED GAUZE. WOUNDS COVERED WITH SILICONE ADHESIVE BORDERED FOAM DRESSINGS X3. PT TOLERATED WELL. PT ASSIST TO SUPINE POSITION FOR COMFORT. PT CONTINUES ON C200 PRESSURE ALTERNATING SURFACE. CALL LIGHT AND BELONGINGS IN REACH. NO REQUESTS AT THIS TIME.
--- NOTE | 2024-10-20 15:45 | NUR ---
PATIENT IN BED AT THIS TIME. IT NETWORK ENGINEER AND RN CHANGED PATIENT AND RN DID DRESSIGN CHANGE. CALL LIGHT WITHIN REACH, NO FURTHER NEEDS AT THIS TIME.
--- NOTE | 2024-10-20 17:30 | NUR ---
I was able to contact Renetta Garcia a member of this pts judaism at pts request. She will contact the friend who went to pts home and found her in a state where she stated she had not been provided food in 3 days, pt had been incontinent and was in a wet bed that had not been changed for several days. He has agreed to see pt at the hospital tomorrow around 9:30 and assist her with her medicaid eval.
--- NOTE | 2024-10-20 17:32 | NUR ---
DINNER ARRIVES TO PT ROOM. PT SITS UP IN BED, FEED SELF DINNER.
--- NOTE | 2024-10-20 19:20 | NUR ---
PATIENT IN BED. RN CHARTED VITALS, CALL LIGHT WITHIN REACH, NO FURTHER NEEDS AT THIS TIME.
--- NOTE | 2024-10-20 19:30 | NUR ---
RECEIVED REPORT FROM JORDI CAVAZOS. PT RESTING COMFORTABLY. NO CURRENT NEEDS.
--- NOTE | 2024-10-20 21:45 | NUR ---
PT RESTING IN BED. A&OX4. PILOT STATION. REPORTS "26/07" PAIN TO LOWER BACK. MEDICATED W/ PRN OXYCODONE. LSC DIM. HRR. BTA, INC BM X 1-ROSALINE CARE PROVIDED. PUREWICK IN PLACE, SOILED W/ BM. NEW PUREWICK PLACED-UO PRISCA. [address] BUTTOCKS IN [address]ACE, CDI. SKIN CHECK DONE W/ JORDI HERNANDEZ. LAC SL WNL. PT ON SPECIALTY ALTERNATING PRESSURE BED. BLE ELEVATED, HEELS FLOATED. PT W/ ANXIETY DURING POSITION CHANGES, NEEDS LOTS OF ENCOURAGEMENT AND REASSURANCE. CALL LIGHT WITHIN REACH.
--- NOTE | 2024-10-20 22:15 | NUR ---
PT APPEARS TO BE ASLEEP. CALL LIGHT WITHIN REACH.
[2024-10-21] VITALS (8 sets, daily range): BP systolic 107–128; BP diastolic 60–64
--- NOTE | 2024-10-21 00:23 | NUR ---
PT ASLEEP, APPEARS COMFORTABLE.
--- NOTE | 2024-10-21 02:31 | NUR ---
DX: FAILURE TO THRIVE, DECUB WOUNDS. ANXIOUS W/ ACTIVITY. C/O BACK PAIN-PRN OXYCODONE. INC B&B, PUREWICK IN PLACE. LBM 10/20. [address] TO BUTTOCKS, CHANGE M-W-. PT ON SPECIALTY ALTERNATING PRESSURE BED. PLAN D/C TO SNF. APS INVOLVED W/ SON & CARE AT HOME.
--- NOTE | 2024-10-21 03:40 | NUR ---
PT ASLEEP ON RIGHT SIDE, APPEARS COMFORTABLE.
--- NOTE | 2024-10-21 05:40 | NUR ---
PT REPOSITIONED TO LEFT SIDE W/ MAX ASSIST. PT C/O 26/07 NECK AND LOWER BACK PAIN, MEDICATED W/ PRN OXYCODONE PER EMAR. PT INC BM, ROSALINE CARE DONE AND NEW PUREWICK PLACED. CALL LIGHT WITHIN REACH. LAB IN TO DRAW BLOOD.
[2024-10-21 05:45] LABS: BASOPHILS 0.5 % (0-2); EOSINOPHILS 1.6 % (0-6); HEMATOCRIT 26.5 % (35.0-50.0); HEMOGLOBIN 9.1 g/dL (12.0-18.0); LYMPHOCYTES 23.5 % (24-44); MCH 31.3 (27-36); MCHC 34.2 g/dl (30-36); MCV 91.5 fl (81-99); MONOCYTES 6.2 % (0-12); NEUTROPHILS 68.2 % (39-80); PLATELET COUNT 342 K/uL (140-440); RDW 18.2 (10.5-15.0)
[2024-10-21 06:00] LABS: BUN/CREATININE RATIO 44.68 (6.0-28.6); CALCIUM 9.1 mg/dL (8.5-10.1); CREATININE, SERUM 0.47 mg/dL (0.55-1.02); MAGNESIUM 1.7 mg/dL (1.8-2.4); PHOSPHORUS, INORGANIC 2.2 mg/dL (2.5-4.9)
[2024-10-21] MEDS ORDERED: SODIUM PHOSPHATE 30 MMOL in DEXTROSE 5% 250 ML IV ONE (08:00)
[2024-10-21] MEDS ORDERED: MAGNESIUM SULFATE 2 GM/50 ML BAG IV ONE (08:00)
--- NOTE | 2024-10-21 08:12 | NUR ---
PT RESTING WITH EYES CLOSED WHEN ROUNDING, AFTER REPORT RECEIVED FROM NOC RN. CALL LIGHT IS WITHIN REACH, RESPIRATIONS UNLABORED. ALL PT CARE NEEDS MET AT THIS TIME.
--- NOTE | 2024-10-21 08:59 | NUR ---
PATIENT IN BED AT THIS TIME. CVT RN WENT INTO PATIENTS ROOM FOR HOURLY ROUNDS. CALL LIGHT WITHIN REACH, NO FURTHER NEEDS AT THIS TIME.
[2024-10-21] MEDS ORDERED: SOTALOL HCL 80 MG TAB PO SCH (09:00)
--- NOTE | 2024-10-21 10:00 | NUR ---
Today I was with Rebecca and Oniel Kaye, who Rebecca knows from her islam. Oniel is willing to help Rebecca with her arrangements to get assistance for long-term care after her stay in a SNF wich is needed at this time. Rebecca continues to tell us that she does want to go to a care facility, and she continues to tell us that her choice is [facility]. [facility] was also called, Rebecca spoke to Yamilka at [facility] regarding her acceptance for Oniel to assist her with the process of being placed in buttermaker helper care. Oniel also spoke extensively to Yamilka at [facility] during this time. Yamilka will send paperwork for Rebecca and Oniel to sign to begin the process.
--- NOTE | 2024-10-21 10:00 | NUR ---
Spoke with Rebecca and she plans on going to a SNF. Rachel is reviewing this pt or placement when she is cleared for dc. Pt friend, Oniel, here to assist pt with eval from Medicaid. I called Yamilka Wirght from the room and Rebecca gave verbal permission for Oniel to answer questions for evaluation with the help of Kelly.
--- NOTE | 2024-10-21 10:14 | NUR ---
IV SODIUM PHOSPHATE IS INFUSING FOR 6 HOURS.
--- NOTE | 2024-10-21 10:20 | NUR ---
VISITED DURING SPIRITUAL CARE ROUNDS. PT APPEARED TO BE SLEEPING. DID NOT DISTURB. PROVIDED PRAYER.
--- NOTE | 2024-10-21 10:30 | NUR ---
Spoke with Oniel and he states Yamilka mcgee is emailing forms to me to have him sign. I received the email and printed the form. Gave it to Oniel with a clipboard and he will have Rebecca sign. He will then return the form to [facility] today.
--- NOTE | 2024-10-21 10:45 | NUR ---
Oniel and I are back in Rebecca's room with the paperwork from [facility]. Rebecca is willing to sign the paperwork so that Bill can assist her. I did witness this signature, I also witnessed Oniel's signature on the form. During this conversation when asked Rebecca was able to tell me her full name, her date of , where she is now ([facility]) and she was also able to state the year being 2024. Additionally Rebecca shared with us that she tries to save $500.00 per monther out of her social security so that she has money at the end of the year to pay her taxes. She also said that she uses the rest of her social security money to pay the electric bill, buy pellets for the stove and "take care of those kinds of things." She also shared that she received money from a sale of property that her husbands mother left. The property was in [place], and she stated that she was to get 1/3 of the money. However, after the immigration attorney fees "and all that" she only got 1/6th of the money. She stated that she used that money to put a new roof on the trailer that she and Cruz live in. She also shared that Cruz is 100% disabled from the [employer]. Prior to us leaving the room Rebecca again thanked us for helping her and stated that she really wanted to go somewhere where people could help take care of her. She expressed no further needs at this time.
--- NOTE | 2024-10-21 11:49 | NUR ---
PT REQUESTING PAIN MEDS FOR BACK/NECK PAIN, PRN MEDS GIVEN - SEE MAR. PT DOES HYPEREXTEND HER NECK, CONTINUED TO REINFORCE TO TRY AND TUCK HER CHIN SO SHE COULD GET PILLS DOWN EASIER. IV MEDICATIONS INFUSING AT THIS TIME. CASE MGMT ARRIVED WITH PAPERWORK AT THIS TIME. PT DENIES ANY FURTHER NEEDS AT THIS TIME, CALL LIGHT WITHIN REACH.
--- NOTE | 2024-10-21 11:58 | NUR ---
2nd IMM letter taken to Rebecca, letter explained, Rebecca denies questions regarding the letter and she agrees that going to a facility where people can help her would be the best for her at this time. She is oriented to person, place, and time, along with the year being 2024. She signs the letter without questions for this RN. A signed copy of the letter is given to Rebecca prior to leaving the room.
--- NOTE | 2024-10-21 12:30 | NUR ---
Received a call from Yamilka. They will need 3 months of bank statements from this pt. Updated I will attempt to help Bill at 1330 when he returns.
--- NOTE | 2024-10-21 12:44 | NUR ---
PT LUNCH TRAY ARRIVED, REPOSITIONED PT WITH PILLOWS ON THE RIGHT SIDE. PT VERY RELUCTANT TO ALLOW US TO READJUST HER DUE TO PAIN BUT WE WERE ABLE TO STRAIGHTEN AND ELEVATED HOB SO SHE COULD SAFELY EAT. FOOD TRAY SETUP AND POSITIONED FOR PT, DENIES ANY FURTHER NEEDS. CALL LIGHT WITHIN REACH, LIGHT TURNED ON FOR PATIENT EASE TO SEE FOODS.
--- NOTE | 2024-10-21 13:30 | NUR ---
Pts son,Cruz arrives. Pt is very happy to see him. Updated Cruz, I am working on placement to [facility]. He is happy with this. Also discussed pt is working with [facility] Disability, Yamilka Blunt for extermination supervisor medicaid for placement. They will need 3 months of bank statements. He states he can call the itzat. I let him know she has a phone eval on 10/26/24 with [facility]. He called the itzat and they agreed with pts permission to email the statements. Son does not know his email and will not allow the itzat to email to me. He insists they be mailed to his home. This will take 7-10 days. I let him know, there may be a time where she will run of SNF days. Pt may have to pay out of pocket if [facility] medicaid is not in place. Son is concerned there may be a lean on his mom's property. I let him know, Yamilka Wright had stated this is not likely as he is on disability and lives in the home. Updated Bill, son is assisting to get the bank statements. Son again wanting to have pt return home. We discussed pt requires a 2 person assist here. It is unlikely he will be able to care for her on his own. We reviewd extermination supervisor medicaid again and this may help with cg in the home, placement to [facility], or a SNF depending on her needs. Pt cont. to want to go to placement as she feels son is not able to provide the care she needs.
--- NOTE | 2024-10-21 14:47 | NUR ---
PATIENT UP TO CHAIR WITH PHYSICAL THERAPY. LINENS CHANGED. VITALS AND I&O'S DONE AND CHARTED. CALL LIGHT IN REACH. NO FURTHER NEEDS AT THIS TIME.
--- NOTE | 2024-10-21 15:00 | NUR ---
Called Yamilka at [facility] and updated. Notified by Dr. Jacobs pt will most likely be able to dc tomorrow. I texted Sonam asking when pt should arrive. Spoke with nursing and PT, pt is not safe to ride in the [facility] van due to possibility of her sliding out of the chair. I will schedule EMS transport tomorrow.
[2024-10-21] MEDS ORDERED: MAGNESIUM SULFATE 50 ML IV ONE (15:02)
--- NOTE | 2024-10-21 15:14 | NUR ---
PT SITTING UP IN CHAIR, JUST WORKED WITH PT. UPON RETURNING BACK TO BED PER PT REQUIRE TO USE THE SLING FOR PATIENT SAFETY. PT AGREES TO SITUP IN THE CHAIR FOR A LITTLE LONGER, CALL LIGHT WITHIN REACH, C/O 1510 BACK PAIN WHICH IS CHRONIC FOR HER. IV MAGNESIUM HUNG, INFUSING AT THIS TIME. NO OTHER NEEDS AT THIS TIME.
--- NOTE | 2024-10-21 16:32 | NUR ---
Received a text from Fatou at [facility], they would like pt to arrive midday, but will accept her anytime before 3 pm.
--- NOTE | 2024-10-21 17:59 | NUR ---
PT RESTING IN BED, WAS UP IN CHAIR FOR 2-3 HOURS TODAY, DID NOT HAVE MUCH OF APPETITE, SHE HAS NOT VOIDED SINCE ABOUT 2PM, ENCOURAGE TO PUSH FLUIDS AT THIS TIME. IV SALINE LOCKED. PAIN 07/23, PRN OXYCODONE GIVEN - SEE MAR. ALL PT CARE NEEDS MET, CALL LIGHT WITHIN REACH.
--- NOTE | 2024-10-21 18:46 | NUR ---
PATIENT IN BED AT THIS TIME. ROOFER GYPSUM AND SRT CHANGED PATIENTS BRIEF AND PUREWICK. CALL LIGHT WITHIN REACH, NO FURTHER NEEDS AT THIS TIME.
--- NOTE | 2024-10-21 19:52 | NUR ---
Received report from JORDI Hartman. Pt asleep, appears comfortable. Call light within reach.
--- NOTE | 2024-10-21 21:30 | NUR ---
PT ASLEEP IN BED, AWAKENED EASILY. REPORTS BACK AND NECK PAIN (CHRONIC), MEDICATED W/ PRN TYLENOL PER EMAR. VSS. ORIENTED X 4. LSC DIM. HRR. BTA. INC BM, ROSALINE CARE PROVIDED AND BRIEF CHANGED. PUREWICK IN PLACE, CHANGED DUE TO SOILING. LAC SL WNL. 3 DRSGS TO COCCYX CDI, ROSALINE AREA REDDENED-BARRIER CREAM IN PLACE. PT REPOSITIONED TO LEFT SIDE-IS ON SPECIALTY PRESSURE ALTERNATING BED. PT DOES HAVE ANXIETY W/ BED MOBILITY AND NEEDS ENCOURAGEMENT. CALL LIGHT WITHIN REACH.
--- NOTE | 2024-10-21 22:45 | NUR ---
SLEEPING SOUNDLY-APPEARS COMFORTABLE. CALL LIGHT WITHIN REACH.
--- NOTE | 2024-10-22 00:56 | NUR ---
SLEEPING SOUNDLY, APPEARS COMFORTABLE. CALL LIGHT WITHIN REACH.
--- NOTE | 2024-10-22 02:09 | NUR ---
PT C/O HUNGER-SNACKS PROVIDED. NO OTHER NEEDS IDENTIFIED. CALL LIGHT WITHIN REACH.
--- NOTE | 2024-10-22 02:15 | NUR ---
PT C/O BACK PAIN, PRN OXYCODONE ADMINISTERED.
--- NOTE | 2024-10-22 03:44 | NUR ---
PT USED CALL LIGHT TO ASK FOR A WARM BLANKET. FIRE REGULATOR GAVE HER ONE AND PT STATED THAT IT FELF BETTER.
[2024-10-22 05:52] VITALS: BP 115/57
[2024-10-22 05:52] LABS: BASOPHILS 0.6 % (0-2); EOSINOPHILS 3.4 % (0-6); HEMATOCRIT 29.1 % (35.0-50.0); HEMOGLOBIN 9.6 g/dL (12.0-18.0); LYMPHOCYTES 22.2 % (24-44); MCH 30.4 (27-36); MCHC 33.1 g/dl (30-36); MCV 91.7 fl (81-99); MONOCYTES 7.8 % (0-12); PLATELET COUNT 360 K/uL (140-440); RBC 3.17 M/ul (4.3-5.7); RDW 18.5 (10.5-15.0)
[2024-10-22 06:06] VITALS: BP 115/57
--- NOTE | 2024-10-22 06:07 | NUR ---
FORENSIC STRUCTURAL ENGINEER CHECKED AND RECORDED VITAL SIGNS, CHECKED BRIEF, AND REPOSITIONED PT WITH PILLOWS TO HER RIGHT SIDE.
[2024-10-22 06:08] LABS: ANION GAP 8.1 (7-21); BUN/CREATININE RATIO 28.3 (6.0-28.6); CALCIUM 8.7 mg/dL (8.5-10.1); CREATININE, SERUM 0.53 mg/dL (0.55-1.02); MAGNESIUM 1.9 mg/dL (1.8-2.4); PHOSPHORUS, INORGANIC 2.6 mg/dL (2.5-4.9); POTASSIUM 4.1 mmol/L (3.5-5.1)
--- NOTE | 2024-10-22 06:47 | NUR ---
PT SLEEPING SOUNDLY. APPEARS COMFORTABLE. DRSGS TO COCCYX CDI. SPECIALTY ALTERNATING PRESSURE BED CONTINUES.
--- NOTE | 2024-10-22 07:05 | NUR ---
REPORT RECEIVED FROM MANAGER MACHINE RN ANURAG. PATIENT IS LYING IN BED WITH EYES CLOSED AND RESPIRATIONS ARE EVEN AND UNLABORED. CALL LIGHT AND PERSONAL BELONGINGS ARE WITHIN REACH.
--- NOTE | 2024-10-22 08:00 | NUR ---
Received a text from Sonam asking when pt will arrive. Updated I have not see the hospitalist yet. He will be here soon. I will schedule EMS transport as soon as I know how quick he can complete the orders and dc summary.
--- NOTE | 2024-10-22 08:30 | NUR ---
PATIENT IS LYING IN BED WITH EYES CLOSED AND RESPIRATIONS ARE EVEN AND UNLABORED.
[2024-10-22] MEDS ORDERED: SOTALOL80 M1 PO (09:09)
[2024-10-22] MEDS ORDERED: MIRTAZAPINE15 MG PO (09:12)
[2024-10-22] MEDS ORDERED: OXYCODONE HCL5 MG PO (09:14)
--- NOTE | 2024-10-22 09:15 | NUR ---
PATIENT BRIEF CHANGED AT THIS TIME WITH CASUALTY UNDERWRITER AND WITH JORDI ARVIZU. DRESSING CHANGE COMPLETE AND PICTURES TAKEN. NEW PUREWICK IN PLACE. CNAS REMAIN AT BEDSIDE. CALL LIGHT AND PERSONAL BELONGINGS ARE WITHIN REACH.
[2024-10-22] MEDS ORDERED: CEFDINIR300 MG PO (09:17)
[2024-10-22 09:24] VITALS: BP 126/64
--- NOTE | 2024-10-22 09:47 | NUR ---
PT TRAY SETUP FOR HER, MEDS TAKEN THIS MORNING WITHOUT ISSUES. IV ABX INFUSING AT THIS TIME. PT REQUESTED PAIN PILL FOR 15 NECK/BACK PAIN - SEE DEC. CALL LIGHT WITHIN REACH, ALL PT CARE NEEDS MET, PUREWICK IN PLACE WITH YELLOW URINE OUTPUT. ALL PT CARE NEEDS MET AT THIS TIME.
--- NOTE | 2024-10-22 10:30 | NUR ---
EMS IS AT THE DOOR READY TO TRANSPORT PATIENT. PATIENT FULL ASSESSMENT COMPLETE AT THIS TIME. PATIENT IS ALERT AND ORIENTED TIMES FOUR. PATIENT IS ANXIOUS UPON TRANSFERRING, TURNING, AND MOVING PATIENT. SENSATION INTACT. PATIENT WITH COMPLAINTS OF TINGLING IN THE RLE. PATIENT CALLS APPROPRIATELY. PATIENT IS INCONTINENT AND USES A PUREWICK WITH A BRIEF. PATIENT IS ON ROOM AIR AND LUNG SOUNDS ARE CLEAR IN ALL LUNG COELLO BILATERALLY. CARDIAC WITH NORMAL S1 AND S2 ON AUSCULTATION. RADIAL AND PEDAL PULSES ARE STRONG BILATERALLY. CAPILLARY REFILL IS LESS THAN 3 SECONDS IN THE UPPER AND LOWER EXTREMITIES BILATERALLY. BOWEL TONES ARE ACTIVE IN ALL FOUR QUADRANTS. PATIENT IS ON A REGULAR DIET WITH SOFT AND BITE SIZED TEXTURE. LAST BM WAS 10/21/24. IV SITE REMOVED BY ROSA WIGGINS. PATIENT WITH PAIN RATED 8/10. PRN PAIN MEDICATION ADMINISTERED BY JORDI ARVIZU. WOUND CARE COMPLETE EARLIER THIS A.M. SEE WOUND CARE ASSESSMENT. NEW PICTURES ARE IN THE CHART. SEROSANGUINOUS DRAINAGE NOTED. MEDIHONEY AND DAKENS SOLUTION APPLIED TO EACH WOUND SITE. FOAM ADHESIVE BORDER DRESSINGS APPLIED. PATIENT STATED NO FURTHER NEEDS. PATIENT TRANSFERRED TO [facility] WITH EMS TRANSPORT.
[2024-10-22 10:52] VITALS: BP 126/64
--- NOTE | 2024-10-22 11:30 | NUR ---
REPORT GIVEN TO LAMIN AT [facility] IN [place].
--- NOTE | 2024-10-22 17:35 | NUR ---
Received a return call from Charlotte at [facility]. She confirms pts financial eval will be Saturday at 1pm. We have 3 different phone numbers. I called her son and he provided a number and I called [phone] and Rebecca answered. Charlotte will give this number to [facility] to call on Saturday.
== END 2024-10-22 10:45 | DRG 593 ==
LOC: ED 17:39 → MS 20:29
PROVIDERS: Emergency Medicine; ADMIT Student in an Organized Health Care Education/Training Program; ATTEND Family Medicine
DX: L89.154 Pressure ulcer of sacral region, stage 4 (principal); E87.1 Hypo-osmolality and hyponatremia; N39.0 Urinary tract infection, site not specified; R64 Cachexia; R62.7 Adult failure to thrive; E87.8 Other disorders of electrolyte and fluid balance, not elsewhere classified; E87.6 Hypokalemia; E83.42 Hypomagnesemia; I48.91 Unspecified atrial fibrillation; F39 Unspecified mood [affective] disorder; M10.9 Gout, unspecified; E83.39 Other disorders of phosphorus metabolism; I50.9 Heart failure, unspecified; E86.0 Dehydration; I25.10 Atherosclerotic heart disease of native coronary artery without angina pectoris; I11.0 Hypertensive heart disease with heart failure; G89.29 Other chronic pain; M54.9 Dorsalgia, unspecified; E83.52 Hypercalcemia; Z79.01 Long term (current) use of anticoagulants; Z88.0 Allergy status to penicillin; Z88.2 Allergy status to sulfonamides; Z88.5 Allergy status to narcotic agent; I25.2 Old myocardial infarction; Z86.73 Personal history of transient ischemic attack (TIA), and cerebral infarction without residual deficits
CPT/HCPCS: 36415; 80048; 80053; 80162; 81001; 82553; 83735; 84100; 84484; 85025; 87088; 96360; 97112; 97162; 97166; 97530; 99284-25; A9270; J0696; J3475; J7030; J7040; J7042; J7060

== ENCOUNTER 2024-12-15 16:10 | Emergency (ER) | payer MEDICARE ==
[~2024-12-15] VITALS: Ht 162.6 cm; Wt 49.9 kg
[~2024-12-15 16:10] MED LIST changes: +CEFDINIR300 MG PO; +MIRTAZAPINE15 MG PO; +OXYCODONE HCL5 MG PO; +SOTALOL80 M1 PO
--- OUTSIDE RECORDS SUMMARY | 2024-12-15 16:16 | XMS ---
PreManage Notification: SHAVONNE ESTEBAN Security Clock And Watch Assembler Events No recent Security Events currently on file CRITERIA MET - Group Notification CARE PROVIDERS SHAGUFTA [facility] Medicine 06/24/2019-Xochilt Miranda PHONE: [phone] MARIE CHANG Internal Medicine Current PHONE: Unknown DONOVAN MARTINEZ Nurse Practitioner: Family Current PHONE: [phone] TRAN MCPHERSON Physician Director Medical Writing Xochilt ADDISON PHONE: [phone] JONATHAN ROBLES Internal Medicine: Cardiovascular Disease Current PHONE: [phone] DANYELLE SOMMER Nurse Practitioner: Adult Health Current [facility] PHONE: [phone] Keith has no Care Guidelines for this patient. Madeleine VISIT COUNT (12 MO.) 4 TOMMY Vigil TOTAL 4 NOTE: Visits indicate total known visits. ED/UCC VISIT TRACKING (12 MO.) 12/15/2024 16:10 [facility] TYPE: Emergency COMPLAINT: - SKIN ISSUE 10/17/2024 17:39 [facility] TYPE: Emergency [...] Hypertensive heart disease with heart failure - jail (current) use of anticoagulants - Old myocardial infarction - Other fdc (current) drug therapy - Pneumonia, unspecified organism - Unspecified atrial fibrillation INPATIENT VISIT TRACKING (12 MO.) 10/17/2024 20:[address] 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 - Atherosclerotic heart disease of upper [place] coronary artery without angina pectoris - Cachexia - Cachexia - Dehydration - Dehydration - Dorsalgia, unspecified - Dorsalgia, unspecified - Gout, unspecified - Gout, unspecified - Heart failure, unspecified - Heart failure, unspecified - Hypercalcemia - Hypercalcemia - Hypertensive heart disease with heart failure - Hypertensive heart disease with heart failure - Hypo-osmolality and hyponatremia - Hypo-osmolality and hyponatremia - Hypokalemia - Hypokalemia - Hypomagnesemia - Hypomagnesemia - jail (current) use of anticoagulants - terminal operations supervisor (current) use of anticoagulants - Old myocardial infarction - Old myocardial infarction - Other chronic pain - Other chronic pain - Other disorders of electrolyte and fluid balance, not elsewhere classified - Other disorders of electrolyte and fluid balance, not elsewhere classified - Other disorders of phosphorus metabolism - Other disorders of phosphorus metabolism - Personal history of transient ischemic attack (TIA), and cerebral infarction without residual deficits - Personal history of transient ischemic attack (TIA), and cerebral infarction without residual deficits - Pressure ulcer of left buttock, stage 4 - Pressure ulcer of right hip, stage 3 - Pressure ulcer of sacral region, stage 3 - Pressure ulcer of sacral region, stage 4 - Pressure ulcer of sacral region, stage 4 - Unspecified atrial fibrillation - Unspecified atrial fibrillation - Unspecified mood [affective] disorder - Unspecified mood [affective] disorder - Urinary tract infection, site not specified - Urinary tract infection, site not specified - Weakness 07/14/2024 17:13 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
[2024-12-15] MEDS ORDERED: NEXIUM20 MG PO (17:30)
[2024-12-15] MEDS ORDERED: HYDROCODON-ACE1 EAC8 PO (17:31)
[2024-12-15] MEDS ORDERED: CYCLOBENZAPRINE10 MG PO (17:32)
[2024-12-15 18:32] VITALS: BP 139/63
== END 2024-12-15 19:30 | disposition home or self-care (01) ==
LOC: ED 16:10
DX: L89.303 Pressure ulcer of unspecified buttock, stage 3 (principal)
CPT/HCPCS: 99283

== ENCOUNTER 2024-12-20 21:56 | Observation (INO) | payer MEDICARE ==
[~2024-12-20] VITALS: Ht 162.6 cm; Wt 53.1 kg
[~2024-12-20 21:56] MED LIST changes: +NEXIUM20 MG PO
--- OUTSIDE RECORDS SUMMARY | 2024-12-20 22:03 | XMS ---
PreManage Notification: SHAVONNE ESTEBAN Security Mails Supervisor Events No recent Security Events currently on file CRITERIA MET - Group Notification - [facility] - 2 Visits in 30 Days CARE PROVIDERS SHAGUFTA [facility] Medicine 06/24/2019-Xochilt Miranda PHONE: [phone] MARIE CHANG Internal Medicine Current PHONE: Unknown DONOVAN MARTINEZ Nurse Practitioner: Family Current PHONE: [phone] TRAN MCPHERSON Physician Assistant Xochilt ADDISON PHONE: [phone] JONATHAN ROBLES Internal Medicine: Cardiovascular Disease Current PHONE: [phone] DANYELLE SOMMER Nurse Practitioner: Adult Health [facility] PHONE: [phone] Keith has no Care Guidelines for this patient. Madeleine VISIT COUNT (12 MO.) Suman Vigil TOTAL 5 NOTE: Visits indicate total known visits. ED/UCC VISIT TRACKING (12 MO.) 12/20/2024 21:56 [facility] TYPE: Emergency COMPLAINT: - POST CHOKE 12/15/2024 16:10 [facility] TYPE: Emergency COMPLAINT: - SKIN ISSUE DIAGNOSES: - Pressure ulcer of unspecified buttock, stage 3 10/17/2024 17:39 [facility] TYPE: Emergency [...] Hypertensive heart disease with heart failure - termite treater (current) use of anticoagulants - Old myocardial infarction - Other emt intermediate (current) drug therapy - Pneumonia, unspecified organism - Unspecified atrial fibrillation INPATIENT VISIT TRACKING (12 MO.) 10/17/2024 20:29 [facility] [place] TYPE: Medical Surgical COMPLAINT: - FAILURE TO THRIVE, DECUBITI ULCERS DIAGNOSES: - Adult failure to thrive - Adult failure to thrive - Allergy status to narcotic agent - Allergy status to narcotic agent - Allergy status to penicillin - Allergy status to penicillin - Allergy status to sulfonamides - Allergy status to sulfonamides - Atherosclerotic heart disease of circle coronary artery without angina pectoris - Atherosclerotic heart disease of circle coronary artery without angina pectoris - Cachexia [...] - Hypokalemia - Hypomagnesemia - Hypomagnesemia - skilled nursing (current) use of anticoagulants - termite treater (current) use of anticoagulants - Old myocardial [...] site not specified - Weakness 07/14/2024 17:[address] 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
[2024-12-20] MEDS ORDERED: FAMOTIDINE 20 MG/ 2 ML VIAL IV SCH (22:50)
[2024-12-20] MEDS ORDERED: LACTATED RINGER'S 1,000 ML IV SCH (23:00)
[2024-12-20] MEDS ORDERED: ondansetron HCL 4 MG/2 ML VIAL IV PRN (23:00)
[2024-12-20 23:39] LABS: ALBUMIN 2.4 g/dL (3.4-5.0); ALBUMIN/GLOBULIN RATIO 0.57 (1.1-2.4); ANION GAP 7.5 (7-21); BILIRUBIN, TOTAL 0.3 mg/dL (0.2-1.0); BUN/CREATININE RATIO 27.94 (6.0-28.6); CALCIUM 9.1 mg/dL (8.5-10.1); CREATININE, SERUM 0.68 mg/dL (0.55-1.02); POTASSIUM 4.5 mmol/L (3.5-5.1); PROTEIN, TOTAL 6.6 g/dL (6.4-8.2)
[2024-12-20] MEDS ORDERED: MORPHINE SULFATE 4 MG/ML VIAL IV ONE (23:45)
[2024-12-21] MEDS ORDERED: ondansetron HCL 4 MG/2 ML VIAL ONE (00:01)
[2024-12-21] MEDS ORDERED: DEXAMETHASONE SOD PHOS 4 MG/ML VIAL ONE (00:01)
[2024-12-21] MEDS ORDERED: LIDOCAINE HCL 2% 5 ML SDV ONE (00:01)
[2024-12-21] MEDS ORDERED: propofoL 200 MG/20 ML VIAL ONE (00:01)
[2024-12-21] MEDS ORDERED: SUCCINYLCHOLINE IN 0.9% NACL 200 MG/10 ML SYRINGE ONE (00:01)
[2024-12-21] MEDS ORDERED: CEFAZOLIN SODIUM 2 GM/20 ML SYR IV ONE (00:15)
--- NOTE | 2024-12-21 00:15 | NUR ---
PT WAS SEEN IN THE ER FOR MULTIPLE SKIN WOUNDS. LEFT BUTTOCKS 2.8CM X 4.7CM X 1.4CM PRESSURE WOUND WITH UNDERMINING FROM 3 O'CLOCK TO 5 O'CLOCK FOR 1.7CM AND TIGHTLY ADHERED YELLOW SLOUGH AT THE EDGE. BASE OF WOUND IS RED, GRANULATING, SCANT SANGUINOUS DISCHARGE. AREA CLEANED WITH SOAP/WATER AND WOUND CLEANSER. 15 INCHES OF STERILE PACKING STRIP WAS PLACED IN THE WOUND. EDGES ARE PINK AND VIABLE. COVERED WITH PINK FOAM GENTLE BORDER. SACRUM IS RED WITH INCONTINENCE RELATED DERMATITIS AND DENUDED IN AREAS. ENTIRE AREA CLEANED WITH SOAP/WATER, WOUND CLEANSER, ZINC SKIN BARRIER PASTE APPLIED AND COVERED WITH FOAM DRESSING. RIGHT UPPER BUTTOCKS HAS AN BRUISE .5CM X 2CM, OPEN TO AIR. LEFT MEDIAL HEEL HAS A 3.3CM X 2.6CM PRESSURE WOUND, UNSTAGEABLE, PURPLE, NONBLANCHABLE. CLEANED, NONADHERENT PINK FOAM LNCED AROUND OUTSIDE OF WOUND AND COVERED WITH ADHESIVE PINK FOAM DRESSING. PUREWICK IN PLACE. PT AND SON PROVIDED WITH WOUND CARE EDUCATION. EDUCATION CONCERNING REPOSITIONING AND OFFLOADING AND FLOATING HEELS IN BED. URINARY INCONTINENCE EDUCATION PROVIDED. SON , THE CAREGIVER, VERBALIZES UNDERSTANDING OF EDUCATION. SON STATES THAT PT RECEIVES CARE AND SUPPLIES FROM [facility] AND HE WILL CALL THEM TOMORROW. SON EDUCATED AGAIN TO NOT REUSE BANDAGES AND FOLLOW HOME HEALTH IN STRUCTIONS FOR WOUND CARE.
[2024-12-21 00:21] LABS: BASOPHILS 0.4 % (0-2); EOSINOPHILS 1.9 % (0-6); HEMATOCRIT 35.2 % (35.0-50.0); LYMPHOCYTES 22.5 % (24-44); MCH 31.8 (27-36); MCHC 34.1 g/dl (30-36); MCV 93.1 fl (81-99); MONOCYTES 7.4 % (0-12); NEUTROPHILS 67.8 % (39-80); PLATELET COUNT 444 K/uL (140-440); RBC 3.78 M/ul (4.3-5.7); RDW 14.6 (10.5-15.0)
--- NOTE | 2024-12-21 00:53 | NUR ---
12/21/24 0053 Cintia Mcconnell PATIENT NEEDS JAW SUPPORT FOR ADEQUATE GAS EXCHANGE UPON ARRIVAL IN PACU. JAW SUPPORT IS DISCONTINUED AT 0048. AT 0052, PATIENT REACHES FOR HER OXYGEN MASK. OXYGEN MASK IS REMOVED.
[2024-12-21 01:19] VITALS: BP 149/67
--- NOTE | 2024-12-21 01:20 | NUR ---
PT TO FLOOW WITH WARD SECRETARY VIA STRETCHER. 3PA TO TRANSFER TO BED USING SLIDE SHEET. PT DROWSY, AWAKENS EASILY. REPORT RECEIVED. VS AND WEIGHT OBTAINED. PT DENIES PAIN OR NAUSEA. DENIES SIPS OF WATER WHEN OFFERED. WARM BLANKETS PROVIDED. SON AT BEDSIDE. SWITCH HOUSE OPERATOR IN FOR ADMISSION.
[2024-12-21 02:08] VITALS: BP 131/65
--- NOTE | 2024-12-21 02:08 | NUR ---
CPOX ALARMING. PT RESTING WITH EYES CLOSED. SpO2 BRIEFLY IN THE 60'S. UPON AWAKENING SpO2 UP TO 96% ON RA. 2L/NC PLACED FOR SLEEP. VS OBTAINED, WNL. PT DENIES NEEDS. BED ALARM FOR SAFETY. CALL LIGHT IN REACH.
[2024-12-21 03:06] VITALS: BP 124/65
--- NOTE | 2024-12-21 03:09 | NUR ---
PT RESTING WITH EYES CLOSED. AWAKENS EASILY. POST OP VS OBTAINED, WNL. PT DECLINES SIPS OF WATER WHEN OFFERED. NO NEEDS AT THIS TIME.
--- NOTE | 2024-12-21 04:17 | NUR ---
PT RESTING WITH EYES CLOSED. AWAKENS EASILY. POST OP VS AND I&O OBTAINED. PT DECLINES SIPS OF WATER WHEN OFFERED. NO NEEDS AT THIS TIME. CALL LIGHT IN REACH. BED ALARM FOR SAFETY.
[2024-12-21 04:19] VITALS: BP 130/64
--- NOTE | 2024-12-21 06:11 | NUR ---
PT RESTING WITH EYES CLOSED. AWAKENS EASILY. SIPS OF WATER PROVIDED. NO SWALLOWING ISSUES NOTED. PT REPOSITIONED IN BED WITH PILLOWS. ATTENDS DRY. PUREWICK PATENT WITH YELLOW URINE. OXYGEN TITRATED TO OFF AT THIS TIME. CPOX IN PLACE. PT DENIES FURTHER NEEDS. CALL LIGHT IN REACH. BED ALARM FOR SAFETY.
--- NOTE | 2024-12-21 06:56 | OR ---
[facility] [address], [place] [address] Signed DATE OF OPERATION: 12/21/2024 SURGEON: Abel Jeffery MD PREOPERATIVE DIAGNOSES: 1. Esophageal foreign body (chicken). 2. History of proximal esophageal stricture at 15 cm. 3. Hiatal hernia. 4. Failed Sebastien fundoplication. POSTOPERATIVE DIAGNOSIS: Esophageal foreign body. PROCEDURE: EGD with foreign body removal. ESTIMATED BLOOD LOSS: None. INDICATIONS: Rebecca is an 84-year-old female who has been in our hospital recently for failure to thrive. 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 She is also quite elevated and frail. She was sent up to an extended care facility. For some reason she has left that extended care facility. She is back at her house with her son. He is doing his best to take care of her. They are working with her primary care provider for placement somewhere else I guess based on insurance coverage. She also is known to have a failed Sebastien fundoplication back in [address] Jaxson Dumont. 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 Dr. Parker helped her in 2021 for proximal esophageal stricture at 15 cm. He dilated it with the 60-Japanese balloon dilator. Her son tells me she has done quite well since that time. She did have a stroke back in December 2023. She has been on Eliquis. About an hour prior to admission, she came in because she was eating chicken, she felt to get stuck in her proximal esophagus. She was unable to drink any water. I have been asked by the ER physician to come see her in the emergency room. I met with Rebecca and her son. We reviewed the above findings. They are very familiar with upper endoscopy in this idea of foreign body removal. There is risk including, but not limited to gas bloating, crampy abdominal pain, bleeding, perforation requiring surgery, and missed diagnosis. They had expressed understanding, wished to proceed. PROCEDURE NOTE: Electronically Signed By: ABEL JEFFERY MD 12/21/24 0656 PATIENT NAME: REBECCA ESTEBAN OPERATIVE REPORT DATE OF : 44 REPORT #: [id number] PHYSICIAN: ABEL JEFFERY MD PCP: TIFFANY SCOTT MD REPORT IS CONFIDENTIAL AND NOT TO BE RELEASED WITHOUT AUTHORIZATION [facility] [address] [place], [place] [address] Signed Rebecca was taken into our endoscopy suite, placed in a supine semi-recumbent position. She was placed under general endotracheal tube anesthesia. We gave her Ancef because of her pacemaker defibrillator. The adult gastroscope was introduced very slowly and sure enough that she entered the upper esophagus at about 10 cm was this bolus of chicken. We took a few bites of it with our forceps and then we felt it passed through and I was able to push it all the way down the esophagus into the stomach. She had quite a bit of chicken in the stomach along with some fluid. I suctioned out most of the fluid. We did have room to retroflex the scope because of the food in her stomach. GE junction was unremarkable. The distal, middle and upper esophagus were unremarkable. I could not appreciate a true stricture with the gastroscope. Again, it was entering into the top of the esophagus. After this the gas was suctioned out and the gastroscope removed. Rebecca tolerated the procedure quite well. RECOMMENDATIONS: Lynsey will be discharged to home with her son. She can follow up my office as needed. Abel Jeffery MD ALB/MODL /[id number] cc: Tiffany Jeffery MD Copies: ABEL JEFFERY MD ~ Electronically Signed By: ABEL JEFFERY MD 12/21/24 0656 PATIENT NAME: REBECCA ESTEBAN OPERATIVE REPORT DATE OF : 42 REPORT #: [id number] PHYSICIAN: ABEL JEFFERY MD PCP: TIFFANY SCOTT MD REPORT IS CONFIDENTIAL AND NOT TO BE RELEASED WITHOUT AUTHORIZATION
--- NOTE | 2024-12-21 06:56 | CONS ---
[facility] [address] [place], [place] [address] Signed DATE OF CONSULTATION: 12/20/2024 REFERRING PHYSICIAN: Dr. Devang Rodriguez. HISTORY OF PRESENT ILLNESS: Rebecca is an 84-year-old rather debilitated lady, who was eating chicken 1 hour prior to admission. She feels it is stuck high in her throat. Her son brought her to the emergency room with respect to the above. We can see she has been in the emergency room quite a bit of the last few weeks and she has actually been on the hospital service. She has spent some time at one of our local extended care facilities. Apparently, there were some insurance issues according to her son. She is trying to find another place to reside. He has been taking care of her left gluteal pressure injury at home. Has an excellent better granulation tissue. We see that she has had esophageal dysphagia in the past. Dr. Parker helped her with upper endoscopy in 2019, and found a stricture at 15 cm. He dilated that with our 60-Qatari balloon dilator. Apparently that worked out fairly well for her. 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 She also had a Sebastien fundoplication in 2002, with Dr. Jaxson Dumont. She is here with her son. PAST MEDICAL HISTORY: Esophageal dysphagia, CA x2, chronic back pain, hypertension, congestive heart failure, atrial fibrillation, stroke in December 2023, pressure injuries on her left gluteus. PAST SURGICAL HISTORY: EGD with dilation in 2021, a 60-Qatari with Dr. Parker, back surgery, appendectomy, hysterectomy, tonsillectomy, Sebastien fundoplication in 2002, with Dr. 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 Castro, also cholecystectomy, and defibrillator pacemaker placement. SOCIAL HISTORY: Does not smoke or drink. She lives with her son, Cruz Mariano, at [phone]. She prefers a [facility]. Her primary care provider is Dr. Tiffany Scott. FAMILY HISTORY: None. REVIEW OF SYSTEMS: I did my best to review 10 systems with Cruz and his mom. No new findings. ALLERGIES: Penicillin, sulfa, and oxycodone. Electronically Signed By: ABEL JEFFERY MD 12/21/24 0656 PATIENT NAME: REBECCA ESTEBAN CONSULTATION DATE OF : 42 REPORT #: [id number] PHYSICIAN: ABEL JEFFERY MD PCP: TIFFANY SCOTT MD REPORT IS CONFIDENTIAL AND NOT TO BE RELEASED WITHOUT AUTHORIZATION [facility] [address] [place], [place] [address] Signed MEDICATIONS: Clonidine, torsemide, Flexeril, losartan, magnesium oxide, potassium chloride, Nexium, [place], sotalol, mirtazapine, atorvastatin, allopurinol, digoxin, multivitamin, Eliquis. PHYSICAL EXAMINATION: VITAL SIGNS: Her blood pressure is 151/84, heart rate is 72, respiratory rate 15, temperature is 98.6, she is 98% on room air, she is 5 feet 4 inches tall, at 55 kg with a body mass index of 20. GENERAL: Rebecca is an 84-year-old cachectic elderly female, lying supine, semi-recumbent in her ER bed. She is able to control her saliva during the visit, but she tried to swallow some water through a straw. She said it did not go well. However, she did not spit it up while I was in the room. She is in no acute distress. LUNGS: Clear to auscultation bilaterally. HEART: Irregularly irregular. ABDOMEN: Soft, nontender. LABS: Pending. EKG pending. X-rays, none. ASSESSMENT AND PLAN: Rebecca is an 84-year-old female, who feels quite confident that there is chicken stuck in her upper esophagus. Consequently, we have called our crew and will be taking her down to the endoscopy suite here shortly for upper endoscopy and foreign body removal. She will be allowed to go home with her son hilario. She and her son are working closely with her primary care provider for placement now, that she is no longer at [facility]. They understand the nature of the procedure, having gone through it multiple times. There is risk including, but not limited to, gas bloating, crampy abdominal pain, bleeding, perforation requiring surgery, and missed diagnosis. They have expressed understand, would like to proceed as above. Abel Jeffery MD ALB/JENNIFERL /[id number] cc: Tiffany ROTHMAN Electronically Signed By: ABEL JEFFERY MD 12/21/24 0656 PATIENT NAME: REBECCA ESTEBAN CONSULTATION DATE OF : 44 REPORT #: [id number] PHYSICIAN: ABEL JEFFERY MD PCP: TIFFANY SCOTT MD REPORT IS CONFIDENTIAL AND NOT TO BE RELEASED WITHOUT AUTHORIZATION [facility] [address] [place], [place] [address] Signed Copies: ~ Electronically Signed By: ABEL JEFFERY MD 12/21/24 0656 PATIENT NAME: REBECCA ESTEBAN CONSULTATION DATE OF : 44 REPORT #: [id number] PHYSICIAN: ABEL JEFFERY MD PCP: TIFFANY SCOTT MD REPORT IS CONFIDENTIAL AND NOT TO BE RELEASED WITHOUT AUTHORIZATION
--- NOTE | 2024-12-21 07:55 | NUR ---
PT RESTING EYES CLOSED AT TIME OF SHIFT REPORT, LEFT UNDISTURBED. BREATHING EVEN AND UNLABORED SATS 96% ON RA. CALL LIGHT AND NEEDED ITEMS IN REACH BED ALARM IS SET
--- NOTE | 2024-12-21 08:24 | NUR ---
12/21/24 0824 Ame Herndon SEE OTHER ENTRY FOR CHARTING
--- NOTE | 2024-12-21 08:27 | NUR ---
Board has been updated and call light has been placed within reach
[2024-12-21 08:53] VITALS: BP 125/59
--- NOTE | 2024-12-21 09:20 | NUR ---
CALLED NON EMERGENT TRANSPORT. DISPATCHING NOW FOR A CREW. SENT HOME WOUND CARE SUPPLIES FOR SON. CALLED PCP DR. SCOTT OFFICE TO GET PATIENT RE ESTABLISHED FOR HOME HEALTH SERVICES.
--- NOTE | 2024-12-21 09:25 | NUR ---
PT HAS OATMEAL AND APPLESAUCE FOR MORNING MEAL WELL TOLERATED WITH NO SWALLOWING ISSUES OR C/O PAIN. PT AGREES SHE IS READY TO GO HOME NOW. REVIEWED DC INSTRUCTIONS PT DENIES QUESTIONS
--- NOTE | 2024-12-21 09:29 | NUR ---
IV TAKEN OUT BY THIS APPAREL RENTAL CLERK UPON RN REQUEST. CATH INTACT AND LOOKED GOOD, RN NOTIFED. PATIENT HAD NO BELONGINGS IN ROOM TO PACK UP FOR DISCHARGE. CALL LIGHT IN REACH. NO FURTHER NEEDS AT THIS TIME.
--- NOTE | 2024-12-21 10:46 | NUR ---
UR CLINICAL REVIEW: 2MN FOR VERSALUS-PER PAPER MILL SUPERINTENDENT MEETS OBS FOR ESOPHAGEAL OBSTRUCTION MEDICARE OBS 12/20/24 @ 2346 ORDER MATCHES REG NO AUTH REQUIRED PER MEDICARE GUIDELINES EGD COMPLETED. PATIENT HELD OVERNIGHT FOR MONITORING. DC 12/21/24
[2024-12-21] MEDS ORDERED: SEVOFLURANE 250 ML BTL INH ONE (14:03)
--- NOTE | 2024-12-21 14:26 | NUR ---
TALKED WITH PAL RECEIVING DISTRIBUTION STATION OPERATOR TO DR. SCOTT. SHE STATES THAT HOME HEALTH WILL NOT BE ABLE TO SEE PATIENT DUE TO THE CONDITIONS OF THE HOME.
--- NOTE | 2024-12-21 14:50 | NUR ---
SPOKE WITH DR. SCOTT. DR. SCOTT EXPRESSED CONCERNS ABOUT PATIENT LIVING SITUATION. PATIENT WAS DISCHARGED HOME THIS MORNING.
--- NOTE | 2024-12-21 21:13 | EKG ---
[facility] [address] [facility] [place] [address] Signed Accelerated Junctional rhythm Nonspecific T wave abnormality Abnormal ECG When compared with ECG of 14-JUL-2024 15:38, Junctional rhythm has replaced Electronic atrial pacemaker Non-specific change in ST segment in Anterior leads Confirmed by Neli Jackson MD () on 12/21/2024 9:13:13 PM Electronically Signed By: NELI JACKSON MD 12/21/242112 PATIENT NAME: SHAVONNE ESTEBAN JAMES Electrocardiogram DATE OF : 44 PHYSICIAN: NELI JACKSON MD REPORT #: [id number] REPORT IS CONFIDENTIAL AND NOT TO BE RELEASED WITHOUT AUTHORIZATION
== END 2024-12-21 09:45 | disposition home or self-care (01) ==
LOC: ED 21:56 → MS 21:57
PROVIDERS: Internal Medicine; ADMIT Colon & Rectal Surgery; ATTEND Colon & Rectal Surgery
PROC: 0DC18ZZ Extirpation of Matter from Upper Esophagus, Via Natural or Artificial Opening Endoscopic (ICD-10-PCS; principal; 2024-12-21 00:12)
DX: T18.128A Food in esophagus causing other injury, initial encounter (principal); I11.0 Hypertensive heart disease with heart failure; I50.9 Heart failure, unspecified; I25.2 Old myocardial infarction; I48.91 Unspecified atrial fibrillation; Z88.0 Allergy status to penicillin; Z88.2 Allergy status to sulfonamides; Z88.5 Allergy status to narcotic agent; Z79.01 Long term (current) use of anticoagulants; Z79.899 Other long term (current) drug therapy; Z95.0 Presence of cardiac pacemaker; Z90.49 Acquired absence of other specified parts of digestive tract; Z90.710 Acquired absence of both cervix and uterus; Z86.73 Personal history of transient ischemic attack (TIA), and cerebral infarction without residual deficits
CPT/HCPCS: 00813; 36415; 80053; 85025; 85060; 93005; 93010; 94762; 96360; 96361; 96374; 96375; 99284-25; J0330; J0690; J1100; J2003; J2270; J2405; J2704; J7121

== ENCOUNTER 2025-01-21 12:52 | Inpatient (IN) | payer MEDICARE, OTHER ==
[~2025-01-21] VITALS: Ht 162.6 cm; Wt 59.5 kg
[~2025-01-21 12:52] MED LIST changes: +NEXIUM 24HR20 M2 PO; -NEXIUM20 MG PO
--- OUTSIDE RECORDS SUMMARY | 2025-01-21 12:59 | XMS ---
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 No recent Security Events currently on file CRITERIA MET - Group Notification CARE PROVIDERS [facility] Family Medicine 06/24/2019-Xochilt Miranda PHONE: [phone] -[facility]ist: Chapter Relations Administrator Current Alex PHONE: [phone] MARIE CHANG Internal Medicine Current PHONE: Unknown DONOVAN MARTINEZ Nurse Practitioner: Family Current PHONE: [phone] TRAN MCPHERSON Physician Bundle Sorter Xochilt CYN PHONE: [phone] JONATHAN ROBLES Internal Medicine: Cardiovascular Disease Current PHONE: [phone] DANYELLE SOMMER Nurse Practitioner: Adult Health Xochilt GEORGE PHONE: [phone] Alex NATHAN Salon Manager/Photographic Intelligence Officer Current PHONE: [phone] Keith has no Care Guidelines for this patient. E.D. VISIT COUNT (12 MO.) 6 TOMMY Phelan. TOTAL 6 NOTE: Visits indicate total known visits. ED/UCC VISIT TRACKING (12 MO.) 01/21/2025 12:53 [facility] TYPE: Emergency COMPLAINT: - BACK PAIN 12/20/2024 21:56 [facility] TYPE: Emergency [...] Hypertensive heart disease with heart failure - senior care (current) use of anticoagulants - Old myocardial infarction - Other assisted (current) drug therapy - Pneumonia, unspecified organism - Unspecified atrial fibrillation INPATIENT VISIT TRACKING (12 MO.) 12/20/2024 21:57 [facility] TYPE: Observation COMPLAINT: - ESOPHAGEAL FOOD BOLUS OBSTRUCTION DIAGNOSES: - Acquired absence of both cervix and uterus - Acquired absence of other specified parts of digestive tract - Allergy status to narcotic agent - Allergy status to penicillin - Allergy status to sulfonamides - Food in esophagus causing other injury, initial encounter - Heart failure, unspecified - Hypertensive heart disease with heart failure - marquetry worker (current) use of anticoagulants - Old myocardial infarction - Other assisted (current) drug therapy - Personal history of transient ischemic attack (TIA), and cerebral infarction without residual deficits - Presence of cardiac pacemaker - Unspecified atrial fibrillation 10/17/2024 20:29 [facility] TYPE: Medical Surgical COMPLAINT: - FAILURE TO THRIVE, DECUBITI ULCERS DIAGNOSES: - Adult failure to thrive - Adult failure to thrive - Allergy status to narcotic agent - Allergy status to narcotic agent - Allergy status to penicillin - Allergy status to penicillin - Allergy status to sulfonamides - Allergy status to sulfonamides - Atherosclerotic heart disease of [place] coronary artery without angina pectoris - Atherosclerotic heart disease of [place] coronary artery without angina pectoris - Cachexia [...] - Hypokalemia - Hypomagnesemia - Hypomagnesemia - senior care (current) use of anticoagulants - marquetry worker (current) use of anticoagulants - Old myocardial [...] Anemia, unspecified - Atherosclerotic heart disease of [place] coronary artery without angina pectoris - Atherosclerotic heart disease of [place] coronary artery without angina pectoris - Cachexia [...] and hyponatremia - Hypo-osmolality and hyponatremia - senior care (current) use of anticoagulants - marquetry worker (current) use of anticoagulants - Low back [...] - Thrombocytosis, unspecified - Weakness 07/04/2024 01:01 [facility] OR TYPE: General Medicine DIAGNOSES: - Dysphagia, unspecified - Esophageal obstruction - PNA R middle lobe bronch obstruction [email or web address]
[2025-01-21 14:56] LABS: BILIRUBIN, URINE POSITIVE (negative); BLOOD/HGB, URINE SMALL (Negative); KETONE, URINE TRACE (Negative); LEUK ESTERASE, URINE SMALL (negative); NITRITE, URINE NEGATIVE (negative); PH, URINE 5.5 (5-7)
[2025-01-21 15:03] LABS: BACTERIA, URINE 2+ /hpf (negative); CASTS, URINE NONE SEEN \\lpf; CRYSTALS, URINE NONE SEEN (0-1+); EPITHELIAL CELLS, URINE SQUAMOUS 1+ /lpf (0-1+); WHITE BLOOD CELLS, URINE >50 /HPF (0-5)
[2025-01-21 15:04] LABS: COLLECTION TYPE, URINE CLEAN CATCH; REFLEX CULTURE, URINE Yes (No)
[2025-01-21 15:10] LABS: BASOPHILS 0.1 % (0-2); EOSINOPHILS 0.6 % (0-6); HEMATOCRIT 31.2 % (35.0-50.0); HEMOGLOBIN 10.8 g/dL (12.0-18.0); LYMPHOCYTES 8.8 % (24-44); MCH 31.2 (27-36); MCHC 34.5 g/dl (30-36); MCV 90.2 fl (81-99); MONOCYTES 4.5 % (0-12); PLATELET COUNT 352 K/uL (140-440); RBC 3.45 M/ul (4.3-5.7)
[2025-01-21 15:30] LABS: ALBUMIN 1.8 g/dL (3.4-5.0); ALBUMIN/GLOBULIN RATIO 0.51 (1.1-2.4); ANION GAP 10.7 (7-21); BILIRUBIN, TOTAL 0.3 mg/dL (0.2-1.0); BUN/CREATININE RATIO 37.71 (6.0-28.6); CALCIUM 8.5 mg/dL (8.5-10.1); CREATININE, SERUM 1.14 mg/dL (0.55-1.02); POTASSIUM 3.7 mmol/L (3.5-5.1); PROTEIN, TOTAL 5.3 g/dL (6.4-8.2)
[2025-01-21 15:43] LABS: INR 1.28 (0.80-1.30); PROTIME 15.2 Sec (11.2-14.2)
[2025-01-21] MEDS ORDERED: SODIUM CHLORIDE 0.9% 1,000 ML IV PRN (16:00)
[2025-01-21] MEDS ORDERED: CEFTRIAXONE SODIUM 1 GM in SODIUM CHLORIDE 0.9% 100 ML IV ONE (16:00)
[2025-01-21] MEDS ORDERED: ACETAMINOPHEN 325 MG TAB PO PRN (16:30)
[2025-01-21] MEDS ORDERED: SODIUM CHLORIDE 0.9% 1,000 ML IV SCH (16:30)
[2025-01-21] MEDS ORDERED: ondansetron HCL 4 MG/2 ML VIAL IV PRN (16:30)
[2025-01-21] MEDS ORDERED: SOTALOL80 MG PO (16:43)
[2025-01-21] MEDS ORDERED: ELIQUIS5 MG PO (16:46)
[2025-01-21] MEDS ORDERED: LOSARTAN POTAS100 MG PO (16:47)
[2025-01-21] MEDS ORDERED: HYDROCODONE/APAP 10/325 1 TAB PO PRN (17:15)
--- NOTE | 2025-01-21 18:00 | NUR ---
THIS RN AND ROSA WIGGINS PICK PATIENT UP FROM EMERGENCY DEPARTMENT AT 1710. REPORT RECEIVED FROM LAMIN Quiles RN. PATIENT IS RESTING IN STRETCHER WITH SON PRESENT IN ROOM. SKIN CARE CHECKS COMPLETE WITH LAMIN Quiles RN. PT TRANSPORTED TO HOSPITAL FLOOR AND TRANSFERRED WITH THIS RN, ROBERT Ford RN, ROSA WIGGINS AND KEN LEE USING GLIDE SHEET TO NEW HOSPITAL BED. VS OBTAINED, WT OBTAINED.
[2025-01-21 18:04] VITALS: BP 102/48
--- NOTE | 2025-01-21 18:40 | NUR ---
WAFFLE OVERLAY APPLIED TO MATTRESS FOR PT SKIN AND COMFORT. ASSESSMENT COMPLETE. SECOND SKIN CHECK COMPLETED WITH ROBERT Ford, JORDI. PT HAS MULTIPLE OPEN PRESSURE ULCER WOUNDS ON HER COCCYX WITH ENTIRE BACKSIDE REDDENED. ALL WOUNDS ARE DRAINING SEROSANGUINOUS FLUID. AREA IS TOO LARGE FOR OUR LARGEST SACRAL ALLEVYN. PICTURES TAKEN AND PLACED IN CHART. ABD PLACED WITH FOAM TAPE FOR DRAINAGE WHILE WAITING WOUND CONSULT. PT HAS PRESSURE ULCER ALSO TO MEDIAL ASPECT OF HER LEFT HEEL, ALLEVYN PLACED. SKIN TEARS NOTED TO BILAT FOREARMS - R FOREARM SKIN TEAR IS SCABBED AND BEGINNING TO HEAL, L FOREARM SKIN TEAR IS OPEN AND WEEPING SEROUS FLUID. ALLEVYN PLACED. PT IS FEARFUL DURING TURNS IN BED, REPORTS SHE HAS FALLEN OUT OF BED BEFORE AND SHE IS AFRAID. SHE ALSO REPORTS THAT IT IS PAINFUL FOR HER TO TURN. PATIENT DOES TOLERATE WOUND DRESSINGS AND TURNS WELL WITH MULTIPLE STAFF MEMBERS PRESENT TO ASSIST AND COMFORT. PT REPORTS THAT SHE FEELS HUNGRY, SHE REPORTS SHE HAS NOT EATEN IN THREE DAYS BECAUSE HER STOMACH HAS BEEN UPSET AND SHE HAS HAD NAUSEA AND DIARRHEA. PT LUNG SOUNDS WITH SCATTERED RHONCHI IN THE RLL, DIMINISHED IN BOTH BASES. PT DENIES SHORTNESS OF BREATH OR TROUBLE BREATHING. PT REPORTS FEELING COLD - WARM BLANKETS PROVIDED. PT'S HEART RATE IS IRREGULAR, PT HAS HISTORY OF AFIB. DENIES CHEST PAIN OR CHEST TIGHTNESS. PT HAS PUREWICK IN PLACE TO WALL SUCTION, DUE TO VOID AT THIS TIME. DINNER TRAY IS PRESENT AND PT REPORTS THAT SHE IS EXCITED TO EAT. DINNER TRAY PROVIDED, WATER AND APPLEJUICE PROVIDED. PT HAS IVF INFUSING AT 125ML/HR INTO HER R AC. NO REQUESTS AT THIS TIME. CALL LIGHT IN REACH.
--- NOTE | 2025-01-21 19:28 | NUR ---
REPORT RECEIVED FROM JORDI RICE. PATIENT RESTING IN BED. PATIENT DENIES ANY NEEDS AT THIS TIME. CALL LIGHT AND PERSONAL BELONGINGS WITHIN REACH.
--- NOTE | 2025-01-21 20:30 | NUR ---
PATIENT RESTING IN BED WITH EYES CLOSED. EVEN AND UNLABORED RESPIRATIONS NOTED. CALL LIGHT AND PERSONAL BELONGINGS ARE WITHIN REACH.
[2025-01-21] MEDS ORDERED: APIXABAN 5 MG TAB PO SCH (21:00)
[2025-01-21] MEDS ORDERED: MELATONIN 3 MG TAB PO PRN (21:00)
[2025-01-21] MEDS ORDERED: DIGOXIN 125 MCG TAB PO SCH (21:00)
[2025-01-21] MEDS ORDERED: SOTALOL HCL 80 MG TAB PO SCH (21:00)
[2025-01-21] MEDS ORDERED: MIRTAZAPINE 15 MG TAB PO SCH (21:00)
[2025-01-21 21:01] VITALS: BP 99/43
--- NOTE | 2025-01-21 21:13 | NUR ---
FUR TRIMMING MACHINE OPERATOR OBTAINED VITALS AND I&O. PUREWICK CANNISTER EMPTIED. PT BOOSTED IN BED AND RN NOTIFED OF B/P /43. PT STATES NO FURTHER NEEDS AT THIS TIME. CALL LIGHT WITHIN REACH AND BED ALARM ON.
[2025-01-21 21:15] VITALS: BP 99/43
--- NOTE | 2025-01-21 21:25 | NUR ---
PATIENT BLOOD PRESSURE WAS 99/43 WITH A MAP OF 56. DR JACKSON CONTACTED DUE TO PATIENT SCHEDULED TO RECEIVED DIGOXIN AND SOTALOL AT THIS TIME. MD WITH VERBAL ORDER TO HOLD DIGOXIN AND SOTALOL AT THIS TIME. WITH NO FURTHER ORDERS AT THIS TIME.
--- NOTE | 2025-01-21 21:30 | NUR ---
PATIENT ASSESSMENT COMPLETED. PATIENT MEDICATED PER EMAR. NEW ALLEVYN PLACED TO LEFT AND RIGHT HEEL, PICTURES TAKEN. PATIENT REPOSITIONED BY THIS RN AND JORDI PATRICK. PATIENT WITHOUT FURTHER NEEDS AT THIS TIME. IV INFUSING, NO S/SX OF INFILTRATION/INFECTION NOTED. CALL LIGHT AND PERSONAL BELONGINGS WITHIN REACH.
--- NOTE | 2025-01-21 22:10 | NUR ---
PATIENT RESTING IN BED WITH EYES CLOSED. EVEN AND UNLABORED RESPIRATIONS NOTED. CALL LIGHT AND PERSONAL BELONGINGS ARE WITHIN REACH.
[2025-01-22] VITALS (13 sets, daily range): BP systolic 96–126; BP diastolic 36–54
--- NOTE | 2025-01-22 | NUR ---
PATIENT REPOSITIONED AT THIS TIME TIME BY THIS RN. PATIENT WITHOUT FURTHER NEEDS. CALL LIGHT AND PERSONAL BELONGINGS ARE WITHIN REACH.
--- NOTE | 2025-01-22 01:30 | NUR ---
PATIENT RESTING IN BED WITH EYES CLOSED. EVEN AND UNLABORED RESPIRATIONS NOTED. CALL LIGHT AND PERSONAL BELONGINGS ARE WITHIN REACH.
--- NOTE | 2025-01-22 02:42 | NUR ---
PATIENT REPOSITIONED BY THIS RN AND JORDI PATRICK. PUREWICK CHANGED AT THIS TIME AND PLACED NEW CHUX WITH BRIEF ADDED. PATIENT REPORTS 12/10 PAIN, PAIN MEDICATION GIVEN. FRESH ICE WATER, APPLE JUICE, AND APPLESAUCE PROVIDED. VITAL SIGNS TAKEN AND ARE STABLE. PATIENT WITHOUT FURTHER NEEDS AT THIS TIME. COCCYX DRESSING IS CLEAN, DRY, AND INTACT. CALL LIGHT AND PERSONAL BELONGINGS ARE WITHIN REACH.
--- NOTE | 2025-01-22 05:27 | NUR ---
PATIENT RESTING IN BED. VS AND I&Os OBTAINED AND RECORDED. PATIENT REPOSITIONED IN BED. PATIENT DENIES FURTHER NEEDS AT THIS TIME. CALL LIGHT IN REACH.
[2025-01-22 05:32] LABS: BASOPHILS 0.3 % (0-2); EOSINOPHILS 0.9 % (0-6); HEMATOCRIT 28.8 % (35.0-50.0); HEMOGLOBIN 9.7 g/dL (12.0-18.0); LYMPHOCYTES 14.2 % (24-44); MCH 30.8 (27-36); MCHC 33.8 g/dl (30-36); MCV 91.1 fl (81-99); MONOCYTES 6.4 % (0-12); NEUTROPHILS 78.2 % (39-80); PLATELET COUNT 316 K/uL (140-440); RBC 3.16 M/ul (4.3-5.7); RDW 15.1 (10.5-15.0)
[2025-01-22 05:50] LABS: ALBUMIN 1.7 g/dL (3.4-5.0); ALBUMIN/GLOBULIN RATIO 0.5 (1.1-2.4); ANION GAP 11.3 (7-21); BILIRUBIN, TOTAL 0.3 mg/dL (0.2-1.0); BUN/CREATININE RATIO 45.45 (6.0-28.6); CREATININE, SERUM 0.66 mg/dL (0.55-1.02); MAGNESIUM 1.3 mg/dL (1.8-2.4); PHOSPHORUS, INORGANIC 2.3 mg/dL (2.5-4.9); POTASSIUM 3.3 mmol/L (3.5-5.1); PROTEIN, TOTAL 5.1 g/dL (6.4-8.2)
--- NOTE | 2025-01-22 06:07 | NUR ---
PRN PAIN MEDICATION ADMINISTERED FOR 5/10 LOWER BACK PAIN PER PATIENT REQUEST. PATIENT DENIES FURTHER NEEDS AT THIS TIME. CALL LIGHT IN REACH.
--- NOTE | 2025-01-22 07:21 | NUR ---
REPORT RECEIVED FROM JORDI SAMUEL AND JORDI PATRICK. PATIENT IS RESTING IN BED AWAKE AND ALERT, SHE IS ASKING ABOUT BREAKFAST. EXCESS BLANKETS AND PILLOWS REMOVED, BED WEIGHT OBTAINED AND RECORDED. WARM BLANKETS APPLIED. PATIENT IS POSITIONED TILTED SLIGHTLY ON HER R HIP. PUREWICK IN PLACE. IVF INFUSING WNL. NO REQUESTS, CALL LIGHT AND PERSONAL BELONGINGS IN REACH.
[2025-01-22] MEDS ORDERED: POTASSIUM CHLORIDE 40 MEQ,LIDOCAINE HCL 1% 40 MG in DEXTROSE 5% 250 ML IV ONE (07:45)
[2025-01-22] MEDS ORDERED: POTASSIUM PHOSPHATE 30 MMOL in DEXTROSE 5% 500 ML IV ONE (07:45)
--- NOTE | 2025-01-22 08:26 | NUR ---
UR CLINICAL REVIEW: 2MN PAL, MEETS INPT FOR UTI, DECUBITAL WOUNDS WITH OSTEOMYELITIS, COLITIS, MARTIN IV FLUIDS, IV ANTIBIOTICS, WOUND CARE, SURGICAL CONSULT LIKELY MEDICARE INPT 01/21/2025 @ 1631 ORDER MATCHES REG NO AUTH REQUIRED PER MEDICARE RULES DC PLAN PENDING FURTHER EVAL. ANTICIPATE 1-2 MIDNIGHTS.
[2025-01-22] MEDS ORDERED: MAGNESIUM SULFATE 2 GM/50 ML BAG IV SCH (09:00)
[2025-01-22] MEDS ORDERED: ENOXAPARIN SODIUM 40 MG/0.4 ML SYR SUB-Q SCH (09:00)
[2025-01-22] MEDS ORDERED: CEFTRIAXONE SODIUM 2 GM in SODIUM CHLORIDE 0.9% 100 ML IV SCH (09:00)
--- NOTE | 2025-01-22 09:12 | NUR ---
PATIENT'S BLOOD PRESSURE IN LEFT ARM IS 93/36(51). PATIENT WAKES, BECOMES ALERT, BEGINS EATING BREAKFAST. BLOOD PRESSURE RECHECK AFTER 10 MINUTES IS 116/58(72). MD NOTIFIED, MD AGREEABLE TO ADMINISTERING PATIENT'S SOTALOL. MEDICATION ADMINISTERED. PATIENT'S PULSE RANGING 66-72 THROUGHOUT.
--- NOTE | 2025-01-22 09:42 | NUR ---
MEDICATION ADMINISTERED, SEE MAR. ASSESSMENT COMPLETE. PT IS RESTING IN BED, PREVIOUSLY WITH PILLOW UNDER HER LEFT HIP, NOW ON UPRIGHT TO EAT BREAKFAST. PT LUNG SOUNDS ARE CLEAR IN BILAT UPPER LOBES, DIMINISHED IN BILAT BASES WITH FAINT, FINE CRACKLES TO HER RLL. PT REPORTS HER COCCYX AND LEG PAIN IS CURRENTLY AT A 5/10, SHE DENIES ANY INTERVENTIONS AT THIS TIME. ALLEVYNS REMAIN IN PLACE TO L FOREARM AND BILAT HEELS, ABD IN PLACE ON SACRUM. PUREWICK IN PLACE WITH BRIEF, NO URINE CURRENTLY NOTED IN WALL SUCTION. PT IS EATING BREAKFAST AT THIS TIME, REPORTS THAT IT IS VERY GOOD. PT REPORTS FEELING BETTER THIS MORNING THAN SHE DID YESTERDAY. IV MEDICATIONS ARE INFUSING WNL TO HER R AC. PT HAS NO REQUESTS, CALL LIGHT AND PERSONAL BELONGINGS IN REACH.
--- NOTE | 2025-01-22 09:46 | NUR ---
VISITED DURING SPIRITUAL CARE ROUNDS. PT STILL WORKING ON BREAKFAST SO SHORT VISIT. PT INDICATED NO NEEDS AT THIS TIME. CERTIFIED COMPOSITES TECHNICIAN PROVIDED SUPPORTIVE PRESENCE, HOSPITALITY, PRAYER.
--- NOTE | 2025-01-22 10:34 | NUR ---
IDALIA FROM CASE MANAGEMENT PRESENT TO SEE PATIENT. PATIENT'S SON ALSO ARRIVES AT THIS TIME.
--- NOTE | 2025-01-22 11:00 | NUR ---
Spoke with Rebecca. She is resting in bed. She was able to feed herself food that was provided this am. She states she has been living at home with her son Cruz. She is bedbound and does not get out of bed. She has several pieces of DME, son does not assist her out of bed. Pt now stating she spent 90 days at [place]. Son arrives and now is also stating pt as [place] med[place] and they have cg who started visiting her last. He thinks she has 30 hrs per week or possible every 2 weeks. Son feels he can manage her care at home. I spoke with Dr. Jacobs and then returned to the room to update son and pt. I attempted to explain to him last night and again today, her wounds are significantly worse. They may require surgery. We are waiting for a wound care consult and then possibly and surgical consult. Pt will most likely need 6 weeks of IV antibiotics. Son cont. to complain it is the hospitalist fault this pt cannot walk. She was sent to a SNF approx 2 years ago and has not walked since. PT/OT arrive and the Master Rigger from [facility] called and updated Cruz, pt used 90 days, but on 01/27/25 she will have met her 60 days for no admission and will be able to return to a SNF. They are ok to take her back, depending on what her needs are on dc. I spoke with Rebecca and she would like to return to [facility] on discharge. She understands, it is not clear when she will be ready for dc. I returned to my office and called Admin at [facility], left a message I will fax the chart and it is unclear when this pt will be ready for dc. I then called and left a message for Danielle Wen at [facility] to check if this pt does have [place] medicaid, if so she could go as a [place] care pt and could dc sooner if able.
--- NOTE | 2025-01-22 11:55 | NUR ---
MD VISITS AND ASSESSES PATIENT, QUESTIONS AND CONCERNS ANSWERED AND ADDRESSED. PATIENT IS COMPLAINING OF BACK PAIN 5/10, PRN PAIN MEDICATION ADMINISTERED FOR HER BACK AND ALSO PROPHYLACTICALLY IN PREPARATION OF CHANGING THE ABD PAD ON PATIENT'S COCCYX. PATIENT IS RESTING IN BED VISITING WITH HER SON. NO OTHER REQUESTS AT THIS TIME. CALL LIGHT AND PERSONAL BELONGINGS IN REACH.
--- NOTE | 2025-01-22 11:57 | NUR ---
Call from Danielle Wen, pt does have skilled nursing medicaid. Pt does have cg in the home. Pt does qualify for placement to SNF for terminal carman care. I will pass this on to Dr. Jacobs.
[2025-01-22] MEDS ORDERED: PHARMACY RENAL DOSE ADJUSTMENT 1 DOSE MISC PO SCH (12:00)
--- NOTE | 2025-01-22 12:26 | NUR ---
WOUND CARE PERFORMED TO PATIENT'S COCCYX. ABD PAD REMOVED, GAUZE SATURATED WITH WOUND CLEANSER USED TO CLEANSE ROSALINE-WOUNDS AND COCCYX, NEW ABD PLACED. NO TAPE USED, ABD CURRENTLY HELD IN PLACE WITH BRIEF TO PREVENT SKIN BREAKDOWN. PATIENT DOES NOT TURN ON HER SIDE WELL AND COMPLAINS OF PAIN IN HER BACK THROUGHOUT. PATIENT'S SON IS IN THE ROOM AND STATES THAT THIS IS NOT HOW HE TAKES CARE OF HER WOUNDS AT HOME, HE IS CONTINUALLY ADVISING ON HOW WE SHOULD BE CARING FOR HER WOUNDS. SON EDUCATED ON WOUND CARE NURSE VISITING AND COMING UP WITH A PLAN WHICH MAY OR MAY NOT ALIGN TO HOW HE HAS BEEN CARING FOR THE WOUNDS. PATIENT ASSISTED TO REPOSITION IN BED, CONTINUES TO HAVE A TILT ONTO HER R HIP EVEN WITH REPOSITIONING WITH THIS RN AND ROSA WIGGINS. LUNCH TRAY ARRIVES, PATIENT BEGINS TO EAT LUNCH. NO REQUESTS AT THIS TIME, CALL LIGHT AND PERSONAL BELONGINGS IN REACH.
--- NOTE | 2025-01-22 13:00 | NUR ---
In pt room for IV pump alarming. Pt is awake, writing down her dietary needs. IV pump alarm as occluded on patient end. IV site is patent, no redness, no swelling, no leaking noted. Pt has no c/o pain or discomfort. IV pump restarted. Pt's son advised that the pt can have peanut butter and states she has been asking for some. Primary RN notified. Pt's son also complained that staff have been in with pt working with her around meal times which "throws off her appetite" and states that she hasn't eaten anything for breakfast now and now lunch. Side rails up x4, call light in reach.
[2025-01-22] MEDS ORDERED: TYLENOL EXTRA500 MG PO (13:16)
--- NOTE | 2025-01-22 13:16 | NUR ---
MED REC COMPLETE
--- NOTE | 2025-01-22 14:10 | NUR ---
In with pt in response to call light, pt's son states the pt's IV is kinked. Assessment of IV site reveals the IV tubing folded over on itself, however, IV pump is functioning properly with no alarms. Straightened tubing out, placed a pillow between pt's head and shoulders and the rail at her son's request. IV site is patent, no redness, no swelling, no leaking noted, pt has no c/o pain or discomfort. Side rails up x4, call light in reach. Advised pt that I will return with her primary RN to change her purewick shortly and assess her wounds.
--- NOTE | 2025-01-22 15:22 | NUR ---
PATIENT REPOSITIONED WITH JORDI GALLEGO. ROSALINE-CARE PROVIDED, NEW PUREWICK PLACED, FRESH GOWN PROVIDED, NEW BRIEF IN PLACE. ABD PAD TO COCCYX WOUNDS REMAINS IN PLACE WITH BRIEF TO HOLD IT IN PLACE. PATIENT IS POSITIONED WITH PILLOWS UNDER BILAT HIPS, R SHOULDER, AND BLE TO FLOAT HEELS. ALLEVYNS REMAIN IN PLACE TO BILAT HEELS AND L FOREARM. IV IN R AC HAS INFILTRATED. IV REMOVED WNL, PRESSURE HELD AT SITE, PT IS NOT BLEEDING. JORDI GALLEGO PLACED NEW IV IN L AC. IVF AND IV MEDICATIONS INFUSING WNL. PT TOLERATES TURNING IN BED WELL, SOME MILD FEAR BUT ALLEVIATED WITH EXPLAINING CARES AND THERAPEUTIC COMMUNICATION. SOME PAIN TO HER COCCYX. PATIENT DOES NOT ASK FOR INTERVENTIONS AT THIS TIME. PATIENT REPORTS SHE IS COMFORTABLE IN BED. NO REQUESTS, CALL LIGHT AND PERSONAL BELONGINGS IN REACH, BED IN LOWEST POSITION.
[2025-01-22] MEDS ORDERED: DAPTOmycin 500 MG/10 ML VIAL IV SCH (16:15)
--- NOTE | 2025-01-22 16:28 | NUR ---
PATIENT RESTING IN BED WITH EYES CLOSED, RR EVEN AND UNLABORED. IVF INFUSING WNL. CALL LIGHT AND PERSONAL BELONGINGS IN REACH.
--- NOTE | 2025-01-22 17:08 | NUR ---
PATIENT ASSISTED TO SIT UP HIGH IN BED FOR SUPPER. TRAY SET UP FOR HER. PATIENT ASSISTED IN REPLACING HER DENTURES AND GLASSES, NOW CURRENTLY EATING INDEPENDENTLY. MILK PROVIDED PER REQUEST. NO OTHER REQUESTS, CALL LIGHT AND PERSONAL BELONGINGS IN REACH.
--- NOTE | 2025-01-22 18:19 | NUR ---
PATIENT IN BED AT THIS TIME EXHIBIT TECHNICIAN CHARTED VITALS AND I&O'S. CALL LIGHT WITHIN REACH, NO FURTHER NEEDS AT THIS TIME.
--- NOTE | 2025-01-22 18:52 | NUR ---
NEW BAG OF IVF HUNG. PATIENT IS RESTING IN BED WITH EYES CLOSED, RR EVEN AND UNLABORED. HER TABLET IS IN HER LAP. CALL LIGHT AND PERSONAL BELONGINGS IN REACH.
--- NOTE | 2025-01-22 19:15 | NUR ---
REPORT RECEIVED FROM JORDI RICE. PATIENT RESTING IN BED WITH EYES CLOSED EVEN AND UNLABORED RESPIRATIONS NOTED. CALL LIGHT AND PERSONAL BELONGINGS ARE WITHIN REACH.
--- NOTE | 2025-01-22 19:22 | NUR ---
GIVES 'OK' FOR WOUND CULTURE TO BE COLLECTED LATE AT TOMORROW MORNING WITH WOUND CARE CONSULT NURSE ANTIBIOTICS HAVE ALREADY BEEN INITIATED. WOUND CARE NURSE MAY BE ARRIVING LATE TONIGHT OR TOMORROW MORNING. COCCYX WOUND REMAINS COVERED WITH ABD PAD AT THIS TIME. FULL REPORT AND PASS ON HAVE BEEN GIVEN TO NOC SHIFT RNs.
--- NOTE | 2025-01-22 20:30 | NUR ---
PATIENT REPOSITIONED AT THIS TIME. FRESH ICE WATER PROVIDED. PATIENT DENIES ANY FURTHER NEEDS AT THIS TIME. CALL LIGHT AND PERSONAL BELONGINGS ARE WITHIN REACH. VS STABLE.
--- NOTE | 2025-01-22 21:07 | NUR ---
BREAK OUT WORKER OBTAINED I&O. PUREWICK CANNISTER EMPTIED. RN AND BREAK OUT WORKER REPOSTIONED PT ONTO RIGHT SIDE WITH PILLOWS UNDER LEFT HIP. PT STATES NO FURTHER NEEDS AT THIS TIME. CALL LIGHT WITHIN REACH.
--- NOTE | 2025-01-22 21:08 | NUR ---
PATIENT CALLED FOR REPOSITIONING. PATIENT TURNED TOWARDS HER RIGHT SIDE BY THIS RN AND ROSA ROBB. PATIENT DENIES ANY FURTHER NEEDS AT THIS TIME. CALL LIGHT AND PERSONAL BELONGINGS ARE WITHIN REACH.
--- NOTE | 2025-01-22 22:14 | NUR ---
PATIENT RESTING IN BED ON TABLET. PATIENT REQUESTING TO TURN LIGHT ON IN ROOM. THIS RN EDUCATED PATIENT ON USE OF LIGHT BUTTON ENGRAVER SIGNATURE LIGHT. PATIENT WITHOUT FURTHER NEEDS AT THIS TIME. CALL LIGHT AND PERSONAL BELONGINGS ARE WITHIN REACH.
--- NOTE | 2025-01-22 23:09 | NUR ---
PATIENT RESTING IN BED ON HER TABLET. CALL LIGHT AND PERSONAL BELONGINGS ARE WITHIN REACH.
--- NOTE | 2025-01-22 23:51 | NUR ---
PT REPOSITIONED TO LEFT SIDE W/ MINIMAL ASSIST. NEW PUREWICK PLACED, ROSALINE CARE PROVIDED. NEW ABD DRSG TO COCCYX REQUIRED-PREVIOUS DRSG VERY DAMP W/ SEROSANG DRNG. COCCYX WOUNDS W/ NECROTIC TISSUE, SOME TUNNELING. VERY ODOROUS. SURROUNDING SKIN TO COCCYX REDDENED. PUDDING PROVIDED PER PT REQUEST. CALL LIGHT WITHIN REACH. PT REQUESTING PAIN MED-WILL MEDICATE PER EMAR.
[2025-01-23] VITALS (8 sets, daily range): BP systolic 116–150; BP diastolic 59–69
--- NOTE | 2025-01-23 01:10 | NUR ---
PATIENT RESTING IN BED REPORTING PAIN AFTER BEING TURNED AND DRESSING CHANGED. PATIENT ALREADY RECEIVED PAIN MEDICATION. THIS RN LET PATIENT KNOW TO CALL IF PAIN DOESN'T GET BETTER WITHIN NEXT HOUR. PATIENT VERBALIZED UNDERSTANDING. PATIENT ALSO REPORTS NOT BEING ABLE TO SLEEP. PRN MELATONIN GIVEN AT THIS TIME. PATIENT WITHOUT FURTHER NEEDS AT THIS TIME. CALL LIGHT AND PERSONAL BELONGINGS ARE WITHIN REACH.
--- NOTE | 2025-01-23 03:14 | NUR ---
PATIENT UNABLE TO SLEEP AT THIS TIME. PATIENT REPORTING PAIN THAT HAS NOT RESOLVED. THIS RN LET PATIENT KNOW SHE CAN HAVE MORE PAIN MEDICATION IN ANOTHER 30MINS THEN WE CAN REPOSITION PATIENT AGAIN. PATIENT NOT WANTING TO MOVE UNTIL MORE PAIN MEDS AVAILABLE. CALL LIGHT AND PERSONAL BELONGINGS ARE WITHIN REACH.
--- NOTE | 2025-01-23 04:00 | NUR ---
PATIENT REPORTING 9/10 PAIN. PAIN MEDICATED PER EMAR. PATIENT LET THIS RN AND ROSA ROBB REPOSITION PATIENT AT THIS TIME. VITALS TAKEN AND ARE STABLE. PATIENT WITHOUT FURTHER NEEDS AT THIS TIME. CALL LIGHT AND PERSONAL BELONGINGS ARE WITHIN REACH.
[2025-01-23 05:30] LABS: BASOPHILS 0.2 % (0-2); EOSINOPHILS 2.1 % (0-6); HEMATOCRIT 28.6 % (35.0-50.0); HEMOGLOBIN 9.8 g/dL (12.0-18.0); LYMPHOCYTES 20.6 % (24-44); MCH 31.1 (27-36); MCHC 34.1 g/dl (30-36); MCV 91.2 fl (81-99); MONOCYTES 5.7 % (0-12); NEUTROPHILS 71.4 % (39-80); PLATELET COUNT 316 K/uL (140-440); RBC 3.14 M/ul (4.3-5.7); RDW 14.7 (10.5-15.0)
[2025-01-23 05:47] LABS: ALBUMIN 1.6 g/dL (3.4-5.0); ALBUMIN/GLOBULIN RATIO 0.5 (1.1-2.4); ANION GAP 8.9 (7-21); BILIRUBIN, TOTAL 0.2 mg/dL (0.2-1.0); BUN/CREATININE RATIO 31.48 (6.0-28.6); CALCIUM 7.7 mg/dL (8.5-10.1); CREATININE, SERUM 0.54 mg/dL (0.55-1.02); POTASSIUM 3.9 mmol/L (3.5-5.1); PROTEIN, TOTAL 4.8 g/dL (6.4-8.2)
[2025-01-23 05:50] LABS: MAGNESIUM 1.8 mg/dL (1.8-2.4); PHOSPHORUS, INORGANIC 1.6 mg/dL (2.5-4.9)
--- NOTE | 2025-01-23 06:00 | NUR ---
PATIENT RESTING IN BED WITH EYES CLOSED. EVEN AND UNLABORED RESPIRATIONS NOTED. CALL LIGHT AND PERSONAL BELONGINGS ARE WITHIN REACH.
--- NOTE | 2025-01-23 07:33 | NUR ---
Patient in bed resting, eyes closed, respirations even/non labored. Patient has no notable distress. IV fluids infusing per order. Personal supplies and call light within reach.
--- NOTE | 2025-01-23 08:07 | NUR ---
PATIENT IN BED AT THIS TIME. THIS THREADER OPERATOR DID HOURLY ROUNDS ON PATIENT. CALL LIGHT WITHIN REACH, NO FURTHER NEEDS AT THIS TIME.
[2025-01-23] MEDS ORDERED: SODIUM PHOSPHATE 30 MMOL in DEXTROSE 5% 250 ML IV ONE (08:15)
--- NOTE | 2025-01-23 08:24 | NUR ---
Patient requesting to sleep a bit longer, no distress noted.
--- NOTE | 2025-01-23 08:58 | NUR ---
PATIENT IN BED AT THIS TIME. THIS CHURCH SECRETARY CHANGED PATIENTS PUREWICK AT [phone] AND PROVIDED ROSALINE CARE FOR PATIENT. THIS CHURCH SECRETARY ALSO SET PATIENT FOR BREAKFAST. CALL LIGHT WITHIN REACH, NO FURTHER NEEDS AT THIS TIME.
--- NOTE | 2025-01-23 09:03 | NUR ---
Patient is awake siting up in bed eating breakfast, tolerating well. Patient reports 10/10 coccyx pain, admin one tab norco 10/325mg po at this time. Patients IV is patent, scheduled abx infusing. Patient reports she slept well last night. No current needs, bed alarm intact.
--- NOTE | 2025-01-23 11:00 | NUR ---
WOUND CARE CONSULTED FOR SACRAL WOUNDS AND HEEL WOUNDS. HISTORY OF PRESENT ILLNESS: PT IS AN 84 YEAR OLD FEMALE ADMITTED ON 01/21/25 FOR INFECTED SACRAL DECUBITUS ULCERS, FAILURE TO THRIVE AND MARTIN. RECENT ADMISSION ON 10/18/24 FOR FAILURE TO THRIVE, FAMILIAR WITH WOUND CARE. ED VISITS ON 12/15/24 AND 12/20/24. BEDBOUND AT [facility]. LIVES WITH SON WHO IS ALSO HER BULLET CASTING OPERATOR. 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 HISTORY COLLECTED FROM CHART. ALLERGIES: PENICILLINS, SULFA, OXYCODONE MEGHAN SCORE: 11 UPON ASSESSMENT NOTED A WOUND TO THE LEFT HEEL, LEFT SACRUM, RIGHT AND MID-SACRUM. WHEN ASKED HOW LONG THESE WOUNDS HAVE BEEN PRESENT, PT REPORTS, A LONG TIME. NOTED WOUND CONSULT ON 10/18/24 DOCUMENTS PRESENCE OF WOUNDS OVER THE LEFT, RIGHT AND MID SACRUM. PT CURRENTLY BEDBOUND. PT/OT ORDERED. PT CURRENTLY ON AN ACCUMAX SURFACE WITH A WAFFLE STATIC OVERLAY. WOUND ASSESSMENT: LEFT HEEL, PRESSURE INJURY CLASSIFICATION: UNSTAGABLE PRESSURE INJURY SIZE: 1.5 CM X 1.2 CM WOUND BASE: 100% YELLOW MOIST, FIRMLY ADHERENT SLOUGH, OBSCURES WOUND DEPTH, UNABLE TO STAGE PRESSURE INJURY AT THIS TIME. EDGES: INDISTINCT EXUDATE: None ROSALINE WOUND SKIN: DENUDEMENT AT 11:00. REMAINING PINK DRY WARM. WOUND ASSESSMENT: RIGHT SACRUM, ETIOLOGY PRESSURE INJURY CLASSIFICATION: UNSTAGABLE PRESSURE INJURY SIZE: 3.5 CM X 5 CM X 0.9 CM WOUND BASE: 95% BROWN/YELLOW FIRMLY ADHERENT SLOUGH, OBSCURES WOUND DEPTH, UNABLE TO STAGE PRESSURE INJURY AT THIS TIME. 5% PINK TISSUE VISIBLE UNDER NECROTIC TISSUE. EDGES: INDISTINCT EXUDATE: Green ROSALINE WOUND SKIN: INTACT PINK MOIST WARM, BLANCHABLE. WOUND ASSESSMENT: LEFT SACRUM, ETIOLOGY PRESSURE INJURY CLASSIFICATION: STAGE 4, PRESSURE INJURY SIZE: 3 CM X 4.5 CM X 0.8 CM TUNNELIN CM AT 3:00. WOUND BASE: 90% RED, MOIST, FRIBALE TISSUE, 10% YELLOW MOIST, FIRMLY ADHERENT SLOUGH. EDGES: DIFFUSE ATTACHED EXUDATE: Serosanguineous , GREEN, SMALL AMOUNT. ROSALINE WOUND SKIN: DENUDEMENT AT 12:00-3:00. REMAINING ROSALINE WOUND SKIN PINK MOIST WARM. WOUND ASSESSMENT: MID-SACRUM, ETIOLOGY PRESSURE INJURY AND EVOLVING DEEP TISSUE INJURY. CLASSIFICATION: UNSTAGABLE PRESSURE INJURY AND EVOLVING DEEP TISSUE PRESSURE INJURY. SIZE: 7 CM X 6 CM X 0.2 CM WOUND BASE: 50% MOIST ESCHAR, 50% PURPLE/MAROON INTACT, NON-BLANCHABLE SKIN, SUSPECTED DTPI. ESCHAR OBSCURES WOUND BASE, UNABLE TO STAGE AT THIS TIME. EDGES: INDISTINCT EXUDATE: None ROSALINE WOUND SKIN: DENUDEMENT PINK MOIST WARM, BLANCHABLE. PICTURES OBTAINED, SEE PAPER CHART. ALL SACRAL WOUND SIZES HAVE INCREASED SIGNIFICANTLY SINCE 10/18/24 EVALUATION. PROCEDURE: LEFT HEEL WOUND CLEANSED WITH NS AND PATTED DRY. MEDIHONEY APPLIED TO WOUND BASE WITH BORDERED FOAM DRESSING. SACRAL WOUNDS X3 CLEANSED WITH NS AND PATTED DRY. WOUND CULTURE OBTAINED AND SENT TO LAB. SACRAL WOUNDS X3 CLEANSED WITH VASE SOAK AND ALLOWED TO DWELL X10 MINUTES. DR. JACKSON IN PT ROOM TO ASSESS WOUNDS, RECOMMENDATIONS DISCUSSED. CONSERVATIVE SHARP DEBRIDEMENT PERFORMED TO RIGHT SACRAL WOUND. NECROTIC TISSUE REMOVED WITH #11 BLADE AND FORECEPTS, PT TOLERATED WELL. VASE SOAK APPLIED POST DEBRIDEMENT X10 MINUTES. SACREAL WOUNDS X3 PATTED DRY. CAVILON ADVANCED SKIN BARRIER FILM APPLIED PT ROSALINE WOUND SKIN AND OVER DTPI. INCH PLAIN PACKING IMPREGNATED WITH MEDIHONEY AND USED FILL THE LEFT SACRAL WOUND BASE AND TUNNELING. GAUZE IMPREGNATED WITH MEDIHONEY AND USED TO FILL RIGHT SACRAL WOUND BASE. SACRAL WOUNDS COVERED WITH POLYMEM NON-ADHERENT FOAM AND SECURED WITH LARGE BORDERED SACRAL FOAM DRESSING AND 4X4 FOAM DRESSING. PT TOLERATED WELL. TREATMENT RECOMMENDATIONS LEFT HEEL: CLEANSE WITH NS AND PAT DRY. APPLY MEDIHONEY TO BORDERED FOAM AND PLACE OVER WOUND BED. CHANGE DRESSING EVERY SATURDAY, SATURDAY AND SATURDAY AND PRN WHEN SOILED OR LOOSENED. LEFT SACRAL, RIGHT SACRAL AND MID-SACRAL WOUNDS: CLEANSE WOUNDS WITH VASE, APPLY VASE SOAKED GAUZE OVER WOUNDS AND ALLOW TO DWELL FOR 10 MINUTES AND THEN PAT DRY. APPLY CAVILON ADVANCED SKIN BARRIER FILM TO ROSALINE WOUND SKIN AND OVER THE MID-SACRAL WOUND SKIN, ALLOWED TO DRY FOR 30 SECONDS. IMPREGNATE INCH PLAIN PACKING STRIPS WITH MEDIHONEY AND USE IT TO FILL THE LEFT SACRAL WOUND BASE AND TUNNELING. IMPREGNATE GAUZE WITH MEDIHONEY AND USE IT TO FILL THE RIGHT SACRAL WOUND BASE. COVER THE LEFT AND RIGHT SACRAL WOUND BASES WITH POLYMEM FOAM AND ALLOW THE EXCESS TO COVER THE MID-SACRAL WOUND. SECURE THE DRESSING WITH A LARGE BORDERED SACRAL FOAM DRESSING AND BORDERED 4X4 FOAM NEEDED TO COVER COMPLETELY. CHANGE DRESSINGS EVERY SATURDAY, SATURDAY AND SATURDAY AND PRN WHEN SOILED OR LOOSENED. RECOMMEND VERSA CARE P500 OR [place] C200 BED SURFACE. USE WAFFLE STATIC OVERLAY AND Q2 TURNS UNTIL RECOMMENDED BEDSURFACE ARRIVES. OFF LOAD HEELS. RECOMMEND PUREWICK TO CONTROL URINARY INCONTINENCE TO PROTECT SKIN AND WOUNDS. RECOMMEND NUTRITIONAL CONSULT FOR CACHETIC APPEARANCE. GOALS: HEAL. OFF LOAD BONY PROMINENCES, DECREASE TOPICAL BACTERIAL BURDEN, DECREASE DE-VITALIZED TISSUE IN WOUND BASE. WOUND CARE SIGNING OFF. PLEASE RE-CONSULT FOR ANY NEW CONCERNS.
--- NOTE | 2025-01-23 12:44 | NUR ---
Patient sitting up in bed eating lunch, alert and oriented x3, no acute distress. Patient reports 10/10 coccyx pain, one tab norco 10/325mg po admin at this time. Patient denies further needs, call light within reach.
--- NOTE | 2025-01-23 15:12 | NUR ---
Patient resting in bed, eyes closed, respirations even and non labored. Patient has no notable distress. IV remains patent. Close to RN station, call light within reach.
--- NOTE | 2025-01-23 19:20 | NUR ---
REPORT RECEIVED FROM JORDI SUAREZ. PATIENT IS RESTING IN BED ON HER TABLET. PATIENT REQUESTING PAIN MEDICATION, BUT DENIES ANY OTHER NEEDS AT THIS TIME. CALL LIGHT AND PERSONAL BELONGINGS ARE WITHIN REACH.
--- NOTE | 2025-01-23 19:26 | NUR ---
Admin one tab norco 10/325mg po at this time for reports of 9/10 coccyx pain.
--- NOTE | 2025-01-23 20:40 | NUR ---
PATIENT MEDICATED PER EMAR. PATIENT REPORTS PAIN IS DOWN TO A 7/10 AFTER PAIN MEDICATION ADMINISTRATION FROM DAY SHIFT RN @ 1925. PATIENT TRANSFERED TO DIFFERENT BED AT THIS TIME VIA [facility] WITH THIS RN, JORDI MARKS AND JORDI HERNANDEZ. PATIENT TOLERATED WELL AND WAS COOPERATIVE. IV INFUSING AT 125ML/HR. IV SITE WITH NO S/SX OF INFILTRATION/INFECTION, DRESSING IS CLEAN, DRY, AND INTACT. PATIENT WITHOUT FURTHER NEEDS AT THIS TIME. CALL LIGHT AND PERSONAL BELONGINGS ARE WITHIN REACH.
--- NOTE | 2025-01-23 20:47 | NUR ---
PLACED ON ARJO BED. ALL PROCEDURES EXPLAINED. COOPERATIVE
--- NOTE | 2025-01-23 21:45 | NUR ---
PATIENT RESTING IN BED READING ON HER TABLET. PATIENT REPORTS PAIN IS DOWN TO A 6/10 AT THIS TIME. PATIENT DENIES ANY FURTHER NEEDS. CALL LIGHT AND PERSONAL BELONGINGS ARE WITHIN REACH. FALL MATS IN PLACE.
--- NOTE | 2025-01-23 23:29 | NUR ---
PATIENT RESTING IN BED WITH EYES CLOSED. EVEN AND UNLABORED RESPIRATIONS NOTED. CALL LIGHT AND PERSONAL BELONGINGS ARE WITHIN REACH.
--- NOTE | 2025-01-23 23:52 | NUR ---
RESTING, EYES CLOSED, NO S/SX DISTRESS, ON ARJO BED, IVF INFUSING
[2025-01-24] VITALS (9 sets, daily range): BP systolic 124–166; BP diastolic 59–70
--- NOTE | 2025-01-24 01:06 | NUR ---
PATIENT RESTING IN BED WITH EYES CLOSED. EVEN AND UNLABORED RESPIRATIONS NOTED. CALL LIGHT AND PERSONAL BELONGINGS ARE WITHIN REACH.
--- NOTE | 2025-01-24 02:45 | NUR ---
RESTING, ON ROOM AIR, EYES CLOSED, NO S/SX DITRESS. IVF INFUSING W/O PROBLEMS. DRESSING TO BUTTOCKS INTACT. PT ON ARJO BED. HOB ELEVATED.
--- NOTE | 2025-01-24 05:17 | NUR ---
Pt has slept very well this shift. on arjo bed. daily bed weight was 59.1KG soon after getting in to Arjo bed. Arjo bed was zeroed prior to. weight done with 2 pillows and reguler bedding. this am is 58.9kg. repositioned in bed. IVF infusing w/o problems. pure wick in place, changed at this time. draining large amount of cloudy yellow urine. denies c/o pain at this time
[2025-01-24 05:33] LABS: BASOPHILS 0.8 % (0-2); EOSINOPHILS 3.1 % (0-6); HEMATOCRIT 31.9 % (35.0-50.0); HEMOGLOBIN 10.7 g/dL (12.0-18.0); LYMPHOCYTES 25.7 % (24-44); MCH 30.8 (27-36); MCHC 33.7 g/dl (30-36); MCV 91.4 fl (81-99); MONOCYTES 7.7 % (0-12); NEUTROPHILS 62.7 % (39-80); PLATELET COUNT 380 K/uL (140-440); RBC 3.49 M/ul (4.3-5.7)
[2025-01-24 05:53] LABS: ALBUMIN 1.7 g/dL (3.4-5.0); ALBUMIN/GLOBULIN RATIO 0.46 (1.1-2.4); ANION GAP 6.6 (7-21); BILIRUBIN, TOTAL 0.2 mg/dL (0.2-1.0); CALCIUM 7.9 mg/dL (8.5-10.1); CREATININE, SERUM 0.44 mg/dL (0.55-1.02); MAGNESIUM 1.4 mg/dL (1.8-2.4); PHOSPHORUS, INORGANIC 1.8 mg/dL (2.5-4.9); POTASSIUM 4.6 mmol/L (3.5-5.1); PROTEIN, TOTAL 5.4 g/dL (6.4-8.2)
--- NOTE | 2025-01-24 07:12 | NUR ---
VERBAL REPORT RECEIVED FROM JORDI MARKS. PT RESTS IN BED WITH EYES CLOSED, RESP EVEN AND UNLABORED.
[2025-01-24] MEDS ORDERED: SODIUM PHOSPHATE 30 MMOL in DEXTROSE 5% 250 ML IV ONE (08:00)
[2025-01-24] MEDS ORDERED: MAGNESIUM SULFATE 2 GM/50 ML BAG IV ONE (08:00)
--- NOTE | 2025-01-24 10:17 | NUR ---
PHYSICAL ASSESSMENT COMPLETE. PHYSICAL THERAPY IN ROOM TO WORK WITH PT. PT REQUESTS TO USE BSC FOR BM. PT TO BSC VIA JOSE. PASSES LARGE SOFT BROWN STOOL. TOLERATES ACTIVITY WELL. ROSALINE CARE PROVIDED, CARLOS RITCHIE, CARLOS WATKINS PLACED. PT RESTS IN BED, CALL LIGHT IN REACH. BELONGINGS IN REACH, NO FURTHER REQUESTS AT THIS TIME.
--- NOTE | 2025-01-24 10:37 | NUR ---
DRESSING LOOSE ON LEFT HEEL, REMOVED. NEW DRESSING APPLIED. WOUND BED CLEANSED WITH NS AND PATTED DRY. MEDIHONEY AND BORDERED FOAM APPLIED. PT TOLERATED WELL.
--- NOTE | 2025-01-24 12:23 | NUR ---
PT SITS UP IN BED, AWAKE AND ALERT, EATS LUNCH. CALL LIGHT IN REACH, NO REQUESTS AT THIS TIME.
--- NOTE | 2025-01-24 16:13 | NUR ---
PT RESTS IN BED, ALERT AND AWAKE, AOX4. REPOSITIONED FOR COMFORT. PUREWICK IN PLACE DRAINS YELLOW URINE. DRESSINGS ON SACRUM INTACT. BREIF CLEAN. PT READS ELECTRONIC BOOK ON IPAD. CALL LIGHT IN REACH. NO REQUESTS AT THIS TIME.
--- NOTE | 2025-01-24 19:10 | NUR ---
REPORT REC'D FROM JORDI CAVAZOS. PT NO C/O AT THIS TIME. PT SON AT BEDSIDE.
--- NOTE | 2025-01-24 22:45 | NUR ---
PT RESTING T/O SHIFT. PT INCONTINENT OF STOOL X1, ROSALINE AREA NOTED TO BE RED AND PAINFUL. PUREWICK REPLACED, BARRIER CREAM APPLIED LIBERALLY. SIDERAILS UP X2, CALL MARTIN IN REACH, BED IN LOW POSITION AND LOCKED. PT IS COMANCHE, USING CALL MARTIN APPROPRIATELY.
[2025-01-25] VITALS (9 sets, daily range): BP systolic 107–148; BP diastolic 51–81
--- NOTE | 2025-01-25 01:22 | NUR ---
C/O BUTTOCKS AREA PAIN, MEDICATED WITH NORCO 1 8 PAIN, REPOSITIONED IN BED, IVF INFUSING
--- NOTE | 2025-01-25 01:35 | NUR ---
repostioned in bed, on arjo bed, cooperative with assessment. purewick in place. legs elevated. IVF infusing w/o problems
[2025-01-25 05:43] LABS: BASOPHILS 0.5 % (0-2); EOSINOPHILS 2.5 % (0-6); HEMOGLOBIN 10.4 g/dL (12.0-18.0); LYMPHOCYTES 23.5 % (24-44); MCH 30.5 (27-36); MCHC 33.6 g/dl (30-36); MCV 90.6 fl (81-99); MONOCYTES 9.5 % (0-12); PLATELET COUNT 384 K/uL (140-440); RBC 3.43 M/ul (4.3-5.7); RDW 15.1 (10.5-15.0)
[2025-01-25 06:14] LABS: MAGNESIUM 1.5 mg/dL (1.8-2.4); PHOSPHORUS, INORGANIC 1.8 mg/dL (2.5-4.9)
[2025-01-25 06:15] LABS: ALBUMIN 1.7 g/dL (3.4-5.0); ALBUMIN/GLOBULIN RATIO 0.5 (1.1-2.4); ANION GAP 7.6 (7-21); BILIRUBIN, TOTAL 0.2 mg/dL (0.2-1.0); CALCIUM 7.8 mg/dL (8.5-10.1); CREATININE, SERUM 0.45 mg/dL (0.55-1.02); POTASSIUM 4.6 mmol/L (3.5-5.1); PROTEIN, TOTAL 5.1 g/dL (6.4-8.2)
--- NOTE | 2025-01-25 06:28 | NUR ---
Awake, no c/o pain at this time. Watching tv. pure wick in place. dressings no hcanges. tolerating liquids well. On Arjo bed
--- NOTE | 2025-01-25 07:12 | NUR ---
VERBAL REPORT RECEIVED FROM JORDI MARKS. PT RESTS IN BED WITH EYES CLOSED, RESP EVEN AND UNLABORED.
--- NOTE | 2025-01-25 07:50 | NUR ---
HOURLY ROUNDING. BOARD HAS BEEN UPDATED AND CALL LIGHT PLACED WITHIN REACH
--- NOTE | 2025-01-25 08:00 | NUR ---
Spoke with Sonam from [facility]. She states concern as they are willing to take this pt. They are now told, son may lose the house if pt uses her [place] medicaid. Pt does not qualify for placement with Medicare as she has not had a 60 day break between admission. Sonam states she will need confirmation email showing son will be able to keep the home. I let her know I was told as he is disabled, house would not be required to be put on the market. Following Email sent to [facility]: Rebecca has been in our hospital for four days. I spoke with Sonam from [facility]. Rebecca has exhausted her Medicare Days and cannot return as a Medicare patient. I understand per my conversation with Danielle on Saturday, she has retirement Medicaid. Sonam was concerned to take her as she was told, the house would have to be sold to pay for her care. Yamilka and I had spoken about this it the past. It was my understanding as the son is Disabled, the house would not have to be sold. Can anyone clarify this for me? Sonam will need an email for clarification also. Rebecca is medically stable and can be discharged today.
[2025-01-25] MEDS ORDERED: MAGNESIUM OXIDE 400 MG TABLET PO ONE (08:15)
[2025-01-25] MEDS ORDERED: SODIUM PHOSPHATE 30 MMOL in DEXTROSE 5% 250 ML IV ONE (08:15)
[2025-01-25] MEDS ORDERED: SALINE LOCK FLUSH 5 ML SYR IV PRN (09:15)
[2025-01-25] MEDS ORDERED: MAGNESIUM OXIDE 400 MG TABLET ONE (09:56)
--- NOTE | 2025-01-25 10:02 | NUR ---
HOURLY ROUNDING. PATIENT HAS NO REQUEST, NURSE IS AT BEDSIDE. CALL LIGHT HAS BEEN PLACED WITHIN REACH
--- NOTE | 2025-01-25 11:18 | NUR ---
DRESSING CHANGES TO LEFT HEEL AND SACRAL WOUNDS COMPELTED. JAIRO RECEIVED FOR PAIN MANAGEMENT PRIOR TO PROCEDURE. OLD DRESSING REMOVED FROM LEFT HEEL. WOUND CLEANSED WITH NS AND PATTED DRY. NOTED SLOUGH IN WOUND BASE RECEDING FROM WOUND EDGES DESIRED. WOUND REMAINS OBSURED BY SLOUGH, STILL UNSTAGEABLE AT THIS TIME. MEDI-HONEY APPLIED TO WOUND BASE WITH BORDERED FOAM HEEL DRESSING. BORDERED FOAM HEEL DRESSING APPLIED TO RIGHT HEEL FOR PROTECTION. OLD DRESSING REMOVED FROM SACRAL WOUNDS. NOTED MODERATE AMOUNT OF BROWN TINGED DRAINAGED ON DRESSING. VASE SOAK APPLIED TO WOUNDS AND ALLOWED TO DWELL X10 MINUTES. DEBRISOFT LOLLY USED TO CLEANSE AND REMOVE LOOSE SLOUGH FROM WOUNDS. NOTED ESCHAR AND SLOUGH IN WOUND BASES IS SOFTENING AND LIQUIFYING DESIRED. LOOSE DEBRIDES REMOVED WITH CLEANSING. MID-SACRAL WOUND, EVOLVING DEEP TISSUE PRESSURE INJURY - MAROON/PURPLE AREA HAS OPENEND UP AND ESCHAR HAS SOFTENED, CONTINUES TO EVOLVE AT THIS TIME. PERIWOUND PATTED DRY, CAVILON ADVANCED APPLIED TO PERIWOUND SKIN AND ALLOWED TO DRY. LEFT SACRAL WOUND BASE AND TUNNELING FILLED WITH 1/2" PLAIN PACKING STRIP IMPREGNATED WITH MEDIHONEY. RIGHT SACRAL WOUND FILLED WITH GAUZE IMPREGNATED WITH MEDIHONEY. RIGHT AND LEFT SACRAL WOUNDS COVERED WITH POLYMEM FOAM ALLOWED TO OVERLAP ON TO THE MID-SACRAL WOUND. DRESSING SECURED WITH LARGE BORDERED SACRAL FOAM DRESSING AND 4X4 FOAM DRESSING. PT TOLERATED FAIR. PHOTOS OBTAINED, SEE PAPER CHART. NEXT DRESSING CHANGE DUE Saturday01/27/25. ROSALINE CARE PROVIDED, CARLOS RITCHIE. NEW ROLAND PUT IN PLACE.
--- NOTE | 2025-01-25 13:00 | NUR ---
Received a confirmation email from Danielle Wen and Sonam, pt is accepted. Sonam would like a morning admit. 10:30 works for them. I will contact EMS. In and spoke with Veena. Son, Cruz in the room and states told them they could have their antibiotics at home and they do not plan on dc to [facility]. I called Dr. Laurent and had him on speaker to speak with Rebecca. He explained to Cruz and Rebecca she needs to go to a SNF for wound care on her bottom and IV antibiotics x 4 weeks. Pt states she will go and agrees to EMS transport. SNF orders printed and left for Mehran Nice on his desk. PASRR completed. Pt will need to leave by 9:30 tomorrow.
--- NOTE | 2025-01-25 14:08 | NUR ---
PT NOT AVAILABLE FOR VISIT. PROVIDED PRAYER.
--- NOTE | 2025-01-25 16:10 | NUR ---
ORDER RECEIVED FOR MIDLINE PLACEMENT FOR PROLONGED ANTIBIOTIC TREATMENT. PT AWARE OF PROCEDURE AND GIVES VERBAL CONSENT. PROCEDURE EXPLAINED TO PT. BEDSIDE TABLES WIPED DOWN AND PT PREPPED. VEINS IDENTIFIED WITH ULTRASOUNDS, RIGHT BRACHIAL NOTED TO BE BEST FOR ACCESS AND 20 G CATHETER TO OCCUPY 32% OF VEIN. PT PREPPED AND DRAPED FOLLOWING STERILE TECHNIQUE. SITE NUMBED WITH 1% LIDOCAINE FOR COMFORT, BRACHIAL VEIN ACCESSED WITH 20 G MIDLINE AND VISUALIZED IN THE CENTER OF THE VEIN, GUIDEWIRE DEPLOYED WITHOUT RESISTANCE, BLOOD NOTED IN THE CATHETER. CATHETER THREADED WITHOUT DIFFICULTY, DARK RED, NON PULSATILE BLOOD RETURNED. SALINE LOCK ATTACHED AND FLUSHED WITH 10 ML OF NS WITH POSITIVE BLOOD RETURN. NO DISCOMFORT REPORTED FROM PT. SITE SECURED WITH SECUREMENT DEVICE AND DRESSED WITH STERILE DRESSING. NO CM EXPOSED, ARM CIRM 26 CM JUST ABOVE THE BIOPATCH. PT TOLERATED WELL, REPORT TO Gregory VARGAS RN, LINE IS READY FOR USE.
--- NOTE | 2025-01-25 16:43 | NUR ---
PICC LINE NOW IN PLACE TO RAC.
--- NOTE | 2025-01-25 18:45 | NUR ---
PATIENT IN BED READING AT THIS TIME. VITALS AND I&O'S DONE AND CHARTED. CALL LIGHT IN REACH. NO FURTHER NEEDS AT THIS TIME.
--- NOTE | 2025-01-25 19:25 | NUR ---
C/O 8/10 SACRAL/BUTTOCKS AREA PAIN. MEDICATED IWTH NORCO 1 TAB. pT ROOM AIR, ON arjo BED. HOB ELEVATED.
--- NOTE | 2025-01-25 22:07 | NUR ---
awake, alert and oriented. on room air. lungs clear dim at bases, nbo c/o sob with exertion or CP. Allevyn dressings to LFA, buttocks area and bilat heels. edema noted from pubic area to ankles. LE elevated. Turned and respositioned cooperative, no further c/o pain. Pure wick changed, lotion to redened outer vaginal area. SL LAC and CRYSTAL picc line intat
--- NOTE | 2025-01-25 23:30 | NUR ---
Resting, eyes closed, no s/sx distress. pure wick in place. draining clear yellow with sediments. on ARJO bed
[2025-01-26 04:39] VITALS: BP 142/64
[2025-01-26 04:40] VITALS: BP 142/64
[2025-01-26 04:45] LABS: BASOPHILS 0.9 % (0-2); EOSINOPHILS 3.8 % (0-6); HEMATOCRIT 27.3 % (35.0-50.0); HEMOGLOBIN 9.4 g/dL (12.0-18.0); LYMPHOCYTES 28.2 % (24-44); MCH 31.4 (27-36); MCHC 34.5 g/dl (30-36); MCV 90.9 fl (81-99); MONOCYTES 9.1 % (0-12); PLATELET COUNT 361 K/uL (140-440); RBC 3.01 M/ul (4.3-5.7)
--- NOTE | 2025-01-26 04:57 | NUR ---
Awakens easily, on room air. cooperative with second asessment and vitals. turned and repositioned. daily bed scale 60.5KG. pure wick changed. Allevyn dressings LFA, buttocks, heels area intact. on ARJO bed. no c/o pain . Blood draw from [facility], procedure explained, cooperative
[2025-01-26 04:59] LABS: ALBUMIN 1.5 g/dL (3.4-5.0); ALBUMIN/GLOBULIN RATIO 0.48 (1.1-2.4); ANION GAP 5.4 (7-21); BILIRUBIN, TOTAL 0.2 mg/dL (0.2-1.0); BUN/CREATININE RATIO 19.04 (6.0-28.6); CALCIUM 7.6 mg/dL (8.5-10.1); CREATININE, SERUM 0.42 mg/dL (0.55-1.02); MAGNESIUM 1.4 mg/dL (1.8-2.4); PHOSPHORUS, INORGANIC 2.1 mg/dL (2.5-4.9); POTASSIUM 4.4 mmol/L (3.5-5.1); PROTEIN, TOTAL 4.6 g/dL (6.4-8.2)
--- NOTE | 2025-01-26 06:09 | NUR ---
Resting, eyes closed, no s/sx distress. moves arms
--- NOTE | 2025-01-26 06:16 | NUR ---
c/o buttocks area pain, medicated with 1 norco
--- NOTE | 2025-01-26 07:09 | NUR ---
VERBAL REPORT RECEIVED FROM JORDI MARKS. PT RESTS IN BED AWAKE AND ALERT, READS ON IPAD. NO REQUESTS AT THIS TIME.
--- NOTE | 2025-01-26 08:00 | NUR ---
Texted Dr. Laurent I will need SNF orders this am as pt will be leaving at 9:30.
--- NOTE | 2025-01-26 08:07 | NUR ---
PATIENT IN BED AT THIS TIME. FLAME PLANER CHARTED HOURLY ROUNDS. CALL LIGHT WITHIN REACH, NO FURTHER NEEDS AT THIS TIME.
[2025-01-26 08:21] VITALS: BP 138/60
[2025-01-26 08:28] VITALS: BP 138/60
[2025-01-26] MEDS ORDERED: SOD PHOS MONO/SOD PHOS DIBAS 250 MG TAB PO ONE (08:30)
[2025-01-26] MEDS ORDERED: SODIUM PHOSPHATE 30 MMOL in DEXTROSE 5% 250 ML IV ONE (09:00)
[2025-01-26] MEDS ORDERED: MAGNESIUM SULFATE 2 GM/50 ML BAG IV ONE (09:00)
--- NOTE | 2025-01-26 09:00 | NUR ---
Received a text from pilar Masters, is completing orders now and I will fax as soon as completed.
--- NOTE | 2025-01-26 09:10 | NUR ---
Today I find Rebecca in bed with eyes close, respirations even and unlabored. Rebecca opens eyes with verbal stimuli and soft touch to her arm. She is aware that she is in the hospital, and she is aware that she is scheduled to transport to [facility] and rehab this morning. IMM letter is explained to Rebecca and she signs without further questions. Rebecca voluntarily waived the four hour wait rule as she is aware of her discharge plan which was formulated with her yesterday afternoon. Rebecca denies further questions or needs at this time.
--- NOTE | 2025-01-26 09:20 | NUR ---
Orders, PASRR, RX, dc summary, Midline note, wound care orders faxed to [facility]. Called [facility] as [facility] for [facility].
[2025-01-26] MEDS ORDERED: HYDROCODON-ACE1 EAC8 PO (09:24)
[2025-01-26 09:34] VITALS: BP 119/51
--- NOTE | 2025-01-26 09:35 | NUR ---
PATIENT IN BED RESTING WITH EYES CLOSED AT THIS TIME. VITALS AND I&O'S DONE AND CHARTED. CALL LIGHT IN REACH. NO FURTHER NEEDS AT THIS TIME.
--- NOTE | 2025-01-26 09:39 | NUR ---
Rebecca is provided with a signed copy of her IMM letter which includes her desire to waive the four hour wait time.
--- NOTE | 2025-01-26 10:23 | NUR ---
EMS ARRIVES TO TRANSPORT PT. SON IN ROOM. PT TRANSFERRED TO STRETCHER VIA DRAW SHEET TOLERATES THIS WELL. BELONGINGS TAKEN BY SON AND ONE BAG SENT WITH EMS. PT LEAVES UNIT VIA STRETCHER WITH EMS.
--- NOTE | 2025-01-26 10:28 | NUR ---
CALLED [facility] AND [facility] TO GIVE REPORT, NO ANSWER.
--- NOTE | 2025-01-26 10:45 | NUR ---
PT LEFT SHEET PILE HAMMER OPERATOR BEHIND. SHEET PILE HAMMER OPERATOR COLLECTED AND LABELED AND SENT TO [facility] THRESHING MACHINE OPERATOR. CALLED SON TO NOTIFY, NO ANSWER AT THIS TIME.
--- NOTE | 2025-01-26 10:48 | NUR ---
SON, SHEREE, CALLS BACK. NOTIFIED THAT THE PT'S DRESSING MACHINE OPERATOR IS AT THE [facility] AND HE CAN PICK IT UP THERE.
== END 2025-01-26 10:27 | DRG 689 ==
LOC: ED 12:52 → MS 16:33
PROVIDERS: Emergency Medicine; ADMIT Family Medicine; ATTEND Family Medicine
DX: N39.0 Urinary tract infection, site not specified (principal); L89.154 Pressure ulcer of sacral region, stage 4; M86.8X8 Other osteomyelitis, other site; M87.852 Other osteonecrosis, left femur; M87.851 Other osteonecrosis, right femur; E44.0 Moderate protein-calorie malnutrition; Z68.1 Body mass index [BMI] 19.9 or less, adult; N17.9 Acute kidney failure, unspecified; R64 Cachexia; Z95.0 Presence of cardiac pacemaker; E87.6 Hypokalemia; E83.42 Hypomagnesemia; E83.39 Other disorders of phosphorus metabolism; D64.9 Anemia, unspecified; K52.9 Noninfective gastroenteritis and colitis, unspecified; I48.91 Unspecified atrial fibrillation; F39 Unspecified mood [affective] disorder; B95.61 Methicillin susceptible Staphylococcus aureus infection as the cause of diseases classified elsewhere; I25.10 Atherosclerotic heart disease of native coronary artery without angina pectoris; I11.0 Hypertensive heart disease with heart failure; I50.9 Heart failure, unspecified; I25.2 Old myocardial infarction; M54.9 Dorsalgia, unspecified; Z86.73 Personal history of transient ischemic attack (TIA), and cerebral infarction without residual deficits; Z90.49 Acquired absence of other specified parts of digestive tract; Z90.710 Acquired absence of both cervix and uterus; Z90.89 Acquired absence of other organs; Z98.890 Other specified postprocedural states; Z88.0 Allergy status to penicillin; Z88.2 Allergy status to sulfonamides; Z88.5 Allergy status to narcotic agent; Z79.01 Long term (current) use of anticoagulants; Z79.899 Other long term (current) drug therapy
CPT/HCPCS: 36415; 36569; 36592; 74177; 80048; 80053; 81001; 83735; 84100; 85025; 85610; 85651; 86140; 87040; 87088; 96366; 97162; 97166; 97530; 97535; 99285-25; A9270; C1751; J0696; J0878; J3475; J7030; J7060; Q9967